=== PATIENT | female | born 1950 | race African-American/Black ===

== ENCOUNTER 2023-07-10 17:11 | Outpatient (NON) | payer MEDICARE, BC, OTHER, SELFPAY ==
[2023-07-10 18:02] LABS: Hemoglobin 8.7 g/dL (12.0-15.0); Mean Corpuscular HGB Conc 31.1 g/dl (32-36); Mean Corpuscular Hemoglobin 28.8 pg (26-34); Mean Corpuscular Volume 92.7 fl (80-100); Mean Platelet Volume 10.6 fl (7.4-10.4); Platelet Count Result 191 k/mm3 (150-375); Red Blood Count 3.02 M/mm3 (4.2-5.4); Red Cell Distribution Width 17.6 % (11.5-14.5); White Blood Count 7.2 K/mm3 (4.5-10.0)
[2023-07-10 18:29] LABS: Alanine Aminotransferase 40 U/L (6-35); Albumin Level 2.8 g/dL (3.5-5.1); Alkaline Phosphatase 90 U/L (38-126); Anion Gap 7 mmol/L (8-16); Aspartate Amino Transferase 50 U/L (14-36); Bilirubin,Total 0.7 mg/dL (0.2-1.3); Blood Urea Nitrogen 22 mg/dL (7-17); CRP 5.2 mg/dL (<1.0); Calcium 7.5 mg/dL (8.4-10.2); Carbon Dioxide 26 mmol/L (22-30); Chloride 104 mmol/L (98-107); Estimated Glomerular Filt Rate 59; Glucose 89 mg/dL (65-110); Potassium 3.1 mmol/L (3.4-5.0); Sodium 137 mmol/L (137-145)
[2023-07-10 18:58] LABS: Band Neutrophils Percent 4 % (0-6); Eosinophils Absolute Manual 0.14 K/mm3 (0.02-0.5); Eosinophils Percent Manual 2 % (0-4); Lymphocytes Absolute Manual 1.44 K/mm3 (1.1-4.5); Monocytes Percent Manual 25 % (3-9); Neutrophils Absolute Manual 3.81 K/mm3 (1.7-7.2); Neutrophils Percent Manual 49 % (46-73); Total Cells Counted 100
[2023-07-10 18:59] LABS: Anisocytosis 2+ (NORMAL); Hypochromasia 1+ (NORMAL); Platelet Estimate Adequate (Adequate); Schistocytes None Seen (NORMAL)
[2023-07-10 19:02] LABS: Erythrocyte Sedimentation Rate 118 mm/hr (0-20)
== END 2023-07-10 17:12 | disposition home or self-care (01) ==
LOC: ANHLAB 17:27 → HOME HLTH 17:29
DX: M00.861 Arthritis due to other bacteria, right knee (principal)
CPT/HCPCS: 80053; 80202; 85025; 85652; 86140

== ENCOUNTER 2023-07-18 07:46 | Emergency (ER) | payer MEDICARE, BC, OTHER, SELFPAY ==
[2023-07-18] VITALS (12 sets, daily range): BP systolic 130–180; BP diastolic 79–98; PULSE 65–90; RESP 9–28; TEMP 36.8; O2SAT 96–100
--- NOTE | ~2023-07-18 | XR_ITS ---
Portable chest x-ray Comparison: 08/27/2019 Clinical History: Cough Findings: Left-sided Mediport in satisfactory position. Lungs are clear, without focal consolidation or pleural effusion. Cardiomediastinal silhouette is stable. Bones and soft tissues are unremarkabl e. Impression: Clear lungs. Left-sided Mediport. Reviewed, dictated and finalized at location . Impression: Clear lungs. Left-sided Mediport.
--- NOTE | ~2023-07-18 | CT_ITS ---
EXAMINATION: CTA chest PE abdomen pel DATE: 07/18/2023 13:17 INDICATION: Shortness of breath. COVID. Elevated d-dimer. TECHNIQUE: Computed tomography (CT) pulmonary angiogram of the chest was performed with 100 mL Omnipa que-350 intravenous contrast. Additional 3D reconstructions utilizing coronal maximum intensity proje ction (MIP) were performed. CT of the abdomen and pelvis was performed with intravenous contrast util izing the same contrast bolus following a short delay. Automated exposure control and iterative recon struction technique were employed. The dose-length product was 1041.96 mGy-cm. COMPARISON: Chest CT dated 09/06/[address] chest, abdomen and pelvis dated 07/10/2016 FINDINGS: Chest: Good contrast opacification of the pulmonary arteries. There is mild streak artifact from dense contr ast in the superior vena cava and right atrium. No significant motion artifact yielding diagnostic qu ality study which demonstrates no pulmonary embolism. There is volume loss in the left lower lobe wit h discoid atelectasis and medial sided compressive atelectasis along the tortuous thoracic aorta. The re are some additional mild discoid atelectasis left lower lobe and mild peripheral atelectasis/scarr ing at the posterior medial right lower lobe. Unchanged 5 mm pleural-based nodule at the posterolater al right lower lobe. No pneumonia, pulmonary edema or pleural effusion. Heart size is normal. Atheros clerotic coronary artery calcification. No pericardial effusion. Left internal jugular central venous port catheter with distal tip in the right atrium. Thoracic aorta is normal in caliber with no disse ction. No pathologically enlarged thoracic lymphadenopathy. Likely benign subcentimeter hypodense lef t thyroid nodule. Moderate thoracic spondylosis with bridging osteophytes at multiple levels consiste nt with diffuse idiopathic skeletal hyperostosis (DISH). Lower cervical anterior spinal fusion with a nterior plate and screw fixation at C5-C7. Abdomen/pelvis: Approximately 2.6 x 2.0 cm geographic region of relatively decreased attenuation along the right port a hepatis most likely related to focal fat. Additional small region of likely focal fat along the lig amentum teres. Subtle small foci of increased attenuation along the dependent wall of the otherwise n ormal-appearing gallbladder likely representing sludge or gallstones. Spleen, pancreas and bilateral adrenal glands are normal. Multiple bilateral nonobstructing renal stones with at least 5 in the left kidney and 8 at the right kidney measuring up to 3 mm maximal diameter. No hydronephrosis or evident stones along the ureters. There are multiple bilateral renal cysts the largest on the right measurin g up to 2.2 cm. Bladder is normal. Sigmoid diverticulosis without adjacent inflammatory change to sug gest diverticulitis. Small bowel and appendix are normal. The uterus is not identified and has likely been surgically resected. No free intraperitoneal gas or fluid. No pathologically enlarged abdominal or pelvic lymphadenopathy. Severe lumbar spondylosis with combined instrumented anterior and posteri or L4-S1 spinal fusion with bilateral vertical dov and pedicle screw fixation. Mild to moderate bilat eral hip osteoarthritis. IMPRESSION: 1. Mild atelectasis in the bilateral lower lungs. No pulmonary embolism or other acute cardiopulmonar y disease. 2. Bilateral nonobstructing nephrolithiasis. 3. Suggestion of sludge or gallstones along the dependent aspect of the otherwise normal-appearing ga llbladder. 4. Mild sigmoid diverticulosis. Reviewed, dictated and finalized at location A. IMPRESSION: 1. Mild atelectasis in the bilateral lower lungs. No pulmonary embolism or othe r acute cardiopulmonary disease. 2. Bilateral nonobstructing nephrolithiasis. 3.
--- NOTE | 2023-07-18 10:34 | ECG_ITS ---
Measurements Intervals [place] Rate: 74 P: 15 [place]: 167 QRS: -7 QRSD: 94 T: 14 QT: 406 QTc: 453 Interpretive Statements SINUS RHYTHM VOLTAGE CRITERIA FOR LVH [MEETS CRITERIA IN ONE OF: R(aVL), S(V1), R(V5), R(V5/V6)+S(V1)] OTHERWISE NORMAL ELECTROCARDIOGRAM NO PREVIOUS ECG AVAILABLE FOR COMPARISON Electronically Signed On 07-18-2023 12:19:31 CDT by Donovan Carpenter M.D.
--- NOTE | 2023-07-18 12:09 | ED.NAVMDI ---
HPI - Nausea/Vomiting/Diarrhea General Chief complaint: Nausea/Vomiting/Diarrhea Stated complaint: N/V Time Seen by Provider: 07/18/23 11:07 Source: patient and RN notes reviewed Mode of arrival: ambulatory Limitations: no limitations History of Present Illness HPI Narrative: This is a 73 year old female with history of rheumatoid arthritis who presents for evaluation of nausea and vomiting. Patient states 1 week ago she was admitted after diagnosis of COVID. She states she was discharged from [facility] but she thinks she was discharged too soon. She has come to ER due to nausea, vomiting and diarrhea for 2 days. She reports mid abdominal pain and shortness of breath as well. She denies chest pain. She reports she was not discharged on medication for covid. She was discharged with a PICC line and it was removed yesterday. She is currently on linezolid oral because her IV doses stopped when PICC line was removed. Related Data Allergies Allergy/AdvReac Type Severity Reaction Status Date / Time acetaminophen Allergy Unknown Unknown Verified 07/18/23 11:38 amlodipine Allergy Unknown Unknown Verified 07/18/23 11:38 banana Allergy Unknown Unknown Verified 07/18/23 11:38 dextromethorphan Allergy Unknown Unknown Verified 07/18/23 11:38 latex Allergy Unknown Unknown Verified 07/18/23 11:38 lisinopril Allergy Unknown Unknown Verified 07/18/23 11:38 Penicillins Allergy Unknown Unknown Verified 07/18/23 11:38 prednisone Allergy Unknown Unknown Verified 07/18/23 11:38 pseudoephedrine Allergy Unknown Unknown Verified 07/18/23 11:38 tetracycline Allergy Unknown Unknown Verified 07/18/23 11:38 tree nut Allergy Unknown Unknown Verified 07/18/23 11:38 aspirin AdvReac Unknown Nausea and Verified 07/18/23 11:38 Vomiting Review of Systems Constitutional: Constitutional: Reports fatigue and Reports weakness Cardiovascular: Cardiovascular: Denies syncope, Denies rapid heart rate, Denies irregular heart rhythm, Reports leg edema and Reports dyspnea Respiratory: Respiratory: Denies chest congestion, Reports cough, Denies hemoptysis, Denies excessive phlegm production and Reports dyspnea Gastrointestinal: Gastrointestinal: Reports abdominal pain, Denies hematochezia, Reports diarrhea, Reports nausea and Reports vomiting Genitourinary: Genitourinary: Denies hematuria and Denies dysuria Musculoskeletal: Musculoskeletal: Denies joint swelling, Denies loss of height and Denies muscle weakness Neurologic: Denies syncope, Denies focal weakness and Denies weakness PMFSH Past Medical History Medical History (Updated 07/18/23 @ 15:39 by Dianne Pollock MD) DVT (deep venous thrombosis) Hyperlipidemia Hypertension Rheumatoid arthritis Surgical History Surgical History (Updated 07/18/23 @ 12:15 by Dianne Pollock MD) H/O: hysterectomy Social History Social History (Updated 07/18/23 @ 12:15 by Dianne Pollock MD) Smoking status: Never smoker Exam Const: General: no acute distress, alert and ill appearing Orientation/consciousness: patient oriented x3 HENMT: Head: normal to inspection Face and sinus: normal facial exam Throat: posterior oropharynx normal and uvula midline Eyes: EOM: EOMs intact bilaterally Chest: Chest palpation & inspection: normal inspection of the chest Resp: Effort & Inspection: normal respiratory effort Auscultation: clear to auscultation bilaterally Cardio: Rate: regular rate Rhythm: regular rhythm Heart sounds: no murmurs GI: GI Palp: Yes Soft to palpation, Yes Tenderness to palpation present (GI), No Guarding due to palpation present (GI) and No Rigid due to palpation Auscultation: normal bowel sounds Back/Spine/Pelvis: Back: no CVA tenderness Skin: General skin exam: normal color Wounds: no wounds Neuro: General: patient oriented x3, moves all extremities and CN's II-XI intact bilaterally Extrem: General: normal to inspection Psych: Mental Status: mental status grossly
[2023-07-18 12:25] LABS: Basophils Absolute Auto 0.1 K/mm3 (0.0-0.1); Basophils Percent Auto 1.1 % (0.2-1.2); Eosinophils Absolute Auto 0.3 K/mm3 (0-0.3); Eosinophils Percent Auto 2.3 % (0-4.4); Hematocrit 27.8 % (37.0-47.0); Immature Granulocyte Absolute 0.49 K/mm3 (0.00-0.031); Immature Granulocyte Percent A 3.8 % (0-0.5); Lymphocytes Absolute Auto 3.68 K/mm3 (0.9-3.2); Lymphocytes Percent Auto 28.3 % (18.3-44.2); Mean Corpuscular HGB Conc 32.4 g/dl (32-36); Mean Corpuscular Hemoglobin 29.4 pg (26-34); Mean Corpuscular Volume 90.8 fl (80-100); Mean Platelet Volume 10.5 fl (7.4-10.4); Monocytes Absolute Auto 1.7 K/mm3 (0.1-0.6); Monocytes Percent Auto 12.8 % (2.6-8.5); Neutrophils Absolute Auto 6.7 K/mm3 (1.3-6.7); Neutrophils Percent Auto 51.7 % (45.5-73.1); Platelet Count Result 282 k/mm3 (150-375); Red Blood Count 3.06 M/mm3 (4.2-5.4); Red Cell Distribution Width 17.8 % (11.5-14.5)
[2023-07-18] MEDS: ONDANSETRON INJ 4 MG/2 ML VIAL IV PUSH (12:33)
[2023-07-18] MEDS: LACTATED RINGERS 1,000 ML 999 ML IV CONT (12:34)
[2023-07-18 12:35] LABS: Lipase 23 U/L (23-300)
[2023-07-18 12:35] LABS: Lactic Acid Reflex 0.9 mmol/L (0.7-2.0)
[2023-07-18 12:36] LABS: Alanine Aminotransferase 35 U/L (6-35); Albumin Level 3.1 g/dL (3.5-5.1); Alkaline Phosphatase 102 U/L (38-126); Anion Gap 9 mmol/L (8-16); Aspartate Amino Transferase 46 U/L (14-36); Bilirubin,Total 0.6 mg/dL (0.2-1.3); Blood Urea Nitrogen 13 mg/dL (7-17); Calcium 7.3 mg/dL (8.4-10.2); Carbon Dioxide 25 mmol/L (22-30); Chloride 105 mmol/L (98-107); Estimated CRCL calculation 35 ml/min; Estimated Glomerular Filt Rate 49; Glucose 98 mg/dL (65-110); Magnesium 1.3 mg/dL (1.6-2.3); Potassium 3.2 mmol/L (3.4-5.0); Sodium 139 mmol/L (137-145)
[2023-07-18 12:39] LABS: INR 1.1; Prothrombin Time 14.3 Seconds (11.1-14.7)
--- NOTE | 2023-07-18 12:45 | PC.NURSE ---
pt refuses straight cath for urine specimen.
[2023-07-18] MEDS: MAGNESIUM SULF 2 GM/WATER 50ML 2 GM/50 ML BAG IVPB (13:33)
[2023-07-18 13:35] LABS: Appearance Urine Cloudy (Clear); Bacteria Urine None Seen /hpf; Bilirubin Urine Negative (Negative); Color Urine Dark Yellow (Yellow); Glucose Urine UA Negative (Negative); Hyaline Casts Urine Present /lpf; Ketones Urine 1+ mg/dL (Negative); Leukocyte Esterase Ur 1+ LEU/UL (Negative); Nitrate Urine Negative (Negative); Protein Urine 2+ mg/dL (Negative); RBC Urine 0-2 /hpf (0-2); Specific Grav Ur 1.017 (1.001-1.035); Squamous Epithelial Cell Urine Few /hpf (Few); Urobilinogen Urine 0.2 mg/dL (<2.0); WBC Urine 21-50 /hpf; pH Urine 5.5 (5.0-9.0)
[2023-07-18 13:36] LABS: Add Urine Microscopic? YES
[2023-07-18] MEDS: POTASSIUM CHLORIDE 20 MEQ ER TABLET 40 MEQ PO (14:13)
[2023-07-18] MEDS: HEPARIN SODIUM LOCK FLUSH 500 UNITS/5 ML VIAL (16:03)
== END 2023-07-18 16:15 | disposition home or self-care (01) ==
PROVIDERS: Emergency Provider General Practice
DX: K52.9 Noninfective gastroenteritis and colitis, unspecified (principal); E87.6 Hypokalemia; E83.42 Hypomagnesemia; E78.5 Hyperlipidemia, unspecified; I10 Essential (primary) hypertension; M06.9 Rheumatoid arthritis, unspecified; Z86.16 Personal history of COVID-19; Z86.718 Personal history of other venous thrombosis and embolism; Z90.710 Acquired absence of both cervix and uterus; K57.30 Diverticulosis of large intestine without perforation or abscess without bleeding; N20.0 Calculus of kidney
CPT/HCPCS: 36415; 71045; 71275; 74177; 80053; 81001; 83605; 83690; 83735; 85025; 85380; 85610; 85730; 87086; 93005; 96361; 96365; 96375; 99284; A9270; J1642; J2405; J3475; J7120; Q9967

== ENCOUNTER 2023-07-19 19:08 | Outpatient (NON) | payer MEDICARE, BC, OTHER, SELFPAY ==
[2023-07-19 19:51] LABS: Alanine Aminotransferase 31 U/L (14-59); Albumin Level 2.3 g/dL (3.4-5.0); Alkaline Phosphatase 104 U/L (46-116); Anion Gap 11 mmol/L (8-16); Aspartate Amino Transferase 29 U/L (15-37); Bilirubin,Total 0.4 mg/dL (0.00-1.00); Blood Urea Nitrogen 14 mg/dL (7-18); CRP 6.9 mg/dL (0.0-0.9); Calcium 7.7 mg/dL (8.5-10.1); Carbon Dioxide 27 mmol/L (21-32); Chloride 103 mmol/L (98-108); Estimated Glomerular Filt Rate 35; Glucose 120 mg/dL (70-99); Osmolality Calculated 293 mOsm/kg (285-295); Potassium 3.2 mmol/L (3.5-5.1); Sodium 141 mmol/L (136-145); Total Protein 7.4 g/dL (6.4-8.2)
== END 2023-07-19 19:09 | disposition home or self-care (01) ==
LOC: CHSLAB 19:12
DX: M00.861 Arthritis due to other bacteria, right knee (principal)
CPT/HCPCS: 36415; 80053; 86140

== ENCOUNTER → 2023-10-04 12:23 | Outpatient (CLI) | payer MEDICARE, BC, OTHER, SELFPAY ==
--- NOTE | ~2023-10-04 | XR_ITS ---
EXAM: XR hand LT 2V, XR hand RT 2V, XR wrist LT 2V, XR wrist RT 2V DATE: 10/04/2023 13:48 HISTORY: multiple joint pain . COMPARISON: None available. FINDINGS: Decreased mineralization. No fracture or dislocation. No lytic or blastic lesion. Osteoart hritic type degenerative changes in the hands and wrists most notably in the DIP joints of the finger s and interphalangeal joints of the thumbs. Old erosive change in the bilateral ulnar styloids. No ac cynthia erosion or periosteal change. Soft tissues within normal limits. IMPRESSION: Polyarticular osteoarthritis. No radiographic findings of active inflammatory arthropathy . Reviewed, dictated and finalized at location K. TRICAL SYSTEMS DRAFTER IMPRESSION: Polyarticular osteoarthritis. No radiographic findings of active in flammatory arthropathy. IMPRESSION: Polyarticular osteoarthritis. No radiographic findings of active in flammatory arthropathy. IMPRESSION: Polyarticular osteoarthritis. No radiographic findings of active in flammatory arthropathy.
--- NOTE | ~2023-10-04 | XR_ITS ---
EXAM: XR ankle RT 2V, XR ankle LT 2V DATE: 10/04/2023 13:48 HISTORY: multiple joint pain . COMPARISON: None available. FINDINGS: Decreased mineralization. No fracture or dislocation. No lytic or blastic lesion. Achilles and plantar enthesopathy Mild degenerative change at the ankle joints. No erosion or periosteal [place]. Vascular calcifications. IMPRESSION: No acute osseous finding in the left or right ankles. Reviewed, dictated and finalized at location K. ACE GRINDER IMPRESSION: No acute osseous finding in the left or right ankles.
--- NOTE | ~2023-10-04 | XR_ITS ---
Right foot Technique: AP and lateral views were obtained. Clinical History: Joint pain Findings: No acute fracture or dislocation is seen. Osseous alignment is anatomic. Joint spaces are p reserved without erosive or degenerative change. Soft tissues are unremarkable. Impression: Unremarkable right foot radiographs. Reviewed, dictated and finalized at location . & BOARD DIRECTOR Impression: Unremarkable right foot radiographs.
--- NOTE | ~2023-10-04 | XR_ITS ---
EXAM: XR foot LT 2V DATE: 10/04/2023 13:48 HISTORY: multiple joint pain . COMPARISON: None available. FINDINGS: Decreased mineralization. No fracture or dislocation. No lytic or blastic lesion. Mild sca ttered degenerative change. Achilles and plantar enthesopathy No erosion or periosteal change. Vascul ar calcifications. IMPRESSION: No acute osseous finding in the left foot. Reviewed, dictated and finalized at location K. PERSON
== END ==
DX: M19.042 Primary osteoarthritis, left hand (principal); M19.041 Primary osteoarthritis, right hand; M19.032 Primary osteoarthritis, left wrist; M19.031 Primary osteoarthritis, right wrist; M79.672 Pain in left foot; M79.671 Pain in right foot; M25.572 Pain in left ankle and joints of left foot; M25.571 Pain in right ankle and joints of right foot; M79.10 Myalgia, unspecified site; R53.81 Other malaise
CPT/HCPCS: 73100; 73120; 73600; 73620

== ENCOUNTER 2024-03-12 23:23 | Emergency (ER) | payer MEDICARE, BC, OTHER, SELFPAY ==
--- NOTE | ~2024-03-12 | CT_ITS ---
EXAMINATION: CT brain wo con DATE: 03/12/2024 23:56 INDICATION: fall on eliquis . TECHNIQUE: Computed tomography (CT) of the head was performed without intravenous contrast. The mA wa s adjusted according to patient size. Iterative reconstruction technique was employed. The dose-lengt h product was 605.33 mGy-cm. COMPARISON: 09/06/2019, report only. FINDINGS: No acute intracranial hemorrhage or extra-axial fluid collection. No hydrocephalus, mass, or herniation. No acute ischemic infarct. Unremarkable dural venous sinus attenuation. No acute osseous abnormality. The aerated spaces are clear. Mild atrophy and moderate chronic white matter change. Atherosclerotic intracranial calcification. Bi lateral lens replacements. Bilateral basal ganglia calcification. IMPRESSION: No acute intracranial process. Reviewed, dictated and finalized at location K.
--- NOTE | ~2024-03-12 | CT_ITS ---
EXAMINATION: CT cervical spine wo con DATE: 03/12/2024 23:57 INDICATION: fall on eliquis TECHNIQUE: Computed tomography (CT) of the cervical spine was performed without intravenous contrast. Automated exposure control and iterative reconstruction technique were employed. The dose-length pro duct was 202.36 mGy-cm. COMPARISON: 08/27/2019, report only. FINDINGS: Vertebral Body Alignment: Reversed lordosis, centered at C5. Trace grade 1 retrolisthesis at C2-3, li ana secondary to degenerative change. Minimal grade 1 anterolistheses at C3-4 and C4-5, likely secon markell to degenerative change. Craniocervical and atlantoaxial alignment: Moderate degenerative change. Alignment intact. Osseous structures/fracture: No evidence of a lytic or blastic process in the visualized spine. No e vidence of acute fracture. Uncomplicated appearing ACDF hardware spanning C5-C7 with fused interbody plugs at C5-6 and C6-7. Multilevel facet fusions. Minimal right mastoid fluid. Cervical soft tissues: The paraspinal soft tissues planes are maintained. Degenerative changes: Multilevel degenerative disc disease and facet arthropathy. No severe central c anal or neural foraminal narrowing IMPRESSION: No acute fracture or traumatic malalignment in the cervical spine. Reviewed, dictated and finalized at location K.
[2024-03-12 23:26] VITALS: BP 132/79; PULSE 87; RESP 13; TEMP 36.4; O2SAT 100
[2024-03-13 02:18] VITALS: BP 136/78; PULSE 83; RESP 18; O2SAT 100
--- NOTE | 2024-03-13 04:15 | ED.FALL ---
HPI - Fall General Chief Complaint: Fall Stated Complaint: fall, on eliquis Time Seen by Provider: 03/13/24 04:08 History of Present Illness HPI Narrative: Patient is a 73-year-old female who presents to the emergency department this evening from her recent care facility due to a slip and fall. Patient admits that she caught herself and did not hit her head, however, given that she is on Eliquis facility is required to have the patient evaluated in the emergency department. Patient is currently denying any headaches, dizziness, any neck pain and denies any lightheadedness or syncopal episodes prior to the fall. Patient admits that she remembers the full event and denies any loss of consciousness. No additional symptoms or concerns at this time. Related Data Allergies Allergy/AdvReac Type Severity Reaction Status Date / Time acetaminophen Allergy Unknown Unknown Verified 07/18/23 11:38 amlodipine Allergy Unknown Unknown Verified 07/18/23 11:38 banana Allergy Unknown Unknown Verified 07/18/23 11:38 dextromethorphan Allergy Unknown Unknown Verified 07/18/23 11:38 latex Allergy Unknown Unknown Verified 07/18/23 11:38 lisinopril Allergy Unknown Unknown Verified 07/18/23 11:38 Penicillins Allergy Unknown Unknown Verified 07/18/23 11:38 prednisone Allergy Unknown Unknown Verified 07/18/23 11:38 pseudoephedrine Allergy Unknown Unknown Verified 07/18/23 11:38 tetracycline Allergy Unknown Unknown Verified 07/18/23 11:38 tree nut Allergy Unknown Unknown Verified 07/18/23 11:38 aspirin AdvReac Unknown Nausea and Verified 07/18/23 11:38 Vomiting Review of Systems Review of Systems: All systems are reviewed and are negative unless stated otherwise in the HPI. [facility] Past Medical History Medical History DVT (deep venous thrombosis) Hyperlipidemia Hypertension Rheumatoid arthritis Surgical History Surgical History H/O: hysterectomy Social History Social History Smoking status: Never smoker Exam Narrative: General: Alert, awake, afebrile, in no acute distress. HEENT: PERRL, no rhinorrhea, no post nasal drip, oropharynx clear. Neck: Trachea midline, no JVD, no lymphadenopathy, no midline cervical spine tenderness to palpation. Cardiovascular: Regular rate and rhythm, no murmurs, rubs or gallops, no peripheral edema. Respiratory: Clear to auscultation bilaterally, no tachypnea, no wheezing, no rhonchi, no rubs, no respiratory distress. Abdomen: Soft, nontender, nondistended, no rebound, no guarding, no peritoneal signs. Musculoskeletal: No joint swelling or deformity, normal muscle tone. Skin: No rashes or petechia, no signs of infection. Psychiatric: Alert and oriented, normal behavior and judgment for situation. Neurological: Alert and oriented to person, place, and time. Follows all commands. No focal deficits, speech is clear and fluent. Course Vital Signs Vital signs: Vital Signs Temperature 97.6 F 03/12/24 23:26 Pulse Rate 87 03/12/24 23:26 Respiratory Rate 13 03/12/24 23:26 Blood Pressure 132/79 03/12/24 23:26 Pulse Oximetry 100 03/12/24 23:26 Oxygen Delivery Room Air 03/12/24 23:26 Temperature 97.6 F 03/12/24 23:26 Pulse Rate 83 03/13/24 02:18 Respiratory Rate 18 03/13/24 02:18 Blood Pressure 136/78 03/13/24 02:18 Pulse Oximetry 100 03/13/24 02:18 Oxygen Delivery Room Air 03/12/24 23:26 MDM - Fall MDM Narrative Medical decision making narrative: The patient was evaluated by myself in the emergency department. History is obtained from patient who is an independent historian and physical exam was performed. External medical records were reviewed at this time. Imaging studies obtained included CT brain and cervical spine without IV contrast which was independently interpreted by me revealing no
[2024-03-13 05:12] VITALS: BP 126/65; PULSE 88; RESP 16; O2SAT 97
--- NOTE | 2024-03-13 05:15 | PC.NURSE ---
RN Report given to [place] @ [facility]
--- NOTE | 2024-03-13 05:24 | PC.NURSE ---
Report given to [facility] at this time. No distress noted.
== END 2024-03-13 05:23 ==
PROVIDERS: Emergency Provider Emergency Medicine; PCP Internal Medicine
DX: Z04.3 Encounter for examination and observation following other accident (principal); E78.5 Hyperlipidemia, unspecified; I10 Essential (primary) hypertension; M06.9 Rheumatoid arthritis, unspecified; Z86.73 Personal history of transient ischemic attack (TIA), and cerebral infarction without residual deficits; Z90.710 Acquired absence of both cervix and uterus; W01.0XXA Fall on same level from slipping, tripping and stumbling without subsequent striking against object, initial encounter
CPT/HCPCS: 70450; 72125; 99284

== ENCOUNTER 2024-04-30 04:15 | Emergency (ER) | payer MEDICARE, BC, OTHER, SELFPAY ==
[2024-04-30] VITALS (36 sets, daily range): BP systolic 139–171; BP diastolic 80–111; PULSE 85–94; RESP 13–35; TEMP 36.2–37.3; O2SAT 97–100
--- NOTE | ~2024-04-30 | XR_ITS ---
Right foot Technique: AP, oblique, and lateral views were obtained. Clinical History: Trauma Findings: No acute fracture or dislocation is seen. Osseous alignment is anatomic. Joint spaces are p reserved without erosive or degenerative change. Soft tissues are unremarkable. Impression: Unremarkable right foot radiographs. Reviewed, dictated and finalized at location . Impression: Unremarkable right foot radiographs.
--- NOTE | ~2024-04-30 | CT_ITS ---
Non-contrast Head CT History: Weakness COMPARISON: 03/12/2024 Technique: Axial non-contrast imaging of the brain was performed. Dose reduction technique was used on this scan by utilizing automated exposure control and iterative reconstruction technique. The dose -length product (DLP) was 605.33 mGy-cm. Findings: There is no evidence of intracranial hemorrhage, mass lesion, or acute infarct. Brain par enchyma appears normal. The ventricles and subarachnoid spaces are normal in size. The calvarium ap pears normal. The visualized paranasal sinuses and mastoid air cells are clear. Impression: No significant abnormality seen. Reviewed, dictated and finalized at location . Impression: No significant abnormality seen.
--- NOTE | ~2024-04-30 | XR_ITS ---
Portable chest x-ray Comparison: 07/18/2023 Clinical History: Weakness Findings: Left-sided Mediport is unchanged. Lungs are clear, without focal consolidation or pleural effusion. Cardiomediastinal silhouette is stable. Bones and soft tissues are unremarkable, aside fro m cervical fixation hardware. Impression: Clear lungs. Stable left-sided Mediport. Reviewed, dictated and finalized at location . Impression: Clear lungs. Stable left-sided Mediport.
--- NOTE | ~2024-04-30 | XR_ITS ---
AP view of the pelvis Clinical history: Pain Findings: No acute fracture or dislocation is seen. Osseous alignment is anatomic. Bilateral hip and SI joint spaces are preserved. Lumbosacral spinal fixation hardware is present. Soft tissues are unre markable. Impression: No acute abnormality seen. Lumbosacral spinal fixation hardware. Reviewed, dictated and finalized at location . Impression: No acute abnormality seen. Lumbosacral spinal fixation hardware.
--- NOTE | ~2024-04-30 | XR_ITS ---
EXAM: XR knee RT 3V DATE: 04/30/2024 18:09 HISTORY: fall . COMPARISON: None available. FINDINGS: Decreased mineralization. No fracture or dislocation. No lytic or blastic lesion. Moderate osteoarthritic arthritis. Quadriceps enthesopathy. No erosion or periosteal change. Large volume lee nt fluid. Vascular calcification. IMPRESSION: No acute osseous finding in the right knee. Large right knee joint effusion. Reviewed, dictated and finalized at location K.
--- NOTE | ~2024-04-30 | XR_ITS ---
EXAM: XR knee LT 3V DATE: 04/30/2024 18:08 HISTORY: fall . COMPARISON: None available. FINDINGS: Decreased mineralization. No osseous fracture or dislocation. No lytic or blastic lesion. Left total knee arthroplasty hardware. No hardware fracture. Abnormal perihilar hardware lucency surr ounding the stem of the femoral component, measuring up to 4 mm. No erosion or periosteal change. Vas cular calcifications. Moderate joint fluid. IMPRESSION: No acute osseous or hardware fracture. Perihilar hardware lucency at the femoral stem which can accompany loosening or infection. Recommend comparison to outside studies. Moderate volume joint fluid. Reviewed, dictated and finalized at location K.
--- NOTE | 2024-04-30 04:41 | ECG_ITS ---
Test Date: 2024-04-30 04:23:25 Measurements Intervals [place] Rate: 88 P: 24 CT: 150 QRS: -2 QRSD: 90 T: 15 QT: 365 QTc: 443 Interpretive Statements SINUS RHYTHM MODERATE VOLTAGE CRITERIA FOR LVH, CONSIDER NORMAL VARIANT [MEETS CRITERIA IN ONE OF: R(aVL), S(V1), R(V5), R(V5/V6)+S(V1)] No previous ECG available for comparison Electronically Signed On 04-30-2024 10:53:22 CDT by Pamella Collado M.D.
--- NOTE | 2024-04-30 04:43 | ED.GENADULT ---
HPI - General Adult General Chief complaint: Weakness <Donovan Esposito MD - Last Filed: 04/30/24 06:53> Stated complaint: gen weakness, warm to touch <Donovan Esposito MD - Last Filed: 04/30/24 06:53> Time Seen by Provider: 04/30/24 04:24 <Donovan Esposito MD - Last Filed: 04/30/24 06:53> Source: patient <Donovan Esposito MD - Last Filed: 04/30/24 06:53> Mode of arrival: ambulatory <Donovan Esposito MD - Last Filed: 04/30/24 06:53> Limitations: no limitations <Donovan Esposito MD - Last Filed: 04/30/24 06:53> History of Present Illness HPI narrative: 73-year-old female presenting after multiple falls over the last 10 days or so. Has been feeling very weak whenever she stands up and has been calling 911 for lift assist almost daily for the last 10 days. Finally she decided To come be evaluated. She says she feels generally weak when she stands up that that causes her does fall down. Does not feel lightheaded. No nausea or vomiting. Had 1 episode diarrhea. <Donovan Esposito MD - Last Filed: 04/30/24 06:53> Related Data Allergies/adverse reactions: Allergies Allergy/AdvReac Type Severity Reaction Status Date / Time acetaminophen Allergy Unknown Unknown Verified 04/30/24 07:23 amlodipine Allergy Unknown Unknown Verified 04/30/24 07:23 banana Allergy Unknown Unknown Verified 04/30/24 07:23 dextromethorphan Allergy Unknown Unknown Verified 04/30/24 07:23 latex Allergy Unknown Unknown Verified 04/30/24 07:23 lisinopril Allergy Unknown Unknown Verified 04/30/24 07:23 Penicillins Allergy Unknown Unknown Verified 04/30/24 07:23 prednisone Allergy Unknown Unknown Verified 04/30/24 07:23 pseudoephedrine Allergy Unknown Unknown Verified 04/30/24 07:23 tetracycline Allergy Unknown Unknown Verified 04/30/24 07:23 tree nut Allergy Unknown Unknown Verified 04/30/24 07:23 aspirin AdvReac Unknown Nausea and Verified 04/30/24 07:23 Vomiting <Donovan Esposito MD - Last Filed: 04/30/24 06:53> Review of Systems Review of Systems: All systems reviewed & are unremarkable except as noted in HPI and below <Donovan Esposito MD - Last Filed: 04/30/24 06:53> [facility] Past Medical History Medical History: Medical History DVT (deep venous thrombosis) Hyperlipidemia Hypertension Rheumatoid arthritis <Donovan Esposito MD - Last Filed: 04/30/24 06:53> Surgical History Surgical History: Surgical History H/O: hysterectomy <Donovan Esposito MD - Last Filed: 04/30/24 06:53> Social History Social History: Social History Smoking status: Never smoker <Donovan Esposito MD - Last Filed: 04/30/24 06:53> Exam Narrative: Constitutional: Generally well appearing, no acute distress Head: Atraumatic, no deformities. Eyes: Pupils equal, round, and reactive to light. Neck: Supple, no tracheal deviation, no JVD. ENMT: Mucous membranes moist Cardiovascular: S1, S2 auscultated. No murmurs, rubs, or gallops. No S3/S4. Normal Distal pulses. No peripheral edema. Respiratory: Lung sounds equal. No wheezes, rales, or rhonchi. Gastrointestinal: Abdomen was soft and non-tender. Non-distended. No rebound or guarding. Genitourinary: Deferred Musculoskeletal: Normal muscle tone and bulk. No obvious deformities or tenderness over extremities. Skin: No rashes. Neurological: Strength 5/5 in extremities. Cranial nerves I-XII grossly intact. Distal sensation intact. Mental Status: Awake, alert and oriented x3. Follows commands <Donovan Esposito MD - Last Filed: 04/30/24 06:53> Course Course Emergency Course: had discussion with patient about placement is facility. She has no interest as she just went home from one. Pt says she has home health coming next week to assist her. <Josephine
[2024-04-30 04:58] LABS: Basophils Absolute Auto 0.1 K/mm3 (0.0-0.1); Basophils Percent Auto 0.7 % (0.2-1.2); Eosinophils Absolute Auto 0.2 K/mm3 (0-0.3); Eosinophils Percent Auto 2.1 % (0-4.4); Hematocrit 23.7 % (37.0-47.0); Hemoglobin 7.4 g/dL (12.0-15.0); Immature Granulocyte Absolute 0.15 K/mm3 (0.00-0.031); Immature Granulocyte Percent A 1.7 % (0-0.5); Lymphocytes Absolute Auto 2.55 K/mm3 (0.9-3.2); Lymphocytes Percent Auto 29.7 % (18.3-44.2); Mean Corpuscular HGB Conc 31.2 g/dl (32-36); Mean Corpuscular Hemoglobin 28.7 pg (26-34); Mean Corpuscular Volume 91.9 fl (80-100); Mean Platelet Volume 8.9 fl (7.4-10.4); Monocytes Absolute Auto 0.9 K/mm3 (0.1-0.6); Monocytes Percent Auto 9.9 % (2.6-8.5); Neutrophils Absolute Auto 4.8 K/mm3 (1.3-6.7); Neutrophils Percent Auto 55.9 % (45.5-73.1); Platelet Count Result 480 k/mm3 (150-375); Red Blood Count 2.58 M/mm3 (4.2-5.4); Red Cell Distribution Width 14.8 % (11.5-14.5); White Blood Count 8.6 K/mm3 (4.5-10.0)
[2024-04-30 05:08] LABS: Alanine Aminotransferase 9 U/L (6-35); Albumin Level 3.2 g/dL (3.5-5.1); Alkaline Phosphatase 83 U/L (38-126); Anion Gap 6 mmol/L (4-12); Aspartate Amino Transferase 29 U/L (14-36); Bilirubin,Total 0.7 mg/dL (0.2-1.3); Blood Urea Nitrogen 17 mg/dL (7-17); Calcium 9.1 mg/dL (8.4-10.2); Carbon Dioxide 23 mmol/L (22-30); Chloride 106 mmol/L (98-107); Estimated CRCL calculation 75 ml/min; Estimated Glomerular Filt Rate > 60; Glucose 112 mg/dL (65-110); Lipase 25 U/L (23-300); Potassium 3.1 mmol/L (3.4-5.0); Sodium 135 mmol/L (137-145)
[2024-04-30 05:09] LABS: INR 1.5; Prothrombin Time 18.7 Seconds (11.1-14.7)
[2024-04-30 05:10] LABS: Partial Thromboplastin Time 44.4 Seconds (22.3-36.8)
[2024-04-30 05:19] LABS: NT Pro B Type Natriuretic Pept 125 pg/mL (19.9-100); Troponin I 0.022 ng/mL (0.000-0.034)
[2024-04-30] MEDS: POTASSIUM CHLORIDE 20 MEQ ER TABLET 40 MEQ PO (06:40)
[2024-04-30 07:01] LABS: Appearance Urine Clear (Clear); Bacteria Urine None Seen /hpf; Bilirubin Urine Negative (Negative); Blood Urine Negative (Negative); Color Urine Yellow (Yellow); Glucose Urine UA Negative (Negative); Ketones Urine Trace mg/dL (Negative); Leukocyte Esterase Ur Negative LEU/UL (Negative); Mucus Urine Present /lpf; Nitrate Urine Negative (Negative); Protein Urine 1+ mg/dL (Negative); RBC Urine 0-2 /hpf (0-2); Squamous Epithelial Cell Urine None Seen /hpf (Few); WBC Urine 0-5 /hpf (0-3); pH Urine 5.5 (5.0-9.0)
[2024-04-30 07:05] LABS: Add Urine Microscopic? YES
[2024-04-30] MEDS: KETOROLAC 15 MG/ML VIAL (*BKC) IV PUSH (07:37)
--- NOTE | 2024-04-30 11:14 | PC.NURSE ---
REPORT TO CARLOS MEZA. CARE TRANSFERRED
[2024-04-30] MEDS: SODIUM CHLORIDE 0.9% IV 250 ML 30 ML IV CONT (15:16)
[2024-04-30] MEDS: fentaNYL CITRATE INJ (*CRX) 100 MCG/2 ML VIAL 25 MCG IV PUSH (15:18)
== END 2024-04-30 19:27 | disposition home or self-care (01) ==
PROVIDERS: Emergency Medicine; Emergency Provider Emergency Medicine; PCP Internal Medicine
DX: R53.1 Weakness (principal); R29.6 Repeated falls; I10 Essential (primary) hypertension; E78.5 Hyperlipidemia, unspecified; M06.9 Rheumatoid arthritis, unspecified; Z96.652 Presence of left artificial knee joint; Z86.718 Personal history of other venous thrombosis and embolism; Z90.710 Acquired absence of both cervix and uterus; Z79.01 Long term (current) use of anticoagulants; Z79.899 Other long term (current) drug therapy; R93.6 Abnormal findings on diagnostic imaging of limbs
CPT/HCPCS: 36415; 36430; 70450; 71045; 72170; 73562; 73630; 80053; 81001; 83690; 83880; 84484; 85025; 85610; 85730; 86850; 86860; 86870; 86880; 86900; 86901; 86902; 86922; 93005; 96361; 96374; 96375; 99285; A9270; J1885; J3010; J7050; P9016

== ENCOUNTER 2024-04-30 21:59 | Observation (INO) | payer MEDICARE, BC, OTHER, SELFPAY ==
--- NOTE | ~2024-04-30 | CT_ITS ---
CT OF right knee EXAMINATION: CT knee RT wo con DATE: 04/30/2024 22:50 INDICATION: Right knee pain TECHNIQUE: Computed tomography (CT) of the right knee was performed without intravenous contrast. Aut omated exposure control and iterative reconstruction technique were employed. The dose-length product was 628.44 mGy-cm. COMPARISON: X-ray right knee, same date FINDINGS: Examination limited by metallic artifact from the contralateral knee arthroplasty hardware. Decreased mineralization. No fracture. Lateral subluxation of the patella. Severe medial joint space narrowing. Mild tricompartmental osteophytosis. Large volume knee joint fluid. Atherosclerotic arter ial calcifications. IMPRESSION: No acute osseous finding in the right knee. Osteopenia. Tricompartmental arthritic change, severe in the medial compartment. Large joint effusion. Reviewed, dictated and finalized at location K. IMPRESSION: No acute osseous finding in the right knee. Osteopenia. Tricompartmental arthri tic change, severe in the medial compartment. Large joint effusion.
--- NOTE | ~2024-04-30 | US_ITS ---
EXAMINATION: US knee asp inj w image RT DATE: 05/01/2024 14:57 INDICATION: Right knee infection TECHNIQUE: The procedure including the risks, benefits, and alternatives was discussed with the patie nt. Risks discussed included bleeding, infection and allergic reaction. The patient understood the ri sks and agreed to proceed. A timeout was performed to verify the patient's name, date of , an d procedure to be performed. The skin overlying the suprapatellar pouch of the right joint was prepp ed and draped in usual sterile fashion. Anesthetic was administered with 1% lidocaine subcutaneously . An 18 gauge spinal needle was then advanced into the suprapatellar pouch of the joint space under continuous sonographic guidance.. Multiple attempts at aspiration were made at multiple locations wit hin the suprapatellar pouch which yielded no fluid. The entry site was cleaned and dressed. There we re no immediate complications. FINDINGS: Ultrasound images demonstrate a mild distention of the suprapatellar pouch with central hypoechogenic ity but yielding no fluid consistent with prominent synovitis without a drainable effusion. IMPRESSION: 1. Successful needle access of the suprapatellar pouch of the right knee joint which is mildly disten ded with hypoechoic synovitis but which yielded no fluid on attempted aspiration. Reviewed, dictated and finalized at location A. IMPRESSION: 1. Successful needle access of the suprapatellar pouch of the right knee joint which is mildly distended with hypoechoic synovitis but which yielded no fluid on attempted aspiration.
--- NOTE | ~2024-04-30 | US_ITS ---
BILATERAL LOWER EXTREMITY VENOUS ULTRASOUND Ordering provider: Tiffany Moon APRN History: . R/O DVT/Pain/HX DVT . Comparison: None. FINDINGS: RIGHT LOWER EXTREMITY VEINS: --COMMON FEMORAL: Patent and free of thrombus. Normal compressibility, phasic flow and augmentation. --PROXIMAL SUPERFICIAL FEMORAL: Patent and free of thrombus. Normal compressibility, phasic flow and augmentation. --DISTAL SUPERFICIAL FEMORAL: Patent and free of thrombus. Normal compressibility, phasic flow and au gmentation. --POPLITEAL: Patent and free of thrombus. Normal compressibility, phasic flow and augmentation. --POSTERIOR TIBIAL: Patent and free of thrombus. Normal compressibility, phasic flow and augmentation . LEFT LOWER EXTREMITY VEINS: --COMMON FEMORAL: Patent and free of thrombus. Normal compressibility, phasic flow and augmentation. --PROXIMAL SUPERFICIAL FEMORAL: Patent and free of thrombus. Normal compressibility, phasic flow and augmentation. --DISTAL SUPERFICIAL FEMORAL: Patent and free of thrombus. Normal compressibility, phasic flow and au gmentation. --POPLITEAL: Patent and free of thrombus. Normal compressibility, phasic flow and augmentation. --POSTERIOR TIBIAL: Patent and free of thrombus. Normal compressibility, phasic flow and augmentation . IMPRESSION: Negative bilateral lower extremity venous US. No deep vein thrombosis. Reviewed, dictated and finalized at location A.
--- NOTE | ~2024-04-30 | CT_ITS ---
EXAMINATION: CT pelvis wo con DATE: 04/30/2024 22:44 INDICATION: Right hip pain TECHNIQUE: Computed tomography (CT) of the pelvis was performed without intravenous contrast. Automat ed exposure control and iterative reconstruction technique were employed. The dose-length product was 134.44 mGy-cm. COMPARISON: Pelvis, same date; CTPA with abdomen pelvis 07/18/2023 FINDINGS: Uncomplicated posterior lumbar fusion hardware. Atherosclerotic arterial calcifications. De generative changes in the bilateral SI joints, bilateral hips, and pubic symphysis. No fracture or di slocation. No lytic or blastic lesion. Scattered colonic diverticuli without diverticulosis. IMPRESSION: No acute osseous finding in the pelvis or hips. Reviewed, dictated and finalized at location K.
--- NOTE | ~2024-04-30 | XR_ITS ---
EXAMINATION: XR chest 1V portable Exam Date/Time: 04/30/2024 22:15 CDT HISTORY: Fever Comparison: 04/30/2024 at 5:25 AM. FINDINGS/IMPRESSION: Left chest implanted port remains in stable and good position. No acute cardiopulmonary process detec abdi. Reviewed, dictated and finalized at [facility] K.
[2024-04-30 21:57] VITALS: BP 117/96; PULSE 93; RESP 20; TEMP 38; O2SAT 100
--- NOTE | 2024-04-30 22:27 | ED.WEAKNESS ---
HPI - Weakness General Chief complaint: Weakness Stated complaint: unable to bear weight History of Present Illness HPI Narrative: This is a 73-year-old female, who returns to the emergency department complaining of inability to bear weight on the right side due to pain at the hip and the knee as well as generalized weakness. The patient was seen in this emergency department earlier today. Workup was remarkable for anemia for which she was transfused 1 unit, though imaging and labs are not concerning for fracture or dislocation. The patient complains of severe pain in the right hip and knee. She has no other complaints at this time. Related Data Allergies Allergy/AdvReac Type Severity Reaction Status Date / Time acetaminophen Allergy Unknown Unknown Verified 04/30/24 07:23 amlodipine Allergy Unknown Unknown Verified 04/30/24 07:23 banana Allergy Unknown Unknown Verified 04/30/24 07:23 dextromethorphan Allergy Unknown Unknown Verified 04/30/24 07:23 latex Allergy Unknown Unknown Verified 04/30/24 07:23 lisinopril Allergy Unknown Unknown Verified 04/30/24 07:23 Penicillins Allergy Unknown Unknown Verified 04/30/24 07:23 prednisone Allergy Unknown Unknown Verified 04/30/24 07:23 pseudoephedrine Allergy Unknown Unknown Verified 04/30/24 07:23 tetracycline Allergy Unknown Unknown Verified 04/30/24 07:23 tree nut Allergy Unknown Unknown Verified 04/30/24 07:23 aspirin AdvReac Unknown Nausea and Verified 04/30/24 07:23 Vomiting Review of Systems Review of Systems: All systems reviewed & are unremarkable except as noted in HPI and below PMFSH Past Medical History Medical History DVT (deep venous thrombosis) Hyperlipidemia Hypertension Rheumatoid arthritis Surgical History Surgical History H/O: hysterectomy Social History Social History Smoking status: Never smoker Exam Narrative: GENERAL: Well-developed, well-nourished, in moderate distress due to pain. Warm to touch HEAD: Normocephalic, atraumatic. EYES: PERRLA and EOMI. ENT: Nares clear, no rhinorrhea or epistaxis. Mucous membranes moist. Oropharynx without tonsillar hypertrophy exudate or other lesions. CHEST: Clear to auscultation. No respiratory distress. No wheezes rales or rhonchi HEART: Regular rate and rhythm. No murmur heard. Normal peripheral pulses. ABDOMEN: Soft, nontender, nondistended, normal active bowel sounds. EXTREMITIES: Tender to palpation over the right hip, right knee and right wrist. There is a well-healed midline surgical scar of the right knee. The knee is not erythematous appears mildly swollen. Normal range of motion of all extremities. No edema. SKIN: Warm, dry, no rash. NEURO: Alert and oriented x3. No focal deficit. Moving all 4 limbs spontaneously PSYCH: Normal mood and affect. Course Course Emergency Course: 03:07 - CBC demonstrates white blood cell count elevation of 10.2 with hemoglobin of 8.8 (this is an a appropriate response status post transfusion), platelets 477. Chemistries unremarkable. Given the patient's continued pain, I obtained CTs of the pelvis and right knee. CT of the pelvis not concerning for fracture dislocation, CT of the right knee negative for fracture or dislocation, though does demonstrate a large joint effusion. Arthrocentesis of the right knee demonstrates 92,000 RBCs and 18,000 nucleated cells with neutrophil percentage of 85%. I discussed these findings with orthopedic surgeon, Dr. Brooks. The WBC count is low for a possible septic arthritis. Given the patient's multiple falls and intractable pain, admission was offered to the patient and accepted. I discussed the patient with Dr. Hurd who agrees and accepts admission for observation. Vital Signs Vital signs: Vital Signs Temperature 100.4 F H 04/30/24 21:57 Pulse Rate 93 0
[2024-04-30 22:40] LABS: Basophils Absolute Auto 0.1 K/mm3 (0.0-0.1); Basophils Percent Auto 0.7 % (0.2-1.2); Eosinophils Absolute Auto 0.3 K/mm3 (0-0.3); Eosinophils Percent Auto 2.5 % (0-4.4); Hematocrit 28.1 % (37.0-47.0); Hemoglobin 8.8 g/dL (12.0-15.0); Immature Granulocyte Absolute 0.12 K/mm3 (0.00-0.031); Immature Granulocyte Percent A 1.2 % (0-0.5); Lymphocytes Absolute Auto 2.36 K/mm3 (0.9-3.2); Lymphocytes Percent Auto 23.1 % (18.3-44.2); Mean Corpuscular HGB Conc 31.3 g/dl (32-36); Mean Corpuscular Hemoglobin 27.7 pg (26-34); Mean Corpuscular Volume 88.4 fl (80-100); Mean Platelet Volume 8.8 fl (7.4-10.4); Monocytes Absolute Auto 0.9 K/mm3 (0.1-0.6); Monocytes Percent Auto 8.5 % (2.6-8.5); Neutrophils Absolute Auto 6.5 K/mm3 (1.3-6.7); Platelet Count Result 477 k/mm3 (150-375); Red Blood Count 3.18 M/mm3 (4.2-5.4); Red Cell Distribution Width 16.8 % (11.5-14.5); White Blood Count 10.2 K/mm3 (4.5-10.0)
[2024-04-30] MEDS: IBUPROFEN 400 MG TABLET 800 MG PO (22:56)
[2024-04-30 23:04] LABS: Alanine Aminotransferase 11 U/L (6-35); Albumin Level 3.3 g/dL (3.5-5.1); Alkaline Phosphatase 86 U/L (38-126); Anion Gap 7 mmol/L (4-12); Aspartate Amino Transferase 30 U/L (14-36); Bilirubin,Total 1.4 mg/dL (0.2-1.3); Blood Urea Nitrogen 14 mg/dL (7-17); Calcium 9.1 mg/dL (8.4-10.2); Carbon Dioxide 22 mmol/L (22-30); Chloride 106 mmol/L (98-107); Creatine Kinase 38 U/L (30-135); Estimated CRCL calculation 75 ml/min; Estimated Glomerular Filt Rate > 60; Glucose 105 mg/dL (65-110); Lactate Dehydrogenase 210 U/L (120-246); Potassium 3.9 mmol/L (3.4-5.0); Sodium 135 mmol/L (137-145)
[2024-05-01] VITALS (22 sets, daily range): BP systolic 146–166; BP diastolic 74–106; PULSE 81–97; RESP 16–27; TEMP 35.7–37.7; O2SAT 95–100; BMI 22.8
--- NOTE | 2024-05-01 | ECHO_ITS ---
Patient Info Name: Tiesha Stock Age: 73 years : 1950 Gender: Female Ht: 65 in Wt: 136 lbs BSA: 1.69 m2 HR: 84 bpm BP: 146 / 83 mmHg Heart Rhythm: Sinus Rhythm Technical Quality: Fair Exam Date: 05/01/2024 1:44 PM Exam Location: Echo Lab Patient Status: Inpatient Admit Date: 05/01/2024 Staff Ordering Physician: Tiffany Moon APRN Channel Opener: Eliecer Martinez [facility] Attending Provider: Daniel Hurd MD Referring Physician: Red CACERES; Exam Type: CA echo doppler color flow Study Info Indications I35.0 - Nonrheumatic aortic (valve) stenosis Complete two-dimensional, color flow and Doppler transthoracic echocardiogram is performed. Summary 1. Complete two-dimensional, color flow and Doppler transthoracic echocardiogram is performed. 2. Left ventricular chamber dimension is normal. 3. Left ventricular systolic function is normal, estimated at 60-65%. 4. There is mildly increased left ventricular wall thickness. 5. The left ventricular diastolic function is grade I diastolic dysfunction. 6. Right ventricular systolic function is normal. 7. The atrial septum appears aneurysmal. 8. There is moderate aortic valve calcification. 9. There is mild mitral valve regurgitation. 10. There is mild tricuspid valve regurgitation. Left Ventricle Left ventricular chamber dimension is normal. Left ventricular systolic function is normal, estimated at 60-65%. There is mildly increased left ventricular wall thickness. The left ventricular diastolic function is grade I diastolic dysfunction. Right Ventricle Right ventricular chamber dimension is normal. Right ventricular systolic function is normal. Left Atria Left atrial chamber dimension is normal. Right Atria Right atrial chamber dimension is normal. Atrial Septum The atrial septum appears aneurysmal. Intact interatrial septum visualized by color flow imaging. Aortic Valve The aortic valve is probable trileaflet. There is no aortic valve stenosis. There is no aortic valve regurgitation. There is moderate aortic valve calcification. Pulmonic Valve The pulmonic valve is not well visualized. There is trace pulmonic regurgitation. Mitral Valve There is mild mitral valve regurgitation. The mitral valve annulus is mildly calcified. Tricuspid Valve There is mild tricuspid valve regurgitation. Pericardium/Pleural There is no pericardial effusion. Inferior Vena Cava Normal inferior vena cava with >50% collapse upon inspiration consistent with normal right atrial pressure, 3 mmHg. Aorta The aortic root size at the sinus of Valsalva is normal. Tricuspid Valve Name Value Normal Estimated PAP/RSVP RA Pressure 3 mmHg <=5 Report Signatures
[2024-05-01] MEDS: MORPHINE SULFATE (*CRX) 4 MG/ML INJ IV PUSH (00:13)
[2024-05-01] MEDS: LACTATED RINGERS 1,000 ML 999 ML IV CONT (00:51)
[2024-05-01 01:11] LABS: Appearance Synovial Fluid Bloody (Clear); Color Synovial Fluid Red (Colorless); Source Synovial Fluid Synovial fluid
[2024-05-01 01:19] LABS: Nucleated Cell Synovial Fluid 18146 /uL (0-200)
[2024-05-01 01:38] LABS: RBC Synovial Fluid 92000 /uL (0-0)
[2024-05-01 01:41] LABS: Lymphocytes Synovial Fluid 12 %; Monocytes Synovial Fluid 3 %
[2024-05-01 01:42] LABS: Neutrophils Synovial Fluid 85 % (0-25)
[2024-05-01 02:08] LABS: Crystals Synovial Fluid None Seen (None Seen)
[2024-05-01] MEDS: methylPREDNISolone SOD SUCC 125 MG VIAL IV PUSH (03:09)
[2024-05-01 08:41] LABS: Hematocrit 29.8 % (37.0-47.0); Hemoglobin 9.2 g/dL (12.0-15.0); Mean Corpuscular HGB Conc 30.9 g/dl (32-36); Mean Corpuscular Hemoglobin 27.9 pg (26-34); Mean Corpuscular Volume 90.3 fl (80-100); Mean Platelet Volume 9.3 fl (7.4-10.4); Platelet Count Result 516 k/mm3 (150-375); Red Cell Distribution Width 16.8 % (11.5-14.5); White Blood Count 7.5 K/mm3 (4.5-10.0)
[2024-05-01 08:58] LABS: Alanine Aminotransferase 18 U/L (6-35); Albumin Level 3.2 g/dL (3.5-5.1); Alkaline Phosphatase 127 U/L (38-126); Anion Gap 6 mmol/L (4-12); Aspartate Amino Transferase 49 U/L (14-36); Bilirubin,Total 1.1 mg/dL (0.2-1.3); Blood Urea Nitrogen 14 mg/dL (7-17); Calcium 9.1 mg/dL (8.4-10.2); Carbon Dioxide 23 mmol/L (22-30); Chloride 108 mmol/L (98-107); Estimated CRCL calculation 75 ml/min; Estimated Glomerular Filt Rate > 60; Glucose 131 mg/dL (65-110); Potassium 4.2 mmol/L (3.4-5.0); Sodium 137 mmol/L (137-145)
[2024-05-01] MEDS: PANTOPRAZOLE 40 MG TABLET PO (08:58)
--- NOTE | 2024-05-01 09:36 | PM.CNOR ---
Assessment and Plan Assessment and plan (1) Osteoarthritis of right knee: Code(s): M17.11 - Unilateral primary osteoarthritis, right knee Status: Acute Assessment and Plan: Patient has arthritis right knee. She has had some type of surgery on her RIGHT knee. Sheclaimed it was a knee replacement, however there is no metal in the knee. She may have ruptured her quadriceps tendon. She has a longitudinal incision that is fairly long. At any rate there is an incision that has a small ulceration. Will aspirate the knee and make sure there is no evidence of deep infection. I will see follow her along for that. Her left knee replacement seems to be functioning well and is not painful, discussed. (2) History of knee replacement procedure of left knee: Code(s): Z96.652 - Presence of left artificial knee joint Status: Acute History of Present Illness HPI Consult date: 05/01/24 Chief complaint: Multiple falls Narrative: Patient has pain and swelling of her right knee. She has had left knee replacement done in [place]. And she told me she had a right knee replacement done as well. However the x-rays do not reflect. She does have pain and swelling in the knee. Review of Systems Musculoskeletal: Musculoskeletal: Reports arthralgias, Reports joint swelling and Reports stiffness PMFSH Past Medical History Medical History DVT (deep venous thrombosis) Hyperlipidemia Hypertension Rheumatoid arthritis Surgical History Surgical History H/O: hysterectomy Social History Social History Smoking status: Never smoker Alcohol intake: never Substance use: never Do You Feel Safe in your Home?: Yes Lack of Transportation: No Lack of Food: Never True Current Housing: I Have Housing Concerned About Future Housing: No Difficulty Paying Gas/Electric Bills: No Difficulty Paying for Meds: No Currently Unemployed: No Education: High School Diploma/GED Difficulty w/ Childcare or Family Care: No Spiritual care concerns: No Meds Home Medications and Allergies Home Medications Medication Instructions Recorded Confirmed Type cefuroxime axetil 500 mg tablet 500 mg PO BID 7 days #14 tabs 07/18/23 Rx ondansetron 4 mg disintegrating 4 mg PO Q6H PRN nausea and 07/18/23 Rx tablet vomiting #14 tabs Allergies Allergy/AdvReac Type Severity Reaction Status Date / Time acetaminophen Allergy Unknown Unknown Verified 04/30/24 07:23 amlodipine Allergy Unknown Unknown Verified 04/30/24 07:23 banana Allergy Unknown Unknown Verified 04/30/24 07:23 dextromethorphan Allergy Unknown Unknown Verified 04/30/24 07:23 latex Allergy Unknown Unknown Verified 04/30/24 07:23 lisinopril Allergy Unknown Unknown Verified 04/30/24 07:23 Penicillins Allergy Unknown Unknown Verified 04/30/24 07:23 prednisone Allergy Unknown Unknown Verified 04/30/24 07:23 pseudoephedrine Allergy Unknown Unknown Verified 04/30/24 07:23 tetracycline Allergy Unknown Unknown Verified 04/30/24 07:23 tree nut Allergy Unknown Unknown Verified 04/30/24 07:23 aspirin AdvReac Unknown Nausea and Verified 04/30/24 07:23 Vomiting Vital Signs Vital Signs - 24 hr 04/30/24 21:57 05/01/24 00:51 05/01/24 00:15 Temperature 100.4 F H 99.8 F H Pulse Rate 93 95 97 Respiratory Rate 20 16 23 H Blood Pressure 117/96 H 148/83 H Pulse Oximetry 100 99 Oxygen Delivery Room Air 05/01/24 01:08 05/01/24 01:31 05/01/24 01:32 Temperature Pulse Rate 93 88 91 Respiratory Rate 24 H 24 H 25 H Blood Pressure 160/94 H Pulse Oximetry 100 100 100 Oxygen Delivery 05/01/24 01:47 05/01/24 02:02 05/01/24 02:45 Temperature Pulse Rate 94 94 91 Respiratory Rate 21 H 19 25 H Blood Pressure Pulse Oximetry 100 100 99 Oxygen Delivery 05/01/24
[2024-05-01 10:44] LABS: Glucose Point of Care 202 mg/dl (65-105)
[2024-05-01 11:26] LABS: INR 1.4; Prothrombin Time 17.2 Seconds (11.1-14.7)
[2024-05-01 11:27] LABS: Partial Thromboplastin Time 39.6 Seconds (22.3-36.8)
[2024-05-01 13:01] LABS: Iron 25 ug/dL (37-170)
[2024-05-01 13:10] LABS: Percent Iron Saturation 18 % (20-50)
--- NOTE | 2024-05-01 15:14 | PM.IMHP ---
H&P: HPI History of Present Illness Date/Time: 05/01/24 15:14 Chief Complaint: Weakness/ Can't walk /bilateral hip and knee pain Narrative: Patient is a 73-year-old female who presented to the emergency department earlier that day with complaints weakness bilateral hip pain, bilateral knee pain and inability to walk. Patient in the emergency department refused [facility] facility services and stated she was having home health come out 5 days a week and was discharged home. Patient then returned to the emergency department with same complaints as reported from the ER documentation EMS has been to patient's house over 10 times this week for lift assist. On patient's 1st visit to the emergency department hemoglobin should be 7.4 and she was transfused 1 unit of blood prior to discharge. Patient states she did not fall at home with no injury to her head however does show that she takes Eliquis will discontinue due to frequent recurrent falls risks outweigh the benefits, no overt bleeding noted follow-up HGB 9.2. Patient's initial head CT showed no significant abnormalities, right knee CT did show a large joint effusion, and pelvis CT with no acute osseous findings. Orthopedics were consulted initial joint effusion aspiration completed emergency department and follow-up aspiration by Orthopedics. Patient denied any chest pain, shortness a breath, nausea, vomiting difficulty urinating or defecating. Patient states symptoms have been worsening week and today she was unable to transfer her chair. Patient reports history of DVT, RA, hyperlipidemia, and hypertension. Patient does have a port present which she stated was receiving her RA medications through but has not done so in about a year. Patient was admitted to the medical unit with evaluation PT OT and consult to Orthopedics. Patient is not the best historian he has been at bedside also not a best historian. For patient safety purposes would recommend SNF however the patient is determined to return home. Review of Systems Review of Systems: All systems reviewed & are unremarkable except as noted in HPI and below PMFSH Past Medical History Medical History (Updated 05/01/24 @ 16:26 by Tiffany Moon APRN) DVT (deep venous thrombosis) Hyperlipidemia Hypertension Rheumatoid arthritis Surgical History Surgical History H/O: hysterectomy Social History Social History Smoking status: Never smoker Alcohol intake: never Substance use: never Do You Feel Safe in your Home?: Yes Lack of Transportation: No Lack of Food: Never True Current Housing: I Have Housing Concerned About Future Housing: No Difficulty Paying Gas/Electric Bills: No Difficulty Paying for Meds: No Currently Unemployed: No Education: High School Diploma/GED Difficulty w/ Childcare or Family Care: No Spiritual care concerns: No Meds Home Medications and Allergies Home Medications Medication Instructions Recorded Confirmed Type cefuroxime axetil 500 mg tablet 500 mg PO BID 7 days #14 tabs 07/18/23 05/01/24 Rx ondansetron 4 mg disintegrating 4 mg PO Q6H PRN nausea and 07/18/23 05/01/24 Rx tablet vomiting #14 tabs apixaban 5 mg tablet (Eliquis) 5 mg PO DAILY 05/01/24 05/01/24 History diltiazem HCl 240 mg 240 mg PO DAILY 05/01/24 05/01/24 History tablet,extended release 24 hr duloxetine 20 mg capsule,delayed 20 mg PO DAILY 05/01/24 05/01/24 History release metoprolol tartrate 25 mg tablet 25 mg PO DAILY 05/01/24 05/01/24 History mirtazapine 15 mg tablet 15 mg PO DAILY 05/01/24 05/01/24 History Allergies Allergy/AdvReac Type Severity Reaction Status Date / Time acetaminophen Allergy Unknown Unknown Verified 04/30/24 07:23 amlodipine Allergy Unknown Unknown Verified 04/30/24 07:23 banana Allergy Unknown Unknown Verified 04/30/24 07:23 d
[2024-05-01] MEDS: MIRTAZAPINE 15 MG TABLET PO (16:09)
[2024-05-01] MEDS: METOPROLOL TARTRATE 25 MG TABLET PO (16:09)
[2024-05-01] MEDS: DULoxetine HCL 20 MG CAPSULE.DR PO (16:09)
[2024-05-01] MEDS: dilTIAZem HCL CD 240 MG CAP.24HR PO (16:10)
[2024-05-01 20:25] LABS: Hemoglobin A1C 4.6 % (<5.7)
[2024-05-02 06:00] VITALS: BP 146/74; PULSE 82; RESP 18; TEMP 36.8; O2SAT 100
[2024-05-02 06:38] LABS: Hematocrit 28.3 % (37.0-47.0); Hemoglobin 8.8 g/dL (12.0-15.0); Mean Corpuscular HGB Conc 31.1 g/dl (32-36); Mean Corpuscular Hemoglobin 27.9 pg (26-34); Mean Corpuscular Volume 89.8 fl (80-100); Mean Platelet Volume 9.3 fl (7.4-10.4); Platelet Count Result 597 k/mm3 (150-375); Red Blood Count 3.15 M/mm3 (4.2-5.4); Red Cell Distribution Width 16.2 % (11.5-14.5)
[2024-05-02 07:06] LABS: Alanine Aminotransferase 15 U/L (6-35); Albumin Level 3.2 g/dL (3.5-5.1); Alkaline Phosphatase 109 U/L (38-126); Anion Gap 4 mmol/L (4-12); Aspartate Amino Transferase 26 U/L (14-36); Bilirubin,Total 0.5 mg/dL (0.2-1.3); Blood Urea Nitrogen 25 mg/dL (7-17); Calcium 8.8 mg/dL (8.4-10.2); Carbon Dioxide 23 mmol/L (22-30); Chloride 111 mmol/L (98-107); Estimated CRCL calculation 75 ml/min; Estimated Glomerular Filt Rate > 60; Glucose 154 mg/dL (65-110); Potassium 3.7 mmol/L (3.4-5.0); Sodium 138 mmol/L (137-145)
[2024-05-02 08:08] LABS: Vitamin D 25 Hydroxy 31.6 ng/mL
[2024-05-02] MEDS: MIRTAZAPINE 15 MG TABLET PO (09:56)
[2024-05-02] MEDS: DULoxetine HCL 20 MG CAPSULE.DR PO (09:56)
[2024-05-02] MEDS: IBUPROFEN 400 MG TABLET PO (09:56)
[2024-05-02] MEDS: FERROUS SULFATE 325 MG TABLET DR PO ×2 (09:56→18:04)
[2024-05-02 09:57] VITALS: PULSE 80
[2024-05-02] MEDS: PANTOPRAZOLE 40 MG TABLET PO (09:57)
[2024-05-02] MEDS: METOPROLOL TARTRATE 25 MG TABLET PO (09:57)
[2024-05-02] MEDS: dilTIAZem HCL CD 240 MG CAP.24HR PO (09:58)
[2024-05-02] MEDS: FOLIC ACID 1 MG TABLET PO (09:59)
[2024-05-02 10:24] LABS: Haptoglobin 463 mg/dL (43-212)
[2024-05-02 10:32] VITALS: O2SAT 100
--- NOTE | 2024-05-02 11:26 | P.PNIM_ITS ---
Progress Note: A&P Assessment and Plan (1) Osteoarthritis of right knee: Code(s): M17.11 - Unilateral primary osteoarthritis, right knee Status: Acute (2) Acute pain of right hip: Code(s): M25.551 - Pain in right hip Status: Acute (3) Acute pain of right knee: Code(s): M25.561 - Pain in right knee Status: Acute (4) Multiple falls: Code(s): R29.6 - Repeated falls Status: Acute (5) Effusion of knee joint right: Code(s): M25.461 - Effusion, right knee Status: Acute (6) Rheumatoid arthritis: Code(s): M06.9 - Rheumatoid arthritis, unspecified Status: Acute (7) Hyperlipidemia: Code(s): E78.5 - Hyperlipidemia, unspecified Status: Acute (8) DVT (deep venous thrombosis): Code(s): I82.409 - Acute embolism and thrombosis of unspecified deep veins of unspecified lower extremity Status: Acute (9) Hypertension: Code(s): I10 - Essential (primary) hypertension Status: Acute (10) Osteopenia: Code(s): M85.80 - Other specified disorders of bone density and structure, unspecified site Status: Acute Plan Frequent falls * EMS 10 times in the last week for lift assist * PT/OT * holding Eliquis due to falls * CT pelvis/hip with no fractures * HX RA/OA * CT Head negative for acute issues * HX LT knee replacement RT Knee joint effusion/Knee pain * Orthopedic consulted * aspiration x 2 * synovial fluid pending * PT/OT * pain control * elevation * US BLE to r/o DVT unsure how complaint patient is with her Eliquis acute bilateral Hip pain * CT Pelvis negative for fracture * PT/OT * Pain control * Vitamin-D pending * Ortho consulted * History of OA and RA Anemia-iron deficiency anemia * 7.4 POA * 9.2 after 1 unit of PRBCs transfused * Iron panels pending * Holding Eliquis * Transfuse Hgb <7.0 * Patient with extremely high ferritin secondary to RA * Started on iron supplement HTN * resumed home BB/dilt * BP per unit protocol * adjust as needed * lipid panel pending HX RA: Port present/no longer on treatment HX DVT: Eliquis on hold Code status: Full code per patient DVT prophylaxis: Eliquis/SCDS Stress ulcer prophylaxis: Protonix 40 daily PT/OT notes: Pending Disposition: Patient admitted to the medical unit and for evaluation of inability to walk and recurrent falls at home. Ortho has been consulted and following or knee aspirations PT OT recommendations. Patient has been adamant about returning home states she has home health not willing to go to a skilled n ursing facility. Spoke with patient regarding risks Eliquis 10 falls she will hold for now NC to her primary after rehab. Time Spent With Patient Time with patient: 15 - 25 minutes Subjective Date/time seen: 05/02/24 11:26 Interval history: Admission: Chief Complaint: Weakness/ Can't walk /bilateral hip and knee pain Narrative: Patient is a 73-year-old female who presented to the emergency department earlier that day with complaints weakness bilateral hip pain, bilateral knee pain and inability to walk. Patient in the emergency department refused assisted facility services and stated she was having home health come out 5 days a week and was discharged home. Patient then returned to the emergency department with same complaints as reported from the ER documentation EMS has b
--- NOTE | 2024-05-02 11:26 | PM.IMPN ---
Progress Note: A&P Assessment and Plan (1) Osteoarthritis of right knee: Code(s): M17.11 - Unilateral primary osteoarthritis, right knee Status: Acute (2) Acute pain of right hip: Code(s): M25.551 - Pain in right hip Status: Acute (3) Acute pain of right knee: Code(s): M25.561 - Pain in right knee Status: Acute (4) Multiple falls: Code(s): R29.6 - Repeated falls Status: Acute (5) Effusion of knee joint right: Code(s): M25.461 - Effusion, right knee Status: Acute (6) Rheumatoid arthritis: Code(s): M06.9 - Rheumatoid arthritis, unspecified Status: Acute (7) Hyperlipidemia: Code(s): E78.5 - Hyperlipidemia, unspecified Status: Acute (8) DVT (deep venous thrombosis): Code(s): I82.409 - Acute embolism and thrombosis of unspecified deep veins of unspecified lower extremity Status: Acute (9) Hypertension: Code(s): I10 - Essential (primary) hypertension Status: Acute (10) Osteopenia: Code(s): M85.80 - Other specified disorders of bone density and structure, unspecified site Status: Acute Plan Frequent falls EMS 10 times in the last week for lift assist PT/OT holding Eliquis due to falls CT pelvis/hip with no fractures HX RA/OA CT Head negative for acute issues HX LT knee replacement RT Knee joint effusion/Knee pain Orthopedic consulted aspiration x 2 synovial fluid pending PT/OT pain control elevation US BLE to r/o DVT unsure how complaint patient is with her Eliquis acute bilateral Hip pain CT Pelvis negative for fracture PT/OT Pain control Vitamin-D pending Ortho consulted History of OA and RA Anemia-iron deficiency anemia 7.4 POA 9.2 after 1 unit of PRBCs transfused Iron panels pending Holding Eliquis Transfuse Hgb <7.0 Patient with extremely high ferritin secondary to RA Started on iron supplement HTN resumed home BB/dilt BP per unit protocol adjust as needed lipid panel pending HX RA: Port present/no longer on treatment HX DVT: Eliquis on hold Code status: Full code per patient DVT prophylaxis: Eliquis/SCDS Stress ulcer prophylaxis: Protonix 40 daily PT/OT notes: Pending Disposition: Patient admitted to the medical unit and for evaluation of inability to walk and recurrent falls at home. Ortho has been consulted and following or knee aspirations PT OT recommendations. Patient has been adamant about returning home states she has home health not willing to go to a half-way facility. Spoke with patient regarding risks Eliquis 10 falls she will hold for now NC to her primary after rehab. Time Spent With Patient Time with patient: 15 - 25 minutes Subjective Date/time seen: 05/02/24 11:26 Interval history: Admission: Chief Complaint: Weakness/ Can't walk /bilateral hip and knee pain Narrative: Patient is a 73-year-old female who presented to the emergency department earlier that day with complaints weakness bilateral hip pain, bilateral knee pain and inability to walk. Patient in the emergency department refused half-way facility services and stated she was having home health come out 5 days a week and was discharged home. Patient then returned to the emergency department with same complaints as reported from the ER documentation EMS has been to patient's house over 10 times this week for lift assist. On patient's 1st visit to the emergency department hemoglobin should be 7.4 and she was transfused 1 unit of blood prior to discharge. Patient states she did not fall at home with no injury to her head however does show that she takes Eliquis will discontinue due to frequent recurrent falls risks outweigh the benefits, no overt bleeding noted follow-up HGB 9.2. Patient's initial head CT showed no significant abnormalities, right knee CT did show a large joint effusion, and pelvis CT with no
[2024-05-02 14:00] VITALS: BP 144/75; PULSE 71; RESP 18; TEMP 36.6; O2SAT 100
[2024-05-02 20:23] VITALS: BP 152/73; PULSE 75; RESP 16; TEMP 36.7; O2SAT 100
[2024-05-03 06:00] VITALS: BP 162/89; PULSE 69; RESP 12; TEMP 36.8; O2SAT 100
[2024-05-03 07:45] LABS: Hematocrit 28.8 % (37.0-47.0); Hemoglobin 8.7 g/dL (12.0-15.0); Mean Corpuscular HGB Conc 30.2 g/dl (32-36); Mean Corpuscular Hemoglobin 27.7 pg (26-34); Mean Corpuscular Volume 91.7 fl (80-100); Mean Platelet Volume 9.3 fl (7.4-10.4); Platelet Count Result 583 k/mm3 (150-375); Red Blood Count 3.14 M/mm3 (4.2-5.4); Red Cell Distribution Width 16.2 % (11.5-14.5); White Blood Count 13.3 K/mm3 (4.5-10.0)
[2024-05-03 08:12] LABS: Alanine Aminotransferase 19 U/L (6-35); Albumin Level 3.1 g/dL (3.5-5.1); Alkaline Phosphatase 97 U/L (38-126); Anion Gap 7 mmol/L (4-12); Aspartate Amino Transferase 31 U/L (14-36); Bilirubin,Total 0.5 mg/dL (0.2-1.3); Blood Urea Nitrogen 25 mg/dL (7-17); Calcium 8.4 mg/dL (8.4-10.2); Carbon Dioxide 24 mmol/L (22-30); Chloride 110 mmol/L (98-107); Estimated CRCL calculation 75 ml/min; Estimated Glomerular Filt Rate > 60; Glucose 98 mg/dL (65-110); Potassium 3.1 mmol/L (3.4-5.0); Sodium 141 mmol/L (137-145)
[2024-05-03] MEDS: MIRTAZAPINE 15 MG TABLET PO (08:21)
[2024-05-03] MEDS: FERROUS SULFATE 325 MG TABLET DR PO ×2 (08:21→16:55)
[2024-05-03] MEDS: FOLIC ACID 1 MG TABLET PO (08:21)
[2024-05-03] MEDS: METOPROLOL TARTRATE 25 MG TABLET PO (08:21)
[2024-05-03] MEDS: IBUPROFEN 400 MG TABLET PO ×2 (08:21→16:55)
[2024-05-03] MEDS: PANTOPRAZOLE 40 MG TABLET PO (08:21)
[2024-05-03] MEDS: dilTIAZem HCL CD 240 MG CAP.24HR PO (08:21)
[2024-05-03] MEDS: DULoxetine HCL 20 MG CAPSULE.DR PO (08:21)
[2024-05-03] MEDS: POTASSIUM CHLORIDE INJ 40 MEQ in SODIUM CHLORIDE 0.9% IV 500 ML 70 MEQ IVPB (09:15)
--- NOTE | 2024-05-03 12:24 | P.PNIM_ITS ---
Progress Note: A&P Assessment and Plan (1) Osteoarthritis of right knee: Code(s): M17.11 - Unilateral primary osteoarthritis, right knee Status: Acute (2) Acute pain of right hip: Code(s): M25.551 - Pain in right hip Status: Acute (3) Acute pain of right knee: Code(s): M25.561 - Pain in right knee Status: Acute (4) Multiple falls: Code(s): R29.6 - Repeated falls Status: Acute (5) Effusion of knee joint right: Code(s): M25.461 - Effusion, right knee Status: Acute (6) Rheumatoid arthritis: Code(s): M06.9 - Rheumatoid arthritis, unspecified Status: Acute (7) Hyperlipidemia: Code(s): E78.5 - Hyperlipidemia, unspecified Status: Acute (8) DVT (deep venous thrombosis): Code(s): I82.409 - Acute embolism and thrombosis of unspecified deep veins of unspecified lower extremity Status: Acute (9) Hypertension: Code(s): I10 - Essential (primary) hypertension Status: Acute (10) Osteopenia: Code(s): M85.80 - Other specified disorders of bone density and structure, unspecified site Status: Acute Plan Frequent falls * EMS 10 times in the last week for lift assist * PT/OT * holding Eliquis due to falls * CT pelvis/hip with no fractures * HX RA/OA * CT Head negative for acute issues * HX LT knee replacement RT Knee joint effusion/Knee pain * Orthopedic consulted * aspiration x 2 * synovial fluid pending * PT/OT * pain control * elevation * US BLE to r/o DVT unsure how complaint patient is with her Eliquis * Started on Celebrex acute bilateral Hip pain * CT Pelvis negative for fracture * PT/OT * Pain control * Vitamin-D pending * Ortho consulted * History of OA and RA * Started on Celebrex Anemia-iron deficiency anemia * 7.4 POA * 9.2 after 1 unit of PRBCs transfused * Iron panels pending * Holding Eliquis * Transfuse Hgb <7.0 * Patient with extremely high ferritin secondary to RA * Started on iron supplement HTN * resumed home BB/dilt * BP per unit protocol * adjust as needed * lipid panel pending HX RA: Port present/no longer on treatment HX DVT: Eliquis on hold Code status: Full code per patient DVT prophylaxis: Eliquis/SCDS Stress ulcer prophylaxis: Protonix 40 daily PT/OT notes: Pending Disposition: Patient admitted to the medical unit and for evaluation of inability to walk and recurrent falls at home. Ortho has been consulted and following or knee aspirations PT OT recommendations. Patient has been adamant about returning home states she has home health not willing to go to a intermediate facility. Spoke with patient regarding risks Eliquis 10 falls she will hold for now [place] to her primary after rehab. Started on Celebrex for OA/RA can l ikely discharge tomorrow with HH. Time Spent With Patient Time with patient: 15 - 25 minutes Subjective Date/time seen: 05/03/24 12:24 Interval history: Admission: Chief Complaint: Weakness/ Can't walk /bilateral hip and knee pain Narrative: Patient is a 73-year-old female who presented to the emergency department earlier that day with complaints weakness bilateral hip pain, bilateral knee pain and inability to walk. Patient in the emergency department refused intermediate facility services and stated she was having home health come out 5 days a week and was disch
--- NOTE | 2024-05-03 12:24 | PM.IMPN ---
Progress Note: A&P Assessment and Plan (1) Osteoarthritis of right knee: Code(s): M17.11 - Unilateral primary osteoarthritis, right knee Status: Acute (2) Acute pain of right hip: Code(s): M25.551 - Pain in right hip Status: Acute (3) Acute pain of right knee: Code(s): M25.561 - Pain in right knee Status: Acute (4) Multiple falls: Code(s): R29.6 - Repeated falls Status: Acute (5) Effusion of knee joint right: Code(s): M25.461 - Effusion, right knee Status: Acute (6) Rheumatoid arthritis: Code(s): M06.9 - Rheumatoid arthritis, unspecified Status: Acute (7) Hyperlipidemia: Code(s): E78.5 - Hyperlipidemia, unspecified Status: Acute (8) DVT (deep venous thrombosis): Code(s): I82.409 - Acute embolism and thrombosis of unspecified deep veins of unspecified lower extremity Status: Acute (9) Hypertension: Code(s): I10 - Essential (primary) hypertension Status: Acute (10) Osteopenia: Code(s): M85.80 - Other specified disorders of bone density and structure, unspecified site Status: Acute Plan Frequent falls EMS 10 times in the last week for lift assist PT/OT holding Eliquis due to falls CT pelvis/hip with no fractures HX RA/OA CT Head negative for acute issues HX LT knee replacement RT Knee joint effusion/Knee pain Orthopedic consulted aspiration x 2 synovial fluid pending PT/OT pain control elevation US BLE to r/o DVT unsure how complaint patient is with her Eliquis Started on Celebrex acute bilateral Hip pain CT Pelvis negative for fracture PT/OT Pain control Vitamin-D pending Ortho consulted History of OA and RA Started on Celebrex Anemia-iron deficiency anemia 7.4 POA 9.2 after 1 unit of PRBCs transfused Iron panels pending Holding Eliquis Transfuse Hgb <7.0 Patient with extremely high ferritin secondary to RA Started on iron supplement HTN resumed home BB/dilt BP per unit protocol adjust as needed lipid panel pending HX RA: Port present/no longer on treatment HX DVT: Eliquis on hold Code status: Full code per patient DVT prophylaxis: Eliquis/SCDS Stress ulcer prophylaxis: Protonix 40 daily PT/OT notes: Pending Disposition: Patient admitted to the medical unit and for evaluation of inability to walk and recurrent falls at home. Ortho has been consulted and following or knee aspirations PT OT recommendations. Patient has been adamant about returning home states she has home health not willing to go to a correction facility. Spoke with patient regarding risks Eliquis 10 falls she will hold for now NC to her primary after rehab. Started on Celebrex for OA/RA can likely discharge tomorrow with HH. Time Spent With Patient Time with patient: 15 - 25 minutes Subjective Date/time seen: 05/03/24 12:24 Interval history: Admission: Chief Complaint: Weakness/ Can't walk /bilateral hip and knee pain Narrative: Patient is a 73-year-old female who presented to the emergency department earlier that day with complaints weakness bilateral hip pain, bilateral knee pain and inability to walk. Patient in the emergency department refused correction facility services and stated she was having home health come out 5 days a week and was discharged home. Patient then returned to the emergency department with same complaints as reported from the ER documentation EMS has been to patient's house over 10 times this week for lift assist. On patient's 1st visit to the emergency department hemoglobin should be 7.4 and she was transfused 1 unit of blood prior to discharge. Patient states she did not fall at home with no injury to her head however does show that she takes Eliquis will discontinue due to frequent recurrent falls risks outweigh the benefits, no overt bleeding noted follow-up HGB 9.2. Patient's initial
[2024-05-03 12:53] LABS: IFOB Positive Control Positive; Immunochemical Fecal Occult Bl Positive (N)
[2024-05-03 13:32] VITALS: BP 155/83; PULSE 63; RESP 13; TEMP 36.7; O2SAT 100
[2024-05-03 20:00] VITALS: O2SAT 100
[2024-05-03] MEDS: MORPHINE SULFATE (*CRX) 2 MG/ML INJ IV PUSH (21:27)
[2024-05-03 22:00] VITALS: BP 163/92; PULSE 75; RESP 15; TEMP 36.5; O2SAT 100
[2024-05-04] MEDS: IBUPROFEN 400 MG TABLET PO (01:08)
[2024-05-04] MEDS: MORPHINE SULFATE (*CRX) 2 MG/ML INJ IV PUSH (01:08)
[2024-05-04 06:00] VITALS: BP 147/86; PULSE 87; RESP 15; TEMP 36.6; O2SAT 99
[2024-05-04 06:55] LABS: Hematocrit 31.2 % (37.0-47.0); Hemoglobin 9.4 g/dL (12.0-15.0); Mean Corpuscular HGB Conc 30.1 g/dl (32-36); Mean Corpuscular Volume 92.9 fl (80-100); Mean Platelet Volume 8.9 fl (7.4-10.4); Platelet Count Result 629 k/mm3 (150-375); Red Blood Count 3.36 M/mm3 (4.2-5.4); Red Cell Distribution Width 16.1 % (11.5-14.5); White Blood Count 11.7 K/mm3 (4.5-10.0)
[2024-05-04 07:07] LABS: Alanine Aminotransferase 35 U/L (6-35); Albumin Level 3.1 g/dL (3.5-5.1); Alkaline Phosphatase 104 U/L (38-126); Anion Gap 3 mmol/L (4-12); Aspartate Amino Transferase 62 U/L (14-36); Bilirubin,Total 0.5 mg/dL (0.2-1.3); Blood Urea Nitrogen 18 mg/dL (7-17); Calcium 8.6 mg/dL (8.4-10.2); Carbon Dioxide 27 mmol/L (22-30); Chloride 110 mmol/L (98-107); Estimated CRCL calculation 75 ml/min; Estimated Glomerular Filt Rate > 60; Glucose 87 mg/dL (65-110); Potassium 3.6 mmol/L (3.4-5.0); Sodium 140 mmol/L (137-145)
[2024-05-04 09:09] VITALS: PULSE 88
[2024-05-04] MEDS: PANTOPRAZOLE 40 MG TABLET PO (09:09)
[2024-05-04] MEDS: FERROUS SULFATE 325 MG TABLET DR PO (09:09)
[2024-05-04] MEDS: FOLIC ACID 1 MG TABLET PO (09:09)
[2024-05-04] MEDS: dilTIAZem HCL CD 240 MG CAP.24HR PO (09:09)
[2024-05-04] MEDS: DULoxetine HCL 20 MG CAPSULE.DR PO (09:09)
[2024-05-04] MEDS: METOPROLOL TARTRATE 25 MG TABLET PO (09:09)
[2024-05-04] MEDS: MIRTAZAPINE 15 MG TABLET PO (09:12)
--- NOTE | 2024-05-04 11:38 | WPDGICN ---
Assessment and Plan Assessment and plan (1) Acute on chronic anemia: Code(s): D64.9 - Anemia, unspecified Status: Acute Assessment and Plan: h/h stable, no overt gib we can set up egd and colonoscopy as outpatient eliquis is on hold because recent falls (2) Occult blood in stools: Code(s): R19.5 - Other fecal abnormalities Status: Acute Assessment and Plan: ? perianal we can do colonoscopy as outpatient, she claims that last one about 2 years ago elsewhere (3) Multiple falls: Code(s): R29.6 - Repeated falls Status: Acute (4) Effusion of knee joint right: Code(s): M25.461 - Effusion, right knee Status: Acute Assessment and Plan: s/p aspiration (5) Blood thinned due to long-term anticoagulant use: Code(s): Z79.01 - intermission coordinator (current) use of anticoagulants Status: Acute Assessment and Plan: eliquis on hold GI Consult Note Consult date/time: 05/04/24 11:38 Reason for consult: anemia, FOBT + HPI: Tiesha Stock is a 73 year old female admitted few days ago with weakness and bilateral hip pain with bilateral knee pain. She has been problem with moving around and was in the hospital recently, also had anemia with hemoglobin 7.4 then transfused 1 unit of blood prior to discharge. She was taking eliquis but because recent history of fall that has been on hold recently. HGB up to 9.4. She had right knee large joint effusion treated with aspiration by ortho, denies over GIB but had occult blood in stools. She says that had colonoscopy about 2 years ago at [facility]. She is feeling like going home today. Review of Systems Constitutional: Constitutional: Denies chills Eyes: Eyes: Denies blurry vision ENT: Reports Normal hearing present Cardiovascular: Cardiovascular: Denies chest pain Respiratory: Respiratory: Denies cough Gastrointestinal: Gastrointestinal: Denies melena Genitourinary: Genitourinary: Denies dysuria Musculoskeletal: Musculoskeletal: Reports arthralgias Integumentary/Breasts: Skin/Breast: Denies rash Neurologic: Denies Abnormal speech present Psychiatric: Psychiatric: Denies behavioral changes [facility] Past Medical History Medical History (Updated 05/04/24 @ 11:44 by Abel Gamez MD) Acute on chronic anemia Blood thinned due to long-term anticoagulant use DVT (deep venous thrombosis) Hyperlipidemia Hypertension Occult blood in stools Rheumatoid arthritis Surgical History Surgical History H/O: hysterectomy Social History Social History Smoking status: Never smoker Alcohol intake: never Substance use: never Do You Feel Safe in your Home?: Yes Lack of Transportation: No Lack of Food: Never True Current Housing: I Have Housing Concerned About Future Housing: No Difficulty Paying Gas/Electric Bills: No Difficulty Paying for Meds: No Currently Unemployed: No Education: High School Diploma/GED Difficulty w/ Childcare or Family Care: No Spiritual care concerns: No Meds Home Medications and Allergies Home Medications Medication Instructions Recorded Confirmed Type cefuroxime axetil 500 mg tablet 500 mg PO BID 7 days #14 tabs 07/18/23 05/01/24 Rx ondansetron 4 mg disintegrating 4 mg PO Q6H PRN nausea and 07/18/23 05/01/24 Rx tablet vomiting #14 tabs apixaban 5 mg tablet (Eliquis) 5 mg PO DAILY 05/01/24 05/01/24 History diltiazem HCl 240 mg 240 mg PO DAILY 05/01/24 05/01/24 History tablet,extended release 24 hr duloxetine 20 mg capsule,delayed 20 mg PO DAILY 05/01/24 05/01/24 History release metoprolol tartrate 25 mg tablet 25 mg PO DAILY 05/01/24 05/01/24 History mirtazapine 15 mg tablet 15 mg PO DAILY 05/01/24 05/01/24 History Allergies Allergy/AdvReac Type Severity Reaction Status Date / Time acetaminophen Allergy Un
--- NOTE | 2024-05-04 14:48 | P.DS_ITS ---
DS: Admitting Diagnosis Discharge Date 05/04/2024 Admitting Diagnosis Falls/weakness/right knee joint effusion/anemia DS: Discharge Diagnosis Discharge Diagnosis (1) Osteoarthritis of right knee: Code(s): M17.11 - Unilateral primary osteoarthritis, right knee Status: Acute (2) Acute pain of right hip: Code(s): M25.551 - Pain in right hip Status: Acute (3) Acute pain of right knee: Code(s): M25.561 - Pain in right knee Status: Acute (4) Multiple falls: Code(s): R29.6 - Repeated falls Status: Acute (5) Effusion of knee joint right: Code(s): M25.461 - Effusion, right knee Status: Acute (6) Rheumatoid arthritis: Code(s): M06.9 - Rheumatoid arthritis, unspecified Status: Acute (7) Hyperlipidemia: Code(s): E78.5 - Hyperlipidemia, unspecified Status: Acute (8) DVT (deep venous thrombosis): Code(s): I82.409 - Acute embolism and thrombosis of unspecified deep veins of unspecified lower extremity Status: Acute (9) Hypertension: Code(s): I10 - Essential (primary) hypertension Status: Acute (10) Osteopenia: Code(s): M85.80 - Other specified disorders of bone density and structure, unspecified site Status: Acute Plan Frequent falls * EMS 10 times in the last week for lift assist * PT/OT * holding Eliquis due to falls * CT pelvis/hip with no fractures * HX RA/OA * CT Head negative for acute issues * HX LT knee replacement RT Knee joint effusion/Knee pain * Orthopedic consulted * aspiration x 2 * synovial fluid pending * PT/OT * pain control * elevation * US BLE to r/o DVT unsure how complaint patient is with her Eliquis * Started on Celebrex acute bilateral Hip pain * CT Pelvis negative for fracture * PT/OT * Pain control * Vitamin-D pending * Ortho consulted * History of OA and RA * Started on Celebrex Anemia-iron deficiency anemia * 7.4 POA * 9.2 after 1 unit of PRBCs transfused * Iron panels pending * Holding Eliquis * Transfuse Hgb <7.0 * Patient with extremely high ferritin secondary to RA * Started on iron supplement HTN * resumed home BB/dilt * BP per unit protocol * adjust as needed * lipid panel pending HX RA: Port present/no longer on treatment HX DVT: Eliquis on hold DS: Summary Hospital Course Reason for hospitalization: Falls/weakness/right knee joint effusion/anemia Hospital Course: Weakness/ Can't walk /bilateral hip and knee pain Narrative: Patient is a 73-year-old female who presented to the emergency department earlier that day with complaints weakness bilateral hip pain, bilateral knee pain and inability to walk. Patient in the emergency department refused long-term facility services and stated she was having home health come out 5 days a week and was discharged home. Patient then returned to the emergency department with same complaints as reported from the ER documentation EMS has been to patient's house over 10 times this week for lift assist. On patient's 1st visit to the emergency department hemoglobin should be 7.4 and she was transfused 1 unit of blood prior to discharge. Patient states she did not fall at home with no injury to her head however does show that she takes Eliquis will discontinue due to frequent recurrent falls risks outweigh the benefits, no overt bleeding noted follow-up HGB 9.2.
--- NOTE | 2024-05-04 14:48 | PM.DS ---
DS: Admitting Diagnosis Discharge Date 05/04/2024 Admitting Diagnosis Falls/weakness/right knee joint effusion/anemia DS: Discharge Diagnosis Discharge Diagnosis (1) Osteoarthritis of right knee: Code(s): M17.11 - Unilateral primary osteoarthritis, right knee Status: Acute (2) Acute pain of right hip: Code(s): M25.551 - Pain in right hip Status: Acute (3) Acute pain of right knee: Code(s): M25.561 - Pain in right knee Status: Acute (4) Multiple falls: Code(s): R29.6 - Repeated falls Status: Acute (5) Effusion of knee joint right: Code(s): M25.461 - Effusion, right knee Status: Acute (6) Rheumatoid arthritis: Code(s): M06.9 - Rheumatoid arthritis, unspecified Status: Acute (7) Hyperlipidemia: Code(s): E78.5 - Hyperlipidemia, unspecified Status: Acute (8) DVT (deep venous thrombosis): Code(s): I82.409 - Acute embolism and thrombosis of unspecified deep veins of unspecified lower extremity Status: Acute (9) Hypertension: Code(s): I10 - Essential (primary) hypertension Status: Acute (10) Osteopenia: Code(s): M85.80 - Other specified disorders of bone density and structure, unspecified site Status: Acute Plan Frequent falls EMS 10 times in the last week for lift assist PT/OT holding Eliquis due to falls CT pelvis/hip with no fractures HX RA/OA CT Head negative for acute issues HX LT knee replacement RT Knee joint effusion/Knee pain Orthopedic consulted aspiration x 2 synovial fluid pending PT/OT pain control elevation US BLE to r/o DVT unsure how complaint patient is with her Eliquis Started on Celebrex acute bilateral Hip pain CT Pelvis negative for fracture PT/OT Pain control Vitamin-D pending Ortho consulted History of OA and RA Started on Celebrex Anemia-iron deficiency anemia 7.4 POA 9.2 after 1 unit of PRBCs transfused Iron panels pending Holding Eliquis Transfuse Hgb <7.0 Patient with extremely high ferritin secondary to RA Started on iron supplement HTN resumed home BB/dilt BP per unit protocol adjust as needed lipid panel pending HX RA: Port present/no longer on treatment HX DVT: Eliquis on hold DS: Summary Hospital Course Reason for hospitalization: Falls/weakness/right knee joint effusion/anemia Hospital Course: Weakness/ Can't walk /bilateral hip and knee pain Narrative: Patient is a 73-year-old female who presented to the emergency department earlier that day with complaints weakness bilateral hip pain, bilateral knee pain and inability to walk. Patient in the emergency department refused correction facility services and stated she was having home health come out 5 days a week and was discharged home. Patient then returned to the emergency department with same complaints as reported from the ER documentation EMS has been to patient's house over 10 times this week for lift assist. On patient's 1st visit to the emergency department hemoglobin should be 7.4 and she was transfused 1 unit of blood prior to discharge. Patient states she did not fall at home with no injury to her head however does show that she takes Eliquis will discontinue due to frequent recurrent falls risks outweigh the benefits, no overt bleeding noted follow-up HGB 9.2. Patient's initial head CT showed no significant abnormalities, right knee CT did show a large joint effusion, and pelvis CT with no acute osseous findings. Orthopedics were consulted initial joint effusion aspiration completed emergency department and follow-up aspiration by Orthopedics. Patient denied any chest pain, shortness a breath, nausea, vomiting difficulty urinating or defecating. Patient states symptoms have been worsening week and today she was unable to transfer her chair. Patient reports history of DVT, RA, hyperlipidemia, and hypertension
[2024-05-08 07:35] LABS: Glucose Synovial Fluid 58
[2024-05-15 15:19] LABS: Total Protein Synovial Fluid 4.6 g/dL
== END 2024-05-04 14:20 | disposition home health service (06) ==
LOC: ANHED 05-01 03:11 → ANH3MEDSUR 05-01 04:40
PROVIDERS: Orthopaedic Surgery; Admitting Provider Internal Medicine; Emergency Provider Preventive Medicine Aerospace Medicine; PCP Internal Medicine; Visit Provider Nurse Practitioner Family
DX: M25.461 Effusion, right knee (principal); M17.11 Unilateral primary osteoarthritis, right knee; M25.551 Pain in right hip; R29.6 Repeated falls; R19.5 Other fecal abnormalities; I10 Essential (primary) hypertension; E78.5 Hyperlipidemia, unspecified; M06.9 Rheumatoid arthritis, unspecified; M85.80 Other specified disorders of bone density and structure, unspecified site; D50.9 Iron deficiency anemia, unspecified; Z96.653 Presence of artificial knee joint, bilateral; Z86.718 Personal history of other venous thrombosis and embolism; Z79.01 Long term (current) use of anticoagulants; Z79.899 Other long term (current) drug therapy
CPT/HCPCS: 10160; 20610; 20611; 36415; 36430; 70450; 71045; 72170; 72192; 73562; 73630; 73700; 76881; 76942; 80053; 81001; 82274; 82306; 82550; 82728; 82945; 82948; 83010; 83036; 83540; 83550; 83615; 83690; 83880; 84157; 84484; 85025; 85027; 85610; 85730; 86850; 86860; 86870; 86880; 86900; 86901; 86902; 86922; 87070; 87075; 87205; 89051; 89060; 93005; 93306; 93970; 96361; 96365; 96366; 96374; 96375; 96376; 97110; 97116; 97166; 97530; 97535; 99285; A9270; G0378; J1885; J2270; J2919; J3010; J3480; J7040; J7050; J7120; P9016

== ENCOUNTER 2024-06-06 09:40 | Outpatient (CLI) | payer MEDICARE, BC, OTHER, SELFPAY ==
--- NOTE | ~2024-06-06 | US_ITS ---
EXAMINATION: US knee asp inj w image RT DATE: 06/06/2024 10:51 INDICATION: Right knee joint effusion TECHNIQUE: The procedure and its risks and benefits were discussed with the patient. Potential risks discussed included bleeding and infection. The skin was prepped and draped in sterile fashion. 1% lid ocaine was used for local anesthesia. Under ultrasound guidance, an 18-gauge spinal needle was advanc ed into the suprapatellar pouch of the right knee. The inner stylette was removed and the fluid was a spirated. The collected fluid was sent to the lab for studies as ordered by the referring physician. The needle was removed, and a dressing was applied. There were no immediate complications. FINDINGS: Ultrasound images demonstrate a moderate-sized right knee joint effusion with needle within the fluid at the suprapatellar pouch. IMPRESSION: 1. Successful ultrasound-guided right knee arthrocentesis yielding 24 mL of turbid yellowish fluid. Reviewed, dictated and finalized at location A. IMPRESSION: 1. Successful ultrasound-guided right knee arthrocentesis yielding 24 mL of tu rbid yellowish fluid.
== END 2024-06-06 09:41 | disposition home or self-care (01) ==
PROVIDERS: Visit Provider Orthopaedic Surgery
DX: M00.9 Pyogenic arthritis, unspecified (principal)
CPT/HCPCS: 20611; 87070; 87075; 87205

== ENCOUNTER 2024-07-12 13:05 | Inpatient (IN) | payer MEDICARE, BC, OTHER, SELFPAY ==
[2024-07-12] VITALS (15 sets, daily range): BP systolic 112–140; BP diastolic 67–83; PULSE 80–91; RESP 17–27; TEMP 36.8–37.4; O2SAT 97–100
--- NOTE | ~2024-07-12 | CT_ITS ---
EXAMINATION: CT brain wo con DATE: 07/13/2024 22:40 INDICATION: Headache. TECHNIQUE: Computed tomography (CT) of the head was performed without intravenous contrast. The mA wa s adjusted according to patient size. Iterative reconstruction technique was employed. The dose-lengt h product was 605.33 mGy-cm. COMPARISON: Head CT 04/30/2024 FINDINGS: There are scattered areas of low attenuation in the cerebral white matter, which is within normal limits for the patient's age. There is no intracranial hemorrhage, acute infarction, or abnorm al intracranial mass lesion. The ventricles are normal in size. The orbits are normal. The paranasal sinuses are clear. The mastoid air cells are normal. IMPRESSION: 1. Normal aging brain. Reviewed, dictated and finalized at location A. IMPRESSION: 1. Normal aging brain.
--- NOTE | ~2024-07-12 | XR_ITS ---
EXAMINATION: [id number] DATE: 07/17/2024 21:58 INDICATION: Right knee pain and swelling. TECHNIQUE: 2 views of right knee were obtained. COMPARISON: None. FINDINGS: Alignment is normal. No fracture. There is moderate osteoarthritis of lateral compartment a nd mild osteoarthritis of medial and patellofemoral compartments. There is a small knee joint effusio n. IMPRESSION: 1. Moderate right knee osteoarthritis. 2. Small right knee joint effusion. Reviewed, dictated and finalized at location A.
--- NOTE | ~2024-07-12 | XR_ITS ---
EXAM: XR abdomen/kub 1V DATE: 07/14/2024 14:05 HISTORY: constipation . COMPARISON: CT abdomen pelvis 07/12/2024. FINDINGS: G-tube. GE junction and right upper quadrant surgical clips. Lumbar spine fusion hardware. Normal bowel gas pattern. No organomegaly. No abnormal abdominal calcification. Regional bones and s oft tissues normal for age. IMPRESSION: No radiographic evidence of obstruction or ileus. Reviewed, dictated and finalized at location K.
--- NOTE | ~2024-07-12 | US_ITS ---
EXAMINATION:US venous doppler LE RT INDICATION:Right lower extremity swelling with pain TECHNIQUE: Multiple grayscale, color flow and Doppler images of the right lower extremity deep venous systems were obtained and reviewed. COMPARISON:No prior studies for comparison. FINDINGS: The common femoral, superficial femoral and popliteal veins demonstrate normal respiratory variation, augmentation and compressibility. Color flow is also seen within the posterior tibial, pe roneal, greater saphenous and profunda veins. IMPRESSION: 1: No lower extremity deep venous thrombosis. Reviewed, dictated and finalized at location B.
--- NOTE | ~2024-07-12 | CT_ITS ---
EXAMINATION: CT abdomen pelvis w con DATE: 07/12/2024 15:21 INDICATION: Abdominal pain. Gastrointestinal bleed. TECHNIQUE: Computed tomography (CT) of the abdomen and pelvis was performed with 100 mL Omnipaque-350 intravenous contrast. Automated exposure control and iterative reconstruction technique were employe d. The dose-length product was 290.85 mGy-cm. COMPARISON: CT dated 07/18/2023 FINDINGS: Chronic mild atelectasis or scarring at the bilateral lower lobes. 5 mm right lower lobe nodule which can be seen dating back to 2016 consistent with old granulomatous disease. Mild cardiomegaly. Athero sclerotic coronary artery calcific lesion. No pericardial effusion. Density at the high right atrium likely representing the distal tip of a central venous catheter. There are a few subcentimeter scatte red hepatic cysts. There is mild intra and extrapancreatic ductal dilation likely related to interval cholecystectomy with surgical clips in the gallbladder fossa. Spleen, pancreas and bilateral adrenal glands are normal. There are multiple bilateral renal cysts largest on the right measuring up to 2 c m. Bladder is normal. The uterus is not identified and has likely been surgically resected. Moderate amount of scattered colonic stool primarily in the proximal colon. Small bowel and appendix are abdiel l. No free intraperitoneal gas or fluid. No pathologically enlarged abdominal or pelvic lymphadenopat hy. Severe lumbar spondylosis. L4 and L5 laminectomies with combined anterior and instrument posterio r spinal fusion at L4-S1 with bilateral vertical dov and pedicle screw fixation. Moderate bilateral h ip osteoarthritis. IMPRESSION: 1. No acute intra-abdominal/pelvic process. Reviewed, dictated and finalized at location A.
--- NOTE | 2024-07-12 13:22 | ED.RECABL ---
HPI - Recheck/Abnormal Lab/Rx General Chief Complaint: Recheck/Abnormal Lab/Rx <Elida Mcgregor PA-C - Last Filed: 07/12/24 13:29> Stated Complaint: abnormal labs <Elida Mcgregor PA-C - Last Filed: 07/12/24 13:29> Time Seen by Provider: 07/12/24 13:22 <Elida Mcgregor PA-C - Last Filed: 07/12/24 13:29> Focused HPI: Patient is a 74-year-old female who presents the ED with report of abnormal labs. Patient reports she had labs drawn by her primary care doctor recently and showed a low hemoglobin. She was then sent here for further evaluation. She does have history of anemia, on iron supplementation. Does not think she has previously received a blood transfusion. She reports having a few episodes of tarry stools last week, but otherwise reports constipation. States her last bowel movement was Monday. Has been taking MiraLax without improvement. Reports diffuse abdominal pain, nausea. Denies vomiting. Denies fevers. Circulation Tender at bedside also reports decreased urination, generalized weakness. GENERAL: Elderly, frail, and in no acute distress. HEAD: Normocephalic, atraumatic. CHEST: Clear to auscultation. ?No respiratory distress. HEART: Regular rate and rhythm.? ABD: Diffuse tenderness throughout abdomen, G tube in place. NEURO: ?Alert and oriented x3. Patient screened in triage and initial orders placed.? ?Additional care and disposition to be based upon?diagnostic testing and treatment. <Elida Mcgregor PA-C - Last Filed: 07/12/24 13:29> Source: patient, family and old records reviewed <Elida Mcgregor PA-C - Last Filed: 07/12/24 13:29> Mode of arrival: ambulatory <Elida Mcgregor PA-C - Last Filed: 07/12/24 13:29> Limitations: no limitations <DEMARIO Riley Last Filed: 07/12/24 13:29> History of Present Illness HPI narrative: Agree with HPI <Davonte Negron MD - Last Filed: 07/13/24 16:23> Related Data Home Medications: Home Medications Medication Instructions Recorded Confirmed polyethylene glycol 3350 17 17 g PO DAILY 07/09/24 07/13/24 gram/dose oral powder (Miralax) magnesium 100 mg tablet 100 mg PO DAILY 07/13/24 07/13/24 <Elida Mcgregor PA-C - Last Filed: 07/12/24 13:29> Allergies/Adverse Reactions: Allergies Allergy/AdvReac Type Severity Reaction Status Date / Time amlodipine Allergy Severe Hives Verified 07/12/24 13:20 banana Allergy Severe throat Verified 07/12/24 13:20 Itching latex Allergy Severe Redness of Verified 07/12/24 13:20 Skin, baker lisinopril Allergy Severe Difficulty Verified 07/12/24 13:20 Breathing Penicillins Allergy Severe Rash Verified 07/12/24 13:20 pseudoephedrine Allergy Severe Difficulty Verified 07/12/24 13:20 Breathing tetracycline Allergy Severe Difficulty Verified 07/12/24 13:20 Breathing tree nut Allergy Severe Other Verified 07/12/24 13:20 dextromethorphan Allergy Intermediate Rash Verified 07/12/24 13:20 prednisone Allergy Unknown Other Verified 07/12/24 13:20 acetaminophen AdvReac Intermediate Nausea and Verified 07/12/24 13:20 Vomiting aspirin AdvReac Intermediate Nausea and Verified 07/12/24 13:20 Vomiting <Elida Mcgregor PA-C - Last Filed: 07/12/24 13:29> Review of Systems Review of Systems: All systems reviewed & are unremarkable except as noted in HPI and below <Davonte Negron MD - Last Filed: 07/13/24 16:23> Constitutional: Constitutional: Denies chills, Reports fatigue and Reports weakness <Davonte Negron MD - Last Filed: 07/13/24 16:23> ENT: Reports system reviewed and no additional complaints, except as documented <Davonte Negron MD - Last Filed: 07/13/24 16:23> Cardiovascular: Cardiovascular: Reports no additional cardiovascular complaints <Davonte Negron MD - Last Filed: 07/13/24 16:23> Respiratory: Respiratory: Reports no additional respiratory complaints <Davonte Harrison
[2024-07-12 14:26] LABS: Basophils Absolute Auto 0.1 K/mm3 (0.0-0.1); Eosinophils Absolute Auto 0.1 K/mm3 (0-0.3); Eosinophils Percent Auto 1.8 % (0-4.4); Hemoglobin 7.7 g/dL (12.0-15.0); Immature Granulocyte Percent A 1.6 % (0-0.5); Lymphocytes Absolute Auto 1.27 K/mm3 (0.9-3.2); Lymphocytes Percent Auto 20.6 % (18.3-44.2); Mean Corpuscular HGB Conc 30.8 g/dl (32-36); Mean Corpuscular Hemoglobin 27.7 pg (26-34); Mean Corpuscular Volume 89.9 fl (80-100); Mean Platelet Volume 8.8 fl (7.4-10.4); Monocytes Absolute Auto 0.4 K/mm3 (0.1-0.6); Neutrophils Absolute Auto 4.2 K/mm3 (1.3-6.7); Platelet Count Result 539 k/mm3 (150-375); Red Blood Count 2.78 M/mm3 (4.2-5.4); Red Cell Distribution Width 15.7 % (11.5-14.5); White Blood Count 6.2 K/mm3 (4.5-10.0)
[2024-07-12 14:36] LABS: INR 1.1; Prothrombin Time 14.9 Seconds (11.1-14.7)
[2024-07-12 14:37] LABS: Alanine Aminotransferase 9 U/L (6-35); Albumin Level 3.1 g/dL (3.5-5.1); Alkaline Phosphatase 91 U/L (38-126); Anion Gap 7 mmol/L (4-12); Aspartate Amino Transferase 33 U/L (14-36); Bilirubin,Total 0.4 mg/dL (0.2-1.3); Blood Urea Nitrogen 19 mg/dL (7-17); Calcium 8.9 mg/dL (8.4-10.2); Carbon Dioxide 28 mmol/L (22-30); Chloride 97 mmol/L (98-107); Estimated CRCL calculation 59 ml/min; Estimated Glomerular Filt Rate > 60; Glucose 105 mg/dL (65-110); Lipase 20 U/L (23-300); Partial Thromboplastin Time 38.1 Seconds (22.3-36.8); Potassium 3.8 mmol/L (3.4-5.0); Sodium 132 mmol/L (137-145)
[2024-07-12 15:11] LABS: Add Urine Microscopic? YES; Appearance Urine Turbid (Clear); Bacteria Urine 4+ /hpf; Bilirubin Urine 1+ (Negative); Blood Urine Negative (Negative); Color Urine Dark Yellow (Yellow); Glucose Urine UA Negative (Negative); Ketones Urine Trace mg/dL (Negative); Leukocyte Esterase Ur 1+ LEU/UL (Negative); Need Manual Microscopic Reviewed; Nitrate Urine Negative (Negative); Non Pathogenic Casts >20; Protein Urine 1+ mg/dL (Negative); Specific Grav Ur 1.025 (1.001-1.035); Squamous Epithelial Cell Urine Many /hpf (Few); pH Urine 5.5 (5.0-9.0)
[2024-07-12] MEDS: SODIUM CHLORIDE 0.9% IV 1,000 ML 999 ML IV CONT (19:32)
--- NOTE | 2024-07-12 22:20 | PC.NURSE ---
called lab regarding potential blood transfusion, and they state they will call ER when they have antibody results back.
--- NOTE | 2024-07-12 23:11 | PC.NURSE ---
Care and report given to DERRICK Horowitz. all questions answered.
--- NOTE | 2024-07-12 23:39 | PC.NURSE ---
Consent for blood obtained by this RN.
[2024-07-13] VITALS (11 sets, daily range): BP systolic 129–150; BP diastolic 70–90; PULSE 76–88; RESP 16–20; TEMP 36.1–37.2; O2SAT 99–100; BMI 19.6
--- NOTE | 2024-07-13 00:17 | PC.NURSE ---
ASSUMED CARE OF PT FROM DERRICK GARCIA AT [id number]. PT RESTING COMFORTABLY IN BED. AWAITING CALL FROM LAB REGARDING BLOOD COMPONENTS.
--- NOTE | 2024-07-13 03:29 | PC.NURSE ---
ER CHARGE MARIKA CONTACTED LAB REGARDING STATUS OF BLOOD. LAB SAID THEY WERE STILL RUNNING PT BLOOD TO CHECK ANTIBODIES AND WOULD CONTACT ER WHEN RESULTED. PT RESTING COMFORTABLY IN BED. THIS RN AND SALESPERSON FURNITURESARAI PONCE ASSISTED PT ONTO BEDPAN AND PROVIDED PT WITH NEW BLANKETS. PT VS UPDATED IN CHART.
--- NOTE | 2024-07-13 06:50 | ADMGEN ---
This patient, Tiesha Stock, was admitted to [facility] Surg Room 332-02. Patient/family oriented to hospital policies and general routines including ID bracelet, bed and alarms, visiting hours, pain management, procedures, bathroom and other care routines, personal items, smoking policy, room service/diet, and visiting hours. Information on how to activate the Rapid Response Team has been discussed. Patient/Family are encouraged to report perceived risks to care and to ask questions if they do not understand what they are told or what they should do.
--- NOTE | 2024-07-13 08:38 | PM.IMHP ---
H&P: HPI History of Present Illness Date/Time: 07/13/24 08:38 Chief Complaint: abnormal labs Narrative: 74 year old female with PMH of acute on chronic anemia, HLD, HTN, RA, with PEG tube in place (unknown reason) and history of DVT and GI bleed presents to the hospital with report of abnormal labs drawn by her PCP of a low hemoglobin. Patient is in the room with her daughter and who help answer questions with patient permission. Patient states she has been feeling increasingly tired and weak since april. She had one fall in april and has not walked since then, only ambulating with a wheelchair. She reports several episodes of tarry stools, but has not had a bowel movement since last monday. She is scheduled for a colonoscopy/EGD on 08/[address] Olivares but is unsure why. Upon chart review this is likely due to her prior GI bleed in april while on eliquis. Patient has not been on eliquis since that time and denies recent falls. Will obtain an occult to reassess possible GI bleed. Patient notes that she has been having increase pain to her PEG tube. She is unsure why this was placed last fall while in [facility] for her knee. She states this was last used in February. She has not been receiving any tube feedings or taking medications through this since that time. Patient is wanting to have this removed. Will obtain records from [facility] to see who placed this tube and why as patient and family are unsure. Patient denies chest pain, shortness of breath, nausea/vomiting and states she has been having a good appetite since being at home. ED workup: H/H 7.7/25.0 with plt 539, otherwise unremarkable. Chemistry unremarkable. UA with turbid appearance, 1+ protein, trace ketones, 1+ bili, 1+ leukocytes, 11-20 RBC, 11-20 WBC, 4+ bacteria, many squamous epithelial cells. Possible contaminant. Abd/pelvis CT: no acute intra abdominal/pelvic process. Review of Systems Review of Systems: All systems reviewed & are unremarkable except as noted in HPI and below PMFSH Past Medical History Medical History (Updated 07/13/24 @ 05:02 by Jacobo Bowers MD) Acute on chronic anemia Blood thinned due to long-term anticoagulant use DVT (deep venous thrombosis) Hyperlipidemia Hypertension Occult blood in stools Rheumatoid arthritis Surgical History Surgical History (Updated 06/04/24 @ 10:16 by EVELINE Robert) H/O right knee surgery H/O: hysterectomy Family History Family History (Updated 06/04/24 @ 10:17 by EVELINE Robert) Father , black lung disease No problems noted. Mother , from OJI gangrene. No problems noted. Sibling Acute myocardial infarction Sibling No problems noted. Social History Social History (Updated 06/04/24 @ 10:19 by EVELINE Robert) Smoking status: Never smoker Second hand tobacco smoke exposure: No Alcohol intake: current Substance use: never Substance use type: does not use Do You Feel Safe in your Home?: Yes Lack of Transportation: No Lack of Food: Never True Current Housing: I Have Housing Concerned About Future Housing: No Difficulty Paying Gas/Electric Bills: No Difficulty Paying for Meds: No Currently Unemployed: No Education: Master's Degree or Higher Difficulty w/ Childcare or Family Care: No Living arrangements: with family Occupation/Education: retired 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
[2024-07-13 12:10] LABS: Basophils Percent Auto 0.6 % (0.2-1.2); Eosinophils Percent Auto 0.2 % (0-4.4); Hematocrit 23.6 % (37.0-47.0); Hemoglobin 7.1 g/dL (12.0-15.0); Immature Granulocyte Absolute 0.07 K/mm3 (0.00-0.031); Immature Granulocyte Percent A 1.4 % (0-0.5); Lymphocytes Absolute Auto 1.27 K/mm3 (0.9-3.2); Lymphocytes Percent Auto 25.1 % (18.3-44.2); Mean Corpuscular HGB Conc 30.1 g/dl (32-36); Mean Corpuscular Hemoglobin 27.2 pg (26-34); Mean Corpuscular Volume 90.4 fl (80-100); Monocytes Absolute Auto 0.6 K/mm3 (0.1-0.6); Monocytes Percent Auto 10.9 % (2.6-8.5); Neutrophils Absolute Auto 3.1 K/mm3 (1.3-6.7); Neutrophils Percent Auto 61.8 % (45.5-73.1); Platelet Count Result 495 k/mm3 (150-375); Red Blood Count 2.61 M/mm3 (4.2-5.4); Red Cell Distribution Width 15.6 % (11.5-14.5); White Blood Count 5.1 K/mm3 (4.5-10.0)
[2024-07-13 12:21] LABS: Alanine Aminotransferase 11 U/L (6-35); Albumin Level 2.8 g/dL (3.5-5.1); Alkaline Phosphatase 76 U/L (38-126); Anion Gap 8 mmol/L (4-12); Aspartate Amino Transferase 22 U/L (14-36); Bilirubin,Total 0.1 mg/dL (0.2-1.3); Blood Urea Nitrogen 19 mg/dL (7-17); Calcium 8.5 mg/dL (8.4-10.2); Carbon Dioxide 24 mmol/L (22-30); Chloride 102 mmol/L (98-107); Estimated CRCL calculation 70 ml/min; Estimated Glomerular Filt Rate > 60; Glucose 199 mg/dL (65-110); Potassium 3.6 mmol/L (3.4-5.0); Sodium 134 mmol/L (137-145)
[2024-07-13] MEDS: FERROUS SULFATE 325 MG TABLET DR PO (16:44)
[2024-07-14 00:30] LABS: Glucose Point of Care 123 mg/dl (65-105)
[2024-07-14 00:46] VITALS: BP 160/82; PULSE 76; TEMP 37; O2SAT 100
[2024-07-14 05:41] VITALS: BP 153/84; PULSE 72; RESP 18; TEMP 36.9; O2SAT 100
[2024-07-14] MEDS: FOLIC ACID 1 MG TABLET PO (08:16)
[2024-07-14] MEDS: FERROUS SULFATE 325 MG TABLET DR PO ×2 (08:16→18:01)
[2024-07-14 08:59] LABS: Basophils Absolute Auto 0.1 K/mm3 (0.0-0.1); Basophils Percent Auto 1.4 % (0.2-1.2); Eosinophils Absolute Auto 0.5 K/mm3 (0-0.3); Hematocrit 30.1 % (37.0-47.0); Hemoglobin 9.2 g/dL (12.0-15.0); Immature Granulocyte Absolute 0.08 K/mm3 (0.00-0.031); Immature Granulocyte Percent A 0.8 % (0-0.5); Lymphocytes Absolute Auto 3.14 K/mm3 (0.9-3.2); Mean Corpuscular HGB Conc 30.6 g/dl (32-36); Mean Corpuscular Hemoglobin 25.6 pg (26-34); Mean Corpuscular Volume 83.8 fl (80-100); Mean Platelet Volume 8.8 fl (7.4-10.4); Monocytes Absolute Auto 0.4 K/mm3 (0.1-0.6); Monocytes Percent Auto 3.7 % (2.6-8.5); Neutrophils Absolute Auto 5.9 K/mm3 (1.3-6.7); Neutrophils Percent Auto 58.1 % (45.5-73.1); Platelet Count Result 568 k/mm3 (150-375); Red Blood Count 3.59 M/mm3 (4.2-5.4); Red Cell Distribution Width 21.1 % (11.5-14.5); White Blood Count 10.1 K/mm3 (4.5-10.0)
[2024-07-14 09:02] LABS: Alanine Aminotransferase 12 U/L (6-35); Albumin Level 2.9 g/dL (3.5-5.1); Alkaline Phosphatase 77 U/L (38-126); Anion Gap 8 mmol/L (4-12); Aspartate Amino Transferase 28 U/L (14-36); Bilirubin,Total 0.4 mg/dL (0.2-1.3); Blood Urea Nitrogen 20 mg/dL (7-17); Calcium 8.5 mg/dL (8.4-10.2); Carbon Dioxide 25 mmol/L (22-30); Chloride 102 mmol/L (98-107); Estimated CRCL calculation 70 ml/min; Estimated Glomerular Filt Rate > 60; Glucose 134 mg/dL (65-110); Potassium 3.3 mmol/L (3.4-5.0); Sodium 135 mmol/L (137-145)
[2024-07-14 09:06] LABS: Iron 142 ug/dL (37-170)
[2024-07-14 09:16] LABS: Percent Iron Saturation 92 % (20-50)
[2024-07-14 10:09] LABS: Folic Acid 9.3 ng/mL (2.76->20); Vitamin B12 > 1000.0 pg/mL (239-931)
--- NOTE | 2024-07-14 12:02 | PM.IMPN ---
Progress Note: A&P Assessment and Plan (1) Anemia: Code(s): D64.9 - Anemia, unspecified Status: Acute Assessment and Plan: Reports to hospital with report of abnormal labs drawn by her PCP of low H/H. On arrival H/H 7.7. Not on anticoagulation. - H/H 9.2/30.1 on am labs - s/p pRBC transfusion on 07/13 - Continue iron and folate supplementation - iron panel: iron 142, TIBC 154, % sat 92 - b12 and folate WNL - occult: negative (2) Acute UTI: Code(s): N39.0 - Urinary tract infection, site not specified Status: Acute Assessment and Plan: - UA: turbid appearance, 1+ protein, trace ketones, 1+ bili, 1+ leukocytes, 11-20 RBC, 11-20 WBC, 4+ bacteria, many squamous epithelial cells. Possible contaminant. - UC obtained on 07/13: negative - no previous micro to be reviewed - discontinued rocephin (3) Rheumatoid arthritis: Code(s): M06.9 - Rheumatoid arthritis, unspecified Status: Acute Assessment and Plan: Patient has a port present in her left upper chest for prior RA medication, last accessed February 2024 to ensure patency. She is unsure what this medication was. 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 (4) Hypertension: Code(s): I10 - Essential (primary) hypertension Status: Acute Assessment and Plan: History of hypertension. States her PCP recently took her off her antihypertensives and she is well controlled with diet. - Monitor Time Spent With Patient Time with patient: 25 - 35 minutes Subjective Date/time seen: 07/14/24 12:02 Interval history: 74 year old female with PMH of acute on chronic anemia, HLD, HTN, RA, with PEG tube in place (unknown reason) and history of DVT and GI bleed presents to the hospital with report of abnormal labs drawn by her PCP of a low hemoglobin. Patient is pleasant lying comfortably in bed. She states that she has not had a bowel movement since last monday, 07/05 and endorses generalized abdominal pain. She denies nausea/vomiting, but does not a decrease in appetite. A KUB was obtained and showed no radiographic evidence of obstruction or ileus. No long after the KUB her nurse called stating that she had a large BM. This was sent to lab and the occult was negative. Patient had received a blood transfusion yesterday and her H/H responded appropriately this morning at 9.2/30.1. She continues to endorse increased weakness and fatigue. PT/OT ordered. Review of Systems Review of Systems: All systems reviewed & are unremarkable except as noted in HPI and below Exam Narrative: AF HR 72 RR 18 SpO2 100 BP 153/84 General: frail female in no acute respiratory distress who is chronically ill appearing, lying semi recumbent in bed. HEENT: Normocephalic. Atraumatic. Pupils equal round reactive to light. Extraocular movement intact. Sclera clear and anicteric. No facial asymmetry. Chest: Lungs are clear to auscultation bilaterally. No wheezes or crackles. Port in placed on left upper chest. CV: Heart was regular rate and rhythm. S1-S2. No murmurs, gallops, or rubs. Abd: Abdomen was soft. Mild tenderness around PEG tube. No signs of infection (no erythema, edema, redness). Nondistended. Positive bowel sounds. No organomegaly or masses. Ext: No clubbing, cyanosis, or edema. 2+ DP pulses bilaterally. Neuro: Patient is alert. Cranial nerves 2-12 are intact. Speech is clear and soft. Objective Data Vital Signs Vital Signs: Vital Signs - 24 hr 07/13/24 13:28 07/13/24 13:07 07/13/24 14:28 Temperature 98.2 F 98.1 F 98.1 F Pulse Rate 81 80 80 Respiratory Rate 16 16 16 Blood Pressure 129/72 140/79 135/70 Pulse Oximetry 100 100 100 Oxygen Delivery 07/13/24 15:28 07/13/24 16:55 07/13/24 21:33 Temperature 99.0 F 98.3 F 98.5 F Pulse Rate 83 88 78 Respiratory Rate 20 16 18 Blood Pressure 144/80 H 141/73 H 150/90 H Pulse Oximetry 100 100 100 Oxygen Delivery 07/13/24 20:00 07/13/24
[2024-07-14 14:00] VITALS: BP 154/80; PULSE 70; RESP 18; TEMP 36.9; O2SAT 100
[2024-07-14 16:27] LABS: IFOB Positive Control Positive; Immunochemical Fecal Occult Bl Negative (N)
[2024-07-14] MEDS: traMADol HCL (*CRX) 25 MG TABLET PO (21:09)
[2024-07-14 21:48] VITALS: BP 152/89; PULSE 72; RESP 17; TEMP 37.3; O2SAT 99
[2024-07-15 05:30] VITALS: BP 188/62; PULSE 73; RESP 18; TEMP 36.6; O2SAT 100
[2024-07-15 05:53] LABS: Glucose Point of Care 96 mg/dl (65-105)
[2024-07-15] MEDS: traMADol HCL (*CRX) 25 MG TABLET PO (06:02)
[2024-07-15 06:56] VITALS: BP 160/90
--- NOTE | 2024-07-15 07:37 | PM.IMPN ---
Progress Note: A&P Assessment and Plan (1) Anemia: Code(s): D64.9 - Anemia, unspecified Status: Acute Assessment and Plan: Reports to hospital with report of abnormal labs drawn by her PCP of low H/H. On arrival H/H 7.7. Not on anticoagulation. - H/H 9.2/30.1 on am labs - s/p pRBC transfusion on 07/13 - Continue iron and folate supplementation - iron panel: iron 142, TIBC 154, % sat 92 - b12 and folate WNL - occult: negative (2) Acute UTI: Code(s): N39.0 - Urinary tract infection, site not specified Status: Acute Assessment and Plan: - UA: turbid appearance, 1+ protein, trace ketones, 1+ bili, 1+ leukocytes, 11-20 RBC, 11-20 WBC, 4+ bacteria, many squamous epithelial cells. Possible contaminant. - UC obtained on 07/13: negative - no previous micro to be reviewed - discontinued rocephin (3) Rheumatoid arthritis: Code(s): M06.9 - Rheumatoid arthritis, unspecified Status: Acute Assessment and Plan: Patient has a port present in her left upper chest for prior RA medication, last accessed February 2024 to ensure patency. She is unsure what this medication was. She has not seen her human relations professor since last year because she retired. - will need to follow up with a human relations professor outpatient, plan to give resources at discharge (4) Hypertension: Code(s): I10 - Essential (primary) hypertension Status: Acute Assessment and Plan: History of hypertension. States her PCP recently took her off her antihypertensives and she is well controlled with diet. - Patients blood pressures remain uncontrolled, she was previously on diltiazem 240 mg daily and metoprolol 25 mg daily per [facility] report - Metoprolol 25 mg daily started - Monitor (5) History of seizure: Code(s): Z87.898 - Personal history of other specified conditions Status: Acute Assessment and Plan: Non convulsive seizure history on [facility] report. Patient was on Keppra during that hospitalization, but has not had this since discharge in early january. Patient and family deny seizure like activity since then. Discussed this with Dr. Blackwood and will consult neuro at this time as unable to clear patient without further evaluating. Will not start keppra at this time. - neuro consulted (6) Moderate protein malnutrition: Code(s): E44.0 - Moderate protein-calorie malnutrition Status: Acute Assessment and Plan: MST 4 with inadequate energy intake as evidenced by significant weight loss of -22% x 4 months, poor intake for greater than 1 month, and NFPE findings for moderate subcutaneous fat loss (cheeks) and moderate muscle wasting (christianity, clavicle). - Patient has PEG tube in place which has not been accessed since February 2024 - Per [facility] report this was placed on 01/21 for poor nutrition - Nutrition following Time Spent With Patient Time with patient: 25 - 35 minutes Subjective Date/time seen: 07/15/24 07:37 Interval history: 74 year old female with PMH of acute on chronic anemia, HLD, HTN, RA, with PEG tube in place (unknown reason) and history of DVT and GI bleed presents to the hospital with report of abnormal labs drawn by her PCP of a low hemoglobin. Patient is pleasant lying in bed. She states she feels better than yesterday, but still endorses weakness. She has her and resident caregiver in the room. Patient denies chest pain, shortness of breath, nausea/vomiting and changes in bowel/bladder. Discussed with patient in depth about her current code status. She states she would like to be made a DNI at this time. Code status changed. Received a phone call from Sera with GI due to patient being scheduled for an EGD/colonoscopy with Dr. Olivares on 07/17. She states that anesthesia is concerned about doing the procedure due to patients prior non convulsive seizure history on [facility] report. Patient was on Keppra during that hospitalization, but has not had this since discharge in [place]
[2024-07-15 07:43] LABS: Basophils Absolute Auto 0.1 K/mm3 (0.0-0.1); Basophils Percent Auto 1.1 % (0.2-1.2); Eosinophils Absolute Auto 0.8 K/mm3 (0-0.3); Eosinophils Percent Auto 7.1 % (0-4.4); Hematocrit 29.4 % (37.0-47.0); Immature Granulocyte Absolute 0.12 K/mm3 (0.00-0.031); Immature Granulocyte Percent A 1.1 % (0-0.5); Lymphocytes Absolute Auto 3.36 K/mm3 (0.9-3.2); Lymphocytes Percent Auto 31.2 % (18.3-44.2); Mean Corpuscular HGB Conc 30.6 g/dl (32-36); Mean Corpuscular Hemoglobin 26.2 pg (26-34); Mean Corpuscular Volume 85.5 fl (80-100); Mean Platelet Volume 9.1 fl (7.4-10.4); Monocytes Absolute Auto 0.9 K/mm3 (0.1-0.6); Monocytes Percent Auto 7.9 % (2.6-8.5); Neutrophils Absolute Auto 5.6 K/mm3 (1.3-6.7); Neutrophils Percent Auto 51.6 % (45.5-73.1); Nucleated Red Blood Cells Perc 0.2 % (0.0-0.2); Platelet Count Result 512 k/mm3 (150-375); Red Blood Count 3.44 M/mm3 (4.2-5.4); Red Cell Distribution Width 20.7 % (11.5-14.5); White Blood Count 10.8 K/mm3 (4.5-10.0)
[2024-07-15 08:00] LABS: Alanine Aminotransferase 12 U/L (6-35); Albumin Level 2.7 g/dL (3.5-5.1); Alkaline Phosphatase 69 U/L (38-126); Anion Gap 8 mmol/L (4-12); Aspartate Amino Transferase 28 U/L (14-36); Bilirubin,Total 0.4 mg/dL (0.2-1.3); Blood Urea Nitrogen 16 mg/dL (7-17); Calcium 8.3 mg/dL (8.4-10.2); Carbon Dioxide 26 mmol/L (22-30); Chloride 99 mmol/L (98-107); Estimated CRCL calculation 85 ml/min; Estimated Glomerular Filt Rate > 60; Glucose 86 mg/dL (65-110); Potassium 3.5 mmol/L (3.4-5.0); Sodium 133 mmol/L (137-145)
[2024-07-15] MEDS: FOLIC ACID 1 MG TABLET PO (10:38)
[2024-07-15] MEDS: FERROUS SULFATE 325 MG TABLET DR PO ×2 (10:39→17:14)
[2024-07-15 10:42] VITALS: O2SAT 99
[2024-07-15 11:16] VITALS: BMI 19.6
--- NOTE | 2024-07-15 13:04 | P.CDI_ITS ---
CDI Query Clarification Request BMI: 19.7 Nutritional Diagnostic Statement: Please refer to the comprehensive nutrition assessment for further information. If you agree with diagnosis of Moderate protein calorie malnutrition related to inadequate energy intake as evidenced by a significant weight loss of -22% x 4 months, pt report of poor intake for greater than 1 month, and NFPE findings for moderate subcutaneous fat loss (cheeks) and moderage muscle wasting (evangelical, clavicle). Please specify severity if known. * Mild * Moderate * Severe * Other/Unknown <Malathi Velarde RN - Last Filed: 07/15/24 13:05> Clarified Diagnosis Clarified Diagnosis: Moderate <Rachel Martini PA-C - Last Filed: 07/15/24 15:50>
[2024-07-15 14:00] VITALS: BP 140/80; PULSE 75; RESP 18; TEMP 36.3; O2SAT 100
[2024-07-15 20:58] VITALS: BP 128/82; PULSE 78; RESP 20; TEMP 36.8; O2SAT 100
[2024-07-15 22:00] VITALS: RESP 17
[2024-07-16 04:56] VITALS: BP 148/86; PULSE 77; RESP 18; TEMP 36.9; O2SAT 98
[2024-07-16] MEDS: traMADol HCL (*CRX) 25 MG TABLET PO ×2 (06:19→12:35)
[2024-07-16 08:28] VITALS: O2SAT 98
--- NOTE | 2024-07-16 08:28 | PM.IMPN ---
Progress Note: A&P Assessment and Plan (1) Anemia: Code(s): D64.9 - Anemia, unspecified Status: Acute Assessment and Plan: Reports to hospital with report of abnormal labs drawn by her PCP of low H/H. On arrival H/H 7.7/25. Not on anticoagulation. - H/H 8.9/29.7 on am labs - s/p pRBC transfusion on 07/13 - Continue iron and folate supplementation - iron panel: iron 142, TIBC 154, % sat 92 - b12 and folate WNL - occult: negative - GI consulted Plan for EGD/colonoscopy tomorrow to rule out GI cause of blood loss (2) Acute UTI: Code(s): N39.0 - Urinary tract infection, site not specified Status: Acute Assessment and Plan: - UA: turbid appearance, 1+ protein, trace ketones, 1+ bili, 1+ leukocytes, 11-20 RBC, 11-20 WBC, 4+ bacteria, many squamous epithelial cells. Possible contaminant. - UC obtained on 07/13: negative - no previous micro to be reviewed - discontinued rocephin (3) Rheumatoid arthritis: Code(s): M06.9 - Rheumatoid arthritis, unspecified Status: Acute Assessment and Plan: Patient has a port present in her left upper chest for prior RA medication, last accessed February 2024 to ensure patency. She is unsure what this medication was. She has not seen her chisel worker since last year because she retired. - will need to follow up with a chisel worker outpatient, plan to give resources at discharge (4) Hypertension: Code(s): I10 - Essential (primary) hypertension Status: Acute Assessment and Plan: History of hypertension. States her PCP recently took her off her antihypertensives and she is well controlled with diet. - Patients blood pressures remain uncontrolled, she was previously on diltiazem 240 mg daily and [facility] - Metoprolol 25 mg daily started - Monitor (5) History of seizure: Code(s): Z87.898 - Personal history of other specified conditions Status: Acute Assessment and Plan: Non convulsive seizure history on [facility] report. Patient was on Keppra during that hospitalization, but has not had this since discharge in early january. Patient and family deny seizure like activity since then. Discussed this with Dr. Nemani and will consult neuro at this time as unable to clear patient without further evaluating. Will not start keppra at this time. - neuro consulted defer the anticonvulsants and obtain an EEG (6) Moderate protein malnutrition: Code(s): E44.0 - Moderate protein-calorie malnutrition Status: Acute Assessment and Plan: MST 4 with inadequate energy intake as evidenced by significant weight loss of -22% x 4 months, poor intake for greater than 1 month, and NFPE findings for moderate subcutaneous fat loss (cheeks) and moderate muscle wasting (mormonism, clavicle). - Patient has PEG tube placed for prior dysphagia while at [facility] on January 21, has not been accessed since February 2024. Discussed with patient that though she has not been using the peg tube she may need this for further nutrition given that she has lost 40-50 lbs since August. - Nutrition following Time Spent With Patient Time with patient: 25 - 35 minutes Subjective Date/time seen: 07/16/24 08:28 Interval history: 74 year old female with PMH of acute on chronic anemia, HLD, HTN, RA, with PEG tube in place (unknown reason) and history of DVT and GI bleed presents to the hospital with report of abnormal labs drawn by her PCP of a low hemoglobin. Patient is pleasant lying in bed with dog daycare provider and at bedside. She states she is feeling a bit better today. She endorses slight nausea with meals and only eats small amounts. More information was obtained in regards to her PEG tube and it appears that it was placed for prior dysphagia while at [facility]. Discussed with patient that though she has not been using the peg tube she may need this for further nutrition given that she has lost 40-50 lbs since august. P
[2024-07-16 08:46] LABS: Basophils Percent Auto 0.4 % (0.2-1.2); Eosinophils Absolute Auto 0.4 K/mm3 (0-0.3); Eosinophils Percent Auto 3.9 % (0-4.4); Hematocrit 29.7 % (37.0-47.0); Hemoglobin 8.9 g/dL (12.0-15.0); Immature Granulocyte Absolute 0.25 K/mm3 (0.00-0.031); Immature Granulocyte Percent A 2.8 % (0-0.5); Lymphocytes Absolute Auto 2.47 K/mm3 (0.9-3.2); Lymphocytes Percent Auto 27.2 % (18.3-44.2); Mean Corpuscular Hemoglobin 25.9 pg (26-34); Mean Corpuscular Volume 86.3 fl (80-100); Mean Platelet Volume 8.9 fl (7.4-10.4); Monocytes Absolute Auto 0.9 K/mm3 (0.1-0.6); Monocytes Percent Auto 9.7 % (2.6-8.5); Neutrophils Absolute Auto 5.1 K/mm3 (1.3-6.7); Nucleated Red Blood Cells Perc 0.3 % (0.0-0.2); Platelet Count Result 500 k/mm3 (150-375); Red Blood Count 3.44 M/mm3 (4.2-5.4); Red Cell Distribution Width 20.4 % (11.5-14.5); White Blood Count 9.1 K/mm3 (4.5-10.0)
[2024-07-16 09:00] LABS: Alanine Aminotransferase 11 U/L (6-35); Albumin Level 2.7 g/dL (3.5-5.1); Alkaline Phosphatase 75 U/L (38-126); Anion Gap 8 mmol/L (4-12); Aspartate Amino Transferase 23 U/L (14-36); Bilirubin,Total 0.4 mg/dL (0.2-1.3); Blood Urea Nitrogen 17 mg/dL (7-17); Calcium 8.1 mg/dL (8.4-10.2); Carbon Dioxide 25 mmol/L (22-30); Chloride 99 mmol/L (98-107); Estimated CRCL calculation 85 ml/min; Estimated Glomerular Filt Rate > 60; Glucose 80 mg/dL (65-110); Potassium 3.5 mmol/L (3.4-5.0); Sodium 132 mmol/L (137-145)
[2024-07-16 09:03] VITALS: PULSE 77
[2024-07-16] MEDS: METOPROLOL SUCCINATE EXT REL 25 MG TABCR PO (09:03)
[2024-07-16] MEDS: FOLIC ACID 1 MG TABLET PO (09:03)
[2024-07-16] MEDS: FERROUS SULFATE 325 MG TABLET DR PO ×2 (09:03→17:28)
[2024-07-16 09:58] LABS: Anisocytosis 1+; Hypochromasia 1+; Platelet Estimate Increased (Adequate); Schistocytes None Seen
--- NOTE | 2024-07-16 11:40 | WPDNEURCNPN ---
Assessment and Plan Assessment and plan (1) History of seizure: Code(s): Z87.898 - Personal history of other specified conditions Status: Acute Plan 1. History of anticonvulsants started at the other institution though no previous documentation of the seizure is available her ,initial exam at this stage is grossly nonfocal, as per the review of the old record her CT scan of the head in February was also normal and CT scan cervical spine has documented uncomplicated appearing ACDF hardware spanning from C5-C7 with fused interbody plugged at C5-C6 and C6 and 7.2 at present patient is not receiving any anticonvulsants I would defer the medication and obtain the routine EEG. Consult date: 07/16/24 HPI: Tiesha Stock is a 74 year old female Admitted to the hospital through the emergency room with information that she had labs drawn by her primary care physician which documented low hemoglobin and she was sent to the hospital for the further evaluation. Patient does have ongoing history of anemia and has been on iron supplementation. He did not remember whether she has received blood transfusion or not in the past. But she did mention she has had few episodes of black stools last week patient has been taking the MiraLax for the constipation. There was no specific medication what she was taking at home except the magnesium tablets but she was documented to have multiple allergies as documented. in the past she has ongoing history of acute on chronic anemia, hypertension, rheumatoid arthritis, and occult blood in the stools. She is currently not a smoker and her initial exam in the emergency room documented her to be frail without any focal neurological signs, her vital signs were normal, CBC was normal, BMP revealed sodium 134 blood sugar 199, UA was with 1+ leukocyte Estrace, and since admission she has had the CT scan of the abdomen and pelvis which documented no significant abnormalities, head CT scan normal without mention of hydrocephalus or space-occupying lesions. as per the reports from other hospital that is [facility] patient was reportedly on Keppra during the hospitalization but has not had any seizure as per the family ever since he was discharged in January of this year Dr. Hilario Webb was contacted on telephone anticonvulsant was not started and that is why a Neurology consultation was obtained. [facility] Past Medical History Medical History Acute on chronic anemia Blood thinned due to long-term anticoagulant use DVT (deep venous thrombosis) Hyperlipidemia Hypertension Occult blood in stools Rheumatoid arthritis Surgical History Surgical History (Updated 06/04/24 @ 10:16 by EVELINE Robert) H/O right knee surgery H/O: hysterectomy Family History Family History (Updated 06/04/24 @ 10:17 by EVELINE Robert) Father , black lung disease No problems noted. Mother , from OJI gangrene. No problems noted. Sibling Acute myocardial infarction Sibling No problems noted. Social History Social History (Updated 06/04/24 @ 10:19 by EVELINE Robert) Smoking status: Never smoker Second hand tobacco smoke exposure: No Alcohol intake: current Substance use: never Substance use type: does not use Do You Feel Safe in your Home?: Yes Lack of Transportation: No Lack of Food: Never True Current Housing: I Have Housing Concerned About Future Housing: No Difficulty Paying Gas/Electric Bills: No Difficulty Paying for Meds: No Currently Unemployed: No Education: Master's Degree or Higher Difficulty w/ Childcare or Family Care: No Living arrangements: with family Occupation/Education: retired 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
--- NOTE | 2024-07-16 12:41 | WPDGICN ---
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 Chronic blood-loss anemia /nausea / early satiety / weight loss /melena/early satiety/PEG tube: patient has never had an EGD. Last colonoscopy approximately 2 years ago at [facility], results unknown. Family history negative for CRC or IBD. Patient had knee surgery in November and following surgery had seizures. Following her seizure she was having dysphagia and had a PEG tube placed by interventional Radiology on January 21. Patient states the dysphagia has resolved and she has been tolerating p.o. intake without restrictions and has not used her PEG tube for nutrition nor pill since February. Status post cholecystectomy January 05. Patient with chronic but stable anemia with baseline hemoglobin around 7-8. Patient did receive 1 unit of PRBCs this admission. Patient admits to prior episodes of melena but was unable to say when the last episode occurred. She is on oral iron. Patient was seen during her last hospitalization in April at which time an outpatient EGD and colonoscopy were scheduled for next month. patient has lost between 40-50 lb since August. She denies any appetite loss but states that she only eats small amounts. She has occasional nausea without vomiting. She has some discomfort around PEG site but site shows no irritation or drainage. Fecal occult blood was negative this admission. Labs today show HGB 9, HCT 30, MCV 86, platelets 500. B12 and folate normal. No current signs of active GI bleeding. EGD and colonoscopy tomorrow to rule out GI source of blood loss Patient may require supplemental nutrition with bolus feedings in the near future given her weight loss, will keep PEG in place. Clear liquid diet today bowel prep to start this evening NPO after midnight further recommendations to follow endoscopy Thank you very much for allowing me to share in the care this very nice patient. This report may have been done utilizing a voice recognition system. Attempts have been made to correct errors. However, there may be uncorrected grammatical, spelling, and recognition errors present. GI Consult Note Consult date/time: 07/16/24 12:41 Reason for consult: Anemia and weight loss HPI: This is a pleasant 74 year old female with a past medical surgical history of acute on chronic anemia, hyperlipidemia, hypertension, rheumatoid arthritis, seizures, hysterectomy, PEG tube placement, and history of DVT and GI bleed. She presents to the hospital today for evaluation of abnormal labs drawn by her PCP showing a low hemoglobin. The patient is accompanied by her daughter and who help answer questions with patient permission. The patient underwent a right knee surgery on 12/14/2023 at [facility] and following this procedure the patient was having seizures. After the seizures the patient was having dysphagia and interventional radiology placed a PEG tube on 01/22/2024. She also underwent a cholecystectomy on 01/05/2024. The patient was seen by Ace ZAVALA during a recent hospitalization in April 2024 for anemia and heme-positive stools. During that hospitalization an outpatient EGD and colonoscopy was recommended which is scheduled for next month with Dr. Olivares. The patient states she has been feeling increasingly tired and weak since April. She had one fall in April and has not walked since then, only ambulating with a wheelchair. She reports several episodes of tarry stools but was unable to say when
[2024-07-16 14:00] VITALS: BP 122/66; PULSE 78; RESP 16; TEMP 36.9; O2SAT 100
[2024-07-16] MEDS: polyethylene glycoL 3350 238 GM BOTTLE PO (15:32)
[2024-07-16] MEDS: BISACODYL 5 MG TABLET EC 20 MG PO (15:32)
[2024-07-16] MEDS: ONDANSETRON HCL ODT 4 MG TABLET PO (18:09)
[2024-07-16 20:58] VITALS: BP 151/77; PULSE 81; RESP 16; TEMP 37.3; O2SAT 100
[2024-07-17] VITALS (8 sets, daily range): BP systolic 91–145; BP diastolic 49–77; PULSE 66–87; RESP 14–24; TEMP 36.8–37.3; O2SAT 97–100
[2024-07-17] MEDS: MAGNESIUM CITRATE 300 ML BTL PO ×2 (02:22→07:40)
[2024-07-17 07:23] LABS: Basophils Absolute Auto 0.1 K/mm3 (0.0-0.1); Basophils Percent Auto 0.9 % (0.2-1.2); Eosinophils Absolute Auto 0.3 K/mm3 (0-0.3); Hematocrit 32.6 % (37.0-47.0); Hemoglobin 9.7 g/dL (12.0-15.0); Immature Granulocyte Absolute 0.38 K/mm3 (0.00-0.031); Immature Granulocyte Percent A 3.7 % (0-0.5); Lymphocytes Absolute Auto 2.54 K/mm3 (0.9-3.2); Lymphocytes Percent Auto 24.9 % (18.3-44.2); Mean Corpuscular HGB Conc 29.8 g/dl (32-36); Mean Corpuscular Hemoglobin 26.1 pg (26-34); Mean Corpuscular Volume 87.6 fl (80-100); Mean Platelet Volume 8.7 fl (7.4-10.4); Monocytes Absolute Auto 0.9 K/mm3 (0.1-0.6); Neutrophils Percent Auto 58.5 % (45.5-73.1); Platelet Count Result 509 k/mm3 (150-375); Red Blood Count 3.72 M/mm3 (4.2-5.4); Red Cell Distribution Width 20.4 % (11.5-14.5); White Blood Count 10.2 K/mm3 (4.5-10.0)
[2024-07-17 07:35] LABS: Alanine Aminotransferase 12 U/L (6-35); Alkaline Phosphatase 89 U/L (38-126); Anion Gap 7 mmol/L (4-12); Aspartate Amino Transferase 24 U/L (14-36); Bilirubin,Total 0.4 mg/dL (0.2-1.3); Blood Urea Nitrogen 15 mg/dL (7-17); Calcium 8.6 mg/dL (8.4-10.2); Carbon Dioxide 23 mmol/L (22-30); Chloride 101 mmol/L (98-107); Estimated CRCL calculation 70 ml/min; Estimated Glomerular Filt Rate > 60; Glucose 101 mg/dL (65-110); Potassium 3.5 mmol/L (3.4-5.0); Sodium 131 mmol/L (137-145)
[2024-07-17 08:02] LABS: Hypochromasia 1+; Platelet Estimate Increased (Adequate)
[2024-07-17 08:03] LABS: Anisocytosis 1+; Schistocytes None Seen
[2024-07-17] MEDS: METOPROLOL SUCCINATE EXT REL 25 MG TABCR PO (08:29)
--- NOTE | 2024-07-17 10:40 | PM.IMPN ---
Progress Note: A&P Assessment and Plan (1) Anemia: Code(s): D64.9 - Anemia, unspecified Status: Acute Assessment and Plan: Reports to hospital with report of abnormal labs drawn by her PCP of low H/H. On arrival H/H 7.7/25. Not on anticoagulation. - H/H 8.9/29.7 on am labs - s/p pRBC transfusion on 07/13 - Continue iron and folate supplementation - iron panel: iron 142, TIBC 154, % sat 92 - b12 and folate WNL - occult: negative - GI consulted Plan for EGD/colonoscopy tomorrow to rule out GI cause of blood loss EGD and colonoscopy tomorrow to rule out GI source of blood loss Patient may require supplemental nutrition with bolus feedings in the near future given her weight loss, will keep PEG in place. Clear liquid diet today bowel prep to start this evening NPO after midnight further recommendations to follow endoscopy (2) Acute UTI: Code(s): N39.0 - Urinary tract infection, site not specified Status: Acute Assessment and Plan: - UA: turbid appearance, 1+ protein, trace ketones, 1+ bili, 1+ leukocytes, 11-20 RBC, 11-20 WBC, 4+ bacteria, many squamous epithelial cells. Possible contaminant. - UC obtained on 07/13: negative - no previous micro to be reviewed - discontinued rocephin (3) Rheumatoid arthritis: Code(s): M06.9 - Rheumatoid arthritis, unspecified Status: Acute Assessment and Plan: Patient has a port present in her left upper chest for prior RA medication, last accessed February 2024 to ensure patency. She is unsure what this medication was. She has not seen her cdl a driver since last year because she retired. - will need to follow up with a cdl a driver outpatient, plan to give resources at discharge (4) Hypertension: Code(s): I10 - Essential (primary) hypertension Status: Acute Assessment and Plan: History of hypertension. States her PCP recently took her off her antihypertensives and she is well controlled with diet. - Patients blood pressures remain uncontrolled, she was previously on diltiazem 240 mg daily and metoprolol 25 mg daily per [facility] report - Metoprolol 25 mg daily started - Monitor (5) History of seizure: Code(s): Z87.898 - Personal history of other specified conditions Status: Acute Assessment and Plan: Non convulsive seizure history on [facility] report. Patient was on Keppra during that hospitalization, but has not had this since discharge in early january. Patient and family deny seizure like activity since then. Discussed this with Dr. Blackwood and will consult neuro at this time as unable to clear patient without further evaluating. Will not start keppra at this time. - neuro consulted defer the anticonvulsants and obtain an EEG (6) Moderate protein malnutrition: Code(s): E44.0 - Moderate protein-calorie malnutrition Status: Acute Assessment and Plan: MST 4 with inadequate energy intake as evidenced by significant weight loss of -22% x 4 months, poor intake for greater than 1 month, and NFPE findings for moderate subcutaneous fat loss (cheeks) and moderate muscle wasting (pentecostal, clavicle). - Patient has PEG tube placed for prior dysphagia while at [facility] on January 21, has not been accessed since February 2024. Discussed with patient that though she has not been using the peg tube she may need this for further nutrition given that she has lost 40-50 lbs since August. - Nutrition following Time Spent With Patient Time with patient: Greater than 35 minutes Subjective Date/time seen: 07/17/24 10:40 Interval history: 74 year old female with PMH of acute on chronic anemia, HLD, HTN, RA, with PEG tube in place (unknown reason) and history of DVT and GI bleed presents to the hospital with report of abnormal labs drawn by her PCP of a low hemoglobin. Patient is pleasant lying in bed with childcare center administrator and at bedside. She states she is feeling a bit better today. She endorses
[2024-07-17] MEDS: ONDANSETRON HCL ODT 4 MG TABLET PO (11:00)
--- NOTE | 2024-07-17 14:10 | PC.NURSE ---
To GI Lab via [employer].
[2024-07-17] MEDS: LACTATED RINGERS 1,000 ML 150 ML IV CONT (14:21)
--- NOTE | 2024-07-17 14:33 | WPDANESEPPF ---
Anes - Initial Pre Proc Eval Procedure: Operation Date: 07/17/24 15:00 Proposed Procedures p Esophagogastroduodenoscopy & Colonoscopy - Abel Gamez MD Date/Time: 07/17/24 14:33 Surgeon: Rachel Martini PA-C Pre Op Diagnosis: UTI, anemia Patient Data Age: 74 Gender: F Height: 1.65 m Weight: 53.63 kg Last Vital Signs Temp 98.4 F 07/17/24 14:19 Pulse 69 07/17/24 14:19 Resp 18 07/17/24 14:19 BP 130/60 07/17/24 14:19 Pulse Ox 100 07/17/24 14:19 O2 Del Method Room Air 07/17/24 14:19 FiO2 21 07/16/24 08:28 Allergies Allergy/AdvReac Type Severity Reaction Status Date / Time amlodipine Allergy Severe Hives Verified 07/12/24 13:20 banana Allergy Severe throat Verified 07/12/24 13:20 Itching latex Allergy Severe Redness of Verified 07/12/24 13:20 Skin, baker lisinopril Allergy Severe Difficulty Verified 07/12/24 13:20 Breathing Penicillins Allergy Severe Rash Verified 07/12/24 13:20 pseudoephedrine Allergy Severe Difficulty Verified 07/12/24 13:20 Breathing tetracycline Allergy Severe Difficulty Verified 07/12/24 13:20 Breathing tree nut Allergy Severe Other Verified 07/12/24 13:20 dextromethorphan Allergy Intermediate Rash Verified 07/12/24 13:20 prednisone Allergy Unknown Other Verified 07/12/24 13:20 acetaminophen AdvReac Intermediate Nausea and Verified 07/12/24 13:20 Vomiting aspirin AdvReac Intermediate Nausea and Verified 07/12/24 13:20 Vomiting Home Medications Medication Instructions Recorded Confirmed Type ferrous sulfate 325 mg (65 mg 325 mg PO BIDWM #60 tabs 05/04/24 07/13/24 Rx iron) tablet,delayed release folic acid 1 mg tablet 1 mg PO DAILY #30 tabs 05/04/24 07/13/24 Rx polyethylene glycol 3350 17 17 g PO DAILY 07/09/24 07/13/24 History gram/dose oral powder (Miralax) magnesium 100 mg tablet 100 mg PO DAILY 07/13/24 07/13/24 History Laboratory Tests 07/17/24 06:58 WBC 10.2 H K/mm3 (4.5-10.0) RBC 3.72 L M/mm3 (4.2-5.4) Hgb 9.7 L g/dL (12.0-15.0) Hct 32.6 L % (37.0-47.0) MCV 87.6 fl (80-100) MCH 26.1 pg (26-34) MCHC 29.8 L g/dl (32-36) RDW 20.4 H % (11.5-14.5) Plt Count 509 H k/mm3 (150-375) MPV 8.7 fl (7.4-10.4) Immature Gran % (Auto) 3.7 H % (0-0.5) Neut % (Auto) 58.5 % (45.5-73.1) Lymph % (Auto) 24.9 % (18.3-44.2) [place] % (Auto) 9.0 H % (2.6-8.5) Eos % (Auto) 3.0 % (0-4.4) Baso % (Auto) 0.9 % (0.2-1.2) Lymph # (Auto) 2.54 K/mm3 (0.9-3.2) [place] # (Auto) 0.9 H K/mm3 (0.1-0.6) Eos # (Auto) 0.3 K/mm3 (0-0.3) Baso # (Auto) 0.1 K/mm3 (0.0-0.1) Abs Immat Gran (auto) 0.38 H K/mm3 (0.00-0.031) Absolute Neuts (auto) 6.0 K/mm3 (1.3-6.7) Absolute Nucleated RBC 0.000 K/mm3 (0.0-0.012) Nucleated RBC % 0.0 % (0.0-0.2) Platelet Estimate Increased (Adequate) Hypochromasia 1+ Anisocytosis 1+ Schistocytes None seen Sodium 131 L mmol/L (137-145) Potassium 3.5 mmol/L (3.4-5.0) Chloride 101 mmol/L (98-107) Carbon Dioxide 23 mmol/L (22-30) Anion Gap 7 mmol/L (4-12) BUN 15 mg/dL (7-17) Creatinine 0.50 L mg/dL (0.7-1.0) Estim Creat Clear Calc 70 ml/min Estimated GFR > 60 (59 - ) Glucose 101 mg/dL (65-110) Calcium 8.6 mg/dL (8.4-10.2) Total Bilirubin 0.4 mg/dL (0.2-1.3) AST 24 U/L (14-36) ALT 12 U/L (6-35) Alkaline Phosphatase 89 U/L (38-126) Total Protein 8.0 g/dL (6.3-8.2) Albumin 3.0 L g/dL (3.5-5.1) Patient hx anesthesia problems: none Family hx anesthesia problems: none Results Review: All pre-operative results and documents have been reviewed as part of the pre-operative evaluation. [facility] Past Medical History Medical History Acute on chronic anemia Blood thinned due to long-term anticoa
--- NOTE | 2024-07-17 15:06 | PCPTNOTE ---
The patient treatment was not able to be completed due to patient out of room for GI procedure. Will plan to continue treatment per plan of care.
--- NOTE | 2024-07-17 15:19 | SUR.OPER ---
EGD completed at 1515, colonoscopy started at 1520
--- NOTE | 2024-07-17 16:15 | PC.NURSE ---
Back from GI Lab via stretcher.
[2024-07-17] MEDS: SODIUM CHLORIDE 0.9% IV 1,000 ML 100 ML IV CONT (16:22)
[2024-07-17] MEDS: traMADol HCL (*CRX) 25 MG TABLET PO (21:12)
[2024-07-17] MEDS: HYDROmorphone HCL INJ (*CRX) 1 MG/ML SYR IV PUSH (22:01)
[2024-07-18] MEDS: SODIUM CHLORIDE 0.9% IV 1,000 ML 100 ML IV CONT ×2 (04:37→17:13)
[2024-07-18] MEDS: traMADol HCL (*CRX) 25 MG TABLET PO ×2 (04:40→22:42)
[2024-07-18 06:00] VITALS: BP 125/66; PULSE 72; RESP 18; TEMP 36.8; O2SAT 100
[2024-07-18 06:23] LABS: Basophils Absolute Auto 0.1 K/mm3 (0.0-0.1); Eosinophils Absolute Auto 0.3 K/mm3 (0-0.3); Eosinophils Percent Auto 3.3 % (0-4.4); Hematocrit 26.7 % (37.0-47.0); Hemoglobin 7.9 g/dL (12.0-15.0); Immature Granulocyte Absolute 0.34 K/mm3 (0.00-0.031); Immature Granulocyte Percent A 4.3 % (0-0.5); Lymphocytes Absolute Auto 1.92 K/mm3 (0.9-3.2); Lymphocytes Percent Auto 24.3 % (18.3-44.2); Mean Corpuscular HGB Conc 29.6 g/dl (32-36); Mean Corpuscular Hemoglobin 25.8 pg (26-34); Mean Corpuscular Volume 87.3 fl (80-100); Mean Platelet Volume 9.1 fl (7.4-10.4); Monocytes Percent Auto 12.5 % (2.6-8.5); Neutrophils Absolute Auto 4.3 K/mm3 (1.3-6.7); Neutrophils Percent Auto 54.6 % (45.5-73.1); Platelet Count Result 429 k/mm3 (150-375); Red Blood Count 3.06 M/mm3 (4.2-5.4); Red Cell Distribution Width 20.5 % (11.5-14.5); White Blood Count 7.9 K/mm3 (4.5-10.0)
[2024-07-18 06:37] LABS: Alanine Aminotransferase 11 U/L (6-35); Albumin Level 2.5 g/dL (3.5-5.1); Alkaline Phosphatase 75 U/L (38-126); Anion Gap 7 mmol/L (4-12); Aspartate Amino Transferase 19 U/L (14-36); Bilirubin,Total 0.2 mg/dL (0.2-1.3); Blood Urea Nitrogen 15 mg/dL (7-17); Carbon Dioxide 22 mmol/L (22-30); Chloride 105 mmol/L (98-107); Estimated CRCL calculation 70 ml/min; Estimated Glomerular Filt Rate > 60; Glucose 125 mg/dL (65-110); Potassium 3.2 mmol/L (3.4-5.0); Sodium 134 mmol/L (137-145)
[2024-07-18 06:58] LABS: Anisocytosis 1+; Hypochromasia 1+; Macrocytosis 1+ (NORMAL); Platelet Estimate Adequate (Adequate); Poikilocytosis 1+; Schistocytes None Seen
[2024-07-18 08:18] VITALS: BP 142/73; PULSE 77; RESP 16; TEMP 36.2; O2SAT 99
--- NOTE | 2024-07-18 09:05 | PM.IMPN ---
Progress Note: A&P Assessment and Plan (1) Anemia: Code(s): D64.9 - Anemia, unspecified Status: Acute Assessment and Plan: -Reports to hospital with report of abnormal labs drawn by her PCP of low H/H. On arrival H/H .06/13. Not on anticoagulation. - H/H .08/18.7 on am labs - s/p pRBC transfusion on 07/13 - Continue iron and folate supplementation - iron panel: iron 142, TIBC 154, % sat 92 - b12 and folate WNL - occult: negative - GI consulted Plan for EGD/colonoscopy tomorrow to rule out GI cause of blood loss EGD and colonoscopy tomorrow to rule out GI source of blood loss Patient may require supplemental nutrition with bolus feedings in the near future given her weight loss, will keep PEG in place. Clear liquid diet today bowel prep to start this evening NPO after midnight further recommendations to follow endoscopy 07/18- egd/colonoscopy yesterday: -abdiel EGD, unremarkable colonoscopy she is on iron supplements (2) Acute UTI: Code(s): N39.0 - Urinary tract infection, site not specified Status: Acute Assessment and Plan: - UA: turbid appearance, 1+ protein, trace ketones, 1+ bili, 1+ leukocytes, 11-20 RBC, 11-20 WBC, 4+ bacteria, many squamous epithelial cells. Possible contaminant. - UC obtained on 07/13: negative - no previous micro to be reviewed - discontinued rocephin (3) Rheumatoid arthritis: Code(s): M06.9 - Rheumatoid arthritis, unspecified Status: Acute Assessment and Plan: Patient has a port present in her left upper chest for prior RA medication, last accessed February 2024 to ensure patency. She is unsure what this medication was. 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 - will need to follow up with a caterer's aide outpatient, plan to give resources at discharge (4) Hypertension: Code(s): I10 - Essential (primary) hypertension Status: Acute Assessment and Plan: History of hypertension. States her PCP recently took her off her antihypertensives and she is well controlled with diet. - Patients blood pressures remain uncontrolled, she was previously on diltiazem 240 mg daily and metoprolol 25 mg daily per [facility] report - Metoprolol 25 mg daily started - Monitor (5) History of seizure: Code(s): Z87.898 - Personal history of other specified conditions Status: Acute Assessment and Plan: Non convulsive seizure history on [facility] report. Patient was on Keppra during that hospitalization, but has not had this since discharge in early january. Patient and family deny seizure like activity since then. Discussed this with Dr. Blackwood and will consult neuro at this time as unable to clear patient without further evaluating. Will not start keppra at this time. - neuro consulted defer the anticonvulsants and obtain an EEG (6) Moderate protein malnutrition: Code(s): E44.0 - Moderate protein-calorie malnutrition Status: Acute Assessment and Plan: MST 4 with inadequate energy intake as evidenced by significant weight loss of -22% x 4 months, poor intake for greater than 1 month, and NFPE findings for moderate subcutaneous fat loss (cheeks) and moderate muscle wasting (sabianist, clavicle). - Patient has PEG tube placed for prior dysphagia while at [facility] on January 21, has not been accessed since February 2024. Discussed with patient that though she has not been using the peg tube she may need this for further nutrition given that she has lost 40-50 lbs since August. - Nutrition following Plan # leg pain - will order doppler to ensure no DVT Time Spent With Patient Time with patient: Greater than 35 minutes Subjective Date/time seen: 07/18/24 09:05 Interval history: 74 year old female with PMH of acute on chronic anemia, HLD, HTN, RA, with PEG tube in place (unknown reason) and history of DVT and GI bleed presents to the hospital with report of abnormal labs drawn by taras
[2024-07-18] MEDS: POTASSIUM CHLORIDE 20 MEQ ER TABLET PO (10:11)
[2024-07-18] MEDS: oxyCODONE HCL (*CRX) 5 MG TAB IR PO (10:11)
[2024-07-18 10:12] VITALS: PULSE 84
[2024-07-18] MEDS: FERROUS SULFATE 325 MG TABLET DR PO ×2 (10:12→17:12)
[2024-07-18] MEDS: FOLIC ACID 1 MG TABLET PO (10:12)
[2024-07-18] MEDS: METOPROLOL SUCCINATE EXT REL 25 MG TABCR PO (10:12)
--- NOTE | 2024-07-18 11:01 | P.PNAN_ITS ---
Anes - Prog Note Post-Op Date/Time: 07/18/24 11:01 Cardiovascular status: normal Respiratory status: normal Airway patency: baseline Mental status: baseline Post-Op hydration status: normal Vital Signs: Last Vital Signs Temp 36.2 C L 07/18/24 08:18 Pulse 84 07/18/24 10:12 Resp 16 07/18/24 08:18 BP 142/73 H 07/18/24 08:18 Pulse Ox 99 07/18/24 08:18 O2 Del Method Room Air 07/17/24 20:00 FiO2 21 07/16/24 08:28 Pain Score (VAS): 0/10 I/O: Intake & Output 07/17/24 07/18/24 07/18/24 23:59 07:59 15:59 Intake Total 240 1120 250 Balance 240 1120 250 Laboratory Tests 07/18/24 05:51 07/18/24 05:51 07/18/24 05:51 WBC 7.9 RBC 3.06 L Hgb 7.9 L Hct 26.7 L MCV 87.3 MCH 25.8 L MCHC 29.6 L RDW 20.5 H Plt Count 429 H MPV 9.1 Immature Gran % (Auto) 4.3 H Neut % (Auto) 54.6 Lymph % (Auto) 24.3 [place] % (Auto) 12.5 H Eos % (Auto) 3.3 Baso % (Auto) 1.0 Lymph # (Auto) 1.92 [place] # (Auto) 1.0 H Eos # (Auto) 0.3 Baso # (Auto) 0.1 Abs Immat Gran (auto) 0.34 H Absolute Neuts (auto) 4.3 Absolute Nucleated RBC 0.000 Nucleated RBC % 0.0 Platelet Estimate Adequate Hypochromasia 1+ Poikilocytosis 1+ Anisocytosis 1+ Macrocytosis 1+ Schistocytes None seen Sodium 134 L Potassium 3.2 L Chloride 105 Carbon Dioxide 22 Anion Gap 7 BUN 15 Creatinine 0.50 L Estim Creat Clear Calc 70 Estimated GFR > 60 Glucose 125 H Calcium 8.0 L Total Bilirubin 0.2 AST 19 ALT 11 Alkaline Phosphatase 75 Total Protein 7.0 Albumin 2.5 L Post-procedural complaints: none Patient Feedback: Patient satisfied with anesthetic care.
[2024-07-18 14:00] VITALS: BP 136/75; PULSE 70; RESP 14; TEMP 36.7; O2SAT 100
[2024-07-18 21:31] VITALS: BP 147/76; PULSE 74; RESP 20; TEMP 37.2; O2SAT 100
[2024-07-19] MEDS: oxyCODONE HCL (*CRX) 5 MG TAB IR PO (05:32)
[2024-07-19 06:00] VITALS: BP 172/88; PULSE 73; RESP 18; TEMP 36.7; O2SAT 100
[2024-07-19 06:50] LABS: Anion Gap 3 mmol/L (4-12); Blood Urea Nitrogen 11 mg/dL (7-17); Carbon Dioxide 25 mmol/L (22-30); Chloride 104 mmol/L (98-107); Estimated CRCL calculation 85 ml/min; Estimated Glomerular Filt Rate > 60; Glucose 89 mg/dL (65-110); Potassium 3.6 mmol/L (3.4-5.0); Sodium 132 mmol/L (137-145)
[2024-07-19 08:47] VITALS: PULSE 72
[2024-07-19] MEDS: METOPROLOL SUCCINATE EXT REL 25 MG TABCR PO (08:47)
[2024-07-19] MEDS: FERROUS SULFATE 325 MG TABLET DR PO ×2 (08:47→20:55)
[2024-07-19] MEDS: FOLIC ACID 1 MG TABLET PO (08:47)
--- NOTE | 2024-07-19 10:21 | PM.IMPN ---
Progress Note: A&P Assessment and Plan (1) Anemia: Code(s): D64.9 - Anemia, unspecified Status: Acute Assessment and Plan: -Reports to hospital with report of abnormal labs drawn by her PCP of low H/H. On arrival H/H .06/13. Not on anticoagulation. - H/H .08/18.7 on am labs - s/p pRBC transfusion on 07/13 - Continue iron and folate supplementation - iron panel: iron 142, TIBC 154, % sat 92 - b12 and folate WNL - occult: negative - GI consulted Plan for EGD/colonoscopy tomorrow to rule out GI cause of blood loss EGD and colonoscopy tomorrow to rule out GI source of blood loss Patient may require supplemental nutrition with bolus feedings in the near future given her weight loss, will keep PEG in place. Clear liquid diet today bowel prep to start this evening NPO after midnight further recommendations to follow endoscopy 07/18- egd/colonoscopy yesterday: -abdiel EGD, unremarkable colonoscopy she is on iron supplements 07/19- labs are pending this am (2) Acute UTI: Code(s): N39.0 - Urinary tract infection, site not specified Status: Acute Assessment and Plan: - UA: turbid appearance, 1+ protein, trace ketones, 1+ bili, 1+ leukocytes, 11-20 RBC, 11-20 WBC, 4+ bacteria, many squamous epithelial cells. Possible contaminant. - UC obtained on 07/13: negative - no previous micro to be reviewed - discontinued rocephin (3) Rheumatoid arthritis: Code(s): M06.9 - Rheumatoid arthritis, unspecified Status: Acute Assessment and Plan: Patient has a port present in her left upper chest for prior RA medication, last accessed February 2024 to ensure patency. She is unsure what this medication was. She has not seen her coil winder strap since last year because she retired. - will need to follow up with a coil winder strap outpatient, plan to give resources at discharge (4) Hypertension: Code(s): I10 - Essential (primary) hypertension Status: Acute Assessment and Plan: History of hypertension. States her PCP recently took her off her antihypertensives and she is well controlled with diet. - Patients blood pressures remain uncontrolled, she was previously on diltiazem 240 mg daily and metoprolol 25 mg daily per [facility] report - Metoprolol 25 mg daily started - Monitor -stable (5) History of seizure: Code(s): Z87.898 - Personal history of other specified conditions Status: Acute Assessment and Plan: Non convulsive seizure history on [facility] report. Patient was on Keppra during that hospitalization, but has not had this since discharge in early january. Patient and family deny seizure like activity since then. Discussed this with Dr. Blackwood and will consult neuro at this time as unable to clear patient without further evaluating. Will not start keppra at this time. - neuro consulted defer the anticonvulsants and obtain an EEG (6) Moderate protein malnutrition: Code(s): E44.0 - Moderate protein-calorie malnutrition Status: Acute Assessment and Plan: MST 4 with inadequate energy intake as evidenced by significant weight loss of -22% x 4 months, poor intake for greater than 1 month, and NFPE findings for moderate subcutaneous fat loss (cheeks) and moderate muscle wasting (holiness, clavicle). - Patient has PEG tube placed for prior dysphagia while at [facility] on January 21, has not been accessed since February 2024. Discussed with patient that though she has not been using the peg tube she may need this for further nutrition given that she has lost 40-50 lbs since August. - Nutrition following Plan # leg pain - will order doppler to ensure no DVT Time Spent With Patient Time with patient: Greater than 35 minutes Subjective Date/time seen: 07/19/24 10:21 Interval history: 74 year old female with PMH of acute on chronic anemia, HLD, HTN, RA, with PEG tube in place (unknown reason) and history of DVT and GI bleed presents to the hospital w
--- NOTE | 2024-07-19 10:58 | PCNFU ---
Nutrition Follow-Up Complete: Moderate protein calorie malnutrition related to inadequate energy intake as evidenced by a significant weight loss of -22% x 4 months, pt report of poor intake for greater than 1 month, and NFPE findings for moderate subcutaneous fat loss (cheeks) and moderage muscle wasting (tenriism, clavicle). PO intake greater than 50% of meals and supplements - Progressing. Intakes mostly 50% Goal: Pt current nutrition is Heart healthy diet. Ensure Enlive TID for additional 350 kcal and 20 g protein each. Nutrition recommendation: No new nutrition recommendations. Continue current orders. Agree with orders Last recorded weight is 53.63 kg. Bowel Motility: Last BM recorded 07/18/24 +1 Labs Reviewed: Na 132, Cre 0.4 Meds Noted: Folic acid Skin: No pressure injuries Additional Notes: Intakes 25-50% meals, no intakes noted on Ensure. Continue current nutrition care plan and orders. Monitor intake, wt, labs. Follow up in 5 days.
[2024-07-19] MEDS: SODIUM CHLORIDE 0.9% IV 1,000 ML 50 ML IV CONT (13:13)
[2024-07-19 14:00] VITALS: BP 137/74; PULSE 68; RESP 18; TEMP 36.3; O2SAT 100
[2024-07-19] MEDS: polyethylene glycoL 3350 17 GM POWD.PACK PO (20:38)
[2024-07-19 21:57] VITALS: BP 150/77; PULSE 69; RESP 18; TEMP 37.2; O2SAT 100
[2024-07-20 05:17] VITALS: BP 151/83; PULSE 76; RESP 16; TEMP 36.3; O2SAT 100
[2024-07-20 06:38] LABS: Hematocrit 26.2 % (37.0-47.0); Hemoglobin 7.9 g/dL (12.0-15.0); Mean Corpuscular HGB Conc 30.2 g/dl (32-36); Mean Corpuscular Hemoglobin 25.7 pg (26-34); Mean Corpuscular Volume 85.3 fl (80-100); Platelet Count Result 395 k/mm3 (150-375); Red Blood Count 3.07 M/mm3 (4.2-5.4); Red Cell Distribution Width 19.9 % (11.5-14.5); White Blood Count 7.1 K/mm3 (4.5-10.0)
[2024-07-20 06:39] LABS: Mean Platelet Volume 8.8 fl (7.4-10.4)
[2024-07-20 06:55] LABS: Anion Gap 6 mmol/L (4-12); Blood Urea Nitrogen 7 mg/dL (7-17); Calcium 8.1 mg/dL (8.4-10.2); Carbon Dioxide 22 mmol/L (22-30); Chloride 105 mmol/L (98-107); Estimated CRCL calculation 85 ml/min; Estimated Glomerular Filt Rate > 60; Glucose 88 mg/dL (65-110); Potassium 3.4 mmol/L (3.4-5.0); Sodium 133 mmol/L (137-145)
[2024-07-20 08:59] VITALS: PULSE 76
[2024-07-20] MEDS: FERROUS SULFATE 325 MG TABLET DR PO ×2 (08:59→18:23)
[2024-07-20] MEDS: FOLIC ACID 1 MG TABLET PO (08:59)
[2024-07-20] MEDS: METOPROLOL SUCCINATE EXT REL 25 MG TABCR PO (08:59)
--- NOTE | 2024-07-20 09:20 | PM.IMPN ---
Progress Note: A&P Assessment and Plan (1) Anemia: Code(s): D64.9 - Anemia, unspecified Status: Acute Assessment and Plan: -Reports to hospital with report of abnormal labs drawn by her PCP of low H/H. On arrival H/H 7.7/25. Not on anticoagulation. - H/H 8.9/29.7 on am labs - s/p pRBC transfusion on 07/13 - Continue iron and folate supplementation - iron panel: iron 142, TIBC 154, % sat 92 - b12 and folate WNL - occult: negative - GI consulted Plan for EGD/colonoscopy tomorrow to rule out GI cause of blood loss EGD and colonoscopy tomorrow to rule out GI source of blood loss Patient may require supplemental nutrition with bolus feedings in the near future given her weight loss, will keep PEG in place. Clear liquid diet today bowel prep to start this evening NPO after midnight further recommendations to follow endoscopy 07/18- egd/colonoscopy yesterday: -abdiel EGD, unremarkable colonoscopy she is on iron supplements 07/19- labs are stable 07/20 hg/hct 7.9/26.7 -stable (2) Acute UTI: Code(s): N39.0 - Urinary tract infection, site not specified Status: Acute Assessment and Plan: - UA: turbid appearance, 1+ protein, trace ketones, 1+ bili, 1+ leukocytes, 11-20 RBC, 11-20 WBC, 4+ bacteria, many squamous epithelial cells. Possible contaminant. - UC obtained on 07/13: negative - no previous micro to be reviewed - discontinued rocephin (3) Rheumatoid arthritis: Code(s): M06.9 - Rheumatoid arthritis, unspecified Status: Acute Assessment and Plan: Patient has a port present in her left upper chest for prior RA medication, last accessed February 2024 to ensure patency. She is unsure what this medication was. She has not seen her trauma registrar since last year because she retired. - will need to follow up with a trauma registrar outpatient, plan to give resources at discharge (4) Hypertension: Code(s): I10 - Essential (primary) hypertension Status: Acute Assessment and Plan: History of hypertension. States her PCP recently took her off her antihypertensives and she is well controlled with diet. - Patients blood pressures remain uncontrolled, she was previously on diltiazem 240 mg daily and metoprolol 25 mg daily per [facility] report - Metoprolol 25 mg daily started - Monitor -stable (5) History of seizure: Code(s): Z87.898 - Personal history of other specified conditions Status: Acute Assessment and Plan: Non convulsive seizure history on [facility] report. Patient was on Keppra during that hospitalization, but has not had this since discharge in early january. Patient and family deny seizure like activity since then. Discussed this with Dr. Blackwood and will consult neuro at this time as unable to clear patient without further evaluating. Will not start keppra at this time. - neuro consulted defer the anticonvulsants and obtain an EEG (6) Moderate protein malnutrition: Code(s): E44.0 - Moderate protein-calorie malnutrition Status: Acute Assessment and Plan: MST 4 with inadequate energy intake as evidenced by significant weight loss of -22% x 4 months, poor intake for greater than 1 month, and NFPE findings for moderate subcutaneous fat loss (cheeks) and moderate muscle wasting (quaker, clavicle). - Patient has PEG tube placed for prior dysphagia while at [facility] on January 21, has not been accessed since February 2024. Discussed with patient that though she has not been using the peg tube she may need this for further nutrition given that she has lost 40-50 lbs since August. - Nutrition following Plan # leg pain - will order doppler to ensure no DVT Time Spent With Patient Time with patient: Greater than 35 minutes Subjective Date/time seen: 07/20/24 09:20 Interval history: 74 year old female with PMH of acute on chronic anemia, HLD, HTN, RA, with PEG tube in place (unknown reason) and history of DVT and GI bleed pres
[2024-07-20] MEDS: SODIUM CHLORIDE 0.9% IV 1,000 ML 50 ML IV CONT (11:28)
[2024-07-20 14:00] VITALS: BP 144/82; PULSE 64; RESP 16; TEMP 36.8; O2SAT 100
[2024-07-20] MEDS: DOCUSATE SODIUM 100 MG CAPSULE PO (18:23)
[2024-07-20] MEDS: polyethylene glycoL 3350 17 GM POWD.PACK PO (18:23)
[2024-07-20 21:33] VITALS: BP 153/92; PULSE 70; RESP 20; TEMP 37.2; O2SAT 100
[2024-07-21 05:40] VITALS: BP 153/89; PULSE 69; RESP 16; TEMP 36.8; O2SAT 100
[2024-07-21 11:19] VITALS: PULSE 72
[2024-07-21] MEDS: METOPROLOL SUCCINATE EXT REL 25 MG TABCR PO (11:19)
[2024-07-21] MEDS: FOLIC ACID 1 MG TABLET PO (11:20)
[2024-07-21] MEDS: FERROUS SULFATE 325 MG TABLET DR PO ×2 (11:20→18:30)
[2024-07-21 14:00] VITALS: BP 133/66; PULSE 68; RESP 18; TEMP 36.8; O2SAT 99
--- NOTE | 2024-07-21 14:12 | PM.IMPN ---
Progress Note: A&P Assessment and Plan (1) Anemia: Code(s): D64.9 - Anemia, unspecified Status: Acute Assessment and Plan: -Reports to hospital with report of abnormal labs drawn by her PCP of low H/H. On arrival H/H 7.7/25. Not on anticoagulation. - H/H 8.9/29.7 on am labs - s/p pRBC transfusion on 07/13 - Continue iron and folate supplementation - iron panel: iron 142, TIBC 154, % sat 92 - b12 and folate WNL - occult: negative - GI consulted Plan for EGD/colonoscopy tomorrow to rule out GI cause of blood loss EGD and colonoscopy tomorrow to rule out GI source of blood loss Patient may require supplemental nutrition with bolus feedings in the near future given her weight loss, will keep PEG in place. Clear liquid diet today bowel prep to start this evening NPO after midnight further recommendations to follow endoscopy 07/18- egd/colonoscopy yesterday: -abdiel EGD, unremarkable colonoscopy she is on iron supplements 07/19- labs are stable 07/20 hg/hct 7.9/26.7 -stable stable- monitor no blood in urine/stool (2) Acute UTI: Code(s): N39.0 - Urinary tract infection, site not specified Status: Acute Assessment and Plan: - UA: turbid appearance, 1+ protein, trace ketones, 1+ bili, 1+ leukocytes, 11-20 RBC, 11-20 WBC, 4+ bacteria, many squamous epithelial cells. Possible contaminant. - UC obtained on 07/13: negative - no previous micro to be reviewed - discontinued rocephin (3) Rheumatoid arthritis: Code(s): M06.9 - Rheumatoid arthritis, unspecified Status: Acute Assessment and Plan: Patient has a port present in her left upper chest for prior RA medication, last accessed February 2024 to ensure patency. She is unsure what this medication was. She has not seen her eap clinician since last year because she retired. - will need to follow up with a eap clinician outpatient, plan to give resources at discharge (4) Hypertension: Code(s): I10 - Essential (primary) hypertension Status: Acute Assessment and Plan: History of hypertension. States her PCP recently took her off her antihypertensives and she is well controlled with diet. - Patients blood pressures remain uncontrolled, she was previously on diltiazem 240 mg daily and metoprolol 25 mg daily per [facility] report - Metoprolol 25 mg daily started - Monitor -stable (5) History of seizure: Code(s): Z87.898 - Personal history of other specified conditions Status: Acute Assessment and Plan: Non convulsive seizure history on [facility] report. Patient was on Keppra during that hospitalization, but has not had this since discharge in early january. Patient and family deny seizure like activity since then. Discussed this with Dr. Blackwood and will consult neuro at this time as unable to clear patient without further evaluating. Will not start keppra at this time. - neuro consulted defer the anticonvulsants and obtain an EEG (6) Moderate protein malnutrition: Code(s): E44.0 - Moderate protein-calorie malnutrition Status: Acute Assessment and Plan: MST 4 with inadequate energy intake as evidenced by significant weight loss of -22% x 4 months, poor intake for greater than 1 month, and NFPE findings for moderate subcutaneous fat loss (cheeks) and moderate muscle wasting (bahai, clavicle). - Patient has PEG tube placed for prior dysphagia while at [facility] on January 21, has not been accessed since February 2024. Discussed with patient that though she has not been using the peg tube she may need this for further nutrition given that she has lost 40-50 lbs since August. - Nutrition following Plan # leg pain - will order doppler to ensure no DVT Time Spent With Patient Time with patient: Greater than 35 minutes Subjective Date/time seen: 07/21/24 14:12 Interval history: 74 year old female with PMH of acute on chronic anemia, HLD, HTN, RA, with PEG tube in place (unknown re
[2024-07-21] MEDS: DOCUSATE SODIUM 100 MG CAPSULE PO (18:30)
[2024-07-21] MEDS: polyethylene glycoL 3350 17 GM POWD.PACK PO (18:30)
--- NOTE | 2024-07-21 18:53 | PC.NURSE ---
I received a call from a Milagros requesting an update on patient; however, there is no Milagros on the authorized contacts. I did not return the call nor give any updates as it would be a HIPPA violation to do so.
[2024-07-21 22:00] VITALS: BP 151/87; PULSE 80; RESP 18; TEMP 37.2; O2SAT 100
[2024-07-22] MEDS: ACETAMINOPHEN 325 MG TABLET 650 MG PO (04:48)
[2024-07-22 05:26] VITALS: BP 150/87; PULSE 73; RESP 18; TEMP 37.2; O2SAT 100
[2024-07-22] MEDS: FOLIC ACID 1 MG TABLET PO (09:23)
[2024-07-22] MEDS: FERROUS SULFATE 325 MG TABLET DR PO (09:24)
[2024-07-22] MEDS: METOPROLOL SUCCINATE EXT REL 25 MG TABCR PO (09:24)
--- NOTE | 2024-07-22 10:14 | PM.DS ---
DS: Admitting Diagnosis Discharge Date 07/22 Admitting Diagnosis abd labs at PCP office DS: Summary Hospital Course Hospital Course: 74 year old female with PMH of acute on chronic anemia, HLD, HTN, RA, with PEG tube in place (unknown reason) and history of DVT and GI bleed presents to the hospital with report of abnormal labs drawn by her PCP of a low hemoglobin. Patient is pleasant lying in bed with healthcare network consultant and at bedside. She states she is feeling a bit better today. She endorses slight nausea with meals and only eats small amounts. More information was obtained in regards to her PEG tube and it appears that it was placed for prior dysphagia while at [facility]. Discussed with patient that though she has not been using the peg tube she may need this for further nutrition given that she has lost 40-50 lbs since august. Patient becomes tearful at that time and does not answer if she would want to use the tube or not. She denies chest pain, shortness of breath, nausea/vomiting and abdominal pain. Patient was evaluated by neuro and plan to defer the anticonvulsants and obtain an EEG at this time, as patient has been without them for several months and not reporting any seizure like activity. Called Sera at GI back to update her on patients neuro exam. She states to proceed with the GI consult for an EGD and possible colonoscopy. GI consulted. Plan for EGD/Colonoscopy tomorrow to rule of GI source of blood loss. 07/17- assuming care. EGD today. Pt is alert, oriented, denies pain but very weak. 07/18- pt is seen and examined today. she is c/o leg pain and swelling- states that has a h/o DVT but lt leg. weak but no n/v/d. no active bleeding 07/19- stable over night- no acute issues. feels like needs to have BM- requesting stool softeners. working with pt/ot. Anticipate discharge in the next few days given hg stable and progressing with pt/ot 07/20 seen and examined today. Had BM last night. Anticipate discharge in the next day or two . 07/21- discussed discharge- family is able to get her tomorrow. We discussed that if she doesnot feel strong to go home- we can work on rehab. declined wants to go home 07/22- stable overnight- no acute events. NO blood in urine/stool, still weak but was out of bed to the chair yesterday. Plan home today with family with a close f/u with PCP. Status at Discharge Functional status at discharge: uses cane/walker Overall status at discharge: patient is back to baseline Time Spent with Patient Time attestation: Total time spent providing and/or coordinating discharge services: Time spent: Greater than 30 minutes Exam Const: General: comfortable Resp: Effort & Inspection: normal respiratory effort Auscultation: clear to auscultation bilaterally Cardio: Rate: regular rate Rhythm: regular rhythm GI: GI Palp: Yes Soft to palpation Auscultation: normal bowel sounds Neuro: Sensory Exam: normal sensation Extrem: General: normal to inspection Psych: Affect: normal affect DS: Data Data Completed and Pending Completed studies during hospitalization: abd/pelvis CT, venous Doppler, knee xray, head CT Discharge Plan Discharge Consulting providers: Nisreen Blackwood; Abel Gamez Discharging Clinician: Kim Hudson Patient Disposition: Home Health Service Activity: may shower Diet: as tolerated and heart healthy Discharge Instructions: Your EGD/colonoscpy didnot reveal anything serious. Your hemoglobin could be due to low iron- that is why we started you on supplements. Taking iron supplements sometimes can make you have constipations. PLEASE TAKE MIRALAX DAILY UNTIL you have regular bowl movements. YOu can use suppository or magnesium citrste (both can be purchased over the counter). Please f/u with your PCP to have your labs rechecked. Find a new executive advisor for your arthritis for a follow up. Your blood pressure was elevated, so we re started some of your BP meds-metoprol
== END 2024-07-22 11:10 | disposition home health service (06) | DRG 812 ==
LOC: ANHED 07-13 05:02 → ANH3MEDSUR 07-13 05:39
PROVIDERS: Internal Medicine Gastroenterology; Physician Assistant; Student in an Organized Health Care Education/Training Program; Admitting Provider Internal Medicine; Emergency Provider Emergency Medicine; Visit Provider Nurse Practitioner
PROC: 0DJ08ZZ Inspection of Upper Intestinal Tract, Via Natural or Artificial Opening Endoscopic (ICD-10-PCS; CPT 43235; principal; 2024-07-17 15:00)
DX: D50.9 Iron deficiency anemia, unspecified (principal); E44.0 Moderate protein-calorie malnutrition; Z68.1 Body mass index [BMI] 19.9 or less, adult; R19.5 Other fecal abnormalities; K57.30 Diverticulosis of large intestine without perforation or abscess without bleeding; K64.8 Other hemorrhoids; I10 Essential (primary) hypertension; E78.5 Hyperlipidemia, unspecified; M06.9 Rheumatoid arthritis, unspecified; Z87.898 Personal history of other specified conditions; Z86.718 Personal history of other venous thrombosis and embolism; Z90.710 Acquired absence of both cervix and uterus; Z93.1 Gastrostomy status
CPT/HCPCS: 36415; 36430; 70450; 73560; 74018; 74177; 80048; 80053; 81001; 82274; 82607; 82746; 82948; 83540; 83550; 83690; 84443; 85025; 85027; 85610; 85730; 86850; 86860; 86870; 86880; 86900; 86901; 86902; 86905; 86906; 86922; 86971; 87086; 93971; 96361; 96366; 97110; 97161; 97165; 97530; 97535; 99285; A9270; G0378; J0696; J1170; J2704; J7030; J7120; P9016; Q9967

== ENCOUNTER 2024-10-10 15:08 | Emergency (ER) | payer MEDICARE, BC, OTHER, SELFPAY ==
--- NOTE | 2024-10-10 15:11 | PC.NURSE ---
PT LEFT D/T WAIT TIME
== END 2024-10-10 15:24 | disposition left against medical advice (07) ==
LOC: ANHED 15:19
DX: Z53.21 Procedure and treatment not carried out due to patient leaving prior to being seen by health care provider (principal)
CPT/HCPCS: 99199

== ENCOUNTER 2024-11-09 15:27 | Emergency (ER) | payer MEDICARE, BC, OTHER, SELFPAY ==
--- NOTE | ~2024-11-09 | XR_ITS ---
XR chest 1V portable DATE: 11/09/2024 15:49 INDICATION: Cough TECHNIQUE: Portable upright AP chest on 11/09/2024 at 1548 hours COMPARISON: 04/30/2024 portable upright AP chest FINDINGS: Left internal jugular Port-A-Cath catheter tip overlies the upper right atrium. Cardiomegaly. Aortic calcification, ectasia and unfolding. No hilar or mediastinal enlargement is detected. No pulmonary infiltrate or consolidation, pleural effusion or pulmonary vascular congestion or pneumo thorax. Osteopenia. Status post anterior cervical spine surgical fusion. Diffuse idiopathic skeletal hyperostosis of the thoracic spine. Osteoarthritic change at both glenohumeral joints. IMPRESSION: Cardiomegaly Aortic calcification, ectasia and unfolding No active pulmonary disease, left internal jugular Port-A-Cath catheter tip overlying upper right atr ium Reviewed, dictated and finalized at location A. RA MACHINIST IMPRESSION: Cardiomegaly Aortic calcification, ectasia and unfolding No active pulmonary disease, left internal jugular Port-A-Cath catheter tip ove rlying upper right atrium
[2024-11-09 15:28] VITALS: BP 130/99; PULSE 86; RESP 14; TEMP 36.9; O2SAT 99
[2024-11-09 15:33] VITALS: BP 130/99; PULSE 86; RESP 14; TEMP 36.9; O2SAT 99
--- NOTE | 2024-11-09 15:42 | ED.GENADULT ---
HPI - General Adult General Chief complaint: Unspecified Stated complaint: feeding tube fell out Time Seen by Provider: 11/09/24 15:34 History of Present Illness HPI narrative: 74-year-old male with a past medical history including hypertension, hyperlipidemia, previous sleep placed PEG tube in her left side abdomen but has not been utilized since February of this year. Patient has not followed up with anybody about it and is not sure why it was placed in the 1st place. She takes p.o. intake easily and has had no abdominal pain discomfort. The PEG tube fell out accidentally today and she is requesting not to have it replaced. Patient has a secondary complaint of a nonproductive cough for last several days. Took COVID fluid RSV swabs at home with her and they were negative. No chest pain difficulty in breathing. Was otherwise in her normal state of health. She is accompanied by her daughter who provides collateral formation but she is also not sure why the PEG tube was in place. They have not utilized it in the last 9 months and if not followed up with any specialist such as surgery or GI. No bleeding, no abdominal pain, no leakage of fluids or any material from the GI tract. Was otherwise in her normal state of health. Related Data Home Medications ?Medication ?Instructions ?Recorded ?Confirmed ?Last Taken ?Type polyethylene glycol 3350 17 17 g PO DAILY 07/09/24 07/13/24 Unknown History gram/dose oral powder (Miralax) magnesium 100 mg tablet 100 mg PO DAILY 07/13/24 07/13/24 Unknown History Allergies Allergy/AdvReac Type Severity Reaction Status Date / Time amlodipine Allergy Severe Hives Verified 07/12/24 13:20 banana Allergy Severe throat Verified 07/12/24 13:20 Itching latex Allergy Severe Redness of Verified 07/12/24 13:20 Skin, baker lisinopril Allergy Severe Difficulty Verified 07/12/24 13:20 Breathing Penicillins Allergy Severe Rash Verified 07/12/24 13:20 pseudoephedrine Allergy Severe Difficulty Verified 07/12/24 13:20 Breathing tetracycline Allergy Severe Difficulty Verified 07/12/24 13:20 Breathing tree nut Allergy Severe Other Verified 07/12/24 13:20 dextromethorphan Allergy Intermediate Rash Verified 07/12/24 13:20 prednisone Allergy Unknown Other Verified 07/12/24 13:20 acetaminophen AdvReac Intermediate Nausea and Verified 07/12/24 13:20 Vomiting aspirin AdvReac Intermediate Nausea and Verified 07/12/24 13:20 Vomiting Review of Systems Review of Systems: As reviewed above in [facility] Past Medical History Medical History Blood thinned due to long-term anticoagulant use Occult blood in stools Acute on chronic anemia Hyperlipidemia Hypertension DVT (deep venous thrombosis) Rheumatoid arthritis Surgical History Surgical History H/O right knee surgery H/O: hysterectomy Family History Family History Father , black lung disease No problems noted. Mother , from OJI gangrene. No problems noted. Sibling Acute myocardial infarction Sibling No problems noted. 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 Mucous membranes moist. NECK: Supple. CHEST: Coarse breath sounds over the right chest but no wheezing, rhonchi, rales. No respiratory distress or tachypnea. Coughs infrequently during examination without production HEART: [Regular rate and rhythm]. No murmur heard. [Normal peripheral pulses.] ABDOMEN: [Soft, nondistended], [nontender], [No rigidity or guarding] previous PEG tube site is clean, dry, no bleeding, some small granulation tissue but no irritation or tenderness. No overlying skin changes or infection. EXTREMITIES: Normal range of motion. [No edema.] SKIN: Warm, dry, no rash. NEURO: [No focal deficits]. Alert and oriented [x3.] PSYCH: [Normal mood and affect.] Course Vital Signs Vital signs: Vital Signs Temperature 36.9 C 11/09/24 15:28 Pulse Rate 86 11/09/24 15:28 Respiratory Rate 14 11/09/24 15:28 Blood Pressure 130/99 H 11/09/24 15:28 Pulse Oximetry 99 11/09/24 15:28 Oxygen Delivery Room Air 11/09/24 15:28 Temperature 36.9 C 11/09/24 15:33 Pulse Rate 86 11/09/24 15:33 Respiratory Rate 18 11/09/24 15:48 Blood Pressure 130/99 H 11/09/24 15:33 Pulse Oximetry 99 11/09/24 15:33 Oxygen Delivery Room Air 11/09/24 15:33 Medical Decision Making MDM Narrative Medical decision making narrative: 74-year-old female presents to the emergency department for a dislodged PEG tube as well as a cough that is nonproductive. She is not sure why she has the PEG tube and has not utilized in 9 months. Has not followed up with GI or General surgery or had any explanation for it. She is tolerating p.o. intake and has had no issues with dysphagia. Peg tube accidentally got dislodged today but the balloon was deflated. No pain, irritation or tenderness in that area of her abdomen. No overlying skin changes or leakage of fluid or bleeding. She does have some coarse breath sounds so we will obtain a chest x-ray but she tested negative for COVID fluid RSV at home today. No need to replace the PEG tube given no indications for use and patient's wishes to have it remain out. I instructed the patient on expectant management for the stoma as well as the site that would likely close off and stenosis in the next several days without issue as well as any potential issues such as leakage of material or bleeding from the sites. They were instructed to return to the emergency department there is any complications or any other concerns. Chest x-ray obtained regarding patient's nonproductive cough. No acute pneumonia. She has an upper respiratory infection. Stable for discharge home with regular PCP follow-up and instructions on wound care provided for her stoma site. Medical Records Medical records reviewed: Yes I reviewed the external patient's medical records. Vital Signs Vital Signs: Vital Signs Temperature 36.9 C 11/09/24 15:28 Pulse Rate 86 11/09/24 15:28 Respiratory Rate 14 11/09/24 15:28 Blood Pressure 130/99 H 11/09/24 15:28 Pulse Oximetry 99 11/09/24 15:28 Oxygen Delivery Room Air 11/09/24 15:28 Temperature 36.9 C 11/09/24 15:33 Pulse Rate 86 11/09/24 15:33 Respiratory Rate 18 11/09/24 15:48 Blood Pressure 130/99 H 11/09/24 15:33 Pulse Oximetry 99 11/09/24 15:33 Oxygen Delivery Room Air 11/09/24 15:33 Imaging Data Attestation: I personally reviewed and interpreted this imaging study as follows: My impression: No consolidation, pneumothorax or pneumonia. Radiologist's impression: Impressions Chest X-Ray 11/09/24 15:49 IMPRESSION: Cardiomegaly Aortic calcification, ectasia and unfolding No active pulmonary disease, left internal jugular Port-A-Cath catheter tip overlying upper right atrium Discharge Plan Discharge Clinical Impression: Dislodged gastrostomy tube, Cough, URI (upper respiratory infection) Patient Disposition: Home, Self-Care Condition: Stable Instructions: Antibiotic Form Additional Instructions: Since you have not been using your gastrostomy tube you do not need to have it replaced. Follow-up with your regular primary care provider. Your chest x-ray does not have a pneumonia and your symptoms are a consistent with upper respiratory infection. Take apsr-[id number]-flccgky cough and cold suppressing medications as well as Tylenol and ibuprofen. Return with any new or worsening concerns at any time. We have placed a bandage on your peg tube site and the area will be able to close off on in the next several days, return with any concerns or any signs of infection or active bleeding or any other issues. Patient Language: Bulgarian Prescriptions: No Action magnesium 100 mg Tablet 100 mg PO DAILY bisacodyl 10 mg Suppository 10 mg RECTAL PRN PRN (Reason: Constipation) Qty: 10 0RF docusate sodium 100 mg Capsule 100 mg PO Q12H PRN (Reason: Constipation) Qty: 30 0RF metoprolol succinate [Toprol XL] 25 mg Tablet Extended Release 24 Hr 25 mg PO QAM Qty: 60 0RF folic acid 1 mg Tablet 1 mg PO DAILY Qty: 30 0RF ferrous sulfate 325 mg (65 mg iron) Tablet,Delayed Release (Dr/Ec) 325 mg PO BIDWM Qty: 60 0RF polyethylene glycol 3350 [Miralax] 17 gram/dose Powder 17 g PO DAILY Follow-up/Referrals: PHYSICIAN NOT ON STAFF,NONSTAFF [Non-Staff] - Time of Disposition: 16:04
[2024-11-09 15:48] VITALS: RESP 18
[2024-11-09 16:14] VITALS: BP 132/79; PULSE 88; RESP 15; O2SAT 97
--- OUTSIDE RECORDS SUMMARY | 2024-11-16 22:59 | XMS_ITS ---
Author Name [facility] Organization [facility] Address [address] [place] [id number] Selected Encounter This section includes the information on record at [place] for the Encounter. Date/Time Encounter Type Encounter Description Reason Pro vider Source Jan 03, 2024 03:08 PM Outpatient Encounter ADMIN PAT ACTIVTIES ([facility]ASNONCT) [facility] Encounter Template Text not used by [facility] Encounter Notes: All associated encounter notes This section contains the clinical notes associated to the Encounter. Date/Time Encounter Note(s) Provider Source Jan 03, 2024 03:08 PM CAREGIVER CERTIFIC ATE: LOCAL TITLE: CSP ADMINISTRATIVE NOTE STANDARD TITLE: CAREGIVER CERTIFICATE DATE OF NOTE: JAN 03, 2024@15:08 ENTRY DATE: JAN 03, 2024@15:08:29 AUTHOR: CALLIE KING COSIGNER: URGENCY: STATUS: COMPLETED Annual Assessment Determination for the Program of Comprehensive Assistance for Family Caregivers (PCAFC). [facility] staff contacted [place] on this date to review the results of the recent annual assessment and the implications of recent changes to the annual reassessment process for PCAFC. As of February 08, 2022, [place] is reviewing and examining the current [facility] eligibility criteria. As a result, [place] is now suspending annual reassessments during its review of current eligibility criteria for those enrolled in the Program. The change applies to this and Family Caregiver as they are currently enrolled. [place] will continue to initiate reassessments for Veterans and Family caregivers who request to be considered for an increase in stipend level or if there is evidence of an increased need for personal care services. However, no discharges or reduction in support or stipend will occur based on a reassessment. Based on the reassessment, [facility] determined that the and Family Caregiver continue to meet the current eligibility criteria for the Program at a Level 1. Therefore, the Primary Family Caregiver's stipend amount will remain the same. The Family Caregiver and remain enrolled in PCA and will continue to receive support and services under PCAFC, unless revoked or discharged for a reason unrelated to reassessment. [facility] will continue to support [place] and Family Caregiver through Wellness Contacts every 120 days. [place] and Family Caregiver will receive a written notification letter with information on this determination, as well as information on review and appeal rights. Provided [facility] contact information and encouraged [place] and Family Caregiver to reach out to the [facility] team with any questions. Date of verbal notification of determination: 01/03/2024 Date determination letter was mailed: 01/03/2024 Information on the following was reviewed and/or provided: _X_Appeals _X_Other: Roles, Responsibilities, and Requirements and Revocation and Discharge factsheets. BRADEN for completion. [facility] Resource Guide and [facility] Contact info sheet. [id number] /shandra/ ANNALEE Bright, INTERMISSION COORDINATOR Clinical Child Custody Evaluator Signed: 01/03/2024 15:08 Receipt Acknowledged By: 01/04/2024 09:20 /shandra/ JOSE MCINTOSH [employer] SUPERVISOR CALLIE KING [facility]
--- OUTSIDE RECORDS SUMMARY | 2024-11-16 22:59 | XMS_ITS | Continuity of Care Document ---
Author Organization [facility] Address [address] [place] [phone] Care Team Providers Care Search Engine Marketing Strategist Name Role Phone Bryant Olivares Primary Care Physician Encounter [facility] Financial Number [id number] Date(s): 03/10/22 - 03/10/[address] [phone] Discharge Disposition: Home or Self Care Attending Physician: Rosa Dobson M.D. Admitting Physician: Rosa Dobson M.D. Referring Physician: Rosa Dobson M.D. Allergies, Adverse Reactions, Alerts Substance Reaction Severity Status erythromycin Angioedema Active Nickel Rash Active penicillin Rash Active lisinopril Anaphylaxis Active Latex Burning of skin Active Medications CYCLOSPORINE 0.05% EYE EMULS See Instructions, 1 each, 1 gtts to bilateral eye daily am, Supply Start Date: 02/16/22 Status: Ordered Eliquis 2.5 mg oral tablet 2.5 mg, 1 tablet(s), Oral, bid, 60 tablet(s), Tablet(s), 0 Start Date: 10/20/21 Status: Ordered pantoprazole 20 mg oral delayed release tablet 20 mg, 1 tablet(s), Oral, daily before breakfast, 30 tablet(s), Tab EC, 0 Start Date: 10/20/21 Status: Ordered Procedures Procedure Date Related Diagnosis Body Site Status cervical fusion Completed Hysterectomy Completed left TKA Completed lumbar fusion Completed potacath insertion Comple abdi Revision 1 Completed 1Left knee revision Results Radiology Reports * Exam Date Time Procedure Performing Provider Status 03/10/22 2:45 PM MRI SHOULDER WO CONTRAST RIGHT Hasmukh Spencer RT; Auth (Verified) Notes: (MRI SHOULDER WO CONTRAST RIGHT) Reason For Exam: Fall on same level from slipping, tripping and stumbling without subsequent striking against object, initial enco MRI SHOULDER WO CONTRAST RIGHT EXAM: MRI SHOULDER WO CONTRAST RIGHT HISTORY: Fall on same level from slipping, tripping and stumbling without subsequent striking against object, initial enco TECHNIQUE: Multiplanar, multisequence MRI of the right shoulder was performed without contrast on a 1.5 magnet. Radiographs from December 2021 are available. FINDINGS: There is a type I acromion without a subacromial spur. There is moderate acromioclavicular osteoarthritis. There is trace subacromial/subdeltoid bursitis. Moderate tendinopathy of the supraspinatus, infraspinatus and subscapularis tendons is noted. No definite rotator cuff tendon tear is identified. The muscles of the rotator cuff demonstrate normal bulk and signal without edema or fatty atrophy. Exam is not arthrographic. There is moderate tendinopathy of the intra-articular long head biceps tendon which is medially subluxed and flattened consistent with partial-thickness tearing. There is extensive full-thickness and partial-thickness chondrosis of the humeral head and glenoid with subchondral edema of the glenoid and large osteophyte formation. Few cystic changes are noted deep to the footplate, otherwise the marrow signal is normal. IMPRESSION: 1. Severe right glenohumeral osteoarthritis. 2. Moderate tendinopathy of the supraspinatus, infraspinatus and subscapularis tendons without a definite rotator cuff tendon tear. 3. Moderate tendinopathy of the intra-articular long head biceps tendon which has a partial-thickness longitudinal tearing and is medially subluxed. Dictating Physician: Kemi Hamilton M.D. Releasing Physician: Kemi Hamilton M.D. Signature Electronically Authorized Authorized Date/Time: 10-MAR-2022 09:27 pm * Exam Date Time Procedure Performing Provider Status 03/10/22 2:45 PM MRI SHOULDER WO CONTRAST LEFT Adeline Spencer RT; Auth (Verified) Notes: (MRI SHOULDER WO CONTRAST LEFT) Reason For Exam: Fall on same level from slipping, tripping and stumbling without subsequent striking against object, initial enco MRI SHOULDER WO CONTRAST LEFT EXAM: MRI SHOULDER WO CONTRAST LEFT HISTORY: Fall on same level from slipping, tripping and stumbling without subsequent striking against object TECHNIQUE: Multiplanar, multisequence MRI of the left shoulder was performed without contrast on a 1.5 Luiza magnet. There is no comparison. FINDINGS: There is a type I acromion. There is mild acromioclavicular osteoarthritis. There is no subacromial/subdeltoid bursitis. Moderate tendinopathy of the supraspinatus, infraspinatus and subscapularis tendons is noted. No rotator cuff tendon tear is identified. The muscles of the rotator cuff demonstrate symmetric bulk and signal without edema or focal fatty infiltration. Exam is not arthrographic. There is no glenohumeral joint effusion. There is moderate tendinopathy of the intra-articular long head biceps tendon. There is full-thickness chondrosis of the humeral head and glenoid with large osteophyte formation and subchondral cysts. Small joint bodies are noted along the bicipital groove. IMPRESSION: 1. Severe left glenohumeral osteoarthritis. 2. Moderate tendinopathy of the supraspinatus, infraspinatus and subscapularis tendons without a rotator cuff tendon tear. 3. Moderate tendinopathy of the intra-articular long head biceps tendon. Dictating Physician: Kemi Hamilton M.D. Releasing Physician: Kemi Hamilton M.D. Signature Electronically Authorized Authorized Date/Time: 10-MAR-2022 09:29 pm Social History Social History Type Response Alcohol Never alcohol user Substance Abuse Never drug user Smoking Status Never smoker;Never; Tobacco Cessation Counseling Requested N/A entered on: 10/27/21 Sex Implantable Device List Procedure Provider Procedure Date Device Type Site Knee Total Arthroplasty Unknown 02/16/22 Unknown U nknown Device Identifier Serial Number Lot or Batch Number Manufacturing Date Expiration Date Distinct Identification Code MRI Safety Implantable Status Assigning Authority Unknown Unknown [id number] Unknown 05/18/31 Unknown Unknown Active Unknown Unknown Unknown [id number] Unknown 11/29/31 Unknown Unknown Active Unknown Procedure Provider Procedure Date Device Type Site Knee Total Arthroplasty Unknown 02/16/22 Non Biologic al Unknown Device Identifier Serial Number Lot or Batch Number Manufacturing Date Expiration Date Distinct Identification Code MRI Safety Implantable Status Assigning Authority Unknown Unknown [id number] Unknown 01/18/27 Unknown Unknown Active Unknown Procedure Provider Procedure Date Device Type Site Knee Total Arthroplasty Unknown 02/16/22 Unknown U nknown Device Identifier Serial Number Lot or Batch Number Manufacturing Date Expiration Date Distinct Identification Code MRI Safety Implantable Status Assigning Authority Unknown Unknown [id number] Unknown 04/19/23 Unknown Unknown Active Unknown Procedure Provider Procedure Date Device Type Site Knee Total Arthroplasty Unknown 02/16/22 Unknown U nknown Device Identifier Serial Number Lot or Batch Number Manufacturing Date Expiration Date Distinct Identification Code MRI Safety Implantable Status Assigning Authority Unknown Unknown [id number] Unknown 12/27/30 Unknown Unknown Active Unknown Unknown Unknown [id number] Unknown 12/01/31 Unknown Unknown Active Unknown Procedure Provider Procedure Date Device Type Site Knee Total Arthroplasty Unknown 02/16/22 Non Biologic al Unknown Device Identifier Serial Number Lot or Batch Number Manufacturing Date Expiration Date Distinct Identification Code MRI Safety Implantable Status Assigning Authority Unknown Unknown [id number] Unknown 07/20/24 Unknown Unknown Active Unknown Procedure Provider Procedure Date Device Type Site Knee Total Arthroplasty Revision Unknown 10/27/21 Unk nown Unknown Device Identifier Serial Number Lot or Batch Number Manufacturing Date Expiration Date Distinct Identification Code MRI Safety Implantable Status Assigning Authority Unknown Unknown Unknown Unknown 02/17/25 Unknown Unknown Active Unk nown Unknown Unknown Unknown Unknown 02/17/25 Unknown Unknown Active Unk nown Procedure Provider Procedure Date Device Type Site Knee Total Arthroplasty Revision Unknown 10/27/21 Unk nown Unknown Device Identifier Serial Number Lot or Batch Number Manufacturing Date Expiration Date Distinct Identification Code MRI Safety Implantable Status Assigning Authority Unknown Unknown Unknown Unknown 02/17/25 Unknown Unknown Active Unk nown Procedure Provider Procedure Date Device Type Site Knee Total Arthroplasty Revision Unknown 10/27/21 Unk nown Unknown Device Identifier Serial Number Lot or Batch Number Manufacturing Date Expiration Date Distinct Identification Code MRI Safety Implantable Status Assigning Authority Unknown Unknown Unknown Unknown 10/19/24 Unknown Unknown Active Un known Procedure Provider Procedure Date Device Type Site Knee Total Arthroplasty Revision Unknown 10/27/21 Non Biological Unknown Device Identifier Serial Number Lot or Batch Number Manufacturing Date Expiration Date Distinct Identification Code MRI Safety Implantable Status Assigning Authority Unknown Unknown Unknown Unknown 12/22/20 Unknown Unknown Active Unkn own Note * Kemi Hamilton M.D.: VERIFY, VERIFY, PERFORM Event Display: Interpretation: Authored Date: EXAM: MRI SHOULDER WO CONTRAST RIGHT HISTORY: Fall on same level from slipping, tripping and stumbling without subsequent striking against object, initial enco TECHNIQUE: Multiplanar, multisequence MRI of the right shoulder was performed without contrast on a 1.5 magnet. Radiographs from December 2021 are available. FINDINGS: There is a type I acromion without a subacromial spur. There is moderate acromioclavicular osteoarthritis. There is trace subacromial/subdeltoid bursitis. Moderate tendinopathy of the supraspinatus, infraspinatus and subscapularis tendons is noted. No definite rotator cuff tendon tear is identified. The muscles of the rotator cuff demonstrate normal bulk and signal without edema or fatty atrophy. Exam is not arthrographic. There is moderate tendinopathy of the intra-articular long head biceps tendon which is medially subluxed and flattened consistent with partial-thickness tearing. There is extensive full-thickness and partial-thickness chondrosis of the humeral head and glenoid with subchondral edema of the glenoid and large osteophyte formation. Few cystic changes are noted deep to the footplate, otherwise the marrow signal is normal. IMPRESSION: 1. Severe right glenohumeral osteoarthritis. 2. Moderate tendinopathy of the supraspinatus, infraspinatus and subscapularis tendons without a definite rotator cuff tendon tear. 3. Moderate tendinopathy of the intra-articular long head biceps tendon which has a partial-thickness longitudinal tearing and is medially subluxed. Dictating Physician: Kemi Hamilton M.D. Releasing Physician: Kemi Hamilton M.D. Signature Electronically Authorized Authorized Date/Time: 10-MAR-2022 09:27 pm * Kemi Hamilton M.D.: VERIFY, VERIFY, PERFORM Event Display: Interpretation: Authored Date: [id number] EXAM: MRI SHOULDER WO CONTRAST LEFT HISTORY: Fall on same level from slipping, tripping and stumbling without subsequent striking against object TECHNIQUE: Multiplanar, multisequence MRI of the left shoulder was performed without contrast on a 1.5 Luiza magnet. There is no comparison. FINDINGS: There is a type I acromion. There is mild acromioclavicular osteoarthritis. There is no subacromial/subdeltoid bursitis. Moderate tendinopathy of the supraspinatus, infraspinatus and subscapularis tendons is noted. No rotator cuff tendon tear is identified. The muscles of the rotator cuff demonstrate symmetric bulk and signal without edema or focal fatty infiltration. Exam is not arthrographic. There is no glenohumeral joint effusion. There is moderate tendinopathy of the intra-articular long head biceps tendon. There is full-thickness chondrosis of the humeral head and glenoid with large osteophyte formation and subchondral cysts. Small joint bodies are noted along the bicipital groove. IMPRESSION: 1. Severe left glenohumeral osteoarthritis. 2. Moderate tendinopathy of the supraspinatus, infraspinatus and subscapularis tendons without a rotator cuff tendon tear. 3. Moderate tendinopathy of the intra-articular long head biceps tendon. Dictating Physician: Kemi Hamilton M.D. Releasing Physician: Kemi Hamilton M.D. Signature Electronically Authorized Authorized Date/Time: 10-MAR-2022 09:29 pm Care Team Personnel Name: Bryant Olivares MD Address: [address] [place] [address]
--- OUTSIDE RECORDS SUMMARY | 2024-11-16 22:59 | XMS_ITS | Continuity of Care Document ---
Author Name [facility] Organization [facility] Care Team Providers Care Client Services Associate Name Role Phone [facility] Unavailable Unavailable Problems Combined list of problems from Department of [facility] and [facility] facilities. It does not include entries that were removed or entered in error. Problem Status Onset Date Problem Type Date of Resolution Comments Source Diagnosis: ICD-10-CM Z63.6 Dependent relative needing care at home Active Diagnosis [facility] Diagnosis: ICD-10-CM Z74.1 Need for assistance with personal care Active Diagnosis . [facility] Medications Combined list of outpatient medications from [facility] of Defense and [facility] facilities.Medications provided include 1) outpatient medications from the last 15 months, and 2) patient-reported medications. Medication Details Route Status Patient Instructions Prescription Expires Prescription Number Last Dispense Date Ordering Provider Order Date Order Qty Source CLINDAMYCIN HCL (CLINDAMYCI N HCL), 300MG, CAPSULE, ORAL, AUROBINDO PHARM, 100 ea. BOTTLE Active [id number] 4 2023 28 Pharmac y Data Transac tion Service Facilit y dilTIAZem 60 mg/12 hours oral capsule, extended release TAKE ONE CAPSULE TWICE DAILY *ALLOW 3 TO 5 DUTY DAYS FOR ORDERING *, # 180 EA, 1 total refill(s ), Acute Complet ed 02/13/2024 180.0 Ambulat ory Pharmac y DULOXETINE HCL (duloxetine HCl), 20 MG, CAPSULE MACY WARREN, AJANTA PHARMA L, 60 ea. BOTTLE Active [id number] 4 2023 30 Pharmac y Data Transac tion Service Facilit y DULOXETINE HCL (duloxetine HCl), 30 MG, CAPSULE MACY WARREN, AJANTA PHARMA L, 30 ea. BOTTLE Active [id number] 2023 90 Pharmac y Data Transac tion Service Facilit y ELIQUIS (APIXABAN), 5 MG, TABLET, ORAL, BMS PRIMARYCARE , 60 ea. BOTTLE Cancele d [id number] : 2023 0 Pharmac y Data Transac tion Service Facilit y ELIQUIS (APIXABAN), 5 MG, TABLET, ORAL, BMS PRIMARYCARE , 60 ea. BOTTLE Cancele d [id number] : 2023 0 Pharmac y Data Transac tion Service Facilit y ELIQUIS (APIXABAN), 5 MG, TABLET, ORAL, BMS PRIMARYCARE , 60 ea. BOTTLE Active [id number] 2022 60 Pharmac y Data Transac tion Service Facilit y IBUPROFEN (ibuprofen) , 400 MG, TABLET, ORAL, Xenon Arc PHARMA, 500 ea. BOTTLE Active [id number] 2023 30 Pharmac y Data Transac tion Service Facilit y METOPROLOL SUCCINATE (metoprolol succinate), 50 MG, TAB ER 24H, ORAL, ACTAVIS/TEV A, 100 ea. BOTTLE Cancele d [id number] : 2023 0 Pharmac y Data Transac tion Service Facilit y PANTOPRAZOL E SODIUM (PANTOPRAZO LE SODIUM), 40 MG, TABLET DR, ORAL, MYLAN, 90 ea. BOTTLE Active [id number] 2023 30 Pharmac y Data Transac tion Service Facilit y Immunizations Combined list of available immunizations from the Department of Defense and Veterans Affairs facilities. Immunization Series Date Given Administered By Site Reaction Lot Number CVX Code Drug Wellhead Pumper Status Comments Source COVID-19 (Flayr), MRNA, LNP-S, BIVALENT, PF, 30 MCG/0.3 ML DOSE 1 2021 300 complet ed [facility] INFLUENZA VACCINE, QUADRIVALENT, ADJUVANTED 5 2021 205 complet ed [facility] INFLUENZA VACCINE, QUADRIVALENT, ADJUVANTED 4 2020 205 complet ed [facility] INFLUENZA, RECOMBINANT, QUADRIVALENT, INJECTABLE, PRESERVATIVE FREE 3 2019 185 complet ed [facility] Hep A-Hep B 2019 [facility], () Not Given Hep A-Hep B DoD Tdap 2019 [facility], () Not Given Tdap DoD INFLUENZA, HIGH DOSE SEASONAL 2 2018 135 complet ed [facility] PNEUMOCOCCAL POLYSACCHARID E PPV23 2 2018 33 complet ed [facility] N TDAP 1 2016 115 complet ed [facility] N PNEUMOCOCCAL CONJUGATE PCV 13 1 2015 133 complet ed [facility] INFLUENZA, HIGH DOSE SEASONAL 1 2015 135 complet ed [facility] N Vital Signs Combined list of inpatient and outpatient Vital Signs from Department of [facility] and [facility], ranging from 12 months to all on record, depending upon the facility. Vital Sign Value Date Comments Source No data available for this section Ambulatory Pharmacy Encounters Combined list of: 1) Encounters from Department of [facility] facilities going back up to thelast 18 months. 2) Encounters from the Department of [facility] facilities going back up to 280 months. Location Location Details Encounter Type Encounter Number Reason For Visit Attending Provider ADM Date DC Date Status Disposition Source [facility] Outpatient Encounter [id number] 06/09 [facility] Outpatient Encounter [id number] 08/01 [facility] CASE MANAGEMENT [id number] Diagnos is: ICD-10- CM Z74.1 Need for assista nce with persona l care
DELMAR SALAS 08/08 [facility] [id number] Diagnos is: ICD-10- CM Z63.6 Depende nt relativ e needing care at home
YOSEPH SHARMA [facility] Outpatient [facility]counter [id number] 10/25 [facility] ASSMT/REAS SESSMENT [id number] Diagnos is: ICD-10- CM Z63.6 Depende nt relativ e needing care at home
ALBERT,STA CY L 10/30 [facility] Outpatient Encounter [id number] 01/03 [facility] Outpatient Encounter [id number] PRICE,STA CY L 01/30 [facility] Procedures Combined list of: 1) Procedures from Department of [facility] Affairs facilities going back up to thelast 18 months, not all [place] non-surgical procedures are included; 2) All procedures from the Department [facility] facilities. Procedure Procedure Type Code Date Perfomer Comments Sourc e No data available for this section Ambulatory P harmacy Social History Combined list of available smoking, tobacco, and other social history from Department of [facility] and [facility] Affairs facilities. Social History Type Response Date Comment Sourc e This section is an empty social history section. DoD Assessment and Plan Combined list of future care activities from Department of [facility] and [facility] facilities (e.g., assessment and plan notes, appointments, orders, and referrals). Additional future care activities may be listed in the Plan of Care section. Result Assessment and Plan Date Source Assessment and Plan No data available for this section 11/17/2024 Ambulatory Pharmacy Functional Status Combined list of recent functional and cognitive assessments recorded at [facility] and [facility] ([facility] Functional [place] Measurement (FIM) Scale: 1 = Total Assistance (Subject = 0% +), 2 = Maximal Assistance (Subject = 25% +), 3 = Moderate Assistance (Subject = 50% +), 4 = Minimal Assistance (Subject = 75% +), 5 = Supervision, 6 = Modified [place] (Device), 7 = Complete [place] (Timely, Safely). Assessment Date/Time Source Assessment Type Assessment Skill Assessment Score Assessment Details No data available for this section
--- OUTSIDE RECORDS SUMMARY | 2024-11-16 22:59 | XMS_ITS | Continuity of Care Document ---
Author Organization [facility] Address [address] [place] [phone] Care Team Providers Care Grocery Checker Name Role Phone Bryant Olivares Primary Care Physician Encounter [facility] Financial Number [id number] Date(s): 11/12/21 - 11/12/[address] [id number] Discharge Disposition: Home or Self Care Attending Physician: Mona Hardin MD Admitting Physician: Mona Hardin MD Referring Physician: Mona Hardin MD Allergies, Adverse Reactions, Alerts Substance Reaction Severity Status penicillin Rash Active lisinopril Anaphylaxis Active Latex Burning of skin Active Medications Dilt-XR 240 mg/24 hours oral capsule, extended release 240 mg, 1 capsule(s), Oral, qhs, 30 capsule(s), Cap SR 24 HR, 0 Start Date: 10/20/21 Status: Ordered Eliquis 2.5 mg oral tablet 2.5 mg, 1 tablet(s), Oral, bid, 60 tablet(s), Tablet(s), 0 Start Date: 10/20/21 Status: Ordered Metoprolol Succinate ER 25 mg oral tablet, extended release 25 mg, 1 tablet(s), Oral, daily, 30 tablet(s), Tablet CR, 0 Start Date: 10/20/21 Status: Ordered Otezla Starter Pack oral tablet Oral, daily, 0 Start Date: 10/20/21 Status: Ordered pantoprazole 20 mg oral delayed release tablet 20 mg, 1 tablet(s), Oral, daily before breakfast, 30 tablet(s), Tab EC, 0 Start Date: 10/20/21 Status: Ordered Tremfya 100 mg/mL subcutaneous solution 100 mg, SubQ, [id number], 0 Start Date: 10/20/21 Status: Ordered Procedures Procedure Date Related Diagnosis Body Site Status cervical fusion Completed Hysterectomy Completed left TKA Completed lumbar fusion Completed potacath insertion Comple abdi Results Radiology Reports * Exam Date Time Procedure Performing Provider Status 11/12/21 10:12 AM SP INSERTION OF PICC > 5 YRS W/IMAGING 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 A left upper extremity peripherally inserted central catheter previously placed is malfunctioning and new PICC line is requested in addition to removal of the existing left upper extremity PICC line.. TECHNIQUE: The right upper extremity was selected for PICC line placement and an entry point was selected. The skin was prepped and draped in a sterile fashion. Maximum barrier protection technique was utilized per protocol. Using real-time ultrasound guidance, a micropuncture needle was used to access the basilic vein followed by the passage of a guidewire and a peel-away sheath. A dual-lumen PICC line was trimmed to 39 cm and advanced with fluoroscopic guidance to the superior vena cava. The catheter was flushed and secured. There were no immediate complications. Subsequently, the left PICC line was removed without difficulty. Total fluoroscopy time: 0.8 minutes. 1 fluoro save images. SUMMARY: Ultrasound and fluoroscopic guided right upper extremity PICC line placement, as described. Subsequent removal of left upper extremity PICC line. . Dictating Physician: Tristan Gutierrez M.D. Releasing Physician: Tristan Gutierrez M.D. Signature Electronically Authorized Authorized Date/Time: 12-NOV-2021 01:36 pm Vital Signs Most recent to oldest [Reference Range]: 1 2 3 Peripheral Pulse Rate [60-100 bpm] 74 bpm (11/12/21 10:10 AM) 76 bpm (11/12/21 9:50 AM) 78 bpm (11/12/21 9:22 AM) Respiratory Rate [14-22 br/min] 20 br/min (11/12/21 10:10 AM) 20 br/min (11/12/21 9:50 AM) 20 br/min (11/12/21 9:22 AM) Blood Pressure [89-139/60-90 mm Hg] 143/76mm Hg *H* (11/12/21 10:10 AM) 153/74mm Hg *H* (11/12/21 9:50 AM) 141/61mm Hg *H* (11/12/21 9:22 AM) Oxygen Therapy Room air (11/12/21 10:10 AM) Room air (11/12/21 9:50 AM) Room air (11/12/21 9:22 AM) Social History Social History Type Response Alcohol Never alcohol user Substance Abuse Never drug user Smoking Status Never smoker;Never; Tobacco Cessation Counseling Requested N/A entered on: 10/27/21 Sex Medical Equipment Implanted Date:10/27/21Target Site:Unknown Description Quantity MRI Company Model CEMENT BONE BIOMET R 1X40 1 [employer] Unknown [place]:No Information Assigning Authority: FDA STL-COMPONENT KNEE FEMORAL [employer]Y [employer] Unknown [place]:No Information Assigning Authority: FDA STL-COMPONENT KNEE TIBIAL REM[employer]Y [employer] Unknown [place]:No Information Assigning Authority: FDA STL-STEM KNEE EXTENSION ALEX DY 100MM 1 [employer] Unknown [place]:No Information Assigning Authority: FDA STL-STEM KNEE EXTENSION ALEX DY 100MM 1 [employer] Unknown CY:No Information Assigning Authority: [facility] Hospital Discharge Instructions Patient Education 11/12/2021 08:57:20 Changing the Dressing on Your Peripherally Inserted Central Catheter (PICC), Discharge Instructions Discharge Instructions: Changing the Dressing on Your Peripherally Inserted Central Catheter (PICC) You are going home with a peripherally inserted central catheter (PICC). This small, soft tube has been placed in a vein in your arm. Where the catheter enters your body, it???s covered with a bandage (dressing). The bandage is often made of clear (transparent) plastic. This helps keep the area free of germs. To prevent infection, you need to keep the dressing clean and dry.??Only??change the dressing if you or a caregiver have been told to do so. This sheet explains the process. Also follow any specific instructions you get from your healthcare provider. Prevent infection with good hand hygiene A PICC can let germs into your body. This can lead to serious and sometimes deadly infections. To prevent infection, it???s very important that you, your caregivers, and others around you use good hand hygiene. This means washing your hands well with soap and water, and cleaning them with an alcohol-based hand gel as directed. Never touch the PICC or dressing without first using one of these methods. To wash your hands with soap and water: ???Wet your hands with clean, running water. (Don't use hot water. It can cause skin irritation when you wash your hands often.) ???Apply enough soap to cover the whole surface of your hands, including your fingers. ???Rub your hands together vigorously for at least 15 seconds. Make sure to rub the front and back of each hand up to the wrist, your fingers and fingernails, between the fingers, and each thumb. ???Rinse your hands with clean, running water. ???Dry your hands completely with a new, unused paper towel. Don???t use a cloth towel or other reusable towel. These can harbor germs. ???Use the paper towel to turn off the faucet, then throw it away. If you???re in a bathroom, also use a paper towel to open the door instead of touching the handle. When you don???t have access to soap and water: Use an alcohol-based hand gel to clean your hands. The gel should have at least 60% alcohol. Follow the instructions on the package. Your health care team can answer any questions you have about when to use hand gel, or when it???s better to wash withsoap and water. When to change the dressing ???If you have a clear dressing, change it every 7 days (or more often if instructed). ???If you have a gauze dressing, change it every 2 days. This includes gauze under a transparent dressing. ???If the dressing becomes loose, dirty, or wet, change it right away. Report this to your healthcare provider as soon as possible. Dressings will need to be changed more often if the patient has been sweating, as with a fever. Preventing infection while changing the dressing The PICC provides a direct path into your bloodstream. So the chance of infection is high as you change the dressing. Don???t touch the catheter where it enters the skin. And be very careful to keep your work area and supplies clean. Following the steps on this sheet will help. Keep in mind that some supplies come in germ-free (sterile) packaging. Make sure to keep these sterile during the dressing change. Supplies for changing the dressing A general list of supplies is below. Your healthcare team will provide you with a list of specific items and brands to use. Or you may get a kit that has everything you need. Your supplies may include: ???Gauze dressing ???Transparent dressing ???Antimicrobial sponge disk ???Antiseptic supplies to clean the skin and around the catheter exit site (such as chlorhexidine plus alcohol) ???Sterile gloves ???Non-sterile gloves and a mask ???Medical tape, adhesive strips, or a securement device Before you start, review the steps below and make sure you understand them. If you???re not sure what to do or how to use your supplies, ask a member of your healthcare team before you try to change the dressing. Note: Since the PICC is in your arm, you???ll only have one free arm during the dressing change. This makes it very hard to change the dressing yourself. Have someone available to help you. Step 1. Wash your hands Wash your hands well with soap and water. Use the method described above. Step 2. Prepare your work area ???Choose an area with a hard, flat surface where you can easily spread out the supplies, such as adesk or table. Don???t use the bathroom; there are too many germs. ???Put pets and children out of the work area. Keep them out until the dressing change is done. ???Clean washable surfaces with soap and water. Dry with a clean, unused paper towel. Then throw the paper towel away. ???Spread clean, unused paper towels over your work surface. Use as many as you need to cover it. ???If you need to cough or sneeze, move away from your work surface first.?? Step 3. Lay out your supplies ???Clean your hands with soap and water or hand gel. Do this before you lay out your supplies on the work surface. ???After cleaning your hands, only touch your supplies. If you do touch anything else, such as furniture or your clothes, wash your hands again. This is very important for preventing infection. ???Place your supplies on the cleaned and dried work surface. Lay them out in the order you will beusing them. ???If you???re using a kit with a sterile tray, take off the plastic covering. Remove the covering only. Don???t open the tray. Keep the plastic covering. You can use it to dispose of the old dressing. Step 4. Remove the old dressing ???Put on clean gloves and a mask. Anyone who is helping you change the dressing should do this, too. (Don???t use sterile gloves for this step. Sterile gloves are used in Step 5.) ???Take off the old dressing by gently pulling the edges. Carefully peel off the dressing in the direction of the catheter site. While doing this, hold the end of the catheter (lumen) so it doesn???tpull out of your body. ???If a securement device is in place, carefully remove it using the method your nurse showed you. ???Check the catheter site for signs of infection such as redness, swelling, drainage, or a bad odor. If you notice any, call your healthcare team when you???re finished changing the dressing. ???Wrap the old dressing in plastic (if available) and put it aside. Step 5. Prepare sterile supplies ???Remove your gloves and clean your hands with hand gel. You should still be wearing the mask.?Open any sterile supplies, such as the transparent dressing and sterile gloves. Follow the directions on the package or your healthcare team???s instructions. ???Put on sterile gloves. Follow the directions on the package or as you were shown in the hospital. Step 6. Clean the catheter site ???If the skin under the dressing has dried blood or a lot of drainage, clean it as directed by your healthcare team. ???Clean the catheter exit site using the antiseptic supplies your healthcare team recommends. It???s very important to follow the package directions and your provider???s instructions exactly. Step 7. Apply the new dressing ???If you???re using a securement device, apply it as you were shown. This may be skipped if you have stitches holding the PICC in place. (Be sure to report any loose stitches to your healthcare provider.) ???If you???re using a gauze dressing, apply it over the catheter exit site the way your nurse showed you. ???If you???re using an antimicrobial sponge disk, place it around the catheter with the correct side touching your skin. Line up the slit on the sponge disk with the catheter. ???Apply the transparent dressing over the catheter exit site and over the gauze or sponge disk (ifused). Put the top end down first. Then smooth out the rest across the area where the catheter exits your skin. Make sure the dressing covers the entire catheter. ???Take off and discard the sterile gloves and mask. ???Tape the end of the catheter (lumen) to your skin, as directed by your healthcare provider. ???Throw away the old dressing and used supplies. ???Wash your hands. Changing the injection caps The catheter???s injection caps need to be changed every 3 to 7 days. This is often done at the same time as the dressing change. Your healthcare provider will give you instructions. Risk of blood clot If a blood clot forms, it can block blood flow through the vein where the catheter was placed. Signs of a blood clot include pain or swelling in your neck, face, chest, or arm. If you have any of these symptoms, call your healthcare provider right away. You may need an ultrasound exam to locate the blood clot and be treated with a blood thinner. When to seek medical care Call your healthcare provider right away if you have any of the following: ???Pain or swelling in your shoulder, chest, back, arm, or leg ???Fever of 100.4?? F ( 38.0??C ) or higher ???Chills ???Signs of infection at the catheter site (pain, redness, drainage, burning, or stinging) ???Coughing, wheezing, or shortness of breath ???A racing or irregular heartbeat ???Muscle stiffness or trouble moving ???Gurgling noises coming from the catheter ???The catheter falls out, breaks, cracks, leaks, or has other damage ?? [id number] [employer]. All rights reserved. This information is not intended as a substitute for professional medical care. Always follow your healthcare professional's instructions. 11/12/2021 08:57:20 Peripherally Inserted Central Catheter (PICC) Peripherally Inserted Central Catheter (PICC) A PICC may have more than one channel. This means that different fluids or medicines can be given at once. Keep in mind that your PICC should be accessed only by trained medical assembler. You need a peripherally inserted central catheter (PICC) for your treatment. A catheter is a small,soft tube. The catheter is inserted into a vein in your arm. It is then moved through??your vein until the tip sits in the large vein (vena cava) near??your heart. A PICC is often used when treatmentrequires you to have medicine or nutrition for weeks or months. When you no longer need the PICC, yo ur healthcare provider will remove it.??Your skin will then heal. This article tells you more abouta PICC and how a healthcare provider places it??in your body. Why do I need a PICC? A PICC takes the place of a standard IV (intravenous) line. A standard IV needs to be changed everyfew days. Since the PICC can stay in place longer, you may??have fewer needle sticks during your treatment. There is less damage to the small veins where an IV would normally be inserted. Your healthcare provider can give you more details about why you need the PICC. Getting a PICC A short procedure is done to place the PICC in your body. This will be done in your hospital room, the radiology department, or somewhere else in the hospital. It may vary slightly from the steps described here. Your healthcare team can tell you what to expect. In general, during PICC placement: ???You???re fully covered with a large sterile sheet (drape). This lowers risk for infection. Only the spot where the PICC will be placed is exposed. The skin here is cleaned with an antiseptic solution. ???Ultrasound images may be viewed on a video screen. These are used to help find the best vein to use. ???The area where the PICC will be inserted is numbed with a shot of local anesthetic. This decreases discomfort??during the PICC placement. ???After the local anesthetic takes effect, the catheter is gently passed into the vein. It???s moved along until the tip is in the vena cava, close to the heart. ???The other end of the catheter sticks out a few inches from your skin. It may be loosely attachedto the skin with stitches (sutures) or a securement device. ???The provider will flush the catheter with saline solution to clear it. The solution may include heparin, which prevents blood clots. ???An X-ray or other imaging test is done. This confirms the catheter???s position and checks for problems. Risks and complications As with any procedure, getting a PICC has certain risks. These include: ???Infection ???Bleeding problems ???An irregular heartbeat ???Injury to the vein or to lymph ducts near the vein ???Inflammation of the vein (phlebitis) ???Clots or air bubbles in the bloodstream ???Blockage of the blood vessel where the catheter is inserted ???Clots in the vein that may travel to the lung (pulmonary embolism) ???Nerve injury ???Accidental insertion into an artery instead of a vein ???Catheter not positioned correctly or the catheter may move or migrate from its correct position ?? [id number] [employer]. All rights reserved. This information is not intended as a substitute for professional medical care. Always follow your healthcare professional's instructions.
--- OUTSIDE RECORDS SUMMARY | 2024-11-16 22:59 | XMS_ITS | Continuity of Care Document ---
Author Organization [facility] Address [address] [place] [id number] Care Team Providers Care Floral Manager Name Role Phone Bryant Olivares Primary Care Physician Encounter [facility] Financial Number [id number] Date(s): 01/17/22 - 01/17/[address] [id number] Encounter Diagnosis Fall(Discharge Diagnosis) - 01/17/22 Shoulder contusion(Discharge Diagnosis) - 01/17/22 Right shoulder pain(Discharge Diagnosis) - 01/17/22 Left shoulder pain(Discharge Diagnosis) - 01/17/22 Head injury(Discharge Diagnosis) - 01/17/22 Discharge Disposition: Home or Self Care Attending Physician: Ignacio Singletary M.D. Referring Physician: Bryant Olivares MD Allergies, Adverse Reactions, Alerts Substance Reaction Severity Status penicillin Rash Active lisinopril Anaphylaxis Active Latex Burning of skin Active Medications acetaminophen-HYDROcodone 325 mg-5 mg oral tablet 1 tablet(s), Oral, [id number], PRN, 3 day(s), 18 tablet(s), Tablet(s), 0, 0, pain, 01/20/2022 1346, Route to Pharmacy Electronically, [facility] #[id number], [id number], 173, cm, 01/17/2022 1132, Height, 86.18, kg, 01/17/2022 1... Start Date: 01/17/22 Stop Date: 01/20/22 Status: Ordered cefepime See Instructions, 0, Unsure of dose, Instructions Replace Required Details Start Date: 11/16/21 Status: Ordered Dilt-XR 240 mg/24 hours oral capsule, extended [...] 100 mg/mL subcutaneous solution 100 mg, SubQ, [id number], 0 Start Date: 10/20/21 Status: Ordered vancomycin 0, Unsure of dose Start Date: 11/16/21 Status: Ordered Procedures Procedure Date Related Diagnosis Body Site Status cervical fusion Completed Hysterectomy Completed left TKA Completed lumbar fusion Completed potacath insertion Comple abdi Revision Completed Results Radiology Reports * Exam Date Time Procedure Performing Provider Status 01/17/22 12:41 PM SHOULDER COMPLETE LEFT Blanka Najera Bow Maker Custom; Auth (Verified) Notes: (SHOULDER COMPLETE LEFT) Reason For Exam: left shoulder pain SHOULDER COMPLETE LEFT SHOULDER COMPLETE LEFT 01/17/2022 12:41 left shoulder pain Findings: Internal rotation and external rotation and scapular Y views. Severe glenohumeral, moderate acromioclavicular joint arthroses. No evidence of acute fracture. Lower cervical instrumentation and right chest wall Port-A-Cath noted. IMPRESSION: Severe glenohumeral, moderate acromioclavicular joint arthroses. No evidence of acute fracture. This report has been generated using [employer] voice recognition software. It has not been edited for content by a professional rig site engineer/book editor. Dictating Physician: Braulio Ibarra MD Releasing Physician: Braulio Ibarra MD Signature Electronically Authorized Authorized Date/Time: 17-JAN-2022 12:54 pm * Exam Date Time Procedure Performing Provider Status 01/17/22 12:36 PM SHOULDER COMPLETE RIGHT Blanka Najera Tech; Auth (Verified) Notes: (SHOULDER COMPLETE RIGHT) Reason For Exam: shoulder pain SHOULDER COMPLETE RIGHT SHOULDER COMPLETE RIGHT 01/17/2022 12:36 shoulder pain Findings: Internal rotation, external rotation and scapular Y views. No acute fracture. Glenohumeral and acromio clavicular joint arthroses noted. Right jugular Port-A-Cath in place. Visible portion right lung clear. IMPRESSION: No acute fracture. Glenohumeral and acromio clavicular joint arthroses. This report has been generated using [employer] voice recognition software. It has not been edited for content by a professional rig site engineer/book editor. Dictating Physician: Braulio Ibarra MD Releasing Physician: Braulio Ibarra MD Signature Electronically Authorized Authorized Date/Time: 17-JAN-2022 12:41 pm * Exam Date Time Procedure Performing Provider Status 01/17/22 12:[address] CERVICAL SPINE W/ O CONTRAST Savanah Rockwell RT (CT); Auth (Verified) Notes: (CT CERVICAL SPINE W/O CONTRAST) Reason For Exam: Neck trauma CT CERVICAL SPINE W/O CONTRAST EXAM: CT cervical spine without contrast DATE: 01/17/2022 12:21 HISTORY:Neck trauma TECHNIQUE: Axial 2.5 mm sections with multiplanar reformats. Iterative reconstruction and automated mA exposure control were utilized for the acquisition of this exam. FINDINGS: No acute fracture is observed. Anterior decompression instrumentation and solid-appearing fusion are observed C5-6 and C6-7 with anterior plate and screw instrumentation in place. Moderate residual foraminal stenoses are present both levels but there is no residual central canal stenosis. 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 Moderate to severe left greater than right foraminal stenoses are present above these levels but there is no central canal stenosis C7-T1 demonstrates no significant central canal stenosis or foraminal stenosis. No acute fracture or prevertebral swelling are detected. Right jugular Port-A-Cath with tubing entering the SVC noted. IMPRESSION: No evidence of acute fracture or hemorrhage. Anterior instrumentation C5-6 and C6-7 with solid fusion. Auto fusion changes are noted C3-4 and C4-5. There are left greater than right residual foraminal stenoses at all 4 of these levels but no residual central canal stenosis is detected. 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 No definite central canal stenosis is detected either these levels. This report has been generated using [employer] voice recognition software. It has not been edited for content by a professional rig site engineer/book editor. Dictating Physician: Braulio Ibarra MD Releasing Physician: Braulio Ibarra MD Signature Electronically Authorized Authorized Date/Time: 17-JAN-2022 12:39 pm * Exam Date Time Procedure Performing Provider Status 01/17/22 12:25 PM HUMERUS RIGHT Dania Blanka Moulton h; Auth (Verified) Notes: (HUMERUS RIGHT) Reason For Exam: arm pain HUMERUS RIGHT HUMERUS RIGHT 01/17/2022 12:25 arm pain Findings: AP and lateral views. No acute fracture. Glenohumeral and acromioclavicular joint arthroses noted. Right chest wall Port-A-Cath in place. IMPRESSION: No acute fracture. This report has been generated using [employer] voice recognition software. It has not been edited for content by a professional rig site engineer/book editor. Dictating Physician: Braulio Ibarra MD Releasing Physician: Braulio Ibarra MD Signature Electronically Authorized Authorized Date/Time: 17-JAN-2022 12:40 pm * Exam Date Time Procedure Performing Provider Status 01/17/22 12:[address] HEAD W/O CONTRAST Savanah Rockwell RT (CT); Auth (Verified) Notes: (CT HEAD W/O CONTRAST) Reason For Exam: Head trauma, moderate-severe CT HEAD W/O CONTRAST CT brain without contrast DATE: 01/17/2022 12:21 HISTORY: Head trauma, moderate-severe TECHNIQUE: Axial 5 mm sections. Iterative reconstruction and automated mA exposure control were utilized for the acquisition of this exam. COMPARISON: None. FINDINGS: No intracranial hemorrhage, mass-effect or midline shift. No extra-axial fluid collection. No large vessel infarct within the limit of the exam. Ventricles and basal cisterns patent and symmetric. Calvarium intact. Visible paranasal sinuses and mastoid air cells well-aerated. IMPRESSION: No acute intracranial process. This report has been generated using [employer] voice recognition software. It has not been edited for content by a professional rig site engineer/book editor. Dictating Physician: Braulio Ibarra MD Releasing Physician: Braulio Ibarra MD Signature Electronically Authorized Authorized Date/Time: 17-JAN-2022 12:36 pm Vital Signs Most recent to oldest [Reference Range]: 1 2 3 Temperature Temporal Artery [35.8-38 DegC] 35.7 DegC *L* (01/17/22 11:32 AM) Peripheral Pulse Rate [60-100 bpm] 78 bpm (01/17/22 11:32 AM) Respiratory Rate [14-22 br/min] 17 br/min (01/17/22 11:32 AM) Blood Pressure [89-139/60-90 mm Hg] 140/76mm Hg *H* (01/17/22 1:00 PM) 140/83mm Hg *H* (01/17/22 12:30 PM) 129/82mm Hg (01/17/22 11:32 AM) Height 173 cm (01/17/22 11:32 AM) Social History Social History Type Response Alcohol Never alcohol user Substance Abuse Never drug user Smoking Status Never smoker;Never; Tobacco Cessation Counseling Requested N/A entered on: 10/27/21 Sex Medical Equipment Implanted Date:10/27/21Target Site:Unknown Description Quantity MRI Company Model CEMENT BONE BIOMET R 1X40 1 [employer] Unknown [place]:No Information Assigning Authority: [facility] [employer]COMPONENT [employer] F[employer]ORAL [employer] Unknown CY:No Information Assigning Authority: [facility] [employer] TIBIAL [employer] Unknown CY:No Information Assigning Authority: FDA STL-STEM KNEE EXTENSION ALEX DY 100MM 1 [employer] Unknown CY:No Information Assigning Authority: [facility] [employer] KNEE EXTENSION ALEX DY 100MM 1 [employer] Unknown CY:No Information Assigning Authority: [facility] Hospital Discharge Instructions Patient Education 01/17/2022 13:47:21 Head Injury (Adult) Head Injury (Adult) You have a head injury. It doesn't appear serious at this time. But symptoms of a more serious problem, such as a mild brain injury (concussion) or bruising or bleeding in the brain, may appear later. For this reason, you or someone caring for you will need to watch for the symptoms listed below. Once you???re home, also be sure to follow any care instructions you???re given. Home care Watch??for the following symptoms Seek emergency medical care if you have any of these symptoms over the next hours to days:?Headache that gets worse or doesn't go away ???Nausea or vomiting ???Dizziness ???Sensitivity to light or noise ???Unusual sleepiness or grogginess ???Trouble falling asleep ???Personality changes ???Vision changes ???Memory loss ???Confusion ???Trouble walking or clumsiness ???Loss of consciousness (even for a short time) ???Inability to be awakened ???Stiff neck ???Weakness or numbness in any part of the body ???Seizures General care ???If you were prescribed medicines for pain, use them as directed. Note: Don???t take other medicines for pain without talking to your provider first. ???To help reduce swelling and pain, apply a cold source to the injured area for up to 20 minutes at a time. Do this as often??as directed. Use a cold pack or bag of ice wrapped in a thin towel. Never apply a cold source directly to the skin. ???If you have cuts or scrapes as a result of your head injury, care for them as directed. ???For the next 24 hours??(or longer, if instructed): oDon???t drink alcohol or use sedatives or other medicines that make you sleepy. oDon???t drive or operate machinery. oDon???t do anything strenuous, such as heavy lifting or straining. oLimit tasks that require concentration. This includes reading, using a smartphone or computer, watching TV, and playing video games. oDon???t return to sports or other activities that could result in another head injury until approved by your healthcare provider. Follow-up care Follow up with your healthcare provider, or as directed.??If imaging tests were done, they will be reviewed by a doctor. You will be told the results and any new findings that may affect your care. When to seek medical advice Call your healthcare provider right away if any of these occur: ???Pain doesn???t get better or worsens ???New or increased swelling or bruising ???Increased redness,??warmth,??drainage, or bleeding from the injured area ???Fluid drainage or bleeding from the nose or ears ???Any depression or bony abnormality in the injured area ???Persistent confusion or lethargy ???Personality changes ???Bruising behind the ears or bruising around the eyes ?? [id number] [employer]. All rights reserved. This information is not intended as a substitute for professional medical care. Always follow your healthcare professional's instructions. 01/17/2022 13:47:21 Shoulder Exercises: Wall Pushup Shoulder Exercises: Wall Pushup Strengthening exercises help make your injured shoulder more stable by making the muscles that support your shoulder stronger. To warm up and stretch your muscles, move your arms around first. Here are steps for the wall pushup:?With feet and hands shoulder-width apart, place your palms on the wall, standing about an arm???s length away. ???Slowly breathe in (inhale) and keep your knees straight and heels on the floor. Then bend your elbows and slowly lean forward to lower your upper body toward the wall, as far as you comfortably can. Make sure to keep your feet flat on the floor. Your elbows should be pointing downward. Hold thisposition for one second. ???Slowly breathe out (exhale), then push away from the wall until your arms are straight and you are back to the starting position. ???Repeat. Work up to?? 15 wall pushups. Note Wear shoes that keep you from slipping. ?? [id number] [employer]. All rights reserved. This information is not intended as a substitute for professional medical care. Always follow your healthcare professional's instructions. 01/17/2022 13:47:21 Shoulder Contusion You can take the hydrocodone 1 tablet every 4-6 hours as needed for pain. Try to move your shoulders a little bit every day to prevent them from getting stiff. Follow-up with your family doctor in the office in a few days if not improving Shoulder Bruise You have a shoulder bruise (contusion). This causes pain, swelling, and sometimes bruising on the skin. You don???t have any broken bones. This injury will take from a few days to several weeks to heal, depending on how severe it is. Moderate to severe shoulder bruises are treated with a sling or shoulder immobilizer. Minor bruises can be treated without any special support. Home care Follow these tips when caring for yourself at home: ??? If you were given a sling to use, leave it in place for the time advised by your healthcare provider. If you aren???t sure how long to wear it, ask for advice. If the sling becomes loose, adjust it so that your forearm is parallel with the ground. Your shoulder should feel well supported. ??? Put an ice pack on the injured area for 20 minutes every 1 to 2 hours the first day. You can make your own ice pack by putting ice cubes in a plastic bag. Wrap the bag in a thin towel. Continue with ice packs 3 to 4 times a day for the next 2 days. Then use the pack as needed to ease pain and swelling. ??? You may use acetaminophen or ibuprofen to control pain, unless another pain medicine was prescribed.??If you have chronic liver or kidney disease, talk with your healthcare provider before using these medicines. Also talk with your provider if you???ve ever had a stomach ulcer or digestive bleeding. ??? Shoulder and elbow joints become stiff if left in a sling for too long. You should start range of motion exercises about 7 to 10 days after the injury. Talk with your provider to find out what type of exercises to do and how soon to start. ??? Unless your provider told you otherwise, you can take the sling off to shower or bathe. Follow-up care Follow up with your healthcare provider if you don???t start getting better in the next 5 days. When to seek medical advice Call your healthcare provider right away??if any of these occur: ??? Pain or swelling gets worse??or continues for more than a few days ??? Large amount of bruising on your shoulder or upper arm ??? Your hand or fingers become cold, blue, numb, or tingly ??? Trouble moving your hand or fingers ??? Weakness in your hand or fingers ??? Your shoulder becomes stiff ??? Your shoulder feels like it is popping out ??? You aren???t able to do your daily activities ?? [id number] [employer]. All rights reserved. This information is not intended as a substitute for professional medical care. Always follow your healthcare professional's instructions.
--- OUTSIDE RECORDS SUMMARY | 2024-11-16 22:59 | XMS_ITS | Encounter Summary ---
Author Name [facility] Organization [facility] Address [address] [place] [id number] Selected Encounter This section includes the information on record at [place] for the Encounter. Date/Time Encounter Type Encounter Description Reason Provider Source Jan 31, 2024 01:40 PM Outpatient Encounter ADMIN PAT ACTIVTIES (MASNONCT) AMBER PRICE E Encounter Template Text not used by [place] Encounter Notes: All associated encounter notes This section contains the clinical notes associated to the Encounter. Date/Time Encounter Note(s) Provider Source Jan 31, 2024 01:40 PM CAREGIVER CERTIFIC ATE: LOCAL TITLE: CSP DISCHARGE OR REVOCATION NOTE STANDARD TITLE: CAREGIVER CERTIFICATE DATE OF NOTE: JAN 31, 2024@13:40 ENTRY DATE: JAN 31, 2024@13:40:53 AUTHOR: AMBER PRICE EXP COSIGNER: URGENCY: STATUS: COMPLETED CSP DISCHARGE OR REVOCATION NOTE Has ADDENDA Caregiver Support Program Discharge/Revocation Note Discharge/Revocation Date 01/31/24 Discharged or Revoked from the Program of Comprehensive Assistance for Family Caregivers The person being discharged or revoked is the Primary Family Caregiver. Name of : Mauro Stock The reason for discharge is [place] request. Date of Centralized Eligibility and Appeals Team determination: n/a Date of verbal notification/attempt of determination: 01/31/2024 (See [place]'s chart, Addendum CSP Telephone Note on 01/31/24) Date determination letter was mailed: to be mailed 02/01/24 The following information was provided: Appeal and Review Options /es/ ANNALEE Valdes, COMMERCIAL MANAGEMENT ACCOUNTANT Electrical Instrument Repairer Signed: 01/31/2024 13:42 Receipt Acknowledged By: 02/01/2024 11:14 /shandra/ JOSE MCINTOSH GEAR GENERATOR SET UP OPERATOR 02/01/2024 07:34 /es/ ANNALEE Bright, COMMERCIAL MANAGEMENT ACCOUNTANT Clinical Electrical Instrument Repairer 01/31/2024 ADDENDUM STATUS: COMPLETED [id number] /shandra/ ANNALEE Valdes, KEVEN Electrical Instrument Repairer Signed: 01/31/2024 16:14 AMBER PRICE [facility]
--- OUTSIDE RECORDS SUMMARY | 2024-11-16 23:00 | XMS_ITS | Continuity of Care Document ---
Author Organization [facility] Address [address] [place] [phone] Care Team Providers Care Calibration Checker Name Role Phone Bryant Olivares Primary Care Physician Encounter [facility] Financial Number [id number] Date(s): 11/05/21 - 11/05/[address] [id number] Encounter Diagnosis Left leg swelling(Discharge Diagnosis) - 11/05/21 Postoperative state(Discharge Diagnosis) - 11/05/21 Postoperative anemia due to acute blood loss(Discharge Diagnosis) - 11/05/21 Discharge Disposition: Home or Self Care Attending Physician: Magan Guillen MD Referring Physician: Bryant Olivares MD Allergies, Adverse [...] 100 mg/mL subcutaneous solution 100 mg, SubQ, [id number], 0 Start Date: 10/20/21 Status: Ordered Mental Status 11/05/21 Orientation Oriented x 4 Procedures Procedure Date Related Diagnosis Body Site Status cervical fusion Completed Hysterectomy Completed left TKA Completed lumbar fusion Completed potacath insertion Comple abdi Results Laboratory List Name Date Basic Metabolic Profile (BMP) 11/05/21 CBC with Differential 11/05/21 Differential, Automated 11/05/21 Most recent to oldest [Reference Range]: 1 BUN [7-17 mg/dL] 15 mg/dL (11/05/21 6:35 PM) Calcium [8.4-10.2 mg/dL] 8.1 mg/dL *L* (11/05/21 6:35 PM) Chloride [98-107 mmol/L] 103 mmol/L (11/05/21 6:35 PM) CO2 [22-30 mmol/L] 27 mmol/L (11/05/21 6:35 PM) Glucose [74-106 mg/dL] 98 mg/dL (11/05/21 6:35 PM) Potassium [3.5-4.9 mmol/L] 3.6 mmol/L (11/05/21 6:35 PM) Sodium [137-145 mmol/L] 135 mmol/L *L* (11/05/21 6:35 PM) Baso # [0.0-0.2 x10E3/uL] 0.1 x10E3/uL (11/05/21 6:35 PM) Eos # [0.0-0.8 x10E3/uL] 0.5 x10E3/uL (11/05/21 6:35 PM) Hematocrit [36.0-54.0 %] 25.1 % *L* (11/05/21 6:35 PM) Lymph % [22.0-55.0 %] 21.2 % *L* (11/05/21 6:35 PM) Lymph # [0.8-2.5 x10E3/uL] 2.6 x10E3/uL *H* (11/05/21 6:35 PM) MCHC [32-37 g/dL] 33 g/dL (11/05/21 6:35 PM) MCH [28.0-34.0 pg] 29.4 pg (11/05/21 6:35 PM) MCV [80.0-100.0 fL] 88.6 fL (11/05/21 6:35 PM) [place] # [0.0-1.3 x10E3/uL] 1.0 x10E3/uL (11/05/21 6:35 PM) MPV [0.0-9.0 fL] 7.1 fL (11/05/21 6:35 PM) Neutro # [1.8-8.8 x10E3/uL] 7.8 x10E3/uL (11/05/21 6:35 PM) Platelet [150-440 x10E3/uL] 349 x10E3/uL (11/05/21 6:35 PM) RBC [4.00-6.00 x10E6/uL] 2.83 x10E6/uL *L* (11/05/21 6:35 PM) RDW [11.5-16.0 %] 16.2 % *H* (11/05/21 6:35 PM) WBC [4.0-11.0 x10E3/uL] 12.1 x10E3/uL *H* (11/05/21 6:35 PM) Neutro % [45.0-80.0 %] 65.0 % (11/05/21 6:35 PM) [place] % [0.0-12.0 %] 8.4 % (11/05/21 6:35 PM) Eos % [0.0-7.0 %] 4.3 % (11/05/21 6:35 PM) Baso % [0.0-2.0 %] 1.1 % (11/05/21 6:35 PM) Nucleated RBCs [0-0 %] 0 % (11/05/21 6:35 PM) Creatinine [0.5-1.0 mg/dL] 0.8 mg/dL (11/05/21 6:35 PM) Hemoglobin [12.0-18.0 g/dL] 8.3 g/dL *L* (11/05/21 6:35 PM) eGFR(4vMDRD) [>=60 mL/min/1.73m2] >60 mL /min/1.73m2 (11/05/21 6:35 PM) eCrCl(C-Gault) 1.0 mL/min/kg (11/05/21 6:35 PM) Differential Type Automated (11/05/21 6:35 PM) Anion Gap [7-16 mmol/L] 5 mmol/L *L* (11/05/21 6:35 PM) Radiology Reports * Exam Date Time Procedure Performing Provider Status 11/05/21 7:12 PM US LE VENOUS DUPLEX LEFT Hansel Rodriguez RDMS, RVT; Auth (Verified) Notes: (US LE VENOUS DUPLEX LEFT) Reason For Exam: post LLE swelling US LE VENOUS DUPLEX LEFT Left Lower Extremity Venous Duplex study DATE: 11/05/2021 19:12 CLINICAL DATA: post LLE swelling FINDINGS: Common femoral, superficial femoral, greater saphenous, profunda femoral, popliteal, and upper calf veins demonstrate normal spontaneous flow, compressibility, and augmentation without intraluminal thrombus. There is some fluid in the popliteal fossa possibly a small cyst. IMPRESSION: Negative left lower extremity venous Duplex study for DVT. Dictating Physician: Rolando Cartagena MD Releasing Physician: Rolando Cartagena MD Signature Electronically Authorized Authorized Date/Time: 06-NOV-2021 08:49 am Vital Signs Most recent to oldest [Reference Range]: 1 2 3 Temperature Temporal Artery [35.8-38 DegC] 36.5 DegC (11/05/21 5:16 PM) Peripheral Pulse Rate [60-100 bpm] 88 bpm (11/05/21 7:30 PM) 90 bpm (11/05/21 6:15 PM) 93 bpm (11/05/21 5:16 PM) Respiratory Rate [14-22 br/min] 18 br/min (11/05/21 5:16 PM) Blood Pressure [89-139/60-90 mm Hg] 144/84mm Hg *H* (11/05/21 7:30 PM) 157/81mm Hg *H* (11/05/21 6:15 PM) 167/83mm Hg *H* (11/05/21 5:16 PM) Height 165 cm (11/05/21 5:16 PM) Social History Social History Type Response Alcohol Never alcohol user Substance Abuse Never drug user Smoking Status Never smoker;Never; Tobacco Cessation Counseling Requested N/A entered on: 10/27/21 Sex Medical Equipment Implanted Date:10/27/21Target Site:Unknown Description Quantity MRI Company Model CEMENT BONE BIOMET R 1X40 1 [employer] Unknown CY:No Information Assigning Authority: FDA STL-COMPONENT KNEE FEMORAL REMEDY MEDIUM 1 [employer] Unknown [place]:No Information Assigning Authority: FDA STL-COMPONENT KNEE TIBIAL REMEDY MEDIUM 1 [employer] Unknown CY:No Information Assigning Authority: FDA STL-STEM KNEE EXTENSION ALEX DY 100MM 1 [employer] Unknown CY:No Information Assigning Authority: FDA STL-STEM KNEE EXTENSION ALEX DY 100MM 1 [employer] Unknown CY:No Information Assigning Authority: [facility] Discharge Instructions Patient Education 11/05/2021 19:02:29 Anemia Anemia Anemia is a condition that occurs when your body does not have enough healthy red blood cells (RBCs). RBCs are the parts of your blood that carry oxygen all over your body. A protein called hemoglobin allows your RBCs to absorb and release oxygen. Without enough RBCs or hemoglobin, your body doesn't get enough oxygen. Symptoms of anemia may then occur. What are the symptoms of anemia? Some people with anemia have no symptoms. But most people have symptoms that range from mild to severe. These can include: ???Tiredness (fatigue) ???Weakness ???Pale skin ???Shortness of breath ???Dizziness or fainting ???Rapid heartbeat ???Trouble doing normal amounts of activity ???Yellowing of your eyes, skin, or mouth and dark urine (jaundice) What causes anemia? Anemia can occur when your body: ???Loses too much blood ???Does not make enough RBCs ???Destroys your RBCs at a faster rate than it can replace them ???Does not make a normal amount of hemoglobin in your RBCs These problems can occur for many reasons, including: ???A condition that you are born with (congenital or inherited), such as sickle cell disease or thalassemia ???Heavy bleeding for any reason, including injury, surgery, childbirth, or even heavy menstrual periods ???Being low in certain nutrients, such as iron, folate, or vitamin B-12 ???Certain long-term (chronic) conditions such as diabetes, arthritis, or kidney disease ???Certain chronic infections such as tuberculosis or HIV ???Exposure to certain medicines, such as those used for chemotherapy There are different types of anemia. Your healthcare provider can tell you more about the type of anemia you have and what may have caused it. How is anemia diagnosed? To diagnose anemia, your healthcare provider orders blood tests. These can include: ???Complete blood cell count (CBC). This test measures the amounts of the different types of blood cells. ???Blood smear. This test checks the size and shape of your blood cells. To do the test, a drop of your blood is looked at under a microscope. A stain is used to make the blood cells easier to see. ???Iron studies. These tests measure the amount of iron in your blood. Your body needs iron to makehemoglobin in your RBCs. ???Vitamin B-12 and folate studies. These tests check for some of the components that help give RBCs a normal size and shape. ???Reticulocyte count. This test measures the amount of new RBCs that your bone marrow makes. ???Hemoglobin electrophoresis. This test checks for problems with your hemoglobin in RBCs. ???Bone marrow biopsy. This test evaluates the bone marrow where RBCs are made. How is anemia treated? Treatment for anemia is based on the type of anemia, its cause, and the severity of your symptoms. Treatments may include: ???Diet changes. This includes increasing the amount of certain nutrients in your diet, such as iron, vitamin B-12, or folate. Your healthcare provider may also prescribe nutrient supplements. ???Medicines. Certain medicines treat the cause of your anemia. Others help build new RBCs or ease symptoms. If a medicine is the cause of your anemia, you may need to stop or change it. ???Blood transfusions. Replacing some of your blood can increase the number of healthy RBCs in yourbody. ???Surgery. In some cases, your healthcare provider may do surgery to treat the underlying cause ofanemia. If you need surgery, your healthcare provider will explain the procedure and outline the risks and benefits for you. What are the long-term concerns? If you have a certain type of anemia, you can expect a full recovery after treatment. If you have other types of anemia (especially a type you're born with), you will need to manage it for life. Yourhealthcare provider can tell you more. ?? 4335-6145 [employer], [employer] All rights reserved. This information is not intended as a substitute for professional medical care. Always follow your healthcare professional's instructions.
--- OUTSIDE RECORDS SUMMARY | 2024-11-16 23:00 | XMS_ITS | Continuity of Care Document ---
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 with contact Acti ve Assessment and Plan Future Appointments Appointment Date:10/27/2021 03:00:00 PM Scheduled Provider: Location:[facility] Main OR Appointment Type:[facility] Surgery Medications Dilt-XR 240 mg/24 hours oral capsule, extended release 240 mg, 1 capsule(s), Oral, qhs, 30 capsule(s), Cap SR 24 HR, 0 Start Date: 10/20/21 Status: Ordered DilTIAZem Hydrochloride SR 60 mg/12 hours oral capsule, extended release 60 mg, 1 capsule(s), Oral, [id number], 60 capsule(s), Cap SR 12 HR, 0 Start Date: 10/20/21 Status: Ordered Eliquis 2.5 mg oral tablet 2.5 mg, 1 tablet(s), Oral, bid, 60 tablet(s), Tablet(s), 0 Start Date: 10/20/21 Status: Ordered losartan 100 mg oral tablet 100 mg, 1 tablet(s), Oral, daily, 90 tablet(s), Tablet(s), 0 Start Date: 10/20/21 Status: [...] 100 mg/mL subcutaneous solution 100 mg, SubQ, [id number], 0 Start Date: 10/20/21 Status: Ordered Problem List Diagnosis Diagnosis Type Effective Dates Health Status Clinical Service Informant Encounter for other preprocedural examination 10/21/21 Non-Specified Infection and inflammatory reaction due to other internal joint prosthesis, initial encounter 10/21/21 Non-Specified Encounter for other preprocedural examination 10/21/21 Non-Specified Infection and inflammatory reaction due to other internal joint prosthesis, initial encounter 10/21/21 Non-Specified Encounter for other preprocedural examination 10/21/21 Non-Specified Infection and inflammatory reaction due to other internal joint prosthesis, initial encounter 10/21/21 Non-Specified Encounter for other preprocedural examination 10/21/21 Non-Specified Infection and inflammatory reaction due to other internal joint prosthesis, initial encounter 10/21/21 Non-Specified Encounter for other preprocedural examination 10/21/21 Non-Specified Infection and inflammatory reaction due to other internal joint prosthesis, initial encounter 10/21/21 Non-Specified Encounter for other preprocedural examination 10/21/21 Non-Specified Infection and inflammatory reaction due to other internal joint prosthesis, initial encounter 10/21/21 Non-Specified Encounter for other preprocedural examination 10/21/21 Non-Specified Procedures Procedure Date Related Diagnosis Body Site Status cervical fusion Completed Hysterectomy Completed left TKA Completed lumbar fusion Completed potacath insertion Comple abdi Results Laboratory List Name Date ABO and Rh Type 10/21/21 Antibody Screen 10/21/21 CBC with Differential 10/21/21 Comprehensive Metabolic Profile 10/21/21 Differential, Automated 10/21/21 PT/INR 10/21/21 PTT 10/21/21 Most recent to oldest [Reference Range]: 1 Albumin [3.5-5.0 g/dL] 3.7 g/dL (10/21/21 9:09 AM) Alk Phos [38-126 U/L] 126 U/L (10/21/21 9:09 AM) BUN [7-17 mg/dL] 16 mg/dL (10/21/21 9:09 AM) Calcium [8.4-10.2 mg/dL] 8.8 mg/dL (10/21/21 9:09 AM) Chloride [98-107 mmol/L] 104 mmol/L (10/21/21 9:09 AM) CO2 [22-30 mmol/L] 28 mmol/L (10/21/21 9:09 AM) Glucose [74-106 mg/dL] 89 mg/dL (10/21/21 9:09 AM) Potassium [3.5-4.9 mmol/L] 3.8 mmol/L (10/21/21 9:09 AM) Sodium [137-145 mmol/L] 139 mmol/L (10/21/21 9:09 AM) Protein, Total [6.5-8.6 g/dL] 8.7 g/dL *H* (10/21/21 9:09 AM) Baso # [0.0-0.2 x10E3/uL] 0.0 x10E3/uL (10/21/21 9:09 AM) Eos # [0.0-0.8 x10E3/uL] 0.2 x10E3/uL (10/21/21 9:09 AM) Hematocrit [36.0-54.0 %] 34.4 % *L* (10/21/21 9:09 AM) Lymph % [22.0-55.0 %] 31.0 % (10/21/21 9:09 AM) Lymph # [0.8-2.5 x10E3/uL] 2.7 x10E3/uL *H* (10/21/21 9:09 AM) MCHC [32-37 g/dL] 34 g/dL (10/21/21 9:09 AM) MCH [28.0-34.0 pg] 29.9 pg (10/21/21 9:09 AM) MCV [80.0-100.0 fL] 89.2 fL (10/21/21 9:09 AM) Person # [0.0-1.3 x10E3/uL] 0.6 x10E3/uL (10/21/21 9:09 AM) MPV [0.0-9.0 fL] 7.8 fL (10/21/21 9:09 AM) Neutro # [1.8-8.8 x10E3/uL] 5.1 x10E3/uL (10/21/21 9:09 AM) Platelet [150-440 x10E3/uL] 347 x10E3/uL (10/21/21 9:09 AM) RBC [4.00-6.00 x10E6/uL] 3.86 x10E6/uL *L* (10/21/21 9:09 AM) RDW [11.5-16.0 %] 15.6 % (10/21/21 9:09 AM) WBC [4.0-11.0 x10E3/uL] 8.7 x10E3/uL (10/21/21 9:09 AM) INR [0.9-1.1] 1.1 (10/21/21 9:09 AM) Protime (PT) [11.5-14.0 sec] 13.4 sec (10/21/21 9:09 AM) PTT [22.3-34.4 sec] 34.6 sec *H* (10/21/21 9:09 AM) Neutro % [45.0-80.0 %] 58.9 % (10/21/21 9:09 AM) Person % [0.0-12.0 %] 7.1 % (10/21/21 9:09 AM) Eos % [0.0-7.0 %] 2.6 % (10/21/21 9:09 AM) Baso % [0.0-2.0 %] 0.4 % (10/21/21 9:09 AM) Nucleated RBCs [0-0 %] 0 % (10/21/21 9:09 AM) AST [14-36 U/L] 22 U/L (10/21/21 9:09 AM) Bilirubin, Total [0.2-1.3 mg/dL] 0.5 mg/ dL (10/21/21 9:09 AM) Creatinine [0.5-1.0 mg/dL] 0.9 mg/dL (10/21/21 9:09 AM) Hemoglobin [12.0-18.0 g/dL] 11.5 g/dL *L* (10/21/21 9:09 AM) eGFR(4vMDRD) [>=60 mL/min/1.73m2] >60 mL /min/1.73m2 (10/21/21 9:09 AM) eCrCl(C-Gault) 0.9 mL/min/kg (10/21/21 9:09 AM) Immature Gran % [0-0 %] Imm Grans % (10/21/21 9:09 AM) Differential Type Automated (10/21/21 9:09 AM) A/G Ratio [1-2] 1 (10/21/21 9:09 AM) Globulin [2-4 g/dL] 5 g/dL *H* (10/21/21 9:09 AM) ABO/Rh A POS *Unknown* (10/21/21 9:09 AM) Antibody Screen Negative (10/21/21 9:09 AM) Anion Gap [7-16 mmol/L] 7 mmol/L (10/21/21 9:09 AM) ALT [<=35 U/L] 13 U/L (10/21/21 9:09 AM) Radiology Reports * Exam Date Time Procedure Performing Provider Status 10/21/21 9:38 AM CHEST 2 VIEWS Blanka Najera [facility] Coord[facility] ; Auth (Verified) Notes: (CHEST 2 VIEWS) Reason For Exam: PRE OP CHEST 2 VIEWS EXAM: Chest 2 view DATE: 10/21/2021 09:38 History: PRE OP Comparison: None. FINDINGS: Devices and hardware: Right jugular Port-A-Cath in place, tip at cavoatrial junction. Lower cervical fusion hardware. Lungs: Clear. Pleura: Normal. Heart size and vasculature: Heart size normal. Aortic atherosclerotic calcification. Mediastinum: No widening. Musculoskeletal: No acute findings. IMPRESSION: Right jugular Port-A-Cath tip at cavoatrial junction level. Aortic atherosclerosis. This report has been generated using [email or web address] voice recognition software. It has not been edited for content by a professional procurement buyer/make up editor. Dictating Physician: Braulio Ibarra MD Releasing Physician: Braulio Ibarra MD Signature Electronically Authorized Authorized Date/Time: 21-OCT-2021 09:47 am
--- OUTSIDE RECORDS SUMMARY | 2024-11-16 23:00 | XMS_ITS | Continuity of Care Document ---
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 Name Role Phone Bryant Olivares Primary Care Physician Encounter [facility] Financial Number [id number] Date(s): 02/16/22 - 02/19/[address] [address] Discharge Disposition: Home or Self Care Attending Physician: Norma Han MD Admitting Physician: Norma Han MD Referring Physician: Bryant Olivares MD Allergies, Adverse Reactions, Alerts Substance Reaction Severity Status Latex Burning of skin Active Nickel Rash Active erythromycin Angioedema Active penicillin Rash Active lisinopril Anaphylaxis Active Assessment and Plan Extracted from: Title:discharge sum mmp Author:Alan Thompson MD Date:02/19/22 Discharge Summary Reason for Hospitalization: Left knee osteoarthritis Acute blood loss anemia Postoperative hypotension History of DVT. Hospital Course\Significant Findings: Patient was admitted after elective left total knee replacement Postoperatively she had low blood pressure and her blood pressure medications were placed on hold Her hemoglobin was followed seriously and eventually started to go up Patient did not need blood transfusion She was discharged home improved and stable clinical condition. Condition on Discharge: Improved. Disposition: Home. Procedures Performed/Treatment Rendered: Left total knee replacement. Discharge Plan from Discharge Orders: No qualifying data available.. Discharge Medications: Discharge Medications Active Medications Accu-Chek Larisa Plus (DME): See Instructions, 1 gtts to bilateral eye daily am, 1 each, Refills: acetaminophen-HYDROcodone: 1 tablet(s), Oral, [id number], PRN: pain, moderate, 30 tablet(s), 0 Refill(s), Refills: 0 apixaban: 2.5 mg, 1 tablet(s), Oral, bid, 60 tablet(s), 0 Refill(s), Refills: 0 pantoprazole: 20 mg, 1 tablet(s), Oral, daily before breakfast, 30 tablet(s), 0 Refill(s), Refills: 0 . Diet on Discharge: Regular diet. Plan for Followup Care: Follow-up with orthopedic surgeon. Functional Status 02/19/22 OT Transfer Device Wheeled walker Functional Mobility Sit to/from Stand St andby assist OT Weight Bearing Status Full Weight Sarah ring 02/19/22 Bed Mobility Supine to/from Sit Standby assist Transfer Sit to/from Stand Standby mango t Ambulation Level Standby assistance Ambulation Distance 120 Ambulation Device Utilized Wheeled walke r Weight bearing status Weight Bearing as Tolerated 02/19/22 Activity Assistance Minimum assistance 02/18/22 ADLs Minimal assistance 02/18/22 Functional Mobility Supine to/from Sit S tandby assist 1 Functional Mobility Bed to Chair/BSC Sta ndby assist Functional Mobility Toilet Transfer Ang dby assist Functional Ambulation to Bathroom Standb y assist 02/18/22 Ambulation Quality Up and down platform step with walker SBA. 02/17/22 Living Environment OT Single level home Home Assist Independent Devices/Equipment Bedside commode, Shower chair, Walk-In shower Prior Bed Mobility Level Independent Prior Transfer Level Independent Prior Home Ambulation Level Independent Prior Community Ambulation Level Indepen dent Prior Stair Ambulation Level Independent Prior Car Transfer Level Independent Prior Toilet Transfer Level Independent Prior Upper Extremity Bathing Level Inde pendent Prior Lower Extremity Bathing Level Inde pendent Prior Upper Extremity Dressing Level Ind ependent Prior Lower Extremity Dressing Level Ind ependent Prior Grooming Level Independent Toileting Assist Modified independent 02/17/22 Number of Stairs Outside 1 1Result Comment: Flex and mend Medications acetaminophen-HYDROcodone 325 mg-5 mg oral tablet 1 tablet(s), Oral, [id number], PRN, 30 tablet(s), Tablet(s), 0, 0, pain, moderate, 03/04/2022 0958, Route to Pharmacy Electronically, [id number], [id number], 165, cm, 02/16/2022 1110, Height, 81, kg, 02/16/2022 111... Start Date: 02/18/22 Stop Date: 03/04/22 Status: Ordered CYCLOSPORINE 0.05% EYE EMULS See Instructions, 1 [...] EC, 0 Start Date: 10/20/21 Status: Ordered Mental Status 02/19/22 Orientation_ND Oriented x4 02/18/22 Hearing Impairment None Vision Impairment None 02/17/22 Orientation Oriented x 4 Procedures Procedure Date Related Diagnosis Body Site Status cervical fusion Completed Hysterectomy Completed left TKA Completed lumbar fusion Completed potacath insertion Comple abdi Revision 1 Completed 1Left knee revision Results Laboratory List Name Date Urinalysis & Microscopic 02/17/22 CBC without Differential 02/17/22 CBC without Differential 02/16/22 Comprehensive Metabolic Profile (CMP) Magnesium Level 02/16/22 Troponin-I 02/16/22 POC Glucose (ACI) 02/16/22 ABO and Rh Type 02/16/22 Antibody Screen 02/16/22 Most recent to oldest [Reference Range]: 1 2 Albumin [3.5-5.0 g/dL] 3.2 g/dL *L* (02/16/22 11:57 PM) Alk Phos [38-126 U/L] 105 U/L (02/16/22 11:57 PM) BUN [7-17 mg/dL] 18 mg/dL *H* (02/16/22 11:57 PM) Calcium [8.4-10.2 mg/dL] 8.1 mg/dL *L* (02/16/22 11:57 PM) Chloride [98-107 mmol/L] 103 mmol/L (02/16/22 11:57 PM) CO2 [22-30 mmol/L] 27 mmol/L (02/16/22 11:57 PM) Glucose [74-106 mg/dL] 126 mg/dL *H* (02/16/22 11:57 PM) Magnesium [1.6-2.3 mg/dL] 1.5 mg/dL *L* (02/16/22 11:57 PM) Potassium [3.5-4.9 mmol/L] 3.5 mmol/L (02/16/22 11:57 PM) Sodium [137-145 mmol/L] 136 mmol/L *L* (02/16/22 11:57 PM) Protein, Total [6.5-8.6 g/dL] 7.2 g/dL (02/16/22 11:57 PM) Troponin I <0.01 ng/mL (02/16/22 11:57 PM) Hematocrit [36.0-54.0 %] 32.2 % *L* (02/17/22 3:42 PM) 28.6 % *L* (02/16/22 11:57 PM) MCHC [32-37 g/dL] 32 g/dL (02/17/22 3:42 PM) 34 g/dL (02/16/22 11:57 PM) MCH [28.0-34.0 pg] 28.6 pg (02/17/22 3:42 PM) 28.8 pg (02/16/22 11:57 PM) MCV [80.0-100.0 fL] 89.3 fL (02/17/22 3:42 PM) 85.7 fL (02/16/22 11:57 PM) MPV [0.0-9.0 fL] 7.4 fL (02/17/22 3:42 PM) 7.6 fL (02/16/22 11:57 PM) Platelet [150-440 x10E3/uL] 194 x10E3/uL (02/17/22 3:42 PM) 261 x10E3/uL (02/16/22 11:57 PM) RBC [4.00-6.00 x10E6/uL] 3.61 x10E6/uL *L* (02/17/22 3:42 PM) 3.34 x10E6/uL *L* (02/16/22 11:57 PM) RDW [11.5-16.0 %] 19.4 % *H* (02/17/22 3:42 PM) 19.0 % *H* (02/16/22 11:57 PM) WBC [4.0-11.0 x10E3/uL] 13.6 x10E3/uL *H* (02/17/22 3:42 PM) 20.8 x10E3/uL *H* (02/16/22 11:57 PM) UA Blood [Negative] Negative (02/17/22 5:07 PM) UA WBC [<3 /hpf] <3 /hpf (02/17/22 5:07 PM) AST [14-36 U/L] 23 U/L (02/16/22 11:57 PM) Bilirubin, Total [0.2-1.3 mg/dL] 0.8 mg/ dL (02/16/22 11:57 PM) Creatinine [0.5-1.0 mg/dL] 0.7 mg/dL (02/16/22 11:57 PM) Hemoglobin [12.0-18.0 g/dL] 10.3 g/dL *L* (02/17/22 3:42 PM) 9.6 g/dL *L* (02/16/22 11:57 PM) eGFR(4vMDRD) [>=60 mL/min/1.73m2] >60 mL /min/1.73m2 (02/16/22 11:57 PM) eCrCl(C-Gault) 1.2 mL/min/kg (02/16/22 11:57 PM) UA Bilirubin [Negative] Negative (02/17/22 5:07 PM) UA Clarity [Clear] Clear (02/17/22 5:07 PM) UA Color Yellow (02/17/22 5:07 PM) UA Glucose (Qual) [Negative] Negative (02/17/22 5:07 PM) UA Ketones [Negative] Negative (02/17/22 5:07 PM) UA Leukocyte Esterase [Negative] Negativ e (02/17/22 5:07 PM) UA Nitrite [Negative] Negative (02/17/22 5:07 PM) UA Specific [place] [1.005-1.030] >=1.03 0 (02/17/22 5:07 PM) UA pH [5.0-8.0] 6.0 (02/17/22 5:07 PM) UA Protein (Qual) [Negative] Negative (02/17/22 5:07 PM) UA Urobilinogen 0.2 *(A)* (02/17/22 5:07 PM) A/G Ratio [1-2] 1 (02/16/22 11:57 PM) Globulin [2-4 g/dL] 4 g/dL (02/16/22 11:57 PM) ABO/Rh A POS *Unknown* (02/16/22 10:33 AM) Antibody Screen Negative (02/16/22 10:33 AM) Anion Gap [7-16 mmol/L] 6 mmol/L *L* (02/16/22 11:57 PM) ALT [<=35 U/L] 17 U/L (02/16/22 11:57 PM) POC Glucose (ACI) [70-100 mg/dL] 137 mg/ dL *H* (02/16/22 11:21 PM) Radiology Reports * Exam Date Time Procedure Performing Provider Status 02/16/22 4:25 PM KNEE 2 VIEW AP AND L AT LEFT RodneyTj khannaaa [employer]; Auth (Verified) Notes: (KNEE 2 VIEW AP AND LAT LEFT) Reason For Exam: Immediate Post-Op KNEE 2 VIEW AP AND LAT LEFT EXAM: KNEE 2 VIEW AP AND LAT LEFT, DATE: 02/16/2022 16:25 CLINICAL DATA: Immediate Post-Op COMPARISON: None FINDINGS: Frontal and lateral views of the left knee demonstrate revision type tibiofemoral arthroplasty. A tibiofemoral prosthesis with long femoral and tibial stem components is properly positioned. No acute fracture. Anterior skin alvarez with diffuse soft tissue swelling and a suprapatellar surgical drain are observed. IMPRESSION: Revision of tibiofemoral arthroplasty with post surgical changes. This report has been generated using My [employer] voice recognition software. It has not been edited for content by a professional front desk/primer expeditor and drier. Dictating Physician: Wilfred Fisher M.D. Releasing Physician: Wilfred Fisher M.D. Signature Electronically Authorized Authorized Date/Time: 16-FEB-2022 04:38 pm Vital Signs Most recent to oldest [Reference Range]: 1 2 3 Temperature Axillary [35.8-36.7 DegC] 37.0 DegC *H* (02/16/22 3:50 PM) Temperature Oral [35.8-37.3 DegC] 36.7 DegC (02/19/22 7:54 AM) 36.7 DegC (02/19/22 4:53 AM) 37.0 DegC (02/19/22 12:12 AM) Temperature Tympanic [35.8-37.3 DegC] 36.4 DegC (02/16/22 11:10 AM) Peripheral Pulse Rate [60-100 bpm] 83 bpm (02/19/22 7:54 AM) 83 bpm (02/19/22 4:53 AM) 91 bpm (02/19/22 12:12 AM) Respiratory Rate [14-22 br/min] 18 br/min (02/19/22 7:54 AM) 18 br/min (02/19/22 4:53 AM) 18 br/min (02/19/22 12:12 AM) Blood Pressure [89-139/60-90 mm Hg] 116/65mm Hg (02/19/22 7:54 AM) 106/55mm Hg (02/19/22 4:53 AM) 104/51mm Hg (02/19/22 12:12 AM) Oxygen Therapy Room air (02/19/22 7:54 AM) Room air (02/19/22 4:53 AM) Room air (02/19/22 12:12 AM) Oxygen Flow Rate 3 L/min (02/16/22 4:51 PM) 3 L/min (02/16/22 4:15 PM) Height 165 cm (02/16/22 11:10 AM) 165 cm (02/16/22 11:10 AM) 165 cm (02/16/22 10:52 AM) Weight 81 kg (02/16/22 11:10 AM) 81 kg (02/16/22 11:10 AM) 81 kg (02/16/22 10:52 AM) Social History Social History Type Response [...] Safety Implantable Status Assigning Authority Unknown Unknown [id number] Unknown 05/18/31 Unknown Unknown Active Unknown Unknown Unknown [id number] Unknown 11/29/31 Unknown Unknown Active Unknown Procedure Provider Procedure Date Device Type Site Knee Total Arthroplasty Unknown 02/16/22 Non Biologic al Unknown Device Identifier Serial Number Lot or Batch Number Manufacturing Date Expiration Date Distinct Identification Code MRI Safety Implantable Status Assigning Authority Unknown Unknown [id number] Unknown 01/18/27 Unknown Unknown Active Unknown Procedure Provider Procedure Date Device Type Site Knee Total Arthroplasty Unknown 02/16/22 Unknown U nknown Device Identifier Serial Number Lot or Batch Number Manufacturing Date Expiration Date Distinct Identification Code MRI Safety Implantable Status Assigning Authority Unknown Unknown [id number] Unknown 04/19/23 Unknown Unknown Active Unknown Procedure Provider Procedure Date Device Type Site Knee Total Arthroplasty Unknown 02/16/22 Unknown U nknown Device Identifier Serial Number Lot or Batch Number Manufacturing Date Expiration Date Distinct Identification Code MRI Safety Implantable Status Assigning Authority Unknown Unknown [id number] Unknown 12/27/30 Unknown Unknown Active Unknown Unknown Unknown [id number] Unknown 12/01/31 Unknown Unknown Active Unknown Procedure Provider Procedure Date Device Type Site Knee Total Arthroplasty Unknown 02/16/22 Non Biologic al Unknown Device Identifier Serial Number Lot or Batch Number Manufacturing Date Expiration Date Distinct Identification Code MRI Safety Implantable Status Assigning Authority Unknown Unknown [id number] Unknown 07/20/24 Unknown Unknown Active Unknown [...] Unknown 12/22/20 Unknown Unknown Active Unkn own Hospital Discharge Instructions Patient Education 02/18/2022 11:00:09 Total Knee Replacement, Discharge Instructions (LANDR) Discharge Instructions for Total Knee Replacement You have had knee replacement surgery. The knee joint forms??where the thighbone, shinbone, and kneecap meet. The knee joint is supported by muscles and ligaments, and is lined with a cushioning called cartilage. Over time, cartilage wears away. This can make the knee feel stiff and painful. Your bush rgeon replaced your painful joint with an artificial joint to relieve pain and restore movement. Here are some instructions to follow once at home. Home care * May shower tomorrow. No bathes or submerging in water.Sit on a shower stool or chair when you shower to keep from falling. ??? Take all medicine as directed by your surgeon. Sitting and sleeping ??? Sit in chairs with arms. The arms make it easier for you to stand up or sit down. ??? Don???t sit for more than 30 to 45 minutes at one time. ??? Nap if you are tired, but don???t stay in bed all day. ??? Sleep with a pillow under your ankle, not your knee. Be sure to change the position of your legduring the night. Moving safely ??? The jhaveri to successful recovery is movement??with walking and exercising your knee as directed by your doctor. You should be able to start moving your leg shortly after surgery as directed by yoursurgeon. ??? Walk up and down stairs with support. Try one step at a time. Use the railing if possible. ??? Don???t drive until your doctor says it???s OK. Most people can start driving about??6 weeks after surgery. Don???t drive while you are taking opioid pain medicine. Other precautions ??? Don't soak your knee in water??until your surgeon says it???s OK. This means no hot tubs, bathtubs, or swimming pools. ??? Wear the support stockings you were given in the hospital, as instructed by your surgeon. Thesemay be needed for 4 to 6 weeks after surgery. If needed, you can place a bandage over the incision to prevent irritation from clothing or support stockings. ??? Arrange your household to keep the items you need handy. Keep everything else out of the way. Remove items that may cause you to fall, such as throw rugs and electrical cords. ??? Use nonslip bath mats, grab bars, an elevated toilet seat, and a shower chair in your bathroom. ??? Until your balance, flexibility, and strength improve, use a cane, crutches, a walker, handrails, or someone to help you. ??? Keep your hands free by using a backpack, bita pack, apron, or pockets to carry things. ??? Prevent infection. Ask your doctor for instructions if you haven???t already received them. Anyinfection will need to be treated right away. Call your doctor right away if you think you might have an infection. ??? Tell your dentist that you have an artificial joint. Take antibiotics as prescribed before any dental work. ??? Tell all your healthcare providers about your artificial joint before any medical procedure. ??? Stay at a healthy weight. Get help to lose any extra pounds (kilograms). Added body weight putsstress on the knee. ??? Take any medicine you may have been given after surgery. This may include blood-thinning medicine to prevent blood clots or antibiotics to prevent infection. Follow-up care Follow up with your healthcare provider, or as advised. If you have alvarez or stitches to close your incision, follow your surgeon's instructions on when to return to have them removed, usually about 2 to 3 weeks after surgery. Call 911 Call 911 right away??if you have: ??? Chest pain ??? Shortness of breath ??? Any pain or tenderness in your calf When to call your healthcare provider Call your healthcare provider right away if you have: ??? Fever of 100.4??F (38??C) or higher, or as directed by your healthcare provider ??? Shaking chills ??? Stiffness, or inability to move the knee ??? Increased swelling in your leg ??? Increased redness, tenderness, or swelling in or around the knee incision ??? Drainage from the knee incision ??? Increased knee pain ?? [employer]. All rights reserved. This information is not intended as a substitute for professional medical care. Always follow your healthcare professional's instructions. 02/18/2022 11:00:09 aquacel dressing (Custom) AQUACEL DRESSING -Skin friendly hydrocolloid technology that flexes with the skin - Patented hydrofiber technology absorbs and locks in fluid, including harmful bacteria - Dressing waterproof, and can be worn in shower - Your dressing can be left in place for up to 7 days - Dressing may need to be changed sooner depending on the amount of drainage it absorbs REMOVAL - To remove dressing, press down on the skin with one hand and carefully left an edge of the dressing with your other hand. Stretch the dressing to break the adhesice seal and remove CALL YOUR PHYSICIAN IF - There is a large amount of fluid coming from your incision - you experience any unusual pain or ordor Note * Wilfred Fisher M.D.: VERIFY, VERIFY, PERFORM Event Display: Interpretation: Authored Date: [id number] EXAM: KNEE 2 VIEW AP AND LAT LEFT, DATE: 02/16/2022 16:25 CLINICAL DATA: Immediate Post-Op COMPARISON: None FINDINGS: Frontal and lateral views of the left knee demonstrate revision type tibiofemoral arthroplasty. A tibiofemoral prosthesis with long femoral and tibial stem components is properly positioned. No acute fracture. Anterior skin alvarez with diffuse soft tissue swelling and a suprapatellar surgical drain are observed. IMPRESSION: Revision of tibiofemoral arthroplasty with post surgical changes. This report has been generated using [employer] voice recognition software. It has not been edited for content by a professional front desk/primer expeditor and drier. Dictating Physician: Wilfred Fisher M.D. Releasing Physician: Wilfred Fisher M.D. Signature Electronically Authorized Authorized Date/Time: 16-FEB-2022 04:38 pm Care Team Personnel Name: Bryant Olivares MD Address: [address] [place] [address]
--- OUTSIDE RECORDS SUMMARY | 2024-11-16 23:00 | XMS_ITS | Continuity of Care Document ---
Author Organization [facility] Address [address] [place] [id number] Care Team Providers Care Ultrasound Technician Name Role Phone Bryant Olivares Primary Care Physician Encounter [facility] Financial Number [id number] Date(s): 10/27/21 - 10/30/[address] [id number]- Discharge Disposition: Home w/Home Health Care Attending Physician: Norma Han MD Admitting Physician: Norma Han MD Referring Physician: Bryant Olivaers MD Allergies, Adverse Reactions, Alerts Substance Reaction Severity Status Latex Burning of skin Active lisinopril Anaphylaxis Active penicillin Rash Active Functional Status 10/30/21 OT Transfer Device Wheeled walker Functional Mobility Sit to/from Stand St andby assist OT Weight Bearing Status Full Weight Sarah ring 10/30/21 Bed Mobility Supine to/from Sit Standby assist Transfer Sit to/from Stand Standby mango t Ambulation Level Standby assistance Ambulation Distance 150 Ambulation Device Utilized Wheeled walke r Ambulation Quality step to gait, cues t o walk in the center of the walker, slightly unsteady when not focusing. Weight bearing status Full weight bearin g 10/30/21 Activity Assistance Independent 10/29/21 Number of Stairs 1 1 10/28/21 Lives In Single level home Living Situation Home independently, Home with family care Number of Stairs Outside 1 Outside Stairs Rail None 10/28/21 Grooming Assist SBA 2 Toileting Assist SBA Functional Mobility Supine to/from Sit M inimal assistance Functional Mobility Toilet Transfer Mode rate assistance Functional Ambulation to Bathroom Minima l assistance 10/28/21 Living Environment OT Single level home Home Assist Independent Devices/Equipment Wheeled walker Number of Stairs Inside 0 Prior Bed Mobility Level Independent Prior Transfer [...] Level Ind ependent Prior Grooming Level Independent 10/27/21 ADLs Minimal assistance 1Result Comment: with walker backward 2Result Comment: at sink Medications Dilt-XR 240 mg/24 hours oral capsule, [...] CR, 0 Start Date: 10/20/21 Status: Ordered [place] 5 mg-325 mg oral tablet 1 tablet(s), Oral, [id number], PRN, 3 day(s), 18 tablet(s), Tablet(s), 0, 0, pain, 11/01/2021 1257, Route to Pharmacy Electronically, [id number], [id number], 165, cm, 10/27/2021 1942, Height, 110.3, kg, 10/27/2021... Start Date: 10/29/21 Stop Date: 11/01/21 Status: Ordered Otezla Starter Pack oral tablet Oral, daily, 0 Start Date: 10/20/21 Status: Ordered pantoprazole 20 mg oral delayed release tablet 20 mg, 1 tablet(s), Oral, daily before breakfast, 30 tablet(s), Tab EC, 0 Start Date: 10/20/21 Status: Ordered Tremfya 100 mg/mL subcutaneous solution 100 mg, SubQ, [id number], 0 Start Date: 10/20/21 Status: Ordered Mental Status 10/30/21 Orientation_ND Oriented x4 Hearing Impairment None Vision Impairment None 10/28/21 Orientation Oriented x 4 Procedures Procedure Date Related Diagnosis Body Site Status cervical fusion Completed Hysterectomy Completed left TKA Completed lumbar fusion Completed potacath insertion Comple abdi Results Laboratory List Name Date Vancomycin Level Trough 10/30/21 CBC with Differential 10/29/21 Comprehensive Metabolic Profile (CMP) Differential, Automated 10/29/21 C-Reactive Protein (CRP) 10/28/21 Sedimentation Rate (ESR) 10/28/21 Hemoglobin and Hematocrit 10/28/21 ABO and Rh Type 10/27/21 Antibody Screen 10/27/21 Most recent to oldest [Reference Range]: 1 2 Albumin [3.5-5.0 g/dL] 2.1 g/dL *L* (10/29/21 3:23 AM) Alk Phos [38-126 U/L] 65 U/L (10/29/21 3:23 AM) BUN [7-17 mg/dL] 13 mg/dL (10/29/21 3:23 AM) Calcium [8.4-10.2 mg/dL] 6.1 mg/dL 1 *CRITICAL* (10/29/21 3:23 AM) Chloride [98-107 mmol/L] 112 mmol/L *H* (10/29/21 3:23 AM) CO2 [22-30 mmol/L] 21 mmol/L *L* (10/29/21 3:23 AM) Glucose [74-106 mg/dL] 90 mg/dL (10/29/21 3:23 AM) Potassium [3.5-4.9 mmol/L] 3.0 mmol/L *L* (10/29/21 3:23 AM) Sodium [137-145 mmol/L] 136 mmol/L *L* (10/29/21 3:23 AM) Protein, Total [6.5-8.6 g/dL] 5.3 g/dL *L* (10/29/21 3:23 AM) CRP (Non-Cardiac) [0.0-0.9 mg/dL] 8.2 mg /dL *H* (10/28/21 9:38 AM) Vancomycin, Trough 13.9 ug/mL (10/30/21 10:06 AM) Baso # [0.0-0.2 x10E3/uL] 0.1 x10E3/uL (10/29/21 3:23 AM) Eos # [0.0-0.8 x10E3/uL] 0.3 x10E3/uL (10/29/21 3:23 AM) Hematocrit [36.0-54.0 %] 24.1 % *L* (10/29/21 3:23 AM) 29.0 % *L* (10/28/21 4:40 AM) Lymph % [22.0-55.0 %] 30.4 % (10/29/21 3:23 AM) Lymph # [0.8-2.5 x10E3/uL] 2.2 x10E3/uL (10/29/21 3:23 AM) MCHC [32-37 g/dL] 33 g/dL (10/29/21 3:23 AM) MCH [28.0-34.0 pg] 29.6 pg (10/29/21 3:23 AM) MCV [80.0-100.0 fL] 89.1 fL (10/29/21 3:23 AM) Band[place] # [0.0-1.3 x10E3/uL] 0.7 x10E3/uL (10/29/21 3:23 AM) MPV [0.0-9.0 fL] 7.2 fL (10/29/21 3:23 AM) Neutro # [1.8-8.8 x10E3/uL] 4.0 x10E3/uL (10/29/21 3:23 AM) Platelet [150-440 x10E3/uL] 204 x10E3/uL (10/29/21 3:23 AM) RBC [4.00-6.00 x10E6/uL] 2.70 x10E6/uL *L* (10/29/21 3:23 AM) RDW [11.5-16.0 %] 15.1 % (10/29/21 3:23 AM) Sed Rate [0-30 mm/hr] 94 mm/hr *H* (10/28/21 9:38 AM) WBC [4.0-11.0 x10E3/uL] 7.3 x10E3/uL (10/29/21 3:23 AM) Neutro % [45.0-80.0 %] 54.6 % (10/29/21 3:23 AM) Band[place] % [0.0-12.0 %] 10.2 % (10/29/21 3:23 AM) Eos % [0.0-7.0 %] 4.0 % (10/29/21 3:23 AM) Baso % [0.0-2.0 %] 0.8 % (10/29/21 3:23 AM) Nucleated RBCs [0-0 %] 0 % (10/29/21 3:23 AM) AST [14-36 U/L] 15 U/L (10/29/21 3:23 AM) Bilirubin, Total [0.2-1.3 mg/dL] 0.9 mg/ dL (10/29/21 3:23 AM) Creatinine [0.5-1.0 mg/dL] 0.7 mg/dL (10/29/21 3:23 AM) Hemoglobin [12.0-18.0 g/dL] 8.0 g/dL *L* (10/29/21 3:23 AM) 9.6 g/dL *L* (10/28/21 4:40 AM) eGFR(4vMDRD) [>=60 mL/min/1.73m2] >60 mL /min/1.73m2 (10/29/21 3:23 AM) eCrCl(C-Gault) 1.2 mL/min/kg (10/29/21 3:23 AM) Differential Type Automated (10/29/21 3:23 AM) A/G Ratio [1-2] 1 (10/29/21 3:23 AM) Globulin [2-4 g/dL] 3 g/dL (10/29/21 3:23 AM) ABO/Rh A POS *Unknown* (10/27/21 12:30 PM) Antibody Screen Negative (10/27/21 12:30 PM) Anion Gap [7-16 mmol/L] 3 mmol/L *L* (10/29/21 3:23 AM) ALT [<=35 U/L] 8 U/L (10/29/21 3:23 AM) 1Result Comment: Critical values called to: Pat Wilson RN 4C by XN date/time: 10/29/2021 05:33CST. Results read back.Results repeated and verified. Orders for Microbiology Reports Name Date Blood Culture 10/28/21 Blood Culture 10/28/21 Wound Culture (Kay/Aer) w/ G moreno Stain (Anaerobic/Aerobic Culture w/ Gram Stain) 10/27/21 Microbiology Reports TEST:Blood Culture STATUS:Order in Progress BODY SITE: SOURCE:Blood COLLECTED DATE/TIME:10/28/21 10:05 AM PRELIMINARY REPORT No growth at 2 days. TEST:Blood Culture STATUS:Order in Progress BODY SITE: SOURCE:Blood COLLECTED DATE/TIME:10/28/21 9:38 AM PRELIMINARY REPORT No growth at 2 days. TEST:Wound Culture (Kay/Aer) w/ Gram Stain STATUS:Order in Progress BODY SITE: SOURCE:Abscess COLLECTED DATE/TIME:10/27/21 4:03 PM PRELIMINARY REPORT Status report: No growth to date STAIN REPORT No organisms seen. 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 Date: 10/29/2021 12:12 HISTORY: Need for IV antibiotics PROCEDURE: After informed consent was obtained, the patient's left arm was prepped and draped in usual sterile fashion. The veins of the left upper extremity were assessed with ultrasound. A patent brachial vein was identified. An ultrasound image was saved for documentation purposes. 1% Lidocaine was used for local anesthesia in the upper arm. The brachial vein was accessed under ultrasound guidance and a wire was passed into the superior vena cava. A 5 [place] dual-lumen PICC line was then placed through a tear away sheath. The catheter measures 45 cm in length. The tip of the catheter lies in the superior vena cava. A fluoroscopic image was saved for documentation purposes. The patient tolerated the procedure well and there were no immediate complications. Consent: The patient's understanding that the procedure they had been told would be performed, was the same as planned, was verbally confirmed. The risks, benefits, and alternatives of the procedure were discussed with the patient . Verbal and written consent was obtained. The Risks discussed were: Bleeding and infection. Blood Loss : 0 mL OPINION: Fluoroscopy and ultrasound guided PICC line placement as described above. Fluoroscopy Time: 1.4 minute(s) Dictating Physician: Wilfred Dan MD Releasing Physician: Wilfred Dan MD Signature Electronically Authorized Authorized Date/Time: 29-OCT-2021 04:26 pm * Exam Date Time Procedure Performing Provider Status 10/27/21 5:57 PM KNEE 2 VIEW AP AND LAT LEFT Louise Anderson RT; Auth (Verified) Notes: (KNEE 2 VIEW AP AND LAT LEFT) Reason For Exam: Immediate Post-Op KNEE 2 VIEW AP AND LAT LEFT EXAM: KNEE 2 VIEW AP AND LAT LEFT, DATE: 10/27/2021 17:57 COMPARISON: None. REASON FOR EXAM: Immediate Post-Op FINDINGS: Portable AP and crosstable lateral views of the left knee demonstrate antibiotic spacer devices with a surgical drain midline at the patellofemoral level. There are small caliber intramedullary components in the distal femur and proximal tibia. There is no fracture or subluxation. OPINION: Arthroplasty revision with placement of antibiotic spacer devices. A surgical drain is in position. Dictating Physician: Bernabe Vang MD Releasing Physician: Bernabe Vang MD Signature Electronically Authorized Authorized Date/Time: 27-OCT-2021 06:12 pm Vital Signs Most recent to oldest [Reference Range]: 1 2 3 Temperature Axillary [35.8-36.7 DegC] 36.7 DegC (10/27/21 5:25 PM) Temperature Oral [35.8-37.3 DegC] 36.4 DegC (10/30/21 7:03 AM) 36.6 DegC (10/30/21 3:52 AM) 36.6 DegC (10/29/21 11:34 PM) Temperature Tympanic [35.8-37.3 DegC] 36.4 DegC (10/27/21 12:00 PM) Peripheral Pulse Rate [60-100 bpm] 83 bpm (10/29/21 3:39 PM) 83 bpm (10/29/21 10:39 AM) 83 bpm (10/29/21 7:23 AM) Respiratory Rate [14-22 br/min] 18 br/min (10/30/21 7:03 AM) 18 br/min (10/30/21 3:52 AM) 18 br/min (10/29/21 11:34 PM) Blood Pressure [89-139/60-90 mm Hg] 128/72mm Hg (10/30/21 7:03 AM) 110/67mm Hg (10/30/21 3:52 AM) 112/67mm Hg (10/29/21 11:34 PM) Oxygen Therapy Room air (10/30/21 7:03 AM) Room air (10/30/21 3:52 AM) Room air (10/29/21 11:34 PM) Height 165 cm (10/27/21 7:42 PM) 165 cm (10/27/21 2:04 PM) 165 cm (10/27/21 12:30 PM) Weight 110.3 kg (10/27/21 7:42 PM) 110.3 kg (10/27/21 7:42 PM) 87.8 kg (10/27/21 12:30 PM) Social History Social History Type Response Alcohol Never alcohol user Substance Abuse Never drug user Smoking Status Never smoker;Never; Tobacco Cessation Counseling Requested N/A entered on: 10/27/21 Sex Medical Equipment Implanted Date:10/27/21Target Site:Unknown Description Quantity MRI Company Model CEMENT BONE BIOMET R 1X40 1 Circle Unknown [place]:No Information Assigning Authority: FDA STL-COMPONENT KNEE FEMORAL REMEDY MEDIUM 1 [employer] Unknown [place]:No Information Assigning Authority: FDA STL-COMPONENT KNEE TIBIAL REMEDY MEDIUM 1 [employer] Unknown [place]:No Information Assigning Authority: FDA STL-STEM KNEE EXTENSION ALEX DY 100MM 1 [employer] Unknown CY:No Information Assigning Authority: FDA STL-STEM KNEE EXTENSION ALEX DY 100MM 1 [employer] Unknown CY:No Information Assigning Authority: [facility] Hospital Discharge Instructions Patient Education 10/30/2021 11:10:02 After Knee Replacement: Keeping Your Knee Healthy After Knee Replacement: Keeping Your Knee Healthy You can keep your knee healthy by knowing the right moves and??not doing??the wrong ones. Some activities could harm your artificial knee and may be permanently restricted. Your??healthcare provider??and physical therapist will give??you??specific instructions and advice. Take small steps to move your body. Do???s: ???Place your knee comfortably as you go about daily activities. ???Exercise and walk every day as directed by your healthcare provider. ???Use an ice pack if your knee starts to swell or feel tender. Don???ts: ???Don't twist your knee. Turn your??whole body instead. ???Don't??jump or do any impact activity. It could loosen your new knee joint. ???Don't??force movements, such as bending your knee too far. ???Don't??put a pillow behind your knee when you are resting. This may keep you from straightening it fully.?? Follow-up care Your orthopedic surgeon??will schedule follow-up exams to make sure that your knee is healing the right way.??Use this time to ask any questions you have about your recovery or activities. ?? [id number] [employer]. All rights reserved. This information is not intended as a substitute for professional medical care. Always follow your healthcare professional's instructions. 10/30/2021 11:10:02 After Knee Replacement: The First Month After Knee Replacement: The First Month You???ll apply the same movement skills you learned in the hospital or rehab center to your exercise program at home. You may also keep meeting with your physical??therapist. Following your exercise program brings big rewards. With your knee in shape, you???ll walk more easily and??get back??to an active life sooner. Maintaining your exercise program Exercising is the only way to??get back??your strength and range of motion. With continued exercise, you may gain even more strength and range of motion than you had before surgery. That???s because before surgery, pain and stiffness may have limited your movement. So make exercise part of your daily routine.??Keep meeting with your physical therapist as directed. He or she may add riding a stationary bike, swimming, or other new exercises to your program. Walking in stride Walking helps build a more normal, comfortable stride. It also keeps you in shape and helps preventblood clots.??Start by taking three or four short walks every day.??Over time,??increase how far, how long, and how many times a day you walk. After your walk, lie down, elevate your knee, and ice itto??ease swelling. Your??healthcare provider??or physical therapist will??tell you when and where to use your walker, crutches, or cane. He or she will also let you know when you can stop using them. ?? [id number] [employer]. All rights reserved. This information is not intended as a substitute for professional medical care. Always follow your healthcare professional's instructions. 10/29/2021 18:36:43 aquacel dressing (Custom) AQUACEL DRESSING -Skin friendly [...] you experience any unusual pain or ordor 10/29/2021 18:36:43 Wound Care Wound Care You have a break in the skin. This wound may be because of an injury. Or it may be the result of surgery. Closing the wound helps stop bleeding, protects the wound from infection, and speeds healing.The type of closure that is used depends on the size and location of the wound. Choices include stitches (sutures), strips of surgical tape, skin glue, or job. Home care Your healthcare provider may prescribe medicines??for pain.??Or he or she may suggest an??behl-wwo-nzxbqkr (OTC) pain reliever, such as ibuprofen. If you have chronic kidney disease, talk with your provider??before taking any??OTC medicines. Also talk with your provider if you've??had a stomach ulcer or gastrointestinal bleeding. In certain cases, antibiotics may be prescribed to help prevent infection. If antibiotics are prescribed, take them exactly as directed for as long as directed. Don't stop taking your antibiotics until they are all gone, even if you feel better. General care ???Follow the healthcare provider???s instructions on how to care for the wound. ???Wash your hands with soap and warm water before and after caring for the wound. This helps prevent infection. ???If a bandage was applied, change it once a day or as directed. If at any time the bandage becomes wet or dirty, replace it with a new one. ???Unless told otherwise, avoid soaking the wound in water. Take showers or sponge baths instead oftub baths. Don't scrub or pick at the wound. ???Don't go swimming. ???If you have a bandage and it gets wet, use a clean cloth to gently pat the wound dry. Then replace the bandage with a dry one. ???Don't scratch, rub, or pick at the area. ???Watch for the signs of infection listed below. Any wound can get infected, even if you are taking antibiotics. Seek care right away if you see any possible signs of infection. Care for specific closures ???Stitches.??You may want to clean the wound daily after the first 2 to 3 days. To do this, removethe bandage and gently wash the area with soap and warm water. After cleaning, apply a thin layer of antibiotic ointment if recommended. Then apply a new bandage. Stitches es on the outside of the skin usually need to be removed by your healthcare provider. ???Surgical tape. Keep the area dry. If it gets wet, blot it dry with a towel. Surgical tape closures usually fall off within 7 to 10 days. If they have not fallen off after 10 days, you can remove them yourself. To remove the tape, use mineral oil or petroleum jelly on a cotton ball to gently rub the adhesive. ???Skin glue. You may shower or bathe as usual, but don't use soaps, lotions, or ointments on the wound area. Don't scrub the wound. After bathing, pat the wound dry with a soft towel. Don't apply liquids like peroxide, ointments, or creams to the wound while the strips or film is in place. Don't scratch, rub, or pick at the strips or film. Don't put tape directly over the strips or film. Skin adh esive film will fall off naturally in 5 to 10 days. If it does not peel off in 10 days, gently rub petroleum jelly or an ointment onto the film. ???[place]. Take showers or sponge baths. Don't take tub baths. Don't use lotions on the wound area. The area may be cleaned with soap and water 2 to 3 days after the wound was stapled. Don't scrub the wound. Pat it dry with a clean soft cloth or towel. You can use antibiotic ointment??if your provider tells you to. Job will need to be removed by your healthcare provider in 10 to 14 days. Follow-up care Follow up with your healthcare provider, or??as directed. If you have stitches or job, return for their removal as directed. When to seek medical advice Call your healthcare provider right away if you have signs of infection: ???Fever of 100.4??F (38??C) or higher, or as directed by your healthcare provider ???Increasing pain in the wound ???Increasing redness or swelling ???Pus or bad-smelling drainage from the wound Also call your provider right away if any of these occur: ???Wound bleeds more than a small amount or won???t stop bleeding ???Wound edges come apart ???Numbness or weakness in the wound area that doesn???t go away ?? [id number] [employer]. All rights reserved. This information is not intended as a substitute for professional medical care. Always follow your healthcare professional's instructions. 10/29/2021 18:36:43 Flushing Your PICC Line at Home Flushing Your PICC Line at Home Your peripherally inserted central catheter (PICC) line is used to deliver medicine or feedings. It???s a long, flexible tube (catheter) that goes into your vein, runs into larger veins, and ends up with the tip near where the superior vena cava enters your heart. To care for your PICC line, you will need to flush it. This means you???ll need to clean it with a solution as directed by your healthcare provider. This keeps it from getting clogged or blocked. A clogged or blocked PICC line will need to be taken out and replaced. When to flush your PICC line You???ll need to flush your PICC line as often as directed by your healthcare provider. You may need to flush it after each use. If the PICC line is not in active use, you may need to flush it once aday. Or you may only need to flush it once a week. Talk with your healthcare provider about how often you should do this. What you???ll need ???Flushing solution. This is the liquid that you will send through the PICC line. Your healthcare provider will tell you what kind to use. In most cases, it is saline solution. This is a sterile mixof water and a tiny amount of salt. Your healthcare provider will also tell you how much to use. You may also need to flush with a heparin solution after the saline. Heparin is a medicine that thins the blood. It helps prevent blood from clotting in and around the catheter. ???A syringe. This is the device used to give an injection, or shot. A syringe is used to flush your PICC line with the solution. You will probably use??prefilled syringes. ???Alcohol wipes or rubbing alcohol and cotton balls. You???ll use these to clean some of the toolsused to flush your line. This helps to prevent germs from going into your PICC line. How to flush your PICC line Repeat these steps as often as your healthcare provider has instructed: Step 1. Wash your hands ???Wash your hands well with soap and warm water. ???If you don???t have access to soap and water, use an alcohol-based hand gel. The gel should haveat least 60% alcohol. ???Only touch your PICC line with clean hands, or when wearing clean gloves. This is to protect youfrom infection and to keep the line free from germs. Step 2. Fill the syringe ???Open a new bottle of the flushing solution.??If you???re using a bottle that???s already open, use the alcohol to clean the top of the bottle. ???Remove the cap from the needle or tip of the syringe. Push the plunger of the syringe down all the way. ???Put the needle or tip of the syringe into the flushing solution. ???Pull the syringe plunger out. Stop when you have the right amount of flushing solution in the syringe. Your healthcare provider will tell you how much to use. Step 3. Remove air from the syringe ???Hold the syringe with the tip pointing up. ???Flick or tap the syringe with your finger. This will cause any large air bubbles to rise into the tip. ???Slowly push on the plunger until a tiny drop of flushing solution comes out of the needle or tip. ???Put the cap back on the needle or tip of the syringe. This will keep it germ- free until you use it. Step 4. Inject the flushing solution ???Scrub the top and sides of the port (end of the catheter) with an alcohol wipe for 15 seconds. Scrub using a twisting motion as if juicing an orange. Let it dry completely. Prevent it from touching anything while drying. Don't blow on it. Don't reuse the alcohol wipe. Keep the port from touchinganything until you connect the syringe. If you accidentally touch the port, clean it again. ???Open the clamp, if there is one. ???Take the cap off the needle or tip of the syringe. Insert the needle or tip into the port. ???Push the plunger in slowly and smoothly. Don???t force the plunger. You shouldn???t feel any pressure when you push the fluid into the PICC line. If you do, stop right away. Call your healthcare provider right away. Step 5. Finish flushing ???If there is a clamp, close it just before the syringe is empty. This stops blood from flowing back into the catheter. ???Remove the needle or tip of the??syringe from the port. ???Put the syringe into a special container (sharps container). When to call your healthcare provider Call your healthcare provider right away if you have: ???Fever of 100.4??F (38??C) or higher, or as directed by your healthcare provider ???Chills during or after flushing your line ???Swelling, redness, drainage, or pain around the PICC site ???Bleeding from the PICC site ???Tubing that leaks or is pulling out ???A feeling of new resistance when flushing the PICC line, or can't flush it at all ???Medicine or fluids that do not drain from the bag into your PICC ?? [id number] [employer]. All rights reserved. This information is not intended as a substitute for professional medical care. Always follow your healthcare professional's instructions. 10/29/2021 18:36:43 PICC Line Care PICC Line Care PICC stands for peripherally inserted central catheter. This is a short-term (temporary) tube that is used instead of a regular IV (intravenous) line.?? Reasons for using a PICC line A PICC line may be used because: ???It reduces the discomfort of putting in a new IV every time one is needed. ???Medicine or nutrition needs to be given over a period of weeks or even months. ???A PICC can stay in place longer than an IV, so it reduces needle sticks. ???It reduces damage to small veins, where an IV is normally inserted. ???A PICC may have more than one channel, so different fluids or medicines can be given at the sametime. ???A PICC line allows for home therapy. Your PICC will need some care to keep it clean and working. This care includes: ???Changing the bandage (dressing) ???Flushing the catheter with fluids ???Changing the cap on the end of the catheter A nurse or other healthcare provider will teach you how to do each of these things. Home care The following are general care guidelines that will help you care for your PICC line at home: ???You can use your arm. But avoid any activity that causes mild pain. ???Don't pick at it or pull on the tubing. ???Don???t lift anything heavier than 10 pounds with the arm on the side of the PICC line. ???When you bathe or shower, tape plastic wrap over the site to keep it dry. ???Don't put the PICC site under water. No swimming or hot tubs. If the dressing gets wet, change it right away. ???Always wash your hands with soap and clean, running water before and after touching any part of your PICC. ???Don't allow the tubing to hang freely. Make sure to keep the tubing covered and secured to your arm to prevent the PICC line from being pulled out by accident. The following tips will help you with dressing changes: ???Change the dressing over the site as directed. This is usually once a week. Change it sooner if the dressing gets wet or soiled. Check the dressing daily. ???You or a family member may be able to do the dressing change at home. Or you may be instructed to return to the office or clinic for dressing changes. ???Sterile technique must be used for PICC dressing change. If your dressing is changed at home, besure you or your family member knows sterile dressing technique. Call your healthcare provider for instructions if you need them. Follow-up care Follow up as advised by your healthcare provider.. When to seek medical advice Call your healthcare provider right away if any of these occur: ???Fever of 100.4??F (38??C) or higher ???Drainage from the PICC site ???Swelling or bulging around the PICC site ???Bleeding from the PICC site ???Skin pulls away from the PICC site ???Redness, warmth, or pus at the PICC site ???Tubing breaks, splits, or leaks ???More exposed tubing (tubing seems longer) or the tubing is pulled out completely ???Medicine or fluids don't drain from the bag into your PICC ?? [id number] [employer]. All rights reserved. This information is not intended as a substitute for professional medical care. Always follow your healthcare professional's instructions. 10/29/2021 18:36:43 Knee Immobilizer Knee Immobilizer A knee immobilizer is a type of brace used to provide support and limit movement of the knee. This will make you more comfortable as your injury heals. Home care ???The knee brace should be worn whenever you are out of bed, unless told otherwise. You may wear it in bed while asleep for the first few nights or until the pain starts to go away. Otherwise, you can remove the brace at night to avoid muscle stiffness from lack of joint movement. ???You can open the??[id number]??brace to dress, bathe, and apply ice??or heat??packs as directed. Call 911 Call 911 if you have: ???Shortness of breath ???Chest pain When to seek medical advice Call your healthcare provider right away if any of these occur: ???Worsening pain in the knee ???Weakness, numbness, or tingling in the foot ???Increased swelling, redness or warmth of the??knee joint ?? [id number] [employer] All rights reserved. This information is not intended as a substitute for professional medical care. Always follow your healthcare professional's instructions.
--- OUTSIDE RECORDS SUMMARY | 2024-11-16 23:00 | XMS_ITS | Continuity of Care Document ---
Author Organization [facility] Address [address] [place] [id number] Care Team Providers Care Orthopaedic Doctor Name Role Phone Bryant Olivares Primary Care Physician Encounter [facility] Financial Number [id number] Date(s): 11/16/21 - 11/16/[address] [id number] Encounter Diagnosis Abnormal laboratory test(Discharge Diagnosis) - 11/16/21 Discharge Disposition: Home w/Physician Follow-up Attending Physician: Ignacio Singletary M.D. Referring Physician: Megha Osuna DO Allergies, Adverse Reactions, Alerts Substance Reaction Severity Status Latex Burning of skin Active penicillin Rash Active lisinopril Anaphylaxis Active Medications cefepime See Instructions, 0, Unsure of dose, [...] 100 mg/mL subcutaneous solution 100 mg, SubQ, [id number], 0 Start Date: 10/20/21 Status: Ordered vancomycin 0, Unsure of dose Start Date: 11/16/21 Status: Ordered Procedures Procedure Date Related Diagnosis Body Site Status cervical fusion Completed Hysterectomy Completed left TKA Completed lumbar fusion Completed potacath insertion Comple abdi Revision Completed Results Laboratory List Name Date CBC with Differential 11/16/21 Comprehensive Metabolic Profile (CMP) Differential, Automated 11/16/21 Most recent to oldest [Reference Range]: 1 Albumin [3.5-5.0 g/dL] 3.5 g/dL (11/16/21 8:01 PM) Alk Phos [38-126 U/L] 119 U/L (11/16/21 8:01 PM) BUN [7-17 mg/dL] 20 mg/dL *H* (11/16/21 8:01 PM) Calcium [8.4-10.2 mg/dL] 8.5 mg/dL (11/16/21 8:01 PM) Chloride [98-107 mmol/L] 104 mmol/L (11/16/21 8:01 PM) CO2 [22-30 mmol/L] 28 mmol/L (11/16/21 8:01 PM) Glucose [74-106 mg/dL] 125 mg/dL *H* (11/16/21 8:01 PM) Potassium [3.5-4.9 mmol/L] 3.4 mmol/L *L* (11/16/21 8:01 PM) Sodium [137-145 mmol/L] 139 mmol/L (11/16/21 8:01 PM) Protein, Total [6.5-8.6 g/dL] 8.2 g/dL (11/16/21 8:01 PM) Baso # [0.0-0.2 x10E3/uL] 0.1 x10E3/uL (11/16/21 8:01 PM) Eos # [0.0-0.8 x10E3/uL] 0.6 x10E3/uL (11/16/21 8:01 PM) Hematocrit [36.0-54.0 %] 27.9 % *L* (11/16/21 8:01 PM) Lymph % [22.0-55.0 %] 22.7 % (11/16/21 8:01 PM) Lymph # [0.8-2.5 x10E3/uL] 2.0 x10E3/uL (11/16/21 8:01 PM) MCHC [32-37 g/dL] 33 g/dL (11/16/21 8:01 PM) MCH [28.0-34.0 pg] 29.2 pg (11/16/21 8:01 PM) MCV [80.0-100.0 fL] 88.4 fL (11/16/21 8:01 PM) [place] # [0.0-1.3 x10E3/uL] 0.7 x10E3/uL (11/16/21 8:01 PM) MPV [0.0-9.0 fL] 7.5 fL (11/16/21 8:01 PM) Neutro # [1.8-8.8 x10E3/uL] 5.3 x10E3/uL (11/16/21 8:01 PM) Platelet [150-440 x10E3/uL] 384 x10E3/uL (11/16/21 8:01 PM) RBC [4.00-6.00 x10E6/uL] 3.16 x10E6/uL *L* (11/16/21 8:01 PM) RDW [11.5-16.0 %] 16.0 % (11/16/21 8:01 PM) WBC [4.0-11.0 x10E3/uL] 8.7 x10E3/uL (11/16/21 8:01 PM) Neutro % [45.0-80.0 %] 60.9 % (11/16/21 8:01 PM) [place] % [0.0-12.0 %] 8.2 % (11/16/21 8:01 PM) Eos % [0.0-7.0 %] 7.0 % (11/16/21 8:01 PM) Baso % [0.0-2.0 %] 1.2 % (11/16/21 8:01 PM) Nucleated RBCs [0-0 %] 0 % (11/16/21 8:01 PM) AST [14-36 U/L] 24 U/L (11/16/21 8:01 PM) Bilirubin, Total [0.2-1.3 mg/dL] 0.4 mg/ dL (11/16/21 8:01 PM) Creatinine [0.5-1.0 mg/dL] 1.1 mg/dL *H* (11/16/21 8:01 PM) Hemoglobin [12.0-18.0 g/dL] 9.2 g/dL *L* (11/16/21 8:01 PM) eGFR(4vMDRD) [>=60 mL/min/1.73m2] 49 mL/ min/1.73m2 *L* (11/16/21 8:01 PM) eCrCl(C-Gault) 0.7 mL/min/kg (11/16/21 8:01 PM) Differential Type Automated (11/16/21 8:01 PM) A/G Ratio [1-2] 1 (11/16/21 8:01 PM) Globulin [2-4 g/dL] 5 g/dL *H* (11/16/21 8:01 PM) Anion Gap [7-16 mmol/L] 7 mmol/L (11/16/21 8:01 PM) ALT [<=35 U/L] 13 U/L (11/16/21 8:01 PM) Vital Signs Most recent to oldest [Reference Range]: 1 Peripheral Pulse Rate [60-100 bpm] 76 bp m (11/16/21 7:42 PM) Respiratory Rate [14-22 br/min] 16 br/mi n (11/16/21 7:42 PM) Height 165 cm (11/16/21 7:42 PM) Social History Social History Type Response Alcohol Never alcohol user Substance Abuse Never drug user Smoking Status Never smoker;Never; Tobacco Cessation Counseling Requested N/A entered on: 10/27/21 Sex Medical Equipment Implanted Date:10/27/21Target Site:Unknown Description Quantity MRI Company Model CEMENT BONE BIOMET R 1X40 1 [employer] Unknown CY:No Information Assigning Authority: FDA STL-COMPONENT KNEE FEMORAL REMEDY MEDIUM 1 [employer] Unknown [place]:No Information Assigning Authority: [facility] STL-COMPONENT KNEE TIBIAL REMEDY MEDIUM 1 [employer] Unknown CY:No Information Assigning Authority: FDA STL-STEM KNEE EXTENSION ALEX DY 100MM 1 [employer] Unknown CY:No Information Assigning Authority: FDA STL-STEM KNEE EXTENSION ALEX DY 100MM 1 [employer] Unknown CY:No Information Assigning Authority: [facility] Hospital Discharge Instructions Patient Education 11/16/2021 21:21:37 General Medical DC Instruction (Custom) General Discharge Instruction Your hemoglobin today was found to be 9.2 In the future when drawing a waste from your PICC line they should remove 15 cc of blood before obtaining the lab. Follow-up with your physician as scheduled.
--- OUTSIDE RECORDS SUMMARY | 2024-11-16 23:00 | XMS_ITS | Continuity of Care Document ---
Author Organization [facility] Address [address] [place] [phone] Care Team Providers Care Child Care Sitter Name Role Phone Bryant Olivares Primary Care Physician Encounter [facility] Financial Number [id number] Date(s): 02/10/22 - 02/10/[address] [address] Discharge Disposition: Home or Self Care Attending Physician: Norma Han MD Admitting Physician: Norma Han MD Referring Physician: Bryant Olivares MD Allergies, Adverse Reactions, Alerts Substance Reaction Severity Status erythromycin Angioedema Active Nickel Rash Active penicillin Rash Active lisinopril Anaphylaxis Active Latex Burning of skin Active Assessment and Plan Future Appointments Appointment Date:02/16/2022 01:15:00 PM Scheduled Provider: Location:[facility] Main OR Appointment Type:[facility] Surgery Medications Dilt-XR 240 mg/24 hours oral capsule, extended release 240 mg, 1 capsule(s), Oral, qhs, 30 capsule(s), Cap SR 24 HR, 0 Start Date: 10/20/21 Status: Ordered DilTIAZem Hydrochloride SR 60 mg/12 hours oral capsule, extended release 60 mg, 1 capsule(s), Oral, [id number], 60 capsule(s), Cap SR 12 HR, 0 Start Date: 02/08/22 Status: Ordered Eliquis 2.5 mg oral tablet 2.5 mg, 1 tablet(s), Oral, bid, 60 tablet(s), Tablet(s), 0 Start Date: 10/20/21 Status: Ordered Metoprolol Succinate ER 25 mg oral tablet, extended release 25 mg, 1 tablet(s), Oral, daily, 30 tablet(s), Tablet CR, 0 Start Date: 10/20/21 Status: Ordered pantoprazole 20 mg oral delayed release tablet 20 mg, 1 tablet(s), Oral, daily before breakfast, 30 tablet(s), Tab EC, 0 Start Date: 10/20/21 Status: Ordered Problem List Diagnosis Diagnosis Type Effective Dates Health Status Clinical Service Informant Essential (primary) hypertension 02/10/22 Non-Specified Essential (primary) hypertension 02/10/22 Non-Specified Encounter for other preprocedural examination 02/10/22 Non-Specified Encounter for other preprocedural examination 02/10/22 Non-Specified Infection and inflammatory reaction due to other internal joint prosthesis 02/10/22 Non-Specified Essential (primary) hypertension 02/10/22 Non-Specified skilled nursing (current) use of anticoagulants 02/10/22 Non-Specified Infection and inflammatory reaction due to other internal joint prosthesis 02/10/22 Non-Specified Essential (primary) hypertension 02/10/22 Non-Specified 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 02/10/22 Non-Specified Procedures Procedure Date Related Diagnosis Body Site Status cervical fusion Completed Hysterectomy Completed left TKA Completed lumbar fusion Completed potacath insertion Comple abdi Revision Completed Results Laboratory List Name Date ABO and Rh Type 02/10/22 Antibody Screen 02/10/22 CBC with Differential 02/10/22 Comprehensive Metabolic Profile 02/10/22 Differential, Automated 02/10/22 PT/INR 02/10/22 PTT 02/10/22 Urinalysis w/ Reflex to Microscopic 02/10 Urine Microscopic 02/10/22 Most recent to oldest [Reference Range]: 1 Albumin [3.5-5.0 g/dL] 4.3 g/dL (02/10/22 2:04 PM) Alk Phos [38-126 U/L] 136 U/L *H* (02/10/22 2:04 PM) BUN [7-17 mg/dL] 27 mg/dL *H* (02/10/22 2:04 PM) Calcium [8.4-10.2 mg/dL] 9.3 mg/dL (02/10/22 2:04 PM) Chloride [98-107 mmol/L] 100 mmol/L (02/10/22 2:04 PM) CO2 [22-30 mmol/L] 27 mmol/L (02/10/22 2:04 PM) Glucose [74-106 mg/dL] 123 mg/dL *H* (02/10/22 2:04 PM) Potassium [3.5-4.9 mmol/L] 3.8 mmol/L (02/10/22 2:04 PM) Sodium [137-145 mmol/L] 137 mmol/L (02/10/22 2:04 PM) Protein, Total [6.5-8.6 g/dL] 9.9 g/dL *H* (02/10/22 2:04 PM) Baso # [0.0-0.2 x10E3/uL] 0.0 x10E3/uL (02/10/22 2:04 PM) Eos # [0.0-0.8 x10E3/uL] 0.0 x10E3/uL (02/10/22 2:04 PM) Hematocrit [36.0-54.0 %] 34.8 % *L* (02/10/22 2:04 PM) Lymph % [22.0-55.0 %] 11.2 % *L* (02/10/22 2:04 PM) Lymph # [0.8-2.5 x10E3/uL] 1.5 x10E3/uL (02/10/22 2:04 PM) MCHC [32-37 g/dL] 33 g/dL (02/10/22 2:04 PM) MCH [28.0-34.0 pg] 27.6 pg *L* (02/10/22 2:04 PM) MCV [80.0-100.0 fL] 84.3 fL (02/10/22 2:04 PM) [place] # [0.0-1.3 x10E3/uL] 0.3 x10E3/uL (02/10/22 2:04 PM) MPV [0.0-9.0 fL] 7.1 fL (02/10/22 2:04 PM) Neutro # [1.8-8.8 x10E3/uL] 11.8 x10E3/u L *H* (02/10/22 2:04 PM) Platelet [150-440 x10E3/uL] 452 x10E3/uL *H* (02/10/22 2:04 PM) RBC [4.00-6.00 x10E6/uL] 4.13 x10E6/uL (02/10/22 2:04 PM) RDW [11.5-16.0 %] 17.5 % *H* (02/10/22 2:04 PM) WBC [4.0-11.0 x10E3/uL] 13.6 x10E3/uL *H* (02/10/22 2:04 PM) INR [0.9-1.1] 1.1 (02/10/22 2:04 PM) Protime (PT) [11.5-14.0 sec] 13.8 sec (02/10/22 2:04 PM) PTT [22.3-34.4 sec] 25.7 sec (02/10/22 2:04 PM) Neutro % [45.0-80.0 %] 86.5 % *H* (02/10/22 2:04 PM) [place] % [0.0-12.0 %] 1.9 % (02/10/22 2:04 PM) Eos % [0.0-7.0 %] 0.1 % (02/10/22 2:04 PM) Baso % [0.0-2.0 %] 0.3 % (02/10/22 2:04 PM) Nucleated RBCs [0-0 %] 0 % (02/10/22 2:04 PM) UA Blood [Negative] Negative (02/10/22 1:40 PM) UA WBC [<3 /hpf] 6-10 /hpf *(A)* (02/10/22 1:40 PM) UA RBC 0-2 /hpf (02/10/22 1:40 PM) AST [14-36 U/L] 23 U/L (02/10/22 2:04 PM) Bilirubin, Total [0.2-1.3 mg/dL] 0.4 mg/ dL (02/10/22 2:04 PM) Creatinine [0.5-1.0 mg/dL] 1.0 mg/dL (02/10/22 2:04 PM) Hemoglobin [12.0-18.0 g/dL] 11.4 g/dL *L* (02/10/22 2:04 PM) eGFR(4vMDRD) [>=60 mL/min/1.73m2] 55 mL/ min/1.73m2 *L* (02/10/22 2:04 PM) eCrCl(C-Gault) 0.8 mL/min/kg (02/10/22 2:04 PM) Immature Gran % [0-0 %] Imm Grans % (02/10/22 2:04 PM) Squamous Epithelial Cells Mod /hpf *(A)* (02/10/22 1:40 PM) Amorphous Crystal Many /hpf (02/10/22 1:40 PM) UA Bacteria [Negative /hpf] Many /hpf *(A)* (02/10/22 1:40 PM) UA Bilirubin [Negative] Negative (02/10/22 1:40 PM) UA Clarity [Clear] Clear (02/10/22 1:40 PM) UA Color Yellow (02/10/22 1:40 PM) Differential Type Automated (02/10/22 2:04 PM) UA Glucose (Qual) [Negative] Negative (02/10/22 1:40 PM) UA Ketones [Negative] Trace *(A)* (02/10/22 1:40 PM) UA Leukocyte Esterase [Negative] Trace *(A)* (02/10/22 1:40 PM) UA Nitrite [Negative] Negative (02/10/22 1:40 PM) UA Specific Bow [1.005-1.030] 1.025 (02/10/22 1:40 PM) UA pH [5.0-8.0] 5.5 (02/10/22 1:40 PM) UA Protein (Qual) [Negative] Negative (02/10/22 1:40 PM) UA Urobilinogen 0.2 *(A)* (02/10/22 1:40 PM) A/G Ratio [1-2] 1 (02/10/22 2:04 PM) Globulin [2-4 g/dL] 6 g/dL *H* (02/10/22 2:04 PM) ABO/Rh A POS *Unknown* (02/10/22 2:04 PM) Antibody Screen Negative (02/10/22 2:04 PM) Anion Gap [7-16 mmol/L] 10 mmol/L (02/10/22 2:04 PM) ALT [<=35 U/L] 12 U/L (02/10/22 2:04 PM) Social History Social History Type Response [...] Unknown 12/22/20 Unknown Unknown Active Unkn own Care Team Personnel Name: Bryant Olivares MD Address: [address] [place] [address]
== END 2024-11-09 16:16 | disposition home or self-care (01) ==
PROVIDERS: Emergency Provider Student in an Organized Health Care Education/Training Program
DX: J06.9 Acute upper respiratory infection, unspecified (principal); Z43.1 Encounter for attention to gastrostomy; Z20.822 Contact with and (suspected) exposure to COVID-19; I10 Essential (primary) hypertension; E78.5 Hyperlipidemia, unspecified; D64.9 Anemia, unspecified; M06.9 Rheumatoid arthritis, unspecified; Z86.718 Personal history of other venous thrombosis and embolism; Z90.710 Acquired absence of both cervix and uterus
CPT/HCPCS: 71045; 99283

== ENCOUNTER 2024-12-06 09:32 | Inpatient (IN) | payer MEDICARE, BC, OTHER, SELFPAY ==
[2024-12-06] VITALS (47 sets, daily range): BP systolic 113–163; BP diastolic 68–94; PULSE 77–98; RESP 8–24; TEMP 36.4; O2SAT 94–100
--- NOTE | ~2024-12-06 | XR_ITS ---
EXAMINATION: XR_CERV2-3V_CR DATE: 12/06/2024 13:14 INDICATION: Neck pain. TECHNIQUE: 4 views of cervical spine on 5 radiographs were obtained. COMPARISON: None. FINDINGS: There is kyphosis of cervical spine. There are changes of anterior fusion procedure from C5 to C7 with healed interbody bone graft and anterior plate and screws. Vertebral body heights are nor mal. There is mildly decreased disc height at C2-C3 and C3-C4 and moderately decreased disc height at C4-C5. There is multilevel severe facet joint osteoarthritis. There is mild central canal stenosis a t C6-C7 and C7-T1. There is a left internal jugular port with tip in the inferior margin of the radio graph. IMPRESSION: 1. Moderate cervical spondylosis. 2. Anterior fusion procedure from C5 to C7. Reviewed, dictated and finalized at location A. RIAL HANDLER
--- NOTE | ~2024-12-06 | US_ITS ---
EXAMINATION: US venous doppler LE RT DATE: 12/12/2024 17:17 INDICATION: Swelling TECHNIQUE: Grayscale ultrasound images without and with compression and Doppler ultrasound images of the right lower extremity veins were obtained. COMPARISON: 07/18/2024 FINDINGS: The visualized portions of right common femoral vein, profunda (deep) femoral vein, femoral vein, pop liteal vein, peroneal veins, posterior tibial veins, and greater saphenous vein outflow are patent. IMPRESSION: 1. No deep venous thrombosis. Reviewed, dictated and finalized at location A. R PLANT PUMP OPERATOR SUPERVISOR
--- NOTE | ~2024-12-06 | XR_ITS ---
EXAMINATION: XR chest 1V portable Exam Date/Time: 12/06/2024 22:00 WATER SYSTEMS ENGINEER HISTORY: port placement Comparison: 11/09/2024. RESULT: Lines, tubes, and devices: Left chest implanted port terminating in the right atrium. ACDF hardware. Lungs and pleura: Senescent/emphysematous change, otherwise clear. Cardiomediastinal silhouette: Stable. Other: No acute osseous or upper abdominal finding. IMPRESSION: No acute cardiopulmonary process. Reviewed, dictated and finalized at location K. R SYSTEMS ENGINEER
--- NOTE | ~2024-12-06 | CT_ITS ---
CLINICAL INDICATION: Abdominal pain COMPARISON: 12/08/2024. TECHNIQUE: Multiple contiguous axial images of the abdomen and pelvis were performed following the ad ministration of with 100 mL Omnipaque-350 intravenous contrast The dose-length product (DLP) was 343.65 mGy-cm. Automated exposure control and iterative reconstruction technique were employed. FINDINGS/OBSERVATIONS: Visualized lower thorax: Left basilar atelectasis. The remainder of the lungs are clear. The heart is enlarged, without pericardial effusion. Liver: The liver enhances homogeneously and is not enlarged measuring 16 cm in longitudinal dimension. Gallbladder and biliary system: The gallbladder is surgically absent. Pancreas: The pancreas enhances homogeneously without ductal dilatation. Spleen: The spleen enhances homogeneously and is not enlarged measuring 6 cm in longitudinal dimension. Kidneys: Subcentimeter foci of decreased attenuation within the bilateral kidneys, too small to albert cterize. The remainder of the bilateral kidneys otherwise enhance symmetrically without hydronephrosis or lalito l calculi. Adrenal glands: Unremarkable. Gastrointestinal tract: Diffuse fecal stasis within the entirety of the colon, markedly distending the rectum, consistent wit h fecal impaction. Appendix: The air-filled appendix is of normal caliber (axial series, image 131 through 139). Vasculature: Unremarkable. No aneurysmal dilatation or significant stenosis. Lymph nodes: No pathologically enlarged or morphologically suspicious lymph nodes within the retroperitoneum or at the root of the mesentery. Pelvic structures: The bladder is distended, and otherwise unremarkable. The uterus is surgically absent. Body wall and musculoskeletal: Fixation hardware within the lower lumbar spine, limiting evaluation secondary to streak metallic art ifact. IMPRESSION: Diffuse fecal stasis within the entirety of the colon, markedly distending the rectum, consistent wit h fecal impaction. Reviewed, dictated and finalized at location A. L SALES MANAGER IMPRESSION: Diffuse fecal stasis within the entirety of the colon, markedly distending the rectum, consistent with fecal impaction.
--- NOTE | ~2024-12-06 | XR_ITS ---
EXAMINATION: XR knee RT 3V DATE: 12/06/2024 13:14 INDICATION: Right knee pain TECHNIQUE: Anteroposterior, oblique and crosstable lateral views of the right knee were obtained COMPARISON: None. FINDINGS: No fracture. Mild genu valgus with moderate joint space narrowing the lateral compartment. Additional moderate joint space narrowing in the patellofemoral compartment likely degenerative subarticular cy stlike changes along the cephalad aspect of trochlea. Large right knee joint effusion without evident layering lipohemarthrosis. IMPRESSION: 1. Moderate lateral and patellofemoral compartment osteoarthritis with large knee joint effusion. No evident acute osseous abnormality. Reviewed, dictated and finalized at location B. NTORY MANAGER IMPRESSION: 1. Moderate lateral and patellofemoral compartment osteoarthritis with large kn ee joint effusion. No evident acute osseous abnormality.
--- NOTE | ~2024-12-06 | CT_ITS ---
EXAMINATION: CT abdomen pelvis wo con DATE: 12/08/2024 17:07 INDICATION: decrease blood counts TECHNIQUE: Computed tomography (CT) of the abdomen and pelvis was performed without intravenous contr ast. Automated exposure control and iterative reconstruction technique were employed. The dose-length product was 217.37 mGy-cm. COMPARISON: 07/12/2024. FINDINGS: Exam limited by nonstandard positioning, arm down positioning, and metal artifact from spinal hardwar e. Lower thorax: Aortic valve and coronary artery calcifications. Mild cardiomegaly. Bilateral dependent scar/atelectasis. Decreased blood pool density. Liver: Normal. Biliary/Gallbladder: Gallbladder is absent. No bile duct dilation. Pancreas: No mass or duct dilation. Spleen: Normal. Adrenals:No mass. Kidneys: No suspicious mass, obstructing stone, or hydronephrosis. Multiple simple renal cysts. GI tract: No small or large bowel dilation. Appendix not confidently identified Mesentery/Peritoneum: No ascites, mass, or free air. Mild mesenteric edema. Retroperitoneum: No mass. No acute abdominopelvic process detected. Pelvis: Mild urinary bladder wall thickening in a fully distended urinary bladder. Absent uterus. Cleve ateral ovaries not confidently identified. Soft Tissues: Mild diffuse body wall edema. Bones: No acute osseous finding. Severe degenerative change in the left hip with a moderate hip join t effusion, a chronic finding. Uncomplicated appearing lumbar fusion hardware. IMPRESSION: Decreased blood pool density as can be seen with anemia. Mild urinary bladder wall thickening, correlate with urinalysis. Mild mesenteric and body wall edema. Reviewed, dictated and finalized at location K. ITAL RECRUITER
--- NOTE | ~2024-12-06 | XR_ITS ---
EXAMINATION: XR_KNEE1-2VLT_CR DATE: 12/12/2024 16:49 INDICATION: Left knee pain. TECHNIQUE: 2 views of left knee were obtained. COMPARISON: Left knee radiograph 04/30/2024 FINDINGS: There is a total left knee arthroplasty with patellar resurfacing in near-anatomic alignmen t. There are lucencies around the femoral post. There is slight interval change in positioning of the femoral component with respect to the bone. No acute fracture. There is a small knee joint effusion with loose bodies. IMPRESSION: 1. Total left knee arthroplasty with lucency again seen around the femoral post and slight interval c hange in positioning of the femoral component with respect to the bone, consistent with loosening. 2. Small left knee joint effusion with loose bodies. Reviewed, dictated and finalized at location B. COOLERS INSTALLER IMPRESSION: 1. Total left knee arthroplasty with lucency again seen around the femoral post and slight interval change in positioning of the femoral component with respec t to the bone, consistent with loosening. 2. Small left knee joint effusion with loose bodies.
--- NOTE | 2024-12-06 12:54 | PC.NURSE ---
multiple attempts made to obtain iv access and blood draw on the patient. vascular access team contacted
[2024-12-06] MEDS: MORPHINE SULFATE (*CRX) 2 MG/ML INJ IM (14:59)
[2024-12-06 15:21] LABS: Basophils Absolute Auto 0.1 K/mm3 (0.0-0.1); Basophils Percent Auto 0.9 % (0.2-1.2); Eosinophils Absolute Auto 0.2 K/mm3 (0-0.3); Eosinophils Percent Auto 2.8 % (0-4.4); Hematocrit 25.1 % (37.0-47.0); Hemoglobin 7.5 g/dL (12.0-15.0); Immature Granulocyte Absolute 0.08 K/mm3 (0.00-0.031); Immature Granulocyte Percent A 1.2 % (0-0.5); Lymphocytes Absolute Auto 2.97 K/mm3 (0.9-3.2); Lymphocytes Percent Auto 43.2 % (18.3-44.2); Mean Corpuscular HGB Conc 29.9 g/dl (32-36); Mean Corpuscular Hemoglobin 27.1 pg (26-34); Mean Corpuscular Volume 90.6 fl (80-100); Mean Platelet Volume 8.9 fl (7.4-10.4); Monocytes Absolute Auto 0.5 K/mm3 (0.1-0.6); Monocytes Percent Auto 7.6 % (2.6-8.5); Neutrophils Absolute Auto 3.1 K/mm3 (1.3-6.7); Neutrophils Percent Auto 44.3 % (45.5-73.1); Platelet Count Result 435 k/mm3 (150-375); Red Blood Count 2.77 M/mm3 (4.2-5.4); Red Cell Distribution Width 16.2 % (11.5-14.5); White Blood Count 6.9 K/mm3 (4.5-10.0)
[2024-12-06 15:50] LABS: Anion Gap 6 mmol/L (4-12); Blood Urea Nitrogen 25 mg/dL (7-17); Calcium 8.8 mg/dL (8.4-10.2); Carbon Dioxide 28 mmol/L (22-30); Chloride 100 mmol/L (98-107); Estimated Glomerular Filt Rate > 60; Glucose 87 mg/dL (65-110); Sodium 134 mmol/L (137-145); Uric Acid 6.1 mg/dL (2.5-7.5)
[2024-12-06 16:08] LABS: Erythrocyte Sedimentation Rate > 140 mm/hr (0-20)
[2024-12-06 16:35] LABS: CRP 14.4 mg/dL (<1.0)
--- NOTE | 2024-12-06 16:42 | ED_ITS ---
HPI - Weakness General Chief complaint: Weakness Stated complaint: weakness Time Seen by Provider: 12/06/24 12:02 History of Present Illness HPI Narrative: Patient is a 74-year-old female who presents ER with right knee swelling over last 3 days associated with pain. Reports mild neck pain as well. No fevers or chills or sweats. Denies body aches. Has pain with any type of movement of her right leg. Has history of previous infection in the same knee which is a [place] knee. It was washed out in the past we believe at [facility] by Dr. Wray. Patient has no numbness or tingling of the arms or legs. No focal weakness that she reports. Related Data Home Medications ?Medication ?Instructions ?Recorded ?Confirmed ?Last Taken ?Type polyethylene glycol 3350 17 17 g PO DAILY 07/09/24 07/13/24 Unknown History gram/dose oral powder (Miralax) magnesium 100 mg tablet 100 mg PO DAILY 07/13/24 07/13/24 Unknown History Allergies Allergy/AdvReac Type Severity Reaction Status Date / Time amlodipine Allergy Severe Hives Verified 07/12/24 13:20 banana Allergy Severe throat Verified 07/12/24 13:20 Itching latex Allergy Severe Redness of Verified 07/12/24 13:20 Skin, baker lisinopril Allergy Severe Difficulty Verified 07/12/24 13:20 Breathing Penicillins Allergy Severe Rash Verified 07/12/24 13:20 pseudoephedrine Allergy Severe Difficulty Verified 07/12/24 13:20 Breathing tetracycline Allergy Severe Difficulty Verified 07/12/24 13:20 Breathing tree nut Allergy Severe Other Verified 07/12/24 13:20 dextromethorphan Allergy Intermediate Rash Verified 07/12/24 13:20 prednisone Allergy Unknown Other Verified 07/12/24 13:20 acetaminophen AdvReac Intermediate Nausea and Verified 07/12/24 13:20 Vomiting aspirin AdvReac Intermediate Nausea and Verified 07/12/24 13:20 Vomiting Review of Systems 2 Review of Systems: All systems reviewed & are unremarkable except as noted in HPI and below Constitutional: Constitutional: Reports no additional constitutional complaints Cardiovascular: Cardiovascular: Reports no additional cardiovascular complaints Respiratory: Respiratory: Reports no additional respiratory complaints Gastrointestinal: Gastrointestinal: Reports no additional gastrointestinal complaints Musculoskeletal: Musculoskeletal: Reports no additional musculoskeletal complaints [facility] Past Medical History Medical History (Updated 12/06/24 @ 21:40 by Davonte Negron MD) Blood thinned due to long-term anticoagulant use Occult blood in stools Acute on chronic anemia Hyperlipidemia Hypertension DVT (deep venous thrombosis) Rheumatoid arthritis Surgical History Surgical History (Updated 12/06/24 @ 21:40 by Davonte Negron MD) Port-A-Cath in place Left chest wall H/O right knee surgery H/O: hysterectomy Family History Family History Father , black lung disease No problems noted. Mother , from OJI gangrene. No problems noted. Sibling Acute myocardial infarction Sibling No problems noted. 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 HEAD: Normocephalic, atraumatic. ENT: Mucous membranes moist. NECK: Supple. CHEST: Clear to auscultation. No respiratory distress. HEART: Regular rate and rhythm. Normal peripheral pulses. ABDOMEN: Soft, nontender, nondistended. EXTREMITIES: Large joint effusion of the right knee that is warm to touch and sensitive with light touch. She will occasionally try to move it to has better movement with the left lower extremity where there is no effusion she has had previous replacement. No upper extremity weakness or deformity. SKIN: Warm, dry, no rash. NEURO: Alert and oriented x3. Gross sensation intact of the upper and lower extremities. Clear speech. PSYCH: Normal mood and affect. Course Course Emergency Course: 1644: Patient verbally consented for procedure. Some difficulty getting and joint due to scar tissue but 60 mL of fluid was obtained. 2118: I spoke with Britni Shukla, Dr. Ramirez who is bindery leadperson for Dr. Wray's group. Declines transfer as the physician is not available to manage the knee and also feels this can be managed at our facility as it is a [place] knee and not a prosthetic joint. Discussed with Dr. Bello with orthopedic surgery who accepts the patient. Patient is being started on ceftriaxone 2 g, and vancomycin 1 g. Patient will be kept NPO to go to the OR tomorrow. Patient chronically anemic. Will add a type and screen. 2202: Accepted by Dr. Anders. Vital Signs Vital signs: Vital Signs Temperature 97.6 F 12/06/24 09:33 Pulse Rate 90 12/06/24 09:33 Respiratory Rate 15 12/06/24 09:33 Blood Pressure 136/75 12/06/24 09:33 Pulse Oximetry 98 12/06/24 09:33 Oxygen Delivery Room Air 12/06/24 09:33 Temperature 97.6 F 12/06/24 09:33 Pulse Rate 92 12/06/24 20:45 Respiratory Rate 23 H 12/06/24 20:45 Blood Pressure 155/86 H 12/06/24 20:01 Pulse Oximetry 100 12/06/24 20:45 Oxygen Delivery Room Air 12/06/24 09:33 Procedures Joint Aspiration/Injection Joint Asp./Inject. 1: Joint Aspiration Date: 12/06/24 Joint Aspiration Time: 16:40 Time Out Performed: Yes Side of body: right Joint Aspirated: knee Ultrasound Guidance: No Skin Prep: Chlorhexidine Local Anesthetic: lidocaine 1% and with epi Amount of anesthesia used (mL): 5 Needle Size Used: 18G Fluid Obtained: turbid Total fluid obtained (mL): 60 Patient Tolerated Procedure: well Complications: none Additional Comments: Bandage with abx ointment applied. MDM - Weakness Lab Data 12/06/24 15:15 12/06/24 15:15 Labs: Lab Results 12/06/24 12/06/24 Range/Units 15:15 16:45 WBC 6.9 (4.5-10.0) K/mm3 RBC 2.77 L (4.2-5.4) M/mm3 Hgb 7.5 L (12.0-15.0) g/dL Hct 25.1 L (37.0-47.0) % MCV 90.6 (80-100) fl MCH 27.1 (26-34) pg MCHC 29.9 L (32-36) g/dl RDW 16.2 H (11.5-14.5) % Plt Count 435 H (150-375) k/mm3 MPV 8.9 (7.4-10.4) fl Immature Gran % (Auto) 1.2 H (0-0.5) % Neut % (Auto) 44.3 L (45.5-73.1) % Lymph % (Auto) 43.2 (18.3-44.2) % Smith % (Auto) 7.6 (2.6-8.5) % Eos % (Auto) 2.8 (0-4.4) % Baso % (Auto) 0.9 (0.2-1.2) % Lymph # (Auto) 2.97 (0.9-3.2) K/mm3 Smith # (Auto) 0.5 (0.1-0.6) K/mm3 Eos # (Auto) 0.2 (0-0.3) K/mm3 Baso # (Auto) 0.1 (0.0-0.1) K/mm3 Abs Immat Gran (auto) 0.08 H (0.00-0.031) K/mm3 Absolute Neuts (auto) 3.1 (1.3-6.7) K/mm3 Absolute Nucleated RBC 0.000 (0.0-0.012) K/mm3 Nucleated RBC % 0.0 (0.0-0.2) % ESR > 140 H (0-20) mm/hr Sodium 134 L (137-145) mmol/L Potassium 4.0 (3.4-5.0) mmol/L Chloride 100 (98-107) mmol/L Carbon Dioxide 28 (22-30) mmol/L Anion Gap 6 (4-12) mmol/L BUN 25 H D (7-17) mg/dL Creatinine 0.55 L (0.7-1.0) mg/dL Estim Creat Clear Calc Not Reportable Estimated GFR > 60 (59 - ) Glucose 87 (65-110) mg/dL Uric Acid 6.1 (2.5-7.5) mg/dL Calcium 8.8 (8.4-10.2) mg/dL C-Reactive Protein 14.4 H (<1.0) mg/dL Synovial Source Rt knee syn fluid Synovial Color Brown (Colorless) Synovial Appearance Cloudy A (Clear) Synovial RBC 40948 H (0-0) /uL Synovial Nuc Cells 94211 H (0-200) /uL Synovial Neutrophils 93 H (0-25) % Synovial Lymphocytes 3 % Synovial Monocytes 4 % Synovial Crystals None seen (None Seen) Synovial Glucose Pending Synovial Total Protein Pending Imaging Data Radiologist's impression: ITS Impressions Cervical Spine X-Ray 12/06/24 13:20 IMPRESSION: 1. Moderate cervical spondylosis. 2. Anterior fusion procedure from C5 to C7. Knee X-Ray 12/06/24 13:21 IMPRESSION: 1. Moderate lateral and patellofemoral compartment osteoarthritis with large knee joint effusion. No evident acute osseous abnormality. Discharge Plan Discharge Clinical Impression: Septic joint of right knee joint Patient Disposition: Still a Patient Condition: Stable Patient Language: French Prescriptions: No Action magnesium 100 mg Tablet 100 mg PO DAILY bisacodyl 10 mg Suppository 10 mg RECTAL PRN PRN (Reason: Constipation) Qty: 10 0RF docusate sodium 100 mg Capsule 100 mg PO Q12H PRN (Reason: Constipation) Qty: 30 0RF metoprolol succinate [Toprol XL] 25 mg Tablet Extended Release 24 Hr 25 mg PO QAM Qty: 60 0RF folic acid 1 mg Tablet 1 mg PO DAILY Qty: 30 0RF ferrous sulfate 325 mg (65 mg iron) Tablet,Delayed Release (Dr/Ec) 325 mg PO BIDWM Qty: 60 0RF polyethylene glycol 3350 [Miralax] 17 gram/dose Powder 17 g PO DAILY Follow-up/Referrals: UNKNOWN,DOCTOR [Primary Care Provider] -
[2024-12-06 18:08] LABS: Source Synovial Fluid Rt Knee Syn Fluid
[2024-12-06 18:09] LABS: Appearance Synovial Fluid Cloudy (Clear); Color Synovial Fluid Brown (Colorless)
[2024-12-06 18:10] LABS: Nucleated Cell Synovial Fluid 65315 /uL (0-200)
[2024-12-06 18:11] LABS: Lymphocytes Synovial Fluid 3 %; Monocytes Synovial Fluid 4 %; Neutrophils Synovial Fluid 93 % (0-25); RBC Synovial Fluid 20000 /uL (0-0)
[2024-12-06 18:12] LABS: Crystals Synovial Fluid None Seen (None Seen)
[2024-12-06] MEDS: MORPHINE SULFATE (*CRX) 2 MG/ML INJ IV PUSH (19:16)
--- NOTE | 2024-12-06 21:00 | PC.NURSE ---
phlebotomy at bedside to obtain blood cultures at this time
[2024-12-07] VITALS (14 sets, daily range): BP systolic 102–174; BP diastolic 56–88; PULSE 80–108; RESP 16–22; TEMP 36.2–37.2; O2SAT 97–100; BMI 19.2
--- NOTE | 2024-12-07 00:11 | ADMGEN ---
This patient, Tiesha Stock, was admitted to Medical Room 340-01. Patient/family oriented to hospital policies and general routines including ID bracelet, bed and alarms, visiting hours, pain management, procedures, bathroom and other care routines, personal items, smoking policy, room service/diet, and visiting hours. Information on how to activate the Rapid Response Team has been discussed. Patient/Family are encouraged to report perceived risks to care and to ask questions if they do not understand what they are told or what they should do.
[2024-12-07] MEDS: MORPHINE SULFATE (*CRX) 2 MG/ML INJ IV PUSH (00:21)
[2024-12-07] MEDS: VANCOMYCIN 1,250 MG/NS 250 ML 1,250 MG/250 ML BAG 166.67 MG IVPB (00:26)
--- NOTE | 2024-12-07 01:39 | PC.NURSE ---
Pharmacy notified regarding 1999 ceftriaxone dosing. Patient was not on this floor at that time. Per pharmacy, dosing will be retimed.
--- NOTE | 2024-12-07 01:46 | P.HP_ITS ---
H&P: HPI History of Present Illness Date/Time: 12/07/24 01:46 Chief Complaint: Generalized weakness Narrative: 74-year-old female with a past medical history of septic arthritis of the right knee with prior washout, chronic anemia, rheumatoid arthritis, and DVT who presented to the ER from home due to increased weakness and 3 days of right knee pain and swelling. Source of information comes from past medical records, ER physician report and patient report. The patient although alert orient x4 is not the best historian regarding her medical history. The patient has had 3 weeks of multiple complaints. She reports she has generalized body aches. Her symptoms started with increased pain in both her hands and feet. She got so weak that she could not roll over in bed. She then started having difficulty picking up her right arm and had some increased swelling to her right shoulder. Around that same time she began having pain and muscle spasm in her left trapezius muscles. Around that time his when she was treated with Cipro for a sinus infection. She reported improvement in her nasal congestion and sinus pressure. However despite improvement in her sinus symptoms she then about 10 days ago developed fever of 100.3?. She did notify her home nurse of her fever but they told her to just watch her symptoms and monitor. Her fever continued for about 5-7 days. It was accompanied by worsening joint pains, fatigue and development of right knee swelling. The patient's knee swelling accompanied by sick they forget pain and increased warmth of the right knee. She had had prior incision drainage and washout of the right knee in approximately in November of 2023. She became more concerned when she also developed some discomfort in her left knee. She does report increased swelling of the knee but they exam at the time of my evaluation does not appear all that significant for any marked edema or warmth of the left knee. She has had some chronic weight loss. She reports that she continues to lose weight despite having a good appetite. She reports that she is eating all the time. She had had a G-tube placed in November 2023 following her initial knee surgery which was complicated by seizures and subsequent dysphagia. However she had resolution of her dysphagia. She was admitted to the hospital in June for acute on chronic anemia had a EGD and colonoscopy that was relatively unremarkable. On November 09, 2024 she presented to the ER because her G-tube had fallen out. Decision was made at that time to just leave the feeding tube out and the patient was discharged home from the ER. She reports that she has been having multiple small soft bowel movements today that her non diarrheal. She reports that she still takes her MiraLax and Colace because she does tend to get some harder stools with taking her iron supplement. She reports that she does not tolerate the harder stools so she continues with the stool softeners. She denies any chest pain or shortness of breath. In the ER patient's blood pressures were normotensive. She reports that her blood pressures at home had been low and she had been holding her antihypertensives for about 5 days under the direction of her home nurse due to hypotension. She reports that she was feeling lightheaded when she would stand up or change positions. She did not have any syncopal events. The patient does report some urinary frequency and frequent urinary incontinence. It sounds like the urinary incontinence may be more functional in nature rather than due to urge incontinence or stress incontinence. She denies any dysuria. She does report urine that was darker in color and somewhat orange in color which tends to happen when she is dehydrated. She has a pure wick catheter in place with a small amount of dark jairon urine present is clear in appearance. She reports that she is not on been on any DMARDs for quite some time due to her farm truck driver leaving count. She was assigned to a new farm truck driver that then also left. She did have a follow-up with the the farm truck driver in October was unable to make the appointment. Review of Systems 2 Review of Systems: 12 systems were reviewed with pertinent positives and negatives per HPI. Except as documented in the HPI, all other systems were reviewed and are negative. [facility] Past Medical History Medical History (Updated 12/07/24 @ 08:34 by Lien Anders DO) DVT (deep venous thrombosis) No longer on anticoagulation Chronic blood loss anemia History of seizure (~11/2023) Following surgery for septic arthritis. Osteopenia Moderate protein malnutrition Diastolic dysfunction Echo 04/2024 demonstrated EF of 60 65%, mildly increased left ventricular wall thickness, grade 1 diastolic dysfunction, right ventricular function normal, atrial septum appears aneurysmal, moderate aortic valve calcification, mild mitral valve regurgitation, mild tricuspid valve regurgitation Occult blood in stools Hyperlipidemia Hypertension Rheumatoid arthritis Surgical History Surgical History (Updated 12/07/24 @ 02:10 by Lien Anders DO) History of colonoscopy (07/17/24) Internal hemorrhoids, diverticulosis Normal esophagogastroduodenoscopy (EGD) (07/17/24) PEG (percutaneous endoscopic gastrostomy) status Place at [facility] in January 2024 due to dysphagia, remains in place due to moderate to severe protein calorie malnutrition with approximately 50 lb weight loss since August 2023. History of total left knee replacement Port-A-Cath in place Left chest wall H/O right knee surgery (~11/2023) Washout due to septic arthritis November 2023 H/O: hysterectomy Family History Family History Father , black lung disease No problems noted. Mother , from OJI gangrene. No problems noted. Sibling Acute myocardial infarction Prednisolone adverse reaction Sibling No problems noted. Social History Social History (Updated 12/07/24 @ 08:35 by Lien Anders DO) Social History: Code status: DNR/DNI (per patient request) she states that she does not think that her would agree with this but this is her desire. 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 [employer] Gender identity (if verbalized by the patient): Male Spiritual care concerns: No Meds Home Medications and Allergies Home Medications ?Medication ?Instructions ?Recorded ?Confirmed ?Type ferrous sulfate 325 mg (65 mg 325 mg PO BIDWM #60 tabs 05/04/24 12/07/24 Rx iron) tablet,delayed release folic acid 1 mg tablet 1 mg PO DAILY #30 tabs 05/04/24 12/07/24 Rx polyethylene glycol 3350 17 17 g PO DAILY 07/09/24 12/07/24 History gram/dose oral powder (Miralax) magnesium 100 mg tablet 100 mg PO DAILY 07/13/24 12/07/24 History docusate sodium 100 mg capsule 100 mg PO Q12H PRN Constipation 07/22/24 12/07/24 Rx #30 caps metoprolol succinate 25 mg 25 mg PO QAM #60 tabs 07/22/24 12/07/24 Rx tablet,extended release 24 hr (Toprol XL) tramadol 25 mg tablet 25 mg PO BID PRN pain (scale score 12/07/24 12/07/24 History 4-6) Allergies Allergy/AdvReac Type Severity Reaction Status Date / Time amlodipine Allergy Severe Hives Verified 07/12/24 13:20 banana Allergy Severe throat Verified 07/12/24 13:20 Itching latex Allergy Severe Redness of Verified 07/12/24 13:20 Skin, baker lisinopril Allergy Severe Difficulty Verified 07/12/24 13:20 Breathing Penicillins Allergy Severe Rash Verified 07/12/24 13:20 pseudoephedrine Allergy Severe Difficulty Verified 07/12/24 13:20 Breathing tetracycline Allergy Severe Difficulty Verified 07/12/24 13:20 Breathing tree nut Allergy Severe Other Verified 07/12/24 13:20 dextromethorphan Allergy Intermediate Rash Verified 07/12/24 13:20 prednisone Allergy Unknown Other Verified 07/12/24 13:20 acetaminophen AdvReac Intermediate Nausea and Verified 07/12/24 13:20 Vomiting aspirin AdvReac Intermediate Nausea and Verified 07/12/24 13:20 Vomiting Vital Signs Vital Signs - 24 hr 12/06/24 09:33 12/06/24 12:13 12/06/24 12:15 Temperature 97.6 F Pulse Rate 90 84 84 Respiratory Rate 15 15 21 H Blood Pressure 136/75 128/76 Pulse Oximetry 98 Oxygen Delivery Room Air 12/06/24 12:16 12/06/24 12:30 12/06/24 12:31 Temperature Pulse Rate 85 82 82 Respiratory Rate 20 17 17 Blood Pressure 113/68 115/75 Pulse Oximetry 100 99 Oxygen Delivery 12/06/24 13:16 12/06/24 13:17 12/06/24 13:30 Temperature Pulse Rate 79 80 77 Respiratory Rate 13 20 14 Blood Pressure 132/75 Pulse Oximetry Oxygen Delivery 12/06/24 13:31 12/06/24 13:45 12/06/24 13:46 Temperature Pulse Rate 78 80 81 Respiratory Rate 15 14 14 Blood Pressure 135/71 131/76 Pulse Oximetry Oxygen Delivery 12/06/24 14:00 12/06/24 14:01 12/06/24 14:15 Temperature Pulse Rate 83 85 88 Respiratory Rate 22 H 18 14 Blood Pressure 133/74 Pulse Oximetry Oxygen Delivery 12/06/24 14:16 12/06/24 14:30 12/06/24 14:33 Temperature Pulse Rate 87 Respiratory Rate 15 13 13 Blood Pressure 126/72 137/79 Pulse Oximetry Oxygen Delivery 12/06/24 14:45 12/06/24 15:00 12/06/24 15:15 Temperature Pulse Rate 83 84 82 Respiratory Rate 17 12 23 H Blood Pressure Pulse Oximetry Oxygen Delivery 12/06/24 15:30 12/06/24 15:45 12/06/24 16:00 Temperature Pulse Rate 83 81 84 Respiratory Rate 20 18 20 Blood Pressure Pulse Oximetry 98 100 94 Oxygen Delivery 12/06/24 16:15 12/06/24 16:30 12/06/24 16:45 Temperature Pulse Rate 84 84 82 Respiratory Rate 21 H 14 16 Blood Pressure Pulse Oximetry 100 Oxygen Delivery 12/06/24 17:02 12/06/24 17:15 12/06/24 17:31 Temperature Pulse Rate Respiratory Rate 8 L 11 L 10 L Blood Pressure Pulse Oximetry Oxygen Delivery 12/06/24 17:45 12/06/24 17:48 12/06/24 18:00 Temperature Pulse Rate 91 91 Respiratory Rate 19 12 19 Blood Pressure 162/78 H Pulse Oximetry 100 99 Oxygen Delivery 12/06/24 18:01 12/06/24 18:15 12/06/24 18:30 Temperature Pulse Rate 91 91 93 Respiratory Rate 18 21 H 13 Blood Pressure 140/80 Pulse Oximetry 100 Oxygen Delivery 12/06/24 18:45 12/06/24 19:00 12/06/24 19:01 Temperature Pulse Rate 95 94 94 Respiratory Rate 21 H 18 19 Blood Pressure 163/94 H Pulse Oximetry Oxygen Delivery 12/06/24 19:15 12/06/24 19:30 12/06/24 19:45 Temperature Pulse Rate 94 98 93 Respiratory Rate 23 H 18 19 Blood Pressure Pulse Oximetry Oxygen Delivery 12/06/24 20:00 12/06/24 20:01 12/06/24 20:15 Temperature Pulse Rate 94 95 96 Respiratory Rate 24 H 21 H 16 Blood Pressure 155/86 H Pulse Oximetry Oxygen Delivery 12/06/24 20:30 12/06/24 20:45 12/07/24 00:44 Temperature 99 F Pulse Rate 92 92 98 Respiratory Rate 18 23 H 20 Blood Pressure 174/88 H Pulse Oximetry 100 100 Oxygen Delivery Exam 2 Narrative: Weight 49.2 kg BMI 19.2 Const: Other: Frail, thin body habitus, debilitated, appears older than stated age HENMT: Other: Mucous membranes are dry, no oral pharyngeal erythema, head is normocephalic atraumatic Eyes: Other: Positive conjunctival pallor, no scleral icterus Neck: Other: Trachea midline, no JVD, no thyromegaly Resp: Other: Clear to auscultation bilaterally, no increased work of breathing Cardio: Other: Heart rate is upper limit of normal, 2+ bilateral radial pedal pulses, no murmur, no JVD GI: Other: Soft, concave, nontender : Other: Pure wick catheter in place Back/Spine/Pelvis: Other: Moderate thoracic kyphosis, muscle spasm of the left trapezius up into the left posterior neck Skin: Other: Mild pallor, non jaundice, dried flaking skin to the feet bilaterally Neuro: Other: Patient is alert oriented times 4 but is still not the best historian, she speaks very quietly, she gives great detail regarding her passion for her prior occupation prior to her disability, no facial asymmetry, generalized weakness but no localizing neurologic deficits Extrem: Other: Marked warmth and swelling of the right knee with old surgical scar noted, no drainage, patient reports pain even at rest without movement but significant increased pain even with passive range of motion, patient has limited range of motion more so in extension than flexion, left knee has evidence of prior left total knee replacement with a area of keloid scar at the top of the surgical scar, there may also be a small joint effusion but no associated warmth, she is generalized muscle wasting of bilateral upper and lower extremities, no clubbing, no cyanosis, increased sensitivity and tenderness to the palpation, no obvious joint abnormalities of the feet, ulnar deviation of the fingers of bilateral hands with swelling of the MCP joints of bilateral hands with associated tenderness to palpation Psych: Other: Mildly anxious, pleasant and cooperative, judgment and insight intact H&P: Results Labs Labs: Laboratory Tests 12/06/24 15:15 12/06/24 15:15 12/06/24 12/06/24 15:15 16:45 WBC 6.9 RBC 2.77 L Hgb 7.5 L Hct 25.1 L MCV 90.6 MCH 27.1 MCHC 29.9 L RDW 16.2 H Plt Count 435 H MPV 8.9 Immature Gran % (Auto) 1.2 H Neut % (Auto) 44.3 L Lymph % (Auto) 43.2 [place] % (Auto) 7.6 Eos % (Auto) 2.8 Baso % (Auto) 0.9 Lymph # (Auto) 2.97 [place] # (Auto) 0.5 Eos # (Auto) 0.2 Baso # (Auto) 0.1 Abs Immat Gran (auto) 0.08 H Absolute Neuts (auto) 3.1 Absolute Nucleated RBC 0.000 Nucleated RBC % 0.0 ESR > 140 H Sodium 134 L Potassium 4.0 Chloride 100 Carbon Dioxide 28 Anion Gap 6 BUN 25 H D Creatinine 0.55 L Estim Creat Clear Calc Not Reportable Estimated GFR > 60 Glucose 87 Uric Acid 6.1 Calcium 8.8 C-Reactive Protein 14.4 H Synovial Source Rt knee syn fluid Synovial Color Brown Synovial Appearance Cloudy [place] Synovial RBC 80972 H Synovial Nuc Cells 23100 H Synovial Neutrophils 93 H Synovial Lymphocytes 3 Synovial Monocytes 4 Synovial Crystals None seen Synovial Glucose Pending Synovial Total Protein Pending Impressions Cervical Spine X-Ray 12/06/24 13:20 IMPRESSION: 1. Moderate cervical spondylosis. 2. Anterior fusion procedure from C5 to C7. Knee X-Ray 12/06/24 13:21 IMPRESSION: 1. Moderate lateral and patellofemoral compartment osteoarthritis with large knee joint effusion. No evident acute osseous abnormality. Chest X-Ray 12/06/24 22:16 IMPRESSION: No acute cardiopulmonary process. All imaging and EKGs personally reviewed and interpreted. And unless stated otherwise agree with radiologic and cardiology interpretation. Assessment and Plan Assessment and plan (1) Septic joint of right knee joint: Qualifiers: Septic arthritis organism: due to unspecified organism Qualified Code(s): M00.9 - Pyogenic arthritis, unspecified Code(s): M00.9 - Pyogenic arthritis, unspecified Status: Acute (2) Hypertension: Qualifiers: Hypertension type: primary hypertension Qualified Code(s): I10 - Essential (primary) hypertension Code(s): I10 - Essential (primary) hypertension Status: Acute (3) Rheumatoid arthritis: Qualifiers: Rheumatoid arthritis location: unspecified site Rheumatoid factor presence: unspecified presence Qualified Code(s): M06.9 - Rheumatoid arthritis, unspecified Code(s): M06.9 - Rheumatoid arthritis, unspecified Status: Acute Plan Patient has a joint effusion suspicious for septic arthritis of the right knee. Orthopedic surgery has been consulted. She is NPO for anticipated I and D with washout. Patient been started empiric antibiotic therapy with Rocephin and vancomycin. Blood cultures have been obtained and are pending. Patient has had generalized deconditioning and weakness was worsening joint pains. She also could have a component of acute rheumatoid flare. If we are not concerned about septic arthritis I would consider placing the patient on some steroid therapy to help with her level of discomfort. Given the concern for acute infection I will hold off on this and will continue p.r.n. pain medications with a [place] however will increase the dose 10/325 q.4 hours. The wall is change morphine to Dilaudid 1 mg q.3 hours as needed for breakthrough pain. Patient will need PT and OT evaluation prior to discharge but given her degree of discomfort at this time will hold off as the patient is anticipated to go to surgery this a.m.. Will also provide pain relief with topical analgesics including menthol creams and lidocaine patch. Patient's blood pressures are elevated out of goal range but she had missed several days of antihypertensives due to relative hypotension at home. Would not be surprising to find out that the patient had orthostatic hypotension. However we cannot check orthostatic vital signs currently due to patient's condition. Will resume the patient's home metoprolol and monitor. The patient states she would like her code status changed to DNR/DNI. Will leave her the full code given that she is anticipated to go to surgery today but this will need to be changed in the acceptable postoperative interval. Quality VTE Prophylaxis VTE prophylaxis: mechanical ordered (SCDs) Hospitalist MIPS Advance Care Plan I have confirmed that the patient's Advanced Care Plan is present, code status is documented, or surrogate decision maker is listed in patient medical record.: Yes Medication Reconciliation I have utilized all available resources to obtain, update and review the patients current medications (includes all prescriptions, OTC, herbals, cannabis, and nutritional supplements).: Yes
[2024-12-07] MEDS: HYDROcodone/acetaminophen (*CRX) 5-325 MG TABLET 1 TAB PO (02:29)
[2024-12-07] MEDS: cefTRIAXone 2 GM/NS 100 ML 2 GM/100 ML BAG IVPB (02:29)
[2024-12-07] MEDS: SODIUM CHLORIDE 0.9% IV 1,000 ML 100 ML IV CONT (05:00)
[2024-12-07 05:33] LABS: Basophils Percent Auto 0.4 % (0.2-1.2); Eosinophils Absolute Auto 0.1 K/mm3 (0-0.3); Eosinophils Percent Auto 1.5 % (0-4.4); Hematocrit 27.4 % (37.0-47.0); Hemoglobin 8.2 g/dL (12.0-15.0); Immature Granulocyte Absolute 0.09 K/mm3 (0.00-0.031); Immature Granulocyte Percent A 1.1 % (0-0.5); Lymphocytes Absolute Auto 2.01 K/mm3 (0.9-3.2); Lymphocytes Percent Auto 24.8 % (18.3-44.2); Mean Corpuscular HGB Conc 29.9 g/dl (32-36); Mean Corpuscular Hemoglobin 27.2 pg (26-34); Mean Platelet Volume 8.7 fl (7.4-10.4); Monocytes Absolute Auto 0.4 K/mm3 (0.1-0.6); Monocytes Percent Auto 4.6 % (2.6-8.5); Neutrophils Absolute Auto 5.5 K/mm3 (1.3-6.7); Neutrophils Percent Auto 67.6 % (45.5-73.1); Platelet Count Result 493 k/mm3 (150-375); Red Blood Count 3.01 M/mm3 (4.2-5.4); Red Cell Distribution Width 16.1 % (11.5-14.5); White Blood Count 8.1 K/mm3 (4.5-10.0)
[2024-12-07 05:45] LABS: Anion Gap 7 mmol/L (4-12); Blood Urea Nitrogen 17 mg/dL (7-17); Calcium 8.6 mg/dL (8.4-10.2); Carbon Dioxide 27 mmol/L (22-30); Chloride 101 mmol/L (98-107); Estimated CRCL calculation 76 ml/min; Estimated Glomerular Filt Rate > 60; Glucose 95 mg/dL (65-110); Potassium 3.8 mmol/L (3.4-5.0); Sodium 135 mmol/L (137-145)
--- NOTE | 2024-12-07 06:15 | P.PNAN_ITS ---
Anes - Eval Pre Procedure Procedure: Incision and drainage right knee Date/Time: 12/07/24 06:15 Surgeon: Adonis Bello Preop Diagnosis: right knee septic arthritis Pre Op Diagnosis: septic knee Patient Data Age: 74 Gender: F Height: 1.6 m Weight: 49.2 kg Last Vital Signs Temp 37.2 C 12/07/24 00:44 Pulse 98 12/07/24 00:44 Resp 20 12/07/24 00:44 BP 174/88 H 12/07/24 00:44 Pulse Ox 100 12/07/24 00:44 O2 Del Method Room Air 12/06/24 09:33 Allergies Allergy/AdvReac Type Severity Reaction Status Date / Time amlodipine Allergy Severe Hives Verified 07/12/24 13:20 banana Allergy Severe throat Verified 07/12/24 13:20 Itching latex Allergy Severe Redness of Verified 07/12/24 13:20 Skin, baker lisinopril Allergy Severe Difficulty Verified 07/12/24 13:20 Breathing Penicillins Allergy Severe Rash Verified 07/12/24 13:20 pseudoephedrine Allergy Severe Difficulty Verified 07/12/24 13:20 Breathing tetracycline Allergy Severe Difficulty Verified 07/12/24 13:20 Breathing tree nut Allergy Severe Other Verified 07/12/24 13:20 dextromethorphan Allergy Intermediate Rash Verified 07/12/24 13:20 prednisone Allergy Unknown Other Verified 07/12/24 13:20 acetaminophen AdvReac Intermediate Nausea and Verified 07/12/24 13:20 Vomiting aspirin AdvReac Intermediate Nausea and Verified 07/12/24 13:20 Vomiting Home Medications ?Medication ?Instructions ?Recorded ?Confirmed ?Type ferrous sulfate 325 mg (65 mg 325 mg PO BIDWM #60 tabs 05/04/24 12/07/24 Rx iron) tablet,delayed release folic acid 1 mg tablet 1 mg PO DAILY #30 tabs 05/04/24 12/07/24 Rx polyethylene glycol 3350 17 17 g PO DAILY 07/09/24 12/07/24 History gram/dose oral powder (Miralax) magnesium 100 mg tablet 100 mg PO DAILY 07/13/24 12/07/24 History docusate sodium 100 mg capsule 100 mg PO Q12H PRN Constipation 07/22/24 12/07/24 Rx #30 caps metoprolol succinate 25 mg 25 mg PO QAM #60 tabs 07/22/24 12/07/24 Rx tablet,extended release 24 hr (Toprol XL) tramadol 25 mg tablet 25 mg PO BID PRN pain (scale score 12/07/24 12/07/24 History 4-6) Laboratory Tests 12/06/24 12/06/24 12/07/24 15:15 16:45 05:25 WBC 6.9 K/mm3 8.1 K/mm3 (4.5-10.0) (4.5-10.0) RBC 2.77 L M/mm3 3.01 L M/mm3 (4.2-5.4) (4.2-5.4) Hgb 7.5 L g/dL 8.2 L g/dL (12.0-15.0) (12.0-15.0) Hct 25.1 L % 27.4 L % (37.0-47.0) (37.0-47.0) MCV 90.6 fl 91.0 fl (80-100) (80-100) MCH 27.1 pg 27.2 pg (26-34) (26-34) MCHC 29.9 L g/dl 29.9 L g/dl (32-36) (32-36) RDW 16.2 H % 16.1 H % (11.5-14.5) (11.5-14.5) Plt Count 435 H k/mm3 493 H k/mm3 (150-375) (150-375) MPV 8.9 fl 8.7 fl (7.4-10.4) (7.4-10.4) Immature Gran % (Auto) 1.2 H % 1.1 H % (0-0.5) (0-0.5) Neut % (Auto) 44.3 L % 67.6 % (45.5-73.1) (45.5-73.1) Lymph % (Auto) 43.2 % 24.8 % (18.3-44.2) (18.3-44.2) [place] % (Auto) 7.6 % 4.6 % (2.6-8.5) (2.6-8.5) Eos % (Auto) 2.8 % 1.5 % (0-4.4) (0-4.4) Baso % (Auto) 0.9 % 0.4 % (0.2-1.2) (0.2-1.2) Lymph # (Auto) 2.97 K/mm3 2.01 K/mm3 (0.9-3.2) (0.9-3.2) [place] # (Auto) 0.5 K/mm3 0.4 K/mm3 (0.1-0.6) (0.1-0.6) Eos # (Auto) 0.2 K/mm3 0.1 K/mm3 (0-0.3) (0-0.3) Baso # (Auto) 0.1 K/mm3 0.0 K/mm3 (0.0-0.1) (0.0-0.1) Abs Immat Gran (auto) 0.08 H K/mm3 0.09 H K/mm3 (0.00-0.031) (0.00-0.031) Absolute Neuts (auto) 3.1 K/mm3 5.5 K/mm3 (1.3-6.7) (1.3-6.7) Absolute Nucleated RBC 0.000 K/mm3 0.000 K/mm3 (0.0-0.012) (0.0-0.012) Nucleated RBC % 0.0 % 0.0 % (0.0-0.2) (0.0-0.2) ESR > 140 H mm/hr (0-20) Sodium 134 L mmol/L 135 L mmol/L (137-145) (137-145) Potassium 4.0 mmol/L 3.8 mmol/L (3.4-5.0) (3.4-5.0) Chloride 100 mmol/L 101 mmol/L (98-107) (98-107) Carbon Dioxide 28 mmol/L 27 mmol/L (22-30) (22-30) Anion Gap 6 mmol/L 7 mmol/L (4-12) (4-12) BUN 25 H D mg/dL 17 mg/dL (7-17) (7-17) Creatinine 0.55 L mg/dL 0.41 L mg/dL (0.7-1.0) (0.7-1.0) Estim Creat Clear Calc Not Reportable 76 ml/min Estimated GFR > 60 > 60 (59 - ) (59 - ) Glucose 87 mg/dL 95 mg/dL (65-110) (65-110) Uric Acid 6.1 mg/dL (2.5-7.5) Calcium 8.8 mg/dL 8.6 mg/dL (8.4-10.2) (8.4-10.2) C-Reactive Protein 14.4 H mg/dL (<1.0) Synovial Source Rt knee syn fluid Synovial Color Brown (Colorless) Synovial Appearance Cloudy A (Clear) Synovial RBC 57141 H /uL (0-0) Synovial Nuc Cells 47160 H /uL (0-200) Synovial Neutrophils 93 H % (0-25) Synovial Lymphocytes 3 % Synovial Monocytes 4 % Synovial Crystals None seen (None Seen) Synovial Glucose Pending Synovial Total Protein Pending Patient hx anesthesia problems: none Family hx anesthesia problems: none Results Review: All pre-operative results and documents have been reviewed as part of the pre- operative evaluation. [facility] Past Medical History Medical History (Updated 12/07/24 @ 02:10 by Lien Anders DO) DVT (deep venous thrombosis) Chronic blood loss anemia History of seizure (~11/2023) Following surgery for septic arthritis. Osteopenia Moderate protein malnutrition Diastolic dysfunction Echo 04/2024 demonstrated EF of 60 65%, mildly increased left ventricular wall thickness, grade 1 diastolic dysfunction, right ventricular function normal, atrial septum appears aneurysmal, moderate aortic valve calcification, mild mitral valve regurgitation, mild tricuspid valve regurgitation Blood thinned due to long-term anticoagulant use Occult blood in stools Hyperlipidemia Hypertension Rheumatoid arthritis Surgical History Surgical History (Updated 12/07/24 @ 02:10 by Lien Anders DO) History of colonoscopy (07/17/24) Internal hemorrhoids, diverticulosis Normal esophagogastroduodenoscopy (EGD) (07/17/24) PEG (percutaneous endoscopic gastrostomy) status Place at [facility] in January 2024 due to dysphagia, remains in place due to moderate to severe protein calorie malnutrition with approximately 50 lb weight loss since August 2023. History of total left knee replacement Port-A-Cath in place Left chest wall H/O right knee surgery (~11/2023) Washout due to septic arthritis November 2023 H/O: hysterectomy Family History Family History Father , black lung disease No problems noted. Mother , from OJI gangrene. No problems noted. Sibling Acute myocardial infarction Prednisolone adverse reaction Sibling No problems noted. Social History Social History (Updated 12/07/24 @ 02:10 by Lien Anders DO) Social History: Code status: Surrogate decision maker: Smoking status: Never smoker Second hand tobacco smoke exposure: No Alcohol intake: never Substance use: never Substance use type: does not use Do You Feel Safe in your Home?: Yes Lack of Transportation: No Lack of Food: Never True Current Housing: I Have Housing Concerned About Future Housing: No Difficulty Paying Gas/Electric Bills: No Difficulty Paying for Meds: No Currently Unemployed: No Education: Master's Degree or Higher Difficulty w/ Childcare or Family Care: No Living arrangements: with family Occupation/Education: retired 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
--- NOTE | 2024-12-07 07:11 | PC.NURSE ---
Patient to OR at this time.
--- NOTE | 2024-12-07 07:18 | P.CONOP_ITS ---
Assessment and Plan Assessment and plan (1) Osteoarthritis of right knee: Code(s): M17.11 - Unilateral primary osteoarthritis, right knee Status: Acute Assessment and Plan: Patient is knee pain right. She has what appears to be a possible infection in the knee. I think it is chronically infected however this point with 60,000 white cells and a left shift I think he needs to be irrigated. A total rock in a [place] but hopefully will settle it down we will see about the cultures and may she may be on long-term antibiotics discussed. (2) Septic joint of right knee joint: Qualifiers: Septic arthritis organism: due to unspecified organism Qualified Code(s): M00.9 - Pyogenic arthritis, unspecified Code(s): M00.9 - Pyogenic arthritis, unspecified Status: Acute History of Present Illness HPI Consult date: 12/07/24 Chief complaint: septic knee Review of Systems 2 Musculoskeletal: Musculoskeletal: Reports arthralgias, Reports joint swelling and Reports stiffness PMFSH Past Medical History Medical History (Updated 12/07/24 @ 02:10 by Lien Anders DO) DVT (deep venous thrombosis) Chronic blood loss anemia History of seizure (~11/2023) Following surgery for septic arthritis. Osteopenia Moderate protein malnutrition Diastolic dysfunction Echo 04/2024 demonstrated EF of 60 65%, mildly increased left ventricular wall thickness, grade 1 diastolic dysfunction, right ventricular function normal, atrial septum appears aneurysmal, moderate aortic valve calcification, mild mitral valve regurgitation, mild tricuspid valve regurgitation Blood thinned due to long-term anticoagulant use Occult blood in stools Hyperlipidemia Hypertension Rheumatoid arthritis Surgical History Surgical History (Updated 12/07/24 @ 02:10 by Lien Anders DO) History of colonoscopy (07/17/24) Internal hemorrhoids, diverticulosis Normal esophagogastroduodenoscopy (EGD) (07/17/24) PEG (percutaneous endoscopic gastrostomy) status Place at [facility] in January 2024 due to dysphagia, remains in place due to moderate to severe protein calorie malnutrition with approximately 50 lb weight loss since August 2023. History of total left knee replacement Port-A-Cath in place Left chest wall H/O right knee surgery (~11/2023) Washout due to septic arthritis November 2023 H/O: hysterectomy Family History Family History Father , black lung disease No problems noted. Mother , from OJI gangrene. No problems noted. Sibling Acute myocardial infarction Prednisolone adverse reaction Sibling No problems noted. Social History Social History (Updated 12/07/24 @ 02:10 by Lien Andres DO) Social History: Code status: Surrogate decision maker: Smoking status: Never smoker Second hand tobacco smoke exposure: No Alcohol intake: never Substance use: never Substance use type: does not use Do You Feel Safe in your Home?: Yes Lack of Transportation: No Lack of Food: Never True Current Housing: I Have Housing Concerned About Future Housing: No Difficulty Paying Gas/Electric Bills: No Difficulty Paying for Meds: No Currently Unemployed: No Education: Master's Degree or Higher Difficulty w/ Childcare or Family Care: No Living arrangements: with family Occupation/Education: retired 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 [employer] Gender identity (if verbalized by the patient): Male Spiritual care concerns: No Meds Home Medications and Allergies Home Medications ?Medication ?Instructions ?Recorded ?Confirmed ?Type ferrous sulfate 325 mg (65 mg 325 mg PO BIDWM #60 tabs 05/04/24 12/07/24 Rx iron) tablet,delayed release folic acid 1 mg tablet 1 mg PO DAILY #30 tabs 05/04/24 12/07/24 Rx polyethylene glycol 3350 17 17 g PO DAILY 07/09/24 12/07/24 History gram/dose oral powder (Miralax) magnesium 100 mg tablet 100 mg PO DAILY 07/13/24 12/07/24 History docusate sodium 100 mg capsule 100 mg PO Q12H PRN Constipation 07/22/24 12/07/24 Rx #30 caps metoprolol succinate 25 mg 25 mg PO QAM #60 tabs 07/22/24 12/07/24 Rx tablet,extended release 24 hr (Toprol XL) tramadol 25 mg tablet 25 mg PO BID PRN pain (scale score 12/07/24 12/07/24 History 4-6) Allergies Allergy/AdvReac Type Severity Reaction Status Date / Time amlodipine Allergy Severe Hives Verified 07/12/24 13:20 banana Allergy Severe throat Verified 07/12/24 13:20 Itching latex Allergy Severe Redness of Verified 07/12/24 13:20 Skin, baker lisinopril Allergy Severe Difficulty Verified 07/12/24 13:20 Breathing Penicillins Allergy Severe Rash Verified 07/12/24 13:20 pseudoephedrine Allergy Severe Difficulty Verified 07/12/24 13:20 Breathing tetracycline Allergy Severe Difficulty Verified 07/12/24 13:20 Breathing tree nut Allergy Severe Other Verified 07/12/24 13:20 dextromethorphan Allergy Intermediate Rash Verified 07/12/24 13:20 prednisone Allergy Unknown Other Verified 07/12/24 13:20 acetaminophen AdvReac Intermediate Nausea and Verified 07/12/24 13:20 Vomiting aspirin AdvReac Intermediate Nausea and Verified 07/12/24 13:20 Vomiting Vital Signs Vital Signs - 24 hr 12/06/24 09:33 12/06/24 12:13 12/06/24 12:15 Temperature 97.6 F Pulse Rate 90 84 84 Respiratory Rate 15 15 21 H Blood Pressure 136/75 128/76 Pulse Oximetry 98 Oxygen Delivery Room Air 12/06/24 12:16 12/06/24 12:30 12/06/24 12:31 Temperature Pulse Rate 85 82 82 Respiratory Rate 20 17 17 Blood Pressure 113/68 115/75 Pulse Oximetry 100 99 Oxygen Delivery 12/06/24 13:16 12/06/24 13:17 12/06/24 13:30 Temperature Pulse Rate 79 80 77 Respiratory Rate 13 20 14 Blood Pressure 132/75 Pulse Oximetry Oxygen Delivery 12/06/24 13:31 12/06/24 13:45 12/06/24 13:46 Temperature Pulse Rate 78 80 81 Respiratory Rate 15 14 14 Blood Pressure 135/71 131/76 Pulse Oximetry Oxygen Delivery 12/06/24 14:00 12/06/24 14:01 12/06/24 14:15 Temperature Pulse Rate 83 85 88 Respiratory Rate 22 H 18 14 Blood Pressure 133/74 Pulse Oximetry Oxygen Delivery 12/06/24 14:16 12/06/24 14:30 12/06/24 14:33 Temperature Pulse Rate 87 Respiratory Rate 15 13 13 Blood Pressure 126/72 137/79 Pulse Oximetry Oxygen Delivery 12/06/24 14:45 12/06/24 15:00 12/06/24 15:15 Temperature Pulse Rate 83 84 82 Respiratory Rate 17 12 23 H Blood Pressure Pulse Oximetry Oxygen Delivery 12/06/24 15:30 12/06/24 15:45 12/06/24 16:00 Temperature Pulse Rate 83 81 84 Respiratory Rate 20 18 20 Blood Pressure Pulse Oximetry 98 100 94 Oxygen Delivery 12/06/24 16:15 12/06/24 16:30 12/06/24 16:45 Temperature Pulse Rate 84 84 82 Respiratory Rate 21 H 14 16 Blood Pressure Pulse Oximetry 100 Oxygen Delivery 12/06/24 17:02 12/06/24 17:15 12/06/24 17:31 Temperature Pulse Rate Respiratory Rate 8 L 11 L 10 L Blood Pressure Pulse Oximetry Oxygen Delivery 12/06/24 17:45 12/06/24 17:48 12/06/24 18:00 Temperature Pulse Rate 91 91 Respiratory Rate 19 12 19 Blood Pressure 162/78 H Pulse Oximetry 100 99 Oxygen Delivery 12/06/24 18:01 12/06/24 18:15 12/06/24 18:30 Temperature Pulse Rate 91 91 93 Respiratory Rate 18 21 H 13 Blood Pressure 140/80 Pulse Oximetry 100 Oxygen Delivery 12/06/24 18:45 12/06/24 19:00 12/06/24 19:01 Temperature Pulse Rate 95 94 94 Respiratory Rate 21 H 18 19 Blood Pressure 163/94 H Pulse Oximetry Oxygen Delivery 12/06/24 19:15 12/06/24 19:30 12/06/24 19:45 Temperature Pulse Rate 94 98 93 Respiratory Rate 23 H 18 19 Blood Pressure Pulse Oximetry Oxygen Delivery 12/06/24 20:00 12/06/24 20:01 12/06/24 20:15 Temperature Pulse Rate 94 95 96 Respiratory Rate 24 H 21 H 16 Blood Pressure 155/86 H Pulse Oximetry Oxygen Delivery 12/06/24 20:30 12/06/24 20:45 12/07/24 00:44 Temperature 99 F Pulse Rate 92 92 98 Respiratory Rate 18 23 H 20 Blood Pressure 174/88 H Pulse Oximetry 100 100 Oxygen Delivery 12/07/24 06:00 Temperature 98.4 F Pulse Rate 99 Respiratory Rate 18 Blood Pressure 147/84 H Pulse Oximetry 100 Oxygen Delivery Exam 2 Narrative: Patient has pain and swellingl in the right knee. She is chronically swollen painful. I have seen in the office however center back to [place] where the original surgery was performed. Unfortunately she continues to be symptomatic. She has an aspiration the is suggestive of an infection with a white count over 60,000 a left shift. Results Labs 12/07/24 05:25 12/07/24 05:25 Labs: Abnormal lab results 12/06/24 12/06/24 12/07/24 Range/Units 15:15 16:45 05:25 RBC 2.77 L 3.01 L (4.2-5.4) M/mm3 Hgb 7.5 L 8.2 L (12.0-15.0) g/dL Hct 25.1 L 27.4 L (37.0-47.0) % MCHC 29.9 L 29.9 L (32-36) g/dl RDW 16.2 H 16.1 H (11.5-14.5) % Plt Count 435 H 493 H (150-375) k/mm3 Immature Gran % (Auto) 1.2 H 1.1 H (0-0.5) % Neut % (Auto) 44.3 L (45.5-73.1) % Abs Immat Gran (auto) 0.08 H 0.09 H (0.00-0.031) K/mm3 ESR > 140 H (0-20) mm/hr Sodium 134 L 135 L (137-145) mmol/L BUN 25 H D (7-17) mg/dL Creatinine 0.55 L 0.41 L (0.7-1.0) mg/dL C-Reactive Protein 14.4 H (<1.0) mg/dL Synovial Appearance Cloudy A (Clear) Synovial RBC 69928 H (0-0) /uL Synovial Nuc Cells 91550 H (0-200) /uL Synovial Neutrophils 93 H (0-25) % H & H 12/06/24 12/07/24 Range/Units 15:15 05:25 Hgb 7.5 L 8.2 L (12.0-15.0) g/dL Hct 25.1 L 27.4 L (37.0-47.0) % All other labs normal.
--- NOTE | 2024-12-07 07:18 | WPDHPUPDATE1 ---
History and Physical Update Update Date/Time: 12/07/24 07:18 History and Physical has been reviewed, including an updated exam of the patient. There are NO changes in the patient's condition. Risks, benefits, and alternatives have been discussed and questions answered. Patient agrees to proceed with procedure.
--- NOTE | 2024-12-07 07:21 | P.PNAN_ITS ---
Anes - Eval Final PreProcedure Day of Procedure 12/07/24 07:21 Patient weight: normal Heart: regular rate and rhythm Lungs: clear to auscultation Airway: Mallampati scale class II and special considerations poor extension Neurological: alert and oriented Last oral intake: >/= 8 hours ASA classification: III Emergent: no Anesthetic plan: proceed Anesthesia type and monitoring: general LMA and standard monitoring Results Review: All pre-operative results and documents have been reviewed as part of the pre- operative evaluation. Informed Consent: The patient's anesthetic plan and its attendant risks and benefits were discussed with the patient/family/POA. Questions were solicited and answers provided to the satisfaction of the patient/family/POA.
[2024-12-07] MEDS: BUPIVACAINE/EPINEPHRINE 0.5% 30 ML VIAL INFILTRATE (08:44)
--- NOTE | 2024-12-07 08:49 | W.PM.PROC2 ---
Procedure Note - Detailed Date of Procedure 12/07/24 Pre-op Diagnosis septic knee Post-op Diagnosis Same Procedure Performed Arthroscopy with irrigation and debridement Surgeon Bill Bello MD Anesthesia General Description of Procedure Patient brought to operating room number 6. General anesthetic was administered. She was sterilely prepped and draped in usual manner. Superomedial portal used with the outflow cannula inferolateral portal for the scope inferomedial port for the instruments diagnostic arthroscopy performed she had a lot of synovitis before any water was placed cultures were sent. The joint fluid looked just a bit purulent her lesion darker. Synovectomy was performed and the joint was cleaned of any debris. 6 liters of saline were flushed through. At this point the instruments removed 3 sutures placed lidocaine injected patient tolerated procedure well. Urine Output 150 Complications No immediate complications Condition Stable Disposition PACU [facility] Billing Surgery - Charge Forward: Surgery Billing ([id number] Arthroscopic synovectomy)
[2024-12-07] MEDS: LACTATED RINGERS 1,000 ML 30 ML IV CONT (09:01)
--- NOTE | 2024-12-07 11:37 | P.PNIM_ITS ---
Progress Note: A&P Assessment and Plan (1) Septic joint of right knee joint: Qualifiers: Septic arthritis organism: due to unspecified organism Qualified Code(s): M00.9 - Pyogenic arthritis, unspecified Code(s): M00.9 - Pyogenic arthritis, unspecified Status: Acute Assessment and Plan: * Patient had a right knee arthroscopy with irrigation and debridement this morning. Patient rates pain in her right knee a 6 , constant, and aching. * Knee fluid sent for culture. * Orthopedic following. * Blood cultures no growth to date. * Patient receiving Ceftriaxone 2 gram IVPB daily and Vancomycin 1,000 mg IVPB q 18. * NS @ 100 ml/hr. (2) Hypertension: Qualifiers: Hypertension type: primary hypertension Qualified Code(s): I10 - Essential (primary) hypertension Code(s): I10 - Essential (primary) hypertension Status: Acute Assessment and Plan: * Metoprolol 25 mg PO daily. * Blood pressure 121/67 today. (3) Rheumatoid arthritis: Qualifiers: Rheumatoid arthritis location: unspecified site Rheumatoid factor presence: unspecified presence Qualified Code(s): M06.9 - Rheumatoid arthritis, unspecified Code(s): M06.9 - Rheumatoid arthritis, unspecified Status: Acute Assessment and Plan: * She also could have a component of acute rheumatoid flare. If we are not concerned about septic arthritis I would consider placing the patient on some steroid therapy to help with her level of discomfort. * Given the concern for acute infection I will hold off on this and will continue p.r.n. pain medications with a [place] however will increase the dose 10/325 q.4 hours. The wall is change morphine to Dilaudid 1 mg q.3 hours as needed for breakthrough pain. * Patient will need PT and OT evaluation prior to discharge but given her degree of discomfort at this time will hold off as the patient is anticipated to go to surgery this a.m. Will also provide pain relief with topical analgesics including menthol creams and lidocaine patch. Subjective Date/time seen: 12/07/24 11:37 Interval history: Patient lying in bed. Patient had a right knee arthroscopy with irrigation and debridement this morning. Patient rates pain in her right knee a 6 , constant, and aching. Patient denies chest pain, palpitations, headache, dizziness, nausea, or vomiting. Patient would like Ensure twice daily. Review of Systems Review of Systems: All systems reviewed & are unremarkable except as noted in HPI and below Exam Const: General: no acute distress and uncomfortable Resp: Effort & Inspection: normal respiratory effort Auscultation: clear to auscultation bilaterally Cardio: Rate: regular rate Rhythm: regular rhythm GI: GI Palp: Yes Soft to palpation Auscultation: normal bowel sounds Neuro: Speech: normal speech Extrem: General: no pedal edema Other: Right knee arthroscopy with irrigation and debridement today. Dressing wrapped with marissa wrap intact. No drainage noted on marissa wrap. Psych: Mental Status: mental status grossly normal Affect: normal affect Objective Data Vital Signs Vital Signs: Vital Signs - 24 hr 12/06/24 12:13 12/06/24 12:15 12/06/24 12:16 Temperature Pulse Rate 84 84 85 Respiratory Rate 15 21 H 20 Blood Pressure 128/76 113/68 Pulse Oximetry Oxygen Delivery Oxygen Flow Rate 12/06/24 12:30 12/06/24 12:31 12/06/24 13:16 Temperature Pulse Rate 82 82 79 Respiratory Rate 17 17 13 Blood Pressure 115/75 Pulse Oximetry 100 99 Oxygen Delivery Oxygen Flow Rate 12/06/24 13:17 12/06/24 13:30 12/06/24 13:31 Temperature Pulse Rate 80 77 78 Respiratory Rate 20 14 15 Blood Pressure 132/75 135/71 Pulse Oximetry Oxygen Delivery Oxygen Flow Rate 12/06/24 13:45 12/06/24 13:46 12/06/24 14:00 Temperature Pulse Rate 80 81 83 Respiratory Rate 14 14 22 H Blood Pressure 131/76 Pulse Oximetry Oxygen Delivery Oxygen Flow Rate 12/06/24 14:01 12/06/24 14:15 12/06/24 14:16 Temperature Pulse Rate 85 88 87 Respiratory Rate 18 14 15 Blood Pressure 133/74 126/72 Pulse Oximetry Oxygen Delivery Oxygen Flow Rate 12/06/24 14:30 12/06/24 14:33 12/06/24 14:45 Temperature Pulse Rate 83 Respiratory Rate 13 13 17 Blood Pressure 137/79 Pulse Oximetry Oxygen Delivery Oxygen Flow Rate 12/06/24 15:00 12/06/24 15:15 12/06/24 15:30 Temperature Pulse Rate 84 82 83 Respiratory Rate 12 23 H 20 Blood Pressure Pulse Oximetry 98 Oxygen Delivery Oxygen Flow Rate 12/06/24 15:45 12/06/24 16:00 12/06/24 16:15 Temperature Pulse Rate 81 84 84 Respiratory Rate 18 20 21 H Blood Pressure Pulse Oximetry 100 94 Oxygen Delivery Oxygen Flow Rate 12/06/24 16:30 12/06/24 16:45 12/06/24 17:02 Temperature Pulse Rate 84 82 Respiratory Rate 14 16 8 L Blood Pressure Pulse Oximetry 100 Oxygen Delivery Oxygen Flow Rate 12/06/24 17:15 12/06/24 17:31 12/06/24 17:45 Temperature Pulse Rate Respiratory Rate 11 L 10 L 19 Blood Pressure Pulse Oximetry Oxygen Delivery Oxygen Flow Rate 12/06/24 17:48 12/06/24 18:00 12/06/24 18:01 Temperature Pulse Rate 91 91 91 Respiratory Rate 12 19 18 Blood Pressure 162/78 H 140/80 Pulse Oximetry 100 99 100 Oxygen Delivery Oxygen Flow Rate 12/06/24 18:15 12/06/24 18:30 12/06/24 18:45 Temperature Pulse Rate 91 93 95 Respiratory Rate 21 H 13 21 H Blood Pressure Pulse Oximetry Oxygen Delivery Oxygen Flow Rate 12/06/24 19:00 12/06/24 19:01 12/06/24 19:15 Temperature Pulse Rate 94 94 94 Respiratory Rate 18 19 23 H Blood Pressure 163/94 H Pulse Oximetry Oxygen Delivery Oxygen Flow Rate 12/06/24 19:30 12/06/24 19:45 12/06/24 20:00 Temperature Pulse Rate 98 93 94 Respiratory Rate 18 19 24 H Blood Pressure Pulse Oximetry Oxygen Delivery Oxygen Flow Rate 12/06/24 20:01 12/06/24 20:15 12/06/24 20:30 Temperature Pulse Rate 95 96 92 Respiratory Rate 21 H 16 18 Blood Pressure 155/86 H Pulse Oximetry Oxygen Delivery Oxygen Flow Rate 12/06/24 20:45 12/07/24 00:44 12/07/24 06:00 Temperature 99 F 98.4 F Pulse Rate 92 98 99 Respiratory Rate 23 H 20 18 Blood Pressure 174/88 H 147/84 H Pulse Oximetry 100 100 100 Oxygen Delivery Oxygen Flow Rate 12/07/24 09:01 12/07/24 09:15 12/07/24 09:20 Temperature 97.6 F Pulse Rate 108 H 103 H Respiratory Rate 20 22 H Blood Pressure 124/76 121/80 Pulse Oximetry 100 100 Oxygen Delivery Simple Face Mask Simple Face Mask Room Air Oxygen Flow Rate 8 8 12/07/24 09:30 12/07/24 09:45 12/07/24 10:00 Temperature 97.9 F Pulse Rate 103 H 102 H 100 Respiratory Rate 22 H 20 20 Blood Pressure 119/73 126/73 124/75 Pulse Oximetry 99 98 98 Oxygen Delivery Room Air Room Air Room Air Oxygen Flow Rate 12/07/24 10:14 12/07/24 10:28 12/07/24 10:58 Temperature 97.2 F L 97.3 F L 97.7 F Pulse Rate 100 98 97 Respiratory Rate 16 16 16 Blood Pressure 121/67 127/71 119/65 Pulse Oximetry 100 100 100 Oxygen Delivery Oxygen Flow Rate Intake/Output Intake/Output: Intake & Output 12/04/24 12/05/24 12/06/24 12/07/24 23:59 23:59 23:59 23:59 Intake Total 100 Output Total 300 Balance -200 Meds/Results Medications: Active Medications Generic Name Dose Route Start Last Admin Trade Name Regisq PRN Reason Stop Dose Admin Acetaminophen 650 mg 12/06/24 22:00 Acetaminophen 325 Mg Tablet PO Q4H PRN Mild Pain (1-3) or Fever Hydrocodone Bitart/Acetaminophen 1 tab 12/07/24 10:05 Hydrocodone/Acetaminophen (*Crx) 5-325 Mg Tablet PO Q6H PRN Pain Rated 4-6 Docusate Sodium 100 mg 12/07/24 01:57 Docusate Sodium 100 Mg Capsule PO Q12H PRN Constipation Fentanyl Citrate 25 mcg 12/07/24 07:22 Fentanyl Citrate Inj (*Crx) 100 Mcg/2 Ml Vial IV PUSH Q2M PRN Pain Ferrous Sulfate 325 mg 12/07/24 08:00 Ferrous Sulfate [address] PO BIDWM MIROSLAVA Folic Acid 1 mg 12/07/24 09:00 Folic Acid 1 Mg Tablet PO DAILY MIROSLAVA Hydromorphone HCl 1 mg 12/07/24 04:07 Hydromorphone Hcl Inj (*Crx) 1 Mg/Ml Syr IV PUSH Q3H PRN Breakthrough Pain Ceftriaxone Sodium 2 gm in 100 mls @ 200 mls/hr 12/08/24 02:00 Rocephin 2 Gm/Ns 100 Ml IVPB Q24H MIROSLAVA Vancomycin HCl 1,000 mg in 250 mls @ 250 mls/hr 12/07/24 18:00 Vancomycin 1,000 Mg/Ns 250 Ml IVPB Q18H [facility] Sodium Chloride 1,000 mls @ 100 mls/hr 12/07/24 04:40 12/07/24 05:00 Normal Saline Iv IV CONT 100 mls/hr .Q10H MIROSLAVA Administration Lactated Ringer's 1,000 mls @ 30 mls/hr 12/07/24 07:25 12/07/24 10:00 Lr - Lactated Ringers Iv IV CONT Infused .Q24H MIROSLAVA Infusion Lactated Ringer's 1,000 mls @ 30 mls/hr 12/07/24 07:25 Lr - Lactated Ringers Iv IV CONT .Q24H [facility] Lidocaine 1 patch 12/07/24 09:00 Lidocaine 5% Patch TRANSDERM DAILY [facility] Magnesium Oxide 100 mg 12/07/24 09:00 Magnesium Oxide 200 Mg Tablet PO DAILY [facility] Menthol/Methyl Salicylate 1 applic 12/07/24 04:35 Menthol 10% / Methyl Salicylate 15% 57 Gm Tube TOPICAL BID PRN Muscle/Joint Pain Metoprolol Succinate 25 mg 12/07/24 09:00 Metoprolol Succinate Ext Rel 25 Mg Tabcr PO QAM [facility] Miscellaneous Information 0 each 12/07/24 00:01 Lidocaine Patch Add Site Of Use XX 01/06/25 00:00 CLARIFY [facility] Ondansetron HCl 4 mg 12/06/24 22:00 Ondansetron Inj 4 Mg/2 Ml Vial IV PUSH Q4H PRN Nausea Ondansetron HCl 4 mg 12/07/24 07:22 Ondansetron Inj 4 Mg/2 Ml Vial IV PUSH ONCE PRN Nausea Polyethylene Glycol 17 gm 12/07/24 09:00 Polyethylene Glycol 3350 17 Gm Powd.Pack PO DAILY [facility] Sodium Chloride 1 spray 12/07/24 04:39 Saline 0.65% Reese Soln 44 Ml Btl NASAL Q6HR PRN Congestion Radiology Results: ITS Impressions Cervical Spine X-Ray 12/06/24 13:20 IMPRESSION: 1. Moderate cervical spondylosis. 2. Anterior fusion procedure from C5 to C7. Knee X-Ray 12/06/24 13:21 IMPRESSION: 1. Moderate lateral and patellofemoral compartment osteoarthritis with large knee joint effusion. No evident acute osseous abnormality. Chest X-Ray 12/06/24 22:16 IMPRESSION: No acute cardiopulmonary process. Labs Labs: Laboratory Results - last 24 hr 12/06/24 12/06/24 12/07/24 15:15 16:45 05:25 WBC 6.9 8.1 RBC 2.77 L 3.01 L Hgb 7.5 L 8.2 L Hct 25.1 L 27.4 L MCV 90.6 91.0 MCH 27.1 27.2 MCHC 29.9 L 29.9 L RDW 16.2 H 16.1 H Plt Count 435 H 493 H MPV 8.9 8.7 Immature Gran % (Auto) 1.2 H 1.1 H Neut % (Auto) 44.3 L 67.6 Lymph % (Auto) 43.2 24.8 [place] % (Auto) 7.6 4.6 Eos % (Auto) 2.8 1.5 Baso % (Auto) 0.9 0.4 Lymph # (Auto) 2.97 2.01 [place] # (Auto) 0.5 0.4 Eos # (Auto) 0.2 0.1 Baso # (Auto) 0.1 0.0 Abs Immat Gran (auto) 0.08 H 0.09 H Absolute Neuts (auto) 3.1 5.5 Absolute Nucleated RBC 0.000 0.000 Nucleated RBC % 0.0 0.0 ESR > 140 H Sodium 134 L 135 L Potassium 4.0 3.8 Chloride 100 101 Carbon Dioxide 28 27 Anion Gap 6 7 BUN 25 H D 17 Creatinine 0.55 L 0.41 L Estim Creat Clear Calc Not Reportable 76 Estimated GFR > 60 > 60 Glucose 87 95 Uric Acid 6.1 Calcium 8.8 8.6 C-Reactive Protein 14.4 H Synovial Source Rt knee syn fluid Synovial Color Brown Synovial Appearance Cloudy A Synovial RBC 78542 H Synovial Nuc Cells 08533 H Synovial Neutrophils 93 H Synovial Lymphocytes 3 Synovial Monocytes 4 Synovial Crystals None seen Blood Type A Positive Antibody Screen Positive DAVIAN, IgG Interpret Positive DAVIAN, Poly Interpret TNP DAVIAN, Complement Interp TNP Quality VTE Prophylaxis VTE prophylaxis: mechanical ordered (SCDs)
[2024-12-07] MEDS: FOLIC ACID 1 MG TABLET PO (12:13)
[2024-12-07] MEDS: polyethylene glycoL 3350 17 GM POWD.PACK PO (12:13)
[2024-12-07] MEDS: FERROUS SULFATE 325 MG TABLET DR PO ×2 (12:13→17:35)
[2024-12-07] MEDS: METOPROLOL SUCCINATE EXT REL 25 MG TABCR PO (12:13)
[2024-12-07] MEDS: LIDOCAINE 5% PATCH 1 PATCH TRANSDERM (12:14)
--- NOTE | 2024-12-07 12:33 | PC.NURSE ---
Morning medications administered at 1230, patient was in surgery at 0730 and not alert and awake until 1230.
[2024-12-07] MEDS: MAGNESIUM OXIDE 200 MG TABLET PO (12:37)
[2024-12-07 15:38] LABS: Magnesium 1.5 mg/dL (1.6-2.3)
[2024-12-07] MEDS: MAGNESIUM SULF 2 GM/WATER 50ML 2 GM/50 ML BAG IVPB (17:23)
[2024-12-07] MEDS: VANCOMYCIN 1,000 MG/NS 250 ML 1,000 MG/250 ML BAG 250 MG IVPB (18:57)
[2024-12-07] MEDS: HYDROmorphone HCL INJ (*CRX) 1 MG/ML SYR IV PUSH (23:42)
[2024-12-07] MEDS: CENTRAL LINE FLUSH 10 ML IV PUSH (23:44)
[2024-12-08] VITALS (7 sets, daily range): BP systolic 114–132; BP diastolic 56–70; PULSE 76–91; RESP 16–20; TEMP 36.1–37.4; O2SAT 99–100
[2024-12-08] MEDS: cefTRIAXone 2 GM/NS 100 ML 2 GM/100 ML BAG IVPB (02:19)
[2024-12-08] MEDS: HYDROmorphone HCL INJ (*CRX) 1 MG/ML SYR IV PUSH (04:14)
[2024-12-08] MEDS: CENTRAL LINE FLUSH 10 ML IV PUSH ×3 (04:16→22:26)
[2024-12-08 04:18] LABS: Basophils Percent Auto 0.4 % (0.2-1.2); Eosinophils Absolute Auto 0.6 K/mm3 (0-0.3); Eosinophils Percent Auto 6.7 % (0-4.4); Immature Granulocyte Absolute 0.15 K/mm3 (0.00-0.031); Immature Granulocyte Percent A 1.7 % (0-0.5); Lymphocytes Absolute Auto 1.45 K/mm3 (0.9-3.2); Mean Corpuscular HGB Conc 30.2 g/dl (32-36); Mean Corpuscular Volume 92.8 fl (80-100); Mean Platelet Volume 8.8 fl (7.4-10.4); Monocytes Absolute Auto 0.5 K/mm3 (0.1-0.6); Monocytes Percent Auto 5.5 % (2.6-8.5); Neutrophils Absolute Auto 6.3 K/mm3 (1.3-6.7); Neutrophils Percent Auto 69.7 % (45.5-73.1); Platelet Count Result 349 k/mm3 (150-375); Red Blood Count 2.07 M/mm3 (4.2-5.4); Red Cell Distribution Width 16.6 % (11.5-14.5); White Blood Count 9.1 K/mm3 (4.5-10.0)
[2024-12-08] MEDS: SODIUM CHLORIDE 0.9% IV 1,000 ML 100 ML IV CONT ×2 (04:21→14:19)
[2024-12-08 04:23] LABS: Hematocrit 19.2 % (37.0-47.0); Hemoglobin 5.8 g/dL (12.0-15.0)
[2024-12-08 04:30] LABS: Alanine Aminotransferase 7 U/L (6-35); Albumin Level 2.2 g/dL (3.5-5.1); Alkaline Phosphatase 75 U/L (38-126); Anion Gap 2 mmol/L (4-12); Aspartate Amino Transferase 26 U/L (14-36); Bilirubin,Total 0.3 mg/dL (0.2-1.3); Blood Urea Nitrogen 24 mg/dL (7-17); Calcium 7.4 mg/dL (8.4-10.2); Carbon Dioxide 28 mmol/L (22-30); Chloride 103 mmol/L (98-107); Estimated CRCL calculation 42 ml/min; Estimated Glomerular Filt Rate > 60; Glucose 112 mg/dL (65-110); Potassium 3.9 mmol/L (3.4-5.0); Sodium 133 mmol/L (137-145)
--- NOTE | 2024-12-08 04:36 | PC.NURSE ---
Spoke to Maggy, notified of add-on magnesium for labs.
--- NOTE | 2024-12-08 05:32 | PC.NURSE ---
Received call from [facility]. Heparin flushes placed on hold due to critical hemoglobin/hematocrit.
--- NOTE | 2024-12-08 07:24 | PC.NURSE ---
BLOOD PRODUCT CONSENT SIGNED AND PLACED IN CHART.
--- NOTE | 2024-12-08 08:54 | WPDANESPN ---
Anes - Prog Note Post-Op Date/Time: 12/08/24 08:54 Cardiovascular status: normal Respiratory status: normal Airway patency: baseline Mental status: baseline Post-Op hydration status: normal Vital Signs: Last Vital Signs Temp 37.4 C 12/08/24 04:05 Pulse 91 12/08/24 04:05 Resp 18 12/08/24 04:05 BP 121/66 12/08/24 04:05 Pulse Ox 100 12/08/24 04:05 O2 Del Method Room Air 12/07/24 20:00 O2 Flow Rate 8 12/07/24 09:15 Pain Score (VAS): 0 I/O: Intake & Output 12/07/24 12/08/24 12/08/24 23:59 07:59 15:59 Intake Total 200 300 Output Total 450 Balance 200 -150 Laboratory Tests 12/08/24 04:07 12/08/24 04:07 12/07/24 12/07/24 12/08/24 05:25 15:22 04:07 WBC 9.1 RBC 2.07 L Hgb 5.8 L* Hct 19.2 L* MCV 92.8 MCH 28.0 MCHC 30.2 L RDW 16.6 H Plt Count 349 MPV 8.8 Immature Gran % (Auto) 1.7 H Neut % (Auto) 69.7 Lymph % (Auto) 16.0 L [place] % (Auto) 5.5 Eos % (Auto) 6.7 H Baso % (Auto) 0.4 Lymph # (Auto) 1.45 [place] # (Auto) 0.5 Eos # (Auto) 0.6 H Baso # (Auto) 0.0 Abs Immat Gran (auto) 0.15 H Absolute Neuts (auto) 6.3 Absolute Nucleated RBC 0.000 Nucleated RBC % 0.0 Sodium 133 L Potassium 3.9 Chloride 103 Carbon Dioxide 28 Anion Gap 2 L BUN 24 H Creatinine 0.79 Estim Creat Clear Calc 42 Estimated GFR > 60 Glucose 112 H Calcium 7.4 L Magnesium 1.5 L 2.0 Total Bilirubin 0.3 AST 26 ALT 7 Alkaline Phosphatase 75 Total Protein 7.0 Albumin 2.2 L Blood Type A Positive Antibody Screen Positive Antibody Identification Pending Antigen Identification Pending DAVIAN, IgG Interpret Positive DAVIAN, Poly Interpret TNP DAVIAN, Complement Interp TNP Microbiology 12/06/24 16:45 Synovial Fluid Right Knee Anaerobic Culture - Preliminary 12/06/24 16:45 Synovial Fluid Right Knee Aerobic Culture - Preliminary 12/06/24 23:44 Blood Blood Culture - Preliminary 12/06/24 23:44 Blood Blood Culture - Preliminary 12/06/24 16:44 Synovial Fluid Right Knee Gram Stain - Final Post-procedural complaints: none Patient Feedback: Patient satisfied with anesthetic care.
[2024-12-08] MEDS: HYDROcodone/acetaminophen (*CRX) 5-325 MG TABLET 1 TAB PO ×2 (09:07→17:42)
[2024-12-08] MEDS: METOPROLOL SUCCINATE EXT REL 25 MG TABCR PO (09:09)
[2024-12-08] MEDS: FERROUS SULFATE 325 MG TABLET DR PO ×2 (09:09→17:40)
[2024-12-08] MEDS: MAGNESIUM OXIDE 200 MG TABLET PO (09:10)
[2024-12-08] MEDS: FOLIC ACID 1 MG TABLET PO (09:10)
[2024-12-08] MEDS: LIDOCAINE 5% PATCH 1 PATCH TRANSDERM (09:11)
[2024-12-08] MEDS: polyethylene glycoL 3350 17 GM POWD.PACK PO (09:11)
[2024-12-08 11:04] LABS: CRP 15.8 mg/dL (<1.0)
--- NOTE | 2024-12-08 11:39 | P.PNIM_ITS ---
Progress Note: A&P Assessment and Plan (1) Septic joint of right knee joint: Qualifiers: Septic arthritis organism: due to unspecified organism Qualified Code(s): M00.9 - Pyogenic arthritis, unspecified Code(s): M00.9 - Pyogenic arthritis, unspecified Status: Acute Assessment and Plan: * Patient had a right knee arthroscopy with irrigation and debridement this morning. Patient rates pain in her right knee a 6 , constant, and aching. * Knee fluid sent for culture. * Orthopedic following. * Blood cultures no growth to date. * Patient receiving Ceftriaxone 2 gram IVPB daily and Vancomycin 1,000 mg IVPB q 18. * Stop IV fluids. (2) Hypertension: Qualifiers: Hypertension type: primary hypertension Qualified Code(s): I10 - Essential (primary) hypertension Code(s): I10 - Essential (primary) hypertension Status: Acute Assessment and Plan: * Metoprolol 25 mg PO daily. * Blood pressure 115/65 today. (3) Rheumatoid arthritis: Qualifiers: Rheumatoid arthritis location: unspecified site Rheumatoid factor presence: unspecified presence Qualified Code(s): M06.9 - Rheumatoid arthritis, unspecified Code(s): M06.9 - Rheumatoid arthritis, unspecified Status: Acute Assessment and Plan: * She also could have a component of acute rheumatoid flare. If we are not concerned about septic arthritis I would consider placing the patient on some steroid therapy to help with her level of discomfort. * Given the concern for acute infection I will hold off on this and will continue p.r.n. pain medications with a [place] however will increase the dose 10/325 q.4 hours. The wall is change morphine to Dilaudid 1 mg q 3 hours as needed for breakthrough pain. * Patient will need PT and OT evaluation prior to discharge but given her degree of discomfort at this time will hold off as the patient is anticipated to go to surgery this a.m. Will also provide pain relief with topical analgesics including menthol creams and lidocaine patch. (4) Anemia: Code(s): D64.9 - Anemia, unspecified Status: Acute Assessment and Plan: * H&H 5.8/19.2 this morning, prior H&H was 8.2/27.4. 2 units of PRBC's ordered. Patient wants to wait for compatible blood, patient is not agreeable to the least compatible blood. Repeat 5.8.1. Blood pressure 115/65. Blood bank working to locate compatible blood. * Stop IV fluids. * Stool for occult blood. * Abdominal pelvis CT without contrast. * Monitor labs. Subjective Date/time seen: 12/08/24 11:39 Interval history: Patient lying in bed. Patient had a right knee arthroscopy with irrigation and debridement yesterday. Patient rates pain in her right knee a 6 , constant, and aching. Patient denies chest pain, palpitations, headache, dizziness, nausea, or vomiting. Review of Systems Review of Systems: All systems reviewed & are unremarkable except as noted in HPI and below Exam Const: General: no acute distress and uncomfortable Resp: Effort & Inspection: normal respiratory effort Auscultation: clear to auscultation bilaterally Cardio: Rate: regular rate Rhythm: regular rhythm GI: GI Palp: Yes Soft to palpation Auscultation: normal bowel sounds Neuro: Speech: normal speech Extrem: General: no pedal edema Other: Right knee arthroscopy with irrigation and debridement today. Dressing wrapped with marissa wrap intact. No drainage noted on marissa wrap. Psych: Mental Status: mental status grossly normal Affect: normal affect Objective Data Vital Signs Vital Signs: Vital Signs - 24 hr 12/07/24 11:58 12/07/24 12:13 12/07/24 17:49 Temperature 97.7 F 98.5 F Pulse Rate 99 96 87 Respiratory Rate 16 16 Blood Pressure 109/73 111/60 Pulse Oximetry 100 100 Oxygen Delivery 12/07/24 20:00 12/07/24 23:27 12/08/24 04:05 Temperature 98.6 F 99.3 F Pulse Rate 80 91 Respiratory Rate 16 18 Blood Pressure 102/56 L 121/66 Pulse Oximetry 97 100 Oxygen Delivery Room Air 12/08/24 09:09 12/08/24 11:00 Temperature 98.3 F Pulse Rate 76 88 Respiratory Rate 16 Blood Pressure 114/56 L Pulse Oximetry 100 Oxygen Delivery Intake/Output Intake/Output: Intake & Output 12/05/24 12/06/24 12/07/24 12/08/24 23:59 23:59 23:59 23:59 Intake Total 1300 540 Output Total 300 450 Balance 1000 90 Meds/Results Medications: Active Medications Generic Name Dose Route Start Last Admin Trade Name Freq PRN Reason Stop Dose Admin Acetaminophen 650 mg 12/06/24 22:00 Acetaminophen 325 Mg Tablet PO Q4H PRN Mild Pain (1-3) or Fever Hydrocodone Bitart/Acetaminophen 1 tab 12/07/24 10:05 12/08/24 09:07 Hydrocodone/Acetaminophen (*Crx) 5-325 Mg Tablet PO 1 tab Q6H PRN Administration Pain Rated 4-6 Docusate Sodium 100 mg 12/07/24 01:57 Docusate Sodium 100 Mg Capsule PO Q12H PRN Constipation Fentanyl Citrate 25 mcg 12/07/24 07:22 Fentanyl Citrate Inj (*Crx) 100 Mcg/2 Ml Vial IV PUSH Q2M PRN Pain Ferrous Sulfate 325 mg 12/07/24 08:00 12/08/24 09:09 Ferrous Sulfate [address] PO 325 mg BIDWM MIROSLAVA Administration Folic Acid 1 mg 12/07/24 09:00 12/08/24 09:10 Folic Acid 1 Mg Tablet PO 1 mg DAILY MIROSLAVA Administration Heparin Sodium (Beef Lung) 50 units 12/08/24 09:00 Heparin Flush 50 Units/5 Ml Syringe IV PUSH QAM MIROSLAVA Heparin Sodium (Beef Lung) 50 units 12/07/24 17:29 Heparin Flush 50 Units/5 Ml Syringe IV PUSH PRN PRN after intermittent infusion Heparin Sodium (Beef Lung) 50 units 12/07/24 17:29 Heparin Flush 50 Units/5 Ml Syringe IV PUSH PRN PRN after blood draws Heparin Sodium (Porcine) 500 units 12/07/24 17:29 Heparin Sodium Lock Flush 500 Units/5 Ml Syringe IV PUSH PRN PRN see comments below Hydromorphone HCl 1 mg 12/07/24 04:07 12/08/24 04:14 Hydromorphone Hcl Inj (*Crx) 1 Mg/Ml Syr IV PUSH 1 mg Q3H PRN Administration Breakthrough Pain Ceftriaxone Sodium 2 gm in 100 mls @ 200 mls/hr 12/08/24 02:00 12/08/24 02:19 Rocephin 2 Gm/Ns 100 Ml IVPB 200 mls/hr Q24H MIROSLAVA Administration Vancomycin HCl 1,000 mg in 250 mls @ 250 mls/hr 12/07/24 18:00 12/07/24 18:57 Vancomycin 1,000 Mg/Ns 250 Ml IVPB 250 mls/hr Q18H MIROSLAVA Administration Sodium Chloride 1,000 mls @ 100 mls/hr 12/07/24 04:40 12/08/24 04:21 Normal Saline Iv IV CONT 100 mls/hr .Q10H MIROSLAVA Administration Sodium Chloride 250 mls @ 30 mls/hr 12/08/24 04:34 Normal Saline Iv IV CONT 12/08/24 12:53 .Q8H20M STA Lidocaine 1 patch 12/07/24 09:00 12/08/24 09:11 Lidocaine 5% Patch TRANSDERM 1 patch DAILY MIROSLAVA Administration Magnesium Oxide 200 mg 12/07/24 12:20 12/08/24 09:10 Magnesium Oxide 200 Mg Tablet PO 200 mg DAILY MIROSLAVA Administration Menthol/Methyl Salicylate 1 applic 12/07/24 04:35 Menthol 10% / Methyl Salicylate 15% 57 Gm Tube TOPICAL BID PRN Muscle/Joint Pain Metoprolol Succinate 25 mg 12/07/24 09:00 12/08/24 09:09 Metoprolol Succinate Ext Rel 25 Mg Tabcr PO 25 mg QAM MIROSLAVA Administration Ondansetron HCl 4 mg 12/06/24 22:00 Ondansetron Inj 4 Mg/2 Ml Vial IV PUSH Q4H PRN Nausea Ondansetron HCl 4 mg 12/07/24 07:22 Ondansetron Inj 4 Mg/2 Ml Vial IV PUSH ONCE PRN Nausea Polyethylene Glycol 17 gm 12/07/24 09:00 12/08/24 09:11 Polyethylene Glycol 3350 17 Gm Powd.Pack PO 17 gm DAILY MIROSLAVA Administration Sodium Chloride 1 spray 12/07/24 04:39 Saline 0.65% Reese Soln 44 Ml Btl NASAL Q6HR PRN Congestion Sodium Chloride 10 ml 12/07/24 22:00 12/08/24 04:16 Central Line Flush IV PUSH 10 ml Q8HR MIROSLAVA Administration Radiology Results: ITS Impressions Cervical Spine X-Ray 12/06/24 13:20 IMPRESSION: 1. Moderate cervical spondylosis. 2. Anterior fusion procedure from C5 to C7. Knee X-Ray 12/06/24 13:21 IMPRESSION: 1. Moderate lateral and patellofemoral compartment osteoarthritis with large knee joint effusion. No evident acute osseous abnormality. Chest X-Ray 12/06/24 22:16 IMPRESSION: No acute cardiopulmonary process. Labs Labs: Laboratory Results - last 24 hr 12/07/24 12/08/24 15:22 04:07 WBC 9.1 RBC 2.07 L Hgb 5.8 L* Hct 19.2 L* MCV 92.8 MCH 28.0 MCHC 30.2 L RDW 16.6 H Plt Count 349 MPV 8.8 Immature Gran % (Auto) 1.7 H Neut % (Auto) 69.7 Lymph % (Auto) 16.0 L [place] % (Auto) 5.5 Eos % (Auto) 6.7 H Baso % (Auto) 0.4 Lymph # (Auto) 1.45 [place] # (Auto) 0.5 Eos # (Auto) 0.6 H Baso # (Auto) 0.0 Abs Immat Gran (auto) 0.15 H Absolute Neuts (auto) 6.3 Absolute Nucleated RBC 0.000 Nucleated RBC % 0.0 Sodium 133 L Potassium 3.9 Chloride 103 Carbon Dioxide 28 Anion Gap 2 L BUN 24 H Creatinine 0.79 Estim Creat Clear Calc 42 Estimated GFR > 60 Glucose 112 H Calcium 7.4 L Magnesium 1.5 L 2.0 Total Bilirubin 0.3 AST 26 ALT 7 Alkaline Phosphatase 75 C-Reactive Protein 15.8 H Total Protein 7.0 Albumin 2.2 L Quality VTE Prophylaxis VTE prophylaxis: mechanical ordered (SCDs)
--- NOTE | 2024-12-08 11:42 | PCPTNOTE ---
attempted PT eval, per RN pt has a hemoglobin level in the 5's and is very weak and tired at this time, plans to get blood transfusion sometime today, will follow when hemoglobin is improved
--- NOTE | 2024-12-08 12:20 | PCOTNOTE ---
Attempted OT eval, per RN pt has a hemoglobin level in the 5's and is very weak and tired at this time, plans to get blood transfusion sometime today, will follow when hemoglobin is improved
[2024-12-08 13:06] LABS: Vancomycin Trough 15.1 ug/mL (10.0-20.0)
[2024-12-08] MEDS: VANCOMYCIN 1,000 MG/NS 250 ML 1,000 MG/250 ML BAG 250 MG IVPB (14:12)
[2024-12-08 14:28] LABS: Hematocrit 19.1 % (37.0-47.0); Hemoglobin 5.8 g/dL (12.0-15.0)
[2024-12-09] VITALS (14 sets, daily range): BP systolic 124–154; BP diastolic 63–80; PULSE 73–86; RESP 16–20; TEMP 36–36.8; O2SAT 99–100; BMI 19.2
[2024-12-09] MEDS: cefTRIAXone 2 GM/NS 100 ML 2 GM/100 ML BAG IVPB (02:54)
[2024-12-09 05:50] LABS: Basophils Percent Auto 0.5 % (0.2-1.2); Eosinophils Absolute Auto 0.8 K/mm3 (0-0.3); Eosinophils Percent Auto 10.6 % (0-4.4); Immature Granulocyte Absolute 0.09 K/mm3 (0.00-0.031); Immature Granulocyte Percent A 1.2 % (0-0.5); Lymphocytes Absolute Auto 1.45 K/mm3 (0.9-3.2); Lymphocytes Percent Auto 19.1 % (18.3-44.2); Mean Corpuscular HGB Conc 29.9 g/dl (32-36); Mean Corpuscular Hemoglobin 28.2 pg (26-34); Mean Corpuscular Volume 94.3 fl (80-100); Mean Platelet Volume 9.2 fl (7.4-10.4); Monocytes Absolute Auto 0.5 K/mm3 (0.1-0.6); Monocytes Percent Auto 6.7 % (2.6-8.5); Neutrophils Absolute Auto 4.7 K/mm3 (1.3-6.7); Neutrophils Percent Auto 61.9 % (45.5-73.1); Platelet Count Result 357 k/mm3 (150-375); Red Blood Count 2.09 M/mm3 (4.2-5.4); Red Cell Distribution Width 16.4 % (11.5-14.5); White Blood Count 7.6 K/mm3 (4.5-10.0)
[2024-12-09 06:02] LABS: Alanine Aminotransferase 6 U/L (6-35); Albumin Level 2.1 g/dL (3.5-5.1); Alkaline Phosphatase 77 U/L (38-126); Anion Gap 2 mmol/L (4-12); Aspartate Amino Transferase 22 U/L (14-36); Bilirubin,Total 0.3 mg/dL (0.2-1.3); Blood Urea Nitrogen 17 mg/dL (7-17); Calcium 7.9 mg/dL (8.4-10.2); Carbon Dioxide 28 mmol/L (22-30); Chloride 107 mmol/L (98-107); Estimated CRCL calculation 55 ml/min; Estimated Glomerular Filt Rate > 60; Glucose 104 mg/dL (65-110); Potassium 3.8 mmol/L (3.4-5.0); Sodium 137 mmol/L (137-145)
[2024-12-09] MEDS: CENTRAL LINE FLUSH 10 ML IV PUSH ×3 (06:36→22:00)
[2024-12-09] MEDS: HYDROmorphone HCL INJ (*CRX) 1 MG/ML SYR IV PUSH ×2 (06:36→21:31)
[2024-12-09 06:43] LABS: Hematocrit 19.7 % (37.0-47.0); Hemoglobin 5.9 g/dL (12.0-15.0)
[2024-12-09 06:45] LABS: Anisocytosis 1+; Hypochromasia 2+; Platelet Estimate Adequate (Adequate)
[2024-12-09 06:46] LABS: Schistocytes None Seen
--- NOTE | 2024-12-09 07:28 | P.PNOP_ITS ---
Progress Note: A&P Assessment and Plan (1) Septic joint of right knee joint: Qualifiers: Septic arthritis organism: due to unspecified organism Qualified Code(s): M00.9 - Pyogenic arthritis, unspecified Code(s): M00.9 - Pyogenic arthritis, unspecified Status: Acute Assessment and Plan: No growth today. She does an elevated white count with a left shift in the sapirate. Although go out to the rheumatoid arthritis or less likely either possible even with the numbers above. White count in aspirate 65,000 Neutrophiles 93% ESR 140 CRP 14.8 Subjective Subjective Date/Time Seen: 12/09/24 07:28 Post Op day: 2 Principal diagnosis: Septic knee Review of Systems Musculoskeletal: Musculoskeletal: Reports arthralgias, Reports joint swelling and Reports stiffness Exam Narrative: Moderate Swelling Wiggles toes Objective Data Vital Signs Vital Signs: Vital Signs - 24 hr 12/08/24 09:09 12/08/24 09:10 12/08/24 11:00 Temperature 98.3 F Pulse Rate 76 88 Respiratory Rate 16 Blood Pressure 114/56 L Pulse Oximetry 100 100 Oxygen Delivery Room Air 12/08/24 14:23 12/08/24 17:58 12/08/24 20:00 Temperature 98.3 F 97.8 F Pulse Rate 82 80 Respiratory Rate 16 16 Blood Pressure 115/65 115/70 Pulse Oximetry 100 99 Oxygen Delivery Room Air 12/08/24 23:33 Temperature 97.0 F L Pulse Rate 82 Respiratory Rate 20 Blood Pressure 132/63 Pulse Oximetry 100 Oxygen Delivery Intake/Output Intake/Output: Intake & Output 12/06/24 12/07/24 12/08/24 12/09/24 23:59 23:59 23:59 23:59 Intake Total 1300 2290 Output Total 300 650 Balance 1000 1640 Meds/Results Medications: Active Medications Generic Name Dose Route Start Last Admin Trade Name Freq PRN Reason Stop Dose Admin Acetaminophen 650 mg 12/06/24 22:00 Acetaminophen 325 Mg Tablet PO Q4H PRN Mild Pain (1-3) or Fever Hydrocodone Bitart/Acetaminophen 1 tab 12/07/24 10:05 12/08/24 17:42 Hydrocodone/Acetaminophen (*Crx) 5-325 Mg Tablet PO 1 tab Q6H PRN Administration Pain Rated 4-6 Docusate Sodium 100 mg 12/07/24 01:57 Docusate Sodium 100 Mg Capsule PO Q12H PRN Constipation Fentanyl Citrate 25 mcg 12/07/24 07:22 Fentanyl Citrate Inj (*Crx) 100 Mcg/2 Ml Vial IV PUSH Q2M PRN Pain Ferrous Sulfate 325 mg 12/07/24 08:00 12/08/24 17:40 Ferrous Sulfate [address] PO 325 mg BIDWM MIROSLAVA Administration Folic Acid 1 mg 12/07/24 09:00 12/08/24 09:10 Folic Acid 1 Mg Tablet PO 1 mg DAILY MIROSLAVA Administration Heparin Sodium (Beef Lung) 50 units 12/08/24 09:00 Heparin Flush 50 Units/5 Ml Syringe IV PUSH QAM MIROSLAVA Heparin Sodium (Beef Lung) 50 units 12/07/24 17:29 Heparin Flush 50 Units/5 Ml Syringe IV PUSH PRN PRN after intermittent infusion Heparin Sodium (Beef Lung) 50 units 12/07/24 17:29 Heparin Flush 50 Units/5 Ml Syringe IV PUSH PRN PRN after blood draws Heparin Sodium (Porcine) 500 units 12/07/24 17:29 Heparin Sodium Lock Flush 500 Units/5 Ml Syringe IV PUSH PRN PRN see comments below Hydromorphone HCl 1 mg 12/07/24 04:07 12/09/24 06:36 Hydromorphone Hcl Inj (*Crx) 1 Mg/Ml Syr IV PUSH 1 mg Q3H PRN Administration Breakthrough Pain Ceftriaxone Sodium 2 gm in 100 mls @ 200 mls/hr 12/08/24 02:00 12/09/24 02:54 Rocephin 2 Gm/Ns 100 Ml IVPB 200 mls/hr Q24H MIROSLAVA Administration Vancomycin HCl 1,000 mg in 250 mls @ 250 mls/hr 12/08/24 14:00 12/08/24 14:12 Vancomycin 1,000 Mg/Ns 250 Ml IVPB 250 mls/hr Q18H MIROSLAVA Administration Lidocaine 1 patch 12/07/24 09:00 12/08/24 09:11 Lidocaine 5% Patch TRANSDERM 1 patch DAILY MIROSLAVA Administration Magnesium Oxide 200 mg 12/07/24 12:20 12/08/24 09:10 Magnesium Oxide 200 Mg Tablet PO 200 mg DAILY MIROSLAVA Administration Menthol/Methyl Salicylate 1 applic 12/07/24 04:35 Menthol 10% / Methyl Salicylate 15% 57 Gm Tube TOPICAL BID PRN Muscle/Joint Pain Metoprolol Succinate 25 mg 12/07/24 09:00 12/08/24 09:09 Metoprolol Succinate Ext Rel 25 Mg Tabcr PO 25 mg QAM MIROSLAVA Administration Ondansetron HCl 4 mg 12/06/24 22:00 Ondansetron Inj 4 Mg/2 Ml Vial IV PUSH Q4H PRN Nausea Ondansetron HCl 4 mg 12/07/24 07:22 Ondansetron Inj 4 Mg/2 Ml Vial IV PUSH ONCE PRN Nausea Polyethylene Glycol 17 gm 12/07/24 09:00 12/08/24 09:11 Polyethylene Glycol 3350 17 Gm Powd.Pack PO 17 gm DAILY MIROSLAVA Administration Sodium Chloride 1 spray 12/07/24 04:39 Saline 0.65% Reese Soln 44 Ml Btl NASAL Q6HR PRN Congestion Sodium Chloride 10 ml 12/07/24 22:00 12/09/24 06:36 Central Line Flush IV PUSH 10 ml Q8HR MIROSLAVA Administration Radiology Results: ITS Impressions Cervical Spine X-Ray 12/06/24 13:20 IMPRESSION: 1. Moderate cervical spondylosis. 2. Anterior fusion procedure from C5 to C7. Knee X-Ray 12/06/24 13:21 IMPRESSION: 1. Moderate lateral and patellofemoral compartment osteoarthritis with large knee joint effusion. No evident acute osseous abnormality. Chest X-Ray 12/06/24 22:16 IMPRESSION: No acute cardiopulmonary process. Abdomen/Pelvis CT 12/08/24 17:23 IMPRESSION: Decreased blood pool density as can be seen with anemia. Mild urinary bladder wall thickening, correlate with urinalysis. Mild mesenteric and body wall edema. Labs Labs: Laboratory Results - last 24 hr 12/07/24 12/07/24 12/08/24 05:25 05:25 04:07 WBC RBC Hgb Hct MCV MCH MCHC RDW Plt Count MPV Immature Gran % (Auto) Neut % (Auto) Lymph % (Auto) [place] % (Auto) Eos % (Auto) Baso % (Auto) Lymph # (Auto) [place] # (Auto) Eos # (Auto) Baso # (Auto) Abs Immat Gran (auto) Absolute Neuts (auto) Absolute Nucleated RBC Nucleated RBC % Platelet Estimate Hypochromasia Anisocytosis Schistocytes Sodium Potassium Chloride Carbon Dioxide Anion Gap BUN Creatinine Estim Creat Clear Calc Estimated GFR Glucose Calcium Total Bilirubin AST ALT Alkaline Phosphatase C-Reactive Protein 15.8 H Total Protein Albumin Vancomycin Trough Blood Type A Positive Antibody Screen Positive Antibody Identification Anti-E Anti-[place] Antigen Identification TNP DAVIAN, IgG Interpret Positive DAVIAN, Poly Interpret TNP DAVIAN, Complement Interp TNP Enhanced Crossmatch See Detail 12/08/24 12/08/24 12/09/24 12:28 14:11 05:40 WBC 7.6 RBC 2.09 L Hgb 5.8 L* 5.9 L* Hct 19.1 L* 19.7 L* MCV 94.3 MCH 28.2 MCHC 29.9 L RDW 16.4 H Plt Count 357 MPV 9.2 Immature Gran % (Auto) 1.2 H Neut % (Auto) 61.9 Lymph % (Auto) 19.1 [place] % (Auto) 6.7 Eos % (Auto) 10.6 H Baso % (Auto) 0.5 Lymph # (Auto) 1.45 [place] # (Auto) 0.5 Eos # (Auto) 0.8 H Baso # (Auto) 0.0 Abs Immat Gran (auto) 0.09 H Absolute Neuts (auto) 4.7 Absolute Nucleated RBC 0.000 Nucleated RBC % 0.0 Platelet Estimate Adequate Hypochromasia 2+ Anisocytosis 1+ Schistocytes None seen Sodium Potassium Chloride Carbon Dioxide Anion Gap BUN Creatinine Estim Creat Clear Calc Estimated GFR Glucose Calcium Total Bilirubin AST ALT Alkaline Phosphatase C-Reactive Protein Total Protein Albumin Vancomycin Trough 15.1 Blood Type Antibody Screen Antibody Identification Antigen Identification DAVIAN, IgG Interpret DAVIAN, Poly Interpret DAVIAN, Complement Interp Enhanced Crossmatch 12/09/24 05:41 WBC RBC Hgb Hct MCV MCH MCHC RDW Plt Count MPV Immature Gran % (Auto) Neut % (Auto) Lymph % (Auto) [place] % (Auto) Eos % (Auto) Baso % (Auto) Lymph # (Auto) [place] # (Auto) Eos # (Auto) Baso # (Auto) Abs Immat Gran (auto) Absolute Neuts (auto) Absolute Nucleated RBC Nucleated RBC % Platelet Estimate Hypochromasia Anisocytosis Schistocytes Sodium 137 Potassium 3.8 Chloride 107 Carbon Dioxide 28 Anion Gap 2 L BUN 17 Creatinine 0.59 L Estim Creat Clear Calc 55 Estimated GFR > 60 Glucose 104 Calcium 7.9 L Total Bilirubin 0.3 AST 22 ALT 6 Alkaline Phosphatase 77 C-Reactive Protein Total Protein 7.0 Albumin 2.1 L Vancomycin Trough Blood Type Antibody Screen Antibody Identification Antigen Identification DAVIAN, IgG Interpret DAVIAN, Poly Interpret DAVIAN, Complement Interp Enhanced Crossmatch
--- NOTE | 2024-12-09 07:59 | PCOTNOTE ---
Hold OT evaluation due to 5.9 hemoglobin. Will continue to follow.
[2024-12-09] MEDS: VANCOMYCIN 1,000 MG/NS 250 ML 1,000 MG/250 ML BAG 250 MG IVPB (08:42)
[2024-12-09] MEDS: polyethylene glycoL 3350 17 GM POWD.PACK PO (08:43)
[2024-12-09] MEDS: MAGNESIUM OXIDE 200 MG TABLET PO (08:43)
[2024-12-09] MEDS: FOLIC ACID 1 MG TABLET PO (08:43)
[2024-12-09] MEDS: LIDOCAINE 5% PATCH 1 PATCH TRANSDERM (08:43)
[2024-12-09] MEDS: FERROUS SULFATE 325 MG TABLET DR PO ×2 (08:43→18:05)
[2024-12-09] MEDS: METOPROLOL SUCCINATE EXT REL 25 MG TABCR PO (08:43)
--- NOTE | 2024-12-09 08:45 | PCPTNOTE ---
HOLD PT evaluation, due to low hemoglobin.
--- NOTE | 2024-12-09 08:49 | P.PNIM_ITS ---
Progress Note: A&P Assessment and Plan (1) Septic joint of right knee joint: Qualifiers: Septic arthritis organism: due to unspecified organism Qualified Code(s): M00.9 - Pyogenic arthritis, unspecified Code(s): M00.9 - Pyogenic arthritis, unspecified Status: Acute Assessment and Plan: * Patient had a right knee arthroscopy with irrigation and debridement this morning. Patient rates pain in her right knee a 6 , constant, and aching. * Knee fluid sent for culture. * Orthopedic following. * Blood cultures no growth to date. * Patient was receiving Ceftriaxone 2 gram IVPB daily and Vancomycin 1,000 mg IVPB q 18, these were discontinued today (12/09/24). * Patient started on oral Cefuroxime Axetil 500 mg PO q 12 and Bactrim DS 1 tab PO q 12 on 12/09/24. (2) Anemia: Code(s): D64.9 - Anemia, unspecified Status: Acute Assessment and Plan: * H&H 5.9/19.7 this morning. 2 units of PRBC's ordered. * Discussed with patient that I spoke with the blood bank, they stated that [facility] wants the blood to be clear of her antibodies and AHG phase compatible. The blood they have available meets both of those criteria with minimal chance of a reaction. Patient agreeable to receive the blood. * Stool for occult blood. * Abdominal pelvis CT without contrast: IMPRESSION: Decreased blood pool density as can be seen with anemia. Mild urinary bladder wall thickening, correlate with urinalysis. Mild mesenteric and body wall edema * Monitor labs. * Hematology consult. (3) Hypertension: Qualifiers: Hypertension type: primary hypertension Qualified Code(s): I10 - Essential (primary) hypertension Code(s): I10 - Essential (primary) hypertension Status: Acute Assessment and Plan: * Metoprolol 25 mg PO daily. * Blood pressure 145/80 today. (4) Rheumatoid arthritis: Qualifiers: Rheumatoid arthritis location: unspecified site Rheumatoid factor presence: unspecified presence Qualified Code(s): M06.9 - Rheumatoid arthritis, unspecified Code(s): M06.9 - Rheumatoid arthritis, unspecified Status: Acute Assessment and Plan: * She also could have a component of acute rheumatoid flare. If we are not concerned about septic arthritis I would consider placing the patient on some steroid therapy to help with her level of discomfort. * Given the concern for acute infection I will hold off on this and will continue p.r.n. pain medications with a [place] however will increase the dose 10/325 q.4 hours. The wall is change morphine to Dilaudid 1 mg q 3 hours as needed for breakthrough pain. * PT/OT * Will also provide pain relief with topical analgesics including menthol creams and lidocaine patch. Subjective Date/time seen: 12/09/24 08:49 Interval history: Patient lying in bed. Patient had a right knee arthroscopy with irrigation and debridement on 12/07/24. Patient rates pain in her right knee a 6 , constant, and aching. Patient denies chest pain, palpitations, headache, dizziness, nausea, or vomiting. Discussed with patient that I spoke with the blood bank, they stated that [facility] wants the blood to be clear of her antib odies and AHG phase compatible. The blood they have available meets both of those criteria with minimal chance of a reaction. Patient agreeable to receive the blood. Review of Systems Review of Systems: All systems reviewed & are unremarkable except as noted in HPI and below Objective Data Vital Signs Vital Signs: Vital Signs - 24 hr 12/08/24 09:09 12/08/24 09:10 12/08/24 11:00 Temperature 98.3 F Pulse Rate 76 88 Respiratory Rate 16 Blood Pressure 114/56 L Pulse Oximetry 100 100 Oxygen Delivery Room Air 12/08/24 14:23 12/08/24 17:58 12/08/24 20:00 Temperature 98.3 F 97.8 F Pulse Rate 82 80 Respiratory Rate 16 16 Blood Pressure 115/65 115/70 Pulse Oximetry 100 99 Oxygen Delivery Room Air 12/08/24 23:33 12/09/24 06:00 12/09/24 08:43 Temperature 97.0 F L 97.2 F L Pulse Rate 82 81 86 Respiratory Rate 20 20 Blood Pressure 132/63 154/77 H Pulse Oximetry 100 100 Oxygen Delivery Intake/Output Intake/Output: Intake & Output 12/06/24 12/07/24 12/08/24 12/09/24 23:59 23:59 23:59 23:59 Intake Total 1300 2540 300 Output Total 300 650 500 Balance 1000 1890 -200 Meds/Results Medications: Active Medications Generic Name Dose Route Start Last Admin Trade Name Freq PRN Reason Stop Dose Admin Acetaminophen 650 mg 12/06/24 22:00 Acetaminophen 325 Mg Tablet PO Q4H PRN Mild Pain (1-3) or Fever Hydrocodone Bitart/Acetaminophen 1 tab 12/07/24 10:05 12/08/24 17:42 Hydrocodone/Acetaminophen (*Crx) 5-325 Mg Tablet PO 1 tab Q6H PRN Administration Pain Rated 4-6 Docusate Sodium 100 mg 12/07/24 01:57 Docusate Sodium 100 Mg Capsule PO Q12H PRN Constipation Fentanyl Citrate 25 mcg 12/07/24 07:22 Fentanyl Citrate Inj (*Crx) 100 Mcg/2 Ml Vial IV PUSH Q2M PRN Pain Ferrous Sulfate 325 mg 12/07/24 08:00 12/09/24 08:43 Ferrous Sulfate [address] PO 325 mg BIDWM MIROSLAVA Administration Folic Acid 1 mg 12/07/24 09:00 12/09/24 08:43 Folic Acid 1 Mg Tablet PO 1 mg DAILY MIROSLAVA Administration Heparin Sodium (Beef Lung) 50 units 12/08/24 09:00 Heparin Flush 50 Units/5 Ml Syringe IV PUSH QAM MIROSLAVA Heparin Sodium (Beef Lung) 50 units 12/07/24 17:29 Heparin Flush 50 Units/5 Ml Syringe IV PUSH PRN PRN after intermittent infusion Heparin Sodium (Beef Lung) 50 units 12/07/24 17:29 Heparin Flush 50 Units/5 Ml Syringe IV PUSH PRN PRN after blood draws Heparin Sodium (Porcine) 500 units 12/07/24 17:29 Heparin Sodium Lock Flush 500 Units/5 Ml Syringe IV PUSH PRN PRN see comments below Hydromorphone HCl 1 mg 12/07/24 04:07 12/09/24 06:36 Hydromorphone Hcl Inj (*Crx) 1 Mg/Ml Syr IV PUSH 1 mg Q3H PRN Administration Breakthrough Pain Ceftriaxone Sodium 2 gm in 100 mls @ 200 mls/hr 12/08/24 02:00 12/09/24 02:54 Rocephin 2 Gm/Ns 100 Ml IVPB 200 mls/hr Q24H MIROSLAVA Administration Vancomycin HCl 1,000 mg in 250 mls @ 250 mls/hr 12/08/24 14:00 12/09/24 08:42 Vancomycin 1,000 Mg/Ns 250 Ml IVPB 250 mls/hr Q18H MIROSLAVA Administration Lidocaine 1 patch 12/07/24 09:00 12/09/24 08:43 Lidocaine 5% Patch TRANSDERM 1 patch DAILY MIROSLAVA Administration Magnesium Oxide 200 mg 12/07/24 12:20 12/09/24 08:43 Magnesium Oxide 200 Mg Tablet PO 200 mg DAILY MIROSLAVA Administration Menthol/Methyl Salicylate 1 applic 12/07/24 04:35 Menthol 10% / Methyl Salicylate 15% 57 Gm Tube TOPICAL BID PRN Muscle/Joint Pain Metoprolol Succinate 25 mg 12/07/24 09:00 12/09/24 08:43 Metoprolol Succinate Ext Rel 25 Mg Tabcr PO 25 mg QAM MIROSLAVA Administration Ondansetron HCl 4 mg 12/06/24 22:00 Ondansetron Inj 4 Mg/2 Ml Vial IV PUSH Q4H PRN Nausea Ondansetron HCl 4 mg 12/07/24 07:22 Ondansetron Inj 4 Mg/2 Ml Vial IV PUSH ONCE PRN Nausea Polyethylene Glycol 17 gm 12/07/24 09:00 12/09/24 08:43 Polyethylene Glycol 3350 17 Gm Powd.Pack PO 17 gm DAILY MIROSLAVA Administration Sodium Chloride 1 spray 12/07/24 04:39 Saline 0.65% Reese Soln 44 Ml Btl NASAL Q6HR PRN Congestion Sodium Chloride 10 ml 12/07/24 22:00 12/09/24 06:36 Central Line Flush IV PUSH 10 ml Q8HR MIROSLAVA Administration Radiology Results: ITS Impressions Cervical Spine X-Ray 12/06/24 13:20 IMPRESSION: 1. Moderate cervical spondylosis. 2. Anterior fusion procedure from C5 to C7. Knee X-Ray 12/06/24 13:21 IMPRESSION: 1. Moderate lateral and patellofemoral compartment osteoarthritis with large knee joint effusion. No evident acute osseous abnormality. Chest X-Ray 12/06/24 22:16 IMPRESSION: No acute cardiopulmonary process. Abdomen/Pelvis CT 12/08/24 17:23 IMPRESSION: Decreased blood pool density as can be seen with anemia. Mild urinary bladder wall thickening, correlate with urinalysis. Mild mesenteric and body wall edema. Labs Labs: Laboratory Results - last 24 hr 12/07/24 12/07/24 12/08/24 05:25 05:25 04:07 WBC RBC Hgb Hct MCV MCH MCHC RDW Plt Count MPV Immature Gran % (Auto) Neut % (Auto) Lymph % (Auto) [place] % (Auto) Eos % (Auto) Baso % (Auto) Lymph # (Auto) [place] # (Auto) Eos # (Auto) Baso # (Auto) Abs Immat Gran (auto) Absolute Neuts (auto) Absolute Nucleated RBC Nucleated RBC % Platelet Estimate Hypochromasia Anisocytosis Schistocytes Sodium Potassium Chloride Carbon Dioxide Anion Gap BUN Creatinine Estim Creat Clear Calc Estimated GFR Glucose Calcium Total Bilirubin AST ALT Alkaline Phosphatase C-Reactive Protein 15.8 H Total Protein Albumin Vancomycin Trough Blood Type A Positive Antibody Screen Positive Antibody Identification Anti-E Anti-[place] Antigen Identification TNP DAVIAN, IgG Interpret Positive DAVIAN, Poly Interpret TNP DAVIAN, Complement Interp TNP Enhanced Crossmatch See Detail 12/08/24 12/08/24 12/09/24 12:28 14:11 05:40 WBC 7.6 RBC 2.09 L Hgb 5.8 L* 5.9 L* Hct 19.1 L* 19.7 L* MCV 94.3 MCH 28.2 MCHC 29.9 L RDW 16.4 H Plt Count 357 MPV 9.2 Immature Gran % (Auto) 1.2 H Neut % (Auto) 61.9 Lymph % (Auto) 19.1 [place] % (Auto) 6.7 Eos % (Auto) 10.6 H Baso % (Auto) 0.5 Lymph # (Auto) 1.45 [place] # (Auto) 0.5 Eos # (Auto) 0.8 H Baso # (Auto) 0.0 Abs Immat Gran (auto) 0.09 H Absolute Neuts (auto) 4.7 Absolute Nucleated RBC 0.000 Nucleated RBC % 0.0 Platelet Estimate Adequate Hypochromasia 2+ Anisocytosis 1+ Schistocytes None seen Sodium Potassium Chloride Carbon Dioxide Anion Gap BUN Creatinine Estim Creat Clear Calc Estimated GFR Glucose Calcium Total Bilirubin AST ALT Alkaline Phosphatase C-Reactive Protein Total Protein Albumin Vancomycin Trough 15.1 Blood Type Antibody Screen Antibody Identification Antigen Identification DAVIAN, IgG Interpret DAVIAN, Poly Interpret DAVIAN, Complement Interp Enhanced Crossmatch 12/09/24 05:41 WBC RBC Hgb Hct MCV MCH MCHC RDW Plt Count MPV Immature Gran % (Auto) Neut % (Auto) Lymph % (Auto) [place] % (Auto) Eos % (Auto) Baso % (Auto) Lymph # (Auto) [place] # (Auto) Eos # (Auto) Baso # (Auto) Abs Immat Gran (auto) Absolute Neuts (auto) Absolute Nucleated RBC Nucleated RBC % Platelet Estimate Hypochromasia Anisocytosis Schistocytes Sodium 137 Potassium 3.8 Chloride 107 Carbon Dioxide 28 Anion Gap 2 L BUN 17 Creatinine 0.59 L Estim Creat Clear Calc 55 Estimated GFR > 60 Glucose 104 Calcium 7.9 L Total Bilirubin 0.3 AST 22 ALT 6 Alkaline Phosphatase 77 C-Reactive Protein Total Protein 7.0 Albumin 2.1 L Vancomycin Trough Blood Type Antibody Screen Antibody Identification Antigen Identification DAVIAN, IgG Interpret DAVIAN, Poly Interpret DAVIAN, Complement Interp Enhanced Crossmatch Quality VTE Prophylaxis VTE prophylaxis: mechanical ordered (SCDs)
--- NOTE | 2024-12-09 09:11 | P.CDI_ITS ---
CDI Query Clarification Request Please clarify the status of the patient's documented anemia, if known. Clinical Indicators: Hgb 12/07 8.2, 12/08 5.8 after procedure. Treatment: 2 untis PRBC ordered, IV fluids stopped. Anemia has been documented, please specify type of anemia if known: * Acute blood loss anemia * Chronic blood loss anemia * Anemia of chronic disease (CKD,neoplasm, other) * Aplastic anemia * Dilutional anemia * Iron Deficiency anemia * Pernicious anemia * Nutritional anemia (e.g., scorbutic anemia) * Other anemia * Unknown/unable to determine
--- NOTE | 2024-12-09 09:11 | WPDCDIQUERY2 ---
CDI Query Clarification Request Please clarify the status of the patient's documented anemia, if known. Clinical Indicators: Hgb 12/07 8.2, 12/08 5.8 after procedure. Treatment: 2 untis PRBC ordered, IV fluids stopped. Anemia has been documented, please specify type of anemia if known: Acute blood loss anemia Chronic blood loss anemia Anemia of chronic disease (CKD,neoplasm, other) Aplastic anemia Dilutional anemia Iron Deficiency anemia Pernicious anemia Nutritional anemia (e.g., scorbutic anemia) Other anemia Unknown/unable to determine
[2024-12-09] MEDS: SODIUM CHLORIDE 0.9% IV 250 ML 30 ML IV CONT (10:36)
--- NOTE | 2024-12-09 13:41 | P.CDI_ITS ---
CDI Query Clarification Request BMI: 19.2 Nutritional Diagnostic Statement: Please refer to the comprehensive nutrition assessment for further information. If you agree with diagnosis of Severe Protein Calorie Malnutrition as related to inadequate protein energy intake as evidenced by weight loss of 28 ibs (20%) in 6 months, severe muscle wasting (temporalis) and severe fat loss loss (orbital fat pads). Please specify severity if known: * Mild * Moderate * Severe * Other/Unknown <Malathi Velarde RN - Last Filed: 12/09/24 13:44> Clarified Diagnosis Clarified Diagnosis: Severe Protein Calorie Malnutrition. <Tabatha Noguera APRN - Last Filed: 12/09/24 14:01>
--- NOTE | 2024-12-09 18:51 | WPDONCCN ---
Assessment and Plan Assessment and plan (1) Anemia: Code(s): D64.9 - Anemia, unspecified Status: Acute Assessment and Plan: This is the 74-year-old female with history of rheumatoid arthritis presented with septic arthritis of the right knee. Labs showed hemoglobin of 5.8. She denies any bleeding and bruising. She has no previous history of stomach surgeries. Denies being a vegetarian. Her rheumatoid arthritis is poorly controlled. Patient has a history of G-tube placement in November 2023 following her poor appetite but it fell off in October 2024. Patient underwent arthroscopy with irrigation and debridement of the knee on December 07, 2024. Her anemia is likely anemia of chronic disease with rheumatoid arthritis along with possibility of nutritional deficiencies. I will check iron studies vitamin B12 and folic acid level. Will check LDH and Tatyana test as well. There is also possibility of hemolytic anemia and will order the appropriate workup. Bone marrow biopsy is not needed at this time. She has been provided with my office information for follow-up and will make the decision as an outpatient. We will transfuse her on a as needed basis at this time. I have answered all the questions the patient and the satisfaction. HPI Data of Consult Date/Time: 12/09/24 18:51 Requesting Physician: Lien Anders DO Primary Care Provider: UNKNOWN,DOCTOR Consult Narrative Narrative: Tiesha Stock is a 74 year old female with history of chronic anemia, rheumatoid arthritis and septic arthritis of the right knee came into the ER with 3 days of generalized weakness and right knee pain and swelling. She denies any bleeding including melena hematochezia. She denies being a vegetarian. She has no previous history of gastric bypass surgery. Patient used to have G-tube that had fallen off on November 09, 2024. In June patient have EGD and colonoscopy done for anemia that came back unremarkable. She has been complaining of bilateral hand arthralgia. Labs showed hemoglobin of 5.8. Review of Systems Review of Systems: Review of system as per HPI otherwise negative [facility] Past Medical History Medical History (Updated 12/07/24 @ 08:34 by Lien Anders DO) DVT (deep venous thrombosis) No longer on anticoagulation Chronic blood loss anemia History of seizure (~11/2023) Following surgery for septic arthritis. Osteopenia Moderate protein malnutrition Diastolic dysfunction Echo 04/2024 demonstrated EF of 60 65%, mildly increased left ventricular wall thickness, grade 1 diastolic dysfunction, right ventricular function normal, atrial septum appears aneurysmal, moderate aortic valve calcification, mild mitral valve regurgitation, mild tricuspid valve regurgitation Occult blood in stools Hyperlipidemia Hypertension Rheumatoid arthritis Surgical History Surgical History (Updated 12/07/24 @ 02:10 by Lien Anders DO) History of colonoscopy (07/17/24) Internal hemorrhoids, diverticulosis Normal esophagogastroduodenoscopy (EGD) (07/17/24) PEG (percutaneous endoscopic gastrostomy) status Place at [facility] in January 2024 due to dysphagia, remains in place due to moderate to severe protein calorie malnutrition with approximately 50 lb weight loss since August 2023. History of total left knee replacement Port-A-Cath in place Left chest wall H/O right knee surgery (~11/2023) Washout due to septic arthritis November 2023 H/O: hysterectomy Family History Family History Father , black lung disease No problems noted. Mother , from [place]JI gangrene. No problems noted. Sibling Acute myocardial infarction Prednisolone adverse reaction Sibling No problems noted. Social History Social History (Updated 12/07/24 @ 08:35 by Lien Anders DO) Social History: Code status: DNR/DNI (per patient request) she states that she does not think that her would agree with this but this is her desire. 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 [employer] Gender identity (if verbalized by the patient): Male Spiritual care concerns: No Meds Home Medications and Allergies Home Medications ?Medication ?Instructions ?Recorded ?Confirmed ?Type ferrous sulfate 325 mg (65 mg 325 mg PO BIDWM #60 tabs 06/15/24 01/18/25 Rx iron) tablet,delayed release folic acid 1 mg tablet 1 mg PO DAILY #30 tabs 05/04/24 12/07/24 Rx polyethylene glycol 3350 17 17 g PO DAILY 07/09/24 12/07/24 History gram/dose oral powder (Miralax) magnesium 100 mg tablet 100 mg PO DAILY 07/13/24 12/07/24 History docusate sodium 100 mg capsule 100 mg PO Q12H PRN Constipation 07/22/24 12/07/24 Rx #30 caps metoprolol succinate 25 mg 25 mg PO QAM #60 tabs 07/22/24 12/07/24 Rx tablet,extended release 24 hr (Toprol XL) tramadol 25 mg tablet 25 mg PO BID PRN pain (scale score 12/07/24 12/07/24 History 4-6) Allergies Allergy/AdvReac Type Severity Reaction Status Date / Time amlodipine Allergy Severe Hives Verified 07/12/24 13:20 banana Allergy Severe throat Verified 07/12/24 13:20 Itching latex Allergy Severe Redness of Verified 07/12/24 13:20 Skin, baker lisinopril Allergy Severe Difficulty Verified 07/12/24 13:20 Breathing Penicillins Allergy Severe Rash Verified 12/09/24 08:20 pseudoephedrine Allergy Severe Difficulty Verified 07/12/24 13:20 Breathing tetracycline Allergy Severe Difficulty Verified 07/12/24 13:20 Breathing tree nut Allergy Severe Other Verified 07/12/24 13:20 dextromethorphan Allergy Intermediate Rash Verified 07/12/24 13:20 prednisone Allergy Unknown Other Verified 07/12/24 13:20 acetaminophen AdvReac Intermediate Nausea and Verified 07/12/24 13:20 Vomiting aspirin AdvReac Intermediate Nausea and Verified 07/12/24 13:20 Vomiting Vital Signs Vital Signs - 24 hr 12/08/24 20:00 12/08/24 23:33 12/09/24 06:00 Temperature 36.1 C L 36.2 C L Pulse Rate 82 81 Respiratory Rate 20 20 Blood Pressure 132/63 154/77 H Pulse Oximetry 100 100 Oxygen Delivery Room Air 12/09/24 08:43 12/09/24 08:56 12/09/24 11:03 Temperature 36.3 C L Pulse Rate 86 75 Respiratory Rate 16 Blood Pressure 128/78 Pulse Oximetry 100 100 Oxygen Delivery Room Air 12/09/24 11:19 12/09/24 12:19 12/09/24 13:19 Temperature 36.5 C 36.4 C L 36.3 C L Pulse Rate 73 73 77 Respiratory Rate 16 16 16 Blood Pressure 124/63 145/80 H 128/72 Pulse Oximetry 100 100 100 Oxygen Delivery 12/09/24 13:44 12/09/24 14:27 12/09/24 14:42 Temperature 36.3 C L 36.2 C L 36.6 C Pulse Rate 77 79 75 Respiratory Rate 16 18 18 Blood Pressure 128/72 150/80 H 130/68 Pulse Oximetry 100 100 100 Oxygen Delivery 12/09/24 15:42 12/09/24 16:42 12/09/24 17:25 Temperature 36.3 C L 36.0 C L 36.2 C L Pulse Rate 76 74 75 Respiratory Rate 16 16 16 Blood Pressure 142/76 H 137/73 137/73 Pulse Oximetry 100 100 100 Oxygen Delivery Exam Narrative: Lungs are clear to auscultation bilaterally Cardiovascular regular rate rhythm no murmurs Extremities swelling in bilateral hands without any clubbing Abdomen soft nontender nondistended bowel sounds are positive Results Labs 12/09/24 05:40 12/09/24 05:41 Labs: Short CBC 12/09/24 Range/Units 05:40 WBC 7.6 (4.5-10.0) K/mm3 Hgb 5.9 L* (12.0-15.0) g/dL Hct 19.7 L* (37.0-47.0) % Plt Count 357 (150-375) k/mm3 BMP 12/09/24 05:41 Sodium 137 Potassium 3.8 Chloride 107 Carbon Dioxide 28 BUN 17 Creatinine 0.59 L Glucose 104 Calcium 7.9 L Liver Function 12/09/24 Range/Units 05:41 Total Bilirubin 0.3 (0.2-1.3) mg/dL AST 22 (14-36) U/L ALT 6 (6-35) U/L Alkaline Phosphatase 77 (38-126) U/L Albumin 2.1 L (3.5-5.1) g/dL
[2024-12-09] MEDS: cefuroxime axetiL 250 MG TABLET 500 MG PO (21:31)
[2024-12-09] MEDS: SULFAMETHOXAZOLE/TRIMETHOPRIM 800/160 MG DS TABLET 1 TAB PO (21:31)
[2024-12-09 21:36] LABS: Hematocrit 26.7 % (37.0-47.0); Hemoglobin 8.3 g/dL (12.0-15.0)
[2024-12-09 21:48] LABS: Lactate Dehydrogenase 152 U/L (120-246)
[2024-12-09 21:50] LABS: Iron 30 ug/dL (37-170)
[2024-12-09 21:59] LABS: Percent Iron Saturation 23 % (20-50)
[2024-12-10] MEDS: ONDANSETRON INJ 4 MG/2 ML VIAL IV PUSH (00:34)
[2024-12-10] MEDS: CENTRAL LINE FLUSH 10 ML IV PUSH ×3 (05:08→19:56)
[2024-12-10 06:00] VITALS: BP 169/84; PULSE 85; RESP 20; TEMP 36.4; O2SAT 100
[2024-12-10 06:12] LABS: Basophils Absolute Auto 0.1 K/mm3 (0.0-0.1); Basophils Percent Auto 0.5 % (0.2-1.2); Eosinophils Absolute Auto 0.7 K/mm3 (0-0.3); Eosinophils Percent Auto 7.3 % (0-4.4); Hematocrit 29.4 % (37.0-47.0); Hemoglobin 9.2 g/dL (12.0-15.0); Immature Granulocyte Absolute 0.11 K/mm3 (0.00-0.031); Immature Granulocyte Percent A 1.1 % (0-0.5); Lymphocytes Percent Auto 18.4 % (18.3-44.2); Mean Corpuscular HGB Conc 31.3 g/dl (32-36); Mean Corpuscular Hemoglobin 28.3 pg (26-34); Mean Corpuscular Volume 90.5 fl (80-100); Mean Platelet Volume 9.1 fl (7.4-10.4); Monocytes Absolute Auto 0.6 K/mm3 (0.1-0.6); Monocytes Percent Auto 6.3 % (2.6-8.5); Neutrophils Absolute Auto 6.5 K/mm3 (1.3-6.7); Neutrophils Percent Auto 66.4 % (45.5-73.1); Platelet Count Result 379 k/mm3 (150-375); Red Blood Count 3.25 M/mm3 (4.2-5.4); Red Cell Distribution Width 15.4 % (11.5-14.5); White Blood Count 9.8 K/mm3 (4.5-10.0)
[2024-12-10 06:28] LABS: Alanine Aminotransferase 6 U/L (6-35); Albumin Level 2.3 g/dL (3.5-5.1); Alkaline Phosphatase 88 U/L (38-126); Anion Gap 6 mmol/L (4-12); Aspartate Amino Transferase 22 U/L (14-36); Bilirubin,Total 0.7 mg/dL (0.2-1.3); Blood Urea Nitrogen 13 mg/dL (7-17); Calcium 8.1 mg/dL (8.4-10.2); Carbon Dioxide 26 mmol/L (22-30); Chloride 103 mmol/L (98-107); Estimated CRCL calculation 58 ml/min; Estimated Glomerular Filt Rate > 60; Glucose 105 mg/dL (65-110); Potassium 3.7 mmol/L (3.4-5.0); Sodium 135 mmol/L (137-145)
[2024-12-10 08:00] VITALS: PULSE 82; RESP 20; O2SAT 100
[2024-12-10 09:10] VITALS: PULSE 82
[2024-12-10] MEDS: METOPROLOL SUCCINATE EXT REL 25 MG TABCR PO (09:10)
[2024-12-10] MEDS: MAGNESIUM OXIDE 200 MG TABLET PO (09:12)
[2024-12-10] MEDS: polyethylene glycoL 3350 17 GM POWD.PACK PO (09:12)
[2024-12-10] MEDS: LIDOCAINE 5% PATCH 1 PATCH TRANSDERM (09:12)
[2024-12-10] MEDS: FOLIC ACID 1 MG TABLET PO (09:13)
[2024-12-10] MEDS: FERROUS SULFATE 325 MG TABLET DR PO ×2 (09:13→17:40)
--- NOTE | 2024-12-10 11:40 | P.PNIM_ITS ---
Progress Note: A&P Assessment and Plan (1) Septic joint of right knee joint: Qualifiers: Septic arthritis organism: due to unspecified organism Qualified Code(s): M00.9 - Pyogenic arthritis, unspecified Code(s): M00.9 - Pyogenic arthritis, unspecified Status: Acute Assessment and Plan: * Patient had a right knee arthroscopy with irrigation and debridement this morning. Patient rates pain in her right knee a 6 , constant, and aching. * Knee fluid sent for culture. * Orthopedic following. * Blood cultures no growth to date. * Patient was receiving Ceftriaxone 2 gram IVPB daily and Vancomycin 1,000 mg IVPB q 18, these were discontinued today (12/09/24). * Patient started on oral Cefuroxime Axetil 500 mg PO q 12 and Bactrim DS 1 tab PO q 12 on 12/09/24. * PT/OT (2) Anemia: Code(s): D64.9 - Anemia, unspecified Status: Acute Assessment and Plan: * H&H 5.9/19.7 on 12/09/24, 2 units of PRBC's given. Post H&H 9.2/29.4. * Discussed with patient that I spoke with the blood bank, they stated that [facility] wants the blood to be clear of her antibodies and AHG phase compatible. The blood they have available meets both of those criteria with minimal chance of a reaction. Patient agreeable to receive the blood. * Stool for occult blood. * Abdominal pelvis CT without contrast: IMPRESSION: Decreased blood pool density as can be seen with anemia. Mild urinary bladder wall thickening, correlate with urinalysis. Mild mesenteric and body wall edema * Monitor labs. * Hematology consulted. Labs ordered. Iron 30, TIBC 128, % saturation 23, Ferritin 880, LDH 152, Vitamin B12 pending, Folate pending. (3) Hypertension: Qualifiers: Hypertension type: primary hypertension Qualified Code(s): I10 - Essential (primary) hypertension Code(s): I10 - Essential (primary) hypertension Status: Acute Assessment and Plan: * Metoprolol 25 mg PO daily. * Blood pressure 169/84 today. (4) Rheumatoid arthritis: Qualifiers: Rheumatoid arthritis location: unspecified site Rheumatoid factor presence: unspecified presence Qualified Code(s): M06.9 - Rheumatoid arthritis, unspecified Code(s): M06.9 - Rheumatoid arthritis, unspecified Status: Acute Assessment and Plan: * She also could have a component of acute rheumatoid flare. If we are not concerned about septic arthritis I would consider placing the patient on some steroid therapy to help with her level of discomfort. * Given the concern for acute infection I will hold off on this and will continue p.r.n. pain medications with a [place] however will increase the dose 10/325 q.4 hours. The wall is change morphine to Dilaudid 1 mg q 3 hours as needed for breakthrough pain. * PT/OT * Will also provide pain relief with topical analgesics including menthol creams and lidocaine patch. Subjective Date/time seen: 12/10/24 11:40 Interval history: Patient reports pain in right knee is a 7 , constant, and aching. Patient reports that her right knee makes noises when she moves it. Patient reports pain in abdomen is a 5 , frequent, and aching. Patient denies chest pain, palpitations, headache, dizziness, nausea, or vomiting. Patient sitting up in chair. Review of Systems Review of Systems: All systems reviewed & are unremarkable except as noted in HPI and below Exam Const: General: no acute distress and uncomfortable Eyes: Sclera: sclerae normal Resp: Effort & Inspection: normal respiratory effort Auscultation: clear to auscultation bilaterally Cardio: Rate: regular rate Rhythm: regular rhythm GI: GI Palp: Yes Soft to palpation Auscultation: normal bowel sounds Neuro: Speech: normal speech Extrem: General: no pedal edema Psych: Mental Status: mental status grossly normal Affect: normal affect Objective Data Vital Signs Vital Signs: Vital Signs - 24 hr 12/09/24 12:19 12/09/24 13:19 12/09/24 13:44 Temperature 97.5 F L 97.4 F L 97.4 F L Pulse Rate 73 77 77 Respiratory Rate 16 16 16 Blood Pressure 145/80 H 128/72 128/72 Pulse Oximetry 100 100 100 Oxygen Delivery 12/09/24 14:27 12/09/24 14:42 12/09/24 15:42 Temperature 97.2 F L 97.8 F 97.4 F L Pulse Rate 79 75 76 Respiratory Rate 18 18 16 Blood Pressure 150/80 H 130/68 142/76 H Pulse Oximetry 100 100 100 Oxygen Delivery 12/09/24 16:42 12/09/24 17:25 12/09/24 20:00 Temperature 96.8 F L 97.2 F L Pulse Rate 74 75 Respiratory Rate 16 16 Blood Pressure 137/73 137/73 Pulse Oximetry 100 100 Oxygen Delivery Room Air 12/09/24 22:30 12/10/24 06:00 12/10/24 08:00 Temperature 98.2 F 97.5 F L Pulse Rate 75 85 82 Respiratory Rate 20 20 20 Blood Pressure 147/75 H 169/84 H Pulse Oximetry 99 100 100 Oxygen Delivery Room Air 12/10/24 09:10 Temperature Pulse Rate 82 Respiratory Rate Blood Pressure Pulse Oximetry Oxygen Delivery Intake/Output Intake/Output: Intake & Output 12/07/24 12/08/24 12/09/24 12/10/24 23:59 23:59 23:59 23:59 Intake Total 1300 2540 1957 640 Output Total 526 953 1045 1400 Balance 1000 1890 647 -760 Meds/Results Medications: Active Medications Generic Name Dose Route Start Last Admin Trade Name Freq PRN Reason Stop Dose Admin Acetaminophen 650 mg 12/06/24 22:00 Acetaminophen 325 Mg Tablet PO Q4H PRN Mild Pain (1-3) or Fever Hydrocodone Bitart/Acetaminophen 1 tab 12/07/24 10:05 12/08/24 17:42 Hydrocodone/Acetaminophen (*Crx) 5-325 Mg Tablet PO 1 tab Q6H PRN Administration Pain Rated 4-6 Cefuroxime Axetil 500 mg 12/09/24 21:00 12/09/24 21:31 Cefuroxime Axetil 250 Mg Tablet PO 01/17/25 23:59 500 mg Q12HR@1200,2100 MIROSLAVA Administration Docusate Sodium 100 mg 12/09/24 08:50 Docusate Sodium 100 Mg Capsule PO Q12H PRN Constipation Fentanyl Citrate 25 mcg 12/07/24 07:22 Fentanyl Citrate Inj (*Crx) 100 Mcg/2 Ml Vial IV PUSH Q2M PRN Pain Ferrous Sulfate 325 mg 12/07/24 08:00 12/10/24 09:13 Ferrous Sulfate [address] PO 325 mg BIDWM MIROSLAVA Administration Folic Acid 1 mg 12/07/24 09:00 12/10/24 09:13 Folic Acid 1 Mg Tablet PO 1 mg DAILY MIROSLAVA Administration Heparin Sodium (Beef Lung) 50 units 12/08/24 09:00 Heparin Flush 50 Units/5 Ml Syringe IV PUSH QAM MIROSLAVA Heparin Sodium (Beef Lung) 50 units 12/07/24 17:29 Heparin Flush 50 Units/5 Ml Syringe IV PUSH PRN PRN after intermittent infusion Heparin Sodium (Beef Lung) 50 units 12/07/24 17:29 Heparin Flush 50 Units/5 Ml Syringe IV PUSH PRN PRN after blood draws Heparin Sodium (Porcine) 500 units 12/07/24 17:29 Heparin Sodium Lock Flush 500 Units/5 Ml Syringe IV PUSH PRN PRN see comments below Hydromorphone HCl 1 mg 12/07/24 04:07 12/09/24 21:31 Hydromorphone Hcl Inj (*Crx) 1 Mg/Ml Syr IV PUSH 1 mg Q3H PRN Administration Breakthrough Pain Lidocaine 1 patch 12/07/24 09:00 12/10/24 09:12 Lidocaine 5% Patch TRANSDERM 1 patch DAILY MIROSLAVA Administration Magnesium Oxide 200 mg 12/07/24 12:20 12/10/24 09:12 Magnesium Oxide 200 Mg Tablet PO 200 mg DAILY MIROSLAVA Administration Menthol/Methyl Salicylate 1 applic 12/07/24 04:35 Menthol 10% / Methyl Salicylate 15% 57 Gm Tube TOPICAL BID PRN Muscle/Joint Pain Metoprolol Succinate 25 mg 12/07/24 09:00 12/10/24 09:10 Metoprolol Succinate Ext Rel 25 Mg Tabcr PO 25 mg QAM MIROSLAVA Administration Ondansetron HCl 4 mg 12/06/24 22:00 12/10/24 00:34 Ondansetron Inj 4 Mg/2 Ml Vial IV PUSH 4 mg Q4H PRN Administration Nausea Ondansetron HCl 4 mg 12/07/24 07:22 Ondansetron Inj 4 Mg/2 Ml Vial IV PUSH ONCE PRN Nausea Polyethylene Glycol 17 gm 12/07/24 09:00 12/10/24 09:12 Polyethylene Glycol 3350 17 Gm Powd.Pack PO 17 gm DAILY MIROSLAVA Administration Sodium Chloride 1 spray 12/07/24 04:39 Saline 0.65% Reese Soln 44 Ml Btl NASAL Q6HR PRN Congestion Sodium Chloride 10 ml 12/07/24 22:00 12/10/24 05:08 Central Line Flush IV PUSH 10 ml Q8HR MIROSLAVA Administration Trimethoprim/Sulfamethoxazole 1 tab 12/09/24 21:00 12/09/24 21:31 Sulfamethoxazole/Trimethoprim 800/160 Mg Ds Tablet PO 01/17/25 23:59 1 tab Q12HR MIROSLAVA Administration Radiology Results: ITS Impressions Cervical Spine X-Ray 12/06/24 13:20 IMPRESSION: 1. Moderate cervical spondylosis. 2. Anterior fusion procedure from C5 to C7. Knee X-Ray 12/06/24 13:21 IMPRESSION: 1. Moderate lateral and patellofemoral compartment osteoarthritis with large knee joint effusion. No evident acute osseous abnormality. Chest X-Ray 12/06/24 22:16 IMPRESSION: No acute cardiopulmonary process. Abdomen/Pelvis CT 12/08/24 17:23 IMPRESSION: Decreased blood pool density as can be seen with anemia. Mild urinary bladder wall thickening, correlate with urinalysis. Mild mesenteric and body wall edema. Labs Labs: Laboratory Results - last 24 hr 12/07/24 12/07/24 12/09/24 05:25 05:25 21:26 WBC RBC Hgb 8.3 L Hct 26.7 L MCV MCH MCHC RDW Plt Count MPV Immature Gran % (Auto) Neut % (Auto) Lymph % (Auto) [place] % (Auto) Eos % (Auto) Baso % (Auto) Lymph # (Auto) [place] # (Auto) Eos # (Auto) Baso # (Auto) Abs Immat Gran (auto) Absolute Neuts (auto) Absolute Nucleated RBC Nucleated RBC % Sodium Potassium Chloride Carbon Dioxide Anion Gap BUN Creatinine Estim Creat Clear Calc Estimated GFR Glucose Calcium Iron 30 L TIBC 128 L % Saturation 23 Ferritin 880.00 H Total Bilirubin AST ALT Alkaline Phosphatase Lactate Dehydrogenase 152 Total Protein Albumin Blood Type A Positive Antibody Screen Positive Antibody Identification Anti-E Anti-Daysi Antigen Identification TNP DAVIAN, IgG Interpret Positive DAVIAN, Poly Interpret TNP DAVIAN, Complement Interp TNP Enhanced Crossmatch See Detail 12/10/24 05:54 WBC 9.8 RBC 3.25 L Hgb 9.2 L Hct 29.4 L MCV 90.5 MCH 28.3 MCHC 31.3 L RDW 15.4 H Plt Count 379 H MPV 9.1 Immature Gran % (Auto) 1.1 H Neut % (Auto) 66.4 Lymph % (Auto) 18.4 [place] % (Auto) 6.3 Eos % (Auto) 7.3 H Baso % (Auto) 0.5 Lymph # (Auto) 1.80 [place] # (Auto) 0.6 Eos # (Auto) 0.7 H Baso # (Auto) 0.1 Abs Immat Gran (auto) 0.11 H Absolute Neuts (auto) 6.5 Absolute Nucleated RBC 0.000 Nucleated RBC % 0.0 Sodium 135 L Potassium 3.7 Chloride 103 Carbon Dioxide 26 Anion Gap 6 BUN 13 Creatinine 0.56 L Estim Creat Clear Calc 58 Estimated GFR > 60 Glucose 105 Calcium 8.1 L Iron TIBC % Saturation Ferritin Total Bilirubin 0.7 AST 22 ALT 6 Alkaline Phosphatase 88 Lactate Dehydrogenase Total Protein 7.0 Albumin 2.3 L Blood Type Antibody Screen Antibody Identification Antigen Identification DAVIAN, IgG Interpret DAVIAN, Poly Interpret DAVIAN, Complement Interp Enhanced Crossmatch Quality VTE Prophylaxis VTE prophylaxis: mechanical ordered (SCDs)
[2024-12-10] MEDS: ACETAMINOPHEN 325 MG TABLET 650 MG PO (12:03)
[2024-12-10] MEDS: cefuroxime axetiL 250 MG TABLET 500 MG PO ×2 (12:04→19:53)
[2024-12-10 19:23] VITALS: O2SAT 99
[2024-12-10] MEDS: CLINDAMYCIN HCL 150 MG CAP 600 MG PO (19:55)
[2024-12-10] MEDS: HYDROcodone/acetaminophen (*CRX) 5-325 MG TABLET 1 TAB PO (22:04)
[2024-12-10 22:25] VITALS: BP 162/82; PULSE 77; RESP 20; TEMP 36.5; O2SAT 99
[2024-12-11 00:24] LABS: Folic Acid 11.4 ng/mL (2.76->20)
[2024-12-11 05:38] LABS: Basophils Absolute Auto 0.1 K/mm3 (0.0-0.1); Basophils Percent Auto 0.5 % (0.2-1.2); Eosinophils Absolute Auto 0.5 K/mm3 (0-0.3); Eosinophils Percent Auto 5.6 % (0-4.4); Hematocrit 27.2 % (37.0-47.0); Hemoglobin 8.6 g/dL (12.0-15.0); Immature Granulocyte Absolute 0.12 K/mm3 (0.00-0.031); Immature Granulocyte Percent A 1.3 % (0-0.5); Mean Corpuscular HGB Conc 31.6 g/dl (32-36); Mean Corpuscular Hemoglobin 28.6 pg (26-34); Mean Corpuscular Volume 90.4 fl (80-100); Mean Platelet Volume 8.9 fl (7.4-10.4); Monocytes Absolute Auto 0.6 K/mm3 (0.1-0.6); Monocytes Percent Auto 6.2 % (2.6-8.5); Neutrophils Absolute Auto 6.2 K/mm3 (1.3-6.7); Neutrophils Percent Auto 64.4 % (45.5-73.1); Platelet Count Result 386 k/mm3 (150-375); Red Blood Count 3.01 M/mm3 (4.2-5.4); Red Cell Distribution Width 15.3 % (11.5-14.5); White Blood Count 9.6 K/mm3 (4.5-10.0)
[2024-12-11 05:51] LABS: Alanine Aminotransferase 7 U/L (6-35); Albumin Level 2.3 g/dL (3.5-5.1); Alkaline Phosphatase 85 U/L (38-126); Anion Gap 4 mmol/L (4-12); Aspartate Amino Transferase 24 U/L (14-36); Bilirubin,Total 0.6 mg/dL (0.2-1.3); Blood Urea Nitrogen 13 mg/dL (7-17); Calcium 7.6 mg/dL (8.4-10.2); Carbon Dioxide 28 mmol/L (22-30); Chloride 104 mmol/L (98-107); Estimated CRCL calculation 61 ml/min; Estimated Glomerular Filt Rate > 60; Glucose 95 mg/dL (65-110); Potassium 3.5 mmol/L (3.4-5.0); Sodium 136 mmol/L (137-145)
[2024-12-11 06:00] VITALS: BP 144/81; PULSE 84; RESP 20; TEMP 36.8; O2SAT 100
--- NOTE | 2024-12-11 08:20 | P.PNIM_ITS ---
Progress Note: A&P Assessment and Plan (1) Septic joint of right knee joint: Qualifiers: Septic arthritis organism: due to unspecified organism Qualified Code(s): M00.9 - Pyogenic arthritis, unspecified Code(s): M00.9 - Pyogenic arthritis, unspecified Status: Acute Assessment and Plan: - Right knee xr: Moderate lateral and patellofemoral compartment osteoarthritis with large knee joint effusion. No evident acute osseous abnormality. - antibiotics: started on rocephin and vancomycin on 12/07, transitioned to cefuroxime and clindamycin on 12/09. COurse to be completed on 12/17. - analgesics - synovial fluid right knee: NGTD - blood cultures obtained on 12/06: NGTD - knee wound cultures: NGTD - PT/OT - Orthopedics consulted s/p arthroscopy with irrigation and debridement on 12/[address] Bello (2) Anemia: Code(s): D64.9 - Anemia, unspecified Status: Acute Assessment and Plan: H&H 5.9/19.7 on 12/09/24, s/p 2 units of PRBC's given. Post H&H 9.2/29.4. - H/H 8.6/27.2 on am labs - No signs of active bleeding - Stool for occult blood ordered - Abdominal pelvis CT without contrast: Decreased blood pool density as can be seen with anemia. Mild urinary bladder wall thickening, correlate with urinalysis. Mild mesenteric and body wall edema - Monitor labs. - Hematology consulted Likely anemia of chronic disease with RA and possible nutritional deficiencies Iron 30, TIBC 128, % saturation 23, Ferritin 880, LDH 152, Vitamin B12 pending, Folate pending. Bone marrow biopsy not indicated at this time Follow up in the outpatient setting (3) Hypertension: Qualifiers: Hypertension type: primary hypertension Qualified Code(s): I10 - Essential (primary) hypertension Code(s): I10 - Essential (primary) hypertension Status: Acute Assessment and Plan: Chronic, continue home medications - Metoprolol 25 mg PO daily. - Monitor (4) Rheumatoid arthritis: Qualifiers: Rheumatoid arthritis location: unspecified site Rheumatoid factor presence: unspecified presence Qualified Code(s): M06.9 - Rheumatoid arthritis, unspecified Code(s): M06.9 - Rheumatoid arthritis, unspecified Status: Acute Assessment and Plan: Patient has not seen anyone for her RA in over a year. She also could have a component of acute rheumatoid flare. If we are not concerned about septic arthritis, consider placing the patient on some steroid therapy to help with her level of discomfort. Given the concern for acute infection, hold off on this and will continue p.r.n. pain medications with a [place] however will increase the dose 10/325 q.4 hours. The wall is change morphine to Dilaudid 1 mg q 3 hours as needed for breakthrough pain. PT/OT Meloxicam ordered, if develops nausea/vomiting can DC Will also provide pain relief with topical analgesics including menthol creams and lidocaine patch (5) Severe protein-calorie malnutrition: Code(s): E43 - Unspecified severe protein-calorie malnutrition Status: Acute Assessment and Plan: supplements per nutrition Time Spent With Patient Time with patient: 25 - 35 minutes Subjective Date/time seen: 12/11/24 08:20 Interval history: 74 year old female with past medical history of septic arthritis of the right knee with prior washout, chronic anemia, rheumatoid arthritis, and DVT who presented to the ER from home due to increased weakness and right knee pain and swelling. Patient is pleasant sitting up in her chair. She was working with Occupational therapy who states that patient is weak and having difficulty with endurance. Due to patient's increased weakness she will require placement for ongoing therapy. Per patient she does not have adequate help at home as the home caregiver is solely for her following a stroke. Patient continues to endorse pain to both of her hands and her knees. She has no other complaints chest pain, shortness a breath, nausea / vomiting, abdominal pain. Review of Systems Review of Systems: All systems reviewed & are unremarkable except as noted in HPI and below Exam Narrative: AF HR 81 RR 16 Spo2 100 BP 146/75 General: female in no acute respiratory distress who is nontoxic appearing, s itting up in her chair HEENT: Normocephalic. Atraumatic. Extraocular movement intact. Sclera clear and anicteric. No facial asymmetry. Chest: Lungs are clear to auscultation bilaterally. No wheezes or crackles. CV: Heart was regular rate and rhythm. S1-S2. No murmurs, gallops, or rubs. Abd: Abdomen was soft. Nontender. Nondistended. Positive bowel sounds. Ext: No clubbing, cyanosis, or edema. 2+ DP pulses bilaterally. Swelling to the MCP joints with pain and weakness. Neuro: Patient is alert.Speech is clear. Objective Data Vital Signs Vital Signs: Vital Signs - 24 hr 12/10/24 09:10 12/10/24 19:23 12/10/24 20:00 Temperature Pulse Rate 82 Respiratory Rate Blood Pressure Pulse Oximetry 99 Oxygen Delivery Room Air Room Air Fraction of Inspired Oxygen 12/10/24 22:25 12/11/24 06:00 Temperature 97.7 F 98.2 F Pulse Rate 77 84 Respiratory Rate 20 20 Blood Pressure 162/82 H 144/81 H Pulse Oximetry 99 100 Oxygen Delivery Fraction of Inspired Oxygen Intake/Output Intake/Output: Intake & Output 12/08/24 12/09/24 12/10/24 12/11/24 23:59 23:59 23:59 23:59 Intake Total 2540 1957 1480 440 Output Total 650 1310 1650 900 Balance [phone] -[phone] Meds/Results Medications: Active Medications Generic Name Dose Route Start Last Admin Trade Name Freq PRN Reason Stop Dose Admin Acetaminophen 650 mg 12/06/24 22:00 12/10/24 12:03 Acetaminophen 325 Mg Tablet PO 650 mg Q4H PRN Administration Mild Pain (1-3) or Fever Hydrocodone Bitart/Acetaminophen 1 tab 12/07/24 10:05 12/10/24 22:04 Hydrocodone/Acetaminophen (*Crx) 5-325 Mg Tablet PO 1 tab Q6H PRN Administration Pain Rated 4-6 Cefuroxime Axetil 500 mg 12/09/24 21:00 12/10/24 19:53 Cefuroxime Axetil 250 Mg Tablet PO 01/17/25 23:59 500 mg Q12HR@1200,2100 MIROSLAVA Administration Clindamycin HCl 600 mg 12/10/24 21:00 12/10/24 19:55 Clindamycin Hcl 150 Mg Cap PO 01/17/25 23:59 600 mg Q12HR MIROSLAVA Administration Docusate Sodium 100 mg 12/09/24 08:50 Docusate Sodium 100 Mg Capsule PO Q12H PRN Constipation Fentanyl Citrate 25 mcg 12/07/24 07:22 Fentanyl Citrate Inj (*Crx) 100 Mcg/2 Ml Vial IV PUSH Q2M PRN Pain Ferrous Sulfate 325 mg 12/07/24 08:00 12/10/24 17:40 Ferrous Sulfate [address] PO 325 mg BIDWM MIROSLAVA Administration Folic Acid 1 mg 12/07/24 09:00 12/10/24 09:13 Folic Acid 1 Mg Tablet PO 1 mg DAILY MIROSLAVA Administration Heparin Sodium (Beef Lung) 50 units 12/08/24 09:00 Heparin Flush 50 Units/5 Ml Syringe IV PUSH QAM MIROSLAVA Heparin Sodium (Beef Lung) 50 units 12/07/24 17:29 Heparin Flush 50 Units/5 Ml Syringe IV PUSH PRN PRN after intermittent infusion Heparin Sodium (Beef Lung) 50 units 12/07/24 17:29 Heparin Flush 50 Units/5 Ml Syringe IV PUSH PRN PRN after blood draws Heparin Sodium (Porcine) 500 units 12/07/24 17:29 Heparin Sodium Lock Flush 500 Units/5 Ml Syringe IV PUSH PRN PRN see comments below Hydromorphone HCl 1 mg 12/07/24 04:07 12/09/24 21:31 Hydromorphone Hcl Inj (*Crx) 1 Mg/Ml Syr IV PUSH 1 mg Q3H PRN Administration Breakthrough Pain Lidocaine 1 patch 12/07/24 09:00 12/10/24 09:12 Lidocaine 5% Patch TRANSDERM 1 patch DAILY MIROSLAVA Administration Magnesium Oxide 200 mg 12/07/24 12:20 12/10/24 09:12 Magnesium Oxide 200 Mg Tablet PO 200 mg DAILY MIROSLAVA Administration Menthol/Methyl Salicylate 1 applic 12/07/24 04:35 Menthol 10% / Methyl Salicylate 15% 57 Gm Tube TOPICAL BID PRN Muscle/Joint Pain Metoprolol Succinate 25 mg 12/07/24 09:00 12/10/24 09:10 Metoprolol Succinate Ext Rel 25 Mg Tabcr PO 25 mg QAM MIROSLAVA Administration Ondansetron HCl 4 mg 12/06/24 22:00 12/10/24 00:34 Ondansetron Inj 4 Mg/2 Ml Vial IV PUSH 4 mg Q4H PRN Administration Nausea Ondansetron HCl 4 mg 12/07/24 07:22 Ondansetron Inj 4 Mg/2 Ml Vial IV PUSH ONCE PRN Nausea Polyethylene Glycol 17 gm 12/07/24 09:00 12/10/24 09:12 Polyethylene Glycol 3350 17 Gm Powd.Pack PO 17 gm DAILY MIROSLAVA Administration Sodium Chloride 1 spray 12/07/24 04:39 Saline 0.65% Reese Soln 44 Ml Btl NASAL Q6HR PRN Congestion Sodium Chloride 10 ml 12/07/24 22:00 12/10/24 19:56 Central Line Flush IV PUSH 10 ml Q8HR MIROSLAVA Administration Radiology Results: ITS Impressions Cervical Spine X-Ray 12/06/24 13:20 IMPRESSION: 1. Moderate cervical spondylosis. 2. Anterior fusion procedure from C5 to C7. Knee X-Ray 12/06/24 13:21 IMPRESSION: 1. Moderate lateral and patellofemoral compartment osteoarthritis with large knee joint effusion. No evident acute osseous abnormality. Chest X-Ray 12/06/24 22:16 IMPRESSION: No acute cardiopulmonary process. Abdomen/Pelvis CT 12/08/24 17:23 IMPRESSION: Decreased blood pool density as can be seen with anemia. Mild urinary bladder wall thickening, correlate with urinalysis. Mild mesenteric and body wall edema. Labs Labs: Laboratory Results - last 24 hr 12/09/24 12/11/24 21:26 05:28 WBC 9.6 RBC 3.01 L Hgb 8.6 L Hct 27.2 L MCV 90.4 MCH 28.6 MCHC 31.6 L RDW 15.3 H Plt Count 386 H MPV 8.9 Immature Gran % (Auto) 1.3 H Neut % (Auto) 64.4 Lymph % (Auto) 22.0 [place] % (Auto) 6.2 Eos % (Auto) 5.6 H Baso % (Auto) 0.5 Lymph # (Auto) 2.10 [place] # (Auto) 0.6 Eos # (Auto) 0.5 H Baso # (Auto) 0.1 Abs Immat Gran (auto) 0.12 H Absolute Neuts (auto) 6.2 Absolute Nucleated RBC 0.000 Nucleated RBC % 0.0 Sodium 136 L Potassium 3.5 Chloride 104 Carbon Dioxide 28 Anion Gap 4 BUN 13 Creatinine 0.53 L Estim Creat Clear Calc 61 Estimated GFR > 60 Glucose 95 Calcium 7.6 L Total Bilirubin 0.6 AST 24 ALT 7 Alkaline Phosphatase 85 Total Protein 7.0 Albumin 2.3 L Vitamin B12 839.0 Folate 11.4 Quality VTE Prophylaxis VTE prophylaxis: mechanical ordered (SCDs)
[2024-12-11] MEDS: LIDOCAINE 5% PATCH 1 PATCH TRANSDERM (08:27)
[2024-12-11] MEDS: HYDROcodone/acetaminophen (*CRX) 5-325 MG TABLET 1 TAB PO ×2 (08:27→22:17)
[2024-12-11] MEDS: MAGNESIUM OXIDE 200 MG TABLET PO (08:27)
[2024-12-11] MEDS: FERROUS SULFATE 325 MG TABLET DR PO (08:27)
[2024-12-11] MEDS: FOLIC ACID 1 MG TABLET PO (08:27)
[2024-12-11] MEDS: CENTRAL LINE FLUSH 10 ML IV PUSH ×3 (08:27→22:10)
[2024-12-11] MEDS: CLINDAMYCIN HCL 150 MG CAP 600 MG PO ×2 (08:27→22:09)
[2024-12-11] MEDS: polyethylene glycoL 3350 17 GM POWD.PACK PO (08:27)
[2024-12-11 08:38] VITALS: PULSE 90
[2024-12-11] MEDS: METOPROLOL SUCCINATE EXT REL 25 MG TABCR PO (08:38)
[2024-12-11 08:39] VITALS: BP 151/97; PULSE 90; RESP 16; O2SAT 99
[2024-12-11] MEDS: cefuroxime axetiL 250 MG TABLET 500 MG PO ×2 (12:35→22:10)
[2024-12-11 14:06] VITALS: BP 146/75; PULSE 81; RESP 16; TEMP 36.7; O2SAT 100
[2024-12-11] MEDS: ONDANSETRON INJ 4 MG/2 ML VIAL IV PUSH (22:09)
[2024-12-11] MEDS: DOCUSATE SODIUM 100 MG CAPSULE PO (22:11)
[2024-12-11 22:13] VITALS: BP 158/89; PULSE 89; RESP 18; TEMP 37; O2SAT 95
[2024-12-11] MEDS: MENTHOL 10% / METHYL SALICYLATE 15% 57 GM TUBE 1 APPLIC TOPICAL (22:26)
[2024-12-12 04:00] VITALS: BP 165/81; PULSE 79; RESP 18; TEMP 36.6; O2SAT 100
--- OUTSIDE RECORDS SUMMARY | 2024-12-12 06:05 | XMS_ITS | Continuity of Care Document ---
Author Name [facility] Organization [facility] Care Team Providers Care Medical Information Officer Name Role Phone [facility] Unavailable Unavailable Problems Combined list of problems from [facility] facilities. It does not include entries that were removed or entered in error. Problem Status Onset Date Problem Type Date of Resolution Comments Source Diagnosis: ICD-10-CM Z63.6 Dependent relative needing care at home Active Diagnosis [facility] Diagnosis: ICD-10-CM Z74.1 Need for assistance with personal care Active Diagnosis . [facility] Medications Combined list of outpatient medications from [facility] and [facility] facilities.Medications provided include 1) outpatient medications from the last 15 months, and 2) patient-reported medications. Medication Details Route Status Patient Instructions Prescription Expires Prescription Number Last Dispense Date Ordering Provider Order Date Order Qty Source CLINDAMYCIN HCL (CLINDAMYCI N HCL), 300MG, CAPSULE, ORAL, AUROBINDO PHARM, 100 ea. BOTTLE Active [id number] 4 2023 28 Pharmac y Data Transac [...] AJANTA PHARMA L, 60 ea. BOTTLE Active [id number] 2023 30 Pharmac y Data Transac tion Service Facilit y DULOXETINE HCL (duloxetine HCl), 30 MG, CAPSULE MACY WARREN, AJANTA PHARMA L, 30 ea. BOTTLE Active [id number] 4 2023 90 Pharmac y Data Transac tion Service Facilit y ELIQUIS (APIXABAN), 5 MG, TABLET, ORAL, BMS PRIMARYCARE , 60 ea. BOTTLE Cancele d [id number] 4 [id number] : 2023 0 Pharmac y Data Transac tion Service Facilit y ELIQUIS (APIXABAN), 5 MG, TABLET, ORAL, BMS PRIMARYCARE , 60 ea. BOTTLE Cancele d [id number] : 2023 0 Pharmac y Data Transac tion Service Facilit y ELIQUIS (APIXABAN), 5 MG, TABLET, ORAL, BMS PRIMARYCARE , 60 ea. BOTTLE Active [id number] 3 2022 60 Pharmac y Data Transac tion Service Facilit y IBUPROFEN (ibuprofen) , 400 MG, TABLET, ORAL, [employer] PHARMA, 500 ea. BOTTLE Active [id number] 4 2023 30 Pharmac y Data Transac tion Service Facilit y METOPROLOL SUCCINATE (metoprolol succinate), 50 MG, TAB ER 24H, ORAL, ACTAVIS/TEV A, 100 ea. BOTTLE Cancele d [id number] : 2023 0 Pharmac y Data Transac tion Service Facilit y PANTOPRAZOL E SODIUM (PANTOPRAZO LE SODIUM), 40 MG, TABLET DR, ORAL, MYLAN, 90 ea. BOTTLE Active [id number] 2023 30 Pharmac y Data Transac tion Service Facilit y Immunizations Combined list of available immunizations from the Department of Defense and Veterans Affairs facilities. Immunization Series Date Given Administered By Site Reaction Lot Number CVX Code Drug Outside Parts Salesman Status Comments Source COVID-19 (peerTransfer), MRNA, LNP-S, BIVALENT, PF, 30 MCG/0.3 ML DOSE 1 2021 300 complet ed [facility] INFLUENZA VACCINE, QUADRIVALENT, ADJUVANTED 5 2021 205 complet ed [facility] INFLUENZA VACCINE, QUADRIVALENT, ADJUVANTED 4 2020 205 complet ed [facility] INFLUENZA, RECOMBINANT, QUADRIVALENT, INJECTABLE, PRESERVATIVE FREE 3 2019 185 complet ed [facility] Hep A-Hep B 2019 ALUL, () Not Given Hep A-Hep B DoD Tdap 2019 ALUL, () Not Given Tdap DoD INFLUENZA, HIGH DOSE SEASONAL 2 2018 135 complet ed [facility] PNEUMOCOCCAL POLYSACCHARID E PPV23 2 2018 33 complet ed [facility] N TDAP 1 2016 115 complet ed [facility] N PNEUMOCOCCAL CONJUGATE PCV 13 1 2015 133 complet ed [facility] INFLUENZA, HIGH DOSE SEASONAL 1 2015 135 complet ed [facility] N Vital Signs Combined list of inpatient and outpatient Vital Signs from [facility], ranging from 12 months to all on record, depending upon the facility. Vital Sign Value Date Comments Source No data available for this section Ambulatory Pharmacy Encounters Combined list of: 1) Encounters from Department of [facility] facilities going back up to thelast 18 months. 2) Encounters from the [facility] facilities going back up to 280 months. Location Location Details Encounter Type Encounter Number Reason For Visit Attending Provider ADM Date DC Date Status Disposition Source [facility] Outpatient Encounter [id number] 06/09 [facility] Outpatient Encounter [id number] 08/01 [facility] CASE MANAGEMENT [id number] Diagnos is: ICD-10- CM Z74.1 Need for assista nce with persona l care
DELMAR SALAS 08/08 [facility] [id number] Diagnos is: ICD-10- CM Z63.6 Depende nt relativ e needing care at home
[facility]PH [facility] Out[facility] Encounter [id number] 10/25 [facility] ASSMT/REAS SESSMENT [id number] Diagnos is: ICD-10- CM Z63.6 Depende nt relativ e needing care at home
ALBERT,STA CY L 10/30 [facility] Outpatient Encounter [id number] 01/03 [facility] Outpatient Encounter [id number] PRICE,STA CY L 01/30 [facility] Procedures Combined list of: 1) Procedures from Department of Veterans Affairs facilities going back up to thelast 18 months, not all [place] non-surgical procedures are included; 2) All procedures from the [facility] facilities. Procedure Procedure Type Code Date Perfomer Comments Sourc e No data available for this section Ambulatory P harmacy Social History Combined list of available smoking, tobacco, and other social history from [facility] facilities. Social History Type Response Date Comment Sourc e This section is an empty social history section. DoD Assessment and Plan Combined list of future care activities from [facility] facilities (e.g., assessment and plan notes, appointments, orders, and referrals). Additional future care activities may be listed in the Plan of Care section. Result Assessment and Plan Date Source Assessment and Plan No data available for this section 12/12/2024 Ambulatory Pharmacy Functional Status Combined list of recent functional and cognitive assessments recorded at [facility] and [facility] ([facility]).[facility] Functional [place] Measurement (FIM) Scale: 1 = Total Assistance (Subject = 0% +), 2 = Maximal Assistance (Subject = 25% +), 3 = Moderate Assistance (Subject = 50% +), 4 = Minimal Assistance (Subject = 75% +), 5 = Supervision, 6 = Modified [place] (Device), 7 = Complete [place] (Timely, Safely). Assessment Date/Time Source Assessment Type Assessment Skill Assessment Score Assessment Details No data available for this section
--- OUTSIDE RECORDS SUMMARY | 2024-12-12 06:47 | XMS_ITS | Continuity of Care Document ---
Author Name [facility] Organization [facility] Care Team Providers Care Bicycle Taxi Driver Name Role Phone [facility] Unavailable Unavailable Problems Combined list of problems from Department of [facility] and [facility] facilities. It does not include entries that were removed or entered in error. Problem Status Onset Date Problem Type Date of Resolution Comments Source Diagnosis: ICD-10-CM Z63.6 Dependent relative needing care at home Active Diagnosis [facility] Diagnosis: ICD-10-CM Z74.1 Need for assistance with personal care Active Diagnosis . [facility] Medications Combined list of outpatient medications from [facility] and [facility] facilities.Medications provided include 1) outpatient medications from the last 15 months, and 2) patient-reported medications. Medication Details Route Status Patient Instructions Prescription Expires Prescription Number Last Dispense Date Ordering Provider Order Date Order Qty Source CLINDAMYCIN HCL (CLINDAMYCI N HCL), 300MG, CAPSULE, ORAL, AUROBINDO PHARM, 100 ea. BOTTLE Active [id number] 4 2023 28 Pharmac y Data Transac [...] AJANTA PHARMA L, 60 ea. BOTTLE Active [id number] 4 2023 30 Pharmac y Data Transac tion Service Facilit y DULOXETINE HCL (duloxetine HCl), 30 MG, CAPSULE MACY WARREN, AJANTA PHARMA L, 30 ea. BOTTLE Active [id number] 4 2023 90 Pharmac y Data Transac tion Service Facilit y ELIQUIS (APIXABAN), 5 MG, TABLET, ORAL, BMS PRIMARYCARE , 60 ea. BOTTLE Cancele d [id number] : 2023 0 Pharmac y Data Transac tion Service Facilit y ELIQUIS (APIXABAN), 5 MG, TABLET, ORAL, BMS PRIMARYCARE , 60 ea. BOTTLE Cancele d [id number] : 2023 0 Pharmac y Data Transac tion Service Facilit y ELIQUIS (APIXABAN), 5 MG, TABLET, ORAL, BMS PRIMARYCARE , 60 ea. BOTTLE Active [id number] 3 2022 60 Pharmac y Data Transac tion Service Facilit y IBUPROFEN (ibuprofen) , 400 MG, TABLET, ORAL, [facility] PHARMA, 500 ea. BOTTLE Active [id number] 4 2023 30 Pharmac y Data Transac tion Service Facilit y METOPROLOL SUCCINATE (metoprolol succinate), 50 MG, TAB ER 24H, ORAL, ACTAVIS/TEV A, 100 ea. BOTTLE Cancele d [id number] : 2023 0 Pharmac y Data Transac tion Service Facilit y PANTOPRAZOL E SODIUM (PANTOPRAZO LE SODIUM), 40 MG, TABLET DR, ORAL, MYLAN, 90 ea. BOTTLE Active [id number] 2023 30 Pharmac y Data Transac tion Service Facilit y Immunizations Combined list of available immunizations from the [facility] of Defense and [facility] facilities. Immunization Series Date Given Administered By Site Reaction Lot Number CVX Code Drug Spectral Scientist Status Comments Source COVID-19 ([employer]), MRNA, LNP-S, BIVALENT, PF, 30 MCG/0.3 ML DOSE 1 2021 300 complet ed [facility] INFLUENZA VACCINE, QUADRIVALENT, ADJUVANTED 5 2021 205 complet ed [facility] INFLUENZA VACCINE, QUADRIVALENT, ADJUVANTED 4 2020 205 complet ed [facility] INFLUENZA, RECOMBINANT, QUADRIVALENT, INJECTABLE, PRESERVATIVE FREE 3 2019 185 complet ed [facility] Hep A-Hep B 2019 ALUL, () Not Given Hep A-Hep B DoD Tdap 2019 ALUL, () Not Given Tdap DoD INFLUENZA, HIGH DOSE SEASONAL 2 2018 135 complet ed [facility] PNEUMOCOCCAL POLYSACCHARID E PPV23 2 2018 33 complet ed [facility] N TDAP 1 2016 115 complet ed [facility] N PNEUMOCOCCAL CONJUGATE PCV 13 1 2015 133 complet ed [facility] INFLUENZA, HIGH DOSE SEASONAL 1 2015 135 complet ed [facility] N Vital Signs Combined list of inpatient and outpatient Vital Signs from Department of [facility] and [facility], ranging from 12 months to all on record, depending upon the facility. Vital Sign Value Date Comments Source No data available for this section Ambulatory Pharmacy Encounters Combined list of: 1) Encounters from Department of [facility] facilities going back up to thelast 18 months. 2) Encounters from the Department of [facility] facilities going back up to 280 months. Location Location Details Encounter Type Encounter Number Reason For Visit Attending Provider ADM Date DC Date Status Disposition Source [facility] Outpatient Encounter [id number] 06/09 [facility] Outpatient Encounter [id number] 08/01 [facility] CASE MANAGEMENT [id number] Diagnos is: ICD-10- CM Z74.1 Need for assista nce with persona l care
DELMAR SALAS 08/08 [facility] [id number] Diagnos is: ICD-10- CM Z63.6 Depende nt relativ e needing care at home
YOSEPH [facility]MA [facility] Encounter [id number] 10/25 [facility] ASSMT/REAS SESSMENT [id number] Diagnos is: ICD-10- CM Z63.6 Depende nt relativ e needing care at home
ALBERT,STA CY L 10/30 [facility] Outpatient Encounter [id number] 01/03 [facility] Outpatient Encounter [id number] PRICE,STA CY L 01/30 [facility] Procedures Combined list of: 1) Procedures from [facility] facilities going back up to thelast 18 months, not all [place] non-surgical procedures are included; 2) All procedures from the Department [facility] facilities. Procedure Procedure Type Code Date Perfomer Comments Sourc e No data available for this section Ambulatory P harmacy Social History Combined list of available smoking, tobacco, and other social history from [facility] of [facility] and [facility] facilities. Social History Type Response Date Comment Sourc e This section is an empty social history section. DoD Assessment and Plan Combined list of future care activities from Department of [facility] and [facility] facilities (e.g., [...] of Defense and Veterans Affairs (VA).VA Functional [place] Measurement (FIM) Scale: 1 = Total Assistance (Subject = 0% +), 2 = Maximal Assistance (Subject = 25% +), 3 = Moderate Assistance (Subject = 50% +), 4 = Minimal Assistance (Subject = 75% +), 5 = Supervision, 6 = Modified [place] (Device), 7 = Complete [place] (Timely, Safely). Assessment Date/Time Source Assessment Type Assessment Skill Assessment Score Assessment Details No data available for this section
[2024-12-12 06:54] LABS: Basophils Absolute Auto 0.1 K/mm3 (0.0-0.1); Basophils Percent Auto 0.5 % (0.2-1.2); Eosinophils Absolute Auto 0.4 K/mm3 (0-0.3); Eosinophils Percent Auto 4.6 % (0-4.4); Hematocrit 28.2 % (37.0-47.0); Hemoglobin 8.9 g/dL (12.0-15.0); Immature Granulocyte Absolute 0.22 K/mm3 (0.00-0.031); Immature Granulocyte Percent A 2.3 % (0-0.5); Lymphocytes Absolute Auto 2.61 K/mm3 (0.9-3.2); Lymphocytes Percent Auto 27.2 % (18.3-44.2); Mean Corpuscular HGB Conc 31.6 g/dl (32-36); Mean Corpuscular Hemoglobin 28.8 pg (26-34); Mean Corpuscular Volume 91.3 fl (80-100); Mean Platelet Volume 8.7 fl (7.4-10.4); Monocytes Absolute Auto 0.7 K/mm3 (0.1-0.6); Monocytes Percent Auto 7.1 % (2.6-8.5); Neutrophils Absolute Auto 5.6 K/mm3 (1.3-6.7); Neutrophils Percent Auto 58.3 % (45.5-73.1); Platelet Count Result 416 k/mm3 (150-375); Red Blood Count 3.09 M/mm3 (4.2-5.4); Red Cell Distribution Width 15.4 % (11.5-14.5); White Blood Count 9.6 K/mm3 (4.5-10.0)
[2024-12-12 07:04] LABS: Alanine Aminotransferase 8 U/L (6-35); Albumin Level 2.5 g/dL (3.5-5.1); Alkaline Phosphatase 101 U/L (38-126); Anion Gap 3 mmol/L (4-12); Aspartate Amino Transferase 28 U/L (14-36); Bilirubin,Total 0.6 mg/dL (0.2-1.3); Blood Urea Nitrogen 16 mg/dL (7-17); Calcium 8.1 mg/dL (8.4-10.2); Carbon Dioxide 31 mmol/L (22-30); Chloride 99 mmol/L (98-107); Estimated CRCL calculation 47 ml/min; Estimated Glomerular Filt Rate > 60; Glucose 99 mg/dL (65-110); Potassium 3.9 mmol/L (3.4-5.0); Sodium 133 mmol/L (137-145)
--- NOTE | 2024-12-12 07:27 | P.PNOP_ITS ---
Progress Note: A&P Assessment and Plan (1) Osteoarthritis of right knee: Code(s): M17.11 - Unilateral primary osteoarthritis, right knee Status: Acute Assessment and Plan: Patient is knee pain right. Her aspirate in the ER suggested infection the extreme of the large amount of white cells and a right shift. However, cultures have been negative to date. It is unlikely but it could be a flare of her rheu matoid arthritis or even gout. Will follow along discussed. (2) Septic joint of right knee joint: Qualifiers: Septic arthritis organism: due to unspecified organism Qualified Code(s): M00.9 - Pyogenic arthritis, unspecified Code(s): M00.9 - Pyogenic arthritis, unspecified Status: Acute Subjective Subjective Date/Time Seen: 12/12/24 07:27 Principal diagnosis: Septic knee right Interval history: Septic knee, right. Review of Systems Musculoskeletal: Musculoskeletal: Reports arthralgias, Reports joint swelling and Reports stiffness Exam Narrative: Dressing intact. Patient can wiggle her toes. She has pain with manipulation of her knee. Objective Data Vital Signs Vital Signs: Vital Signs - 24 hr 12/11/24 08:00 12/11/24 08:38 12/11/24 08:39 Temperature Pulse Rate 90 90 Respiratory Rate 16 Blood Pressure 151/97 H Pulse Oximetry 99 Oxygen Delivery Room Air 12/11/24 14:06 12/11/24 20:00 12/11/24 22:13 Temperature 98.0 F 98.6 F Pulse Rate 81 89 Respiratory Rate 16 18 Blood Pressure 146/75 H 158/89 H Pulse Oximetry 100 95 Oxygen Delivery Room Air 12/12/24 04:00 Temperature 97.9 F Pulse Rate 79 Respiratory Rate 18 Blood Pressure 165/81 H Pulse Oximetry 100 Oxygen Delivery Intake/Output Intake/Output: Intake & Output 12/09/24 12/10/24 12/11/24 12/12/24 23:59 23:59 23:59 23:59 Intake Total 1957 1480 1760 350 Output Total 1310 1650 1100 Balance 647 -170 660 350 Meds/Results Medications: Active Medications Generic Name Dose Route Start Last Admin Trade Name Freq PRN Reason Stop Dose Admin Acetaminophen 650 mg 12/06/24 22:00 12/10/24 12:03 Acetaminophen 325 Mg Tablet PO 650 mg Q4H PRN Administration Mild Pain (1-3) or Fever Hydrocodone Bitart/Acetaminophen 1 tab 12/07/24 10:05 12/11/24 22:17 Hydrocodone/Acetaminophen (*Crx) 5-325 Mg Tablet PO 1 tab Q6H PRN Administration Pain Rated 4-6 Cefuroxime Axetil 500 mg 12/09/24 21:00 12/11/24 22:10 Cefuroxime Axetil 250 Mg Tablet PO 01/17/25 23:59 500 mg Q12HR@1200,2100 MIROSLAVA Administration Clindamycin HCl 600 mg 12/10/24 21:00 12/11/24 22:09 Clindamycin Hcl 150 Mg Cap PO 01/17/25 23:59 600 mg Q12HR MIROSLAVA Administration Docusate Sodium 100 mg 12/09/24 08:50 12/11/24 22:11 Docusate Sodium 100 Mg Capsule PO 100 mg Q12H PRN Administration Constipation Fentanyl Citrate 25 mcg 12/07/24 07:22 Fentanyl Citrate Inj (*Crx) 100 Mcg/2 Ml Vial IV PUSH Q2M PRN Pain Ferrous Sulfate 325 mg 12/07/24 08:00 12/11/24 17:42 Ferrous Sulfate [address] PO Not Given BIDWM MIROSLAVA Folic Acid 1 mg 12/07/24 09:00 12/11/24 08:27 Folic Acid 1 Mg Tablet PO 1 mg DAILY MIROSLAVA Administration Heparin Sodium (Beef Lung) 50 units 12/08/24 09:00 Heparin Flush 50 Units/5 Ml Syringe IV PUSH QAM MIROSLAVA Heparin Sodium (Beef Lung) 50 units 12/07/24 17:29 Heparin Flush 50 Units/5 Ml Syringe IV PUSH PRN PRN after intermittent infusion Heparin Sodium (Beef Lung) 50 units 12/07/24 17:29 Heparin Flush 50 Units/5 Ml Syringe IV PUSH PRN PRN after blood draws Heparin Sodium (Porcine) 500 units 12/07/24 17:29 Heparin Sodium Lock Flush 500 Units/5 Ml Syringe IV PUSH PRN PRN see comments below Hydromorphone HCl 1 mg 12/07/24 04:07 12/09/24 21:31 Hydromorphone Hcl Inj (*Crx) 1 Mg/Ml Syr IV PUSH 1 mg Q3H PRN Administration Breakthrough Pain Lidocaine 1 patch 12/07/24 09:00 12/11/24 08:27 Lidocaine 5% Patch TRANSDERM 1 patch DAILY MIROSLAVA Administration Magnesium Oxide 200 mg 12/07/24 12:20 12/11/24 08:27 Magnesium Oxide 200 Mg Tablet PO 200 mg DAILY MIROSLAVA Administration Meloxicam 7.5 mg 12/12/24 08:00 Meloxicam 7.5 Mg Tablet PO DAILY@0800 [facility] Menthol/Methyl Salicylate 1 applic 12/07/24 04:35 12/11/24 22:26 Menthol 10% / Methyl Salicylate 15% 57 Gm Tube TOPICAL 1 applic BID PRN Administration Muscle/Joint Pain Metoprolol Succinate 25 mg 12/07/24 09:00 12/11/24 08:38 Metoprolol Succinate Ext Rel 25 Mg Tabcr PO 25 mg QAM MIROSLAVA Administration Ondansetron HCl 4 mg 12/06/24 22:00 12/11/24 22:09 Ondansetron Inj 4 Mg/2 Ml Vial IV PUSH 4 mg Q4H PRN Administration Nausea Ondansetron HCl 4 mg 12/07/24 07:22 Ondansetron Inj 4 Mg/2 Ml Vial IV PUSH ONCE PRN Nausea Polyethylene Glycol 17 gm 12/07/24 09:00 12/11/24 08:27 Polyethylene Glycol 3350 17 Gm Powd.Pack PO 17 gm DAILY MIROSLAVA Administration Sodium Chloride 1 spray 12/07/24 04:39 Saline 0.65% Reese Soln 44 Ml Btl NASAL Q6HR PRN Congestion Sodium Chloride 10 ml 12/07/24 22:00 12/11/24 22:10 Central Line Flush IV PUSH 10 ml Q8HR MIROSLAVA Administration Radiology Results: ITS Impressions Cervical Spine X-Ray 12/06/24 13:20 IMPRESSION: 1. Moderate cervical spondylosis. 2. Anterior fusion procedure from C5 to C7. Knee X-Ray 12/06/24 13:21 IMPRESSION: 1. Moderate lateral and patellofemoral compartment osteoarthritis with large knee joint effusion. No evident acute osseous abnormality. Chest X-Ray 12/06/24 22:16 IMPRESSION: No acute cardiopulmonary process. Abdomen/Pelvis CT 12/08/24 17:23 IMPRESSION: Decreased blood pool density as can be seen with anemia. Mild urinary bladder wall thickening, correlate with urinalysis. Mild mesenteric and body wall edema. Labs Labs: Laboratory Results - last 24 hr 12/12/24 06:42 WBC 9.6 RBC 3.09 L Hgb 8.9 L Hct 28.2 L MCV 91.3 MCH 28.8 MCHC 31.6 L RDW 15.4 H Plt Count 416 H MPV 8.7 Immature Gran % (Auto) 2.3 H Neut % (Auto) 58.3 Lymph % (Auto) 27.2 [place] % (Auto) 7.1 Eos % (Auto) 4.6 H Baso % (Auto) 0.5 Lymph # (Auto) 2.61 [place] # (Auto) 0.7 H Eos # (Auto) 0.4 H Baso # (Auto) 0.1 Abs Immat Gran (auto) 0.22 H Absolute Neuts (auto) 5.6 Absolute Nucleated RBC 0.000 Nucleated RBC % 0.0 Sodium 133 L Potassium 3.9 Chloride 99 Carbon Dioxide 31 H Anion Gap 3 L BUN 16 Creatinine 0.70 Estim Creat Clear Calc 47 Estimated GFR > 60 Glucose 99 Calcium 8.1 L Total Bilirubin 0.6 AST 28 ALT 8 Alkaline Phosphatase 101 Total Protein 8.0 Albumin 2.5 L
--- NOTE | 2024-12-12 07:46 | PM.IMPN ---
Progress Note: A&P Assessment and Plan (1) Septic joint of right knee joint: Qualifiers: Septic arthritis organism: due to unspecified organism Qualified Code(s): M00.9 - Pyogenic arthritis, unspecified Code(s): M00.9 - Pyogenic arthritis, unspecified Status: Acute Assessment and Plan: - Right knee xr: Moderate lateral and patellofemoral compartment osteoarthritis with large knee joint effusion. No evident acute osseous abnormality. - antibiotics: started on rocephin and vancomycin on 12/07, transitioned to cefuroxime and clindamycin on 12/09. Course to be completed on 12/17. - analgesics - aspirate from ER suggested infections with the large amount of WBC and right shift - blood cultures obtained on 12/06: NGTD - synovial fluid right knee: NGTD - knee wound cultures: NGTD - PT/OT - Orthopedics consulted s/p arthroscopy with irrigation and debridement on 12/[address] Bello per surgery, through unlikely this could be an RA flare or even gout (uric acid WNL) (2) Rheumatoid arthritis: Qualifiers: Rheumatoid arthritis location: unspecified site Rheumatoid factor presence: unspecified presence Qualified Code(s): M06.9 - Rheumatoid arthritis, unspecified Code(s): M06.9 - Rheumatoid arthritis, unspecified Status: Acute Assessment and Plan: Patient has not seen anyone for her RA in over a year. Patient was referred by her PCP to Dr. Gamez, no scheduled follow up as of yet. Patient was previously receiving transfusions via port, however notes that she has not received infusions in over a year. Port last accessed February 2024. Patient states she was previously on MTX however was taken off 4 years ago, unsure why. She was previously on prednisone daily and stated that this helped significantly, however she stopped this herself about 1 year ago after her sister had a brain bleed while on prednisone. Patient denies any adverse reactions to herself while on prednisone. This could be an acute rheumatoid flare as cultures thus far have been negative. Meloxicam ordered, if develops nausea/vomiting can DC Started on prednisone 30 mg x1 for possible RA flare, will taper down. Will also provide pain relief with topical analgesics including menthol creams and lidocaine patch PT/OT (3) Anemia: Code(s): D64.9 - Anemia, unspecified Status: Acute Assessment and Plan: H&H 5.9/19.7 on 12/09/24, s/p 2 units of PRBC's given. Post H&H 9.2/29.4. - H/H 8.9/28.2 on am labs - No signs of active bleeding - Stool for occult blood ordered - Abdominal pelvis CT without contrast: Decreased blood pool density as can be seen with anemia. Mild urinary bladder wall thickening, correlate with urinalysis. Mild mesenteric and body wall edema - Monitor labs. - Hematology consulted Likely anemia of chronic disease with RA and possible nutritional deficiencies Iron 30, TIBC 128, % saturation 23, Ferritin 880, LDH 152, Vitamin B12 pending, Folate pending. Bone marrow biopsy not indicated at this time Follow up in the outpatient setting (4) Hypertension: Qualifiers: Hypertension type: primary hypertension Qualified Code(s): I10 - Essential (primary) hypertension Code(s): I10 - Essential (primary) hypertension Status: Acute Assessment and Plan: Chronic, continue home medications - Metoprolol 25 mg PO daily. - Monitor (5) Severe protein-calorie malnutrition: Code(s): E43 - Unspecified severe protein-calorie malnutrition Status: Acute Assessment and Plan: supplements per nutrition Time Spent With Patient Time with patient: Greater than 35 minutes Subjective Date/time seen: 12/12/24 07:46 Interval history: 74 year old female with past medical history of septic arthritis of the right knee with prior washout, chronic anemia, rheumatoid arthritis, and DVT who presented to the ER from home due to increased weakness and right knee pain and swelling. Patient is pleasant sitting up in her chair with at bedside. She continues to endorse pain worse in her knees, MCP joints, and wrists. She has no other complaints denying chest pain, shortness of breath, palpitations, nausea/vomiting and abdominal pain. Discussed RA history with patient and she states that she was previously receiving transfusions via port, however notes that she has not received infusions in over a year. Port last accessed February 2024. Patient states she was previously on MTX however was taken off 4 years ago, unsure why. She was previously on prednisone daily and stated that this helped significantly, however she stopped this herself about 1 year ago after her sister had a brain bleed while on prednisone. Patient denies any adverse reactions to herself while on prednisone. Review of Systems Review of Systems: All systems reviewed & are unremarkable except as noted in HPI and below Exam Narrative: AF HR 93 RR 18 SpO2 93 BP 137/79 General: female in no acute respiratory distress who is nontoxic appearing, sitting up in her chair HEENT: Normocephalic. Atraumatic. Extraocular movement intact. Sclera clear and anicteric. No facial asymmetry. Chest: Lungs are clear to auscultation bilaterally. No wheezes or crackles. Port to left chest. CV: Heart was regular rate and rhythm. S1-S2. No murmurs, gallops, or rubs. Abd: Abdomen was soft. Nontender. Nondistended. Positive bowel sounds. Ext: No clubbing, cyanosis, or edema. 2+ DP pulses bilaterally. Swelling to the MCP joints with pain and weakness. Neuro: Patient is alert.Speech is clear. Objective Data Vital Signs Vital Signs: Vital Signs - 24 hr 12/11/24 08:00 12/11/24 08:38 12/11/24 08:39 Temperature Pulse Rate 90 90 Respiratory Rate 16 Blood Pressure 151/97 H Pulse Oximetry 99 Oxygen Delivery Room Air 12/11/24 14:06 12/11/24 20:00 12/11/24 22:13 Temperature 98.0 F 98.6 F Pulse Rate 81 89 Respiratory Rate 16 18 Blood Pressure 146/75 H 158/89 H Pulse Oximetry 100 95 Oxygen Delivery Room Air 12/12/24 04:00 Temperature 97.9 F Pulse Rate 79 Respiratory Rate 18 Blood Pressure 165/81 H Pulse Oximetry 100 Oxygen Delivery Intake/Output Intake/Output: Intake & Output 12/09/24 12/10/24 12/11/24 12/12/24 23:59 23:59 23:59 23:59 Intake Total 1956 1480 1760 350 Output Total 1310 1650 1100 Balance 647 -170 660 350 Meds/Results Medications: Active Medications Generic Name Dose Route Start Last Admin Trade Name Freq PRN Reason Stop Dose Admin Acetaminophen 650 mg 12/06/24 22:00 12/10/24 12:03 Acetaminophen 325 Mg Tablet PO 650 mg Q4H PRN Administration Mild Pain (1-3) or Fever Hydrocodone Bitart/Acetaminophen 1 tab 12/07/24 10:05 12/11/24 22:17 Hydrocodone/Acetaminophen (*Crx) 5-325 Mg Tablet PO 1 tab Q6H PRN Administration Pain Rated 4-6 Cefuroxime Axetil 500 mg 12/09/24 21:00 12/11/24 22:10 Cefuroxime Axetil 250 Mg Tablet PO 01/17/25 23:59 500 mg Q12HR@1200,2100 MIROSLAVA Administration Clindamycin HCl 600 mg 12/10/24 21:00 12/11/24 22:09 Clindamycin Hcl 150 Mg Cap PO 01/17/25 23:59 600 mg Q12HR MIROSLAVA Administration Docusate Sodium 100 mg 12/09/24 08:50 12/11/24 22:11 Docusate Sodium 100 Mg Capsule PO 100 mg Q12H PRN Administration Constipation Fentanyl Citrate 25 mcg 12/07/24 07:22 Fentanyl Citrate Inj (*Crx) 100 Mcg/2 Ml Vial IV PUSH Q2M PRN Pain Ferrous Sulfate 325 mg 12/07/24 08:00 12/11/24 17:42 Ferrous Sulfate [address] PO Not Given BIDWM [facility] Folic Acid 1 mg 12/07/24 09:00 12/11/24 08:27 Folic Acid 1 Mg Tablet PO 1 mg DAILY MIROSLAVA Administration Heparin Sodium (Beef Lung) 50 units 12/08/24 09:00 Heparin Flush 50 Units/5 Ml Syringe IV PUSH QAM MIROSLAVA Heparin Sodium (Beef Lung) 50 units 12/07/24 17:29 Heparin Flush 50 Units/5 Ml Syringe IV PUSH PRN PRN after intermittent infusion Heparin Sodium (Beef Lung) 50 units 12/07/24 17:29 Heparin Flush 50 Units/5 Ml Syringe IV PUSH PRN PRN after blood draws Heparin Sodium (Porcine) 500 units 12/07/24 17:29 Heparin Sodium Lock Flush 500 Units/5 Ml Syringe IV PUSH PRN PRN see comments below Hydromorphone HCl 1 mg 12/07/24 04:07 12/09/24 21:31 Hydromorphone Hcl Inj (*Crx) 1 Mg/Ml Syr IV PUSH 1 mg Q3H PRN Administration Breakthrough Pain Lidocaine 1 patch 12/07/24 09:00 12/11/24 08:27 Lidocaine 5% Patch TRANSDERM 1 patch DAILY MIROSLAVA Administration Magnesium Oxide 200 mg 12/07/24 12:20 12/11/24 08:27 Magnesium Oxide 200 Mg Tablet PO 200 mg DAILY MIROSLAVA Administration Meloxicam 7.5 mg 12/12/24 08:00 Meloxicam 7.5 Mg Tablet PO DAILY@0800 [facility] Menthol/Methyl Salicylate 1 applic 12/07/24 04:35 12/11/24 22:26 Menthol 10% / Methyl Salicylate 15% 57 Gm Tube TOPICAL 1 applic BID PRN Administration Muscle/Joint Pain Metoprolol Succinate 25 mg 12/07/24 09:00 12/11/24 08:38 Metoprolol Succinate Ext Rel 25 Mg Tabcr PO 25 mg QAM MIROSLAVA Administration Ondansetron HCl 4 mg 12/06/24 22:00 12/11/24 22:09 Ondansetron Inj 4 Mg/2 Ml Vial IV PUSH 4 mg Q4H PRN Administration Nausea Ondansetron HCl 4 mg 12/07/24 07:22 Ondansetron Inj 4 Mg/2 Ml Vial IV PUSH ONCE PRN Nausea Polyethylene Glycol 17 gm 12/07/24 09:00 12/11/24 08:27 Polyethylene Glycol 3350 17 Gm Powd.Pack PO 17 gm DAILY MIROSLAVA Administration Sodium Chloride 1 spray 12/07/24 04:39 Saline 0.65% Reese Soln 44 Ml Btl NASAL Q6HR PRN Congestion Sodium Chloride 10 ml 12/07/24 22:00 12/11/24 22:10 Central Line Flush IV PUSH 10 ml Q8HR MIROSLAVA Administration Radiology Results: ITS Impressions Cervical Spine X-Ray 12/06/24 13:20 IMPRESSION: 1. Moderate cervical spondylosis. 2. Anterior fusion procedure from C5 to C7. Knee X-Ray 12/06/24 13:21 IMPRESSION: 1. Moderate lateral and patellofemoral compartment osteoarthritis with large knee joint effusion. No evident acute osseous abnormality. Chest X-Ray 12/06/24 22:16 IMPRESSION: No acute cardiopulmonary process. Abdomen/Pelvis CT 12/08/24 17:23 IMPRESSION: Decreased blood pool density as can be seen with anemia. Mild urinary bladder wall thickening, correlate with urinalysis. Mild mesenteric and body wall edema. Labs Labs: Laboratory Results - last 24 hr 12/12/24 06:42 WBC 9.6 RBC 3.09 L Hgb 8.9 L Hct 28.2 L MCV 91.3 MCH 28.8 MCHC 31.6 L RDW 15.4 H Plt Count 416 H MPV 8.7 Immature Gran % (Auto) 2.3 H Neut % (Auto) 58.3 Lymph % (Auto) 27.2 [place] % (Auto) 7.1 Eos % (Auto) 4.6 H Baso % (Auto) 0.5 Lymph # (Auto) 2.61 [place] # (Auto) 0.7 H Eos # (Auto) 0.4 H Baso # (Auto) 0.1 Abs Immat Gran (auto) 0.22 H Absolute Neuts (auto) 5.6 Absolute Nucleated RBC 0.000 Nucleated RBC % 0.0 Sodium 133 L Potassium 3.9 Chloride 99 Carbon Dioxide 31 H Anion Gap 3 L BUN 16 Creatinine 0.70 Estim Creat Clear Calc 47 Estimated GFR > 60 Glucose 99 Calcium 8.1 L Total Bilirubin 0.6 AST 28 ALT 8 Alkaline Phosphatase 101 Total Protein 8.0 Albumin 2.5 L Quality VTE Prophylaxis VTE prophylaxis: mechanical ordered (SCDs)
[2024-12-12 08:00] VITALS: PULSE 99; RESP 18; O2SAT 100
[2024-12-12] MEDS: FERROUS SULFATE 325 MG TABLET DR PO ×2 (09:59→17:34)
[2024-12-12] MEDS: CLINDAMYCIN HCL 150 MG CAP 600 MG PO ×2 (09:59→20:45)
[2024-12-12] MEDS: MAGNESIUM OXIDE 200 MG TABLET PO (09:59)
[2024-12-12] MEDS: FOLIC ACID 1 MG TABLET PO (09:59)
[2024-12-12] MEDS: MELOXICAM 7.5 MG TABLET PO (09:59)
[2024-12-12] MEDS: polyethylene glycoL 3350 17 GM POWD.PACK PO (09:59)
[2024-12-12] MEDS: LIDOCAINE 5% PATCH 1 PATCH TRANSDERM (10:00)
[2024-12-12] MEDS: CENTRAL LINE FLUSH 10 ML IV PUSH ×3 (10:00→20:51)
[2024-12-12 10:01] VITALS: PULSE 99
[2024-12-12] MEDS: METOPROLOL SUCCINATE EXT REL 25 MG TABCR PO (10:01)
[2024-12-12] MEDS: ONDANSETRON INJ 4 MG/2 ML VIAL IV PUSH (10:07)
[2024-12-12 12:33] LABS: Total Protein Synovial Fluid 11.6 g/dL (1.0-3.0)
[2024-12-12] MEDS: cefuroxime axetiL 250 MG TABLET 500 MG PO ×2 (12:52→20:45)
[2024-12-12] MEDS: HYDROcodone/acetaminophen (*CRX) 5-325 MG TABLET 1 TAB PO (12:53)
[2024-12-12 14:09] VITALS: BP 137/79; PULSE 93; RESP 18; TEMP 37; O2SAT 99
[2024-12-12 15:08] LABS: Glucose Point of Care 92 mg/dl (65-105)
--- NOTE | 2024-12-12 16:25 | PCPTNOTE ---
On 12/12/24, the student, ESPINOZA Larsen, provided care and completed [facility] documentation on this patient. I have reviewed the student's documentation and agree with the findings.
[2024-12-12] MEDS: predniSONE 20 MG, predniSONE 10 MG 30 MG PO (17:34)
[2024-12-12] MEDS: DOCUSATE SODIUM 100 MG CAPSULE PO (20:50)
[2024-12-12 21:07] VITALS: BP 125/69; PULSE 77; RESP 16; TEMP 36.7; O2SAT 100
[2024-12-13] MEDS: CENTRAL LINE FLUSH 10 ML IV PUSH ×3 (06:31→21:33)
[2024-12-13 06:50] LABS: Basophils Percent Auto 0.3 % (0.2-1.2); Hematocrit 27.8 % (37.0-47.0); Hemoglobin 8.7 g/dL (12.0-15.0); Immature Granulocyte Absolute 0.11 K/mm3 (0.00-0.031); Immature Granulocyte Percent A 1.7 % (0-0.5); Lymphocytes Absolute Auto 1.69 K/mm3 (0.9-3.2); Lymphocytes Percent Auto 26.2 % (18.3-44.2); Mean Corpuscular HGB Conc 31.3 g/dl (32-36); Mean Corpuscular Hemoglobin 28.6 pg (26-34); Mean Corpuscular Volume 91.4 fl (80-100); Mean Platelet Volume 8.8 fl (7.4-10.4); Monocytes Absolute Auto 0.3 K/mm3 (0.1-0.6); Monocytes Percent Auto 3.9 % (2.6-8.5); Neutrophils Absolute Auto 4.4 K/mm3 (1.3-6.7); Neutrophils Percent Auto 67.9 % (45.5-73.1); Platelet Count Result 422 k/mm3 (150-375); Red Blood Count 3.04 M/mm3 (4.2-5.4); Red Cell Distribution Width 15.5 % (11.5-14.5); White Blood Count 6.5 K/mm3 (4.5-10.0)
[2024-12-13 07:04] VITALS: BP 123/68; PULSE 72; RESP 20; TEMP 36.6; O2SAT 100
[2024-12-13 07:19] LABS: Alanine Aminotransferase 9 U/L (6-35); Albumin Level 2.4 g/dL (3.5-5.1); Alkaline Phosphatase 93 U/L (38-126); Anion Gap 2 mmol/L (4-12); Aspartate Amino Transferase 27 U/L (14-36); Bilirubin,Total 0.4 mg/dL (0.2-1.3); Blood Urea Nitrogen 29 mg/dL (7-17); Calcium 7.9 mg/dL (8.4-10.2); Carbon Dioxide 31 mmol/L (22-30); Chloride 99 mmol/L (98-107); Estimated CRCL calculation 36 ml/min; Estimated Glomerular Filt Rate > 60; Glucose 138 mg/dL (65-110); Potassium 4.9 mmol/L (3.4-5.0); Sodium 132 mmol/L (137-145)
--- NOTE | 2024-12-13 07:43 | P.PNIM_ITS ---
Progress Note: A&P Assessment and Plan (1) Septic joint of right knee joint: Qualifiers: Septic arthritis organism: due to unspecified organism Qualified Code(s): M00.9 - Pyogenic arthritis, unspecified Code(s): M00.9 - Pyogenic arthritis, unspecified Status: Acute Assessment and Plan: - Right knee xr: Moderate lateral and patellofemoral compartment osteoarthritis with large knee joint effusion. No evident acute osseous abnormality. - antibiotics: started on rocephin and vancomycin on 12/07, transitioned to cefuroxime and clindamycin on 12/09. Course to be completed on 12/17. - analgesics - aspirate from ER suggested infections with the large amount of WBC and right shift - blood cultures obtained on 12/06: Negative - synovial fluid right knee: NGTD - knee wound cultures: NGTD - PT/OT - Orthopedics consulted s/p arthroscopy with irrigation and debridement on 12/[address] Bello per surgery, through unlikely this could be an RA flare or even gout (uric acid WNL) (2) Rheumatoid arthritis: Qualifiers: Rheumatoid arthritis location: unspecified site Rheumatoid factor presence: unspecified presence Qualified Code(s): M06.9 - Rheumatoid arthritis, unspecified Code(s): M06.9 - Rheumatoid arthritis, unspecified Status: Acute Assessment and Plan: Patient has not seen anyone for her RA in over a year. Patient was referred by her PCP to Dr. Gamez, no scheduled follow up as of yet. Discussed in depth with patient the importance of following up with the mathematician. Patient was previously receiving transfusions via port, however notes that she has not received infusions in over a year. Port last accessed February 2024. Patient states she was previously on MTX however was taken off 4 years ago, unsure why. She was previously on prednisone daily and stated that this helped significantly, however she stopped this herself about 1 year ago after her sister had a brain bleed while on prednisone. Patient denies any adverse reactions to herself while on prednisone. Patient states that her PCP is managing her port. This could be an acute rheumatoid flare as cultures thus far have been negative. Meloxicam ordered, if develops nausea/vomiting can DC Started on prednisone 30 mg x1 for possible RA flare on 12/13, will continue to taper down. Will also provide pain relief with topical analgesics including menthol creams and lidocaine patch (3) Anemia: Code(s): D64.9 - Anemia, unspecified Status: Acute Assessment and Plan: H&H 5.9/19.7 on 12/09/24, s/p 2 units of PRBC's given. Post H&H 9.2/29.4. - H/H 8.7/27.8 on am labs - No signs of active bleeding - Stool for occult blood ordered - Abdominal pelvis CT without contrast: Decreased blood pool density as can be seen with anemia. Mild urinary bladder wall thickening, correlate with urinalysis. Mild mesenteric and body wall edema - Monitor labs. - Hematology consulted Likely anemia of chronic disease with RA and possible nutritional deficiencies Iron 30, TIBC 128, % saturation 23, Ferritin 880, LDH 152, Vitamin B12 pending, Folate pending. Bone marrow biopsy not indicated at this time Follow up in the outpatient setting (4) Hypertension: Qualifiers: Hypertension type: primary hypertension Qualified Code(s): I10 - Essential (primary) hypertension Code(s): I10 - Essential (primary) hypertension Status: Acute Assessment and Plan: Chronic, continue home medications - Metoprolol 25 mg PO daily. - Monitor (5) Severe protein-calorie malnutrition: Code(s): E43 - Unspecified severe protein-calorie malnutrition Status: Acute Assessment and Plan: supplements per nutrition Time Spent With Patient Time with patient: 25 - 35 minutes Subjective Date/time seen: 12/13/24 07:43 Interval history: 74 year old female with past medical history of septic arthritis of the right knee with prior washout, chronic anemia, rheumatoid arthritis, and DVT who presented to the ER from home due to increased weakness and right knee pain and swelling. Patient is pleasant lying comfortably in bed. She states that her pain is improved slightly today and notes improvement to her wrist and MCP joint swelling. She has no other complaints denying chest pain, shortness a breath, palpitations, nausea/vomiting, and abdominal pain. Review of Systems Review of Systems: All systems reviewed & are unremarkable except as noted in HPI and below Exam Narrative: AF HR 84 RR 12 Spo2 100 BP 117/61 General: female in no acute respiratory distress who is nontoxic appearing, sitting up in her chair HEENT: Normocephalic. Atraumatic. Extraocular movement intact. Sclera clear and anicteric. No facial asymmetry. Chest: Lungs are clear to auscultation bilaterally. No wheezes or crackles. Port to left chest without signs of infection. CV: Heart was regular rate and rhythm. S1-S2. No murmurs, gallops, or rubs. Abd: Abdomen was soft. Nontender. Nondistended. Positive bowel sounds. Ext: No clubbing, cyanosis, or edema. 2+ DP pulses bilaterally. Swelling to the MCP joints with improved pain and weakness compared to yesterday. Neuro: Patient is alert.Speech is clear. Objective Data Vital Signs Vital Signs: Vital Signs - 24 hr 12/12/24 08:00 12/12/24 10:01 12/12/24 14:09 Temperature 98.6 F Pulse Rate 99 99 93 Respiratory Rate 18 18 Blood Pressure 137/79 Pulse Oximetry 100 99 Oxygen Delivery Room Air Fraction of Inspired Oxygen 21 12/12/24 20:00 12/12/24 21:07 12/13/24 07:04 Temperature 98.1 F 97.9 F Pulse Rate 77 72 Respiratory Rate 16 20 Blood Pressure 125/69 123/68 Pulse Oximetry 100 100 Oxygen Delivery Room Air Fraction of Inspired Oxygen 21 Intake/Output Intake/Output: Intake & Output 12/10/24 12/11/24 12/12/24 12/13/24 23:59 23:59 23:59 23:59 Intake Total 1480 1760 1667 480 Output Total 1650 1100 500 450 Balance -119 633 7792 30 Meds/Results Medications: Active Medications Generic Name Dose Route Start Last Admin Trade Name Freq PRN Reason Stop Dose Admin Acetaminophen 650 mg 12/06/24 22:00 12/10/24 12:03 Acetaminophen 325 Mg Tablet PO 650 mg Q4H PRN Administration Mild Pain (1-3) or Fever Hydrocodone Bitart/Acetaminophen 1 tab 12/07/24 10:05 12/12/24 12:53 Hydrocodone/Acetaminophen (*Crx) 5-325 Mg Tablet PO 1 tab Q6H PRN Administration Pain Rated 4-6 Cefuroxime Axetil 500 mg 12/09/24 21:00 12/12/24 20:45 Cefuroxime Axetil 250 Mg Tablet PO 01/17/25 23:59 500 mg Q12HR@1200,2100 MIROSLAVA Administration Clindamycin HCl 600 mg 12/10/24 21:00 12/12/24 20:45 Clindamycin Hcl 150 Mg Cap PO 01/17/25 23:59 600 mg Q12HR MIROSLAVA Administration Docusate Sodium 100 mg 12/09/24 08:50 12/12/24 20:50 Docusate Sodium 100 Mg Capsule PO 100 mg Q12H PRN Administration Constipation Fentanyl Citrate 25 mcg 12/07/24 07:22 Fentanyl Citrate Inj (*Crx) 100 Mcg/2 Ml Vial IV PUSH Q2M PRN Pain Ferrous Sulfate 325 mg 12/07/24 08:00 12/12/24 17:34 Ferrous Sulfate [address] PO 325 mg BIDWM MIROSLAVA Administration Folic Acid 1 mg 12/07/24 09:00 12/12/24 09:59 Folic Acid 1 Mg Tablet PO 1 mg DAILY MIROSLAVA Administration Heparin Sodium (Beef Lung) 50 units 12/08/24 09:00 Heparin Flush 50 Units/5 Ml Syringe IV PUSH QAM MIROSLAVA Heparin Sodium (Beef Lung) 50 units 12/07/24 17:29 Heparin Flush 50 Units/5 Ml Syringe IV PUSH PRN PRN after intermittent infusion Heparin Sodium (Beef Lung) 50 units 12/07/24 17:29 Heparin Flush 50 Units/5 Ml Syringe IV PUSH PRN PRN after blood draws Heparin Sodium (Porcine) 500 units 12/07/24 17:29 Heparin Sodium Lock Flush 500 Units/5 Ml Syringe IV PUSH PRN PRN see comments below Hydromorphone HCl 1 mg 12/07/24 04:07 12/09/24 21:31 Hydromorphone Hcl Inj (*Crx) 1 Mg/Ml Syr IV PUSH 1 mg Q3H PRN Administration Breakthrough Pain Lidocaine 1 patch 12/07/24 09:00 12/12/24 10:00 Lidocaine 5% Patch TRANSDERM 1 patch DAILY [facility] Administration Magnesium Oxide 200 mg 12/07/24 12:20 12/12/24 09:59 Magnesium Oxide 200 Mg Tablet PO 200 mg DAILY MIROSLAVA Administration Meloxicam 7.5 mg 12/12/24 08:00 12/12/24 09:59 Meloxicam 7.5 Mg Tablet PO 7.5 mg DAILY@0800 [facility] Administration Menthol/Methyl Salicylate 1 applic 12/07/24 04:35 12/11/24 22:26 Menthol 10% / Methyl Salicylate 15% 57 Gm Tube TOPICAL 1 applic BID PRN Administration Muscle/Joint Pain Metoprolol Succinate 25 mg 12/07/24 09:00 12/12/24 10:01 Metoprolol Succinate Ext Rel 25 Mg Tabcr PO 25 mg QAM MIROSLAVA Administration Ondansetron HCl 4 mg 12/06/24 22:00 12/12/24 10:07 Ondansetron Inj 4 Mg/2 Ml Vial IV PUSH 4 mg Q4H PRN Administration Nausea Ondansetron HCl 4 mg 12/07/24 07:22 Ondansetron Inj 4 Mg/2 Ml Vial IV PUSH ONCE PRN Nausea Polyethylene Glycol 17 gm 12/07/24 09:00 12/12/24 09:59 Polyethylene Glycol 3350 17 Gm Powd.Pack PO 17 gm DAILY MIROSLAVA Administration Sodium Chloride 1 spray 12/07/24 04:39 Saline 0.65% Reese Soln 44 Ml Btl NASAL Q6HR PRN Congestion Sodium Chloride 10 ml 12/07/24 22:00 12/13/24 06:31 Central Line Flush IV PUSH 10 ml Q8HR MIROSLAVA Administration Radiology Results: ITS Impressions Cervical Spine X-Ray 12/06/24 13:20 IMPRESSION: 1. Moderate cervical spondylosis. 2. Anterior fusion procedure from C5 to C7. Chest X-Ray 12/06/24 22:16 IMPRESSION: No acute cardiopulmonary process. Abdomen/Pelvis CT 12/08/24 17:23 IMPRESSION: Decreased blood pool density as can be seen with anemia. Mild urinary bladder wall thickening, correlate with urinalysis. Mild mesenteric and body wall edema. Knee X-Ray 12/12/24 16:55 IMPRESSION: 1. Total left knee arthroplasty with lucency again seen around the femoral post and slight interval change in positioning of the femoral component with respect to the bone, consistent with loosening. 2. Small left knee joint effusion with loose bodies. Venous Doppler Study 12/12/24 17:25 IMPRESSION: 1. No deep venous thrombosis. Labs Labs: Laboratory Results - last 24 hr 12/06/24 12/07/24 12/13/24 16:45 04:05 06:41 WBC 6.5 RBC 3.04 L Hgb 8.7 L Hct 27.8 L MCV 91.4 MCH 28.6 MCHC 31.3 L RDW 15.5 H Plt Count 422 H MPV 8.8 Immature Gran % (Auto) 1.7 H Neut % (Auto) 67.9 Lymph % (Auto) 26.2 [place] % (Auto) 3.9 Eos % (Auto) 0.0 Baso % (Auto) 0.3 Lymph # (Auto) 1.69 [place] # (Auto) 0.3 Eos # (Auto) 0.0 Baso # (Auto) 0.0 Abs Immat Gran (auto) 0.11 H Absolute Neuts (auto) 4.4 Absolute Nucleated RBC 0.000 Nucleated RBC % 0.0 Sodium 132 L Potassium 4.9 Chloride 99 Carbon Dioxide 31 H Anion Gap 2 L BUN 29 H D Creatinine 0.95 Estim Creat Clear Calc 36 Estimated GFR > 60 Glucose 138 H POC Capillary Glucose 92 Calcium 7.9 L Total Bilirubin 0.4 AST 27 ALT 9 Alkaline Phosphatase 93 Total Protein 8.0 Albumin 2.4 L Synovial Total Protein 11.6 H Quality VTE Prophylaxis VTE prophylaxis: mechanical ordered (SCDs)
[2024-12-13 08:30] VITALS: PULSE 68
[2024-12-13] MEDS: FOLIC ACID 1 MG TABLET PO (08:30)
[2024-12-13] MEDS: MAGNESIUM OXIDE 200 MG TABLET PO (08:30)
[2024-12-13] MEDS: CLINDAMYCIN HCL 150 MG CAP 600 MG PO ×2 (08:30→21:33)
[2024-12-13] MEDS: METOPROLOL SUCCINATE EXT REL 25 MG TABCR PO (08:30)
[2024-12-13] MEDS: LIDOCAINE 5% PATCH 1 PATCH TRANSDERM (08:30)
[2024-12-13] MEDS: FERROUS SULFATE 325 MG TABLET DR PO ×2 (08:30→17:46)
[2024-12-13] MEDS: MELOXICAM 7.5 MG TABLET PO (08:30)
[2024-12-13] MEDS: polyethylene glycoL 3350 17 GM POWD.PACK PO (08:30)
[2024-12-13 10:08] LABS: Soluble Transferrin Receptor 0.98 mg/L (0.76-1.76)
[2024-12-13 11:11] LABS: IFOB Positive Control Positive; Immunochemical Fecal Occult Bl Negative (N)
[2024-12-13] MEDS: cefuroxime axetiL 250 MG TABLET 500 MG PO ×2 (12:56→21:34)
[2024-12-13 14:00] VITALS: BP 117/61; PULSE 84; RESP 12; TEMP 36.1; O2SAT 100
[2024-12-13] MEDS: predniSONE 5 MG TABLET 25 MG PO (14:20)
[2024-12-13 21:36] VITALS: BP 152/84; PULSE 77; RESP 16; TEMP 36.9; O2SAT 100
[2024-12-13] MEDS: DOCUSATE SODIUM 100 MG CAPSULE PO (21:40)
[2024-12-14] MEDS: HYDROcodone/acetaminophen (*CRX) 5-325 MG TABLET 1 TAB PO ×2 (03:48→09:15)
[2024-12-14 04:45] VITALS: BP 158/82; PULSE 68; RESP 16; TEMP 36.3; O2SAT 100
[2024-12-14 06:57] LABS: Basophils Percent Auto 0.4 % (0.2-1.2); Eosinophils Percent Auto 0.1 % (0-4.4); Hematocrit 26.8 % (37.0-47.0); Hemoglobin 8.2 g/dL (12.0-15.0); Immature Granulocyte Absolute 0.12 K/mm3 (0.00-0.031); Immature Granulocyte Percent A 1.1 % (0-0.5); Lymphocytes Absolute Auto 2.97 K/mm3 (0.9-3.2); Lymphocytes Percent Auto 27.4 % (18.3-44.2); Mean Corpuscular HGB Conc 30.6 g/dl (32-36); Mean Corpuscular Hemoglobin 28.4 pg (26-34); Mean Corpuscular Volume 92.7 fl (80-100); Monocytes Absolute Auto 0.5 K/mm3 (0.1-0.6); Monocytes Percent Auto 4.4 % (2.6-8.5); Neutrophils Absolute Auto 7.2 K/mm3 (1.3-6.7); Neutrophils Percent Auto 66.6 % (45.5-73.1); Platelet Count Result 478 k/mm3 (150-375); Red Blood Count 2.89 M/mm3 (4.2-5.4); Red Cell Distribution Width 15.5 % (11.5-14.5); White Blood Count 10.8 K/mm3 (4.5-10.0)
[2024-12-14 07:23] LABS: Alanine Aminotransferase 11 U/L (6-35); Albumin Level 2.4 g/dL (3.5-5.1); Alkaline Phosphatase 82 U/L (38-126); Anion Gap 2 mmol/L (4-12); Aspartate Amino Transferase 26 U/L (14-36); Bilirubin,Total 0.3 mg/dL (0.2-1.3); Blood Urea Nitrogen 41 mg/dL (7-17); Calcium 7.8 mg/dL (8.4-10.2); Carbon Dioxide 31 mmol/L (22-30); Chloride 100 mmol/L (98-107); Estimated CRCL calculation 41 ml/min; Estimated Glomerular Filt Rate > 60; Glucose 132 mg/dL (65-110); Potassium 4.7 mmol/L (3.4-5.0); Sodium 133 mmol/L (137-145)
[2024-12-14] MEDS: CENTRAL LINE FLUSH 10 ML IV PUSH ×3 (07:32→21:30)
[2024-12-14] MEDS: predniSONE 5 MG TABLET 20 MG PO (08:20)
[2024-12-14 08:21] VITALS: PULSE 72
[2024-12-14] MEDS: MAGNESIUM OXIDE 200 MG TABLET PO (08:21)
[2024-12-14] MEDS: METOPROLOL SUCCINATE EXT REL 25 MG TABCR PO (08:21)
[2024-12-14] MEDS: FOLIC ACID 1 MG TABLET PO (08:21)
[2024-12-14] MEDS: MELOXICAM 7.5 MG TABLET PO (08:21)
[2024-12-14] MEDS: FERROUS SULFATE 325 MG TABLET DR PO (08:21)
[2024-12-14] MEDS: polyethylene glycoL 3350 17 GM POWD.PACK PO (08:22)
[2024-12-14] MEDS: CLINDAMYCIN HCL 150 MG CAP 600 MG PO ×2 (09:15→21:29)
[2024-12-14] MEDS: DOCUSATE SODIUM 100 MG CAPSULE PO (09:15)
[2024-12-14] MEDS: ONDANSETRON INJ 4 MG/2 ML VIAL IV PUSH (09:16)
[2024-12-14] MEDS: BISACODYL 5 MG TABLET EC 10 MG PO (13:20)
--- NOTE | 2024-12-14 13:42 | PM.IMPN ---
Progress Note: A&P Assessment and Plan (1) Septic joint of right knee joint: Qualifiers: Septic arthritis organism: due to unspecified organism Qualified Code(s): M00.9 - Pyogenic arthritis, unspecified Code(s): M00.9 - Pyogenic arthritis, unspecified Status: Acute Assessment and Plan: - Right knee xr: Moderate lateral and patellofemoral compartment osteoarthritis with large knee joint effusion. No evident acute osseous abnormality. - antibiotics: started on rocephin and vancomycin on 12/07, transitioned to cefuroxime and clindamycin on 12/09. Course to be completed on 12/17. - analgesics - aspirate from ER suggested infections with the large amount of WBC and right shift - blood cultures obtained on 12/06: Negative - synovial fluid right knee: NGTD - knee wound cultures: NGTD - PT/OT - Orthopedics consulted s/p arthroscopy with irrigation and debridement on 12/[address] Bello per surgery, through unlikely this could be an RA flare or even gout (uric acid WNL) 12/14: Patient on clindamycin and cefuroxime oral (2) Rheumatoid arthritis: Qualifiers: Rheumatoid arthritis location: unspecified site Rheumatoid factor presence: unspecified presence Qualified Code(s): M06.9 - Rheumatoid arthritis, unspecified Code(s): M06.9 - Rheumatoid arthritis, unspecified Status: Acute Assessment and Plan: Patient has not seen anyone for her RA in over a year. Patient was referred by her PCP to Dr. Gamez, no scheduled follow up as of yet. Discussed in depth with patient the importance of following up with the development professional. Patient was previously receiving transfusions via port, however notes that she has not received infusions in over a year. Port last accessed February 2024. Patient states she was previously on MTX however was taken off 4 years ago, unsure why. She was previously on prednisone daily and stated that this helped significantly, however she stopped this herself about 1 year ago after her sister had a brain bleed while on prednisone. Patient denies any adverse reactions to herself while on prednisone. Patient states that her PCP is managing her port. This could be an acute rheumatoid flare as cultures thus far have been negative. Meloxicam ordered, if develops nausea/vomiting can DC Started on prednisone 30 mg x1 for possible RA flare on 12/13, will continue to taper down. Will also provide pain relief with topical analgesics including menthol creams and lidocaine patch 12/14: Swelling of hands improving but pain and swelling persist Steroids and 7.5 mg meloxicam being tolerated at this time (3) Anemia: Code(s): D64.9 - Anemia, unspecified Status: Acute Assessment and Plan: H&H 5.9/19.7 on 12/09/24, s/p 2 units of PRBC's given. Post H&H 9.2/29.4. - H/H 8.7/27.8 on am labs - No signs of active bleeding - Stool for occult blood ordered - Abdominal pelvis CT without contrast: Decreased blood pool density as can be seen with anemia. Mild urinary bladder wall thickening, correlate with urinalysis. Mild mesenteric and body wall edema - Monitor labs. - Hematology consulted Likely anemia of chronic disease with RA and possible nutritional deficiencies Iron 30, TIBC 128, % saturation 23, Ferritin 880, LDH 152, Vitamin B12 pending, Folate pending. Bone marrow biopsy not indicated at this time Follow up in the outpatient setting 12/14: Hold oral iron due to SEVERE constipation, consider IV dose again if needed (4) Hypertension: Qualifiers: Hypertension type: primary hypertension Qualified Code(s): I10 - Essential (primary) hypertension Code(s): I10 - Essential (primary) hypertension Status: Acute Assessment and Plan: Chronic, continue home medications - Metoprolol 25 mg PO daily. - Monitor (5) Severe protein-calorie malnutrition: Code(s): E43 - Unspecified severe protein-calorie malnutrition Status: Acute Assessment and Plan: supplements per nutrition (6) Fecal impaction: Code(s): K56.41 - Fecal impaction Status: Acute Assessment and Plan: -Abdominal pain with constipation for more than 8 days now experiencing nausea, loss of appetite and decreased oral intake -Symptoms started 3 weeks ago after viral URI and no improvement since -Co-incided with timing of right knee pain/swelling and swelling of joints in hands -All symptoms likely due to viral mediated flare of rheumatoid arthritis -Oral medications added, digital disimpaction by RN, soap suds enemas given -IV Reglan used for nausea, patient tolerated this as an infusion over 15-20 minutes, feel more comfortable giving slow IV push as needed. -CT abdomen pelvis with IV contrast obtained showing rectal dilation and diffuse colonic stool burden. My own interpretation of CT shows gas scattered throughout colon and rectal stool not completely compacted -Hold oral iron, consider additional IV infusion instead (7) Nausea: Code(s): R11.0 - Nausea Status: Acute Assessment and Plan: See Fecal Impaction above (8) Weight loss: Code(s): R63.4 - Abnormal weight loss Status: Acute Assessment and Plan: See fecal impaction above, symptom onset about 3 weeks ago Plan Disimpaction by oral and rectal means as tolerated GI referral if no improvement over the weekend. Time Spent With Patient Time with patient: Greater than 35 minutes Subjective Date/time seen: 12/14/24 13:42 Interval history: Patient reports right knee/leg still causing pain but primarily she reports abdominal pain related to constipation. Patient reports it has been at least 8 days since she had a BM. She reports about 3 weeks ago she had viral URI symptoms and after that illness her right knee began to swell, her hands began to swell (rheumatoid arthritis flare) and her bowels slowed down. She has a prior history of severe constipation in which she was in the hospital for GI bleed and trying to bowel prep prior to colonoscopy without success. Patient currently reports nausea and decreased food/fluid intake but no emesis. Patient also mentioned feeling diffusely itchy this morning around breakfast time, similar to how allergic reactions to banana present. Patient received Benadryl by mouth with improvement in symptoms. RN attempted digital disimpaction followed by soap suds enema without success. Ordered CT scan abd/pelvis to assess for solid fecal impaction vs bowel obstruction vs simple constipation. No bowel obstruction noted but there is extensive stool burden throughout colon with distension near the rectum. Review of Systems Review of Systems: All systems reviewed & are unremarkable except as noted in HPI and below Exam Narrative: General: female in no acute respiratory distress who is uncomfortable appearing HEENT: Normocephalic. Atraumatic. Extraocular movement intact. Sclera clear and anicteric. No facial asymmetry. Chest: Lungs are clear to auscultation bilaterally. No wheezes or crackles. Port to left chest without signs of infection. CV: Heart was regular rate and rhythm. S1-S2. No murmurs, gallops, or rubs. Abd: Abdomen was soft, mildly tender, mildly rotund with hypoactive bowel sound Ext: No clubbing, cyanosis, or edema. 2+ DP pulses bilaterally. Swelling to the MCP joints with improved pain and weakness compared to yesterday. Right knee with marissa wrap/bandage in place per Orthopedics. Neuro: Patient is alert. Speech is clear. Objective Data Vital Signs Vital Signs: Vital Signs - 24 hr 12/13/24 14:00 12/13/24 20:00 12/13/24 21:36 Temperature 36.1 C L 36.9 C Pulse Rate 84 77 Respiratory Rate 12 16 Blood Pressure 117/61 152/84 H Pulse Oximetry 100 100 Oxygen Delivery Room Air 12/14/24 04:45 12/14/24 08:21 Temperature 36.3 C L Pulse Rate 68 72 Respiratory Rate 16 Blood Pressure 158/82 H Pulse Oximetry 100 Oxygen Delivery Intake/Output Intake/Output: Intake & Output 12/11/24 12/12/24 12/13/24 12/14/24 23:59 23:59 23:59 23:59 Intake Total 1760 1667 1920 270 Output Total 1100 500 600 300 Balance 660 1167 1320 -30 Meds/Results Medications: Active Medications Generic Name Dose Route Start Last Admin Trade Name Freq PRN Reason Stop Dose Admin Acetaminophen 650 mg 12/06/24 22:00 12/10/24 12:03 Acetaminophen 325 Mg Tablet PO 650 mg Q4H PRN Administration Mild Pain (1-3) or Fever Hydrocodone Bitart/Acetaminophen 1 tab 12/07/24 10:05 12/14/24 09:15 Hydrocodone/Acetaminophen (*Crx) 5-325 Mg Tablet PO 1 tab Q6H PRN Administration Pain Rated 4-6 Bisacodyl 10 mg 12/14/24 12:29 12/14/24 13:20 Bisacodyl 5 Mg Tablet Ec PO 10 mg QAM PRN Administration Constipation Cefuroxime Axetil 500 mg 12/09/24 21:00 12/13/24 21:34 Cefuroxime Axetil 250 Mg Tablet PO 01/17/25 23:59 500 mg Q12HR@1200,2100 [facility]IROSLAVA Administration Clindamycin HCl 600 mg 12/10/24 21:00 12/14/24 09:15 Clindamycin Hcl 150 Mg Cap PO 01/17/25 23:59 600 mg Q12HR MIROSLAVA Administration Docusate Sodium 100 mg 12/09/24 08:50 12/14/24 09:15 Docusate Sodium 100 Mg Capsule PO 100 mg Q12H PRN Administration Constipation Ferrous Sulfate 325 mg 12/07/24 08:00 12/14/24 08:21 Ferrous Sulfate [address] PO 325 mg BIDWM [facility] Administration Folic Acid 1 mg 12/07/24 09:00 12/14/24 08:21 Folic Acid 1 Mg Tablet PO 1 mg DAILY MIROSLAVA Administration Heparin Sodium (Beef Lung) 50 units 12/08/24 09:00 Heparin Flush 50 Units/5 Ml Syringe IV PUSH QAM MIROSLAVA Heparin Sodium (Beef Lung) 50 units 12/07/24 17:29 Heparin Flush 50 Units/5 Ml Syringe IV PUSH PRN PRN after intermittent infusion Heparin Sodium (Beef Lung) 50 units 12/07/24 17:29 Heparin Flush 50 Units/5 Ml Syringe IV PUSH PRN PRN after blood draws Heparin Sodium (Porcine) 500 units 12/07/24 17:29 Heparin Sodium Lock Flush 500 Units/5 Ml Syringe IV PUSH PRN PRN see comments below Hydromorphone HCl 1 mg 12/07/24 04:07 12/09/24 21:31 Hydromorphone Hcl Inj (*Crx) 1 Mg/Ml Syr IV PUSH 1 mg Q3H PRN Administration Breakthrough Pain Sodium Chloride 1,000 mls @ 100 mls/hr 12/14/24 13:00 Normal Saline Iv IV CONT .Q10H [facility] Lidocaine 1 patch 12/07/24 09:00 12/14/24 10:34 Lidocaine 5% Patch TRANSDERM Not Given DAILY [facility] Magnesium Oxide 200 mg 12/07/24 12:20 12/14/24 08:21 Magnesium Oxide 200 Mg Tablet PO 200 mg DAILY [facility] Administration Meloxicam 7.5 mg 12/12/24 08:00 12/14/24 08:21 Meloxicam 7.5 Mg Tablet PO 7.5 mg DAILY@0800 [facility] Administration Menthol/Methyl Salicylate 1 applic 12/07/24 04:35 12/11/24 22:26 Menthol 10% / Methyl Salicylate 15% 57 Gm Tube TOPICAL 1 applic BID PRN Administration Muscle/Joint Pain Metoprolol Succinate 25 mg 12/07/24 09:00 12/14/24 08:21 Metoprolol Succinate Ext Rel 25 Mg Tabcr PO 25 mg QAM [facility] Administration Ondansetron HCl 4 mg 12/06/24 22:00 12/14/24 09:16 Ondansetron Inj 4 Mg/2 Ml Vial IV PUSH 4 mg Q4H PRN Administration Nausea Ondansetron HCl 4 mg 12/07/24 07:22 Ondansetron Inj 4 Mg/2 Ml Vial IV PUSH ONCE PRN Nausea Polyethylene Glycol 17 gm 12/07/24 09:00 12/14/24 08:22 Polyethylene Glycol 3350 17 Gm Powd.Pack PO 17 gm DAILY [facility]IR[facility]LA[facility] Administration Prednisone 25 mg 12/14/24 08:00 12/14/24 08:20 Prednisone 5 Mg Tablet PO 12/25/24 07:59 25 mg DAILY@0800 [facility]IR[facility]LA[facility] Administration Taper Senna/Docusate Sodium 1 tab 12/14/24 17:00 Senna/Docusate Sodium Tablet PO BID [facility] Sodium Chloride 1 spray 12/07/24 04:39 Saline 0.65% Reese Soln 44 Ml Btl NASAL Q6HR PRN Congestion Sodium Chloride 10 ml 12/07/24 22:00 12/14/24 07:32 Central Line Flush IV PUSH 10 ml Q8HR MIROSLAVA Administration Radiology Results: ITS Impressions Cervical Spine X-Ray 12/06/24 13:20 IMPRESSION: 1. Moderate cervical spondylosis. 2. Anterior fusion procedure from C5 to C7. Chest X-Ray 12/06/24 22:16 IMPRESSION: No acute cardiopulmonary process. Abdomen/Pelvis CT 12/08/24 17:23 IMPRESSION: Decreased blood pool density as can be seen with anemia. Mild urinary bladder wall thickening, correlate with urinalysis. Mild mesenteric and body wall edema. Knee X-Ray 12/12/24 16:55 IMPRESSION: 1. Total left knee arthroplasty with lucency again seen around the femoral post and slight interval change in positioning of the femoral component with respect to the bone, consistent with loosening. 2. Small left knee joint effusion with loose bodies. Venous Doppler Study 12/12/24 17:25 IMPRESSION: 1. No deep venous thrombosis. Labs Labs: Laboratory Results - last 24 hr 12/14/24 06:42 WBC 10.8 H RBC 2.89 L Hgb 8.2 L Hct 26.8 L MCV 92.7 MCH 28.4 MCHC 30.6 L RDW 15.5 H Plt Count 478 H MPV 9.0 Immature Gran % (Auto) 1.1 H Neut % (Auto) 66.6 Lymph % (Auto) 27.4 [place] % (Auto) 4.4 Eos % (Auto) 0.1 Baso % (Auto) 0.4 Lymph # (Auto) 2.97 [place] # (Auto) 0.5 Eos # (Auto) 0.0 Baso # (Auto) 0.0 Abs Immat Gran (auto) 0.12 H Absolute Neuts (auto) 7.2 H Absolute Nucleated RBC 0.000 Nucleated RBC % 0.0 Sodium 133 L Potassium 4.7 Chloride 100 Carbon Dioxide 31 H Anion Gap 2 L BUN 41 H D Creatinine 0.81 Estim Creat Clear Calc 41 Estimated GFR > 60 Glucose 132 H Calcium 7.8 L Total Bilirubin 0.3 AST 26 ALT 11 Alkaline Phosphatase 82 Total Protein 7.0 Albumin 2.4 L Imaging Radiologist's impression: CLINICAL INDICATION: Abdominal pain COMPARISON: 12/08/2024. TECHNIQUE: Multiple contiguous axial images of the abdomen and pelvis were performed following the administration of with 100 mL Omnipaque-350 intravenous contrast The dose-length product (DLP) was 343.65 mGy-cm. Automated exposure control and iterative reconstruction technique were employed. FINDINGS/OBSERVATIONS: Visualized lower thorax: Left basilar atelectasis. The remainder of the lungs are clear. The heart is enlarged, without pericardial effusion. Liver: The liver enhances homogeneously and is not enlarged measuring 16 cm in longitudinal dimension. Gallbladder and biliary system: The gallbladder is surgically absent. Pancreas: The pancreas enhances homogeneously without ductal dilatation. Spleen: The spleen enhances homogeneously and is not enlarged measuring 6 cm in longitudinal dimension. Kidneys: Subcentimeter foci of decreased attenuation within the bilateral kidneys, too small to characterize. The remainder of the bilateral kidneys otherwise enhance symmetrically without hydronephrosis or renal calculi. Adrenal glands: Unremarkable. Gastrointestinal tract: Diffuse fecal stasis within the entirety of the colon, markedly distending the rectum, consistent with fecal impaction. Appendix: The air-filled appendix is of normal caliber (axial series, image 131 through 139). Vasculature: Unremarkable. No aneurysmal dilatation or significant stenosis. Lymph nodes: No pathologically enlarged or morphologically suspicious lymph nodes within the retroperitoneum or at the root of the mesentery. Pelvic structures: The bladder is distended, and otherwise unremarkable. The uterus is surgically absent. Body wall and musculoskeletal: Fixation hardware within the lower lumbar spine, limiting evaluation secondary to streak metallic artifact. IMPRESSION: Diffuse fecal stasis within the entirety of the colon, markedly distending the rectum, consistent with fecal impaction. Reviewed, dictated and finalized at location [facility] Pulse Oximetry SpO2 results: 100% on room air Attestation: I personally reviewed and interpreted this pulse oximetry as follows: Interpretation: no need for supplemental oxygenation at this time Quality VTE Prophylaxis VTE prophylaxis: mechanical ordered (SCDs) Hospitalist MIPS Advance Care Plan I have confirmed that the patient's Advanced Care Plan is present, code status is documented, or surrogate decision maker is listed in patient medical record.: Yes Medication Reconciliation I have utilized all available resources to obtain, update and review the patients current medications (includes all prescriptions, OTC, herbals, cannabis, and nutritional supplements).: Yes
[2024-12-14 13:45] VITALS: BP 149/81; PULSE 72; RESP 18; TEMP 36.5; O2SAT 100
[2024-12-14] MEDS: cefuroxime axetiL 250 MG TABLET 500 MG PO ×2 (14:05→21:29)
--- NOTE | 2024-12-14 14:28 | PC.NURSE ---
Pt to CT scan via stretcher
--- NOTE | 2024-12-14 14:48 | PC.NURSE ---
Pt back in bed from CT scan
[2024-12-14] MEDS: SODIUM CHLORIDE 0.9% IV 1,000 ML 100 ML IV CONT (14:52)
[2024-12-14] MEDS: SODIUM CHLORIDE 0.9% IVPB (14:53)
[2024-12-14] MEDS: METOCLOPRAMIDE HCL IVPB (14:53)
[2024-12-14] MEDS: SENNA/DOCUSATE SODIUM TABLET 1 TAB PO (18:33)
--- NOTE | 2024-12-14 18:46 | PC.NURSE ---
Pt has orders for magnesium citrate and soap suds enema. Soap suds enema was done this morning without success. Pt opted to hold off on magnesium citrate and the second soap suds enema until further notice.
[2024-12-14 21:47] VITALS: BP 143/71; PULSE 70; RESP 18; TEMP 36.3; O2SAT 100
[2024-12-15] MEDS: MAGNESIUM CITRATE 300 ML BTL PO (00:16)
[2024-12-15] MEDS: SODIUM CHLORIDE 0.9% IV 1,000 ML 100 ML IV CONT ×3 (00:16→21:55)
[2024-12-15] MEDS: ONDANSETRON INJ 4 MG/2 ML VIAL IV PUSH (04:43)
[2024-12-15 06:00] VITALS: BP 159/92; PULSE 77; RESP 18; TEMP 36.3; O2SAT 100
[2024-12-15 07:05] LABS: Basophils Absolute Auto 0.1 K/mm3 (0.0-0.1); Basophils Percent Auto 0.5 % (0.2-1.2); Eosinophils Absolute Auto 0.1 K/mm3 (0-0.3); Eosinophils Percent Auto 0.7 % (0-4.4); Hematocrit 28.6 % (37.0-47.0); Immature Granulocyte Absolute 0.15 K/mm3 (0.00-0.031); Lymphocytes Absolute Auto 4.51 K/mm3 (0.9-3.2); Lymphocytes Percent Auto 29.3 % (18.3-44.2); Mean Corpuscular HGB Conc 31.5 g/dl (32-36); Mean Corpuscular Volume 92.3 fl (80-100); Mean Platelet Volume 8.6 fl (7.4-10.4); Monocytes Absolute Auto 0.9 K/mm3 (0.1-0.6); Monocytes Percent Auto 6.1 % (2.6-8.5); Neutrophils Absolute Auto 9.6 K/mm3 (1.3-6.7); Neutrophils Percent Auto 62.4 % (45.5-73.1); Platelet Count Result 476 k/mm3 (150-375); Red Cell Distribution Width 15.5 % (11.5-14.5); White Blood Count 15.4 K/mm3 (4.5-10.0)
[2024-12-15 07:31] LABS: Alanine Aminotransferase 14 U/L (6-35); Albumin Level 2.4 g/dL (3.5-5.1); Alkaline Phosphatase 93 U/L (38-126); Anion Gap 3 mmol/L (4-12); Aspartate Amino Transferase 26 U/L (14-36); Bilirubin,Total 0.3 mg/dL (0.2-1.3); Blood Urea Nitrogen 26 mg/dL (7-17); Carbon Dioxide 31 mmol/L (22-30); Chloride 102 mmol/L (98-107); Estimated CRCL calculation 61 ml/min; Estimated Glomerular Filt Rate > 60; Glucose 87 mg/dL (65-110); Magnesium 2.1 mg/dL (1.6-2.3); Potassium 3.4 mmol/L (3.4-5.0); Sodium 136 mmol/L (137-145)
[2024-12-15 08:50] VITALS: PULSE 71
[2024-12-15] MEDS: FOLIC ACID 1 MG TABLET PO (08:50)
[2024-12-15] MEDS: SENNA/DOCUSATE SODIUM TABLET 1 TAB PO ×2 (08:50→17:40)
[2024-12-15] MEDS: predniSONE 5 MG TABLET 20 MG PO (08:50)
[2024-12-15] MEDS: CLINDAMYCIN HCL 150 MG CAP 600 MG PO ×2 (08:50→21:56)
[2024-12-15] MEDS: MAGNESIUM OXIDE 200 MG TABLET PO (08:50)
[2024-12-15] MEDS: METOPROLOL SUCCINATE EXT REL 25 MG TABCR PO (08:50)
[2024-12-15] MEDS: MEGESTROL ACETATE (*CHEMO) 40 MG TABLET PO ×4 (08:50→21:55)
[2024-12-15] MEDS: MELOXICAM 7.5 MG TABLET PO (08:52)
[2024-12-15] MEDS: LIDOCAINE 5% PATCH 1 PATCH TRANSDERM (08:52)
[2024-12-15] MEDS: METOCLOPRAMIDE HCL 5 MG TABLET PO ×3 (12:20→21:56)
[2024-12-15] MEDS: cefuroxime axetiL 250 MG TABLET 500 MG PO ×2 (12:20→22:04)
[2024-12-15] MEDS: CENTRAL LINE FLUSH 10 ML IV PUSH ×2 (12:21→22:05)
--- NOTE | 2024-12-15 12:37 | PM.IMPN ---
Progress Note: A&P Assessment and Plan (1) Septic joint of right knee joint: Qualifiers: Septic arthritis organism: due to unspecified organism Qualified Code(s): M00.9 - Pyogenic arthritis, unspecified Code(s): M00.9 - Pyogenic arthritis, unspecified Status: Acute Assessment and Plan: - Right knee xr: Moderate lateral and patellofemoral compartment osteoarthritis with large knee joint effusion. No evident acute osseous abnormality. - antibiotics: started on rocephin and vancomycin on 12/07, transitioned to cefuroxime and clindamycin on 12/09. Course to be completed on 12/17. - analgesics - aspirate from ER suggested infections with the large amount of WBC and right shift - blood cultures obtained on 12/06: Negative - synovial fluid right knee: NGTD - knee wound cultures: NGTD - PT/OT - Orthopedics consulted s/p arthroscopy with irrigation and debridement on 12/[address] Bello per surgery, through unlikely this could be an RA flare or even gout (uric acid WNL) 12/14: Patient on clindamycin and cefuroxime oral 12/15: Right knee swollen today and more tender. Will ask ortho to see patient tomorrow. WBC elevated but patient on steroids. (2) Rheumatoid arthritis: Qualifiers: Rheumatoid arthritis location: unspecified site Rheumatoid factor presence: unspecified presence Qualified Code(s): M06.9 - Rheumatoid arthritis, unspecified Code(s): M06.9 - Rheumatoid arthritis, unspecified Status: Acute Assessment and Plan: Patient has not seen anyone for her RA in over a year. Patient was referred by her PCP to Dr. Gamez, no scheduled follow up as of yet. Discussed in depth with patient the importance of following up with the title curative specialist. Patient was previously receiving transfusions via port, however notes that she has not received infusions in over a year. Port last accessed February 2024. Patient states she was previously on MTX however was taken off 4 years ago, unsure why. She was previously on prednisone daily and stated that this helped significantly, however she stopped this herself about 1 year ago after her sister had a brain bleed while on prednisone. Patient denies any adverse reactions to herself while on prednisone. Patient states that her PCP is managing her port. This could be an acute rheumatoid flare as cultures thus far have been negative. Meloxicam ordered, if develops nausea/vomiting can DC Started on prednisone 30 mg x1 for possible RA flare on 12/13, will continue to taper down. Will also provide pain relief with topical analgesics including menthol creams and lidocaine patch 12/14: Swelling of hands improving but pain and swelling persist Steroids and 7.5 mg meloxicam being tolerated at this time 12/15: Right knee swollen today and more tender. Will ask ortho to see patient tomorrow. WBC elevated but patient on steroids. Hand swelling unchanged from yesterday. (3) Anemia: Code(s): D64.9 - Anemia, unspecified Status: Acute Assessment and Plan: H&H 5.9/19.7 on 12/09/24, s/p 2 units of PRBC's given. Post H&H 9.2/29.4. - H/H 8.7/27.8 on am labs - No signs of active bleeding - Stool for occult blood ordered - Abdominal pelvis CT without contrast: Decreased blood pool density as can be seen with anemia. Mild urinary bladder wall thickening, correlate with urinalysis. Mild mesenteric and body wall edema - Monitor labs. - Hematology consulted Likely anemia of chronic disease with RA and possible nutritional deficiencies Iron 30, TIBC 128, % saturation 23, Ferritin 880, LDH 152, Vitamin B12 pending, Folate pending. Bone marrow biopsy not indicated at this time Follow up in the outpatient setting 12/14: Hold oral iron due to SEVERE constipation, consider IV dose again if needed (4) Hypertension: Qualifiers: Hypertension type: primary hypertension Qualified Code(s): I10 - Essential (primary) hypertension Code(s): I10 - Essential (primary) hypertension Status: Acute Assessment and Plan: Chronic, continue home medications - Metoprolol 25 mg PO daily. - Monitor (5) Severe protein-calorie malnutrition: Code(s): E43 - Unspecified severe protein-calorie malnutrition Status: Acute Assessment and Plan: supplements per nutrition 12/15: Added Megace to stimulate appetite (6) Fecal impaction: Code(s): K56.41 - Fecal impaction Status: Acute Assessment and Plan: 12/14: -Abdominal pain with constipation for more than 8 days now experiencing nausea, loss of appetite and decreased oral intake -Symptoms started 3 weeks ago after viral URI and no improvement since -Co-incided with timing of right knee pain/swelling and swelling of joints in hands -All symptoms likely due to viral mediated flare of rheumatoid arthritis -Oral medications added, digital disimpaction by RN, soap suds enemas given -IV Reglan used for nausea, patient tolerated this as an infusion over 15-20 minutes, feel more comfortable giving slow IV push as needed. -CT abdomen pelvis with IV contrast obtained showing rectal dilation and diffuse colonic stool burden. My own interpretation of CT shows gas scattered throughout colon and rectal stool not completely compacted -Hold oral iron, consider additional IV infusion instead 12/15: -Patient having multiple bowel movements and abdomen feels better, less rounded (7) Nausea: Code(s): R11.0 - Nausea Status: Acute Assessment and Plan: See Fecal Impaction above 12/15: Reglan added oral before meals and Megace to stimulate appetite (8) Weight loss: Code(s): R63.4 - Abnormal weight loss Status: Acute Assessment and Plan: See fecal impaction above, symptom onset about 3 weeks ago Plan Ask ortho to see patient's knee again tomorrow IV fluids in place due to decreased oral intake Reglan and Megace added to help stimulate appetite and food intake tolerance Time Spent With Patient Time with patient: Greater than 35 minutes Subjective Date/time seen: 12/15/24 12:37 Interval history: Patient reports now having frequent bowel movements since getting oral meds and enemas yesterday. She reports still not having much of an appetite and still having terrible right knee pain. Sutures in place in the knee with significant fluctuance noted, no erythema or warmth. WBC elevated but patient is on steroids. Will ask ortho to see patient again tomorrow. Add Megace for appetite stimulant. Review of Systems Review of Systems: All systems reviewed & are unremarkable except as noted in HPI and below Exam Narrative: General: female in no acute respiratory distress who is uncomfortable appearing, seated in bedside chair HEENT: Normocephalic. Atraumatic. Extraocular movement intact. Sclera clear and anicteric. No facial asymmetry. Chest: Lungs are clear to auscultation bilaterally. No wheezes or crackles. Port to left chest without signs of infection. CV: Heart was regular rate and rhythm. S1-S2. No murmurs, gallops, or rubs. Abd: Abdomen was soft, mildly tender, mildly rotund with hypoactive bowel sound Ext: No clubbing, cyanosis, or edema. 2+ DP pulses bilaterally. Swelling to the MCP joints with improved pain and weakness compared to yesterday. Right knee sutures in place, no drainage, no warmth or erythema. Fluctuance noted. Neuro: Patient is alert. Speech is clear. Objective Data Vital Signs Vital Signs: Vital Signs - 24 hr 12/14/24 13:45 12/14/24 20:00 12/14/24 21:47 Temperature 36.5 C 36.3 C L Pulse Rate 72 70 Respiratory Rate 18 18 Blood Pressure 149/81 H 143/71 H Pulse Oximetry 100 100 Oxygen Delivery Room Air Fraction of Inspired Oxygen 12/15/24 06:00 12/15/24 08:50 12/15/24 08:50 Temperature 36.3 C L Pulse Rate 77 71 Respiratory Rate 18 Blood Pressure 159/92 H Pulse Oximetry 100 Oxygen Delivery Room Air Fraction of Inspired Oxygen Intake/Output Intake/Output: Intake & Output 12/12/24 12/13/24 12/14/24 12/15/24 23:59 23:59 23:59 23:59 Intake Total 1667 3252 919 2952 Output Total 500 600 300 550 Balance 1167 0528 751 2846 Meds/Results Medications: Active Medications Generic Name Dose Route Start Last Admin Trade Name Freq PRN Reason Stop Dose Admin Acetaminophen 650 mg 12/06/24 22:00 12/10/24 12:03 Acetaminophen 325 Mg Tablet PO 650 mg Q4H PRN Administration Mild Pain (1-3) or Fever Hydrocodone Bitart/Acetaminophen 1 tab 12/07/24 10:05 12/14/24 09:15 Hydrocodone/Acetaminophen (*Crx) 5-325 Mg Tablet PO 1 tab Q6H PRN Administration Pain Rated 4-6 Bisacodyl 10 mg 12/14/24 12:29 12/14/24 13:20 Bisacodyl 5 Mg Tablet Ec PO 10 mg QAM PRN Administration Constipation Cefuroxime Axetil 500 mg 12/09/24 21:00 12/15/24 12:20 Cefuroxime Axetil 250 Mg Tablet PO 01/17/25 23:59 500 mg Q12HR@1200,2100 MIROSLAVA Administration Clindamycin HCl 600 mg 12/10/24 21:00 12/15/24 08:50 Clindamycin Hcl 150 Mg Cap PO 01/17/25 23:59 600 mg Q12HR MIROSLAVA Administration Docusate Sodium 100 mg 12/09/24 08:50 12/14/24 09:15 Docusate Sodium 100 Mg Capsule PO 100 mg Q12H PRN Administration Constipation Ferrous Sulfate 325 mg 12/07/24 08:00 12/14/24 08:21 Ferrous Sulfate [address] PO 325 mg BIDWM MIROSLAVA Administration Folic Acid 1 mg 12/07/24 09:00 12/15/24 08:50 Folic Acid 1 Mg Tablet PO 1 mg DAILY MIROSLAVA Administration Heparin Sodium (Beef Lung) 50 units 12/08/24 09:00 Heparin Flush 50 Units/5 Ml Syringe IV PUSH QAM MIROSLAVA Heparin Sodium (Beef Lung) 50 units 12/07/24 17:29 Heparin Flush 50 Units/5 Ml Syringe IV PUSH PRN PRN after intermittent infusion Heparin Sodium (Beef Lung) 50 units 12/07/24 17:29 Heparin Flush 50 Units/5 Ml Syringe IV PUSH PRN PRN after blood draws Heparin Sodium (Porcine) 500 units 12/07/24 17:29 Heparin Sodium Lock Flush 500 Units/5 Ml Syringe IV PUSH PRN PRN see comments below Hydromorphone HCl 1 mg 12/07/24 04:07 12/09/24 21:31 Hydromorphone Hcl Inj (*Crx) 1 Mg/Ml Syr IV PUSH 1 mg Q3H PRN Administration Breakthrough Pain Sodium Chloride 1,000 mls @ 100 mls/hr 12/14/24 13:00 12/15/24 12:20 Normal Saline Iv IV CONT 100 mls/hr .Q10H MIROSLAVA Administration Lidocaine 1 patch 12/07/24 09:00 12/15/24 08:52 Lidocaine 5% Patch TRANSDERM 1 patch DAILY MIROSLAVA Administration Magnesium Oxide 200 mg 12/07/24 12:20 12/15/24 08:50 Magnesium Oxide 200 Mg Tablet PO 200 mg DAILY MIROSLAVA Administration Megestrol Acetate 40 mg 12/15/24 09:00 12/15/24 12:20 Megestrol Acetate (*Chemo) 40 Mg Tablet PO 40 mg QID MIROSALVA Administration Meloxicam 7.5 mg 12/12/24 08:00 12/15/24 08:52 Meloxicam 7.5 Mg Tablet PO 7.5 mg DAILY@0800 MIROSLAVA Administration Menthol/Methyl Salicylate 1 applic 12/07/24 04:35 12/11/24 22:26 Menthol 10% / Methyl Salicylate 15% 57 Gm Tube TOPICAL 1 applic BID PRN Administration Muscle/Joint Pain Metoclopramide HCl 5 mg 12/15/24 11:30 12/15/24 12:20 Metoclopramide Hcl 5 Mg Tablet PO 5 mg ACHS MIROSLAVA Administration Metoprolol Succinate 25 mg 12/07/24 09:00 12/15/24 08:50 Metoprolol Succinate Ext Rel 25 Mg Tabcr PO 25 mg QAM MIROSLAVA Administration Ondansetron HCl 4 mg 12/06/24 22:00 12/15/24 04:43 Ondansetron Inj 4 Mg/2 Ml Vial IV PUSH 4 mg Q4H PRN Administration Nausea Ondansetron HCl 4 mg 12/07/24 07:22 Ondansetron Inj 4 Mg/2 Ml Vial IV PUSH ONCE PRN Nausea Polyethylene Glycol 17 gm 12/07/24 09:00 12/15/24 08:53 Polyethylene Glycol 3350 17 Gm Powd.Pack PO Not Given DAILY MIROSLAVA Prednisone 25 mg 12/14/24 08:00 12/15/24 08:50 Prednisone 5 Mg Tablet PO 12/25/24 07:59 25 mg DAILY@0800 MIROSLAVA Administration Taper Senna/Docusate Sodium 1 tab 12/14/24 17:00 12/15/24 08:50 Senna/Docusate Sodium Tablet PO 1 tab BID MIROSLAVA Administration Sodium Chloride 1 spray 12/07/24 04:39 Saline 0.65% Reese Soln 44 Ml Btl NASAL Q6HR PRN Congestion Sodium Chloride 10 ml 12/07/24 22:00 12/15/24 12:21 Central Line Flush IV PUSH 10 ml Q8HR MIROSLAVA Administration Radiology Results: ITS Impressions Cervical Spine X-Ray 12/06/24 13:20 IMPRESSION: 1. Moderate cervical spondylosis. 2. Anterior fusion procedure from C5 to C7. Chest X-Ray 12/06/24 22:16 IMPRESSION: No acute cardiopulmonary process. Knee X-Ray 12/12/24 16:55 IMPRESSION: 1. Total left knee arthroplasty with lucency again seen around the femoral post and slight interval change in positioning of the femoral component with respect to the bone, consistent with loosening. 2. Small left knee joint effusion with loose bodies. Venous Doppler Study 12/12/24 17:25 IMPRESSION: 1. No deep venous thrombosis. Abdomen/Pelvis CT 12/14/24 14:44 IMPRESSION: Diffuse fecal stasis within the entirety of the colon, markedly distending the rectum, consistent with fecal impaction. Labs Labs: Laboratory Results - last 24 hr 12/15/24 06:53 WBC 15.4 H RBC 3.10 L Hgb 9.0 L Hct 28.6 L MCV 92.3 MCH 29.0 MCHC 31.5 L RDW 15.5 H Plt Count 476 H MPV 8.6 Immature Gran % (Auto) 1.0 H Neut % (Auto) 62.4 Lymph % (Auto) 29.3 Woodson % (Auto) 6.1 Eos % (Auto) 0.7 Baso % (Auto) 0.5 Lymph # (Auto) 4.51 H Woodson # (Auto) 0.9 H Eos # (Auto) 0.1 Baso # (Auto) 0.1 Abs Immat Gran (auto) 0.15 H Absolute Neuts (auto) 9.6 H Absolute Nucleated RBC 0.000 Nucleated RBC % 0.0 Sodium 136 L Potassium 3.4 Chloride 102 Carbon Dioxide 31 H Anion Gap 3 L BUN 26 H D Creatinine 0.53 L Estim Creat Clear Calc 61 Estimated GFR > 60 Glucose 87 Calcium 8.0 L Magnesium 2.1 Total Bilirubin 0.3 AST 26 ALT 14 Alkaline Phosphatase 93 Total Protein 7.0 Albumin 2.4 L Imaging Radiologist's impression: CLINICAL INDICATION: Abdominal pain COMPARISON: 12/08/2024. TECHNIQUE: Multiple contiguous axial images of the abdomen and pelvis were performed following the administration of with 100 mL Omnipaque-350 intravenous contrast The dose-length product (DLP) was 343.65 mGy-cm. Automated exposure control and iterative reconstruction technique were employed. FINDINGS/OBSERVATIONS: Visualized lower thorax: Left basilar atelectasis. The remainder of the lungs are clear. The heart is enlarged, without pericardial effusion. Liver: The liver enhances homogeneously and is not enlarged measuring 16 cm in longitudinal dimension. Gallbladder and biliary system: The gallbladder is surgically absent. Pancreas: The pancreas enhances homogeneously without ductal dilatation. Spleen: The spleen enhances homogeneously and is not enlarged measuring 6 cm in longitudinal dimension. Kidneys: Subcentimeter foci of decreased attenuation within the bilateral kidneys, too small to characterize. The remainder of the bilateral kidneys otherwise enhance symmetrically without hydronephrosis or renal calculi. Adrenal glands: Unremarkable. Gastrointestinal tract: Diffuse fecal stasis within the entirety of the colon, markedly distending the rectum, consistent with fecal impaction. Appendix: The air-filled appendix is of normal caliber (axial series, image 131 through 139). Vasculature: Unremarkable. No aneurysmal dilatation or significant stenosis. Lymph nodes: No pathologically enlarged or morphologically suspicious lymph nodes within the retroperitoneum or at the root of the mesentery. Pelvic structures: The bladder is distended, and otherwise unremarkable. The uterus is surgically absent. Body wall and musculoskeletal: Fixation hardware within the lower lumbar spine, limiting evaluation secondary to streak metallic artifact. IMPRESSION: Diffuse fecal stasis within the entirety of the colon, markedly distending the rectum, consistent with fecal impaction. Reviewed, dictated and finalized at location A. D REPRESENTATIVES DIRECTOR Pulse Oximetry SpO2 results: 100% on room air Attestation: I personally reviewed and interpreted this pulse oximetry as follows: Interpretation: no need for supplemental oxygenation at this time Quality VTE Prophylaxis VTE prophylaxis: mechanical ordered (SCDs)
[2024-12-15 14:49] VITALS: BP 145/80; PULSE 74; RESP 18; TEMP 36.5; O2SAT 100
[2024-12-15 22:38] VITALS: BP 154/78; PULSE 73; RESP 18; TEMP 36.1; O2SAT 100
[2024-12-16 06:00] VITALS: BP 175/88; PULSE 109; RESP 20; TEMP 36.1; O2SAT 100
[2024-12-16] MEDS: CENTRAL LINE FLUSH 10 ML IV PUSH ×2 (06:51→14:28)
[2024-12-16] MEDS: METOCLOPRAMIDE HCL 5 MG TABLET PO ×4 (06:51→21:00)
[2024-12-16 07:11] LABS: Basophils Absolute Auto 0.1 K/mm3 (0.0-0.1); Basophils Percent Auto 0.5 % (0.2-1.2); Eosinophils Absolute Auto 0.1 K/mm3 (0-0.3); Eosinophils Percent Auto 0.5 % (0-4.4); Hematocrit 25.2 % (37.0-47.0); Hemoglobin 7.7 g/dL (12.0-15.0); Immature Granulocyte Absolute 0.24 K/mm3 (0.00-0.031); Immature Granulocyte Percent A 1.6 % (0-0.5); Lymphocytes Absolute Auto 5.03 K/mm3 (0.9-3.2); Lymphocytes Percent Auto 33.5 % (18.3-44.2); Mean Corpuscular HGB Conc 30.6 g/dl (32-36); Mean Corpuscular Hemoglobin 28.3 pg (26-34); Mean Corpuscular Volume 92.6 fl (80-100); Mean Platelet Volume 8.7 fl (7.4-10.4); Monocytes Absolute Auto 1.1 K/mm3 (0.1-0.6); Monocytes Percent Auto 7.4 % (2.6-8.5); Neutrophils Absolute Auto 8.5 K/mm3 (1.3-6.7); Neutrophils Percent Auto 56.5 % (45.5-73.1); Platelet Count Result 442 k/mm3 (150-375); Red Blood Count 2.72 M/mm3 (4.2-5.4); Red Cell Distribution Width 15.8 % (11.5-14.5)
[2024-12-16 07:30] LABS: Alanine Aminotransferase 14 U/L (6-35); Albumin Level 2.2 g/dL (3.5-5.1); Alkaline Phosphatase 87 U/L (38-126); Anion Gap 1 mmol/L (4-12); Aspartate Amino Transferase 25 U/L (14-36); Bilirubin,Total 0.3 mg/dL (0.2-1.3); Blood Urea Nitrogen 25 mg/dL (7-17); Calcium 7.6 mg/dL (8.4-10.2); Carbon Dioxide 30 mmol/L (22-30); Chloride 105 mmol/L (98-107); Estimated CRCL calculation 59 ml/min; Estimated Glomerular Filt Rate > 60; Glucose 92 mg/dL (65-110); Magnesium 1.9 mg/dL (1.6-2.3); Sodium 136 mmol/L (137-145)
[2024-12-16] MEDS: predniSONE 5 MG TABLET 20 MG PO (08:52)
[2024-12-16 08:53] VITALS: PULSE 79
[2024-12-16] MEDS: MAGNESIUM OXIDE 200 MG TABLET PO (08:53)
[2024-12-16] MEDS: MEGESTROL ACETATE (*CHEMO) 40 MG TABLET PO ×3 (08:53→21:00)
[2024-12-16] MEDS: METOPROLOL SUCCINATE EXT REL 25 MG TABCR PO (08:53)
[2024-12-16] MEDS: MELOXICAM 7.5 MG TABLET PO (08:53)
[2024-12-16] MEDS: FOLIC ACID 1 MG TABLET PO (08:56)
[2024-12-16] MEDS: LIDOCAINE 5% PATCH 1 PATCH TRANSDERM (08:57)
[2024-12-16] MEDS: SENNA/DOCUSATE SODIUM TABLET 1 TAB PO ×2 (08:57→18:05)
[2024-12-16] MEDS: CLINDAMYCIN HCL 150 MG CAP 600 MG PO ×2 (11:02→21:00)
[2024-12-16] MEDS: cefuroxime axetiL 250 MG TABLET 500 MG PO ×2 (11:02→20:59)
--- NOTE | 2024-12-16 11:08 | PCNFU ---
Nutrition Follow-Up Complete: Severe Protein Calorie Malnutrition as related to inadequate protein energy intake as evidenced by weight loss of 28 ibs (20%) in 6 months, severe muscle wasting (temporalis) and severe fat loss loss (orbital fat pads). Adequate Intake of at least 75% of meals/supplements - Progressing. Intakes 10-75% last 48 hours. 65% breakfast Goal: Pt current nutrition is Regular diet. Ensure Enlive TID (350 kcal, 20 g protein each). Nutrition recommendation: No new nutrition recommendations Last recorded weight is 49.2 kg. Bowel Motility: +2 BMs 12/16/24. +6 Bms 12/14/24 Labs Reviewed: Hgb 7.7, Hct 25.2, Alb 2.2, Na 136, BUN 25, Cre 0.55 Meds Noted: Reglan, Megace, miralax, heparin, prednisone, zofran Skin: No pressure injuries Additional Notes: Intakes improving. Pt was put on Megace and Reglan for bowel impaction and BMs are improving. Appetite is fair. Continue current nutrition care plan and orders. Agree with orders. RD will monitor, weight, labs, skin, oral intake, meds every 5 days.
[2024-12-16 14:00] VITALS: BP 144/78; PULSE 78; RESP 16; TEMP 36.6; O2SAT 100
--- NOTE | 2024-12-16 14:23 | PCPTNOTE ---
On 12/16/24, the student, ESPINOZA Larsen, provided care and completed [facility] documentation on this patient. I have reviewed the student's documentation and agree with the findings.
--- NOTE | 2024-12-16 14:47 | PM.IMPN ---
Progress Note: A&P Assessment and Plan (1) Septic joint of right knee joint: Qualifiers: Septic arthritis organism: due to unspecified organism Qualified Code(s): M00.9 - Pyogenic arthritis, unspecified Code(s): M00.9 - Pyogenic arthritis, unspecified Status: Acute Assessment and Plan: - Right knee xr: Moderate lateral and patellofemoral compartment osteoarthritis with large knee joint effusion. No evident acute osseous abnormality. - antibiotics: started on rocephin and vancomycin on 12/07, transitioned to cefuroxime and clindamycin on 12/09. Course to be completed on 12/17. - analgesics as needed. - aspirate from ER suggested infections with the large amount of WBC and right shift. Ortho consulted and patient had washout preformed on 12/[address] Bello - blood cultures obtained on 12/06: Negative - synovial fluid right knee: NGTD - knee wound cultures: NGTD - PT/OT, SNF authorization pending. - patient on steroids, treating like RA flare. (2) Rheumatoid arthritis: Qualifiers: Rheumatoid arthritis location: unspecified site Rheumatoid factor presence: unspecified presence Qualified Code(s): M06.9 - Rheumatoid arthritis, unspecified Code(s): M06.9 - Rheumatoid arthritis, unspecified Status: Acute Assessment and Plan: Patient has not seen anyone for her RA in over a year. Patient was referred by her PCP to Dr. Gamez, no scheduled follow up as of yet. Discussed in depth with patient the importance of following up with the senior internal auditor. Patient was previously receiving transfusions via port, however notes that she has not received infusions in over a year. Port last accessed February 2024. Patient states she was previously on MTX however was taken off 4 years ago, unsure why. She was previously on prednisone daily and stated that this helped significantly, however she stopped this herself about 1 year ago after her sister had a brain bleed while on prednisone. Patient denies any adverse reactions to herself while on prednisone. Patient states that her PCP is managing her port. -This could be an acute rheumatoid flare as cultures thus far have been negative. -Meloxicam ordered, if develops nausea/vomiting can DC -Started on prednisone 30 mg x1 for possible RA flare on 12/13, will continue to taper down. -Will also provide pain relief with topical analgesics including menthol creams and lidocaine patch (3) Anemia: Code(s): D64.9 - Anemia, unspecified Status: Acute Assessment and Plan: H&H 5.9/19.7 on 12/09/24, s/p 2 units of PRBC's given. Post H&H 9.2/29.4. - H/H 7.7/25.2 - No signs of active bleeding - Stool for occult blood ordered - Abdominal pelvis CT without contrast: Decreased blood pool density as can be seen with anemia. Mild urinary bladder wall thickening, correlate with urinalysis. Mild mesenteric and body wall edema - Hematology consulted. Likely anemia of chronic disease with RA and possible nutritional deficiencies. - Iron 30, TIBC 128, % saturation 23, Ferritin 880, LDH 152, Vitamin B12 839, Folate 11.4. - Bone marrow biopsy not indicated at this time - Follow up in the outpatient setting - Discontinue IV fluids, could be contributing to low hgb. Repeat AM labs. (4) Hypertension: Qualifiers: Hypertension type: primary hypertension Qualified Code(s): I10 - Essential (primary) hypertension Code(s): I10 - Essential (primary) hypertension Status: Acute Assessment and Plan: Chronic, continue home medications - Metoprolol 25 mg PO daily. - Monitor (5) Severe protein-calorie malnutrition: Code(s): E43 - Unspecified severe protein-calorie malnutrition Status: Acute Assessment and Plan: supplements per nutrition 12/15: Added Megace to stimulate appetite (6) Fecal impaction: Code(s): K56.41 - Fecal impaction Status: Acute Assessment and Plan: 12/14: -Abdominal pain with constipation for more than 8 days now experiencing nausea, loss of appetite and decreased oral intake -Symptoms started 3 weeks ago after viral URI and no improvement since -Co-incided with timing of right knee pain/swelling and swelling of joints in hands -All symptoms likely due to viral mediated flare of rheumatoid arthritis -Oral medications added, digital disimpaction by RN, soap suds enemas given -IV Reglan used for nausea, patient tolerated this as an infusion over 15-20 minutes, feel more comfortable giving slow IV push as needed. -CT abdomen pelvis with IV contrast obtained showing rectal dilation and diffuse colonic stool burden. My own interpretation of CT shows gas scattered throughout colon and rectal stool not completely compacted -Hold oral iron, consider additional IV infusion instead 12/15: -Patient having multiple bowel movements and abdomen feels better, less rounded 12/16: resolved. (7) Nausea: Code(s): R11.0 - Nausea Status: Acute Assessment and Plan: 12/15: Reglan added oral before meals and Megace to stimulate appetite (8) Weight loss: Code(s): R63.4 - Abnormal weight loss Status: Acute Assessment and Plan: See fecal impaction above, symptom onset about 3 weeks ago Time Spent With Patient Time with patient: Greater than 35 minutes Subjective Date/time seen: 12/16/24 14:47 Interval history: patient doing well today with no new complaints. Waiting on SNF placement. Will likely be able to discharge tomorrow. Objective Data Vital Signs Vital Signs: Vital Signs - 24 hr 12/15/24 14:49 12/15/24 20:00 12/15/24 22:38 Temperature 97.7 F 97.0 F L Pulse Rate 74 73 Respiratory Rate 18 18 Blood Pressure 145/80 H 154/78 H Pulse Oximetry 100 100 Oxygen Delivery Room Air 12/16/24 06:00 12/16/24 08:52 12/16/24 08:53 Temperature 97.0 F L Pulse Rate 109 H 79 Respiratory Rate 20 Blood Pressure 175/88 H Pulse Oximetry 100 Oxygen Delivery Room Air 12/16/24 14:00 Temperature 97.8 F Pulse Rate 78 Respiratory Rate 16 Blood Pressure 144/78 H Pulse Oximetry 100 Oxygen Delivery Intake/Output Intake/Output: Intake & Output 12/13/24 12/14/24 12/15/24 12/16/24 23:59 23:59 23:59 23:59 Intake Total 8542 852 3221.3 1804 Output Total 600 300 550 1 Balance 5709 295 0674.3 1803 Meds/Results Medications: Active Medications Generic Name Dose Route Start Last Admin Trade Name Freq PRN Reason Stop Dose Admin Acetaminophen 650 mg 12/06/24 22:00 12/10/24 12:03 Acetaminophen 325 Mg Tablet PO 650 mg Q4H PRN Administration Mild Pain (1-3) or Fever Hydrocodone Bitart/Acetaminophen 1 tab 12/07/24 10:05 12/14/24 09:15 Hydrocodone/Acetaminophen (*Crx) 5-325 Mg Tablet PO 1 tab Q6H PRN Administration Pain Rated 4-6 Bisacodyl 10 mg 12/14/24 12:29 12/14/24 13:20 Bisacodyl 5 Mg Tablet Ec PO 10 mg QAM PRN Administration Constipation Cefuroxime Axetil 500 mg 12/09/24 21:00 12/16/24 11:02 Cefuroxime Axetil 250 Mg Tablet PO 01/17/25 23:59 500 mg Q12HR@1200,2100 MIROSLAVA Administration Clindamycin HCl 600 mg 12/10/24 21:00 12/16/24 11:02 Clindamycin Hcl 150 Mg Cap PO 01/17/25 23:59 600 mg Q12HR MIROSLAVA Administration Docusate Sodium 100 mg 12/09/24 08:50 12/14/24 09:15 Docusate Sodium 100 Mg Capsule PO 100 mg Q12H PRN Administration Constipation Ferrous Sulfate 325 mg 12/07/24 08:00 12/14/24 08:21 Ferrous Sulfate [address] PO 325 mg BIDWM MIROSLAVA Administration Folic Acid 1 mg 12/07/24 09:00 12/16/24 08:56 Folic Acid 1 Mg Tablet PO 1 mg DAILY MIROSLAVA Administration Heparin Sodium (Beef Lung) 50 units 12/08/24 09:00 Heparin Flush 50 Units/5 Ml Syringe IV PUSH QAM MIROSLAVA Heparin Sodium (Beef Lung) 50 units 12/07/24 17:29 Heparin Flush 50 Units/5 Ml Syringe IV PUSH PRN PRN after intermittent infusion Heparin Sodium (Beef Lung) 50 units 12/07/24 17:29 Heparin Flush 50 Units/5 Ml Syringe IV PUSH PRN PRN after blood draws Heparin Sodium (Porcine) 500 units 12/07/24 17:29 Heparin Sodium Lock Flush 500 Units/5 Ml Syringe IV PUSH PRN PRN see comments below Lidocaine 1 patch 12/07/24 09:00 12/16/24 08:57 Lidocaine 5% Patch TRANSDERM 1 patch DAILY MIROSLAVA Administration Magnesium Oxide 200 mg 12/07/24 12:20 12/16/24 08:53 Magnesium Oxide 200 Mg Tablet PO 200 mg DAILY MIROSLAVA Administration Megestrol Acetate 40 mg 12/15/24 09:00 12/16/24 14:28 Megestrol Acetate (*Chemo) 40 Mg Tablet PO Not Given QID [facility] Meloxicam 7.5 mg 12/12/24 08:00 12/16/24 08:53 Meloxicam 7.5 Mg Tablet PO 7.5 mg DAILY@0800 MIROSLAVA Administration Menthol/Methyl Salicylate 1 applic 12/07/24 04:35 12/11/24 22:26 Menthol 10% / Methyl Salicylate 15% 57 Gm Tube TOPICAL 1 applic BID PRN Administration Muscle/Joint Pain Metoclopramide HCl 5 mg 12/15/24 11:30 12/16/24 11:02 Metoclopramide Hcl 5 Mg Tablet PO 5 mg ACHS MIROSLAVA Administration Metoprolol Succinate 25 mg 12/07/24 09:00 12/16/24 08:53 Metoprolol Succinate Ext Rel 25 Mg Tabcr PO 25 mg QAM MIROSLAVA Administration Ondansetron HCl 4 mg 12/06/24 22:00 12/15/24 04:43 Ondansetron Inj 4 Mg/2 Ml Vial IV PUSH 4 mg Q4H PRN Administration Nausea Ondansetron HCl 4 mg 12/07/24 07:22 Ondansetron Inj 4 Mg/2 Ml Vial IV PUSH ONCE PRN Nausea Polyethylene Glycol 17 gm 12/07/24 09:00 12/16/24 08:57 Polyethylene Glycol 3350 17 Gm Powd.Pack PO Not Given DAILY [facility] Prednisone 20 mg 12/14/24 08:00 12/16/24 08:52 Prednisone 5 Mg Tablet PO 12/25/24 07:59 20 mg DAILY@0800 [facility] Administration Taper Senna/Docusate Sodium 1 tab 12/14/24 17:00 12/16/24 08:57 Senna/Docusate Sodium Tablet PO 1 tab BID MIROSLAVA Administration Sodium Chloride 1 spray 12/07/24 04:39 Saline 0.65% Reese Soln 44 Ml Btl NASAL Q6HR PRN Congestion Sodium Chloride 10 ml 12/07/24 22:00 12/16/24 14:28 Central Line Flush IV PUSH 10 ml Q8HR MIROSLAVA Administration Radiology Results: ITS Impressions Cervical Spine X-Ray 12/06/24 13:20 IMPRESSION: 1. Moderate cervical spondylosis. 2. Anterior fusion procedure from C5 to C7. Chest X-Ray 12/06/24 22:16 IMPRESSION: No acute cardiopulmonary process. Knee X-Ray 12/12/24 16:55 IMPRESSION: 1. Total left knee arthroplasty with lucency again seen around the femoral post and slight interval change in positioning of the femoral component with respect to the bone, consistent with loosening. 2. Small left knee joint effusion with loose bodies. Venous Doppler Study 12/12/24 17:25 IMPRESSION: 1. No deep venous thrombosis. Abdomen/Pelvis CT 12/14/24 14:44 IMPRESSION: Diffuse fecal stasis within the entirety of the colon, markedly distending the rectum, consistent with fecal impaction. Labs Labs: Laboratory Results - last 24 hr 12/16/24 06:56 WBC 15.0 H RBC 2.72 L Hgb 7.7 L Hct 25.2 L MCV 92.6 MCH 28.3 MCHC 30.6 L RDW 15.8 H Plt Count 442 H MPV 8.7 Immature Gran % (Auto) 1.6 H Neut % (Auto) 56.5 Lymph % (Auto) 33.5 [place] % (Auto) 7.4 Eos % (Auto) 0.5 Baso % (Auto) 0.5 Lymph # (Auto) 5.03 H [place] # (Auto) 1.1 H Eos # (Auto) 0.1 Baso # (Auto) 0.1 Abs Immat Gran (auto) 0.24 H Absolute Neuts (auto) 8.5 H Absolute Nucleated RBC 0.000 Nucleated RBC % 0.0 Sodium 136 L Potassium 4.0 Chloride 105 Carbon Dioxide 30 Anion Gap 1 L BUN 25 H Creatinine 0.55 L Estim Creat Clear Calc 59 Estimated GFR > 60 Glucose 92 Calcium 7.6 L Magnesium 1.9 Total Bilirubin 0.3 AST 25 ALT 14 Alkaline Phosphatase 87 Total Protein 7.0 Albumin 2.2 L Quality VTE Prophylaxis VTE prophylaxis: mechanical ordered (SCDs)
[2024-12-16 22:00] VITALS: BP 150/84; PULSE 85; RESP 20; TEMP 36.6; O2SAT 100
[2024-12-17] MEDS: ACETAMINOPHEN 325 MG TABLET 650 MG PO (03:42)
[2024-12-17] MEDS: CENTRAL LINE FLUSH 10 ML IV PUSH ×2 (03:43→05:13)
[2024-12-17] MEDS: METOCLOPRAMIDE HCL 5 MG TABLET PO ×3 (05:13→18:47)
[2024-12-17] MEDS: HYDROcodone/acetaminophen (*CRX) 5-325 MG TABLET 1 TAB PO (05:26)
[2024-12-17 05:47] LABS: Basophils Absolute Auto 0.1 K/mm3 (0.0-0.1); Basophils Percent Auto 0.4 % (0.2-1.2); Eosinophils Absolute Auto 0.1 K/mm3 (0-0.3); Eosinophils Percent Auto 0.7 % (0-4.4); Hematocrit 24.8 % (37.0-47.0); Hemoglobin 7.7 g/dL (12.0-15.0); Immature Granulocyte Absolute 0.36 K/mm3 (0.00-0.031); Immature Granulocyte Percent A 2.7 % (0-0.5); Lymphocytes Absolute Auto 5.13 K/mm3 (0.9-3.2); Lymphocytes Percent Auto 38.1 % (18.3-44.2); Mean Corpuscular Hemoglobin 28.8 pg (26-34); Mean Corpuscular Volume 92.9 fl (80-100); Mean Platelet Volume 8.8 fl (7.4-10.4); Monocytes Absolute Auto 0.9 K/mm3 (0.1-0.6); Monocytes Percent Auto 6.4 % (2.6-8.5); Neutrophils Percent Auto 51.7 % (45.5-73.1); Platelet Count Result 434 k/mm3 (150-375); Red Blood Count 2.67 M/mm3 (4.2-5.4); Red Cell Distribution Width 16.1 % (11.5-14.5); White Blood Count 13.5 K/mm3 (4.5-10.0)
[2024-12-17 05:56] LABS: Chloride 105 mmol/L (98-107)
[2024-12-17 06:00] VITALS: BP 172/88; PULSE 78; RESP 20; TEMP 36.1; O2SAT 100
[2024-12-17 06:00] LABS: Alanine Aminotransferase 11 U/L (6-35); Albumin Level 1.9 g/dL (3.5-5.1); Alkaline Phosphatase 77 U/L (38-126); Anion Gap 5 mmol/L (4-12); Aspartate Amino Transferase 24 U/L (14-36); Bilirubin,Total 0.3 mg/dL (0.2-1.3); Blood Urea Nitrogen 25 mg/dL (7-17); Calcium 7.1 mg/dL (8.4-10.2); Carbon Dioxide 26 mmol/L (22-30); Estimated CRCL calculation 76 ml/min; Estimated Glomerular Filt Rate > 60; Glucose 88 mg/dL (65-110); Magnesium 1.8 mg/dL (1.6-2.3); Potassium 3.4 mmol/L (3.4-5.0); Sodium 136 mmol/L (137-145)
[2024-12-17] MEDS: SENNA/DOCUSATE SODIUM TABLET 1 TAB PO ×2 (09:03→18:48)
[2024-12-17] MEDS: FOLIC ACID 1 MG TABLET PO (09:04)
[2024-12-17] MEDS: CLINDAMYCIN HCL 150 MG CAP 600 MG PO (09:04)
[2024-12-17] MEDS: MELOXICAM 7.5 MG TABLET PO (09:04)
[2024-12-17 09:05] VITALS: BP 145/98
[2024-12-17 09:09] VITALS: PULSE 83
[2024-12-17] MEDS: METOPROLOL SUCCINATE EXT REL 25 MG TABCR PO (09:09)
[2024-12-17] MEDS: predniSONE 5 MG TABLET 20 MG PO (09:09)
[2024-12-17] MEDS: MEGESTROL ACETATE (*CHEMO) 40 MG TABLET PO ×3 (09:09→18:48)
[2024-12-17] MEDS: LIDOCAINE 5% PATCH 1 PATCH TRANSDERM (09:09)
[2024-12-17] MEDS: MAGNESIUM OXIDE 200 MG TABLET PO (09:09)
--- NOTE | 2024-12-17 10:43 | PM.DS ---
DS: Admitting Diagnosis Discharge Date December 17, 2024 Admitting Diagnosis right knee septic joint, hypertension, rheumatoid arthritis DS: Discharge Diagnosis Discharge Diagnosis (1) Septic joint of right knee joint: Qualifiers: Septic arthritis organism: due to unspecified organism Qualified Code(s): M00.9 - Pyogenic arthritis, unspecified Code(s): M00.9 - Pyogenic arthritis, unspecified Status: Acute Assessment and Plan: - Right knee xr: Moderate lateral and patellofemoral compartment osteoarthritis with large knee joint effusion. No evident acute osseous abnormality. - antibiotics: started on rocephin and vancomycin on 12/07, transitioned to cefuroxime and clindamycin on 12/09. Course to be completed on 12/17. - analgesics as needed. - aspirate from ER suggested infections with the large amount of WBC and right shift. Ortho consulted and patient had washout preformed on 12/[address] Bello - blood cultures obtained on 12/06: Negative - synovial fluid right knee: NGTD - knee wound cultures: NGTD - PT/OT, SNF authorization pending. - patient on steroids, treating like RA flare. 12/17/24: continue steroid taper on discharge continue antibiotics to completion of December 17. Follow-up with Dr. Bello as outpatient. (2) Rheumatoid arthritis: Qualifiers: Rheumatoid arthritis location: unspecified site Rheumatoid factor presence: unspecified presence Qualified Code(s): M06.9 - Rheumatoid arthritis, unspecified Code(s): M06.9 - Rheumatoid arthritis, unspecified Status: Acute Assessment and Plan: Patient has not seen anyone for her RA in over a year. Patient was referred by her PCP to Dr. Gamez, no scheduled follow up as of yet. Discussed in depth with patient the importance of following up with the sheetfed press operator. Patient was previously receiving transfusions via port, however notes that she has not received infusions in over a year. Port last accessed February 2024. Patient states she was previously on MTX however was taken off 4 years ago, unsure why. She was previously on prednisone daily and stated that this helped significantly, however she stopped this herself about 1 year ago after her sister had a brain bleed while on prednisone. Patient denies any adverse reactions to herself while on prednisone. Patient states that her PCP is managing her port. -This could be an acute rheumatoid flare as cultures thus far have been negative. -Meloxicam ordered, if develops nausea/vomiting can DC -Started on prednisone 30 mg x1 for possible RA flare on 12/13, will continue to taper down. -Will also provide pain relief with topical analgesics including menthol creams and lidocaine patch 12/17/24: Continue topical Marco A-Cruz as needed. Continue prednisone taper continue p.r.n. pain meds (3) Anemia: Code(s): D64.9 - Anemia, unspecified Status: Acute Assessment and Plan: H&H 5.9/19.7 on 12/09/24, s/p 2 units of PRBC's given. Post H&H 9.2/29.4. - H/H 7.7/.2 - No signs of active bleeding - Stool for occult blood ordered - Abdominal pelvis CT without contrast: Decreased blood pool density as can be seen with anemia. Mild urinary bladder wall thickening, correlate with urinalysis. Mild mesenteric and body wall edema - Hematology consulted. Likely anemia of chronic disease with RA and possible nutritional deficiencies. - Iron 30, TIBC 128, % saturation 23, Ferritin 880, LDH 152, Vitamin B12 839, Folate 11.4. - Bone marrow biopsy not indicated at this time - Follow up in the outpatient setting - Discontinue IV fluids, could be contributing to low hgb. Repeat AM labs. 12/17/24: follow-up with Dr. burk as outpatient as noted per his consult note. (4) Hypertension: Qualifiers: Hypertension type: primary hypertension Qualified Code(s): I10 - Essential (primary) hypertension Code(s): I10 - Essential (primary) hypertension Status: Acute Assessment and Plan: Chronic, continue home medications - Metoprolol 25 mg PO daily. - Monitor 12/17/24: Continue home meds (5) Severe protein-calorie malnutrition: Code(s): E43 - Unspecified severe protein-calorie malnutrition Status: Acute Assessment and Plan: supplements per nutrition 12/15: Added Megace to stimulate appetite (6) Fecal impaction: Code(s): K56.41 - Fecal impaction Status: Acute Assessment and Plan: 12/14: -Abdominal pain with constipation for more than 8 days now experiencing nausea, loss of appetite and decreased oral intake -Symptoms started 3 weeks ago after viral URI and no improvement since -Co-incided with timing of right knee pain/swelling and swelling of joints in hands -All symptoms likely due to viral mediated flare of rheumatoid arthritis -Oral medications added, digital disimpaction by RN, soap suds enemas given -IV Reglan used for nausea, patient tolerated this as an infusion over 15-20 minutes, feel more comfortable giving slow IV push as needed. -CT abdomen pelvis with IV contrast obtained showing rectal dilation and diffuse colonic stool burden. My own interpretation of CT shows gas scattered throughout colon and rectal stool not completely compacted -Hold oral iron, consider additional IV infusion instead 12/15: -Patient having multiple bowel movements and abdomen feels better, less rounded 12/16: resolved. (7) Nausea: Code(s): R11.0 - Nausea Status: Acute Assessment and Plan: 12/15: Reglan added oral before meals and Megace to stimulate appetite (8) Weight loss: Code(s): R63.4 - Abnormal weight loss Status: Acute Assessment and Plan: See fecal impaction above, symptom onset about 3 weeks ago DS: Summary Hospital Course Reason for hospitalization: septic arthritis Hospital Course: This 74-year-old female patient with past medical history of septic arthritis of the right knee with prior washout, chronic anemia, rheumatoid arthritis, and DVT who presented to the ER from home due to increased weakness and 3 days of right knee pain and swelling on 12/07/24. She was found to have findings concerning for a potential septic arthritis of the right knee and was subsequently admitted to the hospital, consult for Orthopedics was placed and she was started on IV abx. As her WBC's were 60K with a left shift, she was taken to the OR for a wash out by Dr. Bello on the . Aspirate was sent for culture and there is still not any growth to date although analysis did show 65K WBCs in aspirate, with 93% Neutrophils. Her Blood cultures were negative and she gradually had improvement in her overall condition and was transitioned to oral abx of Ceftin 500 mg Q12 hours and Clindamycin 600 m Q12 hours, both to stop on 12/17/24. She has been working well with PT and making progress. During her admission she did have a Hematology consult with Dr. Burk due to Hgb of 5.8. He did not feel the need for any BMB, but did order labs for iron studies, B12 and folic acid as well as LDH and OZZY tests and will follow up with pt as an outpt. She is stable today for discharge and will be discharged to [facility] with prescriptions for one remaining dose of abx to be given tonight of the Ceftin and the Clinda. She will have a steroid taper and pain medications as well and will follow up with PCP, Orthopedics Dr. Bello and Dr. Burk. Status at Discharge Cognitive/behavioral status at discharge: At baseline. Functional status at discharge: uses cane/walker Overall status at discharge: patient is progressing back to baseline Time Spent with Patient Time attestation: Total time spent providing and/or coordinating discharge services: Time spent: Greater than 30 minutes Specific discharge activities: Medications, follow up Exam Narrative: General: female in no acute respiratory distress who is uncomfortable appearing, seated in bedside chair HEENT: Normocephalic. Atraumatic. Extraocular movement intact. Sclera clear and anicteric. No facial asymmetry. Chest: Lungs are clear to auscultation bilaterally. No wheezes or crackles. Port to left chest without signs of infection. CV: Heart was regular rate and rhythm. S1-S2. No murmurs, gallops, or rubs. Abd: Abdomen was soft, mildly tender, mildly rotund with hypoactive bowel sound Ext: No clubbing, cyanosis, or edema. 2+ DP pulses bilaterally. Swelling to the MCP joints with improved pain and weakness compared to yesterday. Right knee sutures in place, no drainage, no warmth or erythema. Fluctuance noted. Neuro: Patient is alert. Speech is clear. DS: Data Data Completed and Pending Completed studies during hospitalization: ITS Impressions Cervical Spine X-Ray 12/06/24 13:20 IMPRESSION: 1. Moderate cervical spondylosis. 2. Anterior fusion procedure from C5 to C7. Knee X-Ray 12/06/24 13:21 IMPRESSION: 1. Moderate lateral and patellofemoral compartment osteoarthritis with large knee joint effusion. No evident acute osseous abnormality. Chest X-Ray 12/06/24 22:16 IMPRESSION: No acute cardiopulmonary process. Abdomen/Pelvis CT 12/08/24 17:23 IMPRESSION: Decreased blood pool density as can be seen with anemia. Mild urinary bladder wall thickening, correlate with urinalysis. Mild mesenteric and body wall edema. Knee X-Ray 12/12/24 16:55 IMPRESSION: 1. Total left knee arthroplasty with lucency again seen around the femoral post and slight interval change in positioning of the femoral component with respect to the bone, consistent with loosening. 2. Small left knee joint effusion with loose bodies. Venous Doppler Study 12/12/24 17:25 IMPRESSION: 1. No deep venous thrombosis. Abdomen/Pelvis CT 12/14/24 14:44 IMPRESSION: Diffuse fecal stasis within the entirety of the colon, markedly distending the rectum, consistent with fecal impaction. Labs on day of discharge: Labs from last 24 hours 12/17/24 05:18 WBC 13.5 H RBC 2.67 L Hgb 7.7 L Hct 24.8 L MCV 92.9 MCH 28.8 MCHC 31.0 L RDW 16.1 H Plt Count 434 H MPV 8.8 Immature Gran % (Auto) 2.7 H Neut % (Auto) 51.7 Lymph % (Auto) 38.1 Quay % (Auto) 6.4 Eos % (Auto) 0.7 Baso % (Auto) 0.4 Lymph # (Auto) 5.13 H Quay # (Auto) 0.9 H Eos # (Auto) 0.1 Baso # (Auto) 0.1 Abs Immat Gran (auto) 0.36 H Absolute Neuts (auto) 7.0 H Absolute Nucleated RBC 0.000 Nucleated RBC % 0.0 Sodium 136 L Potassium 3.4 Chloride 105 Carbon Dioxide 26 Anion Gap 5 BUN 25 H Creatinine 0.41 L Estim Creat Clear Calc 76 Estimated GFR > 60 Glucose 88 Calcium 7.1 L Magnesium 1.8 Total Bilirubin 0.3 AST 24 ALT 11 Alkaline Phosphatase 77 Total Protein 6.0 L Albumin 1.9 L Preliminary micro results at discharge 12/07/24 07:27 Anaerobic Culture - Preliminary Knee Right 12/06/24 16:45 Anaerobic Culture - Preliminary Synovial Fluid Right Knee Aerobic Culture - Preliminary Discharge Plan Discharge Attending physician on discharge: Rosario Aquino Consulting providers: Bill Bello; Juancarlos Burk Discharging Clinician: Rosario Aquino Anticipated Discharge Date/Time: 12/17/24 11:03 Patient Disposition: SNF Activity: as tolerated and follow weight bearing status Diet: as tolerated and regular Wound Care Instructions: incision open to air Discharge Instructions: Pt has one dose of both antibiotics due tonight and this will complete her dosing of antibiotics. She needs appointments arranged to follow up with Orthopedics Dr. Bello, and Dr. Burk Hematology as well as PCP. WBAT with assistance of walker. Patient Instructions: Arthritis (DC) Patient Language: Portuguese Stand Alone Forms: Jail Discharge Follow-up/Referrals: Bill Bello MD [Physician] - Call for Appointment Juancarlos Burk MD [Physician] - Call for Appointment Discharge Medications: New acetaminophen 325 mg Tablet 650 mg PO Q4H PRN (Reason: Mild Pain (1-3) Or Fever) Qty: 120 0RF cefuroxime axetil 250 mg Tablet 500 mg PO Q12HR@1200,2100 Qty: 1 0RF hydrocodone-acetaminophen 5-325 mg Tablet 1 tablet PO Q6H PRN (Reason: Pain Rated 4-6) Qty: 30 0RF sennosides-docusate sodium [Senokot-S] 8.6-50 mg Tablet 1 tab PO BID Qty: 60 0RF prednisone 5 mg Tablet See Rx Instructions .ROUTE .COMPLEX Qty: 27 0RF Rx Instructions: Give 20 mg daily for 3 days, then 15 mg daily for 3 days then 10 mg daily for 3 days. clindamycin HCl 150 mg Capsule 600 mg PO Q12HR Qty: 1 0RF magnesium oxide 400 mg (241.3 mg magnesium) Tablet 200 mg PO DAILY Qty: 60 0RF metoclopramide HCl 5 mg Tablet 5 mg PO ACHS Qty: 60 0RF lidocaine [Lidoderm] 5 % Adhesive Patch,Medicated 1 patch transdermal DAILY Qty: 30 0RF megestrol 40 mg Tablet 40 mg PO QID Qty: 120 0RF bisacodyl [Laxative (bisacodyl)] 5 mg Tablet,Delayed Release (Dr/Ec) 10 mg PO QAM PRN (Reason: Constipation) Qty: 30 0RF ferrous sulfate 325 mg (65 mg iron) Tablet,Delayed Release (Dr/Ec) 325 mg PO BIDWM Qty: 60 0RF Bengay Ultra Strength 4-30-10 % Cream 1 applic topical BID PRN (Reason: Muscle/Joint Pain) Qty: 60 0RF Continued metoprolol succinate [Toprol XL] 25 mg Tablet Extended Release 24 Hr 25 mg PO QAM Qty: 60 0RF folic acid 1 mg Tablet 1 mg PO DAILY Qty: 30 0RF polyethylene glycol 3350 [Miralax] 17 gram/dose Powder 17 g PO DAILY Discontinued magnesium 100 mg Tablet 100 mg PO DAILY docusate sodium 100 mg Capsule 100 mg PO Q12H PRN (Reason: Constipation) Qty: 30 0RF tramadol 25 mg tablet 25 mg PO BID PRN (Reason: pain (scale score 4-6)) ferrous sulfate 325 mg (65 mg iron) Tablet,Delayed Release (Dr/Ec) 325 mg PO .qd Date of admission: 12/07/24 08:24 Primary Care Provider: UNKNOWN,DOCTOR Admitting Provider: Lien Anders Attending physician on admission: Rosario Aquino Condition: Stable Quality VTE Prophylaxis VTE prophylaxis: pharmacologic ordered Hospitalist MIPS Heart Failure (Exclusion) Patient has history of Heart Transplant or Left Ventricular Assistive Device?: No IF YES, STOP HERE Heart Failure (Qualifier) Patient has current or prior documentation of LVEF less than or equal to 40%, or mod/servere depressed LVSF?: No IF NO, STOP HERE
[2024-12-17] MEDS: cefuroxime axetiL 250 MG TABLET 500 MG PO (11:47)
[2024-12-17 12:25] LABS: SARS-CoV-2 RNA PCR Negative (Negative)
[2024-12-17 14:00] VITALS: BP 122/69; PULSE 84; RESP 16; TEMP 36.7; O2SAT 100
[2024-12-17 19:40] VITALS: BP 130/71; PULSE 79; RESP 16; TEMP 36.6; O2SAT 100
== END 2024-12-17 19:48 | DRG 485 ==
LOC: ANHED 21:25 → ANH3MED 23:35
PROVIDERS: General Practice; Internal Medicine Hematology & Oncology; Nurse Practitioner; Nurse Practitioner Family; Orthopaedic Surgery; Student in an Organized Health Care Education/Training Program; Admitting Provider Internal Medicine; Emergency Provider Emergency Medicine; Visit Provider Nurse Practitioner Adult Health
PROC: 0SBC4ZZ Excision of Right Knee Joint, Percutaneous Endoscopic Approach (ICD-10-PCS; principal; 2024-12-07 07:30)
DX: M00.9 Pyogenic arthritis, unspecified (principal); E43 Unspecified severe protein-calorie malnutrition; Z68.1 Body mass index [BMI] 19.9 or less, adult; M17.11 Unilateral primary osteoarthritis, right knee; M06.9 Rheumatoid arthritis, unspecified; I10 Essential (primary) hypertension; E78.5 Hyperlipidemia, unspecified; K56.41 Fecal impaction; D64.9 Anemia, unspecified; Z90.710 Acquired absence of both cervix and uterus; Z86.718 Personal history of other venous thrombosis and embolism; Z93.1 Gastrostomy status
CPT/HCPCS: 20610; 36415; 36430; 71045; 72040; 73560; 73562; 74176; 74177; 80048; 80053; 80202; 82274; 82607; 82728; 82746; 82945; 82948; 83540; 83550; 83615; 83735; 84157; 84238; 84550; 85014; 85018; 85025; 85652; 86140; 86850; 86860; 86870; 86880; 86900; 86901; 86902; 86922; 87040; 87070; 87075; 87205; 87635; 89051; 89060; 93971; 96365; 96366; 96367; 96375; 96376; 97110; 97116; 97161; 97166; 97530; 97535; 99285; A9270; G0378; J0696; J1171; J2003; J2270; J2371; J2405; J2704; J2765; J3370; J3475; J7030; J7050; J7120; J7512; P9016; Q9967

== ENCOUNTER 2025-04-01 10:10 | Inpatient (IN) | payer MEDICARE, BC, OTHER, SELFPAY ==
[2025-04-01] VITALS (8 sets, daily range): BP systolic 129–159; BP diastolic 66–92; PULSE 74–95; RESP 15–24; TEMP 36.7–37.4; O2SAT 96–100
--- NOTE | ~2025-04-01 | XR_ITS ---
EXAMINATION: XR knee RT min 4V DATE: 04/01/2025 13:31 INDICATION: Right knee pain TECHNIQUE: Anteroposterior, 2 oblique and crosstable lateral views of the right knee were obtained COMPARISON: 12/06/2024 FINDINGS: Alignment is normal. No fracture. There is increasing now severe joint space narrowing in the medial and lateral compartments of the right knee. Persistent large knee joint effusion. There is loss of s harp well-defined cortical margin along the cephalad aspect of the patella and adjacent trochlear whi ch raises concern for septic arthritis with osteomyelitis. No fracture. 0 IMPRESSION: 1. Persistent large right knee joint effusion with suggestion of some osteolysis with loss of a well- defined cortical margin along the articular surfaces of the patella and trochlea suspicious for osteo myelitis. Recommend diagnostic arthrocentesis. 2. Tricompartmental osteoarthritis with severe joint space narrowing in the medial and lateral compar tments. Reviewed, dictated and finalized at location A. IMPRESSION: 1. Persistent large right knee joint effusion with suggestion of some osteolysi s with loss of a well-defined cortical margin along the articular surfaces of t he patella and trochlea suspicious for osteomyelitis. Recommend diagnostic arth rocentesis. 2. Tricompartmental osteoarthritis with severe joint space narrowing in the med ial and lateral compartments.
--- NOTE | ~2025-04-01 | US_ITS ---
EXAMINATION: US venous doppler [facility] DATE: 04/01/2025 12:44 INDICATION: Bilateral lower limb pain and swelling TECHNIQUE: Grayscale ultrasound images without and with compression and Doppler ultrasound images of the bilateral lower extremity veins were obtained. COMPARISON: None. FINDINGS: The visualized portions of right common femoral vein, profunda (deep) femoral vein, femoral vein, pop liteal vein, posterior tibial veins, peroneal veins, gastrocnemius vein and greater saphenous vein ou tflow are patent. There are few normal-sized right inguinal lymph nodes. The visualized portions of left common femoral vein, profunda femoral vein, femoral vein, popliteal v ein, posterior tibial veins, peroneal veins, gastrocnemius vein and greater saphenous vein outflow ar e patent. A few additional normal-sized left inguinal lymph nodes. IMPRESSION: 1. No deep venous thrombosis in either lower limb. 2. A few mildly prominent but still normal-sized likely reactive bilateral inguinal lymph nodes. Reviewed, dictated and finalized at location A. IMPRESSION: 1. No deep venous thrombosis in either lower limb. 2. A few mildly prominent but still normal-sized likely reactive bilateral ingu inal lymph nodes.
--- NOTE | ~2025-04-01 | XR_ITS ---
XR chest 1V Ordering provider: Lexii Braun PA-C History: 74 years Female with . orthopnea . Comparison: December 06, 2024 FINDINGS: MEDIASTINUM: The cardiac silhouette is moderately enlarged. Congestive mauricio. Left Port-A-Cath with the tip in the right atrium. LUNGS: No infiltrates, effusions or pneumothorax. OTHER: No free air under the diaphragm. Degenerative changes of the spine. IMPRESSION: No acute cardiopulmonary pathology. Cardiomegaly. Reviewed, dictated and finalized at location A.
--- OUTSIDE RECORDS SUMMARY | 2025-04-01 10:23 | XMS_ITS | Referral Summary ---
Author Organization [facility] al Address [address] [place] [address] Care Team Providers Care Pocket Maker Name Role Phone Saul Powers MD Primary Care Provider [phone] Allergies No known active allergies Medications No known medications Active Problems No known active problems Social History Tobacco Use Types Packs/Day Years Used Date Smoking Tobacco: Never Smokeless Tobacco: Never Tobacco Cessation:Counseling Given: Not Answered Alcohol Use Standard Drinks/Week Comments Never 0 (1 standard drink = 0.6 oz pur e alcohol) Personal Safety Answer Date Recorded Getting School Help Needed Not on file 07/06 Comments No Sex and Gender Information Value Date Recorded Sex Assigned at Not on file Legal Sex Female 8:36 PM [employer] Gender Identity Not on file Sexual Orientation Not on file Last Filed Vital Signs Vital Sign Reading Time Taken Comments Blood Pressure 156/73 06/25/2023 9:30 PM CDT Pulse 80 06/25/2023 9:30 PM CDT Temperature 36.3 C (97.4 F) 06/25/2023 9:30 PM CDT Respiratory Rate 25 06/25/2023 9:30 PM CDT Oxygen Saturation 96% 06/25/2023 9:30 PM CDT Inhaled Oxygen Concentration - - Weight 89.8 kg (198 lb) 06/25/2023 4:24 PM CDT Height 165.1 cm (5' 5 ) 06/25/2023 4:24 PM CDT Body Mass Index 32.95 06/25/2023 4:24 PM CDT Plan of Treatment Not on file Insurance [facility] MEDICARE ADVANTAGE [place] [facility] [place] [place] [id number] [facility] MEDICARE ADVANTAGE [facility] FEDERAL Member Subscriber Plan / Payer (Ef fective 1993-Present) Name:[employer] Relation to Subscriber:Spouse Name:MAURO STOCK Date of :1950 (Home) Address: [address] [place] [address] [place] [address] Payer ID:[id number] (NAIC) Group ID:[id number] Type:[facility] Address: [address] [place] [id number] Care Teams Pocket Maker Relationship Specialty Start Date End Date Saul Powers MD [address] [place] [address] PCP - General Family Medicine 06/19/23
--- OUTSIDE RECORDS SUMMARY | 2025-04-01 10:23 | XMS_ITS | Continuity of Care Document ---
Author Organization [facility] Address [address] [place] [address] Phone Care Team Providers Care Auto Tester Name Role Phone Madi Wray MD Unavailable [...] by:Prasanth WILSON) Nucleated Cells, Synovial Fld 11:59:00 40294 cells/uL 0-200 H Final Performed by:Prasanth WILSON) [...] OFFICE/OUTPA TIENT VISIT EST [facility], [address], [address], [place] tel:[phone] [facility] Other infective (teno)synoviti s, right kneePyogenic arthritis of right knee joint, due to unspecified organismArthri tis due to other bacteria, right knee 4 Fissel Madi. [address] [facility], [place], [place], [address]. tel:[phone] Referring Provider: Artie Guo, [address], [place], [address]. tel:[phone] [facility], [address] [facility], [place], [address], [place] tel:[phone] [facility] Pyogenic arthritis of right knee joint, due to unspecified organismEffusi on, right kneeOther infective (teno)synoviti s, right knee 4 Fissel Madi. [address] [address] [facility], [place], [place], [address]. tel:[phone] OFFICE/OUTPA TIENT VISIT EST [facility], [address] [facility] [address], [place], [address], [place] tel:[phone] [facility] Pain in right kneeBody mass index [BMI] 32.0-32.9, adultEffusion, right knee 4 Chas Hatfield. [address] [facility] [address], [place], [place], [address], [place]. tel:[phone] Referring Provider: Artie Guo, [address], [place], [address]. tel:[phone] OFFICE/OUTPA TIENT VISIT EST [facility], [address] [facility] [address], [place], [address], [place] tel:[phone] [facility] Pain in right kneeArthritis due to other bacteria, right kneePyogenic arthritis of right knee joint, due to unspecified organismHistor y of surgery 3 Radha Lobo. [address] [facility] [address], [place], [place], [address], [place]. tel:[phone] Referring Provider: Saul Powers, [address] [place], [address]. tel:[phone] [facility], [address] [facility], [place], [address], [place] tel:[phone] [facility] Arthritis due to other bacteria, right knee 3 Radha Carrillohanael. [address], [place], [place], [address], [place]. tel:[phone] Referring Provider: Saul Powers, [address] [place], [address]. tel:[phone] [facility], [address] [address], [place], [address], [place] tel:[phone] [facility] Arthritis due to other bacteria, right knee 3 L'Hommedieu Georgetown. [address] [facility], [place], [place], [address]. tel:[phone] [facility], [address] [facility], [place], [address], [place] tel:[phone] [facility] Bacterial arthritis of right kneePyogenic arthritis of right knee joint, due to unspecified organism 3 Radha Lobo. [address], [place], [place], [address], [place]. tel:[phone] OFFICE/OUTPA TIENT VISIT EST [facility], [address] [facility], [place], [address], [place] tel:[phone] [facility] Effusion, right kneeInternal derangement of right kneeChronic pain of right kneeOther chronic pain 3 L'Hommedieu Georgetown. [address] [facility], [place], [place], [address]. tel:[phone] Referring Provider: Saul Powers, [address] [place], [address]. tel:[phone] OFFICE/OUTPA TIENT VISIT EST [facility], [address] [facility], [place], [address], [place] tel:[phone] [facility] Body mass index [BMI] 32.0-32.9, adultPain in right kneeEffusion, right kneeStatus post revision of total replacement of left kneePrimary osteoarthritis of right knee Erasto- 3 Chas Hatfield. [address] [facility] [address], [place], [place], [address], [place]. tel:[phone] Referring Provider: Saul Powers, [address], [place], [address]. tel:[phone] OFFICE/OUTPA TIENT VISIT EST [facility], [address] [address], [place], [address], [place] tel:[phone] [facility] Osteoarthritis of left glenohumeral jointOsteoarth ritis of right glenohumeral joint Jan- 3 Ritchie Valle. [address] [facility] [address], [place], [place], [address]. tel:[phone] Referring Provider: Baron Ramirez, [address] [facility] [address], [place], [address] . tel:[phone] OFFICE/OUTPA TIENT VISIT EST [facility], [address] [facility] [address], [place], [address], [place] tel:[phone] [facility] CervicalgiaOth er spondylosis with radiculopathy, cervical region 3 James rDaper. [address] [facility] [address], [place], [place], [address], [place]. tel:[phone] Referring Provider: Mayela Barrios, [address] [facility] [address], [place], [address]. tel:[phone] [facility], [address] [facility], [place], [address], [place] tel:[phone] [facility] Pain in left shoulderCervic algia Feb 3 No Information Referring Provider: Baron Ramirez, [address] [facility] [address], [place], [address] . tel:[phone] OFFICE/OUTPA TIENT VISIT EST [facility], [address] [facility] [address], [place], [address], [place] tel:[phone] [facility] Pain due to total left knee replacement, initial encounterPrese nce of left artificial knee jointBody mass index [BMI] 32.0-32.9, adult Feb-2 0 3 Lv Marion. [address], [place], [address]. tel:[phone] Referring Provider: Saul Powers, [address], [place], [address]. tel:[phone] OFFICE/OUTPA TIENT VISIT EST [facility], [address] [facility] [address], [place], [address], [place] tel:[phone] [facility] CervicalgiaOth er spondylosis with radiculopathy, cervical regionChronic left shoulder painOther chronic painBody mass index [BMI] 32.0-32.9, adult Feb-2 0 3 James Draper. [address], [place], [place], [address], [place]. tel:[phone] Referring Provider: Mayela Barrios, [address] [facility] [address], [place], [address]. tel:[phone] OFFICE/OUTPA TIENT VISIT EST [facility], [address] [facility] [address], [place], [address], [place] tel:[phone] [facility] Neck painBody mass index [BMI] 32.0-32.9, adultOsteoarth ritis of right glenohumeral jointOsteoarth ritis of left glenohumeral joint Feb- 3 Kevin Pedro. [address], [place], [address]. tel:[phone] Referring Provider: Saul Powers, [address] [place], [address]. tel:[phone] OFFICE/OUTPA TIENT VISIT EST [facility], [address] [facility] [address] [address], [place], [address], [place] tel:[phone] [facility] Status post revision of total replacement of left kneeBody mass index [BMI] 32.0-32.9, adultStrain of left knee, initial encounter 3 L'Hommedieu Georgetown. [address] , [place], [place], [address]. tel:[phone] Referring Provider: Saul Powers, [address] [place], [address]. tel:[phone] OFFICE/OUTPA TIENT VISIT EST [facility], [address] [facility] [address] [address], [place], [address], [place] tel:[phone] [facility] Pain in left shoulderPain in right shoulderArthri tis of both glenohumeral jointsPrimary osteoarthritis , left shoulder 2 Ritchie Valle. [address] [facility], [place], [place], [address]. tel:[phone] Referring Provider: Saul Powers, [address] [place], [address]. tel:[phone] OFFICE/OUTPA TIENT VISIT EST [facility], [address], [address], [place] tel:[phone] [facility] Pain in left kneeStatus post revision of total replacement of left kneeSprain of medial collateral ligament of left knee, initial encounter 2 L'Hommedieu Ge[place]. [address] , [place], [place], [address]. tel:[phone] Referring Provider: Saul Powers, [address] [place], [address]. tel:[phone] OFFICE/OUTPA TIENT VISIT EST [facility], [address] [address], [place], [address], [place] tel:[phone] [facility] Status post revision of total replacement of left knee 2 L'Hommedieu Georgetown. [address], [place], [place], [address]. tel:[phone] Referring Provider: Saul Powers, [address] [place], [address]. tel:[phone] OFFICE/OUTPA TIENT VISIT EST [facility], [address] [facility], [place], [address], [place] tel:[phone] [facility] Status post revision of total replacement of left knee 2 Laramore Sanam. [address], [place], [address]. tel:[phone] Referring Provider: Saul Powers, [address] [place], [address]. tel:[phone] [facility], [address] [facility] [address] [place] [address], [address], [place] tel:[phone] [facility] Status post revision of total replacement of left knee 2 L'Hommedieu Georgetown. [address] , [place], [place], [address]. tel:[phone] Referring Provider: Bryant Aguayo, [address] [place], [address]. tel:[phone] [facility], [address], [address], [place] tel:[phone] [facility] Status post revision of total replacement of left knee 2 Laramore Sanam. [address], [place], [address]. tel:[phone] Referring Provider: Bryant Aguayo, [address] [place], [address]. tel:[phone] [facility], [address], [address], [place] tel:[phone] [facility] Status post revision of total replacement of left knee 2 Yuryamsandi Martinsa. [address] [facility] [address], [place], [address]. tel:[phone] Referring Provider: Bryant Aguayo, [address] [place], [address]. tel:[phone] [facility], [address] [address], [place], [address], [place] tel:[phone] [facility] Status post revision of total replacement of left knee 2 Yuryamore Sanam. [address] [facility] [address], [place], [address]. tel:[phone] Referring Provider: Bryant Aguayo, [address] [place], [address]. tel:[phone] [facility], [address], [address], [place] tel:[phone] [facility] Infection of total knee replacement, initial encounterStatu s post total left knee replacementPer jonathan history of other infectious and parasitic diseasesEncoun ter for insertion of prosthetic knee after prior removal of knee prosthesis 2 L'Hommedieu Norma. [address] [facility], [place], [place], [address]. tel:[phone] [facility], [address] [address], [place], [address], [place] tel:[phone] [facility] Infection of total left knee replacement, subsequent encounterHisto ry of total left knee replacementBod y mass index [BMI] 31.0-31.9, adult 2 Laramsandi Martinsa. [address] [facility] [address], [place], [address]. tel:[phone] Referring Provider: Bryant Aguayo, [address] [place], [address]. tel:[phone] [facility], [address] [address], [place], [address], [place] tel:[phone] [facility] Status post revision of total replacement of right kneeBody mass index [BMI] 31.0-31.9, adult 2 Topper Tristan. [address], [place], [place], [address]. tel:[phone] Referring Provider: Bryant Aguayo, [address] [place], [address]. tel:[phone] [facility], [address] [facility] [address] [address], [place], [address], [place] tel:[phone] [facility] Status post revision of total replacement of right knee 1 Topper Tristan. [address], [place], [place], [address]. tel:[phone] Referring Provider: Nabor Holt, [address] [place], [address]. tel:[phone] [facility], [address], [address], [place] tel:[phone] [facility] Infection of total knee replacement, initial encounterStatu s post revision of total replacement of right knee 1 L'Hommedieu Georgetown. [address] [place], [place], [address]. tel:[phone] OFFICE/OUTPA TIENT VISIT EST [facility], [address] [address], [place], [address], [place] tel:[phone] [facility] Infection of total knee replacement, initial encounterPrese nce of unspecified artificial knee joint 1 L'Hommedieu Ge[place]. [address] [place], [place], [address]. tel:[phone] Referring Provider: Nabor Holt, [address] [place], [address]. tel:[phone] OFFICE/OUTPA TIENT VISIT EST [facility], [address], [address], [place] tel:[phone] [facility] History of total left knee replacementPai n due to total left knee replacement, initial encounterBody mass index [BMI] 33.0-33.9, adult Jul- 1 Micah'Hommedieu Georgetown. [address] [facility] [place], [place], [address]. tel:[phone] OFFICE/OUTPA TIENT VISIT NEW [facility], [address] [address] [facility] [address], [place], [address], [place] tel:[phone] [facility] Pain in left kneeLeft leg painHistory of total left knee replacementBod y mass index [BMI] 33.0-33.9, adult 1 Micah'Hommedieu Georgetown. [address] [facility], [place], [place], [address]. tel:[phone] Referring Provider: Nabor Holt, [address] [place], [address]. tel:[phone] Family History Family Member Type Diagnosis Age [...] Provider Payers Payer name Insurance type Covered green party ID Authordannya timaritza(s) [employer] Medicare Advantage PPO OT [id number] [facility] E2 OT [id number] Social History Type Description Quantity Date Captured [...] region) ordered Referral Referred To: Ildefonso Al [address] [place], [phone] Ordered: Referrals: Allopathic & Osteopathic Physicians : [...] Future Order: Lab Order CBC With Differential/Platelet ([id number]), Ordered on: Ordered Future Order: Lab Order C-Reacti ve Protein, Quant ([id number]), Ordered on: Ordered Future Order: Lab Order Sediment ation Rate-Westergren ([id number]), Ordered on: Ordered Future Order: Lab Order CBC With Differential/Platelet ([id number]), Ordered on: Ordered Future Order: Lab Order C-Reacti ve Protein, Quant ([id number]), Ordered on: Ordered Future Order: Lab Order Sediment ation Rate-Westergren ([id number]), Ordered on: Ordered History Of Present Illness [...]
--- OUTSIDE RECORDS SUMMARY | 2025-04-01 10:23 | XMS_ITS | Clinical Summary ---
Author Organization [facility] Address [address] [place] [address] Care Team Providers Care Control And Recovery Special Tactics Name Role Phone Saul Powers MD Primary Care Provider [phone] Allergies No known active allergies Medications No known medications Active Problems No known active problems Surgical History Surgery Date Site/Laterality Comments KNEE SURGERY Bilateral Medical History Medical History Date Comments Hypertension Rheumatoid arthritis (HCC) Chronic venous hypertension GERD (gastroesophageal reflux disease) Anemia Personal history of other venous thrombosis and embolism Family History Medical History Relation Name Comments Lung disease Father Family history of lung disease - (Added by TW Conv) Lung disease Mother Family history of lung disease - (Added by TW Conv) Relation Name Status Comments Father Mother Social History Tobacco Use Types Packs/Day Years [...] on file Legal Sex Female 8:36 PM [employer] Gender Identity Not on file Sexual Orientation Not on file Obstetrics History Last Filed Vital Signs Vital Sign Reading [...] 06/25/2023 4:24 PM CDT Plan of Treatment Health Maintenance Due Date Last Done Comments Colon Cancer Screening-Colonoscopy 1950 Depression Screening 1950 Fall Risk Assessment 1950 Hepatitis C Screening 1950 Osteoporosis Screening-Bone Density Scan 1950 Well Visit 65+ 2015 Zoster Vaccine (2 of 3) 12/28/2015 11/02/2015 Breast Cancer Screening-Mammogram 05/12/2023 05/12/2022, 05/12/2022, 05/13/2020 Covid-19 Vaccine (2023-2 5 season) 2024 09/13/2022, 05/27/2022, 07/22/2021, Additional history exists Influenza Vaccine (Season Ended) 2025 09/13/2022, 09/28/2021, 08/17/2020, Additional history exists DTaP/Tdap/Td Vaccine (4 - Td or Tdap) 07/31/2030 07/31/2020, 08/27/2019, 06/08/2017 Pneumococcal vaccine 65+ Completed 019, 08/06/2019, 09/02/2016 Hepatitis B Screening Completed 07/31/2020, [address] [place] [address] [facility] MEDICARE ADVANTAGE [facility] UHC MEDICARE ADVANTAGE [facility] [employer] Care Teams Control And Recovery Special Tactics Relationship Specialty Start Date End Date Saul Powers MD [address] [place] [address] PCP - General Family Medicine 06/19/23
--- OUTSIDE RECORDS SUMMARY | 2025-04-01 10:24 | XMS_ITS | Data Portability ---
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 Not available 02/14/2025 11:06:10 Plan of Treatment Reminders Order Date Submit Date Provider Last Modified By Organization Details Last Modified Time Details Appointments Follow Up 30 2024 09:45A M SIRIA Junior Not available Not available Not available Lab drug screen, 14 drugs (detectim ed), urine 2023 024 [email or web address] [facility] (Centralized Electronic Ordering - All Locations), Patient Can Go To The Location Of Their Choice, [address] 03/18/2025 15:37:52 Referral home health referral - needs right shoulder and leg therapy : physical therapy Please call patient to schedule an appointme nt.. Thank you 2024 025 [email or web address] [facility], [address], [place], [address], 03/18/2025 15:37:52 cardiolog ist referral - 74 y/o with rheumatoi d arthritis , pedal edema , nocturia , intermitt ent sob at night . Please eval and treat. Please call patient to schedule an appointme nt.. Thank you 2024 025 [email or web address] [facility] Referral Fax Line, [address], [address] [place], [address], 03/18/2025 15:37:52 Procedures None recorded. Surgeries None recorded. Imaging DEXA, axial skeleton 2024 025 [email or web address] [facility], [address], [place], [address], 03/19/2025 11:55:16 MAMMO, screening , digital, bilateral 2024 025 [facility], [address], [place], [address], 03/19/2025 11:55:16 Medication Orders Depo-Medr ol 80 mg/mL suspensio n for injection 2024 025 [email or web address] 00 [facility], [address], [place], [id number], 03/19/2025 11:31:22 ciproflox acin 500 mg tablet 2024 025 NOEMÍ [facility] #35070, [address], [place], [id number], 03/19/2025 13:28:25 Depo-Medr ol 80 mg/mL suspensio n for injection 2024 025 [email or web address] Not available 03/18/2025 15:37:52 prednison e 20 mg tablet 2024 025 [place] [address] [facility], [address], [place], [id number], 03/19/2025 11:10:20 cyprohept adine 4 mg tablet 2023 024 [email or web address], [address], [place], [id number], 03/19/2025 11:10:33 ciproflox acin 500 mg tablet [address] [facility] #96666, [address], [place], [id number], 03/18/2025 15:37:52 tramadol 50 mg tablet [address] [facility] #54210, [address], [place], [id number], 03/18/2025 15:37:52 ibuprofen 400 mg tablet [address] [facility] #69187, [address], [place], [id number], 03/18/2025 15:37:52 fluocinon lorie 0.05 % topical ointment [address] [facility] #10797, [address], [place], [id number], 03/18/2025 15:37:52 Patient TargetsNo targets recorded. Patient Instructions Encounter Date Encounter Id Patient Instructions Last Modified By Organization Details Last Modified Time 02/14/2025 [id number] Thank you for your visit to our office today. We would like to request that you reach out to your referring or previous provider and request that they send us a Summary of Care in electronic form, so that we may have it on file in your medical record. At your visit, we had the medical records we needed to provide you with the best possible care; however, for insurance purposes, an electronic Summary of Care is beneficial. Thank you for your assistance in obtaining this information and we look forward to providing continued care to you. Please review your medication list from the Summary of Care for this visit. If there are any differences from what you are currently taking at home, please call us to discuss.. elevate feet above heart 20 min daily with a heating pad on low . limit salt intake [id number] Not available 02/14/2025 12:20:56 Homebound Status : {{Patient has an inability to leave the home without a taxing effort and assistance from another person Does not meet homebound status}} Required Home Health Services: {{none assisted, physical therapy, occupational therapy assisted, physical therapy assisted}} Durable Medical Equipment needed: {{cane walker wal ker with seat manual wheelchair bedsid e commode oxygen}} Billing Guidelines CPT code 83442- Transitional Care Management services with moderate medical decision complexity (frwg-lb-tbgo visit within 14 days of discharge). CPT code 71945- Transitional Care Management services with high medical decision complexity (vzoc-sa-zffl visit within 7 days of discharge). 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 Please eval and treat. Please call patient to schedule an appointment.. Thank you Referring Physician: [facility], Encounter Date: 02/14/2025 Home Health Referral for Narayan n of shoulder region needs right shoulder and leg therapy : physical therapy Please call patient to schedule an appointment.. Thank you Referring Physician: Tonio Bello [facility], Encounter Date: 02/14/2025 Results Created Date Observation Date Name Description Value Unit Range Abnormal Flag Note LastModifiedBy Organization Detail LastModifiedTime 03/28/20 25 03/28/2025 imagi ng/di agnos tic resul t No observ ation record ed. [facility] [address], [place], [address], 03/28/2025 13:42:00 03/31/2003/28/2025 imagi ng/di agnos tic resul t No observ ation record ed. [facility] [address], [place], [address], 03/31/2025 15:01:17 Result Notes None recorded. 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 886377612 Active 2023 Emilee Eubanksiner [place] - [facility] 5 15:37:51 Rheumatoid arthritis 88457417 Active 2023 Rheumatol ogist: in [facility] Emilee My [place] - [facility] 5 15:37:51 Abnormal weight loss 567350923 Active 2023 Emilee Eubanksiner null[place] - [facility] 5 15:37:51 Sinusitis 82089730 Active 2023 Emilee Bayside [place] - [facility] 5 15:37:51 Adult health examinatio n Active 2024 Emilee schaefer[place] [facility] 5 15:37:51 Essential hypertensi on 91478764 Active 2024 Emileeher Pepe [place] - [facility] 5 15:37:51 Edema of foot 548735923 Active 2024 Emilee My [place] - [facility] 5 15:37:51 Pain of shoulder region 97589349 Active 2024 Emilee Eubanksiner [place], [place] - [facility] 5 15:37:51 Swollen knee region 506842789 Active 2024 SIRIA Junior [address], [address], [place], [address] , [facility] 5 11:30:22 Screening mammograph y Active 2024 SIRIA Junior [address], [address], [place], [address] , [facility] 5 11:34:43 Senile osteoporos is 54923663 Active 2024 SIRIA Junior [address], [address], [place], [address] , [facility] [employer] [facility] 11:36:55 Notes:Some problems listed i n Documents: #[id number], #[id number] could not be added to this patient's chart. Please review these documents and add these problems to the patient's chart manually as needed. Problem Notes None recorded. Procedures Surgical History Date Name Laterality Status Provider Name and Address Organization Details Recorded Time 02/15/20 Transitional_Care_M anagement completed Pat Seo Dexter [facility] [employer] [facility] 02/14/2025 11:06:11 total knee [facility] [employer] [facility] 03/18/2025 15:37:52 Back Surgery [facility] [employer] [facility] [email or web address] [facility] 03/18/2025 15:37:52 Knee arthroscopy/surgery completed Emilee Bayside [place] [facility] [employer] [facility] 03/18/2025 15:37:52 percutaneous catheterization of portal vein completed [facility] [employer] [facility] [email or web address] [facility] 03/18/2025 15:37:52 Imaging Results Imaging Date Name Status LastModified by Organiz ation Details LastModified Time 03/28/2025 imaging/diagn ostic result active [facility] [address], [place], [address], 03/28/2025 13:42:00 03/28/2025 imaging/diagn ostic result active [facility] [address], [place], [address], 03/31/2025 15:01:17 Procedure Notes None recorded. Medical Equipment None Reported. Allergies Allergen ID Allergen Name Allergen Category Reaction Reaction Severity Criticality Documentation Date Start Date Code Code System Note Provider Name and Address Organization Details Recorded Time 81997 lisinopri l medicatio n Not available Not available Not available 11/15/2024 06195 RxNorm Emilee Pepe [facility] [email or web address] [facility] 15:37:52 98103 Product containin g penicilli n (product) medicatio n Not available Not available Not available 11/15/2024 13399 8001 SNOMED [facility] [email or web address] 15:37:52 82948 Substance with sulfonami de structure and antibacte rial mechanism of action (substanc e) medicatio n Not available Not available Not available 11/15/2024 71298 8003 SNOMED [facility] [email or web address] 15:37:52 25461 peanut allergeni c extract food,medi cation Not available Not available Not available 11/15/2024 41863 8 RxNorm [facility] [email or web address] [facility] 15:37:52 70693 latex environme nt,medica tion Not available Not available Not available 11/15/2024 43032 91 RxNorm [facility] [email or web address] [facility] 15:37:52 Medications Name Sig Start Date Stop Date Status Note LastModified by Organization Details LastModified Time megestrol 400 mg/10 mL (40 mg/mL) oral suspension 02/11 completed Not Available Not Available Not Available clindamycin HCl 300 mg capsule TAKE 2 CAPSULES BY MOUTH EVERY 12 HOURS UNTIL ALL TAKEN 11/15 completed Not Available Not Available Not Available cyclosporin e modified 25 mg capsule active Not Available Not Available Not Available metoprolol succinate ER 50 mg tablet,exte nded release 24 hr TAKE 1 TABLET BY MOUTH EVERY DAY 11/15 completed Not Available Not Available Not Available hydrocodone 5 mg-acetamin ophen 325 mg tablet active Not Available Not Available No t Available urea 40 % topical cream active Not Available Not Available Not Available prednisone 20 mg tablet Take 2 tabs PO twice daily for 2 days; 1 tab PO twice daily for 5 days; 1/2 tab PO twice daily for 2 days; 1/2 tab PO once for 1 day. TAKE 2ND DOSE EVERYDAY AT NOON-10 DAY COURSE 03/19 completed Not Available Not Available Not Available clindamycin HCl 150 mg capsule active Not Available Not Available Not Available fluocinonid e 0.05 % topical ointment APPLY TO THE AFFECTED AREA(S)( hands , feet )BY TOPICAL ROUTE 2 TIMES PER DAY 2023 active Not Available Not Available Not Avai lable ciprofloxac in 500 mg tablet TAKE 1 TABLET BY MOUTH EVERY 12 HOURS FOR 10 DAYS active Not Available Not Available No t Available tramadol 50 mg tablet TAKE 1 TABLET BY MOUTH TWICE DAILY NEEDED active Not Available Not Available No t Available Depo-Medrol 80 mg/mL suspension for injection Take 1 mL by injection route. 2024 active Pt taylor well Not Available Not Available Not Available cyproheptad ine 4 mg tablet TAKE ONE TABLET BY MOUTH TWICE DAILY FOR WEIGHT LOSS 03/19 completed Not Available Not Available Not Available warfarin 6 mg tablet active Not Available Not Available No t Available famotidine 20 mg tablet active Not Available Not Available Not Available metoclopram lorie 5 mg tablet TAKE 1 TABLET BY MOUTH FOUR TIMES DAILY 30 MINUTES BEFORE FOOD active Not Available Not Available No t Available hydrocortis one 2.5 % lotion 02/11 completed Not Available Not Available Not Available pantoprazol e 40 mg tablet,flor yed release TAKE 1 TABLET BY MOUTH EVERY MORNING 11/15 completed Not Available Not Available Not Available acyclovir 5 % topical ointment active Not Available Not Available Not Available triamcinolo ne acetonide 0.1 % topical ointment active Not Available Not Available Not Available warfarin 5 mg tablet active Not Available Not Available No t Available ibuprofen 400 mg tablet Take 1 tablet twice a day by oral route with meal(s). 2023 active Not Available Not Available Not Avai lable megestrol 40 mg tablet TAKE 1 TABLET BY MOUTH TWICE DAILY active Not Available Not Available No t Available docusate sodium 100 mg capsule TAKE ONE CAPSULE BY MOUTH EVERY 12 HOURS NEEDED FOR CONSTIPAT ION 02/11 completed Not Available Not Available Not Available gabapentin 300 mg capsule active Not Available Not Available Not Available folic acid 1 mg tablet TAKE 1 TABLET BY MOUTH DAILY active Not Available Not Available No t Available hydrocortis one 2.5 % topical cream active Not Available Not Available Not Available diltiazem ER 60 mg capsule,ext ended release 12 hr active Not Available Not Available Not Available mirtazapine 15 mg tablet 11/15 completed Not Available Not Available Not Available metoprolol succinate ER 25 mg tablet,exte nded release 24 hr TAKE 1 TABLET BY MOUTH EVERY DAY IN THE MORNING active Not Available Not Available No t Available clobetasol 0.05 % topical ointment active Not Available Not Available Not Available cyclosporin e modified 100 mg capsule active Not Available Not Available Not Available levofloxaci n 500 mg tablet TAKE 1 TABLET BY MOUTH DAILY FOR 7 DAYS 11/15 completed Not Available Not Available Not Available ferrous sulfate 325 mg (65 mg iron) tablet,flor yed release TAKE 1 TABLET TWICE DAILY WITH MEALS active Not Available Not Available No t Available ketoconazol e 2 % topical cream active Not Available Not Available Not Available hydroxyzine HCl 10 mg tablet active Not Available Not Available Not Available oxycodone 5 mg tablet TAKE 1 (ONE) TABLET BY MOUTH EVERY 3 HOURS NEEDED 11/15 completed Not Available Not Available Not Available cyclobenzap rine 5 mg tablet TAKE 1 TABLET BY MOUTH DAILY 02/11 completed Not Available Not Available Not Available levetiracet am 100 mg/mL oral solution 11/15 completed Not Available Not Available Not Available metoprolol tartrate 25 mg tablet 11/15 completed Not Available Not Available Not Available mirtazapine 7.5 mg tablet 11/15 completed Not Available Not Available Not Available nitrofurant oin monohydrate /macrocryst als 100 mg capsule TAKE 1 CAPSULE BY MOUTH TWICE DAILY WITH THE MORNING AND EVENING MEAL 11/15 completed Not Available Not Available Not Available DILT-XR 240 mg capsule, extended release active Not Available Not Available Not Available duloxetine 20 mg capsule,del ayed release TAKE 1 CAPSULE BY MOUTH EVERY DAY 11/15 completed Not Available Not Available Not Available duloxetine 30 mg capsule,del ayed release TAKE 1 CAPSULE BY MOUTH EVERY DAY 11/15 completed Not Available Not Available Not Available Coreg CR 40 mg capsule, extended release active Not Available Not Available Not Available esomeprazol e magnesium DR 40 mg granules delayed release for susp active Not Available Not Available Not Available diclofenac 1 % topical gel 02/11 completed Not Available Not Available Not Available lacosamide 100 mg tablet 02/11 completed Not Available Not Available Not Available EpiPen 2-Vicente 0.3 mg/0.3 mL injection, auto-inject or active Not Available Not Available Not Available Eliquis 5 mg tablet 11/15 completed Not Available Not Available Not Available Eliquis 2.5 mg tablet 04/30 /2025 completed Not Available Not Available Not Available OneLAX Bisacodyl 10 mg rectal suppository UNWRAP AND INSERT 1 SUPPOSITO RY RECTALLY NEEDED FOR CONSTIPAT ION 02/11 completed Not Available Not Available Not Available Vitals Date Recorded Body height Body mass index (BMI) Body weight Body temperature Heart rate Oxygen saturation Oxygen saturation in Arterial blood by Pulse oximetry Systolic blood pressure Diastolic blood pressure Provider Name and Address Organization Details Last Updated DateTime 4 165.1 cm 18.8 kg/m2 50799.9 4 g 97.6 [degF] 81 /min 100 % 100 % 120 mm[Hg] 72 mm[Hg] [facility] [employer] [facility] 5 15:37:50 Date Recorded Body height Body temperature Oxygen saturation Oxygen saturation in Arterial blood by Pulse oximetry Heart rate Systolic blood pressure Diastolic blood pressure Provider Name and Address Organization Details Last Updated DateTime 5 165.1 cm 97.1 [degF] 92 % 92 % 83 /min 124 mm[Hg] 70 mm[Hg] [facility] [employer] [facility] 5 15:37:50 Date Recorded Body height Body mass index (BMI) Body weight Body temperature Heart rate Oxygen saturation Oxygen saturation in Arterial blood by Pulse oximetry Systolic blood pressure Diastolic blood pressure Provider Name and Address Organization Details Last Updated DateTime 5 165.1 cm 21.6 kg/m2 56190.0 1 g 97.5 [degF] 96 /min 99 % 99 % 138 mm[Hg] 72 mm[Hg] Pat Seo Dexter [facility] [employer] [facility] 5 11:14:15 Social History None recorded. Functional Status None recorded. Mental Status None recorded. Family History Nothing Reported. Medical History No medical history recorded. Gynecological HistoryNo gynecological history recorded. Obstetrics History GPAL:G 0 P 0 0 0 0 Past Encounters Encounter ID Performer Location Encounter Start Date Encounter Closed Date Diagnosis/Indication Diagnosis SNOMED-CT Code Diagnosis ICD10 Code Diagnosis Note [id number] Kobe Collado MD [facility] [address] [address] 11/15/2024 10:01:05 11/15/2024 14:00:48 Constitutional eczema of hands and feet 158024462 L30.8 Rheumatoid arthritis 698 36651 M06.9 Abnormal weight loss 267 778640 R63.4 Sinusitis 71355527 J32.9 Long-term current use of opiate analgesic drug 2845477466 00971 Z79.891 Long-term drug therapy 520796193 Z79.891 Adult heal th examination 692929753 Z00.00 [id number] Kobe Collado MD [address] [address] 02/14/2025 10:58:31 02/14/2025 12:18:49 Transition of care 8138871784 105 Z75.8 Edema of foot 552644290 R60.0 bilateral Pain of sh oulder region 74962759 M25.519 Rheumatoid arthritis 698 16732 M06.9 Essential hypertension 37462523 I10 [id number] Kobe Collado MD [address] [address] 03/19/2025 11:03:46 03/19/2025 11:55:15 Swollen knee region 347785055 M25.461 Screening mammography 24 509148 Z12.31 Senile osteoporosis 1804 0001 M81.0 Health Concerns Section Related Observation LastModified by Organization Detai ls LastModified Time None Recorded Concern Status LastModified by Organization Details LastModified Time None Recorded Advance Directives Directive None Recorded Payers Encounter Date Sequence Insurance Name Policy Number Policy Kim Covered Member ID Kim Member ID Guarantor Name 11/15/[address] [facility] (MEDICARE REPLACEMENT/A DVANTAGE - PPO) [id number] Tiesha Stock [id number] Tiesha Stock 11/15/2024 2 [place] [employer] 33E Tiesha Stock [id number] Tiesha Stock 02/14/[address] [facility] (MEDICARE REPLACEMENT/A DVANTAGE - PPO) [id number] Tiesha Stock [id number] Tieshaxavier Stock 02/14/2025 2 [employer] 33E Tiesha Stock [id number] Tiesha Stock 03/19/[address] [facility] (MEDICARE REPLACEMENT/A DVANTAGE - PPO) [id number] Tiesha Stock [id number] Tiesha Stock 03/19/2025 2 [employer]: [employer]EE PROGRAM (PPO) 33E Mauro [employer] [id number] Tiesha [employer] Notes Date Note Type Note Provider Name and Address Organization Details Recorded Time 11/15/2024 text/html PEG tube fell ou t , weight dropped precipitously . has a port , poor veins SIRIA Junior [address], [place], [address], [employer] 11/25/2024 09:39:31 02/14/2025 text/html arthritis pain really bad , she does not feel like this a UTI , SIRIA Junior [address], [place], [address], [employer] 02/17/2025 19:10:03 03/19/2025 text/html leg pain bilaterally , swelling right knee SIRIA Junior [address], [place], [address], [employer] 03/24/2025 14:22:47 OBGyn Episode No OBEpisode recorded.
--- OUTSIDE RECORDS SUMMARY | 2025-04-01 10:24 | XMS_ITS | Encounter Summary ---
Author Organization [facility] Address [address] [place] [address] Care Team Providers Care Policy Specialist Name Role Phone Nabor Valle MD Primary Care Provider Chanelle Flood HOTEL AND DINING ROOM CASHIER-MILITARY COMMUNICATIONS SPECIALIST Unavailable [phone] Veronica Henderson HOTEL AND DINING ROOM CASHIER-MILITARY COMMUNICATIONS SPECIALIST Unavailable Rosa Dobson MD Unavailable Rosario Lundberg MD Unavailable Veronica Henderson HOTEL AND DINING ROOM CASHIER-MILITARY COMMUNICATIONS SPECIALIST Primary Care Provider Veronica Henderson HOTEL AND DINING ROOM CASHIER-MILITARY COMMUNICATIONS SPECIALIST Unavailable Saul Powers MD Primary Care Provider Veronica Otero HOTEL AND DINING ROOM CASHIER-MILITARY COMMUNICATIONS SPECIALIST Unavailable [phone] Veronica Henderson HOTEL AND DINING ROOM CASHIER-MILITARY COMMUNICATIONS SPECIALIST Unavailable [phone] Saul Powers MD Unavailable Unavailable Shelby Nguyen [facility] Unavailable Shara Bello DERMATOLOGIST Unavailable [phone] Saul Powers MD Unavailable Unavailable Christina Kirk RN Unavailable Smita Bolanos RN Unavailable Smita Bolanos RN Unavailable SalimaVeronica mann HOTEL AND DINING ROOM CASHIER-MILITARY COMMUNICATIONS SPECIALIST Unavailable [phone] Saul Powers MD Primary Care Provider Artie Zepeda MD Primary Care Provider [phone] Saul Powers MD Unavailable Unavailable FosterMartin JAYA Unavailable [phone] Saul Powers MD Unavailable Unavailable Corinne San HOTEL AND DINING ROOM CASHIER-MILITARY COMMUNICATIONS SPECIALIST Unavailable Artie Perkins MD Unavailable Encounter Details Date Type Department Care Team (Late st Contact Info) Description 07/24/2018 [facility] Outpatient Visit [facility] - Endocrinology [address], [address] [place] [address] Rosa Dobson MD [address] [place] [address] Social History Tobacco Use Types Packs/Day Years Used Date Smoking Tobacco: Never Smokeless Tobacco: Never Alcohol Use Standard Drinks/Week Comments No 0 (1 standard drink = 0.6 oz pur e alcohol) Comments No Sex and Gender Information Value Date Recorded Sex Assigned at Not on file Legal Sex Female 5:15 PM CDT Gender Identity Not on file Sexual Orientation Not on file 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 Answer Date of Assessment Author No 12/27/2017 12:36 PM Yoly Leal RN * Is person blind or have serious difficulty seeing? Answer Date of Assessment Author No 12/27/2017 12:36 PM Yoly Leal RN * Does person have serious difficulty walking/climbing stairs? Answer Date of Assessment Author Yes 12/27/2017 12:36 PM Yoly Leal RN * Does person have difficulty dressing/bathing? Answer Date of Assessment Author No 12/27/2017 12:36 PM Yoly Leal RN * Does person have difficulty doing errands alone? Answer Date of Assessment Author Yes 12/27/2017 12:36 PM Yoly Leal RN documented as of this encounter Mental Status * Does person have difficulty concentrating/remembering/making decisions? Answer Entry Date Author No 12/27/2017 12:36 PM Yoly Leal RN documented in this encounter Plan of Treatment Not on file documented as of this encounter Visit Diagnoses Not on filedocumented in this encounter Care Teams Policy Specialist Relationship Specialty Start Date End Date Nabor Vlale MD PCP - General Family Medicine 08/29/16 07/04/21 Chanelle Flood APRN-VANESSA [address] [place] [address] PCP - Attributed-[facility] 01/19/20 05/19/21 Veronica Henderson APRN-MILITARY COMMUNICATIONS SPECIALIST [address] [place] [address] PCP - General Nurse Practitioner Family 07/05/21 01/06/22 Veronica Henderson APRN-VANESSA [id number] [place] [address] PCP - Attributed-[facility] 05/20/21 11/04/21 Saul Powers MD [address] [place] [address] PCP - General Family Medicine 01/07/22 11/15/23 Veronica Henderson APRN-MILITARY COMMUNICATIONS SPECIALIST [address] [place] [address] PCP - Attributed-[facility] 12/21/21 05/06/22 Veronica Henderson APRN-MILITARY COMMUNICATIONS SPECIALIST [address] [place] [address] PCP - [facility]ributed-[facility] 07/21/22 11/19/22 Saul Powers MD PCP - [facility]ributed[facility] [place] 11/20/22 02/04/23 Saul Powers MD PCP - Attributed-[facility] [place] 04/20/23 06/19/23 Veronica Henderson HOTEL AND DINING ROOM CASHIER-MILITARY COMMUNICATIONS SPECIALIST [address] [place] [address] PCP - Attributed-[facility] [place] 06/20/23 09/06/23 Saul Powers MD PCP - General Family Medicine 11/16/23 11/21/23 Artie Perkins MD [address] [place] [phone] PCP - General Internal Medicine 11/27/23 Saul Powers MD PCP - Attributed-[facility] [place] 01/19/24 02/08/24 Saul Powers MD PCP - Attributed-[facility] 02/19/24 09/06/24 Artie Perkins MD [address] [place] [phone] PCP - Attributed-[facility] P[facility] 01/18/25 Veronica Henderson HOTEL AND DINING ROOM CASHIER-MILITARY COMMUNICATIONS SPECIALIST [address] [place], [place] [id number] Nurse Practitioner Family 06/10/21 Rosa Dobson MD [address] [address] Rheumatology 06/10/21 Rosario Lundberg MD [address] [address] Dermatology 06/10/21 Shelby Nguyen, [facility] Outpatient Chemicals Distiller Care Management 06/08/23 06/08/23 Shara Bello, DERMATOLOGIST Outpatient Chemicals Distiller Care Management 06/08/23 06/22/23 Christina Kirk RN Post Acute Retail Interior DesignerCertified Income Tax Preparer 06/22/23 06/26/23 Smita Bolanos, RN Retail Interior DesignerCertified Income Tax Preparer 06/26/23 06/27/23 Smita Bolanos, RN Retail Interior DesignerCertified Income Tax Preparer 07/05/23 08/14/23 Martin Hutchison, [place] [address] [place] [address] Care Coordination Specialist Care Management 02/27/24 04/12/24 Corinne San, HOTEL AND DINING ROOM CASHIER-MILITARY COMMUNICATIONS SPECIALIST [address] [place] [address] Nurse Practitioner 05/15/24 documented as of this encounter
--- OUTSIDE RECORDS SUMMARY | 2025-04-01 10:24 | XMS_ITS | Encounter Summary ---
Author Organization [employer] Address [address] [place] [address] Care Team Providers Care Wire Machine Cutter Name Role Phone Artie Perkins MD Primary Care Provider Encounter Details Date Type Department Care Team (Late st Contact Info) Description 08/10/1998 Outpatient Historical [facility] María Elena Ch Social History Tobacco Use Types Packs/Day Years Used Date Smoking Tobacco: Never Assessed Comments Unknown Sex and Gender Information Value Date Recorded Sex Assigned at Not on file Legal Sex Female 3:35 AM ASSISTANT MEDIA PLANNER Gender Identity Not on file Sexual Orientation Not on file documented as of this encounter Plan of Treatment Not on file documented as of this encounter Visit Diagnoses Not on filedocumented in this encounter Additional Health Concerns Infection Onset Date Last Indicated Resolved Time R/O Respiratory 12/22/2023 12/22/2023 12/22/2023 1 :57 PM ASSISTANT MEDIA PLANNER documented as of this encounter Care Teams Wire Machine Cutter Relationship Specialty Start Date End Date Artie Perkins MD [address] [place] [address] PCP - General Internal Medicine 12/13/23 documented as of this encounter
--- OUTSIDE RECORDS SUMMARY | 2025-04-01 10:24 | XMS_ITS | CONTINUITY OF CARE DOCUMENT ---
Author Name jackalla sabrinacarlosalla Address Unknown Organization [facility] Address [address] [place] [address] Phone [phone] Care Team Providers Care Occupational Health Rn Name Role Phone Morteza Fish MD Unavailable DEMI TRUJILLO Unavailable [phone] PROBLEMS Condition Status Date Provider Notes Cardiology examination active Morteza Fish MD Hypertension active Morteza Fish MD Rheumatoid Arthritis active Morteza Fish MD Edema active Morteza Fish MD Shortness of breath active Morteza Fish MD Orthopnea active Morteza Fish MD ENCOUNTERS Date Type Provider Location Encounter Diag nosis 5 - 5 In-person encounter Office Visit Morteza Fish MD [place] [facility] Cardiology examinationHypertensionRheumatoid ArthritisEdemaShortness of breathOrthopnea VITAL SIGNS Date Observation Value Provider Body Mass Index (Ratio) 21.30 kg/m2 Mary iFsh MD pulse rate 72 /min Vero berrios oxygen saturation, oximetry 94 % Vero Mak blood pressure, diastolic 80 mm[Hg] Ti nuvia Mak blood pressure, systolic 140 mm[Hg] Pamela Mak blood pressure, cuff size regular Ti nuvia Mak height E&M 65 [in_i] Vero berrios weight E&M 128 [lb_av] Vero berrios ALLERGIES Allergy Name Onset Date Reaction Criticality Status SULFA High Criticality active PENICILLIN High Criticality active PEANUTS High Criticality active ONUR INHIBITORS High Criticality acti ve LATEX High Criticality active HISTORY OF MEDICATION USE Medication Status Instructions Dates Provider Indications Com ments metoclopramide HCl 5 mg tablet active take 1 tablet by mouth four times daily 30 minutes before food Vero Mak metoprolol succinate 25 mg tablet extended release 24 hr active TAKE 1 TABLET BY MOUTH EVERY DAY Vero Mak tramadol 50 mg tablet active take 1 tablet by mouth twice daily as needed Vero Mak INSURANCE PROVIDERS Payer name Policy type / Coverage type [place] red republican ID [facility] [id number] [facility] [id number] [facility] MEDICARE ADVANTAGE PLAN (PPO) Medicare [id number] ADVANCE DIRECTIVES Name Date DISCUSSED - NO DECISION MADE TREATMENT PLAN Date Name Performer Cardiology:need to a ssess echo Morteza Fish MD Cardiology:unclear e tiology, plan for echo Morteza Fish MD Cardiology:trace to 1+ bialterally consistent with venous insufficiency W ill plan to assess Echo and venous reflux study Morteza Fish MD Cardiology: H er updated medication list for this problem includes: Metoprolol Succinate 25 Mg Tablet Extended Release 24 Hr (Metoprolol succinate) ..... Take 1 tablet by mouth every day BP today: 140/80 Morteza Fish MD Date Name Complete Echo Venous Doppler Bilat eral LE - Reflux HISTORY OF PROCEDURES Procedure Date Procedure Name Provider Procedure Notes S tatus EKG Morteza Fish MD completed
--- OUTSIDE RECORDS SUMMARY | 2025-04-01 10:24 | XMS_ITS | Encounter Summary ---
Author Organization [employer] Address [address] [place] [address] Care Team Providers Care Tank Stave Assembler Name Role Phone Artie Perkins MD Primary Care Provider [phone] Encounter Details Date Type Department Care Team (Latest Contact Info) Description 02/18/2005 Outpatient Historical [facility] Ildefonso Cameron MD [address] [place] [phone] DERANG POST MED MENISCUS (Primary Dx) Social History Tobacco Use Types Packs/Day Years Used Date Smoking Tobacco: Never Assessed Comments Unknown Sex and Gender Information Value Date Recorded Sex Assigned at Not on file Legal Sex Female 3:35 AM RETAIL BAKERY MANAGER Gender Identity Not on file Sexual Orientation Not on file documented as of this encounter Plan of Treatment Not on file documented as of this encounter Procedures Procedure Name Priority Date/Time Associated Diagnosis Comments HEMOGLOBIN AND HEMATOCRIT Routine 02/17/2005 3:45 PM RETAIL BAKERY MANAGER BASIC METABOLIC PANEL Routine 02/17/2005 3:45 PM RETAIL BAKERY MANAGER documented in this encounter Results * HEMOGLOBIN AND HEMATOCRIT (02/17/2005 3:45 PM RETAIL BAKERY MANAGER) HEMOGLOBIN 12.2 11.8 - 14.8 g/dL INTERFACE SYSTEM HEMATOCRIT 38.1 35.5 - 44.0 % INTERFACE SYSTEM 02/17/2005 3:45 PM RETAIL BAKERY MANAGER us Ildefonso Cameron MD HEMATOLOGY ORDERABLES Final Re sult Performing Organization Address [facility] de Phone Number INTERFACE SYSTEM Refer to clinic/hospital department * (ABNORMAL) BASIC METABOLIC PANEL (02/17/2005 3:45 PM RETAIL BAKERY MANAGER) GLUCOSE 96 65 - 109 mg/dL INTERFACE SYSTEM CREATININE 0.7 0.4 - 1.2 mg/dL INTERFACE SYSTEM CALCIUM 9.3 8.6 - 10.2 mg/dL INTERFACE SYSTEM BUN 10 6 - 20 mg/dL INTERFACE SYSTEM SODIUM 139 135 - 145 mmol/L INTERFACE SYSTEM POTASSIUM 3.3(L) 3.5 - 4.9 mmol/L INTERFACE SYSTEM CHLORIDE 101 96 - 108 mmol/L INTERFACE SYSTEM CO2 29 22 - 30 mmol/L INTERFACE SYSTEM 02/17/2005 3:45 PM RETAIL BAKERY MANAGER us Ildefonso Cameron MD CHEMISTRY ORDERABLES Final Res ult Performing Organization Address [facility] Phone Number INTERFACE SYSTEM Refer to clinic/hospital department documented in this encounter Visit Diagnoses Diagnosis Derangement of posterior horn of medial meniscus- Primary documented in this encounter Additional Health Concerns Infection Onset Date Last Indicated Resolved Time R/O Respiratory 12/22/2023 12/22/2023 12/22/2023 1 :57 PM RETAIL BAKERY MANAGER documented as of this encounter Care Teams Tank Stave Assembler Relationship Specialty Start Date End Date Artie Perkins MD [address] [place] [address] PCP - General Internal Medicine 12/13/23 documented as of this encounter
--- OUTSIDE RECORDS SUMMARY | 2025-04-01 10:24 | XMS_ITS | Continuity of Care Document ---
Author Name [facility] Organization [facility] Care Team Providers Care Bobtail Driver Name Role Phone [facility] Unavailable Unavailable Problems Combined list of problems from Department of Defense and Veterans Affairs facilities. It does not include entries that were removed or entered in error. Problem Status Onset Date Problem Type Date of Resolution Comments Source Diagnosis: ICD-10-CM Z63.6 Dependent relative needing care at home Active Diagnosis [facility] Medications Combined list of outpatient medications from Department of [facility] and [facility] facilities.Medications provided include 1) outpatient medications from the last 15 months, and 2) patient-reported medications. Medication Details Route Status Patient Instructions Prescription Expires Prescription Number Last Dispense Date Ordering Provider Order Date Order Qty Source dilTIAZem 60 mg/12 hours oral capsule, extended release TAKE ONE CAPSULE TWICE DAILY *ALLOW 3 TO 5 DUTY DAYS FOR ORDERING *, # 180 EA, 1 total refill(s ), Acute Complet ed 02/13/20242023 180.0 Ambulat ory Pharmac y ELIQUIS (APIXABAN), 5 MG, TABLET, ORAL, BMS PRIMARYCARE , 60 ea. BOTTLE Cancele d [id number] : 2023 0 Pharmac y Data Transac tion Service Facilit y IBUPROFEN (ibuprofen) , 400 MG, TABLET, ORAL, STRIDES PHARMA, 500 ea. BOTTLE Active [id number] 2023 30 Pharmac y Data Transac tion Service Facilit y METOPROLOL SUCCINATE (metoprolol succinate), 50 MG, TAB ER 24H, ORAL, ACTAVIS/TEV A, 100 ea. BOTTLE Cancele d [id number] : 2023 0 Pharmac y Data Transac tion Service Facilit y PANTOPRAZOL E SODIUM (PANTOPRAZO LE SODIUM), 40 MG, TABLET DR, ORAL, MYLAN, 90 ea. BOTTLE Active [id number] 2023 30 Pharmac y Data Transac tion Service Facilit y Immunizations Combined list of available immunizations from the Department of Defense and Veterans Affairs facilities. Immunization Series Date Given Administered By Site Reaction Lot Number CVX Code Drug Geochemistry Teacher Status Comments Source COVID-19 ([employer]), MRNA, LNP-S, BIVALENT, PF, 30 MCG/0.3 ML DOSE 1 2021 300 complet ed HISTORICA L INFORMATI ON - FROM OTHER [facility] N INFLUENZA VACCINE, QUADRIVALENT, ADJUVANTED 5 2021 205 complet ed HISTORICA L INFORMATI ON - FROM OTHER [facility] N INFLUENZA VACCINE, QUADRIVALENT, ADJUVANTED 4 2020 205 complet ed HISTORICA L INFORMATI ON - FROM OTHER [facility], [facility] N INFLUENZA, RECOMBINANT, QUADRIVALENT, INJECTABLE, PRESERVATIVE FREE 3 2019 185 complet ed HISTORICA L INFORMATI ON - FROM OTHER [facility] N Tdap 2019 ALUL, () Not Given Tdap [facility] Hep A-Hep B 2019 ALUL, () Not Given Hep A-Hep B [facility] INFLUENZA, HIGH DOSE SEASONAL 2 2018 135 complet ed HISTORICA L INFORMATI ON - FROM OTHER [facility] PNEUMOCOCCAL POLYSACCHARID E PPV23 2 2018 33 complet ed HISTORICA L INFORMATI ON - FROM OTHER [facility] TDAP 1 2016 115 complet ed HISTORICA L INFORMATI ON - FROM OTHER [facility] N PNEUMOCOCCAL CONJUGATE PCV 13 1 2015 133 complet ed HISTORICA L INFORMATI ON - FROM OTHER [facility] N INFLUENZA, HIGH DOSE SEASONAL 1 2015 135 complet ed HISTORICA L INFORMATI ON - FROM OTHER [facility] Encounters Combined list of: 1) Encounters from Department of Veterans Affairs facilities going backup to the last 18 months, not all VA inpatient encounters are included; 2) Encounters from the Department of Defense facilities going backup to 280 months. Location Location Details Encounter Type Encounter Number Reason For Visit Attending Provider ADM Date DC Date Status Disposition Source [facility] ASSMT/REAS SESSMENT [id number] Diagnos is: ICD-10- CM Z63.6 Depende nt relativ e needing care at home YOSEPH SHARMA KAELYNSONUCASSIUS [place] 10/20 [facility] Outpatient Encounter [id number] 10/25 [facility] ASSMT/REAS SESSMENT [id number] Diagnos is: ICD-10- CM Z63.6 Depende nt relativ e needing care at home THERESA PRICE CY L 10/30 [facility] Outpatient Encounter [id number] 01/03 [facility] Outpatient Encounter [id number] THERESA PRICE CY L 01/30 [facility] Procedures Combined list of: 1) Procedures from Department of [facility] Affairs facilities going back up to thelast 18 months, not all [place] non-surgical procedures are included; 2) All procedures from the Department [facility] facilities. Procedure Procedure Type Code Date Perfomer Comments Sourc e No data available for this section Ambulatory P harmacy Social History Combined list of available smoking, tobacco, and other social history from Department of Defense and Veterans Affairs facilities. Social History Type Response Date Comment Sourc e This section is an empty social history section. DoD Assessment and Plan Combined list of future care activities from Department of Defense and Veterans Affairs facilities (e.g., assessment and plan notes, appointments, orders, and referrals). Additional future care activities may be listed in the Plan of Care section. Result Assessment and Plan Date Source Assessment and Plan No data available for this section 04/01/2025 Ambulatory Pharmacy Functional Status Combined list of recent functional and cognitive assessments recorded at Department of Defense and Veterans Affairs (VA).VA Functional Diamond Measurement (FIM) Scale: 1 = Total Assistance (Subject = 0% +), 2 = Maximal Assistance (Subject = 25% +), 3 = Moderate Assistance (Subject = 50% +), 4 = Minimal Assistance (Subject = 75% +), 5 = Supervision, 6 = Modified Diamond (Device), 7 = Complete Diamond (Timely, Safely). Assessment Date/Time Source Assessment Type Assessment Skill Assessment Score Assessment Details No data available for this section
--- OUTSIDE RECORDS SUMMARY | 2025-04-01 10:24 | XMS_ITS | Encounter Summary ---
Author Organization [facility] Address [address] [place] [address] Care Team Providers Care Marketing Representative Name Role Phone Nabor Valle MD Primary Care Provider Chanelle Flood DIVISION ROADMASTER-GOLD AND SILVER ASSAYER Unavailable [phone] [address] Henderson DIVISION ROADMASTER-GOLD AND SILVER ASSAYER Unavailable [phone] Rosa Dobson MD Unavailable [phone] Rosario Lundberg MD Unavailable Veronica Henderson DIVISION ROADMASTER-GOLD AND SILVER ASSAYER Primary Care Provider Veronica Henderson DIVISION ROADMASTER-GOLD AND SILVER ASSAYER Unavailable [phone] Saul Powers MD Primary Care Provider Veronica Otero DIVISION ROADMASTER-GOLD AND SILVER ASSAYER Unavailable [phone] Veronica Henderson DIVISION ROADMASTER-GOLD AND SILVER ASSAYER Unavailable [phone] Saul Powers MD Unavailable Unavailable Shelby Nguyen [facility] Unavailable Shara Bello REGISTERED SALES ASSISTANT Unavailable [phone] Saul Powers MD Unavailable Unavailable Christina Kirk RN Unavailable Smita Bolanos RN Unavailable Smita Bolanos RN Unavailable SalimaVeronica mann DIVISION ROADMASTER-GOLD AND SILVER ASSAYER Unavailable [phone] Saul Powers MD Primary Care Provider Artie Zepeda MD Primary Care Provider Saul Powers MD Unavailable Unavailable Martin Hutchison JAYA Unavailable [phone] Saul Powers MD Unavailable Unavailable Corinne San DIVISION ROADMASTER-GOLD AND SILVER ASSAYER Unavailable Artie Perkins MD Unavailable Encounter Details Date Type Department Care Team (Late st Contact Info) Description 09/02/2020 [facility] Outpatient Visit [facility] Medical [facility] - Family Medicine [address] [place] [phone] Nabor Valle MD [address], [place] [phone] Social History Tobacco Use Types Packs/Day Years [...] on filedocumented in this encounter Care Teams Marketing Representative Relationship Specialty Start Date End Date Nabor Valle MD PCP - General Family Medicine 08/29/16 07/04/21 Chanelle Flood APRN-CNP [address] [place] [address] PCP - Attributed-[facility] 01/19/20 05/19/21 Veronica Henderson APRN-CNP [address] [place] [address] PCP - General Nurse Practitioner [facility] 07/05/21 01/06/22 Veronica Henderson APRN-CNP [address] [place] [address] PCP - Attributed-[facility] 05/20/21 11/04/21 Saul Powers MD [address] [place] [address] PCP - General Family Medicine 01/07/22 11/15/23 Veronica Henderson APRN-CNP [address] [place] [address] PCP - Attributed-[facility] 12/21/21 05/06/22 Veronica Henderson APRN-CNP [address] [place] [address] PCP - [facility]ributed[facility] 07/21/22 11/19/22 Saul Powers MD PCP - [facility]ributed[facility] 11/20/22 02/04/23 Saul Powers MD PCP - [facility]ributed[facility] [place] 04/20/23 06/19/23 Veronica Henderson APRN-GOLD AND SILVER ASSAYER [address] [place] [address] PCP - [facility]ributed[facility] [place] 06/20/23 09/06/23 Saul Powers MD PCP - General Family Medicine 11/16/23 11/21/23 Artie Perkins MD [address] [place] [phone] PCP - General Internal Medicine 11/27/23 Saul Powers MD PCP - Attributed-[facility] [place] 01/19/24 02/08/24 Salu Powers MD PCP - Attributed-[facility] 02/19/24 09/06/24 Artie Perkins MD [address] [place] [phone] PCP - Attributed-[facility] 01/18/25 Veronica Henderson APRN-GOLD AND SILVER ASSAYER [address] [place] [address] Nurse Practitioner Family 06/10/21 Rosa Dobson MD [facility] [address] [address] Rheumatology 06/10/21 Rosario Lundberg MD [address] [address] Dermatology 06/10/21 Shelby Nguyen, [facility] Outpatient Hospitality Specialist Care Management 06/08/23 06/08/23 Shara Bello, REGISTERED SALES ASSISTANT Outpatient Hospitality Specialist Care Management 06/08/23 06/22/23 Christina Kirk RN Post Acute Gathering Machine FeederRegistry Nurse 06/22/23 06/26/23 Smita Bolanos, RN Gathering Machine FeederRegistry Nurse 06/26/23 06/27/23 Smita Bolanos, RN Gathering Machine FeederRegistry Nurse 07/05/23 08/14/23 Martin Hutchison, JAYA [address] [address] Care Coordination Specialist Care Management 02/27/24 04/12/24 Corinne San, DIVISION ROADMASTER-GOLD AND SILVER ASSAYER [address] [place] [phone] Nurse Practitioner 05/15/24 documented as of this encounter
--- OUTSIDE RECORDS SUMMARY | 2025-04-01 10:24 | XMS_ITS | Encounter Summary ---
Author Organization [facility] Address [address] [place] [address] Care Team Providers Care Display Card Writer Name Role Phone Artie Perkins MD Primary Care Provider Encounter Details Date Type Department Care Team (Late st Contact Info) Description 12/31/1998 Outpatient Historical [facility] María Elena Ch Social History Tobacco Use Types Packs/Day Years Used Date Smoking Tobacco: Never Assessed Comments Unknown Sex and Gender Information Value Date Recorded Sex Assigned at Not on file Legal Sex Female 3:35 AM COPPER PLATE LITHOGRAPHER Gender Identity Not on file Sexual Orientation Not on file documented as of this encounter Plan of Treatment Not on file documented as of this encounter Visit Diagnoses Not on filedocumented in this encounter Additional Health Concerns Infection Onset Date Last Indicated Resolved Time R/O Respiratory 12/22/2023 12/22/2023 12/22/2023 1 :57 PM COPPER PLATE LITHOGRAPHER documented as of this encounter Care Teams Display Card Writer Relationship Specialty Start Date End Date Artie Perkins MD [address] [place] [phone] PCP - General Internal Medicine 12/13/23 documented as of this encounter
--- OUTSIDE RECORDS SUMMARY | 2025-04-01 10:24 | XMS_ITS | Encounter Summary ---
Author Organization [facility] Address [address] [place] [address] Care Team Providers Care Benzene Still Utility Operator Name Role Phone Artie Perkins MD Primary Care Provider Encounter Details Date Type Department Care Team (Late st Contact Info) Description 02/17/2005 Outpatient Historical [facility]) [address] 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 Gender Identity Not on file Sexual Orientation Not on file documented as of this encounter Plan of Treatment Not on file documented as of this encounter Visit Diagnoses Not on filedocumented in this encounter Additional Health Concerns Infection Onset Date Last Indicated Resolved Time R/O Respiratory 12/22/2023 12/22/2023 12/22/2023 1 :57 PM INJECTION MOLDING OPERATOR documented as of this encounter Care Teams Benzene Still Utility Operator Relationship Specialty Start Date End Date Artie Perkins MD [address] [place] [phone] PCP - General Internal Medicine 12/13/23 documented as of this encounter
--- OUTSIDE RECORDS SUMMARY | 2025-04-01 10:24 | XMS_ITS ---
Author Organization [facility] Care Team Providers Care Complementary Health Therapists Name Role Phone Mauro Mattson Unavailable Unavailable Zo Mattson Unavailable Unavailable Allergies and adverse reactions Code CodeSystem Substance Reaction Severity StartDate Concern Status 014617 RXNORM Ustekinumab Unknown 06/16/2023 active 62301 RXNORM Tetracycline Mild 06/16/[address] Sulfa Antibiotics Unknown 06/16/2023 active 8640 RXNORM predniSONE Mild 06/16/2023 active 7984 RXNORM Penicillin Unknown 06/16/2023 active Peanut Severe 06/16/2023 active 88202 RXNORM Lisinopril Mild 06/16/2023 active Latex Unknown 06/16/2023 active 5032 RXNORM guaiFENesin Mild 06/16/2023 active 4053 RXNORM Erythromycin Unknown 06/16/2023 active Banana Mild 06/16/2023 active 01138 RXNORM Atorvastatin Unknown 06/16/2023 active 0936611 RXNORM Apremilast Unknown 06/16/2023 active 92362 RXNORM amLODIPine Mild 06/16/2023 active 453247 RXNORM Adalimumab Unknown 06/16/2023 active Care Team Name Role Address Phone Organization Max Mattson PCP [address] [place], [address], [place] (Office): : : [facility] 06/16/2023 - 06/25/2023 Zo Mattson [address] [facility] , [place], [place], [facility] (Office): : : [facility] 06/16/2023 - 06/25/2023 Goals Section Description Status Target Date Needs will be met to promote recovery and ensure medical safety Active 09/19/2023 Resident Will remain free of bleeding/bruising r/t anticoagulation medication use throughout next review. Active 09/19/2023 Resident will be discharged to a less structured level of care with appropriate supportive services, by next review. Active 09/19/2023 Resident will be free from c omplications of Cardia problems through next review Active 09/19/2023 Resident will have no signs or symptoms of active infection and/or infection will be resolved by next review. Active 09/19/2023 Resident will remain free fr om discomfort or complications r/t GERD through next review Active 09/19/2023 Resident will remain free from infection through out next review. Active 09/19/2023 Resident will remain free of respiratory infection signs and symptoms Active 09/19/2023 Resident will remain free of s/s or complications related to Deep Vein Thrombosis through next review Active 09/19/2023 Staff will monitor well-bein g of others. Resident will have zero episodes of abuse and neglect throughout next review. Active 09/19/2023 The resident wishes for FULL CODE status as specified in their advance directive documents will be honored and clearly delineated in the medical record in compliance with state law. Active WILL MAINTAIN/IMPROVE CURRENT ROM THROUGH NEXT C AREPLAN REVIEW Active 09/19/2023 Will maintain adequate level of comfort as evidence by no s/s of unrelieved pain or distress, verbalizing satisfaction or expressing with relief and comfort throughout next review. Active 09/19/2023 Will maintain adequate skin integrity throughout next review. Active 09/19/2023 Will maintain current daily care abilities with assistance from the staff without showing a decline throughout next review. Active 09/19/2023 Will remain free from s/s of complications r/t anemia throughout next review. Active 09/19/2023 Will remain free of falls ca using hospitalizations r/t injury thru next review. Active 09/19/2023 Immunizations Immunization Status Vaccine Details Vaccine Code CodeSystem Date Notes Hepatitis B completed hepatitis B vaccine, adult dosage lotNumber: [id number] Given 0.1 ml intramuscularly 43 CVX created date: 06/21/2023 administer ed date: 07/31/2020 TB 2 Step Mantoux Skin Test completed tuberculin skin test; unspecified formulation lotNumber: [id number] expiry: 04/27/2025 Mfg: [employer] Given 0.1 ml Right Forearm intradermally Step 1 of Multi-step with next step required 98 CVX created date: 06/21/2023 consent date: 06/21/2023 administer ed date: 06/21/2023 Educated by Donovan Vieyra on 06/21/2023 Zoster (Shingles) completed zoster vaccine, live lotNumber: [id number] Mfg: zostavax Given intramuscularly 121 CVX created date: 06/21/2023 administer ed date: 11/02/2015 Hepatitis A completed hepatitis A and hepatitis B vaccine lotNumber: [id number] Given intramuscularly 104 CVX created date: 06/21/2023 administer ed date: 07/31/2020 SARS-COV-2 (COVID-19) completed SARS-COV-2 (COVID-19) vaccine, mRNA, spike protein, LNP, preservative free, 30 mcg/0.3mL dose lotNumber: [id number] Mfg: [employer] Given 0.3 ml intramuscularly Step 2 of Multi-step with next step required 208 CVX created date: 06/21/2023 administer ed date: 02/12/2021 SARS-COV-2 (COVID-19) completed SARS-COV-2 (COVID-19) vaccine, mRNA, spike protein, LNP, preservative free, 30 mcg/0.3mL dose lotNumber: [id number] Mfg: [employer] Given 0.3 ml intramuscularly Step 1 of Multi-step with next step required 208 CVX created date: 06/21/2023 administer ed date: 01/15/2021 SARS-COV-2 Booster (COVID-19 Booster) completed SARS-COV-2 (COVID-19) vaccine, mRNA, spike protein, LNP, preservative free, 100 mcg/0.5mL dose or 50 mcg/0.25mL dose lotNumber: [id number] Mfg: [employer] Given 0.3 ml intramuscularly 207 CVX created date: 06/21/2023 administer ed date: 05/27/2022 SARS-COV-2 Booster (COVID-19 Booster) completed SARS-COV-2 (COVID-19) vaccine, mRNA, spike protein, LNP, preservative free, 100 mcg/0.5mL dose or 50 mcg/0.25mL dose lotNumber: [id number] Mfg: Pfizer Booster Given 0.3 ml intramuscularly 207 CVX created date: 06/21/2023 administer ed date: 07/22/2021 Mental Status Section Date Assessment Total Score Description 06/25/2023 CAM 4 Delirium indica abdi 06/23/2023 BIMS 12 moderate cognit kaushik impairment CAM 4 Delirium indica abdi PHQ-9 15 moderately derek re depression Problems Problem # Description Date of onset Resolved Date Code CodeSystem Concern Status 1 ACUTE EMBOLISM AND THROMBOSIS OF OTHER SPECIFIED DEEP VEIN OF UNSPECIFIED LOWER EXTREMITY 06/17/20 23 06/19/[address] completed 2 CHRONIC VENOUS HYPERTENSION (IDIOPATHIC) WITH OTHER COMPLICATIONS OF BILATERAL LOWER EXTREMITY 06/17/[address] active 3 GASTRO-ESOPHAGEA L REFLUX DISEASE WITHOUT ESOPHAGITIS 06/17/[address] active 4 ACQUIRED ABSENCE OF BOTH CERVIX AND UTERUS 06/16/[address] active 5 ANEMIA, UNSPECIFIED 06/16/[address] active 6 ARTHRITIS DUE TO OTHER BACTERIA, RIGHT KNEE 06/16/[address] active 7 EFFUSION, RIGHT KNEE 06/16/[address] active 8 ELEVATED WHITE BLOOD CELL COUNT, UNSPECIFIED 06/16/[address] active 9 ENCOUNTER FOR SURGICAL AFTERCARE FOLLOWING SURGERY ON THE SKIN AND SUBCUTANEOUS TISSUE 06/16/[address] active 10 ESSENTIAL (PRIMARY) HYPERTENSION 06/16/[address] active 11 OTHER ABNORMALITIES OF GAIT AND MOBILITY 06/16/[address] active 12 PERSONAL HISTORY OF OTHER VENOUS THROMBOSIS AND EMBOLISM 06/16/[address] active 13 PRESENCE OF UNSPECIFIED ARTIFICIAL KNEE JOINT 06/16/[address] active 14 RHEUMATOID ARTHRITIS WITH RHEUMATOID FACTOR, UNSPECIFIED 06/16/[address] active 15 UNSTEADINESS ON FEET 06/16/[address] active Reason for Referral No Reasons for Referral Entered Social History Social History Observation Description Start Date End Date Code Code System Current Smoking Status Tobacco smoking consumption unknown 223280649 SNOMED CT Sex Assigned At Female 1950 38012-3 [facility] Gender Identity Vital Signs Code Code System Vitals Name Values and Units Timing Information 52492-1 [facility] Pain Level Value=0.0 06/25/2023 9279-1 [facility] Respiratory Rate Value=18.0 Units=/m in 06/25/2023 8462-4 [facility] Blood Pressure-Diastolic Value=84 Un its=mmHg 06/25/2023 8480-6 [facility] Blood Pressure-Systolic Sbkpu=325 Un its=mmHg 06/25/2023 8310-5 [facility] Body Temperature Value=97.4 Units= F 06/25/2023 8867-4 [facility] Heart rate Vqvmm=424.0 Units=/min 06/25/2023 13788-8 [facility] O2 % BldC Oximetry Value=98.0 Units= % 06/25/2023 69291-8 [facility] Weight Tyusl=936.0 Units=Lbs 11/2022 8302-2 [facility] Height Value=65.0 Units=Inches 06/17/2023
--- OUTSIDE RECORDS SUMMARY | 2025-04-01 10:24 | XMS_ITS | Clinical Summary ---
Author Organization [facility] Address [address] [place] [address] Care Team Providers Care Admitting Interviewer Name Role Phone Veronica Henderson COMMUNITY EDUCATION COORDINATOR-SIZING MACHINE TENDER Unavailable [phone] Rosa Dobson MD Unavailable Rosario Lundberg MD Unavailable Artie Perkins MD Primary Care Provider [phone] Corinne San COMMUNITY EDUCATION COORDINATOR-SIZING MACHINE TENDER Unavailable Artie Perkins MD Unavailable Source Comments [facility],non-owned Affiliates and Associated Physician Practices is amultiple site organization consisting of ambulatory clinics and hospital sitesin [place], [place], [place] and [place]. This disclosure is being madepursuant to the Care Everywhere program and may not contain all information available regarding this patient. Last updated 18.[facility] Allergies Active Allergy Reactions Criticality Noted Date Comments Adalimumab Itching Low 03/29/2017 Amlodipine Base Angioedema High 08/29/2016 Banana Itching Medium 04/21/2016 Banana Extract Allergy Skin Test Itching Low 06/21/2018 Cefepime Other High 12/19/2023 Non-convulsive status epilepticus in 11/2023. Had tolerate cefepime in past. Cyclosporine Unknown 09/28/2021 Dextromethorphan Urticaria Medium 05/09/2024 Erythromycin 12/22/2015 Guaifenesin Unknown Low 06/16/2023 Adalimumab-Polysorbate 80 03/29/2017 Latex 12/22/2015 Atorvastatin 12/22/2015 Lisinopril Angioedema High 07/20/2016 Meloxicam Swelling 05/24/2023 Nickel Unknown 12/28/2021 Apremilast 03/29/2017 Oxycodone Dizziness Low 06/02/2023 Peanut-Derived 12/22/2015 Penicillins 12/22/2015 Prednisone Rash High 10/31/2016 Ustekinumab 03/29/2017 Sulfa Antibiotics Unknown 06/16/2023 Sulfa Drugs Itching 12/25/2017 Tetracycline 02/19/2014 Tetracyclines 04/21/2016 Theraflu Flu-Chest Congestion Angioedema High 12/25/2017 Tree Nuts Urticaria Medium 05/09/2024 Ustekinumab Angioedema High 03/29/2017 Medications * This document contains information received from the source organization and may not represent a complete record from that organization. * Be aware that medications may not be up to date on this document. Alwaysverify current medications with the patient. EPINEPHrine (EPIPEN) 0.3 MG/0.3ML auto-injector pen 7 Active ferrous sulfate 300mg/5ml, 60mg FE/5ml, 300 (60 Fe) MG/5ML solution 5 mL by Nasogastric route once daily 4 Active polyethylene glycol 3350 (Miralax) 17 g packet 17 (seventeen) g by Enteral route once daily 4 Active senna-docusate (Senokot-S) 8.6-50 MG tablet 1 (one) tablet by Enteral route 2 times daily 4 Active folic acid (Folvite) 1 MG tablet Take 1 (one) tablet by mouth once daily 4 Active metoprolol succinate XL 24hr (Toprol XL) 25 MG tablet 4 Active docusate sodium (Colace) 100 MG capsule TAKE ONE CAPSULE BY MOUTH EVERY 12 HOURS NEEDED FOR CONSTIPATION 4 Active Magnesium 100 MG Active traMADol (Ultram) 50 MG tablet Take 1 (one) tablet by mouth 3 times daily as needed for Pain 60 tablet 4 Active Active Problems Problem Noted Date Diagnosed Date History of falling 11/20/2023 History of rheumatoid arthritis 11/14/2023 Assessment & Plan (11/14/2023 3:01 PM DIRECTOR PRODUCT): History of RA although without current findings to indicate active joint synovitis. Baseline XR hand imaging ordered. Need prior records. Recheck CRP/ESR (most recent results with significant elevation presumably due to 06/2023 right knee pyogenic infection). Polyarthralgia 11/14/2023 Overview (11/14/2023): Reports chronic musculoskeletal pain/polyarthralgia without active synovitis. Suspected DJD. Discussed with PCP pain management options. Psoriatic arthritis 07/04/2023 Rash and other nonspecific skin eruption 023 Hypokalemia 06/27/2023 Weakness 06/27/2023 PICC (peripherally inserted central catheter) in place 06/27/2023 Gastroesophageal reflux disease 06/17/2023 Fall, initial encounter 06/02/2023 Right wrist pain 06/02/2023 History of rheumatoid arthritis 06/02/2023 Bilateral lower extremity edema 06/02/2023 Chronic pain of right knee 06/02/2023 Infection of prosthetic left knee joint 12/02/19 22 History of total knee arthroplasty 11/29/2021 Infection of total knee replacement 11/29/2021 Obesity (BMI 30.0-34.9) 12/03/2020 Neck pain 12/26/2017 Essential hypertension 04/12/2017 Poor venous access 12/14/2016 Assessment & Plan (12/14/2016 2:49 PM DIRECTOR PRODUCT): Port for access Exfoliative dermatitis 05/03/2016 Leukemoid reaction 05/03/2016 History of DVT (deep vein thrombosis) 05/03/2016 Medication monitoring encounter 12/23/2015 Other spondylosis with radiculopathy, lumbar reg ion 12/23/2015 Low back pain 12/23/2015 Peripheral neuropathy 12/23/2015 Sleep apnea, obstructive 04/30/2015 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 04/30/2015 Pure hypercholesterolemia 04/30/2015 Resolved Problems Problem Noted Date Diagnosed Date Resolved Date Pyogenic arthritis of right knee joint, due to unspecified organism 06/27/2023 11/27/2023 Warfarin-induced coagulopathy 05/03/2016 01/08/2018 Rheumatoid arthritis involvi ng multiple sites with positive rheumatoid factor 05/03/2016 11/14/20 23 Immunizations Immunization Administration Dates Next Due COVID MODERNA 12+ yr 50mcg/0.5mL 08/13/2024 COVID PFIZER BIVALENT 12Y+ 30mcg/0.3ML 2 Covid Pfizer primary monoval ent 12+ yr 0.3mL Purple cap 02/12/2021,01/15/2021 HEP A/HEP B 07/31/2020 HEP B VACCINE, ADULT 3 DOSE 07/31/2020 INFLUENZA VACCINE, ADJUVANTE D, QUADR. (FLUAD QUADRIVALENT; 65Y+) (AIIV4) 09/13/2022,09/28/2021 INFLUENZA VACCINE, ADJUVANTE D, TRIV. (FLUAD TRIVALENT; 65Y+) (AIIV3) 08/13/2024 INFLUENZA VACCINE, HIGH-DOSE , QUADR. (FLUZONE HIGH-DOSE QUADRIVALENT; 65Y+), 0.7 ML (HD-IIV4) 08/28/2019,08/29/2016 PNEUMOCOCCAL PPSV23 08/28/2019,08/06/2019 Pneumococcal Pcv13 Conj 09/02/2016 TD VACCINE 08/27/2019 TDAP (7yrs+) 07/31/2020,06/08/2017 ZOSTER VACCINE, LIVE 11/02/2015 iNFLUENZA VACCINE, RECOM-CASTAÑEDA, QUADR. (FLUBLOCK QUADRIVALENT; 18Y+) (RIV4) 08/17/2020 Family History Medical History Relation Name Comments Tuberculosis Father Cancer Other 1 Heart Disease Other 2 Hypertension Other 3 Asthma Other 4 Diabetes Other 5 Relation Name Status Comments Father (Age 71) Mother (Age 57) Other 1 Other 2 Other 3 Other 4 Other 5 Social History Tobacco Use Types Packs/Day Years Used Date Smoking Tobacco: Never Smokeless Tobacco: Never Alcohol Use Standard Drinks/Week Comments No 0 (1 standard drink = 0.6 oz pur e alcohol) AUDIT-C Answer Date Recorded Q1: How often do you have a drink containing alcohol? Never 06/29/2023 Q2: How many drinks containi ng alcohol do you have on a typical day when you are drinking? Patient does not drink Q3: How often do you have si x or more drinks on one occasion? Never 06/29/2023 Overall Financial Resource Strain (CARDIA) Answe r Date Recorded How hard is it for you to pa y for the very basics like food, housing, medical care, and heating? Not hard at all 06/29/2023 PHQ-2 Answer Date Recorded Patient Health Questionnaire-2 Score 0 08/13/2024 [facility] - Occupational Stress Questionnaire Answer Date Recorded Do you feel stress - tense, restless, nervous, or anxious, or unable to sleep at night because your mind is troubled all the time - these days? Not at all 06/29/2023 Hunger Vital Sign Answer Date Recorded Within the past 12 months, y ou worried that your food would run out before you got the money to buy more. Never true 06/29/20 23 Within the past 12 months, t he food you bought just didn't last and you didn't have money to get more. Never true 06/29/2023 PRAPARE - Transportation Answer Date Re corded In the past 12 months, has l ack of transportation kept you from medical appointments or from getting medications? No 06/20 In the past 12 months, has l ack of transportation kept you from meetings, work, or from getting things needed for daily living? No 06/29/2023 Housing Stability Vital Sign Answer Kenneth e Recorded In the last 12 months, was t here a time when you were not able to pay the mortgage or rent on time? No 06/29/2023 In the last 12 months, how many places have you lived? 1 06/29/2023 In the last 12 months, was t here a time when you did not have a steady place to sleep or slept in a correction (including now)? 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 Not on file Not on file Last Filed Vital Signs Vital Sign Reading Time Taken Comments Blood Pressure 139/78 08/13/2024 2:07 PM CDT Pulse 75 08/13/2024 2:07 PM CDT Temperature 36.7 C (98.1 F) 08/13/2024 2:07 PM CDT Respiratory Rate 18 08/13/2024 2:07 PM CDT Oxygen Saturation 99% 08/13/2024 2:07 PM CDT Inhaled Oxygen Concentration - - Weight 55.2 kg (121 lb 9.6 oz) 08/13/2024 2:07 P M CDT Height 165.1 cm (5' 5 ) 08/13/2024 2:07 PM CDT Body Mass Index 20.24 08/13/2024 2:07 PM CDT Plan of Treatment Health Maintenance Due Date Last Done Comments COLOGUARD (AGES 45-75) - COLON CA SCREENING [address] COLONOGRAPHY - COLON CA SCREENING 1950 FIT - COLON CA SCREENING 1950 FLEX SIG - COLON CA SCREENING 1950 Respiratory Syncytial Virus (RSV) Vaccine Pt: or over 60 yrs (1 - Risk 60-74 years 1-dose series) 2010 ZOSTER VACCINE (2 of 2) 12/28/2015 11/02/20 15, 10/20/2015 (Done Outside Per Patient) MAMMOGRAM 05/12/2024 05/12/2022, 04/21, 05/12/2022, Additional history exists DEPRESSION SCREENING 11/20/2024 11/27/2023, 04/13/2023, 02/02/2022 MEDICARE AWV CALENDAR YEAR 2024 11/27/2023, 04/13/2023, 02/02/2022, Additional history exists COVID-19 VACCINE ( season) 2025 08/13/2024, 09/13/2022, 05/27/2022, Additional history exists COLONOSCOPY - COLON CA SCREENING 01/18/2026 01/19/2016 (Done Outside Per Patient) Colorectal Cancer Screening 01/18/2026 LIPID TESTING 01/25/2029 01/26/2024, 03/0 05/2024, 01/24/2024, Additional history exists DTAP/TDAP/TD VACCINES (4 - Td or Tdap) 07/31/2030 07/31/2020, 08/27/2019, 06/08/2017 BONE DENSITY TESTING Completed 01/19/2016 (Done Outside Per Patient) PNEUMOCOCCAL VACCINE 50+ Completed 019, 08/06/2019, 09/02/2016 HEPATITIS B VACCINE Discontinued 07/31/2020, 0 HEPATITIS C SCREENING Completed 07/31/2021 INFLUENZA VACCINE Completed 08/13/2024, , 09/28/2021, Additional history exists HIB VACCINE Aged Out No longer eligi ble based on patient's age to complete this topic HPV VACCINE Aged Out No longer eligi ble based on patient's age to complete this topic MENINGOCOCCAL (Group B) VACCINE SHARED DECISION-MAKING Aged Out No longer eligible based on patient's age to complete this topic MENINGOCOCCAL GROUPS A/C/Y/W VACCINE Aged Out No longer eligible based on patient's age to complete this topic Medical Devices Implanted Type Area Gate Watchman Device Identifier Shelf Expiration Date Model / Serial / Lot Floseal 10 Implanted:Qty : 1 on 12/26/2017 by Abisai Galvez DO at [facility] Cervical [employer] 02/22/2019 [id number] / / [id number] Graft Bone Alfs + Dbm 1ml Pst Implanted:Qty : 1 on 12/26/2017 by Abisai Galvez DO at [facility] Cervical [employer] 09/23/2018 [id number] / / [id number] Level Plate 40mm Implanted:Qty : 1 on 12/26/2017 by Abisai Galvez DO at [facility] [email or web address] [id number] / / Self Tapping Screw 4.0x12 Implanted:Qty : 6 on 12/26/2017 by Abisai Galvez DO at [facility] [email or web address] [id number] / / Spacer 6mm Implanted:Qty : 2 on 12/26/2017 by Abisai Galvez DO at [facility] [employer] [facility] [id number] / / Procedures Procedure Name Priority Date/Time Associated Diagnosis Comments LIPID PROFILE Routine 04/27/2023 10:32 AM CDT Pure hypercholesterolemia MAMMOGRAM 05/12/2022 HEPATITIS C ANTIBODY Routine 07/31/2021 9:36 AM CDT Medicare annual wellness visit, initial from Last 3 Months or Most Recently Relevant to Health Maintenance Results * (ABNORMAL) LIPID PROFILE (04/27/2023 10:32 AM CDT) Cholesterol 225(H) 100 - 199 mg/dL [facility] ACCOUNT BILL Triglycerides 78 0 - 149 mg/dL [facility] ACCOUNT BILL HDL Cholesterol 44 >39 mg/dL [facility] ACCOUNT BILL VLDL Calculated 14 5 - 40 mg/dL [facility] ACCOUNT BILL LDL Calculated 167(H) 0 - 99 mg/dL [facility] ACCOUNT BILL Comment NOT AVAILABLE [facility] ACCOUNT BILL Comment: FASTING Result cannot be obtained for this observation. Blood BLOOD SPECIMEN / Unknown 04/27/2023 10:32 AM CDT 04/27/2023 Narrative Resulting Agency Comment Lab Testing performed at: [facility] [address] [id number] Saul Powers MD LAB - CHEMISTRY ORDERABLES Fi nal Result [facility] ACCOUNT BILL [address] [place] [address] * MAMMOGRAM (05/12/2022) Anatomical Region Laterality Modality Other 05/12/2022 Narrative 05/12/2022 Ordered by an unspecified provider. us Scanned Document SCANNING ONLY Final Result * HEPATITIS C ANTIBODY (07/31/2021 9:36 AM CDT) Hepatitis C Antibody 0.2 0.0 - 0.9 s/co ratio [facility] ACCOUNT BILL Comment: Negative: < 0.8 Indeterminate: 0.8 - 0.9 Positive: > 0.9 . The CDC recommends that a positive HCV antibody result be followed up with a HCV Nucleic Acid Amplification test (991624). Blood BLOOD SPECIMEN / Unknown 07/31/2021 9:36 AM CDT 07/31/2021 Narrative Resulting Agency Comment Lab Testing performed at: [facility] [address] [id number] Chanelle Flood COMMUNITY EDUCATION COORDINATOR-SIZING MACHINE TENDER LAB - CHEMISTRY ORD ERABLES Final Result [facility] ACCOUNT BILL [address] [place] [address] from Last 3 Months or Most Recently Relevant to [place] [id number] [facility] UHC MANAGED MEDICARE ADV [facility] Advance Directives * Full Code (Latest Code Status on File) Date Activated Date Inactivated Comments 06/27/2023 9:23 AM 07/04/2023 3:10 PM * LIMITED RESUSCITATION-PRIOR AND AFTER ARREST Date Activated Date Inactivated Comments 06/02/2023 12:09 PM 06/07/2023 5:36 PM Question Answer Comments Limited Resuscitation: No Intubation, No Invasiv e Ventilation * Full Code Date Activated Date Inactivated Comments 12/26/2017 5:04 PM 12/27/2017 2:35 PM * Full Code Date Activated Date Inactivated Comments 05/02/2016 7:35 PM 05/07/2016 12:28 PM Care Teams Admitting Interviewer Relationship Specialty Start Date End Date Artie Perkins MD [address] [place] [address] PCP - General Internal Medicine 11/27/23 Artie Perkins MD [address] [place] [address] PCP - Attributed-[facility] P4P 01/18/25 Veronica Henderson APRN-SIZING MACHINE TENDER Nurse Practitioner Family 06/10/21 Rosa Dobson MD [address] [address] Rheumatology 06/10/21 Rosario Lundberg MD [address] [address] Dermatology 06/10/21 Corinne San, COMMUNITY EDUCATION COORDINATOR-SIZING MACHINE TENDER [address] [place] [id number] Nurse Practitioner 05/15/24
--- OUTSIDE RECORDS SUMMARY | 2025-04-01 10:24 | XMS_ITS | Encounter Summary ---
Author Organization [facility] Address [address] [place] [address] Care Team Providers Care Acid Polymerization Operator Name Role Phone Artie Perkins MD Primary Care Provider Encounter Details Date Type Department Care Team (Latest Contact Info) Description 02/24/2005 Outpatient Historical [facility] Ildefonso Cameron MD [address] [place] [id number] SWELLING OF LIMB (Primary Dx) Social History Tobacco Use Types Packs/Day Years Used Date Smoking Tobacco: Never Assessed Comments Unknown Sex and Gender Information Value Date Recorded Sex Assigned at Not on file Legal Sex Female 3:35 AM FABRIC INSPECTOR Gender Identity Not on file Sexual Orientation Not on file documented as of this encounter Plan of Treatment Not on file documented as of this encounter Visit Diagnoses Diagnosis Swelling of limb- Primary documented in this encounter Additional Health Concerns Infection Onset Date Last Indicated Resolved Time R/O Respiratory 12/22/2023 12/22/2023 12/22/2023 1 :57 PM FABRIC INSPECTOR documented as of this encounter Care Teams Acid Polymerization Operator Relationship Specialty Start Date End Date Artie Perkins MD [address] [place] [address] PCP - General Internal Medicine 12/13/23 documented as of this encounter
--- OUTSIDE RECORDS SUMMARY | 2025-04-01 10:24 | XMS_ITS | Clinical Summary ---
Author Organization [facility] Address [address] [place] [address] Phone Care Team Providers Care Cable Tool Operator Name Role Phone Artie Perkins MD Primary Care Provider Allergies Active Allergy Reactions Criticality Noted Date Comments Acetaminophen-Guaifene sin Angioedema High 12/25/2017 Adalimumab Itching Low 03/29/2017 Amlodipine Angioedema High 08/29/2016 Apremilast Diarrhea Low 03/29/2017 Atorvastatin Unknown 03/25/2011 Banana Itching Medium 01/05/2012 Banana Extract Itching Low 06/21/2018 Cefepime Other (See Comments) High 12/19/2023 Non-convulsive status epilepticus in 11/2023. Had tolerate cefepime in past. Erythromycin Angioedema High 12/22/2015 Latex Unknown 07/04/2010 Lisinopril Angioedema High 07/20/2016 Peanut Unknown 10/02/2011 Throat swelling Penicillins Unknown 07/04/2010 Prednisone Rash High 10/31/2016 Sulfa (Sulfonamide Antibiotics) Itching Low 12/25/2017 Tetracycline Shortness of Breath/Wheezing High 02/19/2014 Ustekinumab Angioedema High 03/29/2017 Medications hydrocortisone (HYTONE) 2.5 % Ointment Apply to affected area 1 time daily as needed. Active triamcinolone acetonide (KENALOG) 0.1 % Ointment Apply to affected area 1 time daily as needed. Active apixaban (ELIQUIS) 5 mg tablet Take 5 mg by mouth 2 times daily. 3 Active dicyclomine (BENTYL) 10 mg capsule Take 1 Capsule (10 mg) by mouth 4 times daily as needed for Other (See Comment) (stomach cramps). 4 Active cholecalciferol (VITAMIN D3) 400 unit Tablet Take 2 Tablets (800 Units) by mouth daily. 4 Active esomeprazole magnesium (NexIUM) 40 mg suspension delayed release Take 1 Packet (40 mg) by mouth daily before breakfast. Mix with 15 mL of water. Wait 3 min. Stir and give to patient. 4 Active ferrous sulfate (FEOSOL) 300 mg (60 mg iron)/5 mL solution 5 mL (300 mg) by NG Tube route daily. 4 Active hydrocortisone acetate (ANUSOL-HC) 25 mg Suppository Insert 1 Suppository (25 mg) by rectum every 12 hours. 4 Active hydrophilic wound dressing (TRIAD) Apply to affected area 3 times daily. 4 Active lacosamide (VIMPAT) 100 mg tablet 1 Tablet (100 mg) by NG Tube route 2 times daily. 4 Active levETIRAcetam (KEPPRA) 500 mg/5 mL (5 mL) Solution 5 mL (500 mg) by NG Tube route 2 times daily. 4 Active Lidocaine 4 % Adhesive Patch, Medicated To knee, other area of pain 4 Active megestroL (MEGACE) 400 mg/10 mL (10 mL) Suspension suspension 400 mg by NG Tube route daily. 4 Active metoprolol tartrate (LOPRESSOR) 25 mg tablet 0.5 Tablets (12.5 mg) by G Tube route 2 times daily. 4 Active modafiniL (PROVIGIL) 200 mg TabletIndication s:Delirium 1 Tablet (200 mg) by G Tube route daily. 4 Active oxyCODONE (ROXICODONE) 5 mg tabletIndication s:Delirium 1 Tablet (5 mg) by G Tube route every 3 hours as needed for Pain, Break-Through. Max Daily Amount: 40 mg 4 Active polyethylene glycol (MIRALAX) 17 gram Powder in Packet 1 Packet (17 Grams) by G Tube route daily. 4 Active sennosides-docus ate sodium (SENNA-S) 8.6-50 mg tablet 1 Tablet by G Tube route 2 times daily. 4 Active naloxone (NARCAN) 4 mg/spray [place], Non-Aerosol EMERGENCY USE ONLY: Administer 1 spray (4 mg) in one nostril one time. May repeat in alternating nostrils every 2-3 min until responsive or EMS arrives. 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 Acute metabolic encephalopathy 12/18/2023 Delirium 12/18/2023 Acute pain of right knee 12/14/2023 Hyponatremia 12/14/2023 Debility 12/14/2023 Rheumatoid arthritis with positive rheumatoid fa ctor 12/14/2023 Essential hypertension 12/14/2023 History of DVT (deep vein thrombosis) 12/14/2023 Chronic anticoagulation 12/14/2023 Iron deficiency anemia 12/14/2023 Gastroesophageal reflux disease 12/14/2023 Leukocytosis (leucocytosis) 06/09/2023 Normocytic anemia 06/09/2023 HTN (hypertension), benign 06/09/2023 Personal history of DVT (deep vein thrombosis) 0 06/09/2023 Rheumatoid arthritis involvi ng multiple sites with positive rheumatoid factor 02/28/2023 Resolved Problems Problem Noted Date Diagnosed Date Resolved Date Cholecystitis 01/05/2024 01/26/2024 Breakthrough seizure 01/01/2024 024 Pyogenic arthritis of right knee joint 12/30/2023 01/26/2024 Abnormal EEG 12/20/2023 01/26/2024 Generalized nonconvulsive seizure 12/20/2023 01/26/2024 Effusion of right knee 06/09/202301/25 Septic arthritis 06/09/2023 12/25/2023 Encounters Date Type Department Care Team Description 01/29/2025 External Device Data [facility] ABSTRACTION Provider, Abstract 01/28/2025 External Device Data [facility] ABSTRACTION Provider, Abstract from Last 3 Months Social History Tobacco Use Types Packs/Day Years Used Date Smoking Tobacco: Never Smokeless Tobacco: Never Alcohol Use Standard Drinks/Week Comments Never 0 (1 standard drink = 0.6 oz pur e alcohol) Feeling Safe Answer Date Recorded Are you in a relationship wi th someone who hurts you emotionally and/or physically? No 01/05/2024 Food Insecurity Answer Date Recorded Social/Environmental Concerns No concerns Transportation Needs Answer Date Record ed Social/Environmental Concerns No concerns Housing Stability Answer Date Recorded Social/Environmental Concerns No concerns Utility Needs Answer Date Recorded Social/Environmental Concerns No concerns Comments No Sex and Gender Information Value Date Recorded Sex Assigned at Not on file Legal Sex Female 3:35 AM CREATIVE ART DIRECTOR Gender Identity Not on file Sexual Orientation Not on file Last Filed Vital Signs Vital Sign Reading Time Taken Comments Blood Pressure 123/60 01/26/2024 8:25 AM CREATIVE ART DIRECTOR Pulse 78 01/26/2024 8:25 AM CREATIVE ART DIRECTOR Temperature 37 C (98.6 F) 01/26/2024 8:25 AM CREATIVE ART DIRECTOR Respiratory Rate 18 01/26/2024 8:25 AM CREATIVE ART DIRECTOR Oxygen Saturation 99% 01/26/2024 8:25 AM CREATIVE ART DIRECTOR Inhaled Oxygen Concentration - - Weight 64.5 kg (142 lb 1.6 oz) 01/25/2024 6:03 P M CREATIVE ART DIRECTOR Height 165.1 cm (5' 5 ) 12/13/2023 2:49 PM CREATIVE ART DIRECTOR Body Mass Index 23.65 12/13/2023 2:49 PM CREATIVE ART DIRECTOR Plan of Treatment Health Maintenance Due Date Last Done Comments FIT-DNA Q 3 years 1995 FIT/FOBT Q 1 year 1995 Flex Sig/CT Colonography Q 5 years 1995 RSV VACCINE (60+ or ) (1 - Risk 60-74 years 1-dose series) 2010 OSTEOPOROSIS SCREENING 2015 ZOSTER VACCINE (2 of 3) 12/28/2015 11/02/2015 BREAST CANCER SCREENING 05/12/2023 05/12/20 22, 05/12/2022, 05/13/2020, Additional history exists INFLUENZA VACCINE (#1) 2024 2, 09/28/2021, 08/17/2020, Additional history exists COVID-19 Vaccine (6 2023-2 5 season) 2024 09/13/2022, 05/27/2022, 07/22/2021, Additional history exists COLORECTAL SCREENING 05/02/2027 05/02/2022, 05/02/2022, 03/18/2016, Additional history exists Colorectal Cancer Screening 05/02/2027 DTAP/TDAP/TD VACCINES (4 - T d or Tdap) 07/31/2030 07/31/2020, 08/27/2019, 06/08/2017 PNEUMOCOCCAL VACCINE 50+ YEARS Completed 1 , 08/06/2019, 09/02/2016 Medical Devices Implanted Type Area Peanut Blancher Device Identifier Shelf Expiration Date Model / Serial / Lot Sealant Hemaflex [id number] - [id number] Implanted:Qty : 1 on 01/05/2024 by Bello Doan DO at [facility] Biological N/A: Abdomen BARD DAVOL 04/16/2026 [id number] / / [id number] Clip Hemolok Lrg [id number] - Csc - [id number] Implanted:Qty : 1 on 01/05/2024 by Bello Doan DO at [facility] Clip N/A: Abdomen TELEFLEX- WECK CLOSURE SYS 09/26/2028 [id number] / / [id number] Port Powerport Clearvue 8fr Mri [id number] Implanted:Qty : 1 on 04/04/2022 by Lino Agarwal MD Port CR BARD- BUB[employer]ASC [employer] 04/19/2023 [id number] / / [id number] Port Explanted:Qty : 1 on 04/04/2022 by Lino Agarwal MD Procedures Procedure Name Priority Date/Time Associated Diagnosis Comments MAMMO 3D MICHAEL SCREEN BILAT W OR WO CAD Routine 05/12/2022 2:21 PM CDT Visit for screening mammogram COLONOSCOPY REPORT 05/02/2022 12 :15 PM CDT from Last 3 Months or Most Recently Relevant to Health Maintenance Results * MAMMO SCRN BILAT 3D MICHAEL W OR WO CAD (05/12/2022 2:21 PM CDT) Anatomical Region Laterality Modality Breast Bilateral Mammography 05/12/2022 2:23 PM CDT Narrative 05/12/2022 3:31 PM CDT MAMMOGRAMS SCREENING BILATERAL WITH CAD CORRELATION DATE: 05/12/2022 2:21 PM PRIOR: May 13, 2020. HISTORY: Screening. TECHNIQUE: Bilateral digital craniocaudad (CC) and mediolateral oblique (MLO) views. 3D Tomosynthesis. CAD. DENSITY: Heterogeneously dense. FINDINGS: No suspicious mass or microcalcification or architectural distortion. ASSESSMENT: Negative, BI-RADS 1. RECOMMENDATIONS: Annual screening. The above findings should be correlated with physical examination. A relatively nonspecific study should not preclude additional evaluation if suspicious findings are present clinically. An [employer] certified facility. DICTATION LOCATION: [facility] Procedure Note Ildefonso Nunez MD - 05/12/2022 MAMMOGRAMS SCREENING BILATERAL WITH CAD CORRELATION DATE: 05/12/2022 2:21 PM PRIOR: May 13, 2020. HISTORY: Screening. TECHNIQUE: Bilateral digital craniocaudad (CC) and mediolateral oblique (MLO) views. 3D Tomosynthesis. CAD. DENSITY: Heterogeneously dense. FINDINGS: No suspicious mass or microcalcification or architectural distortion. ASSESSMENT: Negative, BI-RADS 1. RECOMMENDATIONS: Annual screening. The above findings should be correlated with physical examination. A relatively nonspecific study should not preclude additional evaluation if suspicious findings are present clinically. An [employer] certified facility. DICTATION LOCATION: [facility] us Saul Powers MD MAMMO ORDERABLES Final Result * COLONOSCOPY REPORT (05/02/2022 12:15 PM CDT) Narrative Procedure Note Santino Goldman MD - 05/02/2022 12:15 PM CDT [facility] Endoscopy Patient Name: Pantera Stock Procedure Date: 05/02/2022 Date of : 1950 Attending MD: Santino Goldman MD Procedure: Colonoscopy Indications: High risk colon cancer surveillance: Personal history of colonic polyps Providers: Santino Goldman MD Referring MD: Nabor Valle MD Medicines: Monitored Anesthesia Care Complications: No immediate complications. Procedure: Informed consent was obtained for the procedure, including moderate sedation after risks were discussed. Based on the pre-procedure assessment, including review of the patient's medical history, medications, allergies, and review of systems, the patient was deemed to be an appropriate candidate for sedation. A timeout was performed. Continuous ECG monitoring, pulse oximetry, blood pressure monitoring, and direct observation were performed. The Colonoscope was introduced through the anus and advanced to the cecum, identified by appendiceal orifice and ileocecal valve. The colonoscopy was performed without difficulty. The patient tolerated the procedure well. The quality of the bowel preparation was evaluated using the BBPS (Madison Bowel Preparation Scale) with scores of: Right Colon = 3, Transverse Colon = 3 and Left Colon = 3 (entire mucosa seen well with no residual staining, small fragments of stool or opaque liquid). The total BBPS score equals 9. The quality of the bowel preparation was evaluated using the BBPS (Madison Bowel Preparation Scale) with scores of: Right Colon = 3, Transverse Colon = 3 and Left Colon = 3 (entire mucosa seen well with no residual staining, small fragments of stool or opaque liquid). The total BBPS score equals 9. Findings: The perianal and digital rectal examinations were normal. Multiple small-mouthed diverticula were found in the sigmoid colon. Non-bleeding internal hemorrhoids were found during retroflexion. The hemorrhoids were large. Impression: - Diverticulosis in the sigmoid colon. - Non-bleeding internal hemorrhoids. - No specimens collected. Recommendation: - Repeat colonoscopy in 5-10 years for screening purposes. - Use fiber, for example Citrucel, Fibercon, Konsyl or Metamucil. Procedure Code(s): --- Professional --- G0105, Colorectal cancer screening; colonoscopy on individual at high risk CPT copyright 2020 [employer]. All rights reserved. The codes documented in this report are preliminary and upon balance bridge assembler review may be revised to meet current compliance requirements. Santino Goldman MD 05/02/2022 12:15:08 PM This report has been signed electronically. Number of Addenda: [id number] [place] [address] Santino Goldman MD GI PROCEDURE ORDERABLES Final Re sult from Last 3 Months or Most Recently Relevant to [place] [address] [facility] [employer] [facility] [place] [id number] [place] [address] RX [employer] RX Member Subscriber Plan / Payer (Ef fective 2016-Present) Name:Pantera Stock Relation to Subscriber:Self Name:Pantera Stock Payer ID:Not on file Group ID:[id number] Type:RX Medicare Part D Address: [place] [employer] [place] [address] [facility] [employer] [facility] [id number] FOR LIFE Advance Directives For more information, please contact: [phone] * Full Code (Latest Code Status on File) Date Activated Date Inactivated Comments 01/05/2024 10:15 AM 01/26/2024 6:04 PM * Full Code Date Activated Date Inactivated Comments 12/14/2023 4:48 AM 01/05/2024 10:15 AM * Full Code Date Activated Date Inactivated Comments 06/10/2023 10:01 AM 06/16/2023 7:08 PM * Full Code Date Activated Date Inactivated Comments 06/09/2023 11:37 AM 06/10/2023 10:01 AM Care Teams Cable Tool Operator Relationship Specialty Start Date End Date Artie Perkins MD [address] [place] [id number] PCP - General Internal Medicine 12/13/23
--- OUTSIDE RECORDS SUMMARY | 2025-04-01 10:25 | XMS_ITS | Clinical Summary ---
Author Organization [facility] Address [address] [place] [address] Care Team Providers Care Broadcast News Producer Name Role Phone None, Provider MD Primary Care Provider Unavaila ble Allergies Active Allergy Reactions Criticality Noted Date Comments Azithromycin Rash Low 07/11/2023 Latex Hives 07/10/2023 Lisinopril Contact Dermatitis 07/10/2023 Penicillins Swelling,Other (see comment) 07/11/2023 Tongue swelling Ustekinumab Rash Low 07/11/2023 Sulfa Antibiotics Swelling 07/10/2023 Medications dilTIAZem ER 60 MG 12 hr capsule Take 1 capsule (60 mg total) by mouth 2 (two) times daily. Active dilTIAZem ER 240 MG 24 hr capsule Take 1 capsule (240 mg total) by mouth nightly. Active vancomycin in sodium chloride 0.9 % SOLN 500 mL Inject into the vein every 12 (twelve) hours. Active lidocaine (LIDODERM) 5 % Place 1 patch onto the skin daily. 3 Active metoprolol succinate ER (TOPROL-XL) 50 MG 24 hr tablet Take 1 tablet (50 mg total) by mouth daily. 3 Active omeprazole (PRILOSEC) 40 MG capsule Take 1 capsule (40 mg total) by mouth daily. 3 Active polyethylene glycol (GLYCOLAX) packet Take 240 mLs (17 g total) by mouth daily as needed. 3 Active senna-docusate (SENOKOT-S) 8.6-50 MG tablet Take 1 tablet by mouth every 12 (twelve) hours as needed. 3 Active triamcinolone (KENALOG) 0.1 % ointment Apply 1 Application. topically daily as needed. Active ceFEPIme (MAXIPIME) 2 GM/100ML IV SOLN Inject 100 mLs (2 g total) into the vein every 12 (twelve) hours. Active benadryl 20mL-maalox 20mL-sucralfate 4g-lidocaine viscous 20 mL (MAGIC MOUTHWASH WITH SUCRALFATE) suspension 5 mLs every 4 (four) hours as needed for Irritation. Active apixaban (ELIQUIS) 5 MG tablet Take 1 tablet (5 mg total) by mouth 2 (two) times daily. Active atorvastatin (LIPITOR) 10 MG tablet Take 1 tablet (10 mg total) by mouth nightly at bedtime. Active topiramate (TOPAMAX) 50 MG Tab Take 1 tablet (50 mg total) by mouth. TAKE 1 TABLET THE NIGHT BEFORE INFUSION AND 1 TABLET THE DAY OF INFUSION Active clotrimazole (MYCELEX) 10 MG angela Take 1 Angela (10 mg total) by mouth. Active doxepin (SINEQUAN) 10 MG capsule Take 1 capsule (10 mg total) by mouth nightly at bedtime. Active ondansetron (ZOFRAN) 4 MG tablet Take 1 tablet (4 mg total) by mouth every 8 (eight) hours as needed for Nausea. Active tacrolimus (PROTOPIC) 0.1 % ointment Apply 1 Application. topically 2 (two) times daily. Active Clobetasol Propionate 0.05 % Shampoo Active betamethasone dipropionate 0.05 % ointment Apply topically 2 (two) times daily. Active calcipotriene (DOVONOX) 0.005 % cream Apply 1 Application. topically 2 (two) times daily. Active Active Problems Problem Noted Date Diagnosed Date COVID-19 virus infection 07/11/2023 Social History Tobacco Use Types Packs/Day Years Used Date Smoking Tobacco: Never Smokeless Tobacco: Never Tobacco Cessation:Counseling Given: Not Answered Alcohol Use Standard Drinks/Week Comments Not Currently 0 (1 standard drink = 0.6 oz pur e alcohol) Humiliation, Afraid, Rape, and Kick questionnair e Answer Date Recorded Within the last year, have y ou been afraid of your partner or ex-partner? No 07/11/2023 Within the last year, have y ou been humiliated or emotionally abused in other ways by your partner or ex-partner? No Within the last year, have y ou been kicked, hit, slapped, or otherwise physically hurt by your partner or ex-partner? No 07/11/2023 Within the last year, have y ou been raped or forced to have any kind of sexual activity by your partner or ex-partner? No 07/11/2023 Overall Financial Resource Strain (CARDIA) Answe r Date Recorded How hard is it for you to pa y for the very basics like food, housing, medical care, and heating? Not hard at all 07/11/2023 Hunger Vital Sign Answer Date Recorded Within the past 12 months, y ou worried that your food would run out before you got the money to buy more. Never true 07/11/20 23 Within the past 12 months, t he food you bought just didn't last and you didn't have money to get more. Never true 07/11/2023 PRAPARE - Transportation Answer Date Re corded In the past 12 months, has l ack of transportation kept you from medical appointments or from getting medications? No 06/21 In the past 12 months, has l ack of transportation kept you from meetings, work, or from getting things needed for daily living? No 07/11/2023 Housing Stability Vital Sign Answer Kenneth e Recorded In the last 12 months, was t here a time when you were not able to pay the mortgage or rent on time? No 07/11/2023 In the last 12 months, how many places have you lived? 1 07/11/2023 In the last 12 months, was t here a time when you did not have a steady place to sleep or slept in a intermediate (including now)? No 07/11/2023 Comments No Sex and Gender Information Value Date Recorded Sex Assigned at Not on file Legal Sex Female 10:31 AM CDT Gender Identity Not on file Sexual Orientation Not on file Last Filed Vital Signs Vital Sign Reading Time Taken Comments Blood Pressure 166/84 10/10/2024 6:00 PM DICTAPHONE TECHNICIAN Pulse 73 10/10/2024 6:26 PM DICTAPHONE TECHNICIAN Temperature 36.3 C (97.4 F) 10/10/2024 3:57 PM DICTAPHONE TECHNICIAN Respiratory Rate 18 10/10/2024 6:26 PM DICTAPHONE TECHNICIAN Oxygen Saturation 100% 10/10/2024 6:26 PM DICTAPHONE TECHNICIAN Inhaled Oxygen Concentration - - Weight 56 kg (123 lb 7.3 oz) 10/10/2024 3:57 PM DICTAPHONE TECHNICIAN Height 165.1 cm (5' 5 ) 10/10/2024 3:57 PM DICTAPHONE TECHNICIAN Body Mass Index 20.54 10/10/2024 3:57 PM DICTAPHONE TECHNICIAN Plan of Treatment Health Maintenance Due Date Last Done Comments Colorectal Cancer Screening Colonoscopy (10 Years) 1950 RSV Immunization or 60+ Years (1 - Risk 60-74 years 1-dose series) 2010 Annual Medicare Wellness Visit 2015 Dexa Scan (General) 2015 Zoster Vaccines (1 of 2) 12/28/2015 11/02/2015 Mammogram Screening 05/12/2024 05/12/2022, 0 COVID-19 Vaccine (7 - Mixed Product risk season) 2025 08/13/2024, 09/13/2022, 05/27/2022, Additional history exists DTaP, Tdap and Td Vaccines (5 - Td or Tdap) 07/31/2030 07/31/2020, 08/27/2019, 08/27/2019, Additional history exists Pneumococcal Vaccine: 50+ Years Completed 08/28/2019, 08/06/2019, 09/02/2016 Hepatitis C Completed 07/31/2021 Meningococcal B Vaccine Aged Out No l onger eligible based on patient's age to complete this topic Meningococcal Vaccine Aged Out No layne pattie eligible based on patient's age to complete this topic RSV Immunizations Under 20 Months Aged Out No longer eligible based on patient's age to complete this topic Goals Goal Patient Goal Type Associated Problems Recent Progress Patient-Stated? Author Patient will return to prior living situation and remain independent in ADLs upon discharge from hospital Lifestyle No Karlie Gamez, CNC MAINTENANCE [place] [address] [facility] Advance Directives * Full Code (Latest Code Status on File) Date Activated Date Inactivated Comments 07/11/2023 1:54 AM 07/12/2023 3:07 PM Care Teams Broadcast News Producer Relationship Specialty Start Date End Date None, Provider, PCP - General UNKNOWN PHYSICIAN SPECIALTY 07/10/23
--- OUTSIDE RECORDS SUMMARY | 2025-04-01 10:25 | XMS_ITS | Encounter Summary ---
Author Organization [facility] Address [address] [place] [address] Care Team Providers Care Occupational Medicine Specialist Name Role Phone Artie Perkins MD Primary Care Provider Reason for Visit * Reason Onset Date Comments Possible R knee septic arthr itis, staple removal evaluation 01/13/2024 LEFT VOICEMAIL ON SMICS PA CRYS Encounter Details Date Type Department Care Team (Late st Contact Info) Description 01/13/2024 Telephone [facility] Admitting [address] [place] [address] [place] [address] [place] [address] Possible R knee septic arthritis, staple removal evaluation (LEFT VOICEMAIL ON SMICS PAGER) Social History Tobacco Use Types Packs/Day Years [...] on file Legal Sex Female 3:35 AM 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
--- NOTE | 2025-04-01 11:44 | ECG_ITS ---
Test Date: 2025-04-01 13:32:00 Measurements Intervals [place] Rate: 71 P: 39 IA: 168 QRS: 13 QRSD: 92 T: 37 QT: 397 QTc: 432 Interpretive Statements SINUS RHYTHM Compared to ECG 04/30/2024 04:23:25 No significant changes Electronically Signed On 04-01-2025 15:08:06 CDT by Pamlela Collado M.D.
--- OUTSIDE RECORDS SUMMARY | 2025-04-01 11:48 | XMS_ITS | Clinical Summary ---
Author Organization [facility] Address [address] [place] [address] Phone Care Team Providers Care Personal Property Appraiser Name Role Phone Artie Perkins MD Primary [...] daily. 4 Active naloxone (NARCAN) 4 mg/spray [place], Non-Aerosol EMERGENCY USE ONLY: Administer 1 spray [...] on file Legal Sex Female 3:35 AM GRAIN PROCESSOR Gender Identity Not on file Sexual Orientation Not on file Last Filed Vital Signs Vital Sign Reading Time Taken Comments Blood Pressure 123/60 01/26/2024 8:25 AM GRAIN PROCESSOR Pulse 78 01/26/2024 8:25 AM GRAIN PROCESSOR Temperature 37 C (98.6 F) 01/26/2024 8:25 AM GRAIN PROCESSOR Respiratory Rate 18 01/26/2024 8:25 AM GRAIN PROCESSOR Oxygen Saturation 99% 01/26/2024 8:25 AM GRAIN PROCESSOR Inhaled Oxygen Concentration - - Weight 64.5 kg (142 lb 1.6 oz) 01/25/2024 6:03 P M GRAIN PROCESSOR Height 165.1 cm (5' 5 ) 12/13/2023 2:49 PM GRAIN PROCESSOR Body Mass Index 23.65 12/13/2023 2:49 PM GRAIN PROCESSOR Plan of Treatment Health Maintenance Due Date [...] 08/06/2019, 09/02/2016 Medical Devices Implanted Type Area Vat Skimmer Device Identifier Shelf Expiration Date Model / Serial / Lot Sealant Hemaflex [id number] - [id number] Implanted:Qty : 1 on 01/05/2024 by Bello Doan DO at [facility] Biological N/A: Abdomen BARD DAVOL 04/16/2026 [id number] / / [id number] Clip Hemolok Lrg [id number] - Csc - [id number] Implanted:Qty : 1 on 01/05/2024 by Bello Doan DO at [facility] Clip N/A: Abdomen TELEFLEX- WECK CLOSURE SYS 09/26/2028 [id number] / / [id number] Port Powerport Clearvue 8fr Mri [id number] Implanted:Qty : 1 on 04/04/2022 by Lino Agarwal MD Port CR BARD- [employer] 04/19/2023 [id number] / / [id number] Port Explanted:Qty : 1 on 04/04/2022 by [...] if suspicious findings are present clinically. An [employer] certified facility. DICTATION LOCATION: [facility] Procedure Note Ildefonso Nunez MD - 05/12/2022 [...] if suspicious findings are present clinically. An [employer] certified facility. DICTATION LOCATION: [facility] us Saul Powers MD MAMMO ORDERABLES Final Result * COLONOSCOPY REPORT (05/02/2022 12:15 PM CDT) Narrative Procedure Note Santino Goldman MD - 05/02/2022 12:15 PM CDT [facility] Endoscopy Patient Name: Pantera Stock Procedure [...] bowel preparation was evaluated using the BBPS (Tupman Bowel Preparation Scale) with scores of: Right Colon = 3, Transverse Colon = 3 and Left Colon = 3 (entire mucosa seen well with no residual staining, small fragments of stool or opaque liquid). The total BBPS score equals 9. The quality of the bowel preparation was evaluated using the BBPS (Tupman Bowel Preparation Scale) with scores of: Right [...] individual at high risk CPT copyright 2020 [employer]. All rights reserved. The codes documented in this report are preliminary and upon clinical dietician review may be revised to meet current compliance requirements. Santino Goldman MD 05/02/2022 12:15:08 PM This report has been signed electronically. Number of Addenda: [id number] [place] [address] Santino Goldman MD GI PROCEDURE ORDERABLES Final Re sult from Last 3 Months or Most Recently Relevant to [place] [address] [facility] [email or web address] [facility] [place] [id number] [place] [address] RX [employer] RX Member Subscriber Plan / Payer (Ef fective 2016-Present) Name:Pantera Stock Relation to Subscriber:Self Name:Pantera Stock Payer ID:Not on file Group ID:[id number] Type:RX Medicare Part D Address: [place] [place] [place] [address] [facility] [employer] [facility] [id number] FOR LIFE Advance Directives For more information, please contact: [phone] * Full Code (Latest Code Status on File) Date Activated Date Inactivated Comments 01/05/2024 10:15 AM 01/26/2024 6:04 PM * Full Code Date Activated Date Inactivated Comments 12/14/2023 4:48 AM 01/05/2024 10:15 AM * Full Code Date Activated Date Inactivated Comments 06/10/2023 10:01 AM 06/16/2023 7:08 PM * Full Code Date Activated Date Inactivated Comments 06/09/2023 11:37 AM 06/10/2023 10:01 AM Care Teams Personal Property Appraiser Relationship Specialty Start Date End Date Artie Perkins MD [address] [place] [phone] PCP - General Internal Medicine 12/13/23
--- OUTSIDE RECORDS SUMMARY | 2025-04-01 11:48 | XMS_ITS | Encounter Summary ---
Author Organization [employer] Address [address] [place] [address] Care Team Providers Care Marine Consultant Name Role Phone Artie Perkins MD Primary Care Provider Encounter Details Date Type Department Care Team (Late st Contact Info) Description 08/10/1998 Outpatient Historical [facility] María Elena Ch Social History Tobacco Use Types Packs/Day Years Used Date Smoking Tobacco: Never Assessed Comments Unknown Sex and Gender Information Value Date Recorded Sex Assigned at Not on file Legal Sex Female 3:35 AM SMALL PRODUCTS ASSEMBLER Gender Identity Not on file Sexual Orientation Not on file documented as of this encounter Plan of Treatment Not on file documented as of this encounter Visit Diagnoses Not on filedocumented in this encounter Additional Health Concerns Infection Onset Date Last Indicated Resolved Time R/O Respiratory 12/22/2023 12/22/2023 12/22/2023 1 :57 PM SMALL PRODUCTS ASSEMBLER documented as of this encounter Care Teams Marine Consultant Relationship Specialty Start Date End Date Artie Perkins MD [address] [place] [address] PCP - General Internal Medicine 12/13/23 documented as of this encounter
--- OUTSIDE RECORDS SUMMARY | 2025-04-01 11:48 | XMS_ITS | Encounter Summary ---
Author Organization [employer] Address [address] [place] [address] Care Team Providers Care Coremaker Experimental Name Role Phone Artie Perkins MD Primary Care Provider Encounter Details Date Type Department Care Team (Late st Contact Info) Description 12/31/1998 Outpatient Historical [facility] María Elena Ch Social History Tobacco Use Types Packs/Day Years Used Date Smoking Tobacco: Never Assessed Comments Unknown Sex and Gender Information Value Date Recorded Sex Assigned at Not on file Legal Sex Female 3:35 AM WELDING ROD COATER Gender Identity Not on file Sexual Orientation Not on file documented as of this encounter Plan of Treatment Not on file documented as of this encounter Visit Diagnoses Not on filedocumented in this encounter Additional Health Concerns Infection Onset Date Last Indicated Resolved Time R/O Respiratory 12/22/2023 12/22/2023 12/22/2023 1 :57 PM WELDING ROD COATER documented as of this encounter Care Teams Coremaker Experimental Relationship Specialty Start Date End Date Artie Perkins MD [address] [place] [address] PCP - General Internal Medicine 12/13/23 documented as of this encounter
--- OUTSIDE RECORDS SUMMARY | 2025-04-01 11:48 | XMS_ITS | Encounter Summary ---
Author Organization [employer] Address [address] [place] [address] Care Team Providers Care Mail Opener Name Role Phone Artie Perkins MD Primary Care Provider Encounter Details Date Type Department Care Team (Latest Contact Info) Description 02/18/2005 Outpatient Historical [facility] Ildefonso Cameron MD [address] [place] [phone] [facility]ENISC[facility] (Primary Dx) Social History Tobacco Use Types Packs/Day Years Used Date Smoking Tobacco: Never Assessed Comments Unknown Sex and Gender Information Value Date Recorded Sex Assigned at Not on file Legal Sex Female 3:35 AM REDUCING MACHINE OPERATOR Gender Identity Not on file Sexual Orientation Not on file documented as of this encounter Plan of Treatment Not on file documented as of this encounter Procedures Procedure Name Priority Date/Time Associated Diagnosis Comments HEMOGLOBIN AND HEMATOCRIT Routine 02/17/2005 3:45 PM REDUCING MACHINE OPERATOR BASIC METABOLIC PANEL Routine 02/17/2005 3:45 PM REDUCING MACHINE OPERATOR documented in this encounter Results * HEMOGLOBIN AND HEMATOCRIT (02/17/2005 3:45 PM REDUCING MACHINE OPERATOR) HEMOGLOBIN 12.2 11.8 - 14.8 g/dL INTERFACE SYSTEM HEMATOCRIT 38.1 35.5 - 44.0 % INTERFACE SYSTEM 02/17/2005 3:45 PM REDUCING MACHINE OPERATOR us Ildefonso Cameron MD HEMATOLOGY ORDERABLES Final Re sult Performing Organization Address [facility] de Phone Number INTERFACE SYSTEM Refer to clinic/hospital department * (ABNORMAL) BASIC METABOLIC PANEL (02/17/2005 3:45 PM REDUCING MACHINE OPERATOR) GLUCOSE 96 65 - 109 mg/dL INTERFACE [...] 30 mmol/L INTERFACE SYSTEM 02/17/2005 3:45 PM REDUCING MACHINE OPERATOR us Ildefonso Cameron MD CHEMISTRY ORDERABLES Final Res ult Performing Organization Address [facility] Phone Number INTERFACE SYSTEM Refer to clinic/hospital department documented in this encounter Visit Diagnoses Diagnosis Derangement of posterior horn of medial meniscus- Primary documented in this encounter Additional Health Concerns Infection Onset Date Last Indicated Resolved Time R/O Respiratory 12/22/2023 12/22/2023 12/22/2023 1 :57 PM REDUCING MACHINE OPERATOR documented as of this encounter Care Teams Mail Opener Relationship Specialty Start Date End Date Artie Perkins MD [address] [place] [address] PCP - General Internal Medicine 12/13/23 documented as of this encounter
--- OUTSIDE RECORDS SUMMARY | 2025-04-01 11:48 | XMS_ITS | Continuity of Care Document ---
Author Name [facility] Organization [facility] Care Team Providers Care Continuity Reader Name Role Phone [facility] Unavailable Unavailable Problems Combined list of problems from Department of Defense and Veterans Affairs facilities. It does not include entries that were removed or entered in error. Problem Status Onset Date Problem Type Date of Resolution Comments Source Diagnosis: ICD-10-CM Z63.6 Dependent relative needing care at home Active Diagnosis [facility] Medications Combined list of outpatient medications from Department of [facility] facilities.Medications provided include 1) outpatient medications from [...] PRIMARYCARE , 60 ea. BOTTLE Cancele d [id number] : 2023 0 Pharmac y Data Transac tion Service Facilit y IBUPROFEN (ibuprofen) , 400 MG, TABLET, ORAL, STRIDES PHARMA, 500 ea. BOTTLE Active [id number] 2023 30 Pharmac y Data Transac tion Service Facilit y METOPROLOL SUCCINATE (metoprolol succinate), 50 MG, TAB ER 24H, ORAL, ACTAVIS/TEV A, 100 ea. BOTTLE Cancele d [id number] : 2023 0 Pharmac y Data Transac tion Service Facilit y PANTOPRAZOL E SODIUM (PANTOPRAZO LE SODIUM), 40 MG, TABLET DR, ORAL, MYLAN, 90 ea. BOTTLE Active [id number] 2023 30 Pharmac y Data Transac tion Service Facilit y Immunizations Combined list of available immunizations from the Department of Defense and Veterans Affairs facilities. Immunization Series Date Given Administered By Site Reaction Lot Number CVX Code Drug Grapple Crew Leader Status Comments Source COVID-19 (Bioenvision), MRNA, LNP-S, BIVALENT, PF, 30 MCG/0.3 ML DOSE 1 2021 300 complet ed HISTORICA L INFORMATI ON - FROM OTHER [facility], [facility] N INFLUENZA VACCINE, QUADRIVALENT, ADJUVANTED 5 2021 205 complet ed HISTORICA L INFORMATI ON - FROM OTHER [facility], [facility] N INFLUENZA VACCINE, QUADRIVALENT, ADJUVANTED 4 2020 205 complet ed HISTORICA L INFORMATI ON - FROM OTHER [facility], [facility] N INFLUENZA, RECOMBINANT, QUADRIVALENT, INJECTABLE, PRESERVATIVE FREE 3 2019 185 complet ed HISTORICA L INFORMATI ON - FROM OTHER [facility], [facility] N Tdap 2019 ALUL, () Not Given Tdap [facility] Hep A-Hep B 2019 ALUL, () Not Given Hep A-Hep B [facility] INFLUENZA, HIGH DOSE SEASONAL 2 2018 135 complet ed HISTORICA L INFORMATI ON - FROM OTHER [facility], [facility] N PNEUMOCOCCAL POLYSACCHARID E PPV23 2 2018 33 complet ed HISTORICA L INFORMATI ON - FROM OTHER [facility], [facility] N TDAP 1 2016 115 complet ed HISTORICA L INFORMATI ON - FROM OTHER [facility], [facility] N PNEUMOCOCCAL CONJUGATE PCV 13 1 2015 133 complet ed HISTORICA L INFORMATI ON - FROM OTHER [facility], [facility] N INFLUENZA, HIGH DOSE SEASONAL 1 2015 135 complet ed HISTORICA L INFORMATI ON - FROM OTHER [facility], [facility], [facility] N Encounters Combined list of: 1) Encounters from Department of Veterans Affairs facilities going backup to the last 18 months, not all VA inpatient encounters are included; 2) Encounters from the Department of Defense facilities going backup to 280 months. Location Location Details Encounter Type Encounter Number Reason For Visit Attending Provider ADM Date DC Date Status Disposition Source [facility] ASSMT/REAS SESSMENT [id number] Diagnos is: ICD-10- CM Z63.6 Depende nt relativ e needing care at home YOSEPH SHARMA KAELYNSONUCASSIUS [place] 10/20 [facility] Outpatient Encounter [id number] 10/25 [facility] ASSMT/REAS SESSMENT [id number] Diagnos is: ICD-10- CM Z63.6 Depende nt relativ e needing care at home THERESA PRICE CY L 10/30 [facility] Outpatient Encounter [id number] 01/03 [facility] Outpatient Encounter [id number] THERESA PRICE CY L 01/30 [facility] Procedures Combined list of: 1) Procedures from Department of [facility] Affairs facilities going back up to thelast 18 months, not all MD non-surgical procedures are included; 2) All procedures from the Department [facility] facilities. Procedure Procedure Type Code [...] of Defense and Veterans Affairs (VA).VA Functional [place] Measurement (FIM) Scale: 1 = Total Assistance (Subject = 0% +), 2 = Maximal Assistance (Subject = 25% +), 3 = Moderate Assistance (Subject = 50% +), 4 = Minimal Assistance (Subject = 75% +), 5 = Supervision, 6 = Modified [place] (Device), 7 = Complete [place] (Timely, Safely). Assessment Date/Time Source Assessment Type Assessment Skill Assessment Score Assessment Details No data available for this section
--- OUTSIDE RECORDS SUMMARY | 2025-04-01 11:48 | XMS_ITS | Encounter Summary ---
Author Organization [facility] Address [address] [place] [address] Care Team Providers Care Aviation Project Manager Name Role Phone Nabor Valle MD Primary Care Provider Chanelle Flood BINDER CASER-COMMERCIAL REAL ESTATE SALES MANAGER Unavailable [phone] Veronica Henderson BINDER CASER-COMMERCIAL REAL ESTATE SALES MANAGER Unavailable Rosa Dobson MD Unavailable [phone] Rosario Lundberg MD Unavailable Veronica Henedrson BINDER CASER-COMMERCIAL REAL ESTATE SALES MANAGER Primary Care Provider Veronica Henderson BINDER CASER-COMMERCIAL REAL ESTATE SALES MANAGER Unavailable Saul Powers MD Primary Care Provider Veronica Otero BINDER CASER-COMMERCIAL REAL ESTATE SALES MANAGER Unavailable [phone] Veronica Henderson BINDER CASER-COMMERCIAL REAL ESTATE SALES MANAGER Unavailable [phone] Saul Powers MD Unavailable Unavailable Shelby Nguyen [facility] Unavailable Shara Bello QUALITY ENGINEER Unavailable [phone] Saul Powers MD Unavailable Unavailable Christina Kirk RN Unavailable Smita Bolanos RN Unavailable Smita Bolanos RN Unavailable SalimaVeronica mann BINDER CASER-COMMERCIAL REAL ESTATE SALES MANAGER Unavailable [phone] Saul Powers MD Primary Care Provider Artie Zepeda MD Primary Care Provider [phone] Saul Powers MD Unavailable Unavailable Martin Hutchison JAYA Unavailable Saul Powers MD Unavailable Unavailable Corinne San BINDER CASER-COMMERCIAL REAL ESTATE SALES MANAGER Unavailable Artie Perkins MD Unavailable Encounter Details Date Type Department Care Team (Late st Contact Info) Description 09/02/2020 [facility] Outpatient Visit [facility] Medical [facility] - Family Medicine [address] [place] [address] [phone] Nabor Valle MD [address], [place] [phone] Social History Tobacco Use Types Packs/Day Years [...] on filedocumented in this encounter Care Teams Aviation Project Manager Relationship Specialty Start Date End Date Nabor Valle MD PCP - General Family Medicine 08/29/16 07/04/21 Chanelle Flood APRN-CNP [address] [place] [address] PCP - Attributed-[facility] 01/19/20 05/19/21 Veronica Henderson APRN-CNP [address] [place] [address] PCP - General Nurse Practitioner [facility] 07/05/21 01/06/22 Veronica Henderson APRN-CNP [address] [place] [address] PCP - Attributed-[facility] 05/20/21 11/04/21 Saul Powers MD [address] [employer] [employer] [address] [place] [address] PCP - General Family Medicine 01/07/22 11/15/23 Veronica Henderson APRN-CNP [address] [employer] [address] [place] [address] PCP - Attributed-[facility] 12/21/21 05/06/22 Veronica Henderson APRN-CNP [address] [employer] [place] [address] PCP - Attributed-[facility] 07/21/22 11/19/22 Saul Powers MD PCP - [facility]ributed[facility] 11/20/22 02/04/23 Saul Powers MD PCP - Attributed[facility] 04/20/23 06/19/23 Veronica Henderson APRN-COMMERCIAL REAL ESTATE SALES MANAGER [address] [place] [address] PCP - Attributed-[facility] 06/20/23 09/06/23 Saul Powers MD PCP - General Family Medicine 11/16/23 11/21/23 Artie Perkins MD [address] [place] [phone] PCP - General Internal Medicine 11/27/23 Saul Powers MD PCP - [facility] 01/19/24 02/08/24 Saul Powers MD PCP - Att[facility] 02/19/24 09/06/24 Artie Perkins MD [address] [place] [phone] PCP - Attributed[facility] 01/18/25 Veronica Henderson APRN-COMMERCIAL REAL ESTATE SALES MANAGER [address] [place] [address] Nurse Practitioner Family 06/10/21 Rosa Dobson MD [facility] [address] [address] Rheumatology 06/10/21 Rosario Lundberg MD [address] [address] Dermatology 06/10/21 Shelby Nguyen, [facility] Outpatient Prism Measurer Care Management 06/08/23 06/08/23 Shara Bello, QUALITY ENGINEER Outpatient Prism Measurer Care Management 06/08/23 06/22/23 Christina Kirk RN Post Acute Optometrist/Practice OwnerWool Sacker 06/22/23 06/26/23 Smita Bolanos, RN Optometrist/Practice OwnerWool Sacker 06/26/23 06/27/23 Smita Bolanos, RN Optometrist/Practice OwnerWool Sacker 07/05/23 08/14/23 Martin Hutchison, JAYA [address] [address] Care Coordination Specialist Care Management 02/27/24 04/12/24 Corinne San, BINDER CASER-COMMERCIAL REAL ESTATE SALES MANAGER [address] [place] [phone] Nurse Practitioner 05/15/24 documented as of this encounter
--- OUTSIDE RECORDS SUMMARY | 2025-04-01 11:48 | XMS_ITS | Encounter Summary ---
Author Organization [facility] Address [address] [place] [address] Care Team Providers Care Fire Information Officer Name Role Phone Nabor Valle MD Primary Care Provider Chanelle Flood OFFICE TECHNICIAN-STAPLE SIDE LASTER Unavailable [phone] Veronica Henderson OFFICE TECHNICIAN-STAPLE SIDE LASTER Unavailable Rosa Dobson MD Unavailable Rosario Lundberg MD Unavailable Veronica Henderson OFFICE TECHNICIAN-STAPLE SIDE LASTER Primary Care Provider Veronica Henderson OFFICE TECHNICIAN-STAPLE SIDE LASTER Unavailable [phone] Saul Powers MD Primary Care Provider Veronica Otero OFFICE TECHNICIAN-STAPLE SIDE LASTER Unavailable [phone] Veronica Henderson OFFICE TECHNICIAN-STAPLE SIDE LASTER Unavailable [phone] Saul Powers MD Unavailable Unavailable Shelby Nguyen [facility] Unavailable Shara Bello BRIDGE IRONWORKER Unavailable [phone] Saul Powers MD Unavailable Unavailable Christina Kirk RN Unavailable Smita Bolanos RN Unavailable Smita Bolanos RN Unavailable SalimaVeronica mann OFFICE TECHNICIAN-STAPLE SIDE LASTER Unavailable [phone] Saul Powers MD Primary Care Provider Artie Zepeda MD Primary Care Provider Saul Powers MD Unavailable Unavailable FosterMartin JAYA Unavailable [phone] Saul Powers MD Unavailable Unavailable Corinne San OFFICE TECHNICIAN-STAPLE SIDE LASTER Unavailable Artie Perkins MD Unavailable Encounter Details Date Type Department Care Team (Late st Contact Info) Description 07/24/[address] [facility] Outpatient Visit [facility] - Endocrinology [address] [facility] [address], [address] [place] [address] Rosa Dobson MD [address] [facility] [address] [place] [address] Social History Tobacco Use Types [...] on filedocumented in this encounter Care Teams Fire Information Officer Relationship Specialty Start Date End Date Nabor Valle MD PCP - General Family Medicine 08/29/16 07/04/21 Chanelle Flood APRN-VANESSA [address] [place] [address] PCP - Attributed-[facility] 01/19/20 05/19/21 Veronica Henderson APRN-STAPLE SIDE LASTER [address] [place] [address] PCP - General Nurse Practitioner Family 07/05/21 01/06/22 Veronica Henderson APRN-VANESSA [address] [place] [address] PCP - Attributed-[facility] 05/20/21 11/04/21 Saul Powers MD [address] [place] [address] PCP - General Family Medicine 01/07/22 11/15/23 Veronica Henderson APRN-STAPLE SIDE LASTER [address] [place] [address] PCP - Attributed-[facility] 12/21/21 05/06/22 Veronica Henderson APRN-STAPLE SIDE LASTER [address] [place] [address] PCP - [facility]ributed-[facility] 07/21/22 11/19/22 Saul Powers MD PCP - Attributed[facility] [place] 11/20/22 02/04/23 Saul Powers MD PCP - Attributed-[facility] [place] 04/20/23 06/19/23 Veronica Henderson OFFICE TECHNICIAN-STAPLE SIDE LASTER [address] [place] [address] PCP - Attributed[facility] [place] 06/20/23 09/06/23 Saul Powers MD PCP - General Family Medicine 11/16/23 11/21/23 Artie Perkins MD [address] [place] [id number] PCP - General Internal Medicine 11/27/23 Saul Powers MD PCP - Attributed-[facility] [place] 01/19/24 02/08/24 Saul Powers MD PCP - Attributed-[facility] P4 02/19/24 09/06/24 Artie Perkins MD [address] [place] [id number] PCP - Attributed-[facility] P4 01/18/25 Veronica Henderson OFFICE TECHNICIAN-STAPLE SIDE LASTER [address] [place], [place] [id number] Nurse Practitioner Family 06/10/21 Rosa Dobson MD [address] [address] Rheumatology 06/10/21 Rosario Lundberg MD [address] [address] Dermatology 06/10/21 Shelby Nguyen, [facility] Outpatient Collar Pointer Care Management 06/08/23 06/08/23 Shara Bello, BRIDGE IRONWORKER Outpatient Collar Pointer Care Management 06/08/23 06/22/23 Christina Kirk RN Post Acute Cuff StitcherMachine Cutter 06/22/23 06/26/23 Smita Bolanos, RN Cuff StitcherMachine Cutter 06/26/23 06/27/23 Smita Bolanos, RN Cuff StitcherMachine Cutter 07/05/23 08/14/23 Martin Hutchison, [place] [address] [facility] [address] [place] [address] Care Coordination Specialist Care Management 02/27/24 04/12/24 Corinne San, OFFICE TECHNICIAN-STAPLE SIDE LASTER [address] [place] [address] Nurse Practitioner 05/15/24 documented as of this encounter
--- OUTSIDE RECORDS SUMMARY | 2025-04-01 11:48 | XMS_ITS | Encounter Summary ---
Author Organization [facility] Address [address] [place] [address] Care Team Providers Care Bi Tester Name Role Phone Artie Perkins MD Primary Care Provider [phone] Encounter Details Date Type Department Care Team (Late st Contact Info) Description 02/17/2005 Outpatient Historical [facility] Support Serv. (Adt Cardiology-[facility]) [address] [place] [phone] Chad Greer Social History Tobacco Use Types Packs/Day Years Used Date Smoking Tobacco: Never Assessed Comments Unknown Sex and Gender Information Value Date Recorded Sex Assigned at Not on file Legal Sex Female 3:35 AM MARKETING COMMUNICATIONS ASSISTANT Gender Identity Not on file Sexual Orientation Not on file documented as of this encounter Plan of Treatment Not on file documented as of this encounter Visit Diagnoses Not on filedocumented in this encounter Additional Health Concerns Infection Onset Date Last Indicated Resolved Time R/O Respiratory 12/22/2023 12/22/2023 12/22/2023 1 :57 PM MARKETING COMMUNICATIONS ASSISTANT documented as of this encounter Care Teams Bi Tester Relationship Specialty Start Date End Date Artie Perkins MD [address] [place] [address] PCP - General Internal Medicine 12/13/23 documented as of this encounter
--- OUTSIDE RECORDS SUMMARY | 2025-04-01 11:48 | XMS_ITS | Continuity of Care Document ---
Author Organization [facility] Address [address] [place] [address] Phone Care Team Providers Care Surveying Teacher Name Role Phone Madi Wray MD Unavailable [...] by:Prasanth WILSON) Nucleated Cells, Synovial Fld 11:59:00 01406 cells/uL 0-200 H Final Performed by:Prasanth WILSON) [...] OFFICE/OUTPA TIENT VISIT EST [facility], [address], [address], [place] tel:[phone] [facility] Other infective (teno)synoviti s, right kneePyogenic arthritis of right knee joint, due to unspecified organismArthri tis due to other bacteria, right knee 4 Fissel Madi. [address] [facility] [place] [facility], [place], [place], [address]. tel:[phone] Referring Provider: Artie Guo, [address], [place], [address]. tel:[phone] [facility], [address] [facility], [place], [address], [place] tel:[phone] [facility] Pyogenic arthritis of right knee joint, due to unspecified organismEffusi on, right kneeOther infective (teno)synoviti s, right knee 4 Fissel Madi. [address] [facility] [place] [facility], [place], [place], [address]. tel:[phone] OFFICE/OUTPA TIENT VISIT EST [facility], [address] [facility] [address], [place], [address], [place] tel:[phone] [facility] Pain in right kneeBody mass index [BMI] 32.0-32.9, adultEffusion, right knee 4 Chas Hatfield. [address] [facility] [address], [place], [place], [address], [place]. tel:[phone] Referring Provider: Artie Guo, [address], [place], [address]. tel:[phone] OFFICE/OUTPA TIENT VISIT EST [facility], [address] [facility] [address], [place], [address], [place] tel:[phone] [facility] Pain in right kneeArthritis due to other bacteria, right kneePyogenic arthritis of right knee joint, due to unspecified organismHistor y of surgery 3 Radha Lobo. [address] [facility] [address], [place], [place], [address], [place]. tel:[phone] Referring Provider: Saul Powers, [address] [place], [address]. tel:[phone] [facility], [address] [facility] [address], [place], [address], [place] tel:[phone] [facility] Arthritis due to other bacteria, right knee 3 Radha Carrillohanael. [address], [place], [place], [address], [place]. tel:[phone] Referring Provider: Saul Powers, [address] [place], [address]. tel:[phone] [facility], [address] [address], [place], [address], [place] tel:[phone] [facility] Arthritis due to other bacteria, right knee 3 L'Hommedieu Tuscola. [address] [facility] [place] [facility], [place], [place], [address]. tel:[phone] [facility], [address] [facility] [address], [place], [address], [place] tel:[phone] [facility] Bacterial arthritis of right kneePyogenic arthritis of right knee joint, due to unspecified organism 3 Radha Lobo. [address], [place], [place], [address], [place]. tel:[phone] OFFICE/OUTPA TIENT VISIT EST [facility], [address] [facility] [address], [place], [address], [place] tel:[phone] [facility] Effusion, right kneeInternal derangement of right kneeChronic pain of right kneeOther chronic pain 3 L'Hommedieu [place]. [address] [facility] [place] [facility], [place], [place], [address]. tel:[phone] Referring Provider: Saul Powers, [address] [place], [address]. tel:[phone] OFFICE/OUTPA TIENT VISIT EST [facility], [address] [address] [facility] [address], [place], [address], [place] tel:[phone] [facility] Body mass index [BMI] 32.0-32.9, adultPain in right kneeEffusion, right kneeStatus post revision of total replacement of left kneePrimary osteoarthritis of right knee Erasto- 3 Chas Hatfield. [address] [facility] [address], [place], [place], [address], [place]. tel:[phone] Referring Provider: Saul Powers, [address], [place], [address]. tel:[phone] OFFICE/OUTPA TIENT VISIT EST [facility], [address] [address], [place], [address], [place] tel:[phone] [facility] Osteoarthritis of left glenohumeral jointOsteoarth ritis of right glenohumeral joint Jan- 3 iRtchie Valle. [address], [place], [place], [address]. tel:[phone] Referring Provider: Baron Ramirez, [address] [facility] [address], [place], [address] . tel:[phone] OFFICE/OUTPA TIENT VISIT EST [facility], [address] [facility] [address], [place], [address], [place] tel:[phone] [facility] CervicalgiaOth er spondylosis with radiculopathy, cervical region 3 James Draper. [address] [facility] [address], [place], [place], [address], [place]. tel:[phone] Referring Provider: Mayela Barrios, [address] [facility] [address], [place], [address]. tel:[phone] [facility], [address] [address] [facility] [address], [place], [address], [place] tel:[phone] [facility] Pain in left shoulderCervic algia Feb 3 No Information Referring Provider: Baron Ramirez, [address] [facility] [address], [place], [address] . tel:[phone] OFFICE/OUTPA TIENT VISIT EST [facility], [address] [facility] [address], [place], [address], [place] tel:[phone] [facility] Pain due to total left knee replacement, initial encounterPrese nce of left artificial knee jointBody mass index [BMI] 32.0-32.9, adult Feb-2 0 3 Lv Marion. [address], [place], [address]. tel:[phone] Referring Provider: Saul Powers, [address], [place], [address]. tel:[phone] OFFICE/OUTPA TIENT VISIT EST [facility], [address] [address] [facility] [address], [place], [address], [place] tel:[phone] [facility] CervicalgiaOth er spondylosis with radiculopathy, cervical regionChronic left shoulder painOther chronic painBody mass index [BMI] 32.0-32.9, adult Feb-2 0 3 James Draper. [address], [place], [place], [address], [place]. tel:[phone] Referring Provider: Mayela Barrios, [address] [facility] [address], [place], [address]. tel:[phone] OFFICE/OUTPA TIENT VISIT EST [facility], [address] [facility] [address], [place], [address], [place] tel:[phone] [facility] Neck painBody mass index [BMI] 32.0-32.9, adultOsteoarth ritis of right glenohumeral jointOsteoarth ritis of left glenohumeral joint Feb- 3 Kevin Pedro. [address], [place], [address]. tel:[phone] Referring Provider: Saul Powers, [address] [place], [address]. tel:[phone] OFFICE/OUTPA TIENT VISIT EST [facility], [address] [facility] [address] [address], [place], [address], [place] tel:[phone] [facility] Status post revision of total replacement of left kneeBody mass index [BMI] 32.0-32.9, adultStrain of left knee, initial encounter 3 L'Hommedieu [place]. [address] , [place], [place], [address]. tel:[phone] Referring Provider: Saul Powers, [address] [place], [address]. tel:[phone] OFFICE/OUTPA TIENT VISIT EST [facility], [address] [facility] [address] [address], [place], [address], [place] tel:[phone] [facility] Pain in left shoulderPain in right shoulderArthri tis of both glenohumeral jointsPrimary osteoarthritis , left shoulder 2 Ritchie Valle. [address] [facility] [address], [place], [place], [address]. tel:[phone] Referring Provider: Saul Powers, [address] [place], [address]. tel:[phone] OFFICE/OUTPA TIENT VISIT EST [facility], [address], [address], [place] tel:[phone] [facility] Pain in left kneeStatus post revision of total replacement of left kneeSprain of medial collateral ligament of left knee, initial encounter 2 L'Hommedieu [place]. [address] , [place], [place], [address]. tel:[phone] Referring Provider: Saul Powers, [address] [place], [address]. tel:[phone] OFFICE/OUTPA TIENT VISIT EST [facility], [address] [address], [place], [address], [place] tel:[phone] [facility] Status post revision of total replacement of left knee 2 L'Hommedieu [place]. [address], [place], [place], [address]. tel:[phone] Referring Provider: Saul Powers, [address] [place], [address]. tel:[phone] OFFICE/OUTPA TIENT VISIT EST [facility], [address] [facility], [place], [address], [place] tel:[phone] [facility] Status post revision of total replacement of left knee 2 Laramore Sanam. [address], [place], [address]. tel:[phone] Referring Provider: Saul Powers, [address] [place], [address]. tel:[phone] [facility], [address] [facility] [address] [place] [address], [address], [place] tel:[phone] [facility] Status post revision of total replacement of left knee 2 L'Hommedieu [place]. [address] , [place], [place], [address]. tel:[phone] Referring Provider: Bryant Aguayo, [address] [place], [address]. tel:[phone] [facility], [address], [address], [place] tel:[phone] [facility] Status post revision of total replacement of left knee 2 Laramore Sanam. [address], [place], [address]. tel:[phone] Referring Provider: Bryant Aguayo, [address] [place], [address]. tel:[phone] [facility], [address], [address], [place] tel:[phone] [facility] Status post revision of total replacement of left knee 2 Yuryamsandi Martinsa. [address] [address] [facility] [address], [place], [address]. tel:[phone] Referring Provider: Bryant Aguayo, [address] [place], [address]. tel:[phone] [facility], [address] [address], [place], [address], [place] tel:[phone] [facility] Status post revision of total replacement of left knee 2 Yuryamore Sanam. [address] [facility] [address], [place], [address]. tel:[phone] Referring Provider: Bryant Aguayo, [address] [place], [address]. tel:[phone] [facility], [address], [address], [place] tel:[phone] [facility] Infection of total knee replacement, initial encounterStatu s post total left knee replacementPer jonathan history of other infectious and parasitic diseasesEncoun ter for insertion of prosthetic knee after prior removal of knee prosthesis 2 L'Hommedieu Norma. [address] [facility], [place], [place], [address]. tel:[phone] [facility], [address] [address], [place], [address], [place] tel:[phone] [facility] Infection of total left knee replacement, subsequent encounterHisto ry of total left knee replacementBod y mass index [BMI] 31.0-31.9, adult 2 Laramsandi Martinsa. [address] [facility] [address], [place], [address]. tel:[phone] Referring Provider: Bryant Aguayo, [address] [place], [address]. tel:[phone] [facility], [address] [address], [place], [address], [place] tel:[phone] [facility] Status post revision of total replacement of right kneeBody mass index [BMI] 31.0-31.9, adult 2 Topper Tristan. [address], [place], [place], [address]. tel:[phone] Referring Provider: Bryant Aguayo, [address] [place], [address]. tel:[phone] [facility], [address] [facility] [address], [place], [address], [place] tel:[phone] [facility] Status post revision of total replacement of right knee 1 Topper Tristan. [address], [place], [place], [address]. tel:[phone] Referring Provider: Nabor Holt, [address] [place], [address]. tel:[phone] [facility], [address], [address], [place] tel:[phone] [facility] Infection of total knee replacement, initial encounterStatu s post revision of total replacement of right knee 1 L'Hommedieu [place]. [address] [employer], [place], [address]. tel:[phone] OFFICE/OUTPA TIENT VISIT EST [facility], [address] [address], [place], [address], [place] tel:[phone] [facility] Infection of total knee replacement, initial encounterPrese nce of unspecified artificial knee joint 1 L'Hommedieu [place]. [address] [employer], [place], [address]. tel:[phone] Referring Provider: Nabor Holt, [address] [place], [address]. tel:[phone] OFFICE/OUTPA TIENT VISIT EST [facility], [address], [address], [place] tel:[phone] [facility] History of total left knee replacementPai n due to total left knee replacement, initial encounterBody mass index [BMI] 33.0-33.9, adult Jul- 1 Micah'Hommedieu [place]. [address] [facility], [place], [place], [address]. tel:[phone] OFFICE/OUTPA TIENT VISIT NEW [facility], [address] [facility] [address], [place], [address], [place] tel:[phone] [facility] Pain in left kneeLeft leg painHistory of total left knee replacementBod y mass index [BMI] 33.0-33.9, adult 1 Micah'Hommedieu [place]. [address] [address] [facility], [place], [place], [address]. tel:[phone] Referring Provider: Nabor Holt, [address] [place], [address]. tel:[phone] Family History Family Member Type Diagnosis Age [...] Provider Payers Payer name Insurance type Covered alliance party ID Authordannya timaritza(s) [employer] Medicare Advantage PPO OT [id number] [facility] E2 OT [id number] Social History Type Description Quantity Date Captured [...] region) ordered Referral Referred To: Ildefonso Al [address] [place], [phone] Ordered: Referrals: Allopathic & Osteopathic Physicians : [...] Future Order: Lab Order CBC With Differential/Platelet ([id number]), Ordered on: Ordered Future Order: Lab Order C-Reacti ve Protein, Quant ([id number]), Ordered on: Ordered Future Order: Lab Order Sediment ation Rate-Westergren ([id number]), Ordered on: Ordered Future Order: Lab Order CBC With Differential/Platelet ([id number]), Ordered on: Ordered Future Order: Lab Order C-Reacti ve Protein, Quant ([id number]), Ordered on: Ordered Future Order: Lab Order Sediment ation Rate-Westergren ([id number]), Ordered on: Ordered History Of Present Illness [...] to Body mass index [BMI] 33.0-33.9, adult Giving encouragement to exercise Related to Body mass index [BMI] 33.0-33.9, adult Discussed treatment options Rela abdi to Left leg pain Fall prevention home exercise program handout provided Assessments Type Assessment Date assessment Other infective (teno)synovitis, right knee assessment Pyogenic arthritis o f right knee joint, due to unspecified organism assessment Arthritis due to other bacteria, right knee Patient Care Teams Name Effective Dates (start - stop) Status Members No Information
--- OUTSIDE RECORDS SUMMARY | 2025-04-01 11:48 | XMS_ITS ---
Author Organization [facility] Care Team Providers Care Sock Turner Name Role Phone Mauro Mattson Unavailable Unavailable Zo Mattson Unavailable Unavailable Allergies and adverse reactions Code CodeSystem Substance Reaction Severity StartDate Concern Status 812986 RXNORM Ustekinumab Unknown 06/16/2023 active 49188 RXNORM Tetracycline Mild 06/16/[address] Sulfa Antibiotics Unknown 06/16/2023 active 8640 RXNORM predniSONE Mild 06/16/2023 active 7984 RXNORM Penicillin Unknown 06/16/2023 active Peanut Severe 06/16/2023 active 36670 RXNORM Lisinopril Mild 06/16/2023 active Latex Unknown 06/16/2023 active 5032 RXNORM guaiFENesin Mild 06/16/2023 active 4053 RXNORM Erythromycin Unknown 06/16/2023 active Banana Mild 06/16/2023 active 18000 RXNORM Atorvastatin Unknown 06/16/2023 active 6649580 RXNORM Apremilast Unknown 06/16/2023 active 00544 RXNORM amLODIPine Mild 06/16/2023 active 076138 RXNORM Adalimumab Unknown 06/16/2023 active Care Team Name Role Address Phone Organization Max Mattson [facility] [address] [place], [address], [place] (Office): : : [facility] [employer] 06/16/2023 - 06/25/2023 Zo Mattson [address] [facility] , [place], [place], [facility] (Office): : : [facility] [employer] 06/16/2023 - 06/25/2023 Goals Section Description Status [...] completed tuberculin skin test; unspecified formulation lotNumber: [id number] expiry: 04/27/2025 Mfg: Talknote Given 0.1 ml Right Forearm intradermally Step 1 of Multi-step with next step required 98 CVX created date: 06/21/2023 consent date: 06/21/2023 administer ed date: 06/21/2023 Educated by Donovan Vieyra on 06/21/2023 Zoster (Shingles) completed zoster vaccine, live lotNumber: [id number] Mfg: zostavax Given intramuscularly 121 CVX created date: 06/21/2023 administer ed date: 11/02/2015 Hepatitis A completed hepatitis A and hepatitis B vaccine lotNumber: [id number] Given intramuscularly 104 CVX created date: 06/21/2023 administer ed date: 07/31/2020 SARS-COV-2 (COVID-19) completed SARS-COV-2 (COVID-19) vaccine, mRNA, spike protein, LNP, preservative free, 30 mcg/0.3mL dose lotNumber: [id number] Mfg: [employer] Given 0.3 ml intramuscularly Step 2 of Multi-step with next step required 208 CVX created date: 06/21/2023 administer ed date: 02/12/2021 SARS-COV-2 (COVID-19) completed SARS-COV-2 (COVID-19) vaccine, mRNA, spike protein, LNP, preservative free, 30 mcg/0.3mL dose lotNumber: [id number] Mfg: Miew Given 0.3 ml intramuscularly Step 1 of Multi-step with next step required 208 CVX created date: 06/21/2023 administer ed date: 01/15/2021 SARS-COV-2 Booster (COVID-19 Booster) completed SARS-COV-2 (COVID-19) vaccine, mRNA, spike protein, LNP, preservative free, 100 mcg/0.5mL dose or 50 mcg/0.25mL dose lotNumber: [id number] Mfg: Pfiizer Given 0.3 ml intramuscularly 207 CVX created date: 06/21/2023 administer ed date: 05/27/2022 SARS-COV-2 Booster (COVID-19 Booster) completed SARS-COV-2 (COVID-19) vaccine, mRNA, spike protein, LNP, preservative free, 100 mcg/0.5mL dose or 50 mcg/0.25mL dose lotNumber: [id number] Mfg: Pfizer Booster Given 0.3 ml intramuscularly [...] OF UNSPECIFIED LOWER EXTREMITY 06/17/20 23 06/19/[id number] completed 2 CHRONIC VENOUS HYPERTENSION (IDIOPATHIC) WITH OTHER COMPLICATIONS OF BILATERAL LOWER EXTREMITY 06/17/[address] active 3 GASTRO-ESOPHAGEA L REFLUX DISEASE WITHOUT ESOPHAGITIS 06/17/[address] active 4 ACQUIRED ABSENCE OF BOTH CERVIX AND UTERUS 06/16/[address] active 5 ANEMIA, UNSPECIFIED 06/16/[address] active 6 ARTHRITIS DUE TO OTHER BACTERIA, RIGHT KNEE 06/16/[address] active 7 EFFUSION, RIGHT KNEE 06/16/[address] active 8 ELEVATED WHITE BLOOD CELL COUNT, UNSPECIFIED 06/16/[address] active 9 ENCOUNTER FOR SURGICAL AFTERCARE FOLLOWING SURGERY ON THE SKIN AND SUBCUTANEOUS TISSUE 06/16/[address] active 10 ESSENTIAL (PRIMARY) HYPERTENSION 06/16/[address] active 11 OTHER ABNORMALITIES OF GAIT AND MOBILITY 06/16/[address] active 12 PERSONAL HISTORY OF OTHER VENOUS THROMBOSIS AND EMBOLISM 06/16/[address] active 13 PRESENCE OF UNSPECIFIED ARTIFICIAL KNEE JOINT 06/16/[address] active 14 RHEUMATOID ARTHRITIS WITH RHEUMATOID FACTOR, UNSPECIFIED 06/16/[address] active 15 UNSTEADINESS ON FEET 06/16/[address] active Reason for Referral No Reasons for Referral Entered Social History Social History Observation Description Start Date End Date Code Code System Current Smoking Status Tobacco smoking consumption unknown 369218881 SNOMED CT Sex Assigned At Female 1950 12942-3 [facility] Gender Identity Vital Signs Code Code System Vitals Name Values and Units Timing Information 42941-9 [facility] Pain Level Value=0.0 06/25/2023 9279-1 [facility] Respiratory Rate Value=18.0 Units=/m in 06/25/2023 8462-4 [facility] Blood Pressure-Diastolic Value=84 Un its=mmHg 06/25/2023 8480-6 [facility] Blood Pressure-Systolic Hmreh=269 Un its=mmHg 06/25/2023 8310-5 [facility] Body Temperature Value=97.4 Units= F 06/25/2023 8867-4 [facility] Heart rate Jzenb=260.0 Units=/min 06/25/2023 23983-5 [facility] O2 % BldC Oximetry Value=98.0 Units= % 06/25/2023 81342-5 [facility] Weight Gbqzc=099.0 Units=Lbs 11/2022 8302-2 [facility] Height Value=65.0 Units=Inches 06/17/2023
--- OUTSIDE RECORDS SUMMARY | 2025-04-01 11:48 | XMS_ITS | Clinical Summary ---
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 Gender Identity Not on file Sexual Orientation [...] B Screening Completed 07/31/2020, [address] [place] [address] [facility] MEDICARE ADVANTAGE [facility] Address: [facility] [id number] [place] [phone] [facility] UHC MEDICARE ADVANTAGE [facility] MEDIC[facility] Address: [address] [address] [place] [address] [facility] FEDERAL Care Teams Oracle Applications Developer Relationship Specialty Start Date End Date Saul Powers MD [address] [place] [address] PCP - General Family Medicine 06/19/23
--- OUTSIDE RECORDS SUMMARY | 2025-04-01 11:48 | XMS_ITS | Encounter Summary ---
Author Organization [facility] Address 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 Gender Identity Not on file Sexual Orientation Not on file documented as of this encounter Plan of Treatment Not on file documented as of this encounter Visit Diagnoses Diagnosis Swelling of limb- Primary documented in this encounter Additional Health Concerns Infection Onset Date Last Indicated Resolved Time R/O Respiratory 12/22/2023 12/22/2023 12/22/2023 1 :57 PM ACTIVITIES MANAGER documented as of this encounter Care Teams Registration Rep Relationship Specialty Start Date End Date Artie Perkins MD [address] [place] [address] PCP - General Internal Medicine 12/13/23 documented as of this encounter
--- OUTSIDE RECORDS SUMMARY | 2025-04-01 11:48 | XMS_ITS | CONTINUITY OF CARE DOCUMENT ---
Author Name jackalla sabrinacarlosalla Address Unknown Organization [facility] Address [address] [facility] [address] [place] [address] Phone [phone] Care Team Providers Care Assistant Designer Name Role Phone Morteza Fish MD Unavailable DEMI TRUJILLO Unavailable PROBLEMS Condition Status Date Provider Notes Cardiology examination active Morteza Fish MD Hypertension active Morteza Fish MD Rheumatoid Arthritis active Morteza Fish MD Edema active Morteza Fish MD Shortness of breath active Morteza Fish MD Orthopnea active Morteza Fish MD ENCOUNTERS Date Type Provider Location Encounter Diag nosis 5 - 5 In-person encounter Office Visit Morteza Fish MD [facility] Cardiology examinationHypertensionRheumatoid ArthritisEdemaShortness of breathOrthopnea VITAL SIGNS Date Observation Value Provider Body Mass Index (Ratio) 21.30 kg/m2 Mary Fish MD pulse rate 72 /min Vero berrios [...] Payer name Policy type / Coverage type Wayan red democrat ID FOR LIFE [facility] [id number] [facility] [id number] [facility] MEDICARE ADVANTAGE PLAN (PPO) Medicare [id number] ADVANCE DIRECTIVES Name Date DISCUSSED - NO [...]
--- OUTSIDE RECORDS SUMMARY | 2025-04-01 11:48 | XMS_ITS | Referral Summary ---
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 Gender Identity Not on file Sexual Orientation [...] Plan of Treatment Not on file Insurance [facility] MEDICARE ADVANTAGE [id number] [facility] [place] [address] [place] [phone] [facility] MEDICARE ADVANTAGE [facility] FEDERAL Member Subscriber Plan / Payer (Ef fective 1993-Present) Name:[employer] Relation to Subscriber:Spouse Name:MAURO STOCK Date of :1950 (Home) Address: [address] [place] [address] [place] [address] Payer ID:[id number] (NAIC) Group ID:[id number] Type:[facility] Address: [address] [place] [phone] Care Teams Toddler Guide Relationship Specialty Start Date End Date Saul Powers MD [address] [place] [address] PCP - General Family Medicine 06/19/23
--- NOTE | 2025-04-01 11:49 | ED.EXTPRO ---
HPI - Extremity Problem General Chief complaint: Extremity Problem,Nontraumatic <Lexii Braun PA-C - Last Filed: 04/02/25 14:46> Stated complaint: legs need to be drained <Lexii Braun PA-C - Last Filed: 04/02/25 14:46> Time Seen by Provider: 04/01/25 11:16 <Lexii Braun PA-C - Last Filed: 04/02/25 14:46> History of Present Illness HPI Narrative: 74-year-old female with history of hypertension, hyperlipidemia, anemia, diastolic dysfunction, RA, DVT not on anticoagulants presents to the emergency department with family at bedside for swelling to bilateral lower extremities and pain to her right knee. Patient states she has had pain to her right knee since beginning of the month. Over the past few days began developing swelling to her bilateral lower extremities with orthopnea. She is endorsing cough, denies congestion or chest pain. Per chart review has a history of grade 1 diastolic dysfunction but is not on any diuretics. She states she is normally able to ambulate with a walker, however progressively has been unable ambulate due to the swelling to her legs and pain to her right knee. She denies injury trauma to the right knee. She has had multiple surgeries to the right knee, however this a [place] joint. Patient was evaluated ED 12/06/23 for right knee pain. She was admitted due to concerns for septic joint and taken to the OR for washout with Dr. Bello. She was discharged to [facility] on 12/17/2024 after cultures of the right knee showed no growth and her pain was presumed to be secondary to an RA flare. <Lexii Braun PA-C - Last Filed: 04/02/25 14:46> Related Data Home medications: Home Medications ?Medication ?Instructions ?Recorded ?Confirmed ?Last Taken ?Type polyethylene glycol 3350 17 17 g PO DAILY 07/09/24 04/01/25 12/06/24 History gram/dose oral powder (Miralax) megestrol 40 mg tablet 40 mg PO BID 04/01/25 04/01/25 Unknown History tramadol 50 mg tablet 50 mg PO Q12H PRN pain 04/01/25 04/01/25 Unknown History <Lexii Braun PA-C - Last Filed: 04/02/25 14:46> Allergies/Adverse reactions: Allergies Allergy/AdvReac Type Severity Reaction Status Date / Time amlodipine Allergy Severe Hives Verified 12/24/24 07:23 banana Allergy Severe throat Verified 12/24/24 07:23 Itching latex Allergy Severe Redness of Verified 12/24/24 07:23 Skin, baker lisinopril Allergy Severe Difficulty Verified 12/24/24 07:23 Breathing Penicillins Allergy Severe Rash Verified 12/24/24 07:23 pseudoephedrine Allergy Severe Difficulty Verified 12/24/24 07:23 Breathing tetracycline Allergy Severe Difficulty Verified 12/24/24 07:23 Breathing tree nut Allergy Severe Other Verified 12/24/24 07:23 dextromethorphan Allergy Intermediate Rash Verified 12/24/24 07:23 prednisone Allergy Unknown Other Verified 12/24/24 07:23 acetaminophen AdvReac Intermediate Nausea and Verified 12/24/24 07:23 Vomiting aspirin AdvReac Intermediate Nausea and Verified 12/24/24 07:23 Vomiting Sulfa (Sulfonamide AdvReac Mild Other Verified 12/24/24 07:23 Antibiotics) <Lexii Braun PA-C - Last Filed: 04/02/25 14:46> Review of Systems Review of Systems: All systems reviewed & are unremarkable except as noted in HPI and below <Lexii Braun PA-C - Last Filed: 04/02/25 14:46> [facility] Past Medical History Medical History: Medical History DVT (deep venous thrombosis) No longer on anticoagulation Chronic blood loss anemia History of seizure (~11/2023) Following surgery for septic arthritis. Osteopenia Moderate protein malnutrition Diastolic dysfunction Echo 04/2024 demonstrated EF of 60 65%, mildly increased left ventricular wall thickness, grade 1 diastolic dysfunction, right ventricular function normal, atrial septum appears aneurysmal, moderate aortic valve calcification, mild mitral valve regurgitation, mild tricuspid valve regurgitation Occult blood in stools Hyperlipidemia Hypertension Rheumatoid arthritis <Lexii Braun PA-C - Last Filed: 04/02/25 14:46> Surgical History Surgical History: Surgical History History of colonoscopy (07/17/24) Internal hemorrhoids, diverticulosis Normal esophagogastroduodenoscopy (EGD) (07/17/24) PEG (percutaneous endoscopic gastrostomy) status Place at [facility] in January 2024 due to dysphagia, remains in place due to moderate to severe protein calorie malnutrition with approximately 50 lb weight loss since August 2023. History of total left knee replacement Port-A-Cath in place Left chest wall H/O right knee surgery (~11/2023) Washout due to septic arthritis November 2023 H/O: hysterectomy <Lexii Braun PA-C - Last Filed: 04/02/25 14:46> Family History Family History: Family History Father , black lung disease No problems noted. Mother , from [place]JI gangrene. No problems noted. Sibling Acute myocardial infarction Prednisolone adverse reaction Sibling No problems noted. <Lexii Braun PA-C - Last Filed: 04/02/25 14:46> Social History Social History: Social History Social History: Code status: DNR/DNI (per patient request) she states that she does not think that her would agree with this but this is her desire. 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 EYES: EOMI. ENT: Nares clear, no rhinorrhea or epistaxis. Mucous membranes moist. NECK: Supple. CHEST: Clear to auscultation. No respiratory distress. HEART: Regular rate and rhythm. No murmur heard. Normal peripheral pulses. ABDOMEN: Soft, nontender, nondistended, normal active bowel sounds. EXTREMITIES: 1+ bilateral lower extremity edema without overlying erythema. Well-healed surgical scars to bilateral knees. Right knee is larger than left with diffuse tenderness, no warmth or erythema. Full active and passive range of motion of bilateral knees. DP pulses 2+. Sensation intact throughout. SKIN: Warm, dry, no rash. NEURO: No focal deficits. Alert and oriented x3 <Lexii Braun PA-C - Last Filed: 04/02/25 14:46> Course Course Emergency Course: Patient sign-out back to myself pending arthrocentesis results. Patient's right knee tap was traumatic and does show 19,020 synovial neck cells and 93% no real neutrophils. No crystals. Pending synovial glucose and protein. Her lab work shows leukocytosis of 14 with an ESR greater than 140 and CRP of 19. Hemoglobin is at her baseline at 8.6. Bilateral venous duplex showed no DVT. BNP normal when age adjusted. Chest x-ray shows cardiomegaly, no acute findings. Patient family at bedside are updated on results. I did discuss synovial fluid findings with Dr. Bello who treated the patient on her last stay in the hospital for concerns for right septic arthritis vs RA. He agrees to consult on admission, agrees to Rocephin and vancomycin empirically to cover septic arthritis. Discussed case with a [facility] hospitalist Tiesha who agrees to the plan for admission. Will also consult PT/OT for reported decreased mobility. <Lexii Braun PA-C - Last Filed: 04/02/25 14:46> Vital Signs Vital signs: Vital Signs Temperature 98.0 F 04/01/25 10:13 Pulse Rate 84 04/01/25 10:13 Respiratory Rate 20 04/01/25 10:13 Blood Pressure 149/80 H 04/01/25 10:13 Pulse Oximetry 100 04/01/25 10:13 Oxygen Delivery Room Air 04/01/25 10:13 Temperature 98.5 F 04/02/25 05:00 Pulse Rate 74 04/02/25 08:27 Respiratory Rate 24 H 04/02/25 05:00 Blood Pressure 106/58 L 04/02/25 08:27 Pulse Oximetry 99 04/02/25 05:00 Oxygen Delivery Room Air 04/02/25 08:00 Fraction of Inspired Oxygen 21 04/02/25 01:36 <Lexii Braun PA-C - Last Filed: 04/02/25 14:46> Vital Signs Temperature 98.0 F 04/01/25 10:13 Pulse Rate 84 04/01/25 10:13 Respiratory Rate 20 04/01/25 10:13 Blood Pressure 149/80 H 04/01/25 10:13 Pulse Oximetry 100 04/01/25 10:13 Oxygen Delivery Room Air 04/01/25 10:13 Temperature 98.5 F 04/02/25 05:00 Pulse Rate 74 04/02/25 08:27 Respiratory Rate 24 H 04/02/25 05:00 Blood Pressure 106/58 L 04/02/25 08:27 Pulse Oximetry 99 04/02/25 05:00 Oxygen Delivery Room Air 04/02/25 08:00 Fraction of Inspired Oxygen 21 04/02/25 01:36 <Davonte Negron MD - Last Filed: 04/01/25 16:09> Procedures Joint Aspiration/Injection Joint Asp./Inject. 1: Joint Aspiration Date: 04/01/25 <Davonte Negron MD - Last Filed: 04/01/25 16:09> Joint Aspiration Time: 15:31 <Davonte Negron MD - Last Filed: 04/01/25 16:09> Side of body: right <Davonte Negron MD - Last Filed: 04/01/25 16:09> Joint Aspirated: knee <Davonte Negron MD - Last Filed: 04/01/25 16:09> Skin Prep: Chlorhexidine <Davonte Negron MD - Last Filed: 04/01/25 16:09> Local Anesthetic: lidocaine 1% and with epi <Davonte Negron MD - Last Filed: 04/01/25 16:09> Amount of anesthesia used (mL): 8 <Davonte Negron MD - Last Filed: 04/01/25 16:09> Needle Size Used: 18G <Davonte Negron MD - Last Filed: 04/01/25 16:09> Fluid Obtained: bloody <Davonte Negron MD - Last Filed: 04/01/25 16:09> Total fluid obtained (mL): 15 <Davonte Negron MD - Last Filed: 04/01/25 16:09> Patient Tolerated Procedure: well <Davonte Negron MD - Last Filed: 04/01/25 16:09> Complications: none <Davonte Negron MD - Last Filed: 04/01/25 16:09> MDM - Extremity (Nontraumatic) MDM Narrative Medical decision making narrative: 74-year-old female presents to the emergency department for lower extremity edema, right knee pain and orthopnea. See HPI for further history. Triage vital stable. Patient is afebrile and nontoxic appearing. Exam significant for the above. Patient is neurovascularly intact. Plan obtained lab work, EKG, BNP, chest x-ray troponin. Will add on a bilateral venous duplex given history of DVT not on anticoagulants with reported new onset lower extremity edema. Will obtain x-ray of the right knee. Knee does not appear to be septic on exam today. Pending workup at time of sign-out to Dr. Donato. <Lexii Braun PA-C - Last Filed: 04/02/25 14:46> Lab Data Result diagrams: 04/02/25 09:51 04/02/25 09:51 <Lexii Braun PA-C - Last Filed: 04/02/25 14:46> Labs: Lab Results 04/01/25 04/01/25 04/01/25 Range/Units 12:17 12:18 15:34 WBC 14.0 H (4.5-10.0) K/mm3 RBC 2.84 L (4.2-5.4) M/mm3 Hgb 8.6 L (12.0-15.0) g/dL Hct 27.7 L (37.0-47.0) % MCV 97.5 (80-100) fl MCH 30.3 (26-34) pg MCHC 31.0 L (32-36) g/dl RDW 17.2 H (11.5-14.5) % Plt Count 478 H (150-375) k/mm3 MPV 8.4 (7.4-10.4) fl Immature Gran % (Auto) 6.1 H (0-0.5) % Neut % (Auto) 60.5 (45.5-73.1) % Lymph % (Auto) 21.2 (18.3-44.2) % [place] % (Auto) 9.6 H (2.6-8.5) % Eos % (Auto) 1.3 (0-4.4) % Baso % (Auto) 1.3 H (0.2-1.2) % Lymph # (Auto) 2.97 (0.9-3.2) K/mm3 [place] # (Auto) 1.4 H (0.1-0.6) K/mm3 Eos # (Auto) 0.2 (0-0.3) K/mm3 Baso # (Auto) 0.2 H (0.0-0.1) K/mm3 Abs Immat Gran (auto) 0.86 H (0.00-0.031) K/mm3 Absolute Neuts (auto) 8.5 H (1.3-6.7) K/mm3 Absolute Nucleated RBC 0.000 (0.0-0.012) K/mm3 Band Neutrophils % Not Reportable Nucleated RBC % 0.0 (0.0-0.2) % Platelet Estimate Slightly increased (Adequate) Hypochromasia 1+ Anisocytosis 1+ Schistocytes None seen ESR > 140 H (0-20) mm/hr PT 15.4 H (11.1-14.7) Seconds INR 1.2 APTT 32.0 (22.3-36.8) Seconds Sodium 134 L (137-145) mmol/L Potassium 4.0 (3.4-5.0) mmol/L Chloride 102 (98-107) mmol/L Carbon Dioxide 29 (22-30) mmol/L Anion Gap 3 L (4-12) mmol/L BUN 13 D (7-17) mg/dL Creatinine 0.52 L (0.7-1.0) mg/dL Estim Creat Clear Calc 72 ml/min Estimated GFR > 60 (59 - ) Glucose 104 (65-110) mg/dL Calcium 8.2 L (8.4-10.2) mg/dL Magnesium 1.8 (1.6-2.3) mg/dL Total Bilirubin 0.5 (0.2-1.3) mg/dL AST 29 (14-36) U/L ALT 11 (6-35) U/L Alkaline Phosphatase 106 (38-126) U/L Troponin I < 0.012 (0.000-0.034) ng/mL C-Reactive Protein 19.0 H (<1.0) mg/dL NT-Pro-B Natriuret Pep 690 H (19.9-100) pg/mL Total Protein 8.0 (6.3-8.2) g/dL Albumin 2.8 L (3.5-5.1) g/dL Synovial Source Rt knee syn fluid Synovial Color Red (Colorless) Synovial Appearance Cloudy A (Clear) [place] 25137 H (0-0) /uL Synovial Nuc Cells 31018 H (0-200) /uL Synovial Neutrophils 93 H (0-25) % Synovial Lymphocytes 5 % Synovial Monocytes 1 % Synovial Macrophages 1 % Synovial Crystals None seen (None Seen) Synovial Glucose Pending Synovial Total Protein Pending 04/02/25 Range/Units 04:24 WBC (4.5-10.0) K/mm3 RBC (4.2-5.4) M/mm3 Hgb (12.0-15.0) g/dL Hct (37.0-47.0) % MCV (80-100) fl MCH (26-34) pg MCHC (32-36) g/dl RDW (11.5-14.5) % Plt Count (150-375) k/mm3 MPV (7.4-10.4) fl Immature Gran % (Auto) (0-0.5) % Neut % (Auto) (45.5-73.1) % Lymph % (Auto) (18.3-44.2) % [place] % (Auto) (2.6-8.5) % Eos % (Auto) (0-4.4) % Baso % (Auto) (0.2-1.2) % Lymph # (Auto) (0.9-3.2) K/mm3 [place] # (Auto) (0.1-0.6) K/mm3 Eos # (Auto) (0-0.3) K/mm3 Baso # (Auto) (0.0-0.1) K/mm3 Abs Immat Gran (auto) (0.00-0.031) K/mm3 Absolute Neuts (auto) (1.3-6.7) K/mm3 Absolute Nucleated RBC (0.0-0.012) K/mm3 Band Neutrophils % Nucleated RBC % (0.0-0.2) % Platelet Estimate (Adequate) Hypochromasia Anisocytosis Schistocytes ESR (0-20) mm/hr PT (11.1-14.7) Seconds INR APTT (22.3-36.8) Seconds Sodium (137-145) mmol/L Potassium (3.4-5.0) mmol/L Chloride (98-107) mmol/L Carbon Dioxide (22-30) mmol/L Anion Gap (4-12) mmol/L BUN (7-17) mg/dL Creatinine 0.68 L (0.7-1.0) mg/dL Estim Creat Clear Calc 56 ml/min Estimated GFR > 60 (59 - ) Glucose (65-110) mg/dL Calcium (8.4-10.2) mg/dL Magnesium (1.6-2.3) mg/dL Total Bilirubin (0.2-1.3) mg/dL AST (14-36) U/L ALT (6-35) U/L Alkaline Phosphatase (38-126) U/L Troponin I (0.000-0.034) ng/mL C-Reactive Protein (<1.0) mg/dL NT-Pro-B Natriuret Pep 1110 H (19.9-100) pg/mL Total Protein (6.3-8.2) g/dL Albumin (3.5-5.1) g/dL Synovial Source Synovial Color (Colorless) Synovial Appearance (Clear) Synovial RBC (0-0) /uL Synovial Nuc Cells (0-200) /uL Synovial Neutrophils (0-25) % Synovial Lymphocytes % Synovial Monocytes % Synovial Macrophages % Synovial Crystals (None Seen) Synovial Glucose Synovial Total Protein <Lexii Braun PA-C - Last Filed: 04/02/25 14:46> Lab Results 04/01/25 04/01/25 04/01/25 Range/Units 12:17 12:18 15:34 WBC 14.0 H (4.5-10.0) K/mm3 RBC 2.84 L (4.2-5.4) M/mm3 Hgb 8.6 L (12.0-15.0) g/dL Hct 27.7 L (37.0-47.0) % MCV 97.5 (80-100) fl MCH 30.3 (26-34) pg MCHC 31.0 L (32-36) g/dl RDW 17.2 H (11.5-14.5) % Plt Count 478 H (150-375) k/mm3 MPV 8.4 (7.4-10.4) fl Immature Gran % (Auto) 6.1 H (0-0.5) % Neut % (Auto) 60.5 (45.5-73.1) % Lymph % (Auto) 21.2 (18.3-44.2) % [place] % (Auto) 9.6 H (2.6-8.5) % Eos % (Auto) 1.3 (0-4.4) % Baso % (Auto) 1.3 H (0.2-1.2) % Lymph # (Auto) 2.97 (0.9-3.2) K/mm3 [place] # (Auto) 1.4 H (0.1-0.6) K/mm3 Eos # (Auto) 0.2 (0-0.3) K/mm3 Baso # (Auto) 0.2 H (0.0-0.1) K/mm3 Abs Immat Gran (auto) 0.86 H (0.00-0.031) K/mm3 Absolute Neuts (auto) 8.5 H (1.3-6.7) K/mm3 Absolute Nucleated RBC 0.000 (0.0-0.012) K/mm3 Band Neutrophils % Not Reportable Nucleated RBC % 0.0 (0.0-0.2) % Platelet Estimate Slightly increased (Adequate) Hypochromasia 1+ Anisocytosis 1+ Schistocytes None seen ESR > 140 H (0-20) mm/hr PT 15.4 H (11.1-14.7) Seconds INR 1.2 APTT 32.0 (22.3-36.8) Seconds Sodium 134 L (137-145) mmol/L Potassium 4.0 (3.4-5.0) mmol/L Chloride 102 (98-107) mmol/L Carbon Dioxide 29 (22-30) mmol/L Anion Gap 3 L (4-12) mmol/L BUN 13 D (7-17) mg/dL Creatinine 0.52 L (0.7-1.0) mg/dL Estim Creat Clear Calc 72 ml/min Estimated GFR > 60 (59 - ) Glucose 104 (65-110) mg/dL Calcium 8.2 L (8.4-10.2) mg/dL Magnesium 1.8 (1.6-2.3) mg/dL Total Bilirubin 0.5 (0.2-1.3) mg/dL AST 29 (14-36) U/L ALT 11 (6-35) U/L Alkaline Phosphatase 106 (38-126) U/L Troponin I < 0.012 (0.000-0.034) ng/mL C-Reactive Protein 19.0 H (<1.0) mg/dL NT-Pro-B Natriuret Pep 690 H (19.9-100) pg/mL Total Protein 8.0 (6.3-8.2) g/dL Albumin 2.8 L (3.5-5.1) g/dL Synovial Source Rt knee syn fluid Synovial Color Red (Colorless) Synovial Appearance Cloudy A (Clear) Synovial RBC 13589 H (0-0) /uL Synovial Nuc Cells 97791 H (0-200) /uL Synovial Neutrophils 93 H (0-25) % Synovial Lymphocytes 5 % Synovial Monocytes 1 % Synovial Macrophages 1 % Synovial Crystals None seen (None Seen) Synovial Glucose Pending Synovial Total Protein Pending 04/02/25 Range/Units 04:24 WBC (4.5-10.0) K/mm3 RBC (4.2-5.4) M/mm3 Hgb (12.0-15.0) g/dL Hct (37.0-47.0) % MCV (80-100) fl MCH (26-34) pg MCHC (32-36) g/dl RDW (11.5-14.5) % Plt Count (150-375) k/mm3 MPV (7.4-10.4) fl Immature Gran % (Auto) (0-0.5) % Neut % (Auto) (45.5-73.1) % Lymph % (Auto) (18.3-44.2) % [place] % (Auto) (2.6-8.5) % Eos % (Auto) (0-4.4) % Baso % (Auto) (0.2-1.2) % Lymph # (Auto) (0.9-3.2) K/mm3 [place] # (Auto) (0.1-0.6) K/mm3 Eos # (Auto) (0-0.3) K/mm3 Baso # (Auto) (0.0-0.1) K/mm3 Abs Immat Gran (auto) (0.00-0.031) K/mm3 Absolute Neuts (auto) (1.3-6.7) K/mm3 Absolute Nucleated RBC (0.0-0.012) K/mm3 Band Neutrophils % Nucleated RBC % (0.0-0.2) % Platelet Estimate (Adequate) Hypochromasia Anisocytosis Schistocytes ESR (0-20) mm/hr PT (11.1-14.7) Seconds INR APTT (22.3-36.8) Seconds Sodium (137-145) mmol/L Potassium (3.4-5.0) mmol/L Chloride (98-107) mmol/L Carbon Dioxide (22-30) mmol/L Anion Gap (4-12) mmol/L BUN (7-17) mg/dL Creatinine 0.68 L (0.7-1.0) mg/dL Estim Creat Clear Calc 56 ml/min Estimated GFR > 60 (59 - ) Glucose (65-110) mg/dL Calcium (8.4-10.2) mg/dL Magnesium (1.6-2.3) mg/dL Total Bilirubin (0.2-1.3) mg/dL AST (14-36) U/L ALT (6-35) U/L Alkaline Phosphatase (38-126) U/L Troponin I (0.000-0.034) ng/mL C-Reactive Protein (<1.0) mg/dL NT-Pro-B Natriuret Pep 1110 H (19.9-100) pg/mL Total Protein (6.3-8.2) g/dL Albumin (3.5-5.1) g/dL Synovial Source Synovial Color (Colorless) Synovial Appearance (Clear) Synovial RBC (0-0) /uL Synovial Nuc Cells (0-200) /uL Synovial Neutrophils (0-25) % Synovial Lymphocytes % Synovial Monocytes % Synovial Macrophages % Synovial Crystals (None Seen) Synovial Glucose Synovial Total Protein <Davonte Negron MD - Last Filed: 04/01/25 16:09> Discharge Plan Discharge Clinical Impression: Effusion of right knee <Lexii Braun PA-C - Last Filed: 04/02/25 14:46> Patient Disposition: Still a Patient <Lexii Braun PA-C - Last Filed: 04/02/25 14:46> Condition: Stable <Lexii Braun PA-C - Last Filed: 04/02/25 14:46>
--- OUTSIDE RECORDS SUMMARY | 2025-04-01 11:50 | XMS_ITS | Clinical Summary ---
Author Organization [facility] Address [address] [place] [address] Care Team Providers Care Framing And Hanging Name Role Phone None, Provider MD Primary [...] place to sleep or slept in a usp (including now)? No 07/11/2023 Comments No Sex and Gender Information Value Date Recorded Sex Assigned at Not on file Legal Sex Female 10:31 AM CDT Gender Identity Not on file Sexual Orientation Not on file Last Filed Vital Signs Vital Sign Reading Time Taken Comments Blood Pressure 166/84 10/10/2024 6:00 PM [employer] Pulse 73 10/10/2024 6:26 PM [employer] Temperature 36.3 C (97.4 F) 10/10/2024 3:57 PM [employer] Respiratory Rate 18 10/10/2024 6:26 PM [employer] Oxygen Saturation 100% 10/10/2024 6:26 PM [employer] Inhaled Oxygen Concentration - - Weight 56 kg (123 lb 7.3 oz) 10/10/2024 3:57 PM [employer] Height 165.1 cm (5' 5 ) 10/10/2024 3:57 PM [employer] Body Mass Index 20.54 10/10/2024 3:57 PM [employer] Plan of Treatment Health Maintenance Due Date [...] discharge from hospital Lifestyle No Karlie Gamez, [place] [address] [place] [address] [facility] Advance Directives * Full Code (Latest Code Status on File) Date Activated Date Inactivated Comments 07/11/2023 1:54 AM 07/12/2023 3:07 PM Care Teams Framing And Hanging Relationship Specialty Start Date End Date None, Provider, PCP - General UNKNOWN PHYSICIAN SPECIALTY 07/10/23
--- OUTSIDE RECORDS SUMMARY | 2025-04-01 11:50 | XMS_ITS | Clinical Summary ---
Author Organization [facility] Address [address] [facility] [place] [address] Care Team Providers Care Glycerin Operator Name Role Phone Veronica Henderson MUSIC ARTIST-TYPEWRITER OPERATOR AUTOMATIC Unavailable [phone] Rosa Dobson MD Unavailable Rosario Lundberg MD Unavailable [phone] Artie Perkins MD Primary Care Provider [phone] Corinne San MUSIC ARTIST-TYPEWRITER OPERATOR AUTOMATIC Unavailable Artie Perkins MD Unavailable Source Comments [facility],non-owned Affiliates and Associated Physician Practices is amultiple site organization consisting of ambulatory clinics and hospital sitesin [place], [place], [place] and [place]. This disclosure is being madepursuant to the Care Everywhere program and may not contain all information available regarding this patient. 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 No 06/29/2023 Comments No Sex [...] this topic Medical Devices Implanted Type Area Pharmacy Service Associate Device Identifier Shelf Expiration Date Model / Serial / Lot Floseal 10 Implanted:Qty : 1 on 12/26/2017 by Abisai Galvez DO at [facility] Cervical [employer] 02/22/2019 [id number] / / [id number] Graft Bone Alfs + Dbm 1ml Pst Implanted:Qty : 1 on 12/26/2017 by Abisai Galvez DO at [facility] Cervical Nuv[employer] 09/23/2018 [id number] / / [id number] 2 Level Plate 40mm Implanted:Qty : 1 on 12/26/2017 by Abisai Galvez DO at [facility] [employer] [id number] / / Self Tapping Screw 4.0x12 Implanted:Qty : 6 on 12/26/2017 by Abisai Galvez DO at [facility] [employer] [id number] / / Spacer 6mm Implanted:Qty : 2 on 12/26/2017 by Abisai Galvez DO at [facility] Stat [facility] [id number] / / Procedures Procedure Name Priority Date/Time [...] Agency Comment Lab Testing performed at: [facility] [address] [facility] [id number] Saul Powers MD LAB - CHEMISTRY ORDERABLES Fi nal Result [facility] ACCOUNT BILL [address] [place] [address] * MAMMOGRAM (05/12/2022) Anatomical Region Laterality Modality [...] with a HCV Nucleic Acid Amplification test ([id number]). Blood BLOOD SPECIMEN / Unknown 07/31/2021 9:36 AM CDT 07/31/2021 Narrative Resulting Agency Comment Lab Testing performed at: [facility] [address] [facility] [id number] Chanelle Flood MUSIC ARTIST-TYPEWRITER OPERATOR AUTOMATIC LAB - CHEMISTRY ORD ERABLES Final Result [facility] ACCOUNT BILL [address] [place] [address] from Last 3 Months or Most Recently Relevant to [place] [id number] [facility] UHC MANAGED MEDICARE ADV [facility] Advance Directives * Full Code (Latest [...] 7:35 PM 05/07/2016 12:28 PM Care Teams Glycerin Operator Relationship Specialty Start Date End Date Artie Perkins MD [address] [place] [address] PCP - General Internal Medicine 11/27/23 Artie Perkins MD [address] [place] [address] PCP - Attributed-[facility] 01/18/25 Veronica Henderson APRN-TYPEWRITER OPERATOR AUTOMATIC Nurse Practitioner Family 06/10/21 Rosa Dobson MD [address] [address] Rheumatology 06/10/21 Rosario Lundberg MD [address] [address] Dermatology 06/10/21 Corinne San, MUSIC ARTIST-TYPEWRITER OPERATOR AUTOMATIC [address] [place] [id number] Nurse Practitioner 05/15/24
--- OUTSIDE RECORDS SUMMARY | 2025-04-01 11:50 | XMS_ITS | Encounter Summary ---
Author Organization [facility] Address [address] [place] [address] Care Team Providers Care Shop Tailor Apprentice Name Role Phone Artie Perkins MD Primary Care Provider Reason for Visit * Reason Onset Date Comments Possible R knee septic arthr itis, staple removal evaluation 01/13/2024 LEFT VOICEMAIL ON [employer] [place] CRYS Encounter Details Date Type Department Care Team (Late st Contact Info) Description 01/13/2024 Telephone [facility] Admitting [address] [place] [address] [place] [address] [place] [address] Possible R knee septic arthritis, staple removal evaluation (LEFT VOICEMAIL ON [employer] 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
[2025-04-01 12:24] LABS: Basophils Absolute Auto 0.2 K/mm3 (0.0-0.1); Basophils Percent Auto 1.3 % (0.2-1.2); Eosinophils Absolute Auto 0.2 K/mm3 (0-0.3); Eosinophils Percent Auto 1.3 % (0-4.4); Hematocrit 27.7 % (37.0-47.0); Hemoglobin 8.6 g/dL (12.0-15.0); Immature Granulocyte Absolute 0.86 K/mm3 (0.00-0.031); Immature Granulocyte Percent A 6.1 % (0-0.5); Lymphocytes Absolute Auto 2.97 K/mm3 (0.9-3.2); Lymphocytes Percent Auto 21.2 % (18.3-44.2); Mean Corpuscular Hemoglobin 30.3 pg (26-34); Mean Corpuscular Volume 97.5 fl (80-100); Mean Platelet Volume 8.4 fl (7.4-10.4); Monocytes Absolute Auto 1.4 K/mm3 (0.1-0.6); Monocytes Percent Auto 9.6 % (2.6-8.5); Neutrophils Absolute Auto 8.5 K/mm3 (1.3-6.7); Neutrophils Percent Auto 60.5 % (45.5-73.1); Platelet Count Result 478 k/mm3 (150-375); Red Blood Count 2.84 M/mm3 (4.2-5.4); Red Cell Distribution Width 17.2 % (11.5-14.5)
[2025-04-01 12:35] LABS: INR 1.2; Prothrombin Time 15.4 Seconds (11.1-14.7)
[2025-04-01 12:55] LABS: NT Pro B Type Natriuretic Pept 690 pg/mL (19.9-100); Troponin I < 0.012 ng/mL (0.000-0.034)
[2025-04-01 13:04] LABS: Alanine Aminotransferase 11 U/L (6-35); Albumin Level 2.8 g/dL (3.5-5.1); Alkaline Phosphatase 106 U/L (38-126); Anion Gap 3 mmol/L (4-12); Aspartate Amino Transferase 29 U/L (14-36); Bilirubin,Total 0.5 mg/dL (0.2-1.3); Blood Urea Nitrogen 13 mg/dL (7-17); Calcium 8.2 mg/dL (8.4-10.2); Carbon Dioxide 29 mmol/L (22-30); Chloride 102 mmol/L (98-107); Estimated CRCL calculation 72 ml/min; Estimated Glomerular Filt Rate > 60; Glucose 104 mg/dL (65-110); Sodium 134 mmol/L (137-145)
[2025-04-01 13:07] LABS: Anisocytosis 1+; Hypochromasia 1+; Platelet Estimate Slightly Increased (Adequate); Schistocytes None Seen
[2025-04-01 13:12] LABS: Magnesium 1.8 mg/dL (1.6-2.3)
[2025-04-01] MEDS: MORPHINE SULFATE (*CRX) 2 MG/ML INJ IV PUSH ×2 (14:57→18:19)
[2025-04-01 15:33] LABS: Erythrocyte Sedimentation Rate > 140 mm/hr (0-20)
[2025-04-01 16:50] LABS: Appearance Synovial Fluid Cloudy (Clear); Color Synovial Fluid Red (Colorless); Nucleated Cell Synovial Fluid 19020 /uL (0-200); Source Synovial Fluid Rt Knee Syn Fluid
[2025-04-01 16:51] LABS: Lymphocytes Synovial Fluid 5 %; Macrophages Synovial Fluid 1 %; Monocytes Synovial Fluid 1 %; Neutrophils Synovial Fluid 93 % (0-25); RBC Synovial Fluid 40000 /uL (0-0)
[2025-04-01 16:53] LABS: Crystals Synovial Fluid None Seen (None Seen)
[2025-04-01] MEDS: cefTRIAXone 2 GM/NS 100 ML 2 GM/100 ML BAG IVPB (18:20)
[2025-04-01] MEDS: VANCOMYCIN 1,500 MG/NS 500 ML 1,500 MG/500 ML BAG 250 MG IVPB (19:02)
[2025-04-01] MEDS: diphenhydrAMINE HCl INJ 50 MG/ML VIAL 25 MG IV PUSH (19:45)
--- NOTE | 2025-04-01 19:50 | PC.NURSE ---
Pt states she is feeling itchy and flushed while receiving vancomycin. Pt states she has had this medication several times and never had any sort of reaction. Vancmycin was paused, hospitalist was called and gave orders to give 25 mg of benadryl IV and see if symptoms resolve. VSS at this time.
--- NOTE | 2025-04-01 20:34 | PC.NURSE ---
Pt's symptoms have resolved and vancomycin is restarted at a rate of 150 mls/hr per hospitalist.
--- NOTE | 2025-04-01 20:40 | ADMGEN ---
This patient, Tiesha Stock, was admitted to Medical Room 248-. Patient/family oriented to hospital policies and general routines including ID bracelet, bed and alarms, visiting hours, pain management, procedures, bathroom and other care routines, personal items, smoking policy, room service/diet, and visiting hours. Information on how to activate the Rapid Response Team has been discussed. Patient/Family are encouraged to report perceived risks to care and to ask questions if they do not understand what they are told or what they should do.
--- NOTE | 2025-04-01 23:07 | PM.IMHP ---
H&P: HPI History of Present Illness Date/Time: 04/01/25 23:07 Chief Complaint: Right knee pain Narrative: Patient is a 74-year-old female with a past medical history of hypertension, hyperlipidemia, anemia, diastolic dysfunction, rheumatoid arthritis, and DVT not on anticoagulation, presented to the ED due to bilateral lower extremity swelling and right knee pain. As per ED notes, the patient has had right knee pain since the beginning of the month. Also, the patient has bilateral lower extremity edema with orthopnea. Patient has a history of grade 1 diastolic dysfunction but not on any diuretic. Patient ambulates with a walker but has lately been unable to ambulate due to swelling of her legs and pain in her right knee. Pertinent ED labs: WBC 14, hemoglobin 8.6, hematocrit 27.7, platelet 478, sodium 134, potassium 4, creatinine 0.52 CRP 19, ESR greater than 140 BNP 690 Right knee x-ray. Persistent large right knee joint effusion with suggestion of some osteolysis with loss of a well-defined cortical margin along the articular surfaces of the patella and trochlea, suspicious for osteomyelitis. Recommend diagnostic arthrocentesis. 2. Tricompartmental osteoarthritis with severe joint space narrowing in the medial and lateral compartments. The patient is admitted to the setting of her right knee septic arthritis/OM. Patient was recently admitted on 12/07/2024 and was taken to OR for washout by Dr. Bello on 12/07/2024. Aspirate was sent for culture, and no growth was seen until discharge. The patient completed the Ceftin and Clindamycin course. Currently Orthopedics will be consulted for possible I and D with a washout. The patient was started on vancomycin due to the concerns of osteomyelitis. Regarding orthopnea and lower extremity swelling, I will repeat echocardiogram in the a.m.. The record review indicates that the echocardiogram on 05/01/2024 shows that systolic function is normal, with ejection fraction 60-65% and grade 1 diastolic dysfunction. Will Consider Lasix 40 mg IV q.d. and will continue to monitor creatinine and can be titrated as needed. After the admission, I received a call from the nurse that the patient had possible flushing syndrome from vancomycin. I advised giving Benadryl and a slow infusion. If the patient continues to react to vancomycin, it will be discontinued, and the patient can be considered for Zosyn and daptomycin. An ultrasound of the lower extremity will also be performed. Lately, the patient has been unable to walk and uses a walker. The patient also reports occasional shortness of breath at night. I ordered an echo in the morning, and BNP as mentioned above will consider Lasix if needed. Review of Systems Review of Systems: All systems reviewed & are unremarkable except as noted in HPI and below PMFSH Past Medical History Medical History DVT (deep venous thrombosis) No longer on anticoagulation Chronic blood loss anemia History of seizure (~11/2023) Following surgery for septic arthritis. Osteopenia Moderate protein malnutrition Diastolic dysfunction Echo 04/2024 demonstrated EF of 60 65%, mildly increased left ventricular wall thickness, grade 1 diastolic dysfunction, right ventricular function normal, atrial septum appears aneurysmal, moderate aortic valve calcification, mild mitral valve regurgitation, mild tricuspid valve regurgitation Occult blood in stools Hyperlipidemia Hypertension Rheumatoid arthritis Surgical History Surgical History History of colonoscopy (07/17/24) Internal hemorrhoids, diverticulosis Normal esophagogastroduodenoscopy (EGD) (07/17/24) PEG (percutaneous endoscopic gastrostomy) status Place at [facility] in January 2024 due to dysphagia, remains in place due to moderate to severe protein calorie malnutrition with approximately 50 lb weight loss since August 2023. History of total left knee replacement Port-A-Cath in place Left chest wall H/O right knee surgery (~11/2023) Washout due to septic arthritis November 2023 H/O: hysterectomy Family History Family History Father , black lung disease No problems noted. Mother , from OJI gangrene. No problems noted. Sibling Acute myocardial infarction Prednisolone adverse reaction Sibling No problems noted. Social History Social History Social History: Code status: DNR/DNI (per patient request) she states that she does not think that her would agree with this but this is her desire. 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 [employer] Gender identity (if verbalized by the patient): Male Spiritual care concerns: No Meds Home Medications and Allergies Home Medications ?Medication ?Instructions ?Recorded ?Confirmed ?Type polyethylene glycol 3350 17 17 g PO DAILY 07/09/24 04/01/25 History gram/dose oral powder (Miralax) metoprolol succinate 25 mg 25 mg PO QAM #60 tabs 07/22/24 04/01/25 Rx tablet,extended release 24 hr (Toprol XL) acetaminophen 325 mg tablet 650 mg (2 x 325 mg) PO Q4H PRN 12/17/24 04/01/25 Rx Mild Pain (1-3) Or Fever #120 tabs bisacodyl 5 mg tablet,delayed 10 mg (2 x 5 mg) PO QAM PRN 12/17/24 04/01/25 Rx release (Laxative (bisacodyl)) Constipation #30 tabs camphor 4 %-methyl salicylate 30 1 applic topical BID PRN 12/17/24 04/01/25 Rx %-menthol 10 % topical cream Muscle/Joint Pain #60 grams (Bengay Ultra Strength) cefuroxime axetil 250 mg tablet 500 mg (2 x 250 mg) PO 12/17/24 04/01/25 Rx Q12HR@1200,2100 #1 tablet ferrous sulfate 325 mg (65 mg 325 mg PO BIDWM #60 tabs 12/17/24 04/01/25 Rx iron) tablet,delayed release hydrocodone 5 mg-acetaminophen 325 1 tablet PO Q6H PRN Pain Rated 4-6 12/17/24 04/01/25 Rx mg tablet #30 tabs lidocaine 5 % topical patch 1 patch transdermal DAILY #30 ea 12/17/24 04/01/25 Rx (Lidoderm) magnesium oxide 400 mg (241.3 mg 200 mg (1/2 x 400 mg (241.3 mg 12/17/24 04/01/25 Rx magnesium) tablet magnesium)) PO DAILY #60 tabs sennosides 8.6 mg-docusate sodium 1 tab PO BID #60 tabs 12/17/24 04/01/25 Rx 50 mg tablet (Senokot-S) megestrol 40 mg tablet 40 mg PO BID 04/01/25 04/01/25 History tramadol 50 mg tablet 50 mg PO Q12H PRN pain 04/01/25 04/01/25 History Allergies Allergy/AdvReac Type Severity Reaction Status Date / Time amlodipine Allergy Severe Hives Verified 12/24/24 07:23 banana Allergy Severe throat Verified 12/24/24 07:23 Itching latex Allergy Severe Redness of Verified 12/24/24 07:23 Skin, baker lisinopril Allergy Severe Difficulty Verified 12/24/24 07:23 Breathing Penicillins Allergy Severe Rash Verified 12/24/24 07:23 pseudoephedrine Allergy Severe Difficulty Verified 12/24/24 07:23 Breathing tetracycline Allergy Severe Difficulty Verified 12/24/24 07:23 Breathing tree nut Allergy Severe Other Verified 12/24/24 07:23 dextromethorphan Allergy Intermediate Rash Verified 12/24/24 07:23 prednisone Allergy Unknown Other Verified 12/24/24 07:23 acetaminophen AdvReac Intermediate Nausea and Verified 12/24/24 07:23 Vomiting aspirin AdvReac Intermediate Nausea and Verified 12/24/24 07:23 Vomiting Sulfa (Sulfonamide AdvReac Mild Other Verified 12/24/24 07:23 Antibiotics) Vital Signs Vital Signs - 24 hr 04/01/25 10:13 04/01/25 14:39 04/01/25 16:55 Temperature 98.0 F Pulse Rate 84 74 78 Respiratory Rate 20 22 H 18 Blood Pressure 149/80 H 148/77 H 140/79 Pulse Oximetry 100 97 97 Oxygen Delivery Room Air 04/01/25 17:59 04/01/25 19:03 04/01/25 20:24 Temperature Pulse Rate 78 81 82 Respiratory Rate 24 H 19 15 Blood Pressure 136/70 141/72 H 129/66 Pulse Oximetry 96 98 98 Oxygen Delivery 04/01/25 21:34 04/01/25 22:19 Temperature 99.4 F Pulse Rate 95 95 Respiratory Rate 16 16 Blood Pressure 159/92 H Pulse Oximetry 97 97 Oxygen Delivery Room Air Exam Narrative: GENERAL: Elderly woman, lying in exam bed, NAD HEAD: Normocephalic, atraumatic. EYES: EOMI. ENT: Nares clear, no rhinorrhea or epistaxis. Mucous membranes moist. NECK: Supple. CHEST: Clear to auscultation. No respiratory distress. HEART: Regular rate and rhythm. No murmur heard. Normal peripheral pulses. ABDOMEN: Soft, nontender, nondistended, normal active bowel sounds. EXTREMITIES: 1+ bilateral lower extremity edema without overlying erythema. Well-healed surgical scars to bilateral knees. Right knee is larger than left with diffuse tenderness, no warmth or erythema. Full active and passive range of motion of bilateral knees. DP pulses 2+. Sensation intact throughout. SKIN: Warm, dry, no rash. NEURO: No focal deficits. Alert and oriented x3 H&P: Results Labs Labs: Short CBC 04/01/25 Range/Units 12:18 WBC 14.0 H (4.5-10.0) K/mm3 Hgb 8.6 L (12.0-15.0) g/dL Hct 27.7 L (37.0-47.0) % Plt Count 478 H (150-375) k/mm3 BMP 04/01/25 12:17 Sodium 134 L Potassium 4.0 Chloride 102 Carbon Dioxide 29 BUN 13 D Creatinine 0.52 L Glucose 104 Calcium 8.2 L Cardiac Enzymes 04/01/25 Range/Units 12:17 Troponin I < 0.012 (0.000-0.034) ng/mL Liver Function 04/01/25 Range/Units 12:17 Total Bilirubin 0.5 (0.2-1.3) mg/dL AST 29 (14-36) U/L ALT 11 (6-35) U/L Alkaline Phosphatase 106 (38-126) U/L Albumin 2.8 L (3.5-5.1) g/dL Assessment and Plan Assessment and plan (1) Hypertension: Qualifiers: Hypertension type: primary hypertension Qualified Code(s): I10 - Essential (primary) hypertension Code(s): I10 - Essential (primary) hypertension Status: Acute (2) Hyperlipidemia: Code(s): E78.5 - Hyperlipidemia, unspecified Status: Acute (3) Septic joint of right knee joint: Qualifiers: Septic arthritis organism: due to unspecified organism Qualified Code(s): M00.9 - Pyogenic arthritis, unspecified Code(s): M00.9 - Pyogenic arthritis, unspecified Status: Acute (4) Rheumatoid arthritis: Qualifiers: Rheumatoid arthritis location: unspecified site Rheumatoid factor presence: unspecified presence Qualified Code(s): M06.9 - Rheumatoid arthritis, unspecified Code(s): M06.9 - Rheumatoid arthritis, unspecified Status: Acute (5) Osteoarthritis of right knee: Code(s): M17.11 - Unilateral primary osteoarthritis, right knee Status: Acute (6) Effusion of right knee: Code(s): M25.461 - Effusion, right knee Status: Acute Plan Right knee septic arthritis/osteomyelitis Started on vancomycin slow infusion due to vancomycin infusion syndrome Can give Benadryl If continues to have a reaction will consider Zosyn and daptomycin Right knee x-ray:1. Persistent large right knee joint effusion with suggestion of some osteolysis with loss of a well-defined cortical margin along the articular surfaces of the patella and trochlea suspicious for osteomyelitis. Recommend diagnostic arthrocentesis. 2. Tricompartmental osteoarthritis with severe joint space narrowing in the medial and lateral compartments. Orthopedics is consulted s/p arthroscopy with irrigation and debridement on 12/[address] Bello .Per surgery, through unlikely this could be an RA flare or even gout (uric acid WNL) Possible I&D and washout Blood culture pending Orthopnea Echo am BNP Lasix 40 mg IV q.d. Titrate as needed Anemia Previously evaluated by Continue to monitor hemoglobin RA Patient do not follow-up with any chief technician Patient has not seen anyone for her RA in over a year. Patient was referred by her PCP to Dr. Gamez, no scheduled follow up as of yet. Discussed in depth with patient the importance of following up with the chief technician. Patient was previously receiving transfusions via port, however notes that she has not received infusions in over a year. Port last accessed February 2024. Patient states she was previously on MTX however was taken off 4 years ago, unsure why. She was previously on prednisone daily and stated that this helped significantly, however she stopped this herself about 1 year ago after her sister had a brain bleed while on prednisone. Patient denies any adverse reactions to herself while on prednisone. Patient states that her PCP is managing her port. Will consider prednisone if needed Topical analgesics include methanol creams and lidocaine patch Disposition: Will hold DVT prophylaxis due to possible surgical procedures Ultrasound lower extremity pending Hospitalist MIPS Advance Care Plan I have confirmed that the patient's Advanced Care Plan is present, code status is documented, or surrogate decision maker is listed in patient medical record.: Yes Medication Reconciliation I have utilized all available resources to obtain, update and review the patients current medications (includes all prescriptions, OTC, herbals, cannabis, and nutritional supplements).: Yes
[2025-04-01] MEDS: CENTRAL LINE FLUSH 10 ML IV PUSH (23:12)
--- NOTE | 2025-04-02 | ECHO_ITS ---
Patient Info Name: Tiesha Stock Age: 74 years : 1950 Gender: Female Ht: 65 in Wt: 128 lbs BSA: 1.63 m2 HR: 80 bpm BP: 118 / 62 mmHg Heart Rhythm: Sinus Rhythm Technical Quality: Good Exam Date: 04/02/2025 1:21 PM Patient Status: I Admit Date: 04/02/2025 Exam Type: CA echo doppler color flow Complete two-dimensional, color flow and Doppler transthoracic echocardiogram is performed. Staff Referring Physician: Abel Mejia Shellfish Grower: Imani Jackson Attending Provider: Evaristo Cantu Summary 1. Complete two-dimensional, color flow and Doppler transthoracic echocardiogram is performed. 2. There is normal biventricular size and systolic function. 3. There are no significant valvular abnormalities. 4. There is mild pulmonary hypertension. Left Ventricle The left ventricle is normal in size and systolic function. There is mild concentric left ventricular hypertrophy. The left ventricular ejection fraction is visually estimated to be 65-70%. Right Ventricle The right ventricle is normal in size and systolic function. Left Atria The left atrium is normal size. Right Atria The right atrium is normal size. Atrial Septum The atrial septum is normal. Aortic Valve The aortic valve is trileaflet and sclerotic but opens well. There is no aortic regurgitation. Pulmonic Valve The pulmonic valve is not well visualized. There is no color Doppler evidence of pulmonic valve regurgitation. Mitral Valve The mitral valve opens well. There is no mitral regurgitation. Tricuspid Valve The tricuspid valve is normal. There is trace tricuspid regurgitation. There is mild pulmonary hypertension. The PASP is calculated to be 45 mm Hg. Pericardium/Pleural Pericardium is normal in appearance with no evidence for significant pericardial effusion. Inferior Vena Cava Normal inferior vena cava with <50% collapse upon inspiration consistent with elevated right atrial pressure, 8 mmHg. Aorta The aortic root at the level of the sinus of Valsalva measures 3.0 cm in diameter. Left Ventricular Outflow Tract Name Value Normal LVOT 2D LVOT Diameter 2.0 cm LVOT Doppler LVOT Peak Velocity 176 cm/s LVOT Peak Gradient 12 mmHg LVOT Mean Gradient 6 mmHg LVOT VTI 32 cm LVOT VTI/AV VTI Ratio 0.7 LVOT Stroke Volume 96 ml LVOT CO 7.8 l/min LVOT CI 4.8 l/min/m2 Pulmonic Valve Name Value Normal RVOT Doppler RVOT Peak Velocity 83 cm/s RVOT Peak Gradient 3 mmHg PV Doppler PV Peak Velocity 132 cm/s PV Peak Gradient 7 mmHg Mitral Valve Name Value Normal MV Diastolic Function MV E Peak Velocity 62 cm/s MV A Peak Velocity 80 cm/s MV E/A 0.8 MV Decel Time (PW) 199 ms MV Annular TDI MV E/e' (Septal) 7.7 MV E/e' (Lateral) 5.8 MV E/e' (Average) 6.7 Tricuspid Valve Name Value Normal TV Regurgitation Doppler TR Peak Velocity 298 cm/s TR Peak Gradient 36 mmHg Estimated PAP/RSVP RA Pressure 8 mmHg <=5 PA Systolic Pressure 44 mmHg <36 RV Systolic Pressure 44 mmHg <36 TV Annular TDI TV Lateral Madelyn s' Velocity 14.5 cm/s >=9.5 Aortic Valve Name Value Normal AV Doppler AV Peak Velocity 239 cm/s AV Peak Gradient 23 mmHg AV Mean Gradient 11 mmHg AV VTI 44 cm AV Area (Cont Eq VTI) 2.2 cm2 >=3.0 AV Area (Cont Eq Thomas) 2.2 cm2 AV DI (Thomas) 0.74 AV Regurgitation 2D LVOT Area 3.0 cm2 Ventricles Name Value Normal LV Dimensions 2D/MM IVS Diastolic Thickness (2D) 1.4 cm 0.6-1.0 LVID Diastole (2D) 3.9 cm 3.8-5.2 LVIW Diastolic Thickness (2D) 1.2 cm 0.6-0.9 LVID Systole (2D) 2.4 cm 2.2-3.5 LVOT Diameter 2.0 cm LV Mass (2D Cubed) 184.52 g 67.00-162.00 LV Mass Index (2D Cubed) 113 g/m2 43-95 Relative Wall Thickness (2D) 0.64 <=0.42 LV Fractional Shortening/Ejection Fraction 2D/MM LV Fractional Shortening (2D) 38 % 27-45 LV EF (2D Teichholz) 68 % LV Diastolic Volume (4C MOD) 122 ml LV EF (4C MOD) 66 % LV Diastolic Volume (2C MOD) 144 ml LV EF (2C MOD) 72 % LV Diastolic Volume (BP MOD) 133 ml 46-106 LV Diastolic Volume Index (BP MOD) 82 ml/m2 29-61 LV Systolic Volume (BP MOD) 42 ml 14-42 LV Systolic Volume Index (BP MOD) 26 ml/m2 8-24 LV EF (BP MOD) 69 % 54-74 LV Diastolic Length (4C) 8.1 cm LV Systolic Length (4C) 5.9 cm LV Stroke Volume (4C MOD) 80 ml Atria Name Value Normal LA Dimensions LA Volume (4C A-L) 47 ml LA Volume (BP A-L) 53 ml RA Dimensions RA Systolic Major [place] Length (4C) 6.2 cm 2.2-2.8 RA Area (4C) 20.6 cm2 <=18.0 Report Signatures
[2025-04-02 01:36] VITALS: PULSE 94; RESP 20; O2SAT 94
[2025-04-02] MEDS: HYDROcodone/acetaminophen (*CRX) 5-325 MG TABLET 1 TAB PO ×2 (04:19→21:32)
[2025-04-02] MEDS: CENTRAL LINE FLUSH 10 ML IV PUSH ×3 (04:19→21:32)
[2025-04-02 04:57] LABS: Estimated CRCL calculation 56 ml/min; Estimated Glomerular Filt Rate > 60
[2025-04-02 05:00] VITALS: BP 118/62; PULSE 87; RESP 24; TEMP 36.9; O2SAT 99
[2025-04-02 05:07] LABS: NT Pro B Type Natriuretic Pept 1110 pg/mL (19.9-100)
--- NOTE | 2025-04-02 06:42 | PM.CNOR ---
Assessment and Plan Assessment and plan (1) Osteoarthritis of right knee: Code(s): M17.11 - Unilateral primary osteoarthritis, right knee Status: Acute Assessment and Plan: Patient has knee pain right. She had a very similar presentation in November. Nothing grew with cultures last visit. The arthroscopy gave some relief. Will await cultures. Discussion about RA last visit. History of Present Illness HPI Consult date: 04/02/25 Chief complaint: Right knee effusion Review of Systems Musculoskeletal: Musculoskeletal: Reports arthralgias, Reports joint swelling and Reports stiffness [facility] Past Medical History Medical History DVT (deep venous thrombosis) No longer on anticoagulation Chronic blood loss anemia History of seizure (~11/2023) Following surgery for septic arthritis. Osteopenia Moderate protein malnutrition Diastolic dysfunction Echo 04/2024 demonstrated EF of 60 65%, mildly increased left ventricular wall thickness, grade 1 diastolic dysfunction, right ventricular function normal, atrial septum appears aneurysmal, moderate aortic valve calcification, mild mitral valve regurgitation, mild tricuspid valve regurgitation Occult blood in stools Hyperlipidemia Hypertension Rheumatoid arthritis Surgical History Surgical History History of colonoscopy (07/17/24) Internal hemorrhoids, diverticulosis Normal esophagogastroduodenoscopy (EGD) (07/17/24) PEG (percutaneous endoscopic gastrostomy) status Place at [facility] in January 2024 due to dysphagia, remains in place due to moderate to severe protein calorie malnutrition with approximately 50 lb weight loss since August 2023. History of total left knee replacement Port-A-Cath in place Left chest wall H/O right knee surgery (~11/2023) [place] due to septic arthritis November 2023 H/O: hysterectomy Family History Family History Father , black lung disease No problems noted. Mother , from [place] gangrene. No problems noted. Sibling Acute myocardial infarction Prednisolone adverse reaction Sibling No problems noted. Social History Social History Social History: Code status: DNR/DNI (per patient request) she states that she does not think that her would agree with this but this is her desire. 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 [employer] Gender identity (if verbalized by the patient): Male Spiritual care concerns: No Meds Home Medications and Allergies Home Medications ?Medication ?Instructions ?Recorded ?Confirmed ?Type polyethylene glycol 3350 17 17 g PO DAILY 07/09/24 04/01/25 History gram/dose oral powder (Miralax) metoprolol succinate 25 mg 25 mg PO QAM #60 tabs 07/22/24 04/01/25 Rx tablet,extended release 24 hr (Toprol XL) acetaminophen 325 mg tablet 650 mg (2 x 325 mg) PO Q4H PRN 12/17/24 04/01/25 Rx Mild Pain (1-3) Or Fever #120 tabs bisacodyl 5 mg tablet,delayed 10 mg (2 x 5 mg) PO QAM PRN 12/17/24 04/01/25 Rx release (Laxative (bisacodyl)) Constipation #30 tabs camphor 4 %-methyl salicylate 30 1 applic topical BID PRN 12/17/24 04/01/25 Rx %-menthol 10 % topical cream Muscle/Joint Pain #60 grams (Bengay Ultra Strength) cefuroxime axetil 250 mg tablet 500 mg (2 x 250 mg) PO 12/17/24 04/01/25 Rx Q12HR@1200,2100 #1 tablet ferrous sulfate 325 mg (65 mg 325 mg PO BIDWM #60 tabs 12/17/24 04/01/25 Rx iron) tablet,delayed release hydrocodone 5 mg-acetaminophen 325 1 tablet PO Q6H PRN Pain Rated 4-6 12/17/24 04/01/25 Rx mg tablet #30 tabs lidocaine 5 % topical patch 1 patch transdermal DAILY #30 ea 12/17/24 04/01/25 Rx (Lidoderm) magnesium oxide 400 mg (241.3 mg 200 mg (1/2 x 400 mg (241.3 mg 12/17/24 04/01/25 Rx magnesium) tablet magnesium)) PO DAILY #60 tabs sennosides 8.6 mg-docusate sodium 1 tab PO BID #60 tabs 12/17/24 04/01/25 Rx 50 mg tablet (Senokot-S) megestrol 40 mg tablet 40 mg PO BID 04/01/25 04/01/25 History tramadol 50 mg tablet 50 mg PO Q12H PRN pain 04/01/25 04/01/25 History Allergies Allergy/AdvReac Type Severity Reaction Status Date / Time amlodipine Allergy Severe Hives Verified 12/24/24 07:23 banana Allergy Severe throat Verified 12/24/24 07:23 Itching latex Allergy Severe Redness of Verified 12/24/24 07:23 Skin, baker lisinopril Allergy Severe Difficulty Verified 12/24/24 07:23 Breathing Penicillins Allergy Severe Rash Verified 12/24/24 07:23 pseudoephedrine Allergy Severe Difficulty Verified 12/24/24 07:23 Breathing tetracycline Allergy Severe Difficulty Verified 12/24/24 07:23 Breathing tree nut Allergy Severe Other Verified 12/24/24 07:23 dextromethorphan Allergy Intermediate Rash Verified 12/24/24 07:23 prednisone Allergy Unknown Other Verified 12/24/24 07:23 acetaminophen AdvReac Intermediate Nausea and Verified 12/24/24 07:23 Vomiting aspirin AdvReac Intermediate Nausea and Verified 12/24/24 07:23 Vomiting Sulfa (Sulfonamide AdvReac Mild Other Verified 12/24/24 07:23 Antibiotics) Vital Signs Vital Signs - 24 hr 04/01/25 10:13 04/01/25 14:39 04/01/25 16:55 Temperature 98.0 F Pulse Rate 84 74 78 Respiratory Rate 20 22 H 18 Blood Pressure 149/80 H 148/77 H 140/79 Pulse Oximetry 100 97 97 Oxygen Delivery Room Air Fraction of Inspired Oxygen 04/01/25 17:59 04/01/25 19:03 04/01/25 20:24 Temperature Pulse Rate 78 81 82 Respiratory Rate 24 H 19 15 Blood Pressure 136/70 141/72 H 129/66 Pulse Oximetry 96 98 98 Oxygen Delivery Fraction of Inspired Oxygen 04/01/25 21:34 04/01/25 22:19 04/02/25 01:36 Temperature 99.4 F Pulse Rate 95 95 94 Respiratory Rate 16 16 20 Blood Pressure 159/92 H Pulse Oximetry 97 97 94 Oxygen Delivery Room Air Room Air Fraction of Inspired Oxygen 21 04/02/25 05:00 Temperature 98.5 F Pulse Rate 87 Respiratory Rate 24 H Blood Pressure 118/62 Pulse Oximetry 99 Oxygen Delivery Fraction of Inspired Oxygen Exam Narrative: Patient has pain and swelling in the right knee. She is chronically swollen painful. I have seen her in the office. I sent her back to [place] where the original surgery was performed. Unfortunately she continues to be symptomatic. Eyes: General: appearance normal, both eyes and all related structures Neck: Neck: supple Resp: Effort & Inspection: normal respiratory effort Cardio: Rate: regular rate Rhythm: regular rhythm Results Labs 04/01/25 12:18 04/02/25 04:24 Labs: Abnormal lab results 04/01/25 04/01/25 04/01/25 Range/Units 12:17 12:18 15:34 WBC 14.0 H (4.5-10.0) K/mm3 RBC 2.84 L (4.2-5.4) M/mm3 Hgb 8.6 L (12.0-15.0) g/dL Hct 27.7 L (37.0-47.0) % MCHC 31.0 L (32-36) g/dl RDW 17.2 H (11.5-14.5) % Plt Count 478 H (150-375) k/mm3 Immature Gran % (Auto) 6.1 H (0-0.5) % [place] % (Auto) 9.6 H (2.6-8.5) % Baso % (Auto) 1.3 H (0.2-1.2) % [facility] # (Auto) 1.4 H (0.1-0.6) K/mm3 Baso # (Auto) 0.2 H (0.0-0.1) K/mm3 Abs Immat Gran (auto) 0.86 H (0.00-0.031) K/mm3 Absolute Neuts (auto) 8.5 H (1.3-6.7) K/mm3 ESR > 140 H (0-20) mm/hr PT 15.4 H (11.1-14.7) Seconds Sodium 134 L (137-145) mmol/L Anion Gap 3 L (4-12) mmol/L Creatinine 0.52 L (0.7-1.0) mg/dL Calcium 8.2 L (8.4-10.2) mg/dL C-Reactive Protein 19.0 H (<1.0) mg/dL NT-Pro-B Natriuret Pep 690 H (19.9-100) pg/mL Albumin 2.8 L (3.5-5.1) g/dL Synovial Appearance Cloudy A (Clear) Synovial RBC 57504 H (0-0) /uL Synovial Nuc Cells 17347 H (0-200) /uL Synovial Neutrophils 93 H (0-25) % 05/14/ Range/Units 04:24 WBC (4.5-10.0) K/mm3 RBC (4.2-5.4) M/mm3 Hgb (12.0-15.0) g/dL Hct (37.0-47.0) % MCHC (32-36) g/dl RDW (11.5-14.5) % Plt Count (150-375) k/mm3 Immature Gran % (Auto) (0-0.5) % [facility] % (Auto) (2.6-8.5) % Baso % (Auto) (0.2-1.2) % [place] # (Auto) (0.1-0.6) K/mm3 Baso # (Auto) (0.0-0.1) K/mm3 Abs Immat Gran (auto) (0.00-0.031) K/mm3 Absolute Neuts (auto) (1.3-6.7) K/mm3 ESR (0-20) mm/hr PT (11.1-14.7) Seconds Sodium (137-145) mmol/L Anion Gap (4-12) mmol/L Creatinine 0.68 L (0.7-1.0) mg/dL Calcium (8.4-10.2) mg/dL C-Reactive Protein (<1.0) mg/dL NT-Pro-B Natriuret Pep 1110 H (19.9-100) pg/mL Albumin (3.5-5.1) g/dL Synovial Appearance (Clear) Synovial RBC (0-0) /uL Synovial Nuc Cells (0-200) /uL Synovial Neutrophils (0-25) % H & H 04/01/25 Range/Units 12:18 Hgb 8.6 L (12.0-15.0) g/dL Hct 27.7 L (37.0-47.0) % Coagulation 04/01/25 Range/Units 12:17 INR 1.2 All other labs normal.
[2025-04-02] MEDS: FERROUS SULFATE 325 MG TABLET DR PO ×2 (08:17→16:52)
[2025-04-02] MEDS: LIDOCAINE 5% PATCH 1 PATCH TRANSDERM (08:18)
[2025-04-02] MEDS: MAGNESIUM OXIDE 200 MG TABLET PO (08:18)
[2025-04-02] MEDS: SENNA/DOCUSATE SODIUM TABLET 1 TAB PO ×2 (08:18→16:52)
[2025-04-02 08:19] VITALS: PULSE 87
[2025-04-02] MEDS: METOPROLOL SUCCINATE EXT REL 25 MG TABCR PO (08:19)
[2025-04-02 08:27] VITALS: BP 106/58; PULSE 74
--- NOTE | 2025-04-02 08:53 | PM.IMPN ---
Progress Note: A&P Assessment and Plan (1) Hypertension: Qualifiers: Hypertension type: primary hypertension Qualified Code(s): I10 - Essential (primary) hypertension Code(s): I10 - Essential (primary) hypertension Status: Acute (2) Hyperlipidemia: Code(s): E78.5 - Hyperlipidemia, unspecified Status: Acute (3) Septic joint of right knee joint: Qualifiers: Septic arthritis organism: due to unspecified organism Qualified Code(s): M00.9 - Pyogenic arthritis, unspecified Code(s): M00.9 - Pyogenic arthritis, unspecified Status: Acute (4) Rheumatoid arthritis: Qualifiers: Rheumatoid arthritis location: unspecified site Rheumatoid factor presence: unspecified presence Qualified Code(s): M06.9 - Rheumatoid arthritis, unspecified Code(s): M06.9 - Rheumatoid arthritis, unspecified Status: Acute (5) Osteoarthritis of right knee: Code(s): M17.11 - Unilateral primary osteoarthritis, right knee Status: Acute (6) Effusion of right knee: Code(s): M25.461 - Effusion, right knee Status: Acute Plan Right knee septic arthritis/osteomyelitis Started on vancomycin slow infusion due to vancomycin infusion syndrome Can give Benadryl If continues to have a reaction will consider Zosyn and daptomycin Right knee x-ray:1. Persistent large right knee joint effusion with suggestion of some osteolysis with loss of a well-defined cortical margin along the articular surfaces of the patella and trochlea suspicious for osteomyelitis. Recommend diagnostic arthrocentesis. 2. Tricompartmental osteoarthritis with severe joint space narrowing in the medial and lateral compartments. Orthopedics rec to pending joint cultures for further management s/p arthroscopy with irrigation and debridement on 12/[address] Bello .Per surgery, through unlikely this could be an RA flare or even gout (uric acid WNL) Possible I&D and washout Blood culture pending Orthopnea Echo pending BNP 1,110 04/02, will trend Lasix 40 mg IV q.d. - started 04/02, ordered daily Titrate as needed Anemia Previously evaluated by Dr. Burk Continue to monitor hemoglobin 04/02 0000: 8.6, appears to be her baseline, continue to trend RA Patient do not follow-up with any clock mechanic Patient has not seen anyone for her RA in over a year. Patient was referred by her PCP to Dr. Gamez, no scheduled follow up as of yet. Discussed in depth with patient the importance of following up with the clock mechanic. Patient was previously receiving transfusions via port, however notes that she has not received infusions in over a year. Port last accessed February 2024. Patient states she was previously on MTX however was taken off 4 years ago, unsure why. She was previously on prednisone daily and stated that this helped significantly, however she stopped this herself about 1 year ago after her sister had a brain bleed while on prednisone. Patient denies any adverse reactions to herself while on prednisone. Patient states that her PCP is managing her port. Will consider prednisone if needed Topical analgesics include methanol creams and lidocaine patch Disposition: Will hold DVT prophylaxis due to possible surgical procedures Ultrasound lower extremity: IMPRESSION: 1. No deep venous thrombosis in either lower limb. 2. A few mildly prominent but still normal-sized likely reactive bilateral inguinal lymph nodes. Subjective Date/time seen: 04/02/25 1012 Interval history: Patient admitted for bilateral lower extremity edema times 2-3 days, right knee pain x1 month, and orthopnea. Patient was admitted yesterday (04/01) where a joint aspiration was obtained on her right knee in the emergency department. Patient with a history of grade 1 diastolic dysfunction but is not on any diuretics. Patient also has a history of DVT and is no longer on anticoagulants. Blood cultures were also obtained in the Emergency Department the preliminary results yesterday evening (04/01) were negative. Patient continues to deny shortness of breath chest pain any congestion today, she does however report mild orthopnea. Patient with a history of being evaluated in the emergency department in November of 2024 she was admitted for concerns of septic joint and was taken to the OR for washout with Dr. Bello. Since then she was discharged to [facility] and the cultures at that visit yielded no growth. ED work-up: Her lab work shows leukocytosis of 14 with an ESR greater than 140 and CRP of 19. Hemoglobin is at her baseline at 8.6. Bilateral venous duplex showed no DVT. BNP normal when age adjusted. Chest x-ray shows cardiomegaly, no acute findings. Orthopedics was consulted and per their visit this AM, they are waiting joint cultures for recommendations. Patient made aware of this and will continue to update her. patient remains hemodynamically stable. Review of Systems Review of Systems: All systems reviewed & are unremarkable except as noted in HPI and below Musculoskeletal: Comments: R knee pain Objective Data Vital Signs Vital Signs: Vital Signs - 24 hr 04/01/25 10:13 04/01/25 14:39 04/01/25 16:55 Temperature 98.0 F Pulse Rate 84 74 78 Respiratory Rate 20 22 H 18 Blood Pressure 149/80 H 148/77 H 140/79 Pulse Oximetry 100 97 97 Oxygen Delivery Room Air Fraction of Inspired Oxygen 04/01/25 17:59 04/01/25 19:03 04/01/25 20:24 Temperature Pulse Rate 78 81 82 Respiratory Rate 24 H 19 15 Blood Pressure 136/70 141/72 H 129/66 Pulse Oximetry 96 98 98 Oxygen Delivery Fraction of Inspired Oxygen 04/01/25 21:34 04/01/25 22:19 04/02/25 01:36 Temperature 99.4 F Pulse Rate 95 95 94 Respiratory Rate 16 16 20 Blood Pressure 159/92 H Pulse Oximetry 97 97 94 Oxygen Delivery Room Air Room Air Fraction of Inspired Oxygen 21 04/02/25 05:00 04/02/25 08:19 04/02/25 08:27 Temperature 98.5 F Pulse Rate 87 87 74 Respiratory Rate 24 H Blood Pressure 118/62 106/58 L Pulse Oximetry 99 Oxygen Delivery Fraction of Inspired Oxygen Intake/Output Intake/Output: Intake & Output 03/30/25 03/31/25 04/01/25 04/02/25 23:59 23:59 23:59 23:59 Intake Total 295.8 Balance 295.8 Meds/Results Medications: Active Medications Generic Name Dose Route Start Last Admin Trade Name Regisq PRN Reason Stop Dose Admin Acetaminophen 650 mg 04/01/25 23:21 Acetaminophen 325 Mg Tablet PO Q4H PRN Mild Pain (1-3) Or Fever Hydrocodone Bitart/Acetaminophen 1 tab 04/01/25 23:21 04/02/25 04:19 Hydrocodone/Acetaminophen (*Crx) 5-325 Mg Tablet PO 1 tab Q6H PRN Administration Pain Rated 4-6 Bisacodyl 10 mg 04/01/25 23:21 Bisacodyl 5 Mg Tablet Ec PO QAM PRN Constipation Ferrous Sulfate 325 mg 04/02/25 08:00 04/02/25 08:17 Ferrous Sulfate [address] PO 325 mg BIDWM MIROSLAVA Administration Heparin Sodium (Beef Lung) 50 units 04/02/25 09:00 04/02/25 08:20 Heparin Flush 50 Units/5 Ml Syringe IV PUSH 50 units QAM MIROSLAVA Administration Heparin Sodium (Beef Lung) 50 units 04/01/25 19:11 Heparin Flush 50 Units/5 Ml Syringe IV PUSH PRN PRN after intermittent infusion Heparin Sodium (Beef Lung) 50 units 04/01/25 19:11 Heparin Flush 50 Units/5 Ml Syringe IV PUSH PRN PRN after blood draws Heparin Sodium (Porcine) 500 units 04/01/25 19:11 Heparin Sodium Lock Flush 500 Units/5 Ml Syringe IV PUSH PRN PRN see comments below Vancomycin HCl 1,250 mg in 250 mls @ 166.667 mls/hr 04/02/25 13:00 Vancomycin 1,250 Mg/Ns 250 Ml IVPB Q18H MIROSLAVA Lidocaine 1 patch 04/02/25 09:00 04/02/25 08:18 Lidocaine 5% Patch TRANSDERM 1 patch DAILY MIROSLAVA Administration Magnesium Oxide 200 mg 04/02/25 09:00 04/02/25 08:18 Magnesium Oxide 200 Mg Tablet PO 200 mg DAILY MIROSLAVA Administration Megestrol Acetate 40 mg 04/02/25 09:00 04/02/25 08:19 Megestrol Acetate (*Chemo) 40 Mg Tablet PO Not Given BID [facility] Metoprolol Succinate 25 mg 04/02/25 09:00 04/02/25 08:19 Metoprolol Succinate Ext Rel 25 Mg Tabcr PO 25 mg QAM MIROSLAVA Administration Morphine Sulfate 2 mg 04/01/25 17:38 04/01/25 18:19 Morphine Sulfate (*Crx) 2 Mg/Ml Inj IV PUSH 2 mg Q2H PRN Administration Pain Rated 7-10 Perflutren Lipid Microsphere 0 ml 04/01/25 23:33 Perflutren Lipid Microspheres 1.5 Ml Vial Diluted To 10 Ml Total Volume IV PUSH 04/04/25 23:33 ONCE PRN adequate visualization Protocol Polyethylene Glycol 17 gm 04/02/25 09:00 04/02/25 08:19 Polyethylene Glycol 3350 17 Gm Powd.Pack PO Not Given DAILY MIROSLAVA Senna/Docusate Sodium 1 tab 04/02/25 09:00 04/02/25 08:18 Senna/Docusate Sodium Tablet PO 1 tab BID MIROSLAVA Administration Sodium Chloride 10 ml 04/01/25 22:00 04/02/25 04:19 Central Line Flush IV PUSH 10 ml Q8HR MIROSLAVA Administration Tramadol HCl 50 mg 04/01/25 23:21 Tramadol Hcl (*Crx) 50 Mg Tablet PO Q12H PRN Pain Rated 4-6 Radiology Results: ITS Impressions Venous Doppler Study 04/01/25 13:04 IMPRESSION: 1. No deep venous thrombosis in either lower limb. 2. A few mildly prominent but still normal-sized likely reactive bilateral inguinal lymph nodes. Chest X-Ray 04/01/25 13:34 IMPRESSION: No acute cardiopulmonary pathology. Cardiomegaly. Knee X-Ray 04/01/25 13:51 IMPRESSION: 1. Persistent large right knee joint effusion with suggestion of some osteolysis with loss of a well-defined cortical margin along the articular surfaces of the patella and trochlea suspicious for osteomyelitis. Recommend diagnostic arthrocentesis. 2. Tricompartmental osteoarthritis with severe joint space narrowing in the medial and lateral compartments. Labs Labs: Laboratory Results - last 24 hr 04/01/25 04/01/25 04/01/25 12:17 12:18 15:34 WBC 14.0 H RBC 2.84 L Hgb 8.6 L Hct 27.7 L MCV 97.5 MCH 30.3 MCHC 31.0 L RDW 17.2 H Plt Count 478 H MPV 8.4 Immature Gran % (Auto) 6.1 H Neut % (Auto) 60.5 Lymph % (Auto) 21.2 [place] % (Auto) 9.6 H Eos % (Auto) 1.3 Baso % (Auto) 1.3 H Lymph # (Auto) 2.97 [place] # (Auto) 1.4 H Eos # (Auto) 0.2 Baso # (Auto) 0.2 H Abs Immat Gran (auto) 0.86 H Absolute Neuts (auto) 8.5 H Absolute Nucleated RBC 0.000 Band Neutrophils % Not Reportable Nucleated RBC % 0.0 Platelet Estimate Slightly increased Hypochromasia 1+ Anisocytosis 1+ Schistocytes None seen ESR > 140 H PT 15.4 H INR 1.2 APTT 32.0 Sodium 134 L Potassium 4.0 Chloride 102 Carbon Dioxide 29 Anion Gap 3 L BUN 13 D Creatinine 0.52 L Estim Creat Clear Calc 72 Estimated GFR > 60 Glucose 104 Calcium 8.2 L Magnesium 1.8 Total Bilirubin 0.5 AST 29 ALT 11 Alkaline Phosphatase 106 Troponin I < 0.012 C-Reactive Protein 19.0 H NT-Pro-B Natriuret Pep 690 H Total Protein 8.0 Albumin 2.8 L Synovial Source Rt knee syn fluid Synovial Color Red Synovial Appearance Cloudy [place] RBC 15401 H Synovial Nuc Cells 64286 H Synovial Neutrophils 93 H Synovial Lymphocytes 5 Synovial Monocytes 1 Synovial Macrophages 1 Synovial Crystals None seen 04/02/25 04:24 WBC RBC Hgb Hct MCV MCH MCHC RDW Plt Count MPV Immature Gran % (Auto) Neut % (Auto) Lymph % (Auto) [place] % (Auto) Eos % (Auto) Baso % (Auto) Lymph # (Auto) [place] # (Auto) Eos # (Auto) Baso # (Auto) Abs Immat Gran (auto) Absolute Neuts (auto) Absolute Nucleated RBC Band Neutrophils % Nucleated RBC % Platelet Estimate Hypochromasia Anisocytosis Schistocytes ESR PT INR APTT Sodium Potassium Chloride Carbon Dioxide Anion Gap BUN Creatinine 0.68 L Estim Creat Clear Calc 56 Estimated GFR > 60 Glucose Calcium Magnesium Total Bilirubin AST ALT Alkaline Phosphatase Troponin I C-Reactive Protein NT-Pro-B Natriuret Pep 1110 H Total Protein Albumin Synovial Source Synovial Color Synovial Appearance Synovial RBC Synovial Nuc Cells Synovial Neutrophils Synovial Lymphocytes Synovial Monocytes Synovial Macrophages Synovial Crystals Quality VTE Prophylaxis VTE prophylaxis: mechanical ordered
[2025-04-02] MEDS: cefTRIAXone 2 GM/NS 100 ML 2 GM/100 ML BAG IVPB (09:49)
[2025-04-02 10:07] LABS: Basophils Absolute Auto 0.1 K/mm3 (0.0-0.1); Basophils Percent Auto 0.6 % (0.2-1.2); Eosinophils Absolute Auto 0.5 K/mm3 (0-0.3); Eosinophils Percent Auto 2.2 % (0-4.4); Hematocrit 28.5 % (37.0-47.0); Hemoglobin 8.9 g/dL (12.0-15.0); Immature Granulocyte Absolute 0.98 K/mm3 (0.00-0.031); Immature Granulocyte Percent A 4.4 % (0-0.5); Lymphocytes Absolute Auto 1.97 K/mm3 (0.9-3.2); Lymphocytes Percent Auto 8.8 % (18.3-44.2); Mean Corpuscular HGB Conc 31.2 g/dl (32-36); Mean Corpuscular Hemoglobin 30.8 pg (26-34); Mean Corpuscular Volume 98.6 fl (80-100); Mean Platelet Volume 8.8 fl (7.4-10.4); Monocytes Absolute Auto 0.7 K/mm3 (0.1-0.6); Monocytes Percent Auto 3.1 % (2.6-8.5); Neutrophils Percent Auto 80.9 % (45.5-73.1); Nucleated Red Blood Cells Perc 0.1 % (0.0-0.2); Platelet Count Result 534 k/mm3 (150-375); Red Blood Count 2.89 M/mm3 (4.2-5.4); Red Cell Distribution Width 17.6 % (11.5-14.5); White Blood Count 22.3 K/mm3 (4.5-10.0)
[2025-04-02 10:21] LABS: Alanine Aminotransferase 24 U/L (6-35); Albumin Level 2.6 g/dL (3.5-5.1); Alkaline Phosphatase 96 U/L (38-126); Anion Gap 7 mmol/L (4-12); Aspartate Amino Transferase 37 U/L (14-36); Bilirubin,Total 0.4 mg/dL (0.2-1.3); Blood Urea Nitrogen 18 mg/dL (7-17); Calcium 7.9 mg/dL (8.4-10.2); Carbon Dioxide 26 mmol/L (22-30); Chloride 104 mmol/L (98-107); Estimated CRCL calculation 49 ml/min; Estimated Glomerular Filt Rate > 60; Glucose 172 mg/dL (65-110); Potassium 3.7 mmol/L (3.4-5.0); Sodium 137 mmol/L (137-145)
[2025-04-02 10:28] LABS: Platelet Estimate Increased (Adequate)
[2025-04-02 10:31] LABS: Anisocytosis 1+; Schistocytes None Seen
[2025-04-02] MEDS: VANCOMYCIN 1,250 MG/NS 250 ML 1,250 MG/250 ML BAG 166.67 MG IVPB (13:49)
[2025-04-02 14:00] VITALS: BP 108/57; PULSE 72; RESP 20; TEMP 36.5; O2SAT 98
[2025-04-02] MEDS: FUROSEMIDE INJ 40 MG/4 ML VIAL IV PUSH (16:52)
[2025-04-02 21:41] VITALS: BP 114/51; PULSE 83; RESP 16; TEMP 37.4; O2SAT 100
[2025-04-03 06:00] VITALS: BP 120/57; PULSE 72; RESP 18; TEMP 37.1; O2SAT 100
[2025-04-03 06:04] LABS: Hematocrit 27.7 % (37.0-47.0); Hemoglobin 8.4 g/dL (12.0-15.0); Mean Corpuscular HGB Conc 30.3 g/dl (32-36); Mean Corpuscular Hemoglobin 30.4 pg (26-34); Mean Corpuscular Volume 100.4 fl (80-100); Mean Platelet Volume 8.6 fl (7.4-10.4); Platelet Count Result 420 k/mm3 (150-375); Red Blood Count 2.76 M/mm3 (4.2-5.4); Red Cell Distribution Width 17.6 % (11.5-14.5); White Blood Count 12.4 K/mm3 (4.5-10.0)
[2025-04-03 06:15] LABS: Alanine Aminotransferase 12 U/L (6-35); Albumin Level 2.5 g/dL (3.5-5.1); Alkaline Phosphatase 91 U/L (38-126); Anion Gap 3 mmol/L (4-12); Aspartate Amino Transferase 27 U/L (14-36); Bilirubin,Total 0.3 mg/dL (0.2-1.3); Blood Urea Nitrogen 17 mg/dL (7-17); Calcium 7.8 mg/dL (8.4-10.2); Carbon Dioxide 29 mmol/L (22-30); Chloride 104 mmol/L (98-107); Estimated CRCL calculation 66 ml/min; Estimated Glomerular Filt Rate > 60; Glucose 106 mg/dL (65-110); Potassium 3.5 mmol/L (3.4-5.0); Sodium 136 mmol/L (137-145)
[2025-04-03 06:24] LABS: NT Pro B Type Natriuretic Pept 440 pg/mL (19.9-100)
[2025-04-03 06:25] LABS: Vancomycin Trough 15.9 ug/mL (10.0-20.0)
[2025-04-03 07:02] LABS: Band Neutrophils Percent 19 % (0-6); Basophils Absolute Manual 0.12 K/mm3 (0.0-0.1); Basophils Percent Manual 1 % (0-1); Eosinophils Absolute Manual 0.24 K/mm3 (0.02-0.50); Eosinophils Percent Manual 2 % (0-4); Lymphocytes Absolute Manual 0.74 K/mm3 (1.1-4.5); Lymphocytes Percent Manual 6 % (18-44); Monocytes Absolute Manual 0.24 K/mm3 (0.1-0.90); Monocytes Percent Manual 2 % (3-9); Neutrophils Absolute Manual 11.03 K/mm3 (1.7-7.2); Neutrophils Percent Manual 70 % (46-73); Total Cells Counted 100
[2025-04-03 07:03] LABS: Anisocytosis 1+; Hypochromasia 2+; Platelet Estimate Increased (Adequate); Schistocytes None Seen
[2025-04-03] MEDS: VANCOMYCIN 1,250 MG/NS 250 ML 1,250 MG/250 ML BAG 100 MG IVPB (07:07)
[2025-04-03] MEDS: CENTRAL LINE FLUSH 10 ML IV PUSH ×3 (07:12→20:44)
--- NOTE | 2025-04-03 07:41 | PM.IMPN ---
Progress Note: A&P Assessment and Plan (1) Hypertension: Qualifiers: Hypertension type: primary hypertension Qualified Code(s): I10 - Essential (primary) hypertension Code(s): I10 - Essential (primary) hypertension Status: Acute (2) Hyperlipidemia: Code(s): E78.5 - Hyperlipidemia, unspecified Status: Acute (3) Septic joint of right knee joint: Qualifiers: Septic arthritis organism: due to unspecified organism Qualified Code(s): M00.9 - Pyogenic arthritis, unspecified Code(s): M00.9 - Pyogenic arthritis, unspecified Status: Acute (4) Rheumatoid arthritis: Qualifiers: Rheumatoid arthritis location: unspecified site Rheumatoid factor presence: unspecified presence Qualified Code(s): M06.9 - Rheumatoid arthritis, unspecified Code(s): M06.9 - Rheumatoid arthritis, unspecified Status: Acute (5) Osteoarthritis of right knee: Code(s): M17.11 - Unilateral primary osteoarthritis, right knee Status: Acute (6) Effusion of right knee: Code(s): M25.461 - Effusion, right knee Status: Acute Plan Right knee septic arthritis/osteomyelitis Started on vancomycin slow infusion due to vancomycin infusion syndrome - denies any further issues with this Can give Benadryl If continues to have a reaction will consider Zosyn and daptomycin Right knee x-ray:1. Persistent large right knee joint effusion with suggestion of some osteolysis with loss of a well-defined cortical margin along the articular surfaces of the patella and trochlea suspicious for osteomyelitis. Recommend diagnostic arthrocentesis. 2. Tricompartmental osteoarthritis with severe joint space narrowing in the medial and lateral compartments. Orthopedics rec to pending joint cultures for further management s/p arthroscopy with irrigation and debridement on 12/[address] Bello .Per surgery, through unlikely this could be an RA flare or even gout (uric acid WNL) Possible I&D and washout Blood culture repeat pending (first prelim was staph contaminate, pt already on Vanc) Orthopnea Echo = Summary 1. Complete two-dimensional, color flow and Doppler transthoracic echocardiogram is performed. 2. There is normal biventricular size and systolic function. 3. There are no significant valvular abnormalities. 4. There is mild pulmonary hypertension. The left ventricular ejection fraction is visually estimated to be 65-70%. BNP 1,110 04/02, 440 04/03, will trend Lasix 40 mg IV q.d. - started 04/02, ordered daily Titrate as needed Anemia Previously evaluated by Dr. Burk Continue to monitor hemoglobin 04/03 0545: 8.4, appears to be her baseline, continue to trend daily RA Patient do not follow-up with any administrative staff supervisor but states that she has an upcoming appt with one Patient has not seen anyone for her RA in over a year. Patient was referred by her PCP to Dr. Gamez, no scheduled follow up as of yet. Discussed in depth with patient the importance of following up with the administrative staff supervisor. Patient was previously receiving transfusions via port, however notes that she has not received infusions in over a year. Port last accessed February 2024. Patient states she was previously on MTX however was taken off 4 years ago, unsure why. She was previously on prednisone daily and stated that this helped significantly, however she stopped this herself about 1 year ago after her sister had a brain bleed while on prednisone. Patient denies any adverse reactions to herself while on prednisone. Patient states that her PCP is managing her port. Will consider prednisone if needed Topical analgesics include methanol creams and lidocaine patch -->Prelim blood cultures with gram + cocci cluster/staph contaminate, will repeat blood cultures today (Being treated with vanc already). Disposition: Will hold DVT prophylaxis due to possible surgical procedures pending joint cultures Ultrasound lower extremity: IMPRESSION: 1. No deep venous thrombosis in either lower limb. 2. A few mildly prominent but still normal-sized likely reactive bilateral inguinal lymph nodes. Subjective Date/time seen: 04/03/25 1000 Interval history: Patient admitted for bilateral lower extremity edema times 2-3 days, right knee pain x1 month, and orthopnea. Patient was admitted yesterday (04/01) where a joint aspiration was obtained on her right knee in the emergency department. Patient with a history of grade 1 diastolic dysfunction but is not on any diuretics. Patient also has a history of DVT and is no longer on anticoagulants. Blood cultures were also obtained in the Emergency Department the preliminary results yesterday evening (04/01) were negative. Patient continues to deny shortness of breath chest pain any congestion today, she does however report mild orthopnea. Patient with a history of being evaluated in the emergency department in November of 2024 she was admitted for concerns of septic joint and was taken to the OR for washout with Dr. Bello. Since then she was discharged to [facility] and the cultures at that visit yielded no growth. ED work-up: Her lab work shows leukocytosis of 14 with an ESR greater than 140 and CRP of 19. Hemoglobin is at her baseline at 8.6. Bilateral venous duplex showed no DVT. BNP normal when age adjusted. Chest x-ray shows cardiomegaly, no acute findings. Orthopedics was consulted and per their visit 04/02 AM, they are waiting joint cultures for recommendations. Patient made aware of this and will continue to update her. Patient remains hemodynamically stable. Exam did not change today, still awaiting joint cultures. Pt reporting stable on vanc. Review of Systems Review of Systems: All systems reviewed & are unremarkable except as noted in HPI and below Musculoskeletal: Comments: R knee pain Exam Const: General: comfortable and no acute distress HENMT: Face/Nose/Sinus: Normal nares present Mouth: Yes moist mucous membranes Eyes: General: appearance normal, both eyes and all related structures Sclera: sclerae normal Neck: Neck: supple and no JVD Carotids: no bruits Resp: Effort & Inspection: normal respiratory effort Auscultation: clear to auscultation bilaterally Cardio: Rate: regular rate Rhythm: regular rhythm GI: Inspection: non-distended Auscultation: normal bowel sounds Skin: General skin exam: normal color and no rashes or lesions noted Wounds: no wounds Neuro: Speech: normal speech Motor exam (neuro): Normal motor muscle tone present throughout Sensory Exam: normal sensation Extrem: General: normal to inspection Psych: Mental Status: mental status grossly normal Affect: normal affect Objective Data Vital Signs Vital Signs: Vital Signs - 24 hr 04/02/25 08:00 04/02/25 08:19 04/02/25 08:27 Temperature Pulse Rate 87 74 Respiratory Rate Blood Pressure 106/58 L Pulse Oximetry Oxygen Delivery Room Air 04/02/25 14:00 04/02/25 14:32 04/02/25 21:41 Temperature 97.7 F 99.3 F Pulse Rate 72 83 Respiratory Rate 20 16 Blood Pressure 108/57 L 114/51 L Pulse Oximetry 98 100 Oxygen Delivery Room Air 04/03/25 06:00 Temperature 98.7 F Pulse Rate 72 Respiratory Rate 18 Blood Pressure 120/57 L Pulse Oximetry 100 Oxygen Delivery Intake/Output Intake/Output: Intake & Output 05/12/25 05/13/25 05/14/25 05/15/25 23:59 23:59 23:59 23:59 Intake Total 295.8 1054 100 Output Total 1050 150 Balance 295.8 4 -50 Meds/Results Medications: Active Medications Generic Name Dose Route Start Last Admin Trade Name Freq PRN Reason Stop Dose Admin Acetaminophen 650 mg 04/01/25 23:21 Acetaminophen 325 Mg Tablet PO Q4H PRN Mild Pain (1-3) Or Fever Hydrocodone Bitart/Acetaminophen 1 tab 04/01/25 23:21 04/02/25 21:32 Hydrocodone/Acetaminophen (*Crx) 5-325 Mg Tablet PO 1 tab Q6H PRN Administration Pain Rated 4-6 Bisacodyl 10 mg 04/01/25 23:21 Bisacodyl 5 Mg Tablet Ec PO QAM PRN Constipation Ferrous Sulfate 325 mg 04/02/25 08:00 04/02/25 16:52 Ferrous Sulfate [address] PO 325 mg BIDWM MIROSLAVA Administration Furosemide 40 mg 04/02/25 16:20 04/02/25 16:52 Furosemide Inj 40 Mg/4 Ml Vial IV PUSH 40 mg DAILY MIROSLAVA Administration Heparin Sodium (Beef Lung) 50 units 04/02/25 09:00 04/02/25 08:20 Heparin Flush 50 Units/5 Ml Syringe IV PUSH 50 units QAM MIROSLAVA Administration Heparin Sodium (Beef Lung) 50 units 04/01/25 19:11 04/02/25 10:28 Heparin Flush 50 Units/5 Ml Syringe IV PUSH 50 units PRN PRN Administration after intermittent infusion Heparin Sodium (Beef Lung) 50 units 04/01/25 19:11 Heparin Flush 50 Units/5 Ml Syringe IV PUSH PRN PRN after blood draws Heparin Sodium (Porcine) 500 units 04/01/25 19:11 Heparin Sodium Lock Flush 500 Units/5 Ml Syringe IV PUSH PRN PRN see comments below Vancomycin HCl 1,250 mg in 250 mls @ 166.667 mls/hr 04/02/25 13:00 04/03/25 07:07 Vancomycin 1,250 Mg/Ns 250 Ml IVPB 100 mls/hr Q18H MIROSLAVA Administration Ceftriaxone Sodium 2 gm in 100 mls @ 200 mls/hr 04/02/25 09:30 04/02/25 09:49 Rocephin 2 Gm/Ns 100 Ml IVPB 200 mls/hr DAILY MIROSLAVA Administration Lidocaine 1 patch 04/02/25 09:00 04/02/25 08:18 Lidocaine 5% Patch TRANSDERM 1 patch DAILY MIROSLAVA Administration Magnesium Oxide 200 mg 04/02/25 09:00 04/02/25 08:18 Magnesium Oxide 200 Mg Tablet PO 200 mg DAILY MIROSLAVA Administration Megestrol Acetate 40 mg 04/02/25 09:00 04/02/25 16:52 Megestrol Acetate (*Chemo) 40 Mg Tablet PO Not Given BID MIROSLAVA Metoprolol Succinate 25 mg 04/02/25 09:00 04/02/25 08:19 Metoprolol Succinate Ext Rel 25 Mg Tabcr PO 25 mg QAM MIROSLAVA Administration Morphine Sulfate 2 mg 04/01/25 17:38 04/01/25 18:19 Morphine Sulfate (*Crx) 2 Mg/Ml Inj IV PUSH 2 mg Q2H PRN Administration Pain Rated 7-10 Perflutren Lipid Microsphere 0 ml 04/01/25 23:33 Perflutren Lipid Microspheres 1.5 Ml Vial Diluted To 10 Ml Total Volume IV PUSH 04/04/25 23:33 ONCE PRN adequate visualization Protocol Polyethylene Glycol 17 gm 04/02/25 09:00 04/02/25 08:19 Polyethylene Glycol 3350 17 Gm Powd.Pack PO Not Given DAILY MIROSLAVA Senna/Docusate Sodium 1 tab 04/02/25 09:00 04/02/25 16:52 Senna/Docusate Sodium Tablet PO 1 tab BID MRIOSLAVA Administration Sodium Chloride 10 ml 04/01/25 22:00 04/03/25 07:12 Central Line Flush IV PUSH 10 ml Q8HR MIROSLAVA Administration Tramadol HCl 50 mg 04/01/25 23:21 Tramadol Hcl (*Crx) 50 Mg Tablet PO Q12H PRN Pain Rated 4-6 Radiology Results: ITS Impressions Venous Doppler Study 04/01/25 13:04 IMPRESSION: 1. No deep venous thrombosis in either lower limb. 2. A few mildly prominent but still normal-sized likely reactive bilateral inguinal lymph nodes. Chest X-Ray 04/01/25 13:34 IMPRESSION: No acute cardiopulmonary pathology. Cardiomegaly. Knee X-Ray 04/01/25 13:51 IMPRESSION: 1. Persistent large right knee joint effusion with suggestion of some osteolysis with loss of a well-defined cortical margin along the articular surfaces of the patella and trochlea suspicious for osteomyelitis. Recommend diagnostic arthrocentesis. 2. Tricompartmental osteoarthritis with severe joint space narrowing in the medial and lateral compartments. Labs Labs: Laboratory Results - last 24 hr 04/02/25 04/03/25 09:51 05:55 WBC 22.3 H 12.4 H RBC 2.89 L 2.76 L Hgb 8.9 L 8.4 L Hct 28.5 L 27.7 L MCV 98.6 100.4 H MCH 30.8 30.4 MCHC 31.2 L 30.3 L RDW 17.6 H 17.6 H Plt Count 534 H 420 H MPV 8.8 8.6 Immature Gran % (Auto) 4.4 H Not Reportable Neut % (Auto) 80.9 H Not Reportable Lymph % (Auto) 8.8 L Not Reportable [place] % (Auto) 3.1 Not Reportable Eos % (Auto) 2.2 Not Reportable Baso % (Auto) 0.6 Not Reportable Lymph # (Auto) 1.97 Not Reportable [place] # (Auto) 0.7 H Not Reportable Eos # (Auto) 0.5 H Not Reportable Baso # (Auto) 0.1 Not Reportable Abs Immat Gran (auto) 0.98 H Not Reportable Absolute Neuts (auto) 18.0 H Not Reportable Absolute Nucleated RBC 0.020 H Not Reportable Total Counted 100 Neutrophils % (Manual) 70 Band Neutrophils % Not Reportable 19 H Lymphocytes % (Manual) 6 L Monocytes % (Manual) 2 L Eosinophils % (Manual) 2 Basophils % (Manual) 1 Nucleated RBC % 0.1 Not Reportable Abs Neuts (Manual) 11.03 H Abs Lymphs (Manual) 0.74 L Abs Monocytes (Manual) 0.24 Absolute Eos (Manual) 0.24 Abs Basophils (Manual) 0.12 H Platelet Estimate Increased Increased Hypochromasia 2+ Anisocytosis 1+ 1+ Schistocytes None seen None seen Sodium 137 136 L Potassium 3.7 3.5 Chloride 104 104 Carbon Dioxide 26 29 Anion Gap 7 3 L BUN 18 H 17 Creatinine 0.79 0.57 L Estim Creat Clear Calc 49 66 Estimated GFR > 60 > 60 Glucose 172 H 106 Calcium 7.9 L 7.8 L Total Bilirubin 0.4 0.3 AST 37 H 27 ALT 24 12 Alkaline Phosphatase 96 91 NT-Pro-B Natriuret Pep 440 H Total Protein 7.0 7.0 Albumin 2.6 L 2.5 L Vancomycin Trough 15.9 Quality VTE Prophylaxis VTE prophylaxis: mechanical ordered
[2025-04-03 08:55] VITALS: PULSE 72
[2025-04-03] MEDS: SENNA/DOCUSATE SODIUM TABLET 1 TAB PO ×2 (08:55→17:17)
[2025-04-03] MEDS: MAGNESIUM OXIDE 200 MG TABLET PO (08:55)
[2025-04-03] MEDS: METOPROLOL SUCCINATE EXT REL 25 MG TABCR PO (08:55)
[2025-04-03] MEDS: FERROUS SULFATE 325 MG TABLET DR PO ×2 (08:55→17:17)
[2025-04-03] MEDS: traMADol HCL (*CRX) 50 MG TABLET PO ×2 (08:55→20:46)
[2025-04-03] MEDS: FUROSEMIDE INJ 40 MG/4 ML VIAL IV PUSH (08:56)
[2025-04-03] MEDS: LIDOCAINE 5% PATCH 1 PATCH TRANSDERM (08:56)
[2025-04-03] MEDS: cefTRIAXone 2 GM/NS 100 ML 2 GM/100 ML BAG IVPB (10:08)
[2025-04-03 10:45] LABS: Rheumatoid Factor > 120.0 IU/ML (<12)
--- NOTE | 2025-04-03 11:17 | PM.PNORT ---
Progress Note: A&P Assessment and Plan (1) Effusion of right knee: Code(s): M25.461 - Effusion, right knee Status: Acute Assessment and Plan: Patient is here, hospital day #2. She has a knee effusion. She was treated for almost identical symptoms or problems 4 months ago. Despite the fact she did grow anything I scoped the knee with the presumption of a possible infection, and she got better for a period of time. She returns with nearly identical symptoms and labs. Nothing is growing from her knee aspiration. Staph hominis is growing from the blood which makes me wonder about but potentially a contaminant. I do not know that the knee is infected. It does not look grossly red at this time. Although it is moderately swollen. I have ordered rheumatologic labs. Will also begin her on steroids which should help with the inflammation she has. I am reluctant to scope her knee left she does have an active infection. I have discussed this with the patient. Subjective Subjective Date/Time Seen: 04/03/25 11:17 Principal diagnosis: Knee Effusion Interval history: Patient is here hospital day 2. She has a knee effusion. She was treated for almost identical symptoms or problems 4 months ago. Despite the fact she did grow anything I scoped the knee with resumption of a possible infection and she got better for a period time. She returns is nearly identical symptoms and labs. Review of Systems Review of Systems: All systems reviewed & are unremarkable except as noted in HPI and below Exam Narrative: Patient has pain and swelling in the right knee. She is chronically swollen painful. I have seen her in the office. I sent her back to [place] where the original surgery was performed. Unfortunately she continues to be symptomatic. Eyes: General: appearance normal, both eyes and all related structures Neck: Neck: supple Resp: Effort & Inspection: normal respiratory effort Cardio: Rate: regular rate Rhythm: regular rhythm Objective Data Vital Signs Vital Signs: Vital Signs - 24 hr 04/02/25 14:00 04/02/25 14:32 04/02/25 21:41 Temperature 97.7 F 99.3 F Pulse Rate 72 83 Respiratory Rate 20 16 Blood Pressure 108/57 L 114/51 L Pulse Oximetry 98 100 Oxygen Delivery Room Air 04/03/25 06:00 04/03/25 08:55 Temperature 98.7 F Pulse Rate 72 72 Respiratory Rate 18 Blood Pressure 120/57 L Pulse Oximetry 100 Oxygen Delivery Intake/Output Intake/Output: Intake & Output 03/31/25 04/01/25 04/02/25 04/03/25 23:59 23:59 23:59 23:59 Intake Total 295.8 1154 220 Output Total 1050 150 Balance 295.8 104 70 Meds/Results Medications: Active Medications Generic Name Dose Route Start Last Admin Trade Name Freq PRN Reason Stop Dose Admin Acetaminophen 650 mg 04/01/25 23:21 Acetaminophen 325 Mg Tablet PO Q4H PRN Mild Pain (1-3) Or Fever Hydrocodone Bitart/Acetaminophen 1 tab 04/01/25 23:21 04/02/25 21:32 Hydrocodone/Acetaminophen (*Crx) 5-325 Mg Tablet PO 1 tab Q6H PRN Administration Pain Rated 4-6 Bisacodyl 10 mg 04/01/25 23:21 Bisacodyl 5 Mg Tablet Ec PO QAM PRN Constipation Ferrous Sulfate 325 mg 04/02/25 08:00 04/03/25 08:55 Ferrous Sulfate [address] PO 325 mg BIDWM MIROSLAVA Administration Furosemide 40 mg 04/02/25 16:20 04/03/25 08:56 Furosemide Inj 40 Mg/4 Ml Vial IV PUSH 40 mg DAILY MIROSLAVA Administration Heparin Sodium (Beef Lung) 50 units 04/02/25 09:00 04/03/25 08:54 Heparin Flush 50 Units/5 Ml Syringe IV PUSH Not Given QAM MIROSLAVA Heparin Sodium (Beef Lung) 50 units 04/01/25 19:11 04/03/25 10:56 Heparin Flush 50 Units/5 Ml Syringe IV PUSH 50 units PRN PRN Administration after intermittent infusion Heparin Sodium (Beef Lung) 50 units 04/01/25 19:11 Heparin Flush 50 Units/5 Ml Syringe IV PUSH PRN PRN after blood draws Heparin Sodium (Porcine) 500 units 04/01/25 19:11 Heparin Sodium Lock Flush 500 Units/5 Ml Syringe IV PUSH PRN PRN see comments below Vancomycin HCl 1,250 mg in 250 mls @ 166.667 mls/hr 04/02/25 13:00 04/03/25 07:07 Vancomycin 1,250 Mg/Ns 250 Ml IVPB 100 mls/hr Q18H MIROSLAVA Administration Ceftriaxone Sodium 2 gm in 100 mls @ 200 mls/hr 04/02/25 09:30 04/03/25 10:08 Rocephin 2 Gm/Ns 100 Ml IVPB 200 mls/hr DAILY MIROSLAVA Administration Lidocaine 1 patch 04/02/25 09:00 04/03/25 08:56 Lidocaine 5% Patch TRANSDERM 1 patch DAILY MIROSLAVA Administration Magnesium Oxide 200 mg 04/02/25 09:00 04/03/25 08:55 Magnesium Oxide 200 Mg Tablet PO 200 mg DAILY MIROSLAVA Administration Megestrol Acetate 40 mg 04/02/25 09:00 04/03/25 08:54 Megestrol Acetate (*Chemo) 40 Mg Tablet PO Not Given BID [facility] Metoprolol Succinate 25 mg 04/02/25 09:00 04/03/25 08:55 Metoprolol Succinate Ext Rel 25 Mg Tabcr PO 25 mg QAM [facility] Administration Morphine Sulfate 2 mg 04/01/25 17:38 04/01/25 18:19 Morphine Sulfate (*Crx) 2 Mg/Ml Inj IV PUSH 2 mg Q2H PRN Administration Pain Rated 7-10 Perflutren Lipid Microsphere 0 ml 04/01/25 23:33 Perflutren Lipid Microspheres 1.5 Ml Vial Diluted To 10 Ml Total Volume IV PUSH 04/04/25 23:33 ONCE PRN adequate visualization Protocol Polyethylene Glycol 17 gm 04/02/25 09:00 04/03/25 08:54 Polyethylene Glycol 3350 17 Gm Powd.Pack PO Not Given DAILY [facility] Prednisone 20 mg 04/03/25 11:15 Prednisone 20 Mg Tablet PO DAILY@0800 [facility] Senna/Docusate Sodium 1 tab 04/02/25 09:00 04/03/25 08:55 Senna/Docusate Sodium Tablet PO 1 tab BID [facility] Administration Sodium Chloride 10 ml 04/01/25 22:00 04/03/25 07:12 Central Line Flush IV PUSH 10 ml Q8HR [facility] Administration Tramadol HCl 50 mg 04/01/25 23:21 04/03/25 08:55 Tramadol Hcl (*Crx) 50 Mg Tablet PO 50 mg Q12H PRN Administration Pain Rated 4-6 Radiology Results: ITS Impressions Venous Doppler Study 04/01/25 13:04 IMPRESSION: 1. No deep venous thrombosis in either lower limb. 2. A few mildly prominent but still normal-sized likely reactive bilateral inguinal lymph nodes. Chest X-Ray 04/01/25 13:34 IMPRESSION: No acute cardiopulmonary pathology. Cardiomegaly. Knee X-Ray 04/01/25 13:51 IMPRESSION: 1. Persistent large right knee joint effusion with suggestion of some osteolysis with loss of a well-defined cortical margin along the articular surfaces of the patella and trochlea suspicious for osteomyelitis. Recommend diagnostic arthrocentesis. 2. Tricompartmental osteoarthritis with severe joint space narrowing in the medial and lateral compartments. Labs Labs: Laboratory Results - last 24 hr 04/03/25 04/03/25 05:55 10:07 WBC 12.4 H RBC 2.76 L Hgb 8.4 L Hct 27.7 L MCV 100.4 H MCH 30.4 MCHC 30.3 L RDW 17.6 H Plt Count 420 H MPV 8.6 Immature Gran % (Auto) Not Reportable Neut % (Auto) Not Reportable Lymph % (Auto) Not Reportable Dickinson % (Auto) Not Reportable Eos % (Auto) Not Reportable Baso % (Auto) Not Reportable Lymph # (Auto) Not Reportable Dickinson # (Auto) Not Reportable Eos # (Auto) Not Reportable Baso # (Auto) Not Reportable Abs Immat Gran (auto) Not Reportable Absolute Neuts (auto) Not Reportable Absolute Nucleated RBC Not Reportable Total Counted 100 Neutrophils % (Manual) 70 Band Neutrophils % 19 H Lymphocytes % (Manual) 6 L Monocytes % (Manual) 2 L Eosinophils % (Manual) 2 Basophils % (Manual) 1 Nucleated RBC % Not Reportable Abs Neuts (Manual) 11.03 H Abs Lymphs (Manual) 0.74 L Abs Monocytes (Manual) 0.24 Absolute Eos (Manual) 0.24 Abs Basophils (Manual) 0.12 H Platelet Estimate Increased Hypochromasia 2+ Anisocytosis 1+ Schistocytes None seen Sodium 136 L Potassium 3.5 Chloride 104 Carbon Dioxide 29 Anion Gap 3 L BUN 17 Creatinine 0.57 L Estim Creat Clear Calc 66 Estimated GFR > 60 Glucose 106 Calcium 7.8 L Total Bilirubin 0.3 AST 27 ALT 12 Alkaline Phosphatase 91 NT-Pro-B Natriuret Pep 440 H Total Protein 7.0 Albumin 2.5 L Vancomycin Trough 15.9 Rheumatoid Factor > 120.0
[2025-04-03] MEDS: predniSONE 20 MG TABLET PO (11:55)
[2025-04-03 12:27] LABS: Uric Acid 6.6 mg/dL (2.5-7.5)
[2025-04-03 13:45] VITALS: BP 110/62; PULSE 78; RESP 18; TEMP 36.5; O2SAT 100
[2025-04-03 20:56] VITALS: BP 126/60; PULSE 76; RESP 16; TEMP 36.8; O2SAT 100
[2025-04-03 21:50] VITALS: O2SAT 100
[2025-04-04] MEDS: VANCOMYCIN 1,250 MG/NS 250 ML 1,250 MG/250 ML BAG 100 MG IVPB (00:37)
[2025-04-04 06:00] VITALS: BP 139/69; PULSE 66; RESP 20; TEMP 36.5; O2SAT 100
[2025-04-04] MEDS: CENTRAL LINE FLUSH 10 ML IV PUSH (06:21)
--- NOTE | 2025-04-04 07:08 | P.PNIM_ITS ---
Progress Note: A&P Assessment and Plan (1) Hypertension: Qualifiers: Hypertension type: primary hypertension Qualified Code(s): I10 - Essential (primary) hypertension Code(s): I10 - Essential (primary) hypertension Status: Acute (2) Hyperlipidemia: Code(s): E78.5 - Hyperlipidemia, unspecified Status: Acute (3) Septic joint of right knee joint: Qualifiers: Septic arthritis organism: due to unspecified organism Qualified Code(s): M00.9 - Pyogenic arthritis, unspecified Code(s): M00.9 - Pyogenic arthritis, unspecified Status: Acute (4) Rheumatoid arthritis: Qualifiers: Rheumatoid arthritis location: unspecified site Rheumatoid factor presence: unspecified presence Qualified Code(s): M06.9 - Rheumatoid arthritis, unspecified Code(s): M06.9 - Rheumatoid arthritis, unspecified Status: Acute (5) Osteoarthritis of right knee: Code(s): M17.11 - Unilateral primary osteoarthritis, right knee Status: Acute (6) Effusion of right knee: Code(s): M25.461 - Effusion, right knee Status: Acute Plan Right knee septic arthritis/osteomyelitis Started on vancomycin slow infusion due to vancomycin infusion syndrome - denies any further issues with this Can give Benadryl If continues to have a reaction will consider Zosyn and daptomycin Right knee x-ray:1. Persistent large right knee joint effusion with suggestion of some osteolysis with loss of a well-defined cortical margin along the articular surfaces of the patella and trochlea suspicious for osteomyelitis. Recommend diagnostic arthrocentesis. 2. Tricompartmental osteoarthritis with severe joint space narrowing in the medial and lateral compartments. Orthopedics rec to pending joint cultures for further management s/p arthroscopy with irrigation and debridement on 12/[address] Bello. Per surgery, through unlikely this could be an RA flare or even gout (uric acid WNL) Possible I&D and washout Blood culture repeat pending (first prelim was staph contaminate, pt already on Vanc) Rheum factor resulted today at >120, upcoming rheum outpt visit scheduled per pt. Continue daily prednisone, acetaminophen PRN, methanol creams, and lidocaine patch. Orthopnea Echo = Summary 1. Complete two-dimensional, color flow and Doppler transthoracic echocardiogram is performed. 2. There is normal biventricular size and systolic function. 3. There are no significant valvular abnormalities. 4. There is mild pulmonary hypertension. The left ventricular ejection fraction is visually estimated to be 65-70%. BNP 1,110 04/02, 440 04/03, will trend Lasix 40 mg IV q.d. - started 04/02, ordered daily Titrate as needed Pt denies any acute sx. Anemia Previously evaluated by Dr. Burk Continue to monitor hemoglobin 04/04: 8.0, appears to be her baseline, continue to trend daily RA Patient do not follow-up with any ballistics professor but states that she has an upcoming appt with one Patient has not seen anyone for her RA in over a year. Patient was referred by her PCP to Dr. Gamez. Discussed in depth with patient the importance of following up with the ballistics professor. Patient was previously receiving transfusions via port, however notes that she has not received infusions in over a year. Port last accessed February 2024. Patient states she was previously on MTX however was taken off 4 years ago, unsure why. She was previously on prednisone daily and stated that this helped significantly, however she stopped this herself about 1 year ago after her sister had a brain bleed while on prednisone. Patient denies any adverse reactions to herself while on prednisone. Patient states that her PCP is managing her port. Will consider prednisone at D/C if needed Topical analgesics include methanol creams and lidocaine patch -->Prelim blood cultures with gram + cocci cluster/staph contaminate, will repeat blood cultures today (Being treated with vanc already). Disposition: Will hold DVT prophylaxis due to possible surgical procedures pending joint cultures Ultrasound lower extremity: IMPRESSION: 1. No deep venous thrombosis in either lower limb. 2. A few mildly prominent but still normal-sized likely reactive bilateral inguinal lymph nodes. Subjective Date/time seen: 04/04/25 0855 Interval history: Patient admitted for bilateral lower extremity edema times 2-3 days, right knee pain x1 month, and orthopnea. Patient was admitted yesterday (04/01) where a joint aspiration was obtained on her right knee in the emergency department. Patient with a history of grade 1 diastolic dysfunction but is not on any diuretics. Patient also has a history of DVT and is no longer on anticoagulants. Blood cultures were also obtained in the Emergency Department the preliminary results yesterday evening (04/01) were negative. Patient continues to deny shortness of breath chest pain any congestion today, she does however report mild orthopnea. Patient with a history of being evaluated in the emergency department in November of 2024 she was admitted for concerns of septic joint and was taken to the OR for washout with Dr. Bello. Since then she was discharged to [facility] and the cultures at that visit yielded no growth. ED work-up: Her lab work shows leukocytosis of 14 with an ESR greater than 140 and CRP of 19. Hemoglobin is at her baseline at 8.6. Bilateral venous duplex showed no DVT. BNP normal when age adjusted. Chest x-ray shows cardiomegaly, no acute findings. Orthopedics was consulted and per their visit 5 AM, they are waiting joint cultures for recommendations. Patient made aware of this and will continue to update her. Patient remains hemodynamically stable. Exam did not change today, still awaiting joint cultures. Pt reporting stable on vanc. Pt with rheumatoid factor >120 today, pt with an upcoming rheum appt. Pt c/o mild wrist tingling/pain today. Will continue prednisone 20mg and acetaminophen PRN. Review of Systems Review of Systems: All systems reviewed & are unremarkable except as noted in HPI and below Musculoskeletal: Comments: wrist tingling/pain Exam Const: General: comfortable and no acute distress HENMT: Face/Nose/Sinus: Normal nares present Mouth: Yes moist mucous membranes Eyes: General: appearance normal, both eyes and all related structures Sclera: sclerae normal Neck: Neck: supple and no JVD Carotids: no bruits Resp: Effort & Inspection: normal respiratory effort Auscultation: clear to auscultation bilaterally Cardio: Rate: regular rate Rhythm: regular rhythm GI: Inspection: non-distended Auscultation: normal bowel sounds Skin: General skin exam: normal color and no rashes or lesions noted Wounds: no wounds Neuro: Speech: normal speech Motor exam (neuro): Normal motor muscle tone present throughout Sensory Exam: normal sensation Extrem: General: normal to inspection Other: Inflamed joints of the hands bilaterally, chronic Psych: Mental Status: mental status grossly normal Affect: normal affect Objective Data Vital Signs Vital Signs: Vital Signs - 24 hr 04/03/25 08:00 04/03/25 08:55 04/03/25 13:45 Temperature 97.7 F Pulse Rate 72 78 Respiratory Rate 18 Blood Pressure 110/62 Pulse Oximetry 100 Oxygen Delivery Room Air Fraction of Inspired Oxygen 04/03/25 20:56 04/03/25 21:50 04/04/25 06:00 Temperature 98.2 F 97.7 F Pulse Rate 76 66 Respiratory Rate 16 20 Blood Pressure 126/60 139/69 Pulse Oximetry 100 100 100 Oxygen Delivery Room Air Fraction of Inspired Oxygen 21 Intake/Output Intake/Output: Intake & Output 04/01/25 04/02/25 04/03/25 04/04/25 23:59 23:59 23:59 23:59 Intake Total 295.8 1154 730 350 Output Total 1050 1300 200 Balance 295.8 104 -570 150 Meds/Results Medications: Active Medications Generic Name Dose Route Start Last Admin Trade Name Freq PRN Reason Stop Dose Admin Acetaminophen 650 mg 04/01/25 23:21 Acetaminophen 325 Mg Tablet PO Q4H PRN Mild Pain (1-3) Or Fever Hydrocodone Bitart/Acetaminophen 1 tab 04/01/25 23:21 04/02/25 21:32 Hydrocodone/Acetaminophen (*Crx) 5-325 Mg Tablet PO 1 tab Q6H PRN Administration Pain Rated 4-6 Bisacodyl 10 mg 04/01/25 23:21 Bisacodyl 5 Mg Tablet Ec PO QAM PRN Constipation Ferrous Sulfate 325 mg 04/02/25 08:00 04/03/25 17:17 Ferrous Sulfate [address] PO 325 mg BIDWM MIROSLAVA Administration Furosemide 40 mg 04/02/25 16:20 04/03/25 08:56 Furosemide Inj 40 Mg/4 Ml Vial IV PUSH 40 mg DAILY MIROSLAVA Administration Heparin Sodium (Beef Lung) 50 units 04/02/25 09:00 04/03/25 08:54 Heparin Flush 50 Units/5 Ml Syringe IV PUSH Not Given QAM MIROSLAVA Heparin Sodium (Beef Lung) 50 units 04/01/25 19:11 04/03/25 10:56 Heparin Flush 50 Units/5 Ml Syringe IV PUSH 50 units PRN PRN Administration after intermittent infusion Heparin Sodium (Beef Lung) 50 units 04/01/25 19:11 Heparin Flush 50 Units/5 Ml Syringe IV PUSH PRN PRN after blood draws Heparin Sodium (Porcine) 500 units 04/01/25 19:11 Heparin Sodium Lock Flush 500 Units/5 Ml Syringe IV PUSH PRN PRN see comments below Vancomycin HCl 1,250 mg in 250 mls @ 166.667 mls/hr 04/02/25 13:00 04/04/25 03:07 Vancomycin 1,250 Mg/Ns 250 Ml IVPB Infused Q18H MIROSLAVA Infusion Ceftriaxone Sodium 2 gm in 100 mls @ 200 mls/hr 04/02/25 09:30 04/03/25 10:08 Rocephin 2 Gm/Ns 100 Ml IVPB 200 mls/hr DAILY MIROSLAVA Administration Lidocaine 1 patch 04/02/25 09:00 04/03/25 08:56 Lidocaine 5% Patch TRANSDERM 1 patch DAILY MIROSLAVA Administration Magnesium Oxide 200 mg 04/02/25 09:00 04/03/25 08:55 Magnesium Oxide 200 Mg Tablet PO 200 mg DAILY MIROSLAVA Administration Megestrol Acetate 40 mg 04/02/25 09:00 04/03/25 17:17 Megestrol Acetate (*Chemo) 40 Mg Tablet PO Not Given BID [facility] Metoprolol Succinate 25 mg 04/02/25 09:00 04/03/25 08:55 Metoprolol Succinate Ext Rel 25 Mg Tabcr PO 25 mg QAM MIROSLAVA Administration Morphine Sulfate 2 mg 04/01/25 17:38 04/01/25 18:19 Morphine Sulfate (*Crx) 2 Mg/Ml Inj IV PUSH 2 mg Q2H PRN Administration Pain Rated 7-10 Perflutren Lipid Microsphere 0 ml 04/01/25 23:33 Perflutren Lipid Microspheres 1.5 Ml Vial Diluted To 10 Ml Total Volume IV PUSH 04/04/25 23:33 ONCE PRN adequate visualization Protocol Polyethylene Glycol 17 gm 04/02/25 09:00 04/03/25 08:54 Polyethylene Glycol 3350 17 Gm Powd.Pack PO Not Given DAILY [facility] Prednisone 20 mg 04/03/25 11:15 04/03/25 11:55 Prednisone 20 Mg Tablet PO 20 mg DAILY@0800 MIROSLAVA Administration Senna/Docusate Sodium 1 tab 04/02/25 09:00 04/03/25 17:17 Senna/Docusate Sodium Tablet PO 1 tab BID MIROSLAVA Administration Sodium Chloride 10 ml 04/01/25 22:00 04/04/25 06:21 Central Line Flush IV PUSH 10 ml Q8HR MIROSLAVA Administration Tramadol HCl 50 mg 04/01/25 23:21 04/03/25 20:46 Tramadol Hcl (*Crx) 50 Mg Tablet PO 50 mg Q12H PRN Administration Pain Rated 4-6 Radiology Results: ITS Impressions Venous Doppler Study 04/01/25 13:04 IMPRESSION: 1. No deep venous thrombosis in either lower limb. 2. A few mildly prominent but still normal-sized likely reactive bilateral inguinal lymph nodes. Chest X-Ray 04/01/25 13:34 IMPRESSION: No acute cardiopulmonary pathology. Cardiomegaly. Knee X-Ray 04/01/25 13:51 IMPRESSION: 1. Persistent large right knee joint effusion with suggestion of some osteolysis with loss of a well-defined cortical margin along the articular surfaces of the patella and trochlea suspicious for osteomyelitis. Recommend diagnostic arthrocentesis. 2. Tricompartmental osteoarthritis with severe joint space narrowing in the medial and lateral compartments. Labs Labs: Laboratory Results - last 24 hr 04/03/25 04/03/25 05:55 10:07 Uric Acid 6.6 Rheumatoid Factor > 120.0 Quality VTE Prophylaxis VTE prophylaxis: mechanical ordered
[2025-04-04 08:37] VITALS: PULSE 76
[2025-04-04] MEDS: METOPROLOL SUCCINATE EXT REL 25 MG TABCR PO (08:37)
[2025-04-04] MEDS: SENNA/DOCUSATE SODIUM TABLET 1 TAB PO ×2 (08:37→16:48)
[2025-04-04] MEDS: predniSONE 20 MG TABLET PO (08:37)
[2025-04-04] MEDS: MEGESTROL ACETATE (*CHEMO) 40 MG TABLET PO ×2 (08:37→16:47)
[2025-04-04] MEDS: FUROSEMIDE INJ 40 MG/4 ML VIAL IV PUSH (08:39)
[2025-04-04] MEDS: MAGNESIUM OXIDE 200 MG TABLET PO (08:39)
[2025-04-04] MEDS: FERROUS SULFATE 325 MG TABLET DR PO ×2 (08:40→16:47)
[2025-04-04] MEDS: cefTRIAXone 2 GM/NS 100 ML 2 GM/100 ML BAG IVPB (08:40)
[2025-04-04 08:41] VITALS: RESP 20; O2SAT 100
[2025-04-04] MEDS: LIDOCAINE 5% PATCH 1 PATCH TRANSDERM (08:41)
[2025-04-04 09:02] LABS: Hematocrit 26.2 % (37.0-47.0); Mean Corpuscular HGB Conc 30.5 g/dl (32-36); Mean Corpuscular Hemoglobin 30.3 pg (26-34); Mean Corpuscular Volume 99.2 fl (80-100); Mean Platelet Volume 9.1 fl (7.4-10.4); Platelet Count Result 430 k/mm3 (150-375); Red Blood Count 2.64 M/mm3 (4.2-5.4); Red Cell Distribution Width 16.6 % (11.5-14.5); White Blood Count 11.4 K/mm3 (4.5-10.0)
[2025-04-04 09:10] LABS: Alanine Aminotransferase 16 U/L (6-35); Albumin Level 2.4 g/dL (3.5-5.1); Alkaline Phosphatase 79 U/L (38-126); Anion Gap 5 mmol/L (4-12); Aspartate Amino Transferase 25 U/L (14-36); Bilirubin,Total 0.1 mg/dL (0.2-1.3); Blood Urea Nitrogen 20 mg/dL (7-17); Calcium 8.1 mg/dL (8.4-10.2); Carbon Dioxide 29 mmol/L (22-30); Chloride 103 mmol/L (98-107); Estimated CRCL calculation 67 ml/min; Estimated Glomerular Filt Rate > 60; Glucose 129 mg/dL (65-110); Potassium 3.2 mmol/L (3.4-5.0); Sodium 137 mmol/L (137-145)
[2025-04-04 09:18] LABS: NT Pro B Type Natriuretic Pept 960 pg/mL (19.9-100)
[2025-04-04] MEDS: SULFAMETHOXAZOLE/TRIMETHOPRIM 800/160 MG DS TABLET 1 TAB PO ×2 (09:20→20:41)
[2025-04-04 09:35] LABS: Band Neutrophils Percent 8 % (0-6); Basophils Absolute Manual 0.11 K/mm3 (0.0-0.1); Basophils Percent Manual 1 % (0-1); Eosinophils Absolute Manual 0.22 K/mm3 (0.02-0.50); Eosinophils Percent Manual 2 % (0-4); Hypochromasia 2+; Lymphocytes Absolute Manual 1.48 K/mm3 (1.1-4.5); Lymphocytes Percent Manual 13 % (18-44); Monocytes Absolute Manual 0.11 K/mm3 (0.1-0.90); Monocytes Percent Manual 1 % (3-9); Neutrophils Absolute Manual 9.46 K/mm3 (1.7-7.2); Neutrophils Percent Manual 75 % (46-73); Platelet Estimate Increased (Adequate); Schistocytes None Seen; Total Cells Counted 100
--- NOTE | 2025-04-04 11:54 | P.PNOP_ITS ---
Progress Note: A&P Assessment and Plan (1) Effusion of right knee: Code(s): M25.461 - Effusion, right knee Status: Acute Assessment and Plan: Unlikely for the effusion to be due to sepsis secondary to negative cultures. Despite: 1) Greatly elevated Sed Rate and CRP 2) Markedly elevated white count with 93% left shift in joint fluid 3) Large swelling (2) Rheumatoid arthritis: Qualifiers: Rheumatoid arthritis location: unspecified site Rheumatoid factor presence: unspecified presence Qualified Code(s): M06.9 - Rheumatoid arthritis, unspecified Code(s): M06.9 - Rheumatoid arthritis, unspecified Status: Acute Assessment and Plan: Most like due to Rheumatoid Arthritis. Will need Rheumatology consult and fo llow up. Subjective Subjective Date/Time Seen: 04/04/25 11:54 Principal diagnosis: Knee Effusion Interval history: Patient is here hospital day 3. She has a knee effusion. She was treated for almost identical symptoms or problems 4 months ago. Despite the fact she did grow anything I scoped the knee with resumption of a possible infection and she got better for a period time. She returns is nearly identical symptoms and labs. Review of Systems Review of Systems: All systems reviewed & are unremarkable except as noted in HPI and below Musculoskeletal: Comments: wrist tingling/pain Exam Narrative: Patient has pain and swelling in the right knee. She is chronically swollen painful. I have seen her in the office. I sent her back to [place] where the original surgery was performed. Unfortunately she continues to be symptomatic. Eyes: General: appearance normal, both eyes and all related structures Neck: Neck: supple Resp: Effort & Inspection: normal respiratory effort Cardio: Rate: regular rate Rhythm: regular rhythm Objective Data Vital Signs Vital Signs: Vital Signs - 24 hr 04/03/25 13:45 04/03/25 20:56 04/03/25 21:50 Temperature 97.7 F 98.2 F Pulse Rate 78 76 Respiratory Rate 18 16 Blood Pressure 110/62 126/60 Pulse Oximetry 100 100 100 Oxygen Delivery Room Air Fraction of Inspired Oxygen 21 04/04/25 06:00 04/04/25 08:37 04/04/25 08:41 Temperature 97.7 F Pulse Rate 66 76 Respiratory Rate 20 20 Blood Pressure 139/69 Pulse Oximetry 100 100 Oxygen Delivery Room Air Fraction of Inspired Oxygen Intake/Output Intake/Output: Intake & Output 04/01/25 04/02/25 04/03/25 04/04/25 23:59 23:59 23:59 23:59 Intake Total 295.8 1154 830 500 Output Total 1050 1300 200 Balance 295.8 104 -470 300 Meds/Results Medications: Active Medications Generic Name Dose Route Start Last Admin Trade Name Freq PRN Reason Stop Dose Admin Acetaminophen 650 mg 04/01/25 23:21 Acetaminophen 325 Mg Tablet PO Q4H PRN Mild Pain (1-3) Or Fever Hydrocodone Bitart/Acetaminophen 1 tab 04/01/25 23:21 04/02/25 21:32 Hydrocodone/Acetaminophen (*Crx) 5-325 Mg Tablet PO 1 tab Q6H PRN Administration Pain Rated 4-6 Bisacodyl 10 mg 04/01/25 23:21 Bisacodyl 5 Mg Tablet Ec PO QAM PRN Constipation Ferrous Sulfate 325 mg 04/02/25 08:00 04/04/25 08:40 Ferrous Sulfate [address] PO 325 mg BIDWM MIROSLAVA Administration Furosemide 40 mg 04/02/25 16:20 04/04/25 08:39 Furosemide Inj 40 Mg/4 Ml Vial IV PUSH 40 mg DAILY MIROSLAVA Administration Heparin Sodium (Beef Lung) 50 units 04/02/25 09:00 04/04/25 08:39 Heparin Flush 50 Units/5 Ml Syringe IV PUSH 50 units QAM MIROSLAVA Administration Heparin Sodium (Beef Lung) 50 units 04/01/25 19:11 04/03/25 10:56 Heparin Flush 50 Units/5 Ml Syringe IV PUSH 50 units PRN PRN Administration after intermittent infusion Heparin Sodium (Beef Lung) 50 units 04/01/25 19:11 Heparin Flush 50 Units/5 Ml Syringe IV PUSH PRN PRN after blood draws Heparin Sodium (Porcine) 500 units 04/01/25 19:11 Heparin Sodium Lock Flush 500 Units/5 Ml Syringe IV PUSH PRN PRN see comments below Lidocaine 1 patch 04/02/25 09:00 04/04/25 08:41 Lidocaine 5% Patch TRANSDERM 1 patch DAILY MIROSLAVA Administration Magnesium Oxide 200 mg 04/02/25 09:00 04/04/25 08:39 Magnesium Oxide 200 Mg Tablet PO 200 mg DAILY MIROSLAVA Administration Megestrol Acetate 40 mg 04/02/25 09:00 04/04/25 08:37 Megestrol Acetate (*Chemo) 40 Mg Tablet PO 40 mg BID MIROSLAVA Administration Metoprolol Succinate 25 mg 04/02/25 09:00 04/04/25 08:37 Metoprolol Succinate Ext Rel 25 Mg Tabcr PO 25 mg QAM MIROSLAVA Administration Morphine Sulfate 2 mg 04/01/25 17:38 04/01/25 18:19 Morphine Sulfate (*Crx) 2 Mg/Ml Inj IV PUSH 2 mg Q2H PRN Administration Pain Rated 7-10 Perflutren Lipid Microsphere 0 ml 04/01/25 23:33 Perflutren Lipid Microspheres 1.5 Ml Vial Diluted To 10 Ml Total Volume IV PUSH 04/04/25 23:33 ONCE PRN adequate visualization Protocol Polyethylene Glycol 17 gm 04/02/25 09:00 04/04/25 08:41 Polyethylene Glycol 3350 17 Gm Powd.Pack PO Not Given DAILY [facility] Prednisone 20 mg 04/03/25 11:15 04/04/25 08:37 Prednisone 20 Mg Tablet PO 20 mg DAILY@0800 MIROSLAVA Administration Senna/Docusate Sodium 1 tab 04/02/25 09:00 04/04/25 08:37 Senna/Docusate Sodium Tablet PO 1 tab BID MIROSLAVA Administration Sodium Chloride 10 ml 04/01/25 22:00 04/04/25 06:21 Central Line Flush IV PUSH 10 ml Q8HR MIROSLAVA Administration Tramadol HCl 50 mg 04/01/25 23:21 04/03/25 20:46 Tramadol Hcl (*Crx) 50 Mg Tablet PO 50 mg Q12H PRN Administration Pain Rated 4-6 Trimethoprim/Sulfamethoxazole 1 tab 04/04/25 09:00 04/04/25 09:20 Sulfamethoxazole/Trimethoprim 800/160 Mg Ds Tablet PO 04/29/25 23:59 1 tab Q12HR MIROSLAVA Administration Radiology Results: ITS Impressions Venous Doppler Study 04/01/25 13:04 IMPRESSION: 1. No deep venous thrombosis in either lower limb. 2. A few mildly prominent but still normal-sized likely reactive bilateral inguinal lymph nodes. Chest X-Ray 04/01/25 13:34 IMPRESSION: No acute cardiopulmonary pathology. Cardiomegaly. Knee X-Ray 04/01/25 13:51 IMPRESSION: 1. Persistent large right knee joint effusion with suggestion of some osteolysis with loss of a well-defined cortical margin along the articular surfaces of the patella and trochlea suspicious for osteomyelitis. Recommend diagnostic arthrocentesis. 2. Tricompartmental osteoarthritis with severe joint space narrowing in the medial and lateral compartments. Labs Labs: Laboratory Results - last 24 hr 04/03/25 04/04/25 05:55 08:48 WBC 11.4 H RBC 2.64 L Hgb 8.0 L Hct 26.2 L MCV 99.2 MCH 30.3 MCHC 30.5 L RDW 16.6 H Plt Count 430 H MPV 9.1 Immature Gran % (Auto) Not Reportable Neut % (Auto) Not Reportable Lymph % (Auto) Not Reportable Coffey % (Auto) Not Reportable Eos % (Auto) Not Reportable Baso % (Auto) Not Reportable Lymph # (Auto) Not Reportable Coffey # (Auto) Not Reportable Eos # (Auto) Not Reportable Baso # (Auto) Not Reportable Abs Immat Gran (auto) Not Reportable Absolute Neuts (auto) Not Reportable Absolute Nucleated RBC Not Reportable Total Counted 100 Neutrophils % (Manual) 75 H Band Neutrophils % 8 H Lymphocytes % (Manual) 13 L Monocytes % (Manual) 1 L Eosinophils % (Manual) 2 Basophils % (Manual) 1 Nucleated RBC % Not Reportable Abs Neuts (Manual) 9.46 H Abs Lymphs (Manual) 1.48 Abs Monocytes (Manual) 0.11 Absolute Eos (Manual) 0.22 Abs Basophils (Manual) 0.11 H Platelet Estimate Increased Hypochromasia 2+ Schistocytes None seen Sodium 137 Potassium 3.2 L Chloride 103 Carbon Dioxide 29 Anion Gap 5 BUN 20 H Creatinine 0.56 L Estim Creat Clear Calc 67 Estimated GFR > 60 Glucose 129 H Uric Acid 6.6 Calcium 8.1 L Total Bilirubin 0.1 L AST 25 ALT 16 Alkaline Phosphatase 79 NT-Pro-B Natriuret Pep 960 H Total Protein 7.0 Albumin 2.4 L
--- NOTE | 2025-04-04 13:29 | P.DS_ITS ---
DS: Admitting Diagnosis Discharge Date 04/04/2025 Admitting Diagnosis R knee pain DS: Discharge Diagnosis Discharge Diagnosis (1) Hypertension: Qualifiers: Hypertension type: primary hypertension Qualified Code(s): I10 - Essential (primary) hypertension Code(s): I10 - Essential (primary) hypertension Status: Acute (2) Hyperlipidemia: Code(s): E78.5 - Hyperlipidemia, unspecified Status: Acute (3) Septic joint of right knee joint: Qualifiers: Septic arthritis organism: due to unspecified organism Qualified Code(s): M00.9 - Pyogenic arthritis, unspecified Code(s): M00.9 - Pyogenic arthritis, unspecified Status: Acute (4) Rheumatoid arthritis: Qualifiers: Rheumatoid arthritis location: unspecified site Rheumatoid factor presence: unspecified presence Qualified Code(s): M06.9 - Rheumatoid arthritis, unspecified Code(s): M06.9 - Rheumatoid arthritis, unspecified Status: Acute (5) Osteoarthritis of right knee: Code(s): M17.11 - Unilateral primary osteoarthritis, right knee Status: Acute (6) Effusion of right knee: Code(s): M25.461 - Effusion, right knee Status: Acute Plan Right knee septic arthritis/osteomyelitis Started on vancomycin slow 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 Persistent large right knee joint effusion with suggestion of some osteolysis with loss of a well-defined cortical margin along the articular surfaces of the patella and trochlea suspicious for osteomyelitis. Recommend diagnostic arthrocentesis. 2. Tricompartmental osteoarthritis with severe joint space narrowing in the medial and lateral compartments. Ultrasound lower extremity: IMPRESSION: 1. No deep venous thrombosis in either lower limb. 2. A few mildly prominent but still normal-sized likely reactive bilateral ing uinal lymph nodes. Orthopedics rec to pending joint cultures for further management but with recent rheum factor being elevated, plan to D/C with ortho blessing with the rec of Bactrim x4 weeks and continue steroid x2 weeks for current sx. s/p arthroscopy with irrigation and debridement on 12/[address] Bello. Per surgery, through unlikely this could be an RA flare or even gout (uric acid WNL) Blood culture repeat pending (first prelim was staph contaminate, pt already on Vanc) Rheum factor resulted today at >120, upcoming rheum outpt visit scheduled on 04/21/2025 per pt. Continue daily prednisone, acetaminophen PRN, methanol creams, and lidocaine patch. Orthopnea Echo = Summary 1. Complete two-dimensional, color flow and Doppler transthoracic echocardiogram is performed. 2. There is normal biventricular size and systolic function. 3. There are no significant valvular abnormalities. 4. There is mild pulmonary hypertension. The left ventricular ejection fraction is visually estimated to be 65-70%. BNP 1,110 04/02, 440 04/03, will trend - denies any more orthopnea Lasix 40 mg IV q.d. while inpatient Pt denies any acute sx. Anemia Previously evaluated by Dr. Burk Continue to monitor hemoglobin 04/04: 8.0, appears to be her baseline RA Patient do not follow-up with any branding machine operator but states that she has an upcoming appt with one Patient has not seen anyone for her RA in over a year. Patient was referred by her PCP to Dr. Gamez. Discussed in depth with patient the importance of following up with the branding machine operator. Patient was previously receiving transfusions via port, however notes that she has not received infusions in over a year. Port last accessed February 2024. Patient states she was previously on MTX however was taken off 4 years ago, unsure why. She was previously on prednisone daily and stated that this helped significantly, however she stopped this herself about 1 year ago after her sister had a brain bleed while on prednisone. Patient denies any adverse reactions to herself while on prednisone. Patient states that her PCP is managing her port. Will consider prednisone at D/C if needed Topical analgesics include methanol creams and lidocaine patch -->Pt with rheum appt scheduled for April 21 outpt Disposition: Home with DS: Summary Hospital Course Reason for hospitalization: R knee pain, RA Hospital Course: Patient admitted for bilateral lower extremity edema times 2-3 days, right knee pain x1 month, and orthopnea. Patient was admitted yesterday (04/01) where a joint aspiration was obtained on her right knee in the emergency department. Patient with a history of grade 1 diastolic dysfunction but is not on any diuretics. Patient also has a history of DVT and is no longer on anticoagulants. Blood cultures were also obtained in the Emergency Department the preliminary results yesterday evening (04/01) were negative. Patient continues to deny shortness of breath chest pain any congestion today, she does however report mild orthopnea. Patient with a history of being evaluated in the emergency department in November of 2024 she was admitted for concerns of septic joint and was taken to the OR for washout with Dr. Bello. Since then she was discharged to [facility] and the cultures at that visit yielded no growth. ED work-up: Her lab work shows leukocytosis of 14 with an ESR greater than 140 and CRP of 19. Hemoglobin is at her baseline at 8.6. Bilateral venous duplex showed no DVT. BNP normal when age adjusted. Chest x-ray shows cardiomegaly, no acute findings. Orthopedics was consulted and per their visit 04/02 AM, awaiting tap cultures still, but, with recent increase in rheum factor, r/u surgical intervention. Per ortho, rx bactrim x4 weeks as well as daily steroid continuation x 2 weeks. Patient remains hemodynamically stable. Exam did not change today. Pt with rheumatoid factor >120 today, pt with an upcoming rheum appt. Pt c/o mild wrist tingling/pain today. Will continue prednisone 20mg and acetaminophen PRN. Pt to see outside rheum on April 21, 2025. Status at Discharge Cognitive/behavioral status at discharge: Stable Time Spent with Patient Time attestation: Total time spent providing and/or coordinating discharge services: Exam Const: General: comfortable and no acute distress HENMT: Face/Nose/Sinus: Normal nares present Mouth: Yes moist mucous membranes Eyes: General: appearance normal, both eyes and all related structures Sclera: sclerae normal Neck: Neck: supple and no JVD Carotids: no bruits Resp: Effort & Inspection: normal respiratory effort Auscultation: clear to auscultation bilaterally Cardio: Rate: regular rate Rhythm: regular rhythm GI: Inspection: non-distended Auscultation: normal bowel sounds Skin: General skin exam: normal color and no rashes or lesions noted Wounds: no wounds Neuro: Speech: normal speech Motor exam (neuro): Normal motor muscle tone present throughout Sensory Exam: normal sensation Extrem: General: normal to inspection Other: Inflamed joints of the hands bilaterally, chronic 1+ bilateral lower extremity edema witho ut overlying erythema. Well-healed surgical scars to bilateral knees. Right knee is larger than left with diffuse tenderness, no warmth or erythema. Full active and passive range of motion of bilateral knees. DP pulses 2+. Sensation intact throughout. Psych: Mental Status: mental status grossly normal Affect: normal affect DS: Data Data Completed and Pending Labs on day of discharge: Labs from last 24 hours 04/04/25 08:48 WBC 11.4 H RBC 2.64 L Hgb 8.0 L Hct 26.2 L MCV 99.2 MCH 30.3 MCHC 30.5 L RDW 16.6 H Plt Count 430 H MPV 9.1 Immature Gran % (Auto) Not Reportable Neut % (Auto) Not Reportable Lymph % (Auto) Not Reportable Maries % (Auto) Not Reportable Eos % (Auto) Not Reportable Baso % (Auto) Not Reportable Lymph # (Auto) Not Reportable Maries # (Auto) Not Reportable Eos # (Auto) Not Reportable Baso # (Auto) Not Reportable Abs Immat Gran (auto) Not Reportable Absolute Neuts (auto) Not Reportable Absolute Nucleated RBC Not Reportable Total Counted 100 Neutrophils % (Manual) 75 H Band Neutrophils % 8 H Lymphocytes % (Manual) 13 L Monocytes % (Manual) 1 L Eosinophils % (Manual) 2 Basophils % (Manual) 1 Nucleated RBC % Not Reportable Abs Neuts (Manual) 9.46 H Abs Lymphs (Manual) 1.48 Abs Monocytes (Manual) 0.11 Absolute Eos (Manual) 0.22 Abs Basophils (Manual) 0.11 H Platelet Estimate Increased Hypochromasia 2+ Schistocytes None seen Sodium 137 Potassium 3.2 L Chloride 103 Carbon Dioxide 29 Anion Gap 5 BUN 20 H Creatinine 0.56 L Estim Creat Clear Calc 67 Estimated GFR > 60 Glucose 129 H Calcium 8.1 L Total Bilirubin 0.1 L AST 25 ALT 16 Alkaline Phosphatase 79 NT-Pro-B Natriuret Pep 960 H Total Protein 7.0 Albumin 2.4 L Preliminary micro results at discharge 04/03/25 08:35 Blood Culture - Preliminary Blood 04/03/25 08:39 Blood Culture - Preliminary Blood 04/01/25 18:09 Blood Culture - Preliminary Blood Staphylococcus hominis 04/01/25 15:34 Anaerobic Culture - Preliminary Synovial Fluid Right Knee Aerobic Culture - Preliminary 04/01/25 18:10 Blood Culture - Preliminary Blood Discharge Plan Discharge Attending physician on discharge: Maribel Gama Consulting providers: Bill Bello Discharging Clinician: Maribel Gama Anticipated Discharge Date/Time: 04/04/25 15:00 Patient Disposition: Home with Home Health Service Activity: may shower and as tolerated Diet: heart healthy Discharge Instructions: Per Care Coordination. Patient to have [facility] for RN/PT/OT eval and treat [phone]. They will contact patient to schedule first visit. 1. Take antibiotics until 04/29/2025, take as prescribed on the bottle 2. Continue to take the prednisone steroid 20mg daily for the next x2 week or until for Rheum appt on April 21 3. Make sure to follow-up with your rheumatoid specialist at your upcoming appt Patient Instructions: Antibiotic Form, Prednisone (By mouth), Pain Management (DC), Rheumatoid Arthritis (GEN) Patient Language: Welsh Stand Alone Forms: General Discharge Information Follow-up/Referrals: Tobias,MD Kobe [Primary Care Provider] - 2 Weeks Discharge Medications: New prednisone 20 mg Tablet 20 mg PO DAILY@0800 10 Days Qty: 10 0RF sulfamethoxazole-trimethoprim 800-160 mg Tablet 1 tablet PO Q12HR 25 Days Qty: 50 0RF Continued metoprolol succinate [Toprol XL] 25 mg Tablet Extended Release 24 Hr 25 mg PO QAM Qty: 60 0RF acetaminophen 325 mg Tablet 650 mg PO Q4H PRN (Reason: Mild Pain (1-3) Or Fever) Qty: 120 0RF hydrocodone-acetaminophen 5-325 mg Tablet 1 tablet PO Q6H PRN (Reason: Pain Rated 4-6) Qty: 30 0RF sennosides-docusate sodium [Senokot-S] 8.6-50 mg Tablet 1 tab PO BID Qty: 60 0RF magnesium oxide 400 mg (241.3 mg magnesium) Tablet 200 mg PO DAILY Qty: 60 0RF lidocaine [Lidoderm] 5 % Adhesive Patch,Medicated 1 patch transdermal DAILY Qty: 30 0RF Patient Comments: KNEES bisacodyl [Laxative (bisacodyl)] 5 mg Tablet,Delayed Release (Dr/Ec) 10 mg PO QAM PRN (Reason: Constipation) Qty: 30 0RF ferrous sulfate 325 mg (65 mg iron) Tablet,Delayed Release (Dr/Ec) 325 mg PO BIDWM Qty: 60 0RF Bengay Ultra Strength 4-30-10 % Cream 1 applic topical BID PRN (Reason: Muscle/Joint Pain) Qty: 60 0RF polyethylene glycol 3350 [Miralax] 17 gram/dose Powder 17 g PO DAILY tramadol 50 mg tablet 50 mg PO Q12H PRN (Reason: pain) megestrol 40 mg Tablet 40 mg PO BID Discontinued cefuroxime axetil 250 mg Tablet 500 mg PO Q12HR@1200,2100 Qty: 1 0RF Date of admission: 04/02/25 07:15 Primary Care Provider: Tobias,[facility] Admitting Provider: Evaristo Cantu Attending physician on admission: Evaristo Cantu Condition: Stable Quality VTE Prophylaxis VTE prophylaxis: mechanical ordered Hospitalist MIPS Heart Failure (Exclusion) Patient has history of Heart Transplant or Left Ventricular Assistive Device?: No IF YES, STOP HERE Heart Failure (Qualifier) Patient has current or prior documentation of LVEF less than or equal to 40%, or mod/servere depressed LVSF?: No IF NO, STOP HERE
[2025-04-04 13:34] VITALS: BP 131/66; PULSE 71; RESP 16; TEMP 36.3; O2SAT 100
[2025-04-04] MEDS: HEPARIN SODIUM LOCK FLUSH 500 UNITS/5 ML SYRINGE IV PUSH (14:09)
[2025-04-04 21:31] VITALS: BP 144/81; PULSE 72; RESP 16; TEMP 36.8; O2SAT 100
[2025-04-05 17:53] LABS: Total Protein Synovial Fluid 5.4 g/dL (1.0-3.0)
[2025-04-05 18:37] LABS: Glucose Synovial Fluid 53 mg/dL
[2025-04-07 15:44] LABS: Anti Cyclic Citrullinated Pept >250 UNITS
--- NOTE | 2025-04-10 08:09 | PC.NURSE ---
Blood and wound cx are negative.
== END 2025-04-04 21:33 | disposition home health service (06) | DRG 550 ==
LOC: ANHED 12:36 → ANH3MEDSUR 18:47 → ANH2MED 20:04
PROVIDERS: Orthopaedic Surgery; Physician Assistant; Admitting Provider Internal Medicine; Emergency Provider Emergency Medicine; PCP Family Medicine
DX: M00.9 Pyogenic arthritis, unspecified (principal); M25.461 Effusion, right knee; M06.9 Rheumatoid arthritis, unspecified; I10 Essential (primary) hypertension; E78.5 Hyperlipidemia, unspecified; M17.11 Unilateral primary osteoarthritis, right knee; M85.80 Other specified disorders of bone density and structure, unspecified site; R23.2 Flushing; T36.8X5A Adverse effect of other systemic antibiotics, initial encounter; Z96.652 Presence of left artificial knee joint; Z86.718 Personal history of other venous thrombosis and embolism; Z93.1 Gastrostomy status
CPT/HCPCS: 36415; 71045; 73564; 80053; 80202; 82565; 82945; 83735; 83880; 84157; 84484; 84550; 85025; 85610; 85652; 85730; 86140; 86200; 86430; 87040; 87070; 87075; 87181; 87205; 89051; 89060; 93005; 93306; 93970; 96365; 96366; 96367; 96375; 96376; 97110; 97116; 97161; 97166; 97530; 97535; 99285; A9270; G0378; J0696; J1200; J1642; J1938; J2004; J2270; J3370; J7512

== ENCOUNTER 2025-09-01 15:41 | Inpatient (IN) | payer MEDICARE, BC, OTHER, SELFPAY ==
--- OUTSIDE RECORDS SUMMARY | 2024-07-12 06:00 | XMS_ITS | Continuity of Care Document ---
Author Organization [facility] Address [address] [place] [address] Phone Care Team Providers Care Hooker Off Name Role Phone Madi Wray MD Unavailable Unavailable Allergies, Adverse Reactions, Alerts Substance Reaction Status Criticality meloxicam Active No Information prednisone Active No Information tetracycline Active No Information nickel Active No Information erythromycin base Active No Informa tion lisinopril Active No Information Penicillins Active No Information latex Active No Information Medications Medication Instructions Dosage Effective Dates (start - stop) Status Comments DILTIAZEM 24HR ER (LA) (unknown strength) take 1 tablet by oral route every day Not Available - Active Adbry 150 mg/mL subcutaneous syringe inject (300MG) by subcutaneous route every 2 weeks rotating injection sites 300 MG - Active TALTZ AUTOINJECTOR (unknown strength) Not Available - Active Symjepi 0.3 mg/0.3 mL injection syringe - Active hydrochlorothiazide 12.5 mg tablet take 1 tablet by oral route every day 12.5 MG - Active losartan 100 mg tablet take 1 tablet by oral route every day 100 MG - Active Toprol XL 25 mg tablet,extended release take 1 tablet by oral route every day 25 MG - Active Protonix 20 mg tablet,delayed release take 2 tablet by oral route every day 40 MG - Active Eliquis 2.5 mg tablet take 1 tablet by oral route 2 times every day 2.5 MG - Active Procedures Procedure Date RADEX KNE 3 VIEWS Drugs unclassified injection Betamethasone acet&sod phosp DRAIN/INJECT JOINT/BURSA OFFICE/OUTPATIENT VISIT EST EXPLORATION OF KNEE JOINT RADEX KNE COMPL 4/MORE VIEWS DRAIN/INJECT JOINT/BURSA OFFICE/OUTPATIENT VISIT EST RADEX KNE 3 VIEWS OFFICE/OUTPATIENT VISIT EST POSTOP FOLLOW-UP VISIT EXPLORATION OF KNEE JOINT DRAIN/INJECT JOINT/BURSA OFFICE/OUTPATIENT VISIT EST RADEX KNE COMPL 4/MORE VIEWS DRAIN/INJECT JOINT/BURSA OFFICE/OUTPATIENT VISIT EST Triamcinolone acet inj NOS Drugs unclassified injection DRAIN/INJ JOINT/BURSA W/US Triamcinolone acet inj NOS Drugs unclassified injection DRAIN/INJECT JOINT/BURSA OFFICE/OUTPATIENT VISIT EST OFFICE/OUTPATIENT VISIT EST MRI JT Upper w/o Contrast MRI Spine w/o Contrast-Cervical OFFICE/OUTPATIENT VISIT EST OFFICE/OUTPATIENT VISIT EST RADEX SPI CRV 2/3 VIEWS OFFICE/OUTPATIENT VISIT EST RADEX KNE 3 VIEWS OFFICE/OUTPATIENT VISIT EST RADEX BILLY COMPL MINIMUM 2 VIEWS 022 RADEX BILLY COMPL MINIMUM 2 VIEWS 022 Triamcinolone acet inj NOS Drugs unclassified injection DRAIN/INJECT JOINT/BURSA Triamcinolone acet inj NOS Drugs unclassified injection DRAIN/INJECT JOINT/BURSA OFFICE/OUTPATIENT VISIT EST RADEX KNE 3 VIEWS OFFICE/OUTPATIENT VISIT EST Nov-07-2022 Knee Stabilizer Full Length RADEX KNE 3 VIEWS OFFICE/OUTPATIENT VISIT EST OFFICE/OUTPATIENT VISIT EST RADEX KNE 3 VIEWS POSTOP FOLLOW-UP VISIT RADEX KNE 3 VIEWS POSTOP FOLLOW-UP VISIT POSTOP FOLLOW-UP VISIT TOTAL KNEE ARTHROPLASTY TOTAL KNEE ARTHROPLASTY DRAIN/INJECT JOINT/BURSA POSTOP FOLLOW-UP VISIT POSTOP FOLLOW-UP VISIT RADEX KNE 3 VIEWS RADEX KNE 1/2 VIEWS POSTOP FOLLOW-UP VISIT REMOVAL OF KNEE PROSTHESIS OFFICE/OUTPATIENT VISIT EST RADEX KNE 3 VIEWS DRAIN/INJECT JOINT/BURSA OFFICE/OUTPATIENT VISIT EST RADEX KNE 3 VIEWS OFFICE/OUTPATIENT VISIT NEW Results Test Name Date and Time Measure Units Reference Range Abnormal Flag Status Comments Panel Description: Cell Ct, Synovial w/Crystals Final Color, Fluid 11:59:00 Yellow Yellow Final Performed by:Prasanth WILSON) Clarity, Fluid 11:59:00 Turbid Clear A Final Performed by:Prasanth WILSON) Nucleated Cells, Synovial Fld 11:59:00 92540 cells/uL 0-200 H Final Performed by:Prasanth WILSON) RBC, Fluid 11:59:00 2000 /uL Not Estab. Final Performed by:Prasanth WILSON) Neut, Fluid 11:59:00 80 % Not Estab. Final Performed by:Prasanth WILSON) Lymphocytes, Fluid 11:59:00 12 % Not Estab. Final Performed by:Prasanth WILSON) Macrophages 11:59:00 8 % Not Estab. Final Performed by:Prasanth Rm (SB) Eosinophils, Fluid 11:59:00 0 % Not Estab. Final Performed by:Prasanth Rm (SB) Lining Cells, Synovial 11:59:00 Final Performed by:Prasanth Rm (SB) Crystal,Synovia l/Joint Fl 11:59:00 Comment None seen Final No crystals seen under normal or polarized light.Perfor med by:Prasanth Rm (SB) Comments: 11:59:00 Final Performed by:Prasanth WILSON) Panel Description: Anaerobic/Aerobic/Gram Stain Final Anaerobic Culture 12:17:00 Final report Final Performed by:Prasanth Rm (SB) Result 1 12:17:00 Comment Final No aerobic or anaerobic growth in 72 hours.Perfor med by:Prasanth Rm (SB) Aerobic Culture 15:42:00 Final report Final Performed by:Prasanth Rm (SB) Result 1 15:42:00 Comment Final No growth in 36 - 48 hours.Perfor med by:Prasanth Rm (SB) Gram Stain Result 20:06:00 Final report Final Performed by:Prasanth Rm (SB) Result 1 20:06:00 Comment Final Few white blood cells.Perfor med by:Prasanth Rm (SB) Result 2 20:06:00 No organisms seen Final Performed by:Prasanth Rm (SB) Advance Directives Directive Yes / No Effective Date File Name Other Directive No N/A N/A WARNING:The information contained in this section is historical and is provided for information only and does not constitute a legal document or any assurance that the information is still accurate. Please verify the information with the sampson of the legal document before using it for clinical purposes. Encounters Encounter Description Practice Location Reason(s) For Visit Diagnoses Date Provider Providers Copied on Encounter OFFICE/OUTPA TIENT VISIT EST [facility], [address], [address], [place] tel:[phone] [facility] Other infective (teno)synoviti s, right kneePyogenic arthritis of right knee joint, due to unspecified organismArthri tis due to other bacteria, right knee 4 Fissel Madi. [address] [facility], [place], [place], [address]. tel:[phone] Referring Provider: Artie Guo, [address], [place], [address]. tel:[phone] [facility], [address], [place], [address], [place] tel:[phone] [facility] Pyogenic arthritis of right knee joint, due to unspecified organismEffusi on, right kneeOther infective (teno)synoviti s, right knee 4 Fissel Madi. [address] [facility], [place], [place], [address]. tel:[phone] OFFICE/OUTPA TIENT VISIT EST [facility], [address] [facility] [address], [place], [address], [place] tel:[phone] [facility] Pain in right kneeBody mass index [BMI] 32.0-32.9, adultEffusion, right knee 4 Chas Hatfield. [address], [place], [place], [address], [place]. tel:[phone] Referring Provider: Artie Guo, [address], [place], [address]. tel:[phone] OFFICE/OUTPA TIENT VISIT EST [facility], [address] [facility] [address], [place], [address], [place] tel:[phone] [facility] Pain in right kneeArthritis due to other bacteria, right kneePyogenic arthritis of right knee joint, due to unspecified organismHistor y of surgery 3 Radha Lobo. [address], [place], [place], [address], [place]. tel:[phone] Referring Provider: Saul Powers, [address] [place], [address]. tel:[phone] [facility], [address], [place], [address], [place] tel:[phone] [facility] Arthritis due to other bacteria, right knee 3 Radha Carrillohanael. [address], [place], [place], [address], [place]. tel:[phone] Referring Provider: Saul Powers, [address] [place], [address]. tel:[phone] [facility], [address] [address], [place], [address], [place] tel:[phone] [facility] Arthritis due to other bacteria, right knee 3 L'Hommedieu Alexandria. [address] [facility], [place], [place], [address]. tel:[phone] [facility], [address], [place], [address], [place] tel:[phone] [facility] Bacterial arthritis of right kneePyogenic arthritis of right knee joint, due to unspecified organism 3 Radha Lobo. [address], [place], [place], [address], [place]. tel:[phone] OFFICE/OUTPA TIENT VISIT EST [facility], [address], [place], [address], [place] tel:[phone] [facility] Effusion, right kneeInternal derangement of right kneeChronic pain of right kneeOther chronic pain 3 L'Hommedieu Alexandria. [address] [facility], [place], [place], [address]. tel:[phone] Referring Provider: Saul Powers, [address] [place], [address]. tel:[phone] OFFICE/OUTPA TIENT VISIT EST [facility], [address], [place], [address], [place] tel:[phone] [facility] Body mass index [BMI] 32.0-32.9, adultPain in right kneeEffusion, right kneeStatus post revision of total replacement of left kneePrimary osteoarthritis of right knee Erasto- 3 Chas Hatfield. [address], [place], [place], [address], [place]. tel:[phone] Referring Provider: Saul Powers, [address], [place], [address]. tel:[phone] OFFICE/OUTPA TIENT VISIT EST [facility], [address] [address], [place], [address], [place] tel:[phone] [facility] Osteoarthritis of left glenohumeral jointOsteoarth ritis of right glenohumeral joint Jan- 3 Ritchie Valle. [address] [facility] [address], [place], [place], [address]. tel:[phone] Referring Provider: Baron Ramirez, [address], [place], [address] . tel:[phone] OFFICE/OUTPA TIENT VISIT EST [facility], [address] [facility] [address], [place], [address], [place] tel:[phone] [facility] CervicalgiaOth er spondylosis with radiculopathy, cervical region 3 James Draper. [address], [place], [place], [address], [place]. tel:[phone] Referring Provider: Mayela Barrios, [address], [place], [address]. tel:[phone] [facility], [address], [place], [address], [place] tel:[phone] [facility] Pain in left shoulderCervic algia Feb 3 No Information Referring Provider: Baron Ramirez, [address], [place], [address] . tel:[phone] OFFICE/OUTPA TIENT VISIT EST [facility], [address] [facility] [address], [place], [address], [place] tel:[phone] [facility] Pain due to total left knee replacement, initial encounterPrese nce of left artificial knee jointBody mass index [BMI] 32.0-32.9, adult Feb-2 0 3 Lv Marion. [address], [place], [address]. tel:[phone] Referring Provider: Saul Powers, [address], [place], [address]. tel:[phone] OFFICE/OUTPA TIENT VISIT EST [facility], [address] [address] [facility] [address], [place], [address], [place] tel:[phone] [facility] CervicalgiaOth er spondylosis with radiculopathy, cervical regionChronic left shoulder painOther chronic painBody mass index [BMI] 32.0-32.9, adult Feb-2 0 3 James Draper. [address], [place], [place], [address], [place]. tel:[phone] Referring Provider: Mayela Barrios, [address], [place], [address]. tel:[phone] OFFICE/OUTPA TIENT VISIT EST [facility], [address] [facility] [address], [place], [address], [place] tel:[phone] [facility] Neck painBody mass index [BMI] 32.0-32.9, adultOsteoarth ritis of right glenohumeral jointOsteoarth ritis of left glenohumeral joint Feb- 3 Kevin Pedro. [address], [place], [address]. tel:[phone] Referring Provider: Saul Powers, [address] [place], [address]. tel:[phone] OFFICE/OUTPA TIENT VISIT EST [facility], [address] [facility] [address] [address], [place], [address], [place] tel:[phone] [facility] Status post revision of total replacement of left kneeBody mass index [BMI] 32.0-32.9, adultStrain of left knee, initial encounter 3 L'Hommedieu Alexandria. [address] , [place], [place], [address]. tel:[phone] Referring Provider: aSul Powers, [address] [place], [address]. tel:[phone] OFFICE/OUTPA TIENT VISIT EST [facility], [address] [facility] [address] [address], [place], [address], [place] tel:[phone] [facility] Pain in left shoulderPain in right shoulderArthri tis of both glenohumeral jointsPrimary osteoarthritis , left shoulder 2 Ritchie Valle. [address] [facility] [address], [place], [place], [address]. tel:[phone] Referring Provider: Saul Powers, [address] [place], [address]. tel:[phone] OFFICE/OUTPA TIENT VISIT EST [facility], [address], [address], [place] tel:[phone] [facility] Pain in left kneeStatus post revision of total replacement of left kneeSprain of medial collateral ligament of left knee, initial encounter 2 L'Hommedieu Alexandria. [address] , [place], [place], [address]. tel:[phone] Referring Provider: Saul Powers, [address] [place], [address]. tel:[phone] OFFICE/OUTPA TIENT VISIT EST [facility], [address] [address], [place], [address], [place] tel:[phone] [facility] Status post revision of total replacement of left knee 2 L'Hommedieu Alexandria. [address], [place], [place], [address]. tel:[phone] Referring Provider: Saul Powers, [address] [place], [address]. tel:[phone] OFFICE/OUTPA TIENT VISIT EST [facility], [address] [facility], [place], [address], [place] tel:[phone] [facility] Status post revision of total replacement of left knee 2 Laramore Sanam. [address], [place], [address]. tel:[phone] Referring Provider: Saul Powers, [address] [place], [address]. tel:[phone] [facility], [address] [address] [facility] [place] [address], [address], [place] tel:[phone] [facility] Status post revision of total replacement of left knee 2 L'Hommedieu Alexandria. [address] , [place], [place], [address]. tel:[phone] Referring Provider: Bryant Aguayo, [address] [place], [address]. tel:[phone] [facility], [address], [address], [place] tel:[phone] [facility] Status post revision of total replacement of left knee 2 Laramore Sanam. [address], [place], [address]. tel:[phone] Referring Provider: Bryant Aguayo, [address] [place], [address]. tel:[phone] [facility], [address], [address], [place] tel:[phone] [facility] Status post revision of total replacement of left knee 2 Yuryamsandi Martinsa. [address], [place], [address]. tel:[phone] Referring Provider: Bryant Aguayo, [address] [place], [address]. tel:[phone] [facility], [address] [address], [place], [address], [place] tel:[phone] [facility] Status post revision of total replacement of left knee 2 Yuryamore Sanam. [address], [place], [address]. tel:[phone] Referring Provider: Bryant Aguayo, [address] [place], [address]. tel:[phone] [facility], [address], [address], [place] tel:[phone] [facility] Infection of total knee replacement, initial encounterStatu s post total left knee replacementPer jonathan history of other infectious and parasitic diseasesEncoun ter for insertion of prosthetic knee after prior removal of knee prosthesis 2 L'Hommedieu Norma. [address] [facility], [place], [place], [address]. tel:[phone] [facility], [address] [address], [place], [address], [place] tel:[phone] [facility] Infection of total left knee replacement, subsequent encounterHisto ry of total left knee replacementBod y mass index [BMI] 31.0-31.9, adult 2 Laramsandi Martinsa. [address], [place], [address]. tel:[phone] Referring Provider: Bryant Aguayo, [address] [place], [address]. tel:[phone] [facility], [address] [address], [place], [address], [place] tel:[phone] [facility] Status post revision of total replacement of right kneeBody mass index [BMI] 31.0-31.9, adult 2 Topper Tristan. [address], [place], [place], [address]. tel:[phone] Referring Provider: Bryant Aguayo, [address] [place], [address]. tel:[phone] [facility], [address] [facility] [address], [place], [address], [place] tel:[phone] [facility] Status post revision of total replacement of right knee 1 Topper Tristan. [address], [place], [place], [address]. tel:[phone] Referring Provider: Nabor Holt, [address] [place], [address]. tel:[phone] [facility], [address], [address], [place] tel:[phone] [facility] Infection of total knee replacement, initial encounterStatu s post revision of total replacement of right knee 1 L'Hommedieu Alexandria. [address] [place], [place], [address]. tel:[phone] OFFICE/OUTPA TIENT VISIT EST [facility], [address] [address], [place], [address], [place] tel:[phone] [facility] Infection of total knee replacement, initial encounterPrese nce of unspecified artificial knee joint 1 L'Hommedieu Alexandria. [address] [place], [place], [address]. tel:[phone] Referring Provider: Nabor Holt, [address] [place], [address]. tel:[phone] OFFICE/OUTPA TIENT VISIT EST [facility], [address], [address], [place] tel:[phone] [facility] History of total left knee replacementPai n due to total left knee replacement, initial encounterBody mass index [BMI] 33.0-33.9, adult Jul- 1 Micah'Hommedieu Alexandria. [address] [facility] [place], [place], [address]. tel:[phone] OFFICE/OUTPA TIENT VISIT NEW [facility], [address] [facility] [address], [place], [address], [place] tel:[phone] [facility] Pain in left kneeLeft leg painHistory of total left knee replacementBod y mass index [BMI] 33.0-33.9, adult 1 Micah'Hommedieu Alexandria. [address] [facility], [place], [place], [address]. tel:[phone] Referring Provider: Nabor Holt, [address] [place], [address]. tel:[phone] Family History Family Member Type Diagnosis Age At Onset Mother Problem Diabetes mellitus Sister Problem Thyroid disorder Brother Problem Cardiovascular disease Sister Problem Hypertension Father Problem Hypertension Mother Problem Cardiovascular disease Sister Problem Diabetes mellitus Sister Problem Cardiovascular disease Mother Problem Hypertension Mother Problem Thyroid disorder Brother Problem Hypertension Immunizations Vaccine Date Status Comments Pneumo (2 yrs or older)(PPV) administered Source: Other Provider Payers Payer name Insurance type Covered constitution party ID Authordannya timaritza(s) UHC Medicare Advantage PPO OT [id number] [facility] [id number] Social History Type Description Quantity Date Captured Comments Alcohol Use Details No Caffeine Use Details Unknown Tobacco Use Status Current non-smoker Smoking Status Never smoker Non-Smoking Tobacco Use Details : No Details Available : No Details Available Sex Female Vital Signs Date / Time: Height Weight BMI Pulse Rate Blood Pressure Temperature Respiratory Rate Body Surface Area Head Circumference Head Circ. Percentile Wt./Josh. Percentile BMI percentile Pulse Ox Inhaled Ox 11:09 AM 65.00 in 53.524 kg (118.00 lbs) 19.6 4 kg/m eter (2) Chief Complaint And Reason For Visit No Information Reason For Referral Reason For Referral No Information Plan Of Treatment Date Type Action Status Referral Ordered: RADEX KNE 3 VIEWS RT ordered Referral Ordered: RADEX KNE 3 VIEWS RT knee ordered Referral Ordered: MRI JT Lower w/o Contrast RT knee ordered Referral Ordered: RADEX KNE COMPL 4/MORE VIEWS RT knee ordered Referral Ordered: Ildefonso Al -[facility]opathic [facility]opathic Physicians : Psychiatry & Neurology : Neurology (related to Other spondylosis with radiculopathy, cervical region) ordered Referral Referred To: Ildefonso Al [address] [place], [phone] Ordered: Referrals: [facility]opathic Physicians : Psychiatry & Neurology : Neurology. Ildefonso Al. Evaluate and treat ordered Referral Ordered: MRI Spine w/o Contrast-Cervical Appointment date/timeframe: 01/10/2023 ordered Referral Ordered: MRI JT Upper w/o Contrast LT shoulder Appointment date/timeframe: 01/10/2023 ordered Referral Ordered: RADEX SPI CRV 2/3 VIEWS spine, cervical ordered Referral Ordered: RADEX BILLY COMPL MINIMUM 2 VIEWS LT ordered Referral Ordered: RADEX BILLY COMPL MINIMUM 2 VIEWS RT ordered Referral Ordered: RADEX KNE 1/2 VIEWS LT knee ordered Referral Ordered: RADEX KNE 3 VIEWS LT ordered Referral Ordered: B1&/JT IMG 3 PHASE STD LT knee Appointment date/timeframe: 08/11/2021 ordered Referral Ordered: UPR/LXTR DEEPTI DUPLEX STDY UNI/LMTD LT leg Appointment date/timeframe: 01/05/2021 ordered Referral Ordered: RADEX KNE 3 VIEWS LT knee ordered Future Order: Lab Order CBC With Differential/Platelet ([id number]), Ordered on: Ordered Future Order: Lab Order C-Reacti ve Protein, Quant ([id number]), Ordered on: Ordered Future Order: Lab Order Sediment ation Rate-Westergren ([id number]), Ordered on: Ordered Future Order: Lab Order CBC With Differential/Platelet ([id number]), Ordered on: Ordered Future Order: Lab Order C-Reacti ve Protein, Quant ([id number]), Ordered on: Ordered Future Order: Lab Order Sediment ation Rate-Westergren ([id number]), Ordered on: Ordered History Of Present Illness Encounter Date Complaint History Of Prese nt Illness No Information Functional Status Date Functional Assessmen t No Information Instructions Date Instruction Additional Infor mation Rest, ice and elevate. Related t o Pyogenic arthritis of right knee joint, due to unspecified organism Fall prevention home exercise program handout provided Giving encouragement to exercise Related to Body mass index [BMI] 32.0-32.9, adult Giving encouragement to exercise Related to Body mass index [BMI] 32.0-32.9, adult Giving encouragement to exercise Related to Body mass index [BMI] 32.0-32.9, adult Giving encouragement to exercise Related to Body mass index [BMI] 32.0-32.9, adult Giving encouragement to exercise Related to Body mass index [BMI] 32.0-32.9, adult Giving encouragement to exercise Related to Body mass index [BMI] 32.0-32.9, adult Giving encouragement to exercise Related to Body mass index [BMI] 31.0-31.9, adult Giving encouragement to exercise Related to Body mass index [BMI] 31.0-31.9, adult Giving encouragement to exercise Related to Body mass index [BMI] 33.0-33.9, adult Discussed treatment options Rela abdi to Left leg pain Giving encouragement to exercise Related to Body mass index [BMI] 33.0-33.9, adult Fall prevention home exercise program handout provided Assessments Type Assessment Date assessment Other infective (teno)synovitis, right knee assessment Pyogenic arthritis o f right knee joint, due to unspecified organism assessment Arthritis due to other bacteria, right knee Patient Care Teams Name Effective Dates (start - stop) Status Members No Information
--- NOTE | ~2025-09-01 | XR_ITS ---
XR wrist LT min 3V INDICATION: swelling . COMPARISON: None. FINDINGS: Frontal, lateral and oblique views of the left wrist were obtained. Extensive erosive destructive changes of the joints in the wrist are noted. IMPRESSION: Extensive erosive changes. Reviewed, dictated and finalized at location S. IMPRESSION: Extensive erosive changes.
--- NOTE | ~2025-09-01 | XR_ITS ---
EXAMINATION: XR chest 1V portable COMPARISON: No comparisons available. HISTORY: Leukocytosis FINDINGS: The lungs are clear, no effusion. No pneumothorax. Mild cardiomegaly. Mediastinal and hilar contours are within normal limits. Severe degenerative changes of the glenohumeral joints bilaterally. Miscellaneous: Left venous line Terminates in the SVC. Impression: No acute cardiopulmonary abnormality. Reviewed, dictated and finalized at location P. Impression: No acute cardiopulmonary abnormality.
--- NOTE | ~2025-09-01 | US_ITS ---
EXAMINATION: US knee asp inj w image RT DATE: 09/10/2025 16:15 INDICATION: Right knee pain and leukocytosis TECHNIQUE: The procedure including the risks, benefits, and alternatives was discussed with the patient. Risks discussed included bleeding, infection and allergic reaction. The patient understood the risks and agreed to proceed. A timeout was performed to verify the patient's name, date of , and procedure to be performed. The skin overlying the suprapatellar right knee joint was prepped and draped in usual sterile fashion. Anesthetic was administered with 1% lidocaine subcutaneously. An 20 gauge spinal needle was then advanced into the suprapatellar pouch joint under continuous sonographic guidance. Fluid was aspirated and sent to the lab for studies as ordered by the referring physician. The entry site was cleaned and dressed. There were no immediate complications. FINDINGS: Ultrasound images demonstrate a distention of the suprapatellar pouch of the right knee with small amount of anechoic fluid and prominent surrounding very hypoechoic synovitis. Subsequent images demonstrate the needle advanced into the effusion. IMPRESSION: 1. Successful ultrasound-guided right knee joint aspiration yielding 13 mL of turbid reddish orange-colored fluid. Reviewed, dictated and finalized at location A.
--- NOTE | ~2025-09-01 | US_ITS ---
US venous doppler LE LT INDICATION: Left lower extremity pain and swelling. COMPARISON: None. TECHNIQUE: The deep veins of the left lower extremity were evaluated with Duplex Doppler, color Doppler, and high-resolution B-mode sonography. Evaluated veins include the common femoral, femoral, and popliteal veins. The calf veins were also evaluated. Compression and augmentation maneuvers were performed. FINDINGS: The visualized deep veins of the left lower extremity were compressible and demonstrated spontaneous phasic waveforms with an appropriate response to augmentation maneuvers. The visualized calf veins were patent. IMPRESSION: There was no sonographic evidence of deep vein thrombosis in the left lower extremity. Reviewed, dictated and finalized at location S. IMPRESSION: There was no sonographic evidence of deep vein thrombosis in the left lower ext remity.
--- NOTE | ~2025-09-01 | US_ITS ---
US venous doppler UE BI HISTORY: Pain and swelling in both upper extremities. COMPARISON: None available. TECHNIQUE: The deep veins of both upper extremities were evaluated with Duplex Doppler, color Doppler, and high-resolution B-mode sonography. Evaluated veins include the subclavian, axillary and brachial veins. The superficial veins including the cephalic, radial and ulnar veins were also evaluated. Cursory examination of the internal jugular veins were obtained bilaterally. Compression and augmentation maneuvers were performed. FINDINGS: The deep veins of both upper extremities were compressible and demonstrated spontaneous phasic waveforms with an appropriate response to augmentation maneuvers. The visualized veins demonstrated normal patency. IMPRESSION: There was no sonographic evidence of deep vein thrombosis in both upper extremities. Reviewed, dictated and finalized at location S. IMPRESSION: There was no sonographic evidence of deep vein thrombosis in both upper extremi ties.
--- NOTE | ~2025-09-01 | XR_ITS ---
XR chest 1V portable INDICATION:Fevers . REFERENCE: None FINDINGS: A single AP of the chest demonstrates normal heart size. The lungs are clear. There is no evidence of pneumothorax or pleural effusion. Left Port-A-Cath is in place. IMPRESSION: No acute pulmonary findings. Reviewed, dictated and finalized at location S.
--- NOTE | ~2025-09-01 | US_ITS ---
US venous doppler LE RT INDICATION: Right lower extremity pain and swelling. COMPARISON: None. TECHNIQUE: The deep veins of the right lower extremity were evaluated with Duplex Doppler, color Doppler, and high-resolution B-mode sonography. Evaluated veins include the common femoral, femoral, and popliteal veins. The calf veins were also evaluated. Compression and augmentation maneuvers were performed. FINDINGS: The visualized deep veins of the right lower extremity were compressible and demonstrated spontaneous phasic waveforms with an appropriate response to augmentation maneuvers. The visualized calf veins were patent. IMPRESSION: There was no sonographic evidence of deep vein thrombosis in the right lower extremity. Reviewed, dictated and finalized at location S. IMPRESSION: There was no sonographic evidence of deep vein thrombosis in the right lower ex tremity.
--- NOTE | ~2025-09-01 | XR_ITS ---
Examination: XR chest 1V portable Clinical History: elevated WBC. lungs slightly diminished Comparison: 09/03/2025 Technique: Portable AP Findings: Left chest Mediport. Heart size upper limit of normal. Lungs clear. No acute bony abnormality. IMPRESSION: 1. No acute cardiopulmonary findings given portable technique. Reviewed, dictated and finalized at location R.
--- NOTE | ~2025-09-01 | CT_ITS ---
EXAMINATION: CT brain wo con DATE: 09/04/2025 10:54 INDICATION: Left facial droop TECHNIQUE: Computed tomography (CT) of the head was performed without intravenous contrast. Sagittal and coronal reconstructions were performed. The mA was adjusted according to patient size. Iterative reconstruction technique was employed. The dose-length product was 605.33 mGy-cm. COMPARISON: head CT dated 07/13/2024 FINDINGS: No acute intracranial hemorrhage, acute infarction or abnormal extra axial fluid collection. Unchanged small old lacunar infarct at the anterior limb of the right internal capsule. There is mild to moderate scattered white matter hypoattenuation consistent with chronic small vessel ischemic disease. Symmetric prominence of the sulci consistent with mild age-appropriate diffuse cerebral volume loss. Ventricles are normal and symmetric. No mass/mass effect. Small right mastoid effusion. The orbits, paranasal sinuses and left mastoid air cells are normal. IMPRESSION: 1. Unchanged small old lacunar infarct at the anterior limb of the right internal capsule. No acute intracranial process. 2. Stable appearance of age-related changes including mild diffuse volume loss and mild to moderate scattered white matter hypoattenuation consistent with chronic small vessel ischemic disease. Reviewed, dictated and finalized at location A. IMPRESSION: 1. Unchanged small old lacunar infarct at the anterior limb of the right finance intern al capsule. No acute intracranial process. 2. Stable appearance of age-related changes including mild diffuse volume loss and mild to moderate scattered white matter hypoattenuation consistent with chr onic small vessel ischemic disease.
--- NOTE | ~2025-09-01 | XR_ITS ---
XR wrist RT min 3V INDICATION: swelling . COMPARISON: None. FINDINGS: Frontal, lateral and oblique views of the right wrist were obtained. Severe erosive changes are noted throughout the intercarpal joint. IMPRESSION: No acute fracture or dislocation. Diffuse severe erosive changes. Reviewed, dictated and finalized at location S.
--- NOTE | ~2025-09-01 | MR_ITS ---
EXAMINATION: MR brain/brain stem wo con DATE: 09/07/2025 11:48 INDICATION: Altered mental status. Stroke. TECHNIQUE: Magnetic resonance imaging (MRI) of the brain and brainstem was performed without intravenous contrast. COMPARISON: Brain MRI 03/23/2015, head CT 09/04/2025 FINDINGS: There are scattered acute infarcts in the deep white matter of the frontal and parietal lobes. There is no intracranial hemorrhage or abnormal mass lesion. There are scattered areas of nonspecific increased T2-weighted signal intensity in the cerebral white matter and akhil. The ventricles are normal in size. There is mild mucosal thickening in the paranasal sinuses. The orbits are normal. There is a right mastoid effusion. IMPRESSION: 1. Scattered acute infarcts in the deep white matter of the bilateral frontal and parietal lobes. 2. Moderate nonspecific cerebral white matter disease and pontine disease, which likely represents chronic small vessel ischemic disease. Reviewed, dictated and finalized at location E. IMPRESSION: 1. Scattered acute infarcts in the deep white matter of the bilateral frontal a nd parietal lobes. 2. Moderate nonspecific cerebral white matter disease and pontine disease, whic h likely represents chronic small vessel ischemic disease.
--- NOTE | ~2025-09-01 | XR_ITS ---
XR knee RT 3V INDICATION: Pain and swelling . COMPARISON: None. FINDINGS: Frontal, lateral and oblique views of the right knee demonstrate no acute fracture or dislocation. Degenerative changes are noted with loss of joint space, subchondral sclerosis and cystic changes. Large joint effusion is noted. IMPRESSION: No acute fracture or dislocation. Severe degenerative changes. Large suprapatellar joint effusion. Reviewed, dictated and finalized at location S.
--- NOTE | ~2025-09-01 | XR_ITS ---
EXAMINATION: XR chest 1V portable COMPARISON: No comparisons available. HISTORY: rapid response FINDINGS: Mild pulmonary venous congestion. No pneumothorax. Mild cardiomegaly. Mediastinal and hilar contours are within normal limits. Severe degenerative changes of the glenohumeral joints bilaterally. Miscellaneous: Left line terminates in the SVC. Impression: Mild CHF Reviewed, dictated and finalized at location P. Impression: Mild CHF
--- OUTSIDE RECORDS SUMMARY | 2025-09-01 16:07 | XMS_ITS | Clinical Summary ---
Author Organization 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 Gender Identity Not on file Sexual [...] 4:24 PM CDT Height 165.1 cm (5' 5) 06/25/2023 4:24 PM CDT Body Mass Index 32.95 06/25/2023 4:24 PM CDT Plan of Treatment Health Maintenance Due Date Last Done Comments Colon Cancer Screening-Colonoscopy 1950 Depression Screening 1950 Fall Risk Assessment 1950 Hepatitis C Screening 1950 Osteoporosis Screening-Bone Density Scan 1950 Well Visit 65+ 2015 Zoster Vaccine (2 of 3) 12/28/2015 11/02/2015 Covid-19 Vaccine (2024-2 6 season) 2025 09/13/2022, 05/27/2022, 07/22/2021, Additional history exists Influenza Vaccine (#1) 2025 4, 09/13/2022, 09/28/2021, Additional history exists DTaP/Tdap/Td Vaccine (5 - Td or Tdap) 05/07/2035 05/07/2025, 07/31/2020, 08/27/2019, Additional history exists Pneumococcal vaccine 65+ Completed 019, 08/06/2019, 09/02/2016 Hepatitis B Screening Completed 07/31/2020, 020 Breast Cancer Screening-Mammogram Discontinued 05/12/2022, 05/12/2022, 05/13/2020 Insurance [facility] [employer] [place] [address] [place] [address] UHC MEDICARE ADVANTAGE [facility] Care Teams Supervisor Phosphorus Processing Relationship Specialty Start Date End Date Saul Powers MD [address] [place] [address] PCP - General Family Medicine 06/19/23
--- OUTSIDE RECORDS SUMMARY | 2025-09-01 16:07 | XMS_ITS | Encounter Summary ---
Author Organization [employer] Address [address] [place] [address] Care Team Providers Care General Road Supervisor Name Role Phone Artie Perkins MD Primary Care Provider Encounter Details Date Type Department Care Team (Latest Contact Info) Description 02/18/2005 Outpatient Historical [facility] Ildefonso Cameron MD [address] [place] [id number] [facility] (Primary Dx) Social History Tobacco Use Types Packs/Day Years Used Date Smoking Tobacco: Never Assessed Comments Unknown Sex and Gender Information Value Date Recorded Sex Assigned at Not on file Legal Sex Female 3:35 AM DELIVERY ANALYST Gender Identity Not on file Sexual Orientation Not on file documented as of this encounter Plan of Treatment Not on file documented as of this encounter Procedures Procedure Name Priority Date/Time Associated Diagnosis Comments HEMOGLOBIN AND HEMATOCRIT Routine 02/17/2005 3:45 PM DELIVERY ANALYST BASIC METABOLIC PANEL Routine 02/17/2005 3:45 PM DELIVERY ANALYST documented in this encounter Results * HEMOGLOBIN AND HEMATOCRIT (02/17/2005 3:45 PM DELIVERY ANALYST) HEMOGLOBIN 12.2 11.8 - 14.8 g/dL INTERFACE SYSTEM HEMATOCRIT 38.1 35.5 - 44.0 % INTERFACE SYSTEM 02/17/2005 3:45 PM DELIVERY ANALYST us Ildefonso Cameron MD HEMATOLOGY ORDERABLES Final Re sult Performing Organization Address [facility] de Phone Number INTERFACE SYSTEM Refer to clinic/hospital department * (ABNORMAL) BASIC METABOLIC PANEL (02/17/2005 3:45 PM DELIVERY ANALYST) GLUCOSE 96 65 - 109 mg/dL INTERFACE [...] 30 mmol/L INTERFACE SYSTEM 02/17/2005 3:45 PM DELIVERY ANALYST us Ildefonso Cameron MD CHEMISTRY ORDERABLES Final Res ult Performing Organization Address [facility] Phone Number INTERFACE SYSTEM Refer to clinic/hospital department documented in this encounter Visit Diagnoses Diagnosis Derangement of posterior horn of medial meniscus- Primary documented in this encounter Additional Health Concerns Infection Onset Date Last Indicated Resolved Time R/O Respiratory 12/22/2023 12/22/2023 12/22/2023 1 :57 PM DELIVERY ANALYST documented as of this encounter Care Teams General Road Supervisor Relationship Specialty Start Date End Date Artie Perkins MD [address] [place] [id number] PCP - General Internal Medicine 12/13/23 documented as of this encounter
--- OUTSIDE RECORDS SUMMARY | 2025-09-01 16:07 | XMS_ITS | Encounter Summary ---
Author Organization [employer] Address 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
--- OUTSIDE RECORDS SUMMARY | 2025-09-01 16:07 | XMS_ITS ---
Author Organization [facility] Care Team Providers Care Information Resource Consultant Name Role Phone Mauro Mattson Unavailable Unavailable Zo Mattson Unavailable Unavailable Allergies and adverse reactions Code CodeSystem Substance Reaction Severity StartDate Concern Status 033373 RXNORM Ustekinumab Unknown 06/16/2023 active 39020 RXNORM Tetracycline Mild 06/16/[address] Sulfa Antibiotics Unknown 06/16/2023 active 8640 RXNORM predniSONE Mild 06/16/2023 active 7984 RXNORM Penicillin Unknown 06/16/2023 active Peanut Severe 06/16/2023 active 23540 RXNORM Lisinopril Mild 06/16/2023 active Latex Unknown 06/16/2023 active 5032 RXNORM guaiFENesin Mild 06/16/2023 active 4053 RXNORM Erythromycin Unknown 06/16/2023 active Banana Mild 06/16/2023 active 99381 RXNORM Atorvastatin Unknown 06/16/2023 active 0546344 RXNORM Apremilast Unknown 06/16/2023 active 35293 RXNORM amLODIPine Mild 06/16/2023 active 536536 RXNORM Adalimumab Unknown 06/16/2023 active Care Team Name Role Address Phone Organization Max Mattson PCP [address] [place], [address], [place] (Office): : : [facility] 06/16/2023 - 06/25/2023 Zo Mattson [address] [facility] , [place], [place], [facility] (Office): : : [facility] 06/16/2023 - 06/25/2023 Goals Section Goals Description Status Target Date Needs will be [...] completed tuberculin skin test; unspecified formulation lotNumber: [id number] expiry: 04/27/2025 Mfg: Extra Life Given 0.1 ml Right Forearm intradermally Step 1 of Multi-step with next step required 98 CVX created date: 06/21/2023 consent date: 06/21/2023 administer ed date: 06/21/2023 Educated by Donovan Vieyra on 06/21/2023 Zoster (Shingles) completed zoster vaccine, live lotNumber: [id number] Mfg: zostavax Given intramuscularly 121 CVX created date: 06/21/2023 administer ed date: 11/02/2015 Hepatitis A completed hepatitis A and hepatitis B vaccine lotNumber: [id number] Given intramuscularly 104 CVX created date: 06/21/2023 administer ed date: 07/31/2020 SARS-COV-2 (COVID-19) completed SARS-COV-2 (COVID-19) vaccine, mRNA, spike protein, LNP, preservative free, 30 mcg/0.3mL dose lotNumber: [id number] Mfg: Yo Given 0.3 ml intramuscularly Step 2 of Multi-step with next step required 208 CVX created date: 06/21/2023 administer ed date: 02/12/2021 SARS-COV-2 (COVID-19) completed SARS-COV-2 (COVID-19) vaccine, mRNA, spike protein, LNP, preservative free, 30 mcg/0.3mL dose lotNumber: [id number] Mfg: Fungos Given 0.3 ml intramuscularly Step 1 of Multi-step with next step required 208 CVX created date: 06/21/2023 administer ed date: 01/15/2021 SARS-COV-2 Booster (COVID-19 Booster) completed SARS-COV-2 (COVID-19) vaccine, mRNA, spike protein, LNP, preservative free, 100 mcg/0.5mL dose or 50 mcg/0.25mL dose lotNumber: [id number] Mfg: Pfiizer Given 0.3 ml intramuscularly 207 CVX created date: 06/21/2023 administer ed date: 05/27/2022 SARS-COV-2 Booster (COVID-19 Booster) completed SARS-COV-2 (COVID-19) vaccine, mRNA, spike protein, LNP, preservative free, 100 mcg/0.5mL dose or 50 mcg/0.25mL dose lotNumber: [id number] Mfg: Pfizer Booster Given 0.3 ml intramuscularly 207 CVX created date: 06/21/2023 administer ed date: 07/22/2021 Mental Status Section Date Assessment Total Score Description 06/25/2023 CAM 4 Delirium indica abdi 06/23/2023 BIMS 12 moderate cognit kaushik impairment CAM 4 Delirium indica abdi PHQ-9 15 moderately derek re depression Insurance Providers Plan of Treatment Section Interventions Intervention Code Code System Display Name Proposed D ate Problems Problem # Description Date of onset Resolved Date Code CodeSystem Concern Status 1 ACUTE EMBOLISM AND THROMBOSIS OF OTHER SPECIFIED DEEP VEIN OF UNSPECIFIED LOWER EXTREMITY 06/17/20 23 06/19/[address] completed 2 CHRONIC VENOUS HYPERTENSION (IDIOPATHIC) WITH OTHER COMPLICATIONS OF BILATERAL LOWER EXTREMITY 06/17/[address] active 3 GASTRO-ESOPHAGEA L REFLUX DISEASE WITHOUT ESOPHAGITIS 06/17/[address] active 4 ACQUIRED ABSENCE OF BOTH CERVIX AND UTERUS 06/16/[address] active 5 ANEMIA, UNSPECIFIED 06/16/[address] active 6 ARTHRITIS DUE TO OTHER BACTERIA, RIGHT KNEE 06/16/[address] active 7 EFFUSION, RIGHT KNEE 06/16/[address] active 8 ELEVATED WHITE BLOOD CELL COUNT, UNSPECIFIED 06/16/[address] active 9 ENCOUNTER FOR SURGICAL AFTERCARE FOLLOWING SURGERY ON THE SKIN AND SUBCUTANEOUS TISSUE 06/16/[address] active 10 ESSENTIAL (PRIMARY) HYPERTENSION 06/16/[address] active 11 OTHER ABNORMALITIES OF GAIT AND MOBILITY 06/16/[address] active 12 PERSONAL HISTORY OF OTHER VENOUS THROMBOSIS AND EMBOLISM 06/16/[address] active 13 PRESENCE OF UNSPECIFIED ARTIFICIAL KNEE JOINT 06/16/[address] active 14 RHEUMATOID ARTHRITIS WITH RHEUMATOID FACTOR, UNSPECIFIED 06/16/[address] active 15 UNSTEADINESS ON FEET 06/16/[address] active Reason for Referral No Reasons for Referral Entered Social History Social History Observation Description Start Date End Date Code Code System Current Smoking Status Tobacco smoking consumption unknown 812026798 SNOMED CT Sex Assigned At Female 1950 45472-1 [facility] Gender Identity Sexual Orientation Vital Signs Code Code System Vitals Name Values and Units Timing Information 70311-9 [facility] Pain Level Value=0.0 06/25/2023 9279-1 [facility] Respiratory Rate Value=18.0 Units=/m in 06/25/2023 8462-4 [facility] Blood Pressure-Diastolic Value=84 Un its=mmHg 06/25/2023 8480-6 [facility] Blood Pressure-Systolic Mvddn=984 Un its=mmHg 06/25/2023 8310-5 [facility] Body Temperature Value=97.4 Units= F 06/25/2023 8867-4 [facility] Heart rate Mdgjd=561.0 Units=/min 06/25/2023 04451-4 [facility] O2 % BldC Oximetry Value=98.0 Units= % 06/25/2023 16810-8 [facility] Weight Iwoaj=536.0 Units=Lbs 11/2022 8302-2 [facility] Height Value=65.0 Units=Inches 06/17/2023
--- OUTSIDE RECORDS SUMMARY | 2025-09-01 16:07 | XMS_ITS | Encounter Summary ---
Author Organization [employer] Address [address] [place] [address] Care Team Providers Care Electrical Test Engineer Name Role Phone Artie Perkins MD Primary Care Provider Encounter Details Date Type Department Care Team (Late st Contact Info) Description 08/10/1998 Outpatient Historical [facility] María Elena Ch Social History Tobacco Use Types Packs/Day Years Used Date Smoking Tobacco: Never Assessed Comments Unknown Sex and Gender Information Value Date Recorded Sex Assigned at Not on file Legal Sex Female 3:35 AM PRIMER SUPERVISOR Gender Identity Not on file Sexual Orientation Not on file documented as of this encounter Plan of Treatment Not on file documented as of this encounter Visit Diagnoses Not on filedocumented in this encounter Additional Health Concerns Infection Onset Date Last Indicated Resolved Time R/O Respiratory 12/22/2023 12/22/2023 12/22/2023 1 :57 PM PRIMER SUPERVISOR documented as of this encounter Care Teams Electrical Test Engineer Relationship Specialty Start Date End Date Artie Perkins MD [address] [place] [address] PCP - General Internal Medicine 12/13/23 documented as of this encounter
--- OUTSIDE RECORDS SUMMARY | 2025-09-01 16:07 | XMS_ITS | Encounter Summary ---
Author Organization [facility] Address [address] [place] [address] Care Team Providers Care Inspector Assembly Name Role Phone Artie Perkins MD Primary Care Provider Encounter Details Date Type Department Care Team (Late st Contact Info) Description 02/17/2005 Outpatient Historical [facility] Support Serv. (Adt Cardiology-[facility]) [address] [place] [address] Chad Greer Social History Tobacco Use Types Packs/Day Years Used Date Smoking Tobacco: Never Assessed Comments Unknown Sex and Gender Information Value Date Recorded Sex Assigned at Not on file Legal Sex Female 3:35 AM TEMPLATE LAYOUT WORKER Gender Identity Not on file Sexual Orientation Not on file documented as of this encounter Plan of Treatment Not on file documented as of this encounter Visit Diagnoses Not on filedocumented in this encounter Additional Health Concerns Infection Onset Date Last Indicated Resolved Time R/O Respiratory 12/22/2023 12/22/2023 12/22/2023 1 :57 PM TEMPLATE LAYOUT WORKER documented as of this encounter Care Teams Inspector Assembly Relationship Specialty Start Date End Date Artie Perkins MD [address] [facility] [place] [address] PCP - General Internal Medicine 12/13/23 documented as of this encounter
--- OUTSIDE RECORDS SUMMARY | 2025-09-01 16:07 | XMS_ITS | Encounter Summary ---
Author Organization [employer] Address [address] [place] [address] Care Team Providers Care Ground Layer Name Role Phone Artie Perkins MD Primary Care Provider [phone] Encounter Details Date Type Department Care Team (Latest Contact Info) Description 02/24/2005 Outpatient Historical [facility] CARDIOPULMONARY Ildefonso Cameron MD [address] [place] [address] SWELLING OF LIMB (Primary Dx) Social History Tobacco Use Types Packs/Day Years Used Date Smoking Tobacco: Never Assessed Comments Unknown Sex and Gender Information Value Date Recorded Sex Assigned at Not on file Legal Sex Female 3:35 AM PRO SHOP ATTENDANT Gender Identity Not on file Sexual Orientation Not on file documented as of this encounter Plan of Treatment Not on file documented as of this encounter Visit Diagnoses Diagnosis Swelling of limb- Primary documented in this encounter Additional Health Concerns Infection Onset Date Last Indicated Resolved Time R/O Respiratory 12/22/2023 12/22/2023 12/22/2023 1 :57 PM PRO SHOP ATTENDANT documented as of this encounter Care Teams Ground Layer Relationship Specialty Start Date End Date Artie Perkins MD [address] [place] [address] PCP - General Internal Medicine 12/13/23 documented as of this encounter
--- OUTSIDE RECORDS SUMMARY | 2025-09-01 16:08 | XMS_ITS | Encounter Summary ---
Author Organization [facility] Address [address] [facility] [place] [address] Care Team Providers Care Obstetrician Name Role Phone Nabor Valle MD Primary Care Provider Chanelle Flood SECRET SERVICE AGENT-MANAGER FURNITURE Unavailable [phone] Veronica Henderson SECRET SERVICE AGENT-MANAGER FURNITURE Unavailable Rosa Dobson MD Unavailable Rosario Lundberg MD Unavailable Veronica Henderson SECRET SERVICE AGENT-MANAGER FURNITURE Primary Care Provider Veronica Henderson SECRET SERVICE AGENT-MANAGER FURNITURE Unavailable Saul Powers MD Primary Care Provider Veronica Otero SECRET SERVICE AGENT-MANAGER FURNITURE Unavailable Veronica Henderson SECRET SERVICE AGENT-MANAGER FURNITURE Unavailable Saul Powers MD Unavailable Unavailable Shelby Nguyen [facility] Unavailable Shara Bello CLIENT CARE CONSULTANT Unavailable Saul Powers MD Unavailable Unavailable Christina Kirk RN Unavailable Smita Bolanos RN Unavailable Smita Bolanos RN Unavailable Veronica Henderson SECRET SERVICE AGENT-MANAGER FURNITURE Unavailable [phone] Saul Powers MD Primary Care Provider Artie Zepeda MD Primary Care Provider Saul Powers MD Unavailable Unavailable Martin Hutchison MA Unavailable [phone] Saul Powers MD Unavailable Unavailable Corinne San SECRET SERVICE AGENT-MANAGER FURNITURE Unavailable Artie Perkins MD Unavailable Martin Hutchison MA Unavailable [phone] Kobe Collado MD Primary Care Provider [phone] Encounter Details Date Type Department Care Team (Late st Contact Info) Description 07/24/2018 [facility] Outpatient Visit [facility] - Endocrinology [address], [address] [place] [address] Rosa Dobson MD [address] [facility] [address] [place] [address] Social History Tobacco Use Types [...] Assessment Author Yes 12/27/2017 12:36 PM Yoly Lela RN * Does person have difficulty dressing/bathing? [...] on filedocumented in this encounter Care Teams Obstetrician Relationship Specialty Start Date End Date Nabor Valle MD PCP - General Family Medicine 08/29/16 07/04/21 Chanelle Flood APRN-CNP [address] [place] [address] PCP - Attributed-[facility] 01/19/20 05/19/21 Veronica Henderson APRN-CNP [address] [place] [address] PCP - General Nurse Practitioner Family 07/05/21 01/06/22 Veronica Henderson APRN-CNP [address] [place] [address] PCP - Attributed-[facility] 05/20/21 11/04/21 Saul Powers MD [address] [place] [address] PCP - General Family Medicine 01/07/22 11/15/23 Veronica Henderson APRN-CNP [address] [place] [address] PCP - [facility] 12/21/21 05/06/22 Veronica Henderson SECRET SERVICE AGENT-MANAGER FURNITURE [address] [place] [address] PCP - [facility]ributed[facility] [place] 07/21/22 11/19/22 Saul Powers MD PCP - Attributed[facility] [place] 11/20/22 02/04/23 Saul Powers MD PCP - Attributed[facility] [place] 04/20/23 06/19/23 Veronica Henderson SECRET SERVICE AGENT-MANAGER FURNITURE [address] [place] [address] PCP - Attributed[facility] [place] 06/20/23 09/06/23 Saul Powers MD PCP - General Family Medicine 11/16/23 11/21/23 Artie Perkins MD [address] [place] [address] PCP - General Internal Medicine 11/27/23 11/19/24 Saul Powers MD PCP - Attributed[facility] [place] 01/19/24 02/08/24 Saul Powers MD PCP - [facility]ributed[facility] [place] [facility] 02/19/24 09/06/24 Artie Perkins MD [address] [place] [address] PCP - Attributed[facility] [place] STL P4P 01/18/25 04/06/25 Kobe Collado MD [address] [place] [address] PCP - General Family Medicine 11/20/24 Veronica Henderson APRN-MANAGER FURNITURE [address] [place] [address] Nurse Practitioner Family 06/10/21 Rosa Dobson MD [address] [id number] Rheumatology 06/10/21 Rosario Lundberg MD [address] [id number] Dermatology 06/10/21 Shelby Nguyen [facility] Outpatient Aerospace Engineer Care Management 06/08/23 06/08/23 Shara Bello, CLIENT CARE CONSULTANT Outpatient Aerospace Engineer Care Management 06/08/23 06/22/23 Christina Kirk RN Post Acute Anchor Tack PullerDialysis Tech 06/22/23 06/26/23 Smita Bolanos, RN Anchor Tack PullerDialysis Tech 06/26/23 06/27/23 Smita Bolanos, RN Anchor Tack PullerDialysis Tech 07/05/23 08/14/23 Martin Hutchison, JAYA [address] [facility] [address] [place] [address] Care Coordination Specialist Care Management 02/27/24 04/12/24 Corinne San APRN-MANAGER FURNITURE [address] [place] [address] Nurse Practitioner 05/15/24 Martin Hutchison MA [address] [facility] [address] [place] [address] Care Coordination Specialist Care Management 05/22/25 05/26/25 documented as of this encounter
--- OUTSIDE RECORDS SUMMARY | 2025-09-01 16:08 | XMS_ITS | Clinical Summary ---
Author Organization [facility] Address [address] [place] [address] Care Team Providers Care Cement Boat And Barge Loader Name Role Phone None, Provider MD Primary [...] place to sleep or slept in a mcfp (including now)? No 07/11/2023 Comments No Sex and Gender Information Value Date Recorded Sex Assigned at Not on file Legal Sex Female 10:31 AM CDT Gender Identity Not on file Sexual Orientation Not on file Last Filed Vital Signs Vital Sign Reading Time Taken Comments Blood Pressure 166/84 10/10/2024 6:00 PM THEORETICAL PHYSICIST Pulse 73 10/10/2024 6:26 PM THEORETICAL PHYSICIST Temperature 36.3 C (97.4 F) 10/10/2024 3:57 PM THEORETICAL PHYSICIST Respiratory Rate 18 10/10/2024 6:26 PM THEORETICAL PHYSICIST Oxygen Saturation 100% 10/10/2024 6:26 PM THEORETICAL PHYSICIST Inhaled Oxygen Concentration - - Weight 56 kg (123 lb 7.3 oz) 10/10/2024 3:57 PM THEORETICAL PHYSICIST Height 165.1 cm (5' 5) 10/10/2024 3:57 PM THEORETICAL PHYSICIST Body Mass Index 20.54 10/10/2024 3:57 PM THEORETICAL PHYSICIST Plan of Treatment Health Maintenance Due Date Last Done Comments Colorectal Cancer Screening Colonoscopy (10 Years) 1950 Annual Medicare Wellness Visit 2015 Dexa Scan (General) 2015 Zoster Vaccines (1 of 2) 12/28/2015 11/02/2015 RSV Immunization or 60+ Years (1 - 1-dose 75+ series) 2025 COVID-19 Vaccine (7 - Mixed Product risk season) 2025 08/13/2024, 09/13/2022, 05/27/2022, Additional history exists Influenza Adult (#1) 2025 08/13/2024, 08/17/2020, 08/28/2019, Additional history exists DTaP, Tdap and Td [...] discharge from hospital Lifestyle No Karlie Gamez, PV DESIGN AND INSTALLATION [place] [address] [facility] UHC MEDICARE Advance Directives * Full Code (Latest Code Status on File) Date Activated Date Inactivated Comments 07/11/2023 1:54 AM 07/12/2023 3:07 PM Care Teams Cement Boat And Barge Loader Relationship Specialty Start Date End Date None, Provider, MD PCP - General UNKNOWN PHYSICIAN SPECIALTY 07/10/23
--- OUTSIDE RECORDS SUMMARY | 2025-09-01 16:08 | XMS_ITS | Encounter Summary ---
Author Organization [facility] Address [address] [facility] [place] [address] Care Team Providers Care Supervisor Pre Wave Name Role Phone Nabor Valle MD Primary Care Provider Chanelle Flood HEAD STOCK TRANSFER CLERK-MACHINE WASHER Unavailable [phone] Veronica Henderson HEAD STOCK TRANSFER CLERK-MACHINE WASHER Unavailable Rosa Dobson MD Unavailable Rosario Lundberg MD Unavailable Veronica Henderson HEAD STOCK TRANSFER CLERK-MACHINE WASHER Primary Care Provider Veronica Henderson HEAD STOCK TRANSFER CLERK-MACHINE WASHER Unavailable Saul Powers MD Primary Care Provider Veronica Otero HEAD STOCK TRANSFER CLERK-MACHINE WASHER Unavailable Veronica Henderson HEAD STOCK TRANSFER CLERK-MACHINE WASHER Unavailable [phone] Saul Powers MD Unavailable Unavailable Shelby Nguyen [facility] Unavailable Shara Bello FRAMING AND HANGING Unavailable Saul Powers MD Unavailable Unavailable Christina Kirk RN Unavailable Smita Bolanos RN Unavailable Smita Bolanos RN Unavailable Veronica Henderson HEAD STOCK TRANSFER CLERK-MACHINE WASHER Unavailable [phone] Saul Powers MD Primary Care Provider Artie Zepeda MD Primary Care Provider Saul Powers MD Unavailable Unavailable Martin Hutchison MA Unavailable Saul Powers MD Unavailable Unavailable Corinne Sanelle HEAD STOCK TRANSFER CLERK-MACHINE WASHER Unavailable Artie Perkins MD Unavailable Martin Hutchison MA Unavailable Kobe Collado MD Primary Care Provider [phone] Encounter Details Date Type Department Care Team (Late st Contact Info) Description 09/02/2020 [facility] Outpatient Visit [facility] - Family Medicine [address] [place] [address] Nabor Valle MD [address] [facility] [place] [address] Social History Tobacco Use Types Packs/Day Years [...] on filedocumented in this encounter Care Teams Supervisor Pre Wave Relationship Specialty Start Date End Date Nabor Valle MD PCP - General Family Medicine 08/29/16 07/04/21 Chanelle Flood APRN-VANESSA [address] [place] [address] PCP - Attributed-[facility] 01/19/20 05/19/21 Veronica Henderson APRN-VANESSA [address] [place] [address] PCP - General Nurse Practitioner Family 07/05/21 01/06/22 Veronica Henderson APRN-CNP [address] [facility] [address] [place] [address] PCP - Attributed-[facility] 05/20/21 11/04/21 Saul Powers MD [address] [place] [address] PCP - General Family Medicine 01/07/22 11/15/23 Veronica Henderson APRN-MACHINE WASHER [address] [facility] [address] [place] [address] PCP - [facility] [place] 12/21/21 05/06/22 Veronica Henderson APRN-MACHINE WASHER [address] [place] [address] PCP - [facility] [place] 07/21/22 11/19/22 Saul Powers MD PCP - [facility] [place] 11/20/22 02/04/23 Saul Powers MD PCP - Attributed[facility] [place] 04/20/23 06/19/23 Veronica Henderson APRN-MACHINE WASHER [address] [facility] [address] [place] [address] PCP - [facility] [place] 06/20/23 09/06/23 Saul Powers MD PCP - General Family Medicine 11/16/23 11/21/23 Artie Perkins MD [address] [place] [address] PCP - General Internal Medicine 11/27/23 11/19/24 Saul Powers MD PCP - [facility] [place] 01/19/24 02/08/24 Saul Powers MD PCP - Attributed[facility] MA STL P4P 02/19/24 09/06/24 Artie Perkins MD [address] [place] [address] PCP - Attributed[facility] [place] STL P4P 01/18/25 04/06/25 Kobe Collado MD [address] [place] [address] PCP - General Family Medicine 11/20/24 Veronica Henderson APRN-MACHINE WASHER [address] [place] [address] Nurse Practitioner Family 06/10/21 Rosa Dobson MD [address] [address] Rheumatology 06/10/21 Rosario Lundberg MD [address] [id number] Dermatology 06/10/21 Shelby Nguyen [facility] Outpatient [place] Care Management 06/08/23 06/08/23 Shara Bello, FRAMING AND HANGING Outpatient [place] Care Management 06/08/23 06/22/23 Christina Kirk RN Post Acute Labor And Delivery Registered NurseBookkeeping Clerk 06/22/23 06/26/23 Smita Bolanos, RN Labor And Delivery Registered NurseBookkeeping Clerk 06/26/23 06/27/23 Smita Bolanos, RN Labor And Delivery Registered NurseBookkeeping Clerk 07/05/23 08/14/23 Martin Hutchison, JAYA [address] [address] Care Coordination Specialist Care Management 02/27/24 04/12/24 Corinne San APRN-MACHINE WASHER [address] [place] [address] Nurse Practitioner 05/15/24 Martin Hutchison, JAYA [address] [facility] [address] [place] [address] Care Coordination Specialist Care Management 05/22/25 05/26/25 documented as of this encounter
--- OUTSIDE RECORDS SUMMARY | 2025-09-01 16:08 | XMS_ITS | Clinical Summary ---
Author Organization [facility] Address [address] [place] [address] Care Team Providers Care Distribution Accounting Clerk Name Role Phone Salimamackenzie Veronica RACING MECHANIC-NUCLEAR CHEMISTRY TECHNICIAN Unavailable [phone] Rosa Dobson MD Unavailable [phone] Rosario Lundberg MD Unavailable [phone] Corinne San RACING MECHANIC-NUCLEAR CHEMISTRY TECHNICIAN Unavailable Kobe Collado MD Primary Care Provider [phone] Source Comments [facility],non-owned Affiliates and Associated Physician Practices is amultiple site organization consisting of ambulatory clinics and hospital sitesin [place], [place], [place] and [place]. This disclosure is being madepursuant to the Care Everywhere program and may not contain all information available regarding this patient. 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 Patient does not drink 3 Q3: How often do you have si x or more drinks on one occasion? Never 06/29/2023 Overall Financial Resource Strain (CARDIA) Answe r Date Recorded How hard is it for you to pa y for the very basics like food, housing, medical care, and heating? Not hard at all 06/29/2023 PHQ-2 Answer Date Recorded Patient Health Questionnaire-2 Score 0 08/13/2024 [facility] [place] [facility] Occupat ional Health - Occupational Stress [...] place to sleep or slept in a long term (including now)? No 06/29/2023 Comments No Sex [...] P M CDT Height 165.1 cm (5' 5) 08/13/2024 2:07 PM CDT Body Mass Index 20.24 08/13/2024 2:07 PM CDT Plan of Treatment Health Maintenance Due Date Last Done Comments COLOGUARD (AGES 45-75) - COLON CA SCREENING [address] COLONOGRAPHY - COLON CA SCREENING 1950 FIT - COLON CA SCREENING 1950 FLEX SIG - COLON CA SCREENING 1950 ZOSTER VACCINE (2 of 2) 12/28/2015 11/02/20 15, 10/20/2015 (Done Outside Per Patient) MAMMOGRAM 05/12/2024 05/12/2022, 04/21, 05/12/2022, Additional history exists DEPRESSION SCREENING 11/20/2024 11/27/2023, 04/13/2023, 02/02/2022 MEDICARE AWV CALENDAR YEAR 2024 11/27/2023, 04/13/2023, 02/02/2022, Additional history exists Respiratory Syncytial Virus (RSV) Vaccine Pt: or over 60 yrs (1 - 1-dose 75+ series) 2025 COVID-19 VACCINE (2023- season) 2025 08/13/2024, 09/13/2022, 05/27/2022, Additional history exists INFLUENZA VACCINE (#1) 2025 , 09/13/2022, 09/28/2021, Additional history exists COLONOSCOPY - COLON CA SCREENING 01/18/2026 01/19/2016 (Done Outside Per Patient) Colorectal Cancer Screening 01/18/2026 LIPID TESTING 01/25/2029 01/26/2024, 05/2024, 01/24/2024, Additional history exists DTAP/TDAP/TD VACCINES (4 - Td or Tdap) 07/31/2030 07/31/2020, 08/27/2019, 06/08/2017 BONE DENSITY TESTING Completed 01/19/2016 (Done Outside Per Patient) PNEUMOCOCCAL VACCINE 50+ Completed 019, 08/06/2019, 09/02/2016 HEPATITIS B VACCINE Discontinued 07/31/2020, 0 HEPATITIS C SCREENING Completed 07/31/2021 HIB VACCINE Aged Out No longer eligi [...] this topic Medical Devices Implanted Type Area Night Warehouse Manager Device Identifier Shelf Expiration Date Model / Serial / Lot Floseal 10 Implanted:Qty : 1 on 12/26/2017 by Abisai Galvez DO at [facility] [employer] 02/22/2019 [id number] / / [id number] Graft Bone Alfs + Dbm 1ml Pst Implanted:Qty : 1 on 12/26/2017 by Abisai Galvez DO at [facility] Cervical Nuv[employer] 09/23/2018 [id number] / / [id number] Level Plate 40mm Implanted:Qty : 1 on 12/26/2017 by Abisai Galvez DO at [facility] [employer] [id number] / / Self Tapping Screw 4.0x12 Implanted:Qty : 6 on 12/26/2017 by Abisai Galvez DO at [facility] [employer] [id number] / / Spacer 6mm Implanted:Qty : 2 on 12/26/2017 by Abisai Galvez DO at [facility] [employer] [id number] / / Procedures Procedure Name Priority Date/Time [...] Agency Comment Lab Testing performed at: [facility] [address] [facility] [id number] Saul Powers MD LAB - CHEMISTRY ORDERABLES Fi nal Result [facility] ACCOUNT BILL [address] [place] [address] * MAMMOGRAM (05/12/2022) Anatomical Region Laterality Modality [...] with a HCV Nucleic Acid Amplification test ([id number]). Blood BLOOD SPECIMEN / Unknown 07/31/2021 9:36 AM CDT 07/31/2021 Narrative Resulting Agency Comment Lab Testing performed at: [facility] [address] [facility] [id number] Chanelle Folod RACING MECHANIC-NUCLEAR CHEMISTRY TECHNICIAN LAB - CHEMISTRY ORD ERABLES Final Result [facility] ACCOUNT BILL [address] [place] [address] from Last 3 Months or Most Recently Relevant [place] [id number] [facility] [employer] MANAGED MEDICARE ADV [facility] Advance Directives * Full Code (Latest Code [...] 7:35 PM 05/07/2016 12:28 PM Care Teams Distribution Accounting Clerk Relationship Specialty Start Date End Date Kobe Collado MD [address] [place] [address] [place] [phone] PCP - General Family Medicine 11/20/24 Veronica Henderson APRN-NUCLEAR CHEMISTRY TECHNICIAN Nurse Practitioner Family 06/10/21 Rosa Dobson MD [address] [phone] Rheumatology 06/10/21 Rosario Lundberg MD [address] [id number] Dermatology 06/10/21 Corinne San APRN-NUCLEAR CHEMISTRY TECHNICIAN [address] [place] [address] Nurse Practitioner 05/15/24
--- OUTSIDE RECORDS SUMMARY | 2025-09-01 16:08 | XMS_ITS | Patient Health Record ---
Author Organization [facility] Address [address] [place] [address] Care Team Providers Care Supervisor Tank House Name Role Phone RHONDAARISTEOTEODORO JUDY Primary Care Provider Allergies Allergen (clinical drug ingredient) Drug/Non Drug Allergy documented on EMR Reaction Allergy Type Onset Date Status Refludan Unknown Drug Allergy Active simvastatin Simvastatin DIZZINESS, ITCHY Drug Allergy Active tetracycline Tetracycline HCl Unknown Drug Allergy Active penicillin Unknown Drug Allergy Active Reason For Referral No Information Medications Medication SIG (Take, Route, Frequency, Duration) Notes Start Date End Date Status Soma 350 MG 1 tablet as needed Orally Four times a day DR NATHAN Not-Taking sulfaSALAzine 500 MG [address] NATHAN Not-Taking riTUXimab 10 MG/ML Intravenous 2x, [address] NATHAN Not-Taking hydrALAZINE HCl 10 MG 1 tablet Orally every 6 hrs; Duration: 30 day(s) 08/11/2016 Active Maxalt 5 MG 1 tablet as needed one time Orally twice a day; Duration: 10 days 04/02/2015 Not-Taking Lisinopril 40 MG 1 TABLET(S) BY MOUTH TWICE A DAY; Duration: 90 Not-Taking Warfarin Sodium 5 TAKE 1 TABLET BY MOUTH DAILY EXCEPT ON MONDAY AND MONDAY TAKE 6MG Orally Once a day Active Spironolactone 100 MG TAKE 1 TABLET BY MOUTH DAILY Orally Twice a day Not-Taking Cimzia 2 X 200 MG Subcutaneous Every two weeks Dr. Al tic arthritis Not-Taking Coreg 25 MG 1 tablet with food Orally Twice a day Not-Taking predniSONE 2.5 MG [address] NATHAN Not-Taking HYDROcodone-Acetamino phen 7.5-325 MG 1 tablet as needed Orally TID; Duration: 10 days ONE TIME FILL ONLY, HANDED PATIENT PAPER SCRIPT Not-Taking Acyclovir 200 MG 1 capsule Orally Three times a day; Duration: 5 days 12/02/2015 Not-Taking Otezla 10 & 20 & [address] Nathan 01/25/2016 Not-Taking Gabapentin 300 MG 1 capsule Orally bid Not-Taking Leflunomide 20 Milligram 1 tablet Orally Once a day Dr. Nathan Not-Taking cycloSPORINE 100 MG 1 Tablet Orally Twice a day Active Zetia 10 MG 1 TABLET ONCE A DAY ORALLY 30 DAY(S); Duration: 30 Not-Taking Carvedilol 25 TAKE 1 TABLET BY MOUTH TWICE DAILY Not-Taking Taclonex 0.005-0.064 % 1 drop to affected area Externally Once a day Not-Taking PredniSONE (Vicente) 10 MG daily Orally Start after taper Not-Taking Salicylic Acid Activ e Problems Problem Type SNOMED Code ICD Code Onset Dates Problem Status W/U Status Risk Notes Problem Pure hypercholesterolemi a (809999618) Pure hypercholesterole teresa (E78.0) Active confirmed Problem Mixed hyperlipidemia (556341803) Mixed hyperlipidemia (E78.2) Active confirmed Problem Essential hypertension (61550529) Essential (primary) hypertension (I10) Active confirmed Diagnosed by history. Stable on medication. 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 Needs improvement. Problem Psoriatic arthritis (disorder) (457976980) Arthropathic psoriasis, unspecified (L40.50) Active confirmed Dx by exam. 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 Stable. Follows rheumatology . Problem Right side sciatica (010400694636515) Sciatica, right side (M54.31) Active confirmed Dx by history. Needs improvement. Problem Personal history of primary malignant neoplasm of breast (992780991) Personal history of malignant neoplasm of breast (Z85.3) Active confirmed Problem History of thromboembolism of vein (388791618) Personal history of other venous thrombosis and embolism (Z86.718) Active confirmed Problem Body mass index 30.00 to 34.99 (140827602811860) Body mass index (BMI) 34.0-34.9, adult (Z68.34) Active confirmed Problem Long-term current use of anticoagulant (012997855) care home current use of anticoagulant therapy (Z79.01) Active confirmed Diagnosed b y history. Stable on medication. Problem Angioedema (54291000) Angioedema, subsequent encounter (T78.3XXD) Active confirmed Diagnosed by history. Resolving Encounters Encounter Location Date Provider Diagnosis [facility] [address] [place] [address] 11/11/2024 JUDY HUFF Plan Of Treatment Pending Test Test Name Order Date Ultrasound : Breast, right 01/13/2015 Carotid Ultrasound 03/17/2015 CBC With Differential/Platelet 5 MRI : Brain with and without contrast Urinalysis, Routine 05/22/2014 Urinalysis, Complete 10/05/2015 CBC With Differential/Platelet 2013 CBC With Differential/Platelet 2015 Prothrombin Time (PT) 05/22/2014 Prothrombin Time (PT) 10/19/2015 Prothrombin Time (PT) 10/05/2015 Prothrombin Time (PT) 12/02/2015 Prothrombin Time (PT) 10/23/2014 Prothrombin Time (PT) 06/29/2015 Lipid Panel With LDL/HDL Ratio 6 Lipid Panel 05/22/2014 Comp. Metabolic Panel (14) 01/25/2016 Comp. Metabolic Panel (14) 10/05/2015 Comp. Metabolic Panel (14) 05/22/2014 LIPID PANEL 10/05/2015 Future Test Test Name Order Date Prothrombin Time (PT) 07/30/2014 Prothrombin Time (PT) 11/20/2014 Prothrombin Time (PT) 12/18/2014 Prothrombin Time (PT) 02/12/2015 Prothrombin Time (PT) 03/12/2015 Prothrombin Time (PT) 04/09/2015 Prothrombin Time (PT) 11/03/2015 Prothrombin Time (PT) 11/10/2015 Prothrombin Time (PT) 11/17/2015 Prothrombin Time (PT) 11/24/2015 Prothrombin Time (PT) 12/01/2015 Prothrombin Time (PT) 12/08/2015 Prothrombin Time (PT) 12/15/2015 Prothrombin Time (PT) 12/22/2015 Prothrombin Time (PT) 12/29/2015 Prothrombin Time (PT) 01/05/2016 Prothrombin Time (PT) 01/12/2016 Prothrombin Time (PT) 01/19/2016 Prothrombin Time (PT) 01/26/2016 Prothrombin Time (PT) 02/09/2016 Prothrombin Time (PT) 02/23/2016 Prothrombin Time (PT) 03/08/2016 Prothrombin Time (PT) 03/22/2016 Prothrombin Time (PT) 04/19/2016 Insurance Providers Payer Name Payer Address Payer Phone Subscriber Number Group Number Insured Name Patient Relationship to Insured Coverage Start Date Coverage End Date [facility] [address] [address] [place] [address] [phone] [id number] Montrell Tiesha Self - patient is the insured [facility] [address] [address] [place] [address] [id number] Montrell Tiesha Self - patient is the insured [facility] [address] [place] [address] [id number] Palacios Tiesha Self - patient is the insured [employer] [address] [place] [address] [id number] Montrell Tiesha Self - patient is the insured Medical (General) History Medical History History ICD Code Osteoarthritis Mixed hyperlipidemia E78.2 Pure hypercholesterolemia E78.0 Personal history of other venous thrombo sis and embolism Z86.718 Allergic rhinitis due to pollen J30.1 Essential (primary) hypertension I10 Personal history of malignant neoplasm o f breast Z85.3 Chronic diastolic (congestive) heart sourav lure I50.32 Rheumatoid arthritis Arthropathic psoriasis, unspecified L40. 50 Body mass index (BMI) 32.0-32.9, adult Z 68.32
--- OUTSIDE RECORDS SUMMARY | 2025-09-01 16:08 | XMS_ITS | Encounter Summary ---
Author Organization [facility] Address [address] [place] [address] Care Team Providers Care Java Performance Engineer Name Role Phone Artie Perkins MD Primary Care Provider [phone] Reason for Visit * Reason Onset Date Comments Possible R knee septic arthr itis, staple removal evaluation 01/13/2024 LEFT VOICEMAIL ON [employer] CRYS Encounter Details Date Type Department Care Team (Late st Contact Info) Description 01/13/2024 Telephone [facility] Admitting [address] [place] [address] [place] [address] [place] [address] Possible R knee septic arthritis, staple removal evaluation (LEFT VOICEMAIL ON [employer] PAGER) Social History Tobacco Use Types Packs/Day [...] on file Legal Sex Female 3:35 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
--- OUTSIDE RECORDS SUMMARY | 2025-09-01 16:08 | XMS_ITS | Clinical Summary ---
Author Organization [facility] Address [address] [place] [address] Phone Care Team Providers Care Network Infrastructure Architect Name Role Phone Artie Perkins MD Primary [...] daily. 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 COORDINATOR Gender Identity Not on file Sexual Orientation Not on file Last Filed Vital Signs Vital Sign Reading Time Taken Comments Blood Pressure 123/60 01/26/2024 8:25 AM CREDIT COORDINATOR Pulse 78 01/26/2024 8:25 AM CREDIT COORDINATOR Temperature 37 C (98.6 F) 01/26/2024 8:25 AM CREDIT COORDINATOR Respiratory Rate 18 01/26/2024 8:25 AM CREDIT COORDINATOR Oxygen Saturation 99% 01/26/2024 8:25 AM CREDIT COORDINATOR Inhaled Oxygen Concentration - - Weight 64.5 kg (142 lb 1.6 oz) 01/25/2024 6:03 P M CREDIT COORDINATOR Height 165.1 cm (5' 5) 12/13/2023 2:49 PM CREDIT COORDINATOR Body Mass Index 23.65 12/13/2023 2:49 PM CREDIT COORDINATOR Plan of Treatment Health Maintenance Due Date Last Done Comments FIT-DNA Q 3 years 1995 FIT/FOBT Q 1 year 1995 Flex Sig/CT Colonography Q 5 years 1995 OSTEOPOROSIS SCREENING 2015 ZOSTER VACCINE (2 of 3) 12/28/2015 11/02/2015 RSV VACCINE (60+ or ) (1 - 1-dose 75+ series) 2025 INFLUENZA VACCINE (#1) 2025 , 09/28/2021, 08/17/2020, Additional history exists COVID-19 Vaccine (6 - 2024-2 6 season) 2025 09/13/2022, 05/27/2022, 07/22/2021, Additional history exists COLORECTAL SCREENING 05/02/2027 05/02/2022, 05/02/2022, 03/18/2016, Additional history exists Colorectal Cancer Screening 05/02/2027 DTAP/TDAP/TD VACCINES (4 - T d or Tdap) 07/31/2030 07/31/2020, 08/27/2019, 06/08/2017 PNEUMOCOCCAL VACCINE 50+ YEARS Completed 1 , 08/06/2019, 09/02/2016 Medical Devices Implanted Type Area Electro Mechanic Device Identifier Shelf Expiration Date Model / Serial / Lot Sealant Hemaflex [id number] - [id number] Implanted:Qty : 1 on 01/05/2024 by Bello Doan DO at [facility] Biological N/A: Abdomen BARD DAVOL 04/16/2026 [id number] / / [id number] Clip Hemolok Lrg [id number] - Csc - [id number] Implanted:Qty : 1 on 01/05/2024 by Bello Doan DO at [facility] Clip N/A: Abdomen TELEFLEX- WECK CLOSURE SYS 09/26/2028 [id number] / / [id number] Port Powerport Clearvue 8fr Mri [id number] Implanted:Qty : 1 on 04/04/2022 by Lino Agarwal MD Port CR BARD- [employer]UB[employer] 04/19/2023 [id number] / / [id number] Port Explanted:Qty : 1 on 04/04/2022 by Lino Agarwal MD Procedures Procedure Name Priority Date/Time Associated Diagnosis Comments COLONOSCOPY REPORT 05/02/2022 12 :15 PM CDT from Last 3 Months or Most Recently Relevant to Health Maintenance Results * COLONOSCOPY REPORT (05/02/2022 12:15 PM CDT) Narrative Procedure Note Santino Goldman MD - 05/02/2022 12:15 PM CDT [facility] Endoscopy Patient Name: Pantera Stock Procedure Date: [...] bowel preparation was evaluated using the BBPS (Gardiner Bowel Preparation Scale) with scores of: Right Colon = 3, Transverse Colon = 3 and Left Colon = 3 (entire mucosa seen well with no residual staining, small fragments of stool or opaque liquid). The total BBPS score equals 9. The quality of the bowel preparation was evaluated using the BBPS (Gardiner Bowel Preparation Scale) with scores of: Right [...] individual at high risk CPT copyright 2020 [employer]. All rights reserved. The codes documented in this report are preliminary and upon traffic inspector review may be revised to meet current compliance requirements. Santino Goldman MD 05/02/2022 12:15:08 PM This report has been signed electronically. Number of Addenda: [id number] [address], [place] [address] Santino Goldman MD GI PROCEDURE ORDERABLES Final Re sult from Last 3 Months or Most Recently Relevant [place] [address] [facility] Sequence Design [facility] Address: [address] [place] [address] [facility] [address] [place] [address] RX [employer] RX Member Subscriber Plan / Payer (Ef fective 2016-Present) Name:Pantera Stock Relation to Subscriber:Self Name:Montrell Pantera Gutierrez Payer ID:Not on file Group ID:[id number] Type:RX Medicare Part D Address: [place] [place] [address] [facility] [id number] Query [facility] Address: [facility] [address] [place] [id number] Advance Directives For more information, please contact: [phone] * Full Code (Latest Code Status on File) Date Activated Date Inactivated Comments 01/05/2024 10:15 AM 01/26/2024 6:04 PM * Full Code Date Activated Date Inactivated Comments 12/14/2023 4:48 AM 01/05/2024 10:15 AM * Full Code Date Activated Date Inactivated Comments 06/10/2023 10:01 AM 06/16/2023 7:08 PM * Full Code Date Activated Date Inactivated Comments 06/09/2023 11:37 AM 06/10/2023 10:01 AM Care Teams Network Infrastructure Architect Relationship Specialty Start Date End Date Artie Perkins MD [address] [place] [phone] PCP - General Internal Medicine 12/13/23
[2025-09-01 16:17] VITALS: BP 120/77; PULSE 77; RESP 16; TEMP 36.7; O2SAT 99
[2025-09-01 20:26] VITALS: BP 183/83; PULSE 84; RESP 15; O2SAT 100
--- NOTE | 2025-09-01 21:53 | ECG_ITS ---
Test Date: 2025-09-01 22:55:44 Measurements Intervals [place] Rate: 73 P: 15 WA: 157 QRS: -7 QRSD: 96 T: 16 QT: 382 QTc: 422 Interpretive Statements SINUS RHYTHM DELAYED PRECORDIAL R/S TRANSITION VOLTAGE CRITERIA FOR LVH MINIMAL Q WAVES- HIGH LATERAL LEADS BASELINE ARTIFACT- I, II, AVR, AVL, V5 BORDERLINE ECG Compared to ECG 04/01/2025 13:32:00 NO SIGNIFICANT CHANGE Electronically Signed On 09-02-2025 05:34:16 CDT by David Whitten D.O.
[2025-09-01 22:49] VITALS: BP 159/84; PULSE 74; RESP 17; O2SAT 99
[2025-09-01 23:02] LABS: Hematocrit 28.8 % (37.0-47.0); Hemoglobin 9.2 g/dL (12.0-15.0); Immature Granulocyte Percent A 8.3 % (0-0.5); Lymphocytes Absolute Auto 2.32 K/mm3 (0.9-3.2); Mean Corpuscular HGB Conc 31.9 g/dl (32-36); Mean Corpuscular Hemoglobin 31.1 pg (26-34); Mean Corpuscular Volume 97.3 fl (80-100); Nucleated Red Blood Cells Absolute Auto 0.000 K/mm3 (0.0-0.012); Nucleated Red Blood Cells Perc 0.0 % (0.0-0.2); Platelet Count Result 380 k/mm3 (150-375); Red Blood Count 2.96 M/mm3 (4.2-5.4); White Blood Count 9.1 K/mm3 (4.5-10.0)
[2025-09-01 23:11] LABS: Alanine Aminotransferase 14 U/L (6-35); Albumin Level 2.9 g/dL (3.5-5.1); Alkaline Phosphatase 91 U/L (38-126); Anion Gap 7 mmol/L (4-12); Aspartate Amino Transferase 25 U/L (14-36); Bilirubin,Total 0.8 mg/dL (0.2-1.3); Blood Urea Nitrogen 16 mg/dL (7-17); Calcium 8.4 mg/dL (8.4-10.2); Carbon Dioxide 25 mmol/L (22-30); Chloride 102 mmol/L (98-107); Estimated CRCL calculation 63 ml/min; Estimated Glomerular Filt Rate > 60; Glucose 98 mg/dL (65-110); Lipase 31 U/L (23-300); Magnesium 2.0 mg/dL (1.6-2.3); Potassium 4.0 mmol/L (3.4-5.0); Sodium 134 mmol/L (137-145); Total Protein 7.3 g/dL (6.3-8.2)
[2025-09-02] VITALS (10 sets, daily range): BP systolic 110–174; BP diastolic 51–84; PULSE 86–103; RESP 16–24; TEMP 36.8–37.6; O2SAT 94–100; BMI 24.6
[2025-09-02 00:02] LABS: Anisocytosis 1+; Hypochromasia 1+; Schistocytes None Seen
[2025-09-02 00:15] LABS: Add Urine Microscopic? YES; Appearance Urine Cloudy (Clear); Glucose Urine UA Negative (Negative); Leukocyte Esterase Ur 1+ LEU/UL (Negative); Need Manual Microscopic Reviewed; Nitrate Urine Negative (Negative); Non Pathogenic Casts 0-2; Specific Grav Ur 1.023 (1.001-1.035)
--- NOTE | 2025-09-02 00:19 | ED.GENADULT ---
HPI - General Adult General Chief complaint: Extremity Injury, Lower Stated complaint: RLL swelling and pain Time Seen by Provider: 09/01/25 19:25 History of Present Illness HPI narrative: This is a 75-year-old female with a history of rheumatoid arthritis and previous septic section of her knee presenting for right knee pain. Patient says she has developed significant pain and swelling in her right knee. It is associated with fevers of 101 at home. He is no longer able to walk due to significant pain. Related Data Home Medications ?Medication ?Instructions ?Recorded ?Confirmed ?Last Taken ?Type polyethylene glycol 3350 17 17 g PO DAILY 07/09/24 05/15/25 12/06/24 History gram/dose oral powder (Miralax) megestrol 40 mg tablet 40 mg PO BID 04/01/25 05/15/25 Unknown History tramadol 50 mg tablet 50 mg PO Q12H PRN pain 04/01/25 05/15/25 Unknown History aspirin 81 mg tablet 81 mg PO DAILY 05/15/25 05/15/25 Unknown History hydrochlorothiazide 12.5 mg capsule 12.5 mg PO DAILY 05/15/25 05/15/25 Unknown History prednisone 20 mg tablet 2.5 mg PO DAILY@0800 05/15/25 05/15/25 Unknown History Allergies Allergy/AdvReac Type Severity Reaction Status Date / Time amlodipine Allergy Severe Hives Verified 09/01/25 23:52 banana Allergy Severe throat Verified 09/01/25 23:52 Itching latex Allergy Severe Redness of Verified 09/01/25 23:52 Skin, baker lisinopril Allergy Severe Difficulty Verified 09/01/25 23:52 Breathing Penicillins Allergy Severe Rash Verified 09/01/25 23:52 pseudoephedrine Allergy Severe Difficulty Verified 09/01/25 23:52 Breathing tetracycline Allergy Severe Difficulty Verified 09/01/25 23:52 Breathing tree nut Allergy Severe Other Verified 09/01/25 23:52 dextromethorphan Allergy Intermediate Rash Verified 09/01/25 23:52 prednisone Allergy Unknown Other Verified 09/01/25 23:52 acetaminophen AdvReac Intermediate Nausea and Verified 09/01/25 23:52 Vomiting aspirin AdvReac Intermediate Nausea and Verified 09/01/25 23:52 Vomiting vancomycin AdvReac Intermediate Other Verified 09/01/25 23:52 Sulfa (Sulfonamide AdvReac Mild Other Verified 09/01/25 23:52 Antibiotics) [facility] Past Medical History Medical History DVT (deep venous thrombosis) No longer on anticoagulation Chronic blood loss anemia History of seizure (~11/2023) Following surgery for septic arthritis. Osteopenia Moderate protein malnutrition Diastolic dysfunction Echo 04/2024 demonstrated EF of 60 65%, mildly increased left ventricular wall thickness, grade 1 diastolic dysfunction, right ventricular function normal, atrial septum appears aneurysmal, moderate aortic valve calcification, mild mitral valve regurgitation, mild tricuspid valve regurgitation Occult blood in stools Hyperlipidemia Hypertension Rheumatoid arthritis Surgical History Surgical History History of colonoscopy (07/17/24) Internal hemorrhoids, diverticulosis Normal esophagogastroduodenoscopy (EGD) (07/17/24) PEG (percutaneous endoscopic gastrostomy) status Place at [facility] in January 2024 due to dysphagia, remains in place due to moderate to severe protein calorie malnutrition with approximately 50 lb weight loss since August 2023. History of total left knee replacement Port-A-Cath in place Left chest wall H/O right knee surgery (~11/2023) Washout due to septic arthritis November 2023 H/O: hysterectomy Family History Family History Father , black lung disease No problems noted. Mother , from OJI gangrene. No problems noted. Sibling Acute myocardial infarction Prednisolone adverse reaction Sibling No problems noted. Social History Social History Social History: Code status: DNR/DNI (per patient request) she states that she does not think that her would agree with this but this is her desire. 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 Head: atraumatic. EYES: EOMI, NOSE: Atraumatic NECK: Trachea midline RESPIRATORY: No increased rate of breathing clear to auscultation CARDIOVASCULAR: RRR, no peripheral edema ABDOMINAL: Non-distended soft nontender MUSCULOSKELETAl: Focal exam of the right knee revealed a grossly swollen right knee that is hot to the touch and exquisitely tender. Pain with palpation and any sort of active or passive motion. There is a large well-healed surgical scar over the top of the knee from previous washout. NEURO: Alert. Moving 4/4 extremities SKIN:: Warm, dry. Normal color PSYCHIATRIC: Normal affect Course Vital Signs Vital signs: Vital Signs Temperature 98.1 F 09/01/25 16:17 Pulse Rate 77 09/01/25 16:17 Respiratory Rate 16 09/01/25 16:17 Blood Pressure 120/77 09/01/25 16:17 Pulse Oximetry 99 09/01/25 16:17 Oxygen Delivery Room Air 09/01/25 16:17 Temperature 98.1 F 09/01/25 16:17 Pulse Rate 94 09/02/25 04:07 Respiratory Rate 21 H 09/02/25 04:07 Blood Pressure 139/68 09/02/25 04:07 Pulse Oximetry 99 09/02/25 04:07 Oxygen Delivery Room Air 09/01/25 16:17 Procedures Joint Aspiration/Injection Joint Asp./Inject. 1: Joint Aspiration Date: 09/02/25 Time Out Performed: Yes Side of body: right Joint Aspirated: knee Ultrasound Guidance: No Skin Prep: Chlorhexidine Local Anesthetic: bupivacaine 0.25% Amount of anesthesia used (mL): 8 Needle Size Used: 18G Fluid Obtained: turbid Total fluid obtained (mL): 20 Patient Tolerated Procedure: well Complications: none Medical Decision Making MDM Narrative Medical decision making narrative: -Course: 75-year-old female history of rheumatoid arthritis and previous septic joints presenting with significant knee pain, swelling and reported fevers at home. Knee aspiration was performed and synovial/blood work sent to the lab. Synovial fluid returned with no bacteria on initial Gram stain. [place] [address] with 80% neutrophils. Her ESR and CRP are highly elevated although they are chronically elevated. Review of the EMR shows that she has had admissions to the hospital with similar presentation. While she received a washout on her initial visit it appears the follow-up visit she just received antibiotics and appeared to do well. There was debate on whether this was truly septic joint versus a rheumatoid arthritis flare. Results of her synovial fluid analysis and laboratory studies are equivocal but probably favors an inflammatory arthritis, however she reports a fever of 101 at home which is concerning. Case was discussed with Dr. Boland recommends admission and awaiting culture results. He also recommended we consult Dr. Bello as he is very familiar with this patient. Patient was started on cefepime. Review of the EMR says that she had received vancomycin on her previous admission although they had to slow the rate down. Vancomycin was started at half normal rate. She will be admitted the hospital for further management. After the patient was admitted she started to have GI symptoms including nausea and vomiting. Patient was reassessed at bedside. This is possibly due to the vancomycin although she does not have any cutaneous findings. Vancomycin has been discontinued. She is given 50 mg of Benadryl. She will be switched to clindamycin for MRSA coverage. -DDX includes but is not limited to: Septic joint, rheumatoid arthritis flare, gout, Vital Signs Vital Signs: Vital Signs Temperature 98.1 F 09/01/25 16:17 Pulse Rate 77 09/01/25 16:17 Respiratory Rate 16 09/01/25 16:17 Blood Pressure 120/77 09/01/25 16:17 Pulse Oximetry 99 09/01/25 16:17 Oxygen Delivery Room Air 09/01/25 16:17 Temperature 98.1 F 09/01/25 16:17 Pulse Rate 94 09/02/25 04:07 Respiratory Rate 21 H 09/02/25 04:07 Blood Pressure 139/68 09/02/25 04:07 Pulse Oximetry 99 09/02/25 04:07 Oxygen Delivery Room Air 09/01/25 16:17 Lab Data 09/01/25 22:54 09/01/25 22:54 Labs: Lab Results 09/01/25 09/01/25 09/01/25 Range/Units 22:00 22:20 22:54 WBC 9.1 (4.5-10.0) K/mm3 RBC 2.96 L (4.2-5.4) M/mm3 Hgb 9.2 L (12.0-15.0) g/dL Hct 28.8 L (37.0-47.0) % MCV 97.3 (80-100) fl MCH 31.1 (26-34) pg MCHC 31.9 L (32-36) g/dl RDW 15.3 H (11.5-14.5) % Plt Count 380 H (150-375) k/mm3 MPV 10.0 (7.4-10.4) fl Immature Gran % (Auto) 8.3 H (0-0.5) % Neut % (Auto) 54.8 (45.5-73.1) % Lymph % (Auto) 25.6 (18.3-44.2) % [place] % (Auto) 7.0 (2.6-8.5) % Eos % (Auto) 2.9 (0-4.4) % Baso % (Auto) 1.4 H (0.2-1.2) % Lymph # (Auto) 2.32 (0.9-3.2) K/mm3 [place] # (Auto) 0.6 (0.1-0.6) K/mm3 Eos # (Auto) 0.3 (0-0.3) K/mm3 Baso # (Auto) 0.1 (0.0-0.1) K/mm3 Abs Immat Gran (auto) 0.75 H (0.00-0.031) K/mm3 Absolute Neuts (auto) 5.0 (1.3-6.7) K/mm3 Absolute Nucleated RBC 0.000 (0.0-0.012) K/mm3 Band Neutrophils % Not Reportable Nucleated RBC % 0.0 (0.0-0.2) % Platelet Estimate Slightly increased (Adequate) Hypochromasia 1+ Anisocytosis 1+ Schistocytes None seen ESR 140 H (0-20) mm/hr PT (11.1-14.7) Seconds INR APTT (22.3-36.8) Seconds Sodium 134 L (137-145) mmol/L Potassium 4.0 (3.4-5.0) mmol/L Chloride 102 (98-107) mmol/L Carbon Dioxide 25 (22-30) mmol/L Anion Gap 7 (4-12) mmol/L BUN 16 (7-17) mg/dL Creatinine 0.59 L (0.7-1.0) mg/dL Estim Creat Clear Calc 63 ml/min Estimated GFR > 60 (59 - ) Glucose 98 (65-110) mg/dL Lactic Acid 1.1 (0.7-2.0) mmol/L Calcium 8.4 (8.4-10.2) mg/dL Phosphorus 3.2 (2.5-4.5) mg/dL Magnesium 2.0 (1.6-2.3) mg/dL Total Bilirubin 0.8 (0.2-1.3) mg/dL AST 25 (14-36) U/L ALT 14 (6-35) U/L Alkaline Phosphatase 91 (38-126) U/L C-Reactive Protein 24.0 H (<1.0) mg/dL Total Protein 7.3 (6.3-8.2) g/dL Albumin 2.9 L (3.5-5.1) g/dL Lipase 31 (23-300) U/L Urine Color (Yellow) Urine Appearance (Clear) Urine pH (5.0-9.0) Ur Specific [place] (1.001-1.035) Urine Protein (Negative) mg/dL Urine Glucose (UA) (Negative) mg/dL Urine Ketones (Negative) mg/dL Ur Blood (Man) (Negative) Urine Nitrate (Negative) Urine Bilirubin (Negative) Urine Urobilinogen (<2.0) mg/dL Add Ur Microanalysis Leukocyte Esterase Rfl (Negative) JACKI/UL Urine RBC (0-2) /hpf Urine WBC (0-3) /hpf Ur Squamous Epith Cells (Few) /hpf Urine Bacteria /hpf Urine Casts Fluid Glucose Pending Fluid Total Protein Pending Synovial Source Rt knee syn fluid Synovial Color Red (Colorless) Synovial Appearance Cloudy A (Clear) Synovial RBC 68600 H (0-0) /uL Synovial Nuc Cells 33282 H (0-200) /uL Synovial Neutrophils 80 H (0-25) % Synovial Lymphocytes 13 % Synovial Monocytes 2 % Synovial Other Cells 5 % Synovial Crystals None seen (None Seen) 09/01/25 09/02/25 Range/Units 23:13 00:53 WBC (4.5-10.0) K/mm3 RBC (4.2-5.4) M/mm3 Hgb (12.0-15.0) g/dL Hct (37.0-47.0) % MCV (80-100) fl MCH (26-34) pg MCHC (32-36) g/dl RDW (11.5-14.5) % Plt Count (150-375) k/mm3 MPV (7.4-10.4) fl Immature Gran % (Auto) (0-0.5) % Neut % (Auto) (45.5-73.1) % Lymph % (Auto) (18.3-44.2) % [place] % (Auto) (2.6-8.5) % Eos % (Auto) (0-4.4) % Baso % (Auto) (0.2-1.2) % Lymph # (Auto) (0.9-3.2) K/mm3 [place] # (Auto) (0.1-0.6) K/mm3 Eos # (Auto) (0-0.3) K/mm3 Baso # (Auto) (0.0-0.1) K/mm3 Abs Immat Gran (auto) (0.00-0.031) K/mm3 Absolute Neuts (auto) (1.3-6.7) K/mm3 Absolute Nucleated RBC (0.0-0.012) K/mm3 Band Neutrophils % Nucleated RBC % (0.0-0.2) % Platelet Estimate (Adequate) Hypochromasia Anisocytosis Schistocytes ESR (0-20) mm/hr PT 15.6 H (11.1-14.7) Seconds INR 1.3 APTT 35.7 (22.3-36.8) Seconds Sodium (137-145) mmol/L Potassium (3.4-5.0) mmol/L Chloride (98-107) mmol/L Carbon Dioxide (22-30) mmol/L Anion Gap (4-12) mmol/L BUN (7-17) mg/dL Creatinine (0.7-1.0) mg/dL Estim Creat Clear Calc ml/min Estimated GFR (59 - ) Glucose (65-110) mg/dL Lactic Acid (0.7-2.0) mmol/L Calcium (8.4-10.2) mg/dL Phosphorus (2.5-4.5) mg/dL Magnesium (1.6-2.3) mg/dL Total Bilirubin (0.2-1.3) mg/dL AST (14-36) U/L ALT (6-35) U/L Alkaline Phosphatase (38-126) U/L C-Reactive Protein (<1.0) mg/dL Total Protein (6.3-8.2) g/dL Albumin (3.5-5.1) g/dL Lipase (23-300) U/L Urine Color Dark yellow (Yellow) Urine Appearance Cloudy H (Clear) Urine pH 5.5 (5.0-9.0) Ur Specific [place] 1.023 (1.001-1.035) Urine Protein 1+ H (Negative) mg/dL Urine Glucose (UA) Negative (Negative) mg/dL Urine Ketones 1+ H (Negative) mg/dL Ur Blood (Man) Negative (Negative) Urine Nitrate Negative (Negative) Urine Bilirubin 1+ H (Negative) Urine Urobilinogen 1.0 (<2.0) mg/dL Add Ur Microanalysis Reviewed Leukocyte Esterase Rfl 1+ H (Negative) JACKI/UL Urine RBC 0-2 (0-2) /hpf Urine WBC 6-10 H (0-3) /hpf Ur Squamous Epith Cells Many H (Few) /hpf Urine Bacteria 1+ H /hpf Urine Casts 0-2 Fluid Glucose Fluid Total Protein Synovial Source Synovial Color (Colorless) Synovial Appearance (Clear) Synovial RBC (0-0) /uL Synovial Nuc Cells (0-200) /uL Synovial Neutrophils (0-25) % Synovial Lymphocytes % Synovial Monocytes % Synovial Other Cells % Synovial Crystals (None Seen) Discharge Plan Discharge Clinical Impression: Joint swelling, Rheumatoid arthritis, Elevated erythrocyte sedimentation rate, CRP elevated Patient Disposition: Still a Patient Condition: Stable
[2025-09-02 00:24] LABS: Source Synovial Fluid Rt Knee Syn Fluid
[2025-09-02 00:25] LABS: Color Synovial Fluid Red (Colorless)
[2025-09-02 00:31] LABS: Nucleated Cell Synovial Fluid 39390 /uL (0-200); RBC Synovial Fluid 20000 /uL (0-0)
[2025-09-02 00:32] LABS: Lymphocytes Synovial Fluid 13 %; Neutrophils Synovial Fluid 80 % (0-25); Other Cells Synovial Fluid 5 %
[2025-09-02 01:04] LABS: CRP 24.0 mg/dL (<1.0)
[2025-09-02 01:27] LABS: INR 1.3; Prothrombin Time 15.6 Seconds (11.1-14.7)
[2025-09-02 01:28] LABS: Partial Thromboplastin Time 35.7 Seconds (22.3-36.8)
--- NOTE | 2025-09-02 02:58 | PC.NURSE ---
Multiple attempts to reach pottery decoration designer ortho. Escalated to kiln head house operator for assistance.
[2025-09-02] MEDS: HYDROmorphone HCL INJ (*CRX) 1 MG/ML SYR 0.5 MG IV PUSH (03:19)
[2025-09-02] MEDS: ONDANSETRON INJ 4 MG/2 ML VIAL IV PUSH (03:30)
[2025-09-02] MEDS: CEFEPIME 2 GM in SODIUM CHLORIDE 0.9% IV 50 ML 100 ML IVPB ×2 (03:30→14:01)
[2025-09-02 04:53] LABS: Monocytes Synovial Fluid 2 %
[2025-09-02] MEDS: VANCOMYCIN 1,750 MG/NS 500 ML 1,750 MG/500 ML BAG 125 MG IVPB (04:56)
--- NOTE | 2025-09-02 06:07 | PC.NURSE ---
pt reports feeling like she is going to pass out and feels like she is going to get sick. pt also reported having stomach cramps and feels like she is going to have diarrhea. EDP made aware of these symptoms. EDP ordered to stop vancomycin and ordered Benadryl.
--- NOTE | 2025-09-02 07:41 | ADMGEN ---
This patient, Tiesha Stock, was admitted to 2 Medical Room 242-. Patient/family oriented to hospital policies and general routines including ID bracelet, bed and alarms, visiting hours, pain management, procedures, bathroom and other care routines, personal items, smoking policy, room service/diet, and visiting hours. Information on how to activate the Rapid Response Team has been discussed. Patient/Family are encouraged to report perceived risks to care and to ask questions if they do not understand what they are told or what they should do.
--- NOTE | 2025-09-02 08:01 | PM.IMHP ---
H&P: HPI History of Present Illness Date/Time: 09/02/25 08:01 Chief Complaint: RLL swelling/pain Narrative: Tiesha Stock is a 75 year old female with a past medical history of HTN, HLP, anemia, DVT not on anticoagulation, rheumatoid arthritis, diastolic dysfunction who presents to the hospital for right knee pain and swelling. Also reporting fevers at home. She states that she is no longer able to walk at home due to the pain and swelling. Patient has been seen multiple times in the hospital for similar issues. Denies any chest pain, shortness a breath, nausea/vomiting, headache/dizziness, or lower extremity numbness/tingling. Admitted to floor for orthopedic consult. ED workup: 98.1F, 94 HR, 16 HR, 120/77, 99% RA WBC 9.1, HGB 9.2, HCT 20.8, PLT 380, ESR 140, sodium 134, potassium 4.0, BUN 16, creatinine 0.59, lactic acid 1.1, LFTs WNL UA: 1+ leukocyte esterase, 6-10 WBC, many squamous epithelial cells, 1+ bacteria Synovial Color Red (Colorless) Synovial Appearance Cloudy A (Clear) Synovial RBC 22013 H (0-0) /uL Synovial Nuc Cells 06927 H (0-200) /uL Synovial Neutrophils 80 H (0-25) % Synovial Lymphocytes 13 % Synovial Monocytes 2 % Synovial Other Cells 5 % Synovial Crystals None seen (None Seen) Review of Systems Review of Systems: All systems reviewed & are unremarkable except as noted in HPI and below PMFSH Past Medical History Medical History DVT (deep venous thrombosis) No longer on anticoagulation Chronic blood loss anemia History of seizure (~11/2023) Following surgery for septic arthritis. Osteopenia Moderate protein malnutrition Diastolic dysfunction Echo 04/2024 demonstrated EF of 60 65%, mildly increased left ventricular wall thickness, grade 1 diastolic dysfunction, right ventricular function normal, atrial septum appears aneurysmal, moderate aortic valve calcification, mild mitral valve regurgitation, mild tricuspid valve regurgitation Occult blood in stools Hyperlipidemia Hypertension Rheumatoid arthritis Surgical History Surgical History History of colonoscopy (07/17/24) Internal hemorrhoids, diverticulosis Normal esophagogastroduodenoscopy (EGD) (07/17/24) PEG (percutaneous endoscopic gastrostomy) status Place at [facility] in January 2024 due to dysphagia, remains in place due to moderate to severe protein calorie malnutrition with approximately 50 lb weight loss since August 2023. History of total left knee replacement Port-A-Cath in place Left chest wall H/O right knee surgery (~11/2023) Washout due to septic arthritis November 2023 H/O: hysterectomy Family History Family History Father , black lung disease No problems noted. Mother , from OJI gangrene. No problems noted. Sibling Acute myocardial infarction Prednisolone adverse reaction Sibling No problems noted. Social History Social History Social History: Code status: DNR/DNI (per patient request) she states that she does not think that her would agree with this but this is her desire. 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 [employer] Gender identity (if verbalized by the patient): Male Spiritual care concerns: No Meds Home Medications and Allergies Home Medications ?Medication ?Instructions ?Recorded ?Confirmed ?Type polyethylene glycol 3350 17 17 g PO DAILY 07/09/24 09/02/25 History gram/dose oral powder (Miralax) metoprolol succinate 25 mg 25 mg PO QAM #60 tabs 07/22/24 09/02/25 Rx tablet,extended release 24 hr (Toprol XL) bisacodyl 5 mg tablet,delayed 10 mg (2 x 5 mg) PO QAM PRN 12/17/24 09/02/25 Rx release (Laxative (bisacodyl)) Constipation #30 tabs ferrous sulfate 325 mg (65 mg 325 mg PO BIDWM #60 tabs 12/17/24 09/02/25 Rx iron) tablet,delayed release tramadol 50 mg tablet 50 mg PO Q12H PRN pain 04/01/25 09/02/25 History aspirin 81 mg tablet 81 mg PO DAILY 05/15/25 09/02/25 History hydrochlorothiazide 12.5 mg capsule 12.5 mg PO DAILY 05/15/25 09/02/25 History prednisone 20 mg tablet 5 mg PO BID 05/15/25 09/02/25 History pantoprazole 40 mg tablet,delayed 40 mg PO DAILY 09/02/25 09/02/25 History release pregabalin 50 mg capsule 50 mg PO BID 09/02/25 09/02/25 History Allergies Allergy/AdvReac Type Severity Reaction Status Date / Time amlodipine Allergy Severe Hives Verified 09/02/25 07:53 banana Allergy Severe throat Verified 09/02/25 07:53 Itching latex Allergy Severe Redness of Verified 09/02/25 07:53 Skin, baker lisinopril Allergy Severe Difficulty Verified 09/02/25 07:53 Breathing Penicillins Allergy Severe Rash Verified 09/02/25 07:53 pseudoephedrine Allergy Severe Difficulty Verified 09/02/25 07:53 Breathing tetracycline Allergy Severe Difficulty Verified 09/02/25 07:53 Breathing tree nut Allergy Severe Other Verified 09/02/25 07:53 dextromethorphan Allergy Intermediate Rash Verified 09/02/25 07:53 prednisone Allergy Unknown Other Verified 09/02/25 07:53 acetaminophen AdvReac Intermediate Nausea and Verified 09/02/25 07:53 Vomiting aspirin AdvReac Intermediate Nausea and Verified 09/02/25 07:53 Vomiting vancomycin AdvReac Intermediate Other Verified 09/02/25 07:53 Sulfa (Sulfonamide AdvReac Mild Other Verified 09/02/25 07:53 Antibiotics) Vital Signs Vital Signs - 24 hr 09/01/25 16:17 09/01/25 20:26 09/01/25 22:49 Temperature 98.1 F Pulse Rate 77 84 74 Respiratory Rate 16 15 17 Blood Pressure 120/77 183/83 H 159/84 H Pulse Oximetry 99 100 99 Oxygen Delivery Room Air 09/02/25 00:05 09/02/25 03:52 09/02/25 04:07 Temperature Pulse Rate 86 90 94 Respiratory Rate 16 22 H 21 H Blood Pressure 129/83 127/78 139/68 Pulse Oximetry 100 100 99 Oxygen Delivery 09/02/25 06:06 09/02/25 06:32 09/02/25 06:45 Temperature 99.1 F 99.1 F Pulse Rate 103 H 99 99 Respiratory Rate 24 H 23 H 23 H Blood Pressure 174/84 H 131/63 131/63 Pulse Oximetry 94 96 96 Oxygen Delivery Exam Narrative: Gen - well appearing female in no acute respiratory distress who is nontoxic-appearing lying semi recumbent in bed HEENT - normocephalic. Atraumatic. Pupils equal round and reactive. Nares patent. Oropharynx was clear. No oral lesions. Neck - neck was supple. No dominant adenopathy, thyromegaly or masses. 2+ carotid upstrokes without bruits. Chest - lungs are clear to auscultation bilaterally. No wheezes or crackles. CV - heart was regular rate and rhythm. S1-S2. Abd - abdomen was soft. Nontender. Nondistended. Positive bowel sounds. Ext -swelling and pain to right knee. Patient reportedly chronically swollen. No clubbing, cyanosis or edema. 2+ DP pulses bilaterally. Neuro - patient is alert and oriented x4. Strength is 5/5 in both upper and lower extremities. Speech is clear. Psych - normal mood and affect. Patient is pleasant and cooperative. Skin - warm and dry. No rashes noted. H&P: Results Labs Labs: Short CBC 09/01/25 Range/Units 22:54 WBC 9.1 (4.5-10.0) K/mm3 Hgb 9.2 L (12.0-15.0) g/dL Hct 28.8 L (37.0-47.0) % Plt Count 380 H (150-375) k/mm3 BMP 09/01/25 22:54 Sodium 134 L Potassium 4.0 Chloride 102 Carbon Dioxide 25 BUN 16 Creatinine 0.59 L Glucose 98 Calcium 8.4 Liver Function 09/01/25 Range/Units 22:54 Total Bilirubin 0.8 (0.2-1.3) mg/dL AST 25 (14-36) U/L ALT 14 (6-35) U/L Alkaline Phosphatase 91 (38-126) U/L Albumin 2.9 L (3.5-5.1) g/dL Urine 09/01/ Range/Units 23:13 Urine Color Dark yellow (Yellow) Urine Appearance Cloudy H (Clear) Urine pH 5.5 (5.0-9.0) Ur Specific [place] 1.023 (1.001-1.035) Urine Protein 1+ H (Negative) mg/dL Urine Glucose (UA) Negative (Negative) mg/dL Assessment and Plan Assessment and plan (1) Osteoarthritis of right knee: Code(s): M17.11 - Unilateral primary osteoarthritis, right knee Status: Acute Assessment and Plan: Patient has a longstanding history of chronic right knee pain and swelling he, similar presentation in November and March of 2025 Joint culture showed no growth last visit CRP 24, ESR 140 Arthroscopy in ED Awaiting cultures Orthopedic consult, appreciate further recommendations Recommends beginning prednisone - however patient is already taking 40mg of prednisone daily Will discuss with Ortho regarding possible alternatives such as Celebrex No surgical intervention for washout planned at this time Continue cefepime, clindamycin phosphate (2) Rheumatoid arthritis: Code(s): M06.9 - Rheumatoid arthritis, unspecified Status: Acute Assessment and Plan: See above (3) Urinary tract infection: Code(s): N39.0 - Urinary tract infection, site not specified Status: Acute Assessment and Plan: UA: 1+ leukocyte esterase, 6-10 WBC, many squamous epithelial cells, 1+ bacteria UC obtained on 09/02 Continue cefepime for possible septic arthritis (4) Severe protein-calorie malnutrition: Code(s): E43 - Unspecified severe protein-calorie malnutrition Status: Acute Assessment and Plan: Dietitian consulted, appreciate further recommendations (5) Hypertension: Qualifiers: Hypertension type: primary hypertension Qualified Code(s): I10 - Essential (primary) hypertension Code(s): I10 - Essential (primary) hypertension Status: Acute Assessment and Plan: Restart home medications (6) Hyperlipidemia: Code(s): E78.5 - Hyperlipidemia, unspecified Status: Acute Assessment and Plan: Restart home medications Quality VTE Prophylaxis VTE prophylaxis: mechanical ordered
--- NOTE | 2025-09-02 13:39 | P.CDI_ITS ---
CDI Query Clarification Request BMI: 24.7 Nutritional Diagnostic Statement: Please refer to the comprehensive nutrition assessment for further information. If you agree with diagnosis of Severe Protein Calorie Malnutrition as related to protein-energy intake with increased protein-energy needs in setting of chronic disease as evidenced by minimal oral intake for > 1-2 months; significant weight loss of 16% (30 ibs) in 2--3months; severe subcutaneous fat loss (orbital fat pads) and severe muscle wasting (temporalis, clavicle). Please specify severity if known: * Mild * Moderate * Severe * Other/Unknown <Malathi Velarde RN - Last Filed: 09/02/25 13:39> Clarified Diagnosis Clarified Diagnosis: Agree with diagnosis of Severe Protein Calorie Malnutrition - appreciate dietary recommendations <Joon Tijerina PA-C - Last Filed: 09/02/25 13:40>
[2025-09-02] MEDS: CLINDAMYCIN 900 MG/D5W 50 ML 900 MG/50 ML PIGGYBACK 50 MG IVPB ×2 (13:57→21:32)
[2025-09-02] MEDS: CENTRAL LINE FLUSH 10 ML IV PUSH ×2 (13:59→21:32)
--- NOTE | 2025-09-02 14:00 | P.CONOP_ITS ---
Assessment and Plan Assessment and plan (1) Osteoarthritis of right knee: Code(s): M17.11 - Unilateral primary osteoarthritis, right knee Status: Acute Assessment and Plan: Patient has knee pain right. She had a very similar presentation in November and March. Nothing grew with cultures last visit. Her CRP and sed rate are greatly elevated again. The arthroscopy gave some relief. Will await cultures. Discussion about RA last visit. I would begin prednisone and see if that helps in the interim. Will follow along. History of Present Illness HPI Consult date: 09/02/25 Chief complaint: R/O septic arthritis Review of Systems 2 Review of Systems: All systems reviewed & are unremarkable except as noted in HPI and below Musculoskeletal: Comments: wrist tingling/pain PMFSH Past Medical History Medical History DVT (deep venous thrombosis) No longer on anticoagulation Chronic blood loss anemia History of seizure (~11/2023) Following surgery for septic arthritis. Osteopenia Moderate protein malnutrition Diastolic dysfunction Echo 04/2024 demonstrated EF of 60 65%, mildly increased left ventricular wall thickness, grade 1 diastolic dysfunction, right ventricular function normal, atrial septum appears aneurysmal, moderate aortic valve calcification, mild mitral valve regurgitation, mild tricuspid valve regurgitation Occult blood in stools Hyperlipidemia Hypertension Rheumatoid arthritis Surgical History Surgical History History of colonoscopy (07/17/24) Internal hemorrhoids, diverticulosis Normal esophagogastroduodenoscopy (EGD) (07/17/24) PEG (percutaneous endoscopic gastrostomy) status Place at [facility] in January 2024 due to dysphagia, remains in place due to moderate to severe protein calorie malnutrition with approximately 50 lb weight loss since August 2023. History of total left knee replacement Port-A-Cath in place Left chest wall H/O right knee surgery (~11/2023) Washout due to septic arthritis November 2023 H/O: hysterectomy Family History Family History Father , black lung disease No problems noted. Mother , from OJI gangrene. No problems noted. Sibling Acute myocardial infarction Prednisolone adverse reaction Sibling No problems noted. Social History Social History (Reviewed 06/26/25 @ 07:18 by Desiree Gibson [facility] CENTERJuan Pablo Social History: Code status: DNR/DNI (per patient request) she states that she does not think that her would agree with this but this is her desire. 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 [employer] Gender identity (if verbalized by the patient): Male Spiritual care concerns: No Meds Home Medications and Allergies Home Medications ?Medication ?Instructions ?Recorded ?Confirmed ?Type polyethylene glycol 3350 17 17 g PO DAILY 07/09/24 History gram/dose oral powder (Miralax) metoprolol succinate 25 mg 25 mg PO QAM #60 tabs 07/2209/02/25 Rx tablet,extended release 24 hr (Toprol XL) bisacodyl 5 mg tablet,delayed 10 mg (2 x 5 mg) PO QAM PRN 12/17/24 09/02/25 Rx release (Laxative (bisacodyl)) Constipation #30 tabs ferrous sulfate 325 mg (65 mg 325 mg PO BIDWM #60 tabs 12/17/24 09/02/25 Rx iron) tablet,delayed release tramadol 50 mg tablet 50 mg PO Q12H PRN pain 04/0109/02/25 History aspirin 81 mg tablet 81 mg PO DAILY 05/15/2508/20 History hydrochlorothiazide 12.5 mg capsule 12.5 mg PO DAILY 0 05/15/25 09/02/25 History prednisone 20 mg tablet 5 mg PO BID 05/15/25 5 History pantoprazole 40 mg tablet,delayed 40 mg PO DAILY 09/0209/02/25 History release pregabalin 50 mg capsule 50 mg PO BID 09/02/25 History Allergies Allergy/AdvReac Type Severity Reaction Status Date / Time amlodipine Allergy Severe Hives Verified 09/02/25 07:53 banana Allergy Severe throat Verified 09/02/25 07:53 Itching latex Allergy Severe Redness of Verified 09/02/25 07:53 Skin, baker lisinopril Allergy Severe Difficulty Verified 09/02/25 07:53 Breathing Penicillins Allergy Severe Rash Verified 09/02/25 07:53 pseudoephedrine Allergy Severe Difficulty Verified 09/02/25 07:53 Breathing tetracycline Allergy Severe Difficulty Verified 09/02/25 07:53 Breathing tree nut Allergy Severe Other Verified 09/02/25 07:53 dextromethorphan Allergy Intermediate Rash Verified 09/02/25 07:53 prednisone Allergy Unknown Other Verified 09/02/25 07:53 acetaminophen AdvReac Intermediate Nausea and Verified 09/02/25 07:53 Vomiting aspirin AdvReac Intermediate Nausea and Verified 09/02/25 07:53 Vomiting vancomycin AdvReac Intermediate Other Verified 09/02/25 07:53 Sulfa (Sulfonamide AdvReac Mild Other Verified 09/02/25 07:53 Antibiotics) Vital Signs Vital Signs - 24 hr 09/01/25 16:17 09/01/25 20:26 09/01/25 22:49 Temperature 98.1 F Pulse Rate 77 84 74 Respiratory Rate 16 15 17 Blood Pressure 120/77 183/83 H 159/84 H Pulse Oximetry 99 100 99 Oxygen Delivery Room Air 09/02/25 00:05 09/02/25 03:52 09/02/25 04:07 Temperature Pulse Rate 86 90 94 Respiratory Rate 16 22 H 21 H Blood Pressure 129/83 127/78 139/68 Pulse Oximetry 100 100 99 Oxygen Delivery 09/02/25 06:06 09/02/25 06:32 09/02/25 06:45 Temperature 99.1 F 99.1 F Pulse Rate 103 H 99 99 Respiratory Rate 24 H 23 H 23 H Blood Pressure 174/84 H 131/63 131/63 Pulse Oximetry 94 96 96 Oxygen Delivery 09/02/25 07:00 09/02/25 09:53 Temperature 99.1 F Pulse Rate 95 95 Respiratory Rate 20 20 Blood Pressure 122/61 Pulse Oximetry 100 100 Oxygen Delivery Room Air Exam 2 Narrative: Patient has pain and swelling in the right knee. She is chronically swollen painful. I have seen her in the office. I sent her back to [place] where the original surgery was performed. Unfortunately she continues to be symptomatic. Eyes: General: appearance normal, both eyes and all related structures Neck: Neck: supple Resp: Effort & Inspection: normal respiratory effort Cardio: Rate: regular rate Rhythm: regular rhythm Results Labs 09/01/25 22:54 09/01/25 22:54 Labs: Abnormal lab results 09/01/25 09/01/25 09/01/25 Range/Units 22:20 22:54 23:13 RBC 2.96 L (4.2-5.4) M/mm3 Hgb 9.2 L (12.0-15.0) g/dL Hct 28.8 L (37.0-47.0) % MCHC 31.9 L (32-36) g/dl RDW 15.3 H (11.5-14.5) % Plt Count 380 H (150-375) k/mm3 Immature Gran % (Auto) 8.3 H (0-0.5) % Baso % (Auto) 1.4 H (0.2-1.2) % Abs Immat Gran (auto) 0.75 H (0.00-0.031) K/mm3 ESR 140 H (0-20) mm/hr PT (11.1-14.7) Seconds Sodium 134 L (137-145) mmol/L Creatinine 0.59 L (0.7-1.0) mg/dL C-Reactive Protein 24.0 H (<1.0) mg/dL Albumin 2.9 L (3.5-5.1) g/dL Urine Appearance Cloudy H (Clear) Urine Protein 1+ H (Negative) mg/dL Urine Ketones 1+ H (Negative) mg/dL Urine Bilirubin 1+ H (Negative) Leukocyte Esterase Rfl 1+ H (Negative) JACKI/UL Urine WBC 6-10 H (0-3) /hpf Ur Squamous Epith Cells Many H (Few) /hpf Urine Bacteria 1+ H /hpf Synovial Appearance Cloudy A (Clear) Synovial RBC 29224 H (0-0) /uL Synovial Nuc Cells 82126 H (0-200) /uL Synovial Neutrophils 80 H (0-25) % 09/02/25 Range/Units 00:53 RBC (4.2-5.4) M/mm3 Hgb (12.0-15.0) g/dL Hct (37.0-47.0) % MCHC (32-36) g/dl RDW (11.5-14.5) % Plt Count (150-375) k/mm3 Immature Gran % (Auto) (0-0.5) % Baso % (Auto) (0.2-1.2) % Abs Immat Gran (auto) (0.00-0.031) K/mm3 ESR (0-20) mm/hr PT 15.6 H (11.1-14.7) Seconds Sodium (137-145) mmol/L Creatinine (0.7-1.0) mg/dL C-Reactive Protein (<1.0) mg/dL Albumin (3.5-5.1) g/dL Urine Appearance (Clear) Urine Protein (Negative) mg/dL Urine Ketones (Negative) mg/dL Urine Bilirubin (Negative) Leukocyte Esterase Rfl (Negative) JACKI/UL Urine WBC (0-3) /hpf Ur Squamous Epith Cells (Few) /hpf Urine Bacteria /hpf Synovial Appearance (Clear) Synovial RBC (0-0) /uL Synovial Nuc Cells (0-200) /uL Synovial Neutrophils (0-25) % H & H 09/01/25 Range/Units 22:54 Hgb 9.2 L (12.0-15.0) g/dL Hct 28.8 L (37.0-47.0) % Coagulation 09/02/25 Range/Units 00:53 INR 1.3 All other labs normal.
[2025-09-02] MEDS: traMADol HCL (*CRX) 50 MG TABLET PO (14:45)
[2025-09-02] MEDS: FERROUS SULFATE 325 MG TABLET PO (16:26)
[2025-09-03] VITALS (8 sets, daily range): BP systolic 84–118; BP diastolic 46–56; PULSE 71–89; RESP 16–26; TEMP 36.3–38.2; O2SAT 95–100
[2025-09-03] MEDS: CEFEPIME 2 GM in SODIUM CHLORIDE 0.9% IV 50 ML 100 ML IVPB ×2 (04:14→14:15)
[2025-09-03] MEDS: traMADol HCL (*CRX) 50 MG TABLET PO (04:15)
[2025-09-03] MEDS: CLINDAMYCIN 900 MG/D5W 50 ML 900 MG/50 ML PIGGYBACK 50 MG IVPB ×3 (06:17→21:02)
[2025-09-03] MEDS: CENTRAL LINE FLUSH 10 ML IV PUSH ×3 (06:17→21:05)
--- NOTE | 2025-09-03 07:08 | P.PNIM_ITS ---
Progress Note: A&P Assessment and Plan (1) Osteoarthritis of right knee: Code(s): M17.11 - Unilateral primary osteoarthritis, right knee Status: Acute Assessment and Plan: * Patient has a longstanding history of chronic right knee pain and swelling he, similar presentation in November and March of 2025 * Joint culture showed no growth last visit * CRP 24, ESR 140 * Arthroscopy in ED * Awaiting cultures * Orthopedic consult, appreciate further recommendations * Recommends beginning prednisone - however patient is already taking 40mg of prednisone daily * Will discuss with Ortho regarding possible alternatives such as Celebrex * No surgical intervention for washout planned at this time * Continue cefepime, clindamycin phosphate * Synovial fluid - no growth to date (2) Rheumatoid arthritis: Code(s): M06.9 - Rheumatoid arthritis, unspecified Status: Acute Assessment and Plan: * See above (3) Urinary tract infection: Code(s): N39.0 - Urinary tract infection, site not specified Status: Acute Assessment and Plan: * UA: 1+ leukocyte esterase, 6-10 WBC, many squamous epithelial cells, 1+ bacteria * UC pending * Continue cefepime for possible septic arthritis (4) Severe protein-calorie malnutrition: Code(s): E43 - Unspecified severe protein-calorie malnutrition Status: Acute Assessment and Plan: * Dietitian consulted, appreciate further recommendations (5) Hypertension: Qualifiers: Hypertension type: primary hypertension Qualified Code(s): I10 - Essential (primary) hypertension Code(s): I10 - Essential (primary) hypertension Status: Acute Assessment and Plan: * Restart home medications (6) Hyperlipidemia: Code(s): E78.5 - Hyperlipidemia, unspecified Status: Acute Assessment and Plan: * Restart home medications Subjective Date/time seen: 09/03/25 07:08 Interval history: Tiesha Stock is a 75 year old female with a past medical history of HTN, HLP, anemia, DVT not on anticoagulation, rheumatoid arthritis, diastolic dysfunction who presents to the hospital for right knee pain and swelling. Also reporting f bekah at home. She states that she is no longer able to walk at home due to the pain and swelling. 09/03/2025 Patient resting comfortably in bed at time of exam. Denies any CP, SOB, n/v or abd pain. States the R knee pain/swelling feels improved since yesterday. On exam, swelling does appear to have improved. Blood cultures still pending, synovial fluid shows no growth to date. Leukocytosis w/ WBC 14.8, however afebrile. Pending urine culture. Review of Systems Review of Systems: All systems reviewed & are unremarkable except as noted in HPI and below Exam Narrative: Gen - well appearing female in no acute respiratory distress who is nontoxic- appearing lying semi recumbent in bed HEENT - normocephalic. Atraumatic. Pupils equal round and reactive. Nares patent. Oropharynx was clear. No oral lesions. Neck - neck was supple. No dominant adenopathy, thyromegaly or masses. 2+ carotid upstrokes without bruits. Chest - lungs are clear to auscultation bilaterally. No wheezes or crackles. CV - heart was regular rate and rhythm. S1-S2. Abd - abdomen was soft. Nontender. Nondistended. Positive bowel sounds. Ext -swelling and pain to right knee. Patient reportedly chronically swollen. No clubbing, cyanosis or edema. 2+ DP pulses bilaterally. Neuro - patient is alert and oriented x4. Strength is 5/5 in both upper and lower extremities. Speech is clear. Psych - normal mood and affect. Patient is pleasant and cooperative. Skin - warm and dry. No rashes noted. Objective Data Vital Signs Vital Signs: Vital Signs - 24 hr 09/02/25 09:53 09/02/25 14:00 09/02/25 20:00 Temperature 99.6 F Pulse Rate 95 87 Respiratory Rate 20 20 Blood Pressure 115/55 L Pulse Oximetry 100 99 Oxygen Delivery Room Air Room Air 09/02/25 20:12 09/03/25 04:45 Temperature 98.3 F 99.6 F Pulse Rate 88 89 Respiratory Rate 16 16 Blood Pressure 110/51 L 118/46 L Pulse Oximetry 100 98 Oxygen Delivery Intake/Output Intake/Output: Intake & Output 08/31/25 09/01/25 09/02/25 09/03/25 23:59 23:59 23:59 23:59 Intake Total 648.3 300 Output Total 300 Balance 348.3 300 Meds/Results Medications: Active Medications Generic Name Dose Route Start Last Admin Trade Name Freq PRN Reason Stop Dose Admin Aspirin 81 mg 09/03/25 09:00 Aspirin 81 Mg Enteric Tablet PO QAM [facility] Bisacodyl 10 mg 09/02/25 14:24 Bisacodyl 5 Mg Tablet Ec PO QAM PRN Constipation Celecoxib 200 mg 09/03/25 08:00 Celecoxib 200 Mg Capsule PO DAILY@0800 [facility] Ferrous Sulfate 325 mg 09/02/25 17:00 09/02/25 16:26 Ferrous Sulfate 325 Mg Tablet PO 325 mg BIDWM [facility] Administration Heparin Sodium (Beef Lung) 50 units 09/02/25 09:00 09/02/25 09:53 Heparin Flush 50 Units/5 Ml Syringe IV PUSH 50 units QAM [facility] Administration Heparin Sodium (Beef Lung) 50 units 09/02/25 06:33 Heparin Flush 50 Units/5 Ml Syringe IV PUSH PRN PRN after intermittent infusion Heparin Sodium (Beef Lung) 50 units 09/02/25 06:33 Heparin Flush 50 Units/5 Ml Syringe IV PUSH PRN PRN after blood draws Heparin Sodium (Porcine) 500 units 09/02/25 06:33 Heparin Sodium Lock Flush 500 Units/5 Ml Syringe IV PUSH PRN PRN see comments below Hydrochlorothiazide 12.5 mg 09/03/25 09:00 Hydrochlorothiazide 12.5 Mg Capsule PO DAILY [facility] Cefepime HCl 2 gm/ Sodium 50 mls @ 100 mls/hr 09/02/25 15:00 09/03/25 04:44 Chloride IVPB Infused Q12H [facility] Infusion Clindamycin Phosphate 900 mg in 50 mls @ 50 mls/hr 09/02/25 14:00 09/03/25 06:17 Cleocin 900 Mg/D5w 50 Ml IVPB 50 mls/hr Q8H [facility] Administration Metoprolol Succinate 25 mg 09/03/25 09:00 Metoprolol Succinate Ext Rel 25 Mg Tabcr PO QAM [facility] Miscellaneous Information 1 each 09/02/25 00:01 Pregabalin Home Rx Is For Prn Nerve Pain. Ordered Bid Scheduled In Hospital.Please Clarify XX 10/02/25 00:00 CLARIFY [facility] Pantoprazole Sodium 40 mg 09/03/25 09:00 Pantoprazole 40 Mg Tablet PO DAILY [facility] Polyethylene Glycol 17 gm 09/03/25 09:00 Polyethylene Glycol 3350 17 Gm Powd.Pack PO DAILY [facility] Pregabalin 50 mg 09/02/25 17:00 Pregabalin (*Crx) 50 Mg Capsule PO BID [facility] Sodium Chloride 10 ml 09/02/25 14:00 09/03/25 06:17 Central Line Flush IV PUSH 10 ml Q8HR [facility] Administration Tramadol HCl 50 mg 09/02/25 14:24 09/03/25 04:15 Tramadol Hcl (*Crx) 50 Mg Tablet PO 50 mg Q12H PRN Administration Pain 4-6 Radiology Results: ITS Impressions Knee X-Ray 09/01/25 20:50 IMPRESSION: No acute fracture or dislocation. Severe degenerative changes. Large suprapatellar joint effusion. Wrist X-Ray 09/01/25 21:04 IMPRESSION: Extensive erosive changes. Chest X-Ray 09/01/25 22:39 IMPRESSION: No acute pulmonary findings. Venous Doppler Study 09/02/25 20:10 IMPRESSION: There was no sonographic evidence of deep vein thrombosis in the right lower extremity. Quality VTE Prophylaxis VTE prophylaxis: mechanical ordered
[2025-09-03 07:38] LABS: Hematocrit 27.0 % (37.0-47.0); Hemoglobin 8.6 g/dL (12.0-15.0); Immature Granulocyte Percent A 3.9 % (0-0.5); Lymphocytes Absolute Auto 0.62 K/mm3 (0.9-3.2); Mean Corpuscular HGB Conc 31.9 g/dl (32-36); Mean Corpuscular Hemoglobin 31.5 pg (26-34); Mean Corpuscular Volume 98.9 fl (80-100); Nucleated Red Blood Cells Absolute Auto 0.000 K/mm3 (0.0-0.012); Nucleated Red Blood Cells Perc 0.0 % (0.0-0.2); Platelet Count Result 329 k/mm3 (150-375); Red Blood Count 2.73 M/mm3 (4.2-5.4); White Blood Count 14.8 K/mm3 (4.5-10.0)
[2025-09-03 08:01] LABS: Alanine Aminotransferase 11 U/L (6-35); Albumin Level 2.4 g/dL (3.5-5.1); Alkaline Phosphatase 87 U/L (38-126); Anion Gap 4 mmol/L (4-12); Aspartate Amino Transferase 27 U/L (14-36); Bilirubin,Total 0.9 mg/dL (0.2-1.3); Blood Urea Nitrogen 24 mg/dL (7-17); Calcium 7.6 mg/dL (8.4-10.2); Carbon Dioxide 26 mmol/L (22-30); Chloride 102 mmol/L (98-107); Estimated CRCL calculation 41 ml/min; Estimated Glomerular Filt Rate 58; Glucose 117 mg/dL (65-110); Potassium 4.1 mmol/L (3.4-5.0); Sodium 132 mmol/L (137-145); Total Protein 6.4 g/dL (6.3-8.2)
--- NOTE | 2025-09-03 08:19 | PM.PNORT ---
Progress Note: A&P Assessment and Plan (1) Effusion of right knee: Code(s): M25.461 - Effusion, right knee Status: Acute (2) Osteoarthritis of right knee: Code(s): M17.11 - Unilateral primary osteoarthritis, right knee Status: Acute Plan Cultures negative to date. Following. Subjective Subjective Date/Time Seen: 09/03/25 08:19 Principal diagnosis: Rhuematoid arthritis with knee flare Review of Systems Review of Systems: All systems reviewed & are unremarkable except as noted in HPI and below Musculoskeletal: Comments: wrist tingling/pain Exam Narrative: Patient has pain and swelling in the right knee. She is chronically swollen painful. I have seen her in the office. I sent her back to [place] where the original surgery was performed. Unfortunately she continues to be symptomatic. Eyes: General: appearance normal, both eyes and all related structures Neck: Neck: supple Resp: Effort & Inspection: normal respiratory effort Cardio: Rate: regular rate Rhythm: regular rhythm Objective Data Vital Signs Vital Signs: Vital Signs - 24 hr 09/02/25 09:53 09/02/25 14:00 09/02/25 20:00 Temperature 99.6 F Pulse Rate 95 87 Respiratory Rate 20 20 Blood Pressure 115/55 L Pulse Oximetry 100 99 Oxygen Delivery Room Air Room Air 09/02/25 20:12 09/03/25 04:45 Temperature 98.3 F 99.6 F Pulse Rate 88 89 Respiratory Rate 16 16 Blood Pressure 110/51 L 118/46 L Pulse Oximetry 100 98 Oxygen Delivery Intake/Output Intake/Output: Intake & Output 08/31/25 09/01/25 09/02/25 09/03/25 23:59 23:59 23:59 23:59 Intake Total 648.3 300 Output Total 300 Balance 348.3 300 Meds/Results Medications: Active Medications Generic Name Dose Route Start Last Admin Trade Name Freq PRN Reason Stop Dose Admin Aspirin 81 mg 09/03/25 09:00 Aspirin 81 Mg Enteric Tablet PO QAM [facility] Bisacodyl 10 mg 09/02/25 14:24 Bisacodyl 5 Mg Tablet Ec PO QAM PRN Constipation Celecoxib 200 mg 09/03/25 08:00 Celecoxib 200 Mg Capsule PO DAILY@0800 [facility] Ferrous Sulfate 325 mg 09/02/25 17:00 09/02/25 16:26 Ferrous Sulfate 325 Mg Tablet PO 325 mg BIDWM [facility] Administration Heparin Sodium (Beef Lung) 50 units 09/02/25 09:00 09/02/25 09:53 Heparin Flush 50 Units/5 Ml Syringe IV PUSH 50 units QAM [facility] Administration Heparin Sodium (Beef Lung) 50 units 09/02/25 06:33 09/03/25 07:22 Heparin Flush 50 Units/5 Ml Syringe IV PUSH 50 units PRN PRN Administration after intermittent infusion Heparin Sodium (Beef Lung) 50 units 09/02/25 06:33 09/03/25 07:34 Heparin Flush 50 Units/5 Ml Syringe IV PUSH 50 units PRN PRN Administration after blood draws Heparin Sodium (Porcine) 500 units 09/02/25 06:33 Heparin Sodium Lock Flush 500 Units/5 Ml Syringe IV PUSH PRN PRN see comments below Hydrochlorothiazide 12.5 mg 09/03/25 09:00 Hydrochlorothiazide 12.5 Mg Capsule PO DAILY [facility] Cefepime HCl 2 gm/ Sodium 50 mls @ 100 mls/hr 09/02/25 15:00 09/03/25 04:44 Chloride IVPB Infused Q12H [facility] Infusion Clindamycin Phosphate 900 mg in 50 mls @ 50 mls/hr 09/02/25 14:00 09/03/25 06:17 Cleocin 900 Mg/D5w 50 Ml IVPB 50 mls/hr Q8H [facility] Administration Metoprolol Succinate 25 mg 09/03/25 09:00 Metoprolol Succinate Ext Rel 25 Mg Tabcr PO QAM [facility] Miscellaneous Information 1 each 09/02/25 00:01 Pregabalin Home Rx Is For Prn Nerve Pain. Ordered Bid Scheduled In Hospital.Please Clarify XX 10/02/25 00:00 CLARIFY [facility] Pantoprazole Sodium 40 mg 09/03/25 09:00 Pantoprazole 40 Mg Tablet PO DAILY [facility] Polyethylene Glycol 17 gm 09/03/25 09:00 Polyethylene Glycol 3350 17 Gm Powd.Pack PO DAILY [facility] Pregabalin 50 mg 09/02/25 17:00 Pregabalin (*Crx) 50 Mg Capsule PO BID [facility] Sodium Chloride 10 ml 09/02/25 14:00 09/03/25 06:17 Central Line Flush IV PUSH 10 ml Q8HR [facility] Administration Tramadol HCl 50 mg 09/02/25 14:24 09/03/25 04:15 Tramadol Hcl (*Crx) 50 Mg Tablet PO 50 mg Q12H PRN Administration Pain 4-6 Radiology Results: ITS Impressions Knee X-Ray 09/01/25 20:50 IMPRESSION: No acute fracture or dislocation. Severe degenerative changes. Large suprapatellar joint effusion. Wrist X-Ray 09/01/25 21:04 IMPRESSION: Extensive erosive changes. Chest X-Ray 09/01/25 22:39 IMPRESSION: No acute pulmonary findings. Venous Doppler Study 09/02/25 20:10 IMPRESSION: There was no sonographic evidence of deep vein thrombosis in the right lower extremity. Labs Labs: Laboratory Results - last 24 hr 09/03/25 07:32 WBC 14.8 H RBC 2.73 L Hgb 8.6 L Hct 27.0 L MCV 98.9 MCH 31.5 MCHC 31.9 L RDW 15.8 H Plt Count 329 MPV 8.9 Immature Gran % (Auto) 3.9 H Neut % (Auto) 85.6 H Lymph % (Auto) 4.2 L [place] % (Auto) 2.8 Eos % (Auto) 3.0 Baso % (Auto) 0.5 Lymph # (Auto) 0.62 L [place] # (Auto) 0.4 Eos # (Auto) 0.4 H Baso # (Auto) 0.1 Abs Immat Gran (auto) 0.57 H Absolute Neuts (auto) 12.7 H Absolute Nucleated RBC 0.000 Nucleated RBC % 0.0 Sodium 132 L Potassium 4.1 Chloride 102 Carbon Dioxide 26 Anion Gap 4 BUN 24 H Creatinine 0.94 Estim Creat Clear Calc 41 Estimated GFR 58 L Glucose 117 H Calcium 7.6 L Total Bilirubin 0.9 AST 27 ALT 11 Alkaline Phosphatase 87 Total Protein 6.4 Albumin 2.4 L
--- NOTE | 2025-09-03 09:39 | PCOTNOTE ---
Attempted to see pt. for occupational therapy evaluation. Pt. declined to participate at this time. Nursing aware.
[2025-09-03] MEDS: ASPIRIN 81 MG ENTERIC TABLET PO (10:30)
[2025-09-03] MEDS: FERROUS SULFATE 325 MG TABLET PO ×2 (10:31→17:43)
[2025-09-03] MEDS: METOPROLOL SUCCINATE EXT REL 25 MG TABCR PO (10:31)
[2025-09-03] MEDS: CELECOXIB 200 MG CAPSULE PO (10:31)
[2025-09-03] MEDS: PANTOPRAZOLE 40 MG TABLET PO (10:31)
[2025-09-03 14:09] LABS: Glucose, Body Fluid 2 mg/dL (.)
[2025-09-03] MEDS: SODIUM CHLORIDE 0.9% IV 500 ML 999 ML (14:35)
[2025-09-03] MEDS: SODIUM CHLORIDE 0.9% IV 500 ML IV CONT (14:58)
[2025-09-03] MEDS: SODIUM CHLORIDE 0.9% IV 1,000 ML 75 ML IV CONT (14:59)
[2025-09-04] VITALS (12 sets, daily range): BP systolic 99–122; BP diastolic 48–76; PULSE 73–87; RESP 16–25; TEMP 36.3–37.6; O2SAT 93–100
[2025-09-04] MEDS: SODIUM CHLORIDE 0.9% IV 1,000 ML 75 ML IV CONT ×2 (02:54→12:04)
[2025-09-04] MEDS: CEFEPIME 2 GM in SODIUM CHLORIDE 0.9% IV 50 ML 100 ML IVPB ×2 (02:54→15:03)
[2025-09-04] MEDS: CLINDAMYCIN 900 MG/D5W 50 ML 900 MG/50 ML PIGGYBACK 50 MG IVPB ×3 (05:06→21:56)
[2025-09-04] MEDS: CENTRAL LINE FLUSH 10 ML IV PUSH ×2 (05:06→21:56)
--- NOTE | 2025-09-04 06:57 | P.PNOP_ITS ---
Progress Note: A&P Assessment and Plan (1) Effusion of right knee: Code(s): M25.461 - Effusion, right knee Status: Acute Assessment and Plan: Awaiting cultures for to rule out infection. Patient progressing slowly. Unless cultures come back positive no surgery is contemplated at this time. (2) Osteoarthritis of right knee: Code(s): M17.11 - Unilateral primary osteoarthritis, right knee Status: Acute Subjective Subjective Date/Time Seen: 09/04/25 06:57 Principal diagnosis: Rheumatoid Flare. R/O Septic Knee Review of Systems Musculoskeletal: Musculoskeletal: Reports arthralgias, Reports joint swelling and Reports stiffness Exam Narrative: Patient has pain and swelling in the right knee. She is chronically swollen painful. I have seen her in the office. I sent her back to [place] where the original surgery was performed. Unfortunately she continues to be symptomatic. Eyes: General: appearance normal, both eyes and all related structures Neck: Neck: supple Resp: Effort & Inspection: normal respiratory effort Cardio: Rate: regular rate Rhythm: regular rhythm Objective Data Vital Signs Vital Signs: Vital Signs - 24 hr 09/03/25 09:39 09/03/25 10:31 09/03/25 10:40 Temperature Pulse Rate 86 Respiratory Rate Blood Pressure Pulse Oximetry 95 Oxygen Delivery Room Air Room Air 09/03/25 12:43 09/03/25 14:00 09/03/25 15:49 Temperature 97.5 F L 97.4 F L Pulse Rate 85 80 Respiratory Rate 17 18 Blood Pressure 84/48 L 91/48 L Pulse Oximetry 98 100 Oxygen Delivery Room Air 09/03/25 17:41 09/03/25 20:15 09/04/25 00:00 Temperature 100.7 F H 99.6 F Pulse Rate 71 88 73 Respiratory Rate 16 26 H 22 H Blood Pressure 100/54 L 110/56 L 99/48 L Pulse Oximetry 96 97 93 Oxygen Delivery 09/04/25 03:18 Temperature 98.5 F Pulse Rate 74 Respiratory Rate 20 Blood Pressure 106/55 L Pulse Oximetry 100 Oxygen Delivery Intake/Output Intake/Output: Intake & Output 09/01/25 09/02/25 09/03/25 09/04/25 23:59 23:59 23:59 23:59 Intake Total 648.3 1170 993.8 Output Total 300 300 250 Balance 348.3 870 743.8 Meds/Results Medications: Active Medications Generic Name Dose Route Start Last Admin Trade Name Freq PRN Reason Stop Dose Admin Aspirin 81 mg 09/03/25 09:00 09/03/25 10:30 Aspirin 81 Mg Enteric Tablet PO 81 mg QAM [facility] Administration Bisacodyl 10 mg 09/02/25 14:24 Bisacodyl 5 Mg Tablet Ec PO QAM PRN Constipation Celecoxib 200 mg 09/03/25 08:00 09/03/25 10:31 Celecoxib 200 Mg Capsule PO 200 mg DAILY@0800 [facility] Administration Ferrous Sulfate 325 mg 09/02/25 17:00 09/03/25 17:43 Ferrous Sulfate 325 Mg Tablet PO 325 mg BIDWM [facility] Administration Heparin Sodium (Beef Lung) 50 units 09/02/25 09:00 09/03/25 10:30 Heparin Flush 50 Units/5 Ml Syringe IV PUSH 50 units QAM [facility] Administration Heparin Sodium (Beef Lung) 50 units 09/02/25 06:33 09/03/25 07:22 Heparin Flush 50 Units/5 Ml Syringe IV PUSH 50 units PRN PRN Administration after intermittent infusion Heparin Sodium (Beef Lung) 50 units 09/02/25 06:33 09/03/25 07:34 Heparin Flush 50 Units/5 Ml Syringe IV PUSH 50 units PRN PRN Administration after blood draws Heparin Sodium (Porcine) 500 units 09/02/25 06:33 Heparin Sodium Lock Flush 500 Units/5 Ml Syringe IV PUSH PRN PRN see comments below Hydrochlorothiazide 12.5 mg 09/03/25 09:00 09/03/25 10:31 Hydrochlorothiazide 12.5 Mg Capsule PO 12.5 mg DAILY [facility] Administration Cefepime HCl 2 gm/ Sodium 50 mls @ 100 mls/hr 09/02/25 15:00 09/04/25 03:25 Chloride IVPB Infused Q12H [facility] Infusion Clindamycin Phosphate 900 mg in 50 mls @ 50 mls/hr 09/02/25 14:00 09/04/25 06:10 Cleocin 900 Mg/D5w 50 Ml IVPB Infused Q8H [facility] Infusion Sodium Chloride 1,000 mls @ 75 mls/hr 09/03/25 14:30 09/04/25 02:54 Normal Saline Iv IV CONT 75 mls/hr .[id number] [facility] Administration Ibuprofen 600 mg 09/03/25 22:47 Ibuprofen 600 Mg Tablet PO Q6H PRN Fever > 100.4 Metoprolol Succinate 25 mg 09/03/25 09:00 09/03/25 10:31 Metoprolol Succinate Ext Rel 25 Mg Tabcr PO 25 mg QAM [facility] Administration Miscellaneous Information 1 each 09/02/25 00:01 Pregabalin Home Rx Is For Prn Nerve Pain. Ordered Bid Scheduled In Hospital.Please Clarify XX 10/02/25 00:00 CLARIFY [facility] Pantoprazole Sodium 40 mg 09/03/25 09:00 09/03/25 10:31 Pantoprazole 40 Mg Tablet PO 40 mg DAILY [facility] Administration Polyethylene Glycol 17 gm 09/03/25 09:00 09/03/25 10:33 Polyethylene Glycol 3350 17 Gm Powd.Pack PO 17 gm DAILY [facility] Administration Pregabalin 50 mg 09/02/25 17:00 Pregabalin (*Crx) 50 Mg Capsule PO BID PRN [facility]ERV[facility] Sodium Chloride 10 ml 09/02/25 14:00 09/04/25 05:06 Central Line Flush IV PUSH 10 ml Q8HR [facility] Administration Tramadol HCl 50 mg 09/02/25 14:24 09/03/25 04:15 Tramadol Hcl (*Crx) 50 Mg Tablet PO 50 mg Q12H PRN Administration Pain 4-6 Radiology Results: ITS Impressions Knee X-Ray 09/01/25 20:50 IMPRESSION: No acute fracture or dislocation. Severe degenerative changes. Large suprapatellar joint effusion. Wrist X-Ray 09/01/25 21:04 IMPRESSION: Extensive erosive changes. Venous Doppler Study 09/02/25 20:10 IMPRESSION: There was no sonographic evidence of deep vein thrombosis in the right lower extremity. Chest X-Ray 09/03/25 15:08 Impression: Mild CHF Labs Labs: Laboratory Results - last 24 hr 09/01/25 09/01/25 09/03/25 22:00 22:20 07:32 WBC 14.8 H RBC 2.73 L Hgb 8.6 L Hct 27.0 L MCV 98.9 MCH 31.5 MCHC 31.9 L RDW 15.8 H Plt Count 329 MPV 8.9 Immature Gran % (Auto) 3.9 H Neut % (Auto) 85.6 H Lymph % (Auto) 4.2 L Real % (Auto) 2.8 Eos % (Auto) 3.0 Baso % (Auto) 0.5 Lymph # (Auto) 0.62 L Real # (Auto) 0.4 Eos # (Auto) 0.4 H Baso # (Auto) 0.1 Abs Immat Gran (auto) 0.57 H Absolute Neuts (auto) 12.7 H Absolute Nucleated RBC 0.000 Nucleated RBC % 0.0 Sodium 132 L Potassium 4.1 Chloride 102 Carbon Dioxide 26 Anion Gap 4 BUN 24 H Creatinine 0.94 Estim Creat Clear Calc 41 Estimated GFR 58 L Glucose 117 H POC Capillary Glucose Lactic Acid Calcium 7.6 L Total Bilirubin 0.9 AST 27 ALT 11 Alkaline Phosphatase 87 Total Protein 6.4 Albumin 2.4 L Fluid Glucose 2 Fluid Total Protein 4.0 09/03/25 09/03/25 14:23 15:10 WBC RBC Hgb Hct MCV MCH MCHC RDW Plt Count MPV Immature Gran % (Auto) Neut % (Auto) Lymph % (Auto) Real % (Auto) Eos % (Auto) Baso % (Auto) Lymph # (Auto) Real # (Auto) Eos # (Auto) Baso # (Auto) Abs Immat Gran (auto) Absolute Neuts (auto) Absolute Nucleated RBC Nucleated RBC % Sodium Potassium Chloride Carbon Dioxide Anion Gap BUN Creatinine Estim Creat Clear Calc Estimated GFR Glucose POC Capillary Glucose 106 H Lactic Acid 1.2 Calcium Total Bilirubin AST ALT Alkaline Phosphatase Total Protein Albumin Fluid Glucose Fluid Total Protein
[2025-09-04 09:05] LABS: Hematocrit 28.2 % (37.0-47.0); Hemoglobin 8.8 g/dL (12.0-15.0); Mean Corpuscular HGB Conc 31.2 g/dl (32-36); Mean Corpuscular Hemoglobin 31.1 pg (26-34); Mean Corpuscular Volume 99.6 fl (80-100); Platelet Count Result 332 k/mm3 (150-375); Red Blood Count 2.83 M/mm3 (4.2-5.4); White Blood Count 8.3 K/mm3 (4.5-10.0)
[2025-09-04 09:23] LABS: Alanine Aminotransferase 11 U/L (6-35); Albumin Level 2.3 g/dL (3.5-5.1); Alkaline Phosphatase 77 U/L (38-126); Anion Gap 6 mmol/L (4-12); Aspartate Amino Transferase 25 U/L (14-36); Bilirubin,Total 0.6 mg/dL (0.2-1.3); Blood Urea Nitrogen 29 mg/dL (7-17); Calcium 8.0 mg/dL (8.4-10.2); Carbon Dioxide 23 mmol/L (22-30); Chloride 106 mmol/L (98-107); Estimated CRCL calculation 43 ml/min; Estimated Glomerular Filt Rate > 60; Glucose 93 mg/dL (65-110); Potassium 3.9 mmol/L (3.4-5.0); Sodium 135 mmol/L (137-145); Total Protein 6.2 g/dL (6.3-8.2)
[2025-09-04 09:50] LABS: Band Neutrophils Percent 16 % (0-6); Basophils Absolute Manual 0.08 K/mm3 (0.0-0.1); Basophils Percent Manual 1 % (0-1); Eosinophils Absolute Manual 0.41 K/mm3 (0.02-0.50); Eosinophils Percent Manual 5 % (0-4); Lymphocytes Absolute Manual 0.58 K/mm3 (1.1-4.5); Lymphocytes Percent Manual 7.0 % (18-44); Metamyelocytes Percent 4 %; Monocytes Absolute Manual 0.16 K/mm3 (0.1-0.90); Monocytes Percent Manual 2 % (3-9); Neutrophils Absolute Manual 6.72 K/mm3 (1.3-6.7); Neutrophils Percent Manual 65 % (46-73); Total Cells Counted 100
[2025-09-04 09:51] LABS: Anisocytosis 1+; Macrocytosis Occasional (NORMAL); Schistocytes None Seen
--- NOTE | 2025-09-04 10:48 | PCOTNOTE ---
Collaborated with RN who reports patient has been difficulty to arouse this morning. RN reports code being called on patient yesterday. Recommends giving the patient a day to rest.
--- NOTE | 2025-09-04 11:14 | PC.NURSE ---
Attempted to call Michelle MUNROE, [facility]
[2025-09-04 12:45] LABS: Alveolar/Arterial O2 Gradient 21.2 mmHg; Fractional Inspired Oxygen 21 %; HCO3 ABG 21.9 mEq/l (22.0-26.0); Oxygen Content ABG 13.5 %vol (16.0-22.0); Oxygen Saturation ABG 96.7 % (95.0-100.0); PCO2 ABG 35.2 mmHg (35.0-45.0); PO2 ABG 86.4 mmHg (80.0-100.0); PO2 FiO2 Ratio Arterial Blood 4.11 %
[2025-09-04 12:47] LABS: Modified Allen's Test Pass; Site Drawn RIGHT RADIAL
[2025-09-04 13:36] LABS: Cannabinoid Screen Urine Negative (Negative)
[2025-09-04 13:40] LABS: Influenza A QL RT-PCR Negative (Negative); Influenza B QL RT-PCR Negative (Negative); RSV RNA, RT-PCR Negative (Negative); SARS-CoV-2 RNA PCR Negative (Negative)
--- NOTE | 2025-09-04 14:56 | P.PNIM_ITS ---
Progress Note: A&P Assessment and Plan (1) Osteoarthritis of right knee: Code(s): M17.11 - Unilateral primary osteoarthritis, right knee Status: Acute Assessment and Plan: * Patient has a longstanding history of chronic right knee pain and swelling he, similar presentation in November and March of 2025 * Joint culture showed no growth last visit * CRP 24, ESR 140 * Arthroscopy in ED * Awaiting cultures * Orthopedic consult, appreciate further recommendations * Recommends beginning prednisone - however patient is already taking 40mg of prednisone daily * Will discuss with Ortho regarding possible alternatives such as Celebrex * No surgical intervention for washout planned at this time * Continue cefepime, clindamycin phosphate * Synovial fluid - no growth to date (2) Rheumatoid arthritis: Code(s): M06.9 - Rheumatoid arthritis, unspecified Status: Acute Assessment and Plan: * See above (3) Urinary tract infection: Code(s): N39.0 - Urinary tract infection, site not specified Status: Acute Assessment and Plan: * UA: 1+ leukocyte esterase, 6-10 WBC, many squamous epithelial cells, 1+ bacteria * UC pending * Continue cefepime for possible septic arthritis * am labs * repeat UA with culture sent on 09/03 (4) Severe protein-calorie malnutrition: Code(s): E43 - Unspecified severe protein-calorie malnutrition Status: Acute Assessment and Plan: * Dietitian consulted, appreciate further recommendations (5) Hypertension: Qualifiers: Hypertension type: primary hypertension Qualified Code(s): I10 - Essential (primary) hypertension Code(s): I10 - Essential (primary) hypertension Status: Acute Assessment and Plan: * Restart home medications (6) Hyperlipidemia: Code(s): E78.5 - Hyperlipidemia, unspecified Status: Acute Assessment and Plan: * Restart home medications (7) Hypotension: Code(s): I95.9 - Hypotension, unspecified Status: Acute Assessment and Plan: rapid called 09/03 due to hypotension and low urine output patient given IV fluid bolus followed by continuous fluids BP better (8) Altered mental status: Code(s): R41.82 - Altered mental status, unspecified Status: Acute Assessment and Plan: nurse reported patient had altered mental status today, unable to wake up, does not follow commands, not answering questions, appeared to have facial drooping code stroke was called s/p Head CT without acute findings Brain MRI ordered s/p CXR 09/03 without acute findings. repeat urine culture pending lactic acid 09/03 WNL patient febrile 09/03 PM 100.7 covid/flu/RSV negative UDS negative patient made NPO until AMS improves venous dopplers of BUE and LLE ordered patient has a history of DVT, RUE more edematous than left and also erythematous suspect patient may have had a stroke vs other causes discussed with patients Subjective Date/time seen: 09/04/25 14:56 Interval history: Tiesha Stock is a 75 year old female with a past medical history of HTN, HLP, anemia, DVT not on anticoagulation, rheumatoid arthritis, diastolic dysfunction who presents to the hospital for right knee pain and swelling. Also reporting fevers at home. She states that she is no longer able to walk at home due to the pain and swelling. 09/03/2025 Nurse notified me that patient was altered today, not able to follow commands to take medication, not able to stay awake, further neuro assessment done and code stroke called. Patient had a CT of the head which did not show an acute stroke. Patient was transferred to IMU status. Patient had an episode of hypotension and low urine output yesterday. IV fluid bolus was given followed by continuous IV fluids. Patient seen lying in bed, in no acute distress. Patient briefly opens eyes to calling out her name. Patient does not answer any questions. Patient attempted to squeeze my hand but did not follow any other commands. Patient responsive to pain and winces or moans with any touch. Patient had a chest x-ray yesterday without acute findings. ABG done and no abnormalities. UDS done and negative. UA was sent yesterday and urine culture pending. Viral swab for covid, RSV and flu negative. Patient had a temperature last evening of 100.7 documented. Brain MRI ordered to rule out acute stroke. Venous Doppler of left lower extremity and bilateral upper extremities ordered. Discussed with and he wishes for patient to remain a full code at this time. Patient NPO and ontinues on IV fluids. Review of Systems Review of Systems: ROS unobtainable: Yes unobtainable due to medical condition and unobtainable due to mental status Exam Narrative: Gen - lying semi recumbent in bed HEENT - normocephalic. Atraumatic. Neck - neck was supple. No dominant adenopathy, thyromegaly or masses. 2+ carotid upstrokes without bruits. Chest - lungs are clear to auscultation bilaterally. No wheezes or crackles. CV - heart was regular rate and rhythm. S1-S2. Abd - abdomen was soft. Nontender. Nondistended. Positive bowel sounds. Ext -swelling and pain to right knee. Patient reportedly chronically swollen. No clubbing, cyanosis or edema. 2+ DP pulses bilaterally. Neuro - opens eyes to name briefly, does not answer questions, does not follow commands Psych - ROSI Skin - warm and dry. No rashes noted. Objective Data Vital Signs Vital Signs: Vital Signs - 24 hr 09/03/25 15:49 09/03/25 17:41 09/03/25 20:15 Temperature 97.4 F L 100.7 F H Pulse Rate 80 71 88 Respiratory Rate 18 16 26 H Blood Pressure 91/48 L 100/54 L 110/56 L Pulse Oximetry 100 96 97 Oxygen Delivery 09/04/25 00:00 09/04/25 03:18 09/04/25 07:24 Temperature 99.6 F 98.5 F 97.3 F L Pulse Rate 73 74 73 Respiratory Rate 22 H 20 16 Blood Pressure 99/48 L 106/55 L 117/60 Pulse Oximetry 93 100 100 Oxygen Delivery 09/04/25 09:25 09/04/25 11:32 09/04/25 12:00 Temperature 98.7 F Pulse Rate 73 84 Respiratory Rate 16 25 H Blood Pressure 114/71 Pulse Oximetry 100 100 Oxygen Delivery Room Air Room Air 09/04/25 12:00 09/04/25 12:30 09/04/25 14:00 Temperature Pulse Rate 82 87 Respiratory Rate Blood Pressure Pulse Oximetry 96 Oxygen Delivery Room Air Intake/Output Intake/Output: Intake & Output 09/01/25 09/02/25 09/03/25 09/04/25 23:59 23:59 23:59 23:59 Intake Total 648.3 1170 1630.0 Output Total 300 300 250 Balance 348.3 870 1380.0 Meds/Results Medications: Active Medications Generic Name Dose Route Start Last Admin Trade Name Freq PRN Reason Stop Dose Admin Aspirin 81 mg 09/03/25 09:00 09/04/25 13:03 Aspirin 81 Mg Enteric Tablet PO Not Given QAM MIROSLAVA Bisacodyl 10 mg 09/02/25 14:24 Bisacodyl 5 Mg Tablet Ec PO QAM PRN Constipation Celecoxib 200 mg 09/03/25 08:00 09/04/25 13:03 Celecoxib 200 Mg Capsule PO Not Given DAILY@0800 MIROSLAVA Dextrose 12.5 gm 09/04/25 13:02 Dextrose 50% 25 Gm/50 Ml Syringe IV PUSH PRN PRN Hypoglycemia Protocol Ferrous Sulfate 325 mg 09/02/25 17:00 09/04/25 13:03 Ferrous Sulfate 325 Mg Tablet PO Not Given BIDWM MIROSLAVA Glucagon 1 mg 09/04/25 13:02 Glucagon For Inj 1 Mg Vial IM PRN PRN Hypoglycemia Protocol Glucose 15 gm 09/04/25 13:02 Glucose Oral Gel 15 Gm Of Glucse In 37.5 Gm Tube PO PRN PRN Hypoglycemia Protocol Heparin Sodium (Beef Lung) 50 units 09/02/25 09:00 09/04/25 09:44 Heparin Flush 50 Units/5 Ml Syringe IV PUSH Not Given QAM MIROSLAVA Heparin Sodium (Beef Lung) 50 units 09/02/25 06:33 09/03/25 07:22 Heparin Flush 50 Units/5 Ml Syringe IV PUSH 50 units PRN PRN Administration after intermittent infusion Heparin Sodium (Beef Lung) 50 units 09/02/25 06:33 09/03/25 07:34 Heparin Flush 50 Units/5 Ml Syringe IV PUSH 50 units PRN PRN Administration after blood draws Heparin Sodium (Porcine) 500 units 09/02/25 06:33 Heparin Sodium Lock Flush 500 Units/5 Ml Syringe IV PUSH PRN PRN see comments below Hydrochlorothiazide 12.5 mg 09/03/25 09:00 09/04/25 13:03 Hydrochlorothiazide 12.5 Mg Capsule PO Not Given DAILY MIROSLAVA Cefepime HCl 2 gm/ Sodium 50 mls @ 100 mls/hr 09/02/25 15:00 09/04/25 03:25 Chloride IVPB Infused Q12H MIROSLAVA Infusion Clindamycin Phosphate 900 mg in 50 mls @ 50 mls/hr 09/02/25 14:00 09/04/25 14:01 Cleocin 900 Mg/D5w 50 Ml IVPB 50 mls/hr Q8H MIROSLAVA Administration Sodium Chloride 1,000 mls @ 75 mls/hr 09/03/25 14:30 09/04/25 12:04 Normal Saline Iv IV CONT 75 mls/hr .[id number] MIROSLAVA Administration Dextrose 1,000 mls @ 100 mls/hr 09/04/25 13:02 Dextrose 5% 1,000 Ml IVPB PRN PRN Hypoglycemia Protocol Ibuprofen 600 mg 09/03/25 22:47 Ibuprofen 600 Mg Tablet PO Q6H PRN Fever > 100.4 Metoprolol Succinate 25 mg 09/03/25 09:00 09/04/25 13:03 Metoprolol Succinate Ext Rel 25 Mg Tabcr PO Not Given QAM MIROSLAVA Pantoprazole Sodium 40 mg 09/03/25 09:00 09/04/25 13:04 Pantoprazole 40 Mg Tablet PO Not Given DAILY [facility] Polyethylene Glycol 17 gm 09/03/25 09:00 09/04/25 13:04 Polyethylene Glycol 3350 17 Gm Powd.Pack PO Not Given DAILY MIROSLAVA Pregabalin 50 mg 09/02/25 17:00 Pregabalin (*Crx) 50 Mg Capsule PO BID PRN NERVE PAIN Sodium Chloride 10 ml 09/02/25 14:00 09/04/25 13:55 Central Line Flush IV PUSH Not Given Q8HR MIROSLAVA Tramadol HCl 50 mg 09/02/25 14:24 09/03/25 04:15 Tramadol Hcl (*Crx) 50 Mg Tablet PO 50 mg Q12H PRN Administration Pain 4-6 Radiology Results: ITS Impressions Knee X-Ray 09/01/25 20:50 IMPRESSION: No acute fracture or dislocation. Severe degenerative changes. Large suprapatellar joint effusion. Wrist X-Ray 09/01/25 21:04 IMPRESSION: Extensive erosive changes. Venous Doppler Study 09/02/25 20:10 IMPRESSION: There was no sonographic evidence of deep vein thrombosis in the right lower extremity. Chest X-Ray 09/03/25 15:08 Impression: Mild CHF Head CT 09/04/25 10:55 IMPRESSION: 1. Unchanged small old lacunar infarct at the anterior limb of the right internal capsule. No acute intracranial process. 2. Stable appearance of age-related changes including mild diffuse volume loss and mild to moderate scattered white matter hypoattenuation consistent with chronic small vessel ischemic disease. Labs Labs: Laboratory Results - last 24 hr 09/03/25 09/04/25 09/04/25 15:10 08:51 10:46 WBC 8.3 RBC 2.83 L Hgb 8.8 L Hct 28.2 L MCV 99.6 MCH 31.1 MCHC 31.2 L RDW 15.7 H Plt Count 332 MPV 9.3 Immature Gran % (Auto) Not Reportable Neut % (Auto) Not Reportable Lymph % (Auto) Not Reportable Mayes % (Auto) Not Reportable Eos % (Auto) Not Reportable Baso % (Auto) Not Reportable Lymph # (Auto) Not Reportable Mayes # (Auto) Not Reportable Eos # (Auto) Not Reportable Baso # (Auto) Not Reportable Abs Immat Gran (auto) Not Reportable Absolute Neuts (auto) Not Reportable Absolute Nucleated RBC Not Reportable Total Counted 100 Neutrophils % (Manual) 65 Band Neutrophils % 16 H Lymphocytes % (Manual) 7.0 L Monocytes % (Manual) 2 L Eosinophils % (Manual) 5 H Basophils % (Manual) 1 Metamyelocytes % 4 Nucleated RBC % Not Reportable Abs Neuts (Manual) 6.72 H Abs Lymphs (Manual) 0.58 L Abs Monocytes (Manual) 0.16 Absolute Eos (Manual) 0.41 Abs Basophils (Manual) 0.08 Platelet Estimate Adequate Anisocytosis 1+ Macrocytosis Occasional Schistocytes None seen Puncture Site ABG pH ABG pCO2 ABG pO2 ABG PO2/FiO2 Ratio ABG HCO3 ABG O2 Saturation ABG O2 Content ABG Base Excess A-a Gradient Oxyhemoglobin Total Hemoglobin O2 Delivery Device O2 Liters/Min FiO2 Sodium 135 L Potassium 3.9 Chloride 106 Carbon Dioxide 23 Anion Gap 6 BUN 29 H Creatinine 0.89 Estim Creat Clear Calc 43 Estimated GFR > 60 Glucose 93 POC Capillary Glucose 78 Lactic Acid 1.2 Calcium 8.0 L Total Bilirubin 0.6 AST 25 ALT 11 Alkaline Phosphatase 77 Total Protein 6.2 L Albumin 2.3 L Urine Opiates Screen Urine Methadone Screen Ur Barbiturates Screen Ur Phencyclidine Scrn Ur Amphetamine Screen U Benzodiazepines Scrn Urine Cocaine Screen U Cannabinoids Screen Influenza A (RT-PCR) Influenza B (RT-PCR) RSV (RT-PCR) SARS-CoV-2 RNA (RT-PCR) 09/04/25 09/04/25 12:34 12:47 WBC RBC Hgb Hct MCV MCH MCHC RDW Plt Count MPV Immature Gran % (Auto) Neut % (Auto) Lymph % (Auto) Mayes % (Auto) Eos % (Auto) Baso % (Auto) Lymph # (Auto) Mayes # (Auto) Eos # (Auto) Baso # (Auto) Abs Immat Gran (auto) Absolute Neuts (auto) Absolute Nucleated RBC Total Counted Neutrophils % (Manual) Band Neutrophils % Lymphocytes % (Manual) Monocytes % (Manual) Eosinophils % (Manual) Basophils % (Manual) Metamyelocytes % Nucleated RBC % Abs Neuts (Manual) Abs Lymphs (Manual) Abs Monocytes (Manual) Absolute Eos (Manual) Abs Basophils (Manual) Platelet Estimate Anisocytosis Macrocytosis Schistocytes Puncture Site Right radial ABG pH 7.412 ABG pCO2 35.2 ABG pO2 86.4 ABG PO2/FiO2 Ratio 4.11 ABG HCO3 21.9 L ABG O2 Saturation 96.7 ABG O2 Content 13.5 L ABG Base Excess -2.3 A-a Gradient 21.2 Oxyhemoglobin 95.8 Total Hemoglobin 9.9 L O2 Delivery Device Room air O2 Liters/Min Not Reportable FiO2 21 Sodium Potassium Chloride Carbon Dioxide Anion Gap BUN Creatinine Estim Creat Clear Calc Estimated GFR Glucose POC Capillary Glucose Lactic Acid Calcium Total Bilirubin AST ALT Alkaline Phosphatase Total Protein Albumin Urine Opiates Screen Negative Urine Methadone Screen Negative Ur Barbiturates Screen Negative Ur Phencyclidine Scrn Negative Ur Amphetamine Screen Negative U Benzodiazepines Scrn Negative Urine Cocaine Screen Negative U Cannabinoids Screen Negative Influenza A (RT-PCR) Negative Influenza B (RT-PCR) Negative RSV (RT-PCR) Negative SARS-CoV-2 RNA (RT-PCR) Negative Quality VTE Prophylaxis VTE prophylaxis: mechanical ordered
[2025-09-04] MEDS: DEXTROSE 50% 25 GM/50 ML SYRINGE IV PUSH (17:30)
[2025-09-05] VITALS (13 sets, daily range): BP systolic 120–141; BP diastolic 64–80; PULSE 73–96; RESP 14–27; TEMP 36.8–37.7; O2SAT 93–100
--- NOTE | 2025-09-05 | CONSULT_PTH ---
PATIENT: Tiesha Stock LOC: [id number] U#:[id number] AGE/SX: 75/F ROOM: 345 RE09/02/[address]: Evaristo Cantu MD : [id number] BED: 01 DIS: 09/18/2025 SPEC #: [id number] RECD: 09/05/25 08:10 STATUS: QUINTIN REQ #: [id number] KAYLEEN: 09/05/25 00:[address]: Lien Anders DEPT: [facility] Consult RECD BY: Bailee Ambrosio MLT ENTERED: 09/05/25 08:11 SP TYPE: Consult OT DR: MD Joon Musa PA-C Bhavesh Patel, Tissues: A - Peripheral Smear Procedures: Hematology Consult
[2025-09-05] MEDS: CEFEPIME 2 GM in SODIUM CHLORIDE 0.9% IV 50 ML 100 ML IVPB ×2 (03:05→14:10)
[2025-09-05 05:42] LABS: Hematocrit 28.1 % (37.0-47.0); Hemoglobin 8.9 g/dL (12.0-15.0); Mean Corpuscular HGB Conc 31.7 g/dl (32-36); Mean Corpuscular Hemoglobin 31.2 pg (26-34); Mean Corpuscular Volume 98.6 fl (80-100); Platelet Count Result 332 k/mm3 (150-375); Red Blood Count 2.85 M/mm3 (4.2-5.4); White Blood Count 8.4 K/mm3 (4.5-10.0)
[2025-09-05] MEDS: HYDROmorphone HCL INJ (*CRX) 1 MG/ML SYR 0.5 MG IV PUSH (05:43)
[2025-09-05] MEDS: CENTRAL LINE FLUSH 10 ML IV PUSH ×2 (05:43→22:01)
[2025-09-05] MEDS: CLINDAMYCIN 900 MG/D5W 50 ML 900 MG/50 ML PIGGYBACK 50 MG IVPB ×3 (05:52→22:01)
[2025-09-05 06:22] LABS: Alanine Aminotransferase 11 U/L (6-35); Albumin Level 2.3 g/dL (3.5-5.1); Alkaline Phosphatase 88 U/L (38-126); Anion Gap 3 mmol/L (4-12); Aspartate Amino Transferase 25 U/L (14-36); Bilirubin,Total 0.4 mg/dL (0.2-1.3); Blood Urea Nitrogen 20 mg/dL (7-17); Calcium 7.7 mg/dL (8.4-10.2); Carbon Dioxide 25 mmol/L (22-30); Chloride 106 mmol/L (98-107); Cholesterol 98 mg/dL (0-200); Estimated CRCL calculation 54 ml/min; Estimated Glomerular Filt Rate > 60; Glucose 123 mg/dL (65-110); HDL Direct 9 mg/dL; Potassium 3.6 mmol/L (3.4-5.0); Sodium 134 mmol/L (137-145); Total Protein 6.3 g/dL (6.3-8.2); Triglycerides 130 mg/dL (<150)
[2025-09-05 06:25] LABS: Band Neutrophils Percent 31 % (0-6); Neutrophils Absolute Manual 7.05 K/mm3 (1.3-6.7); Neutrophils Percent Manual 53 % (46-73); Total Cells Counted 100
[2025-09-05 06:26] LABS: Anisocytosis 1+; Eosinophils Absolute Manual 0.58 K/mm3 (0.02-0.50); Eosinophils Percent Manual 7 % (0-4); Hypochromasia 1+; Lymphocytes Absolute Manual 0.67 K/mm3 (1.1-4.5); Lymphocytes Percent Manual 8 % (18-44); Monocytes Absolute Manual 0.08 K/mm3 (0.1-0.90); Monocytes Percent Manual 1 % (3-9); Schistocytes None Seen; Target Cells Occasional
[2025-09-05] MEDS: DEXTROSE 5%/0.9% SOD CHL 1,000 ML 75 ML IV CONT (08:10)
--- NOTE | 2025-09-05 09:26 | P.PNIM_ITS ---
Progress Note: A&P Assessment and Plan (1) Altered mental status: Code(s): R41.82 - Altered mental status, unspecified Status: Acute Assessment and Plan: 09/04 nurse reported patient had altered mental status today, unable to wake up, does not follow commands, not answering questions, appeared to have facial drooping Current exam as above code stroke was called s/p Head CT showed old infarcts Brain MRI ordered and pending s/p CXR 09/03 without acute findings. Check TSH, and ammonia covid/flu/RSV negative UDS negative venous dopplers of BUE and LLE neg Hold all medications that can cause sedation ? CVA (2) Osteoarthritis of right knee: Code(s): M17.11 - Unilateral primary osteoarthritis, right knee Status: Acute Assessment and Plan: * Patient has a longstanding history of chronic right knee pain and swelling he, similar presentation in November and March of 2025 * She had arthrocentesis done in the ER. Synovial fluid suggest inflammatory fluid Cultures are negative till now * CRP 24, ESR 140 * Currently on cefepime and clindamycin * Patient evaluated by Orthopedics no further plans for intervention at this time * Recommends beginning prednisone - however patient is already taking 40mg of prednisone daily * Will discuss with Ortho regarding possible alternatives such as Celebrex * No surgical intervention for washout planned at this time * Continue cefepime, clindamycin phosphate * Synovial fluid - no growth to date (3) Rheumatoid arthritis: Code(s): M06.9 - Rheumatoid arthritis, unspecified Status: Acute Assessment and Plan: * See above (4) Urinary tract infection: Code(s): N39.0 - Urinary tract infection, site not specified Status: Acute Assessment and Plan: * UA: 1+ leukocyte esterase, 6-10 WBC, many squamous epithelial cells, 1+ b acteria * UC negative * Currently on cefepime for possible septic arthritis which should cover (5) Severe protein-calorie malnutrition: Code(s): E43 - Unspecified severe protein-calorie malnutrition Status: Acute Assessment and Plan: * Dietitian consulted, appreciate further recommendations (6) Hypertension: Qualifiers: Hypertension type: primary hypertension Qualified Code(s): I10 - Essential (primary) hypertension Code(s): I10 - Essential (primary) hypertension Status: Acute Assessment and Plan: Will hold antihypertensives due to episode of hypotension earlier (7) Hypotension: Code(s): I95.9 - Hypotension, unspecified Status: Acute Assessment and Plan: rapid called 09/03 due to hypotension and low urine output patient given IV fluid bolus followed by continuous fluids BP now in normal range. Monitor Subjective Date/time seen: 09/05/25 Patient seen and examined. On calling her name she opens her eyes and looks worse examiner. She does try to follow some commands with her hands and trying to open her mouth for exam but does not answer any question but grimaces and moans. She moves all 4 extremities but appears very weak Afebrile Interval history: Tiesha Stock is a 75 year old female with a past medical history of HTN, HLP, anemia, DVT not on anticoagulation, rheumatoid arthritis, diastolic dysfunction who presents to the hospital for right knee pain and swelling. Also reporting fevers at home. She states that she is no longer able to walk at home due to the pain and swelling. Review of Systems Review of Systems: ROS unobtainable: Yes unobtainable due to medical condition and unobtainable due to mental status Exam Narrative: Gen -laying in bed in no distress, frail old female HEENT - normocephalic. Atraumatic. Neck - neck was supple. No dominant adenopathy, thyromegaly or masses. 2+ carotid upstrokes without bruits. Chest - lungs are clear to auscultation bilaterally. No wheezes or crackles. CV - heart was regular rate and rhythm. S1-S2. Abd - abdomen was soft. Nontender. Nondistended. Positive bowel sounds. Ext -swelling and pain to right knee right knee does not appear red or more warm than left. Left knee has a scar from past surgery. No clubbing, cyanosis or edema. 2+ DP pulses bilaterally. Neuro - opens eyes to calling her name, moves hands and legs spontaneously, tries to follow commands by squeezing hand with both hands. Grimaces add and close her eyes tightly flu and does not allow pupillary exam. Tries to open her mouth for exam, unable to test orientation as she does not answer questions. Psych -unable to assess Skin - warm and dry. No rashes noted. Objective Data Vital Signs Vital Signs: Vital Signs - 24 hr 09/04/25 10:43 09/04/25 11:32 09/04/25 12:00 Temperature 37.1 C Pulse Rate 78 84 Respiratory Rate 25 H Blood Pressure 122/60 114/71 Pulse Oximetry 100 100 Oxygen Delivery Room Air Room Air 09/04/25 12:00 09/04/25 12:30 09/04/25 14:00 Temperature Pulse Rate 82 87 Respiratory Rate Blood Pressure Pulse Oximetry 96 Oxygen Delivery Room Air 09/04/25 16:00 09/04/25 16:00 09/04/25 18:00 Temperature 36.6 C Pulse Rate 85 85 83 Respiratory Rate 22 H Blood Pressure 122/65 Pulse Oximetry 99 Oxygen Delivery 09/04/25 20:00 09/04/25 20:00 09/04/25 20:00 Temperature 37.2 C Pulse Rate 85 82 Respiratory Rate 23 H Blood Pressure 109/76 Pulse Oximetry 99 99 Oxygen Delivery Room Air 09/04/25 22:00 09/05/25 00:00 09/05/25 00:00 Temperature 36.8 C Pulse Rate 81 89 Respiratory Rate 27 H Blood Pressure 139/78 Pulse Oximetry 99 99 Oxygen Delivery Room Air 09/05/25 00:00 09/05/25 02:00 09/05/25 04:00 Temperature Pulse Rate 86 81 Respiratory Rate Blood Pressure Pulse Oximetry 100 Oxygen Delivery Room Air 09/05/25 04:00 09/05/25 04:00 09/05/25 06:00 Temperature 37.7 C H Pulse Rate 80 82 88 Respiratory Rate 26 H Blood Pressure 137/80 Pulse Oximetry 100 Oxygen Delivery 09/05/25 08:00 09/05/25 08:00 09/05/25 08:00 Temperature 36.8 C Pulse Rate 82 81 80 Respiratory Rate 18 20 Blood Pressure 120/64 Pulse Oximetry 100 100 Oxygen Delivery Room Air 09/05/25 08:08 Temperature Pulse Rate 81 Respiratory Rate Blood Pressure Pulse Oximetry Oxygen Delivery Intake/Output Intake/Output: Intake & Output 09/02/25 09/03/25 09/04/25 09/05/25 23:59 23:59 23:59 23:59 Intake Total 648.3 1170 1780.0 100 Output Total 300 098 572 9109 Balance 348.3 870 830.0 -900 Meds/Results Medications: Active Medications Generic Name Dose Route Start Last Admin Trade Name Freq PRN Reason Stop Dose Admin Aspirin 81 mg 09/03/25 09:00 09/05/25 08:07 Aspirin 81 Mg Enteric Tablet PO Not Given QAM MIROSLAVA Bisacodyl 10 mg 09/02/25 14:24 Bisacodyl 5 Mg Tablet Ec PO QAM PRN Constipation Clopidogrel Bisulfate 75 mg 09/05/25 09:00 09/05/25 08:07 Clopidogrel Bisulfate 75 Mg Tablet PO Not Given QAM MIROSLAVA Dextrose 12.5 gm 09/04/25 13:02 09/04/25 17:30 Dextrose 50% 25 Gm/50 Ml Syringe IV PUSH 12.5 gm PRN PRN Administration Hypoglycemia Protocol Ferrous Sulfate 325 mg 09/02/25 17:00 09/05/25 08:07 Ferrous Sulfate 325 Mg Tablet PO Not Given BIDWM MIROSLAVA Glucagon 1 mg 09/04/25 13:02 Glucagon For Inj 1 Mg Vial IM PRN PRN Hypoglycemia Protocol Glucose 15 gm 09/04/25 13:02 Glucose Oral Gel 15 Gm Of Glucse In 37.5 Gm Tube PO PRN PRN Hypoglycemia Protocol Heparin Sodium (Beef Lung) 50 units 09/02/25 09:00 09/05/25 08:08 Heparin Flush 50 Units/5 Ml Syringe IV PUSH Not Given QAM MIORSLAVA Heparin Sodium (Beef Lung) 50 units 09/02/25 06:33 09/03/25 07:22 Heparin Flush 50 Units/5 Ml Syringe IV PUSH 50 units PRN PRN Administration after intermittent infusion Heparin Sodium (Beef Lung) 50 units 09/02/25 06:33 09/03/25 07:34 Heparin Flush 50 Units/5 Ml Syringe IV PUSH 50 units PRN PRN Administration after blood draws Heparin Sodium (Porcine) 500 units 09/02/25 06:33 Heparin Sodium Lock Flush 500 Units/5 Ml Syringe IV PUSH PRN PRN see comments below Hydrochlorothiazide 12.5 mg 09/03/25 09:00 09/05/25 08:08 Hydrochlorothiazide 12.5 Mg Capsule PO Not Given DAILY MIROSLAVA Cefepime HCl 2 gm/ Sodium 50 mls @ 100 mls/hr 09/02/25 15:00 09/05/25 03:35 Chloride IVPB Infused Q12H MIROSLAVA Infusion Clindamycin Phosphate 900 mg in 50 mls @ 50 mls/hr 09/02/25 14:00 09/05/25 07:00 Cleocin 900 Mg/D5w 50 Ml IVPB Infused Q8H MIROSLAVA Infusion Dextrose 1,000 mls @ 100 mls/hr 09/04/25 13:02 Dextrose 5% 1,000 Ml IVPB PRN PRN Hypoglycemia Protocol Dextrose/Sodium Chloride 1,000 mls @ 75 mls/hr 09/04/25 17:30 09/05/25 08:10 Dextrose 5% Sodium Chloride 0.9% IV CONT 75 mls/hr .[id number] MIROSLAVA Administration Metoprolol Succinate 25 mg 09/03/25 09:00 09/05/25 08:08 Metoprolol Succinate Ext Rel 25 Mg Tabcr PO Not Given QAM MIROSLAVA Pantoprazole Sodium 40 mg 09/03/25 09:00 09/05/25 08:08 Pantoprazole 40 Mg Tablet PO Not Given DAILY MIROSLAVA Polyethylene Glycol 17 gm 09/03/25 09:00 09/05/25 08:08 Polyethylene Glycol 3350 17 Gm Powd.Pack PO Not Given DAILY MIROSLAVA Pregabalin 50 mg 09/02/25 17:00 Pregabalin (*Crx) 50 Mg Capsule PO BID PRN NERVE PAIN Sodium Chloride 10 ml 09/02/25 14:00 09/05/25 05:43 Central Line Flush IV PUSH 10 ml Q8HR MIROSLAVA Administration Tramadol HCl 50 mg 09/02/25 14:24 09/03/25 04:15 Tramadol Hcl (*Crx) 50 Mg Tablet PO 50 mg Q12H PRN Administration Pain 4-6 Radiology Results: ITS Impressions Knee X-Ray 09/01/25 20:50 IMPRESSION: No acute fracture or dislocation. Severe degenerative changes. Large suprapatellar joint effusion. Wrist X-Ray 09/01/25 21:04 IMPRESSION: Extensive erosive changes. Chest X-Ray 09/03/25 15:08 Impression: Mild CHF Head CT 09/04/25 10:55 IMPRESSION: 1. Unchanged small old lacunar infarct at the anterior limb of the right internal capsule. No acute intracranial process. 2. Stable appearance of age-related changes including mild diffuse volume loss and mild to moderate scattered white matter hypoattenuation consistent with chronic small vessel ischemic disease. Venous Doppler Study 09/04/25 19:50 IMPRESSION: There was no sonographic evidence of deep vein thrombosis in the left lower extremity. Labs Labs: Laboratory Results - last 24 hr 09/04/25 09/04/25 09/04/25 08:51 10:46 12:34 WBC 8.3 RBC 2.83 L Hgb 8.8 L Hct 28.2 L MCV 99.6 MCH 31.1 MCHC 31.2 L RDW 15.7 H Plt Count 332 MPV 9.3 Immature Gran % (Auto) Not Reportable Neut % (Auto) Not Reportable Lymph % (Auto) Not Reportable Mckenzie % (Auto) Not Reportable Eos % (Auto) Not Reportable Baso % (Auto) Not Reportable Lymph # (Auto) Not Reportable Mckenzie # (Auto) Not Reportable Eos # (Auto) Not Reportable Baso # (Auto) Not Reportable Abs Immat Gran (auto) Not Reportable Absolute Neuts (auto) Not Reportable Absolute Nucleated RBC Not Reportable Total Counted 100 Neutrophils % (Manual) 65 Band Neutrophils % 16 H Lymphocytes % (Manual) 7.0 L Monocytes % (Manual) 2 L Eosinophils % (Manual) 5 H Basophils % (Manual) 1 Metamyelocytes % 4 Nucleated RBC % Not Reportable Abs Neuts (Manual) 6.72 H Abs Lymphs (Manual) 0.58 L Abs Monocytes (Manual) 0.16 Absolute Eos (Manual) 0.41 Abs Basophils (Manual) 0.08 Platelet Estimate Adequate Hypochromasia Anisocytosis 1+ Macrocytosis Occasional Target Cells Schistocytes None seen Puncture Site Right radial ABG pH 7.412 ABG pCO2 35.2 ABG pO2 86.4 ABG PO2/FiO2 Ratio 4.11 ABG HCO3 21.9 L ABG O2 Saturation 96.7 ABG O2 Content 13.5 L ABG Base Excess -2.3 A-a Gradient 21.2 Oxyhemoglobin 95.8 Total Hemoglobin 9.9 L O2 Delivery Device Room air O2 Liters/Min Not Reportable FiO2 21 Sodium Potassium Chloride Carbon Dioxide Anion Gap BUN Creatinine Estim Creat Clear Calc Estimated GFR Glucose POC Capillary Glucose 78 Calcium Total Bilirubin AST ALT Alkaline Phosphatase Total Protein Albumin Triglycerides Cholesterol LDL Cholesterol Direct HDL Direct Urine Opiates Screen Urine Methadone Screen Ur Barbiturates Screen Ur Phencyclidine Scrn Ur Amphetamine Screen U Benzodiazepines Scrn Urine Cocaine Screen U Cannabinoids Screen Influenza A (RT-PCR) Influenza B (RT-PCR) RSV (RT-PCR) SARS-CoV-2 RNA (RT-PCR) 10/16/25 10/16/25 10/16/25 12:47 17:24 17:53 WBC RBC Hgb Hct MCV MCH MCHC RDW Plt Count MPV Immature Gran % (Auto) Neut % (Auto) Lymph % (Auto) Mckenzie % (Auto) Eos % (Auto) Baso % (Auto) Lymph # (Auto) Mckenzie # (Auto) Eos # (Auto) Baso # (Auto) Abs Immat Gran (auto) Absolute Neuts (auto) Absolute Nucleated RBC Total Counted Neutrophils % (Manual) Band Neutrophils % Lymphocytes % (Manual) Monocytes % (Manual) Eosinophils % (Manual) Basophils % (Manual) Metamyelocytes % Nucleated RBC % Abs Neuts (Manual) Abs Lymphs (Manual) Abs Monocytes (Manual) Absolute Eos (Manual) Abs Basophils (Manual) Platelet Estimate Hypochromasia Anisocytosis Macrocytosis Target Cells Schistocytes Puncture Site ABG pH ABG pCO2 ABG pO2 ABG PO2/FiO2 Ratio ABG HCO3 ABG O2 Saturation ABG O2 Content ABG Base Excess A-a Gradient Oxyhemoglobin Total Hemoglobin O2 Delivery Device O2 Liters/Min FiO2 Sodium Potassium Chloride Carbon Dioxide Anion Gap BUN Creatinine Estim Creat Clear Calc Estimated GFR Glucose POC Capillary Glucose 69 146 H Calcium Total Bilirubin AST ALT Alkaline Phosphatase Total Protein Albumin Triglycerides Cholesterol LDL Cholesterol Direct HDL Direct Urine Opiates Screen Negative Urine Methadone Screen Negative Ur Barbiturates Screen Negative Ur Phencyclidine Scrn Negative Ur Amphetamine Screen Negative U Benzodiazepines Scrn Negative Urine Cocaine Screen Negative U Cannabinoids Screen Negative Influenza A (RT-PCR) Negative Influenza B (RT-PCR) Negative RSV (RT-PCR) Negative SARS-CoV-2 RNA (RT-PCR) Negative 09/05/25 09/05/25 00:42 05:27 WBC 8.4 RBC 2.85 L Hgb 8.9 L Hct 28.1 L MCV 98.6 MCH 31.2 MCHC 31.7 L RDW 15.6 H Plt Count 332 MPV 8.9 Immature Gran % (Auto) Not Reportable Neut % (Auto) Not Reportable Lymph % (Auto) Not Reportable Mckenzie % (Auto) Not Reportable Eos % (Auto) Not Reportable Baso % (Auto) Not Reportable Lymph # (Auto) Not Reportable Mckenzie # (Auto) Not Reportable Eos # (Auto) Not Reportable Baso # (Auto) Not Reportable Abs Immat Gran (auto) Not Reportable Absolute Neuts (auto) Not Reportable Absolute Nucleated RBC Not Reportable Total Counted 100 Neutrophils % (Manual) 53 Band Neutrophils % 31 H Lymphocytes % (Manual) 8 L Monocytes % (Manual) 1 L Eosinophils % (Manual) 7 H Basophils % (Manual) Metamyelocytes % Nucleated RBC % Not Reportable Abs Neuts (Manual) 7.05 H Abs Lymphs (Manual) 0.67 L Abs Monocytes (Manual) 0.08 L Absolute Eos (Manual) 0.58 H Abs Basophils (Manual) Platelet Estimate Adequate Hypochromasia 1+ Anisocytosis 1+ Macrocytosis Target Cells Occasional Schistocytes None seen Puncture Site ABG pH ABG pCO2 ABG pO2 ABG PO2/FiO2 Ratio ABG HCO3 ABG O2 Saturation ABG O2 Content ABG Base Excess A-a Gradient Oxyhemoglobin Total Hemoglobin O2 Delivery Device O2 Liters/Min FiO2 Sodium 134 L Potassium 3.6 Chloride 106 Carbon Dioxide 25 Anion Gap 3 L BUN 20 H Creatinine 0.70 Estim Creat Clear Calc 54 Estimated GFR > 60 Glucose 123 H POC Capillary Glucose 113 H Calcium 7.7 L Total Bilirubin 0.4 AST 25 ALT 11 Alkaline Phosphatase 88 Total Protein 6.3 Albumin 2.3 L Triglycerides 130 Cholesterol 98 LDL Cholesterol Direct 57 HDL Direct 9 Urine Opiates Screen Urine Methadone Screen Ur Barbiturates Screen Ur Phencyclidine Scrn Ur Amphetamine Screen U Benzodiazepines Scrn Urine Cocaine Screen U Cannabinoids Screen Influenza A (RT-PCR) Influenza B (RT-PCR) RSV (RT-PCR) SARS-CoV-2 RNA (RT-PCR) Quality VTE Prophylaxis VTE prophylaxis: mechanical ordered and pharmacologic ordered
[2025-09-05] MEDS: KCL 20 MEQ/D5/0.45% SOD CHL 1,000 ML 75 ML IV CONT ×2 (10:11→23:33)
[2025-09-05] MEDS: ENOXAPARIN 40 MG/0.4 ML SYRINGE SUB-Q (10:12)
--- NOTE | 2025-09-05 11:15 | PCNFU ---
Nutrition Follow-Up Complete: Severe Protein Calorie Malnutrition as related to protein-energy intake with increased protein-energy needs in setting of chronic disease as evidenced by minimal oral intake for > 1-2 months; significant weight loss of 16% (30 ibs) in 2--3months; severe subcutaneous fat loss (orbital fat pads) and severe muscle wasting (temporalis, clavicle) Goal: Meet estimated nutritional needs. Patient has limited progress towards goal. We will continue current goal. Pt current nutrition is NPO. Nutrition recommendation: Jevity 1.5 at 20 ml/hr advance by 10 ml q 4 hours to goal rate of 50 ml/hr Last recorded weight is 63.7 kg, down from 67.25 kg on admit. Bowel Motility: Last reported BM 09/05 Labs Reviewed:Glu 123, Na 134, Hct 28.1, Hgb 18.9, BUN 20 Meds Noted: Miralax, Lovenox, Protonix. Skin: WNL Additional Notes: Patient has hx of PEG in January 2024. Currently NPO. Spoke with Technical Writer today. Tube feeding recommendations: Jevity 1.5 at 20 ml/hr advance by 10 ml q 4 hours to goal rate of 50 ml/hr. Total nutrition: 1650 kcal/70 gm protein/836 ml water. Flush 100 ml q 4 hours. Meeting 98% kcal needs at 25 kcal/kg and 86% protein needs at 1.2 gm/kg. Agree with diet orders. Will monitor weight, labs, skin, diet orders, meds every Monday and Monday.
[2025-09-05 11:16] LABS: Ammonia < 9 umol/L (9-30)
--- NOTE | 2025-09-05 11:22 | PCOTNOTE ---
Per Dr Hernandez, pt is not medically appropriate for therapy today. He would like for pt to be checked on tomorrow (09/06) and if still not medically appropriate then ok to d/c order and they will re-order once pt is appropriate for therapy.
[2025-09-05 11:52] LABS: Thyroid Stimulating Hormone Reflex 2.370 uIU/mL (0.465-4.68)
[2025-09-06] VITALS (9 sets, daily range): BP systolic 116–137; BP diastolic 68–79; PULSE 69–84; RESP 18–26; TEMP 36.8–37.1; O2SAT 98–100
[2025-09-06] MEDS: CEFEPIME 2 GM in SODIUM CHLORIDE 0.9% IV 50 ML 100 ML IVPB ×2 (03:23→16:27)
[2025-09-06] MEDS: CENTRAL LINE FLUSH 10 ML IV PUSH ×3 (04:37→22:27)
[2025-09-06 04:47] LABS: Hematocrit 26.7 % (37.0-47.0); Hemoglobin 8.5 g/dL (12.0-15.0); Mean Corpuscular HGB Conc 31.8 g/dl (32-36); Mean Corpuscular Hemoglobin 30.8 pg (26-34); Mean Corpuscular Volume 96.7 fl (80-100); Platelet Count Result 334 k/mm3 (150-375); Red Blood Count 2.76 M/mm3 (4.2-5.4); White Blood Count 9.3 K/mm3 (4.5-10.0)
[2025-09-06 05:06] LABS: Alanine Aminotransferase 10 U/L (6-35); Albumin Level 2.2 g/dL (3.5-5.1); Alkaline Phosphatase 82 U/L (38-126); Anion Gap 3 mmol/L (4-12); Aspartate Amino Transferase 19 U/L (14-36); Bilirubin,Total 0.5 mg/dL (0.2-1.3); Blood Urea Nitrogen 13 mg/dL (7-17); Calcium 7.4 mg/dL (8.4-10.2); Carbon Dioxide 26 mmol/L (22-30); Chloride 102 mmol/L (98-107); Estimated CRCL calculation 58 ml/min; Estimated Glomerular Filt Rate > 60; Glucose 131 mg/dL (65-110); Magnesium 1.3 mg/dL (1.6-2.3); Potassium 3.9 mmol/L (3.4-5.0); Sodium 131 mmol/L (137-145); Total Protein 6.1 g/dL (6.3-8.2)
[2025-09-06] MEDS: CLINDAMYCIN 900 MG/D5W 50 ML 900 MG/50 ML PIGGYBACK 50 MG IVPB ×3 (06:09→22:26)
--- NOTE | 2025-09-06 07:42 | PCPTNOTE ---
The patient treatment was not able to be completed on 09/05/2025 due to transferring to IMU on 09/04/2025 following code stroke. Will resume PT when medically able.
--- NOTE | 2025-09-06 08:31 | P.PNIM_ITS ---
Progress Note: A&P Assessment and Plan (1) Altered mental status: Code(s): R41.82 - Altered mental status, unspecified Status: Acute Assessment and Plan: 09/04 nurse reported patient had altered mental status today, unable to wake up, does not follow commands, not answering questions, appeared to have facial drooping code stroke was called s/p Head CT showed old infarcts Brain MRI ordered and pending s/p CXR 09/03 without acute findings. Normal TSH, and ammonia covid/flu/RSV negative UDS negative venous dopplers of BUE and LLE neg See all medications that can cause sedation were held 09/06 exam as above. Improvement in mental status. Monitor ? CVA MRI pending (2) Osteoarthritis of right knee: Code(s): M17.11 - Unilateral primary osteoarthritis, right knee Status: Acute Assessment and Plan: * Patient has a longstanding history of chronic right knee pain and swelling he, similar presentation in November and March of 2025 * She had arthrocentesis done in the ER. Synovial fluid suggest inflammatory fluid Cultures are negative till now * CRP 24, ESR 140 * Currently on cefepime and clindamycin * Patient evaluated by Orthopedics no further plans for intervention at this time * Recommends beginning prednisone - however patient is already taking 40mg of prednisone daily * Will discuss with Ortho regarding possible alternatives such as Celebrex * No surgical intervention for washout planned at this time * Continue cefepime, clindamycin phosphate * Synovial fluid - no growth to date (3) Rheumatoid arthritis: Code(s): M06.9 - Rheumatoid arthritis, unspecified Status: Acute Assessment and Plan: * See above (4) Urinary tract infection: Code(s): N39.0 - Urinary tract infection, site not specified Status: Acute Assessment and Plan: * UA: 1+ leukocyte esterase, 6-10 WBC, many squamous epithelial cells, 1+ bacteria * UC negative * Currently on cefepime for possible septic arthritis which should cover (5) Severe protein-calorie malnutrition: Code(s): E43 - Unspecified severe protein-calorie malnutrition Status: Acute Assessment and Plan: * Dietitian consulted, appreciate further recommendations * Reviews the patient had a PEG tube in the past * Consult speech for swallow evaluation (6) Hypertension: Qualifiers: Hypertension type: primary hypertension Qualified Code(s): I10 - Essential (primary) hypertension Code(s): I10 - Essential (primary) hypertension Status: Acute Assessment and Plan: Will hold antihypertensives due to episode of hypotension earlier (7) Hypotension: Code(s): I95.9 - Hypotension, unspecified Status: Acute Assessment and Plan: rapid called 09/03 due to hypotension and low urine output patient given IV fluid bolus followed by continuous fluids BP now in normal range. Monitor Plan DVT prophylaxis -Lovenox Nutrition -consult speech for swallow evaluation Code Status - Full Code Subjective Date/time seen: 09/06/25 Patient is lot more awake today and answering questions. She is slow in answering though. Appears weak. She denies any pain except the pain in her right knee. She also denies any shortness of breath chest pain cough abdominal pain nausea vomiting. Limited review of system was obtainable. She does not feel hungry or thirsty. She has not been eating. Yesterday attempts were made to place NG tube patient was not cooperative and kept on fighting the nursing staff. He is afebrile. Vital Signs is stable. Urine output is good. She is on IV fluids Interval history: Tiesha Stock is a 75 year old female with a past medical history of HTN, HLP, anemia, DVT not on anticoagulation, rheumatoid arthritis, diastolic dysfunction who presents to the hospital for right knee pain and swelling. Also reporting fevers at home. She states that she is no longer able to walk at home due to the pain and swelling. Review of Systems Review of Systems: All systems reviewed & are unremarkable except as noted in HPI and below (HPI) Exam Narrative: Gen -laying in bed in no distress, frail old female HEENT - normocephalic. Atraumatic. Neck - neck was supple. No dominant adenopathy, thyromegaly or masses. Chest - lungs are clear to auscultation bilaterally. No wheezes or crackles. CV - heart was regular rate and rhythm. S1-S2. Abd - abdomen was soft. Nontender. Nondistended. Positive bowel sounds. Ext -swelling and pain to right knee right knee does not appear red or more warm than left. Left knee has a scar from past surgery. No clubbing, cyanosis or edema. 2+ DP pulses bilaterally. Neuro -be much more awake than yesterday. Awake alert answer some questions. Follows commands with all 4 extremity. Overall very weak. Does not answer orientation questions. Psych -flat speech and affect. S Skin - warm and dry. No rashes noted. Objective Data Vital Signs Vital Signs: Vital Signs - 24 hr 09/05/25 10:00 09/05/25 12:00 09/05/25 12:00 Temperature 36.8 C Pulse Rate 78 84 96 Respiratory Rate 18 Blood Pressure 138/67 Pulse Oximetry 100 Oxygen Delivery 09/05/25 13:59 09/05/25 16:00 09/05/25 16:00 Temperature 36.8 C Pulse Rate 79 81 77 Respiratory Rate 14 Blood Pressure 136/67 Pulse Oximetry 93 Oxygen Delivery 09/05/25 18:00 09/05/25 20:00 09/05/25 20:00 Temperature 37.1 C Pulse Rate 78 77 Respiratory Rate 16 Blood Pressure 141/74 H Pulse Oximetry 98 Oxygen Delivery Room Air 09/05/25 22:00 09/05/25 23:40 09/06/25 00:00 Temperature 37.1 C Pulse Rate 73 72 Respiratory Rate 26 H Blood Pressure 137/78 Pulse Oximetry 100 Oxygen Delivery Room Air 09/06/25 00:00 09/06/25 02:00 09/06/25 04:00 Temperature Pulse Rate 70 72 Respiratory Rate Blood Pressure Pulse Oximetry Oxygen Delivery Room Air 09/06/25 04:00 09/06/25 04:00 09/06/25 06:00 Temperature 36.9 C Pulse Rate 71 69 78 Respiratory Rate 25 H Blood Pressure 137/79 Pulse Oximetry 98 Oxygen Delivery Intake/Output Intake/Output: Intake & Output 09/03/25 09/04/25 09/05/25 09/06/25 23:59 23:59 23:59 23:59 Intake Total 1170 1780.0 1402.5 50 Output Total 845 695 0238 850 Balance 870 830.0 -497.5 -800 Meds/Results Medications: Active Medications Generic Name Dose Route Start Last Admin Trade Name Freq PRN Reason Stop Dose Admin Aspirin 81 mg 09/03/25 09:00 09/05/25 08:07 Aspirin 81 Mg Enteric Tablet PO Not Given QAM MIROSLAVA Bisacodyl 10 mg 09/02/25 14:24 Bisacodyl 5 Mg Tablet Ec PO QAM PRN Constipation Clopidogrel Bisulfate 75 mg 09/05/25 09:00 09/05/25 08:07 Clopidogrel Bisulfate 75 Mg Tablet PO Not Given QAM MIROSLAVA Dextrose 12.5 gm 09/04/25 13:02 09/04/25 17:30 Dextrose 50% 25 Gm/50 Ml Syringe IV PUSH 12.5 gm PRN PRN Administration Hypoglycemia Protocol Enoxaparin Sodium 40 mg 09/05/25 10:05 09/05/25 10:12 Enoxaparin 40 Mg/0.4 Ml Syringe SUB-Q 40 mg DAILY MIROSLAVA Administration Ferrous Sulfate 325 mg 09/02/25 17:00 09/05/25 08:07 Ferrous Sulfate 325 Mg Tablet PO Not Given On Hold: 09/05/25 09:29 BIDWM MIROSLAVA Glucagon 1 mg 09/04/25 13:02 Glucagon For Inj 1 Mg Vial IM PRN PRN Hypoglycemia Protocol Glucose 15 gm 09/04/25 13:02 Glucose Oral Gel 15 Gm Of Glucse In 37.5 Gm Tube PO PRN PRN Hypoglycemia Protocol Heparin Sodium (Beef Lung) 50 units 09/02/25 09:00 09/05/25 08:08 Heparin Flush 50 Units/5 Ml Syringe IV PUSH Not Given QAM MIROSLAVA Heparin Sodium (Beef Lung) 50 units 09/02/25 06:33 09/03/25 07:22 Heparin Flush 50 Units/5 Ml Syringe IV PUSH 50 units PRN PRN Administration after intermittent infusion Heparin Sodium (Beef Lung) 50 units 09/02/25 06:33 09/06/25 04:38 Heparin Flush 50 Units/5 Ml Syringe IV PUSH 50 units PRN PRN Administration after blood draws Heparin Sodium (Porcine) 500 units 09/02/25 06:33 Heparin Sodium Lock Flush 500 Units/5 Ml Syringe IV PUSH PRN PRN see comments below Hydrochlorothiazide 12.5 mg 09/03/25 09:00 09/05/25 08:08 Hydrochlorothiazide 12.5 Mg Capsule PO Not Given On Hold: 09/05/25 09:29 DAILY MIROSLAVA Cefepime HCl 2 gm/ Sodium 50 mls @ 100 mls/hr 09/02/25 15:00 09/06/25 04:00 Chloride IVPB Infused Q12H MIROSLAVA Infusion Clindamycin Phosphate 900 mg in 50 mls @ 50 mls/hr 09/02/25 14:00 09/06/25 06:09 Cleocin 900 Mg/D5w 50 Ml IVPB 50 mls/hr Q8H MIROSLAVA Administration Dextrose 1,000 mls @ 100 mls/hr 09/04/25 13:02 Dextrose 5% 1,000 Ml IVPB PRN PRN Hypoglycemia Protocol Potassium Chloride/Dextrose/Sod Cl 1,000 mls @ 75 mls/hr 09/05/25 09:45 09/05/25 23:33 Kcl 20 Meq/D5/0.45% Sod Chl IV CONT 75 mls/hr .[id number] MIROSLAVA Administration Metoprolol Succinate 25 mg 09/03/25 09:00 09/05/25 08:08 Metoprolol Succinate Ext Rel 25 Mg Tabcr PO Not Given On Hold: 09/05/25 09:29 QAM MIROSLAVA Pantoprazole Sodium 40 mg 09/03/25 09:00 09/05/25 08:08 Pantoprazole 40 Mg Tablet PO Not Given DAILY [facility] Polyethylene Glycol 17 gm 09/03/25 09:00 09/05/25 08:08 Polyethylene Glycol 3350 17 Gm Powd.Pack PO Not Given DAILY [facility] Pregabalin 50 mg 09/02/25 17:00 Pregabalin (*Crx) 50 Mg Capsule PO On Hold: 09/05/25 09:29 BID PRN NERVE PAIN Sodium Chloride 10 ml 09/02/25 14:00 09/06/25 04:37 Central Line Flush IV PUSH 10 ml Q8HR MIROSLAVA Administration Tramadol HCl 50 mg 09/02/25 14:24 09/03/25 04:15 Tramadol Hcl (*Crx) 50 Mg Tablet PO 50 mg On Hold: 09/05/25 09:29 Q12H PRN Administration Pain 4-6 Radiology Results: ITS Impressions Knee X-Ray 09/01/25 20:50 IMPRESSION: No acute fracture or dislocation. Severe degenerative changes. Large suprapatellar joint effusion. Wrist X-Ray 09/01/25 21:04 IMPRESSION: Extensive erosive changes. Chest X-Ray 09/03/25 15:08 Impression: Mild CHF Head CT 09/04/25 10:55 IMPRESSION: 1. Unchanged small old lacunar infarct at the anterior limb of the right internal capsule. No acute intracranial process. 2. Stable appearance of age-related changes including mild diffuse volume loss and mild to moderate scattered white matter hypoattenuation consistent with chronic small vessel ischemic disease. Venous Doppler Study 09/04/25 19:50 IMPRESSION: There was no sonographic evidence of deep vein thrombosis in the left lower extremity. Labs Labs: Laboratory Results - last 24 hr 09/05/25 09/05/25 09/05/25 11:01 11:50 18:11 WBC RBC Hgb Hct MCV MCH MCHC RDW Plt Count MPV Sodium Potassium Chloride Carbon Dioxide Anion Gap BUN Creatinine Estim Creat Clear Calc Estimated GFR Glucose POC Capillary Glucose 128 H 110 H Calcium Magnesium Total Bilirubin AST ALT Alkaline Phosphatase Ammonia < 9 L Total Protein Albumin TSH (Reflex) 2.370 09/06/25 09/06/25 09/06/25 00:38 04:42 06:10 WBC 9.3 RBC 2.76 L Hgb 8.5 L Hct 26.7 L MCV 96.7 MCH 30.8 MCHC 31.8 L RDW 15.5 H Plt Count 334 MPV 9.0 Sodium 131 L Potassium 3.9 Chloride 102 Carbon Dioxide 26 Anion Gap 3 L BUN 13 D Creatinine 0.65 L Estim Creat Clear Calc 58 Estimated GFR > 60 Glucose 131 H POC Capillary Glucose 112 H 117 H Calcium 7.4 L Magnesium 1.3 L Total Bilirubin 0.5 AST 19 ALT 10 Alkaline Phosphatase 82 Ammonia Total Protein 6.1 L Albumin 2.2 L TSH (Reflex) Quality VTE Prophylaxis VTE prophylaxis: mechanical ordered and pharmacologic ordered
[2025-09-06] MEDS: CLOPIDOGREL BISULFATE 75 MG TABLET PO (13:36)
[2025-09-06] MEDS: PANTOPRAZOLE 40 MG TABLET PO (13:36)
[2025-09-06] MEDS: ASPIRIN 81 MG ENTERIC TABLET PO (13:36)
[2025-09-06] MEDS: ENOXAPARIN 40 MG/0.4 ML SYRINGE SUB-Q (13:36)
--- NOTE | 2025-09-06 14:12 | PCSTNOTE ---
Please refer to the Bedside Swallow Evaluation in the EMR. Please note, silent aspiration cannot be ruled out at bedside. This 75 year old female patient was evaluated at bedside to ensure swallowing safety during oral intake. The pt was admitted to [facility] on 09/02 due to RLL swelling and pain. Before the BSE was completed, the pt was NPO for ~3 days due to AMS. Per DERRICK Avila, on 09/03 the pt was unresponsive. The RN at the time reported patient had AMS, was unable to wake up, was not following commands or answering questions and appeared to have facial drooping. Code stroke was called. Head CT showed old infarcts. CVA MRI pending. An oral motor exam was completed. The pt demonstrates appropriate range of mobility and strength for oral intake but is notably weak. The pt is missing one tooth. During the OME, the patient was able to follow simple directions and respond verbally to questions regarding swallowing. She demonstrates a weak, quiet vocal quality at this time and delayed response time to questions, but is more alert and oriented this date. Trials of thin liquid (water), puree (pudding), and mixed consistency (fruit cocktail) were administered at bedside via spoon and straw. The pt demonstrated increased fatigue during the mastication of the mixed consistency. Due to this, trials of mixed consistency were discontinued and solids were not attempted this date. Throughout all trials of different consistencies, the pt demonstrated no s/s of aspiration. The pt?s vocal quality did not appear to be wet/gurgly, but the pt was very quiet and had a weak vocal quality despite encouragement. After all PO trials the pt did not cough/throat clear. Oral transit was timely. No oral residue observed. Laryngeal elevation was adequate and timely for all swallows. Please note that silent aspiration cannot be ruled out at bedside. Given the results of this assessment, it is recommended this pt receive an oral diet of minced and moist (IDDSI Level 5) and thin liquids (IDDSI Level 1) until the pt does not fatigue as easily during mastication and completes a repeat BSE. It is additionally recommended that the pt received 1:1 supervision during meals, is encouraged to only take SMALL bites/sips, slow down the pace of oral intake, and sit upright during meals. At this time, no further ST is warranted. When the patient demonstrates more strength and less fatigability, it is recommended that a repeat BSE is completed for the potential of a diet upgrade. Dr. Hernandez and DERRICK Avila were notified of BSE results and recommendations. Thank you for this referral.
--- NOTE | 2025-09-06 18:03 | PC.NURSE ---
This patient, Tiesha Stock, was transferred to [facility] on 09/06/25 at 1804. Personal belongings sent with patient. Report given to DERRICK Luis. Appropriate documentation sent with patient. Patient resting in bed and voiced no complaints or concerns at this time. Tyrel Vidales RN
[2025-09-07] MEDS: CEFEPIME 2 GM in SODIUM CHLORIDE 0.9% IV 50 ML 100 ML IVPB ×2 (02:56→15:02)
[2025-09-07] MEDS: CLINDAMYCIN 900 MG/D5W 50 ML 900 MG/50 ML PIGGYBACK 50 MG IVPB ×3 (05:28→20:45)
[2025-09-07] MEDS: CENTRAL LINE FLUSH 10 ML IV PUSH ×3 (05:28→20:45)
[2025-09-07 05:45] LABS: Hematocrit 26.2 % (37.0-47.0); Hemoglobin 8.5 g/dL (12.0-15.0); Mean Corpuscular HGB Conc 32.4 g/dl (32-36); Mean Corpuscular Hemoglobin 31.3 pg (26-34); Mean Corpuscular Volume 96.3 fl (80-100); Platelet Count Result 351 k/mm3 (150-375); Red Blood Count 2.72 M/mm3 (4.2-5.4); White Blood Count 10.5 K/mm3 (4.5-10.0)
[2025-09-07 06:00] VITALS: BP 135/62; PULSE 77; RESP 18; TEMP 36.6; O2SAT 100
[2025-09-07 06:04] LABS: Alanine Aminotransferase 10 U/L (6-35); Albumin Level 2.3 g/dL (3.5-5.1); Alkaline Phosphatase 74 U/L (38-126); Anion Gap 3 mmol/L (4-12); Aspartate Amino Transferase 26 U/L (14-36); Bilirubin,Total 0.6 mg/dL (0.2-1.3); Blood Urea Nitrogen 13 mg/dL (7-17); Calcium 7.4 mg/dL (8.4-10.2); Carbon Dioxide 27 mmol/L (22-30); Chloride 101 mmol/L (98-107); Estimated CRCL calculation 59 ml/min; Estimated Glomerular Filt Rate > 60; Glucose 93 mg/dL (65-110); Magnesium 1.2 mg/dL (1.6-2.3); Potassium 3.5 mmol/L (3.4-5.0); Sodium 131 mmol/L (137-145); Total Protein 6.2 g/dL (6.3-8.2)
--- NOTE | 2025-09-07 06:53 | P.PNIM_ITS ---
Progress Note: A&P Assessment and Plan (1) Altered mental status: Code(s): R41.82 - Altered mental status, unspecified Status: Acute Assessment and Plan: 09/04 nurse reported patient had altered mental status today, unable to wake up, does not follow commands, not answering questions, appeared to have facial drooping code stroke was called s/p Head CT showed old infarcts Brain MRI ordered and pending - nurse called radiology and this will be completed today 09/07 s/p CXR 09/03 without acute findings. Normal TSH, and ammonia covid/flu/RSV negative UDS negative venous dopplers of BUE and LLE neg medications that can cause sedation were held ? CVA MRI pending patient more alert today, able to answer some orientation questions (2) Osteoarthritis of right knee: Code(s): M17.11 - Unilateral primary osteoarthritis, right knee Status: Acute Assessment and Plan: * Patient has a longstanding history of chronic right knee pain and swelling he, similar presentation in November and March of 2025 * She had arthrocentesis done in the ER. Synovial fluid suggest inflammatory fluid Cultures are negative till now * CRP 24, ESR 140 * Currently on cefepime and clindamycin * Patient evaluated by Orthopedics no further plans for intervention at this time * Recommends beginning prednisone - however patient is already taking 40mg of prednisone daily * Will discuss with Ortho regarding possible alternatives such as Celebrex * No surgical intervention for washout planned at this time * Continue cefepime, clindamycin phosphate to complete 7 days of treatment * Synovial fluid - no growth to date (3) Rheumatoid arthritis: Code(s): M06.9 - Rheumatoid arthritis, unspecified Status: Acute Assessment and Plan: * See above (4) Urinary tract infection: Code(s): N39.0 - Urinary tract infection, site not specified Status: Acute Assessment and Plan: * UA: 1+ leukocyte esterase, 6-10 WBC, many squamous epithelial cells, 1+ bacteria * UC negative * Currently on cefepime for possible septic arthritis which should cover (5) Severe protein-calorie malnutrition: Code(s): E43 - Unspecified severe protein-calorie malnutrition Status: Acute Assessment and Plan: * Dietitian consulted, appreciate further recommendations * Reviews the patient had a PEG tube in the past * Consult speech for swallow evaluation * started on minced/moist diet with regular liquids * add Ensure Plus TID with meals * consider PPN if patient is not eating more than 50% of diet by tomorrow (6) Hypertension: Qualifiers: Hypertension type: primary hypertension Qualified Code(s): I10 - Essential (primary) hypertension Code(s): I10 - Essential (primary) hypertension Status: Acute Assessment and Plan: Will hold antihypertensives due to episode of hypotension earlier (7) Hypotension: Code(s): I95.9 - Hypotension, unspecified Status: Acute Assessment and Plan: rapid called 09/03 due to hypotension and low urine output patient given IV fluid bolus followed by continuous fluids BP now in normal range. Monitor Subjective Date/time seen: 09/07/25 06:53 Interval history: Patient seen for a routine follow up visit. Patient lying in bed, in no signs of distress. Patient is awake when I walked in the room. Patient was able to tell me her name, her 's 1st name and that Jacqueline is the president. Patient was unable to answer where she is or what year it is. Patient was able to follow commands with all 4 extremities. Patient reported pain in her right knee. Patient was started on a minced and moist diet with regular liquids after being evaluated by speech therapy. Patient was just started on this diet, I will see how much he eats in the next 24 hours. Order for ensure plus t.i.d. with meals placed. Consider PPN if patient is not meeting nutritional goals. Patient to have MRI done today. Review of Systems Review of Systems: ROS unobtainable: Yes unobtainable due to medical condition and unobtainable due to mental status Exam Narrative: Gen -laying in bed in no distress, frail old female HEENT - normocephalic. Atraumatic. Neck - neck was supple. No dominant adenopathy, thyromegaly or masses. Chest - lungs are clear to auscultation bilaterally. No wheezes or crackles. CV - heart was regular rate and rhythm. S1-S2. Abd - abdomen was soft. Nontender. Nondistended. Positive bowel sounds. Ext -swelling and pain to right knee right knee does not appear red or more warm than left. Left knee has a scar from past surgery. No clubbing, cyanosis or edema. 2+ DP pulses bilaterally. Neuro -be much more awake than yesterday. Awake alert answer some questions. Follows commands with all 4 extremity. Told me her name and the president is Jacqueline. Did not answer location or year when asked. Psych -flat speech and affect. S Skin - warm and dry. No rashes noted. Objective Data Vital Signs Vital Signs: Vital Signs - 24 hr 09/06/25 07:26 09/06/25 08:00 09/06/25 08:00 Temperature Pulse Rate 82 75 Respiratory Rate 22 H 23 H Blood Pressure 127/69 Pulse Oximetry 100 98 100 Oxygen Delivery Room Air 09/06/25 12:00 09/06/25 12:00 09/06/25 16:00 Temperature 98.2 F Pulse Rate 73 84 Respiratory Rate 24 H 20 Blood Pressure 136/68 123/68 Pulse Oximetry 100 100 98 Oxygen Delivery Room Air 09/06/25 20:00 09/06/25 22:15 Temperature 98.8 F Pulse Rate 82 Respiratory Rate 18 Blood Pressure 116/74 Pulse Oximetry 100 Oxygen Delivery Room Air Intake/Output Intake/Output: Intake & Output 09/04/25 09/05/25 09/06/25 09/07/25 23:59 23:59 23:59 23:59 Intake Total 1780.0 1402.5 1600 Output Total 950 1900 1825 Balance 830.0 -497.5 -225 Meds/Results Medications: Active Medications Generic Name Dose Route Start Last Admin Trade Name Freq PRN Reason Stop Dose Admin Aspirin 81 mg 09/03/25 09:00 09/06/25 13:36 Aspirin 81 Mg Enteric Tablet PO 81 mg QAM MIROSLAVA Administration Bisacodyl 10 mg 09/02/25 14:24 Bisacodyl 5 Mg Tablet Ec PO QAM PRN Constipation Clopidogrel Bisulfate 75 mg 09/05/25 09:00 09/06/25 13:36 Clopidogrel Bisulfate 75 Mg Tablet PO 75 mg QAM MIROSLAVA Administration Dextrose 12.5 gm 09/04/25 13:02 09/04/25 17:30 Dextrose 50% 25 Gm/50 Ml Syringe IV PUSH 12.5 gm PRN PRN Administration Hypoglycemia Protocol Enoxaparin Sodium 40 mg 09/05/25 10:05 09/06/25 13:36 Enoxaparin 40 Mg/0.4 Ml Syringe SUB-Q 40 mg DAILY MIROSLAVA Administration Ferrous Sulfate 325 mg 09/02/25 17:00 09/05/25 08:07 Ferrous Sulfate 325 Mg Tablet PO Not Given On Hold: 09/05/25 09:29 BIDWM MIROSLAVA Glucagon 1 mg 09/04/25 13:02 Glucagon For Inj 1 Mg Vial IM PRN PRN Hypoglycemia Protocol Glucose 15 gm 09/04/25 13:02 Glucose Oral Gel 15 Gm Of Glucse In 37.5 Gm Tube PO PRN PRN Hypoglycemia Protocol Heparin Sodium (Beef Lung) 50 units 09/02/25 09:00 09/06/25 13:36 Heparin Flush 50 Units/5 Ml Syringe IV PUSH 50 units QAM MIROSLAVA Administration Heparin Sodium (Beef Lung) 50 units 09/02/25 06:33 09/03/25 07:22 Heparin Flush 50 Units/5 Ml Syringe IV PUSH 50 units PRN PRN Administration after intermittent infusion Heparin Sodium (Beef Lung) 50 units 09/02/25 06:33 09/06/25 04:38 Heparin Flush 50 Units/5 Ml Syringe IV PUSH 50 units PRN PRN Administration after blood draws Heparin Sodium (Porcine) 500 units 09/02/25 06:33 Heparin Sodium Lock Flush 500 Units/5 Ml Syringe IV PUSH PRN PRN see comments below Hydrochlorothiazide 12.5 mg 09/03/25 09:00 09/05/25 08:08 Hydrochlorothiazide 12.5 Mg Capsule PO Not Given On Hold: 09/05/25 09:29 DAILY MIROSLAVA Cefepime HCl 2 gm/ Sodium 50 mls @ 100 mls/hr 09/02/25 15:00 09/07/25 02:56 Chloride IVPB 100 mls/hr Q12H MIROSLAVA Administration Clindamycin Phosphate 900 mg in 50 mls @ 50 mls/hr 09/02/25 14:00 09/07/25 05:28 Cleocin 900 Mg/D5w 50 Ml IVPB 50 mls/hr Q8H MIROSLAVA Administration Dextrose 1,000 mls @ 100 mls/hr 09/04/25 13:02 Dextrose 5% 1,000 Ml IVPB PRN PRN Hypoglycemia Protocol Metoprolol Succinate 25 mg 09/03/25 09:00 09/05/25 08:08 Metoprolol Succinate Ext Rel 25 Mg Tabcr PO Not Given On Hold: 09/05/25 09:29 QAM MIROSLAVA Pantoprazole Sodium 40 mg 09/03/25 09:00 09/06/25 13:36 Pantoprazole 40 Mg Tablet PO 40 mg DAILY MIROSLAVA Administration Polyethylene Glycol 17 gm 09/03/25 09:00 09/06/25 13:36 Polyethylene Glycol 3350 17 Gm Powd.Pack PO 17 gm DAILY MIROSLAVA Administration Pregabalin 50 mg 09/02/25 17:00 Pregabalin (*Crx) 50 Mg Capsule PO On Hold: 09/05/25 09:29 BID PRN NERVE PAIN Sodium Chloride 10 ml 09/02/25 14:00 09/07/25 05:28 Central Line Flush IV PUSH 10 ml Q8HR MIROSLAVA Administration Tramadol HCl 50 mg 09/02/25 14:24 09/03/25 04:15 Tramadol Hcl (*Crx) 50 Mg Tablet PO 50 mg On Hold: 09/05/25 09:29 Q12H PRN Administration Pain 4-6 Radiology Results: ITS Impressions Knee X-Ray 09/01/25 20:50 IMPRESSION: No acute fracture or dislocation. Severe degenerative changes. Large suprapatellar joint effusion. Wrist X-Ray 09/01/25 21:04 IMPRESSION: Extensive erosive changes. Chest X-Ray 09/03/25 15:08 Impression: Mild CHF Head CT 09/04/25 10:55 IMPRESSION: 1. Unchanged small old lacunar infarct at the anterior limb of the right inter nal capsule. No acute intracranial process. 2. Stable appearance of age-related changes including mild diffuse volume loss and mild to moderate scattered white matter hypoattenuation consistent with chronic small vessel ischemic disease. Venous Doppler Study 09/04/25 19:50 IMPRESSION: There was no sonographic evidence of deep vein thrombosis in the left lower extremity. Labs Labs: Laboratory Results - last 24 hr 09/06/25 09/06/25 09/07/25 11:47 18:24 05:26 WBC 10.5 H RBC 2.72 L Hgb 8.5 L Hct 26.2 L MCV 96.3 MCH 31.3 MCHC 32.4 RDW 15.6 H Plt Count 351 MPV 9.1 Sodium 131 L Potassium 3.5 Chloride 101 Carbon Dioxide 27 Anion Gap 3 L BUN 13 Creatinine 0.63 L Estim Creat Clear Calc 59 Estimated GFR > 60 Glucose 93 POC Capillary Glucose 127 H 91 Calcium 7.4 L Magnesium 1.2 L Total Bilirubin 0.6 AST 26 ALT 10 Alkaline Phosphatase 74 Total Protein 6.2 L Albumin 2.3 L Quality VTE Prophylaxis VTE prophylaxis: mechanical ordered and pharmacologic ordered
[2025-09-07] MEDS: CLOPIDOGREL BISULFATE 75 MG TABLET PO (09:16)
[2025-09-07] MEDS: ASPIRIN 81 MG ENTERIC TABLET PO (09:17)
[2025-09-07] MEDS: ENOXAPARIN 40 MG/0.4 ML SYRINGE SUB-Q (09:17)
[2025-09-07] MEDS: PANTOPRAZOLE 40 MG TABLET PO (09:17)
[2025-09-07 13:53] VITALS: BP 112/67; PULSE 82; RESP 16; TEMP 36.8; O2SAT 100
[2025-09-07 22:00] VITALS: BP 122/61; PULSE 85; RESP 18; TEMP 36.7; O2SAT 98
--- NOTE | 2025-09-08 | ECHO_ITS ---
Patient Info Name: Tiesha Stock Age: 75 years : 1950 Gender: Female Ht: 65 in Wt: 139 lbs BSA: 1.71 m2 HR: 76 bpm BP: 115 / 65 mmHg Heart Rhythm: Sinus Rhythm Technical Quality: Good Exam Date: 09/08/2025 2:54 PM Patient Status: I Admit Date: 09/02/2025 Exam Type: CA echo doppler w bubble study Complete two-dimensional, color flow and Doppler transthoracic echocardiogram is performed with agitated saline. Staff Referring Physician: Michelle Vides Clinical Review Nurse: Heather Santoyo Attending Provider: Lien Anders DO Contrast/Agitated Saline Contrast/Ag. Saline: Agitated Saline Amount: 20.00 ml Administered By: Heather Santoyo Existing IV Access: Yes IV Access Condition: patent with no signs of infiltration Summary 1. Normal LV size and wall thickness; hyperdynamic LV systolic function, ejection fraction more than 70%. Grade 1 diastolic dysfunction. Normal RV size and systolic function. Normal biatrial size. No interatrial shunt on bubble study. Mild mitral annular calcification, no significant MR. Aortic valve appears mildly calcified, mild aortic stenosis, calculated YENI 2 cm2; maximum velocity 2.36 m/sec, mean gradient 11 mmHg. Mild tricuspid regurgitation, mild pulmonary hypertension, RVSP 40 mmHg. Mild aortic root calcification. No significant pericardial effusion. Left Ventricle Left ventricular chamber dimension is normal. There is no increased left ventricular wall thickness. The left ventricular diastolic function is grade I diastolic dysfunction. Right Ventricle Right ventricular chamber dimension is normal. Right ventricular systolic function is normal. Left Atria Left atrial chamber dimension is normal. Right Atria Right atrial chamber dimension is normal. Atrial Septum Intact interatrial septum visualized by agitated saline imaging. Aortic Valve There is mild aortic valve stenosis with a peak velocity of 236 cm/s, mean gradient of 11 mmHg, and aortic valve area of 2.0 cm2. There is mild aortic valve calcification. Pulmonic Valve The pulmonic valve is normal. Mitral Valve The mitral valve annulus is mildly calcified. Tricuspid Valve The tricuspid valve leaflets are normal. There is mild tricuspid valve regurgitation. Pericardium/Pleural The pericardium appears normal. Aorta The aortic root size at the sinus of Valsalva is normal. Left Ventricular Outflow Tract Name Value Normal LVOT 2D LVOT Diameter 2.0 cm LVOT Doppler LVOT Peak Velocity 149 cm/s LVOT Peak Gradient 9 mmHg LVOT Mean Gradient 4 mmHg LVOT VTI 23 cm LVOT VTI/AV VTI Ratio 0.6 LVOT Stroke Volume 73 ml LVOT CO 5.9 l/min LVOT CI 3.5 l/min/m2 Pulmonic Valve Name Value Normal RVOT Doppler RVOT Peak Velocity 84 cm/s RVOT Peak Gradient 3 mmHg PV Doppler PV Peak Velocity 137 cm/s PV Peak Gradient 7 mmHg Mitral Valve Name Value Normal MV Diastolic Function MV E Peak Velocity 78 cm/s MV A Peak Velocity 120 cm/s MV E/A 0.6 MV Decel Time (PW) 215 ms MV Annular TDI MV E/e' (Septal) 12.2 MV E/e' (Lateral) 9.3 MV E/e' (Average) 10.7 Tricuspid Valve Name Value Normal TV Regurgitation Doppler TR Peak Velocity 273 cm/s TR Peak Gradient 29 mmHg Estimated PAP/RSVP RA Pressure 10 mmHg <=5 PA Systolic Pressure 40 mmHg <36 RV Systolic Pressure 40 mmHg <36 TV Annular TDI TV Lateral Madelyn s' Velocity 16.5 cm/s >=9.5 Aorta Name Value Normal Ascending Aorta Ao Root Diameter (MM) 3.4 cm Ao Root Diam Index (MM) 2.0 cm/m2 Aortic Valve Name Value Normal AV Doppler AV Peak Velocity 236 cm/s AV Peak Gradient 22 mmHg AV Mean Gradient 11 mmHg AV VTI 37 cm AV Area (Cont Eq VTI) 2.0 cm2 >=3.0 AV Area (Cont Eq Thomas) 2.0 cm2 AV DI (Htomas) 0.63 AV Regurgitation 2D LVOT Area 3.2 cm2 Ventricles Name Value Normal LV Dimensions 2D/MM IVS Diastolic Thickness (2D) 0.9 cm 0.6-1.0 LVID Diastole (2D) 4.9 cm 3.8-5.2 LVIW Diastolic Thickness (2D) 0.9 cm 0.6-0.9 LVID Systole (2D) 3.3 cm 2.2-3.5 LVOT Diameter 2.0 cm LV Mass (2D Cubed) 160.06 g 67.00-162.00 LV Mass Index (2D Cubed) 94 g/m2 43-95 Relative Wall Thickness (2D) 0.38 <=0.42 LV Fractional Shortening/Ejection Fraction 2D/MM LV Fractional Shortening (2D) 34 % 27-45 LV EF (2D Teichholz) 62 % LV Diastolic Volume (4C MOD) 56 ml LV EF (4C MOD) 74 % LV Diastolic Volume (2C MOD) 63 ml LV EF (2C MOD) 70 % LV Diastolic Volume (BP MOD) 60 ml 46-106 LV Diastolic Volume Index (BP MOD) 35 ml/m2 29-61 LV Systolic Volume (BP MOD) 16 ml 14-42 LV Systolic Volume Index (BP MOD) 10 ml/m2 8-24 LV EF (BP MOD) 73 % 54-74 LV Diastolic Length (4C) 7.4 cm LV Systolic Length (4C) 6.0 cm LV Stroke Volume (4C MOD) 41 ml Atria Name Value Normal LA Dimensions LA Dimension (MM) 3.1 cm 2.7-3.8 LA Volume (4C A-L) 34 ml LA Volume (BP A-L) 37 ml RA Dimensions RA Systolic Major Henlawson Length (4C) 5.6 cm 2.2-2.8 RA Area (4C) 15.1 cm2 <=18.0 Report Signatures
[2025-09-08] MEDS: CEFEPIME 2 GM in SODIUM CHLORIDE 0.9% IV 50 ML 100 ML IVPB (03:56)
[2025-09-08] MEDS: CLINDAMYCIN 900 MG/D5W 50 ML 900 MG/50 ML PIGGYBACK 50 MG IVPB (05:13)
[2025-09-08] MEDS: CENTRAL LINE FLUSH 10 ML IV PUSH ×3 (05:13→21:01)
[2025-09-08 05:31] LABS: Hematocrit 24.9 % (37.0-47.0); Hemoglobin 7.9 g/dL (12.0-15.0); Immature Granulocyte Percent A 17.5 % (0-0.5); Lymphocytes Absolute Auto 3.63 K/mm3 (0.9-3.2); Mean Corpuscular HGB Conc 31.7 g/dl (32-36); Mean Corpuscular Hemoglobin 30.7 pg (26-34); Mean Corpuscular Volume 96.9 fl (80-100); Nucleated Red Blood Cells Absolute Auto 0.000 K/mm3 (0.0-0.012); Nucleated Red Blood Cells Perc 0.0 % (0.0-0.2); Platelet Count Result 343 k/mm3 (150-375); Red Blood Count 2.57 M/mm3 (4.2-5.4); White Blood Count 11.5 K/mm3 (4.5-10.0)
[2025-09-08 05:44] LABS: Alanine Aminotransferase 11 U/L (6-35); Albumin Level 2.2 g/dL (3.5-5.1); Alkaline Phosphatase 71 U/L (38-126); Anion Gap 4 mmol/L (4-12); Aspartate Amino Transferase 25 U/L (14-36); Bilirubin,Total 0.5 mg/dL (0.2-1.3); Blood Urea Nitrogen 16 mg/dL (7-17); Calcium 7.2 mg/dL (8.4-10.2); Carbon Dioxide 27 mmol/L (22-30); Chloride 100 mmol/L (98-107); Estimated CRCL calculation 56 ml/min; Estimated Glomerular Filt Rate > 60; Glucose 99 mg/dL (65-110); Magnesium 1.3 mg/dL (1.6-2.3); Potassium 3.3 mmol/L (3.4-5.0); Sodium 131 mmol/L (137-145); Total Protein 6.1 g/dL (6.3-8.2)
[2025-09-08 06:00] VITALS: BP 115/64; PULSE 76; RESP 18; TEMP 36.4; O2SAT 100
--- NOTE | 2025-09-08 07:15 | P.PNIM_ITS ---
Progress Note: A&P Assessment and Plan (1) Altered mental status: Code(s): R41.82 - Altered mental status, unspecified Status: Acute Assessment and Plan: 09/04 nurse reported patient had altered mental status today, unable to wake up, does not follow commands, not answering questions, appeared to have facial drooping code stroke was called s/p Head CT showed old infarcts Brain MRI ordered and pending - nurse called radiology and this will be completed today 09/07 s/p CXR 09/03 without acute findings. Normal TSH, and ammonia covid/flu/RSV negative UDS negative venous dopplers of BUE and LLE neg medications that can cause sedation were held Brain MRI showed Scattered acute infarcts in the deep white matter of the bilateral frontal and parietal lobes. Neurology consult placed telemetry ordered continue aspirin and plavix check lipid panel (2) Osteoarthritis of right knee: Code(s): M17.11 - Unilateral primary osteoarthritis, right knee Status: Acute Assessment and Plan: * Patient has a longstanding history of chronic right knee pain and swelling he, similar presentation in November and March of 2025 * She had arthrocentesis done in the ER. Synovial fluid suggest inflammatory fluid Cultures are negative till now * CRP 24, ESR 140 * Currently on cefepime and clindamycin * Patient evaluated by Orthopedics no further plans for intervention at this time * Recommends beginning prednisone - however patient is already taking 40mg of prednisone daily * Will discuss with Ortho regarding possible alternatives such as Celebrex * No surgical intervention for washout planned at this time * Continue cefepime, clindamycin phosphate to complete 7 days of treatment * Synovial fluid - no growth to date (3) Rheumatoid arthritis: Code(s): M06.9 - Rheumatoid arthritis, unspecified Status: Acute Assessment and Plan: * See above (4) Urinary tract infection: Code(s): N39.0 - Urinary tract infection, site not specified Status: Acute Assessment and Plan: * UA: 1+ leukocyte esterase, 6-10 WBC, many squamous epithelial cells, 1+ bacteria * UC negative * Currently on cefepime for possible septic arthritis which should cover (5) Severe protein-calorie malnutrition: Code(s): E43 - Unspecified severe protein-calorie malnutrition Status: Acute Assessment and Plan: * Dietitian consulted, appreciate further recommendations * Reviews the patient had a PEG tube in the past * Consult speech for swallow evaluation * started on minced/moist diet with regular liquids * add Ensure Plus TID with meals * consider PPN if patient is not eating more than 50% of diet by tomorrow (6) Hypertension: Qualifiers: Hypertension type: primary hypertension Qualified Code(s): I10 - Essential (primary) hypertension Code(s): I10 - Essential (primary) hypertension Status: Acute Assessment and Plan: Will hold antihypertensives due to episode of hypotension earlier (7) Hypotension: Code(s): I95.9 - Hypotension, unspecified Status: Acute Assessment and Plan: rapid called 09/03 due to hypotension and low urine output patient given IV fluid bolus followed by continuous fluids BP now in normal range. Monitor (8) Acute CVA (cerebrovascular accident): Code(s): I63.9 - Cerebral infarction, unspecified Status: Acute Assessment and Plan: Brain MRI shows Scattered acute infarcts in the deep white matter of the bilateral frontal and parietal lobes. continue aspirin and plavix check lipid panel telemetry ECHO ordered neurology consulted PT/OT/ST Subjective Date/time seen: 09/08/25 07:15 Interval history: Patient seen for a follow up visit. Patient lying in bed, in no acute distress. Patient more awake and talking more today. Oriented to person, place and time. Patient not oriented to situation. Patient reported pain in her right knee. Restart patient's Tramadol PRN. Monitor patients PO intake. Patient's MRI completed and shows Scattered acute infarcts in the deep white matter of the bilateral frontal and parietal lobes. Neurology consulted. Patient on aspirin, plavix. Llipid panel ordered. Telemetry ordered. Attempted to call patients to provide update and there was no answer. Review of Systems Review of Systems: ROS unobtainable: Yes unobtainable due to medical condition and unobtainable due to mental status Exam Narrative: Gen -laying in bed in no distress, frail old female HEENT - normocephalic. Atraumatic. Neck - neck was supple. No dominant adenopathy, thyromegaly or masses. Chest - lungs are clear to auscultation bilaterally. No wheezes or crackles. CV - heart was regular rate and rhythm. S1-S2. Abd - abdomen was soft. Nontender. Nondistended. Positive bowel sounds. Ext -swelling and pain to right knee right knee does not appear red or more warm than left. Left knee has a scar from past surgery. No clubbing, cyanosis or edema. 2+ DP pulses bilaterally. Neuro -be much more awake than yesterday. Awake alert answer some questions. Follows commands with all 4 extremity. Told me her name and the president is Trump. Did not answer location or year when asked. Psych -flat speech and affect. S Skin - warm and dry. No rashes noted. Objective Data Vital Signs Vital Signs: Vital Signs - 24 hr 09/07/25 09:20 09/07/25 13:53 09/07/25 20:00 Temperature 98.2 F Pulse Rate 82 Respiratory Rate 16 Blood Pressure 112/67 Pulse Oximetry 100 Oxygen Delivery Room Air Room Air 09/07/25 22:00 Temperature 98.0 F Pulse Rate 85 Respiratory Rate 18 Blood Pressure 122/61 Pulse Oximetry 98 Oxygen Delivery Intake/Output Intake/Output: Intake & Output 09/05/25 09/06/25 09/07/25 09/08/25 23:59 23:59 23:59 23:59 Intake Total 1402.5 1600 510 Output Total 1900 1825 1350 Balance -497.5 -225 -840 Meds/Results Medications: Active Medications Generic Name Dose Route Start Last Admin Trade Name Freq PRN Reason Stop Dose Admin Aspirin 81 mg 09/03/25 09:00 09/07/25 09:17 Aspirin 81 Mg Enteric Tablet PO 81 mg QAM MIROSLAVA Administration Bisacodyl 10 mg 09/02/25 14:24 Bisacodyl 5 Mg Tablet Ec PO QAM PRN Constipation Clopidogrel Bisulfate 75 mg 09/05/25 09:00 09/07/25 09:16 Clopidogrel Bisulfate 75 Mg Tablet PO 75 mg QAM MIROSLAVA Administration Dextrose 12.5 gm 09/04/25 13:02 09/04/25 17:30 Dextrose 50% 25 Gm/50 Ml Syringe IV PUSH 12.5 gm PRN PRN Administration Hypoglycemia Protocol Enoxaparin Sodium 40 mg 09/05/25 10:05 09/07/25 09:17 Enoxaparin 40 Mg/0.4 Ml Syringe SUB-Q 40 mg DAILY MIROSLAVA Administration Ferrous Sulfate 325 mg 09/02/25 17:00 09/05/25 08:07 Ferrous Sulfate 325 Mg Tablet PO Not Given On Hold: 09/05/25 09:29 BIDWM MIROSLAVA Glucagon 1 mg 09/04/25 13:02 Glucagon For Inj 1 Mg Vial IM PRN PRN Hypoglycemia Protocol Glucose 15 gm 09/04/25 13:02 Glucose Oral Gel 15 Gm Of Glucse In 37.5 Gm Tube PO PRN PRN Hypoglycemia Protocol Heparin Sodium (Beef Lung) 50 units 09/02/25 09:00 09/07/25 09:17 Heparin Flush 50 Units/5 Ml Syringe IV PUSH 50 units QAM MIROSLAVA Administration Heparin Sodium (Beef Lung) 50 units 09/02/25 06:33 09/03/25 07:22 Heparin Flush 50 Units/5 Ml Syringe IV PUSH 50 units PRN PRN Administration after intermittent infusion Heparin Sodium (Beef Lung) 50 units 09/02/25 06:33 09/06/25 04:38 Heparin Flush 50 Units/5 Ml Syringe IV PUSH 50 units PRN PRN Administration after blood draws Heparin Sodium (Porcine) 500 units 09/02/25 06:33 Heparin Sodium Lock Flush 500 Units/5 Ml Syringe IV PUSH PRN PRN see comments below Hydrochlorothiazide 12.5 mg 09/03/25 09:00 09/05/25 08:08 Hydrochlorothiazide 12.5 Mg Capsule PO Not Given On Hold: 09/05/25 09:29 DAILY MIROSLAVA Cefepime HCl 2 gm/ Sodium 50 mls @ 100 mls/hr 09/02/25 15:00 09/08/25 03:56 Chloride IVPB 100 mls/hr Q12H MIROSLAVA Administration Clindamycin Phosphate 900 mg in 50 mls @ 50 mls/hr 09/02/25 14:00 09/08/25 05:13 Cleocin 900 Mg/D5w 50 Ml IVPB 50 mls/hr Q8H MIROSLAVA Administration Dextrose 1,000 mls @ 100 mls/hr 09/04/25 13:02 Dextrose 5% 1,000 Ml IVPB PRN PRN Hypoglycemia Protocol Metoprolol Succinate 25 mg 09/03/25 09:00 09/05/25 08:08 Metoprolol Succinate Ext Rel 25 Mg Tabcr PO Not Given On Hold: 09/05/25 09:29 QAM MIROSLAVA Pantoprazole Sodium 40 mg 09/03/25 09:00 09/07/25 09:17 Pantoprazole 40 Mg Tablet PO 40 mg DAILY MIROSLAVA Administration Polyethylene Glycol 17 gm 09/03/25 09:00 09/07/25 09:17 Polyethylene Glycol 3350 17 Gm Powd.Pack PO 17 gm DAILY MIROSLAVA Administration Pregabalin 50 mg 09/02/25 17:00 Pregabalin (*Crx) 50 Mg Capsule PO On Hold: 09/05/25 09:29 BID PRN NERVE PAIN Sodium Chloride 10 ml 09/02/25 14:00 09/08/25 05:13 Central Line Flush IV PUSH 10 ml Q8HR MIROSLAVA Administration Tramadol HCl 50 mg 09/02/25 14:24 09/03/25 04:15 Tramadol Hcl (*Crx) 50 Mg Tablet PO 50 mg On Hold: 09/05/25 09:29 Q12H PRN Administration Pain 4-6 Radiology Results: ITS Impressions Knee X-Ray 09/01/25 20:50 IMPRESSION: No acute fracture or dislocation. Severe degenerative changes. Large suprapatellar joint effusion. Wrist X-Ray 09/01/25 21:04 IMPRESSION: Extensive erosive changes. Chest X-Ray 09/03/25 15:08 Impression: Mild CHF Head CT 09/04/25 10:55 IMPRESSION: 1. Unchanged small old lacunar infarct at the anterior limb of the right internal capsule. No acute intracranial process. 2. Stable appearance of age-related changes including mild diffuse volume loss and mild to moderate scattered white matter hypoattenuation consistent with chronic small vessel ischemic disease. Venous Doppler Study 09/04/25 19:50 IMPRESSION: There was no sonographic evidence of deep vein thrombosis in the left lower extremity. Labs Labs: Laboratory Results - last 24 hr 09/07/25 09/08/25 09/08/25 11:55 02:49 05:19 WBC 11.5 H RBC 2.57 L Hgb 7.9 L Hct 24.9 L MCV 96.9 MCH 30.7 MCHC 31.7 L RDW 15.9 H Plt Count 343 MPV 9.2 Immature Gran % (Auto) 17.5 H Neut % (Auto) 37.4 L Lymph % (Auto) 31.6 [place] % (Auto) 6.4 Eos % (Auto) 6.5 H Baso % (Auto) 0.6 Lymph # (Auto) 3.63 H [place] # (Auto) 0.7 H Eos # (Auto) 0.8 H Baso # (Auto) 0.1 Abs Immat Gran (auto) 2.01 H Absolute Neuts (auto) 4.3 Absolute Nucleated RBC 0.000 Nucleated RBC % 0.0 Sodium 131 L Potassium 3.3 L Chloride 100 Carbon Dioxide 27 Anion Gap 4 BUN 16 Creatinine 0.67 L Estim Creat Clear Calc 56 Estimated GFR > 60 Glucose 99 POC Capillary Glucose 94 91 Calcium 7.2 L Magnesium 1.3 L Total Bilirubin 0.5 AST 25 ALT 11 Alkaline Phosphatase 71 Total Protein 6.1 L Albumin 2.2 L 09/08/25 06:39 WBC RBC Hgb Hct MCV MCH MCHC RDW Plt Count MPV Immature Gran % (Auto) Neut % (Auto) Lymph % (Auto) [place] % (Auto) Eos % (Auto) Baso % (Auto) Lymph # (Auto) [place] # (Auto) Eos # (Auto) Baso # (Auto) Abs Immat Gran (auto) Absolute Neuts (auto) Absolute Nucleated RBC Nucleated RBC % Sodium Potassium Chloride Carbon Dioxide Anion Gap BUN Creatinine Estim Creat Clear Calc Estimated GFR Glucose POC Capillary Glucose 101 Calcium Magnesium Total Bilirubin AST ALT Alkaline Phosphatase Total Protein Albumin Quality VTE Prophylaxis VTE prophylaxis: mechanical ordered and pharmacologic ordered
[2025-09-08] MEDS: traMADol HCL (*CRX) 50 MG TABLET PO (09:11)
[2025-09-08] MEDS: CLOPIDOGREL BISULFATE 75 MG TABLET PO (09:11)
[2025-09-08] MEDS: PANTOPRAZOLE 40 MG TABLET PO (09:11)
[2025-09-08] MEDS: ASPIRIN 81 MG ENTERIC TABLET PO (09:11)
[2025-09-08] MEDS: ENOXAPARIN 40 MG/0.4 ML SYRINGE SUB-Q (09:11)
[2025-09-08 09:12] LABS: Cholesterol 91 mg/dL (0-200); HDL Direct 9 mg/dL; Triglycerides 96 mg/dL (<150)
--- NOTE | 2025-09-08 12:29 | PCNFU ---
Nutrition Follow-Up Complete: Severe Protein Calorie Malnutrition as related to protein-energy intake with increased protein-energy needs in setting of chronic disease as evidenced by minimal oral intake for > 1-2 months; significant weight loss of 16% (30 ibs) in 2--3months; severe subcutaneous fat loss (orbital fat pads) and severe muscle wasting (temporalis, clavicle) Meet estimated nutritional needs. - Slow progress with PO intake. Continue same goal Goal: Pt current nutrition is Minced & moist L5, regular diet, Ensure Plus HP TID (350 kcal, 20 g protein each). Nutrition recommendation: Continue with current nutrition care plan and orders. Parenteral nutrition likely not needed at this time as pt is able to take in more by mouth. Last recorded weight is 63.1 kg. Bowel Motility: +2 BMs 09/07 Labs Reviewed: Hgb .9, Hct 24.9, Alb 2.2, Na 131, K+ 3.3, Cre 0.67, Mag 1.3 Meds Noted: Miralax, protonix, lovenox Skin: No pressure injuries Additional Notes: Pt is slowly eating more and more alert. Ate 20% breakfast per charting. Continue current nutrition care plan and orders. Agree with orders. Will monitor weight, labs, skin, diet orders, meds every 3 days.
[2025-09-08 13:37] VITALS: BP 119/69; PULSE 81; RESP 16; TEMP 36.3; O2SAT 99
[2025-09-08] MEDS: CLINDAMYCIN HCL 150 MG CAP 450 MG PO ×2 (13:55→21:00)
[2025-09-08] MEDS: CEFDINIR 300 MG CAPSULE PO ×2 (13:55→21:00)
[2025-09-08] MEDS: ONDANSETRON INJ 4 MG/2 ML VIAL IV PUSH (13:55)
[2025-09-08 16:00] VITALS: PULSE 78
[2025-09-08 20:00] VITALS: PULSE 81
[2025-09-08 20:40] VITALS: BP 112/54; PULSE 80; RESP 18; TEMP 36.7; O2SAT 100
[2025-09-08] MEDS: MAGNESIUM SULF 2 GM/WATER 50ML 2 GM/50 ML BAG IVPB (20:58)
[2025-09-08] MEDS: POTASSIUM CHLORIDE 20 MEQ PACKET (FOR LIQUID) 40 MEQ PO (20:59)
[2025-09-09] VITALS (9 sets, daily range): BP systolic 114–133; BP diastolic 59–64; PULSE 73–80; RESP 18; TEMP 36.7–36.8; O2SAT 99–100; BMI 10.0
[2025-09-09] MEDS: CLINDAMYCIN HCL 150 MG CAP 450 MG PO ×3 (05:13→20:47)
[2025-09-09] MEDS: CENTRAL LINE FLUSH 10 ML IV PUSH ×3 (05:13→20:47)
[2025-09-09 05:31] LABS: Hematocrit 21.5 % (37.0-47.0); Mean Corpuscular HGB Conc 31.6 g/dl (32-36); Mean Corpuscular Hemoglobin 31.3 pg (26-34); Mean Corpuscular Volume 99.1 fl (80-100); Platelet Count Result 303 k/mm3 (150-375); Red Blood Count 2.17 M/mm3 (4.2-5.4); White Blood Count 12.3 K/mm3 (4.5-10.0)
[2025-09-09 05:33] LABS: Hemoglobin 6.8 g/dL (12.0-15.0)
[2025-09-09 05:57] LABS: Alanine Aminotransferase 11 U/L (6-35); Albumin Level 1.9 g/dL (3.5-5.1); Alkaline Phosphatase 61 U/L (38-126); Anion Gap 2 mmol/L (4-12); Aspartate Amino Transferase 33 U/L (14-36); Bilirubin,Total 0.3 mg/dL (0.2-1.3); Blood Urea Nitrogen 14 mg/dL (7-17); Calcium 6.4 mg/dL (8.4-10.2); Carbon Dioxide 25 mmol/L (22-30); Chloride 105 mmol/L (98-107); Estimated CRCL calculation 68 ml/min; Estimated Glomerular Filt Rate > 60; Glucose 88 mg/dL (65-110); Magnesium 1.7 mg/dL (1.6-2.3); Potassium 3.0 mmol/L (3.4-5.0); Sodium 132 mmol/L (137-145); Total Protein 5.2 g/dL (6.3-8.2)
--- NOTE | 2025-09-09 07:19 | PM.IMPN ---
Progress Note: A&P Assessment and Plan (1) Altered mental status: Code(s): R41.82 - Altered mental status, unspecified Status: Acute Assessment and Plan: 09/04 nurse reported patient had altered mental status today, unable to wake up, does not follow commands, not answering questions, appeared to have facial drooping code stroke was called - s/p Head CT showed old infarcts - s/p CXR 09/03 without acute findings. - Normal TSH, and ammonia - covid/flu/RSV negative - UDS negative - venous dopplers of BUE and LLE neg - medications that can cause sedation were held - Brain MRI 09/07- showed Scattered acute infarcts in the deep white matter of the bilateral frontal and parietal lobes. - Neurology consult placed - telemetry ordered - continue aspirin and plavix - lipid panel (2) Osteoarthritis of right knee: Code(s): M17.11 - Unilateral primary osteoarthritis, right knee Status: Acute Assessment and Plan: - Patient has a longstanding history of chronic right knee pain and swelling he, similar presentation in November and March of 2025 - She had arthrocentesis done in the ER. Synovial fluid suggest inflammatory fluid Cultures are negative till now - CRP 24, ESR 140 - Currently on cefepime and clindamycin - Patient evaluated by Orthopedics no further plans for intervention at this time, Recommends beginning prednisone - however patient is already taking 40mg of prednisone daily, - No surgical intervention for washout planned at this time, - Continue cefepime, clindamycin phosphate to complete 7 days of treatment - Synovial fluid - no growth to date (3) Rheumatoid arthritis: Code(s): M06.9 - Rheumatoid arthritis, unspecified Status: Acute Assessment and Plan: See above (4) Urinary tract infection: Code(s): N39.0 - Urinary tract infection, site not specified Status: Acute Assessment and Plan: UA: 1+ leukocyte esterase, 6-10 WBC, many squamous epithelial cells, 1+ bacteria UC negative Currently on cefepime for possible septic arthritis which should cover (5) Severe protein-calorie malnutrition: Code(s): E43 - Unspecified severe protein-calorie malnutrition Status: Acute Assessment and Plan: - Dietitian consulted, appreciate further recommendations - Reviews the patient had a PEG tube in the past - Consult speech for swallow evaluation - started on minced/moist diet with regular liquids - advanced today after tolerating regular foods today. - add Ensure Plus TID with meals (6) Hypertension: Qualifiers: Hypertension type: primary hypertension Qualified Code(s): I10 - Essential (primary) hypertension Code(s): I10 - Essential (primary) hypertension Status: Acute Assessment and Plan: - Will hold antihypertensives due to episode of hypotension earlier (7) Hypotension: Code(s): I95.9 - Hypotension, unspecified Status: Acute Assessment and Plan: - rapid called 09/03 due to hypotension and low urine output - patient given IV fluid bolus followed by continuous fluids - BP now in normal range. Monitor (8) Acute CVA (cerebrovascular accident): Code(s): I63.9 - Cerebral infarction, unspecified Status: Acute Assessment and Plan: Brain MRI shows Scattered acute infarcts in the deep white matter of the bilateral frontal and parietal lobes. continue aspirin and plavix check lipid panel telemetry ECHO neurology consulted PT/OT/ST (9) Anemia: Code(s): D64.9 - Anemia, unspecified Status: Acute Assessment and Plan: --> trend labs --> will transfuse 1 unit PRBC - however patient has Antibodies and blood will be here later today 09/09/25 -- will recheck labs in am. Plan diet - regular diet advanced today Code - full code disposition - will continue to treat and monitor closely, will work with case management on safe discharge plan Time Spent With Patient Time with patient: Greater than 35 minutes Subjective Date/time seen: 09/09/25 07:19 Interval history: Today patient is sitting up in bed, eating her breakfast. Patient shows no acute distress. Patient more awake and talking more today. Oriented to person, place and time. Patient not oriented to correct year. She does know she is in the Hospital. Patient reported pain in her right knee. Restart patient's Tramadol PRN yesterday, states it is hurting but better with pain medications. patient denies any chest pain, shortness of breath, headaches, or distress. Patient's MRI completed and shows Scattered acute infarcts in the deep white matter of the bilateral frontal and parietal lobes. Neurology consulted. Patient on aspirin, plavix. Telemetry ordered. patients hgb 6.8 today, orders to transfuse 1 unit PRBC, however patient has antiboides and awaiting PRBC to be delivered. Review of Systems Review of Systems: All systems reviewed & are unremarkable except as noted in HPI and below (HPI) ROS unobtainable: Yes unobtainable due to medical condition and unobtainable due to mental status Exam Narrative: Gen -laying in bed in no distress, frail old female HEENT - normocephalic. Atraumatic. Neck - neck was supple. No dominant adenopathy, thyromegaly or masses. Chest - lungs are clear to auscultation bilaterally. No wheezes or crackles. CV - heart was regular rate and rhythm. S1-S2. Abd - abdomen was soft. Nontender. Nondistended. Positive bowel sounds. Ext -swelling and pain to right knee right knee does not appear red or more warm than left. Left knee has a scar from past surgery. No clubbing, cyanosis or edema. 2+ DP pulses bilaterally. Neuro - much more awake than yesterday. Awake alert answers questions. Follows commands with all 4 extremity. Told me her name and the president is Jacqueline, knows she is in the hospital, does not answer correct year when asked. Psych -flat speech and affect. Skin - warm and dry. No rashes noted. Objective Data Vital Signs Vital Signs: Vital Signs - 24 hr 09/08/25 08:00 09/08/25 13:37 09/08/25 16:00 Temperature 97.4 F L Pulse Rate 81 78 Respiratory Rate 16 Blood Pressure 119/69 Pulse Oximetry 99 Oxygen Delivery Room Air 09/08/25 16:00 09/08/25 20:00 09/08/25 20:00 Temperature Pulse Rate 78 81 Respiratory Rate Blood Pressure Pulse Oximetry Oxygen Delivery Room Air 09/08/25 20:40 09/09/25 00:00 09/09/25 04:00 Temperature 98.1 F Pulse Rate 80 79 77 Respiratory Rate 18 Blood Pressure 112/54 L Pulse Oximetry 100 Oxygen Delivery Intake/Output Intake/Output: Intake & Output 09/06/25 09/07/25 09/08/25 09/09/25 23:59 23:59 23:59 23:59 Intake Total 5295 631 7712 Output Total 1829 1350 1200 Balance -225 -840 200 Meds/Results Medications: Active Medications Generic Name Dose Route Start Last Admin Trade Name Freq PRN Reason Stop Dose Admin Aspirin 81 mg 09/03/25 09:00 09/08/25 09:11 Aspirin 81 Mg Enteric Tablet PO 81 mg QAM MIROSLAVA Administration Bisacodyl 10 mg 09/02/25 14:24 Bisacodyl 5 Mg Tablet Ec PO QAM PRN Constipation Cefdinir 300 mg 09/08/25 12:00 09/08/25 21:00 Cefdinir 300 Mg Capsule PO 300 mg Q12HR MIROSLAVA Administration Clindamycin HCl 450 mg 09/08/25 14:00 09/09/25 05:13 Clindamycin Hcl 150 Mg Cap PO 450 mg Q8HR MIROSLAVA Administration Clopidogrel Bisulfate 75 mg 09/05/25 09:00 09/08/25 09:11 Clopidogrel Bisulfate 75 Mg Tablet PO 75 mg QAM MIROSLAVA Administration Dextrose 12.5 gm 09/04/25 13:02 09/04/25 17:30 Dextrose 50% 25 Gm/50 Ml Syringe IV PUSH 12.5 gm PRN PRN Administration Hypoglycemia Protocol Enoxaparin Sodium 40 mg 09/05/25 10:05 09/08/25 09:11 Enoxaparin 40 Mg/0.4 Ml Syringe SUB-Q 40 mg DAILY MIROSLAVA Administration Ferrous Sulfate 325 mg 09/02/25 17:00 09/05/25 08:07 Ferrous Sulfate 325 Mg Tablet PO Not Given On Hold: 09/05/25 09:29 BIDWM MIROSLAVA Glucagon 1 mg 09/04/25 13:02 Glucagon For Inj 1 Mg Vial IM PRN PRN Hypoglycemia Protocol Glucose 15 gm 09/04/25 13:02 Glucose Oral Gel 15 Gm Of Glucse In 37.5 Gm Tube PO PRN PRN Hypoglycemia Protocol Heparin Sodium (Beef Lung) 50 units 09/02/25 09:00 09/08/25 09:11 Heparin Flush 50 Units/5 Ml Syringe IV PUSH 50 units QAM MIROSLAVA Administration Heparin Sodium (Beef Lung) 50 units 09/02/25 06:33 09/03/25 07:22 Heparin Flush 50 Units/5 Ml Syringe IV PUSH 50 units PRN PRN Administration after intermittent infusion Heparin Sodium (Beef Lung) 50 units 09/02/25 06:33 09/06/25 04:38 Heparin Flush 50 Units/5 Ml Syringe IV PUSH 50 units PRN PRN Administration after blood draws Heparin Sodium (Porcine) 500 units 09/02/25 06:33 Heparin Sodium Lock Flush 500 Units/5 Ml Syringe IV PUSH PRN PRN see comments below Hydrochlorothiazide 12.5 mg 09/03/25 09:00 09/05/25 08:08 Hydrochlorothiazide 12.5 Mg Capsule PO Not Given On Hold: 09/05/25 09:29 DAILY MIROSLAVA Dextrose 1,000 mls @ 100 mls/hr 09/04/25 13:02 Dextrose 5% 1,000 Ml IVPB PRN PRN Hypoglycemia Protocol Sodium Chloride 250 mls @ 30 mls/hr 09/09/25 05:54 Normal Saline Iv IV CONT 09/09/25 14:13 .Q8H20M STA Metoprolol Succinate 25 mg 09/03/25 09:00 09/05/25 08:08 Metoprolol Succinate Ext Rel 25 Mg Tabcr PO Not Given On Hold: 09/05/25 09:29 QAM MIROSLAVA Ondansetron HCl 4 mg 09/08/25 13:30 09/08/25 13:55 Ondansetron Inj 4 Mg/2 Ml Vial IV PUSH 4 mg Q6H PRN Administration Nausea And Vomiting Pantoprazole Sodium 40 mg 09/03/25 09:00 09/08/25 09:11 Pantoprazole 40 Mg Tablet PO 40 mg DAILY MIROSLAVA Administration Perflutren Lipid Microsphere 0 ml 09/08/25 08:49 Perflutren Lipid Microspheres 1.5 Ml Vial Diluted To 10 Ml Total Volume IV PUSH 09/11/25 08:49 ONCE PRN adequate visualization Protocol Polyethylene Glycol 17 gm 09/03/25 09:00 09/08/25 09:11 Polyethylene Glycol 3350 17 Gm Powd.Pack PO 17 gm DAILY MIROSLAVA Administration Pregabalin 50 mg 09/02/25 17:00 Pregabalin (*Crx) 50 Mg Capsule PO On Hold: 09/05/25 09:29 BID PRN NERVE PAIN Sodium Chloride 10 ml 09/02/25 14:00 09/09/25 05:13 Central Line Flush IV PUSH 10 ml Q8HR MIROSLAVA Administration Tramadol HCl 50 mg 09/02/25 14:24 09/08/25 09:11 Tramadol Hcl (*Crx) 50 Mg Tablet PO 50 mg Q12H PRN Administration Pain 4-6 Radiology Results: ITS Impressions Knee X-Ray 09/01/25 20:50 IMPRESSION: No acute fracture or dislocation. Severe degenerative changes. Large suprapatellar joint effusion. Wrist X-Ray 09/01/25 21:04 IMPRESSION: Extensive erosive changes. Chest X-Ray 09/03/25 15:08 Impression: Mild CHF Head CT 09/04/25 10:55 IMPRESSION: 1. Unchanged small old lacunar infarct at the anterior limb of the right internal capsule. No acute intracranial process. 2. Stable appearance of age-related changes including mild diffuse volume loss and mild to moderate scattered white matter hypoattenuation consistent with chronic small vessel ischemic disease. Venous Doppler Study 09/04/25 19:50 IMPRESSION: There was no sonographic evidence of deep vein thrombosis in the left lower extremity. Brain MRI 09/08/25 07:32 IMPRESSION: 1. Scattered acute infarcts in the deep white matter of the bilateral frontal and parietal lobes. 2. Moderate nonspecific cerebral white matter disease and pontine disease, which likely represents chronic small vessel ischemic disease. Labs Labs: Laboratory Results - last 24 hr 09/08/25 09/08/25 09/08/25 05:19 08:20 17:15 WBC RBC Hgb Hct MCV MCH MCHC RDW Plt Count MPV Sodium Potassium Chloride Carbon Dioxide Anion Gap BUN Creatinine Estim Creat Clear Calc Estimated GFR Glucose POC Capillary Glucose 84 111 H Calcium Magnesium Total Bilirubin AST ALT Alkaline Phosphatase Total Protein Albumin Triglycerides 96 Cholesterol 91 LDL Cholesterol Direct 62 HDL Direct 9 Blood Type Enhanced Crossmatch 09/09/25 09/09/25 05:19 06:30 WBC 12.3 H RBC 2.17 L Hgb 6.8 L* Hct 21.5 L MCV 99.1 MCH 31.3 MCHC 31.6 L RDW 15.7 H Plt Count 303 MPV 9.2 Sodium 132 L Potassium 3.0 L Chloride 105 Carbon Dioxide 25 Anion Gap 2 L BUN 14 Creatinine 0.54 L Estim Creat Clear Calc 68 Estimated GFR > 60 Glucose 88 POC Capillary Glucose Calcium 6.4 L Magnesium 1.7 Total Bilirubin 0.3 AST 33 ALT 11 Alkaline Phosphatase 61 Total Protein 5.2 L Albumin 1.9 L Triglycerides Cholesterol LDL Cholesterol Direct HDL Direct Blood Type A Positive Enhanced Crossmatch See Detail Quality VTE Prophylaxis VTE prophylaxis: mechanical ordered and pharmacologic ordered
[2025-09-09] MEDS: CLOPIDOGREL BISULFATE 75 MG TABLET PO (08:46)
[2025-09-09] MEDS: ENOXAPARIN 40 MG/0.4 ML SYRINGE SUB-Q (08:47)
[2025-09-09] MEDS: ASPIRIN 81 MG ENTERIC TABLET PO (08:47)
[2025-09-09] MEDS: CEFDINIR 300 MG CAPSULE PO ×2 (08:47→20:47)
[2025-09-09] MEDS: PANTOPRAZOLE 40 MG TABLET PO (08:47)
--- NOTE | 2025-09-09 12:21 | WPDNEURCNPN ---
Assessment and Plan Assessment and plan (1) Altered mental status: Code(s): R41.82 - Altered mental status, unspecified Status: Acute (2) Rheumatoid arthritis: Code(s): M06.9 - Rheumatoid arthritis, unspecified Status: Acute Plan 1. Generalized weakness with no focal motor deficit, 2. Ongoing rheumatoid arthritis for which she is being treated and presented with a knee pain 3 multiple bilateral deep white matter his strokes on the basis of the small vessel disease but no major acute or chronic moderate-sized stroke representing small-vessel ischemic disease. She is receiving aspirin 81mg daily which can be continued as such in addition she has ongoing treatment for the connective tissue disorder with prednisone 5mg b.i.d.. No changes need to be made, particularly on the basis of the echocardiogram results If any further question arises please do not hesitate to contact me thank Consult date: 09/09/25 HPI: Tiesha Stock is a 75 year old female admitted to the hospital through the emergency room for the complaints of right knee pain in addition to the history of rheumatoid arthritis associated with swelling of right knee and temperature of 101? at home. Patient has been taking tramadol 50mg q.12 hours p.r.n., aspirin 81mg daily, hydrochlorothiazide 12.5mg daily, and prednisone 2.5mg p.o. daily, she is reportedly allergic to multiple medications as outlined, in the past she has ongoing history of DVT for which at present she is not on anticoagulation therapy, history of seizures in December 13 subsequent to her surgery, hypertension, rheumatoid arthritis, and protein malnutrition, has undergone percutaneous endoscopic gastrostomy in January of 2024, has history of total left knee replacement, Port-A-Cath in place and the left chest wall, never smoker by history, never alcohol intake, has had joint aspiration on September 02, 2025, at present has WBC 12.3 with hemoglobin 6.8, joint tap has been done with fluid being abnormal, rheumatoid factor in the past more than 120 with anti cyclic citrulline peptide more than 250, CT of the head only age-related diffuse volume loss and changes and small old lacunar infarct at the anterior limb of the right internal capsule, MRI documented acute infarct in the deep white matter of the bilateral frontal and parietal lobes with white matter disease of nonspecific nature, at present receiving aspirin 81mg daily with continuation of prednisone 5mg twice a day and Lyrica 50mg twice a day and tramadol on p.r.n. basis, neuro consult obtained for the changes in the mental status. Review of Systems Review of Systems: All systems reviewed & are unremarkable except as noted in HPI and below PMFSH Past Medical History Medical History DVT (deep venous thrombosis) No longer on anticoagulation Chronic blood loss anemia History of seizure (~11/2023) Following surgery for septic arthritis. Osteopenia Moderate protein malnutrition Diastolic dysfunction Echo 04/2024 demonstrated EF of 60 65%, mildly increased left ventricular wall thickness, grade 1 diastolic dysfunction, right ventricular function normal, atrial septum appears aneurysmal, moderate aortic valve calcification, mild mitral valve regurgitation, mild tricuspid valve regurgitation Occult blood in stools Hyperlipidemia Hypertension Rheumatoid arthritis Surgical History Surgical History History of colonoscopy (07/17/24) Internal hemorrhoids, diverticulosis Normal esophagogastroduodenoscopy (EGD) (07/17/24) PEG (percutaneous endoscopic gastrostomy) status Place at [facility] in January 2024 due to dysphagia, remains in place due to moderate to severe protein calorie malnutrition with approximately 50 lb weight loss since August 2023. History of total left knee replacement Port-A-Cath in place Left chest wall H/O right knee surgery (~11/2023) Washout due to septic arthritis November 2023 H/O: hysterectomy Family History Family History Father , black lung disease No problems noted. Mother , from [place] gangrene. No problems noted. Sibling Acute myocardial infarction Prednisolone adverse reaction Sibling No problems noted. Social History Social History Social History: Code status: DNR/DNI (per patient request) she states that she does not think that her would agree with this but this is her desire. 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 [employer] Gender identity (if verbalized by the patient): Male Spiritual care concerns: No Meds Home Medications and Allergies Home Medications ?Medication ?Instructions ?Recorded ?Confirmed ?Type polyethylene glycol 3350 17 17 g PO DAILY 07/09/24 09/02/25 History gram/dose oral powder (Miralax) metoprolol succinate 25 mg 25 mg PO QAM #60 tabs 07/22/24 09/02/25 Rx tablet,extended release 24 hr (Toprol XL) bisacodyl 5 mg tablet,delayed 10 mg (2 x 5 mg) PO QAM PRN 12/17/24 09/02/25 Rx release (Laxative (bisacodyl)) Constipation #30 tabs ferrous sulfate 325 mg (65 mg 325 mg PO BIDWM #60 tabs 12/17/24 09/02/25 Rx iron) tablet,delayed release tramadol 50 mg tablet 50 mg PO Q12H PRN pain 04/01/25 09/02/25 History aspirin 81 mg tablet 81 mg PO DAILY 05/15/25 09/02/25 History hydrochlorothiazide 12.5 mg capsule 12.5 mg PO DAILY 05/15/25 09/02/25 History prednisone 20 mg tablet 5 mg PO BID 05/15/25 09/02/25 History pantoprazole 40 mg tablet,delayed 40 mg PO DAILY 09/02/25 09/02/25 History release pregabalin 50 mg capsule 50 mg PO BID 09/02/25 09/02/25 History Allergies Allergy/AdvReac Type Severity Reaction Status Date / Time amlodipine Allergy Severe Hives Verified 09/02/25 07:53 banana Allergy Severe throat Verified 09/02/25 07:53 Itching latex Allergy Severe Redness of Verified 09/02/25 07:53 Skin, baker lisinopril Allergy Severe Difficulty Verified 09/02/25 07:53 Breathing Penicillins Allergy Severe Rash Verified 09/02/25 07:53 pseudoephedrine Allergy Severe Difficulty Verified 09/02/25 07:53 Breathing tetracycline Allergy Severe Difficulty Verified 09/02/25 07:53 Breathing tree nut Allergy Severe Other Verified 09/02/25 07:53 dextromethorphan Allergy Intermediate Rash Verified 09/02/25 07:53 prednisone Allergy Unknown Other Verified 09/02/25 07:53 acetaminophen AdvReac Intermediate Nausea and Verified 09/02/25 07:53 Vomiting aspirin AdvReac Intermediate Nausea and Verified 09/02/25 07:53 Vomiting vancomycin AdvReac Intermediate Other Verified 09/02/25 07:53 Sulfa (Sulfonamide AdvReac Mild Other Verified 09/02/25 07:53 Antibiotics) Vital Signs Vital Signs - 24 hr 09/08/25 13:37 09/08/25 16:00 09/08/25 16:00 Temperature 36.3 C L Pulse Rate 81 78 78 Respiratory Rate 16 Blood Pressure 119/69 Pulse Oximetry 99 Oxygen Delivery 09/08/25 20:00 09/08/25 20:00 09/08/25 20:40 Temperature 36.7 C Pulse Rate 81 80 Respiratory Rate 18 Blood Pressure 112/54 L Pulse Oximetry 100 Oxygen Delivery Room Air 09/09/25 00:00 09/09/25 04:00 09/09/25 06:00 Temperature 36.8 C Pulse Rate 79 77 73 Respiratory Rate 18 Blood Pressure 133/64 Pulse Oximetry 100 Oxygen Delivery 09/09/25 09:00 Temperature Pulse Rate Respiratory Rate Blood Pressure Pulse Oximetry Oxygen Delivery Room Air Exam Narrative: Revealed her to be awake alert in no acute distress, head normocephalic with no cranial bruits, neck supple with no meningeal signs no cervical bruit, heart regular, lungs clear with no rhonchi or crepitations, abdomen is soft nontender with normal bowel sounds, neurologically she is awake alert, follows the instructions fairly well, slow in responding but not dysphasic and not dysarthric, pupils round regular, feels the vision are full in all 4 quadrants, extraocular movements are full with no spontaneous nystagmus, facial sensation intact with symmetrical nasolabial fold, tongue without any fasciculation in the oral cavity, motor examination revealed her generally to be with decreased strength in upper and lower extremities with no specific involvement of the 1 or other upper lower extremity, but deep tendon reflexes sluggish, plantar responses are downgoing, there is no evidence of gross cerebellar deficit, Results Labs 09/09/25 05:19 09/09/25 05:19 Labs: Short CBC 09/09/25 Range/Units 05:19 WBC 12.3 H (4.5-10.0) K/mm3 Hgb 6.8 L* (12.0-15.0) g/dL Hct 21.5 L (37.0-47.0) % Plt Count 303 (150-375) k/mm3 BMP 09/09/25 05:19 Sodium 132 L Potassium 3.0 L Chloride 105 Carbon Dioxide 25 BUN 14 Creatinine 0.54 L Glucose 88 Calcium 6.4 L Liver Function 09/09/25 Range/Units 05:19 Total Bilirubin 0.3 (0.2-1.3) mg/dL AST 33 (14-36) U/L ALT 11 (6-35) U/L Alkaline Phosphatase 61 (38-126) U/L Albumin 1.9 L (3.5-5.1) g/dL
[2025-09-09] MEDS: POTASSIUM CHLORIDE 20 MEQ ER TABLET 40 MEQ PO (17:26)
[2025-09-10] VITALS (16 sets, daily range): BP systolic 114–147; BP diastolic 56–75; PULSE 61–98; RESP 16–18; TEMP 36.6–37.9; O2SAT 98–100
[2025-09-10] MEDS: CLINDAMYCIN HCL 150 MG CAP 450 MG PO ×3 (05:08→22:02)
[2025-09-10] MEDS: CENTRAL LINE FLUSH 10 ML IV PUSH ×3 (05:08→22:04)
[2025-09-10] MEDS: SODIUM CHLORIDE 0.9% IV 250 ML 30 ML IV CONT (05:08)
[2025-09-10 07:58] LABS: Hematocrit 27.9 % (37.0-47.0); Hemoglobin 9.0 g/dL (12.0-15.0); Immature Granulocyte Percent A 22.6 % (0-0.5); Lymphocytes Absolute Auto 5.73 K/mm3 (0.9-3.2); Mean Corpuscular HGB Conc 32.3 g/dl (32-36); Mean Corpuscular Hemoglobin 31.4 pg (26-34); Mean Corpuscular Volume 97.2 fl (80-100); Nucleated Red Blood Cells Absolute Auto 0.020 K/mm3 (0.0-0.012); Nucleated Red Blood Cells Perc 0.1 % (0.0-0.2); Platelet Count Result 400 k/mm3 (150-375); Red Blood Count 2.87 M/mm3 (4.2-5.4); White Blood Count 19.0 K/mm3 (4.5-10.0)
[2025-09-10 08:25] LABS: Schistocytes None Seen
[2025-09-10 08:26] LABS: Alanine Aminotransferase 13 U/L (6-35); Albumin Level 2.4 g/dL (3.5-5.1); Alkaline Phosphatase 79 U/L (38-126); Anion Gap 0 mmol/L (4-12); Anisocytosis 1+; Aspartate Amino Transferase 35 U/L (14-36); Bilirubin,Total 0.5 mg/dL (0.2-1.3); Blood Urea Nitrogen 20 mg/dL (7-17); Calcium 8.0 mg/dL (8.4-10.2); Carbon Dioxide 29 mmol/L (22-30); Chloride 102 mmol/L (98-107); Estimated CRCL calculation 52 ml/min; Estimated Glomerular Filt Rate > 60; Glucose 105 mg/dL (65-110); Hypochromasia 1+; Magnesium 1.8 mg/dL (1.6-2.3); Potassium 4.5 mmol/L (3.4-5.0); Sodium 131 mmol/L (137-145); Stomatocytes 1+; Total Protein 6.7 g/dL (6.3-8.2)
[2025-09-10] MEDS: CEFDINIR 300 MG CAPSULE PO (09:11)
[2025-09-10] MEDS: PANTOPRAZOLE 40 MG TABLET PO (09:12)
[2025-09-10] MEDS: ENOXAPARIN 40 MG/0.4 ML SYRINGE SUB-Q (09:12)
[2025-09-10] MEDS: CLOPIDOGREL BISULFATE 75 MG TABLET PO (09:12)
[2025-09-10] MEDS: ASPIRIN 81 MG ENTERIC TABLET PO (09:12)
--- NOTE | 2025-09-10 10:43 | PCNFU ---
Nutrition Follow-Up Complete: Severe Protein Calorie Malnutrition as related to protein-energy intake with increased protein-energy needs in setting of chronic disease as evidenced by minimal oral intake for > 1-2 months; significant weight loss of 16% (30 ibs) in 2--3months; severe subcutaneous fat loss (orbital fat pads) and severe muscle wasting (temporalis, clavicle) Goal: Meet estimated nutritional needs. Patient is progressing towards goal. We will continue current goal. Pt current nutrition is Regular with diet supplements. Last recorded weight is 68.1 kg, up from 67.25 kg on admit. Bowel Motility:Last reported BM 09/07 Labs Reviewed: BUN 20, Na 131, Hct 27.9, Hgb 9.0, Alb 2.4 Meds Noted: Protonix, Lovenox Skin: WNL Additional Notes: Patient diet order has been upgraded to a regular diet with speech recommendation on 09/09. Oral Intake is improving and feeding self. Diet supplements of Ensure Plus High Protein providing an additional 350 kcal and 20 gm protein. Agree with diet orders. Will monitor weight, labs, skin, diet orders, meds every 3 days.
--- NOTE | 2025-09-10 11:10 | P.PNIM_ITS ---
Progress Note: A&P Assessment and Plan (1) Altered mental status: Qualifiers: Altered mental status type: unspecified Qualified Code(s): R41.82 - Altered mental status, unspecified Code(s): R41.82 - Altered mental status, unspecified Status: Acute Assessment and Plan: -09/04 nurse reported patient had altered mental status today, unable to wake up, does not follow commands, not answering questions, appeared to have facial drooping code stroke was called s/p Head CT showed old infarcts - s/p CXR 09/03 without acute findings. - Normal TSH, and ammonia - covid/flu/RSV negative - UDS negative - venous dopplers of BUE and LLE neg - medications that can cause sedation were held - Brain MRI 09/07- showed Scattered acute infarcts in the deep white matter of the bilateral frontal and parietal lobes. - Neurology consult placed, appreciate recommendations. - telemetry ordered - continue Aspirin and Plavix - lipid panel 09/08/25: Cholesterol 91, LDL 62, HDL 9, and triglycerides 96. - A&Ox3 today. -WBC elevated at 19.0. UA, BCX2, Chest [id number], and Ortho consult for right knee. Change antibiotic from Cefdinir to Ceftriaxone 2 gram IVPB q 24. Continue Clindamycin 450 mg PO q 8 hr. (2) Osteoarthritis of right knee: Code(s): M17.11 - Unilateral primary osteoarthritis, right knee Status: Acute Assessment and Plan: - Patient has a longstanding history of chronic right knee pain and swelling he, similar presentation in November and March of 2025 - She had arthrocentesis done in the ER. Synovial fluid suggest inflammatory fluid Cultures are negative till now - CRP 24, ESR 140 - Patient evaluated by Orthopedics no further plans for intervention at this time, Recommends beginning prednisone - however patient is already taking 40mg of prednisone daily, - No surgical intervention for washout planned at this time, - Synovial fluid - no growth to date -09/10/25 ortho referral placed. -WBC elevated at 19.0. UA, BCX2, Chest [id number], and Ortho consult for right knee. Change antibiotic from Cefdinir to Ceftriaxone 2 gram IVPB q 24. Continue Clindamycin 450 mg PO q 8 hr. (3) Rheumatoid arthritis: Code(s): M06.9 - Rheumatoid arthritis, unspecified Status: Acute Assessment and Plan: * See above (4) Urinary tract infection: Code(s): N39.0 - Urinary tract infection, site not specified Status: Acute Assessment and Plan: * UA: 1+ leukocyte esterase, 6-10 WBC, many squamous epithelial cells, 1+ bacteria * UC negative. * WBC 19.0. Change antibiotic from Cefdinir to Ceftriaxone 2 gram IVPB q 24. Continue Clindamycin 450 mg PO q 8 hr. * Recheck UA. (5) Severe protein-calorie malnutrition: Code(s): E43 - Unspecified severe protein-calorie malnutrition Status: Acute Assessment and Plan: - Dietitian consulted, appreciate further recommendations - Reviews the patient had a PEG tube in the past - Consult speech for swallow evaluation - started on minced/moist diet with regular liquids - advanced today after tolerating regular foods today. - Ensure Plus TID with meals. (6) Hypertension: Qualifiers: Hypertension type: primary hypertension Qualified Code(s): I10 - Essential (primary) hypertension Code(s): I10 - Essential (primary) hypertension Status: Acute Assessment and Plan: - Will hold antihypertensives due to episode of hypotension earlier (7) Hypotension: Code(s): I95.9 - Hypotension, unspecified Status: Acute Assessment and Plan: - rapid called 09/03 due to hypotension and low urine output - patient given IV fluid bolus followed by continuous fluids - BP now in normal range. Monitor. (8) Acute CVA (cerebrovascular accident): Code(s): I63.9 - Cerebral infarction, unspecified Status: Acute Assessment and Plan: -Brain MRI shows Scattered acute infarcts in the deep white matter of the bilateral frontal and parietal lobes. -continue Aspirin and Plavix -lipid panel: Cholesterol 91, LDL 62, HDL 9, and triglycerides 96. -telemetry -ECHO: EF 70%, Grade 1 diastolic dysfunction -Neurology consulted, appreciate recommendations. -PT/OT/ST (9) Anemia: Code(s): D64.9 - Anemia, unspecified Status: Acute Assessment and Plan: -Received 1 unit PRBC on 09/09/25, patient has Antibodies. H&H was 6.8/21.5, H&H today is 9.0/27.9. -Trend labs. Subjective Date/time seen: 09/10/25 11:10 Interval history: Patient reports pain is an 8 in her right knee that she feels is worse with swelling and tenderness to touch. Patient reports pain in her other joints are a 7. Reports that she has been working with therapy but is unable to walk. Denies shortness of breath, nausea, or diarrhea. Review of Systems Review of Systems: All systems reviewed & are unremarkable except as noted in HPI and below Exam Const: General: uncomfortable Resp: Effort & Inspection: normal respiratory effort Auscultation: clear to auscultation bilaterally Cardio: Rate: regular rate Rhythm: regular rhythm GI: GI Palp: Yes Soft to palpation Auscultation: normal bowel sounds Neuro: Speech: normal speech Extrem: Other: Right knee 1+ edema, painful, does not appear red. Tender to touch. Psych: Thought process: Normal thought process present Thought content: Yes Normal thought content present Insight: Good insight present (Psych) Other: affect flat Objective Data Vital Signs Vital Signs: Vital Signs - 24 hr 09/09/25 12:06 09/09/25 14:00 09/09/25 16:05 Temperature 98.2 F Pulse Rate 76 75 76 Respiratory Rate 18 Blood Pressure 115/62 Pulse Oximetry 100 Oxygen Delivery 09/09/25 20:00 09/09/25 20:00 09/09/25 20:59 Temperature 98.0 F Pulse Rate 80 74 Respiratory Rate 18 Blood Pressure 114/59 L Pulse Oximetry 99 Oxygen Delivery Room Air 09/10/25 00:00 09/10/25 00:42 09/10/25 00:59 Temperature 98.3 F 98.3 F Pulse Rate 68 75 75 Respiratory Rate 16 18 Blood Pressure 122/61 116/56 L Pulse Oximetry 99 99 Oxygen Delivery 09/10/25 02:00 09/10/25 03:02 09/10/25 04:00 Temperature 98.6 F 98.1 F Pulse Rate 79 77 61 Respiratory Rate 16 18 Blood Pressure 116/58 L 114/56 L Pulse Oximetry 98 99 Oxygen Delivery 09/10/25 04:30 09/10/25 06:00 09/10/25 09:15 Temperature 98.2 F 97.9 F Pulse Rate 78 78 Respiratory Rate 18 16 Blood Pressure 122/63 118/61 Pulse Oximetry 99 99 Oxygen Delivery Room Air Intake/Output Intake/Output: Intake & Output 09/07/25 09/08/25 09/09/25 09/10/25 23:59 23:59 23:59 23:59 Intake Total 510 1400 1119 570 Output Total 1350 1200 1175 100 Balance -840 200 -56 470 Meds/Results Medications: Active Medications Generic Name Dose Route Start Last Admin Trade Name Freq PRN Reason Stop Dose Admin Aspirin 81 mg 09/03/25 09:00 09/10/25 09:12 Aspirin 81 Mg Enteric Tablet PO 81 mg QAM MIROSLAVA Administration Bisacodyl 10 mg 09/02/25 14:24 Bisacodyl 5 Mg Tablet Ec PO QAM PRN Constipation Cefdinir 300 mg 09/08/25 12:00 09/10/25 09:11 Cefdinir 300 Mg Capsule PO 300 mg Q12HR MIROSLAVA Administration Clindamycin HCl 450 mg 09/08/25 14:00 09/10/25 05:08 Clindamycin Hcl 150 Mg Cap PO 450 mg Q8HR MIROSLAVA Administration Clopidogrel Bisulfate 75 mg 09/05/25 09:00 09/10/25 09:12 Clopidogrel Bisulfate 75 Mg Tablet PO 75 mg QAM MIROSLAVA Administration Dextrose 12.5 gm 09/04/25 13:02 09/04/25 17:30 Dextrose 50% 25 Gm/50 Ml Syringe IV PUSH 12.5 gm PRN PRN Administration Hypoglycemia Protocol Enoxaparin Sodium 40 mg 09/05/25 10:05 09/10/25 09:12 Enoxaparin 40 Mg/0.4 Ml Syringe SUB-Q 40 mg DAILY MIROSLAVA Administration Ferrous Sulfate 325 mg 09/02/25 17:00 09/05/25 08:07 Ferrous Sulfate 325 Mg Tablet PO Not Given On Hold: 09/05/25 09:29 BIDWM MIROSLAVA Glucagon 1 mg 09/04/25 13:02 Glucagon For Inj 1 Mg Vial IM PRN PRN Hypoglycemia Protocol Glucose 15 gm 09/04/25 13:02 Glucose Oral Gel 15 Gm Of Glucse In 37.5 Gm Tube PO PRN PRN Hypoglycemia Protocol Heparin Sodium (Beef Lung) 50 units 09/02/25 09:00 09/10/25 09:12 Heparin Flush 50 Units/5 Ml Syringe IV PUSH 50 units QAM MIROSLAVA Administration Heparin Sodium (Beef Lung) 50 units 09/02/25 06:33 09/03/25 07:22 Heparin Flush 50 Units/5 Ml Syringe IV PUSH 50 units PRN PRN Administration after intermittent infusion Heparin Sodium (Beef Lung) 50 units 09/02/25 06:33 09/06/25 04:38 Heparin Flush 50 Units/5 Ml Syringe IV PUSH 50 units PRN PRN Administration after blood draws Heparin Sodium (Porcine) 500 units 09/02/25 06:33 Heparin Sodium Lock Flush 500 Units/5 Ml Syringe IV PUSH PRN PRN see comments below Hydrochlorothiazide 12.5 mg 09/03/25 09:00 09/05/25 08:08 Hydrochlorothiazide 12.5 Mg Capsule PO Not Given On Hold: 09/05/25 09:29 DAILY MIROSLAVA Dextrose 1,000 mls @ 100 mls/hr 09/04/25 13:02 Dextrose 5% 1,000 Ml IVPB PRN PRN Hypoglycemia Protocol Metoprolol Succinate 25 mg 09/03/25 09:00 09/05/25 08:08 Metoprolol Succinate Ext Rel 25 Mg Tabcr PO Not Given On Hold: 09/05/25 09:29 QAM MIROSLAVA Ondansetron HCl 4 mg 09/08/25 13:30 09/08/25 13:55 Ondansetron Inj 4 Mg/2 Ml Vial IV PUSH 4 mg Q6H PRN Administration Nausea And Vomiting Pantoprazole Sodium 40 mg 09/03/25 09:00 09/10/25 09:12 Pantoprazole 40 Mg Tablet PO 40 mg DAILY MIROSLAVA Administration Perflutren Lipid Microsphere 0 ml 09/08/25 08:49 Perflutren Lipid Microspheres 1.5 Ml Vial Diluted To 10 Ml Total Volume IV PUSH 09/11/25 08:49 ONCE PRN adequate visualization Protocol Polyethylene Glycol 17 gm 09/03/25 09:00 09/10/25 09:12 Polyethylene Glycol 3350 17 Gm Powd.Pack PO Not Given DAILY MIROSLAVA Pregabalin 50 mg 09/02/25 17:00 Pregabalin (*Crx) 50 Mg Capsule PO On Hold: 09/05/25 09:29 BID PRN NERVE PAIN Sodium Chloride 10 ml 09/02/25 14:00 09/10/25 05:08 Central Line Flush IV PUSH 10 ml Q8HR MIROSLAVA Administration Tramadol HCl 50 mg 09/02/25 14:24 09/08/25 09:11 Tramadol Hcl (*Crx) 50 Mg Tablet PO 50 mg Q12H PRN Administration Pain 4-6 Radiology Results: ITS Impressions Knee X-Ray 09/01/25 20:50 IMPRESSION: No acute fracture or dislocation. Severe degenerative changes. Large suprapatellar joint effusion. Wrist X-Ray 09/01/25 21:04 IMPRESSION: Extensive erosive changes. Chest X-Ray 09/03/25 15:08 Impression: Mild CHF Head CT 09/04/25 10:55 IMPRESSION: 1. Unchanged small old lacunar infarct at the anterior limb of the right internal capsule. No acute intracranial process. 2. Stable appearance of age-related changes including mild diffuse volume loss and mild to moderate scattered white matter hypoattenuation consistent with chronic small vessel ischemic disease. Venous Doppler Study 09/04/25 19:50 IMPRESSION: There was no sonographic evidence of deep vein thrombosis in the left lower extremity. Brain MRI 09/08/25 07:32 IMPRESSION: 1. Scattered acute infarcts in the deep white matter of the bilateral frontal and parietal lobes. 2. Moderate nonspecific cerebral white matter disease and pontine disease, which likely represents chronic small vessel ischemic disease. Labs Labs: Laboratory Results - last 24 hr 09/09/25 09/09/25 09/09/25 06:30 06:30 11:36 WBC RBC Hgb Hct MCV MCH MCHC RDW Plt Count MPV Immature Gran % (Auto) Neut % (Auto) Lymph % (Auto) [place] % (Auto) Eos % (Auto) Baso % (Auto) Lymph # (Auto) [place] # (Auto) Eos # (Auto) Baso # (Auto) Abs Immat Gran (auto) Absolute Neuts (auto) Absolute Nucleated RBC Band Neutrophils % Nucleated RBC % Atypical Lymphocytes Platelet Estimate Hypochromasia Anisocytosis Stomatocytes Schistocytes Sodium Potassium Chloride Carbon Dioxide Anion Gap BUN Creatinine Estim Creat Clear Calc Estimated GFR Glucose POC Capillary Glucose 128 H Calcium Magnesium Total Bilirubin AST ALT Alkaline Phosphatase Total Protein Albumin Blood Type A Positive Antibody Screen Positive Antibody Identification Anti-E Anti-Voorhees Antigen Identification TNP DAVIAN, IgG Interpret Positive DAVIAN, Poly Interpret Positive DAVIAN, Complement Interp Negative Enhanced Crossmatch See Detail 09/09/25 09/09/25 09/10/25 16:37 21:12 07:54 WBC 19.0 H RBC 2.87 L Hgb 9.0 L Hct 27.9 L MCV 97.2 MCH 31.4 MCHC 32.3 RDW 16.0 H Plt Count 400 H MPV 9.2 Immature Gran % (Auto) 22.6 H Neut % (Auto) 33.3 L Lymph % (Auto) 30.2 [place] % (Auto) 7.8 Eos % (Auto) 4.1 Baso % (Auto) 2.0 H Lymph # (Auto) 5.73 H [place] # (Auto) 1.5 H Eos # (Auto) 0.8 H Baso # (Auto) 0.4 H Abs Immat Gran (auto) 4.28 H Absolute Neuts (auto) 6.3 Absolute Nucleated RBC 0.020 H Band Neutrophils % Not Reportable Nucleated RBC % 0.1 Atypical Lymphocytes Present Platelet Estimate Adequate Hypochromasia 1+ Anisocytosis 1+ Stomatocytes 1+ Schistocytes None seen Sodium 131 L Potassium 4.5 Chloride 102 Carbon Dioxide 29 Anion Gap 0 L BUN 20 H Creatinine 0.72 Estim Creat Clear Calc 52 Estimated GFR > 60 Glucose 105 POC Capillary Glucose 133 H 137 H Calcium 8.0 L Magnesium 1.8 Total Bilirubin 0.5 AST 35 ALT 13 Alkaline Phosphatase 79 Total Protein 6.7 Albumin 2.4 L Blood Type Antibody Screen Antibody Identification Antigen Identification DAVIAN, IgG Interpret DAVIAN, Poly Interpret DAVIAN, Complement Interp Enhanced Crossmatch 09/10/25 08:15 WBC RBC Hgb Hct MCV MCH MCHC RDW Plt Count MPV Immature Gran % (Auto) Neut % (Auto) Lymph % (Auto) [place] % (Auto) Eos % (Auto) Baso % (Auto) Lymph # (Auto) [place] # (Auto) Eos # (Auto) Baso # (Auto) Abs Immat Gran (auto) Absolute Neuts (auto) Absolute Nucleated RBC Band Neutrophils % Nucleated RBC % Atypical Lymphocytes Platelet Estimate Hypochromasia Anisocytosis Stomatocytes Schistocytes Sodium Potassium Chloride Carbon Dioxide Anion Gap BUN Creatinine Estim Creat Clear Calc Estimated GFR Glucose POC Capillary Glucose 107 H Calcium Magnesium Total Bilirubin AST ALT Alkaline Phosphatase Total Protein Albumin Blood Type Antibody Screen Antibody Identification Antigen Identification DAVIAN, IgG Interpret DAVIAN, Poly Interpret DAVIAN, Complement Interp Enhanced Crossmatch Quality VTE Prophylaxis VTE prophylaxis: mechanical ordered
[2025-09-10] MEDS: cefTRIAXone 2 GM in SODIUM CHLORIDE 0.9% IV 100 ML 200 ML IVPB (12:54)
[2025-09-10 13:53] LABS: Add Urine Microscopic? YES; Appearance Urine Cloudy (Clear); Glucose Urine UA Negative (Negative); Leukocyte Esterase Ur Trace LEU/UL (Negative); Need Manual Microscopic Reviewed; Nitrate Urine Negative (Negative); Non Pathogenic Casts >20; Specific Grav Ur 1.028 (1.001-1.035)
[2025-09-10] MEDS: traMADol HCL (*CRX) 50 MG TABLET PO (14:18)
--- NOTE | 2025-09-10 15:19 | P.PNOP_ITS ---
Progress Note: A&P Assessment and Plan (1) Effusion of right knee: Code(s): M25.461 - Effusion, right knee Status: Acute Assessment and Plan: Awaiting cultures for to rule out infection. Patient progressing slowly. Continued and somewhat increased complaints of knee pain. Will reaspirated the knee to decompress it and check cultures again. Following. (2) Osteoarthritis of right knee: Code(s): M17.11 - Unilateral primary osteoarthritis, right knee Status: Acute Subjective Subjective Date/Time Seen: 09/10/25 15:19 Principal diagnosis: knee pain RIGHT Review of Systems Musculoskeletal: Musculoskeletal: Reports arthralgias, Reports joint swelling and Reports stiffness Exam Narrative: Patient has pain and swelling in the right knee. She is chronically swollen painful. I have seen her in the office. I sent her back to [place] where the original surgery was performed. Unfortunately she continues to be symptomatic. Eyes: General: appearance normal, both eyes and all related structures Neck: Neck: supple Resp: Effort & Inspection: normal respiratory effort Cardio: Rate: regular rate Rhythm: regular rhythm Objective Data Vital Signs Vital Signs: Vital Signs - 24 hr 09/09/25 16:05 09/09/25 20:00 09/09/25 20:00 Temperature Pulse Rate 76 80 Respiratory Rate Blood Pressure Pulse Oximetry Oxygen Delivery Room Air 09/09/25 20:59 09/10/25 00:00 09/10/25 00:42 Temperature 98.0 F 98.3 F Pulse Rate 74 68 75 Respiratory Rate 18 16 Blood Pressure 114/59 L 122/61 Pulse Oximetry 99 99 Oxygen Delivery 09/10/25 00:59 09/10/25 02:00 09/10/25 03:02 Temperature 98.3 F 98.6 F 98.1 F Pulse Rate 75 79 77 Respiratory Rate 18 16 18 Blood Pressure 116/56 L 116/58 L 114/56 L Pulse Oximetry 99 98 99 Oxygen Delivery 09/10/25 04:00 09/10/25 04:30 09/10/25 06:00 Temperature 98.2 F 97.9 F Pulse Rate 61 78 78 Respiratory Rate 18 16 Blood Pressure 122/63 118/61 Pulse Oximetry 99 99 Oxygen Delivery 09/10/25 09:15 09/10/25 14:00 Temperature 97.8 F Pulse Rate 77 Respiratory Rate 18 Blood Pressure 147/75 H Pulse Oximetry 100 Oxygen Delivery Room Air Intake/Output Intake/Output: Intake & Output 09/07/25 09/08/25 09/09/25 09/10/25 23:59 23:59 23:59 23:59 Intake Total 510 1400 1119 810 Output Total 1350 1200 1175 100 Balance -840 200 -56 710 Meds/Results Medications: Active Medications Generic Name Dose Route Start Last Admin Trade Name Freq PRN Reason Stop Dose Admin Aspirin 81 mg 09/03/25 09:00 09/10/25 09:12 Aspirin 81 Mg Enteric Tablet PO 81 mg QAM MIROSLAVA Administration Bisacodyl 10 mg 09/02/25 14:24 Bisacodyl 5 Mg Tablet Ec PO QAM PRN Constipation Clindamycin HCl 450 mg 09/08/25 14:00 09/10/25 14:18 Clindamycin Hcl 150 Mg Cap PO 450 mg Q8HR MIROSLAVA Administration Clopidogrel Bisulfate 75 mg 09/05/25 09:00 09/10/25 09:12 Clopidogrel Bisulfate 75 Mg Tablet PO 75 mg QAM MIROSLAVA Administration Dextrose 12.5 gm 09/04/25 13:02 09/04/25 17:30 Dextrose 50% 25 Gm/50 Ml Syringe IV PUSH 12.5 gm PRN PRN Administration Hypoglycemia Protocol Enoxaparin Sodium 40 mg 09/05/25 10:05 09/10/25 09:12 Enoxaparin 40 Mg/0.4 Ml Syringe SUB-Q 40 mg DAILY MIROSLAVA Administration Ferrous Sulfate 325 mg 09/02/25 17:00 09/05/25 08:07 Ferrous Sulfate 325 Mg Tablet PO Not Given On Hold: 09/05/25 09:29 BIDWM MIROSLAVA Glucagon 1 mg 09/04/25 13:02 Glucagon For Inj 1 Mg Vial IM PRN PRN Hypoglycemia Protocol Glucose 15 gm 09/04/25 13:02 Glucose Oral Gel 15 Gm Of Glucse In 37.5 Gm Tube PO PRN PRN Hypoglycemia Protocol Heparin Sodium (Beef Lung) 50 units 09/02/25 09:00 09/10/25 09:12 Heparin Flush 50 Units/5 Ml Syringe IV PUSH 50 units QAM MIROSLAVA Administration Heparin Sodium (Beef Lung) 50 units 09/02/25 06:33 09/03/25 07:22 Heparin Flush 50 Units/5 Ml Syringe IV PUSH 50 units PRN PRN Administration after intermittent infusion Heparin Sodium (Beef Lung) 50 units 09/02/25 06:33 09/06/25 04:38 Heparin Flush 50 Units/5 Ml Syringe IV PUSH 50 units PRN PRN Administration after blood draws Heparin Sodium (Porcine) 500 units 09/02/25 06:33 Heparin Sodium Lock Flush 500 Units/5 Ml Syringe IV PUSH PRN PRN see comments below Hydrochlorothiazide 12.5 mg 09/03/25 09:00 09/05/25 08:08 Hydrochlorothiazide 12.5 Mg Capsule PO Not Given On Hold: 09/05/25 09:29 DAILY MIROSLAVA Dextrose 1,000 mls @ 100 mls/hr 09/04/25 13:02 Dextrose 5% 1,000 Ml IVPB PRN PRN Hypoglycemia Protocol Ceftriaxone Sodium 2 gm/ 100 mls @ 200 mls/hr 09/10/25 12:00 09/10/25 12:54 Sodium Chloride IVPB 200 mls/hr Q24H MIROSLAVA Administration Metoprolol Succinate 25 mg 09/03/25 09:00 09/05/25 08:08 Metoprolol Succinate Ext Rel 25 Mg Tabcr PO Not Given On Hold: 09/05/25 09:29 QAM MIROSLAVA Ondansetron HCl 4 mg 09/08/25 13:30 09/08/25 13:55 Ondansetron Inj 4 Mg/2 Ml Vial IV PUSH 4 mg Q6H PRN Administration Nausea And Vomiting Pantoprazole Sodium 40 mg 09/03/25 09:00 09/10/25 09:12 Pantoprazole 40 Mg Tablet PO 40 mg DAILY MIROSLAVA Administration Perflutren Lipid Microsphere 0 ml 09/08/25 08:49 Perflutren Lipid Microspheres 1.5 Ml Vial Diluted To 10 Ml Total Volume IV PUSH 09/11/25 08:49 ONCE PRN adequate visualization Protocol Polyethylene Glycol 17 gm 09/03/25 09:00 09/10/25 09:12 Polyethylene Glycol 3350 17 Gm Powd.Pack PO Not Given DAILY MIROSLAVA Pregabalin 50 mg 09/02/25 17:00 Pregabalin (*Crx) 50 Mg Capsule PO On Hold: 09/05/25 09:29 BID PRN NERVE PAIN Sodium Chloride 10 ml 09/02/25 14:00 09/10/25 14:20 Central Line Flush IV PUSH 10 ml Q8HR MIROSLAVA Administration Tramadol HCl 50 mg 09/02/25 14:24 09/10/25 14:18 Tramadol Hcl (*Crx) 50 Mg Tablet PO 50 mg Q12H PRN Administration Pain 4-6 Radiology Results: ITS Impressions Knee X-Ray 09/01/25 20:50 IMPRESSION: No acute fracture or dislocation. Severe degenerative changes. Large suprapatellar joint effusion. Wrist X-Ray 09/01/25 21:04 IMPRESSION: Extensive erosive changes. Head CT 09/04/25 10:55 IMPRESSION: 1. Unchanged small old lacunar infarct at the anterior limb of the right internal capsule. No acute intracranial process. 2. Stable appearance of age-related changes including mild diffuse volume loss and mild to moderate scattered white matter hypoattenuation consistent with chronic small vessel ischemic disease. Venous Doppler Study 09/04/25 19:50 IMPRESSION: There was no sonographic evidence of deep vein thrombosis in the left lower extremity. Brain MRI 09/08/25 07:32 IMPRESSION: 1. Scattered acute infarcts in the deep white matter of the bilateral frontal and parietal lobes. 2. Moderate nonspecific cerebral white matter disease and pontine disease, which likely represents chronic small vessel ischemic disease. Chest X-Ray 09/10/25 12:53 IMPRESSION: 1. No acute cardiopulmonary findings given portable technique. Labs Labs: Laboratory Results - last 24 hr 09/09/25 09/09/25 09/09/25 06:30 06:30 16:37 WBC RBC Hgb Hct MCV MCH MCHC RDW Plt Count MPV Immature Gran % (Auto) Neut % (Auto) Lymph % (Auto) [place] % (Auto) Eos % (Auto) Baso % (Auto) Lymph # (Auto) [place] # (Auto) Eos # (Auto) Baso # (Auto) Abs Immat Gran (auto) Absolute Neuts (auto) Absolute Nucleated RBC Band Neutrophils % Nucleated RBC % Atypical Lymphocytes Platelet Estimate Hypochromasia Anisocytosis Stomatocytes Schistocytes Sodium Potassium Chloride Carbon Dioxide Anion Gap BUN Creatinine Estim Creat Clear Calc Estimated GFR Glucose POC Capillary Glucose 133 H Calcium Magnesium Total Bilirubin AST ALT Alkaline Phosphatase Total Protein Albumin Urine Color Urine Appearance Urine pH Ur Specific [place] Urine Protein Urine Glucose (UA) Urine Ketones Ur Blood (Man) Urine Nitrate Urine Bilirubin Urine Urobilinogen Add Ur Microanalysis Leukocyte Esterase Rfl Urine RBC Urine WBC Ur Squamous Epith Cells Urine Bacteria Urine Casts Blood Type A Positive Antibody Screen Positive Antibody Identification Anti-E Anti-Daysi Antigen Identification TNP DAVIAN, IgG Interpret Positive DAVIAN, Poly Interpret Positive DAVIAN, Complement Interp Negative Enhanced Crossmatch See Detail 09/09/25 09/10/25 09/10/25 21:12 07:54 08:15 WBC 19.0 H RBC 2.87 L Hgb 9.0 L Hct 27.9 L MCV 97.2 MCH 31.4 MCHC 32.3 RDW 16.0 H Plt Count 400 H MPV 9.2 Immature Gran % (Auto) 22.6 H Neut % (Auto) 33.3 L Lymph % (Auto) 30.2 [place] % (Auto) 7.8 Eos % (Auto) 4.1 Baso % (Auto) 2.0 H Lymph # (Auto) 5.73 H [place] # (Auto) 1.5 H Eos # (Auto) 0.8 H Baso # (Auto) 0.4 H Abs Immat Gran (auto) 4.28 H Absolute Neuts (auto) 6.3 Absolute Nucleated RBC 0.020 H Band Neutrophils % Not Reportable Nucleated RBC % 0.1 Atypical Lymphocytes Present Platelet Estimate Adequate Hypochromasia 1+ Anisocytosis 1+ Stomatocytes 1+ Schistocytes None seen Sodium 131 L Potassium 4.5 Chloride 102 Carbon Dioxide 29 Anion Gap 0 L BUN 20 H Creatinine 0.72 Estim Creat Clear Calc 52 Estimated GFR > 60 Glucose 105 POC Capillary Glucose 137 H 107 H Calcium 8.0 L Magnesium 1.8 Total Bilirubin 0.5 AST 35 ALT 13 Alkaline Phosphatase 79 Total Protein 6.7 Albumin 2.4 L Urine Color Urine Appearance Urine pH Ur Specific [place] Urine Protein Urine Glucose (UA) Urine Ketones Ur Blood (Man) Urine Nitrate Urine Bilirubin Urine Urobilinogen Add Ur Microanalysis Leukocyte Esterase Rfl Urine RBC Urine WBC Ur Squamous Epith Cells Urine Bacteria Urine Casts Blood Type Antibody Screen Antibody Identification Antigen Identification DAVIAN, IgG Interpret DAVIAN, Poly Interpret DAVIAN, Complement Interp Enhanced Crossmatch 09/10/25 09/10/25 12:16 12:56 WBC RBC Hgb Hct MCV MCH MCHC RDW Plt Count MPV Immature Gran % (Auto) Neut % (Auto) Lymph % (Auto) [place] % (Auto) Eos % (Auto) Baso % (Auto) Lymph # (Auto) [place] # (Auto) Eos # (Auto) Baso # (Auto) Abs Immat Gran (auto) Absolute Neuts (auto) Absolute Nucleated RBC Band Neutrophils % Nucleated RBC % Atypical Lymphocytes Platelet Estimate Hypochromasia Anisocytosis Stomatocytes Schistocytes Sodium Potassium Chloride Carbon Dioxide Anion Gap BUN Creatinine Estim Creat Clear Calc Estimated GFR Glucose POC Capillary Glucose 104 Calcium Magnesium Total Bilirubin AST ALT Alkaline Phosphatase Total Protein Albumin Urine Color Dark yellow Urine Appearance Cloudy H Urine pH 5.5 Ur Specific [place] 1.028 Urine Protein 2+ H Urine Glucose (UA) Negative Urine Ketones Trace H Ur Blood (Man) Negative Urine Nitrate Negative Urine Bilirubin 1+ H Urine Urobilinogen 1.0 Add Ur Microanalysis Reviewed Leukocyte Esterase Rfl Trace H Urine RBC 0-2 Urine WBC 0-5 Ur Squamous Epith Cells Few Urine Bacteria None seen Urine Casts >20 Blood Type Antibody Screen Antibody Identification Antigen Identification DAVIAN, IgG Interpret DAVIAN, Poly Interpret DAVIAN, Complement Interp Enhanced Crossmatch
--- NOTE | 2025-09-10 15:20 | PCSTNOTE ---
Speech Therapy attempted to see for treatment. Leaving room for procedure.
--- NOTE | 2025-09-10 16:11 | PC.NURSE ---
Patient to US per stretcher at 1525 and returned at 1610.
[2025-09-10] MEDS: ACETAMINOPHEN 325 MG TABLET 650 MG PO (22:02)
[2025-09-11] VITALS (9 sets, daily range): BP systolic 116–132; BP diastolic 62–74; PULSE 65–83; RESP 16–18; TEMP 36.6–36.7; O2SAT 99–100
[2025-09-11] MEDS: CENTRAL LINE FLUSH 10 ML IV PUSH ×3 (05:50→21:28)
[2025-09-11] MEDS: CLINDAMYCIN HCL 150 MG CAP 450 MG PO ×3 (05:50→21:28)
[2025-09-11 06:04] LABS: Hematocrit 29.7 % (37.0-47.0); Hemoglobin 9.5 g/dL (12.0-15.0); Mean Corpuscular HGB Conc 32.0 g/dl (32-36); Mean Corpuscular Hemoglobin 31.4 pg (26-34); Mean Corpuscular Volume 98.0 fl (80-100); Platelet Count Result 409 k/mm3 (150-375); Red Blood Count 3.03 M/mm3 (4.2-5.4); White Blood Count 14.6 K/mm3 (4.5-10.0)
[2025-09-11 06:29] LABS: Alanine Aminotransferase 13 U/L (6-35); Albumin Level 2.5 g/dL (3.5-5.1); Alkaline Phosphatase 82 U/L (38-126); Anion Gap 4 mmol/L (4-12); Aspartate Amino Transferase 41 U/L (14-36); Bilirubin,Total 0.4 mg/dL (0.2-1.3); Blood Urea Nitrogen 25 mg/dL (7-17); Calcium 8.2 mg/dL (8.4-10.2); Carbon Dioxide 26 mmol/L (22-30); Chloride 102 mmol/L (98-107); Estimated CRCL calculation 58 ml/min; Estimated Glomerular Filt Rate > 60; Glucose 173 mg/dL (65-110); Magnesium 1.9 mg/dL (1.6-2.3); Potassium 5.0 mmol/L (3.4-5.0); Sodium 132 mmol/L (137-145); Total Protein 6.9 g/dL (6.3-8.2)
[2025-09-11 06:54] LABS: Neutrophils Percent Manual 53 % (46-73); Total Cells Counted 100
[2025-09-11 06:55] LABS: Band Neutrophils Percent 17 % (0-6); Eosinophils Absolute Manual 0.14 K/mm3 (0.02-0.50); Eosinophils Percent Manual 1 % (0-4); Lymphocytes Absolute Manual 3.65 K/mm3 (1.1-4.5); Lymphocytes Percent Manual 25 % (18-44); Monocytes Absolute Manual 0.43 K/mm3 (0.1-0.90); Monocytes Percent Manual 3 % (3-9); Neutrophils Absolute Manual 10.22 K/mm3 (1.3-6.7); Schistocytes None Seen
--- NOTE | 2025-09-11 07:01 | PM.PNORT ---
Progress Note: A&P Assessment and Plan (1) Effusion of right knee: Code(s): M25.461 - Effusion, right knee Status: Acute Assessment and Plan: Patient is seemingly a bit better today. Prednisone seems to be helping. For some reason she is listed prednisone as an allergy a without any reaction to it. Will follow along. If the aspirate is negative in she does does not improve recommend transfer to a tertiary care center. (2) Rheumatoid arthritis: Qualifiers: Rheumatoid arthritis location: unspecified site Rheumatoid factor presence: unspecified presence Qualified Code(s): M06.9 - Rheumatoid arthritis, unspecified Code(s): M06.9 - Rheumatoid arthritis, unspecified Status: Acute Subjective Subjective Date/Time Seen: 09/11/25 07:01 Principal diagnosis: Knee effusion Exam Narrative: Moderate swelling knee pain is seemingly better. Objective Data Vital Signs Vital Signs: Vital Signs - 24 hr 09/10/25 08:05 09/10/25 09:15 09/10/25 12:06 Temperature Pulse Rate 80 75 Respiratory Rate Blood Pressure Pulse Oximetry Oxygen Delivery Room Air 09/10/25 14:00 09/10/25 16:05 09/10/25 20:00 Temperature 97.8 F Pulse Rate 77 90 Respiratory Rate 18 Blood Pressure 147/75 H Pulse Oximetry 100 Oxygen Delivery Room Air 09/10/25 20:00 09/10/25 20:18 09/10/25 22:02 Temperature 100.2 F H 100.2 F H Pulse Rate 81 98 Respiratory Rate 18 Blood Pressure 118/57 L Pulse Oximetry 98 Oxygen Delivery 09/10/25 23:02 09/11/25 00:00 09/11/25 04:00 Temperature 98.2 F Pulse Rate 81 72 Respiratory Rate Blood Pressure Pulse Oximetry Oxygen Delivery 09/11/25 05:05 Temperature 98 F Pulse Rate 67 Respiratory Rate 16 Blood Pressure 120/70 Pulse Oximetry 100 Oxygen Delivery Intake/Output Intake/Output: Intake & Output 09/08/25 09/09/25 09/10/25 09/11/25 23:59 23:59 23:59 23:59 Intake Total 1400 1119 810 100 Output Total 1200 1175 313 500 Balance 200 -56 497 -400 Meds/Results Medications: Active Medications Generic Name Dose Route Start Last Admin Trade Name Freq PRN Reason Stop Dose Admin Acetaminophen 650 mg 09/10/25 21:14 09/10/25 22:02 Acetaminophen 325 Mg Tablet PO 650 mg Q4H PRN Administration Mild Pain (1-3) or Fever Aspirin 81 mg 09/03/25 09:00 09/10/25 09:12 Aspirin 81 Mg Enteric Tablet PO 81 mg QAM MIROSLAVA Administration Bisacodyl 10 mg 09/02/25 14:24 Bisacodyl 5 Mg Tablet Ec PO QAM PRN Constipation Clindamycin HCl 450 mg 09/08/25 14:00 09/11/25 05:50 Clindamycin Hcl 150 Mg Cap PO 450 mg Q8HR MIROSLAVA Administration Clopidogrel Bisulfate 75 mg 09/05/25 09:00 09/10/25 09:12 Clopidogrel Bisulfate 75 Mg Tablet PO 75 mg QAM MIROSLAVA Administration Dextrose 12.5 gm 09/04/25 13:02 09/04/25 17:30 Dextrose 50% 25 Gm/50 Ml Syringe IV PUSH 12.5 gm PRN PRN Administration Hypoglycemia Protocol Enoxaparin Sodium 40 mg 09/05/25 10:05 09/10/25 09:12 Enoxaparin 40 Mg/0.4 Ml Syringe SUB-Q 40 mg DAILY MIROSLAVA Administration Ferrous Sulfate 325 mg 09/02/25 17:00 09/05/25 08:07 Ferrous Sulfate 325 Mg Tablet PO Not Given On Hold: 09/05/25 09:29 BIDWM MIROSLAVA Glucagon 1 mg 09/04/25 13:02 Glucagon For Inj 1 Mg Vial IM PRN PRN Hypoglycemia Protocol Glucose 15 gm 09/04/25 13:02 Glucose Oral Gel 15 Gm Of Glucse In 37.5 Gm Tube PO PRN PRN Hypoglycemia Protocol Heparin Sodium (Beef Lung) 50 units 09/02/25 09:00 09/10/25 09:12 Heparin Flush 50 Units/5 Ml Syringe IV PUSH 50 units QAM MIROSLAVA Administration Heparin Sodium (Beef Lung) 50 units 09/02/25 06:33 09/03/25 07:22 Heparin Flush 50 Units/5 Ml Syringe IV PUSH 50 units PRN PRN Administration after intermittent infusion Heparin Sodium (Beef Lung) 50 units 09/02/25 06:33 09/06/25 04:38 Heparin Flush 50 Units/5 Ml Syringe IV PUSH 50 units PRN PRN Administration after blood draws Heparin Sodium (Porcine) 500 units 09/02/25 06:33 Heparin Sodium Lock Flush 500 Units/5 Ml Syringe IV PUSH PRN PRN see comments below Hydrochlorothiazide 12.5 mg 09/03/25 09:00 09/05/25 08:08 Hydrochlorothiazide 12.5 Mg Capsule PO Not Given On Hold: 09/05/25 09:29 DAILY MIROSLAVA Dextrose 1,000 mls @ 100 mls/hr 09/04/25 13:02 Dextrose 5% 1,000 Ml IVPB PRN PRN Hypoglycemia Protocol Ceftriaxone Sodium 2 gm/ 100 mls @ 200 mls/hr 09/10/25 12:00 09/10/25 12:54 Sodium Chloride IVPB 200 mls/hr Q24H MIROSLAVA Administration Metoprolol Succinate 25 mg 09/03/25 09:00 09/05/25 08:08 Metoprolol Succinate Ext Rel 25 Mg Tabcr PO Not Given On Hold: 09/05/25 09:29 QAM MIROSLAVA Ondansetron HCl 4 mg 09/08/25 13:30 09/08/25 13:55 Ondansetron Inj 4 Mg/2 Ml Vial IV PUSH 4 mg Q6H PRN Administration Nausea And Vomiting Pantoprazole Sodium 40 mg 09/03/25 09:00 09/10/25 09:12 Pantoprazole 40 Mg Tablet PO 40 mg DAILY MIROSLAVA Administration Perflutren Lipid Microsphere 0 ml 09/08/25 08:49 Perflutren Lipid Microspheres 1.5 Ml Vial Diluted To 10 Ml Total Volume IV PUSH 09/11/25 08:49 ONCE PRN adequate visualization Protocol Polyethylene Glycol 17 gm 09/03/25 09:00 09/10/25 09:12 Polyethylene Glycol 3350 17 Gm Powd.Pack PO Not Given DAILY [facility] Prednisone 40 mg 09/10/25 17:05 09/10/25 22:02 Prednisone 20 Mg Tablet PO 40 mg DAILY@0800 MIROSLAVA Administration Pregabalin 50 mg 09/02/25 17:00 Pregabalin (*Crx) 50 Mg Capsule PO On Hold: 09/05/25 09:29 BID PRN NERVE PAIN Sodium Chloride 10 ml 09/02/25 14:00 09/11/25 05:50 Central Line Flush IV PUSH 10 ml Q8HR MIROSLAVA Administration Tramadol HCl 50 mg 09/02/25 14:24 09/10/25 14:18 Tramadol Hcl (*Crx) 50 Mg Tablet PO 50 mg Q12H PRN Administration Pain 4-6 Radiology Results: ITS Impressions Knee X-Ray 09/01/25 20:50 IMPRESSION: No acute fracture or dislocation. Severe degenerative changes. Large suprapatellar joint effusion. Wrist X-Ray 09/01/25 21:04 IMPRESSION: Extensive erosive changes. Head CT 09/04/25 10:55 IMPRESSION: 1. Unchanged small old lacunar infarct at the anterior limb of the right internal capsule. No acute intracranial process. 2. Stable appearance of age-related changes including mild diffuse volume loss and mild to moderate scattered white matter hypoattenuation consistent with chronic small vessel ischemic disease. Venous Doppler Study 09/04/25 19:50 IMPRESSION: There was no sonographic evidence of deep vein thrombosis in the left lower extremity. Brain MRI 09/08/25 07:32 IMPRESSION: 1. Scattered acute infarcts in the deep white matter of the bilateral frontal and parietal lobes. 2. Moderate nonspecific cerebral white matter disease and pontine disease, which likely represents chronic small vessel ischemic disease. Chest X-Ray 09/10/25 12:53 IMPRESSION: 1. No acute cardiopulmonary findings given portable technique. Joint Aspiration/Injection 09/10/25 16:56 IMPRESSION: 1. Successful ultrasound-guided right knee joint aspiration yielding 13 mL of turbid reddish orange-colored fluid. Labs Labs: Laboratory Results - last 24 hr 09/10/25 09/10/25 09/10/25 07:54 08:15 12:16 WBC 19.0 H RBC 2.87 L Hgb 9.0 L Hct 27.9 L MCV 97.2 MCH 31.4 MCHC 32.3 RDW 16.0 H Plt Count 400 H MPV 9.2 Immature Gran % (Auto) 22.6 H Neut % (Auto) 33.3 L Lymph % (Auto) 30.2 [place] % (Auto) 7.8 Eos % (Auto) 4.1 Baso % (Auto) 2.0 H Lymph # (Auto) 5.73 H [place] # (Auto) 1.5 H Eos # (Auto) 0.8 H Baso # (Auto) 0.4 H Abs Immat Gran (auto) 4.28 H Absolute Neuts (auto) 6.3 Absolute Nucleated RBC 0.020 H Total Counted Neutrophils % (Manual) Band Neutrophils % Not Reportable Lymphocytes % (Manual) Monocytes % (Manual) Eosinophils % (Manual) Nucleated RBC % 0.1 Abs Neuts (Manual) Abs Lymphs (Manual) Abs Monocytes (Manual) Absolute Eos (Manual) Atypical Lymphocytes Present Platelet Estimate Adequate Hypochromasia 1+ Anisocytosis 1+ Stomatocytes 1+ Schistocytes None seen Sodium 131 L Potassium 4.5 Chloride 102 Carbon Dioxide 29 Anion Gap 0 L BUN 20 H Creatinine 0.72 Estim Creat Clear Calc 52 Estimated GFR > 60 Glucose 105 POC Capillary Glucose 107 H 104 Calcium 8.0 L Magnesium 1.8 Total Bilirubin 0.5 AST 35 ALT 13 Alkaline Phosphatase 79 Total Protein 6.7 Albumin 2.4 L Urine Color Urine Appearance Urine pH Ur Specific [place] Urine Protein Urine Glucose (UA) Urine Ketones Ur Blood (Man) Urine Nitrate Urine Bilirubin Urine Urobilinogen Add Ur Microanalysis Leukocyte Esterase Rfl Urine RBC Urine WBC Ur Squamous Epith Cells Urine Bacteria Urine Casts 09/10/25 09/10/25 09/10/25 12:56 17:36 20:25 WBC RBC Hgb Hct MCV MCH MCHC RDW Plt Count MPV Immature Gran % (Auto) Neut % (Auto) Lymph % (Auto) [place] % (Auto) Eos % (Auto) Baso % (Auto) Lymph # (Auto) [place] # (Auto) Eos # (Auto) Baso # (Auto) Abs Immat Gran (auto) Absolute Neuts (auto) Absolute Nucleated RBC Total Counted Neutrophils % (Manual) Band Neutrophils % Lymphocytes % (Manual) Monocytes % (Manual) Eosinophils % (Manual) Nucleated RBC % Abs Neuts (Manual) Abs Lymphs (Manual) Abs Monocytes (Manual) Absolute Eos (Manual) Atypical Lymphocytes Platelet Estimate Hypochromasia Anisocytosis Stomatocytes Schistocytes Sodium Potassium Chloride Carbon Dioxide Anion Gap BUN Creatinine Estim Creat Clear Calc Estimated GFR Glucose POC Capillary Glucose 98 110 H Calcium Magnesium Total Bilirubin AST ALT Alkaline Phosphatase Total Protein Albumin Urine Color Dark yellow Urine Appearance Cloudy H Urine pH 5.5 Ur Specific [place] 1.028 Urine Protein 2+ H Urine Glucose (UA) Negative Urine Ketones Trace H Ur Blood (Man) Negative Urine Nitrate Negative Urine Bilirubin 1+ H Urine Urobilinogen 1.0 Add Ur Microanalysis Reviewed Leukocyte Esterase Rfl Trace H Urine RBC 0-2 Urine WBC 0-5 Ur Squamous Epith Cells Few Urine Bacteria None seen Urine Casts >20 09/11/25 05:51 WBC 14.6 H RBC 3.03 L Hgb 9.5 L Hct 29.7 L MCV 98.0 MCH 31.4 MCHC 32.0 RDW 15.9 H Plt Count 409 H MPV 9.2 Immature Gran % (Auto) Not Reportable Neut % (Auto) Not Reportable Lymph % (Auto) Not Reportable [place] % (Auto) Not Reportable Eos % (Auto) Not Reportable Baso % (Auto) Not Reportable Lymph # (Auto) Not Reportable [place] # (Auto) Not Reportable Eos # (Auto) Not Reportable Baso # (Auto) Not Reportable Abs Immat Gran (auto) Not Reportable Absolute Neuts (auto) Not Reportable Absolute Nucleated RBC Not Reportable Total Counted 100 Neutrophils % (Manual) 53 Band Neutrophils % 17 H Lymphocytes % (Manual) 25 Monocytes % (Manual) 3 Eosinophils % (Manual) 1 Nucleated RBC % Not Reportable Abs Neuts (Manual) 10.22 H Abs Lymphs (Manual) 3.65 Abs Monocytes (Manual) 0.43 Absolute Eos (Manual) 0.14 Atypical Lymphocytes Platelet Estimate Adequate Hypochromasia Anisocytosis Stomatocytes Schistocytes None seen Sodium 132 L Potassium 5.0 Chloride 102 Carbon Dioxide 26 Anion Gap 4 BUN 25 H Creatinine 0.65 L Estim Creat Clear Calc 58 Estimated GFR > 60 Glucose 173 H POC Capillary Glucose Calcium 8.2 L Magnesium 1.9 Total Bilirubin 0.4 AST 41 H ALT 13 Alkaline Phosphatase 82 Total Protein 6.9 Albumin 2.5 L Urine Color Urine Appearance Urine pH Ur Specific [place] Urine Protein Urine Glucose (UA) Urine Ketones Ur Blood (Man) Urine Nitrate Urine Bilirubin Urine Urobilinogen Add Ur Microanalysis Leukocyte Esterase Rfl Urine RBC Urine WBC Ur Squamous Epith Cells Urine Bacteria Urine Casts
[2025-09-11] MEDS: ASPIRIN 81 MG ENTERIC TABLET PO (08:49)
[2025-09-11] MEDS: CLOPIDOGREL BISULFATE 75 MG TABLET PO (08:49)
[2025-09-11] MEDS: ENOXAPARIN 40 MG/0.4 ML SYRINGE SUB-Q (08:49)
[2025-09-11] MEDS: PANTOPRAZOLE 40 MG TABLET PO (08:49)
--- NOTE | 2025-09-11 09:42 | P.PNIM_ITS ---
Progress Note: A&P Assessment and Plan (1) Acute CVA (cerebrovascular accident): Code(s): I63.9 - Cerebral infarction, unspecified Status: Acute Assessment and Plan: Brain MRI shows Scattered acute infarcts in the deep white matter of the bilateral frontal and parietal lobes. continue Aspirin and Plavix lipid panel: Cholesterol 91, LDL 62, HDL 9, and triglycerides 96. ECHO: EF 70%, Grade 1 diastolic dysfunction Neurology consulted, recommending cardiology consult, spoke to cardiology no need for inpatient consult will order Holter monitor on discharge and follow-up outpatient PT/OT/ST (2) Altered mental status: Qualifiers: Altered mental status type: unspecified Qualified Code(s): R41.82 - Altered mental status, unspecified Code(s): R41.82 - Altered mental status, unspecified Status: Acute Assessment and Plan: Improving 09/04 nurse reported patient had altered mental status today, unable to wake up, does not follow commands, not answering questions, appeared to have facial drooping code stroke was called s/p Head CT showed old infarcts s/p CXR 09/03 without acute findings. Normal TSH, and ammonia covid/flu/RSV negative UDS negative venous dopplers of BUE and LLE neg medications that can cause sedation were held Brain MRI 09/07- showed Scattered acute infarcts in the deep white matter of the bilateral frontal and parietal lobes. UA, BCX2, Chest [id number], and Ortho consult for right knee. Change antibiotic from Cefdinir to Ceftriaxone 2 gram IVPB q 24. Continue Clindamycin 450 mg PO q 8 hr. Leukocytosis improving on antibiotics 09/10 Knee aspiration fluid culture pending (3) Osteoarthritis of right knee: Code(s): M17.11 - Unilateral primary osteoarthritis, right knee Status: Acute Assessment and Plan: She had arthrocentesis done in the ER. Synovial fluid suggest inflammatory fluid Cultures are negative - CRP 24, ESR 140 Prednisone, No surgical intervention for washout planned at this time, 09/10-Synovial fluid -cultures pending Change antibiotic from Cefdinir to Ceftriaxone 2 gram IVPB q 24. Continue Clindamycin 450 mg PO q 8 hr. (4) Anemia: Code(s): D64.9 - Anemia, unspecified Status: Acute Assessment and Plan: Received 1 unit PRBC on 09/09/25, patient has Antibodies. No signs of acute bleeding Transfuse for hemoglobin less than 7 or symptomatic No need for transfusion at this time (5) Severe protein-calorie malnutrition: Code(s): E43 - Unspecified severe protein-calorie malnutrition Status: Acute Assessment and Plan: Dietitian consulted, appreciate further recommendations Reviews the patient had a PEG tube in the past Consult speech for swallow evaluation started on minced/moist diet with regular liquids - advanced today after tolerating regular foods today. Ensure Plus TID with meals. (6) Urinary tract infection: Code(s): N39.0 - Urinary tract infection, site not specified Status: Acute Assessment and Plan: UA: 1+ leukocyte esterase, 6-10 WBC, many squamous epithelial cells, 1+ bacteria UC negative. Change antibiotic from Cefdinir to Ceftriaxone 2 gram IVPB q 24. Continue Clindamycin 450 mg PO q 8 hr. Leukocytosis improving (7) Hypotension: Code(s): I95.9 - Hypotension, unspecified Status: Acute Assessment and Plan: rapid called 09/03 due to hypotension and low urine output patient given IV fluid bolus followed by continuous fluids Improved (8) Hypertension: Qualifiers: Hypertension type: primary hypertension Qualified Code(s): I10 - Essential (primary) hypertension Code(s): I10 - Essential (primary) hypertension Status: Acute Assessment and Plan: -Will hold antihypertensives due to episode of hypotension Time Spent With Patient Time with patient: Greater than 35 minutes Subjective Date/time seen: 09/11/25 09:42 Interval history: 85-year-old female presents the hospital with right knee pain and swelling found to have right knee effusion with repeat cultures pending Patient states pain is not well managed, pain management as adjusted Review of Systems Review of Systems: 12 systems were reviewed and are negativ e except for as per HPI. Exam Narrative: General: No acute distress HEENT: normocephalic, atraumatic. Mucous membranes moist. EOMI, PERRLA, bilateral sclera anicteric, no conjunctival injection. Neck supple without JVD, lymphadenopathy, or bruit. Respiratory: clear to ascultation bilaterally. No rales/rhonic/wheezes. Cardiovascular: Regular rate and rhythm, normal S1-S2 upon ascultation. No murmurs, rubs, or clicks. PMI is nondisplaced, capillary refill less than [address] Abdomen: Soft, round, no pulsatile masses, nondistended and nontender. No rebound, no guarding. No CVA tenderness, no hepatosplenomegaly. Bowel sounds present to all four quadrants. No high pitch or tinkling sounds, resonant to percussion. Extremities: No cyanosis, clubbing, or edema present. Pulses are palpable 2/2. Pulmonary embolus [place] due to pain Neuro: Alert and orientated x 4. PERRLA. Cranial nerves 2-12 intact without focal deficit. Skin: Warm, dry, and intact, without rash, erythema, or lesion. Psych: [place] catheter Objective Data Vital Signs Vital Signs: Vital Signs - 24 hr 09/10/25 12:06 09/10/25 14:00 09/10/25 16:05 Temperature 97.8 F Pulse Rate 75 77 90 Respiratory Rate 18 Blood Pressure 147/75 H Pulse Oximetry 100 Oxygen Delivery 09/10/25 20:00 09/10/25 20:00 09/10/25 20:18 Temperature 100.2 F H Pulse Rate 81 98 Respiratory Rate 18 Blood Pressure 118/57 L Pulse Oximetry 98 Oxygen Delivery Room Air 09/10/25 22:02 09/10/25 23:02 09/11/25 00:00 Temperature 100.2 F H 98.2 F Pulse Rate 81 Respiratory Rate Blood Pressure Pulse Oximetry Oxygen Delivery 09/11/25 04:00 09/11/25 05:05 09/11/25 08:50 Temperature 98 F Pulse Rate 72 67 Respiratory Rate 16 Blood Pressure 120/70 Pulse Oximetry 100 Oxygen Delivery Room Air Intake/Output Intake/Output: Intake & Output 09/08/25 09/09/25 09/10/25 09/11/25 23:59 23:59 23:59 23:59 Intake Total 1400 1119 810 100 Output Total 1200 1175 313 500 Balance 200 -56 497 -400 Meds/Results Medications: Active Medications Generic Name Dose Route Start Last Admin Trade Name Freq PRN Reason Stop Dose Admin Acetaminophen 650 mg 09/10/25 21:14 09/10/25 22:02 Acetaminophen 325 Mg Tablet PO 650 mg Q4H PRN Administration Mild Pain (1-3) or Fever Aspirin 81 mg 09/03/25 09:00 09/11/25 08:49 Aspirin 81 Mg Enteric Tablet PO 81 mg QAM MIROSLAVA Administration Bisacodyl 10 mg 09/02/25 14:24 Bisacodyl 5 Mg Tablet Ec PO QAM PRN Constipation Clindamycin HCl 450 mg 09/08/25 14:00 09/11/25 05:50 Clindamycin Hcl 150 Mg Cap PO 450 mg Q8HR MIROSLAVA Administration Clopidogrel Bisulfate 75 mg 09/05/25 09:00 09/11/25 08:49 Clopidogrel Bisulfate 75 Mg Tablet PO 75 mg QAM MIROSLAVA Administration Dextrose 12.5 gm 09/04/25 13:02 09/04/25 17:30 Dextrose 50% 25 Gm/50 Ml Syringe IV PUSH 12.5 gm PRN PRN Administration Hypoglycemia Protocol Enoxaparin Sodium 40 mg 09/05/25 10:05 09/11/25 08:49 Enoxaparin 40 Mg/0.4 Ml Syringe SUB-Q 40 mg DAILY MIROSLAVA Administration Ferrous Sulfate 325 mg 09/02/25 17:00 09/05/25 08:07 Ferrous Sulfate 325 Mg Tablet PO Not Given On Hold: 09/05/25 09:29 BIDWM MIROSLAVA Glucagon 1 mg 09/04/25 13:02 Glucagon For Inj 1 Mg Vial IM PRN PRN Hypoglycemia Protocol Glucose 15 gm 09/04/25 13:02 Glucose Oral Gel 15 Gm Of Glucse In 37.5 Gm Tube PO PRN PRN Hypoglycemia Protocol Heparin Sodium (Beef Lung) 50 units 09/02/25 09:00 09/11/25 08:49 Heparin Flush 50 Units/5 Ml Syringe IV PUSH 50 units QAM MIROSLAVA Administration Heparin Sodium (Beef Lung) 50 units 09/02/25 06:33 09/03/25 07:22 Heparin Flush 50 Units/5 Ml Syringe IV PUSH 50 units PRN PRN Administration after intermittent infusion Heparin Sodium (Beef Lung) 50 units 09/02/25 06:33 09/06/25 04:38 Heparin Flush 50 Units/5 Ml Syringe IV PUSH 50 units PRN PRN Administration after blood draws Heparin Sodium (Porcine) 500 units 09/02/25 06:33 Heparin Sodium Lock Flush 500 Units/5 Ml Syringe IV PUSH PRN PRN see comments below Hydrochlorothiazide 12.5 mg 09/03/25 09:00 09/05/25 08:08 Hydrochlorothiazide 12.5 Mg Capsule PO Not Given On Hold: 09/05/25 09:29 DAILY MIROSLAVA Dextrose 1,000 mls @ 100 mls/hr 09/04/25 13:02 Dextrose 5% 1,000 Ml IVPB PRN PRN Hypoglycemia Protocol Ceftriaxone Sodium 2 gm/ 100 mls @ 200 mls/hr 09/10/25 12:00 09/10/25 12:54 Sodium Chloride IVPB 200 mls/hr Q24H MIROSLAVA Administration Metoprolol Succinate 25 mg 09/03/25 09:00 09/05/25 08:08 Metoprolol Succinate Ext Rel 25 Mg Tabcr PO Not Given On Hold: 09/05/25 09:29 QAM MIROSLAVA Ondansetron HCl 4 mg 09/08/25 13:30 09/08/25 13:55 Ondansetron Inj 4 Mg/2 Ml Vial IV PUSH 4 mg Q6H PRN Administration Nausea And Vomiting Pantoprazole Sodium 40 mg 09/03/25 09:00 09/11/25 08:49 Pantoprazole 40 Mg Tablet PO 40 mg DAILY MIROSLAVA Administration Polyethylene Glycol 17 gm 09/03/25 09:00 09/11/25 08:50 Polyethylene Glycol 3350 17 Gm Powd.Pack PO 17 gm DAILY MIROSLAVA Administration Prednisone 40 mg 09/10/25 17:05 09/11/25 08:49 Prednisone 20 Mg Tablet PO 40 mg DAILY@0800 MIROSLAVA Administration Pregabalin 50 mg 09/02/25 17:00 Pregabalin (*Crx) 50 Mg Capsule PO On Hold: 09/05/25 09:29 BID PRN NERVE PAIN Sodium Chloride 10 ml 09/02/25 14:00 09/11/25 05:50 Central Line Flush IV PUSH 10 ml Q8HR MIROSLAVA Administration Tramadol HCl 50 mg 09/02/25 14:24 09/10/25 14:18 Tramadol Hcl (*Crx) 50 Mg Tablet PO 50 mg Q12H PRN Administration Pain 4-6 Radiology Results: ITS Impressions Knee X-Ray 09/01/25 20:50 IMPRESSION: No acute fracture or dislocation. Severe degenerative changes. Large suprapatellar joint effusion. Wrist X-Ray 09/01/25 21:04 IMPRESSION: Extensive erosive changes. Head CT 09/04/25 10:55 IMPRESSION: 1. Unchanged small old lacunar infarct at the anterior limb of the right internal capsule. No acute intracranial process. 2. Stable appearance of age-related changes including mild diffuse volume loss and mild to moderate scattered white matter hypoattenuation consistent with chronic small vessel ischemic disease. Venous Doppler Study 09/04/25 19:50 IMPRESSION: There was no sonographic evidence of deep vein thrombosis in the left lower extremity. Brain MRI 09/08/25 07:32 IMPRESSION: 1. Scattered acute infarcts in the deep white matter of the bilateral frontal and parietal lobes. 2. Moderate nonspecific cerebral white matter disease and pontine disease, which likely represents chronic small vessel ischemic disease. Chest X-Ray 09/10/25 12:53 IMPRESSION: 1. No acute cardiopulmonary findings given portable technique. Joint Aspiration/Injection 09/10/25 16:56 IMPRESSION: 1. Successful ultrasound-guided right knee joint aspiration yielding 13 mL of turbid reddish orange-colored fluid. Labs Labs: Laboratory Results - last 24 hr 09/10/25 09/10/25 09/10/25 12:16 12:56 17:36 WBC RBC Hgb Hct MCV MCH MCHC RDW Plt Count MPV Immature Gran % (Auto) Neut % (Auto) Lymph % (Auto) [place] % (Auto) Eos % (Auto) Baso % (Auto) Lymph # (Auto) [place] # (Auto) Eos # (Auto) Baso # (Auto) Abs Immat Gran (auto) Absolute Neuts (auto) Absolute Nucleated RBC Total Counted Neutrophils % (Manual) Band Neutrophils % Lymphocytes % (Manual) Monocytes % (Manual) Eosinophils % (Manual) Nucleated RBC % Abs Neuts (Manual) Abs Lymphs (Manual) Abs Monocytes (Manual) Absolute Eos (Manual) Platelet Estimate Schistocytes Sodium Potassium Chloride Carbon Dioxide Anion Gap BUN Creatinine Estim Creat Clear Calc Estimated GFR Glucose POC Capillary Glucose 104 98 Calcium Magnesium Total Bilirubin AST ALT Alkaline Phosphatase Total Protein Albumin Urine Color Dark yellow Urine Appearance Cloudy H Urine pH 5.5 Ur Specific [place] 1.028 Urine Protein 2+ H Urine Glucose (UA) Negative Urine Ketones Trace H Ur Blood (Man) Negative Urine Nitrate Negative Urine Bilirubin 1+ H Urine Urobilinogen 1.0 Add Ur Microanalysis Reviewed Leukocyte Esterase Rfl Trace H Urine RBC 0-2 Urine WBC 0-5 Ur Squamous Epith Cells Few Urine Bacteria None seen Urine Casts >20 09/10/25 09/11/25 09/11/25 20:25 05:51 07:59 WBC 14.6 H RBC 3.03 L Hgb 9.5 L Hct 29.7 L MCV 98.0 MCH 31.4 MCHC 32.0 RDW 15.9 H Plt Count 409 H MPV 9.2 Immature Gran % (Auto) Not Reportable Neut % (Auto) Not Reportable Lymph % (Auto) Not Reportable [place] % (Auto) Not Reportable Eos % (Auto) Not Reportable Baso % (Auto) Not Reportable Lymph # (Auto) Not Reportable [place] # (Auto) Not Reportable Eos # (Auto) Not Reportable Baso # (Auto) Not Reportable Abs Immat Gran (auto) Not Reportable Absolute Neuts (auto) Not Reportable Absolute Nucleated RBC Not Reportable Total Counted 100 Neutrophils % (Manual) 53 Band Neutrophils % 17 H Lymphocytes % (Manual) 25 Monocytes % (Manual) 3 Eosinophils % (Manual) 1 Nucleated RBC % Not Reportable Abs Neuts (Manual) 10.22 H Abs Lymphs (Manual) 3.65 Abs Monocytes (Manual) 0.43 Absolute Eos (Manual) 0.14 Platelet Estimate Adequate Schistocytes None seen Sodium 132 L Potassium 5.0 Chloride 102 Carbon Dioxide 26 Anion Gap 4 BUN 25 H Creatinine 0.65 L Estim Creat Clear Calc 58 Estimated GFR > 60 Glucose 173 H POC Capillary Glucose 110 H 197 H Calcium 8.2 L Magnesium 1.9 Total Bilirubin 0.4 AST 41 H ALT 13 Alkaline Phosphatase 82 Total Protein 6.9 Albumin 2.5 L Urine Color Urine Appearance Urine pH Ur Specific [place] Urine Protein Urine Glucose (UA) Urine Ketones Ur Blood (Man) Urine Nitrate Urine Bilirubin Urine Urobilinogen Add Ur Microanalysis Leukocyte Esterase Rfl Urine RBC Urine WBC Ur Squamous Epith Cells Urine Bacteria Urine Casts Quality VTE Prophylaxis VTE prophylaxis: mechanical ordered Hospitalist MIPS Advance Care Plan I have confirmed that the patient's Advanced Care Plan is present, code status is documented, or surrogate decision maker is listed in patient medical record.: Yes Medication Reconciliation I have utilized all available resources to obtain, update and review the patients current medications (includes all prescriptions, OTC, herbals, cannabis, and nutritional supplements).: Yes
[2025-09-11] MEDS: HEPARIN SODIUM LOCK FLUSH 500 UNITS/5 ML SYRINGE IV PUSH (11:13)
[2025-09-11] MEDS: ACETAMINOPHEN 325 MG TABLET 650 MG PO ×3 (11:13→21:28)
[2025-09-11] MEDS: LIDOCAINE 5% PATCH 1 PATCH TRANSDERM (11:14)
[2025-09-11] MEDS: cefTRIAXone 2 GM in SODIUM CHLORIDE 0.9% IV 100 ML 200 ML IVPB (11:33)
[2025-09-12] VITALS (9 sets, daily range): BP systolic 142–158; BP diastolic 76–82; PULSE 65–80; RESP 16–21; TEMP 36.6–36.8; O2SAT 98–100
[2025-09-12] MEDS: ACETAMINOPHEN 325 MG TABLET 650 MG PO ×4 (04:57→21:51)
[2025-09-12] MEDS: CLINDAMYCIN HCL 150 MG CAP 450 MG PO ×3 (05:15→21:51)
[2025-09-12] MEDS: CENTRAL LINE FLUSH 10 ML IV PUSH ×3 (05:16→21:51)
[2025-09-12 05:46] LABS: Hematocrit 26.8 % (37.0-47.0); Hemoglobin 8.5 g/dL (12.0-15.0); Mean Corpuscular HGB Conc 31.7 g/dl (32-36); Mean Corpuscular Hemoglobin 30.8 pg (26-34); Mean Corpuscular Volume 97.1 fl (80-100); Platelet Count Result 451 k/mm3 (150-375); Red Blood Count 2.76 M/mm3 (4.2-5.4); White Blood Count 22.5 K/mm3 (4.5-10.0)
[2025-09-12 06:15] LABS: Alanine Aminotransferase 15 U/L (6-35); Albumin Level 2.5 g/dL (3.5-5.1); Alkaline Phosphatase 74 U/L (38-126); Anion Gap 2 mmol/L (4-12); Aspartate Amino Transferase 32 U/L (14-36); Bilirubin,Total 0.2 mg/dL (0.2-1.3); Blood Urea Nitrogen 32 mg/dL (7-17); Calcium 8.2 mg/dL (8.4-10.2); Carbon Dioxide 27 mmol/L (22-30); Chloride 103 mmol/L (98-107); Estimated CRCL calculation 55 ml/min; Estimated Glomerular Filt Rate > 60; Glucose 174 mg/dL (65-110); Magnesium 2.0 mg/dL (1.6-2.3); Potassium 4.2 mmol/L (3.4-5.0); Sodium 132 mmol/L (137-145); Total Protein 6.7 g/dL (6.3-8.2)
[2025-09-12 06:54] LABS: Band Neutrophils Percent 8 % (0-6); Basophils Absolute Manual 0.22 K/mm3 (0.0-0.1); Basophils Percent Manual 1 % (0-1); Eosinophils Absolute Manual 0.22 K/mm3 (0.02-0.50); Eosinophils Percent Manual 1 % (0-4); Lymphocytes Absolute Manual 5.40 K/mm3 (1.1-4.5); Lymphocytes Percent Manual 24 % (18-44); Metamyelocytes Percent 1 %; Monocytes Absolute Manual 1.35 K/mm3 (0.1-0.90); Monocytes Percent Manual 6 % (3-9); Neutrophils Absolute Manual 15.07 K/mm3 (1.3-6.7); Neutrophils Percent Manual 59 % (46-73)
[2025-09-12 06:56] LABS: Schistocytes None Seen
--- NOTE | 2025-09-12 08:21 | P.PNIM_ITS ---
Progress Note: A&P Assessment and Plan (1) Leukocytosis: Code(s): D72.829 - Elevated white blood cell count, unspecified Status: Acute Assessment and Plan: UA from 09/03/2025 shows no growth DC John to prevent infection Start Flomax to with patient having a John catheter for extended wound time Blood cultures pending Acute findings in chest x-ray Currently no identifiable source (2) Acute CVA (cerebrovascular accident): Code(s): I63.9 - Cerebral infarction, unspecified Status: Acute Assessment and Plan: Brain MRI shows Scattered acute infarcts in the deep white matter of the bilateral frontal and parietal lobes. continue Aspirin and Plavix lipid panel: Cholesterol 91, LDL 62, HDL 9, and triglycerides 96. ECHO: EF 70%, Grade 1 diastolic dysfunction Neurology consulted, recommending cardiology consult, spoke to cardiology no need for inpatient consult will order Holter monitor on discharge and follow-up outpatient PT/OT/ST (3) Altered mental status: Qualifiers: Altered mental status type: unspecified Qualified Code(s): R41.82 - Altered mental status, unspecified Code(s): R41.82 - Altered mental status, unspecified Status: Acute Assessment and Plan: Resolved 09/04 nurse reported patient had altered mental status today, unable to wake up, does not follow commands, not answering questions, appeared to have facial drooping code stroke was called s/p Head CT showed old infarcts s/p CXR 09/03 without acute findings. Normal TSH, and ammonia covid/flu/RSV negative UDS negative venous dopplers of BUE and LLE neg medications that can cause sedation were held Brain MRI 09/07- showed Scattered acute infarcts in the deep white matter of the bilateral frontal and parietal lobes. UA, BCX2, Chest [id number], and Ortho consult for right knee. Change antibiotic from Cefdinir to Ceftriaxone 2 gram IVPB q 24. Continue Clindamycin 450 mg PO q 8 hr. 09/10 Knee aspiration fluid culture pending (4) Osteoarthritis of right knee: Code(s): M17.11 - Unilateral primary osteoarthritis, right knee Status: Acute Assessment and Plan: She had arthrocentesis done in the ER. Synovial fluid suggest inflammatory fluid Cultures are negative - CRP 24, ESR 140 Prednisone, No surgical intervention for washout planned at this time, 09/10-Synovial fluid -cultures pending Change antibiotic from Cefdinir to Ceftriaxone 2 gram IVPB q 24. Continue Clindamycin 450 mg PO q 8 hr. (5) Anemia: Code(s): D64.9 - Anemia, unspecified Status: Acute Assessment and Plan: Received 1 unit PRBC on 09/09/25, patient has Antibodies. No signs of acute bleeding Transfuse for hemoglobin less than 7 or symptomatic No need for transfusion at this time (6) Severe protein-calorie malnutrition: Code(s): E43 - Unspecified severe protein-calorie malnutrition Status: Acute Assessment and Plan: Dietitian consulted, appreciate further recommendations Reviews the patient had a PEG tube in the past Consult speech for swallow evaluation started on minced/moist diet with regular liquids - advanced today after tolerating regular foods today. Ensure Plus TID with meals. (7) Urinary tract infection: Code(s): N39.0 - Urinary tract infection, site not specified Status: Acute Assessment and Plan: UA: 1+ leukocyte esterase, 6-10 WBC, many squamous epithelial cells, 1+ bacteria UC negative. Change antibiotic from Cefdinir to Ceftriaxone 2 gram IVPB q 24. Continue Clindamycin 450 mg PO q 8 hr. Leukocytosis worsening Chest x-ray, repeat UA call lactic acid, repeat blood cultures, still waiting on knee and cultures to come back (8) Hypotension: Code(s): I95.9 - Hypotension, unspecified Status: Acute Assessment and Plan: rapid called 09/03 due to hypotension and low urine output patient given IV fluid bolus followed by continuous fluids Improved Patient hyper this morning will restart blood pressure medications (9) Hypertension: Qualifiers: Hypertension type: primary hypertension Qualified Code(s): I10 - Essential (primary) hypertension Code(s): I10 - Essential (primary) hypertension Status: Acute Assessment and Plan: Restarting hydrochlorothiazide (10) Acute pain: Code(s): R52 - Pain, unspecified Status: Acute Assessment and Plan: Restarted home Lyrica Schedule Tylenol and lidocaine patch Time Spent With Patient Time with patient: Greater than 35 minutes Subjective Date/time seen: 09/12/25 08:21 Interval history: 85-year-old female presents the hospital with right knee pain and swelling found to have right knee effusion with repeat cultures pending Patient looks much better today and pain is much better controlled. Will DC John catheter. Start Flomax. Leukocytosis increase this morning knee aspirate culture still pending, chest x- ray, UA lactic acid and blood cultures for Review of Systems Review of Systems: 12 systems were reviewed and are negativ e except for as per HPI. Exam Narrative: General: No acute distress HEENT: normocephalic, atraumatic. Mucous membranes moist. EOMI, PERRLA, bilateral sclera anicteric, no conjunctival injection. Neck supple without JVD, lymphadenopathy, or bruit. Respiratory: clear to ascultation bilaterally. No rales/rhonic/wheezes. Cardiovascular: Regular rate and rhythm, normal S1-S2 upon ascultation. No murmurs, rubs, or clicks. PMI is nondisplaced, capillary refill less than 3 second. Abdomen: Soft, round, no pulsatile masses, nondistended and nontender. No rebound, no guarding. No CVA tenderness, no hepatosplenomegaly. Bowel sounds present to all four quadrants. No high pitch or tinkling sounds, resonant to percussion. Extremities: No cyanosis, clubbing, or edema present. Pulses are palpable 2/2. Pulmonary embolus [place] due to pain right knee swollen however is is not hot to the touch Neuro: Alert and orientated x 4. PERRLA. Cranial nerves 2-12 intact without focal deficit. Skin: Warm, dry, and intact, without rash, erythema, or lesion. Psych: Pleasant John catheter Objective Data Vital Signs Vital Signs: Vital Signs - 24 hr 09/11/25 08:50 09/11/25 12:06 09/11/25 14:00 Temperature 98.1 F Pulse Rate 83 79 Respiratory Rate 16 Blood Pressure 116/62 Pulse Oximetry 99 Oxygen Delivery Room Air 09/11/25 16:05 09/11/25 20:00 09/11/25 20:00 Temperature Pulse Rate 72 80 Respiratory Rate Blood Pressure Pulse Oximetry Oxygen Delivery Room Air 09/11/25 21:37 09/12/25 00:00 09/12/25 04:00 Temperature 98.0 F Pulse Rate 65 65 69 Respiratory Rate 18 Blood Pressure 132/74 Pulse Oximetry 99 Oxygen Delivery 09/12/25 05:27 Temperature 98.2 F Pulse Rate 80 Respiratory Rate 18 Blood Pressure 158/77 H Pulse Oximetry 100 Oxygen Delivery Intake/Output Intake/Output: Intake & Output 09/09/25 09/10/25 09/11/25 09/12/25 23:59 23:59 23:59 23:59 Intake Total 2933 856 1803 250 Output Total 1175 313 910 650 Balance -56 597 874 -400 Meds/Results Medications: Active Medications Generic Name Dose Route Start Last Admin Trade Name Freq PRN Reason Stop Dose Admin Acetaminophen 650 mg 09/11/25 10:00 09/12/25 04:57 Acetaminophen 325 Mg Tablet PO 650 mg Q6H MIROSLAVA Administration Aspirin 81 mg 09/03/25 09:00 09/11/25 08:49 Aspirin 81 Mg Enteric Tablet PO 81 mg QAM MIROSLAVA Administration Bisacodyl 10 mg 09/02/25 14:24 Bisacodyl 5 Mg Tablet Ec PO QAM PRN Constipation Clindamycin HCl 450 mg 09/08/25 14:00 09/12/25 05:15 Clindamycin Hcl 150 Mg Cap PO 450 mg Q8HR MIROSLAVA Administration Clopidogrel Bisulfate 75 mg 09/05/25 09:00 09/11/25 08:49 Clopidogrel Bisulfate 75 Mg Tablet PO 75 mg QAM MIROSLAVA Administration Dextrose 12.5 gm 09/04/25 13:02 09/04/25 17:30 Dextrose 50% 25 Gm/50 Ml Syringe IV PUSH 12.5 gm PRN PRN Administration Hypoglycemia Protocol Enoxaparin Sodium 40 mg 09/05/25 10:05 09/11/25 08:49 Enoxaparin 40 Mg/0.4 Ml Syringe SUB-Q 40 mg DAILY MIROSLAVA Administration Ferrous Sulfate 325 mg 09/02/25 17:00 09/05/25 08:07 Ferrous Sulfate 325 Mg Tablet PO Not Given On Hold: 09/05/25 09:29 BIDWM MIROSLAVA Glucagon 1 mg 09/04/25 13:02 Glucagon For Inj 1 Mg Vial IM PRN PRN Hypoglycemia Protocol Glucose 15 gm 09/04/25 13:02 Glucose Oral Gel 15 Gm Of Glucse In 37.5 Gm Tube PO PRN PRN Hypoglycemia Protocol Heparin Sodium (Beef Lung) 50 units 09/02/25 09:00 09/11/25 08:49 Heparin Flush 50 Units/5 Ml Syringe IV PUSH 50 units QAM MIROSLAVA Administration Heparin Sodium (Beef Lung) 50 units 09/02/25 06:33 09/03/25 07:22 Heparin Flush 50 Units/5 Ml Syringe IV PUSH 50 units PRN PRN Administration after intermittent infusion Heparin Sodium (Beef Lung) 50 units 09/02/25 06:33 09/12/25 05:16 Heparin Flush 50 Units/5 Ml Syringe IV PUSH 50 units PRN PRN Administration after blood draws Heparin Sodium (Porcine) 500 units 09/02/25 06:33 09/11/25 11:13 Heparin Sodium Lock Flush 500 Units/5 Ml Syringe IV PUSH 500 units PRN PRN Administration see comments below Hydrochlorothiazide 12.5 mg 09/03/25 09:00 09/05/25 08:08 Hydrochlorothiazide 12.5 Mg Capsule PO Not Given On Hold: 09/05/25 09:29 DAILY MIROSLAVA Dextrose 1,000 mls @ 100 mls/hr 09/04/25 13:02 Dextrose 5% 1,000 Ml IVPB PRN PRN Hypoglycemia Protocol Ceftriaxone Sodium 2 gm/ 100 mls @ 200 mls/hr 09/10/25 12:00 09/11/25 12:03 Sodium Chloride IVPB Infused Q24H MIROSLAVA Infusion Lidocaine 1 patch 09/11/25 10:00 09/11/25 11:14 Lidocaine 5% Patch TRANSDERM 1 patch DAILY MIROSLAVA Administration Metoprolol Succinate 25 mg 09/03/25 09:00 09/05/25 08:08 Metoprolol Succinate Ext Rel 25 Mg Tabcr PO Not Given On Hold: 09/05/25 09:29 QAM [facility] Ondansetron HCl 4 mg 09/08/25 13:30 09/08/25 13:55 Ondansetron Inj 4 Mg/2 Ml Vial IV PUSH 4 mg Q6H PRN Administration Nausea And Vomiting Pantoprazole Sodium 40 mg 09/03/25 09:00 09/11/25 08:49 Pantoprazole 40 Mg Tablet PO 40 mg DAILY MIROSLAVA Administration Polyethylene Glycol 17 gm 09/03/25 09:00 09/11/25 08:50 Polyethylene Glycol 3350 17 Gm Powd.Pack PO 17 gm DAILY MIROSLAVA Administration Prednisone 40 mg 09/10/25 17:05 09/11/25 08:49 Prednisone 20 Mg Tablet PO 40 mg DAILY@0800 MIROSLAVA Administration Pregabalin 50 mg 09/02/25 17:00 Pregabalin (*Crx) 50 Mg Capsule PO On Hold: 09/05/25 09:29 BID PRN NERVE PAIN Sodium Chloride 10 ml 09/02/25 14:00 09/12/25 05:16 Central Line Flush IV PUSH 10 ml Q8HR MIROSLAVA Administration Tramadol HCl 50 mg 09/02/25 14:24 09/10/25 14:18 Tramadol Hcl (*Crx) 50 Mg Tablet PO 50 mg Q12H PRN Administration Pain 4-6 Radiology Results: ITS Impressions Knee X-Ray 09/01/25 20:50 IMPRESSION: No acute fracture or dislocation. Severe degenerative changes. Large suprapatellar joint effusion. Wrist X-Ray 09/01/25 21:04 IMPRESSION: Extensive erosive changes. Head CT 09/04/25 10:55 IMPRESSION: 1. Unchanged small old lacunar infarct at the anterior limb of the right internal capsule. No acute intracranial process. 2. Stable appearance of age-related changes including mild diffuse volume loss and mild to moderate scattered white matter hypoattenuation consistent with chronic small vessel ischemic disease. Venous Doppler Study 09/04/25 19:50 IMPRESSION: There was no sonographic evidence of deep vein thrombosis in the left lower extremity. Brain MRI 09/08/25 07:32 IMPRESSION: 1. Scattered acute infarcts in the deep white matter of the bilateral frontal and parietal lobes. 2. Moderate nonspecific cerebral white matter disease and pontine disease, which likely represents chronic small vessel ischemic disease. Chest X-Ray 09/10/25 12:53 IMPRESSION: 1. No acute cardiopulmonary findings given portable technique. Joint Aspiration/Injection 09/10/25 16:56 IMPRESSION: 1. Successful ultrasound-guided right knee joint aspiration yielding 13 mL of turbid reddish orange-colored fluid. Labs Labs: Laboratory Results - last 24 hr 09/11/25 09/11/25 09/11/25 11:47 16:38 21:34 WBC RBC Hgb Hct MCV MCH MCHC RDW Plt Count MPV Immature Gran % (Auto) Neut % (Auto) Lymph % (Auto) [place] % (Auto) Eos % (Auto) Baso % (Auto) Lymph # (Auto) [place] # (Auto) Eos # (Auto) Baso # (Auto) Abs Immat Gran (auto) Absolute Neuts (auto) Absolute Nucleated RBC Neutrophils % (Manual) Band Neutrophils % Lymphocytes % (Manual) Monocytes % (Manual) Eosinophils % (Manual) Basophils % (Manual) Metamyelocytes % Nucleated RBC % Abs Neuts (Manual) Abs Lymphs (Manual) Abs Monocytes (Manual) Absolute Eos (Manual) Abs Basophils (Manual) Nucleated RBCs Platelet Estimate Schistocytes Sodium Potassium Chloride Carbon Dioxide Anion Gap BUN Creatinine Estim Creat Clear Calc Estimated GFR Glucose POC Capillary Glucose 232 H 181 H 209 H Calcium Magnesium Total Bilirubin AST ALT Alkaline Phosphatase Total Protein Albumin 09/12/25 09/12/25 05:18 07:11 WBC 22.5 H RBC 2.76 L Hgb 8.5 L Hct 26.8 L MCV 97.1 MCH 30.8 MCHC 31.7 L RDW 15.6 H Plt Count 451 H MPV 9.1 Immature Gran % (Auto) Not Reportable Neut % (Auto) Not Reportable Lymph % (Auto) Not Reportable [place] % (Auto) Not Reportable Eos % (Auto) Not Reportable Baso % (Auto) Not Reportable Lymph # (Auto) Not Reportable [place] # (Auto) Not Reportable Eos # (Auto) Not Reportable Baso # (Auto) Not Reportable Abs Immat Gran (auto) Not Reportable Absolute Neuts (auto) Not Reportable Absolute Nucleated RBC Not Reportable Neutrophils % (Manual) 59 Band Neutrophils % 8 H Lymphocytes % (Manual) 24 Monocytes % (Manual) 6 Eosinophils % (Manual) 1 Basophils % (Manual) 1 Metamyelocytes % 1 Nucleated RBC % Not Reportable Abs Neuts (Manual) 15.07 H Abs Lymphs (Manual) 5.40 H Abs Monocytes (Manual) 1.35 H Absolute Eos (Manual) 0.22 Abs Basophils (Manual) 0.22 H Nucleated RBCs 1 Platelet Estimate Increased Schistocytes None seen Sodium 132 L Potassium 4.2 Chloride 103 Carbon Dioxide 27 Anion Gap 2 L BUN 32 H Creatinine 0.69 L Estim Creat Clear Calc 55 Estimated GFR > 60 Glucose 174 H POC Capillary Glucose 144 H Calcium 8.2 L Magnesium 2.0 Total Bilirubin 0.2 AST 32 ALT 15 Alkaline Phosphatase 74 Total Protein 6.7 Albumin 2.5 L Quality VTE Prophylaxis VTE prophylaxis: mechanical ordered and pharmacologic ordered
[2025-09-12] MEDS: ASPIRIN 81 MG ENTERIC TABLET PO (08:43)
[2025-09-12] MEDS: ENOXAPARIN 40 MG/0.4 ML SYRINGE SUB-Q (08:43)
[2025-09-12] MEDS: LIDOCAINE 5% PATCH 1 PATCH TRANSDERM (08:43)
[2025-09-12] MEDS: PANTOPRAZOLE 40 MG TABLET PO (08:43)
[2025-09-12] MEDS: CLOPIDOGREL BISULFATE 75 MG TABLET PO (08:43)
--- NOTE | 2025-09-12 10:33 | PCNFU ---
Nutrition Follow-Up Complete: Severe Protein Calorie Malnutrition as related to protein-energy intake with increased protein-energy needs in setting of chronic disease as evidenced by minimal oral intake for > 1-2 months; significant weight loss of 16% (30 ibs) in 2--3months; severe subcutaneous fat loss (orbital fat pads) and severe muscle wasting (temporalis, clavicle) Goal: Meet estimated nutritional needs. Patient is progressing towards goal. We will continue current goal. Pt current nutrition is Regular with diet supplements. Last recorded weight is 67.6 kg, stable Bowel Motility: Last reported BM 09/11 Labs Reviewed: Glu 174, BUN 32, Cr 0.69, Na 132, Alb 2.5, Hgb 8.5, Hct 26.8 Meds Noted: Protonix, Lovenox, Miralax Skin: WNL Additional Notes: Patient remains on a regular diet. Oral intake improving > 75% of breakfast today. Diet supplements of Ensure Plus High Protein TID providing an additional 350 kcal and 20 gm protein. Agree with diet orders. Will monitor weight, labs, skin, diet orders, meds every 5 days.
[2025-09-12] MEDS: cefTRIAXone 2 GM in SODIUM CHLORIDE 0.9% IV 100 ML 200 ML IVPB (11:56)
[2025-09-12] MEDS: TAMSULOSIN HCL 0.4 MG CAPSULE PO (11:57)
[2025-09-12] MEDS: ONDANSETRON INJ 4 MG/2 ML VIAL IV PUSH ×2 (15:21→20:18)
[2025-09-12 15:35] LABS: Add Urine Microscopic? YES; Appearance Urine Cloudy (Clear); Glucose Urine UA Negative (Negative); Leukocyte Esterase Ur 1+ LEU/UL (Negative); Need Manual Microscopic Reviewed; Nitrate Urine Negative (Negative); Specific Grav Ur 1.023 (1.001-1.035)
--- NOTE | 2025-09-12 15:55 | PCOTNOTE ---
Start of session patient has episode of emesis. RN notified and session held.
[2025-09-12] MEDS: SENNOSIDES 8.6 MG TABLET PO (21:51)
[2025-09-13] VITALS: PULSE 67
[2025-09-13 04:00] VITALS: PULSE 60
[2025-09-13] MEDS: CENTRAL LINE FLUSH 10 ML IV PUSH ×3 (04:36→22:04)
[2025-09-13] MEDS: ONDANSETRON INJ 4 MG/2 ML VIAL IV PUSH ×3 (04:36→20:06)
[2025-09-13] MEDS: ACETAMINOPHEN 325 MG TABLET 650 MG PO ×3 (04:36→22:04)
[2025-09-13 05:25] VITALS: BP 143/76; PULSE 59; RESP 16; TEMP 36.2; O2SAT 100
[2025-09-13 05:29] LABS: Hematocrit 26.8 % (37.0-47.0); Hemoglobin 8.5 g/dL (12.0-15.0); Mean Corpuscular HGB Conc 31.7 g/dl (32-36); Mean Corpuscular Hemoglobin 31.0 pg (26-34); Mean Corpuscular Volume 97.8 fl (80-100); Platelet Count Result 519 k/mm3 (150-375); Red Blood Count 2.74 M/mm3 (4.2-5.4); White Blood Count 26.5 K/mm3 (4.5-10.0)
[2025-09-13 05:58] LABS: Anion Gap 2 mmol/L (4-12); Blood Urea Nitrogen 25 mg/dL (7-17); Calcium 8.1 mg/dL (8.4-10.2); Carbon Dioxide 30 mmol/L (22-30); Chloride 103 mmol/L (98-107); Estimated CRCL calculation 63 ml/min; Estimated Glomerular Filt Rate > 60; Glucose 88 mg/dL (65-110); Magnesium 2.0 mg/dL (1.6-2.3); Potassium 4.4 mmol/L (3.4-5.0); Sodium 135 mmol/L (137-145)
[2025-09-13] MEDS: CLINDAMYCIN HCL 150 MG CAP 450 MG PO ×2 (06:29→14:28)
[2025-09-13] MEDS: TAMSULOSIN HCL 0.4 MG CAPSULE PO (08:52)
[2025-09-13] MEDS: CLOPIDOGREL BISULFATE 75 MG TABLET PO (08:52)
[2025-09-13] MEDS: ENOXAPARIN 40 MG/0.4 ML SYRINGE SUB-Q (08:52)
[2025-09-13] MEDS: ASPIRIN 81 MG ENTERIC TABLET PO (08:53)
[2025-09-13] MEDS: LIDOCAINE 5% PATCH 1 PATCH TRANSDERM (08:53)
[2025-09-13] MEDS: PANTOPRAZOLE 40 MG TABLET PO (08:53)
--- NOTE | 2025-09-13 08:57 | P.PNIM_ITS ---
Progress Note: A&P Assessment and Plan (1) Leukocytosis: Code(s): D72.829 - Elevated white blood cell count, unspecified Status: Acute Assessment and Plan: UA from 09/03/2025 shows no growth DC John to prevent infection Start Flomax to with patient having a John catheter for extended wound time, patient was able to urinate Blood cultures pending No Acute findings in chest x-ray port without erythema Currently no identifiable source, likely due to steroids 09/10 Knee aspiration fluid culture pending (2) Acute CVA (cerebrovascular accident): Code(s): I63.9 - Cerebral infarction, unspecified Status: Acute Assessment and Plan: Brain MRI shows Scattered acute infarcts in the deep white matter of the bilateral frontal and parietal lobes. continue Aspirin and Plavix lipid panel: Cholesterol 91, LDL 62, HDL 9, and triglycerides 96. ECHO: EF 70%, Grade 1 diastolic dysfunction Neurology consulted, recommending cardiology consult, spoke to cardiology no need for inpatient consult Holter monitor on discharge and follow-up outpatient PT/OT/ST (3) Altered mental status: Qualifiers: Altered mental status type: unspecified Qualified Code(s): R41.82 - Altered mental status, unspecified Code(s): R41.82 - Altered mental status, unspecified Status: Acute Assessment and Plan: Resolved 09/04 nurse reported patient had altered mental status today, unable to wake up, does not follow commands, not answering questions, appeared to have facial drooping code stroke was called s/p Head CT showed old infarcts s/p CXR 09/03 without acute findings. Normal TSH, and ammonia covid/flu/RSV negative UDS negative venous dopplers of BUE and LLE neg medications that can cause sedation were held Brain MRI 09/07- showed Scattered acute infarcts in the deep white matter of the bilateral frontal and parietal lobes. UA, BCX2, Chest [id number], and Ortho consult for right knee. Change antibiotic from Cefdinir to Ceftriaxone 2 gram IVPB q 24. Continue Clindamycin 450 mg PO q 8 hr. (4) Osteoarthritis of right knee: Code(s): M17.11 - Unilateral primary osteoarthritis, right knee Status: Acute Assessment and Plan: She had arthrocentesis done in the ER. Synovial fluid suggest inflammatory fluid Cultures are negative final results - CRP 24, ESR 140 Prednisone, No surgical intervention for washout planned at this time, 09/10-blood cultures no growth today 09/10-Synovial fluid -cultures pending Change antibiotic from Cefdinir to Ceftriaxone 2 gram IVPB q 24. Continue Clindamycin 450 mg PO q 8 hr. (5) Anemia: Code(s): D64.9 - Anemia, unspecified Status: Acute Assessment and Plan: Hemoglobin stable Received 1 unit PRBC on 09/09/25, patient has Antibodies. No signs of acute bleeding Transfuse for hemoglobin less than 7 or symptomatic No need for transfusion at this time (6) Severe protein-calorie malnutrition: Code(s): E43 - Unspecified severe protein-calorie malnutrition Status: Acute Assessment and Plan: Dietitian consulted, appreciate further recommendations Reviews the patient had a PEG tube in the past Regular diet Ensure Plus TID with meals. (7) Urinary tract infection: Code(s): N39.0 - Urinary tract infection, site not specified Status: Acute Assessment and Plan: UA: 1+ leukocyte esterase, 6-10 WBC, many squamous epithelial cells, 1+ bacteria UC negative. Change antibiotic from Cefdinir to Ceftriaxone 2 gram IVPB q 24. Continue Clindamycin 450 mg PO q 8 hr. (8) Hypotension: Code(s): I95.9 - Hypotension, unspecified Status: Acute Assessment and Plan: rapid called 09/03 due to hypotension and low urine output Improved Restarted hypertensive medications (9) Hypertension: Qualifiers: Hypertension type: primary hypertension Qualified Code(s): I10 - Essential (primary) hypertension Code(s): I10 - Essential (primary) hypertension Status: Acute Assessment and Plan: Restarting hydrochlorothiazide (10) Acute pain: Code(s): R52 - Pain, unspecified Status: Acute Assessment and Plan: Restarted home Lyrica Schedule Tylenol and lidocaine patch Time Spent With Patient Time with patient: Greater than 35 minutes Subjective Date/time seen: 09/13/25 08:57 Interval history: 85-year-old female presents the hospital with right knee pain and swelling found to have right knee effusion with repeat cultures pending Patient looks much better today and pain is much better controlled. Leukocytosis increasing likely due to steroids, no signs of new infection Waiting for cultures to back John was removed yesterday patient is able to urinate, patient has no complaints today Review of Systems Review of Systems: 12 systems were reviewed and are negativ e except for as per HPI. Exam Narrative: General: No acute distress HEENT: normocephalic, atraumatic. Mucous membranes moist. EOMI, PERRLA, bilateral sclera anicteric, no conjunctival injection. Neck supple without JVD, lymphadenopathy, or bruit. Respiratory: clear to ascultation bilaterally. No rales/rhonic/wheezes. Port Cardiovascular: Regular rate and rhythm, normal S1-S2 upon ascultation. No murmurs, rubs, or clicks. PMI is nondisplaced, capillary refill less than 3 second. Abdomen: Soft, round, no pulsatile masses, nondistended and nontender. No rebound, no guarding. No CVA tenderness, no hepatosplenomegaly. Bowel sounds present to all four quadrants. No high pitch or tinkling sounds, resonant to percussion. Extremities: No cyanosis, clubbing, or edema present. Pulses are palpable 2/2. Pulmonary embolus sanford due to pain right knee swollen however is is not hot to the touch Neuro: Alert and orientated x 4. PERRLA. Cranial nerves 2-12 intact without focal deficit. Skin: Warm, dry, and intact, without rash, erythema, or lesion. Psych: Pleasant Objective Data Vital Signs Vital Signs: Vital Signs - 24 hr 09/12/25 12:00 09/12/25 13:59 09/12/25 16:00 Temperature 97.9 F Pulse Rate 74 73 72 Respiratory Rate 16 Blood Pressure 142/76 H Pulse Oximetry 98 Oxygen Delivery 09/12/25 20:00 09/12/25 20:00 09/12/25 20:03 Temperature 97.8 F Pulse Rate 80 77 Respiratory Rate 21 H Blood Pressure 142/82 H Pulse Oximetry 100 Oxygen Delivery Room Air 09/13/25 00:00 09/13/25 04:00 09/13/25 05:25 Temperature 97.1 F L Pulse Rate 67 60 59 L Respiratory Rate 16 Blood Pressure 143/76 H Pulse Oximetry 100 Oxygen Delivery Intake/Output Intake/Output: Intake & Output 09/10/25 09/11/25 09/12/25 09/13/25 23:59 23:59 23:59 23:59 Intake Total 910 1784 1807 120 Output Total 313 910 860 600 Balance 597 874 947 -480 Meds/Results Medications: Active Medications Generic Name Dose Route Start Last Admin Trade Name Freq PRN Reason Stop Dose Admin Acetaminophen 650 mg 09/11/25 10:00 09/13/25 04:36 Acetaminophen 325 Mg Tablet PO 650 mg Q6H MIROSLAVA Administration Aspirin 81 mg 09/03/25 09:00 09/13/25 08:53 Aspirin 81 Mg Enteric Tablet PO 81 mg QAM MIROSLAVA Administration Bisacodyl 10 mg 09/02/25 14:24 Bisacodyl 5 Mg Tablet Ec PO QAM PRN Constipation Clindamycin HCl 450 mg 09/08/25 14:00 09/13/25 06:29 Clindamycin Hcl 150 Mg Cap PO 450 mg Q8HR MIROSLAVA Administration Clopidogrel Bisulfate 75 mg 09/05/25 09:00 09/13/25 08:52 Clopidogrel Bisulfate 75 Mg Tablet PO 75 mg QAM MIROSLAVA Administration Dextrose 12.5 gm 09/04/25 13:02 09/04/25 17:30 Dextrose 50% 25 Gm/50 Ml Syringe IV PUSH 12.5 gm PRN PRN Administration Hypoglycemia Protocol Enoxaparin Sodium 40 mg 09/05/25 10:05 09/13/25 08:52 Enoxaparin 40 Mg/0.4 Ml Syringe SUB-Q 40 mg DAILY MIROSLAVA Administration Ferrous Sulfate 325 mg 09/02/25 17:00 09/05/25 08:07 Ferrous Sulfate 325 Mg Tablet PO Not Given On Hold: 09/05/25 09:29 BIDWM MIROSLAVA Glucagon 1 mg 09/04/25 13:02 Glucagon For Inj 1 Mg Vial IM PRN PRN Hypoglycemia Protocol Glucose 15 gm 09/04/25 13:02 Glucose Oral Gel 15 Gm Of Glucse In 37.5 Gm Tube PO PRN PRN Hypoglycemia Protocol Heparin Sodium (Beef Lung) 50 units 09/02/25 09:00 09/13/25 08:53 Heparin Flush 50 Units/5 Ml Syringe IV PUSH 50 units QAM MIROSLAVA Administration Heparin Sodium (Beef Lung) 50 units 09/02/25 06:33 09/03/25 07:22 Heparin Flush 50 Units/5 Ml Syringe IV PUSH 50 units PRN PRN Administration after intermittent infusion Heparin Sodium (Beef Lung) 50 units 09/02/25 06:33 09/12/25 05:16 Heparin Flush 50 Units/5 Ml Syringe IV PUSH 50 units PRN PRN Administration after blood draws Heparin Sodium (Porcine) 500 units 09/02/25 06:33 09/11/25 11:13 Heparin Sodium Lock Flush 500 Units/5 Ml Syringe IV PUSH 500 units PRN PRN Administration see comments below Hydrochlorothiazide 12.5 mg 09/03/25 09:00 09/13/25 08:52 Hydrochlorothiazide 12.5 Mg Capsule PO 12.5 mg DAILY MIROSLAVA Administration Dextrose 1,000 mls @ 100 mls/hr 09/04/25 13:02 Dextrose 5% 1,000 Ml IVPB PRN PRN Hypoglycemia Protocol Ceftriaxone Sodium 2 gm/ 100 mls @ 200 mls/hr 09/10/25 12:00 09/12/25 11:56 Sodium Chloride IVPB 200 mls/hr Q24H MIROSLAVA Administration Lidocaine 1 patch 09/11/25 10:00 09/13/25 08:53 Lidocaine 5% Patch TRANSDERM 1 patch DAILY MIROSLAVA Administration Metoprolol Succinate 25 mg 09/03/25 09:00 09/05/25 08:08 Metoprolol Succinate Ext Rel 25 Mg Tabcr PO Not Given On Hold: 09/05/25 09:29 QAM [facility] Ondansetron HCl 4 mg 09/08/25 13:30 09/08/25 13:55 Ondansetron Inj 4 Mg/2 Ml Vial IV PUSH 4 mg Q6H PRN Administration Nausea And Vomiting Ondansetron HCl 4 mg 09/12/25 20:00 09/13/25 04:36 Ondansetron Inj 4 Mg/2 Ml Vial IV PUSH 4 mg 05,13,20 MIROSLAVA Administration Pantoprazole Sodium 40 mg 09/03/25 09:00 09/13/25 08:53 Pantoprazole 40 Mg Tablet PO 40 mg DAILY [facility] Administration Polyethylene Glycol 17 gm 09/03/25 09:00 09/13/25 08:55 Polyethylene Glycol 3350 17 Gm Powd.Pack PO Not Given DAILY [facility] Prednisone 40 mg 09/10/25 17:05 09/13/25 08:52 Prednisone 20 Mg Tablet PO 40 mg DAILY@0800 [facility] Administration Pregabalin 50 mg 09/02/25 17:00 Pregabalin (*Crx) 50 Mg Capsule PO BID PRN NERVE PAIN Senna 8.6 mg 09/12/25 21:00 09/12/25 21:51 Sennosides 8.6 Mg Tablet PO 8.6 mg HS [facility] Administration Sodium Chloride 10 ml 09/02/25 14:00 09/13/25 04:36 Central Line Flush IV PUSH 10 ml Q8HR [facility] Administration Tamsulosin HCl 0.4 mg 09/13/25 09:00 09/13/25 08:52 Tamsulosin Hcl 0.4 Mg Capsule PO 0.4 mg QAM [facility] Administration Tramadol HCl 50 mg 09/02/25 14:24 09/10/25 14:18 Tramadol Hcl (*Crx) 50 Mg Tablet PO 50 mg Q12H PRN Administration Pain 4-6 Radiology Results: ITS Impressions Knee X-Ray 09/01/25 20:50 IMPRESSION: No acute fracture or dislocation. Severe degenerative changes. Large suprapatellar joint effusion. Wrist X-Ray 09/01/25 21:04 IMPRESSION: Extensive erosive changes. Head CT 09/04/25 10:55 IMPRESSION: 1. Unchanged small old lacunar infarct at the anterior limb of the right internal capsule. No acute intracranial process. 2. Stable appearance of age-related changes including mild diffuse volume loss and mild to moderate scattered white matter hypoattenuation consistent with chronic small vessel ischemic disease. Venous Doppler Study 09/04/25 19:50 IMPRESSION: There was no sonographic evidence of deep vein thrombosis in the left lower ex tremity. Brain MRI 09/08/25 07:32 IMPRESSION: 1. Scattered acute infarcts in the deep white matter of the bilateral frontal and parietal lobes. 2. Moderate nonspecific cerebral white matter disease and pontine disease, which likely represents chronic small vessel ischemic disease. Joint Aspiration/Injection 09/10/25 16:56 IMPRESSION: 1. Successful ultrasound-guided right knee joint aspiration yielding 13 mL of turbid reddish orange-colored fluid. Chest X-Ray 09/12/25 08:56 Impression: No acute cardiopulmonary abnormality. Labs Labs: Laboratory Results - last 24 hr 09/09/25 09/12/25 09/12/25 06:30 09:29 12:38 WBC RBC Hgb Hct MCV MCH MCHC RDW Plt Count MPV Sodium Potassium Chloride Carbon Dioxide Anion Gap BUN Creatinine Estim Creat Clear Calc Estimated GFR Glucose Lactic Acid 2.3 H 1.6 Calcium Magnesium Urine Color Urine Appearance Urine pH Ur Specific [place] Urine Protein Urine Glucose (UA) Urine Ketones Ur Blood (Man) Urine Nitrate Urine Bilirubin Urine Urobilinogen Add Ur Microanalysis Leukocyte Esterase Rfl Urine RBC Urine WBC Ur Squamous Epith Cells Urine Bacteria Urine Casts Enhanced Crossmatch See Detail 09/12/25 09/13/25 14:28 04:43 WBC 26.5 H RBC 2.74 L Hgb 8.5 L Hct 26.8 L MCV 97.8 MCH 31.0 MCHC 31.7 L RDW 15.8 H Plt Count 519 H MPV 9.3 Sodium 135 L Potassium 4.4 Chloride 103 Carbon Dioxide 30 Anion Gap 2 L BUN 25 H Creatinine 0.59 L Estim Creat Clear Calc 63 Estimated GFR > 60 Glucose 88 Lactic Acid Calcium 8.1 L Magnesium 2.0 Urine Color Yellow Urine Appearance Cloudy H Urine pH 6.0 Ur Specific [place] 1.023 Urine Protein 1+ H Urine Glucose (UA) Negative Urine Ketones Negative Ur Blood (Man) Negative Urine Nitrate Negative Urine Bilirubin Negative Urine Urobilinogen 0.2 Add Ur Microanalysis Reviewed Leukocyte Esterase Rfl 1+ H Urine RBC 0-2 Urine WBC 0-5 Ur Squamous Epith Cells Many H Urine Bacteria 1+ H Urine Casts 3-5 Enhanced Crossmatch Quality VTE Prophylaxis VTE prophylaxis: mechanical ordered and pharmacologic ordered
[2025-09-13 09:30] VITALS: PULSE 68
[2025-09-13] MEDS: cefTRIAXone 2 GM in SODIUM CHLORIDE 0.9% IV 100 ML 200 ML IVPB (12:20)
[2025-09-13 14:00] VITALS: BP 137/75; PULSE 72; RESP 18; TEMP 36.6; O2SAT 100
[2025-09-13 20:02] VITALS: BP 130/77; PULSE 75; RESP 16; TEMP 36.7; O2SAT 100
[2025-09-13] MEDS: SENNOSIDES 8.6 MG TABLET PO (22:04)
[2025-09-14] VITALS (8 sets, daily range): BP systolic 133–155; BP diastolic 72–81; PULSE 64–76; RESP 16–18; TEMP 36.4–36.6; O2SAT 97–100
[2025-09-14] MEDS: CENTRAL LINE FLUSH 10 ML IV PUSH ×3 (04:32→20:17)
[2025-09-14] MEDS: ONDANSETRON INJ 4 MG/2 ML VIAL IV PUSH ×3 (04:32→20:17)
[2025-09-14] MEDS: ACETAMINOPHEN 325 MG TABLET 650 MG PO ×4 (04:32→20:17)
[2025-09-14] MEDS: CLINDAMYCIN HCL 150 MG CAP 450 MG PO (05:27)
[2025-09-14 05:54] LABS: Hematocrit 28.2 % (37.0-47.0); Hemoglobin 8.8 g/dL (12.0-15.0); Mean Corpuscular HGB Conc 31.2 g/dl (32-36); Mean Corpuscular Hemoglobin 30.9 pg (26-34); Mean Corpuscular Volume 98.9 fl (80-100); Platelet Count Result 565 k/mm3 (150-375); Red Blood Count 2.85 M/mm3 (4.2-5.4); White Blood Count 32.3 K/mm3 (4.5-10.0)
[2025-09-14 06:11] LABS: Anion Gap 2 mmol/L (4-12); Blood Urea Nitrogen 29 mg/dL (7-17); Calcium 7.9 mg/dL (8.4-10.2); Carbon Dioxide 29 mmol/L (22-30); Chloride 102 mmol/L (98-107); Estimated CRCL calculation 55 ml/min; Estimated Glomerular Filt Rate > 60; Glucose 85 mg/dL (65-110); Magnesium 1.8 mg/dL (1.6-2.3); Potassium 4.4 mmol/L (3.4-5.0); Sodium 133 mmol/L (137-145)
--- NOTE | 2025-09-14 09:27 | P.PNIM_ITS ---
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 Synovial fluid suggest inflammatory fluid Cultures are negative final results - CRP 24, ESR 140 Prednisone, No surgical intervention for washout planned at this time, 09/10-blood cultures no growth 09/10-Synovial fluid with inflammatory changes more suggestive of RA than septic joint, aerobic culture negative, anaerobic culture pending 09/14- D/c ceftriaxone due to negative aerobic culture, continue clindamycin IV due to intolerance to PO form, pending negative anaerobic culture (2) Leukocytosis: Code(s): D72.829 - Elevated white blood cell count, unspecified Status: Acute Assessment and Plan: UA from 09/03/2025 shows no growth Blood C/s preliminary is negative 09/10 Knee aspiration fluid culture negative for aerobic growth as of 09/14, pending for anaerobic growth as of 09/14 (3) Acute CVA (cerebrovascular accident): Code(s): I63.9 - Cerebral infarction, unspecified Status: Acute Assessment and Plan: Brain MRI shows Scattered acute infarcts in the deep white matter of the bilateral frontal and parietal lobes. continue Aspirin and Plavix lipid panel: Cholesterol 91, LDL 62, HDL 9, and triglycerides 96. ECHO: EF 70%, Grade 1 diastolic dysfunction Neurology consulted, recommending cardiology consult, spoke to cardiology no need for inpatient consult Telemetry, 30-day event monitor as outpatient PT/OT/ST (4) Altered mental status: Qualifiers: Altered mental status type: unspecified Qualified Code(s): R41.82 - Altered mental status, unspecified Code(s): R41.82 - Altered mental status, unspecified Status: Acute Assessment and Plan: Resolved 09/04 nurse reported patient had altered mental status today, unable to wake up, does not follow commands, not answering questions, appeared to have facial drooping code stroke was called s/p Head CT showed old infarcts s/p CXR 09/03 without acute findings. Normal TSH, and ammonia covid/flu/RSV negative UDS negative venous dopplers of BUE and LLE neg medications that can cause sedation were held Brain MRI 09/07- showed Scattered acute infarcts in the deep white matter of the bilateral frontal and parietal lobes. (5) Anemia: Code(s): D64.9 - Anemia, unspecified Status: Acute Assessment and Plan: Hemoglobin stable Received 1 unit PRBC on 09/09/25, patient has Antibodies. No signs of acute bleeding Transfuse for hemoglobin less than 7 or symptomatic No need for transfusion at this time (6) Severe protein-calorie malnutrition: Code(s): E43 - Unspecified severe protein-calorie malnutrition Status: Acute Assessment and Plan: Dietitian consulted, appreciate further recommendations Reviews the patient had a PEG tube in the past Regular diet Ensure Plus TID with meals. (7) Hypotension: Code(s): I95.9 - Hypotension, unspecified Status: Acute Assessment and Plan: rapid called 09/03 due to hypotension and low urine output Improved Restarted hypertensive medications (8) Hypertension: Qualifiers: Hypertension type: primary hypertension Qualified Code(s): I10 - Essential (primary) hypertension Code(s): I10 - Essential (primary) hypertension Status: Acute Assessment and Plan: Restarting hydrochlorothiazide Subjective Date/time seen: 09/14/25 09:27 Interval history: Pain in right knee pain improving. Was able to stand with assist. Left shoulder is also painful but not swollen. Chronic. Hx of RA for years. Port placed for Remicade infusions. C/o severe nausea after each dose of PO clinidamycin. Denied chest pain, sob, GI/ issues. Review of Systems Review of Systems: All systems reviewed & are unremarkable except as noted in HPI and below Exam Narrative: HEENT: PERRL, sclerae nonicteric, pharyngeal mucosa pink and intact NECK: No JVD CHEST: Clear to auscultation. Normal effort HEART: NL S1/S2, regular, no murmur ABDOMEN: BS+, soft, nontender, no mass, no bruits EXTREMITIES: No cyanosis, edema, or clubbing NEUROLOGIC: CN intact and symmetric to inspection. MUSCULOSKELETAL: Bony enlargement of right knee with moderate effusion, tender to palpation, mild increased warmth, left shoulder with tenderness to palpation, severely limited ROM due to pain, moderate ulnar deviation of fingers with Josie nodes of hands PSYCH: Alert. Oriented to person, place, and time Objective Data Vital Signs Vital Signs: Vital Signs - 24 hr 09/13/25 09:30 09/13/25 09:30 09/13/25 10:28 Temperature Pulse Rate 68 Respiratory Rate Blood Pressure Pulse Oximetry Oxygen Delivery Room Air Room Air 09/13/25 14:00 09/13/25 20:02 09/13/25 20:11 Temperature 98 F 98.0 F Pulse Rate 72 75 Respiratory Rate 18 16 Blood Pressure 137/75 130/77 Pulse Oximetry 100 100 Oxygen Delivery Room Air 09/14/25 05:57 Temperature 97.6 F Pulse Rate 68 Respiratory Rate 16 Blood Pressure 147/81 H Pulse Oximetry 97 Oxygen Delivery Intake/Output Intake/Output: Intake & Output 09/11/25 09/12/25 09/13/25 09/14/25 23:59 23:59 23:59 23:59 Intake Total 1784 1907 1580 440 Output Total 740 246 5610 300 Balance 874 1047 580 140 Meds/Results Medications: Active Medications Generic Name Dose Route Start Last Admin Trade Name Freq PRN Reason Stop Dose Admin Acetaminophen 650 mg 09/11/25 10:00 09/14/25 04:32 Acetaminophen 325 Mg Tablet PO 650 mg Q6H MIROSLAVA Administration Aspirin 81 mg 09/03/25 09:00 09/13/25 08:53 Aspirin 81 Mg Enteric Tablet PO 81 mg QAM MIROSLAVA Administration Bisacodyl 10 mg 09/02/25 14:24 Bisacodyl 5 Mg Tablet Ec PO QAM PRN Constipation Clindamycin HCl 450 mg 09/08/25 14:00 09/14/25 05:27 Clindamycin Hcl 150 Mg Cap PO 450 mg Q8HR MIROSLAVA Administration Clopidogrel Bisulfate 75 mg 09/05/25 09:00 09/13/25 08:52 Clopidogrel Bisulfate 75 Mg Tablet PO 75 mg QAM MIROSLAVA Administration Dextrose 12.5 gm 09/04/25 13:02 09/04/25 17:30 Dextrose 50% 25 Gm/50 Ml Syringe IV PUSH 12.5 gm PRN PRN Administration Hypoglycemia Protocol Enoxaparin Sodium 40 mg 09/05/25 10:05 09/13/25 08:52 Enoxaparin 40 Mg/0.4 Ml Syringe SUB-Q 40 mg DAILY MIROSLAVA Administration Ferrous Sulfate 325 mg 09/02/25 17:00 09/05/25 08:07 Ferrous Sulfate 325 Mg Tablet PO Not Given On Hold: 09/05/25 09:29 BIDWM MIROSLAVA Glucagon 1 mg 09/04/25 13:02 Glucagon For Inj 1 Mg Vial IM PRN PRN Hypoglycemia Protocol Glucose 15 gm 09/04/25 13:02 Glucose Oral Gel 15 Gm Of Glucse In 37.5 Gm Tube PO PRN PRN Hypoglycemia Protocol Heparin Sodium (Beef Lung) 50 units 09/02/25 09:00 09/13/25 08:53 Heparin Flush 50 Units/5 Ml Syringe IV PUSH 50 units QAM MIROSLAVA Administration Heparin Sodium (Beef Lung) 50 units 09/02/25 06:33 09/03/25 07:22 Heparin Flush 50 Units/5 Ml Syringe IV PUSH 50 units PRN PRN Administration after intermittent infusion Heparin Sodium (Beef Lung) 50 units 09/02/25 06:33 09/14/25 05:27 Heparin Flush 50 Units/5 Ml Syringe IV PUSH 50 units PRN PRN Administration after blood draws Heparin Sodium (Porcine) 500 units 09/02/25 06:33 09/11/25 11:13 Heparin Sodium Lock Flush 500 Units/5 Ml Syringe IV PUSH 500 units PRN PRN Administration see comments below Hydrochlorothiazide 12.5 mg 09/03/25 09:00 09/13/25 08:52 Hydrochlorothiazide 12.5 Mg Capsule PO 12.5 mg DAILY MIROSLAVA Administration Dextrose 1,000 mls @ 100 mls/hr 09/04/25 13:02 Dextrose 5% 1,000 Ml IVPB PRN PRN Hypoglycemia Protocol Ceftriaxone Sodium 2 gm/ 100 mls @ 200 mls/hr 09/10/25 12:00 09/13/25 12:20 Sodium Chloride IVPB 200 mls/hr Q24H MIROSLAVA Administration Lidocaine 1 patch 09/11/25 10:00 09/13/25 08:53 Lidocaine 5% Patch TRANSDERM 1 patch DAILY MIROSLAVA Administration Metoprolol Succinate 25 mg 09/03/25 09:00 09/05/25 08:08 Metoprolol Succinate Ext Rel 25 Mg Tabcr PO Not Given On Hold: 09/05/25 09:29 QAM MIROSLAVA Ondansetron HCl 4 mg 09/08/25 13:30 09/08/25 13:55 Ondansetron Inj 4 Mg/2 Ml Vial IV PUSH 4 mg Q6H PRN Administration Nausea And Vomiting Ondansetron HCl 4 mg 09/12/25 20:00 09/14/25 04:32 Ondansetron Inj 4 Mg/2 Ml Vial IV PUSH 4 mg 05,13,20 MIROSLAVA Administration Pantoprazole Sodium 40 mg 09/03/25 09:00 09/13/25 08:53 Pantoprazole 40 Mg Tablet PO 40 mg DAILY MIROSLAVA Administration Polyethylene Glycol 17 gm 09/03/25 09:00 09/13/25 08:55 Polyethylene Glycol 3350 17 Gm Powd.Pack PO Not Given DAILY MIROSLAVA Prednisone 40 mg 09/10/25 17:05 09/13/25 08:52 Prednisone 20 Mg Tablet PO 40 mg DAILY@0800 MIROSLAVA Administration Pregabalin 50 mg 09/02/25 17:00 Pregabalin (*Crx) 50 Mg Capsule PO BID PRN NERVE PAIN Senna 8.6 mg 09/12/25 21:00 09/13/25 22:04 Sennosides 8.6 Mg Tablet PO 8.6 mg HS MIROSLAVA Administration Sodium Chloride 10 ml 09/02/25 14:00 09/14/25 04:32 Central Line Flush IV PUSH 10 ml Q8HR MIROSLAVA Administration Tamsulosin HCl 0.4 mg 09/13/25 09:00 09/13/25 08:52 Tamsulosin Hcl 0.4 Mg Capsule PO 0.4 mg QAM MIROSLAVA Administration Tramadol HCl 50 mg 09/02/25 14:24 09/10/25 14:18 Tramadol Hcl (*Crx) 50 Mg Tablet PO 50 mg Q12H PRN Administration Pain 4-6 Radiology Results: ITS Impressions Knee X-Ray 09/01/25 20:50 IMPRESSION: No acute fracture or dislocation. Severe degenerative changes. Large suprapatellar joint effusion. Wrist X-Ray 09/01/25 21:04 IMPRESSION: Extensive erosive changes. Head CT 09/04/25 10:55 IMPRESSION: 1. Unchanged small old lacunar infarct at the anterior limb of the right internal capsule. No acute intracranial process. 2. Stable appearance of age-related changes including mild diffuse volume loss and mild to moderate scattered white matter hypoattenuation consistent with chronic small vessel ischemic disease. Venous Doppler Study 09/04/25 19:50 IMPRESSION: There was no sonographic evidence of deep vein thrombosis in the left lower extremity. Brain MRI 09/08/25 07:32 IMPRESSION: 1. Scattered acute infarcts in the deep white matter of the bilateral frontal and parietal lobes. 2. Moderate nonspecific cerebral white matter disease and pontine disease, which likely represents chronic small vessel ischemic disease. Joint Aspiration/Injection 09/10/25 16:56 IMPRESSION: 1. Successful ultrasound-guided right knee joint aspiration yielding 13 mL of turbid reddish orange-colored fluid. Chest X-Ray 09/12/25 08:56 Impression: No acute cardiopulmonary abnormality. Labs Labs: Laboratory Results - last 24 hr 09/14/25 05:29 WBC 32.3 H RBC 2.85 L Hgb 8.8 L Hct 28.2 L MCV 98.9 MCH 30.9 MCHC 31.2 L RDW 15.9 H Plt Count 565 H MPV 9.0 Sodium 133 L Potassium 4.4 Chloride 102 Carbon Dioxide 29 Anion Gap 2 L BUN 29 H Creatinine 0.68 L Estim Creat Clear Calc 55 Estimated GFR > 60 Glucose 85 Calcium 7.9 L Magnesium 1.8
[2025-09-14] MEDS: CLOPIDOGREL BISULFATE 75 MG TABLET PO (09:42)
[2025-09-14] MEDS: ASPIRIN 81 MG ENTERIC TABLET PO (09:42)
[2025-09-14] MEDS: TAMSULOSIN HCL 0.4 MG CAPSULE PO (09:42)
[2025-09-14] MEDS: PANTOPRAZOLE 40 MG TABLET PO (09:42)
[2025-09-14] MEDS: ENOXAPARIN 40 MG/0.4 ML SYRINGE SUB-Q (09:43)
[2025-09-14] MEDS: LIDOCAINE 5% PATCH 1 PATCH TRANSDERM (09:43)
[2025-09-14] MEDS: CLINDAMYCIN 600 MG/D5W 50 ML 600 MG/50 ML PIGGYBACK 100 MG IVPB (10:43)
[2025-09-14] MEDS: SACCHAROMYCES BOULARDII 250 MG CAPSULE PO ×2 (12:51→17:41)
[2025-09-14] MEDS: SENNOSIDES 8.6 MG TABLET PO (20:17)
[2025-09-15] VITALS (9 sets, daily range): BP systolic 131–163; BP diastolic 68–85; PULSE 58–79; RESP 16–18; TEMP 35.9–36.8; O2SAT 98–100
[2025-09-15] MEDS: ONDANSETRON INJ 4 MG/2 ML VIAL IV PUSH ×2 (04:50→20:18)
[2025-09-15] MEDS: ACETAMINOPHEN 325 MG TABLET 650 MG PO ×4 (04:50→20:18)
[2025-09-15] MEDS: CENTRAL LINE FLUSH 10 ML IV PUSH ×3 (04:51→20:19)
[2025-09-15 05:16] LABS: Hematocrit 27.4 % (37.0-47.0); Hemoglobin 8.6 g/dL (12.0-15.0); Mean Corpuscular HGB Conc 31.4 g/dl (32-36); Mean Corpuscular Hemoglobin 31.2 pg (26-34); Mean Corpuscular Volume 99.3 fl (80-100); Platelet Count Result 568 k/mm3 (150-375); Red Blood Count 2.76 M/mm3 (4.2-5.4); White Blood Count 28.9 K/mm3 (4.5-10.0)
[2025-09-15 05:33] LABS: Anion Gap -2 mmol/L (4-12); Blood Urea Nitrogen 29 mg/dL (7-17); Calcium 8.0 mg/dL (8.4-10.2); Carbon Dioxide 29 mmol/L (22-30); Chloride 103 mmol/L (98-107); Estimated CRCL calculation 63 ml/min; Estimated Glomerular Filt Rate > 60; Glucose 96 mg/dL (65-110); Magnesium 2.0 mg/dL (1.6-2.3); Potassium 4.1 mmol/L (3.4-5.0); Sodium 130 mmol/L (137-145)
[2025-09-15] MEDS: ENOXAPARIN 40 MG/0.4 ML SYRINGE SUB-Q (08:47)
[2025-09-15] MEDS: PANTOPRAZOLE 40 MG TABLET PO (08:47)
[2025-09-15] MEDS: CLOPIDOGREL BISULFATE 75 MG TABLET PO (08:47)
[2025-09-15] MEDS: SACCHAROMYCES BOULARDII 250 MG CAPSULE PO ×3 (08:47→17:33)
[2025-09-15] MEDS: LIDOCAINE 5% PATCH 1 PATCH TRANSDERM (08:48)
[2025-09-15] MEDS: ASPIRIN 81 MG ENTERIC TABLET PO (08:48)
--- NOTE | 2025-09-15 11:42 | PCOTNOTE ---
Patient is unavailable for OT services at this time. Patient having PT services, will check back at a later time.
--- NOTE | 2025-09-15 15:03 | P.PNIM_ITS ---
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 Synovial fluid suggest inflammatory fluid Cultures are negative final results - CRP 24, ESR 140 Prednisone, No surgical intervention for washout planned at this time, 09/10-blood cultures no growth 09/10-Synovial fluid with inflammatory changes more suggestive of RA than septic joint, aerobic culture negative, anaerobic culture pending 09/14- D/c ceftriaxone due to negative aerobic culture, continue clindamycin IV due to intolerance to PO form, pending negative anaerobic culture ID consulted (2) Leukocytosis: Code(s): D72.829 - Elevated white blood cell count, unspecified Status: Acute Assessment and Plan: UA from 09/03/2025 shows no growth Blood C/s preliminary is negative 09/10 Knee aspiration fluid culture negative for aerobic growth as of 09/14, pending for anaerobic growth as of 09/14 WBC 28.9 (3) Acute CVA (cerebrovascular accident): Code(s): I63.9 - Cerebral infarction, unspecified Status: Acute Assessment and Plan: Brain MRI shows Scattered acute infarcts in the deep white matter of the bilateral frontal and parietal lobes. continue Aspirin and Plavix lipid panel: Cholesterol 91, LDL 62, HDL 9, and triglycerides 96. ECHO: EF 70%, Grade 1 diastolic dysfunction Neurology consulted, recommending cardiology consult, spoke to cardiology no need for inpatient consult Telemetry, 30-day event monitor as outpatient PT/OT/ST (4) Altered mental status: Qualifiers: Altered mental status type: unspecified Qualified Code(s): R41.82 - Altered mental status, unspecified Code(s): R41.82 - Altered mental status, unspecified Status: Acute Assessment and Plan: Resolved 09/04 nurse reported patient had altered mental status today, unable to wake up, does not follow commands, not answering questions, appeared to have facial drooping code stroke was called s/p Head CT showed old infarcts s/p CXR 09/03 without acute findings. Normal TSH, and ammonia covid/flu/RSV negative UDS negative venous dopplers of BUE and LLE neg medications that can cause sedation were held Brain MRI 09/07- showed Scattered acute infarcts in the deep white matter of the bilateral frontal and parietal lobes. (5) Anemia: Code(s): D64.9 - Anemia, unspecified Status: Acute Assessment and Plan: Hemoglobin stable Received 1 unit PRBC on 09/09/25, patient has Antibodies. No signs of acute bleeding Transfuse for hemoglobin less than 7 or symptomatic No need for transfusion at this time (6) Severe protein-calorie malnutrition: Code(s): E43 - Unspecified severe protein-calorie malnutrition Status: Acute Assessment and Plan: Dietitian consulted, appreciate further recommendations Reviews the patient had a PEG tube in the past Regular diet Ensure Plus TID with meals. (7) Hypotension: Code(s): I95.9 - Hypotension, unspecified Status: Acute Assessment and Plan: rapid called 09/03 due to hypotension and low urine output Improved Restarted hypertensive medications (8) Hypertension: Qualifiers: Hypertension type: primary hypertension Qualified Code(s): I10 - Essential (primary) hypertension Code(s): I10 - Essential (primary) hypertension Status: Acute Assessment and Plan: Restarting hydrochlorothiazide Subjective Date/time seen: 09/15/25 15:03 Interval history: Patient comfortable at bedside ID consulted for abx recs Review of Systems Review of Systems: 12 systems were reviewed and are negativ e except for as per HPI. All systems reviewed & are unremarkable except as noted in HPI and below ROS unobtainable: Yes unobtainable due to medical condition and unobtainable due to mental status Exam Narrative: HEENT: PERRL, sclerae nonicteric, pharyngeal mucosa pink and intact NECK: No JVD CHEST: Clear to auscultation. Normal effort HEART: NL S1/S2, regular, no murmur ABDOMEN: BS+, soft, nontender, no mass, no bruits EXTREMITIES: No cyanosis, edema, or clubbing NEUROLOGIC: CN intact and symmetric to inspection. MUSCULOSKELETAL: Bony enlargement of right knee with moderate effusion, tender to palpation, mild increased warmth, left shoulder with tenderness to palpation, severely limited ROM due to pain, moderate ulnar deviation of fingers with Josie nodes of hands PSYCH: Alert. Oriented to person, place, and time Const: General: uncomfortable Resp: Effort & Inspection: normal respiratory effort Auscultation: clear to auscultation bilaterally Cardio: Rate: regular rate Rhythm: regular rhythm GI: Auscultation: normal bowel sounds Neuro: Speech: normal speech Extrem: Other: Right knee 1+ edema, painful, does not appear red. Tender to touch. Psych: Thought process: Normal thought process present Insight: Good insight present (Psych) Other: affect flat Objective Data Vital Signs Vital Signs: Vital Signs - 24 hr 09/14/25 16:00 09/14/25 20:00 09/14/25 20:00 Temperature Pulse Rate 76 64 Respiratory Rate Blood Pressure Pulse Oximetry Oxygen Delivery Room Air 09/14/25 20:51 09/14/25 23:01 09/15/25 00:00 Temperature 97.6 F Pulse Rate 72 58 L Respiratory Rate 16 Blood Pressure 155/81 H Pulse Oximetry 100 97 Oxygen Delivery Room Air 09/15/25 04:00 09/15/25 04:36 09/15/25 08:40 Temperature 98.2 F Pulse Rate 72 67 Respiratory Rate 18 Blood Pressure 163/85 H Pulse Oximetry 100 100 Oxygen Delivery Room Air 09/15/25 08:40 09/15/25 12:00 09/15/25 14:00 Temperature 96.6 F L Pulse Rate 63 71 75 Respiratory Rate 18 Blood Pressure 131/68 Pulse Oximetry 98 Oxygen Delivery Intake/Output Intake/Output: Intake & Output 09/12/25 09/13/25 09/14/25 09/15/25 23:59 23:59 23:59 23:59 Intake Total 1907 1580 920 480 Output Total 860 1000 650 850 Balance 1047 580 270 -370 Meds/Results Medications: Active Medications Generic Name Dose Route Start Last Admin Trade Name Freq PRN Reason Stop Dose Admin Acetaminophen 650 mg 09/11/25 10:00 09/15/25 08:50 Acetaminophen 325 Mg Tablet PO 650 mg Q6H MIROSLAVA Administration Aspirin 81 mg 09/03/25 09:00 09/15/25 08:48 Aspirin 81 Mg Enteric Tablet PO 81 mg QAM MIROSLAVA Administration Bisacodyl 10 mg 09/02/25 14:24 Bisacodyl 5 Mg Tablet Ec PO QAM PRN Constipation Clopidogrel Bisulfate 75 mg 09/05/25 09:00 09/15/25 08:47 Clopidogrel Bisulfate 75 Mg Tablet PO 75 mg QAM MIROSLAVA Administration Dextrose 12.5 gm 09/04/25 13:02 09/04/25 17:30 Dextrose 50% 25 Gm/50 Ml Syringe IV PUSH 12.5 gm PRN PRN Administration Hypoglycemia Protocol Enoxaparin Sodium 40 mg 09/05/25 10:05 09/15/25 08:47 Enoxaparin 40 Mg/0.4 Ml Syringe SUB-Q 40 mg DAILY MIROSLAVA Administration Ferrous Sulfate 325 mg 09/02/25 17:00 09/05/25 08:07 Ferrous Sulfate 325 Mg Tablet PO Not Given On Hold: 09/05/25 09:29 BIDWM MIROSLAVA Glucagon 1 mg 09/04/25 13:02 Glucagon For Inj 1 Mg Vial IM PRN PRN Hypoglycemia Protocol Glucose 15 gm 09/04/25 13:02 Glucose Oral Gel 15 Gm Of Glucse In 37.5 Gm Tube PO PRN PRN Hypoglycemia Protocol Heparin Sodium (Beef Lung) 50 units 09/02/25 09:00 09/15/25 08:47 Heparin Flush 50 Units/5 Ml Syringe IV PUSH 50 units QAM MIROSLAVA Administration Heparin Sodium (Beef Lung) 50 units 09/02/25 06:33 09/03/25 07:22 Heparin Flush 50 Units/5 Ml Syringe IV PUSH 50 units PRN PRN Administration after intermittent infusion Heparin Sodium (Beef Lung) 50 units 09/02/25 06:33 09/14/25 05:27 Heparin Flush 50 Units/5 Ml Syringe IV PUSH 50 units PRN PRN Administration after blood draws Heparin Sodium (Porcine) 500 units 09/02/25 06:33 09/11/25 11:13 Heparin Sodium Lock Flush 500 Units/5 Ml Syringe IV PUSH 500 units PRN PRN Administration see comments below Hydrochlorothiazide 12.5 mg 09/03/25 09:00 09/15/25 08:47 Hydrochlorothiazide 12.5 Mg Capsule PO 12.5 mg DAILY MIROSLAVA Administration Dextrose 1,000 mls @ 100 mls/hr 09/04/25 13:02 Dextrose 5% 1,000 Ml IVPB PRN PRN Hypoglycemia Protocol Lidocaine 1 patch 09/11/25 10:00 09/15/25 08:48 Lidocaine 5% Patch TRANSDERM 1 patch DAILY MIROSLAVA Administration Metoprolol Succinate 25 mg 09/03/25 09:00 09/05/25 08:08 Metoprolol Succinate Ext Rel 25 Mg Tabcr PO Not Given On Hold: 09/05/25 09:29 QAM [facility] Ondansetron HCl 4 mg 09/08/25 13:30 09/08/25 13:55 Ondansetron Inj 4 Mg/2 Ml Vial IV PUSH 4 mg Q6H PRN Administration Nausea And Vomiting Ondansetron HCl 4 mg 09/12/25 20:00 09/15/25 12:23 Ondansetron Inj 4 Mg/2 Ml Vial IV PUSH Not Given 05,13,20 [facility] Pantoprazole Sodium 40 mg 09/03/25 09:00 09/15/25 08:47 Pantoprazole 40 Mg Tablet PO 40 mg DAILY MIROSLAVA Administration Polyethylene Glycol 17 gm 09/03/25 09:00 09/15/25 08:46 Polyethylene Glycol 3350 17 Gm Powd.Pack PO 17 gm DAILY MIROSLAVA Administration Prednisone 40 mg 09/10/25 17:05 09/15/25 08:47 Prednisone 20 Mg Tablet PO 40 mg DAILY@0800 MIROSLAVA Administration Pregabalin 50 mg 09/02/25 17:00 Pregabalin (*Crx) 50 Mg Capsule PO BID PRN NERVE PAIN Saccharomyces Boulardii 250 mg 09/14/25 13:00 09/15/25 12:22 Saccharomyces Boulardii 250 Mg Capsule PO 250 mg TID MIROSLAVA Administration Senna 8.6 mg 09/12/25 21:00 09/14/25 20:17 Sennosides 8.6 Mg Tablet PO 8.6 mg HS MIROSLAVA Administration Sodium Chloride 10 ml 09/02/25 14:00 09/15/25 12:22 Central Line Flush IV PUSH 10 ml Q8HR MIROSLAVA Administration Tramadol HCl 50 mg 09/02/25 14:24 09/10/25 14:18 Tramadol Hcl (*Crx) 50 Mg Tablet PO 50 mg Q12H PRN Administration Pain 4-6 Radiology Results: ITS Impressions Knee X-Ray 09/01/25 20:50 IMPRESSION: No acute fracture or dislocation. Severe degenerative changes. Large suprapatellar joint effusion. Wrist X-Ray 09/01/25 21:04 IMPRESSION: Extensive erosive changes. Head CT 09/04/25 10:55 IMPRESSION: 1. Unchanged small old lacunar infarct at the anterior limb of the right internal capsule. No acute intracranial process. 2. Stable appearance of age-related changes including mild diffuse volume loss and mild to moderate scattered white matter hypoattenuation consistent with chronic small vessel ischemic disease. Venous Doppler Study 09/04/25 19:50 IMPRESSION: There was no sonographic evidence of deep vein thrombosis in the left lower extremity. Brain MRI 09/08/25 07:32 IMPRESSION: 1. Scattered acute infarcts in the deep white matter of the bilateral frontal and parietal lobes. 2. Moderate nonspecific cerebral white matter disease and pontine disease, which likely represents chronic small vessel ischemic disease. Joint Aspiration/Injection 09/10/25 16:56 IMPRESSION: 1. Successful ultrasound-guided right knee joint aspiration yielding 13 mL of turbid reddish orange-colored fluid. Chest X-Ray 09/12/25 08:56 Impression: No acute cardiopulmonary abnormality. Labs Labs: Laboratory Results - last 24 hr 09/15/25 04:52 WBC 28.9 H RBC 2.76 L Hgb 8.6 L Hct 27.4 L MCV 99.3 MCH 31.2 MCHC 31.4 L RDW 16.3 H Plt Count 568 H MPV 9.2 Sodium 130 L Potassium 4.1 Chloride 103 Carbon Dioxide 29 Anion Gap -2 L BUN 29 H Creatinine 0.59 L Estim Creat Clear Calc 63 Estimated GFR > 60 Glucose 96 Calcium 8.0 L Magnesium 2.0 Quality VTE Prophylaxis VTE prophylaxis: mechanical ordered and pharmacologic ordered
[2025-09-15] MEDS: SENNOSIDES 8.6 MG TABLET PO (20:18)
--- NOTE | 2025-09-15 21:37 | WPDIDCN ---
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 leukocytosis--started when prednisone started 2. right knee arthritis--possibly 2nd OA vs RA--multiple cx and cell counts not c/w typical septic joint infection 3. RA 4. 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 -possible low grade infection could be like non-tuberculous mycobacterial or lyme -will check Lyme western blot IgM and IgG -consider reaspiration of joint fluid for AFB culture, fungal cx and Borrelia burgdorferi DNA PCR d/w pharmacy staff Patient was seen via video telehealth consultation with the assistance of staff, chart, data and patient interview independepently reviewed. Pt was located at [facility] while I was in my [place] office. Pt gave verbal consent. HPI Data of Consult Date/Time: 09/15/25 21:37 Requesting Physician: Lien Anders DO Primary Care Provider: Kobe ColladoMD Consult Narrative Reason for consult: leukocytosis, possible septic joint Narrative: Tiesha Stock is a 75 year old female with pmhx/o RA (?treatment), HTN, HL, chronic right knee arthritis, s/p multiple arthrocenteses in last year. No cyrstals or positive cultures. WBC count ranging from 18K-65K with neutrophilic predominance. Started on abx and prednisone. Now with leukocytosis. Has been on biologics previously and TB skin test and TB blood test were negative per patient. [facility] Past Medical History Medical History DVT (deep venous thrombosis) No longer on anticoagulation Chronic blood loss anemia History of seizure (~11/2023) Following surgery for septic arthritis. Osteopenia Moderate protein malnutrition Diastolic dysfunction Echo 04/2024 demonstrated EF of 60 65%, mildly increased left ventricular wall thickness, grade 1 diastolic dysfunction, right ventricular function normal, atrial septum appears aneurysmal, moderate aortic valve calcification, mild mitral valve regurgitation, mild tricuspid valve regurgitation Occult blood in stools Hyperlipidemia Hypertension Rheumatoid arthritis Surgical History Surgical History History of colonoscopy (07/17/24) Internal hemorrhoids, diverticulosis Normal esophagogastroduodenoscopy (EGD) (07/17/24) PEG (percutaneous endoscopic gastrostomy) status Place at [facility] in January 2024 due to dysphagia, remains in place due to moderate to severe protein calorie malnutrition with approximately 50 lb weight loss since August 2023. History of total left knee replacement Port-A-Cath in place Left chest wall H/O right knee surgery (~11/2023) Washout due to septic arthritis November 2023 H/O: hysterectomy Family History Family History Father , black lung disease No problems noted. Mother , from [place]JI gangrene. No problems noted. Sibling Acute myocardial infarction Prednisolone adverse reaction Sibling No problems noted. Social History Social History Social History: Code status: DNR/DNI (per patient request) she states that she does not think that her would agree with this but this is her desire. 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 [employer] Gender identity (if verbalized by the patient): Male Spiritual care concerns: No Meds Home Medications and Allergies Home Medications ?Medication ?Instructions ?Recorded ?Confirmed ?Type polyethylene glycol 3350 17 17 g PO DAILY 07/09/24 09/02/25 History gram/dose oral powder (Miralax) metoprolol succinate 25 mg 25 mg PO QAM #60 tabs 07/22/24 09/02/25 Rx tablet,extended release 24 hr (Toprol XL) bisacodyl 5 mg tablet,delayed 10 mg (2 x 5 mg) PO QAM PRN 12/17/24 09/02/25 Rx release (Laxative (bisacodyl)) Constipation #30 tabs ferrous sulfate 325 mg (65 mg 325 mg PO BIDWM #60 tabs 12/17/24 09/02/25 Rx iron) tablet,delayed release tramadol 50 mg tablet 50 mg PO Q12H PRN pain 04/01/25 09/02/25 History aspirin 81 mg tablet 81 mg PO DAILY 05/15/25 09/02/25 History hydrochlorothiazide 12.5 mg capsule 12.5 mg PO DAILY 05/15/25 09/02/25 History prednisone 20 mg tablet 5 mg PO BID 05/15/25 09/02/25 History pantoprazole 40 mg tablet,delayed 40 mg PO DAILY 09/02/25 09/02/25 History release pregabalin 50 mg capsule 50 mg PO BID 09/02/25 09/02/25 History Allergies Allergy/AdvReac Type Severity Reaction Status Date / Time amlodipine Allergy Severe Hives Verified 09/02/25 07:53 banana Allergy Severe throat Verified 09/02/25 07:53 Itching latex Allergy Severe Redness of Verified 09/02/25 07:53 Skin, baker lisinopril Allergy Severe Difficulty Verified 09/02/25 07:53 Breathing Penicillins Allergy Severe Rash Verified 09/02/25 07:53 pseudoephedrine Allergy Severe Difficulty Verified 09/02/25 07:53 Breathing tetracycline Allergy Severe Difficulty Verified 09/02/25 07:53 Breathing tree nut Allergy Severe Other Verified 09/02/25 07:53 dextromethorphan Allergy Intermediate Rash Verified 09/02/25 07:53 prednisone Allergy Unknown Other Verified 09/02/25 07:53 acetaminophen AdvReac Intermediate Nausea and Verified 09/02/25 07:53 Vomiting aspirin AdvReac Intermediate Nausea and Verified 09/02/25 07:53 Vomiting vancomycin AdvReac Intermediate Other Verified 09/02/25 07:53 Sulfa (Sulfonamide AdvReac Mild Other Verified 09/02/25 07:53 Antibiotics) Vital Signs Vital Signs - 24 hr 09/14/25 23:01 09/15/25 00:00 09/15/25 04:00 Temperature Pulse Rate 58 L 72 Respiratory Rate Blood Pressure Pulse Oximetry 97 Oxygen Delivery Room Air 09/15/25 04:36 09/15/25 08:40 09/15/25 08:40 Temperature 98.2 F Pulse Rate 67 63 Respiratory Rate 18 Blood Pressure 163/85 H Pulse Oximetry 100 100 Oxygen Delivery Room Air 09/15/25 12:00 09/15/25 14:00 09/15/25 16:00 Temperature 96.6 F L Pulse Rate 71 75 79 Respiratory Rate 18 Blood Pressure 131/68 Pulse Oximetry 98 Oxygen Delivery 09/15/25 20:00 09/15/25 20:00 09/15/25 20:47 Temperature 97.6 F Pulse Rate 78 71 Respiratory Rate 16 Blood Pressure 140/73 Pulse Oximetry 100 Oxygen Delivery Room Air Exam Narrative: NAD, non-toxic, on room air Results Labs 09/15/25 04:52 09/15/25 04:52 Labs: Short CBC 09/15/25 Range/Units 04:52 WBC 28.9 H (4.5-10.0) K/mm3 Hgb 8.6 L (12.0-15.0) g/dL Hct 27.4 L (37.0-47.0) % Plt Count 568 H (150-375) k/mm3 BMP 09/15/25 04:52 Sodium 130 L Potassium 4.1 Chloride 103 Carbon Dioxide 29 BUN 29 H Creatinine 0.59 L Glucose 96 Calcium 8.0 L
[2025-09-16] VITALS (9 sets, daily range): BP systolic 130–167; BP diastolic 71–88; PULSE 49–73; RESP 16–18; TEMP 36.3–36.8; O2SAT 98–100
[2025-09-16] MEDS: ONDANSETRON INJ 4 MG/2 ML VIAL IV PUSH ×2 (04:40→20:11)
[2025-09-16] MEDS: ACETAMINOPHEN 325 MG TABLET 650 MG PO ×4 (04:40→20:11)
[2025-09-16] MEDS: CENTRAL LINE FLUSH 10 ML IV PUSH ×2 (04:41→12:33)
[2025-09-16 05:03] LABS: Hematocrit 28.5 % (37.0-47.0); Hemoglobin 9.0 g/dL (12.0-15.0); Mean Corpuscular HGB Conc 31.6 g/dl (32-36); Mean Corpuscular Hemoglobin 31.6 pg (26-34); Mean Corpuscular Volume 100.0 fl (80-100); Platelet Count Result 586 k/mm3 (150-375); Red Blood Count 2.85 M/mm3 (4.2-5.4); White Blood Count 30.3 K/mm3 (4.5-10.0)
[2025-09-16 05:19] LABS: Alanine Aminotransferase 24 U/L (6-35); Albumin Level 2.6 g/dL (3.5-5.1); Alkaline Phosphatase 66 U/L (38-126); Anion Gap 3 mmol/L (4-12); Aspartate Amino Transferase 36 U/L (14-36); Bilirubin,Total 0.4 mg/dL (0.2-1.3); Blood Urea Nitrogen 31 mg/dL (7-17); Calcium 8.1 mg/dL (8.4-10.2); Carbon Dioxide 28 mmol/L (22-30); Chloride 102 mmol/L (98-107); Estimated CRCL calculation 64 ml/min; Estimated Glomerular Filt Rate > 60; Glucose 87 mg/dL (65-110); Magnesium 2.2 mg/dL (1.6-2.3); Potassium 4.6 mmol/L (3.4-5.0); Sodium 133 mmol/L (137-145); Total Protein 6.5 g/dL (6.3-8.2)
[2025-09-16 05:58] LABS: Band Neutrophils Percent 3 % (0-6); Basophils Absolute Manual 0.30 K/mm3 (0.0-0.1); Basophils Percent Manual 1 % (0-1); Lymphocytes Absolute Manual 10.60 K/mm3 (1.1-4.5); Lymphocytes Percent Manual 35.0 % (18-44); Monocytes Absolute Manual 0.90 K/mm3 (0.1-0.90); Monocytes Percent Manual 3 % (3-9); Neutrophils Absolute Manual 18.48 K/mm3 (1.3-6.7); Neutrophils Percent Manual 58 % (46-73); Total Cells Counted 100
[2025-09-16 05:59] LABS: Anisocytosis 1+; Giant Platelets Present; Microcytosis 1+ (NORMAL)
[2025-09-16 06:00] LABS: Schistocytes None Seen; Smudge Cells FEW
[2025-09-16] MEDS: LIDOCAINE 5% PATCH 1 PATCH TRANSDERM (08:49)
[2025-09-16] MEDS: SACCHAROMYCES BOULARDII 250 MG CAPSULE PO ×3 (08:50→17:28)
[2025-09-16] MEDS: ENOXAPARIN 40 MG/0.4 ML SYRINGE SUB-Q (08:50)
[2025-09-16] MEDS: CLOPIDOGREL BISULFATE 75 MG TABLET PO (08:51)
[2025-09-16] MEDS: PANTOPRAZOLE 40 MG TABLET PO (08:51)
[2025-09-16] MEDS: ASPIRIN 81 MG ENTERIC TABLET PO (08:51)
--- NOTE | 2025-09-16 14:19 | P.PNIM_ITS ---
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 Synovial fluid suggest inflammatory fluid Cultures are negative final results - CRP 24, ESR 140 Prednisone, No surgical intervention for washout planned at this time, 09/10-blood cultures no growth 09/10-Synovial fluid with inflammatory changes more suggestive of RA than septic joint, aerobic culture negative, anaerobic culture pending Abx discontinued per ID. Follow up Lyme western blot IgM and IgG monitor leukocytosis (2) Leukocytosis: Code(s): D72.829 - Elevated white blood cell count, unspecified Status: Acute Assessment and Plan: UA from 09/03/2025 shows no growth Blood C/s preliminary is negative 09/10 Knee aspiration fluid culture negative for aerobic growth as of 09/14, pending for anaerobic growth as of 09/14 WBC 28.9-->30.3 (3) Acute CVA (cerebrovascular accident): Code(s): I63.9 - Cerebral infarction, unspecified Status: Acute Assessment and Plan: Brain MRI shows Scattered acute infarcts in the deep white matter of the bilateral frontal and parietal lobes. continue Aspirin and Plavix lipid panel: Cholesterol 91, LDL 62, HDL 9, and triglycerides 96. ECHO: EF 70%, Grade 1 diastolic dysfunction Neurology consulted, recommending cardiology consult, spoke to cardiology no need for inpatient consult Telemetry, 30-day event monitor as outpatient PT/OT/ST (4) Altered mental status: Qualifiers: Altered mental status type: unspecified Qualified Code(s): R41.82 - Altered mental status, unspecified Code(s): R41.82 - Altered mental status, unspecified Status: Acute Assessment and Plan: Resolved 09/04 nurse reported patient had altered mental status today, unable to wake up, does not follow commands, not answering questions, appeared to have facial drooping code stroke was called s/p Head CT showed old infarcts s/p CXR 09/03 without acute findings. Normal TSH, and ammonia covid/flu/RSV negative UDS negative venous dopplers of BUE and LLE neg medications that can cause sedation were held Brain MRI 09/07- showed Scattered acute infarcts in the deep white matter of the bilateral frontal and parietal lobes. (5) Anemia: Code(s): D64.9 - Anemia, unspecified Status: Acute Assessment and Plan: Hemoglobin stable Received 1 unit PRBC on 09/09/25, patient has Antibodies. No signs of acute bleeding Transfuse for hemoglobin less than 7 or symptomatic No need for transfusion at this time (6) Severe protein-calorie malnutrition: Code(s): E43 - Unspecified severe protein-calorie malnutrition Status: Acute Assessment and Plan: Dietitian consulted, appreciate further recommendations Reviews the patient had a PEG tube in the past Regular diet Ensure Plus TID with meals. (7) Hypotension: Code(s): I95.9 - Hypotension, unspecified Status: Acute Assessment and Plan: rapid called 09/03 due to hypotension and low urine output Improved Restarted hypertensive medications (8) Hypertension: Qualifiers: Hypertension type: primary hypertension Qualified Code(s): I10 - Essential (primary) hypertension Code(s): I10 - Essential (primary) hypertension Status: Acute Assessment and Plan: Restarting hydrochlorothiazide Subjective Date/time seen: 09/16/25 14:19 Interval history: Patient comfortable at bedside appreciate input from ID Review of Systems Review of Systems: 12 systems were reviewed and are negativ e except for as per HPI. All systems reviewed & are unremarkable except as noted in HPI and below ROS unobtainable: Yes unobtainable due to medical condition and unobtainable due to mental status Exam Narrative: HEENT: PERRL, sclerae nonicteric, pharyngeal mucosa pink and intact NECK: No JVD CHEST: Clear to auscultation. Normal effort HEART: NL S1/S2, regular, no murmur ABDOMEN: BS+, soft, nontender, no mass, no bruits EXTREMITIES: No cyanosis, edema, or clubbing NEUROLOGIC: CN intact and symmetric to inspection. MUSCULOSKELETAL: Bony enlargement of right knee with moderate effusion, tender to palpation, mild increased warmth, left shoulder with tenderness to palpation, severely limited ROM due to pain, moderate ulnar deviation of fingers with Josie nodes of hands PSYCH: Alert. Oriented to person, place, and time Const: General: uncomfortable Resp: Effort & Inspection: normal respiratory effort Auscultation: clear to auscultation bilaterally Cardio: Rate: regular rate Rhythm: regular rhythm GI: Auscultation: normal bowel sounds Neuro: Speech: normal speech Extrem: Other: Right knee 1+ edema, painful, does not appear red. Tender to touch. Psych: Thought process: Normal thought process present Insight: Good insight present (Psych) Other: affect flat Objective Data Vital Signs Vital Signs: Vital Signs - 24 hr 09/15/25 16:00 09/15/25 20:00 09/15/25 20:00 Temperature Pulse Rate 79 78 Respiratory Rate Blood Pressure Pulse Oximetry Oxygen Delivery Room Air 09/15/25 20:47 09/16/25 00:00 09/16/25 04:00 Temperature 97.6 F Pulse Rate 71 59 L 56 L Respiratory Rate 16 Blood Pressure 140/73 Pulse Oximetry 100 Oxygen Delivery 09/16/25 04:41 09/16/25 08:50 09/16/25 08:50 Temperature 97.3 F L Pulse Rate 55 L 60 Respiratory Rate 16 Blood Pressure 167/76 H Pulse Oximetry 100 100 Oxygen Delivery Room Air Intake/Output Intake/Output: Intake & Output 09/13/25 09/14/25 09/15/25 09/16/25 23:59 23:59 23:59 23:59 Intake Total 1580 920 720 370 Output Total 1174 757 1065 400 Balance 580 270 -430 -30 Meds/Results Medications: Active Medications Generic Name Dose Route Start Last Admin Trade Name Freq PRN Reason Stop Dose Admin Acetaminophen 650 mg 09/11/25 10:00 09/16/25 10:32 Acetaminophen 325 Mg Tablet PO 650 mg Q6H MIROSLAVA Administration Aspirin 81 mg 09/03/25 09:00 09/16/25 08:51 Aspirin 81 Mg Enteric Tablet PO 81 mg QAM MIROSLAVA Administration Bisacodyl 10 mg 09/02/25 14:24 Bisacodyl 5 Mg Tablet Ec PO QAM PRN Constipation Clopidogrel Bisulfate 75 mg 09/05/25 09:00 09/16/25 08:51 Clopidogrel Bisulfate 75 Mg Tablet PO 75 mg QAM MIROSLAVA Administration Dextrose 12.5 gm 09/04/25 13:02 09/04/25 17:30 Dextrose 50% 25 Gm/50 Ml Syringe IV PUSH 12.5 gm PRN PRN Administration Hypoglycemia Protocol Enoxaparin Sodium 40 mg 09/05/25 10:05 09/16/25 08:50 Enoxaparin 40 Mg/0.4 Ml Syringe SUB-Q 40 mg DAILY MIROSLAVA Administration Ferrous Sulfate 325 mg 09/02/25 17:00 09/05/25 08:07 Ferrous Sulfate 325 Mg Tablet PO Not Given On Hold: 09/05/25 09:29 BIDWM MIROSLAVA Glucagon 1 mg 09/04/25 13:02 Glucagon For Inj 1 Mg Vial IM PRN PRN Hypoglycemia Protocol Glucose 15 gm 09/04/25 13:02 Glucose Oral Gel 15 Gm Of Glucse In 37.5 Gm Tube PO PRN PRN Hypoglycemia Protocol Heparin Sodium (Beef Lung) 50 units 09/02/25 09:00 09/16/25 08:49 Heparin Flush 50 Units/5 Ml Syringe IV PUSH 50 units QAM MIROSLAVA Administration Heparin Sodium (Beef Lung) 50 units 09/02/25 06:33 09/03/25 07:22 Heparin Flush 50 Units/5 Ml Syringe IV PUSH 50 units PRN PRN Administration after intermittent infusion Heparin Sodium (Beef Lung) 50 units 09/02/25 06:33 09/14/25 05:27 Heparin Flush 50 Units/5 Ml Syringe IV PUSH 50 units PRN PRN Administration after blood draws Heparin Sodium (Porcine) 500 units 09/02/25 06:33 09/11/25 11:13 Heparin Sodium Lock Flush 500 Units/5 Ml Syringe IV PUSH 500 units PRN PRN Administration see comments below Hydrochlorothiazide 12.5 mg 09/03/25 09:00 09/16/25 08:50 Hydrochlorothiazide 12.5 Mg Capsule PO 12.5 mg DAILY MIROSLAVA Administration Dextrose 1,000 mls @ 100 mls/hr 09/04/25 13:02 Dextrose 5% 1,000 Ml IVPB PRN PRN Hypoglycemia Protocol Lidocaine 1 patch 09/11/25 10:00 09/16/25 08:49 Lidocaine 5% Patch TRANSDERM 1 patch DAILY MIROSLAVA Administration Metoprolol Succinate 25 mg 09/03/25 09:00 09/05/25 08:08 Metoprolol Succinate Ext Rel 25 Mg Tabcr PO Not Given On Hold: 09/05/25 09:29 QAM MIROSLAVA Ondansetron HCl 4 mg 09/08/25 13:30 09/08/25 13:55 Ondansetron Inj 4 Mg/2 Ml Vial IV PUSH 4 mg Q6H PRN Administration Nausea And Vomiting Ondansetron HCl 4 mg 09/12/25 20:00 09/16/25 12:32 Ondansetron Inj 4 Mg/2 Ml Vial IV PUSH Not Given 05,13,20 REPLACED BY [facility] Pantoprazole Sodium 40 mg 09/03/25 09:00 09/16/25 08:51 Pantoprazole 40 Mg Tablet PO 40 mg DAILY MIROSLAVA Administration Polyethylene Glycol 17 gm 09/03/25 09:00 09/16/25 08:49 Polyethylene Glycol 3350 17 Gm Powd.Pack PO 17 gm DAILY MIROSLAVA Administration Prednisone 40 mg 09/10/25 17:05 09/16/25 08:50 Prednisone 20 Mg Tablet PO 40 mg DAILY@0800 MIROSLAVA Administration Pregabalin 50 mg 09/02/25 17:00 Pregabalin (*Crx) 50 Mg Capsule PO BID PRN NERVE PAIN Saccharomyces Boulardii 250 mg 09/14/25 13:00 09/16/25 12:32 Saccharomyces Boulardii 250 Mg Capsule PO 250 mg TID MIROSLAVA Administration Senna 8.6 mg 09/12/25 21:00 09/15/25 20:18 Sennosides 8.6 Mg Tablet PO 8.6 mg HS MIROSLAVA Administration Sodium Chloride 10 ml 09/02/25 14:00 09/16/25 12:33 Central Line Flush IV PUSH 10 ml Q8HR MIROSLAVA Administration Tramadol HCl 50 mg 09/02/25 14:24 09/10/25 14:18 Tramadol Hcl (*Crx) 50 Mg Tablet PO 50 mg Q12H PRN Administration Pain 4-6 Radiology Results: ITS Impressions Knee X-Ray 09/01/25 20:50 IMPRESSION: No acute fracture or dislocation. Severe degenerative changes. Large suprapatellar joint effusion. Wrist X-Ray 09/01/25 21:04 IMPRESSION: Extensive erosive changes. Head CT 09/04/25 10:55 IMPRESSION: 1. Unchanged small old lacunar infarct at the anterior limb of the right internal capsule. No acute intracranial process. 2. Stable appearance of age-related changes including mild diffuse volume loss and mild to moderate scattered white matter hypoattenuation consistent with chronic small vessel ischemic disease. Venous Doppler Study 09/04/25 19:50 IMPRESSION: There was no sonographic evidence of deep vein thrombosis in the left lower extremity. Brain MRI 09/08/25 07:32 IMPRESSION: 1. Scattered acute infarcts in the deep white matter of the bilateral frontal and parietal lobes. 2. Moderate nonspecific cerebral white matter disease and pontine disease, which likely represents chronic small vessel ischemic disease. Joint Aspiration/Injection 09/10/25 16:56 IMPRESSION: 1. Successful ultrasound-guided right knee joint aspiration yielding 13 mL of turbid reddish orange-colored fluid. Chest X-Ray 09/12/25 08:56 Impression: No acute cardiopulmonary abnormality. Labs Labs: Laboratory Results - last 24 hr 09/16/25 09/16/25 09/16/25 04:41 04:45 04:46 WBC 30.3 H RBC 2.85 L Hgb 9.0 L Hct 28.5 L MCV 100.0 MCH 31.6 MCHC 31.6 L RDW 16.4 H Plt Count 586 H MPV 9.0 Immature Gran % (Auto) Not Reportable Neut % (Auto) Not Reportable Lymph % (Auto) Not Reportable [place] % (Auto) Not Reportable Eos % (Auto) Not Reportable Baso % (Auto) Not Reportable Lymph # (Auto) Not Reportable [place] # (Auto) Not Reportable Eos # (Auto) Not Reportable Baso # (Auto) Not Reportable Abs Immat Gran (auto) Not Reportable Absolute Neuts (auto) Not Reportable Absolute Nucleated RBC Not Reportable Total Counted 100 Neutrophils % (Manual) 58 Band Neutrophils % 3 Lymphocytes % (Manual) 35.0 Monocytes % (Manual) 3 Basophils % (Manual) 1 Nucleated RBC % Not Reportable Abs Neuts (Manual) 18.48 H Abs Lymphs (Manual) 10.60 H Abs Monocytes (Manual) 0.90 Abs Basophils (Manual) 0.30 H Nucleated RBCs 3 Atypical Lymphocytes Present Smudge Cells Few Platelet Estimate Increased Clumped Platelets Present Large Platelets Present Giant Platelets Present Anisocytosis 1+ Microcytosis 1+ Schistocytes None seen Sodium 133 L Potassium 4.6 Chloride 102 Carbon Dioxide 28 Anion Gap 3 L BUN 31 H Creatinine 0.58 L Estim Creat Clear Calc 64 Estimated GFR > 60 Glucose 87 Lactic Acid 1.9 Calcium 8.1 L Magnesium 2.2 Total Bilirubin 0.4 AST 36 ALT 24 Alkaline Phosphatase 66 Total Protein 6.5 Albumin 2.6 L A. phagocytophilum IgG Cancelled A. phagocytophilum IgM Cancelled A. phagocytophilum Cmmt Cancelled Babesia duncani WA1 IgG Cancelled Babesia microti IgG Ab Cancelled Babesia microti IgM Ab Cancelled Lyme Screen IgG & IgM Cancelled Lyme IgG 18 kDa Band Cancelled Lyme IgG 23 kDa Band Cancelled Lyme IgG 28 kDa Band Cancelled Lyme IgG 30 kDa Band Cancelled Lyme IgG 39 kDa Band Cancelled Lyme IgG 41 kDa Band Cancelled Lyme IgG 45 kDa Band Cancelled Lyme IgG 58 kDa Band Cancelled Lyme IgG 66 kDa Band Cancelled Lyme IgG 93 kDa Band Cancelled Lyme IgG Ab (Immblot) Cancelled Lyme IgM Ab (Immblot) Cancelled Lyme IgM 23 kDa Band Cancelled Lyme IgM 39 kDa Band Cancelled Lyme IgM 41 kDa Band Cancelled Lyme Disease Comment Cancelled Lyme Ab Comment Oth Sp Cancelled Ehrlichia IgG & IgM Cancelled E. chaffeensis IgG Com Cancelled E. chaffeensis IgM Intrp Cancelled Tick-borne Disease Ab Cancelled Quality VTE Prophylaxis VTE prophylaxis: mechanical ordered and pharmacologic ordered
--- NOTE | 2025-09-16 20:01 | WPDINFPN2 ---
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 leukocytosis--started when prednisone started 2. right knee arthritis--possibly 2nd OA vs RA--multiple cx and cell counts not c/w typical septic joint infection 3. RA 4. HTN, HL RECOMMENDATIONS: -continue to monitor off abx -on baseline 5 mg prednisone daily for RA per pt -possible low grade infection could be like non-tuberculous mycobacterial or lyme -will check Lyme western blot IgM and IgG -I would keep off abx for at least 2-3 weeks then ra-aspirate joint fluid for AFB culture, fungal cx and Borrelia burgdorferi DNA PCR. could also consider synovial bx for same d/w pharmacy staff Patient was seen via video telehealth consultation with the assistance of staff, chart, data and patient interview independepently reviewed. Pt was located at [facility] while I was in my [place] office. Pt gave verbal consent. Subjective Date/time seen: 09/16/25 20:01 Interval history: No fevers Exam Narrative: up in chiar, on room air Objective Data Vital Signs Vital Signs: Vital Signs - 24 hr 09/15/25 20:47 09/16/25 00:00 09/16/25 04:00 Temperature 97.6 F Pulse Rate 71 59 L 56 L Respiratory Rate 16 Blood Pressure 140/73 Pulse Oximetry 100 Oxygen Delivery 09/16/25 04:41 09/16/25 08:50 09/16/25 08:50 Temperature 97.3 F L Pulse Rate 55 L 60 Respiratory Rate 16 Blood Pressure 167/76 H Pulse Oximetry 100 100 Oxygen Delivery Room Air 09/16/25 12:00 09/16/25 14:00 09/16/25 16:00 Temperature 97.8 F Pulse Rate 59 L 73 49 L Respiratory Rate 16 Blood Pressure 130/71 Pulse Oximetry 100 Oxygen Delivery Intake/Output Intake/Output: Intake & Output 09/13/25 09/14/25 09/15/25 09/16/25 23:59 23:59 23:59 23:59 Intake Total 1580 920 720 940 Output Total 3192 237 8750 725 Balance 580 270 -430 215 Meds/Results Medications: Active Medications Generic Name Dose Route Start Last Admin Trade Name Freq PRN Reason Stop Dose Admin Acetaminophen 650 mg 09/11/25 10:00 09/16/25 17:28 Acetaminophen 325 Mg Tablet PO 650 mg Q6H MIROSLAVA Administration Aspirin 81 mg 09/03/25 09:00 09/16/25 08:51 Aspirin 81 Mg Enteric Tablet PO 81 mg QAM MIROSLAVA Administration Bisacodyl 10 mg 09/02/25 14:24 Bisacodyl 5 Mg Tablet Ec PO QAM PRN Constipation Clopidogrel Bisulfate 75 mg 09/05/25 09:00 09/16/25 08:51 Clopidogrel Bisulfate 75 Mg Tablet PO 75 mg QAM MIROSLAVA Administration Dextrose 12.5 gm 09/04/25 13:02 09/04/25 17:30 Dextrose 50% 25 Gm/50 Ml Syringe IV PUSH 12.5 gm PRN PRN Administration Hypoglycemia Protocol Enoxaparin Sodium 40 mg 09/05/25 10:05 09/16/25 08:50 Enoxaparin 40 Mg/0.4 Ml Syringe SUB-Q 40 mg DAILY MIROSLAVA Administration Ferrous Sulfate 325 mg 09/02/25 17:00 09/05/25 08:07 Ferrous Sulfate 325 Mg Tablet PO Not Given On Hold: 09/05/25 09:29 BIDWM MIROSLAVA Glucagon 1 mg 09/04/25 13:02 Glucagon For Inj 1 Mg Vial IM PRN PRN Hypoglycemia Protocol Glucose 15 gm 09/04/25 13:02 Glucose Oral Gel 15 Gm Of Glucse In 37.5 Gm Tube PO PRN PRN Hypoglycemia Protocol Heparin Sodium (Beef Lung) 50 units 09/02/25 09:00 09/16/25 08:49 Heparin Flush 50 Units/5 Ml Syringe IV PUSH 50 units QAM MIROSLAVA Administration Heparin Sodium (Beef Lung) 50 units 09/02/25 06:33 09/03/25 07:22 Heparin Flush 50 Units/5 Ml Syringe IV PUSH 50 units PRN PRN Administration after intermittent infusion Heparin Sodium (Beef Lung) 50 units 09/02/25 06:33 09/14/25 05:27 Heparin Flush 50 Units/5 Ml Syringe IV PUSH 50 units PRN PRN Administration after blood draws Heparin Sodium (Porcine) 500 units 09/02/25 06:33 09/11/25 11:13 Heparin Sodium Lock Flush 500 Units/5 Ml Syringe IV PUSH 500 units PRN PRN Administration see comments below Hydrochlorothiazide 12.5 mg 09/03/25 09:00 09/16/25 08:50 Hydrochlorothiazide 12.5 Mg Capsule PO 12.5 mg DAILY MIROSLAVA Administration Dextrose 1,000 mls @ 100 mls/hr 09/04/25 13:02 Dextrose 5% 1,000 Ml IVPB PRN PRN Hypoglycemia Protocol Lidocaine 1 patch 09/11/25 10:00 09/16/25 08:49 Lidocaine 5% Patch TRANSDERM 1 patch DAILY MIROSLAVA Administration Metoprolol Succinate 25 mg 09/03/25 09:00 09/05/25 08:08 Metoprolol Succinate Ext Rel 25 Mg Tabcr PO Not Given On Hold: 09/05/25 09:29 QAM [facility] Ondansetron HCl 4 mg 09/08/25 13:30 09/08/25 13:55 Ondansetron Inj 4 Mg/2 Ml Vial IV PUSH 4 mg Q6H PRN Administration Nausea And Vomiting Ondansetron HCl 4 mg 09/12/25 20:00 09/16/25 12:32 Ondansetron Inj 4 Mg/2 Ml Vial IV PUSH Not Given 05,13,20 [facility] Pantoprazole Sodium 40 mg 09/03/25 09:00 09/16/25 08:51 Pantoprazole 40 Mg Tablet PO 40 mg DAILY MIROSLAVA Administration Polyethylene Glycol 17 gm 09/03/25 09:00 09/16/25 08:49 Polyethylene Glycol 3350 17 Gm Powd.Pack PO 17 gm DAILY MIROSLAVA Administration Prednisone 40 mg 09/10/25 17:05 09/16/25 08:50 Prednisone 20 Mg Tablet PO 40 mg DAILY@0800 MIROSLAVA Administration Pregabalin 50 mg 09/02/25 17:00 Pregabalin (*Crx) 50 Mg Capsule PO BID PRN NERVE PAIN Saccharomyces Boulardii 250 mg 09/14/25 13:00 09/16/25 17:28 Saccharomyces Boulardii 250 Mg Capsule PO 250 mg TID MIROSLAVA Administration Senna 8.6 mg 09/12/25 21:00 09/15/25 20:18 Sennosides 8.6 Mg Tablet PO 8.6 mg HS MIROSLAVA Administration Sodium Chloride 10 ml 09/02/25 14:00 09/16/25 12:33 Central Line Flush IV PUSH 10 ml Q8HR MIROSLAVA Administration Tramadol HCl 50 mg 09/02/25 14:24 09/10/25 14:18 Tramadol Hcl (*Crx) 50 Mg Tablet PO 50 mg Q12H PRN Administration Pain 4-6 Radiology Results: ITS Impressions Knee X-Ray 09/01/25 20:50 IMPRESSION: No acute fracture or dislocation. Severe degenerative changes. Large suprapatellar joint effusion. Wrist X-Ray 09/01/25 21:04 IMPRESSION: Extensive erosive changes. Head CT 09/04/25 10:55 IMPRESSION: 1. Unchanged small old lacunar infarct at the anterior limb of the right internal capsule. No acute intracranial process. 2. Stable appearance of age-related changes including mild diffuse volume loss and mild to moderate scattered white matter hypoattenuation consistent with chronic small vessel ischemic disease. Venous Doppler Study 09/04/25 19:50 IMPRESSION: There was no sonographic evidence of deep vein thrombosis in the left lower extremity. Brain MRI 09/08/25 07:32 IMPRESSION: 1. Scattered acute infarcts in the deep white matter of the bilateral frontal and parietal lobes. 2. Moderate nonspecific cerebral white matter disease and pontine disease, which likely represents chronic small vessel ischemic disease. Joint Aspiration/Injection 09/10/25 16:56 IMPRESSION: 1. Successful ultrasound-guided right knee joint aspiration yielding 13 mL of turbid reddish orange-colored fluid. Chest X-Ray 09/12/25 08:56 Impression: No acute cardiopulmonary abnormality. Labs Labs: Laboratory Results - last 24 hr 09/16/25 09/16/25 09/16/25 04:41 04:45 04:46 WBC 30.3 H RBC 2.85 L Hgb 9.0 L Hct 28.5 L MCV 100.0 MCH 31.6 MCHC 31.6 L RDW 16.4 H Plt Count 586 H MPV 9.0 Immature Gran % (Auto) Not Reportable Neut % (Auto) Not Reportable Lymph % (Auto) Not Reportable [place] % (Auto) Not Reportable Eos % (Auto) Not Reportable Baso % (Auto) Not Reportable Lymph # (Auto) Not Reportable [place] # (Auto) Not Reportable Eos # (Auto) Not Reportable Baso # (Auto) Not Reportable Abs Immat Gran (auto) Not Reportable Absolute Neuts (auto) Not Reportable Absolute Nucleated RBC Not Reportable Total Counted 100 Neutrophils % (Manual) 58 Band Neutrophils % 3 Lymphocytes % (Manual) 35.0 Monocytes % (Manual) 3 Basophils % (Manual) 1 Nucleated RBC % Not Reportable Abs Neuts (Manual) 18.48 H Abs Lymphs (Manual) 10.60 H Abs Monocytes (Manual) 0.90 Abs Basophils (Manual) 0.30 H Nucleated RBCs 3 Atypical Lymphocytes Present Smudge Cells Few Platelet Estimate Increased Clumped Platelets Present Large Platelets Present Giant Platelets Present Anisocytosis 1+ Microcytosis 1+ Schistocytes None seen Sodium 133 L Potassium 4.6 Chloride 102 Carbon Dioxide 28 Anion Gap 3 L BUN 31 H Creatinine 0.58 L Estim Creat Clear Calc 64 Estimated GFR > 60 Glucose 87 Lactic Acid 1.9 Calcium 8.1 L Magnesium 2.2 Total Bilirubin 0.4 AST 36 ALT 24 Alkaline Phosphatase 66 Total Protein 6.5 Albumin 2.6 L A. phagocytophilum IgG Cancelled A. phagocytophilum IgM Cancelled A. phagocytophilum Cmmt Cancelled Babesia duncani WA1 IgG Cancelled Babesia microti IgG Ab Cancelled Babesia microti IgM Ab Cancelled Lyme Screen IgG & IgM Cancelled Lyme IgG 18 kDa Band Cancelled Lyme IgG 23 kDa Band Cancelled Lyme IgG 28 kDa Band Cancelled Lyme IgG 30 kDa Band Cancelled Lyme IgG 39 kDa Band Cancelled Lyme IgG 41 kDa Band Cancelled Lyme IgG 45 kDa Band Cancelled Lyme IgG 58 kDa Band Cancelled Lyme IgG 66 kDa Band Cancelled Lyme IgG 93 kDa Band Cancelled Lyme IgG Ab (Immblot) Cancelled Lyme IgM Ab (Immblot) Cancelled Lyme IgM 23 kDa Band Cancelled Lyme IgM 39 kDa Band Cancelled Lyme IgM 41 kDa Band Cancelled Lyme Disease Comment Cancelled Lyme Ab Comment Oth Sp Cancelled Ehrlichia IgG & IgM Cancelled E. chaffeensis IgG Com Cancelled E. chaffeensis IgM Intrp Cancelled Tick-borne Disease Ab Cancelled
[2025-09-16] MEDS: SENNOSIDES 8.6 MG TABLET PO (20:11)
[2025-09-17] VITALS (8 sets, daily range): BP systolic 116–152; BP diastolic 62–83; PULSE 60–82; RESP 18; TEMP 36.4–37; O2SAT 100
[2025-09-17] MEDS: CENTRAL LINE FLUSH 10 ML IV PUSH ×4 (05:29→20:32)
[2025-09-17] MEDS: ACETAMINOPHEN 325 MG TABLET 650 MG PO ×2 (05:29→20:31)
[2025-09-17] MEDS: ONDANSETRON INJ 4 MG/2 ML VIAL IV PUSH (05:29)
[2025-09-17 05:44] LABS: Hematocrit 28.4 % (37.0-47.0); Hemoglobin 8.8 g/dL (12.0-15.0); Mean Corpuscular HGB Conc 31.0 g/dl (32-36); Mean Corpuscular Hemoglobin 31.0 pg (26-34); Mean Corpuscular Volume 100.0 fl (80-100); Platelet Count Result 544 k/mm3 (150-375); Red Blood Count 2.84 M/mm3 (4.2-5.4); White Blood Count 28.1 K/mm3 (4.5-10.0)
[2025-09-17 06:09] LABS: Alanine Aminotransferase 26 U/L (6-35); Albumin Level 2.7 g/dL (3.5-5.1); Alkaline Phosphatase 66 U/L (38-126); Anion Gap 2 mmol/L (4-12); Aspartate Amino Transferase 34 U/L (14-36); Bilirubin,Total 0.4 mg/dL (0.2-1.3); Blood Urea Nitrogen 32 mg/dL (7-17); Calcium 7.9 mg/dL (8.4-10.2); Carbon Dioxide 29 mmol/L (22-30); Chloride 103 mmol/L (98-107); Estimated CRCL calculation 67 ml/min; Estimated Glomerular Filt Rate > 60; Glucose 85 mg/dL (65-110); Magnesium 2.1 mg/dL (1.6-2.3); Potassium 4.4 mmol/L (3.4-5.0); Sodium 134 mmol/L (137-145); Total Protein 6.6 g/dL (6.3-8.2)
[2025-09-17 06:27] LABS: Band Neutrophils Percent 7 % (0-6); Eosinophils Absolute Manual 0.28 K/mm3 (0.02-0.50); Eosinophils Percent Manual 1 % (0-4); Lymphocytes Absolute Manual 7.86 K/mm3 (1.1-4.5); Lymphocytes Percent Manual 28 % (18-44); Monocytes Absolute Manual 0.84 K/mm3 (0.1-0.90); Monocytes Percent Manual 3 % (3-9); Neutrophils Absolute Manual 19.10 K/mm3 (1.3-6.7); Neutrophils Percent Manual 61 % (46-73); Smudge Cells PRESENT; Total Cells Counted 100
[2025-09-17 06:28] LABS: Anisocytosis 1+; Hypochromasia 1+; Schistocytes None Seen
[2025-09-17] MEDS: ENOXAPARIN 40 MG/0.4 ML SYRINGE SUB-Q (09:50)
[2025-09-17] MEDS: CLOPIDOGREL BISULFATE 75 MG TABLET PO (09:50)
[2025-09-17] MEDS: ASPIRIN 81 MG ENTERIC TABLET PO (09:50)
[2025-09-17] MEDS: PANTOPRAZOLE 40 MG TABLET PO (09:50)
[2025-09-17] MEDS: SACCHAROMYCES BOULARDII 250 MG CAPSULE PO ×3 (09:50→17:26)
[2025-09-17] MEDS: LIDOCAINE 5% PATCH 1 PATCH TRANSDERM (09:51)
--- NOTE | 2025-09-17 10:38 | PCNFU ---
Nutrition Follow-Up Complete: Severe Protein Calorie Malnutrition as related to protein-energy intake with increased protein-energy needs in setting of chronic disease as evidenced by minimal oral intake for > 1-2 months; significant weight loss of 16% (30 ibs) in 2--3months; severe subcutaneous fat loss (orbital fat pads) and severe muscle wasting (temporalis, clavicle) Goal: Meet estimated nutritional needs. Patient will continue current goal. Pt current nutrition is Regular with diet supplements. Last recorded weight is 70.4 kg, up from 67.25 kg on admit. Bowel Motility: Last reported BM 09/13 Labs Reviewed:Cr 0.55, BUN 32, Na 134, Alb 2.7 Meds Noted: Protonix, Lovenox, Miralax Skin: WNL Additional Notes: Patient continues to tolerate at regular diet. Intakes 50-100% of meals. Diet supplements of Ensure Plus High Protein providing an additional 350 kcal and 20 gm protein. Agree with diet orders. Will monitor weight, labs, skin, diet orders, meds every 5 days.
--- NOTE | 2025-09-17 10:42 | P.PNIM_ITS ---
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 Synovial fluid suggest inflammatory fluid Cultures are negative final results - CRP 24, ESR 140 Prednisone, No surgical intervention for washout planned at this time, 09/10-blood cultures no growth 09/10-Synovial fluid with inflammatory changes more suggestive of RA than septic joint, aerobic culture negative, anaerobic culture pending Abx discontinued per ID, recommends to keep off Abx for 2-3 weeks adn then re- aspirate for AFB, fungal cultues and borrelia burgdorferi DNA PCR with possible synovial biopsy Follow up Lyme western blot IgM and IgG leukocytosis improving (2) Leukocytosis: Code(s): D72.829 - Elevated white blood cell count, unspecified Status: Acute Assessment and Plan: UA from 09/03/2025 shows no growth Blood C/s preliminary is negative 09/10 Knee aspiration fluid culture negative for aerobic growth as of 09/14, pending for anaerobic growth as of 09/14 WBC 28.9-->30.3 (3) Acute CVA (cerebrovascular accident): Code(s): I63.9 - Cerebral infarction, unspecified Status: Acute Assessment and Plan: Brain MRI shows Scattered acute infarcts in the deep white matter of the bilateral frontal and parietal lobes. continue Aspirin and Plavix lipid panel: Cholesterol 91, LDL 62, HDL 9, and triglycerides 96. ECHO: EF 70%, Grade 1 diastolic dysfunction Neurology consulted, recommending cardiology consult, spoke to cardiology no need for inpatient consult Telemetry, 30-day event monitor as outpatient PT/OT/ST (4) Altered mental status: Qualifiers: Altered mental status type: unspecified Qualified Code(s): R41.82 - Altered mental status, unspecified Code(s): R41.82 - Altered mental status, unspecified Status: Acute Assessment and Plan: Resolved 09/04 nurse reported patient had altered mental status today, unable to wake up, does not follow commands, not answering questions, appeared to have facial drooping code stroke was called s/p Head CT showed old infarcts s/p CXR 09/03 without acute findings. Normal TSH, and ammonia covid/flu/RSV negative UDS negative venous dopplers of BUE and LLE neg medications that can cause sedation were held Brain MRI 09/07- showed Scattered acute infarcts in the deep white matter of the bilateral frontal and parietal lobes. (5) Anemia: Code(s): D64.9 - Anemia, unspecified Status: Acute Assessment and Plan: Hemoglobin stable Received 1 unit PRBC on 09/09/25, patient has Antibodies. No signs of acute bleeding Transfuse for hemoglobin less than 7 or symptomatic No need for transfusion at this time (6) Severe protein-calorie malnutrition: Code(s): E43 - Unspecified severe protein-calorie malnutrition Status: Acute Assessment and Plan: Dietitian consulted, appreciate further recommendations Reviews the patient had a PEG tube in the past Regular diet Ensure Plus TID with meals. (7) Hypotension: Code(s): I95.9 - Hypotension, unspecified Status: Acute Assessment and Plan: rapid called 09/03 due to hypotension and low urine output Improved Restarted hypertensive medications (8) Hypertension: Qualifiers: Hypertension type: primary hypertension Qualified Code(s): I10 - Essential (primary) hypertension Code(s): I10 - Essential (primary) hypertension Status: Acute Assessment and Plan: Restarting hydrochlorothiazide Plan DVT prophylaxis on Sq Lovenox Awaiting placement Subjective Date/time seen: 09/17/25 10:42 Interval history: Comfortable at bedside Review of Systems Review of Systems: 12 systems were reviewed and are negativ e except for as per HPI. All systems reviewed & are unremarkable except as noted in HPI and below ROS unobtainable: Yes unobtainable due to medical condition and unobtainable due to mental status Exam Narrative: HEENT: PERRL, sclerae nonicteric, pharyngeal mucosa pink and intact NECK: No JVD CHEST: Clear to auscultation. Normal effort HEART: NL S1/S2, regular, no murmur ABDOMEN: BS+, soft, nontender, no mass, no bruits EXTREMITIES: No cyanosis, edema, or clubbing NEUROLOGIC: CN intact and symmetric to inspection. MUSCULOSKELETAL: Bony enlargement of right knee with moderate effusion, tender to palpation, mild increased warmth, left shoulder with tenderness to palpation, severely limited ROM due to pain, moderate ulnar deviation of fingers with Josie nodes of hands PSYCH: Alert. Oriented to person, place, and time Const: General: uncomfortable Resp: Effort & Inspection: normal respiratory effort Auscultation: clear to auscultation bilaterally Cardio: Rate: regular rate Rhythm: regular rhythm GI: Auscultation: normal bowel sounds Neuro: Speech: normal speech Extrem: Other: Right knee 1+ edema, painful, does not appear red. Tender to touch. Psych: Thought process: Normal thought process present Insight: Good insight present (Psych) Other: affect flat Objective Data Vital Signs Vital Signs: Vital Signs - 24 hr 09/16/25 12:00 09/16/25 14:00 09/16/25 16:00 Temperature 97.8 F Pulse Rate 59 L 73 49 L Respiratory Rate 16 Blood Pressure 130/71 Pulse Oximetry 100 Oxygen Delivery 09/16/25 20:00 09/16/25 20:00 09/16/25 22:30 Temperature 98.2 F Pulse Rate 72 69 Respiratory Rate 18 Blood Pressure 132/88 Pulse Oximetry 98 Oxygen Delivery Room Air 09/17/25 00:00 09/17/25 04:00 09/17/25 06:00 Temperature 97.5 F L Pulse Rate 65 63 60 Respiratory Rate 18 Blood Pressure 152/83 H Pulse Oximetry 100 Oxygen Delivery Intake/Output Intake/Output: Intake & Output 09/14/25 09/15/25 09/16/25 09/17/25 23:59 23:59 23:59 23:59 Intake Total 920 720 940 300 Output Total 650 1150 725 Balance 270 -430 215 300 Meds/Results Medications: Active Medications Generic Name Dose Route Start Last Admin Trade Name Freq PRN Reason Stop Dose Admin Acetaminophen 650 mg 09/11/25 10:00 09/17/25 09:59 Acetaminophen 325 Mg Tablet PO Not Given Q6H MIROSLAVA Aspirin 81 mg 09/03/25 09:00 09/17/25 09:50 Aspirin 81 Mg Enteric Tablet PO 81 mg QAM MIROSLAVA Administration Bisacodyl 10 mg 09/02/25 14:24 Bisacodyl 5 Mg Tablet Ec PO QAM PRN Constipation Clopidogrel Bisulfate 75 mg 09/05/25 09:00 09/17/25 09:50 Clopidogrel Bisulfate 75 Mg Tablet PO 75 mg QAM MIROSLAVA Administration Dextrose 12.5 gm 09/04/25 13:02 09/04/25 17:30 Dextrose 50% 25 Gm/50 Ml Syringe IV PUSH 12.5 gm PRN PRN Administration Hypoglycemia Protocol Enoxaparin Sodium 40 mg 09/05/25 10:05 09/17/25 09:50 Enoxaparin 40 Mg/0.4 Ml Syringe SUB-Q 40 mg DAILY MIROSLAVA Administration Ferrous Sulfate 325 mg 09/02/25 17:00 09/05/25 08:07 Ferrous Sulfate 325 Mg Tablet PO Not Given On Hold: 09/05/25 09:29 BIDWM MIROSLAVA Glucagon 1 mg 09/04/25 13:02 Glucagon For Inj 1 Mg Vial IM PRN PRN Hypoglycemia Protocol Glucose 15 gm 09/04/25 13:02 Glucose Oral Gel 15 Gm Of Glucse In 37.5 Gm Tube PO PRN PRN Hypoglycemia Protocol Heparin Sodium (Beef Lung) 50 units 09/02/25 09:00 09/17/25 09:51 Heparin Flush 50 Units/5 Ml Syringe IV PUSH 50 units QAM MIROSLAVA Administration Heparin Sodium (Beef Lung) 50 units 09/02/25 06:33 09/03/25 07:22 Heparin Flush 50 Units/5 Ml Syringe IV PUSH 50 units PRN PRN Administration after intermittent infusion Heparin Sodium (Beef Lung) 50 units 09/02/25 06:33 09/14/25 05:27 Heparin Flush 50 Units/5 Ml Syringe IV PUSH 50 units PRN PRN Administration after blood draws Heparin Sodium (Porcine) 500 units 09/02/25 06:33 09/11/25 11:13 Heparin Sodium Lock Flush 500 Units/5 Ml Syringe IV PUSH 500 units PRN PRN Administration see comments below Hydrochlorothiazide 12.5 mg 09/03/25 09:00 09/17/25 09:50 Hydrochlorothiazide 12.5 Mg Capsule PO 12.5 mg DAILY MIROSLAVA Administration Dextrose 1,000 mls @ 100 mls/hr 09/04/25 13:02 Dextrose 5% 1,000 Ml IVPB PRN PRN Hypoglycemia Protocol Lidocaine 1 patch 09/11/25 10:00 09/17/25 09:51 Lidocaine 5% Patch TRANSDERM 1 patch DAILY MIROSLAVA Administration Metoprolol Succinate 25 mg 09/03/25 09:00 09/05/25 08:08 Metoprolol Succinate Ext Rel 25 Mg Tabcr PO Not Given On Hold: 09/05/25 09:29 QAM [facility] Miscellaneous Information 1 each 09/17/25 00:01 Tramadol Needs To Be Renewed Or It Will Automatically Discontinue.(Not Used Since 09/10) XX 10/17/25 00:00 CLARIFY MIROSLAVA Ondansetron HCl 4 mg 09/08/25 13:30 09/08/25 13:55 Ondansetron Inj 4 Mg/2 Ml Vial IV PUSH 4 mg Q6H PRN Administration Nausea And Vomiting Ondansetron HCl 4 mg 09/12/25 20:00 09/17/25 05:29 Ondansetron Inj 4 Mg/2 Ml Vial IV PUSH 4 mg 05,13,20 MIROSLAVA Administration Pantoprazole Sodium 40 mg 09/03/25 09:00 09/17/25 09:50 Pantoprazole 40 Mg Tablet PO 40 mg DAILY MIROSLAVA Administration Polyethylene Glycol 17 gm 09/03/25 09:00 09/17/25 09:51 Polyethylene Glycol 3350 17 Gm Powd.Pack PO 17 gm DAILY MIROSLAVA Administration Prednisone 40 mg 09/10/25 17:05 09/17/25 09:50 Prednisone 20 Mg Tablet PO 40 mg DAILY@0800 MIROSLAVA Administration Pregabalin 50 mg 09/02/25 17:00 Pregabalin (*Crx) 50 Mg Capsule PO BID PRN NERVE PAIN Saccharomyces Boulardii 250 mg 09/14/25 13:00 09/17/25 09:50 Saccharomyces Boulardii 250 Mg Capsule PO 250 mg TID MIROSLAVA Administration Senna 8.6 mg 09/12/25 21:00 09/16/25 20:11 Sennosides 8.6 Mg Tablet PO 8.6 mg HS MIROSLAVA Administration Sodium Chloride 10 ml 09/02/25 14:00 09/17/25 05:30 Central Line Flush IV PUSH 10 ml Q8HR MIROSLAVA Administration Tramadol HCl 50 mg 09/02/25 14:24 09/10/25 14:18 Tramadol Hcl (*Crx) 50 Mg Tablet PO 50 mg Q12H PRN Administration Pain 4-6 Radiology Results: ITS Impressions Knee X-Ray 09/01/25 20:50 IMPRESSION: No acute fracture or dislocation. Severe degenerative changes. Large suprapatellar joint effusion. Wrist X-Ray 09/01/25 21:04 IMPRESSION: Extensive erosive changes. Head CT 09/04/25 10:55 IMPRESSION: 1. Unchanged small old lacunar infarct at the anterior limb of the right internal capsule. No acute intracranial process. 2. Stable appearance of age-related changes including mild diffuse volume loss and mild to moderate scattered white matter hypoattenuation consistent with chronic small vessel ischemic disease. Venous Doppler Study 09/04/25 19:50 IMPRESSION: There was no sonographic evidence of deep vein thrombosis in the left lower extremity. Brain MRI 09/08/25 07:32 IMPRESSION: 1. Scattered acute infarcts in the deep white matter of the bilateral frontal and parietal lobes. 2. Moderate nonspecific cerebral white matter disease and pontine disease, which likely represents chronic small vessel ischemic disease. Joint Aspiration/Injection 09/10/25 16:56 IMPRESSION: 1. Successful ultrasound-guided right knee joint aspiration yielding 13 mL of turbid reddish orange-colored fluid. Chest X-Ray 09/12/25 08:56 Impression: No acute cardiopulmonary abnormality. Labs Labs: Laboratory Results - last 24 hr 09/17/25 05:35 WBC 28.1 H RBC 2.84 L Hgb 8.8 L Hct 28.4 L MCV 100.0 MCH 31.0 MCHC 31.0 L RDW 16.9 H Plt Count 544 H MPV 9.2 Immature Gran % (Auto) Not Reportable Neut % (Auto) Not Reportable Lymph % (Auto) Not Reportable [place] % (Auto) Not Reportable Eos % (Auto) Not Reportable Baso % (Auto) Not Reportable Lymph # (Auto) Not Reportable [place] # (Auto) Not Reportable Eos # (Auto) Not Reportable Baso # (Auto) Not Reportable Abs Immat Gran (auto) Not Reportable Absolute Neuts (auto) Not Reportable Absolute Nucleated RBC Not Reportable Total Counted 100 Neutrophils % (Manual) 61 Band Neutrophils % 7 H Lymphocytes % (Manual) 28 Monocytes % (Manual) 3 Eosinophils % (Manual) 1 Nucleated RBC % Not Reportable Abs Neuts (Manual) 19.10 H Abs Lymphs (Manual) 7.86 H Abs Monocytes (Manual) 0.84 Absolute Eos (Manual) 0.28 Nucleated RBCs 4 Smudge Cells Present Platelet Estimate Increased Hypochromasia 1+ Anisocytosis 1+ Schistocytes None seen Sodium 134 L Potassium 4.4 Chloride 103 Carbon Dioxide 29 Anion Gap 2 L BUN 32 H Creatinine 0.55 L Estim Creat Clear Calc 67 Estimated GFR > 60 Glucose 85 Calcium 7.9 L Magnesium 2.1 Total Bilirubin 0.4 AST 34 ALT 26 Alkaline Phosphatase 66 Total Protein 6.6 Albumin 2.7 L Quality VTE Prophylaxis VTE prophylaxis: mechanical ordered and pharmacologic ordered
[2025-09-17] MEDS: METOPROLOL SUCCINATE EXT REL 25 MG TABCR PO (12:35)
[2025-09-17] MEDS: SENNOSIDES 8.6 MG TABLET PO (20:31)
[2025-09-18 06:00] VITALS: BP 173/76; PULSE 60; RESP 18; TEMP 36.8; O2SAT 100
[2025-09-18 07:45] VITALS: PULSE 59; O2SAT 100
[2025-09-18] MEDS: ASPIRIN 81 MG ENTERIC TABLET PO (08:28)
[2025-09-18] MEDS: CLOPIDOGREL BISULFATE 75 MG TABLET PO (08:28)
[2025-09-18] MEDS: PANTOPRAZOLE 40 MG TABLET PO (08:28)
[2025-09-18] MEDS: SACCHAROMYCES BOULARDII 250 MG CAPSULE PO ×2 (08:28→13:12)
[2025-09-18 08:29] VITALS: PULSE 60
[2025-09-18] MEDS: METOPROLOL SUCCINATE EXT REL 25 MG TABCR PO (08:29)
[2025-09-18] MEDS: ENOXAPARIN 40 MG/0.4 ML SYRINGE SUB-Q (08:31)
[2025-09-18] MEDS: LIDOCAINE 5% PATCH 1 PATCH TRANSDERM (08:32)
[2025-09-18] MEDS: CENTRAL LINE FLUSH 10 ML IV PUSH ×2 (08:36→15:29)
[2025-09-18 14:00] VITALS: BP 145/78; PULSE 76; RESP 16; TEMP 36.2; O2SAT 100
[2025-09-18] MEDS: HEPARIN SODIUM LOCK FLUSH 500 UNITS/5 ML SYRINGE IV PUSH (15:28)
--- NOTE | 2025-09-18 15:29 | P.DS_ITS ---
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 Hospital Course (Problem-Oriented) 1. Monoarticular Arthritis / Right Knee Effusion (OA/RA Flare) * History of chronic right knee pain, prior septic arthritis (washout Nov 2023), and rheumatoid arthritis. * Presented with acute worsening of right knee pain, swelling, and inability to ambulate. * Synovial fluid: Cloudy, high WBC (39,390/uL, 80% neutrophils), no crystals, cultures negative for bacteria. * Imaging: X-ray showed severe degenerative changes and large effusion. * Treated with prednisone (5 mg BID), initially on antibiotics (cefepime, clindamycin, later ceftriaxone, then discontinued per ID). * No evidence of active infection; likely inflammatory (RA flare). * Ortho: No surgical intervention planned. * Infectious Disease: Recommended holding antibiotics, monitoring, and outpatient re-aspiration for AFB/fungal/Borrelia if symptoms persist. * WBC improving since stopping antibiotics, 28 today 2. Rheumatoid Arthritis * Chronic, with current flare involving right knee and wrist. * Managed with prednisone, celecoxib, pregabalin, and tramadol as needed. 3. Acute Cerebrovascular Accident (CVA) / Altered Mental Status * Developed acute AMS with inability to follow commands, facial droop. * Code stroke called; CT head: old infarcts, MRI: scattered acute infarcts in de ep white matter (bilateral frontal/parietal lobes), consistent with small vessel ischemic disease. * No major acute or moderate-sized stroke. * Neurology: Continue aspirin, add clopidogrel, outpatient Holter/event monitor, PT/OT/ST. * AMS resolved; patient returned to baseline. 4. Leukocytosis * improving 28 today , likely steroid-induced; no evidence of ongoing infection. * Blood, urine, and synovial cultures negative. 5. Anemia * Chronic blood loss anemia, Hgb sole 6.8, received 1 unit PRBC (09/09/25). * No active bleeding; transfuse if Hgb <7 or symptomatic. * Hb 8.7 today 6. Severe Protein-Calorie Malnutrition * History of PEG placement (January 2024) for dysphagia and significant weight loss. * Dietitian consulted; regular diet with Ensure Plus TID. * liberalize diet for now 7. Urinary Tract Infection * Initial UA: leukocyte esterase, WBCs, bacteria; cultures negative. * Treated empirically with antibiotics, later discontinued. 8. Hypotension * Episode of hypotension and low urine output (09/03/25), responded to IV fluids. * Antihypertensives held during episode, later restarted. 9. Hypertension & Hyperlipidemia * Chronic, managed with hydrochlorothiazide, metoprolol, and statin therapy. 10. Acute Pain * Managed with pregabalin, acetaminophen, tramadol, and lidocaine patch. 11. DVT Prophylaxis * History of DVT, not on anticoagulation. * Received SQ enoxaparin during admission. Pertinent Labs/Imaging * WBC: up to 30.3 (steroid effect) * Hgb: sole 6.8, improved after transfusion * ESR: 140, CRP: 24 (inflammatory) * Synovial fluid: high WBC, negative cultures * MRI brain: scattered acute infarcts, small vessel disease * X-ray right knee: severe OA, large effusion Allergies * Amlodipine (hives), banana (throat itching), latex (skin baker), lisinopril (dyspnea), penicillins (rash), pseudoephedrine (dyspnea), tetracycline (dyspnea), tree nut (other), dextromethorphan (rash), prednisone (other), acetaminophen (nausea/vomiting), aspirin (nausea/vomiting), vancomycin (other), sulfa (other) Discharge Medications * Prednisone 5 mg PO BID?(RA) * Celecoxib 200 mg PO daily?(RA/OA) * Aspirin 81 mg PO daily?(CVA prevention) * Clopidogrel 75 mg PO daily?(CVA prevention) * Hydrochlorothiazide 12.5 mg PO daily?(HTN) * Metoprolol succinate 25 mg PO daily?(HTN) * Ferrous sulfate 325 mg PO BID?(anemia) * Pantoprazole 40 mg PO daily?(GI protection) * Pregabalin 50 mg PO BID?(neuropathic pain) * Tramadol 50 mg PO Q12H PRN?(pain) * Acetaminophen 650 mg PO Q6H PRN?(pain) * Polyethylene glycol 17 g PO daily?(bowel regimen) * Bisacodyl 10 mg PO QAM PRN?(bowel regimen) * Ensure Plus TID with meals?(nutrition) Discharge Condition * Improved from admission, alert, oriented, pain controlled, ambulating with assistance, no acute distress. Discharge Disposition * Swing bed Follow-Up and Recommendations * Rheumatology:?Outpatient follow-up for RA management. * Neurology:?Outpatient event monitor, continue dual antiplatelet therapy, PT/OT/ST as needed. * Orthopedics:?Outpatient follow-up; consider re-aspiration of right knee in 2-3 weeks for AFB/fungal/Borrelia if symptoms persist. * Primary Care:?For ongoing management of chronic conditions. * Dietitian:?Continue nutritional support. * Return to ED?for fever, worsening pain/swelling, new neurological symptoms, or any acute change. Time Spent with Patient Time attestation: Total time spent providing and/or coordinating discharge services: DS: Data Data Completed and Pending Labs on day of discharge: Preliminary micro results at discharge 09/10/25 15:32 Aerobic Culture - Preliminary Synovial Fluid Right Knee Discharge Plan Discharge Attending physician on discharge: Evaristo Cantu Consulting providers: Joon Tijerina; Bill Bello; Shen Wilkerson; Ilana Obregon Discharging Clinician: Evaristo Cantu Anticipated Discharge Date/Time: 09/18/25 15:15 Patient Disposition: SNF Activity: as tolerated Diet: as tolerated and regular Discharge Instructions: Patient will follow up with [facility] in 2 weeks for Knee re-aspiration for AFB, fungal cultures and Borrelia burgdorferi DNA and PCR and possible synovial biopsy. Patient Instructions: Antibiotic Form, John Catheter Placement and Care (DC) Patient Language: Sammarinese Stand Alone Forms: General Discharge Information Follow-up/Referrals: Bill Bello MD [Physician, Orthopedics] Referral Note: F/u with ortho in 2 weeks Ilana Obregon MD [Physician, Infectious Disease] Referral Note: F/u with ID as instructed Tobias,MD Kobe [Primary Care Provider, Unknown] Referral Note: F/u with PCP in 3-5 days Discharge Medications: New clopidogrel 75 mg Tablet 75 mg PO QAM 30 Days Qty: 30 0RF sennosides [Senokot] 8.6 mg Tablet 8.6 mg PO HS 7 Days Qty: 7 0RF Saccharomyces boulardii [Florastor] 250 mg Capsule 250 mg PO TID 10 Days Qty: 30 0RF Continued prednisone 20 mg tablet 5 mg PO BID aspirin 81 mg tablet 81 mg PO DAILY hydrochlorothiazide 12.5 mg capsule 12.5 mg PO DAILY metoprolol succinate [Toprol XL] 25 mg Tablet Extended Release 24 Hr 25 mg PO QAM Qty: 60 0RF bisacodyl [Laxative (bisacodyl)] 5 mg Tablet,Delayed Release (Dr/Ec) 10 mg PO QAM PRN (Reason: Constipation) Qty: 30 0RF ferrous sulfate 325 mg (65 mg iron) Tablet,Delayed Release (Dr/Ec) 325 mg PO BIDWM Qty: 60 0RF pregabalin 50 mg capsule 50 mg PO BID pantoprazole 40 mg tablet,delayed release (DR/EC) 40 mg PO DAILY polyethylene glycol 3350 [Miralax] 17 gram/dose Powder 17 g PO DAILY tramadol 50 mg tablet 50 mg PO Q12H PRN (Reason: pain) Other Ambulatory Orders: [place] cardiac event monitor (Routine) Timeframe: 1 Month Location: [facility] Cardiology Ordered By: Teressa Sargent [place] cardiac event monitor (Routine) Timeframe: 1 Day Facility: [facility] - Location: [facility] Ordered By: David Moss Date of admission: 09/02/25 04:07 Primary Care Provider: Tobias,Kobe Admitting Provider: Lien Anders Attending physician on admission: Lien Anders Condition: Stable
--- NOTE | 2025-09-18 15:29 | PM.DS ---
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 Hospital Course (Problem-Oriented) 1. 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 Presented with acute worsening of right knee pain, swelling, and inability to ambulate. Synovial fluid: Cloudy, high WBC (39,390/uL, 80% neutrophils), no crystals, cultures negative for bacteria. Imaging: X-ray showed severe degenerative changes and large effusion. Treated with prednisone (5 mg BID), initially on antibiotics (cefepime, clindamycin, later ceftriaxone, then discontinued per ID). No evidence of active infection; likely inflammatory (RA flare). Ortho: No surgical intervention planned. Infectious Disease: Recommended holding antibiotics, monitoring, and outpatient re-aspiration for AFB/fungal/Borrelia if symptoms persist. WBC improving since stopping antibiotics, 28 today 2. Rheumatoid Arthritis Chronic, with current flare involving right knee and wrist. Managed with prednisone, celecoxib, pregabalin, and tramadol as needed. 3. Acute Cerebrovascular Accident (CVA) / Altered Mental Status Developed acute AMS with inability to follow commands, facial droop. Code stroke called; CT head: old infarcts, MRI: scattered acute infarcts in deep white matter (bilateral frontal/parietal lobes), consistent with small vessel ischemic disease. No major acute or moderate-sized stroke. Neurology: Continue aspirin, add clopidogrel, outpatient Holter/event monitor, PT/OT/ST. AMS resolved; patient returned to baseline. 4. Leukocytosis improving 28 today , likely steroid-induced; no evidence of ongoing infection. Blood, urine, and synovial cultures negative. 5. Anemia Chronic blood loss anemia, Hgb sole 6.8, received 1 unit PRBC (09/09/25). No active bleeding; transfuse if Hgb <7 or symptomatic. Hb 8.7 today 6. Severe Protein-Calorie Malnutrition History of PEG placement (January 2024) for dysphagia and significant weight loss. Dietitian consulted; regular diet with Ensure Plus TID. liberalize diet for now 7. Urinary Tract Infection Initial UA: leukocyte esterase, WBCs, bacteria; cultures negative. Treated empirically with antibiotics, later discontinued. 8. Hypotension Episode of hypotension and low urine output (09/03/25), responded to IV fluids. Antihypertensives held during episode, later restarted. 9. Hypertension & Hyperlipidemia Chronic, managed with hydrochlorothiazide, metoprolol, and statin therapy. 10. Acute Pain Managed with pregabalin, acetaminophen, tramadol, and lidocaine patch. 11. DVT Prophylaxis History of DVT, not on anticoagulation. Received SQ enoxaparin during admission. Pertinent Labs/Imaging WBC: up to 30.3 (steroid effect) Hgb: sole 6.8, improved after transfusion ESR: 140, CRP: 24 (inflammatory) Synovial fluid: high WBC, negative cultures MRI brain: scattered acute infarcts, small vessel disease X-ray right knee: severe OA, large effusion Allergies Amlodipine (hives), banana (throat itching), latex (skin baker), lisinopril (dyspnea), penicillins (rash), pseudoephedrine (dyspnea), tetracycline (dyspnea), tree nut (other), dextromethorphan (rash), prednisone (other), acetaminophen (nausea/vomiting), aspirin (nausea/vomiting), vancomycin (other), sulfa (other) Discharge Medications Prednisone 5 mg PO BID?(RA) Celecoxib 200 mg PO daily?(RA/OA) Aspirin 81 mg PO daily?(CVA prevention) Clopidogrel 75 mg PO daily?(CVA prevention) Hydrochlorothiazide 12.5 mg PO daily?(HTN) Metoprolol succinate 25 mg PO daily?(HTN) Ferrous sulfate 325 mg PO BID?(anemia) Pantoprazole 40 mg PO daily?(GI protection) Pregabalin 50 mg PO BID?(neuropathic pain) Tramadol 50 mg PO Q12H PRN?(pain) Acetaminophen 650 mg PO Q6H PRN?(pain) Polyethylene glycol 17 g PO daily?(bowel regimen) Bisacodyl 10 mg PO QAM PRN?(bowel regimen) Ensure Plus TID with meals?(nutrition) Discharge Condition Improved from admission, alert, oriented, pain controlled, ambulating with assistance, no acute distress. Discharge Disposition Swing bed Follow-Up and Recommendations Rheumatology:?Outpatient follow-up for RA management. Neurology:?Outpatient event monitor, continue dual antiplatelet therapy, PT/OT/ST as needed. Orthopedics:?Outpatient follow-up; consider re-aspiration of right knee in 2-3 weeks for AFB/fungal/Borrelia if symptoms persist. Primary Care:?For ongoing management of chronic conditions. Dietitian:?Continue nutritional support. Return to ED?for fever, worsening pain/swelling, new neurological symptoms, or any acute change. Time Spent with Patient Time attestation: Total time spent providing and/or coordinating discharge services: DS: Data Data Completed and Pending Labs on day of discharge: Preliminary micro results at discharge 09/10/25 15:32 Aerobic Culture - Preliminary Synovial Fluid Right Knee Discharge Plan Discharge Attending physician on discharge: Evaristo Cantu Consulting providers: Joon Tijerina; Bill Bello; Shen Wilkerson; Ilana Obregon Discharging Clinician: Evaristo Cantu Anticipated Discharge Date/Time: 09/18/25 15:15 Patient Disposition: SNF Activity: as tolerated Diet: as tolerated and regular Discharge Instructions: Patient will follow up with [facility] in 2 weeks for Knee re-aspiration for AFB, fungal cultures and Borrelia burgdorferi DNA and PCR and possible synovial biopsy. Patient Instructions: Antibiotic Form, John Catheter Placement and Care (DC) Patient Language: Nauruan Stand Alone Forms: General Discharge Information Follow-up/Referrals: Bill Bello MD [Physician, Orthopedics] Referral Note: F/u with ortho in 2 weeks Ilana Obregon MD [Physician, Infectious Disease] Referral Note: F/u with ID as instructed Tobias,MD Kobe [Primary Care Provider, Unknown] Referral Note: F/u with PCP in 3-5 days Discharge Medications: New clopidogrel 75 mg Tablet 75 mg PO QAM 30 Days Qty: 30 0RF sennosides [Senokot] 8.6 mg Tablet 8.6 mg PO HS 7 Days Qty: 7 0RF Saccharomyces boulardii [Florastor] 250 mg Capsule 250 mg PO TID 10 Days Qty: 30 0RF Continued prednisone 20 mg tablet 5 mg PO BID aspirin 81 mg tablet 81 mg PO DAILY hydrochlorothiazide 12.5 mg capsule 12.5 mg PO DAILY metoprolol succinate [Toprol XL] 25 mg Tablet Extended Release 24 Hr 25 mg PO QAM Qty: 60 0RF bisacodyl [Laxative (bisacodyl)] 5 mg Tablet,Delayed Release (Dr/Ec) 10 mg PO QAM PRN (Reason: Constipation) Qty: 30 0RF ferrous sulfate 325 mg (65 mg iron) Tablet,Delayed Release (Dr/Ec) 325 mg PO BIDWM Qty: 60 0RF pregabalin 50 mg capsule 50 mg PO BID pantoprazole 40 mg tablet,delayed release (DR/EC) 40 mg PO DAILY polyethylene glycol 3350 [Miralax] 17 gram/dose Powder 17 g PO DAILY tramadol 50 mg tablet 50 mg PO Q12H PRN (Reason: pain) Other Ambulatory Orders: CA cardiac event monitor (Routine) Timeframe: 1 Month Location: [facility] [place] Cardiology Ordered By: Teressa Sargent CA cardiac event monitor (Routine) Timeframe: 1 Day Facility: [facility] - Location: [facility] Ordered By: David Moss Date of admission: 09/02/25 04:07 Primary Care Provider: TobiasKobe Admitting Provider: Lien Anders Attending physician on admission: Lien Anders Condition: Stable
[2025-09-23 13:08] LABS: B microti IgG <1:10 (Neg:<1:10); E. chaffeensis IgG Negative (Neg:<1:64)
== END 2025-09-18 16:43 | DRG 545 ==
LOC: ANHED 09-02 03:22 → ANH2MED 09-02 04:52 → ANHICU 09-04 11:04 → ANH3MED 09-06 18:35
PROVIDERS: Internal Medicine; Internal Medicine Infectious Disease; Nurse Practitioner Adult Health; Nurse Practitioner Family; Nurse Practitioner Gerontology; Physician Assistant; Admitting Provider Internal Medicine; Emergency Provider Emergency Medicine; PCP Family Medicine; Visit Provider Internal Medicine
DX: M06.861 Other specified rheumatoid arthritis, right knee (principal); E43 Unspecified severe protein-calorie malnutrition; I63.9 Cerebral infarction, unspecified; M06.831 Other specified rheumatoid arthritis, right wrist; M17.11 Unilateral primary osteoarthritis, right knee; I95.9 Hypotension, unspecified; R29.810 Facial weakness; R41.82 Altered mental status, unspecified; M85.80 Other specified disorders of bone density and structure, unspecified site; I10 Essential (primary) hypertension; D50.0 Iron deficiency anemia secondary to blood loss (chronic); E78.5 Hyperlipidemia, unspecified; Z96.652 Presence of left artificial knee joint; Z86.718 Personal history of other venous thrombosis and embolism; Z68.25 Body mass index [BMI] 25.0-25.9, adult; D72.828 Other elevated white blood cell count; T38.0X5A Adverse effect of glucocorticoids and synthetic analogues, initial encounter
CPT/HCPCS: 20610; 20611; 36415; 36430; 36600; 70450; 70551; 71045; 73110; 73562; 80048; 80053; 80061; 80307; 81001; 82140; 82805; 82945; 82948; 83605; 83690; 83735; 84100; 84157; 84443; 85018; 85025; 85027; 85610; 85652; 85730; 86140; 86618; 86666; 86850; 86860; 86870; 86880; 86900; 86901; 86902; 86922; 87040; 87070; 87075; 87086; 87205; 87637; 89051; 89060; 92507; 92523; 92610; 93005; 93306; 93970; 93971; 96365; 96375; 97110; 97162; 97166; 97530; 97535; 99285; A9270; J0692; J0696; J1171; J1200; J1642; J1650; J2405; J3373; J3475; J3480; J7030; J7040; J7042; J7050; J7512; P9016

== ENCOUNTER 2025-10-01 18:31 | Emergency (ER) | payer MEDICARE, BC, OTHER, SELFPAY ==
[2025-10-01] VITALS (8 sets, daily range): BP systolic 123–142; BP diastolic 7–80; PULSE 69–78; RESP 14–25; TEMP 36.6–36.8; O2SAT 98–100
--- NOTE | ~2025-10-01 | XR_ITS ---
[id number] INDICATION: chronic pain; s/p arthrocentesis Oct 22 . COMPARISON: None. FINDINGS: Frontal, lateral and oblique views of the right knee demonstrate no acute fracture or dislocation. Suprapatellar joint effusion is noted. There is severe tricompartment osteoarthritis most significant in the lateral tibiofemoral compartment where there is loss of joint space and subchondral s clerosis. Marginal osteophytes are present. IMPRESSION: Radiographic examination of the right knee demonstrates no acute fracture or dislocation. Reviewed, dictated and finalized at location S. ICAL THERAPY NURSE IMPRESSION: Radiographic examination of the right knee demonstrates no acute fracture or di slocation.
--- NOTE | ~2025-10-01 | CT_ITS ---
CT brain wo con HISTORY:recent cva; progressing weakness COMPARISON: None. TECHNIQUE: Axial images were obtained of the head without intravenous contrast. FINDINGS: No acute intracranial hemorrhage, mass effect or midline shift. No extra-axial fluid collections. Chronic white matter microangiopathic changes are notedin the periventricular white matter.The calvarium is intact. Visualized paranasal sinuses and mastoid air cells are clear. IMPRESSION: No acute intracranial hemorrhage or extra axial fluid collections. Chronic white matter microangiopathic changes are noted in the periventricular white matter. All CT scans at this facility are performed using low dose modulation techniques as appropriate to perform exam including the following: automated exposure control; use of iterative reconstruction technique; adjustment of the mA and/or kV according to patient size (this includes techniques or standardized protocols for targeted exams where dose is matched to indication/reason for exam). Reviewed, dictated and finalized at location S. PRIZER IMPRESSION: No acute intracranial hemorrhage or extra axial fluid collections. Chronic white matter microangiopathic changes are noted in the periventricular white matter. All CT scans at this facility are performed using low dose modulation techniqu es as appropriate to perform exam including the following: automated exposure c ontrol; use of iterative reconstruction technique; adjustment of the mA and/or kV according to patient size (this includes techniques or standardized protocol s for targeted exams where dose is matched to indication/reason for exam).
--- NOTE | ~2025-10-01 | XR_ITS ---
XR chest 1V INDICATION:weakness . REFERENCE: None FINDINGS: A single AP of the chest demonstrates normal heart size. The lungs are clear. There is no evidence of pneumothorax or pleural effusion. Left Port-A-Cath is in place. Severe degenerative changes are noted in bilateral shoulder joints. IMPRESSION: No acute pulmonary findings. Reviewed, dictated and finalized at location S. NALIST
--- NOTE | 2025-10-01 19:13 | ED_ITS ---
HPI - Weakness General Chief complaint: Weakness Stated complaint: weakness Time Seen by Provider: 10/01/25 19:09 Source: patient and RN notes reviewed Mode of arrival: EMS Limitations: no limitations History of Present Illness HPI Narrative: Patient presents with report of weakness. She reports that she has a history of right knee problems and then recently had a stroke for which she was discharged to [facility] on 09/18/2025. She reports her weakness is generalized. She states at the time of arrival at the nursing home facility she could walk 38 ft and seems to have deconditioned to the point where today she can only walk 1 ft and is requiring more and more assistance. She reports that she was told that she had a fever of 101 point something degrees F however she denies feeling warm at that time. She does generally feel unwell. It was initially reported that she was having urinary discomfort however she denies this. She denies being on anticoagulation. Patient denies headache specifically although she says occasionally she will experience a sharp pain in her head. She is reportedly more lethargic. She denies any falls. She denies any abdominal pain, chest pain, shortness of breath, diarrhea. Related Data Home Medications ?Medication ?Instructions ?Recorded ?Confirmed ?Last Taken ?Type polyethylene glycol 3350 17 17 g PO DAILY 07/09/2412/06/24 History gram/dose oral powder (Miralax) aspirin 81 mg tablet 81 mg PO DAILY 05/15/2508/2008/31/25 History hydrochlorothiazide 12.5 mg capsule 12.5 mg PO DAILY 0 05/15/25 09/02/25 09/01/25 History prednisone 20 mg tablet 5 mg PO BID 05/15/25 5 08/31/25 History pantoprazole 40 mg tablet,delayed 40 mg PO DAILY 09/0209/02/25 08/31/25 History release pregabalin 50 mg capsule 50 mg PO BID 09/02/2508/31/25 History Allergies Allergy/AdvReac Type Severity Reaction Status Date / Time amlodipine Allergy Severe Hives Verified 10/02/25 07:05 banana Allergy Severe throat Verified 10/02/25 07:05 Itching latex Allergy Severe Redness of Verified 10/02/25 07:05 Skin, baker lisinopril Allergy Severe Difficulty Verified 10/02/25 07:05 Breathing Penicillins Allergy Severe Rash Verified 10/02/25 07:05 pseudoephedrine Allergy Severe Difficulty Verified 10/02/25 07:05 Breathing tetracycline Allergy Severe Difficulty Verified 10/02/25 07:05 Breathing tree nut Allergy Severe Other Verified 10/02/25 07:05 dextromethorphan Allergy Intermediate Rash Verified 10/02/25 07:05 prednisone Allergy Unknown Other Verified 10/02/25 07:05 acetaminophen AdvReac Intermediate Nausea and Verified 10/02/25 07:05 Vomiting aspirin AdvReac Intermediate Nausea and Verified 10/02/25 07:05 Vomiting vancomycin AdvReac Intermediate Other Verified 10/02/25 07:05 Sulfa (Sulfonamide AdvReac Mild Other Verified 10/02/25 07:05 Antibiotics) [facility] Past Medical History Medical History Effusion of right knee Severe protein-calorie malnutrition Unilateral primary osteoarthritis, right knee DVT (deep venous thrombosis) No longer on anticoagulation Chronic blood loss anemia History of seizure (~11/2023) Following surgery for septic arthritis. Osteopenia Moderate protein malnutrition Diastolic dysfunction Echo 04/2024 demonstrated EF of 60 65%, mildly increased left ventricular wall thickness, grade 1 diastolic dysfunction, right ventricular function normal, atrial septum appears aneurysmal, moderate aortic valve calcification, mild mitral valve regurgitation, mild tricuspid valve regurgitation Occult blood in stools Hyperlipidemia Hypertension Rheumatoid arthritis Surgical History Surgical History History of colonoscopy (07/17/24) Internal hemorrhoids, diverticulosis Normal esophagogastroduodenoscopy (EGD) (07/17/24) PEG (percutaneous endoscopic gastrostomy) status Place at [facility] in January 2024 due to dysphagia, remains in place due to moderate to severe protein calorie malnutrition with approximately 50 lb weight loss since August 2023. History of total left knee replacement Port-A-Cath in place Left chest wall H/O right knee surgery (~11/2023) Washout due to septic arthritis November 2023 H/O: hysterectomy Family History Family History Father , black lung disease No problems noted. Mother , from OJI gangrene. No problems noted. Sibling Acute myocardial infarction Prednisolone adverse reaction Sibling No problems noted. Social History Social History Social History: Code status: DNR/DNI (per patient request) she states that she does not think that her would agree with this but this is her desire. [facility] documentation lists Full Code and POLST signed 09/18/25 Surrogate decision maker: Smoking status: Never smoker Second hand tobacco smoke exposure: No Alcohol intake: never Substance use: never Substance use type: does not use Do You Feel Safe in your Home?: Yes Lack of Transportation: YES Lack of Food: Never True Current Housing: I Have Housing Concerned About Future Housing: No Difficulty Paying Gas/Electric Bills: No Difficulty Paying for Meds: No Currently Unemployed: No Education: Master's Degree or Higher Difficulty w/ Childcare or Family Care: No Living arrangements: long term Additional living arrangements comments: previously with family; at [facility] since 09/18/25 Occupation/Education: retired 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 HEAD: Normocephalic, atraumatic. EYES: Non injected, non icteric ENT: Nares clear, no rhinorrhea or epistaxis. Gross auditory acuity intact. NECK: Supple. No meningismus. CHEST: Speaking in full sentences. No respiratory distress. Port HEART: Regular rate and rhythm. . ABDOMEN: Soft, nondistended. No rigidity or guarding. Not peritoneal EXTREMITIES: Mild tenderness to palpation right knee SKIN: Warm, dry, no rash. NEURO: No focal deficits. Alert and oriented. Answering questions. Following commands. Normal speech without aphasia or dysarthria. PSYCH: Normal mood and affect. Course Vital Signs Vital signs: Vital Signs Temperature 98.3 F 10/01/25 18:35 Pulse Rate 78 10/01/25 18:35 Respiratory Rate 14 10/01/25 18:35 Blood Pressure 133/7 L 10/01/25 18:35 Pulse Oximetry 99 10/01/25 18:35 Oxygen Delivery Room Air 10/01/25 18:35 Temperature 97.8 F 10/01/25 23:01 Pulse Rate 70 10/01/25 23:01 Respiratory Rate 19 10/01/25 23:01 Blood Pressure 142/80 H 10/01/25 23:01 Pulse Oximetry 100 10/01/25 23:01 Oxygen Delivery Room Air 10/01/25 18:35 MDM - Weakness MDM Narrative Medical decision making narrative: Patient presents with report of generalized weakness and feeling unwell. It had been reported that she had a fever of 101? F but patient denies feeling warm at the time. It had also been reported that she was experiencing urinary discomfort however patient denies this. Recent history of a stroke for which she has been residing at [facility] since 09/18/2025. In the emergency department she is afebrile with acceptable vital signs. The initial diastolic blood pressure is initially entered her only soleus 7 with makes a mean arterial pressure in the 40s however this is confirmed to be a financial data analyst error and will be corrected. UA unremarkable. Patient has a very leukocytosis; significantly decreased from previous per review of the EMR. She has a macrocytic anemia for which the hemoglobin is stable from previous. Her platelets have also normalized after being elevated per review of the EMR. Hypoalbuminemia, chronic. Troponin, thyroid, and viral swab normal. Attempted to road test patient but she does tell the tech that she does not feel comfortable doing so as she is wheelchair bound in the facility. In sum then, no clear etiology for her symptoms . Patient already has PT services that she is doing at the facility so no clear indication for admission though I do believe she should follow-up with primary care physician/facility medical geneticist. Otherwise stable for discharge. EMS transportation provided back to facility given her reported wheelchair/bed-bound status at this time. Differential Diagnosis Differential diagnosis: Likely acute myocardial infarction, anemia, hypoglycemia, hypothyroidism, rhabdomyolysis, sepsis, dehydration and other (recrudesence; acute viral syndrome; transition/conversion from initial stroke; PNA; UTI) Medical Records Attestation: I reviewed the patient's medical records. Medical records narrative: Left shoulder Xray obtained outpatient 09/30/25 Lab Data Attestation: I reviewed the patient's lab results. 10/01/25 20:53 10/01/25 20:53 Labs: Lab Results 10/01/25 10/01/25 10/01/25 Range/Units 20:53 20:53 20:53 WBC 10.2 H (4.5-10.0) K/mm3 RBC 2.67 L (4.2-5.4) M/mm3 Hgb 8.7 L (12.0-15.0) g/dL Hct 27.5 L (37.0-47.0) % MCV 103.0 H (80-100) fl MCH 32.6 (26-34) pg MCHC 31.6 L (32-36) g/dl RDW 17.8 H (11.5-14.5) % Plt Count 191 D (150-375) k/mm3 MPV 10.2 (7.4-10.4) fl Immature Gran % (Auto) 4.2 H (0-0.5) % Neut % (Auto) 45.9 (45.5-73.1) % Lymph % (Auto) 33.0 (18.3-44.2) % Lincoln % (Auto) 8.3 (2.6-8.5) % Eos % (Auto) 7.9 H (0-4.4) % Baso % (Auto) 0.7 (0.2-1.2) % Lymph # (Auto) 3.36 H (0.9-3.2) K/mm3 Lincoln # (Auto) 0.8 H (0.1-0.6) K/mm3 Eos # (Auto) 0.8 H (0-0.3) K/mm3 Baso # (Auto) 0.1 (0.0-0.1) K/mm3 Abs Immat Gran (auto) 0.43 H (0.00-0.031) K/mm3 Absolute Neuts (auto) 4.7 (1.3-6.7) K/mm3 Absolute Nucleated RBC 0.020 H (0.0-0.012) K/mm3 Nucleated RBC % 0.2 (0.0-0.2) % Sodium 134 L (137-145) mmol/L Potassium 3.4 (3.4-5.0) mmol/L Chloride 101 (98-107) mmol/L Carbon Dioxide 30 (22-30) mmol/L Anion Gap 3 L (4-12) mmol/L BUN 23 H (7-17) mg/dL Creatinine 0.66 L (0.7-1.0) mg/dL Estim Creat Clear Calc 57 ml/min Estimated GFR > 60 (59 - ) Glucose 112 H (65-110) mg/dL Calcium 8.3 L (8.4-10.2) mg/dL Magnesium 1.7 Cancelled (1.6-2.3) mg/dL Total Bilirubin 0.5 (0.2-1.3) mg/dL AST 21 (14-36) U/L ALT 12 (6-35) U/L Alkaline Phosphatase 74 (38-126) U/L Total Creatine Kinase < 20 L Cancelled (30-135) U/L Troponin I < 0.012 (0.000-0.034) ng/mL Total Protein (6.3-8.2) g/dL Albumin (3.5-5.1) g/dL TSH (0.465-4.680) uIU/mL Urine Color (Yellow) Urine Appearance (Clear) Urine pH (5.0-9.0) Ur Specific Margaret (1.001-1.035) Urine Protein (Negative) mg/dL Urine Glucose (UA) (Negative) mg/dL Urine Ketones (Negative) mg/dL Ur Blood (Man) (Negative) Urine Nitrate (Negative) Urine Bilirubin (Negative) Urine Urobilinogen (<2.0) mg/dL Leukocyte Esterase Rfl (Negative) JACKI/UL Influenza A (RT-PCR) (Negative) Influenza B (RT-PCR) (Negative) RSV (RT-PCR) (Negative) SARS-CoV-2 RNA (RT-PCR) (Negative) 10/01/25 10/01/25 10/01/25 Range/Units 20:53 20:53 20:55 WBC (4.5-10.0) K/mm3 RBC (4.2-5.4) M/mm3 Hgb (12.0-15.0) g/dL Hct (37.0-47.0) % MCV (80-100) fl MCH (26-34) pg MCHC (32-36) g/dl RDW (11.5-14.5) % Plt Count (150-375) k/mm3 MPV (7.4-10.4) fl Immature Gran % (Auto) (0-0.5) % Neut % (Auto) (45.5-73.1) % Lymph % (Auto) (18.3-44.2) % Lincoln % (Auto) (2.6-8.5) % Eos % (Auto) (0-4.4) % Baso % (Auto) (0.2-1.2) % Lymph # (Auto) (0.9-3.2) K/mm3 Lincoln # (Auto) (0.1-0.6) K/mm3 Eos # (Auto) (0-0.3) K/mm3 Baso # (Auto) (0.0-0.1) K/mm3 Abs Immat Gran (auto) (0.00-0.031) K/mm3 Absolute Neuts (auto) (1.3-6.7) K/mm3 Absolute Nucleated RBC (0.0-0.012) K/mm3 Nucleated RBC % (0.0-0.2) % Sodium (137-145) mmol/L Potassium (3.4-5.0) mmol/L Chloride (98-107) mmol/L Carbon Dioxide (22-30) mmol/L Anion Gap (4-12) mmol/L BUN (7-17) mg/dL Creatinine (0.7-1.0) mg/dL Estim Creat Clear Calc ml/min Estimated GFR (59 - ) Glucose (65-110) mg/dL Calcium (8.4-10.2) mg/dL Magnesium (1.6-2.3) mg/dL Total Bilirubin (0.2-1.3) mg/dL AST (14-36) U/L ALT (6-35) U/L Alkaline Phosphatase (38-126) U/L Total Creatine Kinase (30-135) U/L Troponin I Cancelled (0.000-0.034) ng/mL Total Protein 6.4 (6.3-8.2) g/dL Albumin 2.8 L (3.5-5.1) g/dL TSH 2.390 Cancelled (0.465-4.680) uIU/mL Urine Color Yellow (Yellow) Urine Appearance Clear (Clear) Urine pH 5.5 (5.0-9.0) Ur Specific Margaret 1.021 (1.001-1.035) Urine Protein Negative (Negative) mg/dL Urine Glucose (UA) Negative (Negative) mg/dL Urine Ketones Negative (Negative) mg/dL Ur Blood (Man) Negative (Negative) Urine Nitrate Negative (Negative) Urine Bilirubin Negative (Negative) Urine Urobilinogen 1.0 (<2.0) mg/dL Leukocyte Esterase Rfl Negative (Negative) JACKI/UL Influenza A (RT-PCR) Negative (Negative) Influenza B (RT-PCR) Negative (Negative) RSV (RT-PCR) Negative (Negative) SARS-CoV-2 RNA (RT-PCR) Negative (Negative) Imaging Data Radiologist's impression: Impressions Head CT 10/01/25 19:58 IMPRESSION: No acute intracranial hemorrhage or extra axial fluid collections. Chronic white matter microangiopathic changes are noted in the periventricular white matter. All CT scans at this facility are performed using low dose modulation techniques as appropriate to perform exam including the following: automated exposure control; use of iterative reconstruction technique; adjustment of the mA and/or kV according to patient size (this includes techniques or standardized protocols for targeted exams where dose is matched to indication/reason for exam). Chest X-Ray 10/01/25 20:31 IMPRESSION: No acute pulmonary findings. Knee X-Ray 10/01/25 20:34 IMPRESSION: Radiographic examination of the right knee demonstrates no acute fracture or dislocation. ECG Data EKG #1: Attestation: I personally reviewed and interpreted this ECG as follows: ECG completion date: 10/01/25 ECG completion time: 21:16 Interpretation: Normal sinus rhythm at a rate of 60 beats per minute. CA interval 178. QRS 91. QT/QTC 396/422. R-wave progression across the precordial leads. T-wave inversion in 3 but upright in contiguous inferior leads. No other T-wave inversions. Discharge Plan Discharge Clinical Impression: Generalized weakness, Anemia, macrocytic, Hypoalbuminemia Patient Disposition: NH [facility]/Asst Living Condition: Stable Instructions: Antibiotic Form, Weakness (ED), Anemia (ED) Additional Instructions: No clear cause of patient's symptoms was identified through her workup. Her anemia is stable and her other labs are reassuring. Viral swab negative. Urinalysis and chest xray without signs of infection. Continue participating in physical therapy at the facility. Follow-up with primary care physician. Return to the emergency department with any new or worsening symptoms. Continue taking all medications as prescribed in the interim. Patient Language: Guatemalan Prescriptions: No Action prednisone 20 mg tablet 5 mg PO BID aspirin 81 mg tablet 81 mg PO DAILY hydrochlorothiazide 12.5 mg capsule 12.5 mg PO DAILY metoprolol succinate [Toprol XL] 25 mg Tablet Extended Release 24 Hr 25 mg PO QAM Qty: 60 0RF bisacodyl [Laxative (bisacodyl)] 5 mg Tablet,Delayed Release (Dr/Ec) 10 mg PO QAM PRN (Reason: Constipation) Qty: 30 0RF ferrous sulfate 325 mg (65 mg iron) Tablet,Delayed Release (Dr/Ec) 325 mg PO BIDWM Qty: 60 0RF pregabalin 50 mg capsule 50 mg PO BID pantoprazole 40 mg tablet,delayed release (DR/EC) 40 mg PO DAILY sennosides [Senokot] 8.6 mg Tablet 8.6 mg PO HS 7 Days Qty: 7 0RF clopidogrel 75 mg Tablet 75 mg PO QAM 30 Days Qty: 30 0RF Saccharomyces boulardii [Florastor] 250 mg Capsule 250 mg PO TID 10 Days Qty: 30 0RF tramadol 50 mg Tablet 50 mg PO Q12H PRN (Reason: Pain 4-6) 10 Days Qty: 12 0RF polyethylene glycol 3350 [Miralax] 17 gram/dose Powder 17 g PO DAILY Follow-up/Referrals: Angel,Ildefonso Shea DO [Non-Staff, Unknown] Referral Note: per long term documentation Collado,MD Kobe [Primary Care Provider, Unknown] Stand Alone Forms: Custodial Discharge Time of Disposition: 22:05
--- NOTE | 2025-10-01 19:14 | ECG_ITS ---
Test Date: 2025-10-01 21:16:51 Measurements Intervals [place] Rate: 68 P: 26 TN: 178 QRS: 2 QRSD: 91 T: 17 QT: 396 QTc: 422 Interpretive Statements SINUS RHYTHM VOLTAGE CRITERIA FOR LVH, CONSIDER NORMAL VARIANT Electronically Signed On 10-01-2025 22:35:38 [employer] by Garrison Sloan D.O
[2025-10-01 21:17] LABS: Hematocrit 27.5 % (37.0-47.0); Hemoglobin 8.7 g/dL (12.0-15.0); Immature Granulocyte Percent A 4.2 % (0-0.5); Lymphocytes Absolute Auto 3.36 K/mm3 (0.9-3.2); Mean Corpuscular HGB Conc 31.6 g/dl (32-36); Mean Corpuscular Hemoglobin 32.6 pg (26-34); Mean Corpuscular Volume 103.0 fl (80-100); Nucleated Red Blood Cells Absolute Auto 0.020 K/mm3 (0.0-0.012); Nucleated Red Blood Cells Perc 0.2 % (0.0-0.2); Platelet Count Result 191 k/mm3 (150-375); Red Blood Count 2.67 M/mm3 (4.2-5.4); White Blood Count 10.2 K/mm3 (4.5-10.0)
[2025-10-01 21:20] LABS: Add Urine Microscopic? NO; Appearance Urine Clear (Clear); Glucose Urine UA Negative (Negative); Leukocyte Esterase Ur Negative LEU/UL (Negative); Nitrate Urine Negative (Negative); Specific Grav Ur 1.021 (1.001-1.035)
[2025-10-01 21:31] LABS: Alanine Aminotransferase 12 U/L (6-35); Albumin Level 2.8 g/dL (3.5-5.1); Alkaline Phosphatase 74 U/L (38-126); Anion Gap 3 mmol/L (4-12); Aspartate Amino Transferase 21 U/L (14-36); Bilirubin,Total 0.5 mg/dL (0.2-1.3); Blood Urea Nitrogen 23 mg/dL (7-17); Calcium 8.3 mg/dL (8.4-10.2); Carbon Dioxide 30 mmol/L (22-30); Chloride 101 mmol/L (98-107); Creatine Kinase < 20 U/L (30-135); Estimated CRCL calculation 57 ml/min; Estimated Glomerular Filt Rate > 60; Glucose 112 mg/dL (65-110); Magnesium 1.7 mg/dL (1.6-2.3); Potassium 3.4 mmol/L (3.4-5.0); Sodium 134 mmol/L (137-145); Total Protein 6.4 g/dL (6.3-8.2)
[2025-10-01 21:43] LABS: Troponin I < 0.012 ng/mL (0.000-0.034)
[2025-10-01 21:53] LABS: Influenza A QL RT-PCR Negative (Negative); Influenza B QL RT-PCR Negative (Negative); RSV RNA, RT-PCR Negative (Negative); SARS-CoV-2 RNA PCR Negative (Negative)
[2025-10-01 22:02] LABS: Thyroid Stimulating Hormone 2.390 uIU/mL (0.465-4.680)
[2025-10-01] MEDS: HEPARIN SODIUM LOCK FLUSH 500 UNITS/5 ML VIAL IV PUSH (23:05)
--- NOTE | 2025-10-01 23:12 | PC.NURSE ---
Report to transport team
== END 2025-10-01 23:12 ==
PROVIDERS: Emergency Provider Student in an Organized Health Care Education/Training Program; PCP Family Medicine
DX: R53.1 Weakness (principal); E88.09 Other disorders of plasma-protein metabolism, not elsewhere classified; D53.9 Nutritional anemia, unspecified; Z20.822 Contact with and (suspected) exposure to COVID-19; I11.9 Hypertensive heart disease without heart failure; E78.5 Hyperlipidemia, unspecified; D50.0 Iron deficiency anemia secondary to blood loss (chronic); M17.11 Unilateral primary osteoarthritis, right knee; M85.80 Other specified disorders of bone density and structure, unspecified site; Z99.3 Dependence on wheelchair; M06.9 Rheumatoid arthritis, unspecified; Z66 Do not resuscitate; Z86.73 Personal history of transient ischemic attack (TIA), and cerebral infarction without residual deficits; Z86.718 Personal history of other venous thrombosis and embolism; Z96.652 Presence of left artificial knee joint; Z90.710 Acquired absence of both cervix and uterus; Z79.899 Other long term (current) drug therapy; Z79.82 Long term (current) use of aspirin; Z79.02 Long term (current) use of antithrombotics/antiplatelets
CPT/HCPCS: 36415; 70450; 71045; 73560; 80053; 81003; 82550; 83735; 84443; 84484; 85025; 87637; 93005; 96374; 99284; J1642

== ENCOUNTER 2025-10-05 13:32 | Emergency (ER) | payer MEDICARE, BC, OTHER, SELFPAY ==
[2025-10-05] VITALS (8 sets, daily range): BP systolic 115–151; BP diastolic 60–78; PULSE 69–84; RESP 14–28; TEMP 36.9; O2SAT 94–100
--- NOTE | ~2025-10-05 | CT_ITS ---
EXAMINATION: CTA chest PE protocol, 10/05/2025 15:00 HEEL SPLITTER HISTORY: chest pain, r/o pe COMPARISON: No comparisons available. TECHNIQUE: CTA examination is obtained with contrast CTA examination technique is performed with arterial phase of contrast-enhancement. 3-D reconstruction with thin MIP axial and MPR coronal imaging is provided Isovue 300, 92cc injected IV. One or more of the following dose reduction techniques were used: automated exposure control, adjustment of the mA and/or kV according to patient size, use of iterative reconstruction technique. FINDINGS: No significant coronary calcification is present ([id number]) LUNGS: Small bilateral simple appearing pleural effusions. Contrast bolus adequate, there is no pulmonary embolism identified. No tracheomalacia. No bronchiectasis. Moderate pulmonary venous congestion. Small basilar infiltrates. HEART AND PERICARDIUM: Moderate cardiomegaly. No pericardial effusion. AORTA: No aneurysm.. PULMONARY ARTERIES: No pulmonary embolism ADENOPATHY/MEDIASTINUM: None. LIMITED VIEWS OF THE ABDOMEN: No thickening of the visualized esophagus. There are partially imaged probable renal cysts the largest right kidney 2.5 x 2.5 cm. OSSEOUS STRUCTURES: No sclerotic or lytic lesions. No sclerotic or lytic lesions. No acute rib fractures are identified. OVERLYING SOFT TISSUES: Unremarkable. THYROID: The thyroid is unremarkable. IMPRESSION: 1. Negative for pulmonary embolism. CHF. Superimposed probable bronchopneumonia Reviewed, dictated and finalized at location P. SPLITTER
--- NOTE | 2025-10-05 13:47 | ECG_ITS ---
Test Date: 2025-10-05 13:55:36 Measurements Intervals Fellows Rate: 70 P: 5 MD: 161 QRS: 1 QRSD: 92 T: 9 QT: 404 QTc: 438 Interpretive Statements SINUS RHYTHM VOLTAGE CRITERIA FOR LVH, CONSIDER NORMAL VARIANT Electronically Signed On 10-06-2025 11:22:49 ACQUISITIONS ANALYST by Garrison Sloan D.O
--- NOTE | 2025-10-05 14:12 | ED_ITS ---
HPI - Chest Pain General Chief Complaint: Chest Pain Stated Complaint: CP, AMS, weakness Time Seen by Provider: 10/05/25 13:56 Source: patient and EMS Mode of arrival: EMS Limitations: no limitations History of Present Illness HPI narrative: This is a 75-year-old female history of rheumatoid arthritis, CVA who presents to the ED for chest pain. In pieces easy for the past couple days, she has been having intermittent left lower chest pain described as a sharpness. She thought this was related to food but yesterday she had an episode the last approximate 2 hours long after lunch. She has not have the pain at this time. Denies shortness of breath, fevers, chills, nausea, vomiting. She has previously been on blood thinners but was stopped on this a year ago for prior DVTs. Related Data Home Medications ?Medication ?Instructions ?Recorded ?Confirmed ?Last Taken ?Type polyethylene glycol 3350 17 17 g PO DAILY 07/09/2412/06/24 History gram/dose oral powder (Miralax) aspirin 81 mg tablet 81 mg PO DAILY 05/15/2508/2008/31/25 History hydrochlorothiazide 12.5 mg capsule 12.5 mg PO DAILY 0 05/15/25 09/02/25 09/01/25 History prednisone 20 mg tablet 5 mg PO BID 05/15/25 5 08/31/25 History pantoprazole 40 mg tablet,delayed 40 mg PO DAILY 09/0209/02/25 08/31/25 History release pregabalin 50 mg capsule 50 mg PO BID 09/02/2508/31/25 History Allergies Allergy/AdvReac Type Severity Reaction Status Date / Time amlodipine Allergy Severe Hives Verified 10/05/25 13:42 banana Allergy Severe throat Verified 10/05/25 13:42 Itching latex Allergy Severe Redness of Verified 10/05/25 13:42 Skin, baker lisinopril Allergy Severe Difficulty Verified 10/05/25 13:42 Breathing Penicillins Allergy Severe Rash Verified 10/05/25 13:42 pseudoephedrine Allergy Severe Difficulty Verified 10/05/25 13:42 Breathing tetracycline Allergy Severe Difficulty Verified 10/05/25 13:42 Breathing tree nut Allergy Severe Other Verified 10/05/25 13:42 dextromethorphan Allergy Intermediate Rash Verified 10/05/25 13:42 prednisone Allergy Unknown Other Verified 10/05/25 13:42 acetaminophen AdvReac Intermediate Nausea and Verified 10/05/25 13:42 Vomiting aspirin AdvReac Intermediate Nausea and Verified 10/05/25 13:42 Vomiting vancomycin AdvReac Intermediate Other Verified 10/05/25 13:42 Sulfa (Sulfonamide AdvReac Mild Other Verified 10/05/25 13:42 Antibiotics) Review of Systems 2 Review of Systems: Gen.: Denies fevers or chills Eyes: Denies eye pain or visual change ENT: Denies congestion Respiratory: Denies shortness of breath or cough CV: As per HPI GI: Denies abdominal pain nausea, emesis or diarrhea denies burning, urgency, frequency or hematuria Musculoskeletal: Denies back pain or muscle pain Neuro: Denies numbness, tingling, weakness or focal weakness Skin: Denies rash Except as documented, all other systems reviewed and negative PMFSH Past Medical History Medical History Effusion of right knee Severe protein-calorie malnutrition Unilateral primary osteoarthritis, right knee DVT (deep venous thrombosis) No longer on anticoagulation Chronic blood loss anemia History of seizure (~11/2023) Following surgery for septic arthritis. Osteopenia Moderate protein malnutrition Diastolic dysfunction Echo 04/2024 demonstrated EF of 60 65%, mildly increased left ventricular wall thickness, grade 1 diastolic dysfunction, right ventricular function normal, atrial septum appears aneurysmal, moderate aortic valve calcification, mild mitral valve regurgitation, mild tricuspid valve regurgitation Occult blood in stools Hyperlipidemia Hypertension Rheumatoid arthritis Surgical History Surgical History History of colonoscopy (07/17/24) Internal hemorrhoids, diverticulosis Normal esophagogastroduodenoscopy (EGD) (07/17/24) PEG (percutaneous endoscopic gastrostomy) status Place at [facility] in January 2024 due to dysphagia, remains in place due to moderate to severe protein calorie malnutrition with approximately 50 lb weight loss since August 2023. History of total left knee replacement Port-A-Cath in place Left chest wall H/O right knee surgery (~11/2023) Washout due to septic arthritis November 2023 H/O: hysterectomy Family History Family History Father , black lung disease No problems noted. Mother , from OJI gangrene. No problems noted. Sibling Acute myocardial infarction Prednisolone adverse reaction Sibling No problems noted. Social History Social History Social History: Code status: DNR/DNI (per patient request) she states that she does not think that her would agree with this but this is her desire. snf documentation lists Full Code and POLST signed 09/18/25 Surrogate decision maker: Smoking status: Never smoker Second hand tobacco smoke exposure: No Alcohol intake: never Substance use: never Substance use type: does not use Do You Feel Safe in your Home?: Yes Lack of Transportation: YES Lack of Food: Never True Current Housing: I Have Housing Concerned About Future Housing: No Difficulty Paying Gas/Electric Bills: No Difficulty Paying for Meds: No Currently Unemployed: No Education: Master's Degree or Higher Difficulty w/ Childcare or Family Care: No Living arrangements: senior living Additional living arrangements comments: previously with family; at [facility] since 09/18/25 Occupation/Education: retired 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 CARDIOVASCULAR: Regular rate and rhythm without murmurs rubs or gallops. Mild tenderness over the left lower chest wall with no crepitus. ABDOMINAL: Soft, nontender, nondistended, no rebound or guarding MUSCULOSKELETAl: Moves all extremities. No clubbing, cyanosis or edema. NEURO: Awake and alert. Following commands, speech normal, no focal deficits SKIN:: Warm, dry. No rashes lesions or abrasions PSYCHIATRIC: Normal affect/mood, Course Vital Signs Vital signs: Vital Signs Temperature 98.5 F 10/05/25 13:32 Pulse Rate 71 10/05/25 13:32 Respiratory Rate 20 10/05/25 13:32 Pulse Oximetry 98 10/05/25 13:32 Oxygen Delivery Room Air 10/05/25 13:32 Temperature 98.5 F 10/05/25 18:41 Pulse Rate 74 10/05/25 18:41 Respiratory Rate 27 H 10/05/25 18:41 Blood Pressure 137/74 10/05/25 18:41 Pulse Oximetry 96 10/05/25 18:41 Oxygen Delivery Room Air 10/05/25 13:32 MDM - Chest Pain MDM Narrative Medical decision making narrative: 75-year-old female Presenting for chest pain. Patient was sent by senior living for altered mental status however patient denies this adamantly. On initial evaluation patient was in no acute distress afebrile, hemodynamic stable. Differentials include but are not limited to: ACS, PE, PNA, bronchitis, costochondritis, pleurisy, viral syndrome, GERD Notable exam findings: Tenderness over the left lower anterior chest wall, heart and lungs clear. I personally reviewed the patient's lab result. Notable lab findings: Anemia at 8.5, no leukocytosis, D-dimer elevated at 5.48, mild hyponatremia and mild hypokalemia. Lipase low. Troponin within normal limits. CTA chest showed bibasilar infiltrates Potassium was replenished. Patient was given Rocephin doxycycline. She has an allergy to penicillins so she will be started on cefpodoxime outpatient as well as doxycycline. She was advised follow-up with her PCP in the next week for re- evaluation. Patient was agreeable to this plan. Given strict return precautions. Medical Records Data Attestation: I reviewed the patient's medical records. Lab Data Attestation: I reviewed the patient's lab results. 10/05/25 14:22 10/05/25 14:22 Labs: Lab Results 10/05/25 Range/Units 14:22 WBC 10.0 (4.5-10.0) K/mm3 RBC 2.65 L (4.2-5.4) M/mm3 Hgb 8.5 L (12.0-15.0) g/dL Hct 27.1 L (37.0-47.0) % MCV 102.3 H (80-100) fl MCH 32.1 (26-34) pg MCHC 31.4 L (32-36) g/dl RDW 16.3 H (11.5-14.5) % Plt Count 239 (150-375) k/mm3 MPV 9.5 (7.4-10.4) fl Immature Gran % (Auto) 2.6 H (0-0.5) % Neut % (Auto) 58.6 (45.5-73.1) % Lymph % (Auto) 26.0 (18.3-44.2) % Wright % (Auto) 7.0 (2.6-8.5) % Eos % (Auto) 5.4 H (0-4.4) % Baso % (Auto) 0.4 (0.2-1.2) % Lymph # (Auto) 2.61 (0.9-3.2) K/mm3 Wright # (Auto) 0.7 H (0.1-0.6) K/mm3 Eos # (Auto) 0.5 H (0-0.3) K/mm3 Baso # (Auto) 0.0 (0.0-0.1) K/mm3 Abs Immat Gran (auto) 0.26 H (0.00-0.031) K/mm3 Absolute Neuts (auto) 5.9 (1.3-6.7) K/mm3 Absolute Nucleated RBC 0.000 (0.0-0.012) K/mm3 Nucleated RBC % 0.0 (0.0-0.2) % PT 15.3 H (11.1-14.7) Seconds INR 1.2 APTT 73.0 H (22.3-36.8) Seconds D-Dimer 5.48 H (<0.48) ug/mL Sodium 134 L (137-145) mmol/L Potassium 3.2 L (3.4-5.0) mmol/L Chloride 100 (98-107) mmol/L Carbon Dioxide 30 (22-30) mmol/L Anion Gap 4 (4-12) mmol/L BUN 15 D (7-17) mg/dL Creatinine 0.70 (0.7-1.0) mg/dL Estim Creat Clear Calc Not Reportable Estimated GFR > 60 (59 - ) Glucose 139 H (65-110) mg/dL Calcium 8.4 (8.4-10.2) mg/dL Total Bilirubin 0.6 (0.2-1.3) mg/dL AST 23 (14-36) U/L ALT 15 (6-35) U/L Alkaline Phosphatase 90 (38-126) U/L Troponin I < 0.012 (0.000-0.034) ng/mL Total Protein 6.6 (6.3-8.2) g/dL Albumin 2.8 L (3.5-5.1) g/dL Lipase 20 L (23-300) U/L Imaging Data Radiologist's impression: Impressions Chest CTA 10/05/25 15:38 IMPRESSION: 1. Negative for pulmonary embolism. CHF. Superimposed probable bronchopneumonia Discharge Plan Discharge Clinical Impression: Anemia Bilateral pneumonia Qualifiers: Pneumonia type: due to unspecified organism Lung location: lower lobe of lung Q ualified Code(s): J18.9 - Pneumonia, unspecified organism Patient Disposition: Home Condition: Stable Instructions: Antibiotic Form, Community Acquired Pneumonia (ED) Additional Instructions: There was no evidence of a PE. You do have bilateral pneumonia which is likely the cause of her symptoms. Your given a prescription for cefpodoxime and azithromycin take these as prescribed. Follow-up with your PCP in the next week for re-evaluation. Return to the ED for any new worsening symptoms. Patient Language: Swedish Prescriptions: New cefpodoxime 200 mg tablet 200 mg PO BID Qty: 10 0RF Rx Instructions: must administer with a meal/food azithromycin 250 mg tablet 250 mg PO DAILY 4 Days Qty: 4 0RF Rx Instructions: begin taking 10/06/25 No Action prednisone 20 mg tablet 5 mg PO BID aspirin 81 mg tablet 81 mg PO DAILY hydrochlorothiazide 12.5 mg capsule 12.5 mg PO DAILY metoprolol succinate [Toprol XL] 25 mg Tablet Extended Release 24 Hr 25 mg PO QAM Qty: 60 0RF bisacodyl [Laxative (bisacodyl)] 5 mg Tablet,Delayed Release (Dr/Ec) 10 mg PO QAM PRN (Reason: Constipation) Qty: 30 0RF ferrous sulfate 325 mg (65 mg iron) Tablet,Delayed Release (Dr/Ec) 325 mg PO BIDWM Qty: 60 0RF pregabalin 50 mg capsule 50 mg PO BID pantoprazole 40 mg tablet,delayed release (DR/EC) 40 mg PO DAILY sennosides [Senokot] 8.6 mg Tablet 8.6 mg PO HS 7 Days Qty: 7 0RF clopidogrel 75 mg Tablet 75 mg PO QAM 30 Days Qty: 30 0RF Saccharomyces boulardii [Florastor] 250 mg Capsule 250 mg PO TID 10 Days Qty: 30 0RF tramadol 50 mg Tablet 50 mg PO Q12H PRN (Reason: Pain 4-6) 10 Days Qty: 12 0RF polyethylene glycol 3350 [Miralax] 17 gram/dose Powder 17 g PO DAILY Follow-up/Referrals: Tobias,MD Kobe [Primary Care Provider, Unknown]
[2025-10-05 14:28] LABS: Hematocrit 27.1 % (37.0-47.0); Hemoglobin 8.5 g/dL (12.0-15.0); Immature Granulocyte Percent A 2.6 % (0-0.5); Lymphocytes Absolute Auto 2.61 K/mm3 (0.9-3.2); Mean Corpuscular HGB Conc 31.4 g/dl (32-36); Mean Corpuscular Hemoglobin 32.1 pg (26-34); Mean Corpuscular Volume 102.3 fl (80-100); Nucleated Red Blood Cells Absolute Auto 0.000 K/mm3 (0.0-0.012); Nucleated Red Blood Cells Perc 0.0 % (0.0-0.2); Platelet Count Result 239 k/mm3 (150-375); Red Blood Count 2.65 M/mm3 (4.2-5.4); White Blood Count 10.0 K/mm3 (4.5-10.0)
[2025-10-05 14:39] LABS: INR 1.2; Prothrombin Time 15.3 Seconds (11.1-14.7)
[2025-10-05 14:40] LABS: Partial Thromboplastin Time 73.0 Seconds (22.3-36.8)
[2025-10-05 14:41] LABS: Alanine Aminotransferase 15 U/L (6-35); Albumin Level 2.8 g/dL (3.5-5.1); Alkaline Phosphatase 90 U/L (38-126); Anion Gap 4 mmol/L (4-12); Aspartate Amino Transferase 23 U/L (14-36); Bilirubin,Total 0.6 mg/dL (0.2-1.3); Blood Urea Nitrogen 15 mg/dL (7-17); Calcium 8.4 mg/dL (8.4-10.2); Carbon Dioxide 30 mmol/L (22-30); Chloride 100 mmol/L (98-107); Estimated Glomerular Filt Rate > 60; Glucose 139 mg/dL (65-110); Lipase 20 U/L (23-300); Potassium 3.2 mmol/L (3.4-5.0); Sodium 134 mmol/L (137-145); Total Protein 6.6 g/dL (6.3-8.2)
[2025-10-05 14:52] LABS: Troponin I < 0.012 ng/mL (0.000-0.034)
[2025-10-05] MEDS: POTASSIUM CHLORIDE 20 MEQ ER TABLET 40 MEQ PO (15:45)
[2025-10-05] MEDS: cefTRIAXone 2 GM in SODIUM CHLORIDE 0.9% IV 100 ML 200 ML IVPB (16:21)
[2025-10-05] MEDS: KETOROLAC 30 MG/ML VIAL (*BKC) IV PUSH (16:25)
[2025-10-05] MEDS: AZITHROMYCIN IV 500 MG in SODIUM CHLORIDE 0.9% IV 250 ML IVPB (16:29)
--- NOTE | 2025-10-05 16:31 | PC.NURSE ---
Verified with Dr Khalil that blood cultures not needed prior to start of antibiotecs
[2025-10-05] MEDS: HEPARIN SODIUM LOCK FLUSH 500 UNITS/5 ML VIAL IV PUSH (18:14)
[2025-10-05] MEDS: HEPARIN SODIUM LOCK FLUSH 500 UNITS/5 ML SYRINGE (18:14)
[2025-10-05] MEDS: traMADol HCL (*CRX) 50 MG TABLET PO (18:26)
--- NOTE | 2025-10-05 19:23 | PC.NURSE ---
Patient feeling nauseated after receiving Tramadol-feels because she has nothing in her belly Will speak with provider for nausea medication and then some food
[2025-10-05] MEDS: ONDANSETRON HCL ODT 4 MG TABLET PO (19:32)
--- NOTE | 2025-10-05 20:19 | PC.NURSE ---
Report to transport team
== END 2025-10-05 20:25 ==
PROVIDERS: Emergency Provider Student in an Organized Health Care Education/Training Program; PCP Family Medicine
DX: D64.9 Anemia, unspecified (principal); J18.9 Pneumonia, unspecified organism; M06.9 Rheumatoid arthritis, unspecified; Z79.82 Long term (current) use of aspirin; Z86.718 Personal history of other venous thrombosis and embolism; E78.5 Hyperlipidemia, unspecified; I10 Essential (primary) hypertension
CPT/HCPCS: 36415; 71275; 80053; 83690; 84484; 85025; 85380; 85610; 85730; 93005; 96365; 96366; 96367; 96375; 99284; A9270; J0456; J0696; J1642; J1885; J7050; Q9967

== ENCOUNTER 2025-10-07 16:44 | Inpatient (IN) | payer MEDICARE, BC, OTHER, SELFPAY ==
[2025-10-07] VITALS (9 sets, daily range): BP systolic 134–157; BP diastolic 72–79; PULSE 67–86; RESP 17–20; TEMP 36.4–36.9; O2SAT 97–100; BMI 24.3
--- NOTE | ~2025-10-07 | XR_ITS ---
EXAMINATION: XR chest 1V portable DATE: 10/07/2025 19:10 INDICATION: Chest pain. TECHNIQUE: A single frontal view of the chest was obtained. COMPARISON: CT chest 10/05/2025. FINDINGS: Cardiomegaly and severe atherosclerotic aorta. Diffuse vascular congestion lower lungs. Minimal blunting of costophrenic angles due to small bilateral pleural effusion. IMPRESSION: 1. Cardiomegaly, severe atherosclerotic aorta and mild congestive changes of lungs with small bilateral pleural effusions. Reviewed, dictated and finalized at location T. ING MACHINE OPERATOR IMPRESSION: 1. Cardiomegaly, severe atherosclerotic aorta and mild congestive changes of yolanda ngs with small bilateral pleural effusions.
--- NOTE | ~2025-10-07 | MR_ITS ---
EXAMINATION: MR knee RT wo con DATE: 10/14/2025 13:56 INDICATION: Right knee effusion. Chronic knee pain. TECHNIQUE: Magnetic resonance imaging (MRI) of the right knee knee was performed without intravenous contrast. Sequences included axial PD-weighted FS FSE, coronal PD-weighted FSE and PD-weighted FS FSE, sagittal PD-weighted FSE, and sagittal T2-weighted FS FSE. COMPARISON: Radiograph dated 10/01/2025. CT of the right knee dated 10/12/2025. FINDINGS: No acute bony lesions at the right knee. Severe grade 4 degenerative changes of the lateral articular cartilage with advanced degenerative changes of the lateral meniscus and severe fragmentation of the lateral meniscus. No acute findings of the cruciate ligaments. Severe grade 4 degenerative changes of medial articular cartilage and severe chronic degenerative changes and chronic complex tear of medial meniscus. Medial extrusion of mid medial meniscus. Collateral ligaments are intact. Grade 4 degenerative changes of patellofemoral articulation. Large effusion in the knee joint with numerous debris within the fluid is noted osteochondral loose bodies. IMPRESSION: 1. Advanced, grade 4 degenerative changes of the 3 compartments of the knee joint as described above. Minimal medial subluxation at the knee joint. 2. Severe degenerative changes and chronic complex tear of the medial meniscus and lateral meniscus. 3. Large effusion in the knee joint with debris acute osteochondral loose bodies. Reviewed, dictated and finalized at location T. ITUTIONAL COMMODITY ANALYST IMPRESSION: 1. Advanced, grade 4 degenerative changes of the 3 compartments of the knee lee nt as described above. Minimal medial subluxation at the knee joint. 2. Severe degenerative changes and chronic complex tear of the medial meniscus and lateral meniscus. 3. Large effusion in the knee joint with debris acute osteochondral loose terence s.
--- NOTE | ~2025-10-07 | CT_ITS ---
EXAMINATION: CT knee RT wo con COMPARISON: None HISTORY: knee effusion TECHNIQUE: Axial images were obtained without IV contrast. Sagittal, coronal reconstruction images were obtained from the axial views. CT scan performed using dose optimization techniques including the following automated exposure control; adjustment of mA and/or kV; use of iterative reconstruction technique. Automatic exposure control was used to reduce radiation dose. Permanent radiation dose record is archived to PACS. FINDINGS: The patella appears dislocated laterally with probable chondromalacia patella. There are severe degenerative changes of the knee joint tricompartmentally with narrowing of the joint spaces, osteophytosis and large joint effusion. There is thickening of the joint capsule which is nonspecific, there are tiny subcentimeter calcified loose bodies, small amount of hemorrhage within the joint space is suspected with the fluid appearing slightly complex. No acute fracture is identified. Relative atrophy noted of the musculature. No intramuscular hemorrhage is identified. Soft tissue vascular calcifications are noted. There is no subcutaneous fluid collection radiopaque foreign body or air. IMPRESSION: Dislocated patella. Complex fluid within the joint space which may reflect posttraumatic hemorrhage, distinction from infection is limited. Clinical correlation is required. Clinically if there is concern for infection contrast-enhanced MRI is recommended Reviewed, dictated and finalized at location P. AND REWINDER OPERATOR IMPRESSION: Dislocated patella. Complex fluid within the joint space which may reflect posttraumatic hemorrhage, distinction from infection is limited. Clinic al correlation is required. Clinically if there is concern for infection contra st-enhanced MRI is recommended
--- NOTE | ~2025-10-07 | XR_ITS ---
Examination: XR chest 1V portable Clinical History: Pneumonia, leukocytosis Comparison: X-ray 10/07/2025 Technique: Portable AP Findings: Left chest Mediport. Unchanged cardiomegaly. Persistent retrocardiac opacity. Improving but persistent interstitial markings. Probable trace right pleural effusion. No acute bony abnormality. IMPRESSION: 1. Persistent left basilar atelectasis and/or airspace disease, with small probable effusion. 2. Improving but persistent interstitial pulmonary edema and/or pneumonitis. Reviewed, dictated and finalized at location R. PRESIDENT NETWORK DEVELOPMENT IMPRESSION: 1. Persistent left basilar atelectasis and/or airspace disease, with small pro bable effusion. 2. Improving but persistent interstitial pulmonary edema and/or pneumonitis.
--- NOTE | ~2025-10-07 | CT_ITS ---
EXAMINATION: CT abdomen pelvis w con DATE: 10/07/2025 20:23 INDICATION: Left upper abdominal pain. TECHNIQUE: Computed tomography (CT) of the abdomen and pelvis was performed 100 cc intravenous contrast. Automated exposure control and iterative reconstruction technique were employed. The dose-length product was 643.73 mGy-cm. COMPARISON: Evidence of bilateral pleural effusion in the lower chest. Cardiomegaly. No focal lesions of the liver and spleen. Gallbladder is absent. Pancreas and kidneys do not show acute findings. No evidence of small bowel obstruction. Postoperative changes of lumbar spine with severe degenerative changes. FINDINGS: No acute findings on the CT examination of the abdomen and pelvis. Cardiomegaly with bilateral pleural effusion suggesting congestive heart failure. IMPRESSION: 1. Reviewed, dictated and finalized at location T. ER HEARTH TECHNICIAN IMPRESSION: 1.
--- NOTE | 2025-10-07 18:35 | ED.WEAKNESS ---
HPI - Weakness General Chief complaint: Weakness Stated complaint: fever & lethargy, current pna Time Seen by Provider: 10/07/25 18:15 Source: patient and EMS Mode of arrival: EMS Limitations: no limitations History of Present Illness HPI Narrative: This is a 75-year-old female history of rheumatoid arthritis, CVA who presents to the ED for lethargy. PAtient seen here a couple days ago for similar symptoms and discharged home after being diagnosed with pneumonia. Patient states that for the past couple days, she has been having intermittent left lower chest pain described as a sharpness. She has been taking the antibiotic but reports her symptoms are the same. Denies shortness of breath, fevers, chills, nausea, vomiting. She has previously been on blood thinners but was stopped on this a year ago for prior DVTs. Related Data Home Medications ?Medication ?Instructions ?Recorded ?Confirmed ?Last Taken ?Type polyethylene glycol 3350 17 17 g PO DAILY 07/09/24 09/02/25 12/06/24 History gram/dose oral powder (Miralax) aspirin 81 mg tablet 81 mg PO DAILY 05/15/25 09/02/25 08/31/25 History hydrochlorothiazide 12.5 mg capsule 12.5 mg PO DAILY 05/15/25 09/02/25 09/01/25 History prednisone 20 mg tablet 5 mg PO BID 05/15/25 09/02/25 08/31/25 History pantoprazole 40 mg tablet,delayed 40 mg PO DAILY 09/02/25 09/02/25 08/31/25 History release pregabalin 50 mg capsule 50 mg PO BID 09/02/25 09/02/25 08/31/25 History Allergies Allergy/AdvReac Type Severity Reaction Status Date / Time amlodipine Allergy Severe Hives Verified 10/07/25 22:55 banana Allergy Severe throat Verified 10/07/25 22:55 Itching latex Allergy Severe Redness of Verified 10/07/25 22:55 Skin, baker lisinopril Allergy Severe Difficulty Verified 10/07/25 22:55 Breathing Penicillins Allergy Severe Rash Verified 10/07/25 22:55 pseudoephedrine Allergy Severe Difficulty Verified 10/07/25 22:55 Breathing tetracycline Allergy Severe Difficulty Verified 10/07/25 22:55 Breathing tree nut Allergy Severe Other Verified 10/07/25 22:55 dextromethorphan Allergy Intermediate Rash Verified 10/07/25 22:55 prednisone Allergy Unknown Other Verified 10/07/25 22:55 acetaminophen AdvReac Intermediate Nausea and Verified 10/07/25 22:55 Vomiting aspirin AdvReac Intermediate Nausea and Verified 10/07/25 22:55 Vomiting vancomycin AdvReac Intermediate Other Verified 10/07/25 22:55 Sulfa (Sulfonamide AdvReac Mild Other Verified 10/07/25 22:55 Antibiotics) Review of Systems Review of Systems: Gen.: Denies fevers or chills Eyes: Denies eye pain or visual change ENT: Denies congestion Respiratory: Denies shortness of breath or cough CV: As per HPI GI: Denies abdominal pain nausea, emesis or diarrhea denies burning, urgency, frequency or hematuria Musculoskeletal: Denies back pain or muscle pain Neuro: As per HPI Skin: Denies rash Except as documented, all other systems reviewed and negative [facility] Past Medical History Medical History Effusion of right knee Severe protein-calorie malnutrition Unilateral primary osteoarthritis, right knee DVT (deep venous thrombosis) No longer on anticoagulation Chronic blood loss anemia History of seizure (~11/2023) Following surgery for septic arthritis. Osteopenia Moderate protein malnutrition Diastolic dysfunction Echo 04/2024 demonstrated EF of 60 65%, mildly increased left ventricular wall thickness, grade 1 diastolic dysfunction, right ventricular function normal, atrial septum appears aneurysmal, moderate aortic valve calcification, mild mitral valve regurgitation, mild tricuspid valve regurgitation Occult blood in stools Hyperlipidemia Hypertension Rheumatoid arthritis Surgical History Surgical History History of colonoscopy (07/17/24) Internal hemorrhoids, diverticulosis Normal esophagogastroduodenoscopy (EGD) (07/17/24) PEG (percutaneous endoscopic gastrostomy) status Place at [facility] in January 2024 due to dysphagia, remains in place due to moderate to severe protein calorie malnutrition with approximately 50 lb weight loss since August 2023. History of total left knee replacement Port-A-Cath in place Left chest wall H/O right knee surgery (~11/2023) Washout due to septic arthritis November 2023 H/O: hysterectomy Family History Family History Father , black lung disease No problems noted. Mother , from OJI gangrene. No problems noted. Sibling Acute myocardial infarction Prednisolone adverse reaction Sibling No problems noted. Social History Social History Social History: Code status: DNR/DNI (per patient request) she states that she does not think that her would agree with this but this is her desire. [facility] documentation lists Full Code and POLST signed 09/18/25 Surrogate decision maker: Smoking status: Never smoker Second hand tobacco smoke exposure: No Alcohol intake: never Substance use: never Substance use type: does not use Do You Feel Safe in your Home?: Yes Lack of Transportation: YES Lack of Food: Never True Current Housing: I Have Housing Concerned About Future Housing: No Difficulty Paying Gas/Electric Bills: No Difficulty Paying for Meds: No Currently Unemployed: No Education: Master's Degree or Higher Difficulty w/ Childcare or Family Care: No Living arrangements: skilled nursing Additional living arrangements comments: previously with family; at [facility] since 09/18/25 Occupation/Education: retired 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 [employer] Gender identity (if verbalized by the patient): Male Spiritual care concerns: No (Mandaen) Course Vital Signs Vital signs: Vital Signs Temperature 98.4 F 10/07/25 16:44 Pulse Rate 72 10/07/25 16:44 Respiratory Rate 19 10/07/25 16:44 Blood Pressure 138/74 10/07/25 16:44 Pulse Oximetry 98 10/07/25 16:44 Oxygen Delivery Room Air 10/07/25 16:44 Temperature 98.4 F 10/07/25 16:44 Pulse Rate 72 10/07/25 21:32 Respiratory Rate 20 10/07/25 20:56 Blood Pressure 138/73 10/07/25 20:56 Pulse Oximetry 97 10/07/25 21:31 Oxygen Delivery Nasal Cannula 10/07/25 21:31 Oxygen Flow Rate 1 10/07/25 21:31 MDM - Weakness MDM Narrative Medical decision making narrative: 75-year-old female Presenting for lethargy and reported fever. On initial evaluation patient was in no acute distress afebrile, hemodynamic stable. Differentials include but are not limited to: CVA, TIA, ICH, meningitis, UTI, cancer, drug intoxication, hypoglycemia, electrolyte abnormality Notable exam findings: Patient appears lethargic, heart and lungs clear. Abdomen soft and nontender. I personally reviewed the patient's lab result. Notable lab findings: Hemoglobin 8.5 which is stable from previous. Mild hyponatremia with sodium at 132. BNP slightly elevated at 440. UA clear. I personally reviewed the patient's images and interpret as follows: Chest x-ray: Enlarged cardiac silhouette bilateral pulmonary effusions and pulmonary vascular congestion CT abdomen/pelvis showed no acute process. This is now the patient's 3rd visit in the last week for the same thing from her skilled nursing. She was diagnosed with community-acquired pneumonia a couple days ago. I suspect that she is failing outpatient treatment at this time. Patient will be started on Levaquin given her allergies. Case was discussed with hospitalist who will admit the patient. Medical Records Attestation: I reviewed the patient's medical records. Lab Data Attestation: I reviewed the patient's lab results. 10/07/25 19:02 10/07/25 19:02 Labs: Lab Results 10/07/25 10/07/25 Range/Units 18:36 19:02 WBC 9.1 (4.5-10.0) K/mm3 RBC 2.65 L (4.2-5.4) M/mm3 Hgb 8.5 L (12.0-15.0) g/dL Hct 27.0 L (37.0-47.0) % MCV 101.9 H (80-100) fl MCH 32.1 (26-34) pg MCHC 31.5 L (32-36) g/dl RDW 16.0 H (11.5-14.5) % Plt Count 303 (150-375) k/mm3 MPV 9.4 (7.4-10.4) fl Immature Gran % (Auto) 4.2 H (0-0.5) % Neut % (Auto) 49.4 (45.5-73.1) % Lymph % (Auto) 29.4 (18.3-44.2) % [place] % (Auto) 7.1 (2.6-8.5) % Eos % (Auto) 9.3 H (0-4.4) % Baso % (Auto) 0.6 (0.2-1.2) % Lymph # (Auto) 2.66 (0.9-3.2) K/mm3 [place] # (Auto) 0.6 (0.1-0.6) K/mm3 Eos # (Auto) 0.8 H (0-0.3) K/mm3 Baso # (Auto) 0.1 (0.0-0.1) K/mm3 Abs Immat Gran (auto) 0.38 H (0.00-0.031) K/mm3 Absolute Neuts (auto) 4.5 (1.3-6.7) K/mm3 Absolute Nucleated RBC 0.000 (0.0-0.012) K/mm3 Nucleated RBC % 0.0 (0.0-0.2) % Sodium 132 L (137-145) mmol/L Potassium 3.9 (3.4-5.0) mmol/L Chloride 99 (98-107) mmol/L Carbon Dioxide 29 (22-30) mmol/L Anion Gap 4 (4-12) mmol/L BUN 16 (7-17) mg/dL Creatinine 0.68 L (0.7-1.0) mg/dL Estim Creat Clear Calc 55 ml/min Estimated GFR > 60 (59 - ) Glucose 101 (65-110) mg/dL Calcium 8.0 L (8.4-10.2) mg/dL Total Bilirubin 0.6 (0.2-1.3) mg/dL AST 23 (14-36) U/L ALT 8 (6-35) U/L Alkaline Phosphatase 88 (38-126) U/L NT-Pro-B Natriuret Pep 448 H (19.9-100) pg/mL Total Protein 6.8 (6.3-8.2) g/dL Albumin 2.7 L (3.5-5.1) g/dL Urine Color Dark yellow (Yellow) Urine Appearance Clear (Clear) Urine pH 7.5 (5.0-9.0) Ur Specific [place] 1.019 (1.001-1.035) Urine Protein Trace (Negative) mg/dL Urine Glucose (UA) Negative (Negative) mg/dL Urine Ketones Negative (Negative) mg/dL Ur Blood (Man) Negative (Negative) Urine Nitrate Negative (Negative) Urine Bilirubin Negative (Negative) Urine Urobilinogen 4.0 H (<2.0) mg/dL Leukocyte Esterase Rfl Trace H (Negative) JACKI/UL Urine RBC 0-2 (0-2) /hpf Urine WBC 0-5 (0-3) /hpf Ur Squamous Epith Cells None seen (Few) /hpf Urine Bacteria None seen /hpf Urine Casts 0-2 Imaging Data Radiologist's impression: Impressions Chest X-Ray 10/07/25 19:13 IMPRESSION: 1. Cardiomegaly, severe atherosclerotic aorta and mild congestive changes of lungs with small bilateral pleural effusions. Abdomen/Pelvis CT 10/07/25 20:32 IMPRESSION: 1. Discharge Plan Discharge Clinical Impression: Adult failure to thrive Pneumonia Qualifiers: Pneumonia type: due to unspecified organism Laterality: bilateral Lung location: lower lobe of lung Qualified Code(s): J18.9 - Pneumonia, unspecified organism Patient Disposition: Still a Patient Condition: Stable
[2025-10-07 19:06] LABS: Add Urine Microscopic? YES; Appearance Urine Clear (Clear); Glucose Urine UA Negative (Negative); Leukocyte Esterase Ur Trace LEU/UL (Negative); Nitrate Urine Negative (Negative); Non Pathogenic Casts 0-2; Specific Grav Ur 1.019 (1.001-1.035)
[2025-10-07 19:10] LABS: Hematocrit 27.0 % (37.0-47.0); Hemoglobin 8.5 g/dL (12.0-15.0); Immature Granulocyte Percent A 4.2 % (0-0.5); Lymphocytes Absolute Auto 2.66 K/mm3 (0.9-3.2); Mean Corpuscular HGB Conc 31.5 g/dl (32-36); Mean Corpuscular Hemoglobin 32.1 pg (26-34); Mean Corpuscular Volume 101.9 fl (80-100); Nucleated Red Blood Cells Absolute Auto 0.000 K/mm3 (0.0-0.012); Nucleated Red Blood Cells Perc 0.0 % (0.0-0.2); Platelet Count Result 303 k/mm3 (150-375); Red Blood Count 2.65 M/mm3 (4.2-5.4); White Blood Count 9.1 K/mm3 (4.5-10.0)
[2025-10-07 19:21] LABS: Alanine Aminotransferase 8 U/L (6-35); Albumin Level 2.7 g/dL (3.5-5.1); Alkaline Phosphatase 88 U/L (38-126); Anion Gap 4 mmol/L (4-12); Aspartate Amino Transferase 23 U/L (14-36); Bilirubin,Total 0.6 mg/dL (0.2-1.3); Blood Urea Nitrogen 16 mg/dL (7-17); Calcium 8.0 mg/dL (8.4-10.2); Carbon Dioxide 29 mmol/L (22-30); Chloride 99 mmol/L (98-107); Estimated CRCL calculation 55 ml/min; Estimated Glomerular Filt Rate > 60; Glucose 101 mg/dL (65-110); Potassium 3.9 mmol/L (3.4-5.0); Sodium 132 mmol/L (137-145); Total Protein 6.8 g/dL (6.3-8.2)
--- NOTE | 2025-10-07 21:06 | PC.NURSE ---
Pt. assisted with using the bed oneil. Pt. urinated x1. Cleaned with soap and water.
[2025-10-07 21:07] LABS: NT Pro B Type Natriuretic Pept 448 pg/mL (19.9-100)
--- NOTE | 2025-10-07 22:03 | WPCEDHO ---
ED Hand Off Checklist All vitals saved: yes IV Site documented: yes All med administrations documented: yes Triage Note Triage Note Pt to the ED from [facility] 10/07/25 16:44 via [facility] for evaluation of lethargy and fever. EMS states she was diagnosed with bilateral pneumonia 2 days ago. EMS states staff reports around noon she became more lethargic and feverish. Pt is A&Ox4. currently on 1 L of O2. Pt appears tired Allergies amlodipine Allergy (Severe, Verified 10/07/25 16:52) Hives banana Allergy (Severe, Verified 10/07/25 16:52) throat Itching latex Allergy (Severe, Verified 10/07/25 16:52) Redness of Skin, baker lisinopril Allergy (Severe, Verified 10/07/25 16:52) Difficulty Breathing Penicillins Allergy (Severe, Verified 10/07/25 16:52) Rash Patient received ceftriaxone in November 2024 pseudoephedrine Allergy (Severe, Verified 10/07/25 16:52) Difficulty Breathing tetracycline Allergy (Severe, Verified 10/07/25 16:52) Difficulty Breathing tree nut Allergy (Severe, Verified 10/07/25 16:52) Other tested with senior mechanical engineer- told to never eat nuts dextromethorphan Allergy (Intermediate, Verified 10/07/25 16:52) Rash prednisone Allergy (Unknown, Verified 10/07/25 16:52) Other sister from brain hemorrhage after taking prednisone acetaminophen Adverse Reaction (Intermediate, Verified 10/07/25 16:52) Nausea and Vomiting aspirin Adverse Reaction (Intermediate, Verified 10/07/25 16:52) Nausea and Vomiting vancomycin Adverse Reaction (Intermediate, Verified 10/07/25 16:52) Other VANCOMYCIN INFUSION REACTION - RUN AT HALF RATE Sulfa (Sulfonamide Antibiotics) Adverse Reaction (Mild, Verified 10/07/25 16:52) Other Thrush Family History (Last Reviewed 10/05/25 @ 14:15 by Ole Khalil DO) Father No problems noted. Mother No problems noted. Sibling Acute myocardial infarction Prednisolone adverse reaction Sibling No problems noted. Notes 10/07/25 21:06 Nurse Note by Mayela Gore Pt. assisted with using the bed oneil. Pt. urinated x1. Cleaned with soap and water. Initialized on 10/07/25 21:06 - END OF NOTE Interventions/Assessments Cardiac Monitoring Start: 10/07/25 16:44 Freq: Status: Active Protocol: Document 10/07/25 21:32 ACS (Rec: 10/07/25 21:32 ACS [id number]) Small Parts Shaper Operator Assessment Small Parts Shaper Operator Yes Applied Pulse Rate (60-100 72 beats/min) EKG Rythm Sinus Rhythm IV / Saline Lock, Insert Start: 10/07/25 16:44 Freq: Status: Active Protocol: Document 10/07/25 19:05 ACS (Rec: 10/07/25 19:05 ACS [id number]) IV Assessment Port-a-Cath Left Chest IV Catheter Access Initiated IV Insertion Date 10/07/25 IV Insertion Time 19:05 IV Site Assessment WNL IV Care and WNL Maintenance PA: Cardiovascular Assessment Start: 10/07/25 16:44 Freq: Status: Active Protocol: Document 10/07/25 17:00 ECS (Rec: 10/07/25 17:01 ECS [id number]) Cardiovascular Assessment Cardiovascular None Symptoms Skin Description Normal Color PA: Neurological Assessment Start: 10/07/25 16:44 Freq: Status: Active Protocol: Document 10/07/25 17:00 ECS (Rec: 10/07/25 17:01 ECS [id number]) Neurological Assessment Level of Alert,Awake Consciousness Orientation Oriented to Place,Oriented to Time Neurological None,Weakness, General Symptoms Hallucination Type None Julia Coma Scale Eyes Open Verbal Oriented and Alert Motor Follows Commands [place] Coma Total 15 Score Last Vital Signs Temperature 98.4 F 10/07/25 16:44 Pulse Rate 72 10/07/25 21:32 Respiratory Rate 20 10/07/25 20:56 Pulse Oximetry 97 10/07/25 21:31 Blood Pressure 138/73 10/07/25 20:56 Blood Pressure Mean 94 10/07/25 20:56 Blood Pressure Position Sitting 10/07/25 16:44 Oxygen Delivery Nasal Cannula 10/07/25 21:31 Oxygen Flow Rate 1 10/07/25 21:31 Weight 71.2 kg 10/07/25 16:44 Last Result - Abnormals Only RBC 2.65 M/mm3 (4.2-5.4) L 10/07/25 19:02 Hgb 8.5 g/dL (12.0-15.0) L 10/07/25 19:02 Hct 27.0 % (37.0-47.0) L 10/07/25 19:02 MCV 101.9 fl (80-100) H 10/07/25 19:02 MCHC 31.5 g/dl (32-36) L 10/07/25 19:02 RDW 16.0 % (11.5-14.5) H 10/07/25 19:02 Immature Gran % (Auto) 4.2 % (0-0.5) H 10/07/25 19:02 Eos % (Auto) 9.3 % (0-4.4) H 10/07/25 19:02 Eos # (Auto) 0.8 K/mm3 (0-0.3) H 10/07/25 19:02 Abs Immat Gran (auto) 0.38 K/mm3 (0.00-0.031) H 10/07/25 19:02 Sodium 132 mmol/L (137-145) L 10/07/25 19:02 Creatinine 0.68 mg/dL (0.7-1.0) L 10/07/25 19:02 Calcium 8.0 mg/dL (8.4-10.2) L 10/07/25 19:02 NT-Pro-B Natriuret Pep 448 pg/mL (19.9-100) H 10/07/25 19:02 Albumin 2.7 g/dL (3.5-5.1) L 10/07/25 19:02 Urine Urobilinogen 4.0 mg/dL (<2.0) H 10/07/25 18:36 Leukocyte Esterase Rfl Trace JACKI/UL (Negative) H 10/07/25 18:36 Most Recent Suicide Severity Rating Suicide Severity Rating NO RISK INDICATED 10/07/25 16:44
--- NOTE | 2025-10-07 22:40 | ADMGEN ---
This patient, Tiesha Stock, was admitted to 2 Medical Room 260-. Patient/family oriented to hospital policies and general routines including ID bracelet, bed and alarms, visiting hours, pain management, procedures, bathroom and other care routines, personal items, smoking policy, room service/diet, and visiting hours. Information on how to activate the Rapid Response Team has been discussed. Patient/Family are encouraged to report perceived risks to care and to ask questions if they do not understand what they are told or what they should do.
--- NOTE | 2025-10-07 23:31 | PM.IMHP ---
H&P: HPI History of Present Illness Date/Time: 10/07/25 23:31 Chief Complaint: Weakness Narrative: This is a 75-year-old wheelchair depended patient was a history of having rheumatoid arthritis, pneumonia and a CVA. The patient was recently seen in ER on 10/05/2025 and was diagnosed with pneumonia. She was started on antibiotics and stated that she has been taking them routinely. She has been complaining of having intermittent left lower chest pain that she describes is being sharp. The patient stated that that discomfort has not gone away over the last couple days. She denies any shortness of breath, chills, nausea, vomiting, or fevers. The patient has a history of having DVTs and her anticoagulation was stopped approximately a year ago. Her white count is normal. Her H&H is 8.5 and 27.0 which is her baseline. Chest x-ray was read as cardiomegaly, severe atherosclerotic aortic and mild congestive changes on lungs as well bilateral pleural effusions. CT of the abdomen and pelvis was read as no acute findings on the CT examination of the abdomen pelvis. Cardiomegaly with bilateral pleural effusions suggesting congestive heart failure. The patient was given Levaquin in the emergency room. The patient was placed on oxygen at 2 L per nasal cannula however her O2 saturation have been in the upper 90s. The patient is being admitted to observation status on the date of service of 10/07/2025 Review of Systems Constitutional: Constitutional: Reports as per HPI and Reports no additional constitutional complaints Eyes: Eyes: Reports as per HPI and Reports no additional eye complaints ENT: Reports system reviewed and no additional complaints, except as documented and Reports Normal hearing present Cardiovascular: Cardiovascular: Reports no additional cardiovascular complaints Respiratory: Respiratory: Reports as per HPI and Reports no additional respiratory complaints Gastrointestinal: Gastrointestinal: Reports as per HPI and Reports no additional gastrointestinal complaints Genitourinary: Genitourinary: Reports no additional female genitourinary complaints Musculoskeletal: Musculoskeletal: Reports no additional musculoskeletal complaints Integumentary/Breasts: Skin/Breast: Reports system reviewed and no additional complaints, except as docu Neurologic: Reports system reviewed and no additional complaints, except as documented and Reports Normal hearing present Psychiatric: Psychiatric: Reports no additional psychiatric complaints and Reports as per HPI Hematologic/Lymphatic: Hematologic/Lymphatic: Reports no additional hematologic/lymphatic complaints Allergic/Immunologic: Allergic/Immunologic: Reports no additional allergic/immunologic complaints PMFSH Past Medical History Medical History (Updated 10/08/25 @ 18:10 by Tristan Dent APRN) Congestive heart failure CVA (cerebral vascular accident) Unchanged small old lacunar infarct at the anterior limb of the right internal capsule as seen on head CT 09/04/2025 Effusion of right knee Severe protein-calorie malnutrition Unilateral primary osteoarthritis, right knee DVT (deep venous thrombosis) No longer on anticoagulation Chronic blood loss anemia History of seizure (~11/2023) Following surgery for septic arthritis. Osteopenia Moderate protein malnutrition Diastolic dysfunction Echo on 09/08/2025 1. Normal LV size and wall thickness; hyperdynamic LV systolic function, ejection fraction more than 70%. Grade 1 diastolic dysfunction. Normal RV size and systolic function. Normal biatrial size. No interatrial shunt on bubble study. Mild mitral annular calcification, no significant MR. Aortic valve appears mildly calcified, mild aortic stenosis, calculated YENI 2 cm2; maximum velocity 2.36 m/sec, mean gradient 11 mmHg. Mild tricuspid regurgitation, mild pulmonary hypertension, RVSP 40 mmHg. Mild aortic root calcification. No significant pericardial effusion. Occult blood in stools Hyperlipidemia Hypertension Rheumatoid arthritis Surgical History Surgical History History of colonoscopy (07/17/24) Internal hemorrhoids, diverticulosis Normal esophagogastroduodenoscopy (EGD) (07/17/24) PEG (percutaneous endoscopic gastrostomy) status Place at [facility] in January 2024 due to dysphagia, remains in place due to moderate to severe protein calorie malnutrition with approximately 50 lb weight loss since August 2023. History of total left knee replacement Port-A-Cath in place Left chest wall H/O right knee surgery (~11/2023) Washout due to septic arthritis November 2023 H/O: hysterectomy Family History Family History Father , black lung disease No problems noted. Mother , from OJI gangrene. No problems noted. Sibling Acute myocardial infarction Prednisolone adverse reaction Sibling No problems noted. Social History Social History (Updated 10/08/25 @ 02:01 by Tabatha Kessler APRN) Social History: . She is retired from the [employer]. She has 2 sons. She is wheelchair dependent and currently resides at [facility]. Code status: longterm documentation lists Full Code and POLST signed 09/18/25 Surrogate decision maker: Code status: Full code Smoking status: Never smoker Second hand tobacco smoke exposure: No Alcohol intake: never Substance use: never Substance use type: does not use Do You Feel Safe in your Home?: Yes Lack of Transportation: YES Lack of Food: Never True Current Housing: I Have Housing Concerned About Future Housing: No Difficulty Paying Gas/Electric Bills: No Difficulty Paying for Meds: No Currently Unemployed: No Education: Master's Degree or Higher Difficulty w/ Childcare or Family Care: No Living arrangements: [facility] Additional living arrangements comments: previously with family; at [facility] since 09/18/25 Occupation/Education: retired 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[employer] [place] Gender identity (if verbalized by the patient): Male Spiritual care concerns: No Meds Home Medications and Allergies Home Medications ?Medication ?Instructions ?Recorded ?Confirmed ?Type polyethylene glycol 3350 17 17 g PO DAILY 07/09/24 10/07/25 History gram/dose oral powder (Miralax) metoprolol succinate 25 mg 25 mg PO QAM #60 tabs 07/22/24 10/07/25 Rx tablet,extended release 24 hr (Toprol XL) bisacodyl 5 mg tablet,delayed 10 mg (2 x 5 mg) PO QAM PRN 12/17/24 10/07/25 Rx release (Laxative (bisacodyl)) Constipation #30 tabs ferrous sulfate 325 mg (65 mg 325 mg PO BIDWM #60 tabs 12/17/24 10/07/25 Rx iron) tablet,delayed release aspirin 81 mg tablet 81 mg PO DAILY 05/15/25 10/07/25 History hydrochlorothiazide 12.5 mg capsule 25 mg PO DAILY 05/15/25 10/07/25 History prednisone 20 mg tablet 10 mg PO DAILY 05/15/25 10/07/25 History pantoprazole 40 mg tablet,delayed 40 mg PO DAILY 09/02/25 10/07/25 History release pregabalin 50 mg capsule 50 mg PO BID 09/02/25 10/07/25 History clopidogrel 75 mg tablet 75 mg PO QAM 30 days #30 tabs 10/30/25 11/18/25 Rx sennosides 8.6 mg tablet (Senokot) 8.6 mg PO HS 7 days #7 tabs 09/18/25 10/07/25 Rx tramadol 50 mg tablet 50 mg PO Q12H PRN Pain 4-6 10 days 09/18/25 10/07/25 Rx #12 tabs azithromycin 250 mg tablet 250 mg PO DAILY 4 days #4 tabs 10/05/25 10/07/25 Rx acetaminophen 325 mg tablet 650 mg PO Q4H PRN pain 10/07/25 10/07/25 History camphor 4 %-methyl salicylate 30 1 applic topical BID PRN muscle 10/07/25 10/07/25 History %-menthol 10 % topical cream pain (Bengay Ultra Strength) diclofenac 1 % gel-benzalkonium 1 g topical TID 10/07/25 10/07/25 History chloride 0.13 % towelette topical kit metoclopramide HCl 5 mg tablet 5 mg PO BID 10/07/25 10/07/25 History Allergies Allergy/AdvReac Type Severity Reaction Status Date / Time amlodipine Allergy Severe Hives Verified 10/07/25 22:55 banana Allergy Severe throat Verified 10/07/25 22:55 Itching latex Allergy Severe Redness of Verified 10/07/25 22:55 Skin, baker lisinopril Allergy Severe Difficulty Verified 10/07/25 22:55 Breathing Penicillins Allergy Severe Rash Verified 10/07/25 22:55 pseudoephedrine Allergy Severe Difficulty Verified 10/07/25 22:55 Breathing tetracycline Allergy Severe Difficulty Verified 10/07/25 22:55 Breathing tree nut Allergy Severe Other Verified 10/07/25 22:55 dextromethorphan Allergy Intermediate Rash Verified 10/07/25 22:55 prednisone Allergy Unknown Other Verified 10/07/25 22:55 acetaminophen AdvReac Intermediate Nausea and Verified 10/07/25 22:55 Vomiting aspirin AdvReac Intermediate Nausea and Verified 10/07/25 22:55 Vomiting vancomycin AdvReac Intermediate Other Verified 10/07/25 22:55 Sulfa (Sulfonamide AdvReac Mild Other Verified 10/07/25 22:55 Antibiotics) Vital Signs Vital Signs - 24 hr 10/07/25 16:44 10/07/25 18:11 10/07/25 20:20 Temperature 98.4 F Pulse Rate 72 86 81 Respiratory Rate 19 20 17 Blood Pressure 138/74 134/72 156/73 H Pulse Oximetry 98 98 100 Oxygen Delivery Room Air Oxygen Flow Rate 10/07/25 20:56 10/07/25 21:31 10/07/25 21:32 Temperature Pulse Rate 73 72 Respiratory Rate 20 Blood Pressure 138/73 Pulse Oximetry 97 97 Oxygen Delivery Nasal Cannula Oxygen Flow Rate 1 10/07/25 23:01 10/07/25 23:11 Temperature 97.6 F Pulse Rate 67 73 Respiratory Rate 20 20 Blood Pressure 157/79 H 138/73 Pulse Oximetry 98 97 Oxygen Delivery Oxygen Flow Rate Exam Const: General: cooperative, comfortable, no acute distress, well developed, awake, Physically active, average body habitus and well nourished Nutritional Appearance: average body habitus and well nourished Orientation/consciousness: oriented to person, oriented to place, oriented to time and patient oriented x3 Limitations: no limitations HENMT: Head: normal to inspection, No palpable skull fracture present, normocephalic, atraumatic and abrasion Ears: hearing grossly normal bilaterally and external ears normal Face/Nose/Sinus: Normal external nose present Eyes: General: appearance normal, both eyes and all related structures Alignment and Position: alignment normal Periorbital: periorbital findings normal Eyelids: eyelids normal Conjunctivae: conjunctivae normal EOM: EOMs intact bilaterally Neck: Neck: normal visual inspection and full ROM Chest: Chest palpation & inspection: normal inspection of the chest Resp: Effort & Inspection: normal respiratory effort Auscultation: clear to auscultation bilaterally Cardio: Palpation: normal PMI Rate: regular rate Rhythm: regular rhythm Heart sounds: S1 normal heart sound present and S2 normal heart sound present Peripheral pulses: Peripheral pulses 2+ throughout GI: Inspection: normal to inspection Percussion: Yes normal to percussion Back/Spine/Pelvis: Back: no CVA tenderness Cervical Spine: cervical ROM normal Skin: General skin exam: normal color Lesions: no lesions Rashes: no rashes Trauma: no lacerations or abrasions Wounds: no wounds Hair: normal Nails: normal Neuro: General: oriented to person, oriented to place, oriented to time and patient oriented x3 Cranial nerves: Yes Normal hearing present Cognition (Neuro): normal cognition Speech: normal speech Motor exam (neuro): 03/24 motor strength present throughout Sensory Exam: normal sensation Extrem: General: normal to inspection Right upper extremity: normal to inspection and shoulder/upper arm Left upper extremity: normal to inspection and shoulder/upper arm Right lower extremity: normal to inspection Left lower extremity: normal to inspection Psych: Appearance: grossly normal Mental Status: mental status grossly normal Speech and movement: Normal speech and movement present Affect: normal affect Attitude: cooperative Thought process: Normal thought process present Thought content: Yes Normal thought content present Insight: Good insight present (Psych) Judgement: Good judgement present (Psych) H&P: Results Labs Labs: Short CBC 10/07/25 Range/Units 19:02 WBC 9.1 (4.5-10.0) K/mm3 Hgb 8.5 L (12.0-15.0) g/dL Hct 27.0 L (37.0-47.0) % Plt Count 303 (150-375) k/mm3 BMP 10/07/25 19:02 Sodium 132 L Potassium 3.9 Chloride 99 Carbon Dioxide 29 BUN 16 Creatinine 0.68 L Glucose 101 Calcium 8.0 L Liver Function 10/07/25 Range/Units 19:02 Total Bilirubin 0.6 (0.2-1.3) mg/dL AST 23 (14-36) U/L ALT 8 (6-35) U/L Alkaline Phosphatase 88 (38-126) U/L Albumin 2.7 L (3.5-5.1) g/dL Urine 10/07/25 Range/Units 18:36 Urine Color Dark yellow (Yellow) Urine Appearance Clear (Clear) Urine pH 7.5 (5.0-9.0) Ur Specific [place] 1.019 (1.001-1.035) Urine Protein Trace (Negative) mg/dL Urine Glucose (UA) Negative (Negative) mg/dL ECG Interpretation: Test Date: 2025-10-05 13:55:36 Measurements Intervals Hamler Rate: 70 P: 5 VA: 161 QRS: 1 QRSD: 92 T: 9 QT: 404 QTc: 438 Interpretive Statements SINUS RHYTHM VOLTAGE CRITERIA FOR LVH, CONSIDER NORMAL VARIANT Electronically Signed On 10-06-2025 11:22:49 NURSES DIRECTOR by Garrison To Chest x-ray: Radiologist's impression: ITS Impressions Chest X-Ray 10/07/25 19:13 IMPRESSION: 1. Cardiomegaly, severe atherosclerotic aorta and mild congestive changes of lungs with small bilateral pleural effusions. Abdomen/Pelvis CT 10/07/25 20:32 IMPRESSION: 1.FINDINGS: No acute findings on the CT examination of the abdomen and pelvis. Cardiomegaly with bilateral pleural effusion suggesting congestive heart failure. Assessment and Plan Assessment and plan (1) Congestive heart failure: Code(s): I50.9 - Heart failure, unspecified Status: Acute Assessment and Plan: Chest X-Ray 10/07/25 19:13 IMPRESSION: 1. Cardiomegaly, severe atherosclerotic aorta and mild congestive changes of lungs with small bilateral pleural effusions. Abdomen/Pelvis CT 10/07/25 20:32 IMPRESSION: 1.FINDINGS: No acute findings on the CT examination of the abdomen and pelvis. Cardiomegaly with bilateral pleural effusion suggesting congestive heart failure. -she had an echo on . Normal LV size and wall thickness; hyperdynamic LV systolic function, ejection fraction more than 70%. Grade 1 diastolic dysfunction. Normal RV size and systolic function. Normal biatrial size. No interatrial shunt on bubble study. Mild mitral annular calcification, no significant MR. Aortic valve appears mildly calcified, mild aortic stenosis, calculated YENI 2 cm2; maximum velocity 2.36 m/sec, mean gradient 11 mmHg. Mild tricuspid regurgitation, mild pulmonary hypertension, RVSP 40 mmHg. Mild aortic root calcification. No significant pericardial effusion. -IV Lasix initiated. She had been on p.o. hydrochlorothiazide. -she may follow with Cardiology outpatient. -she has no current signs of fluid overload at this time -strict I&O -weigh patient daily. -continue with metoprolol -patient was placed on oxygen at 2 L per nasal cannula. Please wean to keep oxygen level greater than 92%. (2) Hypertension: Qualifiers: Hypertension type: primary hypertension Qualified Code(s): I10 - Essential (primary) hypertension Code(s): I10 - Essential (primary) hypertension Status: Acute Assessment and Plan: -continue with metoprolol. The patient's current blood pressure is 138/73. (3) Hyperlipidemia: Code(s): E78.5 - Hyperlipidemia, unspecified Status: Acute Assessment and Plan: -patient does not appear to be on any statins. (4) Rheumatoid arthritis: Qualifiers: Rheumatoid arthritis location: unspecified site Rheumatoid factor presence: unspecified presence Qualified Code(s): M06.9 - Rheumatoid arthritis, unspecified Code(s): M06.9 - Rheumatoid arthritis, unspecified Status: Acute Assessment and Plan: -continue with her home medications of prednisone, Lyrica, and tramadol (5) Pneumonia: Qualifiers: Laterality: bilateral Lung location: lower lobe of lung Pneumonia type: due to unspecified organism Qualified Code(s): J18.9 - Pneumonia, unspecified organism Code(s): J18.9 - Pneumonia, unspecified organism Status: Acute Assessment and Plan: -according that chest x-ray and CT which shows cardiomegaly and pulmonary congestion. Pneumonia is least slightly. However the patient was given antibiotics outpatient. The patient was placed on IV Levaquin. Please wean off of antibiotic when feasible. -white count is normal. -sputum and blood cultures pending -the patient is complaining of weakness. She is wheelchair dependent. Consider PT OT evaluation. Plan 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 H&H is stable at 8.5 and 27.0. The patient has a left upper chest Port-A-Cath which was accessed and is working well. Quality VTE Prophylaxis VTE prophylaxis: mechanical ordered
[2025-10-07] MEDS: levoFLOXacin 750 MG/D5W 150 ML 750 MG/150 ML BAG 100 MG IVPB (23:41)
--- OUTSIDE RECORDS SUMMARY | 2025-10-08 04:43 | XMS_ITS | Clinical Summary ---
Author Organization [facility] al Address [address] [place] [address] Care Team Providers Care Behavioral Sciences Instructor Name Role Phone Saul Powers MD Primary Care Provider [phone] Allergies No known active allergies Medications No known medications Active Problems No known active problems Encounters Date Type Department Care Team Description 08/25/2025 Telephone [facility] [address] [address] Rolando Rivera MD Insurance Referrals [...] on file Legal Sex Female 8:36 PM PLATE INSPECTOR Gender Identity Not on file Sexual [...] (2 of 3) 12/28/2015 11/02/2015 Covid-19 Vaccine (2024-12 6 season) 2025 09/13/2022, 05/27/2022, 07/22/2021, Additional history exists Influenza Vaccine (#1) 2025 4, 09/13/2022, 09/28/2021, Additional history exists DTaP/Tdap/Td Vaccine (5 - Td or Tdap) 05/07/2035 05/07/2025, 07/31/2020, 08/27/2019, Additional history exists Pneumococcal vaccine 65+ Completed 019, 08/06/2019, 09/02/2016 Hepatitis B Screening Completed 07/31/2020, 020 Breast Cancer Screening-Mammogram Discontinued 05/12/2022, 05/12/2022, 05/13/[address] [place] [address] [facility] MEDICARE ADVANTAGE [facility] LIFE [facility] Address[facility] [address] [place] [address] [place] [address] [employer] MEDICARE ADVANTAGE [facility] [employer] Care Teams Behavioral Sciences Instructor Relationship Specialty Start Date End Date Saul Powers MD [address] [place] [address] PCP - General Family Medicine 06/19/23
--- OUTSIDE RECORDS SUMMARY | 2025-10-08 04:43 | XMS_ITS | Encounter Summary ---
Author Organization [facility] Address [address] [place] [address] Care Team Providers Care Plastic Die Maker Apprentice Name Role Phone Artie Perkins MD Primary Care Provider Encounter Details Date Type Department Care Team (Latest Contact Info) Description 02/24/2005 Outpatient Historical [facility] Ildefonso Cameron MD [address] [place] [address] SWELLING OF LIMB (Primary Dx) Social History Tobacco Use Types Packs/Day Years Used Date Smoking Tobacco: Never Assessed Comments Unknown Sex and Gender Information Value Date Recorded Sex Assigned at Not on file Legal Sex Female 3:35 AM CONSERVATION SCIENTIST Gender Identity Not on file Sexual Orientation Not on file documented as of this encounter Plan of Treatment Not on file documented as of this encounter Visit Diagnoses Diagnosis Swelling of limb- Primary documented in this encounter Additional Health Concerns Infection Onset Date Last Indicated Resolved Time R/O Respiratory 12/22/2023 12/22/2023 12/22/2023 1 :57 PM CONSERVATION SCIENTIST documented as of this encounter Care Teams Plastic Die Maker Apprentice Relationship Specialty Start Date End Date Artie Perkins MD [address] [place] [address] PCP - General Internal Medicine 12/13/23 documented as of this encounter
--- OUTSIDE RECORDS SUMMARY | 2025-10-08 04:43 | XMS_ITS | Encounter Summary ---
Author Organization [facility] Address [address] [place] [address] Care Team Providers Care Structural Welder Name Role Phone Artie Perkins MD Primary Care Provider Encounter Details Date Type Department Care Team (Latest Contact Info) Description 02/18/2005 Outpatient Historical [facility] Ildefonso Cameron MD [address] [place] [address] DERANG POST MED MENISCUS (Primary Dx) Social History Tobacco Use Types Packs/Day Years Used Date Smoking Tobacco: Never Assessed Comments Unknown Sex and Gender Information Value Date Recorded Sex Assigned at Not on file Legal Sex Female 3:35 AM COPY CHIEF Gender Identity Not on file Sexual Orientation Not on file documented as of this encounter Plan of Treatment Not on file documented as of this encounter Procedures Procedure Name Priority Date/Time Associated Diagnosis Comments HEMOGLOBIN AND HEMATOCRIT Routine 02/17/2005 3:45 PM COPY CHIEF BASIC METABOLIC PANEL Routine 02/17/2005 3:45 PM COPY CHIEF documented in this encounter Results * HEMOGLOBIN AND HEMATOCRIT (02/17/2005 3:45 PM COPY CHIEF) HEMOGLOBIN 12.2 11.8 - 14.8 g/dL INTERFACE SYSTEM HEMATOCRIT 38.1 35.5 - 44.0 % INTERFACE SYSTEM 02/17/2005 3:45 PM COPY CHIEF us Ildefonso Cameron MD HEMATOLOGY ORDERABLES Final Re sult Performing Organization Address [facility] de Phone Number INTERFACE SYSTEM Refer to clinic/hospital department * (ABNORMAL) BASIC METABOLIC PANEL (02/17/2005 3:45 PM COPY CHIEF) GLUCOSE 96 65 - 109 mg/dL INTERFACE [...] 30 mmol/L INTERFACE SYSTEM 02/17/2005 3:45 PM COPY CHIEF Ildefonso Cameron MD CHEMISTRY ORDERABLES Final Res ult Performing Organization Address [facility] Phone Number INTERFACE SYSTEM Refer to clinic/hospital department documented in this encounter Visit Diagnoses Diagnosis Derangement of posterior horn of medial meniscus- Primary documented in this encounter Additional Health Concerns Infection Onset Date Last Indicated Resolved Time R/O Respiratory 12/22/2023 12/22/2023 12/22/2023 1 :57 PM COPY CHIEF documented as of this encounter Care Teams Structural Welder Relationship Specialty Start Date End Date Artie Perkins MD [address] [place] [phone] PCP - General Internal Medicine 12/13/23 documented as of this encounter
--- OUTSIDE RECORDS SUMMARY | 2025-10-08 04:43 | XMS_ITS | Encounter Summary ---
Author Organization [facility] Address [address] [place] [address] Care Team Providers Care Jet Piercer Operator Name Role Phone Artie Perkins MD Primary Care Provider [phone] Encounter Details Date Type Department Care Team (Late st Contact Info) Description 08/10/1998 Outpatient Historical [facility] María Elena Ch Social History Tobacco Use Types Packs/Day Years Used Date Smoking Tobacco: Never Assessed Comments Unknown Sex and Gender Information Value Date Recorded Sex Assigned at Not on file Legal Sex Female 3:35 AM MASTER MERCHANDISER Gender Identity Not on file Sexual Orientation Not on file documented as of this encounter Plan of Treatment Not on file documented as of this encounter Visit Diagnoses Not on filedocumented in this encounter Additional Health Concerns Infection Onset Date Last Indicated Resolved Time R/O Respiratory 12/22/2023 12/22/2023 12/22/2023 1 :57 PM MASTER MERCHANDISER documented as of this encounter Care Teams Jet Piercer Operator Relationship Specialty Start Date End Date Artie Perkins MD [address] [facility] [place] [phone] PCP - General Internal Medicine 12/13/23 documented as of this encounter
--- OUTSIDE RECORDS SUMMARY | 2025-10-08 04:44 | XMS_ITS | Encounter Summary ---
Author Organization [facility] Address [address] [place] [address] Care Team Providers Care Dietitian Therapeutic Name Role Phone Artie Perkins MD Primary Care Provider Encounter Details Date Type Department Care Team (Late st Contact Info) Description 02/17/2005 Outpatient Historical [facility] Support Serv. (Adt Cardiology-[facility]) [address] [place] [address] Chad Greer Social History Tobacco Use Types Packs/Day Years Used Date Smoking Tobacco: Never Assessed Comments Unknown Sex and Gender Information Value Date Recorded Sex Assigned at Not on file Legal Sex Female 3:35 AM MATERIALS MANAGEMENT SUPERVISOR Gender Identity Not on file Sexual Orientation Not on file documented as of this encounter Plan of Treatment Not on file documented as of this encounter Visit Diagnoses Not on filedocumented in this encounter Additional Health Concerns Infection Onset Date Last Indicated Resolved Time R/O Respiratory 12/22/2023 12/22/2023 12/22/2023 1 :57 PM MATERIALS MANAGEMENT SUPERVISOR documented as of this encounter Care Teams Dietitian Therapeutic Relationship Specialty Start Date End Date Artie Perkins MD [address] [place] [address] PCP - General Internal Medicine 12/13/23 documented as of this encounter
--- OUTSIDE RECORDS SUMMARY | 2025-10-08 04:44 | XMS_ITS | Clinical Summary ---
Author Organization [facility] Address [address] [place] [address] Phone Care Team Providers Care Brake Repair Mechanic Name Role Phone Artie Perkins MD Primary [...] daily. 4 Active naloxone (NARCAN) 4 mg/spray [place], Non-Aerosol EMERGENCY USE ONLY: Administer 1 spray [...] on file Legal Sex Female 3:35 AM APPLIED EXERCISE PHYSIOLOGIST Gender Identity Not on file Sexual Orientation Not on file Last Filed Vital Signs Vital Sign Reading Time Taken Comments Blood Pressure 123/60 01/26/2024 8:25 AM APPLIED EXERCISE PHYSIOLOGIST Pulse 78 01/26/2024 8:25 AM APPLIED EXERCISE PHYSIOLOGIST Temperature 37 C (98.6 F) 01/26/2024 8:25 AM APPLIED EXERCISE PHYSIOLOGIST Respiratory Rate 18 01/26/2024 8:25 AM APPLIED EXERCISE PHYSIOLOGIST Oxygen Saturation 99% 01/26/2024 8:25 AM APPLIED EXERCISE PHYSIOLOGIST Inhaled Oxygen Concentration - - Weight 64.5 kg (142 lb 1.6 oz) 01/25/2024 6:03 P M APPLIED EXERCISE PHYSIOLOGIST Height 165.1 cm (5' 5) 12/13/2023 2:49 PM APPLIED EXERCISE PHYSIOLOGIST Body Mass Index 23.65 12/13/2023 2:49 PM APPLIED EXERCISE PHYSIOLOGIST Plan of Treatment Health Maintenance Due Date Last Done Comments FIT-DNA Q 3 years 1995 FIT/FOBT Q 1 year 1995 Flex Sig/CT Colonography Q 5 years 1995 OSTEOPOROSIS SCREENING 2015 ZOSTER VACCINE (2 of 3) 12/28/2015 11/02/2015 RSV VACCINE (60+ or ) (1 - 1-dose 75+ series) 2025 INFLUENZA VACCINE (#1) 2025 , 09/28/2021, 08/17/2020, Additional history exists COVID-19 Vaccine (2024-2 6 season) 2025 09/13/2022, 05/27/2022, 07/22/2021, Additional history exists COLORECTAL SCREENING 05/02/2027 05/02/2022, 05/02/2022, 03/18/2016, Additional history exists Colorectal Cancer Screening 05/02/2027 DTAP/TDAP/TD VACCINES (4 - T d or Tdap) 07/31/2030 07/31/2020, 08/27/2019, 06/08/2017 PNEUMOCOCCAL VACCINE 50+ YEARS Completed 1 , 08/06/2019, 09/02/2016 Medical Devices Implanted Type Area Food Server Device Identifier Shelf Expiration Date Model / Serial / Lot Sealant Hemaflex [id number] - [id number] Implanted:Qty : 1 on 01/05/2024 by Bello Doan DO at [facility] Biological N/A: Abdomen BARD DAVOL 04/16/2026 [id number] / / [id number] Clip Hemolok Lrg [id number] - Csc - [id number] Implanted:Qty : 1 on 01/05/2024 by Bello Doan DO at [facility] Clip N/A: Abdomen TELEFLEX- WECK CLOSURE SYS 09/26/2028 [id number] / / [id number] Port Powerport Clearvue 8fr Mri [id number] Implanted:Qty : 1 on 04/04/2022 by Lino Agarwal MD Port CR BARD- [employer] 04/19/2023 [id number] / / [id number] Port Explanted:Qty : 1 on 04/04/2022 by Lino Agarwal MD Procedures Procedure Name Priority Date/Time Associated Diagnosis Comments COLONOSCOPY REPORT 05/02/2022 12 :15 PM CDT from Last 3 Months or Most Recently Relevant to Health Maintenance Results * COLONOSCOPY REPORT (05/02/2022 12:15 PM CDT) Narrative Procedure Note Santino Goldman MD - 05/02/2022 12:15 PM CDT [facility] Patient Name: Pantera Stock Procedure Date: 05/02/2022 Date of : 1950 Attending MD: Santino Goldman MD Procedure: Colonoscopy Indications: High risk colon cancer surveillance: Personal history of colonic polyps Providers: Santino Goldman MD Referring MD: aNbor Valle MD Medicines: Monitored Anesthesia Care Complications: [...] bowel preparation was evaluated using the BBPS (Foster Bowel Preparation Scale) with scores of: Right Colon = 3, Transverse Colon = 3 and Left Colon = 3 (entire mucosa seen well with no residual staining, small fragments of stool or opaque liquid). The total BBPS score equals 9. The quality of the bowel preparation was evaluated using the BBPS (Foster Bowel Preparation Scale) with scores of: Right [...] individual at high risk CPT copyright 2020 [employer]. All rights reserved. The codes documented in this report are preliminary and upon camera control operator review may be revised to meet current compliance requirements. Santino Goldman MD 05/02/2022 12:15:08 PM This report has been signed electronically. Number of Addenda: [id number] [place] [address] Santino Goldman MD GI PROCEDURE ORDERABLES Final Re sult from Last 3 Months or Most Recently Relevant to [place] [address] [place] [address] [facility] Soraa [facility] [place] [phone] [place] [address] RX [employer] RX Member Subscriber Plan / Payer (Ef fective 2016-Present) Name:Pantera Stock Relation to Subscriber:Self Name:Pantera Stock Payer ID:Not on file Group ID:[id number] Type:RX Medicare Part D Address: [place] [address] [place] [address] [facility] [id number] Member Subscriber Plan / Payer (Ef fective 2021-Present) Name:Pantera Stock Relation to Subscriber:Self Name:Pantera Stock Payer ID:[id number] (NAIC) Type:PPO Address: [address] [facility] Advance Directives For more information, please contact: [phone] * Full Code (Latest Code Status on File) Date Activated Date Inactivated Comments 01/05/2024 10:15 AM 01/26/2024 6:04 PM * Full Code Date Activated Date Inactivated Comments 12/14/2023 4:48 AM 01/05/2024 10:15 AM * Full Code Date Activated Date Inactivated Comments 06/10/2023 10:01 AM 06/16/2023 7:08 PM * Full Code Date Activated Date Inactivated Comments 06/09/2023 11:37 AM 06/10/2023 10:01 AM Care Teams Brake Repair Mechanic Relationship Specialty Start Date End Date Artie Perkins MD [address] [place] [address] PCP - General Internal Medicine 12/13/23
--- OUTSIDE RECORDS SUMMARY | 2025-10-08 04:44 | XMS_ITS | Encounter Summary ---
Author Organization [facility] Address [address] [facility] [place] [address] Care Team Providers Care Nurse School Name Role Phone Nabor Valle MD Primary Care Provider [phone] Chanelle Flood SALVAGE WORKER-RADIOLOGIC ELECTRONIC SPECIALIST Unavailable [phone] Veronica Henderson SALVAGE WORKER-RADIOLOGIC ELECTRONIC SPECIALIST Unavailable Rosa Dobson MD Unavailable Rosario Lundberg MD Unavailable Veronica Henderson SALVAGE WORKER-RADIOLOGIC ELECTRONIC SPECIALIST Primary Care Provider Veronica Henderson SALVAGE WORKER-RADIOLOGIC ELECTRONIC SPECIALIST Unavailable Saul Powers MD Primary Care Provider Veronica Otero SALVAGE WORKER-RADIOLOGIC ELECTRONIC SPECIALIST Unavailable Veronica Henderson SALVAGE WORKER-RADIOLOGIC ELECTRONIC SPECIALIST Unavailable [phone] Saul Powers MD Unavailable Unavailable Shelby Nguyen [facility] Unavailable Shara Bello HANDBAG FRAMES INSPECTOR Unavailable Saul Powers MD Unavailable Unavailable Christina Kirk RN Unavailable Smita Bolanos RN Unavailable Smita Bolanos RN Unavailable Veronica Henderson SALVAGE WORKER-RADIOLOGIC ELECTRONIC SPECIALIST Unavailable [phone] Saul Powers MD Primary Care Provider Artie Zepeda MD Primary Care Provider [phone] Saul Powers MD Unavailable Unavailable Martin Hutchison MA Unavailable [phone] Saul Powers MD Unavailable Unavailable Corinne Sanelle SALVAGE WORKER-RADIOLOGIC ELECTRONIC SPECIALIST Unavailable Artie Perkins MD Unavailable Martin Hutchison MA Unavailable Kobe Collado MD Primary Care Provider Encounter Details Date Type Department Care Team (Late st Contact Info) Description 09/02/2020 [facility] Outpatient Visit [facility] - Family Medicine [address] [place] [address] Nabor Valle MD [address] [facility] [place] [address] Social History Tobacco Use Types [...] on filedocumented in this encounter Care Teams Nurse School Relationship Specialty Start Date End Date Nabor Valle MD PCP - General Family Medicine 08/29/16 07/04/21 Chanelle Flood APRN-VANESSA [address] [place] [address] PCP - Attributed-[facility] 01/19/20 05/19/21 Veronica Henderson APRN-VANESSA [address] [place] [address] PCP - General Nurse Practitioner Family 07/05/21 01/06/22 Veronica Henderson APRN-CNP [address] [place] [address] PCP - Attributed-[facility] 05/20/21 11/04/21 Saul Powers MD [address] [place] [address] PCP - General Family Medicine 01/07/22 11/15/23 Veronica Henderson APRN-RADIOLOGIC ELECTRONIC SPECIALIST [address] [place] [address] PCP - Attributed-[facility] [place] 12/21/21 05/06/22 Veronica Henderson APRN-RADIOLOGIC ELECTRONIC SPECIALIST [address] [place] [address] PCP - Attributed-[facility] [place] 07/21/22 11/19/22 Saul Powers MD PCP - Attributed-[facility] MA 11/20/22 02/04/23 Saul Powers MD PCP - Attributed-[facility] MA 04/20/23 06/19/23 Veronica Henderson APRN-RADIOLOGIC ELECTRONIC SPECIALIST [address] [place] [address] PCP - Attributed-[facility] [place] 06/20/23 09/06/23 Saul Powers MD PCP - General Family Medicine 11/16/23 11/21/23 Artie Perkins MD [address] [place] [address] PCP - General Internal Medicine 11/27/23 11/19/24 Saul Powers MD PCP - Attributed-[facility] MA 01/19/24 02/08/24 Saul Powers MD PCP - Attributed-[facility] MA [facility] P[facility]P 02/19/24 09/06/24 Artie Perkins MD [address] [place] [address] PCP - Attributed-[facility] MA [facility] P[facility] 01/18/25 04/06/25 Kobe Collado MD [address] [place] [address] PCP - General Family Medicine 11/20/24 Veronica Henderson APRN-RADIOLOGIC ELECTRONIC SPECIALIST [address] [place] [address] Nurse Practitioner Family 06/10/21 Rosa Dobson MD [address] [address] Rheumatology 06/10/21 Rosario Lundberg MD [address] [id number] Dermatology 06/10/21 Shelby Nguyen [facility] Outpatient Solar Installer Care Management 06/08/23 06/08/23 Shara Bello, HANDBAG FRAMES INSPECTOR Outpatient Solar Installer Care Management 06/08/23 06/22/23 Christina Kirk RN Post Acute Saturation DiverBending Shed Worker 06/22/23 06/26/23 Smita Bolanos, RN Saturation DiverBending Shed Worker 06/26/23 06/27/23 Smita Bolanos, RN Saturation DiverBending Shed Worker 07/05/23 08/14/23 Martin Hutchison, JAYA [address] [address] Care Coordination Specialist Care Management 02/27/24 04/12/24 Corinne San APRN-RADIOLOGIC ELECTRONIC SPECIALIST [address] [place] [address] Nurse Practitioner 05/15/24 Martin Hutchison, JAYA [address] [facility] [address] [place] [address] Care Coordination Specialist Care Management 05/22/25 05/26/25 documented as of this encounter
--- OUTSIDE RECORDS SUMMARY | 2025-10-08 04:45 | XMS_ITS | Encounter Summary ---
Author Organization [facility] Address [address] [place] [address] Care Team Providers Care Solar Sales Representative Name Role Phone Artie Perkins MD Primary Care Provider Reason for Visit * Reason Onset Date Comments Possible R knee septic arthr itis, staple removal evaluation 01/13/2024 LEFT VOICEMAIL ON Sun Number'S PA CRYS Encounter Details Date Type Department Care Team (Late st Contact Info) Description 01/13/2024 Telephone [facility] Admitting [address] [place] [address] [place] [address] [place] [address] Possible R knee septic arthritis, staple removal evaluation (LEFT VOICEMAIL ON Sun Number'S PAGER) Social History Tobacco Use Types Packs/Day [...] on file Legal Sex Female 3:35 AM ELECTRIC STOP INSTALLER Gender Identity Not on file Sexual Orientation Not on file documented as of this encounter Plan of Treatment Not on file documented as of this encounter Visit Diagnoses Not on filedocumented in this encounter Care Teams Solar Sales Representative Relationship Specialty Start Date End Date Artie Perkins MD [address] [place] [address] PCP - General Internal Medicine 12/13/23 documented as of this encounter
--- OUTSIDE RECORDS SUMMARY | 2025-10-08 04:45 | XMS_ITS | Encounter Summary ---
Author Organization [facility] Address [address] [place] [address] Care Team Providers Care Regional Marketing Director Name Role Phone Nabor Valle MD Primary Care Provider Chanelle Flood SYSTEM MANAGER-FILAMENT CUTTER Unavailable [phone] Veronica Henderson SYSTEM MANAGER-FILAMENT CUTTER Unavailable Rosa Dobson MD Unavailable Rosario Lundberg MD Unavailable Veronica Henderson SYSTEM MANAGER-FILAMENT CUTTER Primary Care Provider Veronica Henderson SYSTEM MANAGER-FILAMENT CUTTER Unavailable Saul Powers MD Primary Care Provider Veronica Otero SYSTEM MANAGER-FILAMENT CUTTER Unavailable [phone] Veronica Henderson SYSTEM MANAGER-FILAMENT CUTTER Unavailable Saul Powers MD Unavailable Unavailable Shelby Nguyen [facility] Unavailable Shara Bello CLINIC DIRECTOR Unavailable Saul Powers MD Unavailable Unavailable Christina Kirk RN Unavailable Smita Bolanos RN Unavailable Smita Bolanos RN Unavailable Veronica Henderson SYSTEM MANAGER-FILAMENT CUTTER Unavailable [phone] Saul Powers MD Primary Care Provider Artie Zepeda MD Primary Care Provider Saul Powers MD Unavailable Unavailable Martin Hutchison MA Unavailable [phone] Saul Powers MD Unavailable Unavailable Corinne San SYSTEM MANAGER-FILAMENT CUTTER Unavailable Artie Perkins MD Unavailable Martin Hutchison MA Unavailable Kobe Collado MD Primary Care Provider [phone] Encounter Details Date Type Department Care Team (Late st Contact Info) Description 07/24/2018 [facility] Outpatient Visit [facility] - Endocrinology [address], [address] [place] [address] Rosa Dobson MD [address] [facility] [address] [place] [address] Social History Tobacco Use Types [...] on filedocumented in this encounter Care Teams Regional Marketing Director Relationship Specialty Start Date End Date Nabor Valle MD PCP - General Family Medicine 08/29/16 07/04/21 Chanelle Flood APRN-CNP [address] [place] [address] PCP - Attributed-[facility] 01/19/20 05/19/21 Veronica Henderson APRN-CNP [address] [place] [address] PCP - General Nurse Practitioner Family 07/05/21 01/06/22 Veronica Henderson APRN-CNP [address] [place] [address] PCP - Attributed-[facility] 05/20/21 11/04/21 Saul Powers MD [address] [place] [address] PCP - General Family Medicine 01/07/22 11/15/23 Veronica Henderson APRN-CNP [address] [place] [address] PCP - Attributed-[facility] [place] 12/21/21 05/06/22 Veronica Henderson SYSTEM MANAGER-FILAMENT CUTTER [address] [place] [address] PCP - Attributed-[facility] [place] 07/21/22 11/19/22 Saul Powers MD PCP - Attributed-[facility] [place] 11/20/22 02/04/23 Saul Powers MD PCP - Attributed-[facility] [place] 04/20/23 06/19/23 Veronica Henderson SYSTEM MANAGER-FILAMENT CUTTER [address] [place] [address] PCP - Attributed-[facility] [place] 06/20/23 09/06/23 Saul Powers MD PCP - General Family Medicine 11/16/23 11/21/23 Artie Perkins MD [address] [place] [address] PCP - General Internal Medicine 11/27/23 11/19/24 Saul Powers MD PCP - Attributed-[facility] [place] 01/19/24 02/08/24 Saul Powers MD PCP - Attributed-[facility] MD [facility] 02/19/24 09/06/24 Artie Perkins MD [address] [place] [id number] PCP - Attributed-[facility] [place] [facility] 01/18/25 04/06/25 Kobe Collado MD [address] [place] [phone] PCP - General Family Medicine 11/20/24 Veronica Henderson APRN-FILAMENT CUTTER [address] [place] [address] Nurse Practitioner Family 06/10/21 Rosa Dobson MD [address] [id number] Rheumatology 06/10/21 Rosario Lundberg MD [address] [id number] Dermatology 06/10/21 Shelby Nguyen [facility] Outpatient Principal Software Architect Care Management 06/08/23 06/08/23 Shara Bello, CLINIC DIRECTOR Outpatient Principal Software Architect Care Management 06/08/23 06/22/23 Christina Kirk RN Post Acute Lime Kiln Worker HelperPlant Maintenance Supervisor 06/22/23 06/26/23 Smita Bolanos, RN [employer] Worker HelperPlant Maintenance Supervisor 06/26/23 06/27/23 Smita Bolanos, RN [employer] Worker HelperPlant Maintenance Supervisor 07/05/23 08/14/23 Martin Hutchison, JAYA [address] [place] [address] Care Coordination Specialist Care Management 02/27/24 04/12/24 Corinne San APRN-FILAMENT CUTTER [address] [place] [address] Nurse Practitioner 05/15/24 Martin Hutchison MA [address] [facility] [place] [address] Care Coordination Specialist Care Management 05/22/25 05/26/25 documented as of this encounter
--- OUTSIDE RECORDS SUMMARY | 2025-10-08 04:45 | XMS_ITS | Clinical Summary ---
Author Organization [facility] Address [address] [place] [address] Care Team Providers Care Journalism Instructor Name Role Phone Salimamackenzie Veronica SILK OPENER-MATERIAL PLANNING ANALYST Unavailable [phone] Rosa Dobson MD Unavailable [phone] Rosario Lundberg MD Unavailable Corinne San SILK OPENER-MATERIAL PLANNING ANALYST Unavailable Kobe Collado MD Primary Care Provider [phone] Source Comments [facility],non-owned Affiliates and Associated Physician Practices is amultiple site organization consisting of ambulatory clinics and hospital sitesin [place], [place], [place] and [place]. This disclosure is being madepursuant to the Care Everywhere program and may not contain all information available regarding this patient. 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 No 06/29/2023 Comments No Sex [...] - 1-dose 75+ series) 2025 COVID-19 VACCINE (2024- season) 2025 08/13/2024, 09/13/2022, 05/27/2022, Additional history exists INFLUENZA VACCINE (#1) 2025 , 09/13/2022, 09/28/2021, Additional history exists COLONOSCOPY - COLON CA SCREENING 01/18/2026 01/19/2016 (Done Outside Per Patient) Colorectal Cancer Screening 01/18/2026 LIPID TESTING 04/27/2028 04/27/2023, 04/0 07/2022, 07/31/2021, Additional history exists DTAP/TDAP/TD VACCINES (4 - [...] this topic Medical Devices Implanted Type Area Ergonomics Engineer Device Identifier Shelf Expiration Date Model / Serial / Lot Floseal 10 Implanted:Qty : 1 on 12/26/2017 by Abisai Galvez DO at [facility] [employer] 02/22/2019 [id number] / / [id number] Graft Bone Alfs + Dbm 1ml Pst Implanted:Qty : 1 on 12/26/2017 by Abisai Galvez DO at [facility] [employer] 09/23/2018 [id number] / / [id number] Level Plate 40mm Implanted:Qty : 1 on 12/26/2017 by Abisai Galvez DO at [facility] [employer] [id number] / / Self Tapping Screw 4.0x12 Implanted:Qty : 6 on 12/26/2017 by Abisai Galvez DO at [facility] [employer] [id number] / / Spacer 6mm Implanted:Qty : 2 on 12/26/2017 by Abisai Galvez DO at [facility] [employer] [id number] / / Procedures Procedure Name Priority Date/Time [...] Agency Comment Lab Testing performed at: [facility] [address] [facility] [id number] Saul Powers MD LAB - CHEMISTRY ORDERABLES Fi nal Result [facility] ACCOUNT BILL [address] [place] [address] * MAMMOGRAM (05/12/2022) Anatomical Region Laterality Modality [...] with a HCV Nucleic Acid Amplification test ([id number]). Blood BLOOD SPECIMEN / Unknown 07/31/2021 9:36 AM CDT 07/31/2021 Narrative Resulting Agency Comment Lab Testing performed at: [facility] [address] [facility] [id number] Chanelle Flood SILK OPENER-MATERIAL PLANNING ANALYST LAB - CHEMISTRY ORD ERABLES Final Result [facility] ACCOUNT BILL [address] [place] [address] from Last 3 Months or Most Recently Relevant to [place] [address] [place] [phone] [facility] UHC MANAGED MEDICARE ADV [facility] MANAGED MEDICARE ADV [facility] Advance Directives * Full Code (Latest Code [...] 7:35 PM 05/07/2016 12:28 PM Care Teams Journalism Instructor Relationship Specialty Start Date End Date Kobe Collado MD [address] [place] [address] ALIRIO Blakely [phone] PCP - General Family Medicine 11/20/24 Veronica Henderson APRN-MATERIAL PLANNING ANALYST Nurse Practitioner [facility] 06/10/21 Rosa Dobson MD [address] [id number] Rheumatology 06/10/21 Rosario Lundberg MD [address] [address] Dermatology 06/10/21 Corinne San APRN-MATERIAL PLANNING ANALYST [address] [place] [phone] Nurse Practitioner 05/15/24
--- OUTSIDE RECORDS SUMMARY | 2025-10-08 04:45 | XMS_ITS | Clinical Summary ---
Author Organization [facility] Address [address] [place] [address] Care Team Providers Care Client Portfolio Manager Name Role Phone None, Provider MD Primary [...] place to sleep or slept in a senior care (including now)? No 07/11/2023 Comments No Sex and Gender Information Value Date Recorded Sex Assigned at Not on file Legal Sex Female 10:31 AM CDT Gender Identity Not on file Sexual Orientation Not on file Last Filed Vital Signs Vital Sign Reading Time Taken Comments Blood Pressure 166/84 10/10/2024 6:00 PM SHOTGUN SHELL ASSEMBLY MACHINE ADJUSTER Pulse 73 10/10/2024 6:26 PM SHOTGUN SHELL ASSEMBLY MACHINE ADJUSTER Temperature 36.3 C (97.4 F) 10/10/2024 3:57 PM SHOTGUN SHELL ASSEMBLY MACHINE ADJUSTER Respiratory Rate 18 10/10/2024 6:26 PM SHOTGUN SHELL ASSEMBLY MACHINE ADJUSTER Oxygen Saturation 100% 10/10/2024 6:26 PM SHOTGUN SHELL ASSEMBLY MACHINE ADJUSTER Inhaled Oxygen Concentration - - Weight 56 kg (123 lb 7.3 oz) 10/10/2024 3:57 PM SHOTGUN SHELL ASSEMBLY MACHINE ADJUSTER Height 165.1 cm (5' 5) 10/10/2024 3:57 PM SHOTGUN SHELL ASSEMBLY MACHINE ADJUSTER Body Mass Index 20.54 10/10/2024 3:57 PM SHOTGUN SHELL ASSEMBLY MACHINE ADJUSTER Plan of Treatment Health Maintenance Due Date Last Done Comments Colorectal Cancer Screening Colonoscopy (10 Years) 1950 Annual Medicare Wellness Visit 2015 Dexa Scan (General) 2015 Zoster Vaccines (1 of 2) 12/28/2015 11/02/2015 RSV Immunization or 60+ Years (1 - 1-dose 75+ series) 2025 COVID-19 Vaccine ( season) 2025 08/13/2024, 09/13/2022, 05/27/2022, Additional history exists Influenza Adult (#1) 2025 08/13/2024, 08/17/2020, 08/28/2019, Additional history exists DTaP, Tdap and Td Vaccines (5 - Td or Tdap) 07/31/2030 07/31/2020, 08/27/2019, 08/27/2019, Additional history exists Pneumococcal Vaccine: 50+ Years Completed 08/28/2019, 08/06/2019, 09/02/2016 Hepatitis A Vaccines Aged Out 07/31/2020 No long er eligible based on patient's age to complete this topic Hepatitis C Completed 07/31/2021 Meningococcal B Vaccine [...] discharge from hospital Lifestyle No Karlie Gamez, [place] [id number] [facility] UHC MEDICARE Advance Directives * Full Code (Latest Code Status on File) Date Activated Date Inactivated Comments 07/11/2023 1:54 AM 07/12/2023 3:07 PM Care Teams Client Portfolio Manager Relationship Specialty Start Date End Date None, Provider, PCP - General UNKNOWN PHYSICIAN SPECIALTY 07/10/23
--- OUTSIDE RECORDS SUMMARY | 2025-10-08 04:46 | XMS_ITS | Patient Health Record ---
Author Organization [facility] Samuel Ri Address [address] [place] [address] Care Team Providers Care Digital Content Specialist Name Role Phone RHONDAARISTEOTEODORO JUDY Primary Care [...] 2.5 MG [address] NAHTAN Not-Taking HYDROcodone-Acetamino phen 7.5-325 MG 1 tablet [...] Status Risk Notes Problem Pure hypercholesterolemi a (197967681) Pure hypercholesterole teresa (E78.0) Active confirmed Problem Mixed hyperlipidemia (691081441) Mixed hyperlipidemia (E78.2) Active confirmed Problem Essential hypertension (77326979) Essential (primary) hypertension (I10) Active confirmed Diagnosed by history. Stable on medication. 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 Needs improvement. Problem Psoriatic arthritis (disorder) (063330344) Arthropathic psoriasis, unspecified (L40.50) Active confirmed Dx by exam. 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 Stable. Follows rheumatology . Problem Right side sciatica (987331370901180) Sciatica, right side (M54.31) Active confirmed Dx by history. Needs improvement. Problem Personal history of primary malignant neoplasm of breast (977424339) Personal history of malignant neoplasm of breast (Z85.3) Active confirmed Problem History of thromboembolism of vein (678879748) Personal history of other venous thrombosis and embolism (Z86.718) Active confirmed Problem Body mass index 30.00 to 34.99 (431522724813933) Body mass index (BMI) 34.0-34.9, adult (Z68.34) Active confirmed Problem Long-term current use of anticoagulant (679251620) shelter current use of anticoagulant therapy (Z79.01) Active confirmed Diagnosed b y history. Stable on medication. Problem Angioedema (36682583) Angioedema, subsequent encounter (T78.3XXD) Active confirmed Diagnosed by history. Resolving Encounters Encounter Location Date [facility] [address] [place] [address] 11/11/2024 JUDY HUFF Plan Of Treatment Pending Test Test Name Order Date Ultrasound : Breast, right 01/13/2015 Carotid Ultrasound 03/17/2015 CBC With Differential/Platelet 5 MRI : Brain with and without contrast Urinalysis, Routine 05/22/2014 Urinalysis, Complete 10/05/2015 CBC With Differential/Platelet 2013 CBC With Differential/Platelet 2015 Prothrombin Time (PT) 12/02/2015 Prothrombin Time (PT) 05/22/2014 Prothrombin Time (PT) 10/19/2015 Prothrombin Time (PT) 10/05/2015 Prothrombin Time (PT) 06/29/2015 Prothrombin Time (PT) 10/23/2014 Lipid Panel With LDL/HDL Ratio 6 Lipid Panel 05/22/2014 Comp. Metabolic Panel (14) 10/05/2015 Comp. Metabolic Panel (14) 01/25/2016 Comp. Metabolic Panel (14) 05/22/2014 LIPID PANEL [...] Insured Coverage Start Date Coverage End Date [facility] [address] [address] [place] [address] [id number] Montrell Tiesha Self - patient is the insured [facility] [address] [address] [place] [address] [id number] Montrell Tiesha Self - patient is the insured [facility] [address] [place] [address] [id number] [place] Tiesha Self - patient is the insured [employer] [address] [place] [address] [phone] [id number] Montrell Tiesha Self - patient is the [...]
[2025-10-08] MEDS: CENTRAL LINE FLUSH 10 ML IV PUSH ×3 (05:26→23:03)
[2025-10-08 05:27] VITALS: BP 152/69; PULSE 67; RESP 20; TEMP 36.5; O2SAT 98
[2025-10-08] MEDS: METOCLOPRAMIDE HCL 5 MG TABLET PO ×2 (05:30→17:42)
[2025-10-08] MEDS: ASPIRIN 81 MG CHEWABLE TABLET PO (09:00)
[2025-10-08] MEDS: PREGABALIN (*CRX) 50 MG CAPSULE PO ×2 (09:01→17:42)
[2025-10-08] MEDS: CLOPIDOGREL BISULFATE 75 MG TABLET PO (09:01)
[2025-10-08 09:02] VITALS: PULSE 67
[2025-10-08] MEDS: METOPROLOL SUCCINATE EXT REL 25 MG TABCR PO (09:02)
[2025-10-08] MEDS: PANTOPRAZOLE 40 MG TABLET PO (09:02)
[2025-10-08] MEDS: FERROUS SULFATE 325 MG TABLET PO ×2 (09:02→17:42)
[2025-10-08] MEDS: FUROSEMIDE INJ 40 MG/4 ML VIAL IV PUSH (09:03)
[2025-10-08 09:20] VITALS: O2SAT 98
[2025-10-08 11:07] VITALS: BMI 24.6
--- NOTE | 2025-10-08 11:58 | P.PNIM_ITS ---
Progress Note: A&P Assessment and Plan (1) Congestive heart failure: Code(s): I50.9 - Heart failure, unspecified Status: Acute Assessment and Plan: Heart failure with preserved ejection fraction, hyperdynamic LVEF and grade 1 diastolic dysfunction per echocardiogram last month. Hydrochlorothiazide stopped, IV furosemide started, improvement in lower extremity swelling noted (2) Hypertension: Qualifiers: Hypertension type: primary hypertension Qualified Code(s): I10 - Essential (primary) hypertension Code(s): I10 - Essential (primary) hypertension Status: Acute Assessment and Plan: Blood pressure reviewed, continue home medications (3) Rheumatoid arthritis: Qualifiers: Rheumatoid arthritis location: unspecified site Rheumatoid factor presence: unspecified presence Qualified Code(s): M06.9 - Rheumatoid arthritis, unspecified Code(s): M06.9 - Rheumatoid arthritis, unspecified Status: Acute Assessment and Plan: Continue prednisone 10 mg daily (4) Pneumonia: Qualifiers: Laterality: bilateral Lung location: lower lobe of lung Pneumonia type: due to unspecified organism Qualified Code(s): J18.9 - Pneumonia, unspecified organism Code(s): J18.9 - Pneumonia, unspecified organism Status: Acute Assessment and Plan: CT imaging on 10/05 shows findings of CHF with superimposed bilateral bronchopneumonia Patient currently on Levaquin daily New onset hypoxia requiring admission, wean oxygen as tolerated (5) Joint swelling: Code(s): M25.40 - Effusion, unspecified joint Status: Acute Assessment and Plan: Right knee swelling noted, previous episode of septic joint noted in records Patient reports she was supposed to get another drainage completed but never had orthopedic follow-up since she has been in snf facility. (6) Electrolyte disturbance: Code(s): E87.8 - Other disorders of electrolyte and fluid balance, not elsewhere classified Status: Acute Assessment and Plan: Chronic mild hyponatremia and hypocalcemia Time Spent With Patient Time with patient: Greater than 35 minutes Subjective Date/time seen: 10/08/25 11:58 Interval history: This is a 75-year-old female patient who is admitted to the hospital for hypoxia and pneumonia. Patient previously seen in the emergency department on 10/05 and diagnosed with bilateral pneumonia returning back to the emergency department on 10/07 with continued difficulty breathing and new oxygen demand/hypoxia. Patient was placed on oxygen 1-2 liters/minute and initiated on levofloxacin. Patient also found to have concern for fluid overload/congestive heart failure so her hydrochlorothiazide was stopped and she was started on furosemide 40 mg IV push daily. Chest x-ray showed cardiomegaly severe atherosclerotic aorta and some congestive changes of the lungs with small bilateral pleural effusions. CT scan of the abdomen pelvis was completed showing the same bilateral pleural ef fusion and cardiomegaly but no significant intra-abdominal findings. Patient currently complains of bilateral lower chest pain when she coughs only and she complains of shortness of breath with activity. She also had complained of bilateral lower leg swelling but notes that that is improving today. Patient reports that she had a previous stroke back in August and that she had her right knee drained and was supposed to have repeat draining but never received follow-up with orthopedics. She has been in [facility] facility for rehab since her stroke. CTA PE protocol was completed on 10/05 negative for PE showed signs of CHF and superimposed bronchopneumonia at that time. This scan was completed on that date because significantly elevated D-dimer of 5.48. Patient not currently on any anticoagulation due to anemia and prior bleeding. She is on aspirin and Plavix. No active bleeding noted at this time. Review of records shows the patient usually has chronic mild hyponatremia and hypocalcemia, sometimes potassium and magnesium are also low. Review of Systems Review of Systems: Patient denies chest pain except when she coughs, denies fever chills, denies nausea or vomiting, denies difficulties urinating or passing bowel movements. All systems reviewed & are unremarkable except as noted in HPI and below Exam Narrative: GENERAL: Appears with mild shortness of breath at rest and with talking, speaks very softly HEAD: Normocephalic, atraumatic. ENT:? Mucous membranes moist. CHEST: Mildly diminished lung sounds throughout, minimally dyspneic per observation. Supplemental oxygen in place HEART: Regular rate and rhythm. ? Normal peripheral pulses. ABDOMEN: Soft, nontender, nondistended. EXTREMITIES: Improving bilateral lower extremity edema, right knee swollen with effusion and tender to the touch. SKIN: Warm dry normal color NEURO: Alert and oriented x3. 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 PSYCH: Normal mood and affect Objective Data Vital Signs Vital Signs: Vital Signs - 24 hr 10/07/25 16:44 10/07/25 18:11 10/07/25 20:20 Temperature 36.9 C Pulse Rate 72 86 81 Respiratory Rate 19 20 17 Blood Pressure 138/74 134/72 156/73 H Pulse Oximetry 98 98 100 Oxygen Delivery Room Air Oxygen Flow Rate 10/07/25 20:56 10/07/25 21:31 10/07/25 21:32 Temperature Pulse Rate 73 72 Respiratory Rate 20 Blood Pressure 138/73 Pulse Oximetry 97 97 Oxygen Delivery Nasal Cannula Oxygen Flow Rate 1 10/07/25 23:01 10/07/25 23:11 10/07/25 23:45 Temperature 36.4 C Pulse Rate 67 73 Respiratory Rate 20 20 Blood Pressure 157/79 H 138/73 Pulse Oximetry 98 97 97 Oxygen Delivery Nasal Cannula Oxygen Flow Rate 2 10/08/25 05:27 10/08/25 09:02 10/08/25 09:20 Temperature 36.5 C Pulse Rate 67 67 Respiratory Rate 20 Blood Pressure 152/69 H Pulse Oximetry 98 98 Oxygen Delivery Nasal Cannula Oxygen Flow Rate 2 Intake/Output Intake/Output: Intake & Output 10/05/25 10/06/25 10/07/25 10/08/25 23:59 23:59 23:59 23:59 Intake Total 250 Output Total 250 1300 Balance -250 -1050 Meds/Results Medications: Active Medications Generic Name Dose Route Start Last Admin Trade Name Anay PRN Reason Stop Dose Admin Aspirin 81 mg 10/08/25 08:00 10/08/25 09:00 Aspirin 81 Mg Chewable Tablet PO 81 mg DAILY@0800 [facility] Administration Bisacodyl 10 mg 10/08/25 01:50 Bisacodyl 5 Mg Tablet Ec PO QAM PRN Constipation Clopidogrel Bisulfate 75 mg 10/08/25 09:00 10/08/25 09:01 Clopidogrel Bisulfate 75 Mg Tablet PO 75 mg QAM [facility]IROSLAVA Administration Ferrous Sulfate 325 mg 10/08/25 08:00 10/08/25 09:02 Ferrous Sulfate 325 Mg Tablet PO 325 mg BIDWM MIROSLAVA Administration Furosemide 40 mg 10/08/25 09:00 10/08/25 09:03 Furosemide Inj 40 Mg/4 Ml Vial IV PUSH 40 mg DAILY [facility]IROSLAVA Administration Heparin Sodium (Beef Lung) 50 units 10/08/25 09:00 10/08/25 09:03 Heparin Flush 50 Units/5 Ml Syringe IV PUSH 50 units QAM MIROSLAVA Administration Heparin Sodium (Beef Lung) 50 units 10/07/25 23:18 10/08/25 01:15 Heparin Flush 50 Units/5 Ml Syringe IV PUSH 50 units PRN PRN Administration after intermittent infusion Heparin Sodium (Beef Lung) 50 units 10/07/25 23:18 Heparin Flush 50 Units/5 Ml Syringe IV PUSH PRN PRN after blood draws Heparin Sodium (Porcine) 500 units 10/07/25 23:18 Heparin Sodium Lock Flush 500 Units/5 Ml Syringe IV PUSH PRN PRN see comments below Levofloxacin/Dextrose 750 mg in 150 mls @ 100 mls/hr 10/08/25 23:00 Levaquin 750 Mg/D5w 150 Ml IVPB Q24H MIROSLAVA Menthol/Methyl Salicylate 1 applic 10/08/25 01:50 Menthol 10% / Methyl Salicylate 15% 57 Gm Tube TOPICAL BID PRN muscle pain Metoclopramide HCl 5 mg 10/08/25 06:30 10/08/25 05:30 Metoclopramide Hcl 5 Mg Tablet PO 5 mg BIDAC MIROSLAVA Administration Metoprolol Succinate 25 mg 10/08/25 09:00 10/08/25 09:02 Metoprolol Succinate Ext Rel 25 Mg Tabcr PO 25 mg QAM [facility]IROSLAVA Administration Pantoprazole Sodium 40 mg 10/08/25 09:00 10/08/25 09:02 Pantoprazole 40 Mg Tablet PO 40 mg DAILY [facility] Administration Polyethylene Glycol 17 gm 10/08/25 09:00 10/08/25 09:03 Polyethylene Glycol 3350 17 Gm Powd.Pack PO Not Given DAILY [facility] Prednisone 10 mg 10/08/25 08:00 10/08/25 09:02 Prednisone 10 Mg Tablet PO 10 mg DAILY@0800 [facility] Administration Pregabalin 50 mg 10/08/25 09:00 10/08/25 09:01 Pregabalin (*Crx) 50 Mg Capsule PO 50 mg BID [facility]LA[facility] Administration Senna 8.6 mg 10/08/25 21:00 Sennosides 8.6 Mg Tablet PO HS [facility] Sodium Chloride 10 ml 10/08/25 06:00 10/08/25 05:26 Central Line Flush IV PUSH 10 ml Q8HR [facility] Administration Tramadol HCl 50 mg 10/08/25 01:50 Tramadol Hcl (*Crx) 50 Mg Tablet PO Q12H PRN Pain 4-6 Radiology Results: ITS Impressions Chest X-Ray 10/07/25 19:13 IMPRESSION: 1. Cardiomegaly, severe atherosclerotic aorta and mild congestive changes of lungs with small bilateral pleural effusions. Abdomen/Pelvis CT 10/07/25 20:32 IMPRESSION: 1. Labs Labs: Laboratory Results - last 24 hr 10/07/25 10/07/25 18:36 19:02 WBC 9.1 RBC 2.65 L Hgb 8.5 L Hct 27.0 L MCV 101.9 H MCH 32.1 MCHC 31.5 L RDW 16.0 H Plt Count 303 MPV 9.4 Immature Gran % (Auto) 4.2 H Neut % (Auto) 49.4 Lymph % (Auto) 29.4 [place] % (Auto) 7.1 Eos % (Auto) 9.3 H Baso % (Auto) 0.6 Lymph # (Auto) 2.66 [place] # (Auto) 0.6 Eos # (Auto) 0.8 H Baso # (Auto) 0.1 Abs Immat Gran (auto) 0.38 H Absolute Neuts (auto) 4.5 Absolute Nucleated RBC 0.000 Nucleated RBC % 0.0 Sodium 132 L Potassium 3.9 Chloride 99 Carbon Dioxide 29 Anion Gap 4 BUN 16 Creatinine 0.68 L Estim Creat Clear Calc 55 Estimated GFR > 60 Glucose 101 Calcium 8.0 L Total Bilirubin 0.6 AST 23 ALT 8 Alkaline Phosphatase 88 NT-Pro-B Natriuret Pep 448 H Total Protein 6.8 Albumin 2.7 L Urine Color Dark yellow Urine Appearance Clear Urine pH 7.5 Ur Specific [place] 1.019 Urine Protein Trace Urine Glucose (UA) Negative Urine Ketones Negative Ur Blood (Man) Negative Urine Nitrate Negative Urine Bilirubin Negative Urine Urobilinogen 4.0 H Leukocyte Esterase Rfl Trace H Urine RBC 0-2 Urine WBC 0-5 Ur Squamous Epith Cells None seen Urine Bacteria None seen Urine Casts 0-2 Pulse Oximetry SpO2 results: 98% on 2 L, later 100% on 1 L Attestation: I personally reviewed and interpreted this pulse oximetry as follows: Interpretation: Continue to titrate oxygen as tolerated Quality VTE Prophylaxis VTE prophylaxis: mechanical ordered Hospitalist MIPS Advance Care Plan I have confirmed that the patient's Advanced Care Plan is present, code status is documented, or surrogate decision maker is listed in patient medical record.: Yes Medication Reconciliation I have utilized all available resources to obtain, update and review the patients current medications (includes all prescriptions, OTC, herbals, canna bis, and nutritional supplements).: Yes
[2025-10-08 15:32] VITALS: BP 134/77; PULSE 72; RESP 18; TEMP 36.1; O2SAT 100
[2025-10-08 20:00] VITALS: O2SAT 100
[2025-10-08] MEDS: SENNOSIDES 8.6 MG TABLET PO (20:56)
[2025-10-08 21:07] VITALS: BP 125/65; PULSE 65; RESP 16; TEMP 36.9; O2SAT 100
[2025-10-08] MEDS: levoFLOXacin 750 MG/D5W 150 ML 750 MG/150 ML BAG 100 MG IVPB (23:04)
[2025-10-09 05:18] LABS: Hematocrit 26.3 % (37.0-47.0); Hemoglobin 8.4 g/dL (12.0-15.0); Immature Granulocyte Percent A 6.6 % (0-0.5); Lymphocytes Absolute Auto 3.10 K/mm3 (0.9-3.2); Mean Corpuscular HGB Conc 31.9 g/dl (32-36); Mean Corpuscular Hemoglobin 32.7 pg (26-34); Mean Corpuscular Volume 102.3 fl (80-100); Nucleated Red Blood Cells Absolute Auto 0.040 K/mm3 (0.0-0.012); Nucleated Red Blood Cells Perc 0.4 % (0.0-0.2); Platelet Count Result 346 k/mm3 (150-375); Red Blood Count 2.57 M/mm3 (4.2-5.4); White Blood Count 10.0 K/mm3 (4.5-10.0)
[2025-10-09 05:24] VITALS: BP 131/61; PULSE 69; RESP 16; TEMP 36.6; O2SAT 98
[2025-10-09 05:36] LABS: Alanine Aminotransferase 11 U/L (6-35); Albumin Level 2.7 g/dL (3.5-5.1); Alkaline Phosphatase 79 U/L (38-126); Anion Gap 5 mmol/L (4-12); Aspartate Amino Transferase 19 U/L (14-36); Bilirubin,Total 0.3 mg/dL (0.2-1.3); Blood Urea Nitrogen 26 mg/dL (7-17); Calcium 7.7 mg/dL (8.4-10.2); Carbon Dioxide 29 mmol/L (22-30); Chloride 101 mmol/L (98-107); Estimated CRCL calculation 49 ml/min; Estimated Glomerular Filt Rate > 60; Glucose 111 mg/dL (65-110); Magnesium 1.9 mg/dL (1.6-2.3); Potassium 3.9 mmol/L (3.4-5.0); Sodium 135 mmol/L (137-145); Total Protein 6.7 g/dL (6.3-8.2)
[2025-10-09] MEDS: METOCLOPRAMIDE HCL 5 MG TABLET PO ×2 (06:25→17:34)
[2025-10-09] MEDS: CENTRAL LINE FLUSH 10 ML IV PUSH ×3 (06:25→22:33)
--- NOTE | 2025-10-09 06:33 | P.CDI_ITS ---
CDI Query Clarification Request BMI: 23.9 Nutritional Diagnostic Statement: Please refer to the comprehensive nutrition assessment for further information. If you agree with diagnosis of Severe Protein Calorie Malnutrition as related to inadequate protein energy intake with increased protein-energy needs in setting of acute disease (pneumonia) as evidenced by minimal oral intake <75% in 7 days; significant weight loss of 7 ibs (5%) 2.5 weeks; moderate muscle wasting (temporalis, clavicle) and moderate subcutaneous fat loss (orbital fat pads). Please specify severity if known: * Mild * Moderate * Severe * Other/Unknown <Malathi Velarde RN - Last Filed: 10/09/25 06:34> Clarified Diagnosis Clarified Diagnosis: Agree with diagnosis of severe protein calorie malnutrition Consult glassware finisher <Joon Tijerina PA-C - Last Filed: 10/09/25 08:02>
--- NOTE | 2025-10-09 07:48 | P.PNIM_ITS ---
Progress Note: A&P Assessment and Plan (1) Pneumonia: Qualifiers: Laterality: bilateral Lung location: lower lobe of lung Pneumonia type: due to unspecified organism Qualified Code(s): J18.9 - Pneumonia, unspecified organism Code(s): J18.9 - Pneumonia, unspecified organism Status: Acute Assessment and Plan: * according that chest x-ray and CT which shows cardiomegaly and pulmonary congestion. Pneumonia is least slightly. However the patient was given antibiotics outpatient. The patient was placed on IV Levaquin. Please wean off of antibiotic when feasible. * WBC wnl * sputum and blood cultures pending * the patient is complaining of weakness. She is wheelchair dependent * PT OT evaluation * Blood cultures pending * Continue to wean O2 supplementation (2) Congestive heart failure: Code(s): I50.9 - Heart failure, unspecified Status: Acute Assessment and Plan: * Heart failure with preserved ejection fraction, hyperdynamic LVEF and grade 1 diastolic dysfunction per echocardiogram last month. * Hydrochlorothiazide stopped, IV furosemide started * Swelling continues to improve (3) Hypertension: Qualifiers: Hypertension type: primary hypertension Qualified Code(s): I10 - Essential (primary) hypertension Code(s): I10 - Essential (primary) hypertension Status: Acute Assessment and Plan: * continue with metoprolol. * Current BP 131/61 (4) Hyperlipidemia: Code(s): E78.5 - Hyperlipidemia, unspecified Status: Acute Assessment and Plan: * Not on statins (5) Rheumatoid arthritis: Qualifiers: Rheumatoid arthritis location: unspecified site Rheumatoid factor presence: unspecified presence Qualified Code(s): M06.9 - Rheumatoid arthritis, unspecified Code(s): M06.9 - Rheumatoid arthritis, unspecified Status: Acute Assessment and Plan: * continue with her home medications of prednisone, Lyrica, and tramadol (6) Severe protein-calorie malnutrition: Code(s): E43 - Unspecified severe protein-calorie malnutrition Status: Acute Assessment and Plan: * Agree with diagnosis of severe protein calorie malnutrition * Consult lead quality technician Plan 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 H&H is stable at 8.5 and 27.0. The patient has a left upper chest Port-A-Cath which was accessed and is working well. Subjective Date/time seen: 10/09/25 07:48 Interval history: This is a 75-year-old female patient who is admitted to the hospital for hypoxia and pneumonia. Patient previously seen in the emergency department on 10/05 and diagnosed with bilateral pneumonia returning back to the emergency department on 10/07 with continued difficulty breathing and new oxygen demand/hypoxia. Patient was placed on oxygen 1-2 liters/minute and initiated on levofloxacin 10/09/2025 Patient sitting comfortably in bed at time of examination. Denies any chest pain, shortness of breath, nausea/vomiting or abdominal pain. Remains on O2 supplementation, however has been weaned down to 1 L nasal cannula. Remains afebrile without leukocytosis. Blood cultures still pending. No major electrolyte abnormalities. Review of Systems Review of Systems: Patient denies chest pain except when she coughs, denies fever chills, denies nausea or vomiting, denies difficulties urinating or passing bowel movements. All systems reviewed & are unremarkable except as noted in HPI and below Constitutional: Constitutional: Reports as per HPI and Reports no additional constitutional complaints Eyes: Eyes: Reports as per HPI and Reports no additional eye complaints ENT: Reports system reviewed and no additional complaints, except as documented and Reports Normal hearing present Cardiovascular: Cardiovascular: Reports no additional cardiovascular complaints Respiratory: Respiratory: Reports as per HPI and Reports no additional respiratory complaints Gastrointestinal: Gastrointestinal: Reports as per HPI and Reports no additional gastrointestinal complaints Genitourinary: Genitourinary: Reports no additional female genitourinary complaints Musculoskeletal: Musculoskeletal: Reports no additional musculoskeletal complaints Integumentary/Breasts: Skin/Breast: Reports system reviewed and no additional complaints, except as docu Neurologic: Reports system reviewed and no additional complaints, except as documented and Reports Normal hearing present Psychiatric: Psychiatric: Reports no additional psychiatric complaints and Reports as per HPI Hematologic/Lymphatic: Hematologic/Lymphatic: Reports no additional hematologic/lymphatic complaints Allergic/Immunologic: Allergic/Immunologic: Reports no additional allergic/immunologic complaints Exam Narrative: GENERAL: Appears with mild shortness of breath at rest and with talking, speaks very softly HEAD: Normocephalic, atraumatic. ENT:? Mucous membranes moist. CHEST: Mildly diminished lung sounds throughout, minimally dyspneic per observation. Supplemental oxygen in place HEART: Regular rate and rhythm. ? Normal peripheral pulses. ABDOMEN: Soft, nontender, nondistended. EXTREMITIES: Improving bilateral lower extremity edema, right knee swollen with effusion and tender to the touch. SKIN: Warm dry normal color NEURO: Alert and oriented x3. 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 PSYCH: Normal mood and affect Const: General: cooperative, comfortable, no acute distress, well developed, awake, Physically active, average body habitus and well nourished Nutritional Appearance: average body habitus and well nourished Orientatio n/consciousness: oriented to person, oriented to place, oriented to time and patient oriented x3 Limitations: no limitations HENMT: Head: normal to inspection, No palpable skull fracture present, normocephalic, atraumatic and abrasion Ears: hearing grossly normal bilaterally and external ears normal Face/Nose/Sinus: Normal external nose present Eyes: General: appearance normal, both eyes and all related structures Alignment and Position: alignment normal Periorbital: periorbital findings normal Eyelids: eyelids normal Conjunctivae: conjunctivae normal EOM: EOMs intact bilaterally Neck: Neck: normal visual inspection and full ROM Chest: Chest palpation & inspection: normal inspection of the chest Resp: Effort & Inspection: normal respiratory effort Auscultation: clear to auscultation bilaterally Cardio: Palpation: normal PMI Rate: regular rate Rhythm: regular rhythm Heart sounds: S1 normal heart sound present and S2 normal heart sound present Peripheral pulses: Peripheral pulses 2+ throughout GI: Inspection: normal to inspection : General: Yes no CVA tenderness Back/Spine/Pelvis: Back: no CVA tenderness Cervical Spine: cervical ROM normal Skin: General skin exam: normal color Lesions: no lesions Rashes: no rashes Trauma: no lacerations or abrasions Wounds: no wounds Hair: normal Nails: normal Neuro: General: oriented to person, oriented to place, oriented to time and patient oriented x3 Cranial nerves: Yes Normal hearing present Cognition (Neuro): normal cognition Speech: normal speech Motor exam (neuro): 5/5 motor strength present throughout Sensory Exam: normal sensation Extrem: General: normal to inspection Right upper extremity: normal to inspection and shoulder/upper arm Left upper extremity: normal to inspection and shoulder/upper arm Right lower extremity: normal to inspection Left lower extremity: normal to inspection Psych: Appearance: grossly normal Mental Status: mental status grossly normal Speech and movement: Normal speech and movement present Affect: normal affect Attitude: cooperative Thought process: Normal thought process present Insight: Good insight present (Psych) Judgement: Good judgement present (Psych) Objective Data Vital Signs Vital Signs: Vital Signs - 24 hr 10/08/25 09:02 10/08/25 09:20 10/08/25 13:27 Temperature Pulse Rate 67 Respiratory Rate Blood Pressure Pulse Oximetry 98 Oxygen Delivery Nasal Cannula Nasal Cannula Oxygen Flow Rate 2 1 10/08/25 15:32 10/08/25 20:00 10/08/25 21:07 Temperature 97.0 F L 98.5 F Pulse Rate 72 65 Respiratory Rate 18 16 Blood Pressure 134/77 125/65 Pulse Oximetry 100 100 100 Oxygen Delivery Nasal Cannula Oxygen Flow Rate 2 10/09/25 05:24 Temperature 97.9 F Pulse Rate 69 Respiratory Rate 16 Blood Pressure 131/61 Pulse Oximetry 98 Oxygen Delivery Oxygen Flow Rate Intake/Output Intake/Output: Intake & Output 10/06/25 10/07/25 10/08/25 10/09/25 23:59 23:59 23:59 23:59 Intake Total 860 350 Output Total 250 1300 300 Balance -250 -440 50 Meds/Results Medications: Active Medications Generic Name Dose Route Start Last Admin Trade Name Freq PRN Reason Stop Dose Admin Aspirin 81 mg 10/08/25 08:00 10/08/25 09:00 Aspirin 81 Mg Chewable Tablet PO 81 mg DAILY@0800 [facility] Administration Bisacodyl 10 mg 10/08/25 01:50 Bisacodyl 5 Mg Tablet Ec PO QAM PRN Constipation Clopidogrel Bisulfate 75 mg 10/08/25 09:00 10/08/25 09:01 Clopidogrel Bisulfate 75 Mg Tablet PO 75 mg QAM MIROSLAVA Administration Ferrous Sulfate 325 mg 10/08/25 08:00 10/08/25 17:42 Ferrous Sulfate 325 Mg Tablet PO 325 mg BIDWM MIROSLAVA Administration Furosemide 40 mg 10/08/25 09:00 10/08/25 09:03 Furosemide Inj 40 Mg/4 Ml Vial IV PUSH 40 mg DAILY [facility] Administration Heparin Sodium (Beef Lung) 50 units 10/08/25 09:00 10/08/25 09:03 Heparin Flush 50 Units/5 Ml Syringe IV PUSH 50 units QAM MIROSLAVA Administration Heparin Sodium (Beef Lung) 50 units 10/07/25 23:18 10/08/25 01:15 Heparin Flush 50 Units/5 Ml Syringe IV PUSH 50 units PRN PRN Administration after intermittent infusion Heparin Sodium (Beef Lung) 50 units 10/07/25 23:18 10/09/25 06:25 Heparin Flush 50 Units/5 Ml Syringe IV PUSH 50 units PRN PRN Administration after blood draws Heparin Sodium (Porcine) 500 units 10/07/25 23:18 Heparin Sodium Lock Flush 500 Units/5 Ml Syringe IV PUSH PRN PRN see comments below Levofloxacin/Dextrose 750 mg in 150 mls @ 100 mls/hr 10/08/25 23:00 10/09/25 00:34 Levaquin 750 Mg/D5w 150 Ml IVPB Infused Q24H MIROSLAVA Infusion Menthol/Methyl Salicylate 1 applic 10/08/25 01:50 Menthol 10% / Methyl Salicylate 15% 57 Gm Tube TOPICAL BID PRN muscle pain Metoclopramide HCl 5 mg 10/08/25 06:30 10/09/25 06:25 Metoclopramide Hcl 5 Mg Tablet PO 5 mg BIDAC MIROSLAVA Administration Metoprolol Succinate 25 mg 10/08/25 09:00 10/08/25 09:02 Metoprolol Succinate Ext Rel 25 Mg Tabcr PO 25 mg QAM MIROSLAVA Administration Pantoprazole Sodium 40 mg 10/08/25 09:00 10/08/25 09:02 Pantoprazole 40 Mg Tablet PO 40 mg DAILY [facility] Administration Polyethylene Glycol 17 gm 10/08/25 09:00 10/08/25 09:03 Polyethylene Glycol 3350 17 Gm Powd.Pack PO Not Given DAILY [facility] Prednisone 10 mg 10/08/25 08:00 10/08/25 09:02 Prednisone 10 Mg Tablet PO 10 mg DAILY@0800 [facility] Administration Pregabalin 50 mg 10/08/25 09:00 10/08/25 17:42 Pregabalin (*Crx) 50 Mg Capsule PO 50 mg BID [facility]IROSLAVA Administration Senna 8.6 mg 10/08/25 21:00 10/08/25 20:56 Sennosides 8.6 Mg Tablet PO 8.6 mg HS MIROSLAVA Administration Sodium Chloride 10 ml 10/08/25 06:00 10/09/25 06:25 Central Line Flush IV PUSH 10 ml Q8HR MIROSLAVA Administration Tramadol HCl 50 mg 10/08/25 01:50 Tramadol Hcl (*Crx) 50 Mg Tablet PO Q12H PRN Pain 4-6 Radiology Results: ITS Impressions Chest X-Ray 10/07/25 19:13 IMPRESSION: 1. Cardiomegaly, severe atherosclerotic aorta and mild congestive changes of lungs with small bilateral pleural effusions. Abdomen/Pelvis CT 10/07/25 20:32 IMPRESSION: 1. Labs Labs: Laboratory Results - last 24 hr 10/09/25 05:08 WBC 10.0 RBC 2.57 L Hgb 8.4 L Hct 26.3 L MCV 102.3 H MCH 32.7 MCHC 31.9 L RDW 15.7 H Plt Count 346 MPV 9.3 Immature Gran % (Auto) 6.6 H Neut % (Auto) 50.2 Lymph % (Auto) 30.9 [place] % (Auto) 7.2 Eos % (Auto) 4.4 Baso % (Auto) 0.7 Lymph # (Auto) 3.10 [place] # (Auto) 0.7 H Eos # (Auto) 0.4 H Baso # (Auto) 0.1 Abs Immat Gran (auto) 0.66 H Absolute Neuts (auto) 5.1 Absolute Nucleated RBC 0.040 H Nucleated RBC % 0.4 H Sodium 135 L Potassium 3.9 Chloride 101 Carbon Dioxide 29 Anion Gap 5 BUN 26 H D Creatinine 0.78 Estim Creat Clear Calc 49 Estimated GFR > 60 Glucose 111 H Calcium 7.7 L Magnesium 1.9 Total Bilirubin 0.3 AST 19 ALT 11 Alkaline Phosphatase 79 Total Protein 6.7 Albumin 2.7 L Quality VTE Prophylaxis VTE prophylaxis: mechanical ordered
[2025-10-09 09:00] VITALS: PULSE 69; O2SAT 98
[2025-10-09] MEDS: PREGABALIN (*CRX) 50 MG CAPSULE PO ×2 (09:00→17:34)
[2025-10-09] MEDS: ASPIRIN 81 MG CHEWABLE TABLET PO (09:00)
[2025-10-09] MEDS: METOPROLOL SUCCINATE EXT REL 25 MG TABCR PO (09:00)
[2025-10-09] MEDS: FERROUS SULFATE 325 MG TABLET PO ×2 (09:00→17:34)
[2025-10-09] MEDS: CLOPIDOGREL BISULFATE 75 MG TABLET PO (09:00)
[2025-10-09] MEDS: PANTOPRAZOLE 40 MG TABLET PO (09:01)
[2025-10-09] MEDS: FUROSEMIDE INJ 40 MG/4 ML VIAL IV PUSH (09:01)
[2025-10-09 14:00] VITALS: BP 140/68; PULSE 78; RESP 20; TEMP 36.3; O2SAT 98
[2025-10-09 21:45] VITALS: BP 132/67; PULSE 75; RESP 16; TEMP 36.4; O2SAT 100
[2025-10-09] MEDS: levoFLOXacin 750 MG/D5W 150 ML 750 MG/150 ML BAG 100 MG IVPB (22:32)
[2025-10-09] MEDS: SENNOSIDES 8.6 MG TABLET PO (22:32)
[2025-10-10] MEDS: CENTRAL LINE FLUSH 10 ML IV PUSH ×3 (05:31→21:58)
[2025-10-10 05:42] LABS: Hematocrit 27.1 % (37.0-47.0); Hemoglobin 8.6 g/dL (12.0-15.0); Immature Granulocyte Percent A 10.9 % (0-0.5); Lymphocytes Absolute Auto 3.27 K/mm3 (0.9-3.2); Mean Corpuscular HGB Conc 31.7 g/dl (32-36); Mean Corpuscular Hemoglobin 32.5 pg (26-34); Mean Corpuscular Volume 102.3 fl (80-100); Nucleated Red Blood Cells Absolute Auto 0.040 K/mm3 (0.0-0.012); Nucleated Red Blood Cells Perc 0.3 % (0.0-0.2); Platelet Count Result 406 k/mm3 (150-375); Red Blood Count 2.65 M/mm3 (4.2-5.4); White Blood Count 12.4 K/mm3 (4.5-10.0)
[2025-10-10 06:00] VITALS: BP 137/72; PULSE 69; RESP 16; TEMP 36.6; O2SAT 96
[2025-10-10 06:07] LABS: Alanine Aminotransferase 13 U/L (6-35); Albumin Level 2.8 g/dL (3.5-5.1); Alkaline Phosphatase 75 U/L (38-126); Anion Gap 4 mmol/L (4-12); Aspartate Amino Transferase 42 U/L (14-36); Bilirubin,Total 0.3 mg/dL (0.2-1.3); Blood Urea Nitrogen 31 mg/dL (7-17); Calcium 8.1 mg/dL (8.4-10.2); Carbon Dioxide 28 mmol/L (22-30); Chloride 103 mmol/L (98-107); Estimated CRCL calculation 49 ml/min; Estimated Glomerular Filt Rate > 60; Glucose 102 mg/dL (65-110); Magnesium 1.8 mg/dL (1.6-2.3); Potassium 4.0 mmol/L (3.4-5.0); Sodium 135 mmol/L (137-145); Total Protein 6.9 g/dL (6.3-8.2)
[2025-10-10] MEDS: METOCLOPRAMIDE HCL 5 MG TABLET PO ×2 (06:16→17:14)
[2025-10-10 06:26] LABS: Anisocytosis 1+; Hypochromasia 1+; Ovalocytes Occasional; Polychromasia 1+; Schistocytes Occasional
--- NOTE | 2025-10-10 07:13 | P.PNIM_ITS ---
Progress Note: A&P Assessment and Plan (1) Pneumonia: Qualifiers: Laterality: bilateral Lung location: lower lobe of lung Pneumonia type: due to unspecified organism Qualified Code(s): J18.9 - Pneumonia, unspecified organism Code(s): J18.9 - Pneumonia, unspecified organism Status: Acute Assessment and Plan: * according that chest x-ray and CT which shows cardiomegaly and pulmonary congestion. Pneumonia is least slightly. However the patient was given antibiotics outpatient. The patient was placed on IV Levaquin. Please wean off of antibiotic when feasible. * WBC wnl * sputum and blood cultures pending * the patient is complaining of weakness. She is wheelchair dependent * PT OT evaluation * Blood cultures pending * Weaned off o2 supplementation * O2 sat @ 98% (2) Congestive heart failure: Code(s): I50.9 - Heart failure, unspecified Status: Acute Assessment and Plan: * Heart failure with preserved ejection fraction, hyperdynamic LVEF and grade 1 diastolic dysfunction per echocardiogram last month. * Hydrochlorothiazide stopped, IV furosemide started * Swelling continues to improve (3) Joint swelling: Code(s): M25.40 - Effusion, unspecified joint Status: Acute Assessment and Plan: * Right knee swelling noted, previous episode of septic joint noted in records * Patient reports she was supposed to get another drainage completed but never had orthopedic follow-up since she has been in assisted facility. * Orthopedics consulted (4) Hypertension: Qualifiers: Hypertension type: primary hypertension Qualified Code(s): I10 - Essential (primary) hypertension Code(s): I10 - Essential (primary) hypertension Status: Acute Assessment and Plan: * continue with metoprolol * Current BP 134/74 (5) Hyperlipidemia: Code(s): E78.5 - Hyperlipidemia, unspecified Status: Acute Assessment and Plan: * Not on statins (6) Rheumatoid arthritis: Qualifiers: Rheumatoid arthritis location: unspecified site Rheumatoid factor presence: unspecified presence Qualified Code(s): M06.9 - Rheumatoid arthritis, unspecified Code(s): M06.9 - Rheumatoid arthritis, unspecified Status: Acute Assessment and Plan: * continue with her home medications of prednisone, Lyrica, and tramadol (7) Severe protein-calorie malnutrition: Code(s): E43 - Unspecified severe protein-calorie malnutrition Status: Acute Assessment and Plan: * Agree with diagnosis of severe protein calorie malnutrition * Consult obstetric assistant Plan 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 H&H is stable at 8.5 and 27.0. The patient has a left upper chest Port-A-Cath which was accessed and is working well. Subjective Date/time seen: 10/10/25 07:13 Interval history: This is a 75-year-old female patient who is admitted to the hospital for hypoxia and pneumonia. Patient previously seen in the emergency department on 10/05 and diagnosed with bilateral pneumonia returning back to the emergency department on 10/07 with continued difficulty breathing and new oxygen demand/hypoxia. Patient was placed on oxygen 1-2 liters/minute and initiated on levofloxacin 10/10/2025 Patient sitting comfortably in bed at time of examination. Remains afebrile. Lung sounds clear to auscultation. No major electrolyte abnormalities. Will consult Orthopedics as she was supposed to have a right knee effusion drained but was unable to as she went emergency department. This consult is pending. O2 supplementation has been weaned to room air, O2 % is at 98%. Likely can be dis charged tomorrow. Review of Systems Review of Systems: Patient denies chest pain except when she coughs, denies fever chills, denies nausea or vomiting, denies difficulties urinating or passing bowel movements. All systems reviewed & are unremarkable except as noted in HPI and below Constitutional: Constitutional: Reports as per HPI and Reports no additional constitutional complaints Eyes: Eyes: Reports as per HPI and Reports no additional eye complaints ENT: Reports system reviewed and no additional complaints, except as documented and Reports Normal hearing present Cardiovascular: Cardiovascular: Reports no additional cardiovascular complaints Respiratory: Respiratory: Reports as per HPI and Reports no additional respiratory complaints Gastrointestinal: Gastrointestinal: Reports as per HPI and Reports no additional gastrointestinal complaints Genitourinary: Genitourinary: Reports no additional female genitourinary complaints Musculoskeletal: Musculoskeletal: Reports no additional musculoskeletal complaints Integumentary/Breasts: Skin/Breast: Reports system reviewed and no additional complaints, except as docu Neurologic: Reports system reviewed and no additional complaints, except as documented and Reports Normal hearing present Psychiatric: Psychiatric: Reports no additional psychiatric complaints and Reports as per HPI Hematologic/Lymphatic: Hematologic/Lymphatic: Reports no additional hematologic/lymphatic complaints Allergic/Immunologic: Allergic/Immunologic: Reports no additional allergic/immunologic complaints Exam Narrative: GENERAL: Appears with mild shortness of breath at rest and with talking, speaks very softly HEAD: Normocephalic, atraumatic. ENT:? Mucous membranes moist. CHEST: Mildly diminished lung sounds throughout, minimally dyspneic per observation. Supplemental oxygen in place HEART: Regular rate and rhythm. ? Normal peripheral pulses. ABDOMEN: Soft, nontender, nondistended. EXTREMITIES: Improving bilateral lower extremity edema, right knee swollen with effusion and tender to the touch. SKIN: Warm dry normal color NEURO: Alert and oriented x3. 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 PSYCH: Normal mood and affect Const: General: cooperative, comfortable, no acute distress, well developed, awake, Physically active, average body habitus and well nourished Nutritional Appearance: average body habitus and well nourished Orientation/consciou sness: oriented to person, oriented to place, oriented to time and patient oriented x3 Limitations: no limitations HENMT: Head: normal to inspection, No palpable skull fracture present, normocephalic, atraumatic and abrasion Ears: hearing grossly normal bilaterally and external ears normal Face/Nose/Sinus: Normal external nose present Eyes: General: appearance normal, both eyes and all related structures Alignment and Position: alignment normal Periorbital: periorbital findings normal Eyelids: eyelids normal Conjunctivae: conjunctivae normal EOM: EOMs intact bilaterally Neck: Neck: normal visual inspection and full ROM Chest: Chest palpation & inspection: normal inspection of the chest Resp: Effort & Inspection: normal respiratory effort Auscultation: clear to auscultation bilaterally Cardio: Palpation: normal PMI Rate: regular rate Rhythm: regular rhythm Heart sounds: S1 normal heart sound present and S2 normal heart sound present Peripheral pulses: Peripheral pulses 2+ throughout GI: Inspection: normal to inspection : General: Yes no CVA tenderness Back/Spine/Pelvis: Back: no CVA tenderness Cervical Spine: cervical ROM normal Skin: General skin exam: normal color Lesions: no lesions Rashes: no rashes Trauma: no lacerations or abrasions Wounds: no wounds Hair: normal Nails: normal Neuro: General: oriented to person, oriented to place, oriented to time and patient oriented x3 Cranial nerves: Yes Normal hearing present Cognition (Neuro): normal cognition Speech: normal speech Motor exam (neuro): 5/5 motor strength present throughout Sensory Exam: normal sensation Extrem: General: normal to inspection Right upper extremity: normal to inspection and shoulder/upper arm Left upper extremity: normal to inspection and shoulder/upper arm Right lower extremity: normal to inspection Left lower extremity: normal to inspection Psych: Appearance: grossly normal Mental Status: mental status grossly normal Speech and movement: Normal speech and movement present Affect: normal affect Attitude: cooperative Thought process: Normal thought process present Insight: Good insight present (Psych) Judgement: Good judgement present (Psych) Objective Data Vital Signs Vital Signs: Vital Signs - 24 hr 10/09/25 09:00 10/09/25 09:00 10/09/25 11:25 Temperature Pulse Rate 69 Respiratory Rate Blood Pressure Pulse Oximetry 98 Oxygen Delivery Nasal Cannula Nasal Cannula Oxygen Flow Rate 1 1 10/09/25 14:00 10/09/25 21:45 10/10/25 06:00 Temperature 97.4 F L 97.6 F 97.9 F Pulse Rate 78 75 69 Respiratory Rate 20 16 16 Blood Pressure 140/68 132/67 137/72 Pulse Oximetry 98 100 96 Oxygen Delivery Oxygen Flow Rate Intake/Output Intake/Output: Intake & Output 10/07/25 10/08/25 10/09/25 10/10/25 23:59 23:59 23:59 23:59 Intake Total 860 1360 200 Output Total 250 1300 1600 200 Balance -250 -440 -240 0 Meds/Results Medications: Active Medications Generic Name Dose Route Start Last Admin Trade Name Freq PRN Reason Stop Dose Admin Aspirin 81 mg 10/08/25 08:00 10/09/25 09:00 Aspirin 81 Mg Chewable Tablet PO 81 mg DAILY@0800 MIROSLAVA Administration Bisacodyl 10 mg 10/08/25 01:50 Bisacodyl 5 Mg Tablet Ec PO QAM PRN Constipation Clopidogrel Bisulfate 75 mg 10/08/25 09:00 10/09/25 09:00 Clopidogrel Bisulfate 75 Mg Tablet PO 75 mg QAM MIROSLAVA Administration Ferrous Sulfate 325 mg 10/08/25 08:00 10/09/25 17:34 Ferrous Sulfate 325 Mg Tablet PO 325 mg BIDWM MIROSLAVA Administration Furosemide 40 mg 10/08/25 09:00 10/09/25 09:01 Furosemide Inj 40 Mg/4 Ml Vial IV PUSH 40 mg DAILY MIROSLAVA Administration Heparin Sodium (Beef Lung) 50 units 10/08/25 09:00 10/09/25 09:02 Heparin Flush 50 Units/5 Ml Syringe IV PUSH 50 units QAM MIROSLAVA Administration Heparin Sodium (Beef Lung) 50 units 10/07/25 23:18 10/08/25 01:15 Heparin Flush 50 Units/5 Ml Syringe IV PUSH 50 units PRN PRN Administration after intermittent infusion Heparin Sodium (Beef Lung) 50 units 10/07/25 23:18 10/10/25 05:32 Heparin Flush 50 Units/5 Ml Syringe IV PUSH 50 units PRN PRN Administration after blood draws Heparin Sodium (Porcine) 500 units 10/07/25 23:18 Heparin Sodium Lock Flush 500 Units/5 Ml Syringe IV PUSH PRN PRN see comments below Levofloxacin/Dextrose 750 mg in 150 mls @ 100 mls/hr 10/08/25 23:00 10/09/25 22:32 Levaquin 750 Mg/D5w 150 Ml IVPB 100 mls/hr Q24H MIROSLAVA Administration Menthol/Methyl Salicylate 1 applic 10/08/25 01:50 Menthol 10% / Methyl Salicylate 15% 57 Gm Tube TOPICAL BID PRN muscle pain Metoclopramide HCl 5 mg 10/08/25 06:30 10/10/25 06:16 Metoclopramide Hcl 5 Mg Tablet PO 5 mg BIDAC MIROSLAVA Administration Metoprolol Succinate 25 mg 10/08/25 09:00 10/09/25 09:00 Metoprolol Succinate Ext Rel 25 Mg Tabcr PO 25 mg QAM MIROSLAVA Administration Pantoprazole Sodium 40 mg 10/08/25 09:00 10/09/25 09:01 Pantoprazole 40 Mg Tablet PO 40 mg DAILY MIROSLAVA Administration Polyethylene Glycol 17 gm 10/08/25 09:00 10/09/25 08:59 Polyethylene Glycol 3350 17 Gm Powd.Pack PO Not Given DAILY MIROSLAVA Prednisone 10 mg 10/08/25 08:00 10/09/25 09:01 Prednisone 10 Mg Tablet PO 10 mg DAILY@0800 MIROSLAVA Administration Pregabalin 50 mg 10/08/25 09:00 10/09/25 17:34 Pregabalin (*Crx) 50 Mg Capsule PO 50 mg BID MIROSLAVA Administration Senna 8.6 mg 10/08/25 21:00 10/09/25 22:32 Sennosides 8.6 Mg Tablet PO 8.6 mg HS MIROSLAVA Administration Sodium Chloride 10 ml 10/08/25 06:00 10/10/25 05:31 Central Line Flush IV PUSH 10 ml Q8HR MIROSLAVA Administration Tramadol HCl 50 mg 10/08/25 01:50 Tramadol Hcl (*Crx) 50 Mg Tablet PO Q12H PRN Pain 4-6 Radiology Results: ITS Impressions Chest X-Ray 10/07/25 19:13 IMPRESSION: 1. Cardiomegaly, severe atherosclerotic aorta and mild congestive changes of lungs with small bilateral pleural effusions. Abdomen/Pelvis CT 10/07/25 20:32 IMPRESSION: 1. Labs Labs: Laboratory Results - last 24 hr 10/10/25 05:29 WBC 12.4 H RBC 2.65 L Hgb 8.6 L Hct 27.1 L MCV 102.3 H MCH 32.5 MCHC 31.7 L RDW 16.0 H Plt Count 406 H MPV 9.2 Immature Gran % (Auto) 10.9 H Neut % (Auto) 53.5 Lymph % (Auto) 26.4 Towner % (Auto) 5.5 Eos % (Auto) 2.7 Baso % (Auto) 1.0 Lymph # (Auto) 3.27 H Towner # (Auto) 0.7 H Eos # (Auto) 0.3 Baso # (Auto) 0.1 Abs Immat Gran (auto) 1.35 H Absolute Neuts (auto) 6.6 Absolute Nucleated RBC 0.040 H Band Neutrophils % Not Reportable Nucleated RBC % 0.3 H Platelet Estimate Increased Polychromasia 1+ Hypochromasia 1+ Anisocytosis 1+ Ovalocytes Occasional Schistocytes Occasional Sodium 135 L Potassium 4.0 Chloride 103 Carbon Dioxide 28 Anion Gap 4 BUN 31 H Creatinine 0.77 Estim Creat Clear Calc 49 Estimated GFR > 60 Glucose 102 Calcium 8.1 L Magnesium 1.8 Total Bilirubin 0.3 AST 42 H ALT 13 Alkaline Phosphatase 75 Total Protein 6.9 Albumin 2.8 L Quality VTE Prophylaxis VTE prophylaxis: mechanical ordered
[2025-10-10 09:38] VITALS: PULSE 74
[2025-10-10] MEDS: METOPROLOL SUCCINATE EXT REL 25 MG TABCR PO (09:38)
[2025-10-10] MEDS: FUROSEMIDE 40 MG TABLET PO (09:39)
[2025-10-10] MEDS: PANTOPRAZOLE 40 MG TABLET PO (09:39)
[2025-10-10] MEDS: PREGABALIN (*CRX) 50 MG CAPSULE PO ×2 (09:39→17:14)
[2025-10-10] MEDS: CLOPIDOGREL BISULFATE 75 MG TABLET PO (09:39)
[2025-10-10] MEDS: ASPIRIN 81 MG CHEWABLE TABLET PO (09:39)
[2025-10-10 10:50] VITALS: PULSE 69; RESP 16; O2SAT 96
--- NOTE | 2025-10-10 11:30 | PCNFU ---
Nutrition Follow-Up Complete: Severe Protein Calorie Malnutrition as related to inadequate protein energy intake with increased protein-energy needs in setting of acute disease (pneumonia) as evidenced by minimal oral intake <75% in 7 days; significant weight loss of 7 ibs (5%) 2.5 weeks; moderate muscle wasting (temporalis, clavicle) and moderate subcutaneous fat loss (orbital fat pads). Meet estimated nutritional needs - Progressing with improved intake Goal: Pt current nutrition is Regular. Ensure Plus BID (350 kcal, 20 g protein) and nutritional ice cream BID (270 kcal, 9 g protein) Nutrition recommendation: No new recommendations. Continue current nutrition care plan and orders. Agree with orders Last recorded weight is 66 kg. Bowel Motility: +BM 10/08 Labs Reviewed: Hgb 8.6, Hct 27.1, Alb 2.8, Na 135, BUN 31 Meds Noted: Reglan, miralax, lasix, protonix Skin: No skin issues Additional Notes: Intakes improved 50-75%. COntinue with current orders. Will monitor weight, labs, skin, diet orders, meds every 5 days.
[2025-10-10 13:14] VITALS: BP 134/74; PULSE 64; RESP 16; TEMP 36.4; O2SAT 98
[2025-10-10 20:00] VITALS: PULSE 75; RESP 28; O2SAT 100
[2025-10-10 20:25] VITALS: BP 122/62; PULSE 75; RESP 28; TEMP 36.1; O2SAT 100
[2025-10-10] MEDS: SENNOSIDES 8.6 MG TABLET PO (21:58)
[2025-10-10] MEDS: levoFLOXacin 750 MG/D5W 150 ML 750 MG/150 ML BAG 100 MG IVPB (22:02)
[2025-10-11 04:35] VITALS: BP 153/72; PULSE 67; RESP 18; TEMP 36.6; O2SAT 97
[2025-10-11] MEDS: METOCLOPRAMIDE HCL 5 MG TABLET PO ×2 (06:09→16:26)
[2025-10-11] MEDS: CENTRAL LINE FLUSH 10 ML IV PUSH ×3 (06:09→21:14)
[2025-10-11 06:22] LABS: Hematocrit 27.7 % (37.0-47.0); Hemoglobin 8.7 g/dL (12.0-15.0); Mean Corpuscular HGB Conc 31.4 g/dl (32-36); Mean Corpuscular Hemoglobin 32.5 pg (26-34); Mean Corpuscular Volume 103.4 fl (80-100); Platelet Count Result 466 k/mm3 (150-375); Red Blood Count 2.68 M/mm3 (4.2-5.4); White Blood Count 18.2 K/mm3 (4.5-10.0)
[2025-10-11 06:43] LABS: Alanine Aminotransferase 16 U/L (6-35); Albumin Level 2.8 g/dL (3.5-5.1); Alkaline Phosphatase 75 U/L (38-126); Anion Gap 4 mmol/L (4-12); Aspartate Amino Transferase 32 U/L (14-36); Bilirubin,Total 0.3 mg/dL (0.2-1.3); Blood Urea Nitrogen 26 mg/dL (7-17); Calcium 8.4 mg/dL (8.4-10.2); Carbon Dioxide 28 mmol/L (22-30); Chloride 106 mmol/L (98-107); Estimated CRCL calculation 52 ml/min; Estimated Glomerular Filt Rate > 60; Glucose 92 mg/dL (65-110); Magnesium 1.8 mg/dL (1.6-2.3); Potassium 3.8 mmol/L (3.4-5.0); Sodium 138 mmol/L (137-145); Total Protein 6.9 g/dL (6.3-8.2)
[2025-10-11 06:55] LABS: Basophils Absolute Manual 0.36 K/mm3 (0.0-0.1); Basophils Percent Manual 2 % (0-1); Eosinophils Absolute Manual 1.09 K/mm3 (0.02-0.50); Eosinophils Percent Manual 6 % (0-4); Lymphocytes Absolute Manual 4.91 K/mm3 (1.1-4.5); Lymphocytes Percent Manual 27 % (18-44); Metamyelocytes Percent 7 %; Monocytes Absolute Manual 1.45 K/mm3 (0.1-0.90); Monocytes Percent Manual 8 % (3-9); Neutrophils Percent Manual 50 % (46-73); Smudge Cells PRESENT; Total Cells Counted 100
[2025-10-11 06:56] LABS: Basophilic Stippling Occasional; Hypochromasia 1+; Macrocytosis 1+ (NORMAL); Ovalocytes Occasional
[2025-10-11 06:57] LABS: Schistocytes None Seen
--- NOTE | 2025-10-11 07:08 | PM.IMPN ---
Progress Note: A&P Assessment and Plan (1) Pneumonia: Qualifiers: Laterality: bilateral Lung location: lower lobe of lung Pneumonia type: due to unspecified organism Qualified Code(s): J18.9 - Pneumonia, unspecified organism Code(s): J18.9 - Pneumonia, unspecified organism Status: Acute Assessment and Plan: according that chest x-ray and CT which shows cardiomegaly and pulmonary congestion. Pneumonia is least slightly. However the patient was given antibiotics outpatient. The patient was placed on IV Levaquin. Please wean off of antibiotic when feasible. WBC wnl sputum and blood cultures pending the patient is complaining of weakness. She is wheelchair dependent PT OT evaluation Blood cultures pending Weaned off o2 supplementation O2 sat @ 98% (2) Leukocytosis: Code(s): D72.829 - Elevated white blood cell count, unspecified Status: Acute Assessment and Plan: UA on 10/07 not concerning for infection Blood cultures on 10/07 no growth WBC 9.1 -> 10 -> 12.4 -> 18.2 Chronic steroid use, prednisone 10mg restarted on , concurrent with timing of rise of WBC Repeat CXR shows improving pneumonia Repeat UA w/ culture reflex to rule out UTI No SIRS criteria (3) Congestive heart failure: Code(s): I50.9 - Heart failure, unspecified Status: Acute Assessment and Plan: Heart failure with preserved ejection fraction, hyperdynamic LVEF and grade 1 diastolic dysfunction per echocardiogram last month. Hydrochlorothiazide stopped, IV furosemide started Swelling continues to improve (4) Joint swelling: Code(s): M25.40 - Effusion, unspecified joint Status: Acute Assessment and Plan: Right knee swelling noted, previous episode of septic joint noted in records Patient reports she was supposed to get another drainage completed but never had orthopedic follow-up since she has been in [facility] facility. Orthopedics consulted (5) Hypertension: Qualifiers: Hypertension type: primary hypertension Qualified Code(s): I10 - Essential (primary) hypertension Code(s): I10 - Essential (primary) hypertension Status: Acute Assessment and Plan: continue with metoprolol Current BP 134/74 (6) Hyperlipidemia: Code(s): E78.5 - Hyperlipidemia, unspecified Status: Acute Assessment and Plan: Not on statins (7) Rheumatoid arthritis: Qualifiers: Rheumatoid arthritis location: unspecified site Rheumatoid factor presence: unspecified presence Qualified Code(s): M06.9 - Rheumatoid arthritis, unspecified Code(s): M06.9 - Rheumatoid arthritis, unspecified Status: Acute Assessment and Plan: continue with her home medications of prednisone, Lyrica, and tramadol (8) Severe protein-calorie malnutrition: Code(s): E43 - Unspecified severe protein-calorie malnutrition Status: Acute Assessment and Plan: Agree with diagnosis of severe protein calorie malnutrition Consult asic engineer Plan 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 H&H is stable at 8.5 and 27.0. The patient has a left upper chest Port-A-Cath which was accessed and is working well. Subjective Date/time seen: 10/11/25 07:08 Interval history: This is a 75-year-old female patient who is admitted to the hospital for hypoxia and pneumonia. Patient previously seen in the emergency department on 10/05 and diagnosed with bilateral pneumonia returning back to the emergency department on 10/07 with continued difficulty breathing and new oxygen demand/hypoxia. Patient was placed on oxygen 1-2 liters/minute and initiated on levofloxacin 10/11/2025 Patient sitting comfortably at bedside during examination. States that she feels much better today. Leukocytosis continues to worsen, however. Repeat CXR shows improving but still present pneumonia, will repeat UA with culture if necessary. Pt is on chronic steroids which were restarted right before leukocytosis became present, and on previous admission she had significant leukocytosis in the high 20,000s. Likely stable, chronic leukocytosis due to steroid use but will continue to monitor until tomorrow. Otherwise vitals and blood work are stable. Review of Systems Review of Systems: Patient denies chest pain except when she coughs, denies fever chills, denies nausea or vomiting, denies difficulties urinating or passing bowel movements. All systems reviewed & are unremarkable except as noted in HPI and below Constitutional: Constitutional: Reports as per HPI and Reports no additional constitutional complaints Eyes: Eyes: Reports as per HPI and Reports no additional eye complaints ENT: Reports system reviewed and no additional complaints, except as documented and Reports Normal hearing present Cardiovascular: Cardiovascular: Reports no additional cardiovascular complaints Respiratory: Respiratory: Reports as per HPI and Reports no additional respiratory complaints Gastrointestinal: Gastrointestinal: Reports as per HPI and Reports no additional gastrointestinal complaints Genitourinary: Genitourinary: Reports no additional female genitourinary complaints Musculoskeletal: Musculoskeletal: Reports no additional musculoskeletal complaints Integumentary/Breasts: Skin/Breast: Reports system reviewed and no additional complaints, except as docu Neurologic: Reports system reviewed and no additional complaints, except as documented and Reports Normal hearing present Psychiatric: Psychiatric: Reports no additional psychiatric complaints and Reports as per HPI Hematologic/Lymphatic: Hematologic/Lymphatic: Reports no additional hematologic/lymphatic complaints Allergic/Immunologic: Allergic/Immunologic: Reports no additional allergic/immunologic complaints Exam Narrative: GENERAL: Appears with mild shortness of breath at rest and with talking, speaks very softly HEAD: Normocephalic, atraumatic. ENT:? Mucous membranes moist. CHEST: Mildly diminished lung sounds throughout, minimally dyspneic per observation. Supplemental oxygen in place HEART: Regular rate and rhythm. ? Normal peripheral pulses. ABDOMEN: Soft, nontender, nondistended. EXTREMITIES: Improving bilateral lower extremity edema, right knee swollen with effusion and tender to the touch. SKIN: Warm dry normal color NEURO: Alert and oriented x3. 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 PSYCH: Normal mood and affect Const: General: cooperative, comfortable, no acute distress, well developed, awake, Physically active, average body habitus and well nourished Nutritional Appearance: average body habitus and well nourished Orientation/consciousness: oriented to person, oriented to place, oriented to time and patient oriented x3 Limitations: no limitations HENMT: Head: normal to inspection, No palpable skull fracture present, normocephalic, atraumatic and abrasion Ears: hearing grossly normal bilaterally and external ears normal Face/Nose/Sinus: Normal external nose present Eyes: General: appearance normal, both eyes and all related structures Alignment and Position: alignment normal Periorbital: periorbital findings normal Eyelids: eyelids normal Conjunctivae: conjunctivae normal EOM: EOMs intact bilaterally Neck: Neck: normal visual inspection and full ROM Chest: Chest palpation & inspection: normal inspection of the chest Resp: Effort & Inspection: normal respiratory effort Auscultation: clear to auscultation bilaterally Cardio: Palpation: normal PMI Rate: regular rate Rhythm: regular rhythm Heart sounds: S1 normal heart sound present and S2 normal heart sound present Peripheral pulses: Peripheral pulses 2+ throughout GI: Inspection: normal to inspection : General: Yes no CVA tenderness Back/Spine/Pelvis: Back: no CVA tenderness Cervical Spine: cervical ROM normal Skin: General skin exam: normal color Lesions: no lesions Rashes: no rashes Trauma: no lacerations or abrasions Wounds: no wounds Hair: normal Nails: normal Neuro: General: oriented to person, oriented to place, oriented to time and patient oriented x3 Cranial nerves: Yes Normal hearing present Cognition (Neuro): normal cognition Speech: normal speech Motor exam (neuro): 5/5 motor strength present throughout Sensory Exam: normal sensation Extrem: General: normal to inspection Right upper extremity: normal to inspection and shoulder/upper arm Left upper extremity: normal to inspection and shoulder/upper arm Right lower extremity: normal to inspection Left lower extremity: normal to inspection Psych: Appearance: grossly normal Mental Status: mental status grossly normal Speech and movement: Normal speech and movement present Affect: normal affect Attitude: cooperative Thought process: Normal thought process present Insight: Good insight present (Psych) Judgement: Good judgement present (Psych) Objective Data Vital Signs Vital Signs: Vital Signs - 24 hr 10/10/25 09:38 10/10/25 09:40 10/10/25 10:50 Temperature Pulse Rate 74 69 Respiratory Rate 16 Blood Pressure Pulse Oximetry 96 Oxygen Delivery Room Air Nasal Cannula Oxygen Flow Rate 1 10/10/25 13:14 10/10/25 20:00 10/10/25 20:25 Temperature 97.6 F 97.0 F L Pulse Rate 64 75 75 Respiratory Rate 16 28 H 28 H Blood Pressure 134/74 122/62 Pulse Oximetry 98 100 100 Oxygen Delivery Nasal Cannula Oxygen Flow Rate 2 10/11/25 04:35 Temperature 97.9 F Pulse Rate 67 Respiratory Rate 18 Blood Pressure 153/72 H Pulse Oximetry 97 Oxygen Delivery Oxygen Flow Rate Intake/Output Intake/Output: Intake & Output 10/08/25 10/09/25 10/10/25 10/11/25 23:59 23:59 23:59 23:59 Intake Total 860 1360 1620 240 Output Total 1300 1600 600 250 Balance -440 -240 1020 -10 Meds/Results Medications: Active Medications Generic Name Dose Route Start Last Admin Trade Name Freq PRN Reason Stop Dose Admin Aspirin 81 mg 10/08/25 08:00 10/10/25 09:39 Aspirin 81 Mg Chewable Tablet PO 81 mg DAILY@0800 [facility] Administration Bisacodyl 10 mg 10/08/25 01:50 Bisacodyl 5 Mg Tablet Ec PO QAM PRN Constipation Clopidogrel Bisulfate 75 mg 10/08/25 09:00 10/10/25 09:39 Clopidogrel Bisulfate 75 Mg Tablet PO 75 mg QAM [facility] Administration Ferrous Sulfate 325 mg 10/08/25 08:00 10/10/25 17:14 Ferrous Sulfate 325 Mg Tablet PO Not Given BIDWM [facility]OS[facility] Furosemide 40 mg 10/10/25 09:00 10/10/25 09:39 Furosemide 40 Mg Tablet PO 40 mg DAILY [facility] Administration Heparin Sodium (Beef Lung) 50 units 10/08/25 09:00 10/10/25 09:39 Heparin Flush 50 Units/5 Ml Syringe IV PUSH 50 units QAM [facility] Administration Heparin Sodium (Beef Lung) 50 units 10/07/25 23:18 10/08/25 01:15 Heparin Flush 50 Units/5 Ml Syringe IV PUSH 50 units PRN PRN Administration after intermittent infusion Heparin Sodium (Beef Lung) 50 units 10/07/25 23:18 10/10/25 05:32 Heparin Flush 50 Units/5 Ml Syringe IV PUSH 50 units PRN PRN Administration after blood draws Heparin Sodium (Porcine) 500 units 10/07/25 23:18 Heparin Sodium Lock Flush 500 Units/5 Ml Syringe IV PUSH PRN PRN see comments below Levofloxacin/Dextrose 750 mg in 150 mls @ 100 mls/hr 10/08/25 23:00 10/10/25 22:02 Levaquin 750 Mg/D5w 150 Ml IVPB 100 mls/hr Q24H [facility] Administration Menthol/Methyl Salicylate 1 applic 10/08/25 01:50 Menthol 10% / Methyl Salicylate 15% 57 Gm Tube TOPICAL BID PRN muscle pain Metoclopramide HCl 5 mg 10/08/25 06:30 10/11/25 06:09 Metoclopramide Hcl 5 Mg Tablet PO 5 mg BIDAC [facility] Administration Metoprolol Succinate 25 mg 10/08/25 09:00 10/10/25 09:38 Metoprolol Succinate Ext Rel 25 Mg Tabcr PO 25 mg QAM [facility] Administration Pantoprazole Sodium 40 mg 10/08/25 09:00 10/10/25 09:39 Pantoprazole 40 Mg Tablet PO 40 mg DAILY [facility] Administration Polyethylene Glycol 17 gm 10/08/25 09:00 10/10/25 09:55 Polyethylene Glycol 3350 17 Gm Powd.Pack PO 17 gm DAILY [facility] Administration Prednisone 10 mg 10/08/25 08:00 10/10/25 09:39 Prednisone 10 Mg Tablet PO 10 mg DAILY@0800 [facility] Administration Pregabalin 50 mg 10/08/25 09:00 10/10/25 17:14 Pregabalin (*Crx) 50 Mg Capsule PO 50 mg BID [facility] Administration Senna 8.6 mg 10/08/25 21:00 10/10/25 21:58 Sennosides 8.6 Mg Tablet PO 8.6 mg HS [facility] Administration Sodium Chloride 10 ml 10/08/25 06:00 10/11/25 06:09 Central Line Flush IV PUSH 10 ml Q8HR [facility] Administration Tramadol HCl 50 mg 10/08/25 01:50 Tramadol Hcl (*Crx) 50 Mg Tablet PO Q12H PRN Pain 4-6 Radiology Results: ITS Impressions Chest X-Ray 10/07/25 19:13 IMPRESSION: 1. Cardiomegaly, severe atherosclerotic aorta and mild congestive changes of lungs with small bilateral pleural effusions. Abdomen/Pelvis CT 10/07/25 20:32 IMPRESSION: 1. Labs Labs: Laboratory Results - last 24 hr 10/11/25 06:08 WBC 18.2 H RBC 2.68 L Hgb 8.7 L Hct 27.7 L MCV 103.4 H MCH 32.5 MCHC 31.4 L RDW 16.2 H Plt Count 466 H MPV 9.1 Immature Gran % (Auto) Not Reportable Neut % (Auto) Not Reportable Lymph % (Auto) Not Reportable Bremer % (Auto) Not Reportable Eos % (Auto) Not Reportable Baso % (Auto) Not Reportable Lymph # (Auto) Not Reportable Bremer # (Auto) Not Reportable Eos # (Auto) Not Reportable Baso # (Auto) Not Reportable Abs Immat Gran (auto) Not Reportable Absolute Neuts (auto) Not Reportable Absolute Nucleated RBC Not Reportable Total Counted 100 Neutrophils % (Manual) 50 Band Neutrophils % Not Reportable Lymphocytes % (Manual) 27 Monocytes % (Manual) 8 Eosinophils % (Manual) 6 H Basophils % (Manual) 2 H Metamyelocytes % 7 Nucleated RBC % Not Reportable Abs Lymphs (Manual) 4.91 H Abs Monocytes (Manual) 1.45 H Absolute Eos (Manual) 1.09 H Abs Basophils (Manual) 0.36 H Smudge Cells Present Platelet Estimate Increased Hypochromasia 1+ Basophilic Stippling Occasional Macrocytosis 1+ Ovalocytes Occasional Schistocytes None seen Sodium 138 Potassium 3.8 Chloride 106 Carbon Dioxide 28 Anion Gap 4 BUN 26 H Creatinine 0.73 Estim Creat Clear Calc 52 Estimated GFR > 60 Glucose 92 Calcium 8.4 Magnesium 1.8 Total Bilirubin 0.3 AST 32 ALT 16 Alkaline Phosphatase 75 Total Protein 6.9 Albumin 2.8 L Quality VTE Prophylaxis VTE prophylaxis: mechanical ordered
[2025-10-11 09:03] VITALS: O2SAT 95
[2025-10-11] MEDS: ASPIRIN 81 MG CHEWABLE TABLET PO (10:08)
[2025-10-11] MEDS: CLOPIDOGREL BISULFATE 75 MG TABLET PO (10:08)
[2025-10-11] MEDS: FUROSEMIDE 40 MG TABLET PO (10:08)
[2025-10-11] MEDS: PREGABALIN (*CRX) 50 MG CAPSULE PO ×2 (10:09→16:26)
[2025-10-11] MEDS: PANTOPRAZOLE 40 MG TABLET PO (10:09)
[2025-10-11 10:12] VITALS: PULSE 72
[2025-10-11] MEDS: METOPROLOL SUCCINATE EXT REL 25 MG TABCR PO (10:12)
[2025-10-11 14:00] VITALS: BP 123/67; PULSE 74; RESP 16; TEMP 36.4; O2SAT 100
[2025-10-11 16:07] LABS: Add Urine Microscopic? NO; Appearance Urine Clear (Clear); Glucose Urine UA Negative (Negative); Leukocyte Esterase Ur Negative LEU/UL (Negative); Nitrate Urine Negative (Negative); Specific Grav Ur 1.014 (1.001-1.035)
[2025-10-11 20:00] VITALS: PULSE 83; RESP 18; O2SAT 97
[2025-10-11 21:06] VITALS: BP 145/71; PULSE 83; RESP 18; TEMP 36.1; O2SAT 97
[2025-10-11] MEDS: SENNOSIDES 8.6 MG TABLET PO (21:14)
[2025-10-11] MEDS: levoFLOXacin 750 MG/D5W 150 ML 750 MG/150 ML BAG 100 MG IVPB (22:29)
[2025-10-12] MEDS: METOCLOPRAMIDE HCL 5 MG TABLET PO ×2 (05:30→16:39)
[2025-10-12] MEDS: CENTRAL LINE FLUSH 10 ML IV PUSH ×3 (05:30→22:00)
[2025-10-12 05:45] LABS: Hematocrit 27.9 % (37.0-47.0); Hemoglobin 8.8 g/dL (12.0-15.0); Mean Corpuscular HGB Conc 31.5 g/dl (32-36); Mean Corpuscular Hemoglobin 32.4 pg (26-34); Mean Corpuscular Volume 102.6 fl (80-100); Platelet Count Result 533 k/mm3 (150-375); Red Blood Count 2.72 M/mm3 (4.2-5.4); White Blood Count 23.7 K/mm3 (4.5-10.0)
[2025-10-12 06:00] VITALS: BP 156/75; PULSE 70; RESP 18; TEMP 36.4; O2SAT 100
[2025-10-12 06:04] LABS: Alanine Aminotransferase 15 U/L (6-35); Albumin Level 2.8 g/dL (3.5-5.1); Alkaline Phosphatase 76 U/L (38-126); Anion Gap 5 mmol/L (4-12); Aspartate Amino Transferase 35 U/L (14-36); Bilirubin,Total 0.3 mg/dL (0.2-1.3); Blood Urea Nitrogen 31 mg/dL (7-17); Calcium 8.4 mg/dL (8.4-10.2); Carbon Dioxide 27 mmol/L (22-30); Chloride 105 mmol/L (98-107); Estimated CRCL calculation 52 ml/min; Estimated Glomerular Filt Rate > 60; Glucose 91 mg/dL (65-110); Magnesium 1.9 mg/dL (1.6-2.3); Potassium 3.9 mmol/L (3.4-5.0); Sodium 137 mmol/L (137-145); Total Protein 7.0 g/dL (6.3-8.2)
[2025-10-12 06:26] LABS: Band Neutrophils Percent 5 % (0-6); Basophils Absolute Manual 0.23 K/mm3 (0.0-0.1); Basophils Percent Manual 1 % (0-1); Eosinophils Absolute Manual 0.23 K/mm3 (0.02-0.50); Eosinophils Percent Manual 1 % (0-4); Lymphocytes Absolute Manual 6.16 K/mm3 (1.1-4.5); Lymphocytes Percent Manual 26 % (18-44); Metamyelocytes Percent 10 %; Monocytes Absolute Manual 1.18 K/mm3 (0.1-0.90); Monocytes Percent Manual 5 % (3-9); Neutrophils Absolute Manual 13.50 K/mm3 (1.3-6.7); Neutrophils Percent Manual 52 % (46-73); Smudge Cells PRESENT; Total Cells Counted 100
[2025-10-12 06:27] LABS: Basophilic Stippling Occasional; Hypochromasia 1+; Macrocytosis 1+ (NORMAL); Schistocytes None Seen; Target Cells Occasional
--- NOTE | 2025-10-12 07:03 | P.PNIM_ITS ---
Progress Note: A&P Assessment and Plan (1) Pneumonia: Qualifiers: Laterality: bilateral Lung location: lower lobe of lung Pneumonia type: due to unspecified organism Qualified Code(s): J18.9 - Pneumonia, unspecified organism Code(s): J18.9 - Pneumonia, unspecified organism Status: Acute Assessment and Plan: * Chest XR: Cardiomegaly, severe atherosclerotic aorta and mild congestive changes of lungs with small bilateral pleural effusions. * WBC wnl * sputum and blood cultures pending * the patient is complaining of weakness. She is wheelchair dependent * PT OT evaluation * Blood cultures pending * Weaned off o2 supplementation * O2 sat @ 98% * Repeat CXR 10/11: Persistent left basilar atelectasis and/or airspace disease, with small probable effusion. Improving but persistent interstitial pulmonary edema and/or pneumonitis. * Will consider discontinuing antibiotics tomorrow (2) Leukocytosis: Code(s): D72.829 - Elevated white blood cell count, unspecified Status: Acute Assessment and Plan: * UA on 10/07 not concerning for infection * Blood cultures on 10/07 no growth * WBC 9.1 -> 10 -> 12.4 -> 18.2 * Chronic steroid use, prednisone 10mg restarted on , concurrent with timing of rise of WBC * Repeat CXR shows improving pneumonia * Repeat UA w/ culture reflex to rule out UTI * No SIRS criteria * Repeat blood cultures (3) Congestive heart failure: Code(s): I50.9 - Heart failure, unspecified Status: Acute Assessment and Plan: * Heart failure with preserved ejection fraction, hyperdynamic LVEF and grade 1 diastolic dysfunction per echocardiogram last month. * Hydrochlorothiazide stopped, IV furosemide started * Swelling continues to improve (4) Joint swelling: Code(s): M25.40 - Effusion, unspecified joint Status: Acute Assessment and Plan: * Right knee swelling noted, previous episode of septic joint noted in records * Patient reports she was supposed to get another drainage completed but never had orthopedic follow-up since [facility]. * Orthopedics consulted * CT R knee pending (5) Hypertension: Qualifiers: Hypertension type: primary hypertension Qualified Code(s): I10 - Essential (primary) hypertension Code(s): I10 - Essential (primary) hypertension Status: Acute Assessment and Plan: * continue with metoprolol * Current BP 156/75 (6) Hyperlipidemia: Code(s): E78.5 - Hyperlipidemia, unspecified Status: Acute Assessment and Plan: * Not on statins (7) Rheumatoid arthritis: Qualifiers: Rheumatoid arthritis location: unspecified site Rheumatoid factor presence: unspecified presence Qualified Code(s): M06.9 - Rheumatoid arthritis, unspecified Code(s): M06.9 - Rheumatoid arthritis, unspecified Status: Acute Assessment and Plan: * continue with her home medications of prednisone, Lyrica, and tramadol (8) Severe protein-calorie malnutrition: Code(s): E43 - Unspecified severe protein-calorie malnutrition Status: Acute Assessment and Plan: * Agree with diagnosis of severe protein calorie malnutrition * Consult gas blender Plan 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 H&H is stable at 8.5 and 27.0. The patient has a left upper chest Port-A-Cath which was accessed and is working well. Subjective Date/time seen: 10/12/25 07:03 Interval history: This is a 75-year-old female patient who is admitted to the hospital for hypoxia and pneumonia. Patient previously seen in the emergency department on 10/05 and diagnosed with bilateral pneumonia returning back to the emergency department on 10/07 with continued difficulty breathing and new oxygen demand/hypoxia. Patient was placed on oxygen 1-2 liters/minute and initiated on levofloxacin 10/12/2025 Patient sitting comfortably at bedside during examination. Patient states that she is feeling better today, denies any chest pain, shortness of breath, nausea/vomiting/diarrhea or abdominal pain. Still having some right knee pain, will obtain CT of the right knee, ortho consult still pending. WBC continues to increase, could be secondary to underlying RA or steroid use, will obtain 2nd set blood cultures to rule out bloodstream infection. CMP WNL, remains afebrile. Review of Systems Review of Systems: All systems reviewed & are unremarkable except as noted in HPI and below Exam Narrative: GENERAL: In no acute respiratory distress, speaks very softly HEAD: Normocephalic, atraumatic. ENT:? Mucous membranes moist. CHEST: Mildly diminished lung sounds throughout, minimally dyspneic per observation. Supplemental oxygen in place HEART: Regular rate and rhythm. ? Normal peripheral pulses. ABDOMEN: Soft, nontender, nondistended. EXTREMITIES: Improving bilateral lower extremity edema, right knee swollen with effusion and tender to the touch. SKIN: Warm dry normal color NEURO: Alert and oriented x3. 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 PSYCH: Normal mood and affect Const: General: cooperative, comfortable, no acute distress, well developed, awake, Physically active, average body habitus and well nourished Nutritional Appearance: average body habitus and well nourished Orientation/consciousness: oriented to person, oriented to place, oriented to time and patient oriented x3 Limitations: no limitations HENMT: Head: normal to inspection, No palpable skull fracture present, normocephalic, atraumatic and abrasion Ears: hearing grossly normal bilaterally and external ears normal Face/Nose/Sinus: Normal external nose present Eyes: General: appearance normal, both eyes and all related structures Alignment and Position: alignment normal Periorbital: periorbital findings normal Eyelids: eyelids normal Conjunctivae: conjunctivae normal EOM: EOMs intact bilaterally Neck: Neck: normal visual inspection and full ROM Chest: Chest palpation & inspection: normal inspection of the chest Resp: Effort & Inspection: normal respiratory effort Auscultation: clear to auscultation bilaterally Cardio: Palpation: normal PMI Rate: regular rate Rhythm: regular rhythm Heart sounds: S1 normal heart sound present and S2 normal heart sound present Peripheral pulses: Peripheral pulses 2+ throughout GI: Inspection: normal to inspection : General: Yes no CVA tenderness Back/Spine/Pelvis: Back: no CVA tenderness Cervical Spine: cervical ROM normal Skin: General skin exam: normal color Lesions: no lesions Rashes: no rashes Trauma: no lacerations or abrasions Wounds: no wounds Hair: normal Nails: normal Neuro: General: oriented to person, oriented to place, oriented to time and patient oriented x3 Cranial nerves: Yes Normal hearing present Cognition (Neuro): normal cognition Speech: normal speech Motor exam (neuro): 5/5 motor strength present throughout Sensory Exam: normal sensation Extrem: General: normal to inspection Right upper extremity: normal to inspection and shoulder/upper arm Left upper extremity: normal to inspection and shoulder/upper arm Right lower extremity: normal to inspection Left lower extremity: normal to inspection Psych: Appearance: grossly normal Mental Status: mental status grossly normal Speech and movement: Normal speech and movement present Affect: normal affect Attitude: cooperative Thought process: Normal thought process present Insight: Good insight present (Psych) Judgement: Good judgement present (Psych) Objective Data Vital Signs Vital Signs: Vital Signs - 24 hr 10/11/25 08:00 10/11/25 09:03 10/11/25 10:12 Temperature Pulse Rate 72 Respiratory Rate Blood Pressure Pulse Oximetry 95 Oxygen Delivery Room Air Room Air 10/11/25 14:00 10/11/25 20:00 10/11/25 21:06 Temperature 97.6 F 97 F L Pulse Rate 74 83 83 Respiratory Rate 16 18 18 Blood Pressure 123/67 145/71 H Pulse Oximetry 100 97 97 Oxygen Delivery Room Air 10/12/25 06:00 Temperature 97.6 F Pulse Rate 70 Respiratory Rate 18 Blood Pressure 156/75 H Pulse Oximetry 100 Oxygen Delivery Intake/Output Intake/Output: Intake & Output 10/09/25 10/10/25 10/11/25 10/12/25 23:59 23:59 23:59 23:59 Intake Total 1360 1770 1080 150 Output Total 1600 600 750 400 Balance -240 1170 330 -250 Meds/Results Medications: Active Medications Generic Name Dose Route Start Last Admin Trade Name Freq PRN Reason Stop Dose Admin Aspirin 81 mg 10/08/25 08:00 10/11/25 10:08 Aspirin 81 Mg Chewable Tablet PO 81 mg DAILY@0800 MIROSLAVA Administration Bisacodyl 10 mg 10/08/25 01:50 Bisacodyl 5 Mg Tablet Ec PO QAM PRN Constipation Clopidogrel Bisulfate 75 mg 10/08/25 09:00 10/11/25 10:08 Clopidogrel Bisulfate 75 Mg Tablet PO 75 mg QAM MIROSLAVA Administration Ferrous Sulfate 325 mg 10/08/25 08:00 10/11/25 16:26 Ferrous Sulfate 325 Mg Tablet PO Not Given BIDWM MIROSLAVA Furosemide 40 mg 10/10/25 09:00 10/11/25 10:08 Furosemide 40 Mg Tablet PO 40 mg DAILY MIROSLAVA Administration Heparin Sodium (Beef Lung) 50 units 10/08/25 09:00 10/11/25 10:09 Heparin Flush 50 Units/5 Ml Syringe IV PUSH 50 units QAM MIROSLAVA Administration Heparin Sodium (Beef Lung) 50 units 10/07/25 23:18 10/08/25 01:15 Heparin Flush 50 Units/5 Ml Syringe IV PUSH 50 units PRN PRN Administration after intermittent infusion Heparin Sodium (Beef Lung) 50 units 10/07/25 23:18 10/10/25 05:32 Heparin Flush 50 Units/5 Ml Syringe IV PUSH 50 units PRN PRN Administration after blood draws Heparin Sodium (Porcine) 500 units 10/07/25 23:18 Heparin Sodium Lock Flush 500 Units/5 Ml Syringe IV PUSH PRN PRN see comments below Levofloxacin/Dextrose 750 mg in 150 mls @ 100 mls/hr 10/08/25 23:00 10/11/25 22:29 Levaquin 750 Mg/D5w 150 Ml IVPB 100 mls/hr Q24H MIROSLAVA Administration Menthol/Methyl Salicylate 1 applic 10/08/25 01:50 Menthol 10% / Methyl Salicylate 15% 57 Gm Tube TOPICAL BID PRN muscle pain Metoclopramide HCl 5 mg 10/08/25 06:30 10/12/25 05:30 Metoclopramide Hcl 5 Mg Tablet PO 5 mg BIDAC MIROSLAVA Administration Metoprolol Succinate 25 mg 10/08/25 09:00 10/11/25 10:12 Metoprolol Succinate Ext Rel 25 Mg Tabcr PO 25 mg QAM MIROSLAVA Administration Pantoprazole Sodium 40 mg 10/08/25 09:00 10/11/25 10:09 Pantoprazole 40 Mg Tablet PO 40 mg DAILY MIROSLAVA Administration Polyethylene Glycol 17 gm 10/08/25 09:00 10/11/25 10:23 Polyethylene Glycol 3350 17 Gm Powd.Pack PO Not Given DAILY MIROSLAVA Prednisone 10 mg 10/08/25 08:00 10/11/25 10:08 Prednisone 10 Mg Tablet PO 10 mg DAILY@0800 MIROSLAVA Administration Pregabalin 50 mg 10/08/25 09:00 10/11/25 16:26 Pregabalin (*Crx) 50 Mg Capsule PO 50 mg BID MIROSLAVA Administration Senna 8.6 mg 10/08/25 21:00 10/11/25 21:14 Sennosides 8.6 Mg Tablet PO 8.6 mg HS MIROSLAVA Administration Sodium Chloride 10 ml 10/08/25 06:00 10/12/25 05:30 Central Line Flush IV PUSH 10 ml Q8HR MIROSLAVA Administration Tramadol HCl 50 mg 10/08/25 01:50 Tramadol Hcl (*Crx) 50 Mg Tablet PO Q12H PRN Pain 4-6 Radiology Results: ITS Impressions Abdomen/Pelvis CT 10/07/25 20:32 IMPRESSION: 1. Chest X-Ray 10/11/25 12:20 IMPRESSION: 1. Persistent left basilar atelectasis and/or airspace disease, with small probable effusion. 2. Improving but persistent interstitial pulmonary edema and/or pneumonitis. Labs Labs: Laboratory Results - last 24 hr 10/11/25 10/12/25 15:57 05:15 WBC 23.7 H RBC 2.72 L Hgb 8.8 L Hct 27.9 L MCV 102.6 H MCH 32.4 MCHC 31.5 L RDW 16.4 H Plt Count 533 H MPV 9.1 Immature Gran % (Auto) Not Reportable Neut % (Auto) Not Reportable Lymph % (Auto) Not Reportable [place] % (Auto) Not Reportable Eos % (Auto) Not Reportable Baso % (Auto) Not Reportable Lymph # (Auto) Not Reportable [place] # (Auto) Not Reportable Eos # (Auto) Not Reportable Baso # (Auto) Not Reportable Abs Immat Gran (auto) Not Reportable Absolute Neuts (auto) Not Reportable Absolute Nucleated RBC Not Reportable Total Counted 100 Neutrophils % (Manual) 52 Band Neutrophils % 5 Lymphocytes % (Manual) 26 Monocytes % (Manual) 5 Eosinophils % (Manual) 1 Basophils % (Manual) 1 Metamyelocytes % 10 Nucleated RBC % Not Reportable Abs Neuts (Manual) 13.50 H Abs Lymphs (Manual) 6.16 H Abs Monocytes (Manual) 1.18 H Absolute Eos (Manual) 0.23 Abs Basophils (Manual) 0.23 H Smudge Cells Present Platelet Estimate Increased Hypochromasia 1+ Basophilic Stippling Occasional Macrocytosis 1+ Target Cells Occasional Schistocytes None seen Sodium 137 Potassium 3.9 Chloride 105 Carbon Dioxide 27 Anion Gap 5 BUN 31 H Creatinine 0.73 Estim Creat Clear Calc 52 Estimated GFR > 60 Glucose 91 Calcium 8.4 Magnesium 1.9 Total Bilirubin 0.3 AST 35 ALT 15 Alkaline Phosphatase 76 Total Protein 7.0 Albumin 2.8 L Urine Color Yellow Urine Appearance Clear Urine pH 8.0 Ur Specific [place] 1.014 Urine Protein Negative Urine Glucose (UA) Negative Urine Ketones Negative Ur Blood (Man) Negative Urine Nitrate Negative Urine Bilirubin Negative Urine Urobilinogen 0.2 Leukocyte Esterase Rfl Negative Quality VTE Prophylaxis VTE prophylaxis: mechanical ordered
[2025-10-12] MEDS: FERROUS SULFATE 325 MG TABLET PO ×2 (08:10→16:39)
[2025-10-12] MEDS: ASPIRIN 81 MG CHEWABLE TABLET PO (08:10)
[2025-10-12 09:11] LABS: Procalcitonin 0.1 ng/mL
[2025-10-12] MEDS: FUROSEMIDE 40 MG TABLET PO (10:17)
[2025-10-12] MEDS: CLOPIDOGREL BISULFATE 75 MG TABLET PO (10:17)
[2025-10-12 10:18] VITALS: PULSE 79
[2025-10-12] MEDS: METOPROLOL SUCCINATE EXT REL 25 MG TABCR PO (10:18)
[2025-10-12] MEDS: PREGABALIN (*CRX) 50 MG CAPSULE PO ×2 (10:19→16:39)
[2025-10-12] MEDS: PANTOPRAZOLE 40 MG TABLET PO (10:19)
[2025-10-12 14:00] VITALS: BP 112/62; PULSE 77; RESP 16; TEMP 36.4; O2SAT 96
[2025-10-12 20:00] VITALS: PULSE 77; RESP 16; O2SAT 96
[2025-10-12] MEDS: SENNOSIDES 8.6 MG TABLET PO (20:06)
[2025-10-12 20:41] VITALS: BP 130/72; PULSE 71; RESP 18; TEMP 36.8; O2SAT 95
[2025-10-12] MEDS: levoFLOXacin 750 MG/D5W 150 ML 750 MG/150 ML BAG 100 MG IVPB (23:00)
[2025-10-13] MEDS: CENTRAL LINE FLUSH 10 ML IV PUSH ×3 (05:50→23:31)
[2025-10-13 06:00] VITALS: BP 167/72; PULSE 75; RESP 18; TEMP 36.6; O2SAT 99
[2025-10-13 06:02] LABS: Hematocrit 24.0 % (37.0-47.0); Hemoglobin 7.5 g/dL (12.0-15.0); Mean Corpuscular HGB Conc 31.3 g/dl (32-36); Mean Corpuscular Hemoglobin 32.5 pg (26-34); Mean Corpuscular Volume 103.9 fl (80-100); Platelet Count Result 435 k/mm3 (150-375); Red Blood Count 2.31 M/mm3 (4.2-5.4); White Blood Count 19.9 K/mm3 (4.5-10.0)
[2025-10-13 06:28] LABS: Alanine Aminotransferase 12 U/L (6-35); Albumin Level 2.3 g/dL (3.5-5.1); Alkaline Phosphatase 66 U/L (38-126); Anion Gap 4 mmol/L (4-12); Aspartate Amino Transferase 29 U/L (14-36); Bilirubin,Total 0.3 mg/dL (0.2-1.3); Blood Urea Nitrogen 25 mg/dL (7-17); Calcium 7.0 mg/dL (8.4-10.2); Carbon Dioxide 23 mmol/L (22-30); Chloride 111 mmol/L (98-107); Estimated CRCL calculation 57 ml/min; Estimated Glomerular Filt Rate > 60; Glucose 72 mg/dL (65-110); Magnesium 1.6 mg/dL (1.6-2.3); Potassium 3.0 mmol/L (3.4-5.0); Sodium 138 mmol/L (137-145); Total Protein 5.8 g/dL (6.3-8.2)
[2025-10-13 07:11] LABS: Band Neutrophils Percent 6 % (0-6); Eosinophils Absolute Manual 0.39 K/mm3 (0.02-0.50); Eosinophils Percent Manual 2 % (0-4); Lymphocytes Absolute Manual 5.97 K/mm3 (1.1-4.5); Lymphocytes Percent Manual 30 % (18-44); Metamyelocytes Percent 3 %; Monocytes Absolute Manual 0.19 K/mm3 (0.1-0.90); Monocytes Percent Manual 1 % (3-9); Neutrophils Absolute Manual 12.73 K/mm3 (1.3-6.7); Neutrophils Percent Manual 58 % (46-73); Total Cells Counted 100
[2025-10-13 07:12] LABS: Hypochromasia 2+; Polychromasia 1+; Smudge Cells MODERATE
[2025-10-13 07:13] LABS: Anisocytosis 2+
[2025-10-13 07:14] LABS: Ovalocytes 1+; Schistocytes Occasional; Target Cells Occasional; Tear Drop Cells 1+
--- NOTE | 2025-10-13 07:19 | P.PNIM_ITS ---
Progress Note: A&P Assessment and Plan (1) Pneumonia: Qualifiers: Laterality: bilateral Lung location: lower lobe of lung Pneumonia type: due to unspecified organism Qualified Code(s): J18.9 - Pneumonia, unspecified organism Code(s): J18.9 - Pneumonia, unspecified organism Status: Acute Assessment and Plan: * Chest XR: Cardiomegaly, severe atherosclerotic aorta and mild congestive changes of lungs with small bilateral pleural effusions. * WBC wnl * sputum and blood cultures pending * the patient is complaining of weakness. She is wheelchair dependent * PT OT evaluation * Blood cultures pending * Weaned off o2 supplementation * O2 sat @ 98% * Repeat CXR 10/11: Persistent left basilar atelectasis and/or airspace disease, with small probable effusion. Improving but persistent interstitial pulmonary edema and/or pneumonitis. * Will consider discontinuing antibiotics tomorrow (2) Leukocytosis: Code(s): D72.829 - Elevated white blood cell count, unspecified Status: Acute Assessment and Plan: * UA on 10/07 not concerning for infection * Blood cultures on 10/07 no growth * WBC 9.1 -> 10 -> 12.4 -> 18.2 * Chronic steroid use, prednisone 10mg restarted on , concurrent with timing of rise of WBC * Repeat CXR shows improving pneumonia * Repeat UA w/ culture reflex to rule out UTI * No SIRS criteria * Repeat blood cultures * WBC 10 -> 12.4 -> 18.2 ->23.7 -> 19.9 (3) Joint swelling: Code(s): M25.40 - Effusion, unspecified joint Status: Acute Assessment and Plan: * Right knee swelling noted, previous episode of septic joint noted in records * Patient reports she was supposed to get another drainage completed but never had orthopedic follow-up since she has been in group home facility. * CT R knee: Dislocated patella. Complex fluid within the joint space which may reflect posttraumatic hemorrhage, distinction from infection is limited. Clinical correlation is required. Clinically if there is concern for infection contrast-enhanced MRI is recommended * Knee MRI ordered * Orthopedics consulted * Plan to aspirate R knee today @ 1430 (4) Congestive heart failure: Code(s): I50.9 - Heart failure, unspecified Status: Acute Assessment and Plan: * Heart failure with preserved ejection fraction, hyperdynamic LVEF and grade 1 diastolic dysfunction per echocardiogram last month. * Hydrochlorothiazide stopped, IV furosemide started * Swelling continues to improve (5) Hypertension: Qualifiers: Hypertension type: primary hypertension Qualified Code(s): I10 - Essential (primary) hypertension Code(s): I10 - Essential (primary) hypertension Status: Acute Assessment and Plan: * continue with metoprolol * Current BP 156/75 (6) Hyperlipidemia: Code(s): E78.5 - Hyperlipidemia, unspecified Status: Acute Assessment and Plan: * Not on statins (7) Rheumatoid arthritis: Qualifiers: Rheumatoid arthritis location: unspecified site Rheumatoid factor presence: unspecified presence Qualified Code(s): M06.9 - Rheumatoid arthritis, unspecified Code(s): M06.9 - Rheumatoid arthritis, unspecified Status: Acute Assessment and Plan: * continue with her home medications of prednisone, Lyrica, and tramadol (8) Severe protein-calorie malnutrition: Code(s): E43 - Unspecified severe protein-calorie malnutrition Status: Acute Assessment and Plan: * Agree with diagnosis of severe protein calorie malnutrition * Consult development technologist Plan 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 H&H is stable at 8.5 and 27.0. The patient has a left upper chest Port-A-Cath which was accessed and is working well. Subjective Date/time seen: 10/13/25 07:19 Interval history: This is a 75-year-old female patient who is admitted to the hospital for hypoxia and pneumonia. Patient previously seen in the emergency department on 10/05 and diagnosed with bilateral pneumonia returning back to the emergency department on 10/07 with continued difficulty breathing and new oxygen demand/hypoxia. Patient was placed on oxygen 1-2 liters/minute and initiated on levofloxacin 10/13/2025 Patient sitting comfortably in chair at bedside during examination. Denies any CP, SOB, n/v or abd pain today. Still having some R knee pain. Knee CT showed dislocated patella, complex fluid in joint space, may be posttraumatic hemorrhage or infection - will obtain Knee MRI. Ortho planning on aspirating knee joint today. Labs and vitals otherwise remain stable. Review of Systems Review of Systems: All systems reviewed & are unremarkable except as noted in HPI and below Exam Narrative: GENERAL: In no acute respiratory distress, speaks very softly HEAD: Normocephalic, atraumatic. ENT:? Mucous membranes moist. CHEST: Mildly diminished lung sounds throughout, minimally dyspneic per observation. Supplemental oxygen in place HEART: Regular rate and rhythm. ? Normal peripheral pulses. ABDOMEN: Soft, nontender, nondistended. EXTREMITIES: Improving bilateral lower extremity edema, right knee swollen with effusion and tender to the touch. SKIN: Warm dry normal color NEURO: Alert and oriented x3. 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 PSYCH: Normal mood and affect Const: General: cooperative, comfortable, no acute distress, well developed, awake, Physically active, average body habitus and well nourished Nutritional Appearance: average body habitus and well nourished Orientation/consciousness: oriented to person, oriented to place, oriented to time and patient oriented x3 Limitations: no limitations HENMT: Head: normal to inspection, No palpable skull fracture present, normocephalic, atraumatic and abrasion Ears: hearing grossly normal bilaterally and external ears normal Face/Nose/Sinus: Normal external nose present Eyes: General: appearance normal, both eyes and all related structures Ali gnment and Position: alignment normal Periorbital: periorbital findings normal Eyelids: eyelids normal Conjunctivae: conjunctivae normal EOM: EOMs intact bilaterally Neck: Neck: normal visual inspection and full ROM Chest: Chest palpation & inspection: normal inspection of the chest Resp: Effort & Inspection: normal respiratory effort Auscultation: clear to auscultation bilaterally Cardio: Palpation: normal PMI Rate: regular rate Rhythm: regular rhythm Heart sounds: S1 normal heart sound present and S2 normal heart sound present Peripheral pulses: Peripheral pulses 2+ throughout GI: Inspection: normal to inspection : General: Yes no CVA tenderness Back/Spine/Pelvis: Back: no CVA tenderness Cervical Spine: cervical ROM normal Skin: General skin exam: normal color Lesions: no lesions Rashes: no rashes Trauma: no lacerations or abrasions Wounds: no wounds Hair: normal Nails: normal Neuro: General: oriented to person, oriented to place, oriented to time and patient oriented x3 Cranial nerves: Yes Normal hearing present Cognition (Neuro): normal cognition Speech: normal speech Motor exam (neuro): 5/5 motor strength present throughout Sensory Exam: normal sensation Extrem: General: normal to inspection Right upper extremity: normal to ins pection and shoulder/upper arm Left upper extremity: normal to inspection and shoulder/upper arm Right lower extremity: normal to inspection Left lower extremity: normal to inspection Psych: Appearance: grossly normal Mental Status: mental status grossly normal Speech and movement: Normal speech and movement present Affect: normal affect Attitude: cooperative Thought process: Normal thought process present Insight: Good insight present (Psych) Judgement: Good judgement present (Psych) Objective Data Vital Signs Vital Signs: Vital Signs - 24 hr 10/12/25 08:00 10/12/25 10:18 10/12/25 14:00 Temperature 97.6 F Pulse Rate 79 77 Respiratory Rate 16 Blood Pressure 112/62 Pulse Oximetry 96 Oxygen Delivery Room Air 10/12/25 20:00 10/12/25 20:41 10/13/25 06:00 Temperature 98.3 F 97.8 F Pulse Rate 77 71 75 Respiratory Rate 16 18 18 Blood Pressure 130/72 167/72 H Pulse Oximetry 96 95 99 Oxygen Delivery Room Air Intake/Output Intake/Output: Intake & Output 10/10/25 10/11/25 10/12/25 10/13/25 23:59 23:59 23:59 23:59 Intake Total 1770 1230 1194 220 Output Total 162 732 8884 400 Balance 1170 480 144 -180 Meds/Results Medications: Active Medications Generic Name Dose Route Start Last Admin Trade Name Freq PRN Reason Stop Dose Admin Aspirin 81 mg 10/08/25 08:00 10/12/25 08:10 Aspirin 81 Mg Chewable Tablet PO 81 mg DAILY@0800 MIROSLAVA Administration Bisacodyl 10 mg 10/08/25 01:50 Bisacodyl 5 Mg Tablet Ec PO QAM PRN Constipation Clopidogrel Bisulfate 75 mg 10/08/25 09:00 10/12/25 10:17 Clopidogrel Bisulfate 75 Mg Tablet PO 75 mg QAM MIROSLAVA Administration Ferrous Sulfate 325 mg 10/08/25 08:00 10/12/25 16:39 Ferrous Sulfate 325 Mg Tablet PO 325 mg BIDWM MIROSLAVA Administration Furosemide 40 mg 10/10/25 09:00 10/12/25 10:17 Furosemide 40 Mg Tablet PO 40 mg DAILY MIROSLAVA Administration Heparin Sodium (Beef Lung) 50 units 10/08/25 09:00 10/12/25 10:18 Heparin Flush 50 Units/5 Ml Syringe IV PUSH 50 units QAM MIROSLAVA Administration Heparin Sodium (Beef Lung) 50 units 10/07/25 23:18 10/08/25 01:15 Heparin Flush 50 Units/5 Ml Syringe IV PUSH 50 units PRN PRN Administration after intermittent infusion Heparin Sodium (Beef Lung) 50 units 10/07/25 23:18 10/10/25 05:32 Heparin Flush 50 Units/5 Ml Syringe IV PUSH 50 units PRN PRN Administration after blood draws Heparin Sodium (Porcine) 500 units 10/07/25 23:18 Heparin Sodium Lock Flush 500 Units/5 Ml Syringe IV PUSH PRN PRN see comments below Levofloxacin/Dextrose 750 mg in 150 mls @ 100 mls/hr 10/08/25 23:00 10/12/25 23:00 Levaquin 750 Mg/D5w 150 Ml IVPB 100 mls/hr Q24H MIROSLAVA Administration Menthol/Methyl Salicylate 1 applic 10/08/25 01:50 Menthol 10% / Methyl Salicylate 15% 57 Gm Tube TOPICAL BID PRN muscle pain Metoclopramide HCl 5 mg 10/08/25 06:30 10/13/25 05:50 Metoclopramide Hcl 5 Mg Tablet PO Not Given BIDAC MIROSLAVA Metoprolol Succinate 25 mg 10/08/25 09:00 10/12/25 10:18 Metoprolol Succinate Ext Rel 25 Mg Tabcr PO 25 mg QAM MIROSLAVA Administration Pantoprazole Sodium 40 mg 10/08/25 09:00 10/12/25 10:19 Pantoprazole 40 Mg Tablet PO 40 mg DAILY MIROSLAVA Administration Polyethylene Glycol 17 gm 10/08/25 09:00 10/12/25 10:19 Polyethylene Glycol 3350 17 Gm Powd.Pack PO Not Given DAILY MIROSLAVA Prednisone 10 mg 10/08/25 08:00 10/12/25 08:10 Prednisone 10 Mg Tablet PO 10 mg DAILY@0800 MIROSLAVA Administration Pregabalin 50 mg 10/08/25 09:00 10/12/25 16:39 Pregabalin (*Crx) 50 Mg Capsule PO 50 mg BID MIROSLAVA Administration Senna 8.6 mg 10/08/25 21:00 10/12/25 20:06 Sennosides 8.6 Mg Tablet PO 8.6 mg HS MIROSLAVA Administration Sodium Chloride 10 ml 10/08/25 06:00 10/13/25 05:50 Central Line Flush IV PUSH 10 ml Q8HR MIROSLAVA Administration Tramadol HCl 50 mg 10/08/25 01:50 Tramadol Hcl (*Crx) 50 Mg Tablet PO Q12H PRN Pain 4-6 Radiology Results: ITS Impressions Abdomen/Pelvis CT 10/07/25 20:32 IMPRESSION: 1. Chest X-Ray 10/11/25 12:20 IMPRESSION: 1. Persistent left basilar atelectasis and/or airspace disease, with small probable effusion. 2. Improving but persistent interstitial pulmonary edema and/or pneumonitis. Knee CT 10/12/25 15:14 IMPRESSION: Dislocated patella. Complex fluid within the joint space which may reflect posttraumatic hemorrhage, distinction from infection is limited. Clinical correlation is required. Clinically if there is concern for infection contrast-enhanced MRI is recommended Labs Labs: Laboratory Results - last 24 hr 10/12/25 10/13/25 08:22 05:31 WBC 19.9 H RBC 2.31 L Hgb 7.5 L Hct 24.0 L MCV 103.9 H MCH 32.5 MCHC 31.3 L RDW 17.0 H Plt Count 435 H MPV 9.1 Immature Gran % (Auto) Not Reportable Neut % (Auto) Not Reportable Lymph % (Auto) Not Reportable [place] % (Auto) Not Reportable Eos % (Auto) Not Reportable Baso % (Auto) Not Reportable Lymph # (Auto) Not Reportable [place] # (Auto) Not Reportable Eos # (Auto) Not Reportable Baso # (Auto) Not Reportable Abs Immat Gran (auto) Not Reportable Absolute Neuts (auto) Not Reportable Absolute Nucleated RBC Not Reportable Total Counted 100 Neutrophils % (Manual) 58 Band Neutrophils % 6 Lymphocytes % (Manual) 30 Monocytes % (Manual) 1 L Eosinophils % (Manual) 2 Metamyelocytes % 3 Nucleated RBC % Not Reportable Abs Neuts (Manual) 12.73 H Abs Lymphs (Manual) 5.97 H Abs Monocytes (Manual) 0.19 Absolute Eos (Manual) 0.39 Nucleated RBCs 2 Smudge Cells Moderate Platelet Estimate Increased Polychromasia 1+ Hypochromasia 2+ Anisocytosis 2+ Target Cells Occasional Tear Drop Cells 1+ Ovalocytes 1+ Schistocytes Occasional Sodium 138 Potassium 3.0 L Chloride 111 H Carbon Dioxide 23 Anion Gap 4 BUN 25 H Creatinine 0.66 L Estim Creat Clear Calc 57 Estimated GFR > 60 Glucose 72 Lactic Acid 1.7 Calcium 7.0 L Magnesium 1.6 Total Bilirubin 0.3 AST 29 ALT 12 Alkaline Phosphatase 66 Total Protein 5.8 L Albumin 2.3 L Procalcitonin 0.1 Quality VTE Prophylaxis VTE prophylaxis: mechanical ordered
--- NOTE | 2025-10-13 10:22 | PM.CNOR ---
Assessment and Plan Assessment and plan (1) Osteoarthritis of right knee: Qualifiers: Osteoarthritis type: primary Qualified Code(s): M17.11 - Unilateral primary osteoarthritis, right knee Code(s): M17.11 - Unilateral primary osteoarthritis, right knee Status: Acute Assessment and Plan: 75-year-old female who was presented to the emergency room with subsequent hospitalizations x3 since November for right knee joint pain and effusion. She has previously been seen by Dr. Bello. Radiographs have consistently revealed severe degenerative changes, most significant in the lateral compartment with tilt of the patella noted on previous radiographs as well. 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 She also has a recurrent knee joint effusion. On exam, significant valgus deformity. Incision from previous surgeries well approximated and healed. Discussed condition, nature, etiology course of natural history. Conservative and operative treatment options reviewed as well the risks and benefits of each. Recommended aspiration for synovial fluid analysis. Patient agreeable. The risks of injection were reviewed including but not limited to skin color changes, atrophy of the soft tissue, tendon or soft tissue rupture, joint degeneration, hyper inflammatory response, allergic reaction, continued pain or dysfunction. Specific risks of the procedure including deep infection or soft tissue rupture or recurrence of symptoms reviewed. No guarantees were offered. The patient understands the need for possible further treatment. See procedure note for details. In the interim, recommend weight-bearing as tolerated with a hinged knee brace. Hinged knee brace to be obtained from the [facility] and applied. Nursing notified. This should help with pain/stability as well. Patient to have ice and elevation when in bed. Recommend lidocaine patch for pain control daily. PT and OT for mobility. We will obtain CRP and ESR for reevaluation in comparison to previous visits. We will continue to monitor and determine further plan of care pending synovial fluid analysis. If negative for infection, would recommend conservative treatment with cortisone injection and use of brace. (2) Rheumatoid arthritis: Qualifiers: Rheumatoid arthritis location: unspecified site Rheumatoid factor presence: unspecified presence Qualified Code(s): M06.9 - Rheumatoid arthritis, unspecified Code(s): M06.9 - Rheumatoid arthritis, unspecified Status: Acute Assessment and Plan: Recommend follow-up with a rheumatoid arthritis physician at discharge. (3) Joint swelling: Code(s): M25.40 - Effusion, unspecified joint Status: Acute Assessment and Plan: Mild right knee joint effusion noted on exam. Discussed condition, nature, etiology course of natural history. Conservative and operative treatment options reviewed as well the risks benefits of each. Recommended aspiration of the right knee at this time to send for cell count, differential and Gram stain and culture. Patient agreeable. See procedure note for details. 7 mL of serosanguineous fluid aspirated from the right knee. No injection performed at this time. We will await results of cell count and differentials. If negative for infection, patient would be a candidate for a knee joint injection for pain control. (4) Septic joint of right knee joint: Qualifiers: Septic arthritis organism: due to unspecified organism Qualified Code(s): M00.9 - Pyogenic arthritis, unspecified Code(s): M00.9 - Pyogenic arthritis, unspecified Status: Acute Assessment and Plan: No significant redness, warmth. Mild knee joint effusion noted on exam. Pain with flexion extension however this is mild in nature. Previous cultures from November, March and August have all been negative to date. CRP has been elevated in the past. No CRP drawn since this admission. Will order. Aspiration performed today. Gram stain pending. Plan Reviewed history, exam, radiographs and current labs with attending MD and covering surgeon, Dr. Chambers, who agrees with current plan as indicated above. No further recommendations from Dr. Chambers at this time. History of Present Illness HPI Consult date: 10/13/25 Consult reason: joint pain (RIGHT KNEE ) Chief complaint: Pneumonia with failure of outpatient treatment Narrative: 75-year-old female with a complicated history of right knee pain. Orthopedic consult requested for right knee joint effusion. She has previously been seen in November 2024, March 2025 and August of [address] Bello for right knee pain/swelling/effusion and possible septic arthritis. She underwent a right knee arthroscopy by Dr. Bello in Nov. Synovial fluid cultures from all three visits have been negative for organisms to date. During her last visit, she was started on prednisone which she felt helped her pain until recently when she noticed she was not able to walk longer distances at the [facility]. This admission, the patient was initially admitted to [facility] from the ED for pneumonia. New radiographs from this visit reveal significant degenerative changes of the right knee, most severe in the lateral compartment with a valgus deformity and lateral tilt of the patella. A CT scan of the right knee was obtained which reveals a dislocated patella, which appears chronic in nature with a complex fluid within the joint space. Orthopedic consult requested for further evaluation. Review of Systems Review of Systems: All systems reviewed & are unremarkable except as noted in HPI and below [facility] Past Medical History Medical History Severe protein-calorie malnutrition Congestive heart failure CVA (cerebral vascular accident) Unchanged small old lacunar infarct at the anterior limb of the right internal capsule as seen on head CT 09/04/2025 Effusion of right knee Unilateral primary osteoarthritis, right knee DVT (deep venous thrombosis) No longer on anticoagulation Chronic blood loss anemia History of seizure (~11/2023) Following surgery for septic arthritis. Osteopenia Moderate protein malnutrition Diastolic dysfunction Echo on 09/08/2025 1. Normal LV size and wall thickness; hyperdynamic LV systolic function, ejection fraction more than 70%. Grade 1 diastolic dysfunction. Normal RV size and systolic function. Normal biatrial size. No interatrial shunt on bubble study. Mild mitral annular calcification, no significant MR. Aortic valve appears mildly calcified, mild aortic stenosis, calculated YENI 2 cm2; maximum velocity 2.36 m/sec, mean gradient 11 mmHg. Mild tricuspid regurgitation, mild pulmonary hypertension, RVSP 40 mmHg. Mild aortic root calcification. No significant pericardial effusion. Occult blood in stools Hyperlipidemia Hypertension Rheumatoid arthritis Surgical History Surgical History History of colonoscopy (07/17/24) Internal hemorrhoids, diverticulosis Normal esophagogastroduodenoscopy (EGD) (07/17/24) PEG (percutaneous endoscopic gastrostomy) status Place at [facility] in January 2024 due to dysphagia, remains in place due to moderate to severe protein calorie malnutrition with approximately 50 lb weight loss since August 2023. History of total left knee replacement Port-A-Cath in place Left chest wall H/O right knee surgery (~11/2023) Washout due to septic arthritis November 2023 H/O: hysterectomy Family History Family History Father , black lung disease No problems noted. Mother , from OJI gangrene. No problems noted. Sibling Acute myocardial infarction Prednisolone adverse reaction Sibling No problems noted. Social History Social History Social History: . She is retired from the [employer]. She has 2 sons. She is wheelchair dependent and currently resides at [facility]. Code status: [facility] documentation lists Full Code and POLST signed 09/18/25 Surrogate decision maker: Code status: Full code Smoking status: Never smoker Second hand tobacco smoke exposure: No Alcohol intake: never Substance use: never Substance use type: does not use Do You Feel Safe in your Home?: Yes Lack of Transportation: YES Lack of Food: Never True Current Housing: I Have Housing Concerned About Future Housing: No Difficulty Paying Gas/Electric Bills: No Difficulty Paying for Meds: No Currently Unemployed: No Education: Master's Degree or Higher Difficulty w/ Childcare or Family Care: No Living arrangements: intermediate Additional living arrangements comments: previously with family; at [facility] since 09/18/25 Occupation/Education: retired 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 [employer] Gender identity (if verbalized by the patient): Male Spiritual care concerns: No Meds Home Medications and Allergies Home Medications ?Medication ?Instructions ?Recorded ?Confirmed ?Type polyethylene glycol 3350 17 17 g PO DAILY 07/09/24 10/07/25 History gram/dose oral powder (Miralax) metoprolol succinate 25 mg 25 mg PO QAM #60 tabs 07/22/24 10/07/25 Rx tablet,extended release 24 hr (Toprol XL) bisacodyl 5 mg tablet,delayed 10 mg (2 x 5 mg) PO QAM PRN 12/17/24 10/07/25 Rx release (Laxative (bisacodyl)) Constipation #30 tabs ferrous sulfate 325 mg (65 mg 325 mg PO BIDWM #60 tabs 12/17/24 10/07/25 Rx iron) tablet,delayed release aspirin 81 mg tablet 81 mg PO DAILY 05/15/25 10/07/25 History hydrochlorothiazide 12.5 mg capsule 25 mg PO DAILY 05/15/25 10/07/25 History prednisone 20 mg tablet 10 mg PO DAILY 05/15/25 10/07/25 History pantoprazole 40 mg tablet,delayed 40 mg PO DAILY 09/02/25 10/07/25 History release pregabalin 50 mg capsule 50 mg PO BID 09/02/25 10/07/25 History clopidogrel 75 mg tablet 75 mg PO QAM 30 days #30 tabs 09/18/25 10/07/25 Rx sennosides 8.6 mg tablet (Senokot) 8.6 mg PO HS 7 days #7 tabs 09/18/25 10/07/25 Rx tramadol 50 mg tablet 50 mg PO Q12H PRN Pain 4-6 10 days 09/18/25 10/07/25 Rx #12 tabs azithromycin 250 mg tablet 250 mg PO DAILY 4 days #4 tabs 10/05/25 10/07/25 Rx acetaminophen 325 mg tablet 650 mg PO Q4H PRN pain 10/07/25 10/07/25 History camphor 4 %-methyl salicylate 30 1 applic topical BID PRN muscle 10/07/25 10/07/25 History %-menthol 10 % topical cream pain (Bengay Ultra Strength) diclofenac 1 % gel-benzalkonium 1 g topical TID 10/07/25 10/07/25 History chloride 0.13 % towelette topical kit metoclopramide HCl 5 mg tablet 5 mg PO BID 10/07/25 10/07/25 History Allergies Allergy/AdvReac Type Severity Reaction Status Date / Time amlodipine Allergy Severe Hives Verified 10/07/25 22:55 banana Allergy Severe throat Verified 10/07/25 22:55 Itching latex Allergy Severe Redness of Verified 10/07/25 22:55 Skin, baker lisinopril Allergy Severe Difficulty Verified 10/07/25 22:55 Breathing Penicillins Allergy Severe Rash Verified 10/07/25 22:55 pseudoephedrine Allergy Severe Difficulty Verified 10/07/25 22:55 Breathing tetracycline Allergy Severe Difficulty Verified 10/07/25 22:55 Breathing tree nut Allergy Severe Other Verified 10/07/25 22:55 dextromethorphan Allergy Intermediate Rash Verified 10/07/25 22:55 prednisone Allergy Unknown Other Verified 10/07/25 22:55 acetaminophen AdvReac Intermediate Nausea and Verified 10/07/25 22:55 Vomiting aspirin AdvReac Intermediate Nausea and Verified 10/07/25 22:55 Vomiting vancomycin AdvReac Intermediate Other Verified 10/07/25 22:55 Sulfa (Sulfonamide AdvReac Mild Other Verified 10/07/25 22:55 Antibiotics) Vital Signs Vital Signs - 24 hr 10/12/25 14:00 10/12/25 20:00 10/12/25 20:41 Temperature 36.4 C 36.8 C Pulse Rate 77 77 71 Respiratory Rate 16 16 18 Blood Pressure 112/62 130/72 Pulse Oximetry 96 96 95 Oxygen Delivery Room Air 10/13/25 06:00 Temperature 36.6 C Pulse Rate 75 Respiratory Rate 18 Blood Pressure 167/72 H Pulse Oximetry 99 Oxygen Delivery Exam Const: General: comfortable and no acute distress HENMT: Mouth: Yes moist mucous membranes Eyes: General: appearance normal, both eyes and all related structures Neck: Neck: supple and no JVD Resp: Effort & Inspection: normal respiratory effort GI: Inspection: non-distended GI Palp: Yes Soft to palpation and No Tenderness to palpation present (GI) Neuro: Cognition (Neuro): normal cognition Speech: normal speech Extrem: Right lower extremity: knee Details: tenderness (diffuse ), swelling (mild palpable effusion ), abnormal ROM Details: pain with active ROM during Details: in extension and in flexion, knee ligament exam abnormal Details: valgus stress test normal Details: laxity noted and varus stress test normal Details: laxity noted and Flavia's Test Details: positive medially and laterally; no ecchymosis, no crepitus, no deformity and no unusual warmth, lower leg Details: normal to inspection, ankle Details: normal to inspection and foot Details: normal capillary refill and vascular exam Details: dorsalis pedis pulse present Psych: Mental Status: mental status grossly normal Affect: normal affect Results Labs 10/13/25 05:31 10/13/25 05:31 Labs: Abnormal lab results 10/13/25 Range/Units 05:31 WBC 19.9 H (4.5-10.0) K/mm3 RBC 2.31 L (4.2-5.4) M/mm3 Hgb 7.5 L (12.0-15.0) g/dL Hct 24.0 L (37.0-47.0) % MCV 103.9 H (80-100) fl MCHC 31.3 L (32-36) g/dl RDW 17.0 H (11.5-14.5) % Plt Count 435 H (150-375) k/mm3 Monocytes % (Manual) 1 L (3-9) % Abs Neuts (Manual) 12.73 H (1.3-6.7) K/mm3 Abs Lymphs (Manual) 5.97 H (1.1-4.5) K/mm3 Potassium 3.0 L (3.4-5.0) mmol/L Chloride 111 H (98-107) mmol/L BUN 25 H (7-17) mg/dL Creatinine 0.66 L (0.7-1.0) mg/dL Calcium 7.0 L (8.4-10.2) mg/dL Total Protein 5.8 L (6.3-8.2) g/dL Albumin 2.3 L (3.5-5.1) g/dL H & H 10/07/25 10/09/25 10/10/25 Range/Units 19:02 05:08 05:29 Hgb 8.5 L 8.4 L 8.6 L (12.0-15.0) g/dL Hct 27.0 L 26.3 L 27.1 L (37.0-47.0) % 10/11/25 10/12/25 10/13/25 Range/Units 06:08 05:15 05:31 Hgb 8.7 L 8.8 L 7.5 L (12.0-15.0) g/dL Hct 27.7 L 27.9 L 24.0 L (37.0-47.0) % All other labs normal. Joint Aspiration & Injection Pre-Procedure Pre-procedure care: Consent was obtained, Procedures/risks were explained, Questions were answered, Correct patient identified and Correct side and site confirmed Post Procedure Patient tolerated the procedure well?: Tolerated procedure well Position Position: Laying Location: right Site Prepped Technique: aseptic technique with povidone-iodine and alcohol Anesthetic: lidocaine 1% plain (5ML ) Fluid: Serosanguinous Fluid Withdrawn (mL): 7 Sterile Dressing Sterile Dressing: Adhesive KNEE Knee Procedure: lateral joint line Manual palpation
[2025-10-13 10:23] VITALS: PULSE 80
[2025-10-13] MEDS: PANTOPRAZOLE 40 MG TABLET PO (10:23)
[2025-10-13] MEDS: METOPROLOL SUCCINATE EXT REL 25 MG TABCR PO (10:23)
[2025-10-13] MEDS: FUROSEMIDE 40 MG TABLET PO (10:23)
[2025-10-13] MEDS: CLOPIDOGREL BISULFATE 75 MG TABLET PO (10:23)
[2025-10-13] MEDS: POTASSIUM CHLORIDE 20 MEQ ER TABLET 40 MEQ PO (10:23)
[2025-10-13] MEDS: PREGABALIN (*CRX) 50 MG CAPSULE PO ×2 (10:23→16:48)
[2025-10-13] MEDS: ASPIRIN 81 MG CHEWABLE TABLET PO (10:23)
[2025-10-13] MEDS: FERROUS SULFATE 325 MG TABLET PO ×2 (10:24→16:48)
[2025-10-13 14:00] VITALS: BP 126/67; PULSE 74; RESP 20; TEMP 36.5; O2SAT 98
[2025-10-13 16:03] LABS: Color Synovial Fluid Red (Colorless); Source Synovial Fluid Rt Knee Syn Fluid
[2025-10-13 16:04] LABS: Lymphocytes Synovial Fluid 58 %; Monocytes Synovial Fluid 5 %; Neutrophils Synovial Fluid 37 % (0-25)
[2025-10-13] MEDS: METOCLOPRAMIDE HCL 5 MG TABLET PO (16:48)
[2025-10-13 17:29] LABS: CRP 1.0 mg/dL (<1.0)
[2025-10-13 20:59] VITALS: BP 126/65; PULSE 68; RESP 18; TEMP 36.3; O2SAT 99
[2025-10-13] MEDS: levoFLOXacin 750 MG/D5W 150 ML 750 MG/150 ML BAG 100 MG IVPB (23:31)
[2025-10-14 05:09] VITALS: BP 164/74; PULSE 65; RESP 18; TEMP 36.4; O2SAT 96
[2025-10-14] MEDS: CENTRAL LINE FLUSH 10 ML IV PUSH ×3 (05:36→22:00)
[2025-10-14] MEDS: METOCLOPRAMIDE HCL 5 MG TABLET PO ×2 (05:36→17:11)
[2025-10-14 05:54] LABS: Hematocrit 28.8 % (37.0-47.0); Hemoglobin 9.1 g/dL (12.0-15.0); Mean Corpuscular HGB Conc 31.6 g/dl (32-36); Mean Corpuscular Hemoglobin 32.6 pg (26-34); Mean Corpuscular Volume 103.2 fl (80-100); Platelet Count Result 568 k/mm3 (150-375); Red Blood Count 2.79 M/mm3 (4.2-5.4); White Blood Count 25.2 K/mm3 (4.5-10.0)
[2025-10-14 06:13] LABS: Alanine Aminotransferase 16 U/L (6-35); Albumin Level 2.9 g/dL (3.5-5.1); Alkaline Phosphatase 74 U/L (38-126); Anion Gap 5 mmol/L (4-12); Aspartate Amino Transferase 46 U/L (14-36); Bilirubin,Total 0.3 mg/dL (0.2-1.3); Blood Urea Nitrogen 27 mg/dL (7-17); Calcium 8.6 mg/dL (8.4-10.2); Carbon Dioxide 26 mmol/L (22-30); Chloride 105 mmol/L (98-107); Estimated CRCL calculation 56 ml/min; Estimated Glomerular Filt Rate > 60; Glucose 89 mg/dL (65-110); Magnesium 1.8 mg/dL (1.6-2.3); Potassium 4.0 mmol/L (3.4-5.0); Sodium 136 mmol/L (137-145); Total Protein 7.0 g/dL (6.3-8.2)
[2025-10-14 06:30] LABS: Band Neutrophils Percent 11 % (0-6); Lymphocytes Absolute Manual 8.06 K/mm3 (1.1-4.5); Lymphocytes Percent Manual 32 % (18-44); Monocytes Absolute Manual 0.25 K/mm3 (0.1-0.90); Monocytes Percent Manual 1 % (3-9); Neutrophils Absolute Manual 15.12 K/mm3 (1.3-6.7); Neutrophils Percent Manual 49 % (46-73); Total Cells Counted 100
[2025-10-14 06:31] LABS: Eosinophils Absolute Manual 0.25 K/mm3 (0.02-0.50); Eosinophils Percent Manual 1 % (0-4); Metamyelocytes Percent 2 %; Myelocytes Percent 4 %
[2025-10-14 06:32] LABS: Anisocytosis 1+; Basophilic Stippling Occasional; Hypochromasia 2+; Polychromasia 1+; Schistocytes None Seen; Tear Drop Cells Occasional
--- NOTE | 2025-10-14 07:00 | P.PNIM_ITS ---
Progress Note: A&P Assessment and Plan (1) Pneumonia: Qualifiers: Laterality: bilateral Lung location: lower lobe of lung Pneumonia type: due to unspecified organism Qualified Code(s): J18.9 - Pneumonia, unspecified organism Code(s): J18.9 - Pneumonia, unspecified organism Status: Acute Assessment and Plan: * Chest XR: Cardiomegaly, severe atherosclerotic aorta and mild congestive changes of lungs with small bilateral pleural effusions. * WBC wnl * sputum and blood cultures pending * the patient is complaining of weakness. She is wheelchair dependent * PT OT evaluation * Blood cultures pending * Weaned off o2 supplementation * O2 sat @ 98% * Repeat CXR 10/11: Persistent left basilar atelectasis and/or airspace disease, with small probable effusion. Improving but persistent interstitial pulmonary edema and/or pneumonitis. * Antibiotic course complete (2) Leukocytosis: Code(s): D72.829 - Elevated white blood cell count, unspecified Status: Acute Assessment and Plan: * UA on 10/07 not concerning for infection * Blood cultures on 10/07 no growth * WBC 9.1 -> 10 -> 12.4 -> 18.2 * Chronic steroid use, prednisone 10mg restarted on , concurrent with timing of rise of WBC * Repeat CXR shows improving pneumonia * Repeat UA w/ culture reflex to rule out UTI * No SIRS criteria * Repeat blood cultures pending * WBC 10 -> 12.4 -> 18.2 ->23.7 -> 25.2 (3) Joint swelling: Code(s): M25.40 - Effusion, unspecified joint Status: Acute Assessment and Plan: * Right knee swelling noted, previous episode of septic joint noted in records * Patient reports she was supposed to get another drainage completed but never had orthopedic follow-up since she [facility]. * CT R knee: Dislocated patella. Complex fluid within the joint space which may reflect posttraumatic hemorrhage, distinction from infection is limited. Clinical correlation is required. 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 * Hydrochlorothiazide stopped, IV furosemide started * Swelling continues to improve (5) Hypertension: Qualifiers: Hypertension type: primary hypertension Qualified Code(s): I10 - Essential (primary) hypertension Code(s): I10 - Essential (primary) hypertension Status: Acute Assessment and Plan: * continue with metoprolol * Current BP 156/75 (6) Hyperlipidemia: Code(s): E78.5 - Hyperlipidemia, unspecified Status: Acute Assessment and Plan: * Not on statins (7) Rheumatoid arthritis: Qualifiers: Rheumatoid arthritis location: unspecified site Rheumatoid factor presence: unspecified presence Qualified Code(s): M06.9 - Rheumatoid arthritis, unspecified Code(s): M06.9 - Rheumatoid arthritis, unspecified Status: Acute Assessment and Plan: * continue with her home medications of prednisone, Lyrica, and tramadol (8) Severe protein-calorie malnutrition: Code(s): E43 - Unspecified severe protein-calorie malnutrition Status: Acute Assessment and Plan: * Agree with diagnosis of severe protein calorie malnutrition * Consult campus police officer Subjective Date/time seen: 10/14/25 07:00 Interval history: This is a 75-year-old female patient who is admitted to the hospital for hypoxia and pneumonia. Patient previously seen in the emergency department on 10/05 and diagnosed with bilateral pneumonia returning back to the emergency department on 10/07 with continued difficulty breathing and new oxygen demand/hypoxia. Patient was placed on oxygen 1-2 liters/minute and initiated on levofloxacin 10/14/2025 Patient sitting comfortably in chair at bedside during examination. States that she is feeling better today. Denies any CP, SOB, n/v or abd pain. Does have some R knee tenderness. Knee was aspirated yesterday by ortho, although not enough fluid to analyze. Knee MRI pending. WBC continues to increase, up to 25.2. Pt otherwise feeling great, no adventitious lung sounds. Repeat blood cultures pending. Review of Systems Review of Systems: Patient denies chest pain except when she coughs, denies fever chills, denies nausea or vomiting, denies difficulties urinating or passing bowel movements. All systems reviewed & are unremarkable except as noted in HPI and below Exam Narrative: GENERAL: In no acute respiratory distress, speaks very softly HEAD: Normocephalic, atraumatic. ENT:? Mucous membranes moist. CHEST: Mildly diminished lung sounds throughout, minimally dyspneic per observation. Supplemental oxygen in place HEART: Regular rate and rhythm. ? Normal peripheral pulses. ABDOMEN: Soft, nontender, nondistended. EXTREMITIES: Improving bilateral lower extremity edema, right knee swollen with effusion and tender to the touch. SKIN: Warm dry normal color NEURO: Alert and oriented x3. 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 PSYCH: Normal mood and affect Const: General: cooperative, comfortable, no acute distress, well developed, awake, Physically active, average body habitus and well nourished Nutritional Appearance: average body habitus and well nourished Orientation/consci ousness: oriented to person, oriented to place, oriented to time and patient oriented x3 Limitations: no limitations HENMT: Head: normal to inspection, No palpable skull fracture present, normocephalic, atraumatic and abrasion Ears: hearing grossly normal bilaterally and external ears normal Face/Nose/Sinus: Normal external nose present Eyes: General: appearance normal, both eyes and all related structures Alignment and Position: alignment normal Periorbital: periorbital findings normal Eyelids: eyelids normal Conjunctivae: conjunctivae normal EOM: EOMs intact bilaterally Neck: Neck: normal visual inspection and full ROM Chest: Chest palpation & inspection: normal inspection of the chest Resp: Effort & Inspection: normal respiratory effort Auscultation: clear to auscultation bilaterally Cardio: Palpation: normal PMI Rate: regular rate Rhythm: regular rhythm Heart sounds: S1 normal heart sound present and S2 normal heart sound present Peripheral pulses: Peripheral pulses 2+ throughout GI: Inspection: normal to inspection : General: Yes no CVA tenderness Back/Spine/Pelvis: Back: no CVA tenderness Cervical Spine: cervical ROM normal Skin: General skin exam: normal color Lesions: no lesions Rashes: no rashes Trauma: no lacerations or abrasions Wounds: no wounds Hair: normal Nails: normal Neuro: General: oriented to person, oriented to place, oriented to time and patient oriented x3 Cranial nerves: Yes Normal hearing present Cognition (Neuro): normal cognition Speech: normal speech Motor exam (neuro): 5/5 motor strength present throughout Sensory Exam: normal sensation Extrem: General: normal to inspection Right upper extremity: normal to inspection and shoulder/upper arm Left upper extremity: normal to inspection and shoulder/upper arm Right lower extremity: normal to inspection Left lower extremity: normal to inspection Psych: Appearance: grossly normal Mental Status: mental status grossly normal Speech and movement: Normal speech and movement present Affect: normal affect Attitude: cooperative Thought process: Normal thought process present Insight: Good insight present (Psych) Judgement: Good judgement present (Psych) Objective Data Vital Signs Vital Signs: Vital Signs - 24 hr 10/13/25 10:23 10/13/25 10:32 10/13/25 14:00 Temperature 97.7 F Pulse Rate 80 74 Respiratory Rate 20 Blood Pressure 126/67 Pulse Oximetry 98 Oxygen Delivery Room Air 10/13/25 20:00 10/13/25 20:59 10/14/25 05:09 Temperature 97.3 F L 97.6 F Pulse Rate 68 65 Respiratory Rate 18 18 Blood Pressure 126/65 164/74 H Pulse Oximetry 99 96 Oxygen Delivery Room Air Intake/Output Intake/Output: Intake & Output 10/11/25 10/12/25 10/13/25 10/14/25 23:59 23:59 23:59 23:59 Intake Total 1230 1194 980 240 Output Total 750 1050 1100 600 Balance 480 307 -120 360 Meds/Results Medications: Active Medications Generic Name Dose Route Start Last Admin Trade Name Freq PRN Reason Stop Dose Admin Aspirin 81 mg 10/08/25 08:00 10/13/25 10:23 Aspirin 81 Mg Chewable Tablet PO 81 mg DAILY@0800 [facility] Administration Bisacodyl 10 mg 10/08/25 01:50 Bisacodyl 5 Mg Tablet Ec PO QAM PRN Constipation Clopidogrel Bisulfate 75 mg 10/08/25 09:00 10/13/25 10:23 Clopidogrel Bisulfate 75 Mg Tablet PO 75 mg QAM [facility]IROSLA[facility] Administration Ferrous Sulfate 325 mg 10/08/25 08:00 10/13/25 16:48 Ferrous Sulfate 325 Mg Tablet PO 325 mg BIDWM [facility] Administration Furosemide 40 mg 10/10/25 09:00 10/13/25 10:23 Furosemide 40 Mg Tablet PO 40 mg DAILY MIROSLA[facility] Administration Heparin Sodium (Beef Lung) 50 units 10/08/25 09:00 10/13/25 10:23 Heparin Flush 50 Units/5 Ml Syringe IV PUSH 50 units QAM MIROSLAVA Administration Heparin Sodium (Beef Lung) 50 units 10/07/25 23:18 10/08/25 01:15 Heparin Flush 50 Units/5 Ml Syringe IV PUSH 50 units PRN PRN Administration after intermittent infusion Heparin Sodium (Beef Lung) 50 units 10/07/25 23:18 10/10/25 05:32 Heparin Flush 50 Units/5 Ml Syringe IV PUSH 50 units PRN PRN Administration after blood draws Heparin Sodium (Porcine) 500 units 10/07/25 23:18 Heparin Sodium Lock Flush 500 Units/5 Ml Syringe IV PUSH PRN PRN see comments below Levofloxacin/Dextrose 750 mg in 150 mls @ 100 mls/hr 10/08/25 23:00 10/13/25 23:31 Levaquin 750 Mg/D5w 150 Ml IVPB 100 mls/hr Q24H [facility]IROSLA[facility] Administration Lidocaine 1 patch 10/14/25 09:00 Lidocaine 5% Patch TRANSDERM DAILY [facility] Menthol/Methyl Salicylate 1 applic 10/08/25 01:50 Menthol 10% / Methyl Salicylate 15% 57 Gm Tube TOPICAL BID PRN muscle pain Metoclopramide HCl 5 mg 10/08/25 06:30 10/14/25 05:36 Metoclopramide Hcl 5 Mg Tablet PO 5 mg BIDAC [facility] Administration Metoprolol Succinate 25 mg 10/08/25 09:00 10/13/25 10:23 Metoprolol Succinate Ext Rel 25 Mg Tabcr PO 25 mg QAM [facility]OSLA[facility] Administration Pantoprazole Sodium 40 mg 10/08/25 09:00 10/13/25 10:23 Pantoprazole 40 Mg Tablet PO 40 mg DAILY [facility] Administration Polyethylene Glycol 17 gm 10/08/25 09:00 10/13/25 13:09 Polyethylene Glycol 3350 17 Gm Powd.Pack PO Not Given DAILY MIROSLA[facility] Prednisone 10 mg 10/08/25 08:00 10/13/25 10:23 Prednisone 10 Mg Tablet PO 10 mg DAILY@0800 [facility] Administration Pregabalin 50 mg 10/08/25 09:00 10/13/25 16:48 Pregabalin (*Crx) 50 Mg Capsule PO 50 mg BID [facility] Administration Senna 8.6 mg 10/08/25 21:00 10/13/25 20:47 Sennosides 8.6 Mg Tablet PO Not Given HS MIROSLAVA Sodium Chloride 10 ml 10/08/25 06:00 10/14/25 05:36 Central Line Flush IV PUSH 10 ml Q8HR [facility]IROSLA[facility] Administration Tramadol HCl 50 mg 10/08/25 01:50 Tramadol Hcl (*Crx) 50 Mg Tablet PO Q12H PRN Pain 4-6 Radiology Results: ITS Impressions Abdomen/Pelvis CT 10/07/25 20:32 IMPRESSION: 1. Chest X-Ray 10/11/25 12:20 IMPRESSION: 1. Persistent left basilar atelectasis and/or airspace disease, with small probable effusion. 2. Improving but persistent interstitial pulmonary edema and/or pneumonitis. Knee CT 10/12/25 15:14 IMPRESSION: Dislocated patella. Complex fluid within the joint space which may reflect posttraumatic hemorrhage, distinction from infection is limited. Clinical correlation is required. Clinically if there is concern for infection contrast-enhanced MRI is recommended Labs Labs: Laboratory Results - last 24 hr 10/13/25 10/13/25 10/13/25 05:31 15:17 17:04 WBC 19.9 H RBC 2.31 L Hgb 7.5 L Hct 24.0 L MCV 103.9 H MCH 32.5 MCHC 31.3 L RDW 17.0 H Plt Count 435 H MPV 9.1 Immature Gran % (Auto) Not Reportable Neut % (Auto) Not Reportable Lymph % (Auto) Not Reportable [place] % (Auto) Not Reportable Eos % (Auto) Not Reportable Baso % (Auto) Not Reportable Lymph # (Auto) Not Reportable [place] # (Auto) Not Reportable Eos # (Auto) Not Reportable Baso # (Auto) Not Reportable Abs Immat Gran (auto) Not Reportable Absolute Neuts (auto) Not Reportable Absolute Nucleated RBC Not Reportable Total Counted 100 Neutrophils % (Manual) 58 Band Neutrophils % 6 Lymphocytes % (Manual) 30 Monocytes % (Manual) 1 L Eosinophils % (Manual) 2 Metamyelocytes % 3 Myelocytes % Nucleated RBC % Not Reportable Abs Neuts (Manual) 12.73 H Abs Lymphs (Manual) 5.97 H Abs Monocytes (Manual) 0.19 Absolute Eos (Manual) 0.39 Nucleated RBCs 2 Smudge Cells Moderate Platelet Estimate Increased Large Platelets Polychromasia 1+ Hypochromasia 2+ Basophilic Stippling Anisocytosis 2+ Target Cells Occasional Tear Drop Cells 1+ Ovalocytes 1+ Schistocytes Occasional ESR > 140 H Sodium Potassium Chloride Carbon Dioxide Anion Gap BUN Creatinine Estim Creat Clear Calc Estimated GFR Glucose Calcium Magnesium Total Bilirubin AST ALT Alkaline Phosphatase C-Reactive Protein 1.0 Total Protein Albumin Synovial Source Rt knee syn fluid Synovial Color Red Synovial Appearance Bloody A Synovial RBC TNP Synovial Nuc Cells TNP Synovial Neutrophils 37 H Synovial Lymphocytes 58 Synovial Monocytes 5 Synovial Crystals None seen 10/14/25 05:35 WBC 25.2 H RBC 2.79 L Hgb 9.1 L Hct 28.8 L MCV 103.2 H MCH 32.6 MCHC 31.6 L RDW 17.5 H Plt Count 568 H MPV 8.9 Immature Gran % (Auto) Not Reportable Neut % (Auto) Not Reportable Lymph % (Auto) Not Reportable [place] % (Auto) Not Reportable Eos % (Auto) Not Reportable Baso % (Auto) Not Reportable Lymph # (Auto) Not Reportable [place] # (Auto) Not Reportable Eos # (Auto) Not Reportable Baso # (Auto) Not Reportable Abs Immat Gran (auto) Not Reportable Absolute Neuts (auto) Not Reportable Absolute Nucleated RBC Not Reportable Total Counted 100 Neutrophils % (Manual) 49 Band Neutrophils % 11 H Lymphocytes % (Manual) 32 Monocytes % (Manual) 1 L Eosinophils % (Manual) 1 Metamyelocytes % 2 Myelocytes % 4 Nucleated RBC % Not Reportable Abs Neuts (Manual) 15.12 H Abs Lymphs (Manual) 8.06 H Abs Monocytes (Manual) 0.25 Absolute Eos (Manual) 0.25 Nucleated RBCs 1 Smudge Cells Platelet Estimate Increased Large Platelets Present Polychromasia 1+ Hypochromasia 2+ Basophilic Stippling Occasional Anisocytosis 1+ Target Cells Tear Drop Cells Occasional Ovalocytes Schistocytes None seen ESR Sodium 136 L Potassium 4.0 Chloride 105 Carbon Dioxide 26 Anion Gap 5 BUN 27 H Creatinine 0.67 L Estim Creat Clear Calc 56 Estimated GFR > 60 Glucose 89 Calcium 8.6 Magnesium 1.8 Total Bilirubin 0.3 AST 46 H ALT 16 Alkaline Phosphatase 74 C-Reactive Protein Total Protein 7.0 Albumin 2.9 L Synovial Source Synovial Color Synovial Appearance Synovial RBC Synovial Nuc Cells Synovial Neutrophils Synovial Lymphocytes Synovial Monocytes Synovial Crystals Quality VTE Prophylaxis VTE prophylaxis: mechanical ordered
[2025-10-14 09:21] VITALS: BP 129/81; PULSE 78
[2025-10-14] MEDS: ASPIRIN 81 MG CHEWABLE TABLET PO (09:22)
[2025-10-14] MEDS: FERROUS SULFATE 325 MG TABLET PO ×2 (09:22→17:11)
[2025-10-14 09:23] VITALS: PULSE 78
[2025-10-14] MEDS: FUROSEMIDE 40 MG TABLET PO (09:23)
[2025-10-14] MEDS: PREGABALIN (*CRX) 50 MG CAPSULE PO ×2 (09:23→17:11)
[2025-10-14] MEDS: CLOPIDOGREL BISULFATE 75 MG TABLET PO (09:23)
[2025-10-14] MEDS: PANTOPRAZOLE 40 MG TABLET PO (09:23)
[2025-10-14] MEDS: METOPROLOL SUCCINATE EXT REL 25 MG TABCR PO (09:23)
--- NOTE | 2025-10-14 09:36 | P.PNOP_ITS ---
Progress Note: A&P Assessment and Plan (1) Osteoarthritis of right knee: Qualifiers: Osteoarthritis type: primary Qualified Code(s): M17.11 - Unilateral primary osteoarthritis, right knee Code(s): M17.11 - Unilateral primary osteoarthritis, right knee Status: Acute Assessment and Plan: 75-year-old female who was presented to the emergency room with subsequent hospitalizations x3 since November for right knee joint pain and effusion. She has previously been seen by Dr. Bello. Radiographs have consistently revealed severe degenerative changes, most significant in the lateral compartment with tilt of the patella noted on previous radiographs as well. 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 Right knee aspiration performed yesterday. Cell count unable to be fully performed due to clotting despite use of purple tube. Gram stain negative for organisms, many WBCs seen. CRP normal, improved from previous admissions. ESR remains elevated, no change from previous. Suspect RA flare. Recommend knee injection with cortisone for pain control. Obtain consent. Plan to perform following MRI which was ordered by the hospitalist service. Patient is not fully wheelchair bound. She does ambulate with a walker and perform transfers. Continue PT/OT. WBAT. Use of Hinged Knee Brace for stability. Continue ice/Lidocaine patch. Patient may follow up with her preferred orthopedist, Dr. Bello, at discharge if desired. She may also follow up in our office if preferred. (2) Rheumatoid arthritis: Qualifiers: Rheumatoid arthritis location: unspecified site Rheumatoid factor presence: unspecified presence Qualified Code(s): M06.9 - Rheumatoid arthritis, unspecified Code(s): M06.9 - Rheumatoid arthritis, unspecified Status: Acute Assessment and Plan: Recommend follow-up with a rheumatoid arthritis physician at discharge. May benefit from closer medication management. She does see Dr. Gamez. (3) Joint swelling: Code(s): M25.40 - Effusion, unspecified joint Status: Acute Assessment and Plan: CRP normal. ESR elevated, unchanged from previous. Gram stain negative for organisms, many WBCs. Known history of RA. Not treated. Supect RA flare. (4) Septic joint of right knee joint: Qualifiers: Septic arthritis organism: due to unspecified organism Qualified Code(s): M00.9 - Pyogenic arthritis, unspecified Code(s): M00.9 - Pyogenic arthritis, unspecified Status: Acute Assessment and Plan: Gram Stain NEGATIVE for organisms. Many WBCs seen. Patient with known history of RA. CRP normal, improvement from previous. ESR still elevated which has not changed in the last several admission. Low suspicion for septic knee joint at this time. Suspect RA flare. Plan Reviewed history, exam, radiographs and current labs with attending MD and covering surgeon, Dr. Chambers, who agrees with current plan as indicated above. No further recommendations from Dr. Chambers at this time. Time Spent With Patient Time with patient: less than 15 minutes Subjective Subjective Date/Time Seen: 10/14/25 09:36 Interval history: 1 day s/p right knee aspiration. Mild c/o soreness right knee today. She reports good improvement in pain with ambulation WITH the knee brace as ordered. Review of Systems 2 Review of Systems: All systems reviewed & are unremarkable except as noted in HPI and below Exam Const: General: comfortable and no acute distress HENMT: Mouth: Yes moist mucous membranes Eyes: General: appearance normal, both eyes and all related structures Neck: Neck: supple and no JVD Resp: Effort & Inspection: normal respiratory effort GI: Inspection: non-distended GI Palp: Yes Soft to palpation and No Tenderness to palpation present (GI) Neuro: Cognition (Neuro): normal cognition Speech: normal speech Extrem: Right lower extremity: knee Details: tenderness (diffuse ), swelling (mild palpable effusion ), abnormal ROM Details: pain with active ROM during Details: in extension and in flexion, knee ligament exam abnormal Details: valgus stress test normal Details: laxity noted and varus stress test normal Details: laxity noted and Flavia's Test Details: positive medially and laterally; no ecchymosis, no crepitus, no deformity and no unusual warmth, lower leg Details: normal to inspection, ankle Details: normal to inspection and foot Details: normal capillary refill and vascular exam Details: dorsalis pedis pulse present Psych: Mental Status: mental status grossly normal Affect: normal affect Objective Data Vital Signs Vital Signs: Vital Signs - 24 hr 10/13/25 10:23 10/13/25 10:32 10/13/25 14:00 Temperature 36.5 C Pulse Rate 80 74 Respiratory Rate 20 Blood Pressure 126/67 Pulse Oximetry 98 Oxygen Delivery Room Air 10/13/25 20:00 10/13/25 20:59 10/14/25 05:09 Temperature 36.3 C L 36.4 C Pulse Rate 68 65 Respiratory Rate 18 18 Blood Pressure 126/65 164/74 H Pulse Oximetry 99 96 Oxygen Delivery Room Air 10/14/25 09:21 10/14/25 09:23 Temperature Pulse Rate 78 78 Respiratory Rate Blood Pressure 129/81 Pulse Oximetry Oxygen Delivery Intake/Output Intake/Output: Intake & Output 10/11/25 10/12/25 10/13/25 10/14/25 23:59 23:59 23:59 23:59 Intake Total 1230 1194 980 360 Output Total 750 1050 1100 800 Balance 480 732 -830 -459 Meds/Results Medications: Active Medications Generic Name Dose Route Start Last Admin Trade Name Freq PRN Reason Stop Dose Admin Aspirin 81 mg 10/08/25 08:00 10/14/25 09:22 Aspirin 81 Mg Chewable Tablet PO 81 mg DAILY@0800 [facility] Administration Bisacodyl 10 mg 10/08/25 01:50 Bisacodyl 5 Mg Tablet Ec PO QAM PRN Constipation Clopidogrel Bisulfate 75 mg 10/08/25 09:00 10/14/25 09:23 Clopidogrel Bisulfate 75 Mg Tablet PO 75 mg QAM [facility] Administration Ferrous Sulfate 325 mg 10/08/25 08:00 10/14/25 09:22 Ferrous Sulfate 325 Mg Tablet PO 325 mg BIDWM [facility] Administration Furosemide 40 mg 10/10/25 09:00 10/14/25 09:23 Furosemide 40 Mg Tablet PO 40 mg DAILY [facility] Administration Heparin Sodium (Beef Lung) 50 units 10/08/25 09:00 10/14/25 09:23 Heparin Flush 50 Units/5 Ml Syringe IV PUSH 50 units QAM [facility] Administration Heparin Sodium (Beef Lung) 50 units 10/07/25 23:18 10/08/25 01:15 Heparin Flush 50 Units/5 Ml Syringe IV PUSH 50 units PRN PRN Administration after intermittent infusion Heparin Sodium (Beef Lung) 50 units 10/07/25 23:18 10/10/25 05:32 Heparin Flush 50 Units/5 Ml Syringe IV PUSH 50 units PRN PRN Administration after blood draws Heparin Sodium (Porcine) 500 units 10/07/25 23:18 Heparin Sodium Lock Flush 500 Units/5 Ml Syringe IV PUSH PRN PRN see comments below Levofloxacin/Dextrose 750 mg in 150 mls @ 100 mls/hr 10/08/25 23:00 10/13/25 23:31 Levaquin 750 Mg/D5w 150 Ml IVPB 100 mls/hr Q24H [facility] Administration Lidocaine 1 patch 10/14/25 09:00 Lidocaine 5% Patch TRANSDERM DAILY [facility] Menthol/Methyl Salicylate 1 applic 10/08/25 01:50 Menthol 10% / Methyl Salicylate 15% 57 Gm Tube TOPICAL BID PRN muscle pain Metoclopramide HCl 5 mg 10/08/25 06:30 10/14/25 05:36 Metoclopramide Hcl 5 Mg Tablet PO 5 mg BIDAC [facility] Administration Metoprolol Succinate 25 mg 10/08/25 09:00 10/14/25 09:23 Metoprolol Succinate Ext Rel 25 Mg Tabcr PO 25 mg QAM [facility] Administration Pantoprazole Sodium 40 mg 10/08/25 09:00 10/14/25 09:23 Pantoprazole 40 Mg Tablet PO 40 mg DAILY [facility] Administration Polyethylene Glycol 17 gm 10/08/25 09:00 10/14/25 09:20 Polyethylene Glycol 3350 17 Gm Powd.Pack PO Not Given DAILY [facility] Prednisone 10 mg 10/08/25 08:00 10/14/25 09:23 Prednisone 10 Mg Tablet PO 10 mg DAILY@0800 [facility] Administration Pregabalin 50 mg 10/08/25 09:00 10/14/25 09:23 Pregabalin (*Crx) 50 Mg Capsule PO 50 mg BID [facility] Administration Senna 8.6 mg 10/08/25 21:00 10/13/25 20:47 Sennosides 8.6 Mg Tablet PO Not Given HS [facility] Sodium Chloride 10 ml 10/08/25 06:00 10/14/25 05:36 Central Line Flush IV PUSH 10 ml Q8HR [facility] Administration Tramadol HCl 50 mg 10/08/25 01:50 Tramadol Hcl (*Crx) 50 Mg Tablet PO Q12H PRN Pain 4-6 Radiology Results: ITS Impressions Abdomen/Pelvis CT 10/07/25 20:32 IMPRESSION: 1. Chest X-Ray 10/11/25 12:20 IMPRESSION: 1. Persistent left basilar atelectasis and/or airspace disease, with small probable effusion. 2. Improving but persistent interstitial pulmonary edema and/or pneumonitis. Knee CT 11/23/25 15:14 IMPRESSION: Dislocated patella. Complex fluid within the joint space which may reflect posttraumatic hemorrhage, distinction from infection is limited. Clinical correlation is required. Clinically if there is concern for infection contrast-enhanced MRI is recommended Labs Labs: Laboratory Results - last 24 hr 10/13/25 10/13/25 10/14/25 15:17 17:04 05:35 WBC 25.2 H RBC 2.79 L Hgb 9.1 L Hct 28.8 L MCV 103.2 H MCH 32.6 MCHC 31.6 L RDW 17.5 H Plt Count 568 H MPV 8.9 Immature Gran % (Auto) Not Reportable Neut % (Auto) Not Reportable Lymph % (Auto) Not Reportable Tama % (Auto) Not Reportable Eos % (Auto) Not Reportable Baso % (Auto) Not Reportable Lymph # (Auto) Not Reportable Tama # (Auto) Not Reportable Eos # (Auto) Not Reportable Baso # (Auto) Not Reportable Abs Immat Gran (auto) Not Reportable Absolute Neuts (auto) Not Reportable Absolute Nucleated RBC Not Reportable Total Counted 100 Neutrophils % (Manual) 49 Band Neutrophils % 11 H Lymphocytes % (Manual) 32 Monocytes % (Manual) 1 L Eosinophils % (Manual) 1 Metamyelocytes % 2 Myelocytes % 4 Nucleated RBC % Not Reportable Abs Neuts (Manual) 15.12 H Abs Lymphs (Manual) 8.06 H Abs Monocytes (Manual) 0.25 Absolute Eos (Manual) 0.25 Nucleated RBCs 1 Platelet Estimate Increased Large Platelets Present Polychromasia 1+ Hypochromasia 2+ Basophilic Stippling Occasional Anisocytosis 1+ Tear Drop Cells Occasional Schistocytes None seen ESR > 140 H Sodium 136 L Potassium 4.0 Chloride 105 Carbon Dioxide 26 Anion Gap 5 BUN 27 H Creatinine 0.67 L Estim Creat Clear Calc 56 Estimated GFR > 60 Glucose 89 Calcium 8.6 Magnesium 1.8 Total Bilirubin 0.3 AST 46 H ALT 16 Alkaline Phosphatase 74 C-Reactive Protein 1.0 Total Protein 7.0 Albumin 2.9 L Synovial Source Rt knee syn fluid Synovial Color Red Synovial Appearance Bloody A Synovial RBC TNP Synovial Nuc Cells TNP Synovial Neutrophils 37 H Synovial Lymphocytes 58 Synovial Monocytes 5 Synovial Crystals None seen
--- NOTE | 2025-10-14 09:44 | PCNFU ---
Nutrition Follow-Up Complete: Severe Protein Calorie Malnutrition as related to inadequate protein energy intake with increased protein-energy needs in setting of acute disease (pneumonia) as evidenced by minimal oral intake <75% in 7 days; significant weight loss of 7 ibs (5%) 2.5 weeks; moderate muscle wasting (temporalis, clavicle) and moderate subcutaneous fat loss (orbital fat pads). Meet estimated nutritional needs - Progressing with improved intake Goal: Pt current nutrition is Regular. Ensure Plus BID (350 kcal, 20 g protein) and nutritional ice cream BID (270 kcal, 9 g protein) Nutrition recommendation: No new recommendations. Continue current nutrition care plan and orders. Agree with orders Last recorded weight is 70.9 kg. Bowel Motility: +BM 2 10/14 Labs Reviewed: Hgb 9.2, Hct 28.8, Alb 2.9, Na 136, BUN 27, Cre 0.67 Meds Noted: Reglan, miralax, lasix, protonix Skin: No skin issues Additional Notes: Intakes improved 50-75%. COntinue with current orders. Will monitor weight, labs, skin, diet orders, meds every 5 days.
[2025-10-14 14:00] VITALS: BP 143/71; PULSE 78; RESP 20; TEMP 36.8; O2SAT 100
[2025-10-14] MEDS: traMADol HCL (*CRX) 50 MG TABLET PO (15:48)
[2025-10-14] MEDS: LIDOCAINE 5% PATCH 1 PATCH TRANSDERM (15:48)
--- NOTE | 2025-10-14 15:59 | PM.OP ---
Procedure Note - Brief Procedure Note - Brief Date of procedure: 10/14/25 Pneumonia with failure of outpatient treatment Post-op diagnosis: Same Procedure performed: Right Knee Injection Surgeon: Tashia Zaman APRN Anesthesia: local Findings: 75 year old female indicated for right knee joint injection for RA and severe DJD. The risks of injection were reviewed including but not limited to skin color changes, atrophy of the soft tissue, tendon or soft tissue rupture, joint degeneration, hyper inflammatory response, allergic reaction, continued pain or dysfunction. Specific risks of the procedure including deep infection or soft tissue rupture or recurrence of symptoms reviewed. No guarantees were offered. The patient understands the need for possible further treatment. Injection performed with 80mg methlyprednisone, tolerated well. Post injection instructions reviewed. Description of procedure: Right Knee Joint Injection Estimated blood loss (mL): 0 Total Tourniquet Time: 0 IV fluids (mL): 0 Urine output (mL): 600 Drains: No Packing: No Pathology: None sent Complications: No immediate complications Condition: Stable Disposition: No change Joint Aspiration & Injection Pre-Procedure Pre-procedure care: Consent was obtained, Procedures/risks were explained, Questions were answered, Correct patient identified and Correct side and site confirmed Post Procedure Patient tolerated the procedure well?: Tolerated procedure well Position Position: Sitting Location: right Site Prepped Technique: sterile technique Anesthetic: lidocaine 1% plain (2mL ) and marcaine .05% (2mL ) Fluid Withdrawn (mL): 0 Sterile Dressing Sterile Dressing: Adhesive KNEE Knee Procedure: medial joint line Manual palpation
[2025-10-14 19:59] VITALS: BP 116/62; PULSE 81; RESP 18; TEMP 36.9; O2SAT 95
[2025-10-14 20:00] VITALS: PULSE 81; RESP 18; O2SAT 95
[2025-10-15 04:46] VITALS: BP 162/67; PULSE 67; RESP 18; TEMP 36.6; O2SAT 98
[2025-10-15] MEDS: CENTRAL LINE FLUSH 10 ML IV PUSH ×3 (05:10→22:00)
[2025-10-15 05:31] LABS: Hematocrit 29.2 % (37.0-47.0); Hemoglobin 9.2 g/dL (12.0-15.0); Mean Corpuscular HGB Conc 31.5 g/dl (32-36); Mean Corpuscular Hemoglobin 32.6 pg (26-34); Mean Corpuscular Volume 103.5 fl (80-100); Platelet Count Result 599 k/mm3 (150-375); Red Blood Count 2.82 M/mm3 (4.2-5.4); White Blood Count 27.6 K/mm3 (4.5-10.0)
[2025-10-15 05:44] LABS: Alanine Aminotransferase 14 U/L (6-35); Albumin Level 2.9 g/dL (3.5-5.1); Alkaline Phosphatase 77 U/L (38-126); Anion Gap 1 mmol/L (4-12); Aspartate Amino Transferase 33 U/L (14-36); Bilirubin,Total 0.3 mg/dL (0.2-1.3); Blood Urea Nitrogen 31 mg/dL (7-17); Calcium 8.5 mg/dL (8.4-10.2); Carbon Dioxide 28 mmol/L (22-30); Chloride 108 mmol/L (98-107); Estimated CRCL calculation 50 ml/min; Estimated Glomerular Filt Rate > 60; Glucose 89 mg/dL (65-110); Magnesium 2.0 mg/dL (1.6-2.3); Potassium 3.9 mmol/L (3.4-5.0); Sodium 137 mmol/L (137-145); Total Protein 6.8 g/dL (6.3-8.2)
[2025-10-15 06:14] LABS: Band Neutrophils Percent 5 % (0-6); Basophils Absolute Manual 0.55 K/mm3 (0.0-0.1); Basophils Percent Manual 2 % (0-1); Lymphocytes Absolute Manual 4.69 K/mm3 (1.1-4.5); Lymphocytes Percent Manual 17.0 % (18-44); Metamyelocytes Percent 1 %; Monocytes Absolute Manual 1.10 K/mm3 (0.1-0.90); Monocytes Percent Manual 4 % (3-9); Neutrophils Absolute Manual 20.97 K/mm3 (1.3-6.7); Neutrophils Percent Manual 71 % (46-73); Total Cells Counted 100
[2025-10-15 06:15] LABS: Anisocytosis 1+; Schistocytes None Seen
[2025-10-15 06:16] LABS: Hypochromasia Occasional
[2025-10-15 07:01] LABS: Smudge Cells PRESENT
[2025-10-15] MEDS: METOCLOPRAMIDE HCL 5 MG TABLET PO ×2 (07:41→16:34)
--- NOTE | 2025-10-15 07:52 | P.PNIM_ITS ---
Progress Note: A&P Assessment and Plan (1) Leukocytosis: Code(s): D72.829 - Elevated white blood cell count, unspecified Status: Acute Assessment and Plan: -UA on 10/07 not concerning for infection -Blood cultures on 10/07 no growth -WBC continues to uptrend, 27 today -Chronic steroid use, patient reports she was restarted on prednisone in July - Also received R knee steroid injection 10/14 -Repeat CXR shows improving pneumonia -No SIRS criteria -Repeat blood cultures pending - DDx - hematologic disorder?, RA flare, steroid-induced - ID and hematology consulted, appreciate recs (2) Pneumonia: Qualifiers: Laterality: bilateral Lung location: lower lobe of lung Pneumonia type: due to unspecified organism Qualified Code(s): J18.9 - Pneumonia, unspecified organism Code(s): J18.9 - Pneumonia, unspecified organism Status: Acute Assessment and Plan: -Chest XR: Cardiomegaly, severe atherosclerotic aorta and mild congestive changes of lungs with small bilateral pleural effusions. -WBC wnl -sputum and blood cultures pending -the patient is complaining of weakness. She is wheelchair dependent -PT OT evaluation -Blood cultures NGTD -Weaned off o2 supplementation -Repeat CXR 10/11: Persistent left basilar atelectasis and/or airspace disease, with small probable effusion. Improving but persistent interstitial pulmonary edema and/or pneumonitis. -Antibiotic course complete (3) Joint swelling: Code(s): M25.40 - Effusion, unspecified joint Status: Acute Assessment and Plan: -Right knee swelling noted, previous episode of septic joint noted in records -Patient reports she was supposed to get another drainage completed but never had orthopedic follow-up since she has been in care home facility. - MRI R knee with advanced grade 4 degenerative changes, chronic complex tear of the medial meniscus and lateral meniscus, large effusion with debris, acute osteochondral loose bodies -s/p L knee aspiration 10/13 Gram stain negative for organisms, many WBCs seen, Cell count unable to be fully performed due to clotting despite use of purple tube - ortho followed -based on synovial fluid, Gram stain and imaging, low suspicion for infection. Suspect chornic changes. Recommended cortisone injection, continued use of knee brace, walker and offloading, weight-bearing as tolerated. CRP normal, ESR remains elevated -Continue PT/OT, WBAT, ice/lidocaine patch (4) Congestive heart failure: Code(s): I50.9 - Heart failure, unspecified Status: Acute Assessment and Plan: -echo 09/13 heart failure with preserved ejection fraction, hyperdynamic LVEF and grade 1 diastolic dysfunction per echocardiogram last month. -Hydrochlorothiazide stopped, s/p IV Lasix - transitioned to PO -Swelling continues to improve (5) Hypertension: Qualifiers: Hypertension type: primary hypertension Qualified Code(s): I10 - Essential (primary) hypertension Code(s): I10 - Essential (primary) hypertension Status: Acute Assessment and Plan: - continue metoprolol (6) Rheumatoid arthritis: Qualifiers: Rheumatoid arthritis location: unspecified site Rheumatoid factor presence: unspecified presence Qualified Code(s): M06.9 - Rheumatoid arthritis, unspecified Code(s): M06.9 - Rheumatoid arthritis, unspecified Status: Acute Assessment and Plan: -continue home prednisone, Lyrica, and tramadol (7) Severe protein-calorie malnutrition: Code(s): E43 - Unspecified severe protein-calorie malnutrition Status: Acute Assessment and Plan: - dietitian following Plan DVT prophylaxis: SCDs Dispo: back to skilled nursing in 1-2 days Code status: full code Subjective Date/time seen: 10/15/25 07:52 Interval history: This is a 75-year-old female patient who is admitted to the hospital for hypoxia and pneumonia. Patient previously seen in the emergency department on 10/05 and diagnosed with bilateral pneumonia returning back to the emergency department on 10/07 with continued difficulty breathing and new oxygen demand/hypoxia. Patient was placed on oxygen 1-2 liters/minute and initiated on levofloxacin Patient seen and examined up in chair. Doing better this AM. Denies chest pain, SOB, cough, nausea/vomiting, dysuria. Review of Systems Review of Systems: All systems reviewed & are unremarkable except as noted in HPI and below Exam Narrative: General: NAD, obese Eyes: EOMI ENT: neck supple Cardiovascular: Regular rate and rhythm Respiratory: Clear to auscultation, respirations even and unlabored on RA Gastrointestinal: Soft, non tender Genitourinary: no suprapubic tenderness Musculoskeletal: R knee with mild-moderate edema with no significant tenderness, no erythema Skin: warm, dry Neuro: Alert. Psych: Mood appropriate Objective Data Vital Signs Vital Signs: Vital Signs - 24 hr 10/14/25 08:00 10/14/25 09:21 10/14/25 09:23 Temperature Pulse Rate 78 78 Respiratory Rate Blood Pressure 129/81 Pulse Oximetry Oxygen Delivery Room Air 10/14/25 14:00 10/14/25 19:59 10/14/25 20:00 Temperature 98.3 F 98.4 F Pulse Rate 78 81 81 Respiratory Rate 20 18 18 Blood Pressure 143/71 H 116/62 Pulse Oximetry 100 95 95 Oxygen Delivery Room Air 10/15/25 04:46 Temperature 97.8 F Pulse Rate 67 Respiratory Rate 18 Blood Pressure 162/67 H Pulse Oximetry 98 Oxygen Delivery Intake/Output Intake/Output: Intake & Output 10/12/25 10/13/25 10/14/25 10/15/25 23:59 23:59 23:59 23:59 Intake Total 2924 554 2430 140 Output Total 1050 1100 2100 300 Balance 144 -120 -840 -160 Meds/Results Medications: Active Medications Generic Name Dose Route Start Last Admin Trade Name Regisq PRN Reason Stop Dose Admin Aspirin 81 mg 10/08/25 08:00 10/14/25 09:22 Aspirin 81 Mg Chewable Tablet PO 81 mg DAILY@0800 [facility] Administration Bisacodyl 10 mg 10/08/25 01:50 Bisacodyl 5 Mg Tablet Ec PO QAM PRN Constipation Clopidogrel Bisulfate 75 mg 10/08/25 09:00 10/14/25 09:23 Clopidogrel Bisulfate 75 Mg Tablet PO 75 mg QAM [facility] Administration Ferrous Sulfate 325 mg 10/08/25 08:00 10/14/25 17:11 Ferrous Sulfate 325 Mg Tablet PO 325 mg BIDWM [facility] Administration Furosemide 40 mg 10/10/25 09:00 10/14/25 09:23 Furosemide 40 Mg Tablet PO 40 mg DAILY [facility] Administration Heparin Sodium (Beef Lung) 50 units 10/08/25 09:00 10/14/25 09:23 Heparin Flush 50 Units/5 Ml Syringe IV PUSH 50 units QAM [facility] Administration Heparin Sodium (Beef Lung) 50 units 10/07/25 23:18 10/08/25 01:15 Heparin Flush 50 Units/5 Ml Syringe IV PUSH 50 units PRN PRN Administration after intermittent infusion Heparin Sodium (Beef Lung) 50 units 10/07/25 23:18 10/10/25 05:32 Heparin Flush 50 Units/5 Ml Syringe IV PUSH 50 units PRN PRN Administration after blood draws Heparin Sodium (Porcine) 500 units 10/07/25 23:18 Heparin Sodium Lock Flush 500 Units/5 Ml Syringe IV PUSH PRN PRN see comments below Lidocaine 1 patch 10/14/25 09:00 10/14/25 15:48 Lidocaine 5% Patch TRANSDERM 1 patch DAILY [facility] Administration Menthol/Methyl Salicylate 1 applic 10/08/25 01:50 Menthol 10% / Methyl Salicylate 15% 57 Gm Tube TOPICAL BID PRN muscle pain Metoclopramide HCl 5 mg 10/08/25 06:30 10/15/25 07:41 Metoclopramide Hcl 5 Mg Tablet PO 5 mg BIDAC [facility] Administration Metoprolol Succinate 25 mg 10/08/25 09:00 10/14/25 09:23 Metoprolol Succinate Ext Rel 25 Mg Tabcr PO 25 mg QAM [facility] Administration Pantoprazole Sodium 40 mg 10/08/25 09:00 10/14/25 09:23 Pantoprazole 40 Mg Tablet PO 40 mg DAILY [facility] Administration Polyethylene Glycol 17 gm 10/08/25 09:00 10/14/25 09:20 Polyethylene Glycol 3350 17 Gm Powd.Pack PO Not Given DAILY [facility] Prednisone 10 mg 10/08/25 08:00 10/14/25 09:23 Prednisone 10 Mg Tablet PO 10 mg DAILY@0800 [facility] Administration Pregabalin 50 mg 10/08/25 09:00 10/14/25 17:11 Pregabalin (*Crx) 50 Mg Capsule PO 50 mg BID [facility] Administration Senna 8.6 mg 10/08/25 21:00 10/14/25 20:41 Sennosides 8.6 Mg Tablet PO Not Given HS [facility] Sodium Chloride 10 ml 10/08/25 06:00 10/15/25 05:10 Central Line Flush IV PUSH 10 ml Q8HR [facility] Administration Tramadol HCl 50 mg 10/08/25 01:50 10/14/25 15:48 Tramadol Hcl (*Crx) 50 Mg Tablet PO 50 mg Q12H PRN Administration Pain 4-6 Radiology Results: ITS Impressions Abdomen/Pelvis CT 10/07/25 20:32 IMPRESSION: 1. Chest X-Ray 10/11/25 12:20 IMPRESSION: 1. Persistent left basilar atelectasis and/or airspace disease, with small probable effusion. 2. Improving but persistent interstitial pulmonary edema and/or pneumonitis. Knee CT 10/12/25 15:14 IMPRESSION: Dislocated patella. Complex fluid within the joint space which may reflect posttraumatic hemorrhage, distinction from infection is limited. Clinical correlation is required. Clinically if there is concern for infection contrast-enhanced MRI is recommended Knee MRI 10/14/25 13:57 IMPRESSION: 1. Advanced, grade 4 degenerative changes of the 3 compartments of the knee joint as described above. Minimal medial subluxation at the knee joint. 2. Severe degenerative changes and chronic complex tear of the medial meniscus and lateral meniscus. 3. Large effusion in the knee joint with debris acute osteochondral loose bodies. Labs Labs: Laboratory Results - last 24 hr 10/13/25 10/15/25 15:17 04:56 WBC 27.6 H RBC 2.82 L Hgb 9.2 L Hct 29.2 L MCV 103.5 H MCH 32.6 MCHC 31.5 L RDW 17.6 H Plt Count 599 H MPV 9.1 Immature Gran % (Auto) Not Reportable Neut % (Auto) Not Reportable Lymph % (Auto) Not Reportable Rankin % (Auto) Not Reportable Eos % (Auto) Not Reportable Baso % (Auto) Not Reportable Lymph # (Auto) Not Reportable Rankin # (Auto) Not Reportable Eos # (Auto) Not Reportable Baso # (Auto) Not Reportable Abs Immat Gran (auto) Not Reportable Absolute Neuts (auto) Not Reportable Absolute Nucleated RBC Not Reportable Total Counted 100 Neutrophils % (Manual) 71 Band Neutrophils % 5 Lymphocytes % (Manual) 17.0 L Monocytes % (Manual) 4 Basophils % (Manual) 2 H Metamyelocytes % 1 Nucleated RBC % Not Reportable Abs Neuts (Manual) 20.97 H Abs Lymphs (Manual) 4.69 H Abs Monocytes (Manual) 1.10 H Abs Basophils (Manual) 0.55 H Atypical Lymphocytes Present Smudge Cells Present Platelet Estimate Increased Large Platelets Present Hypochromasia Occasional Anisocytosis 1+ Schistocytes None seen Sodium 137 Potassium 3.9 Chloride 108 H Carbon Dioxide 28 Anion Gap 1 L BUN 31 H Creatinine 0.76 Estim Creat Clear Calc 50 Estimated GFR > 60 Glucose 89 Calcium 8.5 Magnesium 2.0 Total Bilirubin 0.3 AST 33 ALT 14 Alkaline Phosphatase 77 Total Protein 6.8 Albumin 2.9 L Synovial Glucose Cancelled Synovial Total Protein Cancelled Quality VTE Prophylaxis VTE prophylaxis: mechanical ordered
[2025-10-15] MEDS: FERROUS SULFATE 325 MG TABLET PO ×2 (08:20→16:34)
[2025-10-15] MEDS: ASPIRIN 81 MG CHEWABLE TABLET PO (08:20)
[2025-10-15 08:21] VITALS: PULSE 77
[2025-10-15] MEDS: FUROSEMIDE 40 MG TABLET PO (08:21)
[2025-10-15] MEDS: METOPROLOL SUCCINATE EXT REL 25 MG TABCR PO (08:21)
[2025-10-15] MEDS: CLOPIDOGREL BISULFATE 75 MG TABLET PO (08:21)
[2025-10-15] MEDS: PANTOPRAZOLE 40 MG TABLET PO (08:23)
[2025-10-15] MEDS: LIDOCAINE 5% PATCH 1 PATCH TRANSDERM (08:23)
[2025-10-15] MEDS: PREGABALIN (*CRX) 50 MG CAPSULE PO ×2 (08:23→16:34)
[2025-10-15 14:00] VITALS: BP 118/58; PULSE 76; RESP 16; TEMP 36.8; O2SAT 96
--- NOTE | 2025-10-15 15:36 | WPDONCCN ---
Assessment and Plan Assessment and plan (1) Leukocytosis: Code(s): D72.829 - Elevated white blood cell count, unspecified Status: Acute Assessment and Plan: Leukocytosis, macrocytic anemia and thrombocytosis in a patient who was admitted to the hospital with pneumonia and right knee arthralgia and swelling. She received anesthetic injection in the right knee and was started on antibiotic for pneumonia. She denies any bleeding. She has mild tiredness and fatigue. Labs showed normal creatinine. C-reactive protein came back normal at 1.0. Sedimentation rate was elevated at more than 140. Her leukocytosis is secondary to infections and inflammation. I will order flow cytometric analysis for leukemia as well. I will also order workup for anemia. She will follow-up with me in the office for further management. HPI Data of Consult Date/Time: 10/15/25 15:36 Requesting Physician: Kasi Cruz MD Primary Care Provider: Kobe ColladoMD Consult Narrative Narrative: Tiesha Stock is a 75 year old female with multiple comorbidities including rheumatoid arthritis, stroke and pneumonia admitted to the hospital with another episode of pneumonia. She was started on antibiotics. Her labs showed hemoglobin of 8.5. She denies any bleeding including melena and hematochezia. She was also complaining of right knee swelling and discomfort. CT scan abdomen and pelvis showed no acute findings. MRI of the right knee showed grade 4 DJD with some normalization and the knee joint. Patient received right knee lidocaine injection. Labs showed hemoglobin of 9.2 with elevated WBC count of 27.6. Platelet is also elevated at 599,000 hundred ninety nine thousand. Differential showed 71% neutrophils and 17% lymphocytes. There is no evidence of lymphadenopathy. She denies any previous history of malignancy. No other new complaints. Review of Systems Review of Systems: Twelve point review of system was reviewed [facility] Past Medical History Medical History Severe protein-calorie malnutrition Congestive heart failure CVA (cerebral vascular accident) Unchanged small old lacunar infarct at the anterior limb of the right internal capsule as seen on head CT 09/04/2025 Effusion of right knee Unilateral primary osteoarthritis, right knee DVT (deep venous thrombosis) No longer on anticoagulation Chronic blood loss anemia History of seizure (~11/2023) Following surgery for septic arthritis. Osteopenia Moderate protein malnutrition Diastolic dysfunction Echo on 09/08/2025 1. Normal LV size and wall thickness; hyperdynamic LV systolic function, ejection fraction more than 70%. Grade 1 diastolic dysfunction. Normal RV size and systolic function. Normal biatrial size. No interatrial shunt on bubble study. Mild mitral annular calcification, no significant MR. Aortic valve appears mildly calcified, mild aortic stenosis, calculated YENI 2 cm2; maximum velocity 2.36 m/sec, mean gradient 11 mmHg. Mild tricuspid regurgitation, mild pulmonary hypertension, RVSP 40 mmHg. Mild aortic root calcification. No significant pericardial effusion. Occult blood in stools Hyperlipidemia Hypertension Rheumatoid arthritis Surgical History Surgical History History of colonoscopy (07/17/24) Internal hemorrhoids, diverticulosis Normal esophagogastroduodenoscopy (EGD) (07/17/24) PEG (percutaneous endoscopic gastrostomy) status Place at [facility] in January 2024 due to dysphagia, remains in place due to moderate to severe protein calorie malnutrition with approximately 50 lb weight loss since August 2023. History of total left knee replacement Port-A-Cath in place Left chest wall H/O right knee surgery (~11/2023) Washout due to septic arthritis November 2023 H/O: hysterectomy Family History Family History Father , black lung disease No problems noted. Mother , from OJI gangrene. No problems noted. Sibling Acute myocardial infarction Prednisolone adverse reaction Sibling No problems noted. Social History Social History Social History: . She is retired from the [employer]. She has 2 sons. She is wheelchair dependent and currently resides at [facility]. Code status: detention documentation lists Full Code and POLST signed 09/18/25 Surrogate decision maker: Code status: Full code Smoking status: Never smoker Second hand tobacco smoke exposure: No Alcohol intake: never Substance use: never Substance use type: does not use Lack of Transportation: YES Lack of Food: Never True Current Housing: I Have Housing Concerned About Future Housing: No Difficulty Paying Gas/Electric Bills: No Difficulty Paying for Meds: No Currently Unemployed: No Education: Master's Degree or Higher Difficulty w/ Childcare or Family Care: No Living arrangements: long term Additional living arrangements comments: previously with family; at [facility] since 09/18/25 Occupation/Education: retired 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[employer] Gender identity (if verbalized by the patient): Male Spiritual care concerns: No Meds Home Medications and Allergies Home Medications ?Medication ?Instructions ?Recorded ?Confirmed ?Type polyethylene glycol 3350 17 17 g PO DAILY 07/09/24 10/07/25 History gram/dose oral powder (Miralax) metoprolol succinate 25 mg 25 mg PO QAM #60 tabs 07/22/24 10/07/25 Rx tablet,extended release 24 hr (Toprol XL) bisacodyl 5 mg tablet,delayed 10 mg (2 x 5 mg) PO QAM PRN 12/17/24 10/07/25 Rx release (Laxative (bisacodyl)) Constipation #30 tabs ferrous sulfate 325 mg (65 mg 325 mg PO BIDWM #60 tabs 12/17/24 10/07/25 Rx iron) tablet,delayed release aspirin 81 mg tablet 81 mg PO DAILY 05/15/25 10/07/25 History hydrochlorothiazide 12.5 mg capsule 25 mg PO DAILY 05/15/25 10/07/25 History prednisone 20 mg tablet 10 mg PO DAILY 05/15/25 10/07/25 History pantoprazole 40 mg tablet,delayed 40 mg PO DAILY 09/02/25 10/07/25 History release pregabalin 50 mg capsule 50 mg PO BID 09/02/25 10/07/25 History clopidogrel 75 mg tablet 75 mg PO QAM 30 days #30 tabs 09/18/25 10/07/25 Rx sennosides 8.6 mg tablet (Senokot) 8.6 mg PO HS 7 days #7 tabs 09/18/25 10/07/25 Rx tramadol 50 mg tablet 50 mg PO Q12H PRN Pain 4-6 10 days 09/18/25 10/07/25 Rx #12 tabs azithromycin 250 mg tablet 250 mg PO DAILY 4 days #4 tabs 10/05/25 10/07/25 Rx acetaminophen 325 mg tablet 650 mg PO Q4H PRN pain 10/07/25 10/07/25 History camphor 4 %-methyl salicylate 30 1 applic topical BID PRN muscle 10/07/25 10/07/25 History %-menthol 10 % topical cream pain (Bengay Ultra Strength) diclofenac 1 % gel-benzalkonium 1 g topical TID 10/07/25 10/07/25 History chloride 0.13 % towelette topical kit metoclopramide HCl 5 mg tablet 5 mg PO BID 10/07/25 10/07/25 History Allergies Allergy/AdvReac Type Severity Reaction Status Date / Time amlodipine Allergy Severe Hives Verified 10/07/25 22:55 banana Allergy Severe throat Verified 10/07/25 22:55 Itching latex Allergy Severe Redness of Verified 10/07/25 22:55 Skin, baker lisinopril Allergy Severe Difficulty Verified 10/07/25 22:55 Breathing Penicillins Allergy Severe Rash Verified 10/07/25 22:55 pseudoephedrine Allergy Severe Difficulty Verified 10/07/25 22:55 Breathing tetracycline Allergy Severe Difficulty Verified 10/07/25 22:55 Breathing tree nut Allergy Severe Other Verified 10/07/25 22:55 dextromethorphan Allergy Intermediate Rash Verified 10/07/25 22:55 prednisone Allergy Unknown Other Verified 10/07/25 22:55 acetaminophen AdvReac Intermediate Nausea and Verified 10/07/25 22:55 Vomiting aspirin AdvReac Intermediate Nausea and Verified 10/07/25 22:55 Vomiting vancomycin AdvReac Intermediate Other Verified 10/07/25 22:55 Sulfa (Sulfonamide AdvReac Mild Other Verified 10/07/25 22:55 Antibiotics) Vital Signs Vital Signs - 24 hr 10/14/25 19:59 10/14/25 20:00 10/15/25 04:46 Temperature 36.9 C 36.6 C Pulse Rate 81 81 67 Respiratory Rate 18 18 18 Blood Pressure 116/62 162/67 H Pulse Oximetry 95 95 98 Oxygen Delivery Room Air 10/15/25 08:00 10/15/25 08:21 10/15/25 14:00 Temperature 36.8 C Pulse Rate 77 76 Respiratory Rate 16 Blood Pressure 118/58 L Pulse Oximetry 96 Oxygen Delivery Room Air Exam Narrative: Lungs are clear to auscultation bilaterally Cardiovascular regular rate rhythm no murmurs Abdomen soft nontender nondistended Extremities showed right knee swelling Results Labs 10/15/25 04:56 10/15/25 04:56 Labs: Short CBC 10/15/25 Range/Units 04:56 WBC 27.6 H (4.5-10.0) K/mm3 Hgb 9.2 L (12.0-15.0) g/dL Hct 29.2 L (37.0-47.0) % Plt Count 599 H (150-375) k/mm3 BMP 10/15/25 04:56 Sodium 137 Potassium 3.9 Chloride 108 H Carbon Dioxide 28 BUN 31 H Creatinine 0.76 Glucose 89 Calcium 8.5 Liver Function 10/15/25 Range/Units 04:56 Total Bilirubin 0.3 (0.2-1.3) mg/dL AST 33 (14-36) U/L ALT 14 (6-35) U/L Alkaline Phosphatase 77 (38-126) U/L Albumin 2.9 L (3.5-5.1) g/dL
--- NOTE | 2025-10-15 19:47 | WPDIDCN ---
Assessment and Plan Assessment and plan (1) Leukocytosis: Code(s): D72.829 - Elevated white blood cell count, unspecified Status: Acute Assessment and Plan: ASSESSMENT: 1. Leukocytosis--last recent visit was thought to be 2nd to steroids. Now up again. On chronic steroids. Had steroid injection yesterday. Infectious work up has not been revealing this admit. CXR with ??pneumonia but CT abd lung base cuts without pneumonia. UA not c/w UTI. Blood cxs are NGTD. Multiple aspirations of the right knee have not been convincing for septic joint. Does have right knee effusion thought 2nd to RA. Lyme ab last visit neg. Multiple prior joint cultures neg. 2. heart failure 3. stroke, HTN, HL, DVT, seizure 4. RA 5. allergies to penicillin-->rash; tetracycline-->SOB; sulfa and vanco with ??reactions RECOMMENDATIONS: -continue to monitor off abx -doubt the leukocytosis is a reflection of current infection-->probably multifactorial to steroids, RA -consider tagged WBC scan but favor watchful waiting dw nursing staff Pt was seen via video telehealth consultation with the assistance of staff. Chart, data and patient info reviewed. Patient was located at [facility] while I was in my [place] office. Pt gave consent. (2) Joint swelling: Code(s): M25.40 - Effusion, unspecified joint Status: Acute HPI Data of Consult Date/Time: 10/15/25 19:47 Requesting Physician: Kasi Cruz MD Primary Care Provider: oKbe ColladoMD Consult Narrative Reason for consult: leukocytosis Narrative: Tiesha Stock is a 75 year old female with pmhx/o HTN, HL, RA, storke, DVT, seizure, recurrent right knee effusions s/p multiple aspirations that have not been really c/w septic joint, was seen by ID last month for leukocytosis. Steroid use felt to be the reason for leukocytosis at that time. She came to ED 10/05 and was diagnosed with pneumonia and discharged on azithromycin and cefpodoxime. She then came back on 10/07. Was given levaquin for possible pneumonia. WBC count was normal at that time. Had also acute respiratory failure and heart failure. Levaquin stopped after just a day or two. Currently on no abx. She has right knee effusion. Was seen by ortho and underwent arthrocentesis. Gram stain negative for organisms but she was on abx recently. No culture or cell count apparently could be done. She received a steroid injection on 10/14 and she states her knee feels better. MRI this admit of the knee with degenerative changes and debris acute lose bodies. Pt is well known to Dr. Bello ([place]) and I had spoken to him regarding this case not too long ago. Pt is currently on no abx. She was given a brace as well. No fever. No current cough. WBC on 10/09 was wnl now has been increasing Currently at 27.6K. Her UA is not c/w UTI. No recent fevers here. She is on 10 mg of prednisone here. [facility] Past Medical History Medical History Severe protein-calorie malnutrition Congestive heart failure CVA (cerebral vascular accident) Unchanged small old lacunar infarct at the anterior limb of the right internal capsule as seen on head CT 09/04/2025 Effusion of right knee Unilateral primary osteoarthritis, right knee DVT (deep venous thrombosis) No longer on anticoagulation Chronic blood loss anemia History of seizure (~11/2023) Following surgery for septic arthritis. Osteopenia Moderate protein malnutrition Diastolic dysfunction Echo on 09/08/2025 1. Normal LV size and wall thickness; hyperdynamic LV systolic function, ejection fraction more than 70%. Grade 1 diastolic dysfunction. Normal RV size and systolic function. Normal biatrial size. No interatrial shunt on bubble study. Mild mitral annular calcification, no significant MR. Aortic valve appears mildly calcified, mild aortic stenosis, calculated YENI 2 cm2; maximum velocity 2.36 m/sec, mean gradient 11 mmHg. Mild tricuspid regurgitation, mild pulmonary hypertension, RVSP 40 mmHg. Mild aortic root calcification. No significant pericardial effusion. Occult blood in stools Hyperlipidemia Hypertension Rheumatoid arthritis Surgical History Surgical History History of colonoscopy (07/17/24) Internal hemorrhoids, diverticulosis Normal esophagogastroduodenoscopy (EGD) (07/17/24) PEG (percutaneous endoscopic gastrostomy) status Place at [facility] in January 2024 due to dysphagia, remains in place due to moderate to severe protein calorie malnutrition with approximately 50 lb weight loss since August 2023. History of total left knee replacement Port-A-Cath in place Left chest wall H/O right knee surgery (~11/2023) Washout due to septic arthritis November 2023 H/O: hysterectomy Family History Family History Father , black lung disease No problems noted. Mother , from OJI gangrene. No problems noted. Sibling Acute myocardial infarction Prednisolone adverse reaction Sibling No problems noted. Social History Social History Social History: . She is retired from the [employer] She has 2 sons. She is wheelchair dependent and currently resides at [facility]. Code status: custodial documentation lists Full Code and POLST signed 09/18/25 Surrogate decision maker: Code status: Full code Smoking status: Never smoker Second hand tobacco smoke exposure: No Alcohol intake: never Substance use: never Substance use type: does not use Lack of Transportation: YES Lack of Food: Never True Current Housing: I Have Housing Concerned About Future Housing: No Difficulty Paying Gas/Electric Bills: No Difficulty Paying for Meds: No Currently Unemployed: No Education: Master's Degree or Higher Difficulty w/ Childcare or Family Care: No Living arrangements: longterm Additional living arrangements comments: previously with family; at [facility] since 09/18/25 Occupation/Education: retired 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 [place] Gender identity (if verbalized by the patient): Male Spiritual care concerns: No Meds Home Medications and Allergies Home Medications ?Medication ?Instructions ?Recorded ?Confirmed ?Type polyethylene glycol 3350 17 17 g PO DAILY 07/09/24 10/07/25 History gram/dose oral powder (Miralax) metoprolol succinate 25 mg 25 mg PO QAM #60 tabs 07/22/24 10/07/25 Rx tablet,extended release 24 hr (Toprol XL) bisacodyl 5 mg tablet,delayed 10 mg (2 x 5 mg) PO QAM PRN 12/17/24 10/07/25 Rx release (Laxative (bisacodyl)) Constipation #30 tabs ferrous sulfate 325 mg (65 mg 325 mg PO BIDWM #60 tabs 12/17/24 10/07/25 Rx iron) tablet,delayed release aspirin 81 mg tablet 81 mg PO DAILY 05/15/25 10/07/25 History hydrochlorothiazide 12.5 mg capsule 25 mg PO DAILY 05/15/25 10/07/25 History prednisone 20 mg tablet 10 mg PO DAILY 05/15/25 10/07/25 History pantoprazole 40 mg tablet,delayed 40 mg PO DAILY 09/02/25 10/07/25 History release pregabalin 50 mg capsule 50 mg PO BID 09/02/25 10/07/25 History clopidogrel 75 mg tablet 75 mg PO QAM 30 days #30 tabs 09/18/25 10/07/25 Rx sennosides 8.6 mg tablet (Senokot) 8.6 mg PO HS 7 days #7 tabs 09/18/25 10/07/25 Rx tramadol 50 mg tablet 50 mg PO Q12H PRN Pain 4-6 10 days 09/18/25 10/07/25 Rx #12 tabs azithromycin 250 mg tablet 250 mg PO DAILY 4 days #4 tabs 10/05/25 10/07/25 Rx acetaminophen 325 mg tablet 650 mg PO Q4H PRN pain 10/07/25 10/07/25 History camphor 4 %-methyl salicylate 30 1 applic topical BID PRN muscle 10/07/25 10/07/25 History %-menthol 10 % topical cream pain (Bengay Ultra Strength) diclofenac 1 % gel-benzalkonium 1 g topical TID 10/07/25 10/07/25 History chloride 0.13 % towelette topical kit metoclopramide HCl 5 mg tablet 5 mg PO BID 10/07/25 10/07/25 History Allergies Allergy/AdvReac Type Severity Reaction Status Date / Time amlodipine Allergy Severe Hives Verified 10/07/25 22:55 banana Allergy Severe throat Verified 10/07/25 22:55 Itching latex Allergy Severe Redness of Verified 10/07/25 22:55 Skin, baker lisinopril Allergy Severe Difficulty Verified 10/07/25 22:55 Breathing Penicillins Allergy Severe Rash Verified 10/07/25 22:55 pseudoephedrine Allergy Severe Difficulty Verified 10/07/25 22:55 Breathing tetracycline Allergy Severe Difficulty Verified 10/07/25 22:55 Breathing tree nut Allergy Severe Other Verified 10/07/25 22:55 dextromethorphan Allergy Intermediate Rash Verified 10/07/25 22:55 prednisone Allergy Unknown Other Verified 10/07/25 22:55 acetaminophen AdvReac Intermediate Nausea and Verified 10/07/25 22:55 Vomiting aspirin AdvReac Intermediate Nausea and Verified 10/07/25 22:55 Vomiting vancomycin AdvReac Intermediate Other Verified 10/07/25 22:55 Sulfa (Sulfonamide AdvReac Mild Other Verified 10/07/25 22:55 Antibiotics) Vital Signs Vital Signs - 24 hr 10/14/25 19:59 10/14/25 20:00 10/15/25 04:46 Temperature 98.4 F 97.8 F Pulse Rate 81 81 67 Respiratory Rate 18 18 18 Blood Pressure 116/62 162/67 H Pulse Oximetry 95 95 98 Oxygen Delivery Room Air 10/15/25 08:00 10/15/25 08:21 10/15/25 14:00 Temperature 98.3 F Pulse Rate 77 76 Respiratory Rate 16 Blood Pressure 118/58 L Pulse Oximetry 96 Oxygen Delivery Room Air Exam Narrative: up in chair on room air, non-toxic +PAC right kne swollen, in brace Results Labs 10/15/25 04:56 10/15/25 04:56 Labs: Short CBC 10/15/25 Range/Units 04:56 WBC 27.6 H (4.5-10.0) K/mm3 Hgb 9.2 L (12.0-15.0) g/dL Hct 29.2 L (37.0-47.0) % Plt Count 599 H (150-375) k/mm3 BMP 10/15/25 04:56 Sodium 137 Potassium 3.9 Chloride 108 H Carbon Dioxide 28 BUN 31 H Creatinine 0.76 Glucose 89 Calcium 8.5 Liver Function 10/15/25 Range/Units 04:56 Total Bilirubin 0.3 (0.2-1.3) mg/dL AST 33 (14-36) U/L ALT 14 (6-35) U/L Alkaline Phosphatase 77 (38-126) U/L Albumin 2.9 L (3.5-5.1) g/dL
[2025-10-15 20:00] VITALS: PULSE 80; RESP 18; O2SAT 98
[2025-10-15 20:16] VITALS: BP 126/65; PULSE 80; RESP 18; TEMP 36.6; O2SAT 98
[2025-10-15] MEDS: SENNOSIDES 8.6 MG TABLET PO (20:53)
[2025-10-16] VITALS (10 sets, daily range): BP systolic 118–157; BP diastolic 68–73; PULSE 66–78; RESP 18; TEMP 36.4–36.9; O2SAT 95–99
[2025-10-16] MEDS: CENTRAL LINE FLUSH 10 ML IV PUSH ×3 (05:19→22:00)
[2025-10-16 05:30] LABS: Hematocrit 29.3 % (37.0-47.0); Hemoglobin 9.1 g/dL (12.0-15.0); Mean Corpuscular HGB Conc 31.1 g/dl (32-36); Mean Corpuscular Hemoglobin 32.7 pg (26-34); Mean Corpuscular Volume 105.4 fl (80-100); Platelet Count Result 576 k/mm3 (150-375); Red Blood Count 2.78 M/mm3 (4.2-5.4); White Blood Count 27.4 K/mm3 (4.5-10.0)
[2025-10-16] MEDS: METOCLOPRAMIDE HCL 5 MG TABLET PO ×2 (05:32→16:23)
[2025-10-16 05:57] LABS: Alanine Aminotransferase 13 U/L (6-35); Albumin Level 2.9 g/dL (3.5-5.1); Alkaline Phosphatase 77 U/L (38-126); Anion Gap 0 mmol/L (4-12); Aspartate Amino Transferase 35 U/L (14-36); Bilirubin,Total 0.3 mg/dL (0.2-1.3); Blood Urea Nitrogen 34 mg/dL (7-17); Calcium 8.3 mg/dL (8.4-10.2); Carbon Dioxide 29 mmol/L (22-30); Chloride 108 mmol/L (98-107); Estimated CRCL calculation 55 ml/min; Estimated Glomerular Filt Rate > 60; Glucose 87 mg/dL (65-110); Magnesium 2.0 mg/dL (1.6-2.3); Potassium 3.9 mmol/L (3.4-5.0); Sodium 137 mmol/L (137-145); Total Protein 6.8 g/dL (6.3-8.2)
[2025-10-16 06:23] LABS: Band Neutrophils Percent 4 % (0-6); Basophils Absolute Manual 0.54 K/mm3 (0.0-0.1); Basophils Percent Manual 2 % (0-1); Lymphocytes Absolute Manual 6.57 K/mm3 (1.1-4.5); Lymphocytes Percent Manual 24 % (18-44); Metamyelocytes Percent 3 %; Monocytes Absolute Manual 1.64 K/mm3 (0.1-0.90); Monocytes Percent Manual 6 % (3-9); Myelocytes Percent 3 %; Neutrophils Absolute Manual 16.98 K/mm3 (1.3-6.7); Neutrophils Percent Manual 58 % (46-73); Total Cells Counted 100
[2025-10-16 06:34] LABS: Macrocytosis 1+ (NORMAL); Polychromasia Occasional
[2025-10-16 06:35] LABS: Basophilic Stippling Occasional; Ovalocytes 1+
[2025-10-16 06:38] LABS: Smudge Cells FEW
[2025-10-16 06:39] LABS: Hypochromasia Occasional
[2025-10-16 06:40] LABS: Schistocytes Rare; Target Cells Occasional
--- NOTE | 2025-10-16 07:47 | P.PNIM_ITS ---
Progress Note: A&P Assessment and Plan (1) Leukocytosis: Code(s): D72.829 - Elevated white blood cell count, unspecified Status: Acute Assessment and Plan: -UA on 10/07 not concerning for infection -Blood cultures on 10/07 no growth. Repeat 10/12 NGTD -WBC uptrended to 27, stable today -Chronic steroid use, patient reports she was restarted on prednisone in July - Also received R knee steroid injection 10/14 -Repeat CXR shows improving pneumonia -No SIRS criteria - ID consulted - doubt infection, likely multifactorial in setting of steroids, RA. Could consider tagged WBC. - hematology consulted - suspect leukocytosis due to inflammation, ordered flow cytometry and anemia work-up - continue to monitor off antibiotics (2) Pneumonia: Qualifiers: Laterality: bilateral Lung location: lower lobe of lung Pneumonia type: due to unspecified organism Qualified Code(s): J18.9 - Pneumonia, unspecified organism Code(s): J18.9 - Pneumonia, unspecified organism Status: Acute Assessment and Plan: -Chest XR: Cardiomegaly, severe atherosclerotic aorta and mild congestive changes of lungs with small bilateral pleural effusions. - blood cultures no growth -Weaned off o2 supplementation -Repeat CXR 10/11: Persistent left basilar atelectasis and/or airspace disease, with small probable effusion. Improving but persistent interstitial pulmonary edema and/or pneumonitis. -Antibiotic course complete (3) Joint swelling: Code(s): M25.40 - Effusion, unspecified joint Status: Acute Assessment and Plan: -Right knee swelling noted, previous episode of septic joint noted in records - MRI R knee with advanced grade 4 degenerative changes, chronic complex tear of the medial meniscus and lateral meniscus, large effusion with debris, acute osteochondral loose bodies -s/p L knee aspiration 10/13 Gram stain negative for organisms, many WBCs seen, Cell count unable to be fully performed due to clotting despite use of purple tube - ortho followed -based on synovial fluid, Gram stain and imaging, low suspicion for infection. Suspect chronic changes. Received cortisone injection 10/14. Continued use of knee brace, walker and offloading, weight-bearing as tolerated. CRP normal, ESR remains elevated -Continue PT/OT, WBAT, ice/lidocaine patch (4) Congestive heart failure: Code(s): I50.9 - Heart failure, unspecified Status: Acute Assessment and Plan: -echo 09/13 heart failure with preserved ejection fraction, hyperdynamic LVEF and grade 1 diastolic dysfunction per echocardiogram last month. -Hydrochlorothiazide stopped, s/p IV Lasix - transitioned to PO. Patient prefers to stop Lasix. Will restart HCTZ. -Swelling continues to improve (5) Hypertension: Qualifiers: Hypertension type: primary hypertension Qualified Code(s): I10 - Essential (primary) hypertension Code(s): I10 - Essential (primary) hypertension Status: Acute Assessment and Plan: - continue metoprolol, restarted HCTZ (6) Rheumatoid arthritis: Qualifiers: Rheumatoid arthritis location: unspecified site Rheumatoid factor presence: unspecified presence Qualified Code(s): M06.9 - Rheumatoid arthritis, unspecified Code(s): M06.9 - Rheumatoid arthritis, unspecified Status: Acute Assessment and Plan: -continue home prednisone, Lyrica, and tramadol (7) Severe protein-calorie malnutrition: Code(s): E43 - Unspecified severe protein-calorie malnutrition Status: Acute Assessment and Plan: - dietitian following Plan DVT prophylaxis: SCDs Dispo: [facility] Code status: full code Subjective Date/time seen: 10/16/25 07:47 Interval history: This is a 75-year-old female patient who is admitted to the hospital for hypoxia and pneumonia. Patient previously seen in the emergency department on 10/05 and diagnosed with bilateral pneumonia returning back to the emergency department on 10/07 with continued difficulty breathing and new oxygen demand/hypoxia. Patient was placed on oxygen 1-2 liters/minute and initiated on levofloxacin Patient seen and examined at bedside. Overall doing well this AM. Denies cough, SOB. Knee swelling is improved. Expressed concerns about her BP fluctuations and wanting to stop Lasix. Discussed restarted HCTZ, patient agreeable. Review of Systems Review of Systems: All systems reviewed & are unremarkable except as noted in HPI and below Exam Narrative: General: NAD Eyes: EOMI ENT: neck supple Cardiovascular: Regular rate and rhythm Respiratory: Clear to auscultation, respirations even and unlabored on RA Gastrointestinal: Soft, non tender Genitourinary: no suprapubic tenderness Musculoskeletal: R knee with mild edema with no significant tenderness, no erythema Skin: warm, dry Neuro: Alert. Psych: Mood appropriate Objective Data Vital Signs Vital Signs: Vital Signs - 24 hr 10/15/25 08:00 10/15/25 08:21 10/15/25 14:00 Temperature 98.3 F Pulse Rate 77 76 Respiratory Rate 16 Blood Pressure 118/58 L Pulse Oximetry 96 Oxygen Delivery Room Air 10/15/25 20:00 10/15/25 20:16 10/16/25 05:10 Temperature 97.8 F 98.0 F Pulse Rate 80 80 66 Respiratory Rate 18 18 18 Blood Pressure 126/65 157/73 H Pulse Oximetry 98 98 98 Oxygen Delivery Room Air Intake/Output Intake/Output: Intake & Output 10/13/25 10/14/25 10/15/25 10/16/25 23:59 23:59 23:59 23:59 Intake Total 980 1260 1290 120 Output Total 1100 2100 650 200 Balance -120 -840 640 -80 Meds/Results Medications: Active Medications Generic Name Dose Route Start Last Admin Trade Name Freq PRN Reason Stop Dose Admin Aspirin 81 mg 10/08/25 08:00 10/15/25 08:20 Aspirin 81 Mg Chewable Tablet PO 81 mg DAILY@0800 MIROSLAVA Administration Bisacodyl 10 mg 10/08/25 01:50 Bisacodyl 5 Mg Tablet Ec PO QAM PRN Constipation Clopidogrel Bisulfate 75 mg 10/08/25 09:00 10/15/25 08:21 Clopidogrel Bisulfate 75 Mg Tablet PO 75 mg QAM MIROSLAVA Administration Ferrous Sulfate 325 mg 10/08/25 08:00 10/15/25 16:34 Ferrous Sulfate 325 Mg Tablet PO 325 mg BIDWM MIROSLAVA Administration Furosemide 40 mg 10/10/25 09:00 10/15/25 08:21 Furosemide 40 Mg Tablet PO 40 mg DAILY MIROSLAVA Administration Heparin Sodium (Beef Lung) 50 units 10/08/25 09:00 10/15/25 08:24 Heparin Flush 50 Units/5 Ml Syringe IV PUSH 50 units QAM MIROSLAVA Administration Heparin Sodium (Beef Lung) 50 units 10/07/25 23:18 10/08/25 01:15 Heparin Flush 50 Units/5 Ml Syringe IV PUSH 50 units PRN PRN Administration after intermittent infusion Heparin Sodium (Beef Lung) 50 units 10/07/25 23:18 10/15/25 16:35 Heparin Flush 50 Units/5 Ml Syringe IV PUSH 50 units PRN PRN Administration after blood draws Heparin Sodium (Porcine) 500 units 10/07/25 23:18 Heparin Sodium Lock Flush 500 Units/5 Ml Syringe IV PUSH PRN PRN see comments below Lidocaine 1 patch 10/14/25 09:00 10/15/25 08:23 Lidocaine 5% Patch TRANSDERM 1 patch DAILY MIROSLAVA Administration Menthol/Methyl Salicylate 1 applic 10/08/25 01:50 Menthol 10% / Methyl Salicylate 15% 57 Gm Tube TOPICAL BID PRN muscle pain Metoclopramide HCl 5 mg 10/08/25 06:30 10/16/25 05:32 Metoclopramide Hcl 5 Mg Tablet PO 5 mg BIDAC MIROSLAVA Administration Metoprolol Succinate 25 mg 10/08/25 09:00 10/15/25 08:21 Metoprolol Succinate Ext Rel 25 Mg Tabcr PO 25 mg QAM MIROSLAVA Administration Pantoprazole Sodium 40 mg 10/08/25 09:00 10/15/25 08:23 Pantoprazole 40 Mg Tablet PO 40 mg DAILY MIROSLAVA Administration Polyethylene Glycol 17 gm 10/08/25 09:00 10/15/25 08:23 Polyethylene Glycol 3350 17 Gm Powd.Pack PO Not Given DAILY MIROSLAVA Prednisone 10 mg 10/08/25 08:00 10/15/25 08:21 Prednisone 10 Mg Tablet PO 10 mg DAILY@0800 MIROSLAVA Administration Pregabalin 50 mg 10/08/25 09:00 10/15/25 16:34 Pregabalin (*Crx) 50 Mg Capsule PO 50 mg BID MIROSLAVA Administration Senna 8.6 mg 10/08/25 21:00 10/15/25 20:53 Sennosides 8.6 Mg Tablet PO 8.6 mg HS MIROSLAVA Administration Sodium Chloride 10 ml 10/08/25 06:00 10/16/25 05:19 Central Line Flush IV PUSH 10 ml Q8HR MIROSLAVA Administration Tramadol HCl 50 mg 10/08/25 01:50 10/14/25 15:48 Tramadol Hcl (*Crx) 50 Mg Tablet PO 50 mg Q12H PRN Administration Pain 4-6 Radiology Results: ITS Impressions Abdomen/Pelvis CT 10/07/25 20:32 IMPRESSION: 1. Chest X-Ray 10/11/25 12:20 IMPRESSION: 1. Persistent left basilar atelectasis and/or airspace disease, with small probable effusion. 2. Improving but persistent interstitial pulmonary edema and/or pneumonitis. Knee CT 10/12/25 15:14 IMPRESSION: Dislocated patella. Complex fluid within the joint space which may reflect posttraumatic hemorrhage, distinction from infection is limited. Clinical correlation is required. Clinically if there is concern for infection contrast-enhanced MRI is recommended Knee MRI 10/14/25 13:57 IMPRESSION: 1. Advanced, grade 4 degenerative changes of the 3 compartments of the knee joint as described above. Minimal medial subluxation at the knee joint. 2. Severe degenerative changes and chronic complex tear of the medial meniscus and lateral meniscus. 3. Large effusion in the knee joint with debris acute osteochondral loose bodies. Labs Labs: Laboratory Results - last 24 hr 10/16/25 05:08 WBC 27.4 H RBC 2.78 L Hgb 9.1 L Hct 29.3 L MCV 105.4 H MCH 32.7 MCHC 31.1 L RDW 18.2 H Plt Count 576 H MPV 9.1 Immature Gran % (Auto) Not Reportable Neut % (Auto) Not Reportable Lymph % (Auto) Not Reportable [place] % (Auto) Not Reportable Eos % (Auto) Not Reportable Baso % (Auto) Not Reportable Lymph # (Auto) Not Reportable [place] # (Auto) Not Reportable Eos # (Auto) Not Reportable Baso # (Auto) Not Reportable Abs Immat Gran (auto) Not Reportable Absolute Neuts (auto) Not Reportable Absolute Nucleated RBC Not Reportable Total Counted 100 Neutrophils % (Manual) 58 Band Neutrophils % 4 Lymphocytes % (Manual) 24 Monocytes % (Manual) 6 Basophils % (Manual) 2 H Metamyelocytes % 3 Myelocytes % 3 Nucleated RBC % Not Reportable Abs Neuts (Manual) 16.98 H Abs Lymphs (Manual) 6.57 H Abs Monocytes (Manual) 1.64 H Abs Basophils (Manual) 0.54 H Nucleated RBCs 2 Smudge Cells Few Platelet Estimate Increased Large Platelets Present Polychromasia Occasional Hypochromasia Occasional Basophilic Stippling Occasional Macrocytosis 1+ Target Cells Occasional Ovalocytes 1+ Schistocytes Rare Sodium 137 Potassium 3.9 Chloride 108 H Carbon Dioxide 29 Anion Gap 0 L BUN 34 H Creatinine 0.68 L Estim Creat Clear Calc 55 Estimated GFR > 60 Glucose 87 Calcium 8.3 L Magnesium 2.0 Total Bilirubin 0.3 AST 35 ALT 13 Alkaline Phosphatase 77 Total Protein 6.8 Albumin 2.9 L Quality VTE Prophylaxis VTE prophylaxis: mechanical ordered
[2025-10-16] MEDS: PANTOPRAZOLE 40 MG TABLET PO (08:58)
[2025-10-16] MEDS: PREGABALIN (*CRX) 50 MG CAPSULE PO ×2 (08:58→16:23)
[2025-10-16] MEDS: CLOPIDOGREL BISULFATE 75 MG TABLET PO (08:58)
[2025-10-16] MEDS: FERROUS SULFATE 325 MG TABLET PO ×2 (08:58→16:23)
[2025-10-16] MEDS: METOPROLOL SUCCINATE EXT REL 25 MG TABCR PO (08:58)
[2025-10-16] MEDS: ASPIRIN 81 MG CHEWABLE TABLET PO (08:58)
[2025-10-16] MEDS: FUROSEMIDE 40 MG TABLET PO (08:58)
[2025-10-16] MEDS: LIDOCAINE 5% PATCH 1 PATCH TRANSDERM (09:00)
[2025-10-17] VITALS (11 sets, daily range): BP systolic 115–155; BP diastolic 65–69; PULSE 67–88; RESP 18–20; TEMP 36.5–36.7; O2SAT 94–98
[2025-10-17 05:04] LABS: Hematocrit 29.8 % (37.0-47.0); Hemoglobin 9.2 g/dL (12.0-15.0); Mean Corpuscular HGB Conc 30.9 g/dl (32-36); Mean Corpuscular Hemoglobin 32.4 pg (26-34); Mean Corpuscular Volume 104.9 fl (80-100); Platelet Count Result 519 k/mm3 (150-375); Red Blood Count 2.84 M/mm3 (4.2-5.4); White Blood Count 26.7 K/mm3 (4.5-10.0)
[2025-10-17] MEDS: CENTRAL LINE FLUSH 10 ML IV PUSH ×3 (05:22→21:22)
[2025-10-17] MEDS: METOCLOPRAMIDE HCL 5 MG TABLET PO ×2 (05:23→17:53)
[2025-10-17 05:29] LABS: Anisocytosis 1+; Band Neutrophils Percent 2 % (0-6); Basophilic Stippling Occasional; Basophils Absolute Manual 0.26 K/mm3 (0.0-0.1); Basophils Percent Manual 1 % (0-1); Hypochromasia 1+; Lymphocytes Absolute Manual 7.47 K/mm3 (1.1-4.5); Lymphocytes Percent Manual 28.0 % (18-44); Macrocytosis Occasional (NORMAL); Monocytes Absolute Manual 1.33 K/mm3 (0.1-0.90); Monocytes Percent Manual 5 % (3-9); Neutrophils Absolute Manual 17.62 K/mm3 (1.3-6.7); Neutrophils Percent Manual 64 % (46-73); Schistocytes None Seen; Total Cells Counted 100
[2025-10-17 05:30] LABS: Smudge Cells FEW
--- NOTE | 2025-10-17 07:13 | P.PNIM_ITS ---
Progress Note: A&P Assessment and Plan (1) Leukocytosis: Code(s): D72.829 - Elevated white blood cell count, unspecified Status: Acute Assessment and Plan: -UA on 10/07 not concerning for infection -Blood cultures on 10/07 no growth. Repeat 10/12 NGTD -WBC uptrended to 27, now downtrending slightly - Chronic steroid use, patient reports she was restarted on prednisone in July - Also received R knee steroid injection 10/14 - Repeat CXR shows improving pneumonia - ID consulted - doubt infection, likely multifactorial in setting of steroids, RA. Could consider tagged WBC. - hematology consulted - suspect leukocytosis due to inflammation, ordered flow cytometry and anemia work-up - continue to monitor off antibiotics (2) Pneumonia: Qualifiers: Laterality: bilateral Lung location: lower lobe of lung Pneumonia type: due to unspecified organism Qualified Code(s): J18.9 - Pneumonia, unspecified organism Code(s): J18.9 - Pneumonia, unspecified organism Status: Acute Assessment and Plan: -Chest XR: Cardiomegaly, severe atherosclerotic aorta and mild congestive changes of lungs with small bilateral pleural effusions. - blood cultures no growth -Weaned off o2 supplementation -Repeat CXR 10/11: Persistent left basilar atelectasis and/or airspace disease, with small probable effusion. Improving but persistent interstitial pulmonary edema and/or pneumonitis. -Antibiotic course complete (3) Joint swelling: Code(s): M25.40 - Effusion, unspecified joint Status: Acute Assessment and Plan: -Right knee swelling noted, previous episode of septic joint noted in records - MRI R knee with advanced grade 4 degenerative changes, chronic complex tear of the medial meniscus and lateral meniscus, large effusion with debris, acute osteochondral loose bodies -s/p L knee aspiration 10/13 Gram stain negative for organisms, many WBCs seen, Cell count unable to be fully performed due to clotting despite use of purple tube - ortho followed -based on synovial fluid, Gram stain and imaging, low suspicion for infection. Suspect chronic changes. Received cortisone injection 10/14. Continued use of knee brace, walker and offloading, weight-bearing as tolerated. CRP normal, ESR remains elevated -Continue PT/OT, WBAT, ice/lidocaine patch (4) Congestive heart failure: Code(s): I50.9 - Heart failure, unspecified Status: Acute Assessment and Plan: Acute on chronic HFpEF -echo 09/13 hyperdynamic LVEF and grade 1 diastolic dysfunction - CXR with persistent edema, but lungs clear and patient on RA -Hydrochlorothiazide stopped, s/p IV Lasix - transitioned to PO. Patient prefers to stop Lasix. Will restart HCTZ. -Swelling continues to improve (5) Hypertension: Qualifiers: Hypertension type: primary hypertension Qualified Code(s): I10 - Essential (primary) hypertension Code(s): I10 - Essential (primary) hypertension Status: Acute Assessment and Plan: - continue metoprolol, restarted HCTZ 10/16 (6) Rheumatoid arthritis: Qualifiers: Rheumatoid arthritis location: unspecified site Rheumatoid factor presence: unspecified presence Qualified Code(s): M06.9 - Rheumatoid arthritis, unspecified Code(s): M06.9 - Rheumatoid arthritis, unspecified Status: Acute Assessment and Plan: -continue home prednisone, Lyrica, and tramadol (7) Severe protein-calorie malnutrition: Code(s): E43 - Unspecified severe protein-calorie malnutrition Status: Acute Assessment and Plan: - dietitian following Plan DVT prophylaxis: SCDs Dispo: SNF, pending auth Code status: full code Subjective Date/time seen: 10/17/25 07:13 Interval history: This is a 75-year-old female patient who is admitted to the hospital for hypoxia and pneumonia. Patient previously seen in the emergency department on 10/05 and diagnosed with bilateral pneumonia returning back to the emergency department on 10/07 with continued difficulty breathing and new oxygen demand/hypoxia. Patient was placed on oxygen 1-2 liters/minute and initiated on levofloxacin Patient seen and examined up in chair. Doing well this morning. Requested lidocaine patch for her shoulder. Denies chest pain, SOB. Discussed plan of care including awaiting SNF auth, patient agreeable. Review of Systems Review of Systems: All systems reviewed & are unremarkable except as noted in HPI and below Exam Narrative: General: NAD Eyes: EOMI ENT: neck supple Cardiovascular: Regular rate and rhythm Respiratory: Clear to auscultation, respirations even and unlabored on RA Gastrointestinal: Soft, non tender Genitourinary: no suprapubic tenderness Musculoskeletal: R knee with mild edema with no significant tenderness, no erythema Skin: warm, dry Neuro: Alert. Psych: Mood appropriate Objective Data Vital Signs Vital Signs: Vital Signs - 24 hr 10/16/25 08:58 10/16/25 09:00 10/16/25 12:04 Temperature Pulse Rate 68 75 Respiratory Rate 18 Blood Pressure Pulse Oximetry 98 Oxygen Delivery Room Air 10/16/25 13:58 10/16/25 14:00 10/16/25 19:37 Temperature 98.5 F 98.5 F Pulse Rate 77 77 77 Respiratory Rate 18 18 18 Blood Pressure 137/68 137/68 Pulse Oximetry 99 99 99 Oxygen Delivery Room Air 10/16/25 20:00 10/16/25 20:26 10/17/25 00:00 Temperature 97.6 F Pulse Rate 78 78 72 Respiratory Rate 18 Blood Pressure 118/69 Pulse Oximetry 95 Oxygen Delivery 10/17/25 03:11 10/17/25 04:00 Temperature 97.7 F Pulse Rate 67 67 Respiratory Rate 18 Blood Pressure 155/69 H Pulse Oximetry 98 Oxygen Delivery Intake/Output Intake/Output: Intake & Output 10/14/25 10/15/25 10/16/25 10/17/25 23:59 23:59 23:59 23:59 Intake Total 1260 1290 2006 290 Output Total 2100 650 1050 300 Balance -840 640 956 -10 Meds/Results Medications: Active Medications Generic Name Dose Route Start Last Admin Trade Name Anay PRN Reason Stop Dose Admin Aspirin 81 mg 10/08/25 08:00 10/16/25 08:58 Aspirin 81 Mg Chewable Tablet PO 81 mg DAILY@0800 [facility] Administration Bisacodyl 10 mg 10/08/25 01:50 Bisacodyl 5 Mg Tablet Ec PO QAM PRN Constipation Clopidogrel Bisulfate 75 mg 10/08/25 09:00 10/16/25 08:58 Clopidogrel Bisulfate 75 Mg Tablet PO 75 mg QAM MIROSLAVA Administration Ferrous Sulfate 325 mg 10/08/25 08:00 10/16/25 16:23 Ferrous Sulfate 325 Mg Tablet PO 325 mg BIDWM MIROSLAVA Administration Heparin Sodium (Beef Lung) 50 units 10/08/25 09:00 10/16/25 08:58 Heparin Flush 50 Units/5 Ml Syringe IV PUSH 50 units QAM MIROSLAVA Administration Heparin Sodium (Beef Lung) 50 units 10/07/25 23:18 10/08/25 01:15 Heparin Flush 50 Units/5 Ml Syringe IV PUSH 50 units PRN PRN Administration after intermittent infusion Heparin Sodium (Beef Lung) 50 units 10/07/25 23:18 10/17/25 05:22 Heparin Flush 50 Units/5 Ml Syringe IV PUSH 50 units PRN PRN Administration after blood draws Heparin Sodium (Porcine) 500 units 10/07/25 23:18 Heparin Sodium Lock Flush 500 Units/5 Ml Syringe IV PUSH PRN PRN see comments below Hydrochlorothiazide 25 mg 10/17/25 09:00 Hydrochlorothiazide 25 Mg Tablet PO QAM MIROSLAVA Lidocaine 1 patch 10/14/25 09:00 10/16/25 09:00 Lidocaine 5% Patch TRANSDERM 1 patch DAILY MIROSLAVA Administration Menthol/Methyl Salicylate 1 applic 10/08/25 01:50 Menthol 10% / Methyl Salicylate 15% 57 Gm Tube TOPICAL BID PRN muscle pain Metoclopramide HCl 5 mg 10/08/25 06:30 10/17/25 05:23 Metoclopramide Hcl 5 Mg Tablet PO 5 mg BIDAC MIROSLAVA Administration Metoprolol Succinate 25 mg 10/08/25 09:00 10/16/25 08:58 Metoprolol Succinate Ext Rel 25 Mg Tabcr PO 25 mg QAM MIROSLAVA Administration Pantoprazole Sodium 40 mg 10/08/25 09:00 10/16/25 08:58 Pantoprazole 40 Mg Tablet PO 40 mg DAILY MIROSLAVA Administration Polyethylene Glycol 17 gm 10/08/25 09:00 10/16/25 08:59 Polyethylene Glycol 3350 17 Gm Powd.Pack PO 17 gm DAILY MIROSLAVA Administration Prednisone 10 mg 10/08/25 08:00 10/16/25 08:58 Prednisone 10 Mg Tablet PO 10 mg DAILY@0800 MIROSLAVA Administration Pregabalin 50 mg 10/08/25 09:00 10/16/25 16:23 Pregabalin (*Crx) 50 Mg Capsule PO 50 mg BID MIROSLAVA Administration Senna 8.6 mg 10/08/25 21:00 10/16/25 20:29 Sennosides 8.6 Mg Tablet PO Not Given HS MIROSLAVA Sodium Chloride 10 ml 10/08/25 06:00 10/17/25 05:22 Central Line Flush IV PUSH 10 ml Q8HR MIROSLAVA Administration Tramadol HCl 50 mg 10/08/25 01:50 10/14/25 15:48 Tramadol Hcl (*Crx) 50 Mg Tablet PO 50 mg Q12H PRN Administration Pain 4-6 Radiology Results: ITS Impressions Abdomen/Pelvis CT 10/07/25 20:32 IMPRESSION: 1. Chest X-Ray 10/11/25 12:20 IMPRESSION: 1. Persistent left basilar atelectasis and/or airspace disease, with small probable effusion. 2. Improving but persistent interstitial pulmonary edema and/or pneumonitis. Knee CT 10/12/25 15:14 IMPRESSION: Dislocated patella. Complex fluid within the joint space which may reflect posttraumatic hemorrhage, distinction from infection is limited. Clinical correlation is required. Clinically if there is concern for infection contrast-enhanced MRI is recommended Knee MRI 10/14/25 13:57 IMPRESSION: 1. Advanced, grade 4 degenerative changes of the 3 compartments of the knee joint as described above. Minimal medial subluxation at the knee joint. 2. Severe degenerative changes and chronic complex tear of the medial meniscus and lateral meniscus. 3. Large effusion in the knee joint with debris acute osteochondral loose bodies. Labs Labs: Laboratory Results - last 24 hr 10/17/25 04:57 WBC 26.7 H RBC 2.84 L Hgb 9.2 L Hct 29.8 L MCV 104.9 H MCH 32.4 MCHC 30.9 L RDW 18.4 H Plt Count 519 H MPV 8.9 Immature Gran % (Auto) Not Reportable Neut % (Auto) Not Reportable Lymph % (Auto) Not Reportable [place] % (Auto) Not Reportable Eos % (Auto) Not Reportable Baso % (Auto) Not Reportable Lymph # (Auto) Not Reportable [place] # (Auto) Not Reportable Eos # (Auto) Not Reportable Baso # (Auto) Not Reportable Abs Immat Gran (auto) Not Reportable Absolute Neuts (auto) Not Reportable Absolute Nucleated RBC Not Reportable Total Counted 100 Neutrophils % (Manual) 64 Band Neutrophils % 2 Lymphocytes % (Manual) 28.0 Monocytes % (Manual) 5 Basophils % (Manual) 1 Nucleated RBC % Not Reportable Abs Neuts (Manual) 17.62 H Abs Lymphs (Manual) 7.47 H Abs Monocytes (Manual) 1.33 H Abs Basophils (Manual) 0.26 H Nucleated RBCs 1 Smudge Cells Few Platelet Estimate Increased Large Platelets Present Hypochromasia 1+ Basophilic Stippling Occasional Anisocytosis 1+ Macrocytosis Occasional Schistocytes None seen Quality VTE Prophylaxis VTE prophylaxis: mechanical ordered
[2025-10-17] MEDS: ASPIRIN 81 MG CHEWABLE TABLET PO (09:31)
[2025-10-17] MEDS: FERROUS SULFATE 325 MG TABLET PO ×2 (09:31→17:53)
[2025-10-17] MEDS: CLOPIDOGREL BISULFATE 75 MG TABLET PO (09:32)
[2025-10-17] MEDS: LIDOCAINE 5% PATCH 1 PATCH TRANSDERM (09:32)
[2025-10-17] MEDS: PANTOPRAZOLE 40 MG TABLET PO (09:32)
[2025-10-17] MEDS: METOPROLOL SUCCINATE EXT REL 25 MG TABCR PO (09:32)
[2025-10-17] MEDS: PREGABALIN (*CRX) 50 MG CAPSULE PO ×2 (09:32→17:53)
[2025-10-17 12:00] LABS: Iron 45 ug/dL (37-170)
[2025-10-17 12:53] LABS: Percent Iron Saturation 22 % (20-50)
[2025-10-17 14:24] LABS: Vitamin B12 935.0 pg/mL (239-931)
[2025-10-17 15:16] LABS: Ferritin 1120.00 ng/mL (11.1-264)
[2025-10-18] VITALS: PULSE 69
[2025-10-18 04:00] VITALS: PULSE 60
[2025-10-18 05:47] VITALS: BP 156/70; PULSE 63; RESP 18; TEMP 36.6; O2SAT 97
[2025-10-18] MEDS: METOCLOPRAMIDE HCL 5 MG TABLET PO (06:23)
[2025-10-18] MEDS: CENTRAL LINE FLUSH 10 ML IV PUSH (06:23)
[2025-10-18 06:36] LABS: Hematocrit 28.6 % (37.0-47.0); Hemoglobin 8.9 g/dL (12.0-15.0); Mean Corpuscular HGB Conc 31.1 g/dl (32-36); Mean Corpuscular Hemoglobin 32.4 pg (26-34); Mean Corpuscular Volume 104.0 fl (80-100); Platelet Count Result 480 k/mm3 (150-375); Red Blood Count 2.75 M/mm3 (4.2-5.4); White Blood Count 24.4 K/mm3 (4.5-10.0)
[2025-10-18 07:30] LABS: Band Neutrophils Percent 0 % (0-6); Eosinophils Absolute Manual 0.48 K/mm3 (0.02-0.50); Eosinophils Percent Manual 2 % (0-4); Lymphocytes Absolute Manual 9.27 K/mm3 (1.1-4.5); Lymphocytes Percent Manual 38 % (18-44); Monocytes Absolute Manual 1.46 K/mm3 (0.1-0.90); Monocytes Percent Manual 6 % (3-9); Neutrophils Absolute Manual 13.17 K/mm3 (1.3-6.7); Neutrophils Percent Manual 54 % (46-73); Smudge Cells FEW; Total Cells Counted 100
[2025-10-18 07:31] LABS: Hypochromasia 1+
[2025-10-18 07:32] LABS: Anisocytosis 1+; Polychromasia 1+; Stomatocytes Occasional; Target Cells Occasional
[2025-10-18 07:34] LABS: Basophilic Stippling Occasional
[2025-10-18 07:35] LABS: Schistocytes None Seen
[2025-10-18 08:00] VITALS: PULSE 72
[2025-10-18 08:31] VITALS: PULSE 63
[2025-10-18] MEDS: CLOPIDOGREL BISULFATE 75 MG TABLET PO (08:31)
[2025-10-18] MEDS: PREGABALIN (*CRX) 50 MG CAPSULE PO (08:31)
[2025-10-18] MEDS: METOPROLOL SUCCINATE EXT REL 25 MG TABCR PO (08:31)
[2025-10-18] MEDS: LIDOCAINE 5% PATCH 1 PATCH TRANSDERM ×2 (08:31→08:32)
[2025-10-18] MEDS: FERROUS SULFATE 325 MG TABLET PO (08:31)
[2025-10-18] MEDS: PANTOPRAZOLE 40 MG TABLET PO (08:31)
[2025-10-18] MEDS: ASPIRIN 81 MG CHEWABLE TABLET PO (08:35)
--- NOTE | 2025-10-18 11:05 | P.DS_ITS ---
DS: Admitting Diagnosis Discharge Date 10/18/25 Admitting Diagnosis Pneumonia DS: Discharge Diagnosis Discharge Diagnosis (1) Leukocytosis: Code(s): D72.829 - Elevated white blood cell count, unspecified Status: Acute (2) Pneumonia: Qualifiers: Laterality: bilateral Lung location: lower lobe of lung Pneumonia type: due to unspecified organism Qualified Code(s): J18.9 - Pneumonia, unspecified organism Code(s): J18.9 - Pneumonia, unspecified organism Status: Acute (3) Joint swelling: Code(s): M25.40 - Effusion, unspecified joint Status: Acute (4) Congestive heart failure: Code(s): I50.9 - Heart failure, unspecified Status: Acute (5) Hypertension: Qualifiers: Hypertension type: primary hypertension Qualified Code(s): I10 - Essential (primary) hypertension Code(s): I10 - Essential (primary) hypertension Status: Acute (6) Rheumatoid arthritis: Qualifiers: Rheumatoid arthritis location: unspecified site Rheumatoid factor presence: unspecified presence Qualified Code(s): M06.9 - Rheumatoid arthritis, unspecified Code(s): M06.9 - Rheumatoid arthritis, unspecified Status: Acute (7) Severe protein-calorie malnutrition: Code(s): E43 - Unspecified severe protein-calorie malnutrition Status: Acute DS: Summary Hospital Course Reason for hospitalization: Weakness Hospital Course: Per HPI: This is a 75-year-old wheelchair depended patient was a history of having rheumatoid arthritis, pneumonia and a CVA. The patient was recently seen in ER on 10/05/2025 and was diagnosed with pneumonia. She was started on antibiotics and stated that she has been taking them routinely. She has been complaining of having intermittent left lower chest pain that she describes is being sharp. The patient stated that that discomfort has not gone away over the last couple days. She denies any shortness of breath, chills, nausea, vomiting, or fevers. The patient has a history of having DVTs and her anticoagulation was stopped approximately a year ago. Her white count is normal. Her H&H is 8.5 and 27.0 which is her baseline. Chest x-ray was read as cardiomegaly, severe ath erosclerotic aortic and mild congestive changes on lungs as well bilateral pleural effusions. CT of the abdomen and pelvis was read as no acute findings on the CT examination of the abdomen pelvis. Cardiomegaly with bilateral pleural effusions suggesting congestive heart failure. The patient was given Levaquin in the emergency room. The patient was placed on oxygen at 2 L per nasal cannula however her O2 saturation have been in the upper 90s. 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 She was admitted from a longterm facility with progressive weakness, hypoxia, and a recent diagnosis of bilateral pneumonia. On admission, she was mildly hypoxic and required supplemental oxygen, with imaging revealing cardiomegaly, bilateral pleural effusions, and mild pulmonary congestion, consistent with acute on chronic heart failure exacerbation. She was started on IV furosemide with subsequent improvement in lower extremity edema, and her diuretic regimen was later transitioned back to oral hydrochlorothiazide per her preference as her volume status stabilized. Her pneumonia was managed initially with IV levofloxacin, but antibiotics were discontinued after a short course as cultures remained negative, her WBC normalized initially, and her respiratory status improved. She was successfully weaned off supplemental oxygen, and repeat chest imaging showed improving but persistent interstitial changes and small effusions. Throughout her stay, she remained afebrile and hemodynamically stable. During hospitalization, she developed marked leukocytosis (WBC peaking at 27.6K), macrocytic anemia, and thrombocytosis. Infectious workup, including blood and urine cultures, was negative. ID and hematology consultations attributed her leukocytosis to chronic steroid use (prednisone 10 mg daily, with recent intra-articular steroid injection), underlying RA, and recent infection, rather than ongoing sepsis or hematologic malignancy. Flow cytometry and further anemia workup were initiated for outpatient follow-up. Her right knee effusion, with a history of prior septic arthritis and multiple aspirations, was evaluated by orthopedics. MRI demonstrated advanced tricompartmental osteoarthritis, chronic meniscal tears, large effusion with debris, and chronic patellar dislocation. Synovial fluid analysis was negative for organisms, with many WBCs and no crystals; CRP was normal, but ESR remained markedly elevated. The clinical picture was most consistent with an RA flare rather than active infection. She received a corticosteroid injection with symptomatic improvement, and was maintained on a hinged knee brace, WBAT, and PT/OT. Other chronic issues managed included hypertension (continued on metoprolol and HCTZ), severe protein-calorie malnutrition (dietitian following, PEG feeds mary nued), and chronic anemia (stable, no active bleeding). She remained on DVT prophylaxis with SCDs, as anticoagulation was contraindicated. Her code status remained full code, and discharge planning was coordinated for return to SNF pending authorization. By discharge, the patient was stable on room air, with improved lower extremity edema, controlled pain, and no evidence of active infection. She was agreeable to the plan of care and will follow up with hematology, orthopedics, and rheumatology as an outpatient. Status at Discharge Functional status at discharge: uses cane/walker Overall status at discharge: patient is progressing back to baseline Time Spent with Patient Time attestation: Total time spent providing and/or coordinating discharge services: 30 Exam Narrative: General: NAD Eyes: EOMI ENT: neck supple Cardiovascular: Regular rate and rhythm Respiratory: Clear to auscultation, respirations even and unlabored on RA Gastrointestinal: Soft, non tender Genitourinary: no suprapubic tenderness Musculoskeletal: R knee with mild edema with no significant tenderness, no erythema Skin: warm, dry Neuro: Alert. Psych: Mood appropriate DS: Data Data Completed and Pending Pending studies at discharge: Pending at discharge 10/15/25 15:41 Surgical [PTH] Routine Labs on day of discharge: Labs from last 24 hours 10/18/25 10/15/25 06:22 16:38 WBC 24.4 H RBC 2.75 L Hgb 8.9 L Hct 28.6 L MCV 104.0 H MCH 32.4 MCHC 31.1 L RDW 18.5 H Plt Count 480 H MPV 9.1 Immature Gran % (Auto) Not Reportable Neut % (Auto) Not Reportable Lymph % (Auto) Not Reportable [place] % (Auto) Not Reportable Eos % (Auto) Not Reportable Baso % (Auto) Not Reportable Lymph # (Auto) Not Reportable [place] # (Auto) Not Reportable Eos # (Auto) Not Reportable Baso # (Auto) Not Reportable Abs Immat Gran (auto) Not Reportable Absolute Neuts (auto) Not Reportable Absolute Nucleated RBC Not Reportable Total Counted 100 Neutrophils % (Manual) 54 Band Neutrophils % 0 Lymphocytes % (Manual) 38 Monocytes % (Manual) 6 Eosinophils % (Manual) 2 Nucleated RBC % Not Reportable Abs Neuts (Manual) 13.17 H Abs Lymphs (Manual) 9.27 H Abs Monocytes (Manual) 1.46 H Absolute Eos (Manual) 0.48 Atypical Lymphocytes Present Smudge Cells Few Platelet Estimate Slightly increased Large Platelets Present Polychromasia 1+ Hypochromasia 1+ Basophilic Stippling Occasional Anisocytosis 1+ Target Cells Occasional Stomatocytes Occasional Schistocytes None seen Iron 45 TIBC 209 L % Saturation 22 Ferritin 1120.00 H Vitamin B12 935.0 H Folate 7.2 Preliminary micro results at discharge 10/12/25 15:53 Blood Culture - Preliminary Blood 10/12/25 16:01 Blood Culture - Preliminary Blood Discharge Plan Discharge Attending physician on discharge: Kasi Cruz Consulting providers: Joon Tijerina; Shiraz Chambers; Rosemarie Doan; Juancarlos Burk; Ilana Obregon Discharging Clinician: Joon Tijerina Anticipated Discharge Date/Time: 10/18/25 11:01 Patient Disposition: SNF Activity: as tolerated Diet: regular Discharge Instructions: Discharge disposition: [facility] Take medications as prescribed Monitor blood pressures Take caution while standing, rising, or moving Change positions slowly taking a break between each position change If you standing feel dizzy sit back down and take a break Encouraged to continue with yearly vaccinations Return to the emergency department if you develop sudden shortness of breath, chest pain, nausea, vomiting, upset stomach or intractable diarrhea Return to the emergency department if you develop fever greater than 101.5 Follow-up with the primary care physician within 1-2 weeks Follow up with Dr. Burk of Hematology for further workup of your elevated white blood cell count which may include Flow Cytometric analysis. Thank you for [facility] for your healthcare needs Patient Instructions: Antibiotic Form Patient Language: Dutch Stand Alone Forms: General Discharge Information Follow-up/Referrals: Juancarlos Burk MD [Physician, Hematology] - Call for Appointment Referral Note: 1 month for follow-up for abnormal CBC Collado,MD Kobe [Primary Care Provider, Unknown] Discharge Medications: Continued prednisone 20 mg tablet 10 mg PO DAILY aspirin 81 mg tablet 81 mg PO DAILY metoprolol succinate [Toprol XL] 25 mg Tablet Extended Release 24 Hr 25 mg PO QAM Qty: 60 0RF bisacodyl [Laxative (bisacodyl)] 5 mg Tablet,Delayed Release (Dr/Ec) 10 mg PO QAM PRN (Reason: Constipation) Qty: 30 0RF ferrous sulfate 325 mg (65 mg iron) Tablet,Delayed Release (Dr/Ec) 325 mg PO BIDWM Qty: 60 0RF pregabalin 50 mg capsule 50 mg PO BID pantoprazole 40 mg tablet,delayed release (DR/EC) 40 mg PO DAILY sennosides [Senokot] 8.6 mg Tablet 8.6 mg PO HS 7 Days Qty: 7 0RF clopidogrel 75 mg Tablet 75 mg PO QAM 30 Days Qty: 30 0RF polyethylene glycol 3350 [Miralax] 17 gram/dose Powder 17 g PO DAILY azithromycin 250 mg tablet 250 mg PO DAILY 4 Days Qty: 4 0RF Patient Comments: last dose 10/09 Rx Instructions: begin taking 10/06/25 metoclopramide HCl 5 mg tablet 5 mg PO BID Bengay Ultra Strength 4-30-10 % cream 1 applic topical BID PRN (Reason: muscle pain) Discontinued hydrochlorothiazide 12.5 mg capsule 25 mg PO DAILY tramadol 50 mg Tablet 50 mg PO Q12H PRN (Reason: Pain 4-6) 10 Days Qty: 12 0RF acetaminophen 325 mg tablet 650 mg PO Q4H PRN (Reason: pain) diclofenac-benzalkonium chlor 1-0.13 % kit,gel and towelette 1 g topical TID Rx Instructions: apply to single elbow, wrist or hand; for hand includes palm/fingers/back of hand Date of admission: 10/08/25 08:15 Primary Care Provider: Tobias,[facility] Admitting Provider: Kasi Cruz Attending physician on admission: Kasi Cruz Condition: Stable Quality VTE Prophylaxis VTE prophylaxis: mechanical ordered
[2025-10-18] MEDS: HEPARIN SODIUM LOCK FLUSH 500 UNITS/5 ML SYRINGE IV PUSH (12:04)
[2025-10-18] MEDS: NEOMYCIN/POLYMYXIN/BACITRACIN OINTMENT PACKET 1 PACKET (12:07)
== END 2025-10-18 13:37 | DRG 193 ==
LOC: ANHED 18:44 → ANH2MED 21:56
PROVIDERS: Internal Medicine Hematology & Oncology; Nurse Practitioner; Nurse Practitioner Family; Physician Assistant; Admitting Provider Internal Medicine; Emergency Provider Student in an Organized Health Care Education/Training Program; PCP Family Medicine; Visit Provider Physician Assistant
DX: J18.9 Pneumonia, unspecified organism (principal); E43 Unspecified severe protein-calorie malnutrition; I50.33 Acute on chronic diastolic (congestive) heart failure; E87.1 Hypo-osmolality and hyponatremia; R09.02 Hypoxemia; I11.0 Hypertensive heart disease with heart failure; M17.11 Unilateral primary osteoarthritis, right knee; M25.461 Effusion, right knee; E78.5 Hyperlipidemia, unspecified; D72.829 Elevated white blood cell count, unspecified; E83.51 Hypocalcemia; D75.839 Thrombocytosis, unspecified; D53.9 Nutritional anemia, unspecified; M06.9 Rheumatoid arthritis, unspecified; Z86.718 Personal history of other venous thrombosis and embolism; Z86.73 Personal history of transient ischemic attack (TIA), and cerebral infarction without residual deficits; Z68.25 Body mass index [BMI] 25.0-25.9, adult; Z93.1 Gastrostomy status; Z96.652 Presence of left artificial knee joint; Z99.3 Dependence on wheelchair
CPT/HCPCS: 20610; 36415; 71045; 73700; 73721; 74177; 80053; 81001; 81003; 82607; 82728; 82746; 83540; 83550; 83605; 83735; 83880; 84145; 85025; 85652; 86140; 87040; 89051; 89060; 94667; 96365; 96375; 97110; 97116; 97162; 97166; 97530; 97535; 99285; A9270; G0378; J1642; J1938; J1956; J7512; Q9967